=== PATIENT | female | born 1945 | race Caucasian/White ===

== ENCOUNTER 2023-07-28 00:15 | Inpatient (IN) | payer MEDICARE, BC, SELFPAY ==
[2023-07-28] VITALS (7 sets, daily range): BP systolic 127–172; BP diastolic 54–63; PULSE 64–74; RESP 16–18; TEMP 36.2–36.9; O2SAT 97–100; BMI 30.4
--- NOTE | 2023-07-28 00:38 | HP.PCM.HOS_ITS ---
HPI - General General Date of Admission: 07/28/23 Date of Service: 07/28/23 Chief Complaint: Cough, N/V, + COVID diagnosis HPI Narrative The patient is a 77 y/o F w/ PMHx: Chronic hyponatremia (prior rx ordered for sodium tablets but no obvious labs consistent with hyponatremia upon review of outside records thus unclear), Hypothyroidism, HLD, HTN, Anxiety and Depression who presents to the [facility] as a direct admission from [facility] on 07/28/23 w/ history of COVID symptom onset approximately 11 days prior with persistent cough nonproductive for at least a week with fatigue and malaise however the last 48 hours patient has had nausea, emesis, dizziness, lightheadedness especially with activity prompting eventual ED evaluation to be cautious. She notes she also had some mild loose stools, sore throat, muscle aches and chills but no fevers nor any headaches nor any significant alteration to taste or smell but did have a dry congestion. Patient presented to the outside facility [facility] ED on 07/27/2023 and work-up at outside ED included VS upon presentation initially notable for BP 194/68 but most recently included HR 68, RR 18, BP 133/71, 99% on RA, CBC with WBC 3.8, hemoglobin 13.3, MCV 80.7, platelet 282 without marked shift, high-sensitivity troponin 10.8, D-dimer 287, lipase 33, magnesium 1.4, CMP with sodium 119, potassium 3.5, chloride 82, BUN/creatinine 7/1.0, glucose 133, hepatic profile unremarkable, chest x-ray with slight cardiomegaly with no acute cardiopulmonary findings otherwise. From review of [facility] records patient had a COVID-19 positive result 07/24/2023. From review of [facility] records patient also with CMP with sodium on 07/16/2023 NA 134 and prior to this 03/21/2023 NA 136. In the ED patient administered 750 mL NS in the ED with repeat Na 119, additionally administered 40 mEq KCl, Magnesium 2 gm IV x 1, zofran 4 mg IV x 1, morphine 2 mg IV x 1 for BL LE leg cramps, tylenol 650 mg po x 1. Home medications per [facility] most recent records (unverified): Amlodipine 5 mg 1 p.o. daily Atorvastatin 20 mg p.o. daily Azelastine nasal spray 1 spray nightly as needed Biotin 1 tablet p.o. daily Caltrate 600 plus D oral tablet 1 tab p.o. twice daily Cyanocobalamin 1000 mcg per mill injection solution with 1 mL subcutaneous injection monthly Colace stool softener 100 mg oral capsule 1 p.o. twice daily as needed constipation Hydrochlorothiazide 25 mg p.o. daily Levothyroxine 112 mcg daily Meloxicam 15 mg oral tablet p.o. daily Olmesartan 40 mg p.o. daily Sertraline 50 mg tab 1 p.o. daily Sodium chloride 1000 mg oral tablets take 1 tablet p.o. daily except 2 tablets on Sunday, Sunday, Sunday [facility] Medical History Allergic rhinitis Anxiety and depression [place] disease Chronic hyponatremia COVID-19 History of endometrial biopsy HTN (hypertension) Hyperlipidemia Hypothyroidism Home Medications Valsartan/Hydrochlorothiazide [Diovan Hct 320-25 Mg Tablet] 1 tab PO DAILY 07/26/15 [History Last Taken 07/27/23] furosemide 20 mg tablet 20 mg PO DAILY 07/26/15 [History Last Taken 07/27/23] levothyroxine 88 mcg tablet 88 mcg PO DAILY 07/26/15 [History Last Taken 07/27/23] sertraline 25 mg tablet (Zoloft) 25 mg PO DAILY 07/26/15 [History Last Taken 07/27/23] amlodipine 5 mg tablet 5 mg PO DAILY bp 07/28/23 [History Last Taken 07/27/23] atorvastatin 20 mg tablet 20 mg PO DAILY hld 07/28/23 [History Last Taken 07/25/23] meclizine 12.5 mg tablet 12.5 mg PO TID PRN dizzy 07/28/23 [History Last Taken 07/27/23] meloxicam 15 mg tablet 15 mg PO DAILY pain 07/28/23 [History Last Taken 07/27/23] olmesartan 40 mg tablet 40 mg PO DAILY see 07/28/23 [History Last Taken Unknown] sodium chloride 1,000 mg soluble tablet 1,000 mg PO DAILY 07/28/23 [History Last Taken 07/27/23] Allergy/AdvReac Type Severity Reaction Status Date / Time propoxyphene HCl Allergy Nausea Verified 07/28/23 01:03 [From Darvon] codeine AdvReac Intermediate Nausea Verified 07/28/23 01:03 simvastatin AdvReac Intermediate Myalgia Verified 07/28/23 01:03 Family History (Updated 07/27/23 @ 23:[address] Madhavi Pate MD) Mother CVA (cerebral vascular accident) Father [place] disease Son Kimberlee disease Brother Heart disease Hypertension Daughter Lupus Sister Melanoma Surgical History H/O cone biopsy of cervix H/O dilation and curettage History of tonsillectomy Hx of myringotomy Hx of tubal ligation S/P thyroid biopsy Social History (Updated 07/27/23 @ 23:[address] Madhavi Pate MD) household members: spouse Smoking Status: Never smoker alcohol intake: never substance use type: does not use ROS ROS Narrative Admission Review of Systems: CONSTITUTIONAL: No weight loss, fever, + chills, weakness or fatigue. HEENT: + Congestion, sore throat. Eyes: No visual loss, blurred vision, double vision or yellow sclerae. Ears, Nose, Throat: No hearing loss, sneezing. SKIN: No rash or itching, lesions, wounds. CARDIOVASCULAR: No chest pain, chest pressure or chest discomfort, palpitations, edema, orthopnea, syncopal events. RESPIRATORY: + cough, No marked sputum, dyspnea, wheezing, hemoptysis. GASTROINTESTINAL: + anorexia, nausea, vomiting, diarrhea, No abdominal pain, melena, BRBPR. GENITOURINARY: No dysuria, frequency, urgency or retention. NEUROLOGICAL: + No dizziness/lightheadedness. No headache, syncope, paralysis, ataxia, numbness or tingling in the extremities, focal weakness, change in bowel or bladder control, seizure. MUSCULOSKELETAL: + muscle, back pain, joint pain or stiffness. HEMATOLOGIC: No anemia, bleeding or bruising. LYMPHATICS: No enlarged nodes. No history of splenectomy. PSYCHIATRIC: + history of depression or anxiety. ENDOCRINOLOGIC: No reports of sweating, cold or heat intolerance. No polyuria or polydipsia. ALLERGIES: + rhinitis. Physical Exam Narrative Physical Examination: General: Awake, alert, oriented x 3 and cooperative, seated upright in the MS bed, fatigued and ill-appearing, holding emesis bag. Skin: Normal color, normal turgor, no icterus, no cyanosis. HEENT: AT/NC, EOMI, PERRLA, dry MM, no carotid bruits or JVD noted. Lungs: Diffusely diminished, greater bases, increased respiratory rate, no rales, ronchi or wheezing. Heart: Regular rate with regular rhythm; no gallop, rub audible. Abdomen: Soft, obese, no obvious TTP, ND, distant hyperactive bowel sounds, no appreciated HSM. Extremities: No cyanosis, clubbing, or edema. Neurological: Patient awake, alert, oriented as noted, cognitive function intact; pupils equally reactive to light and accommodation, cranial nerves II- XII grossly normal, moving all 4 extremities, no focal deficits, strength moderately to severely global decrease secondary to acute presentation. Psychiatric: Affect appears fatigued, ill-appearing, no acute evidence of depressive or anxiety feelings but does have underlying history. Assessment & Plan Assessment/Plan (1) Hyponatremia: (2) COVID-19: PLAN: Plan The patient is a 77 y/o F w/ PMHx: Chronic hyponatremia (on chronic salt tablets per patient for the last 6 months at least), Hypothyroidism, HLD, HTN, Anxiety and Depression who presents to the [facility] as a direct admission from [facility] on 07/28/23 w/ history of COVID diagnosis approximately 10 days prior with persistent cough nonproductive for at least a week with fatigue and malaise however the last 48 hours patient has had nausea, emesis, dizziness, lighthead edness especially with activity prompting eventual ED evaluation to be cautious. #1. Acute Viral Syndrome, COVID-19 with intractable nausea, emesis, cough: Will admit to the MS telemetry, given timeline >10 days passed does not need to be on precautions however given ongoing symptoms will also obtain full respiratory panel to assure no additional viral illness contributing, currently appropriate on room air, PRN albuterol, HOB, IS parameters, will obtain D-dimer, procalcitonin, CRP, CPK, Ferritin, LDH, trop and BNP to be cautious, continue supportive care, judicious hydration, allow clears only, maintain on IV PPI until assure oral intake tolerated, closely monitor for worsening, given appropriate oxygentation no needed for steroids at this time and also given timeline not appropriate candidate for antivirals. #2. Acute Hyponatremia on Chronic, suspected hypovolemic component in addition to the fact patient with intractable N/V has not been taking her chronic salt tables: Admission Na 119, baseline appearance as noted 134-136 but she had been on chronic salt tablets with these levels, will add back her tablets once nausea/emesis improving, in interim will place on judicious IVFs, continue to closely monitor, although suspect etiology as noted will obtain FeNa, UOsm, if not improving low threshold to involve nephrology. #3. Hypomagnesia: Magnesium from outside facility 1.4, administered IV magnesium, repeat magnesium level in AM. #4. Hypothyroidism: We will continue patient on levothyroxine regimen, TSH and free T4 requested given hyponatremia presentation although suspected primarily hypovolemic etiology. #5. Hypertension: Continue home regimen including amlodipine, olmesartan, given hyponatremia we will hold hydrochlorothiazide with hydration as noted given suspected hypovolemic etiology, may add back once sodium is appropriate, PRN hydralazine. Patient also notes she is on diovan in addition. Given she is already on an ARB, this should be discontinued to avoid duplication. #6. Hyperlipidemia: We will continue patient on statin therapy. #7. Anxiety and depression: Patient is on very low-dose sertraline regimen, given significant hyponatremia although suspected hypovolemia will temporally hold as could be contributing. 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 #9. Allergic rhinitis: If needed may add patient azelastine nasal spray. #10. DVT prophylaxis: Lovenox. #11. CODE status: Patient NEAL is her son Dwain and living will is currently in place. Discussed CODE status at length including difference between FULL code, DNR-CCA and DNR-CC status. Following discussions about the differences in these status, requested DNR-CCA, no intubation status. Advanced Care Planning Face to Face Time: 16 minutes. Charges/Coding Visit Charges Inpatient E&M: 90075 Init Hosp L3 Procedures Hospitalists Procedures: 14457 Advncd Care Plan 30 Min
[2023-07-28] MEDS: proCHLORPERazine 10 MG/2 ML Vial 5 MG IV (00:54)
[2023-07-28] MEDS: 0.9% Normal Saline (1000mL) 1,000 ML 100 ML IV (01:20)
[2023-07-28] MEDS: Pantoprazole Sodium 40 MG in 0.9% Normal Saline (100mL MB+) 100 ML 330 MG IV ×3 (01:45→21:35)
[2023-07-28] MEDS: hydrALAZINE 20 MG/ML Vial 10 MG IV (01:45)
[2023-07-28] MEDS: 0.9% Saline Lock 10 ML Syringe IV (01:46)
[2023-07-28 02:15] LABS: Absolute Lymphocyte Count 0.52 X10^3/uL (0.83-4.51); Absolute Neutrophil Count 4.4 X10^3/uL (2.0-7.7); Basophil# 0.01 X10^3/uL; Basophil% 0.2 % (0-1); Eosinophil# 0.01 X10^3/uL; Eosinophils% 0.2 % (0-5); Hematocrit 38.7 % (37-47); Hemoglobin 13.8 g/dL (12.0-15.0); Lymphocyte # 0.52 X10^3/ul (0.83-4.51); Lymphocyte % 10.1 % (19-41); Mean Corp Hgb Conc 35.7 g/dL (32-36); Mean Corpuscular Hgb 28.5 pg (27.0-32.0); Mean Platelet Vol. 8.8 fl (6.2-12.0); Monocyte# 0.16 X10^3/uL; Monocyte% 3.1 % (0-10); NRBC Flagged by Analyzer 0 % (0-5); Neutrophil # 4.44 X10^3/uL (2.7-7.7); POSITIVE DIFFERENTIAL YES; Platelet Count 277 K/mm3 (150-450); RBC Distribution Width CV 11.5 % (11.6-14.6); RBC Distribution Width SD 33.4 fl (35.1-43.9); Red Blood Count 4.84 M/mm3 (4.2-5.4); White Blood Count 5.2 K/mm3 (4.4-11.0)
[2023-07-28 02:18] LABS: Differential Indicated SCAN CRITERIA MET
[2023-07-28 02:35] LABS: D-Dimer Quantitative (DVT/PE) 0.68 FEU/ug/m (0.27-0.49)
[2023-07-28 02:40] LABS: BNP,B-Type NATRIURETIC PEPTIDE 111.9 pg/mL (0-100); CPK Total, Creatine Kinase 229 U/L (26-192)
[2023-07-28 02:43] LABS: Differential Comment SCANNED
[2023-07-28 02:51] LABS: Anion Gap 10 (5-15); BUN 7 mg/dL (7-18); BUN/Creat Ratio 9.6 RATIO (10-20); CRP < 2.90 mg/L (0.0-3.0); Calcium,Total 8.7 mg/dL (8.5-10.1); Chloride 84 mmol/L (98-107); Creatinine, Serum 0.73 mg/dL (0.55-1.02); EST Glomerular Filtration Rate 82 mL/min (>60); Est Glom Filt Rate - Afr Amer 99 mL/min (>60); Estimated Creatinine Clearance 41.05 ml/min; Ferritin 316 ng/mL (8-252); Glucose 160 mg/dL (74-106); LDH 185 U/L (84-246); Potassium 2.9 mmol/L (3.5-5.1); Sodium Level 119 mmol/L (136-145); Troponin-I HS 28 pg/mL (3.0-54.0)
[2023-07-28 03:04] LABS: Procalcitonin < 0.01 ng/mL (0.00-0.09)
[2023-07-28] MEDS: Potassium Chloride 10mEq/100mL 10 MEQ/100 ML IV.SOLN. 100 MEQ IV BOLUS ×4 (04:08→09:06)
[2023-07-28] MEDS: Ondansetron 4 MG/2 ML Vial IV (04:14)
[2023-07-28] MEDS: Levothyroxine 112 MCG Tablet PO (04:14)
[2023-07-28] MEDS: Acetaminophen 325 MG Tablet 650 MG PO (04:15)
[2023-07-28] MEDS: Sodium Chloride 1 GM Tablet PO ×2 (04:15→09:12)
[2023-07-28 07:03] LABS: Urine Sodium 98 mmol/L (Not Establ.)
[2023-07-28 07:19] LABS: AST(SGOT) 28 U/L (15-37); Alanine Aminotransfer ALT/SGPT 23 U/L (13-56); Albumin, Serum 3.8 g/dL (3.2-5.0); Alkaline Phosphatase 68 U/L (45-117); Anion Gap 11 (5-15); BUN 8 mg/dL (7-18); BUN/Creat Ratio 9.5 RATIO (10-20); Bilirubin, Direct 0.19 mg/dL (0.00-0.30); Calcium,Total 8.3 mg/dL (8.5-10.1); Chloride 85 mmol/L (98-107); Creatinine, Serum 0.84 mg/dL (0.55-1.02); EST Glomerular Filtration Rate 69 mL/min (>60); Est Glom Filt Rate - Afr Amer 84 mL/min (>60); Estimated Creatinine Clearance 48.87 ml/min; Globulin 3.2 g/dL (2.2-4.2); Glucose 154 mg/dL (74-106); Magnesium 2.1 mg/dL (1.6-2.6); Potassium 3.1 mmol/L (3.5-5.1); Sodium Level 121 mmol/L (136-145); T4 Free Direct 1.31 ng/dL (0.76-1.46); Thyroid Stim Hormone (TSH) 0.55 uIU/mL (0.358-3.74)
--- NOTE | 2023-07-28 07:30 | PCM.PN.HOSP ---
Reason for Visit Reason for Visit: Diagnoses Hypo-osmolality and hyponatremia (07/28/23) COVID-19 (07/28/23) Subjective Subjective Follow-up for COVID-19 and hyponatremia Objective Data Objective Data Vital Signs: Vital Signs Temp Pulse Resp BP Pulse Ox O2 Del Method O2 Flow Rate 98 F 74 16 127/56 H 100 Nasal Cannula 2 07/28/23 04:06 07/28/23 04:06 07/28/23 04:06 07/28/23 04:06 07/28/23 04:06 07/28/23 04:06 07/28/23 04:06 Oxygen Flow Rate (L/min) 2 Oxygen Delivery Method Nasal Cannula Weight: 182 lb 15.739 oz Body Mass Index (BMI) 30.4 Intake & Output: Intake and Output for Last 24 Hours 07/26/23 07/27/23 07/28/23 23:59 23:59 23:59 Intake Total 321.67 / 321.67 Output Total 1570 / 1570 Balance -1248.33 / -1248.33 Lab / Micro Data 07/28/23 01:50 07/28/23 10:25 Labs: Laboratory Results - last 24 hr 07/28/23 01:50: WBC 5.2, RBC 4.84, Hgb 13.8, Hct 38.7, MCV 80.0 L, MCH 28.5, MCHC 35.7, RDW Std Deviation 33.4 L, RDW Coeff of Alejo 11.5 L, Plt Count 277, MPV 8.8, Immature Gran % (Auto) 0.400, Neut % (Auto) 86.0 H, Lymph % (Auto) 10.1 L, [place]ard % (Auto) 3.1, Eos % (Auto) 0.2, Baso % (Auto) 0.2, Absolute Neuts (auto) 4.4, Absolute Lymphs (auto) 0.52 L, Nucleated RBC % 0, Differential Comment SCANNED, D-Dimer Quant (PE/DVT) 0.68 H*, Sodium 119 L*, Potassium 2.9 L, Chloride 84 L, Carbon Dioxide 25.0, Anion Gap 10, BUN 7, Creatinine 0.73, Estim Creat Clear Calc 41.05, Est GFR (MDRD) Af Amer 99, Est GFR (MDRD) Non-Af 82, BUN/Creatinine Ratio 9.6 L, Glucose 160 H, Calcium 8.7, Ferritin 316 H, Lactate Dehydrogenase 185, Total Creatine Kinase 229 H, Troponin I High Sens 28, C-React Prot Ext Range < 2.90, B-Natriuretic Peptide 111.9 H, Procalcitonin < 0.01 07/28/23 05:45: Sodium 121 L, Potassium 3.1 L, Chloride 85 L, Carbon Dioxide 25.0, Anion Gap 11, BUN 8, Creatinine 0.84, Estim Creat Clear Calc 48.87, Est GFR (MDRD) Af Amer 84, Est GFR (MDRD) Non-Af 69, BUN/Creatinine Ratio 9.5 L, Glucose 154 H, Calcium 8.3 L, Magnesium 2.1, Total Bilirubin 0.60, Direct Bilirubin 0.19, AST 28, ALT 23, Alkaline Phosphatase 68, Total Protein 7.0, Albumin 3.8, Globulin 3.2, TSH 0.55, Free T4 1.31 07/28/23 06:35: Ur Random Sodium 98, Urine Creatinine 37.70 Micro: Microbiology 07/28/23 02:12 Mucosa - Nasopharyngeal Respiratory Panel (PCR) - Final Physical Exam Narrative Seen and examined. Patient stated she had symptoms of runny nose, sore throat that started last Sunday about a week ago and then nasal swab probably COVID-19 antigen tested positive on 07/24 for COVID. She had regular and booster vaccine for COVID-19. Currently patient denies sore throat or runny nose but has mild cough. Respiratory panel negative. No shortness of breath. Patient also on sodium tablet at home. She had hyponatremia in summer this year and was started on sodium tablets by PCP. 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 Physical exam General: Alert, Oriented x3, Cooperative HEENT: Atraumatic, PERRLA, EOMI, Normocephalic Oral: Oral mucosa dry. No Gingival or Mucosal Lesions/ Ulcerations Neck: Supple, No JVD, Negative Carotid Bruits Lungs: Air entry diminished in bilateral lung bases. No crepitation/rhonchi Cardiovascular: Regular rate, Regular Rhythm, Normal S1, Normal S2, No murmurs Abdomen: Bowel Sounds Present, Soft, Non Tender, Non-Distended : No renal angle tenderness. No suprapubic tenderness. Extremities: No edema, Capillary Refill Less than 3 Seconds Skin: No rashes, No breakdown Musculoskeletal: No Tenderness to Palpation of Joints or Extremities. ROM full. Degenerative arthritis of knees. Neurological: Cranial nerves II-XII grossly intact, DTR 2+/4. No acute focal neurological deficit. Psych/Mental Status: Flat affect. Assessment & Plan Assessment/Plan (1) Hyponatremia: (2) COVID-19: PLAN: Plan The patient is a 77 y female who was directly admitted on MedSurg floor from [facility] on 07/28/23 admitted with persistent cough nonproductive for at least a week with fatigue and malaise however the last 48 hours patient has had nausea, emesis, dizziness, lightheadedness especially with activity prompting eventual ED evaluation to be cautious. #1. Acute Viral Syndrome, COVID-19 with intractable nausea, emesis, cough: At this time, time of onset of COVID symptoms is doubtful but patient states it is started last weekend therefore probably 7 days ago. COVID-19 PCR ordered. Patient currently 100% on room air heart rate and blood pressure within acceptable limit no fever therefore I do not think patient needs dexamethasone or remdesivir. #2. Subacute severe hyponatremia with history of chronic hyponatremia on sodium tablets: Admission Na 119, baseline appearance as noted 134-136 but she had been on chronic salt tablets with these levels . Patient on sodium tablets. Serum sodium is gradually coming up 119-120. Anion gap 10 BUN/creatinine normal. TSH and free T4 normal.We will order cortisol level. Urine sodium 98 creatinine 37.7. Associated hypokalemia. Potassium replacement was given repeat serum potassium normal. Toll Lineman consulted. #3. Hypomagnesia: Magnesium from outside facility 1.4, administered IV magnesium, repeat magnesium level in 2.1. #4. Hypothyroidism: TSH and free T4 are normal in range. Although TSH 0.55 is in low normal range #5. Hypertension: Continue home regimen including amlodipine, olmesartan. HCTZ held because of hyponatremia. #6. Hyperlipidemia: We will continue patient on statin therapy. #7. Anxiety and depression: Patient is on very low-dose sertraline regimen, given significant hyponatremia although suspected hypovolemia will temporally hold as could be contributing. 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 #9. Allergic rhinitis: If needed may add patient azelastine nasal spray. #10. DVT prophylaxis: Lovenox. #11. CODE status: Patient NEAL is her son Dwain and living will is currently in place. Discussed CODE status at length including difference between FULL code, DNR-CCA and DNR-CC status. Following discussions about the differences in these status, requested DNR-CCA, no intubation status. Charges/Coding Visit Charges Inpatient E&M: 03250 Subs Hosp L2
[2023-07-28] MEDS: amLODIPine 5 MG Tablet PO (09:10)
[2023-07-28] MEDS: Losartan Potassium 100 MG Tablet PO (09:11)
[2023-07-28] MEDS: Enoxaparin 30 MG/0.3 ML Syringe SC ×2 (09:11→21:35)
[2023-07-28 09:36] LABS: Osmolality, Urine 366 mOsm/KG
[2023-07-28 10:52] LABS: Anion Gap 12 (5-15); BUN 9 mg/dL (7-18); BUN/Creat Ratio 12.2 RATIO (10-20); Calcium,Total 8.2 mg/dL (8.5-10.1); Chloride 86 mmol/L (98-107); Creatinine, Serum 0.74 mg/dL (0.55-1.02); EST Glomerular Filtration Rate 80 mL/min (>60); Est Glom Filt Rate - Afr Amer 97 mL/min (>60); Estimated Creatinine Clearance 41.05 ml/min; Glucose 137 mg/dL (74-106); Sodium Level 120 mmol/L (136-145)
[2023-07-28] MEDS: guaiFENesin/D-Methorphan TAB.SR.12H 2 TABLET PO ×2 (12:54→21:34)
[2023-07-28] MEDS: 0.9% Normal Saline (1000mL) 1,000 ML 75 ML IV (12:55)
--- NOTE | 2023-07-28 13:05 | CON.PCM.RE_ITS ---
Assessment & Plan Assessment/Plan (1) Hyponatremia: PLAN: Severe hyponatremia with a sodium of about 120. Reviewed notes from Dr. Pate, admitting hospitalist, as per [facility] her sodium values were close to normal. She was started on salt tablets sometime this summer by primary care physician. I am not sure if hyponatremia work-up was done. She is also on thiazide which could potentially cause hyponatremia. Acute worsening of hyponatremia seems to be volume depletion in the setting of COVID-pneumonia. Urine sodium is high, urine osmolality more than 100. Interpreting these labs would be difficult given that she was on thiazide prior to admission. Clinically she looks hypovolemic. Continue low-dose IV fluids. Will increase salt tablets dosing. Orders placed HPI Consult Data Date of Consult: 07/28/23 HPI Narrative Reason for Consultation: Hyponatremia HPI Narrative: JERO LAYNE, is a 77 F who presents to the hospital with generalized weakness. Nephrology on consultation due to hyponatremia. She was recently diagnosed with COVID about 10 days ago. Since then she has been having generalized weakness, poor appetite, nausea. Presented to the hospital with above complaints and was found to be having severe hyponatremia. She tells me that she was told that she had low sodium about 3 to 4 months ago. Was prescribed salt tablets by primary care physician. Did not see nephrology at that time. Reviewed her medication list, she is on hydrochlorothiazide. She thinks that she has been on thiazide for about a year or so. No other psychotropic medications. No significant weight loss or gain recently. No significant edema. [facility] Medical History Allergic rhinitis Anxiety and depression [place] disease Chronic hyponatremia COVID-19 History of endometrial biopsy HTN (hypertension) Hyperlipidemia Hypothyroidism Home Medications Valsartan/Hydrochlorothiazide [Diovan Hct 320-25 Mg Tablet] 1 tab PO DAILY 07/26/15 [History Last Taken 07/27/23] furosemide 20 mg tablet 20 mg PO DAILY 07/26/15 [History Last Taken 07/27/23] sertraline 25 mg tablet (Zoloft) 25 mg PO DAILY 07/26/15 [History Last Taken 07/27/23] amlodipine 5 mg tablet 5 mg PO DAILY bp 07/28/23 [History Last Taken 07/27/23] atorvastatin 20 mg tablet 20 mg PO DAILY hld 07/28/23 [History Last Taken 10/16] levothyroxine 112 mcg tablet 112 mcg PO DAILY thyroid 07/28/23 [History Last Taken 07/27/23] meclizine 12.5 mg tablet 12.5 mg PO TID PRN dizzy 07/28/23 [History Last Taken 07/27/23] meloxicam 15 mg tablet 15 mg PO DAILY pain 07/28/23 [History Last Taken 07/27/23] olmesartan 40 mg tablet 40 mg PO DAILY see md 07/28/23 [History Last Taken Unknown] sodium chloride 1,000 mg soluble tablet 1,000 mg PO DAILY 07/28/23 [History Last Taken 07/27/23] Allergy/AdvReac Type Severity Reaction Status Date / Time propoxyphene HCl Allergy Nausea Verified 07/28/23 01:03 [From Darvon] codeine AdvReac Intermediate Nausea Verified 07/28/23 01:03 simvastatin AdvReac Intermediate Myalgia Verified 07/28/23 01:03 Family History (Updated 07/27/23 @ 23:[address] Madhavi Pate MD) Mother CVA (cerebral vascular accident) Father Kimberlee disease Son Kimberlee disease Brother Heart disease Hypertension Daughter Lupus Sister Melanoma Surgical History H/O cone biopsy of cervix H/O dilation and curettage History of tonsillectomy Hx of myringotomy Hx of tubal ligation S/P thyroid biopsy Social History (Updated 07/27/23 @ 23:[address] Madhavi Pate MD) household members: spouse Smoking Status: Never smoker alcohol intake: never substance use type: does not use ROS ROS Narrative Negative except above Physical Exam Narrative Alert awake oriented x 3 no obvious distress no pallor no icterus no JVD s1s2 no murmurs lungs clear abdomen soft no organomegaly no edema no cyanosis Lab / Micro Data 07/28/23 01:50 07/28/23 10:25 Labs: Laboratory Results - last 24 hr 07/28/23 01:50: WBC 5.2, RBC 4.84, Hgb 13.8, Hct 38.7, MCV 80.0 L, MCH 28.5, MCHC 35.7, RDW Std Deviation 33.4 L, RDW Coeff of Alejo 11.5 L, Plt Count 277, MPV 8.8, Immature Gran % (Auto) 0.400, Neut % (Auto) 86.0 H, Lymph % (Auto) 10.1 L, [place] % (Auto) 3.1, Eos % (Auto) 0.2, Baso % (Auto) 0.2, Absolute Neuts (auto) 4.4, Absolute Lymphs (auto) 0.52 L, Nucleated RBC % 0, Differential Comment SCANNED, D-Dimer Quant (PE/DVT) 0.68 H*, Sodium 119 L*, Potassium 2.9 L, Chloride 84 L, Carbon Dioxide 25.0, Anion Gap 10, BUN 7, Creatinine 0.73, Estim Creat Clear Calc 41.05, Est GFR (MDRD) Af Amer 99, Est GFR (MDRD) Non-Af 82, BUN/Creatinine Ratio 9.6 L, Glucose 160 H, Calcium 8.7, Ferritin 316 H, Lactate Dehydrogenase 185, Total Creatine Kinase 229 H, Troponin I High Sens 28, C-React Prot Ext Range < 2.90, B-Natriuretic Peptide 111.9 H, Procalcitonin < 0.01 07/28/23 05:45: Sodium 121 L, Potassium 3.1 L, Chloride 85 L, Carbon Dioxide 25.0, Anion Gap 11, BUN 8, Creatinine 0.84, Estim Creat Clear Calc 48.87, Est GFR (MDRD) Af Amer 84, Est GFR (MDRD) Non-Af 69, BUN/Creatinine Ratio 9.5 L, Glucose 154 H, Calcium 8.3 L, Magnesium 2.1, Total Bilirubin 0.60, Direct Bilirubin 0.19, AST 28, ALT 23, Alkaline Phosphatase 68, Total Protein 7.0, Albumin 3.8, Globulin 3.2, TSH 0.55, Free T4 1.31 07/28/23 06:35: Urine Osmolality 366, Ur Random Sodium 98, Urine Creatinine 37.70 07/28/23 10:25: Sodium 120 L, Potassium 4.0, Chloride 86 L, Carbon Dioxide 22.0, Anion Gap 12, BUN 9, Creatinine 0.74, Estim Creat Clear Calc 41.05, Est GFR (MDRD) Af Amer 97, Est GFR (MDRD) Non-Af 80, BUN/Creatinine Ratio 12.2, Glucose 137 H, Calcium 8.2 L Micro: Microbiology 07/28/23 02:12 Mucosa - Nasopharyngeal Respiratory Panel (PCR) - Final
[2023-07-28] MEDS: Sodium Chloride 1 GM Tablet 2 GM PO ×2 (14:42→21:34)
[2023-07-28 15:36] LABS: Sodium Level 120 mmol/L (136-145)
[2023-07-28 19:47] LABS: Sodium Level 120 mmol/L (136-145)
[2023-07-28] MEDS: Atorvastatin Calcium 20 MG Tablet PO (21:34)
[2023-07-28 23:04] LABS: Sodium Level 122 mmol/L (136-145)
[2023-07-29] MEDS: 0.9% Normal Saline (1000mL) 1,000 ML 75 ML IV (01:41)
[2023-07-29 02:15] VITALS: BP 138/56; PULSE 68; RESP 18; TEMP 36.6; O2SAT 99
[2023-07-29 06:00] VITALS: BMI 30.8
[2023-07-29] MEDS: Levothyroxine 112 MCG Tablet PO (06:05)
[2023-07-29] MEDS: Sodium Chloride 1 GM Tablet 2 GM PO ×3 (06:06→22:41)
[2023-07-29 08:00] VITALS: BP 131/60; PULSE 71; RESP 18; TEMP 37.2; O2SAT 99
--- NOTE | 2023-07-29 08:25 | PN.HOSP_ITS ---
Subjective Subjective Normal doing well, no issues overnight. Denies any shortness of breath. Objective Data Objective Data Vital Signs: Vital Signs Temp Pulse Resp BP Pulse Ox O2 Del Method O2 Flow Rate 97.9 F 68 18 138/56 H 99 Nasal Cannula 2 07/29/23 02:15 07/29/23 02:15 07/29/23 02:15 07/29/23 02:15 07/29/23 02:15 07/29/23 07:25 07/29/23 07:25 Oxygen Flow Rate (L/min) 2 Oxygen Delivery Method Nasal Cannula Weight: 184 lb 15.485 oz Body Mass Index (BMI) 30.8 Intake & Output: Intake and Output for Last 24 Hours 07/28/23 07/29/23 07/30/23 04:59 03:59 03:59 Intake Total Output Total Balance Lab / Micro Data 07/28/23 01:50 07/28/23 22:45 Labs: Laboratory Results - last 24 hr 07/28/23 06:35: Urine Osmolality 366 07/28/23 10:25: Sodium 120 L, Potassium 4.0, Chloride 86 L, Carbon Dioxide 22.0, Anion Gap 12, BUN 9, Creatinine 0.74, Estim Creat Clear Calc 41.05, Est GFR (MDRD) Af Amer 97, Est GFR (MDRD) Non-Af 80, BUN/Creatinine Ratio 12.2, Glucose 137 H, Calcium 8.2 L 07/28/23 14:56: Sodium 120 L 07/28/23 19:32: Sodium 120 L 07/28/23 22:45: Sodium 122 L Micro: Microbiology 07/28/23 12:56 Mucosa - Nose Coronavirus COVID-19 PCR - Final SARS-CoV-2 (COVID 19 PCR) 07/28/23 02:12 Mucosa - Nasopharyngeal Respiratory Panel (PCR) - Final Physical Exam Narrative General: Alert, Oriented x3, Cooperative, No apparent distress HEENT: Atraumatic, PERRLA, EOMI, Normocephalic Oral: Moist Mucosa Neck: Supple, No JVD Lungs: Diminished, Normal air movement, No rhonchi, No wheeze, No rales Cardiovascular: Regular rate, Regular Rhythm, Normal S1, Normal S2, No murmurs Abdomen: Soft, Non Tender, Non-Distended, No Hepato-splenomegaly Extremities: No edema, Capillary Refill Less than 3 Seconds Skin: No rashes, No breakdown Musculoskeletal: No Tenderness to Palpation of Joints or Extremities Neurological: Cranial nerves II-XII grossly intact, Motor Exam 5/5 strength throughout, Sensory exam intact to light touch and pain Psych/Mental Status: Flat Assessment & Plan Assessment/Plan (1) Hyponatremia: (2) COVID-19: PLAN: Plan #1. Acute Viral Syndrome, COVID-19 with intractable nausea, emesis, cough: At this time, time of onset of COVID symptoms is doubtful but patient states it is started last weekend therefore probably 7 days ago. COVID-19 PCR ordered. Patient currently 100% on room air heart rate and blood pressure within acceptable limit no fever therefore I do not think patient needs dexamethasone or remdesivir. 07/29/2023: No change, she wears her baseline oxygen at night no shortness of breath no cough we will continue to monitor COVID and if she worsens can start her on Decadron if necessary #2. Subacute severe hyponatremia with history of chronic hyponatremia on sodium tablets: Admission Na 119, baseline appearance as noted 134-136 but she had been on chronic salt tablets with these levels . Patient on sodium tablets. Serum sodium is gradually coming up 119-120. Anion gap 10 BUN/creatinine normal. TSH and free T4 normal.We will order cortisol level. Urine sodium 98 creatinine 37.7. Associated hypokalemia. Potassium replacement was given repeat serum potassium normal. Barrel Drum Cutter consulted. 07/29/2023: Awaiting lab work today, she will need to follow-up with nephrology as an outpatient and will need to discontinue her hydrochlorothiazide that is on her home med list. #3. Hypomagnesia: Magnesium from outside facility 1.4, administered IV magnesi um, repeat magnesium level in 2.1. #4. Hypothyroidism: TSH and free T4 are normal in range. Although TSH 0.55 is in low normal range #5. Hypertension: Continue home regimen including amlodipine, olmesartan. HCTZ held because of hyponatremia. #6. Hyperlipidemia: We will continue patient on statin therapy. #7. Anxiety and depression: Patient is on very low-dose sertraline regimen, given significant hyponatremia although suspected hypovolemia will temporally hold as could be contributing. #8. 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 #9. Allergic rhinitis: If needed may add patient azelastine nasal spray. DVT: Lovenox Charges/Coding Visit Charges Inpatient E&M: 82687 Subs Hosp L2
[2023-07-29] MEDS: Pantoprazole Sodium 40 MG in 0.9% Normal Saline (100mL MB+) 100 ML 330 MG IV (09:15)
[2023-07-29] MEDS: Enoxaparin 30 MG/0.3 ML Syringe SC ×2 (09:33→22:41)
[2023-07-29] MEDS: guaiFENesin/D-Methorphan TAB.SR.12H 2 TABLET PO ×2 (09:33→22:42)
[2023-07-29 09:34] LABS: Anion Gap 9 (5-15); BUN 8 mg/dL (7-18); Calcium,Total 8.1 mg/dL (8.5-10.1); Chloride 97 mmol/L (98-107); Creatinine, Serum 0.62 mg/dL (0.55-1.02); EST Glomerular Filtration Rate 99 mL/min (>60); Est Glom Filt Rate - Afr Amer 120 mL/min (>60); Estimated Creatinine Clearance 41.05 ml/min; Glucose 89 mg/dL (74-106); Potassium 3.6 mmol/L (3.5-5.1); Sodium Level 128 mmol/L (136-145)
[2023-07-29] MEDS: amLODIPine 5 MG Tablet PO (09:34)
[2023-07-29] MEDS: Losartan Potassium 100 MG Tablet PO (09:34)
[2023-07-29 14:00] VITALS: RESP 18
[2023-07-29 16:15] VITALS: BP 134/88; PULSE 88; RESP 18; TEMP 36.7; O2SAT 99
[2023-07-29] MEDS: Pantoprazole Sodium 40 MG Tablet PO (22:41)
[2023-07-29] MEDS: Atorvastatin Calcium 20 MG Tablet PO (22:41)
[2023-07-29 22:51] VITALS: BP 145/65; PULSE 65; RESP 18; TEMP 36.6; O2SAT 100
[2023-07-30] VITALS (8 sets, daily range): BP systolic 129–144; BP diastolic 46–58; PULSE 51–68; RESP 16–18; TEMP 36.4–36.7; O2SAT 98–100; BMI 30.8
[2023-07-30] MEDS: Sodium Chloride 1 GM Tablet 2 GM PO ×3 (05:54→21:27)
[2023-07-30] MEDS: Levothyroxine 112 MCG Tablet PO (05:55)
[2023-07-30 07:28] LABS: Anion Gap 8 (5-15); BUN 8 mg/dL (7-18); BUN/Creat Ratio 13.4 RATIO (10-20); Calcium,Total 8.2 mg/dL (8.5-10.1); Chloride 101 mmol/L (98-107); EST Glomerular Filtration Rate 103 mL/min (>60); Est Glom Filt Rate - Afr Amer 125 mL/min (>60); Estimated Creatinine Clearance 41.05 ml/min; Glucose 86 mg/dL (74-106); Potassium 3.2 mmol/L (3.5-5.1); Sodium Level 132 mmol/L (136-145)
[2023-07-30] MEDS: Potassium Chloride Oral Tablet 20 MEQ 40 MEQ PO (09:22)
[2023-07-30] MEDS: Ensure Plus High Protein 120 ML LIQUID PO (09:22)
[2023-07-30] MEDS: guaiFENesin/D-Methorphan TAB.SR.12H 2 TABLET PO ×2 (09:25→21:27)
[2023-07-30] MEDS: Pantoprazole Sodium 40 MG Tablet PO ×2 (09:26→21:27)
[2023-07-30] MEDS: amLODIPine 5 MG Tablet PO (09:26)
[2023-07-30] MEDS: Losartan Potassium 100 MG Tablet PO (09:26)
[2023-07-30] MEDS: Acetaminophen 325 MG Tablet 650 MG PO ×2 (09:26→21:27)
[2023-07-30] MEDS: Enoxaparin 30 MG/0.3 ML Syringe SC ×2 (09:26→21:27)
--- NOTE | 2023-07-30 13:05 | CASEMGMT ---
WALLY VOGEL Assessment: Face to Face with pt for initial transition planning/care coordination assessment. WALLY VOGEL introduced self and role at [facility], pt voices understanding and consents to assessment. Pt. is sitting up in chair. Pt is A&O x4 and answers all questions appropriately at this time. Care providers, pharmacy, and demographics verified/updated. Admitting Dx: Hyponatremia, COVID PCP: [facility] Specialists: Baltazar (Creative Consultant). Pt. states at this time she is unsure of she has any other specialists. [facility]erred [facility]acy[facility] Insurance: [facility] A & B Prescription Benefit: yes LNOK: Dwain Lewis (son) Living Will/HCPOA: Yes and Yes. Pt. states she thinks her son, Dwain, is her HCPOA. Living Arrangements: Pt lives home alone in a 2 story house: bedroom and bath upstairs, kitchen on FF. 4 steps w/railing to enter and several staircases with 12 steps and a railing throughout the home. Prior to this admission pt. states she had to take the stairs slowly and one at a time d/t pain in her knee (also used the railing). Pt. states she is I in all ADLs/IADLs except that she often buys pre-made meals at the grocery store. Transportation: Pt. states she drives herself to get groceries and her son drives her for appts. that are further away. DME: Raised toilet seat, cane (doesn't use), crutches (doesn't use), grab bars, states her daughter is assisting her with getting a medical alert system this spring, wears 2 lpm via [employer] oxygen HS (via [email or web address]). HHC/SNF: Denies previous HHC or SNF. Pt states she is concerned to go home alone at this point d/t the vertigo she experiences. Pt. states she feels she may need a SNF. Pt states no further concerns/needs. CM to follow. Advised pt to ask CM if any further question/concerns/needs arise, voices understanding. Pt Goal: SNF unless she would improve prior to D/C. Pt. states she needed help form therapy to stand up today but then walked on her own to the bathroom. Plan: TBD, Follow PT/OT. Pt. states she is concerned to be home alone d/t her vertigo. States she does have children who she thinks would alternate in coming to help take cre of her.
--- NOTE | 2023-07-30 14:35 | CASEMGMT ---
[facility] who verified that pt's oxygen DME company is [employer] and her most recent order is for 2 LPM HS.
--- NOTE | 2023-07-30 16:44 | CASEMGMT ---
Discharge Planning A list of SNF providers including quality and resource use data and consistent with the patient's preferred geographic region, medical needs, and insurance network was created in CarePort Guide.? This list was provided to the [facility]. Meredith Lanza Discharge Planning Asst
--- NOTE | 2023-07-30 16:58 | PCM.PN.HOSP ---
Reason for Visit Reason for Visit: Diagnoses Hypo-osmolality and hyponatremia (07/28/23) COVID-19 (07/28/23) Subjective Subjective Patient reports feeling weak and still has her unsteadiness and does not feel safe to go home as she lives alone has multilevel house. Would like to pursue placement Objective Data Objective Data Vital Signs: Vital Signs Temp Pulse Resp BP Pulse Ox O2 Del Method O2 Flow Rate 98.1 F 64 16 131/50 H 100 Room Air 2 07/30/23 15:32 07/30/23 15:54 07/30/23 15:32 07/30/23 15:32 07/30/23 15:32 07/30/23 15:32 07/29/23 22:51 Oxygen Flow Rate (L/min) 2 Oxygen Delivery Method Room Air Weight: 84 kg Body Mass Index (BMI) 30.8 Intake & Output: Intake and Output for Last 24 Hours 07/29/23 07/29/23 07/30/23 00:59 23:59 23:59 Intake Total 400 / 400 Output Total Balance 400 / 400 Lab / Micro Data 07/28/23 01:50 07/30/23 05:25 Labs: Laboratory Results - last 24 hr 07/29/23 08:00: Cortisol 25.40 H 07/30/23 05:25: Sodium 132 L, Potassium 3.2 L, Chloride 101, Carbon Dioxide 23.0, Anion Gap 8, BUN 8, Creatinine 0.60, Estim Creat Clear Calc 41.05, Est GFR (MDRD) Af Amer 125, Est GFR (MDRD) Non-Af 103, BUN/Creatinine Ratio 13.4, Glucose 86, Calcium 8.2 L Micro: Microbiology 07/28/23 12:56 Mucosa - Nose Coronavirus COVID-19 PCR - Final SARS-CoV-2 (COVID 19 PCR) 07/28/23 02:12 Mucosa - Nasopharyngeal Respiratory Panel (PCR) - Final Physical Exam Narrative General: Alert, oriented HEENT: Atraumatic, normocephalic Eyes: Anicteric, normal conjunctiva, extraocular movements grossly intact Neck: Supple Respiratory: Clear to auscultation bilaterally, normal respiratory effort Cardiovascular: Regular rate and rhythm GI: Soft, nontender, nondistended Extremities: No edema Musculoskeletal: Moving all extremities Neuro: No overt focal neurological deficits Skin: No rashes appreciated Psych: Cooperative Assessment & Plan Assessment/Plan (1) Hyponatremia: (2) COVID-19: PLAN: Plan #1. Acute Viral Syndrome, COVID-19 with intractable nausea, emesis, cough: At this time, time of onset of COVID symptoms is doubtful but patient states it is started last weekend therefore probably 7 days ago. COVID-19 PCR ordered. Patient currently 100% on room air heart rate and blood pressure within acceptable limit no fever therefore I do not think patient needs dexamethasone or remdesivir. 07/29/2023: No change, she wears her baseline oxygen at night no shortness of breath no cough we will continue to monitor COVID and if she worsens can start her on Decadron if necessary -07/30: Do not feel patient requires Decadron at this time, continue present management #2. Subacute severe hyponatremia with history of chronic hyponatremia on sodium tablets: Admission Na 119, baseline appearance as noted 134-136 but she had been on chronic salt tablets with these levels . Patient on sodium tablets. Serum sodium is gradually coming up 119-120. Anion gap 10 BUN/creatinine normal. TSH and free T4 normal.We will order cortisol level. Urine sodium 98 creatinine 37.7. Associated hypokalemia. Potassium replacement was given repeat serum potassium normal. Wheelchair Rental Clerk consulted. 07/29/2023: Awaiting lab work today, she will need to follow-up with nephrology as an outpatient and will need to discontinue her hydrochlorothiazide that is on her home med list. -07/30: Continues to improve, has been on sodium tabs, her HCTZ the, Zoloft, Lasix have been held. Discussed with nephrology and patient okay for discharge from medical standpoint. On discharge her salt tabs will go down to 1 g twice daily and her Lasix and thiazide will continue to be held. Patient feels somewhat weak overall and does not feel safe to go home, pursuing placement #3. Hypomagnesia: Magnesium from outside facility 1.4, administered IV magnesium, repeat magnesium level in 2.1. #4. Hypothyroidism: TSH and free T4 are normal in range. Although TSH 0.55 is in low normal range #5. Hypertension: Continue home regimen including amlodipine, olmesartan. HCTZ held because of hyponatremia. #6. Hyperlipidemia: We will continue patient on statin therapy. #7. Anxiety and depression: Patient is on very low-dose sertraline regimen, given significant hyponatremia although suspected hypovolemia will temporally hold as could be contributing. #8. 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 #9. Allergic rhinitis: If needed may add patient azelastine nasal spray. DVT: Lovenox Time spent in the patient's overall evaluation,decision-making process, review of diagnostic data, adjustment of management, discussion with other providers, nursing nursing and ancillary staff involved in patient's care documentation, 37 minutes Charges/Coding Visit Charges Inpatient E&M: 39257 Subs Hosp L2
[2023-07-30] MEDS: Atorvastatin Calcium 20 MG Tablet PO (21:27)
[2023-07-31] MEDS: Sodium Chloride 1 GM Tablet 2 GM PO ×2 (05:39→13:53)
[2023-07-31] MEDS: Levothyroxine 112 MCG Tablet PO (05:39)
[2023-07-31 05:40] VITALS: BP 157/64; PULSE 64; RESP 16; TEMP 36.6; O2SAT 100
[2023-07-31 05:44] VITALS: BMI 30.7
[2023-07-31 07:36] LABS: Absolute Lymphocyte Count 1.03 X10^3/uL (0.83-4.51); Absolute Neutrophil Count 3.3 X10^3/uL (2.0-7.7); Basophil# 0.02 X10^3/uL; Basophil% 0.4 % (0-1); Eosinophil# 0.11 X10^3/uL; Eosinophils% 2.2 % (0-5); Hematocrit 36.4 % (37-47); Hemoglobin 12.1 g/dL (12.0-15.0); Lymphocyte # 1.03 X10^3/ul (0.83-4.51); Mean Corp Hgb Conc 33.2 g/dL (32-36); Mean Corpuscular Hgb 28.1 pg (27.0-32.0); Mean Corpuscular Volume 84.7 fL (81-99); Mean Platelet Vol. 9.8 fl (6.2-12.0); Monocyte# 0.42 X10^3/uL; Monocyte% 8.6 % (0-10); NRBC Flagged by Analyzer 0 % (0-5); Neutrophil % 67.4 % (47-70); Platelet Count 274 K/mm3 (150-450); RBC Distribution Width CV 12.3 % (11.6-14.6); RBC Distribution Width SD 37.4 fl (35.1-43.9); White Blood Count 4.9 K/mm3 (4.4-11.0)
[2023-07-31 08:01] LABS: Anion Gap 6 (5-15); BUN 8 mg/dL (7-18); BUN/Creat Ratio 13.2 RATIO (10-20); Calcium,Total 8.3 mg/dL (8.5-10.1); Chloride 102 mmol/L (98-107); EST Glomerular Filtration Rate 101 mL/min (>60); Est Glom Filt Rate - Afr Amer 123 mL/min (>60); Estimated Creatinine Clearance 41.05 ml/min; Glucose 94 mg/dL (74-106); Potassium 3.2 mmol/L (3.5-5.1); Sodium Level 133 mmol/L (136-145)
[2023-07-31 08:06] VITALS: O2SAT 94
[2023-07-31] MEDS: Enoxaparin 30 MG/0.3 ML Syringe SC (10:24)
[2023-07-31] MEDS: Losartan Potassium 100 MG Tablet PO (10:24)
[2023-07-31] MEDS: guaiFENesin/D-Methorphan TAB.SR.12H 2 TABLET PO (10:24)
[2023-07-31] MEDS: Potassium Chloride Oral Tablet 20 MEQ 40 MEQ PO (10:24)
[2023-07-31] MEDS: Pantoprazole Sodium 40 MG Tablet PO (10:24)
[2023-07-31] MEDS: amLODIPine 5 MG Tablet PO (10:25)
[2023-07-31 10:28] VITALS: BP 156/64; PULSE 60; RESP 18; TEMP 36.6; O2SAT 100
[2023-07-31 11:00] VITALS: PULSE 65
--- NOTE | 2023-07-31 11:24 | CASEMGMT ---
Social Work SW met with pt and introduced self and role of SW. Pt states she lives at home alone, and while her son is supportive, he is unable to provide 24 hour care. Pt's bedroom and bath are on the second floor. Pt feels she would benefit from short term rehab prior to returning home alone. A list of SNF providers including quality and resource use data and consistent with the patient?s preferred geographic region, medical needs, and insurance network were provided from the CarePort Guide. Pt's preferred providers are 1. [facility] and [facility]. [facility]. Pt states if these facilities are unable to accept she would want her son to be consulted for next choices. Referral made to TCU. SW will await determination of acceptance. TCU, pending acceptance RUSS Quintana
--- NOTE | 2023-07-31 12:44 | PCM.PN.REN ---
Subjective Subjective No new events Objective Data Objective Data Vital Signs: Vital Signs Temp Pulse Resp BP Pulse Ox O2 Del Method O2 Flow Rate 98 F 65 18 156/64 H 100 Nasal Cannula 2 07/31/23 10:28 07/31/23 11:00 07/31/23 10:28 07/31/23 10:28 07/31/23 10:28 07/31/23 10:32 07/31/23 10:32 Oxygen Flow Rate (L/min) 2 Oxygen Delivery Method Nasal Cannula Weight: 83.6 kg Body Mass Index (BMI) 30.7 Intake & Output: Intake and Output for Last 24 Hours 07/29/23 07/30/23 07/31/23 23:59 23:59 23:59 Intake Total 1200 / 1200 Output Total Balance 1200 / 1200 Lab / Micro Data 07/31/23 06:25 07/31/23 06:25 Labs: Laboratory Results - last 24 hr 07/31/23 06:25: WBC 4.9, RBC 4.30, Hgb 12.1, Hct 36.4 L, MCV 84.7 D, MCH 28.1, MCHC 33.2 D, RDW Std Deviation 37.4, RDW Coeff of [place]jo 12.3, Plt Count 274, MPV 9.8, Immature Gran % (Auto) 0.400, Neut % (Auto) 67.4, Lymph % (Auto) 21.0, [place] % (Auto) 8.6, Eos % (Auto) 2.2, Baso % (Auto) 0.4, Absolute Neuts (auto) 3.3, Absolute Lymphs (auto) 1.03, Nucleated RBC % 0, Sodium 133 L, Potassium 3.2 L, Chloride 102, Carbon Dioxide 25.0, Anion Gap 6, BUN 8, Creatinine 0.60, Estim Creat Clear Calc 41.05, Est GFR (MDRD) Af Amer 123, Est GFR (MDRD) Non-Af 101, BUN/Creatinine Ratio 13.2, Glucose 94, Calcium 8.3 L Micro: Microbiology 07/28/23 12:56 Mucosa - Nose Coronavirus COVID-19 PCR - Final SARS-CoV-2 (COVID 19 PCR) 07/28/23 02:12 Mucosa - Nasopharyngeal Respiratory Panel (PCR) - Final Physical Exam Narrative Alert awake oriented x 3 no obvious distress Assessment & Plan Assessment/Plan (1) Hyponatremia: PLAN: Severe hyponatremia with a sodium of about 120. Sodium has now improved to 133. Pending rehab placement. From a nephrology standpoint can be discharged. DC hydrochlorothiazide at the time of discharge. Add sodium chloride 1 g twice daily. Discharge planning discussed with hospitalist
--- NOTE | 2023-07-31 13:06 | CASEMGMT ---
Social Work SW spoke with pt's son to discuss advance directives.? Pt's son confirms that pt has completed a living will and health care POA naming son Dwain Lewis. SW notified Dwain that documents are not on file at [facility] and SW requested they be brought in for scanning into the EMR.? RUSS Quintana
[2023-07-31 13:56] VITALS: BP 160/65; PULSE 66; RESP 18; TEMP 36.9; O2SAT 100
--- NOTE | 2023-07-31 14:00 | TREXTCAR_ITS ---
Diet Diet Order/Speech Therapy: 07/29/23 07:38 Diet: Regular - General Type of Dietary Supplement:: Ensure Clear Is pt able to select menu?: Yes Diet Comments: 120 ml apple ensure clear tid w/ meals; 2 salt packets per meal Routine Orders/Code Status Suppository Type: Dulcolax 10mg Suppository Frequency: Daily PRN Routine Lab Work: BMP (2-3 days) Code Status: Full Code Therapies Physical Therapy: Eval and Treat Occupational Therapy: Eval and Treat Problem/Diagnosis (1) Hyponatremia: Status: Acute Code(s): E87.1 - Hypo-osmolality and hyponatremia Plan #1. Acute Viral Syndrome, COVID-19 with intractable nausea, emesis, cough #2. Subacute severe hyponatremia with history of chronic hyponatremia on sodium tablets #3. Hypomagnesia #4. Hypothyroidism #5. Hypertension #6. Hyperlipidemia #7. Anxiety and depression #8. [place] disease carrier status #9. Allergic rhinitis 77 y/o F w/ PMHx: Chronic hyponatremia (prior rx ordered for sodium tablets but no obvious labs consistent with hyponatremia upon review of outside records thus unclear), Hypothyroidism, HLD, HTN, Anxiety and Depression who presents to the [facility] as a direct admission from [facility] on 07/28/23 for a sodium of 119. She recently was diagnosed with COVID with symptom onset 11 days prior with nonproductive cough and worsening fatigue and malaise and over the past 48 hours had nausea, vomiting, dizziness and lightheadedness especially with activity prompting the ED presentation. Her hydrochlorothiazide and Zoloft were discontinued as well as her furosemide as there is concern she was also dehydrated and nephrology consulted. Her salt tabs were increased, labs progressively improved and patient did well from a sodium standpoint. Discussed with nephrology and advised that patient hold Lasix and hydrochlorothiazide on discharge and go home with 1 twice daily of salt tabs. On day patient was going to be discharged initially she reported that she feels too weak to go home alone and feels unsafe to do so and requested placement. Placement pursued and patient discharged to facility in stable condition. Discharge instructions as follows: -It will be important that you stop your valsartan/hydrochlorothiazide, continue your olmesartan and the hydrochlorothiazide component will be discontinued altogether as this is likely the cause or large contributor to your low sodium -Your salt tablets were increased to 1 g twice daily by the bell valet and zoloft has been discontinued to help with your sodium -Your lasix have been held. Weigh yourself every day. A sudden weight gain can mean you are retaining fluid. Weigh yourself at the same time of day and in the same kind of clothes. Ideally, weigh yourself first thing in the morning after you empty your bladder, but before you eat breakfast. -Please call your physician if your weight goes up by more than 2 pounds in 1 day or 5 pounds in 1 week. This can be a sign that you are retaining more fluid than you should be. -Would recommend lab work (BMP) to check your sodium in 2 to 3 days through your primary care physician's office. Please call their office upon discharge to obtain order for lab work. -Please follow-up with nephrology upon discharge. Please call their office to schedule hospital follow-up appointment upon discharge. -Please call your primary care provider's office upon discharge to schedule a hospital follow up within 1 week. -For any concerning signs or symptoms please call 911 or proceed to the nearest emergency department Allergies/Procedures Done in Hospital Allergies propoxyphene HCl [From Darvon] Allergy (Verified 07/28/23 01:03) Nausea codeine Adverse Reaction (Intermediate, Verified 07/28/23 01:03) Nausea simvastatin Adverse Reaction (Intermediate, Verified 07/28/23 01:03) Myalgia Type of Care/Length of Stay Estimated LOS: Convalescent Care Less Than 30 days Type of Care Needed: Skilled Rehab Potential: Fair Prognosis: Fair Additional Orders/Day of Discharge Day of Discharge: 07/31/23 Dietary and Speech Recommendations Dietitian Recommendations/Changes: Continue Regular diet - will provide 2 salt packets per tray per pt request Will add 120 ml ensure clear tid w/ meals for increased po intake if consumed d/t decreased appetite. Discharge Plan Admission Admit Date/Time: 07/28/23 14:34 Primary Reason for Your Visit: Low sodium Attending Provider: Natalya Wright Primary Care Provider: Maria Del Carmen Darby Consulting Providers: Madhavi Pate; De Blount; Brooks Carcamo; Natalya Wright; Trever Viveros Instructions Patient Instructions: Hyponatremia Dc Additional Instructions / Restrictions: DISCHARGE INSTRUCTIONS PLEASE READ *Please take this with you to your next doctors appointment* -You will be important that you stop your valsartan/hydrochlorothiazide, continue your olmesartan and the hydrochlorothiazide component will be discontinued altogether as this is likely the cause or large contributor to your low sodium -Your salt tablets were increased to 1 g twice daily by the bell valet and zoloft has been discontinued to help with your sodium -Your lasix have been held. Weigh yourself every day. A sudden weight gain can mean you are retaining fluid. Weigh yourself at the same time of day and in the same kind of clothes. Ideally, weigh yourself first thing in the morning after you empty your bladder, but before you eat breakfast. -Please call your physician if your weight goes up by more than 2 pounds in 1 day or 5 pounds in 1 week. This can be a sign that you are retaining more fluid than you should be. -Would recommend lab work (BMP) to check your sodium in 2 to 3 days through your primary care physician's office. Please call their office upon discharge to obtain order for lab work. -Please follow-up with nephrology upon discharge. Please call their office to schedule hospital follow-up appointment upon discharge. -Please call your primary care provider's office upon discharge to schedule a hospital follow up within 1 week. -For any concerning signs or symptoms please call 911 or proceed to the nearest emergency department Discharge Orders/Prescriptions Prescriptions: Continued amlodipine 5 mg tablet 5 mg PO DAILY Patient Comments: take 1 tablet by mouth once daily atorvastatin 20 mg tablet 20 mg PO DAILY Patient Comments: take 1 tablet by mouth once daily meclizine 12.5 mg tablet 12.5 mg PO TID PRN Patient Comments: take 1 tablet by mouth three times a day if needed for dizziness olmesartan 40 mg tablet 40 mg PO DAILY Patient Comments: take 1 tablet by mouth once daily levothyroxine 112 mcg tablet 112 mcg PO DAILY Patient Comments: take 1 tablet by mouth once daily EXCEPT FOR FRIDAYS Changed sodium chloride 1,000 mg tablet,soluble 1,000 mg PO BID Qty: 60 0RF Patient Comments: take 1 tablet by mouth daily EXCEPT TAKE 2 TABS ON SUNDAY, WEDNESDAYS AND FRIDAYS Held sertraline [Zoloft] 25 MG tablet 25 mg PO DAILY Hold Instructions: Resume on 08/08/23. furosemide 20 MG tablet 20 mg PO DAILY Hold Instructions: Resume on 08/08/23. Weigh self as included in instructions Discontinued Valsartan/Hydrochlorothiazide [Diovan Hct 320-25 Mg Tablet] 1 TABLET tablet 1 tab PO DAILY meloxicam 15 mg tablet 15 mg PO DAILY Patient Comments: take 1 tablet by mouth once daily with food Referrals / Follow Up: De Blount MD [Med Staff - Consulting] - Maria Del Carmen Darby DO [Primary Care Provider] - Within 1 Week Disposition Disposition (needs filled in before D/C Order can be placed): Intermediate Facility
--- NOTE | 2023-07-31 14:04 | DS.PCM_ITS ---
Providers Date of Admission: 07/28/23 Date of Discharge: 07/31/23 Primary Care Physician: Dr. Maria Del Carmen Darby, DO Consultations 07/28/23 07:32 Consult: Nephrology Routine Consulting Provider: De Blount Reason for Consult: Hyponatremia, Na 119 improving slowly 121 on NS EMERGENT Consult: No MD Notified: Yes Date Notified: 07/28/23 Time Notified: 07:33 Method of Notification: Text Reason For Visit: HYPONATREMIA, COVID Diagnosis Discharge Diagnosis (1) Hyponatremia: Status: Acute Code(s): E87.1 - Hypo-osmolality and hyponatremia Plan #1. Acute Viral Syndrome, COVID-19 with intractable nausea, emesis, cough #2. Subacute severe hyponatremia with history of chronic hyponatremia on sodium tablets #3. Hypomagnesia #4. Hypothyroidism #5. Hypertension #6. Hyperlipidemia #7. Anxiety and depression #8. [place] disease carrier status #9. Allergic rhinitis Medications at Discharge Home Medications furosemide 20 mg tablet 20 mg PO DAILY 07/26/15 sertraline 25 mg tablet (Zoloft) 25 mg PO DAILY 07/26/15 amlodipine 5 mg tablet 5 mg PO DAILY bp 07/28/23 atorvastatin 20 mg tablet 20 mg PO DAILY hld 07/28/23 levothyroxine 112 mcg tablet 112 mcg PO DAILY thyroid 07/28/23 meclizine 12.5 mg tablet 12.5 mg PO TID PRN dizzy 07/28/23 olmesartan 40 mg tablet 40 mg PO DAILY see md 07/28/23 sodium chloride 1,000 mg soluble tablet 1,000 mg PO BID #60 tabs 07/31/23 Hospital Course Summary of Care Provided Minutes Spent on Discharge: 35 Hospital Course: 77 y/o F w/ PMHx: Chronic hyponatremia (prior rx ordered for sodium tablets but no obvious labs consistent with hyponatremia upon review of outside records thus unclear), Hypothyroidism, HLD, HTN, Anxiety and Depression who presents to the [facility] as a direct admission from [facility] on 07/28/23 for a sodium of 119. She recently was diagnosed with COVID with symptom onset 11 days prior with nonproductive cough and worsening fatigue and malaise and over the past 48 hours had nausea, vomiting, dizziness and lightheadedness especially with activity prompting the ED presentation. Her hydrochlorothiazide and Zoloft were discontinued as well as her furosemide as there is concern she was also dehyd rated and nephrology consulted. Her salt tabs were increased, labs progressively improved and patient did well from a sodium standpoint. Discussed with nephrology and advised that patient hold Lasix and hydrochlorothiazide on discharge and go home with 1 twice daily of salt tabs. On day patient was going to be discharged initially she reported that she feels too weak to go home alone and feels unsafe to do so and requested placement. Placement pursued and patient discharged to facility in stable condition. Discharge instructions as follows: -It will be important that you stop your valsartan/hydrochlorothiazide, continue your olmesartan and the hydrochlorothiazide component will be discontinued altogether as this is likely the cause or large contributor to your low sodium -Your salt tablets were increased to 1 g twice daily by the motor vehicle licence examiner and zoloft has been discontinued to help with your sodium -Your lasix have been held. Weigh yourself every day. A sudden weight gain can mean you are retaining fluid. Weigh yourself at the same time of day and in the same kind of clothes. Ideally, weigh yourself first thing in the morning after you empty your bladder, but before you eat breakfast. -Please call your physician if your weight goes up by more than 2 pounds in 1 day or 5 pounds in 1 week. This can be a sign that you are retaining more fluid than you should be. -Would recommend lab work (BMP) to check your sodium in 2 to 3 days through your primary care physician's office. Please call their office upon discharge to obtain order for lab work. -Please follow-up with nephrology upon discharge. Please call their office to schedule hospital follow-up appointment upon discharge. -Please call your primary care provider's office upon discharge to schedule a hospital follow up within 1 week. -For any concerning signs or symptoms please call 911 or proceed to the nearest emergency department Physical Exam Narrative General: Alert, oriented, no apparent distress HEENT: Atraumatic, normocephalic Eyes: extraocular movements grossly intact Neck: Supple Respiratory: normal respiratory effort Cardiovascular: no edema appreciated GI: nondistended Extremities: Moving all extremities Neuro: No overt focal neurological deficits Psych: Cooperative Weight / BMI Weight Weight: 83.6 kg Body Mass Index (BMI) 30.7 ABG / Lab / Microbiology Data 07/31/23 06:25 07/31/23 06:25 Laboratory: Laboratory Results - last 24 hr 07/31/23 06:25: WBC 4.9, RBC 4.30, Hgb 12.1, Hct 36.4 L, MCV 84.7 D, MCH 28.1, MCHC 33.2 D, RDW Std Deviation 37.4, RDW Coeff of Alejo 12.3, Plt Count 274, MPV 9.8, Immature Gran % (Auto) 0.400, Neut % (Auto) 67.4, Lymph % (Auto) 21.0, [place] % (Auto) 8.6, Eos % (Auto) 2.2, Baso % (Auto) 0.4, Absolute Neuts (auto) 3.3, Absolute Lymphs (auto) 1.03, Nucleated RBC % 0, Sodium 133 L, Potassium 3.2 L, Chloride 102, Carbon Dioxide 25.0, Anion Gap 6, BUN 8, Creatinine 0.60, Estim Creat Clear Calc 41.05, Est GFR (MDRD) Af Amer 123, Est GFR (MDRD) Non-Af 101, BUN/Creatinine Ratio 13.2, Glucose 94, Calcium 8.3 L Microbiology: Microbiology 07/28/23 12:56 Mucosa - Nose Coronavirus COVID-19 PCR - Final SARS-CoV-2 (COVID 19 PCR) 07/28/23 02:12 Mucosa - Nasopharyngeal Respiratory Panel (PCR) - Final Meaningful Use Info Meaningful Use Diagnoses (Choose all that apply): None applicable Discharge Plan Admission Admit Date/Time: 07/28/23 14:34 Primary Reason for Your Visit: Low sodium Attending Provider: Natalya Wright Primary Care Provider: Maria Del Carmen Darby Consulting Providers: Madhavi Pate; De Blount; Brooks Carcamo; Natalya Wright; Trever Viveros Instructions Patient Instructions: Hyponatremia Dc Additional Instructions / Restrictions: DISCHARGE INSTRUCTIONS PLEASE READ *Please take this with you to your next doctors appointment* -You will be important that you stop your valsartan/hydrochlorothiazide, continue your olmesartan and the hydrochlorothiazide component will be discontinued altogether as this is likely the cause or large contributor to your low sodium -Your salt tablets were increased to 1 g twice daily by the motor vehicle licence examiner and zoloft has been discontinued to help with your sodium -Your lasix have been held. Weigh yourself every day. A sudden weight gain can mean you are retaining fluid. Weigh yourself at the same time of day and in the same kind of clothes. Ideally, weigh yourself first thing in the morning after you empty your bladder, but before you eat breakfast. -Please call your physician if your weight goes up by more than 2 pounds in 1 day or 5 pounds in 1 week. This can be a sign that you are retaining more fluid than you should be. -Would recommend lab work (BMP) to check your sodium in 2 to 3 days through your primary care physician's office. Please call their office upon discharge to [facility] order for lab work. -Please follow-up with nephrology upon discharge. Please call their office to schedule hospital follow-up appointment upon discharge. -Please call your primary care provider's office upon discharge to schedule a hospital follow up within 1 week. -For any concerning signs or symptoms please call 911 or proceed to the nearest emergency department Discharge Orders/Prescriptions Prescriptions: Continued amlodipine 5 mg tablet 5 mg PO DAILY Patient Comments: take 1 tablet by mouth once daily atorvastatin 20 mg tablet 20 mg PO DAILY Patient Comments: take 1 tablet by mouth once daily meclizine 12.5 mg tablet 12.5 mg PO TID PRN Patient Comments: take 1 tablet by mouth three times a day if needed for dizziness olmesartan 40 mg tablet 40 mg PO DAILY Patient Comments: take 1 tablet by mouth once daily levothyroxine 112 mcg tablet 112 mcg PO DAILY Patient Comments: take 1 tablet by mouth once daily EXCEPT FOR FRIDAYS Changed sodium chloride 1,000 mg tablet,soluble 1,000 mg PO BID Qty: 60 0RF Patient Comments: take 1 tablet by mouth daily EXCEPT TAKE 2 TABS ON SUNDAY, WEDNESDAYS AND FRIDAYS Held sertraline [Zoloft] 25 MG tablet 25 mg PO DAILY Hold Instructions: Resume on 08/08/23. furosemide 20 MG tablet 20 mg PO DAILY Hold Instructions: Resume on 08/08/23. Weigh self as included in instructions Discontinued Valsartan/Hydrochlorothiazide [Diovan Hct 320-25 Mg Tablet] 1 TABLET tablet 1 tab PO DAILY meloxicam 15 mg tablet 15 mg PO DAILY Patient Comments: take 1 tablet by mouth once daily with food Referrals / Follow Up: De Blount MD [Med Staff - Consulting] - Maria Del Carmen Darby DO [Primary Care Provider] - Within 1 Week Disposition Disposition (needs filled in before D/C Order can be placed): Intermediate Facility Charges/Coding Visit Charges Inpatient E&M: 90546 Disch Hosp >30min
--- NOTE | 2023-07-31 14:10 | PHA.DC.MR.R ---
Pharmacy OR Med Reconciliation Pharmacy Service has performed discharge medication reconciliation for this patient. The patient's discharge medication list was reviewed for discrepancies and discrepancies were resolved. Medications at Discharge Home Medications furosemide 20 mg tablet 20 mg PO DAILY 07/26/15 sertraline 25 mg tablet (Zoloft) 25 mg PO DAILY 07/26/15 amlodipine 5 mg tablet 5 mg PO DAILY bp 07/28/23 atorvastatin 20 mg tablet 20 mg PO DAILY hld 07/28/23 levothyroxine 112 mcg tablet 112 mcg PO DAILY thyroid 07/28/23 meclizine 12.5 mg tablet 12.5 mg PO TID PRN dizzy 07/28/23 olmesartan 40 mg tablet 40 mg PO DAILY see md 07/28/23 sodium chloride 1,000 mg soluble tablet 1,000 mg PO BID #60 tabs 07/31/23
--- NOTE | 2023-07-31 14:50 | CASEMGMT ---
Social Work TCU is able to accept pt today. Physician updated and pt is ready for discharge. Phone call to pt's son and updated and he is agreeable with plan to discharge to TCU today. SW updated pt who is also agreeable. Discharge orders faxed to TCU. Nursing notified. Disposition: TCU, skilled level of care RUSS Quintana
--- NOTE | 2023-07-31 14:54 | CASEMGMT ---
Social Work SW spoke with Kristina in TCU and pt can be accepted. Physician updated and pt will be ready for discharge tomorrow. SUMMER met with pt and dgt and updated and agreeable with plan to dc to TCU when medically ready. Plan: TCU, plan for admission on Sunday S RUSS Cruz
--- NOTE | 2023-07-31 14:55 | NURSING ---
Report called to ARLENE Parnell and she is going to room 8.
== END 2023-07-31 15:13 | disposition skilled nursing facility (03) | DRG 640 ==
PROVIDERS: Internal Medicine; Admitting Provider Family Medicine; PCP Family Medicine; Visit Provider Internal Medicine
DX: E87.1 Hypo-osmolality and hyponatremia (principal); U07.1 COVID-19; E03.9 Hypothyroidism, unspecified; I10 Essential (primary) hypertension; F32.A Depression, unspecified; E87.6 Hypokalemia; E86.1 Hypovolemia; E78.5 Hyperlipidemia, unspecified; F41.9 Anxiety disorder, unspecified; E86.0 Dehydration; E83.42 Hypomagnesemia; J30.9 Allergic rhinitis, unspecified; Z14.8 Genetic carrier of other disease; Z79.899 Other long term (current) drug therapy
CPT/HCPCS: 36415; 80048; 80076; 82533; 82550; 82570; 82728; 83615; 83735; 83880; 83935; 84145; 84295; 84300; 84439; 84443; 84484; 85025; 85379; 86140; 87633; 87635; 94668; 97110; 97162; 97166; 97530; 97535; J7030; A4216; J2405

== ENCOUNTER 2023-07-31 15:21 | Inpatient (IN) | payer MEDICARE, BC, SELFPAY ==
[2023-07-31 15:21] VITALS: BP 140/65; PULSE 61; RESP 20; TEMP 36.2; O2SAT 98
[2023-07-31 16:11] VITALS: BMI 29.6
--- NOTE | 2023-07-31 16:19 | HP.PCM_ITS ---
HPI - General General Date of Admission: 07/31/23 Date of Service: 07/31/23 Chief Complaint: Here for rehabilitation. HPI Narrative JERO LAYNE, is a 77 Female who presents with followin07/28/2023 Admit to [facility] from [facility]. +covid 07/24/2023, fatigue, malaise, nausea/vomiting, dizziness, loose stools, sore throat, myalgias, chills. Sodium 119, chronic hyponatremia on sodium chloride tablets, Chest X-ray negative. [facility] Emergency department gave normal saline 750ml iv, KCL 40meq, Magnesium 2gm iv, Zofran 4mg iv, Morphine 2mg iv, Tylenol 650mg x 1. IV fluids for hyponatremia, dehydration. Repeat magnesium level. 07/28/2023 Pulsox 100% on room air. Consult Nephrology for hyponatremia. 07/29/2023 Doing well. Stop HCTZ for hyponatremia. Magnesium level 2.1. 07/30/2023 Weak, unsafe to go home to [facility], recommend SNF. Decadron not necessary for covid. Sodium chloride 1gm bid, stop Lasix, stop HCTZ, stop Sertraline for hyponatremia. 07/31/2023 Admit to TCU with debility, here for rehabilitation, strengthening, prior to discharge home with . [facility] Medical History (Updated 07/31/23 @ 16:[address] Juan Diego Marks MD) Allergic rhinitis Anxiety and depression [place] disease Chronic hyponatremia COVID-19 History of endometrial biopsy HTN (hypertension) Hyperlipidemia Hypothyroidism Home Medications furosemide 20 mg tablet 20 mg PO DAILY 07/26/15 [History Last Taken 07/27/23] sertraline 25 mg tablet (Zoloft) 25 mg PO DAILY mood 07/26/15 [History Last Taken 07/27/23] amlodipine 5 mg tablet 5 mg PO DAILY bp 07/28/23 [History Last Taken 07/31/23] atorvastatin 20 mg tablet 20 mg PO DAILY hld 07/28/23 [History Last Taken 07/30/23] levothyroxine 112 mcg tablet 112 mcg PO DAILY thyroid 07/28/23 [History Last Taken 07/27/23] meclizine 12.5 mg tablet 12.5 mg PO TID PRN dizzy 07/28/23 [History Last Taken 07/27/23] olmesartan 40 mg tablet 40 mg PO DAILY see md 07/28/23 [History Last Taken 07/31/23] sodium chloride 1,000 mg soluble tablet 1,000 mg PO BID supplement #60 tabs 07/31/23 [Rx Last Taken 07/31/23] Allergy/AdvReac Type Severity Reaction Status Date / Time propoxyphene HCl Allergy Nausea Verified 07/28/23 01:03 [From Darvon] codeine AdvReac Intermediate Nausea Verified 07/28/23 01:03 simvastatin AdvReac Intermediate Myalgia Verified 07/28/23 01:03 Family History Mother CVA (cerebral vascular accident) Father Kimberlee disease Son Kimberlee disease Brother Heart disease Hypertension Daughter Lupus Sister Melanoma Surgical History H/O cone biopsy of cervix H/O dilation and curettage History of tonsillectomy Hx of myringotomy Hx of tubal ligation S/P thyroid biopsy Social History (Updated 07/31/23 @ 16:[address] Juan Diego Marks MD) household members: none Smoking Status: Never smoker alcohol intake: never substance use type: does not use ROS Constitutional Constitutional: Reports weakness; Denies chills, fever(s) or weight gain ENT HEENT: Denies headache(s), nasal congestion or nasal discharge Cardiovascular Cardiovascular: Denies chest pain or palpitations Respiratory/Chest Respiratory/Chest: Denies cough, excessive phlegm production or shortness of breath with exertion Gastrointestinal Gastrointestinal: Denies abdominal pain, nausea or vomiting Genitourinary Genitourinary: Denies dysuria Musculoskeletal Musculoskeletal: Denies joint pain or joint swelling Integumentary Integumentary: Denies rash or wounds Neurologic Neurologic: Denies focal weakness, numbness or tingling Psychiatric Psychiatric: Denies anxiety, auditory hallucinations, depression, homicidal ideation or suicidal ideation Vital Signs Vital Signs Vital Signs: 07/31/23 15:21 Temperature 97.2 F L Temperature Source Temporal Pulse Rate 61 Respiratory Rate 20 H Blood Pressure 140/65 H Blood Pressure Mean 90 Blood Pressure Source Monitor Blood Pressure Position Semi-Fowlers Blood Pressure Location Right Arm Pulse Ox 98 Oxygen Delivery Method Room Air Weight Weight: 83.189 kg Body Mass Index (BMI) 29.6 Physical Exam Const alert General Appearance: cooperative HEENT normocephalic Eyes PERRL and EOMs intact bilaterally Neck supple, no JVD and no carotid bruits Resp normal respiratory effort, normal air movement and clear to auscultation bilaterally Cardio regular rate and regular rhythm GI normal to inspection, nondistended, normoactive bowel sounds, non-tender and non-distended Extremity normal capillary refill General Extremity: Negative for edema Skin no rashes or lesions noted General Skin Exam: no breakdown Psych affect normal Appearance: appropriate Assessment & Plan Assessment/Plan (1) Debility: (2) COVID-19: (3) Hyponatremia: (4) Hypomagnesemia: (5) HTN (hypertension): (6) Hyperlipidemia: (7) Depression: (8) Anxiety: (9) Osteoarthritis: PLAN: Plan 77 year old female with below past medical history hospitalized for weakness secondary to covid, hyponatremia, hypomagnesemia, admitted to TCU with debility, here for rehabilitation, strengthening, prior to discharge home alone. * Debility - PT/OT. * Pain - Tylenol 1000mg q6 prn pain (1-10). * Bowel - senna/colace 1 tablet bid prn, Magnesium citrate 300ml po daily prn. * Adult immunization - Administer pneumonia vaccine, covid vaccine, flu vaccine as appropriate. * DVT prophylaxis - Lovenox 40mg sc daily. * Hypertension - Losartan 100mg daily, Amlodipine 5mg daily * Hyperlipidemia - Atorvastatin 20mg daily. * Hypothyroidism - Levothyroxine 112mcg daily. * BPPV - Meclizine 12.5mg tid prn. * Hyponatremia - sodium chloride 1gm bid.
--- NOTE | 2023-07-31 16:57 | NURSING ---
Notified Dr. Marks patient's potassium was replaced this AM with k-dur 40mEq PO x1. New Order to cancel order for K-dur 40mEq PO x1. Patient will have repeat labs tomorrow AM and will reassess needs to replace potassium at that time.
[2023-07-31] MEDS: Sodium Chloride 1 GM Tablet PO (21:16)
[2023-07-31] MEDS: Miconazole Nitrate 43 GM Bottle 1 APPLIC TOPICAL (21:16)
[2023-08-01] MEDS: Acetaminophen 500 MG Tablet 1000 MG PO ×3 (04:13→19:44)
[2023-08-01] MEDS: Levothyroxine 112 MCG Tablet PO (05:40)
[2023-08-01] MEDS: Enoxaparin 40 MG/0.4 ML Syringe SC (05:40)
[2023-08-01 05:58] LABS: Absolute Lymphocyte Count 0.94 X10^3/uL (0.83-4.51); Absolute Neutrophil Count 3.1 X10^3/uL (2.0-7.7); Basophil# 0.02 X10^3/uL; Basophil% 0.4 % (0-1); Eosinophil# 0.15 X10^3/uL; Eosinophils% 3.2 % (0-5); Hematocrit 33.4 % (37-47); Hemoglobin 11.5 g/dL (12.0-15.0); Lymphocyte # 0.94 X10^3/ul (0.83-4.51); Lymphocyte % 20.2 % (19-41); Mean Corp Hgb Conc 34.4 g/dL (32-36); Mean Corpuscular Hgb 28.5 pg (27.0-32.0); Mean Corpuscular Volume 82.7 fL (81-99); Monocyte# 0.44 X10^3/uL; Monocyte% 9.4 % (0-10); NRBC Flagged by Analyzer 0 % (0-5); Neutrophil # 3.09 X10^3/uL (2.7-7.7); Neutrophil % 66.4 % (47-70); Platelet Count 272 K/mm3 (150-450); RBC Distribution Width CV 12.5 % (11.6-14.6); RBC Distribution Width SD 37.8 fl (35.1-43.9); Red Blood Count 4.04 M/mm3 (4.2-5.4); White Blood Count 4.7 K/mm3 (4.4-11.0)
[2023-08-01 06:00] VITALS: BMI 29.6
[2023-08-01 07:02] LABS: Anion Gap 5 (5-15); BUN 9 mg/dL (7-18); BUN/Creat Ratio 15.5 RATIO (10-20); Calcium,Total 8.2 mg/dL (8.5-10.1); Chloride 101 mmol/L (98-107); Creatinine, Serum 0.58 mg/dL (0.55-1.02); EST Glomerular Filtration Rate 106 mL/min (>60); Est Glom Filt Rate - Afr Amer 129 mL/min (>60); Glucose 102 mg/dL (74-106); Potassium 3.5 mmol/L (3.5-5.1); Sodium Level 134 mmol/L (136-145)
[2023-08-01] MEDS: Tuberculin,Purif.prot.deriv. 50 TU/ML Vial 0.1 ML ID (10:14)
[2023-08-01] MEDS: Losartan Potassium 100 MG Tablet PO (10:17)
[2023-08-01] MEDS: Sodium Chloride 1 GM Tablet PO ×2 (10:17→21:23)
[2023-08-01] MEDS: Atorvastatin Calcium 20 MG Tablet PO (10:18)
[2023-08-01] MEDS: amLODIPine 5 MG Tablet PO (10:18)
[2023-08-01] MEDS: Miconazole Nitrate 43 GM Bottle 1 APPLIC TOPICAL ×2 (10:29→21:30)
[2023-08-01] MEDS: 0.9% Saline Lock 10 ML Syringe IV (10:30)
--- NOTE | 2023-08-01 11:31 | NURSING ---
Career And Transition Teacher Note; Activity Asset: Santi Almonte is independent in her choice of daily activities. She enjoys jigsaw puzzles and word search but with her vertigo she only wanted jigsaw puzzles at this time. She will read the paper and spending time with her family. Suzy stated she welcomes visit w/the calender roll operator and therapy dog when available. Staff will continue to offer her daily activities and respect her right to say no.
[2023-08-01 15:10] VITALS: BP 123/53; PULSE 65; RESP 18; TEMP 36.1; O2SAT 98
--- NOTE | 2023-08-01 16:51 | CASEMGMT ---
Social Work Spoke with pt to complete initial assessment. Introduced self and role. Verified/updated contacts. Discussed code status and pt would like to review her living will prior to making a decision. Pt is understanding she will remain full code until pt elects otherwise. Son did provide copies of advanced directives this date. Educated to Medicare benefit and copay coverage. Pt's goal is to return home alone. See SW assessment for barriers and psychosocial history. SW will continue to follow for DC planning. BARBARA ForteW
[2023-08-01] MEDS: Senna/Docusate Sodium 1 Tablet PO (21:23)
[2023-08-01 21:25] VITALS: PULSE 62; RESP 16; O2SAT 97
[2023-08-02] MEDS: Acetaminophen 500 MG Tablet 1000 MG PO ×4 (02:24→22:27)
[2023-08-02] MEDS: Levothyroxine 112 MCG Tablet PO (05:50)
[2023-08-02] MEDS: Enoxaparin 40 MG/0.4 ML Syringe SC (05:50)
[2023-08-02 06:05] VITALS: PULSE 80; RESP 16; O2SAT 97
[2023-08-02] MEDS: Senna/Docusate Sodium 1 Tablet PO ×2 (09:03→20:11)
[2023-08-02] MEDS: Losartan Potassium 100 MG Tablet PO (09:03)
[2023-08-02] MEDS: Atorvastatin Calcium 20 MG Tablet PO (09:04)
[2023-08-02] MEDS: Sertraline 50 MG Tablet PO (09:04)
[2023-08-02] MEDS: Sodium Chloride 1 GM Tablet PO ×2 (09:04→20:11)
[2023-08-02] MEDS: Potassium Chloride Oral Tablet 20 MEQ PO (09:04)
[2023-08-02] MEDS: amLODIPine 5 MG Tablet PO (09:04)
[2023-08-02] MEDS: Miconazole Nitrate 43 GM Bottle 1 APPLIC TOPICAL ×2 (09:05→20:11)
[2023-08-02] MEDS: Meclizine 12.5 MG Tablet PO (09:08)
[2023-08-02] MEDS: Magnesium Citrate 300 ML PO (09:21)
[2023-08-02 09:41] VITALS: BP 133/93; PULSE 71; RESP 18; TEMP 36.1; O2SAT 98
--- NOTE | 2023-08-02 10:06 | PHA.CONS_ITS ---
TCU RX Drug Regimen Review Subjective/Objective Subjective/Objective: Subjective: 77 YOF admitted to TCU s/p hospitalization at an outside facility secondary to COVID-19. Patient was also positive for significant weakness, malaise, fatigue making it unsafe for her to go home at time of discharge. Ad mitted to TCU 07/31/23 for strengthening and rehabilitation with plan to go home at discharge where she resides with her . Objective: Allergies propoxyphene HCl [From Darvon] Allergy (Verified 07/28/23 01:03) Nausea codeine Adverse Reaction (Intermediate, Verified 07/28/23 01:03) Nausea simvastatin Adverse Reaction (Intermediate, Verified 07/28/23 01:03) Myalgia Current Medications Generic Name Dose Route Start Last Admin Trade Name Freq PRN Reason Stop Dose Admin Acetaminophen 1,000 mg 07/31/23 16:34 08/02/23 09:21 Acetaminophen 500 Mg Tablet PO 1,000 mg Q6H PRN PRN Administration Pain Score 1-10 Amlodipine Besylate 5 mg 08/01/23 10:00 08/02/23 09:04 Amlodipine 5 Mg Tablet PO 5 mg DAILY JENNIFER Administration Protocol Atorvastatin Calcium 20 mg 08/01/23 10:00 08/02/23 09:04 Atorvastatin Calcium 20 Mg Tablet PO 20 mg DAILY JENNIFER Administration Calamine/Phenol 1 applic 08/02/23 10:00 Menthol/Lanolin/Calamine/Znox 113 Gm Tube TOPICAL BID [facility] Protocol Enoxaparin Sodium 40 mg 08/01/23 06:00 08/02/23 05:50 Enoxaparin 40 Mg/0.4 Ml Syringe SC 40 mg DAILY@0600 JENNIFER Administration Levothyroxine Sodium 112 mcg 08/01/23 06:00 08/02/23 05:50 Levothyroxine 112 Mcg Tablet PO 112 mcg DAILY@0600 JENNIFER Administration Losartan Potassium 100 mg 08/01/23 10:00 08/02/23 09:03 Losartan Potassium 100 Mg Tablet PO 100 mg DAILY JENNIFER Administration Magnesium Citrate 300 ml 07/31/23 16:35 08/02/23 09:21 Magnesium Citrate 300 Ml PO 300 ml DAILY PRN Administration CONSTIPATION Meclizine HCl 12.5 mg 07/31/23 15:45 08/02/23 09:08 Meclizine 12.5 Mg Tablet PO 12.5 mg TID PRN JENNIFER Administration Miconazole Nitrate 1 applic 07/31/23 22:00 08/02/23 09:05 Miconazole Nitrate 43 Gm Bottle TOPICAL 1 applic BID JENNIFER Administration Protocol Potassium Chloride 20 meq 08/02/23 08:00 08/02/23 09:04 Potassium Chloride Oral Tablet 20 Meq PO 20 meq DAILYCM JENNIFER Administration Senna/Docusate Sodium 1 tablet 08/02/23 22:00 Senna/Docusate Sodium 1 Tablet PO BID JENNIFER Sertraline HCl 50 mg 08/02/23 10:00 08/02/23 09:04 Sertraline 50 Mg Tablet PO 50 mg DAILY JENNIFER Administration Sodium Chloride 1 gm 07/31/23 22:00 08/02/23 09:04 Sodium Chloride 1 Gm Tablet PO 1 gm BID JENNIFER Administration Sodium Chloride 10 - 40 ml 07/31/23 15:50 08/01/23 10:30 0.9% Saline Lock 10 Ml Syringe IV 10 ml UD PRN Administration SALINE FLUSH Tuberculin PPD 0.1 ml 08/08/23 10:00 Tuberculin,Purif.Prot.Deriv. 50 Tu/Ml Vial ID 08/08/23 10:01 X1 ONE Problem List (Updated 07/31/23 @ 16:[address] Juan Diego Marks MD) Osteoarthritis (Acute) Anxiety (Acute) Depression (Acute) Hyperlipidemia (Acute) HTN (hypertension) (Chronic) Hypomagnesemia (Acute) Debility (Acute) Hyponatremia (Acute) COVID-19 (Acute) Vital Signs Temp Pulse Resp BP Pulse Ox O2 Del Method O2 Flow Rate 97.0 F L 71 18 133/93 H 98 Room Air 2 08/02/23 09:41 08/02/23 09:41 08/02/23 09:41 08/02/23 09:41 08/02/23 09:41 08/02/23 09:41 08/02/23 07:48 Oxygen Flow Rate (L/min) 2 Oxygen Delivery Method Room Air Weight: 83.189 kg Body Mass Index (BMI) 29.6 Sodium 134 mmol/L (136-145) L 08/01/23 05:36 Potassium 3.5 mmol/L (3.5-5.1) 08/01/23 05:36 Chloride 101 mmol/L (98-107) 08/01/23 05:36 Carbon Dioxide 28.0 mmol/L (21.0-32.0) 08/01/23 05:36 Anion Gap 5 (5-15) 08/01/23 05:36 BUN 9 mg/dL (7-18) 08/01/23 05:36 Creatinine 0.58 mg/dL (0.55-1.02) 08/01/23 05:36 Est GFR (MDRD) Af Amer 129 mL/min (>60) 08/01/23 05:36 Est GFR (MDRD) Non-Af 106 mL/min (>60) 08/01/23 05:36 BUN/Creatinine Ratio 15.5 RATIO (10-20) 08/01/23 05:36 Glucose 102 mg/dL (74-106) 08/01/23 05:36 Assessment/Plan: 1. Pain: Tylenol 1000mg PO Q6h PRN Pain 1-10. Please continue to monitor for increased/decreased S/S pain, PRN medication usage, LFT with frequent Tylenol use. - To date, the patient has used 5 doses of PRN medication. Pre-medication pain rated 4-6, post-medication pain rated 0-2. Appears medication is controlling the patient's pain adequately at this time. 2. HTN/HLD: Norvasc 5mg PO Daily, Lipitor 20mg PO Daily, Losartan 100mg PO daily. Please continue to monitor BP (range 123-160/53-93), swelling/edema, HR (range 60-80), lipid panel annually or sooner if clinically indicated (none on file), renal function (SCr 0.58 on 08/01). 3. Hypothyroidism: Synthroid 112mcg PO Daily. Please continue to monitor for S/S hypothyroidism, thyroid function as clinically indicated (TSH WNL on 07/28/23. 4. Hyponatremia/Hypokalemia: Sodium chloride 1g PO BID, KCl 20mEq PO Daily. Please continue to monitor sodium levels (133 on 07/31), potassium levels (last 3.2 on 07/31), stomach upset, n/v. 5. Vertigo: Meclizine 12.5mg PO TID PRN. Please continue to monitor for This is a Beer's Criteria medication which can increase the risk of anticholinergic side effects in patients >65 years of age. Please continue to monitor for unwanted ADR and evaluate for alternative treatments if ADR becomes intolerable to the patient. 6. DVT Prophylaxis: Lovenox 40mg SC Daily. Please continue to monitor for S/S bleeding/bruising, Skin Integrity: Calmoseptine topically BID, Desonex topically BID. Please continue to monitor for skin irritation, redness/soreness, ulcer formations. Bowel: Senna/docusate 1 tab PO BID, Magnesium citrate 300mL PO Daily PRN. Please continue to monitor for increased/decreased constipation and/or diarrhea. - To date; the patient has not had a documented bowel movement. Please consider giving PRN medication to help facilitate a BM, thank you. * DVT prophylaxis - Lovenox 40mg sc daily. * BPPV - Meclizine 12.5mg tid prn. * Hyponatremia - sodium chloride 1gm bid. Assessment/Plan for indications treated with psychotropic medications: Depression/Anxiety: Zoloft 50mg PO Daily. Please continue to monitor sodium levels, consider a GDR if clinically indicated or discontinuation given hyponatremia, thank you. Medical chart and medication regimen reviewed. The following medication irregularities or issues were identified: 1. Hyperlipidemia: Patient currently on Lipitor, no lipid panel on file. Please obtain a lipid panel to assess levels as clinically indicated, thank you. 2. Depression/Anxiety: Zoloft 50mg PO Daily. Please continue to monitor sodium levels, consider a GDR if clinically indicated or discontinuation given hyponatremia, thank you.
[2023-08-02] MEDS: Menthol/Lanolin/Calamine/Znox 113 GM Tube 1 APPLIC TOPICAL ×2 (11:35→20:10)
[2023-08-02] MEDS: Glycerin/Hypromellose/PEG400 15 ml Bottle 2 DRP EACH EYE (20:10)
[2023-08-03] MEDS: Levothyroxine 112 MCG Tablet PO (05:49)
[2023-08-03] MEDS: Enoxaparin 40 MG/0.4 ML Syringe SC (05:49)
[2023-08-03] MEDS: Acetaminophen 500 MG Tablet 1000 MG PO ×3 (05:53→20:15)
[2023-08-03 07:25] VITALS: O2SAT 94
[2023-08-03] MEDS: Potassium Chloride Oral Tablet 20 MEQ PO (09:48)
[2023-08-03] MEDS: Losartan Potassium 100 MG Tablet PO (09:51)
[2023-08-03] MEDS: Meloxicam 15 MG Tablet PO (09:52)
[2023-08-03] MEDS: Senna/Docusate Sodium 1 Tablet PO (09:52)
[2023-08-03] MEDS: amLODIPine 5 MG Tablet PO (09:52)
[2023-08-03] MEDS: Sodium Chloride 1 GM Tablet PO ×2 (09:52→20:16)
[2023-08-03] MEDS: Atorvastatin Calcium 20 MG Tablet PO (09:52)
[2023-08-03] MEDS: Menthol/Lanolin/Calamine/Znox 113 GM Tube 1 APPLIC TOPICAL ×2 (09:53→20:17)
[2023-08-03] MEDS: Sertraline 50 MG Tablet PO (09:53)
[2023-08-03] MEDS: Miconazole Nitrate 43 GM Bottle 1 APPLIC TOPICAL ×2 (09:53→20:13)
[2023-08-03 11:11] VITALS: BP 140/70; PULSE 68; RESP 17; TEMP 36; O2SAT 97
[2023-08-03 20:07] VITALS: PULSE 68; RESP 16; O2SAT 98
[2023-08-04] MEDS: Levothyroxine 112 MCG Tablet PO (04:07)
[2023-08-04] MEDS: Enoxaparin 40 MG/0.4 ML Syringe SC (04:07)
[2023-08-04] MEDS: Acetaminophen 500 MG Tablet 1000 MG PO ×3 (04:08→21:50)
[2023-08-04 06:00] VITALS: BMI 29.7
[2023-08-04 08:52] LABS: Anion Gap 3 (5-15); BUN 13 mg/dL (7-18); BUN/Creat Ratio 19.1 RATIO (10-20); Calcium,Total 8.7 mg/dL (8.5-10.1); Chloride 102 mmol/L (98-107); Creatinine, Serum 0.68 mg/dL (0.55-1.02); EST Glomerular Filtration Rate 88 mL/min (>60); Est Glom Filt Rate - Afr Amer 107 mL/min (>60); Glucose 92 mg/dL (74-106); Potassium 4.1 mmol/L (3.5-5.1); Sodium Level 133 mmol/L (136-145)
[2023-08-04 10:25] VITALS: BP 129/66; PULSE 65; RESP 14; TEMP 36.9; O2SAT 97
[2023-08-04] MEDS: Potassium Chloride Oral Tablet 20 MEQ PO (10:29)
[2023-08-04] MEDS: Losartan Potassium 100 MG Tablet PO (10:29)
[2023-08-04] MEDS: Atorvastatin Calcium 20 MG Tablet PO (10:30)
[2023-08-04] MEDS: amLODIPine 5 MG Tablet PO (10:30)
[2023-08-04] MEDS: Meloxicam 15 MG Tablet PO (10:30)
[2023-08-04] MEDS: Senna/Docusate Sodium 1 Tablet PO ×2 (10:30→21:51)
[2023-08-04] MEDS: Menthol/Lanolin/Calamine/Znox 113 GM Tube 1 APPLIC TOPICAL ×2 (10:31→21:52)
[2023-08-04] MEDS: Sertraline 50 MG Tablet PO (10:31)
[2023-08-04] MEDS: Miconazole Nitrate 43 GM Bottle 1 APPLIC TOPICAL ×2 (10:31→21:51)
[2023-08-04] MEDS: Sodium Chloride 1 GM Tablet PO ×2 (10:31→21:51)
[2023-08-05] MEDS: Acetaminophen 500 MG Tablet 1000 MG PO ×3 (04:34→22:04)
[2023-08-05 06:00] VITALS: BMI 29.7
[2023-08-05] MEDS: Enoxaparin 40 MG/0.4 ML Syringe SC (06:00)
[2023-08-05] MEDS: Levothyroxine 112 MCG Tablet PO (06:00)
--- NOTE | 2023-08-05 07:52 | NURSING ---
Notified Dr. Marks patient having more pain in the night, states its aches and pain in her legs. Patient has Tylenol PRN, however medication not effective for patient management. New order for Tramadol 50mg PO Q6H PRN.
[2023-08-05 09:49] VITALS: BP 129/77; PULSE 75; RESP 17; TEMP 36.8; O2SAT 96
[2023-08-05] MEDS: Potassium Chloride Oral Tablet 20 MEQ PO (09:52)
[2023-08-05] MEDS: Menthol/Lanolin/Calamine/Znox 113 GM Tube 1 APPLIC TOPICAL ×2 (09:52→22:04)
[2023-08-05] MEDS: Senna/Docusate Sodium 1 Tablet PO ×2 (09:53→22:04)
[2023-08-05] MEDS: Meloxicam 15 MG Tablet PO (09:53)
[2023-08-05] MEDS: amLODIPine 5 MG Tablet PO (09:53)
[2023-08-05] MEDS: Losartan Potassium 100 MG Tablet PO (09:53)
[2023-08-05] MEDS: Atorvastatin Calcium 20 MG Tablet PO (09:53)
[2023-08-05] MEDS: Miconazole Nitrate 43 GM Bottle 1 APPLIC TOPICAL ×2 (09:53→22:04)
[2023-08-05] MEDS: Sodium Chloride 1 GM Tablet PO ×2 (09:54→22:04)
[2023-08-05] MEDS: Sertraline 50 MG Tablet PO (09:54)
[2023-08-05] MEDS: traMADol 50 MG Tablet PO (22:04)
[2023-08-06 05:51] LABS: Anion Gap 4 (5-15); BUN 15 mg/dL (7-18); BUN/Creat Ratio 19.4 RATIO (10-20); Calcium,Total 8.9 mg/dL (8.5-10.1); Chloride 104 mmol/L (98-107); Creatinine, Serum 0.77 mg/dL (0.55-1.02); EST Glomerular Filtration Rate 77 mL/min (>60); Est Glom Filt Rate - Afr Amer 93 mL/min (>60); Glucose 92 mg/dL (74-106); Potassium 4.7 mmol/L (3.5-5.1); Sodium Level 137 mmol/L (136-145)
[2023-08-06 06:00] VITALS: BMI 29.7
[2023-08-06] MEDS: Enoxaparin 40 MG/0.4 ML Syringe SC (06:20)
[2023-08-06] MEDS: Levothyroxine 112 MCG Tablet PO (06:20)
[2023-08-06 07:00] VITALS: O2SAT 96
[2023-08-06] MEDS: Potassium Chloride Oral Tablet 20 MEQ PO (08:19)
[2023-08-06] MEDS: Meclizine 12.5 MG Tablet PO (08:24)
[2023-08-06] MEDS: Losartan Potassium 100 MG Tablet PO (10:20)
[2023-08-06] MEDS: amLODIPine 5 MG Tablet PO (10:20)
[2023-08-06] MEDS: Atorvastatin Calcium 20 MG Tablet PO (10:21)
[2023-08-06] MEDS: Senna/Docusate Sodium 1 Tablet PO (10:21)
[2023-08-06] MEDS: Meloxicam 15 MG Tablet PO (10:21)
[2023-08-06] MEDS: Sertraline 50 MG Tablet PO (10:21)
[2023-08-06] MEDS: Sodium Chloride 1 GM Tablet PO ×2 (10:21→21:06)
[2023-08-06] MEDS: Miconazole Nitrate 43 GM Bottle 1 APPLIC TOPICAL ×2 (10:22→21:08)
[2023-08-06] MEDS: Menthol/Lanolin/Calamine/Znox 113 GM Tube 1 APPLIC TOPICAL ×2 (10:22→21:08)
[2023-08-06] MEDS: Acetaminophen 500 MG Tablet 1000 MG PO ×2 (10:26→21:07)
--- NOTE | 2023-08-06 11:22 | NURSING ---
Did not offer covid vaccine, recent covid infection, too soon to receive vaccination.
[2023-08-06 14:14] VITALS: BP 141/51; PULSE 76; RESP 20; TEMP 36.1; O2SAT 98
[2023-08-06] MEDS: traMADol 50 MG Tablet PO (21:07)
[2023-08-06] MEDS: Glycerin/Hypromellose/PEG400 15 ml Bottle 2 DRP EACH EYE (21:07)
[2023-08-07] MEDS: Enoxaparin 40 MG/0.4 ML Syringe SC (05:55)
[2023-08-07] MEDS: Levothyroxine 112 MCG Tablet PO (05:55)
[2023-08-07 06:00] VITALS: BMI 29.5
[2023-08-07 08:14] VITALS: O2SAT 100
[2023-08-07] MEDS: Potassium Chloride Oral Tablet 20 MEQ PO (09:12)
[2023-08-07] MEDS: Losartan Potassium 100 MG Tablet PO (09:12)
[2023-08-07] MEDS: Atorvastatin Calcium 20 MG Tablet PO (09:13)
[2023-08-07] MEDS: Meloxicam 15 MG Tablet PO (09:13)
[2023-08-07] MEDS: amLODIPine 5 MG Tablet PO (09:13)
[2023-08-07] MEDS: Miconazole Nitrate 43 GM Bottle 1 APPLIC TOPICAL ×2 (09:14→20:40)
[2023-08-07] MEDS: Senna/Docusate Sodium 1 Tablet PO ×2 (09:14→20:34)
[2023-08-07] MEDS: Sodium Chloride 1 GM Tablet PO ×2 (09:14→20:34)
[2023-08-07] MEDS: Menthol/Lanolin/Calamine/Znox 113 GM Tube 1 APPLIC TOPICAL ×2 (09:14→20:38)
[2023-08-07] MEDS: Sertraline 50 MG Tablet PO (09:14)
[2023-08-07] MEDS: Acetaminophen 500 MG Tablet 1000 MG PO ×2 (09:18→20:32)
[2023-08-07 09:21] VITALS: BP 114/63; PULSE 65
[2023-08-07 14:49] VITALS: BP 160/74; PULSE 83; RESP 18; TEMP 36; O2SAT 98
[2023-08-07] MEDS: Glycerin/Hypromellose/PEG400 15 ml Bottle 2 DRP EACH EYE (20:33)
[2023-08-07] MEDS: traMADol 50 MG Tablet PO (20:41)
[2023-08-08] MEDS: Enoxaparin 40 MG/0.4 ML Syringe SC (05:32)
[2023-08-08] MEDS: Levothyroxine 112 MCG Tablet PO (05:32)
[2023-08-08] MEDS: Acetaminophen 500 MG Tablet 1000 MG PO (05:34)
[2023-08-08 05:43] LABS: Absolute Lymphocyte Count 1.62 X10^3/uL (0.83-4.51); Absolute Neutrophil Count 1.8 X10^3/uL (2.0-7.7); Basophil# 0.04 X10^3/uL; Eosinophil# 0.27 X10^3/uL; Eosinophils% 6.6 % (0-5); Hematocrit 34.4 % (37-47); Hemoglobin 10.9 g/dL (12.0-15.0); Lymphocyte # 1.62 X10^3/ul (0.83-4.51); Lymphocyte % 39.3 % (19-41); Mean Corp Hgb Conc 31.7 g/dL (32-36); Mean Corpuscular Hgb 28.4 pg (27.0-32.0); Mean Corpuscular Volume 89.6 fL (81-99); Mean Platelet Vol. 9.2 fl (6.2-12.0); Monocyte% 9.7 % (0-10); NRBC Flagged by Analyzer 0 % (0-5); Neutrophil # 1.78 X10^3/uL (2.7-7.7); Neutrophil % 43.2 % (47-70); Platelet Count 291 K/mm3 (150-450); RBC Distribution Width CV 13.3 % (11.6-14.6); RBC Distribution Width SD 43.2 fl (35.1-43.9); Red Blood Count 3.84 M/mm3 (4.2-5.4); White Blood Count 4.1 K/mm3 (4.4-11.0)
[2023-08-08 06:28] LABS: Anion Gap 1 (5-15); BUN 19 mg/dL (7-18); BUN/Creat Ratio 23.6 RATIO (10-20); Calcium,Total 8.9 mg/dL (8.5-10.1); Chloride 103 mmol/L (98-107); EST Glomerular Filtration Rate 73 mL/min (>60); Est Glom Filt Rate - Afr Amer 88 mL/min (>60); Estimated Creatinine Clearance 53.38 ml/min; Glucose 93 mg/dL (74-106); Potassium 4.3 mmol/L (3.5-5.1); Sodium Level 136 mmol/L (136-145)
[2023-08-08 08:39] VITALS: O2SAT 98
--- NOTE | 2023-08-08 09:29 | NURSING ---
Industrial Maintenance Instructor Note; MDS for 08/07 Complete
[2023-08-08] MEDS: Potassium Chloride Oral Tablet 20 MEQ PO (09:31)
[2023-08-08] MEDS: Atorvastatin Calcium 20 MG Tablet PO (09:32)
[2023-08-08] MEDS: Senna/Docusate Sodium 1 Tablet PO ×2 (09:32→21:15)
[2023-08-08] MEDS: Losartan Potassium 100 MG Tablet PO (09:32)
[2023-08-08] MEDS: amLODIPine 5 MG Tablet PO (09:32)
[2023-08-08] MEDS: Meloxicam 15 MG Tablet PO (09:32)
[2023-08-08] MEDS: Furosemide 20 MG Tablet PO (09:32)
[2023-08-08] MEDS: Sodium Chloride 1 GM Tablet PO ×2 (09:32→21:15)
[2023-08-08] MEDS: Sertraline 50 MG Tablet PO (09:33)
[2023-08-08] MEDS: Miconazole Nitrate 43 GM Bottle 1 APPLIC TOPICAL ×2 (10:37→21:17)
[2023-08-08] MEDS: Menthol/Lanolin/Calamine/Znox 113 GM Tube 1 APPLIC TOPICAL ×2 (10:37→21:15)
[2023-08-08] MEDS: Tuberculin,Purif.prot.deriv. 50 TU/ML Vial 0.1 ML ID (10:38)
--- NOTE | 2023-08-08 11:09 | MDS.RN ---
Information for the mds was obtained from review of the clinical record, interview of resident, staff, and direct observation of resident's care.
--- NOTE | 2023-08-08 13:04 | CASEMGMT ---
Social Work IDT met with patient, son and granddtr, then two dtrs via conference call for care plan meeting. Discussed patient's progress in PT/OT/SN. Educated to Medicare benefit and copay coverage. IDT suggested having a first floor set up, home delivered meals, and a life alert. Pt agreeable to all. Son and children are working on moving pt to first floor over the weekend. SW provided resources for MOW and LifeAlert. Offered to set DC date. All parties agreed to DC 08/14. Recommending OP PT. Pt agreeable but unsure of transportation. SW to inquire to [facility] on transport to [facility] from home. Pt agreeable. Plan: DC home alone 08/14, [facility], [facility] [place]
[2023-08-08 14:25] VITALS: BP 117/57; PULSE 95; RESP 17; TEMP 35.9; O2SAT 95
--- NOTE | 2023-08-08 19:32 | DS.PCM_ITS ---
Providers Date of Admission: 07/31/23 Primary Care Physician: Dr. Maria Del Carmen Darby DO Reason For Visit: HYPONATREMIA/COVID Diagnosis Discharge Diagnosis (1) Debility: Status: Acute Code(s): R53.81 - Other malaise (2) COVID-19: Status: Acute Code(s): U07.1 - COVID-19 (3) Hyponatremia: Status: Acute Code(s): E87.1 - Hypo-osmolality and hyponatremia (4) Hypomagnesemia: Status: Acute Code(s): E83.42 - Hypomagnesemia (5) HTN (hypertension): Status: Chronic Code(s): I10 - Essential (primary) hypertension (6) Hyperlipidemia: Status: Acute Code(s): E78.5 - Hyperlipidemia, unspecified (7) Depression: Status: Acute Code(s): F32.A - Depression, unspecified (8) Anxiety: Status: Acute Code(s): F41.9 - Anxiety disorder, unspecified (9) Osteoarthritis: Status: Acute Code(s): M19.90 - Unspecified osteoarthritis, unspecified site Plan 77 year old female with below past medical history hospitalized for weakness secondary to covid, hyponatremia, hypomagnesemia, admitted to TCU with debility, here for rehabilitation, strengthening, prior to discharge home alone. * Debility - PT/OT. * Pain - Tylenol 1000mg q6 prn pain (1-10). * Bowel - senna/colace 1 tablet bid prn, Magnesium citrate 300ml po daily prn. * Adult immunization - Administer pneumonia vaccine, covid vaccine, flu vaccine as appropriate. * DVT prophylaxis - Lovenox 40mg sc daily. * Hypertension - Losartan 100mg daily, Amlodipine 5mg daily * Hyperlipidemia - Atorvastatin 20mg daily. * Hypothyroidism - Levothyroxine 112mcg daily. * BPPV - Meclizine 12.5mg tid prn. * Hyponatremia - sodium chloride 1gm bid. Medications at Discharge Home Medications amlodipine 5 mg tablet 5 mg PO DAILY bp 07/28/23 atorvastatin 20 mg tablet 20 mg PO DAILY hld 07/28/23 levothyroxine 112 mcg tablet 112 mcg PO DAILY thyroid 07/28/23 meclizine 12.5 mg tablet 12.5 mg PO TID PRN dizzy 07/28/23 olmesartan 40 mg tablet 40 mg PO DAILY see 07/28/23 sodium chloride 1,000 mg soluble tablet 1,000 mg PO BID supplement #60 tabs 07/31/23 acetaminophen 500 mg tablet 1,000 mg (2 x 500 mg) PO Q6H PRN PRN Pain Score 1-10 #0 tabs 08/08/23 furosemide 20 mg tablet 20 mg PO DAILY 30 days #30 tabs 08/08/23 meloxicam 15 mg tablet 15 mg PO DAILY #0 tabs 08/08/23 potassium chloride 20 mEq tablet,extended release(part/cryst) (Klor-Con M) 20 meq PO DAILYCM 30 days #30 tabs 08/08/23 sertraline 50 mg tablet 50 mg PO DAILY #0 tabs 08/08/23 tramadol 50 mg tablet 50 mg PO Q6H PRN PRN Pain Score 6-10 7 days #28 tabs 08/08/23 Hospital Course Operations None Procedures None Summary of Care Provided Minutes Spent on Discharge: 35 Hospital Course: 77 year old female with below past medical history hospitalized for weakness secondary to covid, hyponatremia, hypomagnesemia, admitted to TCU with debility, here for rehabilitation, strengthening, prior to discharge home alone. Discharge home alone 08/14/2023, [facility], [facility]. Physical Exam Const alert General Appearance: cooperative HEENT normocephalic Eyes PERRL and EOMs intact bilaterally Neck supple, no JVD and no carotid bruits Resp normal respiratory effort, normal air movement and clear to auscultation bilaterally Cardio regular rate and regular rhythm GI normal to inspection, nondistended, normoactive bowel sounds, non-tender and non-distended Extremity normal capillary refill General Extremity: Negative for edema Skin no rashes or lesions noted General Skin Exam: no breakdown Psych affect normal Appearance: appropriate Weight / BMI Weight Weight: 82.917 kg Body Mass Index (BMI) 29.5 ABG / Lab / Microbiology Data 08/08/23 05:20 08/08/23 05:20 Laboratory: Laboratory Results - last 24 hr 08/08/23 05:20: WBC 4.1 L, RBC 3.84 L, Hgb 10.9 L, Hct 34.4 L, MCV 89.6, MCH 28.4, MCHC 31.7 L, RDW Std Deviation 43.2, RDW Coeff of Alejo 13.3, Plt Count 291, MPV 9.2, Immature Gran % (Auto) 0.200, Neut % (Auto) 43.2 L, Lymph % (Auto) 39.3 , [place] % (Auto) 9.7, Eos % (Auto) 6.6 H, Baso % (Auto) 1.0, Absolute Neuts (auto) 1.8 L, Absolute Lymphs (auto) 1.62, Nucleated RBC % 0, Sodium 136, Potas sium 4.3, Chloride 103, Carbon Dioxide 32.0, Anion Gap 1 L, BUN 19 H, Creatinine 0.80, Estim Creat Clear Calc 53.38, Est GFR (MDRD) Af Amer 88, Est GFR (MDRD) Non-Af 73, BUN/Creatinine Ratio 23.6 H, Glucose 93, Calcium 8.9 D/C Instructions Discharge Diet: No restrictions Discharge Activity: Return to Normal Activity, May Shower and Use Walker Weight Bearing Status: Weight bearing as tolerated Call your doctor if you observe: Fever of 101 or Higher, Inability to urinate, Inability to have a bowel movement, Shortness of breath, Dizziness, Fainting spells, Swelling in the ankles, Chest pain and Uncontrolled pain Additional Instructions: Discharge home alone 08/14/2023, [facility], [place]. Please Follow Up With: Dr. Blount Meaningful Use Info Meaningful Use Diagnoses (Choose all that apply): None applicable Discharge Plan Admission Admit Date/Time: 07/31/23 15:21 Primary Reason for Your Visit: Debility. Attending Provider: Juan Diego Marks Chi Primary Care Provider: Maria Del Carmen Darby Instructions Additional Instructions / Restrictions: Discharge home alone 08/14/2023, [facility], [place]. Discharge Orders/Prescriptions Prescriptions: New acetaminophen 500 mg Tablet 1,000 mg PO Q6H PRN PRN (Reason: Pain Score 1-10) Qty: 0 0RF meloxicam 15 mg Tablet 15 mg PO DAILY Qty: 0 0RF tramadol 50 mg Tablet 50 mg PO Q6H PRN PRN (Reason: Pain Score 6-10) 7 Days Qty: 28 0RF potassium chloride [Klor-Con M20] 20 mEq Tablet,Er Particles/Crystals 20 meq PO DAILYCM 30 Days Qty: 30 0RF furosemide 20 mg Tablet 20 mg PO DAILY 30 Days Qty: 30 0RF sertraline 50 mg Tablet 50 mg PO DAILY Qty: 0 0RF Continued amlodipine 5 mg tablet 5 mg PO DAILY Patient Comments: take 1 tablet by mouth once daily atorvastatin 20 mg tablet 20 mg PO DAILY Patient Comments: take 1 tablet by mouth once daily meclizine 12.5 mg tablet 12.5 mg PO TID PRN Patient Comments: take 1 tablet by mouth three times a day if needed for dizziness olmesartan 40 mg tablet 40 mg PO DAILY Patient Comments: take 1 tablet by mouth once daily levothyroxine 112 mcg tablet 112 mcg PO DAILY Patient Comments: take 1 tablet by mouth once daily EXCEPT FOR FRIDAYS sodium chloride 1,000 mg tablet,soluble 1,000 mg PO BID Qty: 60 0RF Patient Comments: take 1 tablet by mouth daily EXCEPT TAKE 2 TABS ON SUNDAY, WEDNESDAYS AND FRIDAYS Discontinued sertraline [Zoloft] 25 MG tablet 25 mg PO DAILY Hold Instructions: Resume on 08/08/23. furosemide 20 MG tablet 20 mg PO DAILY Hold Instructions: Resume on 08/08/23. Weigh self as included in instructions Referrals / Follow Up: Maria Del Carmen Darby DO [Primary Care Provider] - Disposition Disposition (needs filled in before D/C Order can be placed): Home, Self Care
[2023-08-08] MEDS: traMADol 50 MG Tablet PO (21:23)
[2023-08-09] MEDS: Levothyroxine 112 MCG Tablet PO (06:00)
[2023-08-09] MEDS: Enoxaparin 40 MG/0.4 ML Syringe SC (06:00)
[2023-08-09] MEDS: Potassium Chloride Oral Tablet 20 MEQ PO (08:40)
[2023-08-09] MEDS: Furosemide 20 MG Tablet PO (08:41)
[2023-08-09] MEDS: Losartan Potassium 100 MG Tablet PO (08:41)
[2023-08-09] MEDS: Meloxicam 15 MG Tablet PO (08:42)
[2023-08-09] MEDS: amLODIPine 5 MG Tablet PO (08:42)
[2023-08-09] MEDS: Senna/Docusate Sodium 1 Tablet PO ×2 (08:42→20:55)
[2023-08-09] MEDS: Atorvastatin Calcium 20 MG Tablet PO (08:42)
[2023-08-09] MEDS: Sertraline 50 MG Tablet PO (08:43)
[2023-08-09] MEDS: Glycerin/Hypromellose/PEG400 15 ml Bottle 2 DRP EACH EYE (08:43)
[2023-08-09] MEDS: Sodium Chloride 1 GM Tablet PO ×2 (08:45→20:55)
[2023-08-09] MEDS: Menthol/Lanolin/Calamine/Znox 113 GM Tube 1 APPLIC TOPICAL ×2 (08:58→20:56)
[2023-08-09] MEDS: Miconazole Nitrate 43 GM Bottle 1 APPLIC TOPICAL ×2 (08:59→20:57)
[2023-08-09 09:16] VITALS: BP 124/63; PULSE 72
[2023-08-09 10:00] VITALS: PULSE 66; O2SAT 98
[2023-08-09 14:22] VITALS: BP 117/46; PULSE 65; RESP 14; TEMP 36.1; O2SAT 98
--- NOTE | 2023-08-09 15:31 | CHAPLAIN ---
Type of Pastoral Visit _x__ Initial Visit ___ Follow-up Visit ___ On-call Visit ___ General Patient Visit ___ Spiritual Assessment ___ Family Conference ___ Bereavement ___ Rapid Response ___ Code Blue ___ Other (describe below) Pastoral Care Referral From _x__ Patient ___ Family ___ Nurse ___ Physician ___ Game Protector ___ Suede Brusher ___ Other (describe below) Sacrament/Intervention _x__ Active listening ___ Anointing ___ Latter-Day ___ Bereavement ___ Communion ___ Soco exploration ___ _x__ Life review ___ Prayer ___ Reconciliation ___ Sacrament of Sick _x__ Supportive presence ___ Wedding ___ Other (describe below) Pastoral Comments patient is welcoming and invites this global human resources director to sit down and talk; pt is very talkative and gives much life review; pt explains that she is in the need of making jail decisions about her home, living circumstances, and life changes; pt has good family support and a taoist connection per her report; pt appears to be thinking realistically and appropriately; PT came to do therapy and pt requests another time to visit so more conversation and support can be given
[2023-08-09] MEDS: Acetaminophen 500 MG Tablet 1000 MG PO (21:37)
[2023-08-10] MEDS: Enoxaparin 40 MG/0.4 ML Syringe SC (05:38)
[2023-08-10] MEDS: Levothyroxine 112 MCG Tablet PO (05:38)
[2023-08-10 06:00] VITALS: BMI 29.2
[2023-08-10 07:50] VITALS: O2SAT 95
[2023-08-10 10:12] VITALS: BP 129/71; PULSE 69; RESP 18; TEMP 36.7; O2SAT 96
[2023-08-10] MEDS: Losartan Potassium 100 MG Tablet PO (10:13)
[2023-08-10] MEDS: Potassium Chloride Oral Tablet 20 MEQ PO (10:13)
[2023-08-10] MEDS: amLODIPine 5 MG Tablet PO (10:14)
[2023-08-10] MEDS: Sertraline 50 MG Tablet PO (10:14)
[2023-08-10] MEDS: Meloxicam 15 MG Tablet PO (10:14)
[2023-08-10] MEDS: Sodium Chloride 1 GM Tablet PO ×2 (10:14→21:47)
[2023-08-10] MEDS: Furosemide 20 MG Tablet PO (10:14)
[2023-08-10] MEDS: Atorvastatin Calcium 20 MG Tablet PO (10:14)
[2023-08-10] MEDS: Senna/Docusate Sodium 1 Tablet PO ×2 (10:16→21:47)
[2023-08-10] MEDS: Miconazole Nitrate 43 GM Bottle 1 APPLIC TOPICAL ×2 (10:17→21:51)
[2023-08-10] MEDS: Menthol/Lanolin/Calamine/Znox 113 GM Tube 1 APPLIC TOPICAL ×2 (10:17→21:51)
[2023-08-10] MEDS: Glycerin/Hypromellose/PEG400 15 ml Bottle 2 DRP EACH EYE ×2 (10:18→20:24)
[2023-08-10 20:15] VITALS: PULSE 68; RESP 16; O2SAT 95
[2023-08-10] MEDS: traMADol 50 MG Tablet PO (21:48)
[2023-08-10] MEDS: Acetaminophen 500 MG Tablet 1000 MG PO (21:48)
[2023-08-11] MEDS: Levothyroxine 112 MCG Tablet PO (06:02)
[2023-08-11] MEDS: Enoxaparin 40 MG/0.4 ML Syringe SC (06:02)
[2023-08-11 06:20] VITALS: PULSE 72; RESP 18; O2SAT 95
[2023-08-11] MEDS: Miconazole Nitrate 43 GM Bottle 1 APPLIC TOPICAL ×2 (08:02→22:29)
[2023-08-11] MEDS: Menthol/Lanolin/Calamine/Znox 113 GM Tube 1 APPLIC TOPICAL ×2 (08:03→22:29)
[2023-08-11] MEDS: Potassium Chloride Oral Tablet 20 MEQ PO (08:04)
[2023-08-11] MEDS: Losartan Potassium 100 MG Tablet PO (08:04)
[2023-08-11] MEDS: Senna/Docusate Sodium 1 Tablet PO ×2 (08:05→22:27)
[2023-08-11] MEDS: Furosemide 20 MG Tablet PO (08:05)
[2023-08-11] MEDS: amLODIPine 5 MG Tablet PO (08:07)
[2023-08-11] MEDS: Meloxicam 15 MG Tablet PO (08:07)
[2023-08-11] MEDS: Sodium Chloride 1 GM Tablet PO ×2 (08:08→22:27)
[2023-08-11] MEDS: Atorvastatin Calcium 20 MG Tablet PO (08:08)
[2023-08-11] MEDS: Sertraline 50 MG Tablet PO (08:09)
[2023-08-11 08:11] VITALS: BP 137/64; PULSE 73
[2023-08-11 16:00] VITALS: BP 113/61; PULSE 71; RESP 16; TEMP 36.1; O2SAT 96
[2023-08-11] MEDS: Calcium Carb/Vitamin D 1 TABLET Tablet PO (17:05)
[2023-08-12] MEDS: Enoxaparin 40 MG/0.4 ML Syringe SC (05:20)
[2023-08-12] MEDS: Levothyroxine 112 MCG Tablet PO (05:20)
[2023-08-12] MEDS: Sodium Chloride 1 GM Tablet PO ×2 (08:44→21:22)
[2023-08-12] MEDS: amLODIPine 5 MG Tablet PO (08:44)
[2023-08-12] MEDS: Losartan Potassium 100 MG Tablet PO (08:44)
[2023-08-12] MEDS: Meloxicam 15 MG Tablet PO (08:44)
[2023-08-12] MEDS: Atorvastatin Calcium 20 MG Tablet PO (08:44)
[2023-08-12] MEDS: Furosemide 20 MG Tablet PO (08:44)
[2023-08-12] MEDS: Senna/Docusate Sodium 1 Tablet PO ×2 (08:44→21:22)
[2023-08-12] MEDS: Sertraline 50 MG Tablet PO (08:44)
[2023-08-12] MEDS: Calcium Carb/Vitamin D 1 TABLET Tablet PO ×2 (08:45→17:19)
[2023-08-12] MEDS: Menthol/Lanolin/Calamine/Znox 113 GM Tube 1 APPLIC TOPICAL ×2 (08:45→21:27)
[2023-08-12] MEDS: Potassium Chloride Oral Tablet 20 MEQ PO (08:45)
[2023-08-12] MEDS: Miconazole Nitrate 43 GM Bottle 1 APPLIC TOPICAL ×2 (08:45→21:27)
[2023-08-12 08:50] VITALS: BP 126/57; PULSE 71
[2023-08-12 14:30] VITALS: BMI 29.1
[2023-08-12 15:00] VITALS: PULSE 64; RESP 18; O2SAT 98
[2023-08-12 16:00] VITALS: BP 157/61; PULSE 66; RESP 16; TEMP 36.4; O2SAT 98
[2023-08-12] MEDS: Glycerin/Hypromellose/PEG400 15 ml Bottle 2 DRP EACH EYE (16:04)
[2023-08-13] MEDS: Levothyroxine 112 MCG Tablet PO (05:20)
[2023-08-13] MEDS: Enoxaparin 40 MG/0.4 ML Syringe SC (05:20)
[2023-08-13 06:00] VITALS: BMI 29.1
[2023-08-13 08:29] VITALS: BP 137/58; PULSE 67; RESP 16; TEMP 36.1; O2SAT 98
[2023-08-13] MEDS: Sertraline 50 MG Tablet PO (08:30)
[2023-08-13] MEDS: Senna/Docusate Sodium 1 Tablet PO ×2 (08:30→19:58)
[2023-08-13] MEDS: Losartan Potassium 100 MG Tablet PO (08:30)
[2023-08-13] MEDS: amLODIPine 5 MG Tablet PO (08:31)
[2023-08-13] MEDS: Potassium Chloride Oral Tablet 20 MEQ PO (08:31)
[2023-08-13] MEDS: Meloxicam 15 MG Tablet PO (08:31)
[2023-08-13] MEDS: Furosemide 20 MG Tablet PO (08:31)
[2023-08-13] MEDS: Calcium Carb/Vitamin D 1 TABLET Tablet PO ×2 (08:31→17:27)
[2023-08-13] MEDS: Sodium Chloride 1 GM Tablet PO ×2 (08:31→19:57)
[2023-08-13] MEDS: Atorvastatin Calcium 20 MG Tablet PO (08:31)
[2023-08-13 10:00] VITALS: RESP 18
[2023-08-13] MEDS: Menthol/Lanolin/Calamine/Znox 113 GM Tube 1 APPLIC TOPICAL ×2 (11:08→19:57)
[2023-08-13] MEDS: Miconazole Nitrate 43 GM Bottle 1 APPLIC TOPICAL ×2 (11:09→19:56)
[2023-08-13 15:01] VITALS: BP 131/62; PULSE 69; RESP 18; TEMP 36.1; O2SAT 97
--- NOTE | 2023-08-13 16:35 | CASEMGMT ---
Social Work BIMS () and PHQ-2 () completed for MDS assessment. Lary Isabel MSW MARINE ENGINEERING CONSULTANT
[2023-08-13] MEDS: Glycerin/Hypromellose/PEG400 15 ml Bottle 2 DRP EACH EYE (20:01)
[2023-08-14] MEDS: Enoxaparin 40 MG/0.4 ML Syringe SC (05:49)
[2023-08-14] MEDS: Levothyroxine 112 MCG Tablet PO (05:49)
[2023-08-14 07:09] VITALS: O2SAT 95
[2023-08-14] MEDS: Senna/Docusate Sodium 1 Tablet PO (08:46)
[2023-08-14] MEDS: Sodium Chloride 1 GM Tablet PO (08:46)
[2023-08-14] MEDS: Atorvastatin Calcium 20 MG Tablet PO (08:46)
[2023-08-14] MEDS: Meloxicam 15 MG Tablet PO (08:46)
[2023-08-14] MEDS: Furosemide 20 MG Tablet PO (08:46)
[2023-08-14] MEDS: Losartan Potassium 100 MG Tablet PO (08:47)
[2023-08-14] MEDS: Sertraline 50 MG Tablet PO (08:47)
[2023-08-14] MEDS: Calcium Carb/Vitamin D 1 TABLET Tablet PO (08:47)
[2023-08-14] MEDS: amLODIPine 5 MG Tablet PO (08:47)
[2023-08-14] MEDS: Potassium Chloride Oral Tablet 20 MEQ PO (08:47)
[2023-08-14] MEDS: Menthol/Lanolin/Calamine/Znox 113 GM Tube 1 APPLIC TOPICAL (08:52)
[2023-08-14] MEDS: Miconazole Nitrate 43 GM Bottle 1 APPLIC TOPICAL (08:52)
[2023-08-14 08:54] VITALS: BP 147/63; PULSE 85; RESP 16; TEMP 36.1; O2SAT 93
[2023-08-14 11:04] VITALS: BP 147/58; PULSE 61; RESP 16; TEMP 36.2; O2SAT 95
== END 2023-08-14 11:20 | disposition home or self-care (01) | DRG 178 ==
PROVIDERS: Admitting Provider Family Medicine Geriatric Medicine; PCP Family Medicine; Referring Provider Family Medicine Geriatric Medicine; Visit Provider Family Medicine Geriatric Medicine
DX: U07.1 COVID-19 (principal); E87.1 Hypo-osmolality and hyponatremia; I10 Essential (primary) hypertension; F32.A Depression, unspecified; E03.9 Hypothyroidism, unspecified; E78.5 Hyperlipidemia, unspecified; E83.42 Hypomagnesemia; M19.90 Unspecified osteoarthritis, unspecified site; F41.9 Anxiety disorder, unspecified; H81.10 Benign paroxysmal vertigo, unspecified ear; Z79.899 Other long term (current) drug therapy; Z79.890 Hormone replacement therapy
CPT/HCPCS: 36415; 80048; 85025; 97110; 97116; 97162; 97166; 97530; 97535; 97802; A4216

== ENCOUNTER → 2023-09-26 | Outpatient (CLI) | payer MEDICARE, BC, SELFPAY ==
--- NOTE | 2023-09-26 08:52 | ECHOCS_ITS ---
Reason For Study: ASHD/CAD Procedure This was a 2D Doppler, Color Flow transthoracic echocardiogram. Contrast injection was performed. Exam performed in department. Left Ventricle Normal size and thickness. The left ventricular ejection fraction is 55 %. Stage 1 diastolic dysfunction. Right Ventricle Normal right ventricle. Atria The left and right atria are normal. Mitral Valve Mild (1+) mitral valve insufficiency. Tricuspid Valve Normal pulmonary artery pressure. Moderate (2+) eccentric tricuspid valve insufficiency. Aortic Valve Trisinus/trileaflet aortic valve. Pulmonic Valve The pulmonic valve is not well visualized. Great Vessels Normal sized aortic root. Pericardium/Pleural No pericardial effusion. Medication 22 gauge I.V. with prn adaptor inserted into right arm. Diluted definity 3ml given slow IV push to enhance endocardial definition. MMode/2D Measurements & Calculations LVIDd: 5.5 cm IVSd: 0.81 cm Ao root diam: 3.3 cm LVIDs: 3.9 cm LVPWd: 0.85 cm LA dimension: 3.8 cm RVDd: 3.3 cm FS: 29.8 % LAV(MOD-bp): 58.6 ml LVAd ap4: 32.2 cm2 SV(MOD-sp4): 56.3 ml LAV(MOD-bp) Indexed: 30.6 ml/m2 LVLd ap4: 7.4 cm LAV(MOD-sp2): 60.6 ml EDV(MOD-sp4): 114.6 ml LAV(MOD-sp4): 51.3 ml EDV(sp4-el): 118.6 ml LVAs ap4: 20.7 cm2 LVLs ap4: 6.2 cm ESV(MOD-sp4): 58.3 ml ESV(sp4-el): 58.9 ml EF(MOD-sp4): 49.1 % EF(sp4-el): 50.4 % SV(sp4-el): 59.8 ml LA A4 area: 18.4 cm2 RA A4 area: 14.7 cm2 TAPSE: 1.8 cm Time Measurements MV dec time: 0.34 sec Doppler Measurements & Calculations MV E max joe: 58.9 cm/sec Lat Peak E' Joe: 7.3 cm/sec Med Peak E' Joe: 5.6 cm/sec MV A max joe: 93.5 cm/sec E/E' lat: 8.0 E/E' med: 10.6 MV E/A: 0.63 MV V2 max: 92.8 cm/sec MV P1/2t max joe: 69.4 cm/sec Ao V2 max: 108.7 cm/sec MV max P.4 mmHg MV P1/2t: 125.1 msec Ao max P.7 mmHg MV V2 mean: 46.8 cm/sec Ao V2 mean: 73.9 cm/sec MV mean P.0 mmHg MV dec slope: 162.4 cm/sec2 Ao mean P.4 mmHg MV V2 VTI: 31.9 cm MVA(P1/2t): 1.8 cm2 Ao V2 VTI: 23.6 cm AV (velocity ratio): 0.92 LV V1 max: 94.7 cm/sec PA V2 max: 96.4 cm/sec TR max joe: 266.6 cm/sec LV V1 max P.6 mmHg PA V2 mean: 64.4 cm/sec TR max P.4 mmHg LV V1 mean P.9 mmHg LV V1 mean: 63.8 cm/sec LV V1 VTI: 21.6 cm ECHO/Echo Complete W/ Contrast Interpretation Summary The left ventricular ejection fraction is 55 %. Stage 1 diastolic dysfunction. Mild (1+) mitral valve insufficiency. Moderate (2+) eccentric tricuspid valve insufficiency. Ordering Physician: Kristy Andrew Referring Physician: Maria Del Carmen Darby Performed By: Raudel Valencia and Student
--- OUTSIDE RECORDS SUMMARY | 2023-09-26 09:44 | XMS RPT_ITS | CCD ---
Author Name Unknown Address [address] [place] [address] Organization [facility] Care Team Providers Care Nurse [employer] Name Role Phone ARGELIA LEVY DO Primary Care Physician [phone] MILDRED DO, ARGELIA Primary Care Unavailable MILDRED DO, ARGELIA Attending Unavailable MILDRED DO, ARGELIA Primary Care Unavailable MILDRED DO, ARGELIA Attending Unavailable MILDRED DO, ARGELIA Attending Unavailable MILDRED DO, ARGELIA Primary Care Unavailable MILDRED DO, ARGELIA Primary Care Unavailable MILDRED DO, ARGELIA Attending Unavailable MILDRED DO, ARGELIA Primary Care Unavailable MILDRED DO, ARGELIA Attending Unavailable MILDRED DO, ARGELIA Primary Care Unavailable MILDRED DO, ARGELIA Attending Unavailable MILDRED DO, ARGELIA Primary Care Unavailable MILDRED DO, ARGELIA Attending Unavailable MILDRED DO, ARGELIA Attending Unavailable MILDRED DO, ARGELIA Primary Care Unavailable DURESKA DO, RASHEL Attending Unavailable MILDRED DO, ARGELIA Primary Care Unavailable MILDRED DO, ARGELIA Primary Care Unavailable CHAGO DO, YAZMIN Attending Unavailable DIMPLE GARCIA Attending Unavailable MILDRED DO, ARGELIA Primary Care Unavailable MILDRED DO, ARGELIA Primary Care Unavailable MILDRED DO, ARGELIA Attending Unavailable MILDRED DO, ARGELIA Primary Care Unavailable MILDRED DO, ARGELIA Attending Unavailable MILDRED DO, ARGELIA Attending Unavailable MILDRED DO, ARGELIA Primary Care Unavailable Allergies Allergy Classification Reported Allergen(s) Allergy Type Date of Onset Reaction(s) Facility (18 sources) Aspirin / Caffeine / Propoxyphene; Translations: [ASA/caffeine/pr opoxyphene] Drug Allergy Unknown [facility] (18 sources) atorvastatin; Translations: [atorvastatin] Drug Allergy Unknown [facility] (18 sources) Codeine; Translations: [codeine] Drug Allergy Nausea (finding) [facility] (18 sources) Propoxyphene; Translations: [propoxyphene] Drug Allergy vomiting [facility] (8 sources) Simvastatin; Translations: [simvastatin] Drug Allergy myalgias [facility] Medications Current Medications Medication Drug Class(es) Dates Sig (Normalized) Sig (Original) amLODIPine 5 mg oral tablet (18 sources) Dihydropyridine Calcium Channel Rahat Start: 12-11-2022 amLODIPine 5 mg oral tablet Dose : 5 mg = 1 tab(s), Oral, qDay, # 90 tab(s), 3 Refill(s), Pharmacy: [facility][id number], 167.6, cm, 12/11/22 13:15:00 EDT, Height, kg, 12/11/22 13:15:00 EDT, Dosing Weight Start Date: 12/11/22 Status: Ordered Completed/Discontinued Medications Medication Drug Class(es) Dates Sig (Normalized) Sig (Original) vitamin b12 1 mg/ml injectable solution (5 sources) Vitamin B12 Start: 04-23-2023 inject 1 mL by subcutaneous injection every month cyanocobalamin 1000 mcg/mL injectable solution Dose : 1,000 mcg = 1 mL, Subcutaneous, qmonth, not sent in - to get at doctor's office, # 1 mL, 11 Refill(s), other reason (Rx), B12 deficiency Start Date: 04/23/23 Status: Ordered Problems Problem Classification Problem Date Documented Date Episodic/Chronic Anxiety disorders (20 sources) Panic disorder; Translations: [Anxiety] 07-25-2019 Chronic Cardiac dysrhythmias (17 sources) 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 Conditions associated with dizziness or vertigo (20 sources) Dizziness; Translations: [Lightheadedness] 06-21-2021 Episodic Coronary atherosclerosis and other heart disease (18 sources) Coronary arteriosclerosis 09-15-2020 Chronic Disorders of lipid metabolism (20 sources) Mixed hyperlipidemia; Translations: [Pure hypercholesterolemia] 09-15-2020 Chronic Essential hypertension (20 sources) Essential hypertension; Translations: [Essential (primary) hypertension] Onset: 12-26-2022 07-25-2019 Chronic Fluid and electrolyte disorders (13 sources) Hyponatremia; Translations: [Hypokalemia] 04-05-2022 Episodic Heart valve disorders (18 sources) Mitral valve prolapse 08-24-2020 Chronic Results Test Name Value Interpretation Reference Range Facil ity Vital Signs Date Time Vital Sign Value Performing Clinician William ortez 09-02-2023 11:12-0500 Blood Pressure Location [place] [facility] 09-02-2023 11:12-0500 Body temperature 97.88 [degF] [place]AZMIN [place] [facility] 09-02-2023 11:12-0500 Diastolic Blood Pressure Non-Invasive 79 mm[Hg] YAZMIN OROURKEKeraFAST DO [facility] 09-02-2023 11:12-0500 Heart rate 60 /min [place]AZMIN [place] [facility] 09-02-2023 11:12-0500 Respiratory rate 16 /min YAZMIN OROURKEKeraFAST DO [facility] 09-02-2023 11:12-0500 Systolic Blood Pressure Non-Invasive 151 mm[Hg] YAMZIN OROURKEKeraFAST DO [facility] 07-27-2023 22:38-0400 Diastolic Blood Pressure Non-Invasive 71 1 RASHEL CASTILLOKA DO [facility] 07-27-2023 22:38-0400 Heart rate 68 /min RASHEL CASTLILOKA DO [facility] 07-27-2023 22:38-0400 Respiratory rate 18 /min RASHEL CASTILLOKA DO [facility] 07-27-2023 22:38-0400 Systolic Blood Pressure Non-Invasive 133 1 RASHEL DURESKA DO [facility] 07-27-2023 22:12-0400 Diastolic Blood Pressure Non-Invasive 92 1 RASHEL DURESKA DO [facility] 07-27-2023 22:12-0400 Heart rate 91 /min RASHEL DURESKA DO [facility] 07-27-2023 22:12-0400 Respiratory rate 18 /min RASHEL DURESKA DO [facility] 07-27-2023 22:12-0400 Systolic Blood Pressure Non-Invasive 155 1 RASHEL DURESKA DO [facility] 07-27-2023 21:33-0400 Diastolic Blood Pressure Non-Invasive 68 1 RASHEL DURESKA DO [facility] 07-27-2023 21:33-0400 Heart rate 71 /min RASHEL DURESKA DO [facility] 07-27-2023 21:33-0400 Respiratory rate 18 /min RASHEL DURESKA DO [facility] 07-27-2023 21:33-0400 Systolic Blood Pressure Non-Invasive 163 1 RASHEL DURESKA DO [facility] 07-27-2023 19:48-0400 Body temperature 97.88 [degF] RASHEL DURESKA DO [facility] 07-27-2023 19:48-0400 Heart rate 66 /min RASHEL DURESKA DO [facility] Encounters Encounter Date Encounter Type Care Provider Facility Start: 09-19-2023 ambulatory ARGELIA MILDRED DO Facil ity:B Start: 09-13-2023 End: 09-14-2023 ambulatory ARGELIA LEVY DO Facility:B Start: 09-11-2023 End: 09-12-2023 ambulatory ARGELIA LEVY DO Facility:B Start: 09-02-2023 End: 09-02-2023 Emergency department patient visit ARGELIA LEVY DO Facility:B Start: 09-02-2023 End: 09-02-2023 Emergency department patient visit YAZMIN ANDERS DO [facility] Start: 08-30-2023 End: 08-31-2023 ambulatory ARGELIA LEVY DO Facility:B Start: 08-30-2023 End: 08-30-2023 Patient encounter procedure ARGELIA Victoriano MILDRED DO [facility] Start: 08-21-2023 End: 08-22-2023 ambulatory ARGELIA LEVY DO Facility:B Start: 07-27-2023 End: 07-28-2023 Emergency department patient visit RASHEL SPANGLER DO Facility:B Start: 07-27-2023 End: 07-27-2023 Emergency department patient visit RASHEL SPANGLER DO [facility] Start: 07-26-2023 End: 07-26-2023 Emergency department patient visit DIMPLE GARCIA Facility:B Start: 07-24-2023 End: 07-29-2023 ambulatory ARGELIA LEVY DO Facility:B Start: 07-24-2023 End: 07-28-2023 Outreach Lab ARGELIA Pastrana MILDRDE DO [facility] Start: 07-16-2023 End: 07-17-2023 ambulatory ARGELIA LEVY DO Facility:B Start: 07-16-2023 End: 07-16-2023 Patient encounter procedure ARGELIA LEVY DO [facility] Start: 07-03-2023 End: 07-04-2023 ambulatory ARGELIAHAILE LEVY DO Facility:B Start: 03-21-2023 End: 03-22-2023 ambulatory ARGELIA EASONElly ESTEVEZ Facility:B Start: 03-21-2023 End: 03-21-2023 Patient encounter procedure ARGELIA LEVY DO [facility] Start: 12-26-2022 End: 12-31-2022 ambulatory ARGELIAHAILE WILSONLAElly ESTEVEZ Facility:B Start: 12-26-2022 End: 12-27-2022 ambulatory ARGELIA LEVY Facility:B Start: 12-26-2022 End: 12-30-2022 Outreach Lab ARGELIA LEVY DO [facility] Start: 12-26-2022 End: 12-26-2022 Patient encounter procedure ARGELIA LEVY DO [facility] Start: 08-23-2022 End: 08-23-2022 Patient encounter procedure ARGELIA LEVY DO [facility] Start: 04-19-2022 End: 04-19-2022 Patient encounter procedure ARGELIA LEVY DO [facility] Start: 04-05-2022 End: 04-05-2022 Patient encounter procedure ARGELIA LEVY DO [facility] Start: 12-09-2021 End: 01-25-2022 Physical therapy management ARGELIA LEVY DO [facility] Start: 12-07-2021 End: 12-07-2021 Patient encounter procedure ARGELIA LEVY DO [facility] Start: 10-20-2021 End: 10-20-2021 Patient encounter procedure ARGELIA Pastrana MILDRED DO [facility] Start: 10-13-2021 End: 10-13-2021 Patient encounter procedure ARGELIA Pastrana MILDRED DO [facility] Start: 10-06-2021 End: 10-06-2021 Patient encounter procedure ARGELIA Pastrana MILDRED DO [facility] Start: 08-01-2021 End: 08-01-2021 Patient encounter procedure SHAYNE GONZALEZ CIAIO LUMITE INJECTOR-TEST DEPARTMENT HELPER [facility] Start: 07-06-2021 End: 07-06-2021 Patient encounter procedure SHAYNE GONZALEZ CIAIO LUMITE INJECTOR-TEST DEPARTMENT HELPER [facility] Procedures Date Procedure Procedure Detail Performing Clinician Start: 09-24-2020 Extraction of cataract ARGELIA LEVY DO Immunizations Immunization Date Immunization Notes Care Provider [facility] 07-11-2022 pneumococcal polysaccharide vaccine, 23 valent; Translations: [Pneumovax 23] ARGELIA LEVY DO [facility] 05-17-2021 SARS-CoV-2 (COVID-19 ) mRNA-1273 vaccine ARGELIA LEVY DO [facility] 04-16-2021 SARS-CoV-2 (COVID-19 ) mRNA-1273 vaccine ARGELIA LEVY DO [facility] 06-05-2019 influenza virus vacc ine, unspecified formulation SHAYNE FISH CIAIO LUMITE INJECTOR-TEST DEPARTMENT HELPER [facility] 05-29-2018 influenza virus vacc ine, unspecified formulation SHAYNE FISH CIAIO LUMITE INJECTOR-TEST DEPARTMENT HELPER [facility] 06-07-2017 influenza virus vacc ine, unspecified formulation SHAYNE FISH CIAIO LUMITE INJECTOR-TEST DEPARTMENT HELPER [facility] 05-01-2017 pneumococcal conjuga te vaccine, 13 valent SHAYNE FISH CIAIO LUMITE INJECTOR-TEST DEPARTMENT HELPER [facility] 06-21-2016 influenza virus vacc ine, unspecified formulation SHAYNE FISH CIAIO LUMITE INJECTOR-TEST DEPARTMENT HELPER [facility] 05-25-2016 influenza virus vacc ine, unspecified formulation SHAYNE FISH CIAIO LUMITE INJECTOR-TEST DEPARTMENT HELPER [facility] 05-17-2015 influenza virus vacc ine, unspecified formulation SHAYNE FISH CIAIO LUMITE INJECTOR-TEST DEPARTMENT HELPER [facility] 07-16-2014 influenza virus vacc ine, unspecified formulation SHAYNE FISH CIAIO LUMITE INJECTOR-TEST DEPARTMENT HELPER [facility] 01-12-2011 tetanus toxoid, redu christopher diphtheria toxoid, and acellular pertussis vaccine, adsorbed SHAYNE FISH CIAIO LUMITE INJECTOR-TEST DEPARTMENT HELPER [facility] 04-13-2009 zoster vaccine, live SHAYNE FISH CIAIO LUMITE INJECTOR-TEST DEPARTMENT HELPER [facility] Payers Date Payer Category Payer Medicare [id number] 2022 Unknown [id number] 1945 Unknown [id number] 2.16.8 [id number] 1945 Unknown [id number] 2.16.8 [id number] 1943 Unknown [id number] 2.16.8 [id number] 1943 Unknown [id number] 2.16.8 [id number] 1943 Unknown [id number] 2.16.8 [id number] 1943 Unknown [id number] 2.16.8 [id number] 194 Unknown [id number] 2.16.8 [id number] 1943 Unknown [id number] 2.16.8 [id number] 194 Unknown [id number] 2.16.8 [id number] 1943 Unknown [id number] 2.16.8 [id number] 194 Unknown [id number] 2.16.8 [id number] 194 Unknown [id number] 2.16.8 [id number] 194 Unknown [id number] 2.16.8 [id number] 1943 Unknown [id number] 2.16.8 [id number] Social History Date Type Detail Facility Start: 06-30-2021 Never smoked t obacco (finding) [facility] Sex Assigned At Female [facility] Functional Status Date Assessment Result [facility] 09-02-2023 Functional Status Independent [facility] 07-27-2023 Functional Status Standard Safet y ID band on, Call device within reach, Bed in low position, Wheels locked, Upper/Half-Length side-rails up, Bedside Cart Locked, Safety level maintained [facility] 12-09-2021 Functional Status [facility] Mental Status Date Assessment Result Facility 09-02-2023 Mental Status Orientation Oriented x 4 [facility] 09-02-2023 Mental Status [facility] 07-27-2023 Mental Status Orientation Oriented x 4 [facility] Clinical Notes 08-23-2022 to 09-02-2023 LaboratoryLaboratoryLaboratoryLaboratoryLaboratoryLaboratoryLaboratoryLaboratory LaboratoryLaboratory Note Date & Type Note Facility 09-02-2023 Hospital Discharge instructions Patient Education 09/02/2023 13:11:04 Near Syncope, Unknown Near-Fainting with Uncertain Cause Fainting (syncope) is a temporary loss of consciousness (passing out). This happens when blood flow to the brain is reduced. Near-fainting (near-syncope) is like fainting, but you do not fully pass out. Instead, you feel like you are going to pass out, but do not actually lose consciousness. Signs and symptoms The following are symptoms of near-fainting: Feeling lightheaded or like you are going to faint Weak pulse Nausea Sweating Blurred vision or feeling like your vision is fading Palpitations Chest pain Hard time breathing Feeling cool and clammy Causes This happens when your blood pressure suddenly drops, and not enough blood flows to your brain. Common minor causes include: Sudden emotional stress such as fear, pain, panic, or the sight of blood Straining or overexertion, such as straining while using the toilet, coughing, or sneezing Standing up too quickly, or standing up for too long a time More serious causes include: Very slow, fast, or irregular heart rate (arrhythmia) Dehydration Significant blood loss Medicines, or a recent change in medicines. Medicines that can cause fainting include blood pressure or heart medicines. Heart attack Heart valve problems Remember, even minor causes can become serious if you fall and injure yourself, or are driving. You may need more tests. It is very important that you follow up with your doctor as advised. Home care The following guidelines will help you care for yourself at home: Rest today. Resume your normal activities as soon as you are feeling back to normal. If you become lightheaded or dizzy, lie down right away or sit with your head between your knees. Drink plenty of fluids and don't skip meals. Because the exact cause of your near fainting spell is not known, another spell could occur without warning. To stay safe, do not drive a car or use dangerous equipment. Do not take a bath alone. Use a shower instead. Do not swim alone. You can resume these activities when your healthcare provider says that you are no longer in danger of having a near-fainting spell. Follow-up care Follow up with your healthcare provider, or as advised. Call 911 Call 911 if any of the following occur: Another near-fainting or full fainting spell occurs, and it is not explained by the common causes listed above Chest, arm, neck, jaw, back or abdominal pain Shortness of breath Weakness, tingling, or numbness in one side of the face, or in one arm or leg Slurred speech, confusion, trouble walking or seeing Seizure When to seek medical advice Call your healthcare provider right away if any of these occur: Changes in your medicines Occasional mild lightheadedness, especially when standing up too quickly or straining [phone] [employer]. [address], [place] [address]. All rights reserved. This information is not intended as a substitute for professional medical care. Always follow your healthcare professional's instructions. 09/02/2023 13:11:02 Dizziness, Uncertain Cause Dizziness (Uncertain Cause) Dizziness is a common symptom. It may be described as lightheadedness, spinning, or feeling like you are going to faint. Dizziness can have many causes. Be sure to tell the healthcare provider about: All medicines you take, including prescription, [id number], herbs, and supplements Any other symptoms you have Any health problems you are being treated for Any past major health problems you've had, such as a heart attack, balance issues, hearing problems, or blood pressure problems Anything that causes the dizziness to get worse or better Today's exam did not show an exact cause for your dizziness. Other tests may be needed. Follow up with your healthcare provider. Home care Dizziness that occurs with sudden standing may be a sign of mild dehydration. Drink extra fluids for the next few days. If you recently started a new medicine, stopped a medicine, or had the dose of a current medicine changed, talk with the prescribing healthcare provider. Your medicine plan may need adjustment. If dizziness lasts more than a few seconds, sit or lie down until it passes. This may help prevent injury in case you pass out. Get up slowly when you feel better. Don't drive or use power tools or dangerous equipment until you have had no dizziness for at least 48 hours. Follow-up care Follow up with your healthcare provider for further evaluation within the next 7 days or as advised. When to seek medical advice Call your healthcare provider for any of the following: Worsening of symptoms or new symptoms Passing out or seizure Repeated vomiting Headache Palpitations (the sense that your heart is fluttering or beating fast or hard) Shortness of breath Blood in vomit or stool (black or red color) Weakness of an arm or leg or 1 side of the face Vision or hearing changes Trouble walking or speaking Chest, arm, neck, back, or jaw pain [phone] [employer]. [address] [place] [address], [place] [address]. All rights reserved. This information is not intended as a substitute for professional medical care. Always follow your healthcare professional's instructions. Follow Up Care 09/02/2023 11:01:47 With:ARGELIA LEVY DO Address: [address] [place] [phone] When:2-4 days [facility] 09-02-2023 Emergency department Discharge summary Discharge Instructions Thank you for allowing [facility] to assist you with your healthcare needs. The following is important discharge information regarding your hospital visit. Diagnosis from Today's Visit Dizziness Head pressure What to Do Next Instructions from Your Care Team No qualifying data available. Post Acute Orders No qualifying data available. You Need to Schedule the Following Appointments Follow Up with ARGELIA LEVY DO When Within 2-4 days Where: [address] [facility] [place] [address]- [phone] Allergies ASA/caffeine/propoxyphene (Unknown) Darvon (vomiting) atorvastatin (Unknown) codeine phosphate (Nausea) simvastatin (myalgias) Medications Please ask your primary doctor or pharmacist before taking any other medication not listed, including over the counter drugs, herbal medications, vitamins and or supplements as they may interact with your home medications. What How Much When Why Instructions Last Dose Unchanged amLODIPine (amLODIPine 5 mg oral tablet) 1 tab(s) by mouth Once a day Unchanged atorvastatin (atorvastatin 20 mg oral tablet) 1 tab(s) by mouth Once a day Hyperlipemia, mixed Patient tolerant to atorvastatin, took in past without difficulty Unchanged azelastine nasal (azelastine 205.5 mcg/ inh (0.15%) nasal spray) 1 spray(s) Intranasal Daily at bedtime as needed for Control symptoms Unchanged biotin 1 tab by mouth Once a day Unchanged calcium-vitamin D (Caltrate 600 + D oral tablet) 1 tab(s) by mouth Two (2) times a day Unchanged cyanocobalamin (cyanocobalamin 1000 mcg/ mL injectable solution) 1 Milliliter Subcutaneous Once a month B12 deficiency not sent in - to get at doctor's office Unchanged docusate (Dulcolax Stool Softener 100 mg oral capsule) 1 cap by mouth Two (2) times a day as needed for as needed for constipation Unchanged furosemide (furosemide 20 mg oral tablet) 1 tab(s) by mouth Once a day Essential hypertension Unchanged levothyroxine (levothyroxine 112 mcg (0.112 mg) oral tablet) 1 tab(s) by mouth Once a day Hypothyroidism Take 1 tablet by mouth daily except for Fridays Unchanged meclizine (meclizine 12.5 mg oral tablet) 1 tab(s) by mouth Three (3) times a day as needed for as needed for dizziness Duration: 90 Days Unchanged meloxicam (meloxicam 15 mg oral tablet) 1 tab(s) by mouth Once a day Arthritis take with food Unchanged olmesartan (olmesartan 40 mg oral tablet) 1 tab(s) by mouth Once a day Unchanged potassium chloride (Potassium Chloride (Eqv-K-Tab) 20 mEq oral tablet, extended release) 1 tab(s) by mouth Once a day Hypokalemia Duration: 30 Days Unchanged sertraline (sertraline 50 mg oral tablet) 1 tab(s) by mouth Once a day Recurrent major depression Discontinue Celexa prescription Unchanged sodium chloride (sodium chloride 1000 mg oral tablet) 1 gram(s) by mouth Once a day Hyponatremia Duration: 90 Days Take 1 tablet by mouth daily except 2 tablets on Mondays, Wednesdays and Fridays Unchanged traMADol (traMADol 50 mg oral tablet) Please take this list to your next doctor s visit. Bring all medications you take, including over the counter medications, herbals and other supplements with you to your doctor s visit. Patients and families are reminded to discard old lists and to update any records with all medication providers or retail pharmacies. Education Materials Near-Fainting with Uncertain Cause Fainting (syncope) is a temporary loss of consciousness (passing out). This happens when blood flow to the brain is reduced. Near-fainting (near-syncope) is like fainting, but you do not fully pass out. Instead, you feel like you are going to pass out, but do not actually lose consciousness. Signs and symptoms The following are symptoms of near-fainting: Feeling lightheaded or like you are going to faint Weak pulse Nausea Sweating Blurred vision or feeling like your vision is fading Palpitations Chest pain Hard time breathing Feeling cool and clammy Causes This happens when your blood pressure suddenly drops, and not enough blood flows to your brain. Common minor causes include: Sudden emotional stress such as fear, pain, panic, or the sight of blood Straining or overexertion, such as straining while using the toilet, coughing, or sneezing Standing up too quickly, or standing up for too long a time More serious causes include: Very slow, fast, or irregular heart rate (arrhythmia) Dehydration Significant blood loss Medicines, or a recent change in medicines. Medicines that can cause fainting include blood pressure or heart medicines. Heart attack Heart valve problems Remember, even minor causes can become serious if you fall and injure yourself, or are driving. You may need more tests. It is very important that you follow up with your doctor as advised. Home care The following guidelines will help you care for yourself at home: Rest today. Resume your normal activities as soon as you are feeling back to normal. If you become lightheaded or dizzy, lie down right away or sit with your head between your knees. Drink plenty of fluids and don't skip meals. Because the exact cause of your near fainting spell is not known, another spell could occur without warning. To stay safe, do not drive a car or use dangerous equipment. Do not take a bath alone. Use a shower instead. Do not swim alone. You can resume these activities when your healthcare provider says that you are no longer in danger of having a near-fainting spell. Follow-up care Follow up with your healthcare provider, or as advised. Call 911 Call 911 if any of the following occur: Another near-fainting or full fainting spell occurs, and it is not explained by the common causes listed above Chest, arm, neck, jaw, back or abdominal pain Shortness of breath Weakness, tingling, or numbness in one side of the face, or in one arm or leg Slurred speech, confusion, trouble walking or seeing Seizure When to seek medical advice Call your healthcare provider right away if any of these occur: Changes in your medicines Occasional mild lightheadedness, especially when standing up too quickly or straining [id number] [employer]. [address] [place] [address]. All rights reserved. This information is not intended as a substitute for professional medical care. Always follow your healthcare professional's instructions. Dizziness (Uncertain Cause) Dizziness is a common symptom. It may be described as lightheadedness, spinning, or feeling like you are going to faint. Dizziness can have many causes. Be sure to tell the healthcare provider about: All medicines you take, including prescription, [id number], herbs, and supplements Any other symptoms you have Any health problems you are being treated for Any past major health problems you've had, such as a heart attack, balance issues, hearing problems, or blood pressure problems Anything that causes the dizziness to get worse or better Today's exam did not show an exact cause for your dizziness. Other tests may be needed. Follow up with your healthcare provider. Home care Dizziness that occurs with sudden standing may be a sign of mild dehydration. Drink extra fluids for the next few days. If you recently started a new medicine, stopped a medicine, or had the dose of a current medicine changed, talk with the prescribing healthcare provider. Your medicine plan may need adjustment. If dizziness lasts more than a few seconds, sit or lie down until it passes. This may help prevent injury in case you pass out. Get up slowly when you feel better. Don't drive or use power tools or dangerous equipment until you have had no dizziness for at least 48 hours. Follow-up care Follow up with your healthcare provider for further evaluation within the next 7 days or as advised. When to seek medical advice Call your healthcare provider for any of the following: Worsening of symptoms or new symptoms Passing out or seizure Repeated vomiting Headache Palpitations (the sense that your heart is fluttering or beating fast or hard) Shortness of breath Blood in vomit or stool (black or red color) Weakness of an arm or leg or 1 side of the face Vision or hearing changes Trouble walking or speaking Chest, arm, neck, back, or jaw pain [id number] [employer]. [address] [place] [address]. All rights reserved. This information is not intended as a substitute for professional medical care. Always follow your healthcare professional's instructions. Additional Information VACCINATE! IT SAVES LIVES! Members of the community who have not yet received the COVID-19 vaccine and would like to receive it can visit one of [facility] vaccine clinics. There are many vaccine clinic locations within the [facility]. For locations and available times, please visit [email or web address] It is important to note that some COVID mobile vaccine clinics are held outdoors and may be canceled in rainy or stormy conditions. To learn more about pediatric vaccinations (ages 5-11), we invite you to visit the [facility] webpage. [email or web address]/pa [email or web address]-Ufgyvtddhzt-Freque himz-Mcezh-[email or web address].html To learn more about the COVID-19 vaccine, we invite you to visit the CDC website for a list of frequently asked questions. https://www.cdc.gov/coronavirus/2 019-ncov/vaccines/faq.html [employer] Patient Portal Access Instructions: Stay connected with your healthcare team and access your personal medical information anytime with the [facility] Patient Portal. If you would like a full copy of your medical records please contact the [facility] Medical Records Department Sunday through Sunday between 8a.m. and 4:30p.m. Please follow the directions below to access the portal: 1.Access the email account you provided upon registration to the [facility].2.Look for an invitation email from [facility].3.Open the email and access the invitation link: Accept Invitation to [facility]4.Fill in the required french to create your account. Sign into [email or web address].Vlingo with your username and password that you created in the above steps to stay up to date. You can then view a summary of results, a summary of your visits, and the ability to download your summaries to your computer or send the information securely to a physician. Remember that your healthcare information is confidential, so carefully consider who you will allow to register on the [facility] Patient Portal for access to your information. You can also access the [employer] Patient Portal on the [facility]. Simply click on Health Records under Health Data and then click on the [employer] logo. HOW TO SAFELY DISPOSE OF PRESCRIPTION MEDICATIONS Please use one of the following methods to safely dispose of your unused medications. 1.Use a drug disposal kit: the drug disposal pouch allows you to safely discard your old and unused drugs. Ask your nurse to give you one when you are discharged.2.Visit a local take-back location: Many local pharmacies and police departments have programs that collect old and unwanted prescription drugs. Call your local pharmacy or go to http://bit.ly/6A9Wh7m to find one close to you.3.Make use of household items: Use cat litter or old coffee grounds to dispose medications if other options are not available. Mix your drugs with these household products, seal them in an airtight container and throw it into the garbage. Call [facility]: [phone] to be sure your drugs can be disposed of in this way. Some medicines may require a different approach.4.Never flush your medications down the toilet. IF YOU HAVE BEEN PRESCRIBED AN OPIOIDS FOR PAIN If you have been prescribed an opioid (such as hydrocodone, oxycodone or morphine), it is critical to understand the possible side effects and risks of opioid pain medications. Even when taken as directed, opioids can have several side effects including: Tolerance, meaning you might need to take more of a medication for the same pain relief. Nausea, vomiting and/or constipation. Sleepiness, dizziness, dry mouth, confusion, depression or itching. Physical dependence, meaning you have withdrawal symptoms when a medication is stopped ? this can develop within a few days. KNOW YOUR RESPONSIBILITIES It is important to know exactly how much and how often to take the opioid pain medications you are prescribed. Never take opioids in higher amounts or more often than prescribed. Do not combine opioids with alcohol or other drugs that cause drowsiness, such as benzodiazepines, also known as benzos, including diazepam and alprazolam, muscle relaxants or sleep aids. Never sell or share prescription opioids. This is illegal. Store opioids in a secure place and out of reach of others (including children, family, friends and visitors). The last page(s) of this document has been signed and retained as a CHART COPY Signatures Patient Education Materials Near Syncope, Unknown Dizziness, Uncertain Cause Medication Leaflets My discharge plan and instructions have been reviewed and explained to me and I,JERO LAYNE understand my current condition and have read and understand these discharge instructions. I have received a written copy of the plan/instructions. If I have questions, I am aware that I should contact my doctor. 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 The lungs are clear of focal consolidation. No effusion, pneumothorax, or acute osseous abnormality. IMPRESSION: No radiographic evidence of acute cardiopulmonary process. Interpreted by: Dioni Francois MD Preliminary Report By: Dioni Francois MD Electronically signed By Dioni Francois MD Dictated Date: 09/02/2023 12:13:02 PM Prelim Date: 09/02/2023 12:13:24 PM Sign Date: 09/02/2023 12:13:24 PM Ordering Provider: YAZMIN [facility] 09-02-2023 Note ORIGINAL EXAMINATION: CT OF THE HEAD WITHOUT CONTRAST 09/02/2023 12:07 pm TECHNIQUE: CT of the head was performed without the administration of intravenous contrast. Automated exposure control, iterative reconstruction, and/or weight based adjustment of the mA/kV was utilized to reduce the radiation dose to as low as reasonably achievable. COMPARISON: 06/18/2021 HISTORY: ORDERING SYSTEM PROVIDED HISTORY: Reason for Exam: dizzy FINDINGS: BRAIN/VENTRICLES: There is no acute intracranial hemorrhage, mass effect or midline shift. No abnormal extra-axial fluid collection. There are stable mild dystrophic calcifications in the left basal ganglia. The dooley-white differentiation is maintained without evidence of an acute infarct. There is no evidence of hydrocephalus. ORBITS: The visualized portion of the orbits demonstrate no acute abnormality. SINUSES: The visualized paranasal sinuses and mastoid air cells demonstrate no acute abnormality. SOFT TISSUES/SKULL: No acute abnormality of the visualized skull or soft tissues. IMPRESSION: No acute intracranial abnormality. Interpreted by: Dioni Francois MD Preliminary Report By: Dioni Francois MD Electronically signed By Dioni Francois MD Dictated Date: 09/02/2023 12:11:06 PM Prelim Date: 09/02/2023 12:12:26 PM Sign Date: 09/02/2023 12:12:26 PM Ordering Provider: YAZMIN [facility] 09-02-2023 Note Sinus rhythm Borderline left axis deviation Anteroseptal infarct, old Compared to ECG at 07/27/2023 20:20:02 BORDERLINE ECG Electronic Signature: YAZMIN ANDERS DO 09/02/2023 11:44:59 [facility] 07-27-2023 Note ORIGINAL EXAMINATION: TWO XRAY VIEWS OF THE CHEST 07/27/2023 8:40 pm COMPARISON: June 18, 2021 HISTORY: ORDERING SYSTEM PROVIDED HISTORY: Reason for Exam: Covid positive. c/o htn, nausea, dizziness, and weakness. cough FINDINGS: Slight cardiomegaly is present without vascular congestion. No infiltrate or pleural fluid seen. Minor degenerative changes are noted in the spine. IMPRESSION: No acute process. Interpreted by: Dioni Lynn MD Preliminary Report By: Dioni Lynn MD Electronically signed By Dioni Lynn MD Dictated Date: 07/27/2023 8:42:11 PM Prelim Date: 07/27/2023 8:42:35 PM Sign Date: 07/27/2023 8:42:35 PM Ordering Provider: RASHEL SPANGLER [facility] 07-27-2023 Note Sinus rhythm Borderline left axis deviation Anteroseptal infarct, old Nonspecific repol abnormality, diffuse leads Compared to ECG at 06/20/2021 17:38:08 Electronic Signature: RASHEL SPANGLER DO 07/27/2023 20:35:36 [facility] 07-24-2023 SARS-CoV-2 (COVID-19) RNA YOLANDA+probe Ql (Nph) Positive *ABN* (07/24/23 2:06 PM) AO Auto Urine SS 08-23-2022 Note ORIGINAL EXAMINATION: BONE DENSITOMETRY 08/23/2022 11:52 am TECHNIQUE: A bone density dual x-ray absorptiometry (DEXA) scan was performed of the lumbar spine and left hip. COMPARISON: August 12, 2019 HISTORY: ORDERING SYSTEM PROVIDED HISTORY: Reason for Exam: Osteoporosis Screening FINDINGS: BMD (g/cm2) Lumbar Spine L1-L4: 1.060. T Score Lumbar Spine L1-L4: 0.1 BMD (g/cm2) Left Femoral Neck: 0.825. T Score Left Femoral Neck: -0.2 BMD (g/cm2) Left Hip: 0.999. T Score Left Hip: 0.5 BMD Change from previous Hip: 4.8 BMD Change from previous Lumbar spine: -3.8% IMPRESSION: Normal bone mineral density by WHO criteria. *By the World Health Organization criteria: (Comparing with young normal sex matched population) - Normal: T-score at or above -1 SD (standard deviation) - Osteopenia: T-score between -1 and -2.5 SD - Osteoporosis: T-score at or below -2.5 SD Interpreted by: Raghu Buchnaan DO Preliminary Report By: Raghu Buchanan DO Electronically signed By Raghu Buchanan DO Dictated Date: 08/23/2022 1:31:00 PM Prelim Date: 08/23/2022 1:33:00 PM Sign Date: 08/23/2022 1:33:00 PM Ordering Provider: ARGELIA [facility] 08-23-2022 Note ORIGINAL EXAMINATION: BONE DENSITOMETRY 08/23/2022 11:52 am TECHNIQUE: A bone density dual x-ray absorptiometry (DEXA) scan was performed of the lumbar spine and left hip. COMPARISON: August 12, 2019 HISTORY: ORDERING SYSTEM PROVIDED HISTORY: Reason for Exam: Osteoporosis Screening FINDINGS: BMD (g/cm2) Lumbar Spine L1-L4: 1.060. T Score Lumbar Spine L1-L4: 0.1 BMD (g/cm2) Left Femoral Neck: 0.825. T Score Left Femoral Neck: -0.2 BMD (g/cm2) Left Hip: 0.999. T Score Left Hip: 0.5 BMD Change from previous Hip: 4.8 BMD Change from previous Lumbar spine: -3.8% IMPRESSION: Normal bone mineral density by WHO criteria. *By the World Health Organization criteria: (Comparing with young normal sex matched population) - Normal: T-score at or above -1 SD (standard deviation) - Osteopenia: T-score between -1 and -2.5 SD - Osteoporosis: T-score at or below -2.5 SD Interpreted by: Raghu Buchanan DO Preliminary Report By: Raghu Buchanan DO Electronically signed By Raghu Buchanan DO Dictated Date: 08/23/2022 1:31:00 PM Prelim Date: 08/23/2022 1:33:00 PM Sign Date: 08/23/2022 1:33:00 PM Ordering Provider: ARGELIA LEVY [facility] Evaluation + Plan note Future Appointments Appointment Date:07/27/2021 02:00:00 PM Scheduled Provider:SHAYNE GONZALEZ Location:[facility] Appointment Type:CV OV Appointment Date:09/13/2021 10:00:00 AM Scheduled Provider:ARGELIA LEVY DO Location:[facility] Appointment Type:PC OV Appointment Date:09/29/2021 11:30:00 AM Scheduled Provider:SHAYNE GONZALEZ Location:[facility] Appointment Type:CV OV [facility] Evaluation + Plan note Future Appointments Appointment Date:08/31/2021 02:00:00 PM Scheduled Provider:SHAYNE GONZALEZ Location:[facility] Appointment Type:CV OV Appointment Date:09/13/2021 10:00:00 AM Scheduled Provider:ARGELIA LEVY DO Location:[facility] Appointment Type:PC OV Appointment Date:09/29/2021 11:30:00 AM Scheduled Provider:SHAYNE GONZALEZ Location:[facility] Appointment Type:CV OV [facility] Evaluation + Plan note Future Appointments Appointment Date:03/01/2022 01:15:00 PM Scheduled Provider:SHAYNE GONZALEZ Location:[facility] Appointment Type:CV OV Appointment Date:04/05/2022 11:00:00 AM Scheduled Provider:ARGELIA LEVY DO Location:[facility] Appointment Type:PC OV Future Scheduled TestsBasic Metabolic Panel 10/06/21Thyroid Stimulating Hormone 12/04/21 [facility] Evaluation + Plan note Future Appointments Appointment Date:03/01/2022 01:15:00 PM Scheduled Provider:SHAYNE GONZALEZ Location:[facility] Appointment Type:CV OV Appointment Date:04/05/2022 11:00:00 AM Scheduled Provider:ARGELIA LEVY DO Location:[facility] Appointment Type:PC OV Future Scheduled TestsBasic Metabolic Panel 10/13/21Thyroid Stimulating Hormone 12/04/21 [facility] Evaluation + Plan note Future Appointments Appointment Date:03/01/2022 01:15:00 PM Scheduled Provider:SHAYNE GONZALEZ Location:[facility] Appointment Type:CV OV Appointment Date:04/05/2022 11:00:00 AM Scheduled Provider:ARGELIA LEVY DO Location:[facility] Appointment Type:PC OV Future Scheduled TestsThyroid Stimulating Hormone 12/04/21 [facility] Evaluation + Plan note Future Appointments Appointment Date:12/09/2021 09:30:00 AM Scheduled Provider: Location:[facility] Appointment Type:PT Outpatient Evaluation Appointment Date:03/01/2022 01:15:00 PM Scheduled Provider:SHAYNE GONZALEZ Location:[facility] Appointment Type:CV OV Appointment Date:04/05/2022 11:00:00 AM Scheduled Provider:ARGELIA LEVY DO Location:[facility] Appointment Type:PC OV [facility] Evaluation + Plan note Future Appointments Appointment Date:03/01/2022 01:15:00 PM Scheduled Provider:SHAYNE GONZALEZ Location:[facility] Appointment Type:CV OV Appointment Date:04/05/2022 11:00:00 AM Scheduled Provider:ARGELIA LEVY DO Location:[facility] Appointment Type:PC OV [facility] Evaluation + Plan note Future Appointments Appointment Date:07/11/2022 11:30:00 AM Scheduled Provider:ARGELIA LEVY DO Location:[facility] Appointment Type:PC Wellness Medicare Appointment Date:09/06/2022 01:00:00 PM Scheduled Provider:SHAYNE GONZALEZ Location:[facility] Appointment Type:CV OV Appointment Date:10/10/2022 11:00:00 AM Scheduled Provider:ARGELIA LEVY DO Location:[facility] Appointment Type:PC OV Follow Up Future Scheduled TestsBasic Metabolic Panel 04/19/22 [facility] Evaluation + Plan note Future Appointments Appointment Date:07/11/2022 11:30:00 AM Scheduled Provider:ARGELIA LEVY DO Location:[facility] Appointment Type:PC Wellness Medicare Appointment Date:09/06/2022 01:00:00 PM Scheduled Provider:SHAYNE GONZALEZ Location:[facility] Appointment Type:CV OV Appointment Date:10/10/2022 11:00:00 AM Scheduled Provider:ARGELIA LEVY DO Location:[facility] Appointment Type:PC OV Follow Up [facility] Evaluation + Plan note Future Appointments Appointment Date:09/06/2022 01:00:00 PM Scheduled Provider:SHAYNE GONZALEZ Location:[facility] Appointment Type:CV OV Appointment Date:12/26/2022 11:00:00 AM Scheduled Provider:ARGELIA LEVY DO Location:[facility] Appointment Type:PC OV Follow Up [facility] Evaluation + Plan note Future Appointments Appointment Date:01/29/2023 01:30:00 PM Scheduled Provider:SHAYNE GONZALEZ Location:[facility] Appointment Type:CV OV [facility] Evaluation + Plan note Future Appointments Appointment Date:01/29/2023 01:30:00 PM Scheduled Provider:SHAYNE GONZALEZ Location:[facility] Appointment Type:CV OV Future Scheduled TestsComplete Metabolic Panel 02/26/23 [facility] Evaluation + Plan note Future Appointments Appointment Date:05/01/2023 01:00:00 PM Scheduled Provider:SHAYNE GONZALEZ Location:[facility] Appointment Type:CV OV Appointment Date:07/13/2023 02:00:00 PM Scheduled Provider:ARGELIA LEVY DO Location:[facility] Appointment Type:PC Wellness Medicare Future Scheduled TestsComplete Metabolic Panel 02/26/23 [facility] Evaluation + Plan note Future Appointments Appointment Date:07/24/2023 10:45:00 AM Scheduled Provider: Location:[facility] Appointment Type:PC Nurse Injection Appointment Date:09/07/2023 11:30:00 AM Scheduled Provider:ARGELIA LEVY DO Location:[facility] Appointment Type:PC OV Appointment Date:11/13/2023 01:00:00 PM Scheduled Provider:SHAYNE GONZALEZ Location:[facility] Appointment Type:CV OV Future Scheduled TestsComplete Metabolic Panel 02/26/23 [facility] Evaluation + Plan note Future Appointments Appointment Date:08/21/2023 10:45:00 AM Scheduled Provider: Location:[facility] Appointment Type:PC Nurse Appointment Date:09/07/2023 11:30:00 AM Scheduled Provider:ARGELIA LEVY DO Location:[facility] Appointment Type:PC OV Appointment Date:11/13/2023 01:00:00 PM Scheduled Provider:SHAYNE GONZALEZ Location:[facility] Appointment Type:CV OV Diagnostic Tests PendingUrinalysis 07/27/23 Future Scheduled TestsComplete Metabolic Panel 02/26/23 [facility] Evaluation + Plan note Future Appointments Appointment Date:08/21/2023 10:45:00 AM Scheduled Provider: Location:[facility] Appointment Type:PC Nurse Appointment Date:09/07/2023 11:30:00 AM Scheduled Provider:ARGELIA LEVY DO Location:[facility] Appointment Type:PC OV Appointment Date:11/13/2023 01:00:00 PM Scheduled Provider:SHAYNE GONZALEZ Location:[facility] Appointment Type:CV OV Future Scheduled TestsComplete Metabolic Panel 02/26/23 [facility] Evaluation + Plan note Future Appointments Appointment Date:09/07/2023 11:30:00 AM Scheduled Provider:ARGELIA LEVY DO Location:[facility] Appointment Type:PC OV Appointment Date:09/25/2023 11:30:00 AM Scheduled Provider: Location:[facility] Appointment Type:PC Nurse Appointment Date:11/13/2023 01:00:00 PM Scheduled Provider:SHAYNE GONZALEZ Location:[facility] Appointment Type:CV OV Future Scheduled TestsComplete Metabolic Panel 08/22/23 [facility] Hospital course Narrative No data available for this section [facility] Hospital Discharge instructions No data available for this section [facility] Progress note No data available for this section [facility] Summary Purpose Family History No Family History Records Found Advance Directives No Advanced Directives Records Found Additional Source Comments Care Team (unrecognized sect ion and content) Personnel Name: ARGELIA LEVY DO Address: [address] [place] [id number] [place] Care Team Personnel Name: SHAYNE GONZALEZ Position: P4 Advanced Fire Production Operator Member Role: Gimp Buttonhole Machine Operator Address: Address: [address] [place] [address] [address] [facility] [place] [address]- Name: ARGELIA LEVY DO Position: P4 Physician - Primary Care Member Role: Primary Care Physician Address: Address: [address] [place] [id number]- Name: KRISTIN REYES MD Position: Physician Member Role: Orthopaedist Address: Address: [address] [place] [address], [address] [facility] [place] [address] [place] Name: JONEL MALIN Member Role: Art Appraiser Care Team Related Persons Name: MAXIM LAYNE Name: REJI LAYNE Care Team Personnel Name: FISH, SHAYNE CIAIO LUMITE INJECTOR-TEST DEPARTMENT HELPER Position: P4 Advanced Fire Production Operator Member Role: Gimp Buttonhole Machine Operator Address: Address: [address] [place] [address] [address] [place] [id number]- Name: ARGELIA LEVY DO Position: P4 Physician - Primary Care Member Role: Primary Care Physician Address: Address: [address] [place] [id number]- Name: KRISTIN REYES MD Position: Physician Member Role: Orthopaedist Address: Address: [address] [place] [address] 2 [facility] [place] [address]- [place] Name: JONEL MALIN Member Role: Art Appraiser Care Team Related Persons Name: MAXIM LAYNE Name: REJI LAYNE Care Team Personnel Name: SHAYNE GONZALEZ APRN-TEST DEPARTMENT HELPER Position: P4 Advanced Fire Production Operator Member Role: Gimp Buttonhole Machine Operator Address: Address: [address] [place] [address] [address] [place], [place] [id number]- Name: ARGELIA LEVY DO Position: P4 Physician - Primary Care Member Role: Primary Care Physician Address: Address: [address] [place] [id number]- Name: KRISTIN REYES MD Position: Physician Member Role: Orthopaedist Address: Address: [address] [place] [address] 2 [facility] [place] [address]- [place] Name: JONEL MALIN Member Role: Art Appraiser Care Team Related Persons Name: MAXIM LAYNE Name: REJI LAYNE Care Team Personnel Name: SHAYNE GONZALEZ APRN-TEST DEPARTMENT HELPER Position: P4 Advanced Fire Production Operator Member Role: Gimp Buttonhole Machine Operator Address: Address: [address] [place] [address] [address] [place] [address]- [place] Name: ARGELIA LEVY DO Position: P4 Physician - Primary Care Member Role: Primary Care Physician Address: Address: [address] [place] [address]- [place] Name: KRISTIN REYES MD Position: Physician Member Role: Orthopaedist Address: Address: [address] [place] [address], [address] [place] [address]- Name: JONEL MALIN Member Role: Art Appraiser Care Team Related Persons Name: MAXIM LAYNE Name: REJI LAYNE Care Team Personnel Name: SHAYNE GONZALEZ CIAIO LUMITE INJECTOR-TEST DEPARTMENT HELPER Position: P4 Advanced Fire Production Operator Member Role: Gimp Buttonhole Machine Operator Address: Address: [address] [place] [address] [address] [place] [id number]- Name: ARGELIA LEVY DO Position: P4 Physician - Primary Care Member Role: Primary Care Physician Address: Address: [address] [place] [address]- Name: KRISTIN REYES MD Position: Physician Member Role: Orthopaedist Address: Address: [address] [place] [address] Name: JONEL MALIN Member Role: Art Appraiser Name: Ariella Reese RN Position: RN Member Role: ED RN Name: WALLY Ramirez Position: ED RN Member Role: ED RN Name: RASHEL SPANGLER DO Position: ED Physician Member Role: ED Physician Address: Address: [address] [place] [address] [facility] [address] Care Team Related Persons Name: MAXIM LAYNE Name: REJI LAYNE Care Team Personnel Name: SHAYNE GONZALEZ CIAIO LUMITE INJECTOR-TEST DEPARTMENT HELPER Position: P4 Advanced Fire Production Operator Member Role: Gimp Buttonhole Machine Operator Address: Address: [address] [place] [address] [address] [place] [address]- Name: ARGELIA LEVY DO Position: P4 Physician - Primary Care Member Role: Primary Care Physician Address: Address: [address] [place] [address]- Name: KRISTIN REYES MD Position: Physician Member Role: Orthopaedist Address: Address: [address] [place] [address], [facility] [address] [place] [address]- [place] Name: JONEL MALIN Member Role: Art Appraiser Care Team Related Persons Name: MAXIM LAYNE Name: MAE LAYNENE Care Team Personnel Name: SHAYNE GONZALEZ CIAIO LUMITE INJECTOR-TEST DEPARTMENT HELPER Position: P4 Advanced Fire Production Operator Member Role: Gimp Buttonhole Machine Operator Address: Address: [address] [facility] [address] [place] [address]- Name: ARGELIA LEVY DO Position: P4 Physician - Primary Care Member Role: Primary Care Physician Address: Address: [address] [place] [id number]- Name: KRISTIN REYES MD Position: Physician Member Role: Orthopaedist Address: Address: [address] [place] [address], [address] [facility] [place] [address]- [place] Name: JONEL MALIN Member Role: Art Appraiser Care Team Related Persons Name: MAXIM LAYNE Name: REJI LAYNE Care Team Personnel Name: SHAYNE GONZALEZ Position: P4 Advanced Fire Production Operator Member Role: Gimp Buttonhole Machine Operator Address: Address: [address] [place] [address] [address] [place] [address]- Name: ARGELIA LEVY DO Position: P4 Physician - Primary Care Member Role: Primary Care Physician Address: Address: [address] [place] [address]- Name: KRISTIN REYES MD Position: Physician Member Role: Orthopaedist Address: Address: [address] [place] [address], [address] [facility] [place] [address]- [place] Name: JONEL MALIN Member Role: Art Appraiser Name: YAZMIN ANDERS DO Position: ED Physician Member Role: ED Physician Address: Address: [address] [place] [address]- Care Team Related Persons Name: MAXIM LAYNE Name: REJI LAYNE Care Team (unrecognized sect ion and content) Care Team Personnel Name: SHAYNE GONZALEZTEST DEPARTMENT HELPER Position: P4 Advanced Practice Nurse Med Service: Active Provider Member Role: Gimp Buttonhole Machine Operator Address: Address: [address] [place] [address] [address] [place] [id number]- Name: ARGELIA LEVY DO Position: P4 Physician - Primary Care Med Service: Active Provider Member Role: Primary Care Physician Address: Address: [address] [place] [address] Name: KRISTIN REYES MD Position: Physician Med Service: Orthopedic Member Role: Orthopaedist Address: Address: [address] [place] [address] Name: JONEL MALIN Role: Art Appraiser Care Team Related Persons Name: MAXIM LAYNE Name: REJI LAYNE Care Team Personnel Name: SHAYNE GONZALEZ APRN-TEST DEPARTMENT HELPER Position: P4 Advanced Practice Nurse Med Service: Active Provider Member Role: Gimp Buttonhole Machine Operator Address: Address: [address] [place] [address] Name: ARGELIA LEVY DO Position: P4 Physician - Primary Care Med Service: Active Provider Member Role: Primary Care Physician Address: Address: [address] [place] [address] Name: KRISTIN REYES MD Position: Physician Med Service: Orthopedic Member Role: Orthopaedist Address: Address: [address] [place] [address] Name: JONEL MALIN Member Role: Art Appraiser Care Team Related Persons Name: MAXIM LAYNE Name: REJI LAYNE Care Team Personnel Name: SHAYNE GONZALEZ APRN-TEST DEPARTMENT HELPER Position: P4 Advanced Practice Nurse Member Role: Gimp Buttonhole Machine Operator Address: Address: [address] [place] [address] Name: ARGELIA LEVY DO Position: P4 Physician - Primary Care Member Role: Primary Care Physician Address: Address: [address] [place] [address] Name: KRISTIN REYES MD Position: Physician Member Role: Orthopaedist Address: Address: [address] [place] [address] Name: JONEL MALIN Role: Art Appraiser Care Team Related Persons Name: MAXIM LAYNE Name: REJI LAYNE INFORMATION SOURCE (unrecogn ized section and content) FOR RECORDS PERTAINING TO PATIENTS WHO ARE OR HAVE BEEN ENROLLED IN A CHEMICAL DEPENDENCY/SUBSTANCEABUSE PROGRAM, SOME INFORMATION MAY BE OMITTED. This clinical summary was aggregated from multiple sources. Caution should be exercised in using it in the provision of clinical care. This summary normalizes information from multiple sources, and as a consequence, information in this document may materially change the coding, format and clinical context of patient data. In addition, data may be omitted in some cases. CLINICAL DECISIONS SHOULD BE BASED ON THE PRIMARY CLINICAL RECORDS. [facility]. provides no warranty or guarantee of the accuracy or completeness of information in this document.
== END | disposition home or self-care (01) ==
LOC: CVS 08:51
PROVIDERS: PCP Family Medicine; Referring Provider Internal Medicine Cardiovascular Disease; Visit Provider Internal Medicine Cardiovascular Disease
DX: I25.10 Atherosclerotic heart disease of native coronary artery without angina pectoris (principal)
CPT/HCPCS: 93306; Q9957; A4216; C8929

== ENCOUNTER → 2024-03-20 | Outpatient (CLI) | payer MEDICARE, BC, SELFPAY ==
[2024-03-20 15:18] LABS: Anion Gap 6 (5-15); BUN 19 mg/dL (7-18); BUN/Creat Ratio 15.6 RATIO (10-20); Calcium,Total 8.8 mg/dL (8.5-10.1); Chloride 102 mmol/L (98-107); Creatinine, Serum 1.22 mg/dL (0.55-1.02); EST Glomerular Filtration Rate 45 mL/min (>60); Est Glom Filt Rate - Afr Amer 55 mL/min (>60); Glucose 111 mg/dL (74-106); Magnesium 2.1 mg/dL (1.6-2.6); Potassium 3.9 mmol/L (3.5-5.1); Sodium Level 137 mmol/L (136-145)
== END | disposition home or self-care (01) ==
PROVIDERS: PCP Family Medicine; Referring Provider Internal Medicine Cardiovascular Disease; Visit Provider Internal Medicine Cardiovascular Disease
DX: R00.2 Palpitations (principal); R60.0 Localized edema; I51.89 Other ill-defined heart diseases; R42 Dizziness and giddiness; I49.3 Ventricular premature depolarization
CPT/HCPCS: 36415; 80048; 83735

== ENCOUNTER → 2024-06-10 | Outpatient (CLI) | payer MEDICARE, BC, SELFPAY ==
[2024-06-10 11:34] LABS: Absolute Neutrophil Count 3.9 X10^3/uL (2.0-7.7); Basophil# 0.05 X10^3/uL; Basophil% 0.9 % (0-1); Eosinophil# 0.18 X10^3/uL; Eosinophils% 3.3 % (0-5); Hematocrit 41.7 % (37-47); Hemoglobin 13.5 g/dL (12.0-15.0); Lymphocyte % 16.3 % (19-41); Mean Corp Hgb Conc 32.4 g/dL (32-36); Mean Corpuscular Hgb 28.5 pg (27.0-32.0); Mean Platelet Vol. 9.3 fl (6.2-12.0); Monocyte# 0.44 X10^3/uL; NRBC Flagged by Analyzer 0 % (0-5); Neutrophil # 3.93 X10^3/uL (2.7-7.7); Neutrophil % 71.3 % (47-70); Platelet Count 276 K/mm3 (150-450); RBC Distribution Width CV 12.1 % (11.6-14.6); RBC Distribution Width SD 39.3 fl (35.1-43.9); Red Blood Count 4.74 M/mm3 (4.2-5.4); White Blood Count 5.5 K/mm3 (4.4-11.0)
[2024-06-10 11:47] LABS: Anion Gap 9 (5-15); BNP,B-Type NATRIURETIC PEPTIDE 96.4 pg/mL (0-100); BUN 21 mg/dL (7-18); BUN/Creat Ratio 18.6 RATIO (10-20); Calcium,Total 9.5 mg/dL (8.5-10.1); Chloride 101 mmol/L (98-107); Creatinine, Serum 1.13 mg/dL (0.55-1.02); EST Glomerular Filtration Rate 49 mL/min (>60); Est Glom Filt Rate - Afr Amer 60 mL/min (>60); Glucose 99 mg/dL (74-106); Potassium 4.4 mmol/L (3.5-5.1); Sodium Level 134 mmol/L (136-145)
== END | disposition home or self-care (01) ==
LOC: PAVLAB 11:11
PROVIDERS: PCP Family Medicine; Referring Provider Nurse Practitioner Gerontology; Visit Provider Nurse Practitioner Gerontology
DX: R06.09 Other forms of dyspnea (principal); R06.02 Shortness of breath
CPT/HCPCS: 36415; 80048; 83880; 85025

== ENCOUNTER → 2024-06-23 | Outpatient (CLI) | payer MEDICARE, BC, SELFPAY ==
--- NOTE | 2024-06-25 17:44 | STRESSREP ---
Stress Test Report Date: 06/23/2024 Procedure: Pharmacologic stress nuclear imaging study Indications: Dyspnea on exertion Consent: Per the patient Procedure: The patient underwent pharmacologic (Regadenoson 0.4mg ) evaluation with a peak heart rate of 96 beats per minute (68%predicted maximal heart rate) and a peak blood pressure of 158/86 mmHg. The baseline ECG demonstrated sinus rhythm with ST depressions in inferior and lateral leads. The peak pharmacologic ECG demonstrated exaggeration of baseline ST changes. Nondiagnostic secondary to baseline changes. Frequent PVCs pretest, during infusion and in recovery. There was no complaint of chest discomfort during pharmacologic infusion or recovery. The patient was injected with 11.8 millicuries of technetium 99m Cardiolite and subsequently rest SPECT Cardiolite nuclear imaging was obtained in the horizontal long, vertical long, and short axis views. The patient underwent pharmacologic (Regadenoson) evaluation. The patient was injected with 34.5 millicuries of technetium 99m Cardiolite and subsequently stress SPECT Cardiolite nuclear imaging was obtained in the horizontal long, vertical long, and short axis views. A gated Cardiolite study at peak stress was obtained. The examination was stopped secondary to completion of protocol. Rest and stress SPECT Cardiolite nuclear imaging status post realignment, normalization, and attenuation correction demonstrate no fixed or reversible perfusion defects. There is end systolic thickening and brightening. The gated Cardiolite study demonstrates myocardial thickening and inward wall motion. The reported LVEF is 63%. Impression: 1. Pharmacologic (Regadenoson) evaluation 2. Peak pharmacologic ECG was nondiagnostic secondary to baseline changes. 3. Frequent PVCs noted pretest, during pharmacologic infusion and in recovery. 5. Rest and stress SPECT Cardiolite nuclear imaging demonstrate relative uniform tracer uptake and myocardial perfusion appearing within normal limits. 6. The gated Cardiolite study reports an LVEF of 63%. This note was generated with [employer] software. It may contain incorrect words, spelling, and punctuation that were not noted in checking the note before signing.
== END | disposition home or self-care (01) ==
LOC: CVS 06:30
PROVIDERS: PCP Family Medicine; Referring Provider Nurse Practitioner Gerontology; Visit Provider Nurse Practitioner Gerontology
DX: R06.02 Shortness of breath (principal); I25.10 Atherosclerotic heart disease of native coronary artery without angina pectoris; R42 Dizziness and giddiness; R00.2 Palpitations
CPT/HCPCS: 78452; 93017; 93225; 93226; A9500; A4216; J2785

== ENCOUNTER 2024-12-06 16:30 | Inpatient (IN) | payer MEDICARE, BC, SELFPAY ==
[2024-12-06] VITALS (7 sets, daily range): BP systolic 136–162; BP diastolic 64–106; PULSE 65–86; RESP 18–22; TEMP 36.6–36.7; O2SAT 93–100; BMI 30.9; BMI 28.4
--- NOTE | 2024-12-06 16:41 | CT_ITS ---
EXAM: BRAIN/HEAD WITHOUT CONTRAST CLINICAL HISTORY: HEAD INJURY COMPARISON: None TECHNIQUE: Noncontrast head CT performed. Coronal and sagittal reconstructions performed FINDINGS: Mild global volume loss and chronic small-vessel ischemic change. No findings of acute hemorrhage. No mass effect. No midline shift. No skull fracture. Mild vascular calcification. Normal ventricular size CT/Brain/Head without Contrast IMPRESSION: No acute intracranial abnormality. Senescent changes. Reading Location: [id number]
--- NOTE | 2024-12-06 16:41 | CT_ITS ---
PROCEDURE: SINUS/FACIAL BONE REASON FOR EXAM: HEAD INJURY TECHNIQUE: Noncontrast facial CT performed with multiplanar reconstructions. COMPARISON: None. FINDINGS: Demineralization limits sensitivity Frontal: Frontal sinuses and frontoethmoidal recesses appear clear. Ethmoid: Ethmoid air cells appear clear. Sphenoid: Sphenoid sinuses and sphenoethmoidal recesses appear clear. Maxillary: Maxillary sinuses appear clear. The ostiomeatal units appear widely patent. Turbinates: Unremarkable. Nasal Septum: Midline. No large nasal septal spur. Mastoids/Middle Ears: Partial opacification of the right Vascular calcification. Mild soft tissue swelling CT/Sinus/Facial Bone IMPRESSION: No evidence of acute facial fracture. Senescent changes. One or more dose reduction techniques were used (e.g., Automated exposure contr ol, adjustment of the mA and/or kV according to patient size, use of iterative reconstruction technique). Reading Location: [id number]
--- NOTE | 2024-12-06 16:41 | CT_ITS ---
PROCEDURE: SPINE CERVICAL WITHOUT CONTRAS REASON FOR EXAM: FALL TECHNIQUE: Cervical spine CT without contrast. COMPARISON: None. FINDINGS: Demineralized bones limits sensitivity. Vascular calcification Mild multilevel degenerative disc disease and straightening of the cervical spine. No findings of acute fracture. No high-grade central canal or foraminal stenosis CT/Spine Cervical without Contras IMPRESSION: No evidence of acute cervical spine fracture. Demineralization does limit sens itivity One or more dose reduction techniques were used (e.g., Automated exposure contr ol, adjustment of the mA and/or kV according to patient size, use of iterative reconstruction technique). Reading Location: [id number]
--- NOTE | 2024-12-06 16:44 | ED.VIS.FALL ---
HPI <MEKHI Raza - Last Filed: 12/06/24 18:48> HPI - Fall History of Present Illness Chief Complaint: Fall Narrative Narrative: 79-year-old female with PMH of HTN, HLD, CAD states she has groceries delivered to her porch and she was on her second trip out and bent over when she must have passed out and fell striking her face on the concrete porch. She denies preceding dizziness or lightheadedness. She states she is supposed to move slowly because this has happened to her before. Her neighbor was outside so she yelled for help and he got her cell phone to call her son. When he arrived they were able to get her into a wheelchair she has in the home and she was brought in by EMS who placed a C-collar. Patient's main complaint is left knee pain. She denies headache, visual changes, or nausea or vomiting. She thinks she may be on a blood thinner but does not know the name or reason. PFSH <MEKHI Raza - Last Filed: 12/06/24 18:48> PFSH Medical History Allergic rhinitis Anxiety and depression CAD (coronary artery disease) Krypton disease Chronic hyponatremia COVID-19 Debility Depression Dizziness Fatigue History of endometrial biopsy HTN (hypertension) Hyperlipidemia Hypothyroidism MVP (mitral valve prolapse) Myalgia Osteoarthritis Pulmonary hypertension PVCs (premature ventricular contractions) RLS (restless legs syndrome) Sleep apnea SOB (shortness of breath) Vertigo Vitamin B12 deficiency Vitamin D deficiency Home Medications ?Medication ?Instructions ?Recorded ?Last Taken ?Type atorvastatin 20 mg tablet 20 mg PO DAILY hld 07/28/23 07/30/23 History sodium chloride 1,000 mg soluble 1,000 mg PO BID supplement #60 tabs 07/31/23 07/31/23 Rx tablet acetaminophen 500 mg tablet 1,000 mg (2 x 500 mg) PO Q6H PRN 08/08/23 Unknown Rx PRN Pain Score 1-10 #0 tabs meloxicam 15 mg tablet 15 mg PO DAILY #0 tabs 08/08/23 Unknown Rx aspirin 81 mg tablet,delayed 81 mg PO DAILY #90 tabs 09/04/23 12/06/24 Rx release (Adult Aspirin Regimen) calcium 600 mg-D3 800 unit-mag 40 1 tab PO BID 09/04/23 12/06/24 History ul-sycw-kbfz-joseph-boron chew tablet (Caltrate 600-D Plus Minerals) cyanocobalamin (vitamin B-12) 1,000 mcg PO QMONTH 09/04/23 Unknown History 1,000 mcg capsule olmesartan 40 mg tablet 40 mg PO DAILY see #90 tabs 10/25/23 12/06/24 Rx ipratropium bromide 21 mcg (0.03 2 spray intranasal BID 03/11/24 Unknown History %) nasal spray levocetirizine 5 mg tablet 5 mg PO QDAY 03/11/24 Unknown History Held on 12/06/24. Instructions: pt stopped sertraline 100 mg tablet 100 mg PO QDAY 03/11/24 12/05/24 History levothyroxine 125 mcg tablet 112 mcg PO QDAY 06/10/24 Unknown History liothyronine 5 mcg tablet 5 mcg PO QDAY 12/04/24 12/06/24 History metoprolol tartrate 50 mg tablet 50 mg PO BID #180 tabs 12/04/24 Unknown Rx spironolactone 25 mg tablet 25 mg PO DAILY #90 tabs 12/04/24 Unknown Rx carvedilol 3.125 mg tablet 3.125 mg PO BID 12/06/24 12/06/24 History Allergy/AdvReac Type Severity Reaction Status Date / Time propoxyphene HCl (From Allergy Nausea Verified 12/06/24 16:36 Darvon) atorvastatin AdvReac Intermediate myalgia Verified 12/06/24 16:36 codeine AdvReac Intermediate Nausea Verified 12/06/24 16:36 simvastatin AdvReac Intermediate Myalgia Verified 12/06/24 16:36 Family History Mother CVA (cerebral vascular accident) Father Kimberlee disease Son Krypton disease Brother Heart disease Hypertension Daughter Lupus Arthritis Sister Melanoma Surgical History H/O cone biopsy of cervix H/O dilation and curettage History of tonsillectomy (~1958) Hx of cardiac catheterization (~09/09/20) Hx of cataract extraction (~2020) Hx of myringotomy Hx of tubal ligation (~1982) S/P thyroid biopsy Social History household members: none Smoking Status: Never smoker alcohol intake: never substance use type: does not use caffeine: Yes Type: coffee Number of servings: 2 ROS <MEKHI Raza - Last Filed: 12/06/24 18:48> ROS ED ROS Narrative Constitutional: Negative for fever, chills, malaise. CVS: Negative for chest pain. Respiratory: Negative for shortness of breath. GI: Negative for nausea, vomiting Neuro: Negative for headache. EXAM <MEKHI Raza - Last Filed: 12/06/24 18:48> Physical Exam Narrative Exam Narrative: CONST: Patient sitting in no acute distress. EYES: Normal inspection. PERRL, EOMI. HEAD: Small abrasion right frontal scalp, bruising and swelling on right upper eyelid. 2 small linear lacerations and dried blood on right upper lip does not cross vermilion border. No raccoon eyes or Johnson sign, no epistaxis or nasal septal hematoma, no CSF otorrhea or rhinorrhea. No facial bone tenderness or deformity. NECK: C-collar on. No midline tenderness or step-offs. RESP: No respiratory distress, CTAB. Chest wall nontender. CVS: Regular rate and rhythm, no murmur, no gallop. ABD: Soft and nontender, no guarding or rebound, nondistended. Back: Normal inspection, no midline tenderness. EXTREMITIES: Bilateral upper extremities appear normal, full range of motion, no tenderness, 2+ radial pulses. 3 cm laceration on right palm over the fifth MCP palmar aspect extending around to the dorsal surface. No tendon injury. Bilateral lower extremities notable for left knee swelling with abrasion and tenderness. Very limited range of motion secondary to pain. 5/5 dorsiflexion and plantarflexion. Normal sensation. 2+ DP pulses. NEURO: Alert and answering questions appropriately. PSYCH: Normal affect. Const Vital Signs: 12/06/24 16:31 12/06/24 16:36 12/06/24 17:30 Temperature 98.1 F Temperature Source Temporal Pulse Rate 82 81 Respiratory Rate 22 H Respiratory Effort Normal Non-Labored Blood Pressure 162/88 H 162/106 H Blood Pressure Mean 112 124 Pulse Ox 100 100 Oxygen Delivery Method Room Air Room Air 03/15/25 18:00 Temperature Temperature Source Pulse Rate 65 Respiratory Rate Respiratory Effort Blood Pressure 136/64 H Blood Pressure Mean 88 Pulse Ox 93 Oxygen Delivery Method <Dr. Orville Cortez MD - Last Filed: 12/06/24 19:23> Physical Exam Const Vital Signs: 12/06/24 16:31 12/06/24 16:36 12/06/24 17:30 Temperature 98.1 F Temperature Source Temporal Pulse Rate 82 81 Respiratory Rate 22 H Respiratory Effort Normal Non-Labored Blood Pressure 162/88 H 162/106 H Blood Pressure Mean 112 124 Pulse Ox 100 100 Oxygen Delivery Method Room Air Room Air 12/06/24 18:00 Temperature Temperature Source Pulse Rate 65 Respiratory Rate Respiratory Effort Blood Pressure 136/64 H Blood Pressure Mean 88 Pulse Ox 93 Oxygen Delivery Method MDM <MEKHI Raza - Last Filed: 12/06/24 18:48> [facility] MDM Narrative Medical decision making narrative: Differential includes but not limited to head injury, intracranial hemorrhage, orthostatic hypotension, cardiac etiology 79-year-old female bent over to get groceries and had a syncopal episode and fell injuring her face, right hand, and left knee. She is awake and alert. GCS 15. Vital signs stable. She has facial contusions and a small lip laceration that does not require repair. C-collar in place. No cervical or thoracic or lumbar tenderness is present. Chest stable, nontender. Heart and lung sounds normal. Abdomen soft and nontender. Pelvis stable. She is moving all extremities but left knee motion is significantly limited due to pain and swelling. Distal pulses intact. CT scans of the brain, cervical spine, facial bones are all negative. Chest x-ray negative. Left knee shows acute. Patellar fracture. This was discussed with Dr. Dozier as it will need surgical treatment. Syncopal workup including labs and EKG ordered. WBC is 11.6. Hemoglobin normal at 13.6. Chemistry panel overall unremarkable. EKG sinus rhythm with occasional PVCs. Nonspecific changes. Troponin is 108 however patient has no chest pain so I do not suspect ACS. Serial troponins are ordered. Patient's wounds were cleansed, right hand laceration repaired with 6 sutures, and pain controlled with IV morphine and Zofran x 1. Tetanus update given. I discussed case with the hospitalist for admission. I have personally performed a face to face assessment of the patient and have reviewed the MEJIA Note. I performed a substantive portion of the visit including all aspects of the following. 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 Prior to the incident said she felt fine. States when she bends over she has to take her time her she gets lightheaded and has passed out before. Denies any recent illness.] Exam is [well-appearing 79-year-old female. Vital signs are stable afebrile. Pulse ox 100% on room air. She does not look septic or toxic. H EENT exam pupils round reactive light. She is abrasion and contusion right side of her face and her right upper and lower lip. She has some injuries to the right upper front tooth and right incisor. Lips are swollen. There is no laceration repair. There is bruising. She can open and close her mouth. Neck nontender. Trachea midline. Lungs clear to auscultation bilaterally. Heart regular rate and rhythm rate about 80. Chest wall and ribs nontender. Abdomen soft nontender. Pelvic girdle intact. No shortening or rotation either hip. Left knee is bruised. She has limited range of motion of her left knee due to pain and swelling. No bony deformity. Left lower leg ankle and foot is nontender. Right lower extremity is nontender. Normal dorsi plantarflexion. Upper extremities she is a laceration to her right hand along the metacarpal phalangeal skin crease. It is about 1 to 2 inches in length only repaired. She has normal flexion extension of both hands. No bony deformity or bony tenderness. Wrists forearms elbows and shoulders are nontender. Neurologically she is awake and alert no focal motor deficits. Answering questions following commands.] Medical Decision Making [79-year-old had a syncopal event most likely from being orthostatic will have that workup plus CTs of her face and head and neck. X-ray of her left knee which showed a displaced patella fracture which will need to be repaired. I have already spoken to orthopedics Dr. Ghulam Dozier about that. She will be admitted to the hospitalist.] Other additions or changes: [None] Lab Data Labs: Laboratory Results - last 24 hr 12/06/24 16:35 WBC 11.6 H RBC 4.62 Hgb 13.6 Hct 40.5 MCV 87.7 MCH 29.4 MCHC 33.6 RDW Std Deviation 41.1 RDW Coeff of Alejo 12.9 Plt Count 279 MPV 9.2 Immature Gran % (Auto) 0.500 Neut % (Auto) 85.3 H Lymph % (Auto) 8.6 L Mower % (Auto) 4.0 Eos % (Auto) 1.3 Baso % (Auto) 0.3 Absolute Neuts (auto) 9.9 H Absolute Lymphs (auto) 0.99 Nucleated RBC % 0 Sodium 134 Potassium 4.3 Chloride 97 L Carbon Dioxide 23.1 Anion Gap 14 BUN 16 Creatinine 0.96 Estim Creat Clear Calc 51.06 Est GFR (MDRD) Non-Af 60 BUN/Creatinine Ratio 17.1 Glucose 127 H Calcium 9.5 Troponin T High Sens 108 H* Radiography Diagnostic Testing: Clinical Impression(s) from Imaging Studies Brain CT 12/06/24 16:41 IMPRESSION: No acute intracranial abnormality. Senescent changes. Reading Location: [facility] Cervical Spine CT 12/06/24 16:41 IMPRESSION: No evidence of acute cervical spine fracture. Demineralization does limit sensitivity One or more dose reduction techniques were used (e.g., Automated exposure control, adjustment of the mA and/or kV according to patient size, use of iterative reconstruction technique). Reading Location: [facility] Facial/Sinus 12/06/24 16:41 IMPRESSION: No evidence of acute facial fracture. Senescent changes. One or more dose reduction techniques were used (e.g., Automated exposure control, adjustment of the mA and/or kV according to patient size, use of iterative reconstruction technique). Reading Location: [facility] Chest X-Ray 12/06/24 17:10 IMPRESSION: No acute findings. Senescent changes. Mild cardiac enlargement. Reading Location: [facility] Knee X-Ray 12/06/24 17:10 IMPRESSION: Acute patellar fracture on background demineralization. Reading Location: [facility] Chest x-ray portable, single view, interpreted by myself chronic changes no acute process. ED attending interpretation of left knee shows displaced patellar fracture. <Dr. Orville Cortez MD - Last Filed: 12/06/24 19:23> [facility] MDM Narrative Medical decision making narrative: I have personally performed a face to face assessment of the patient and have reviewed the MEJIA Note. I performed a substantive portion of the visit including all aspects of the following. 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 Prior to the incident said she felt fine. States when she bends over she has to take her time her she gets lightheaded and has passed out before. Denies any recent illness.] Exam is [well-appearing 79-year-old female. Vital signs are stable afebrile. Pulse ox 100% on room air. She does not look septic or toxic. H EENT exam pupils round reactive light. She is abrasion and contusion right side of her face and her right upper and lower lip. She has some injuries to the right upper front tooth and right incisor. Lips are swollen. There is no laceration repair. There is bruising. She can open and close her mouth. Neck nontender. Trachea midline. Lungs clear to auscultation bilaterally. Heart regular rate and rhythm rate about 80. Chest wall and ribs nontender. Abdomen soft nontender. Pelvic girdle intact. No shortening or rotation either hip. Left knee is bruised. She has limited range of motion of her left knee due to pain and swelling. No bony deformity. Left lower leg ankle and foot is nontender. Right lower extremity is nontender. Normal dorsi plantarflexion. Upper extremities she is a laceration to her right hand along the metacarpal phalangeal skin crease. It is about 1 to 2 inches in length only repaired. She has normal flexion extension of both hands. No bony deformity or bony tenderness. Wrists forearms elbows and shoulders are nontender. Neurologically she is awake and alert no focal motor deficits. Answering questions following commands.] Medical Decision Making [79-year-old had a syncopal event most likely from being orthostatic will have that workup plus CTs of her face and head and neck. X-ray of her left knee which showed a displaced patella fracture which will need to be repaired. I have already spoken to orthopedics Dr. Ghulam Dozier about that. She will be admitted to the hospitalist.] Other additions or changes: [None] History & Record Review Discussion w/independent historian: Patient Additional record(s) reviewed:: Prior inpatient record, Prior outpatient record, Prior ED visit and Prior labs Lab Data Attestation: I reviewed the patient's lab results. Lab results narrative: CBC shows a white count 9.6. H&H 13 and 40. Platelets 279. Initial troponin is 108 Labs: Laboratory Results - last 24 hr 12/06/24 16:35 WBC 11.6 H RBC 4.62 Hgb 13.6 Hct 40.5 MCV 87.7 MCH 29.4 MCHC 33.6 RDW Std Deviation 41.1 RDW Coeff of Alejo 12.9 Plt Count 279 MPV 9.2 Immature Gran % (Auto) 0.500 Neut % (Auto) 85.3 H Lymph % (Auto) 8.6 L Mower % (Auto) 4.0 Eos % (Auto) 1.3 Baso % (Auto) 0.3 Absolute Neuts (auto) 9.9 H Absolute Lymphs (auto) 0.99 Nucleated RBC % 0 Sodium 134 Potassium 4.3 Chloride 97 L Carbon Dioxide 23.1 Anion Gap 14 BUN 16 Creatinine 0.96 Estim Creat Clear Calc 51.06 Est GFR (MDRD) Non-Af 60 BUN/Creatinine Ratio 17.1 Glucose 127 H Calcium 9.5 Troponin T High Sens 108 H* Radiography Chest X-Ray - ED: 1 View, Read by ED Physician, Normal, Heart, Lungs, Mediastinum, Bony Structures, No Acute Disease and Chronic Changes Diagnostic Testing: Clinical Impression(s) from Imaging Studies Brain CT 12/06/24 16:41 IMPRESSION: No acute intracranial abnormality. Senescent changes. Reading Location: [facility] Cervical Spine CT 12/06/24 16:41 IMPRESSION: No evidence of acute cervical spine fracture. Demineralization does limit sensitivity One or more dose reduction techniques were used (e.g., Automated exposure control, adjustment of the mA and/or kV according to patient size, use of iterative reconstruction technique). Reading Location: [facility] Facial/Sinus 12/06/24 16:41 IMPRESSION: No evidence of acute facial fracture. Senescent changes. One or more dose reduction techniques were used (e.g., Automated exposure control, adjustment of the mA and/or kV according to patient size, use of iterative reconstruction technique). Reading Location: [facility] Chest X-Ray 12/06/24 17:10 IMPRESSION: No acute findings. Senescent changes. Mild cardiac enlargement. Reading Location: [facility] Knee X-Ray 12/06/24 17:10 IMPRESSION: Acute patellar fracture on background demineralization. Reading Location: [facility] Chest x-ray portable, single view, interpreted by myself chronic changes no acute process. Rhythm Strip Rhythm Strip: Being read as paced. However the patient does not have a pacemaker. Rate: 72 Ectopy: None EKG Initial EKG: Attestation: I personally reviewed and interpreted this EKG as follows: Comments: EKG being read as paced. Patient has no pacemaker. This is artifact from his 2 brain stimulators. Procedures <MEKHI Raza - Last Filed: 12/06/24 18:48> Lacerations Right hand palmar fifth MCP: Length: 1.18 in Depth: Sub Q Shape: Linear Prep: Sterile Conditions Laceration repair: Irrigated, Lidocaine and Local Irrigated (ml): 250 Number of Sutures/Lizemores: 6 Suture Information: Ethilon, Simple and 5-0 Discharge Plan Triage Chief Complaint: Fall ED Midlevel Provider: Rita Nowak ED Provider: Orville Cortez Dx/Rx/DC Orders Clinical Impression: Syncope, Contusion of face, Laceration of lip, Laceration of right hand, Closed fracture of left patella, Unable to ambulate Primary Care Provider: Maria Del Carmen Darby
[2024-12-06] MEDS: Ondansetron 4 MG/2 ML Vial IV (16:47)
[2024-12-06] MEDS: Morphine 4 MG/ML Syringe IV (16:47)
[2024-12-06] MEDS: Diphth,Pertuss(Acell),Tet Vac 0.5 ML Vial IM (16:48)
[2024-12-06 16:51] LABS: Absolute Lymphocyte Count 0.99 X10^3/uL (0.83-4.51); Absolute Neutrophil Count 9.9 X10^3/uL (2.0-7.7); Basophil# 0.03 X10^3/uL; Basophil% 0.3 % (0-1); Eosinophil# 0.15 X10^3/uL; Eosinophils% 1.3 % (0-5); Hematocrit 40.5 % (37-47); Hemoglobin 13.6 g/dL (12.0-15.0); Lymphocyte # 0.99 X10^3/ul (0.83-4.51); Lymphocyte % 8.6 % (19-41); Mean Corp Hgb Conc 33.6 g/dL (32-36); Mean Corpuscular Hgb 29.4 pg (27.0-32.0); Mean Corpuscular Volume 87.7 fL (81-99); Mean Platelet Vol. 9.2 fl (6.2-12.0); Monocyte# 0.46 X10^3/uL; NRBC Flagged by Analyzer 0 % (0-5); Neutrophil # 9.87 X10^3/uL (2.7-7.7); Neutrophil % 85.3 % (47-70); Platelet Count 279 K/mm3 (150-450); RBC Distribution Width CV 12.9 % (11.6-14.6); RBC Distribution Width SD 41.1 fl (35.1-43.9); Red Blood Count 4.62 M/mm3 (4.2-5.4); White Blood Count 11.6 K/mm3 (4.4-11.0)
--- NOTE | 2024-12-06 17:10 | RAD_ITS ---
PROCEDURE: KNEE 1 OR 2 VIEWS REASON FOR EXAM: PAIN TECHNIQUE: Two-view left knee COMPARISON: None. FINDINGS: There is an acute fracture of the patellar body which is displaced approximately 6 mm with a joint effusion. Demineralized bones. No dislocation RAD/Knee 1 or 2 Views IMPRESSION: Acute patellar fracture on background demineralization. Reading Location: [id number]
--- NOTE | 2024-12-06 17:10 | RAD_ITS ---
PROCEDURE: CHEST 1 VIEW (PORTABLE) 12/06/2024 REASON FOR EXAM: FALL TECHNIQUE: Frontal view of the chest. COMPARISON: None. FINDINGS: Mildly enlarged heart. Bronchial thickening. No localizing infiltrate, effusion or pneumothorax. Degenerative changes seen about the right shoulder. Tortuous thoracic aorta. RAD/Chest 1 View (Portable) IMPRESSION: No acute findings. Senescent changes. Mild cardiac enlargement. Reading Location: [facility]
[2024-12-06 17:36] LABS: Troponin T High Sensitivity 108 ng/L (<=14)
--- NOTE | 2024-12-06 17:36 | EKG12_ITS ---
Test Reason : SYNC Blood Pressure : */* mmHG Vent. Rate : 81 BPM Atrial Rate : 81 BPM P-R Int : 142 ms QRS Dur : 96 ms QT Int : 398 ms P-R-T Axes : 66 -23 114 degrees QTcB Int : 462 ms Sinus rhythm with occasional Premature ventricular complexes Nonspecific ST and T wave abnormality Abnormal ECG Confirmed by GENIE BURRELL, ANDREI ([id number]), assignment desk editor SHALINI LOUIS ([id number]) on 12/08/2024 8:18:25 AM Referred By: WRT Confirmed By: ANDREI PRESCOTT MD
[2024-12-06] MEDS: Lidocaine 1% (20 ml mdv) 20 ML Vial INFILT (17:42)
[2024-12-06 17:47] LABS: Anion Gap 14 (5-15); BUN 16 mg/dL (4-19); BUN/Creat Ratio 17.1 RATIO (10-20); Calcium,Total 9.5 mg/dL (7.6-11.0); Carbon Dioxide 23.1 mmol/L (21.0-32.0); Chloride 97 mmol/L (98-108); Creatinine, Serum 0.96 mg/dL (0.70-1.20); EST Glomerular Filtration Rate 60 (>60); Estimated Creatinine Clearance 51.06 ml/min (50-250); Glucose 127 mg/dL (70-99); Potassium 4.3 mmol/L (3.3-5.1); Sodium Level 134 mmol/L (133-145)
--- NOTE | 2024-12-06 18:52 | PCM.HP.STD ---
[facility] - General General Date of Admission: 12/06/24 Date of Service: 12/06/24 Chief Complaint: Acute fall HPI Narrative JERO LAYNE, is a 79 F with past medical history of coronary artery disease, hypertension, dizziness, mitral valve insufficiency, was brought to the ED following a fall while picking up groceries today. Per the patient she had an episode of blackout and when she woke up had blood all over her face and severe pain over her left leg. As background history she has been having episodes of lightheadedness and syncopal episodes and has been following up closely with cardiology for the last few months. No reason for her episodes are not exactly known, she has undergone extensive evaluation including Holter monitoring, pharmacological stress testing, and next plan of action was considered to be CT coronary angio. On her Holter monitor she was noted to have recurrent episodes of NSVT. She is also being planned to be evaluated by neurology for the reason for her presentation. At the time of presentation in the ED, blood pressure 136/64, oxygen saturation 93%, WBC 11.6, hemoglobin 13.6, platelet count 279, sodium 134, potassium 4.3, chloride 97, high-sensitivity troponin was elevated at 108, X-ray showed acute fracture of the patellar body which displaced approximately 6 mm with joint effusion. No evidence of acute facial fracture, Cervical spine fracture, Or intracranial bleed [facility] Medical History Allergic rhinitis Anxiety and depression CAD (coronary artery disease) [place] disease Chronic hyponatremia COVID-19 Debility Depression Dizziness Fatigue History of endometrial biopsy HTN (hypertension) Hyperlipidemia Hypothyroidism MVP (mitral valve prolapse) Myalgia Osteoarthritis Pulmonary hypertension PVCs (premature ventricular contractions) RLS (restless legs syndrome) Sleep apnea SOB (shortness of breath) Vertigo Vitamin B12 deficiency Vitamin D deficiency Home Medications ?Medication ?Instructions ?Recorded ?Last Taken ?Type atorvastatin 20 mg tablet 20 mg PO DAILY hld 07/28/23 07/30/23 History sodium chloride 1,000 mg soluble 1,000 mg PO BID supplement #60 tabs 07/31/23 07/31/23 Rx tablet acetaminophen 500 mg tablet 1,000 mg (2 x 500 mg) PO Q6H PRN 08/08/23 Unknown Rx PRN Pain Score 1-10 #0 tabs meloxicam 15 mg tablet 15 mg PO DAILY #0 tabs 08/08/23 Unknown Rx aspirin 81 mg tablet,delayed 81 mg PO DAILY #90 tabs 09/04/23 Unknown Rx release (Adult Aspirin Regimen) calcium 600 mg-D3 800 unit-mag 40 1 tab PO BID 09/04/23 Unknown History qi-dthp-rcav-joseph-boron chew tablet (Caltrate 600-D Plus Minerals) cyanocobalamin (vitamin B-12) 1,000 mcg PO QMONTH 09/04/23 Unknown History 1,000 mcg capsule olmesartan 40 mg tablet 40 mg PO DAILY see #90 tabs 10/25/23 Unknown Rx ipratropium bromide 21 mcg (0.03 2 spray intranasal BID 03/11/24 Unknown History %) nasal spray levocetirizine 5 mg tablet 5 mg PO QDAY 03/11/24 Unknown History sertraline 100 mg tablet 100 mg PO QDAY 03/11/24 Unknown History levothyroxine 125 mcg tablet 112 mcg PO QDAY 06/10/24 Unknown History liothyronine 5 mcg tablet 5 mcg PO QDAY 12/04/24 Unknown History metoprolol tartrate 50 mg tablet 50 mg PO BID #180 tabs 12/04/24 Unknown Rx spironolactone 25 mg tablet 25 mg PO DAILY #90 tabs 12/04/24 Unknown Rx carvedilol 3.125 mg tablet 3.125 mg PO BID 12/06/24 12/06/24 History Allergy/AdvReac Type Severity Reaction Status Date / Time propoxyphene HCl (From Allergy Nausea Verified 12/06/24 16:36 Darvon) atorvastatin AdvReac Intermediate myalgia Verified 12/06/24 16:36 codeine AdvReac Intermediate Nausea Verified 12/06/24 16:36 simvastatin AdvReac Intermediate Myalgia Verified 12/06/24 16:36 Family History Mother CVA (cerebral vascular accident) Father Kimberlee disease Son Kimberlee disease Brother Heart disease Hypertension Daughter Lupus Arthritis Sister Melanoma Surgical History H/O cone biopsy of cervix H/O dilation and curettage History of tonsillectomy (~1958) Hx of cardiac catheterization (~09/09/20) Hx of cataract extraction (~2020) Hx of myringotomy Hx of tubal ligation (~1982) S/P thyroid biopsy Social History household members: none Smoking Status: Never smoker alcohol intake: never substance use type: does not use caffeine: Yes Type: coffee Number of servings: 2 ROS Review of Systems ROS Unobtainable: Denies due to encephalopathy, due to endotracheal tube, due to mental condition, due to mental status or other Constitutional Constitutional: Denies anorexia, change in weight, chills, fatigue, fever(s), malaise, night sweats, weakness or other Eyes Eyes: Denies blurry vision, change in eye color, change in vision, discharge from eye(s), double vision, erythema, eye pain, loss of vision or other ENT HEENT: Denies abnormal hearing, dysphagia, ear pain, epistaxis, headache(s), hearing loss, nasal congestion, nasal discharge, post nasal drip, sinus pressure, sore throat or other Cardiovascular Cardiovascular: Reports lightheadedness, rapid heart rate and syncope Respiratory/Chest Respiratory/Chest: Denies cough, dyspnea, excessive phlegm production, hemoptysis, productive cough, shortness of breath at rest, shortness of breath with exertion, wheezing or other Gastrointestinal Gastrointestinal: Denies abdominal pain, coffee ground emesis, constipation, diarrhea, dyspepsia, hematemesis, hematochezia, loose stools, melena, nausea, vomiting or other Genitourinary Genitourinary: Denies burning urination, difficulty urinating, dysuria, hematuria, nocturia, urinary frequency, urinary hesitancy, urinary incontinence, urinary urgency or other Musculoskeletal Musculoskeletal: Denies arthralgias, back pain, joint pain, joint stiffness, joint swelling, myalgias, neck pain or other Neurologic Neurologic: Reports disequilibrium, dizziness and syncope Psychiatric Psychiatric: Denies anxiety, depression, homicidal ideation, suicidal ideation or other Endocrine Endocrinology: Denies change in body appearance, cold intolerance, excessive sweating, heat intolerance, polydipsia, polyuria or other Hematologic/Lymphatic Hematologic/Lymphatic: Denies anemia, easy bleeding, easy bruising, lymphadenopathy or other Allergic/Immunologic Allergic/Immunologic: Denies rhinitis, hives, eczemia, asthma or other Vital Signs Vital Signs Vital Signs: 12/06/24 16:31 12/06/24 16:36 12/06/24 17:30 Temperature 98.1 F Temperature Source Temporal Pulse Rate 82 81 Respiratory Rate 22 H Respiratory Effort Normal Non-Labored Blood Pressure 162/88 H 162/106 H Blood Pressure Mean 112 124 Pulse Ox 100 100 Oxygen Delivery Method Room Air Room Air 12/06/24 18:00 Temperature Temperature Source Pulse Rate 65 Respiratory Rate Respiratory Effort Blood Pressure 136/64 H Blood Pressure Mean 88 Pulse Ox 93 Oxygen Delivery Method Weight Weight: 191 lb 12.835 oz Body Mass Index (BMI) 30.9 Physical Exam Const alert and oriented x3 Constitutional Narrative: Patient in significant pain because of her patellar fracture HEENT normocephalic HEENT Narrative: Small abrasion right frontal scalp, bruising and swelling on right upper eyelid. 2 small linear lacerations and dried blood on right upper lip does not cross vermilion border. Eyes PERRL Resp normal respiratory effort and no retractions Cardio regular rate and regular rhythm Cardio Narrative: Tachycardia present GI normal to inspection, nondistended, normoactive bowel sounds Extremity Extremity Narrative: Pain with movement, swelling present. 3 cm laceration on right palm over the fifth MCP palmar aspect extending around to the dorsal surface Neuro oriented x3 and CN's II-XII intact bilaterally Results Lab / Micro Data 12/06/24 16:35 12/06/24 16:35 Labs: Laboratory Results - last 24 hr 12/06/24 16:35: WBC 11.6 H, RBC 4.62, Hgb 13.6, Hct 40.5, MCV 87.7, MCH 29.4, MCHC 33.6, RDW Std Deviation 41.1, RDW Coeff of [place]jo 12.9, Plt Count 279, MPV 9.2, Immature Gran % (Auto) 0.500, Neut % (Auto) 85.3 H, Lymph % (Auto) 8.6 L, [place] % (Auto) 4.0, Eos % (Auto) 1.3, Baso % (Auto) 0.3, Absolute Neuts (auto) 9.9 H, Absolute Lymphs (auto) 0.99, Nucleated RBC % 0, Sodium 134, Potassium 4.3, Chloride 97 L, Carbon Dioxide 23.1, Anion Gap 14, BUN 16, Creatinine 0.96, Estim Creat Clear Calc 51.06, Est GFR (MDRD) Non-Af 60, BUN/Creatinine Ratio 17.1, Glucose 127 H, Calcium 9.5, Troponin T High Sens 108 H* Imaging Radiology Impression Brain CT 12/06/24 16:41 IMPRESSION: No acute intracranial abnormality. Senescent changes. Reading Location: [facility] Cervical Spine CT 12/06/24 16:41 IMPRESSION: No evidence of acute cervical spine fracture. Demineralization does limit sensitivity One or more dose reduction techniques were used (e.g., Automated exposure control, adjustment of the mA and/or kV according to patient size, use of iterative reconstruction technique). Reading Location: [facility] Facial/Sinus 12/06/24 16:41 IMPRESSION: No evidence of acute facial fracture. Senescent changes. One or more dose reduction techniques were used (e.g., Automated exposure control, adjustment of the mA and/or kV according to patient size, use of iterative reconstruction technique). Reading Location: [facility] Chest X-Ray 12/06/24 17:10 IMPRESSION: No acute findings. Senescent changes. Mild cardiac enlargement. Reading Location: [facility] Knee X-Ray 12/06/24 17:10 IMPRESSION: Acute patellar fracture on background demineralization. Reading Location: [facility] Echocardiogram 09/26/2023: Interpretation Summary The left ventricular ejection fraction is 55 %. Stage 1 diastolic dysfunction. Mild (1+) mitral valve insufficiency. Moderate (2+) eccentric tricuspid valve insufficiency. ECHOCARDIOGRAM 08/01/21: SUMMARY 1. Left ventricle: The cavity size is normal. Wall thickness is normal. Systolic function is mildly reduced. The estimated ejection fraction is 50%. There is mild diffuse hypokinesis. Diastolic dysfunction is present. 2. Mitral valve: There is mild regurgitation. 3. Left atrium: The atrium is mildly dilated. 4. Right ventricle: The RV systolic pressure by Doppler is 41 mmHg. 5. Right atrium: The atrium is mildly dilated. Stress Test 06/25/2024: Impression: 1. Pharmacologic (Regadenoson) evaluation 2. Peak pharmacologic ECG was nondiagnostic secondary to baseline changes. 3. Frequent PVCs noted pretest, during pharmacologic infusion and in recovery. 5. Rest and stress SPECT Cardiolite nuclear imaging demonstrate relative uniform tracer uptake and myocardial perfusion appearing within normal limits. 6. The gated Cardiolite study reports an LVEF of 63%. STRESS TEST 09/02/20: IMPRESSION 1. EKG portion of Lexiscan stress test is uninterpretable due to abnormal baseline. 2. Results of nuclear images will be reported separately. 3. Dr Mas was available through telephone/telehealth during stress test. IMPRESSION 1. Technically difficult study due to subdiaphragmatic tracer activity as well as breast attenuation. 2. Small area of ischemia involving distal anterolateral, anterior segments and apex versus shifting breast attenuation artifact. No evidence of prior infarct. 3. Normal systolic function with ejection fraction of 63%. 4. No prior studies for comparison. 14-Day Cardiac Event Monitor 10/14/2024: Findings: -The predominant rhythm was sinus with frequent ventricular ectopy. -The maximum heart rate recorded was 175 bpm, 09/13 10:56:21, the minimum heart rate recorded was 41 bpm, 09/08 04:06:40, and the average heart rate was 64 bpm. -There were 82, 158 VE beats with a burden of 6%. There was 1 occurrence of ventricular tachycardia with the fastest episode 140 bpm, 09/07 22:59:49, and the longest episode 4 beats, 09/07 22:59:49. -There were 3,430 SVE beats with a burden of <1%. There were 73 occurrences of supraventricular tachycardia with the fastest episode 175 bpm, 09/13 10:56:19, and the longest episode 13 beats, 09/13 23:15:00. -Other rhythms in this study include: Ventricular Run. -There were 19 patient triggers. 24-Hour Event Monitor 06/25/2024: Interpretation: [place] [address] beats recorded over the 24 hour period. Normal Sinus Rhythm with frequent PVCs and rare PACs. Average heart rate was 66 BPM Minimum heart rate was 43 BPM at 0712 AM, sinus bradycardia Maximum heart rate was 118 BPM at 1222 AM, sinus rhythm The longest R-R interval was 1.8 seconds at 0634 AM There were a total of 4012 premature ventricular ectopic isolated beats, comprising of 4.3% of the total QRS complexes. 1 triplet, 23 couplets, 29 interpolated beats, 4 trigeminy beats, and 109 bigeminy beats. No runs noted. There were a total of 72 premature supraventricular ectopic isolated beats, comprising of 0.1% of the total QRS complexes. 3 atrial runs. The longest and fastest run consisted of 6 beats with a maximum heart rate of 141 BPM at 0701 AM. No atrial fibrillation noted. The patient kept a diary with a feeling of being tired after her stress test. 7 DAY EVENT MONITOR 12/20/22-12/26/22: IMPRESSION bus monitor significant for normal sinus rhythm background and rare isolated asymptomatic premature atrial and ventricular beats in singles. No major dysrhythmias recorded. 1 run of 7 beat nonsustained ventricular tachycardia was noted no symptom to arrhythmia correlation could be performed. Min HR 42 BPM Max HR 172 BPM Avg HR 58 BPM CARDIAC CATHETERIZATION 09/09/20: SUMMARY 1. Left ventricle: Systolic function is normal. The estimated ejection fraction is 55-60%. 2. LAD: Mid vessel lesion: There is 40% stenosis. 3. Left circumflex: Mid vessel lesion: There is 40% stenosis. Assessment & Plan Assessment/Plan (1) Closed fracture of left patella: PLAN: Plan 79-year-old female with history of coronary artery disease, dizziness, presents to the ED with concerns regarding fall resulting in left patellar fracture. #Left vertebral fracture #Unable to mobilize -Appreciate orthopedics input, plan for possible surgical intervention tomorrow -Pain control with opioids as needed, she is in significant pain at this time -Rest and elevation of the limb, mobilize in the ED #Recurrent syncopal episodes #Dizziness -Follows with cardiology, etiology is not known -Repeat NT proBNP levels -Will hold off her beta-blockers and diuretics at this time as it could be partly putting to her orthostatic symptoms -Continue olmesartan for now if no improvement we can consider stopping that and observing changes in her blood pressure also #NSVT -Has had extensive Holter monitoring in the past -Follow-up on troponin levels, hold off beta-blockers and diuretics at this time. #Coronary artery disease -Follows up with outpatient cardiology -CT angiography as an outpatient #Acute pain -Controlled with opioids, joint immobilization # Hypertension -Continue home medications #DVT prophylaxis -Enoxaparin subcutaneous #CODE STATUS -She is DNR CCA, agreeable to be full code for the procedure
[2024-12-06] MEDS: Morphine 2 MG/ML Syringe IV (19:05)
--- NOTE | 2024-12-06 19:30 | CASEMGMT ---
Care Management Face to Face with patient for initial transition planning/care coordination assessment in the ED.? This manual writer introduced self and role at [facility]. Patient alert and oriented. Patient willing to participate in assessment and is able to answer all questions appropriately.? Care providers, pharmacy, and demographics verified. Patient?s son Dwain and his were also present which patient consented to. ?Due to the amount of pain patient was in, patient?s son did most of the talking. Admitting Diagnosis: Closed fracture of left patella Other diagnosis history: Including but may not be limited to: HTN, HDL, CAD, Anxiety, Depression, [place] disease, Hypothyroidism, MVP, Myalgia, Osteoarthritis, RLS and Vertigo. PCP: Dr. Maria Del Carmen Darby Specialists: Cardio: Dr. Andrew and patient has an appointment in December with a neurologist through [place]; name unknown. Preferred Pharmacy: [facility] Pharmacy Insurance: Yes; Blue Cross/Blue Shield Prescription Benefit: Yes, with co-pay Living Will/HPOA: ?Yes; son to bring in most updated copy. LNOK: Patient is and has 2 daughters, Alok of [facility] and Ayesha of [place] and a son, Dwain of [place]. Living Arrangements: Patient currently lives alone in a two-story farmhouse which patient?s son transformed everything into first floor living with patient so she doesn?t have to go up/down steps. Patient does not have any steps leading in/out of her front door. Transportation: Patients son. DME: Rollator, lift chair, grab bars by the toilet and shower, (patient gets sponge baths), RTS and a C-PAP machine. HHC: Not previously but needs. SNF/Rehab: TCU Community Resources: ?None at this time. Behavioral Health History: Depression and anxiety Patient goals: Patient?s son requested information on [place] facilities which professor of social work provided. (written) Patient?s son not sure if it will be safe for member to discharge home once she?s medically ready as patient has had 5 falls since 2023. If member does ever discharge back to home, professor of social work recommended an ERD with fall detection and patient?s son also stated patient would need HHC. Disposition Plan: admission to acute; RN CM/SW to follow for discharge planning needs that may arise. Bethanie Connor, FILAMENT MAKER, DAIRY WORKER
[2024-12-06 20:02] LABS: Troponin T High Sens 2 HR 178 ng/L (<=14)
[2024-12-06] MEDS: 0.9% Saline Lock 10 ML Syringe IV ×2 (20:38→22:18)
[2024-12-06] MEDS: Acetaminophen 500 MG Tablet 1000 MG PO (21:01)
[2024-12-06 21:15] LABS: Troponin T High Sens 2 HR 184 ng/L (<=14)
[2024-12-06] MEDS: HYDROmorphone Inj 0.2 MG/ML SYRINGE IV (22:17)
[2024-12-07] MEDS: 0.9% Saline Lock 10 ML Syringe IV ×4 (02:53→21:29)
[2024-12-07] MEDS: HYDROmorphone Inj 0.2 MG/ML SYRINGE IV ×3 (02:53→14:40)
[2024-12-07 05:55] LABS: Absolute Lymphocyte Count 0.97 X10^3/uL (0.83-4.51); Absolute Neutrophil Count 5.7 X10^3/uL (2.0-7.7); Basophil# 0.02 X10^3/uL; Basophil% 0.3 % (0-1); Eosinophil# 0.03 X10^3/uL; Eosinophils% 0.4 % (0-5); Hemoglobin 12.9 g/dL (12.0-15.0); Lymphocyte # 0.97 X10^3/ul (0.83-4.51); Lymphocyte % 13.1 % (19-41); Mean Corp Hgb Conc 33.1 g/dL (32-36); Mean Corpuscular Hgb 29.3 pg (27.0-32.0); Mean Corpuscular Volume 88.6 fL (81-99); Mean Platelet Vol. 9.7 fl (6.2-12.0); Monocyte# 0.61 X10^3/uL; Monocyte% 8.3 % (0-10); NRBC Flagged by Analyzer 0 % (0-5); Neutrophil # 5.73 X10^3/uL (2.7-7.7); Neutrophil % 77.5 % (47-70); Platelet Count 263 K/mm3 (150-450); RBC Distribution Width SD 42.5 fl (35.1-43.9); White Blood Count 7.4 K/mm3 (4.4-11.0)
[2024-12-07] MEDS: Liothyronine 5 MCG Tablet PO (06:38)
[2024-12-07] MEDS: Acetaminophen 500 MG Tablet 1000 MG PO ×3 (06:39→21:25)
[2024-12-07] MEDS: Levothyroxine 112 MCG Tablet PO (06:39)
[2024-12-07 06:58] LABS: Phosphorus 4.2 mg/dL (2.7-4.5)
[2024-12-07 07:04] LABS: ALB/GLOB Ratio 1.6 RATIO (0.9-2.4); AST(SGOT) 33 U/L (<=31); Alanine Aminotransfer ALT/SGPT 17 U/L (<=34); Albumin, Serum 3.9 g/dL (3.4-4.8); Alkaline Phosphatase 66 U/L (35-104); Anion Gap 13 (5-15); BUN 19 mg/dL (4-19); BUN/Creat Ratio 20.6 RATIO (10-20); Bilirubin, Direct 0.29 mg/dL (0.00-0.30); Calcium,Total 9.3 mg/dL (7.6-11.0); Carbon Dioxide 21.9 mmol/L (21.0-32.0); Chloride 97 mmol/L (98-108); Creatinine, Serum 0.93 mg/dL (0.70-1.20); EST Glomerular Filtration Rate 62 (>60); Estimated Creatinine Clearance 50.58 ml/min (50-250); Globulin 2.5 g/dL (2.2-4.2); Glucose 98 mg/dL (70-99); Potassium 4.2 mmol/L (3.3-5.1); Protein, Total 6.3 g/dL (5.9-8.4); Sodium Level 132 mmol/L (133-145); Total Bilirubin 0.68 mg/dL (0.00-1.30)
--- NOTE | 2024-12-07 08:43 | CONS.ORTHO ---
HPI Consult Data Date of Consult: 12/07/24 HPI Narrative HPI Narrative: JERO LAYNE, is a 79 F who presents today with left knee pain. Patient has extensive cardiac history and recently has been having episodes of fainting. 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 She has been having these episodes for about a year now and is working extensively with cardiology. She has had a 24-hour Holter monitor and in speaking with the medicine service there seems to been some plan for cardiac catheterization. Ultimately, when she fell she hit her face and her left knee. She presented to the emergency department left knee pain was found to have a displaced patella fracture. She was placed in a knee immobilizer and admitted overnight as she was unable to ambulate at that point. Additionally, series of troponins performed on admission showed progressive elevation. She was admitted to the PCU. At baseline patient reports that she lives on her own. She does the majority of her cooking and cleaning however her daughter comes from from out of town and helps her with some of the cleaning responsibilities. Her son orders her groceries and has them delivered to the home. She [place] but her living quarters are on 1 floor with the bathroom and bedroom on the main floor. She does use a walker/rollator throughout the home, but does not use in the bathroom. [facility] Medical History Vertigo PVCs (premature ventricular contractions) SOB (shortness of breath) Sleep apnea Vitamin D deficiency RLS (restless legs syndrome) Pulmonary hypertension Myalgia MVP (mitral valve prolapse) Dizziness CAD (coronary artery disease) Vitamin B12 deficiency Fatigue Osteoarthritis Depression Debility Kimberlee disease History of endometrial biopsy COVID-19 Chronic hyponatremia Anxiety and depression Hypothyroidism Allergic rhinitis Hyperlipidemia HTN (hypertension) Home Medications ?Medication ?Instructions ?Recorded ?Last Taken ?Type atorvastatin 20 mg tablet 20 mg PO DAILY hld 07/28/23 07/30/23 History sodium chloride 1,000 mg soluble 1,000 mg PO BID supplement #60 tabs 07/31/23 07/31/23 Rx tablet acetaminophen 500 mg tablet 1,000 mg (2 x 500 mg) PO Q6H PRN 08/08/23 Unknown Rx PRN Pain Score 1-10 #0 tabs meloxicam 15 mg tablet 15 mg PO DAILY #0 tabs 08/08/23 Unknown Rx aspirin 81 mg tablet,delayed 81 mg PO DAILY #90 tabs 09/04/23 12/06/24 Rx release (Adult Aspirin Regimen) calcium 600 mg-D3 800 unit-mag 40 1 tab PO BID 09/04/23 12/06/24 History gy-dncw-ogxt-joseph-boron chew tablet (Caltrate 600-D Plus Minerals) cyanocobalamin (vitamin B-12) 1,000 mcg PO QMONTH 09/04/23 Unknown History 1,000 mcg capsule olmesartan 40 mg tablet 40 mg PO DAILY see #90 tabs 10/25/23 12/06/24 Rx ipratropium bromide 21 mcg (0.03 2 spray intranasal BID 03/11/24 Unknown History %) nasal spray levocetirizine 5 mg tablet 5 mg PO QDAY 03/11/24 Unknown History Held on 12/06/24. Instructions: pt stopped sertraline 100 mg tablet 100 mg PO QDAY 03/11/24 12/05/24 History levothyroxine 125 mcg tablet 112 mcg PO QDAY 06/10/24 Unknown History liothyronine 5 mcg tablet 5 mcg PO QDAY 12/04/24 12/06/24 History metoprolol tartrate 50 mg tablet 50 mg PO BID #180 tabs 12/04/24 Unknown Rx spironolactone 25 mg tablet 25 mg PO DAILY #90 tabs 12/04/24 Unknown Rx carvedilol 3.125 mg tablet 3.125 mg PO BID 12/06/24 12/06/24 History Allergy/AdvReac Type Severity Reaction Status Date / Time propoxyphene HCl (From Allergy Nausea Verified 12/06/24 16:36 Darvon) atorvastatin AdvReac Intermediate myalgia Verified 12/06/24 16:36 codeine AdvReac Intermediate Nausea Verified 12/06/24 16:36 simvastatin AdvReac Intermediate Myalgia Verified 12/06/24 16:36 Family History Mother CVA (cerebral vascular accident) Father [place] disease Son Kimberlee disease Brother Heart disease Hypertension Daughter Lupus Arthritis Sister Melanoma Surgical History Hx of cataract extraction (~2020) Hx of cardiac catheterization (~09/09/20) History of tonsillectomy (~1958) Hx of tubal ligation (~1982) H/O cone biopsy of cervix H/O dilation and curettage Hx of myringotomy S/P thyroid biopsy Social History household members: none Smoking Status: Never smoker alcohol intake: never substance use type: does not use caffeine: Yes Type: coffee Number of servings: 2 ROS Constitutional Constitutional: Reports as per HPI Eyes Eyes: Reports as per HPI ENT HEENT: Reports other Details: Facial contusions Cardiovascular Cardiovascular: Reports as per HPI Respiratory/Chest Respiratory/Chest: Reports as per HPI Gastrointestinal Gastrointestinal: Reports as per HPI Genitourinary Genitourinary: Reports as per HPI Musculoskeletal Musculoskeletal: Reports as per HPI Integumentary Integumentary: Reports as per HPI Neurologic Neurologic: Reports other Details: Reports some occasional confusion Psychiatric Psychiatric: Reports as per HPI Endocrine Endocrinology: Reports as per HPI Hematologic/Lymphatic Hematologic/Lymphatic: Reports other Details: History of [place] disease Allergic/Immunologic Allergic/Immunologic: Reports as per HPI Vital Signs Vital Signs Vital Signs: 12/06/24 16:31 12/06/24 16:36 12/06/24 17:30 Temperature 98.1 F Temperature Source Temporal Pulse Rate 82 81 Respiratory Rate 22 H Respiratory Effort Normal Non-Labored Respiratory Depth Respiratory Pattern Blood Pressure 162/88 H 162/106 H Blood Pressure Mean 112 124 Blood Pressure Source Blood Pressure Position Blood Pressure Location Pulse Ox 100 100 Oxygen Delivery Method Room Air Room Air 12/06/24 18:00 12/06/24 19:00 12/06/24 19:02 Temperature 98.1 F Temperature Source Pulse Rate 65 76 86 Respiratory Rate 18 18 Respiratory Effort Respiratory Depth Respiratory Pattern Blood Pressure 136/64 H 155/84 H 142/91 H Blood Pressure Mean 88 107 108 Blood Pressure Source Blood Pressure Position Blood Pressure Location Pulse Ox 93 96 100 Oxygen Delivery Method 12/06/24 19:45 12/06/24 22:00 12/07/24 04:38 Temperature 98 F Temperature Source Oral Pulse Rate 76 Respiratory Rate 19 H Respiratory Effort Normal Normal Respiratory Depth Normal Normal Respiratory Pattern Normal Normal Blood Pressure 138/84 H Blood Pressure Mean 102 Blood Pressure Source Monitor Blood Pressure Position Semi-Fowlers Blood Pressure Location Left Arm Pulse Ox 98 Oxygen Delivery Method Room Air Room Air Room Air Weight Weight: 176 lb 2.389 oz Body Mass Index (BMI) 28.4 Physical Exam Const alert and oriented x3 HEENT HEENT Narrative: Facial contusions Eyes PERRL Neck no JVD Resp normal respiratory effort Cardio Cardio Narrative: 2+ distal pulses GI non-distended Extremity Extremity Narrative: Left lower extremity: Patient has abrasions on the knee. Effusion around the left knee. Patient does have an intact extensor mechanism. Unable to perform a full straight leg raise however with her thigh elevated patient is able to maintain knee extension against gravity. Positive dorsiflexion EHL plantarflexion. She does have some limited passive dorsiflexion. 2+ DP pulse. Skin Skin Narrative: Facial contusions, abrasion over anterior left knee. Neuro CN's II-XII intact bilaterally Psych affect normal Medical Records Data Attestation: I reviewed the patient's medical records Lab / Micro Data Attestation: I reviewed the patient's lab results. 12/07/24 04:41 12/07/24 04:41 Labs: Laboratory Results - last 24 hr 12/06/24 16:35: WBC 11.6 H, RBC 4.62, Hgb 13.6, Hct 40.5, MCV 87.7, MCH 29.4, MCHC 33.6, RDW Std Deviation 41.1, RDW Coeff of [place] 12.9, Plt Count 279, MPV 9.2, Immature Gran % (Auto) 0.500, Neut % (Auto) 85.3 H, Lymph % (Auto) 8.6 L, [place] % (Auto) 4.0, Eos % (Auto) 1.3, Baso % (Auto) 0.3, Absolute Neuts (auto) 9.9 H, Absolute Lymphs (auto) 0.99, Nucleated RBC % 0, Sodium 134, Potassium 4.3, Chloride 97 L, Carbon Dioxide 23.1, Anion Gap 14, BUN 16, Creatinine 0.96, Estim Creat Clear Calc 51.06, Est GFR (MDRD) Non-Af 60, BUN/Creatinine Ratio 17.1, Glucose 127 H, Calcium 9.5, Troponin T High Sens 108 H* 12/06/24 19:29: Troponin T Hi Sens 2 Hr 178 H* 12/06/24 20:27: Troponin T Hi Sens 2 Hr 184 H* 12/07/24 04:41: WBC 7.4, RBC 4.40, Hgb 12.9, Hct 39.0, MCV 88.6, MCH 29.3, MCHC 33.1, RDW Std Deviation 42.5, RDW Coeff of [place] 13.0, Plt Count 263, MPV 9.7, Immature Gran % (Auto) 0.400, Neut % (Auto) 77.5 H, Lymph % (Auto) 13.1 L, [place] % (Auto) 8.3, Eos % (Auto) 0.4, Baso % (Auto) 0.3, Absolute Neuts (auto) 5.7, Absolute Lymphs (auto) 0.97, Nucleated RBC % 0, PT 13.0, INR 1.0, Sodium 132 L, Potassium 4.2, Chloride 97 L, Carbon Dioxide 21.9, Anion Gap 13, BUN 19, Creatinine 0.93, Estim Creat Clear Calc 50.58, Est GFR (MDRD) Non-Af 62, BUN/Creatinine Ratio 20.6 H, Glucose 98, Calcium 9.3, Phosphorus 4.2, Magnesium 2.0, Total Bilirubin 0.68, Direct Bilirubin 0.29, AST 33 H, ALT 17, Alkaline Phosphatase 66, Total Protein 6.3, Albumin 3.9, Globulin 2.5, Albumin/Globulin Ratio 1.6, TSH 1.180 Micro: Troponins progressively elevated Rhythm Strip Rhythm Strip: Being read as paced. However the patient does not have a pacemaker. Rate: 72 Ectopy: None Imaging Radiology Impression Brain CT 12/06/24 16:41 IMPRESSION: No acute intracranial abnormality. Senescent changes. Reading Location: [facility] Cervical Spine CT 12/06/24 16:41 IMPRESSION: No evidence of acute cervical spine fracture. Demineralization does limit sensitivity One or more dose reduction techniques were used (e.g., Automated exposure control, adjustment of the mA and/or kV according to patient size, use of iterative reconstruction technique). Reading Location: [facility] Facial/Sinus 12/06/24 16:41 IMPRESSION: No evidence of acute facial fracture. Senescent changes. One or more dose reduction techniques were used (e.g., Automated exposure control, adjustment of the mA and/or kV according to patient size, use of iterative reconstruction technique). Reading Location: [facility] Chest X-Ray 12/06/24 17:10 IMPRESSION: No acute findings. Senescent changes. Mild cardiac enlargement. Reading Location: [facility] Knee X-Ray 12/06/24 17:10 IMPRESSION: Acute patellar fracture on background demineralization. Reading Location: [facility] Knee images independently reviewed. Minimally displaced transverse patella fracture. Assessment & Plan Assessment/Plan (1) Closed transverse fracture of left patella: PLAN: Natural history of the disease process and treatment options were discussed the patient. After thorough discussion with the patient on her baseline level of function and her medical history after discussing open reduction internal fixation versus nonoperative treatment I recommended nonoperative treatment. This is also in conjunction with the fact that her extensor mechanism is currently intact against gravity. Ultimately, patient is receiving a cardiology consultation while she is in house. I have described her the nonoperative plan at this time would be 50% weightbearing in the knee immobilizer. Therapy to mobilize the patient. Patient will likely need inpatient rehabilitation or fdc as she acclimates to weightbearing restrictions and the knee immobilizer. She will need to be in the knee immobilizer for a total of 6 weeks which point we will begin range of motion therapies and eventual strengthening. May begin early range of motion if appropriate. Medicine doctor was also at bedside was able to discuss her medical history and all parties agree on the treatment plan in place at this time. Patient understands nonoperative means can fail and surgical intervention may be indicated in the future. Also any surgical decisions will be based on patient's cardiac health and appropriateness of surgical intervention. Please call with any further questions or concerns. Would like to see the patient on a weekly basis as an outpatient when she is discharged. If she remains in a which many hospital facility can follow x-rays on a weekly basis plan on weekly 2 views of the knee AP and lateral and contact physician to review results. Knee must remain in extension and the knee immobilizer until follow-up. [facility] Office: (2) Elevated troponin: (3) Syncope: (4) NSVT (nonsustained ventricular tachycardia):
[2024-12-07 09:01] VITALS: BP 116/54; PULSE 62; RESP 17; TEMP 36.5; O2SAT 99
[2024-12-07] MEDS: Meloxicam 15 MG Tablet PO (09:17)
[2024-12-07] MEDS: Aspirin E.C. 81 MG Tablet PO (09:17)
[2024-12-07] MEDS: Sertraline 100 MG Tablet PO (09:17)
--- NOTE | 2024-12-07 13:10 | PCM.CONS.C ---
Assessment & Plan Assessment/Plan (1) Elevated troponin: PLAN: Troponin is mildly elevated. Patient had coronary angiography in 2020 that showed mild nonobstructive CAD. She had a recent stress test that was negative for ischemia. She has not been having any anginal symptoms. No further workup required for this at this time. (2) Syncope: QUALIFIERS: Syncope type: unspecified Qualified Code(s): R55 - Syncope and collapse PLAN: Appears to be vestibular/neurally mediated. Does not appear to be cardiac in origin. Recommend meclizine on a scheduled basis. Patient had responded well to this in the past. (3) Preoperative cardiovascular examination: PLAN: No further cardiac workup required prior to patellar surgery if surgery is felt to be indicated. Patient is at low risk of perioperative cardiovascular events from the surgery. HPI Consult Data Date of Consult: 12/07/24 HPI Narrative Reason for Consultation: Syncope HPI Narrative: JERO LAYNE, is a 79 F who presents after syncope and fall. Patient was apparently trying to get groceries from her front porch. She bent down to get them and passed out and hit the concrete floor. She has contusion of face, laceration of left and also fracture of left patella. Patient has been having this dizziness for a while. She has seen cardiology as an outpatient for this. She underwent stress testing recently and it was negative for ischemia. She had a 2D echo which showed preserved EF no significant valvular abnormalities. She had Holter monitoring which revealed a 4 beat run of nonsustained V. tach and short run of SVT. She also had a heart cath in 2019 which revealed 40% stenoses in 2 vessels. Her dizziness is precipitated by certain movements of her head. She was on meclizine at 1 point which helped her symptoms. She was advised to take it as needed at that point. Apparently someone also told her that she does not need it and she has not been taking it. She denies any chest pain, shortness of breath etc. Her troponin is mildly elevated. [facility] Medical History Vertigo PVCs (premature ventricular contractions) SOB (shortness of breath) Sleep apnea Vitamin D deficiency RLS (restless legs syndrome) Pulmonary hypertension Myalgia MVP (mitral valve prolapse) Dizziness CAD (coronary artery disease) Vitamin B12 deficiency Fatigue Osteoarthritis Depression Debility Paic[place] disease History of endometrial biopsy COVID-19 Chronic hyponatremia Anxiety and depression Hypothyroidism Allergic rhinitis Hyperlipidemia HTN (hypertension) Home Medications ?Medication ?Instructions ?Recorded ?Last Taken ?Type atorvastatin 20 mg tablet 20 mg PO DAILY hld 07/28/23 07/30/23 History sodium chloride 1,000 mg soluble 1,000 mg PO BID supplement #60 tabs 07/31/23 07/31/23 Rx tablet acetaminophen 500 mg tablet 1,000 mg (2 x 500 mg) PO Q6H PRN 08/08/23 Unknown Rx PRN Pain Score 1-10 #0 tabs meloxicam 15 mg tablet 15 mg PO DAILY #0 tabs 08/08/23 Unknown Rx aspirin 81 mg tablet,delayed 81 mg PO DAILY #90 tabs 09/04/23 12/06/24 Rx release (Adult Aspirin Regimen) calcium 600 mg-D3 800 unit-mag 40 1 tab PO BID 09/04/23 12/06/24 History aq-adyt-zcak-joseph-boron chew tablet (Caltrate 600-D Plus Minerals) cyanocobalamin (vitamin B-12) 1,000 mcg PO QMONTH 09/04/23 Unknown History 1,000 mcg capsule olmesartan 40 mg tablet 40 mg PO DAILY see #90 tabs 10/25/23 12/06/24 Rx ipratropium bromide 21 mcg (0.03 2 spray intranasal BID 03/11/24 Unknown History %) nasal spray levocetirizine 5 mg tablet 5 mg PO QDAY 03/11/24 Unknown History Held on 12/06/24. Instructions: pt stopped sertraline 100 mg tablet 100 mg PO QDAY 03/11/24 12/05/24 History levothyroxine 125 mcg tablet 112 mcg PO QDAY 06/10/24 Unknown History liothyronine 5 mcg tablet 5 mcg PO QDAY 12/04/24 12/06/24 History metoprolol tartrate 50 mg tablet 50 mg PO BID #180 tabs 12/04/24 Unknown Rx spironolactone 25 mg tablet 25 mg PO DAILY #90 tabs 12/04/24 Unknown Rx carvedilol 3.125 mg tablet 3.125 mg PO BID 12/06/24 12/06/24 History Allergy/AdvReac Type Severity Reaction Status Date / Time propoxyphene HCl (From Allergy Nausea Verified 12/06/24 16:36 Darvon) atorvastatin AdvReac Intermediate myalgia Verified 12/06/24 16:36 codeine AdvReac Intermediate Nausea Verified 12/06/24 16:36 simvastatin AdvReac Intermediate Myalgia Verified 12/06/24 16:36 Family History Mother CVA (cerebral vascular accident) Father [place] disease Son Kimberlee disease Brother Heart disease Hypertension Daughter Lupus Arthritis Sister Melanoma Surgical History Hx of cataract extraction (~2020) Hx of cardiac catheterization (~09/09/20) History of tonsillectomy (~1958) Hx of tubal ligation (~1982) H/O cone biopsy of cervix H/O dilation and curettage Hx of myringotomy S/P thyroid biopsy Social History household members: none Smoking Status: Never smoker alcohol intake: never substance use type: does not use caffeine: Yes Type: coffee Number of servings: 2 Physical Exam Const alert and oriented x3 HEENT normocephalic Eyes no scleral icterus Resp normal respiratory effort Cardio regular rate Extremity no pedal edema Risk Stratification Risk Stratification Applicable: No Charges/Coding Visit Charges Inpatient E&M: 64415 Init Hosp L2 Objective Data Vital Signs: Vital Signs Temp Pulse Resp BP Pulse Ox O2 Del Method 97.7 F L 62 17 116/54 L 99 Room Air 12/07/24 09:01 12/07/24 09:01 12/07/24 09:01 12/07/24 09:01 12/07/24 09:01 12/07/24 09:01 Oxygen Delivery Method Room Air Weight: 176 lb 2.389 oz Body Mass Index (BMI) 28.4 Intake & Output: Intake and Output for Last 24 Hours 12/05/24 12/06/24 12/07/24 23:59 23:59 23:59 Intake Total 400 / 400 Output Total 300 / 300 Balance 100 / 100 Lab / Micro Data 12/07/24 04:41 12/07/24 04:41 Labs: Laboratory Results - last 24 hr 12/06/24 16:35: WBC 11.6 H, RBC 4.62, Hgb 13.6, Hct 40.5, MCV 87.7, MCH 29.4, MCHC 33.6, RDW Std Deviation 41.1, RDW Coeff of [place]jo 12.9, Plt Count 279, MPV 9.2, Immature Gran % (Auto) 0.500, Neut % (Auto) 85.3 H, Lymph % (Auto) 8.6 L, [place] % (Auto) 4.0, Eos % (Auto) 1.3, Baso % (Auto) 0.3, Absolute Neuts (auto) 9.9 H, Absolute Lymphs (auto) 0.99, Nucleated RBC % 0, Sodium 134, Potassium 4.3, Chloride 97 L, Carbon Dioxide 23.1, Anion Gap 14, BUN 16, Creatinine 0.96, Estim Creat Clear Calc 51.06, Est GFR (MDRD) Non-Af 60, BUN/Creatinine Ratio 17.1, Glucose 127 H, Calcium 9.5, Troponin T High Sens 108 H* 12/06/24 19:29: Troponin T Hi Sens 2 Hr 178 H* 12/06/24 20:27: Troponin T Hi Sens 2 Hr 184 H* 12/07/24 04:41: WBC 7.4, RBC 4.40, Hgb 12.9, Hct 39.0, MCV 88.6, MCH 29.3, MCHC 33.1, RDW Std Deviation 42.5, RDW Coeff of [place] 13.0, Plt Count 263, MPV 9.7, Immature Gran % (Auto) 0.400, Neut % (Auto) 77.5 H, Lymph % (Auto) 13.1 L, [place] % (Auto) 8.3, Eos % (Auto) 0.4, Baso % (Auto) 0.3, Absolute Neuts (auto) 5.7, Absolute Lymphs (auto) 0.97, Nucleated RBC % 0, PT 13.0, INR 1.0, Sodium 132 L, Potassium 4.2, Chloride 97 L, Carbon Dioxide 21.9, Anion Gap 13, BUN 19, Creatinine 0.93, Estim Creat Clear Calc 50.58, Est GFR (MDRD) Non-Af 62, BUN/Creatinine Ratio 20.6 H, Glucose 98, Calcium 9.3, Phosphorus 4.2, Magnesium 2.0, Total Bilirubin 0.68, Direct Bilirubin 0.29, AST 33 H, ALT 17, Alkaline Phosphatase 66, Total Protein 6.3, Albumin 3.9, Globulin 2.5, Albumin/Globulin Ratio 1.6, TSH 1.180 Rhythm Strip Rhythm Strip: Being read as paced. However the patient does not have a pacemaker. Rate: 72 Ectopy: None Cardiology Labs/Tests 12/06/24 16:35: WBC 11.6 H, RBC 4.62, Hgb 13.6, Hct 40.5, MCV 87.7, MCH 29.4, MCHC 33.6, Plt Count 279, MPV 9.2, Immature Gran % (Auto) 0.500, Neut % (Auto) 85.3 H, Lymph % (Auto) 8.6 L, [place] % (Auto) 4.0, Eos % (Auto) 1.3, Baso % (Auto) 0.3, Absolute Neuts (auto) 9.9 H, Nucleated RBC % 0, Sodium 134, Potassium 4.3, Chloride 97 L, Carbon Dioxide 23.1, Anion Gap 14, BUN 16, Creatinine 0.96, Est GFR (MDRD) Non-Af 60, BUN/Creatinine Ratio 17.1, Glucose 127 H, Calcium 9.5 12/07/24 04:41: WBC 7.4, RBC 4.40, Hgb 12.9, Hct 39.0, MCV 88.6, MCH 29.3, MCHC 33.1, Plt Count 263, MPV 9.7, Immature Gran % (Auto) 0.400, Neut % (Auto) 77.5 H, Lymph % (Auto) 13.1 L, [place] % (Auto) 8.3, Eos % (Auto) 0.4, Baso % (Auto) 0.3, Absolute Neuts (auto) 5.7, Nucleated RBC % 0, PT 13.0, INR 1.0, Sodium 132 L, Potassium 4.2, Chloride 97 L, Carbon Dioxide 21.9, Anion Gap 13, BUN 19, Creatinine 0.93, Est GFR (MDRD) Non-Af 62, BUN/Creatinine Ratio 20.6 H, Glucose 98, Calcium 9.3, Phosphorus 4.2, Magnesium 2.0, Total Bilirubin 0.68, Direct Bilirubin 0.29 Rhythm: EKG: ECHO: Stress Test: Cardiac Cath: PCI: CT Surgery: Holter monitor: EPS: PPM: CXR: Chest CT Scan: Radiography Diagnostic Testing: Radiology Impression Brain CT 12/06/24 16:41 IMPRESSION: No acute intracranial abnormality. Senescent changes. Reading Location: [facility] Cervical Spine CT 12/06/24 16:41 IMPRESSION: No evidence of acute cervical spine fracture. Demineralization does limit sensitivity One or more dose reduction techniques were used (e.g., Automated exposure control, adjustment of the mA and/or kV according to patient size, use of iterative reconstruction technique). Reading Location: [facility] Facial/Sinus 12/06/24 16:41 IMPRESSION: No evidence of acute facial fracture. Senescent changes. One or more dose reduction techniques were used (e.g., Automated exposure control, adjustment of the mA and/or kV according to patient size, use of iterative reconstruction technique). Reading Location: [facility] Chest X-Ray 12/06/24 17:10 IMPRESSION: No acute findings. Senescent changes. Mild cardiac enlargement. Reading Location: [facility] Knee X-Ray 12/06/24 17:10 IMPRESSION: Acute patellar fracture on background demineralization. Reading Location: [facility]
[2024-12-07] MEDS: Meclizine HCl 25 MG Tablet PO ×2 (13:23→21:26)
[2024-12-07] MEDS: Enoxaparin 40 MG/0.4 ML Syringe SC (13:24)
--- NOTE | 2024-12-07 13:37 | PN_ITS ---
Subjective Subjective Patient seen and examined. Her knee pain was well-controlled as she just had some pain meds. She denied any palpitations or dizziness, shortness of breath or any other symptoms. Review of symptoms otherwise negative. Objective Data Objective Data Vital Signs: Vital Signs Temp Pulse Resp BP Pulse Ox O2 Del Method 97.7 F L 62 17 116/54 L 99 Room Air 12/07/24 09:01 12/07/24 09:01 12/07/24 09:01 12/07/24 09:01 12/07/24 09:01 12/07/24 09:01 Oxygen Delivery Method Room Air Weight: 176 lb 2.389 oz Body Mass Index (BMI) 28.4 Intake & Output: Intake and Output for Last 24 Hours 12/05/24 12/06/24 12/07/24 23:59 23:59 23:59 Intake Total 400 / 400 Output Total 300 / 300 Balance 100 / 100 Lab / Micro Data 12/07/24 04:41 12/07/24 04:41 Labs: Laboratory Results - last 24 hr 12/06/24 16:35: WBC 11.6 H, RBC 4.62, Hgb 13.6, Hct 40.5, MCV 87.7, MCH 29.4, MCHC 33.6, RDW Std Deviation 41.1, RDW Coeff of Alejo 12.9, Plt Count 279, MPV 9.2, Immature Gran % (Auto) 0.500, Neut % (Auto) 85.3 H, Lymph % (Auto) 8.6 L, [place] % (Auto) 4.0, Eos % (Auto) 1.3, Baso % (Auto) 0.3, Absolute Neuts (auto) 9.9 H, Absolute Lymphs (auto) 0.99, Nucleated RBC % 0, Sodium 134, Potassium 4.3, Chloride 97 L, Carbon Dioxide 23.1, Anion Gap 14, BUN 16, Creatinine 0.96, Estim Creat Clear Calc 51.06, Est GFR (MDRD) Non-Af 60, BUN/Creatinine Ratio 17.1, Glucose 127 H, Calcium 9.5, Troponin T High Sens 108 H* 12/06/24 19:29: Troponin T Hi Sens 2 Hr 178 H* 12/06/24 20:27: Troponin T Hi Sens 2 Hr 184 H* 12/07/24 04:41: WBC 7.4, RBC 4.40, Hgb 12.9, Hct 39.0, MCV 88.6, MCH 29.3, MCHC 33.1, RDW Std Deviation 42.5, RDW Coeff of Alejo 13.0, Plt Count 263, MPV 9.7, Immature Gran % (Auto) 0.400, Neut % (Auto) 77.5 H, Lymph % (Auto) 13.1 L, [place] % (Auto) 8.3, Eos % (Auto) 0.4, Baso % (Auto) 0.3, Absolute Neuts (auto) 5.7, Absolute Lymphs (auto) 0.97, Nucleated RBC % 0, PT 13.0, INR 1.0, Sodium 132 L, Potassium 4.2, Chloride 97 L, Carbon Dioxide 21.9, Anion Gap 13, BUN 19, Creatinine 0.93, Estim Creat Clear Calc 50.58, Est GFR (MDRD) Non-Af 62, B UN/Creatinine Ratio 20.6 H, Glucose 98, Calcium 9.3, Phosphorus 4.2, Magnesium 2.0, Total Bilirubin 0.68, Direct Bilirubin 0.29, AST 33 H, ALT 17, Alkaline Phosphatase 66, Total Protein 6.3, Albumin 3.9, Globulin 2.5, Albumin/Globulin Ratio 1.6, TSH 1.180 Radiography Diagnostic Testing: Radiology Impression Brain CT 12/06/24 16:41 IMPRESSION: No acute intracranial abnormality. Senescent changes. Reading Location: [facility] Cervical Spine CT 12/06/24 16:41 IMPRESSION: No evidence of acute cervical spine fracture. Demineralization does limit sensitivity One or more dose reduction techniques were used (e.g., Automated exposure control, adjustment of the mA and/or kV according to patient size, use of iterative reconstruction technique). Reading Location: [facility] Facial/Sinus 12/06/24 16:41 IMPRESSION: No evidence of acute facial fracture. Senescent changes. One or more dose reduction techniques were used (e.g., Automated exposure control, adjustment of the mA and/or kV according to patient size, use of iterative reconstruction technique). Reading Location: [facility] Chest X-Ray 12/06/24 17:10 IMPRESSION: No acute findings. Senescent changes. Mild cardiac enlargement. Reading Location: [facility] Knee X-Ray 12/06/24 17:10 IMPRESSION: Acute patellar fracture on background demineralization. Reading Location: [facility] Rhythm Strip Rhythm Strip: Being read as paced. However the patient does not have a pacemaker. Rate: 72 Ectopy: None Physical Exam Const alert, oriented x3 and no apparent distress General Appearance: cooperative HEENT normocephalic and oropharynx normal HEENT Narrative: dry oral mucosal membranes. Has a superficial ulceration over her lip. Eyes PERRL and EOMs intact bilaterally Neck no lymphadenopathy and supple Lymph Lymphatic: no lymphadenopathy noted and no lymphedema noted Resp Resp Narrative: mildly diminished breath sounds bibasally, no wheezes or crackles. Cardio regular rate, regular rhythm, S1 normal heart sound, S2 normal heart sound and no murmurs GI normal to inspection, nondistended, normoactive bowel sounds, soft to palpation, non-tender and non-distended Extremity normal capillary refill, no clubbing, cyanosis or edema and no calf tenderness Extremity Narrative: left knee in knee brace Skin General Skin Exam: no breakdown Neuro CN's II-XII intact bilaterally Neuro Narrative: pain with moving LLE due to fractured left patella. Psych Appearance: appropriate Assessment & Plan Assessment/Plan (1) Closed transverse fracture of left patella: (2) Elevated troponin: (3) Syncope: QUALIFIERS: Syncope type: unspecified Qualified Code(s): R55 - Syncope and collapse PLAN: Plan #Left patella fracture due to mechanical fall * orthopedic surgery on board * Orthopedic surgery recommends conservative management for now with partial weightbearing. * P.o. Tylenol, p.o. oxycodone and IV morphine as needed for pain * Cardiology reviewed patient and recommends no further cardiac workup as she is at low risk of perioperative cardiovascular events from surgery. #Syncope * patient has had recurrent syncope. * has had holter monitoring which showed nonsustained vtach * followed with [facility] on outpatient basis * cardiology consulted; recommendations as above. * She also had a stress test recently which was negative for any evidence of ischemia. #Nonsustained ventricular tachycardia * Thought to be the cause of the recurrent syncope. * has had holter monitoring done which showed evidence of nonsustained vtach. * cardiology consulted; per cardiology she had a coronary angiogram in 2019 which showed mild nonobstructive CAD. Recent stress test done was also negative for ischemia. * Cardiology recommends meclizine as they do not think syncope is cardiac in origin. * #CAD: On aspirin and carvedilol. #Hypothyroidism: On Synthroid and liothyronine #Hypertension: On carvedilol and losartan #Depression: On sertraline DVT prophylaxis: Lovenox Disposition: Will benefit from placement. CODE STATUS: DNR CCA no intubation. # # Hypertension: #DVT prophylaxis: Lovenox CODE STATUS: full code Charges/Coding Visit Charges Inpatient E&M: 70268 Subs Hosp L2
[2024-12-07 14:45] VITALS: BP 153/63; PULSE 61; RESP 18; TEMP 36.6; O2SAT 96
[2024-12-07] MEDS: Atorvastatin Calcium 20 MG Tablet PO (21:26)
[2024-12-07 22:00] VITALS: BP 126/61; PULSE 69; RESP 16; TEMP 36.6; O2SAT 98
[2024-12-08] MEDS: HYDROmorphone Inj 0.2 MG/ML SYRINGE IV ×3 (02:27→17:25)
[2024-12-08] MEDS: 0.9% Saline Lock 10 ML Syringe IV (02:28)
[2024-12-08 04:00] VITALS: BP 162/63; PULSE 62; RESP 16; TEMP 36.6; O2SAT 100
[2024-12-08] MEDS: Levothyroxine 112 MCG Tablet PO (05:54)
[2024-12-08] MEDS: Meclizine HCl 25 MG Tablet PO ×3 (05:54→21:17)
[2024-12-08] MEDS: Liothyronine 5 MCG Tablet PO (05:54)
[2024-12-08] MEDS: Acetaminophen 500 MG Tablet 1000 MG PO ×2 (05:54→18:23)
[2024-12-08 07:45] VITALS: O2SAT 96
[2024-12-08 08:39] LABS: Absolute Lymphocyte Count 0.99 X10^3/uL (0.83-4.51); Basophil# 0.02 X10^3/uL; Basophil% 0.2 % (0-1); Eosinophil# 0.12 X10^3/uL; Eosinophils% 1.4 % (0-5); Hematocrit 37.9 % (37-47); Hemoglobin 12.6 g/dL (12.0-15.0); Lymphocyte # 0.99 X10^3/ul (0.83-4.51); Lymphocyte % 11.2 % (19-41); Mean Corp Hgb Conc 33.2 g/dL (32-36); Mean Corpuscular Hgb 29.2 pg (27.0-32.0); Mean Corpuscular Volume 87.9 fL (81-99); Mean Platelet Vol. 9.3 fl (6.2-12.0); Monocyte# 0.63 X10^3/uL; Monocyte% 7.2 % (0-10); NRBC Flagged by Analyzer 0 % (0-5); Neutrophil # 7.02 X10^3/uL (2.7-7.7); Neutrophil % 79.7 % (47-70); Platelet Count 248 K/mm3 (150-450); RBC Distribution Width SD 42.1 fl (35.1-43.9); Red Blood Count 4.31 M/mm3 (4.2-5.4); White Blood Count 8.8 K/mm3 (4.4-11.0)
--- NOTE | 2024-12-08 09:53 | CASEMGMT ---
Therapy is recommending SNF for patient. SW met with patient. Introduced self and role at [facility]. Patient agrees she needs to go somewhere for rehab. Patient said her first choice would be [facility]. SW offered a list of local nursing homes, but patient declined. SW asked if TCU is unable to take her does she have a second choice. Patient said [facility] would be her next choice. SW will make a referral and update patient. Jazmín Christianson FRONT WORKERLina UGARTE
[2024-12-08 10:00] VITALS: BP 115/63; PULSE 94; RESP 15; TEMP 36.6; O2SAT 99
[2024-12-08] MEDS: Enoxaparin 40 MG/0.4 ML Syringe SC (10:08)
[2024-12-08] MEDS: Aspirin E.C. 81 MG Tablet PO (10:08)
[2024-12-08] MEDS: Losartan Potassium 100 MG Tablet PO (10:08)
[2024-12-08] MEDS: Sertraline 100 MG Tablet PO (10:09)
[2024-12-08] MEDS: Meloxicam 15 MG Tablet PO (10:09)
--- NOTE | 2024-12-08 11:49 | PN_ITS ---
Subjective Subjective Patient seen and examined. Pain in the left leg is well-controlled. She had no active complaints. Review of systems otherwise negative. Remained hemodynamically stable. She is awaiting placement. Objective Data Objective Data Vital Signs: Vital Signs Temp Pulse Resp BP Pulse Ox O2 Del Method O2 Flow Rate 97.9 F 62 16 162/63 H 96 Room Air 2 12/08/24 04:00 12/08/24 04:00 12/08/24 04:00 12/08/24 04:00 12/08/24 07:45 12/08/24 07:45 12/08/24 04:00 Oxygen Flow Rate (L/min) 2 Oxygen Delivery Method Room Air Weight: 176 lb 2.389 oz Body Mass Index (BMI) 28.4 Intake & Output: Intake and Output for Last 24 Hours 12/06/24 12/07/24 12/08/24 23:59 23:59 23:59 Intake Total 400 / 900 900 / 900 Output Total 300 / 400 200 / 200 Balance 100 / 500 700 / 700 Lab / Micro Data 12/08/24 08:25 12/07/24 04:41 Labs: Laboratory Results - last 24 hr 12/08/24 08:25: WBC 8.8, RBC 4.31, Hgb 12.6, Hct 37.9, MCV 87.9, MCH 29.2, MCHC 33.2, RDW Std Deviation 42.1, RDW Coeff of Alejo 13.0, Plt Count 248, MPV 9.3, Immature Gran % (Auto) 0.300, Neut % (Auto) 79.7 H, Lymph % (Auto) 11.2 L, [place] % (Auto) 7.2, Eos % (Auto) 1.4, Baso % (Auto) 0.2, Absolute Neuts (auto) 7.0, Absolute Lymphs (auto) 0.99, Nucleated RBC % 0 Rhythm Strip Rhythm Strip: Being read as paced. However the patient does not have a pacemaker. Rate: 72 Ectopy: None Physical Exam Const alert, oriented x3 and no apparent distress General Appearance: cooperative HEENT normocephalic and oropharynx normal HEENT Narrative: has superficial bruising on her upper lip due to the mechanical fall. Eyes PERRL and EOMs intact bilaterally Neck no lymphadenopathy and supple Lymph Lymphatic: no lymphadenopathy noted and no lymphedema noted Resp normal respiratory effort, normal air movement and no retractions Cardio regular rate, regular rhythm, S1 normal heart sound, S2 normal heart sound and no murmurs GI normal to inspection, nondistended, normoactive bowel sounds, soft to palpation, non-tender and non-distended Extremity normal capillary refill, no clubbing, cyanosis or edema and no calf tenderness Extremity Narrative: left knee in knee brace Skin General Skin Exam: no breakdown Neuro oriented x3 and CN's II-XII intact bilaterally Neuro Narrative: pain with moving LLE due to fractured left patella. Motor Exam: general weakness Psych Appearance: appropriate Assessment & Plan Assessment/Plan (1) Closed transverse fracture of left patella: (2) Elevated troponin: (3) Syncope: QUALIFIERS: Syncope type: unspecified Qualified Code(s): R55 - Syncope and collapse PLAN: Plan #Left patella fracture due to mechanical fall * orthopedic surgery on board * Orthopedic surgery recommends conservative management for now with partial weightbearing. * P.o. Tylenol, p.o. oxycodone and IV morphine as needed for pain * Cardiology reviewed patient and recommends no further cardiac workup as she is at low risk of perioperative cardiovascular events from surgery. #Syncope * patient has had recurrent syncope. * has had holter monitoring which showed nonsustained vtach * followed with [place] [facility] on outpatient basis * cardiology consulted; recommendations as above. * She also had a stress test recently which was negative for any evidence of ischemia. * fall precautions. PT./ OT on board #Elevated troponins: * Likely due to demand ischemia from her syncope. * Initial troponin was 108 and trended up to a peak of 184. * Cardiology reviewed patient and recommended no further workup as she had recently had a stress test which was negative. #Nonsustained ventricular tachycardia * Thought to be the cause of the recurrent syncope. * has had holter monitoring done which showed evidence of nonsustained vtach. * cardiology consulted; per cardiology she had a coronary angiogram in 2019 which showed mild nonobstructive CAD. Recent stress test done was also negative for ischemia. * Cardiology recommends meclizine as they do not think syncope is cardiac in origin. * patient currently on meclizine * #CAD: On aspirin and carvedilol. #Hypothyroidism: On Synthroid and liothyronine #Hypertension: On carvedilol and losartan #Depression: On sertraline DVT prophylaxis: Lovenox Disposition: currently awaiting placement. CODE STATUS: DNR CCA no intubation. Charges/Coding Visit Charges Inpatient E&M: 98753 Subs Hosp L2
[2024-12-08 13:24] LABS: Anion Gap 9 (5-15); BUN 26 mg/dL (4-19); BUN/Creat Ratio 30.4 RATIO (10-20); Carbon Dioxide 22.7 mmol/L (21.0-32.0); Chloride 94 mmol/L (98-108); Creatinine, Serum 0.84 mg/dL (0.70-1.20); EST Glomerular Filtration Rate 70 (>60); Glucose 134 mg/dL (70-99); Potassium 3.8 mmol/L (3.3-5.1); Sodium Level 125 mmol/L (133-145)
--- NOTE | 2024-12-08 13:26 | PN.CARD_ITS ---
Subjective Subjective Patient's dizziness is better after starting meclizine. She is able to move her head a little bit more without getting dizzy. Today she described that in the past her dizzy spells, when she moves her head certain ways, would include a sensation of the room spinning and associated nausea. She would then quickly sit down. She has had dizziness on moving her head too quickly while she has been in the hospital. Telemetry during this time did not reveal any significant arrhythmias Objective Data Vital Signs: Vital Signs Temp Pulse Resp BP Pulse Ox O2 Del Method O2 Flow Rate 97.9 F 62 16 162/63 H 96 Room Air 2 12/08/24 04:00 12/08/24 04:00 12/08/24 04:00 12/08/24 04:00 12/08/24 07:45 12/08/24 11:15 12/08/24 04:00 Oxygen Flow Rate (L/min) 2 Oxygen Delivery Method Room Air Weight: 176 lb 2.389 oz Body Mass Index (BMI) 28.4 Intake & Output: Intake and Output for Last 24 Hours 12/06/24 12/07/24 12/08/24 23:59 23:59 23:59 Intake Total 400 / 900 900 / 900 Output Total 300 / 400 200 / 200 Balance 100 / 500 700 / 700 Lab / Micro Data 12/08/24 08:25 12/08/24 08:25 Labs: Laboratory Results - last 24 hr 12/08/24 08:25: WBC 8.8, RBC 4.31, Hgb 12.6, Hct 37.9, MCV 87.9, MCH 29.2, MCHC 33.2, RDW Std Deviation 42.1, RDW Coeff of Alejo 13.0, Plt Count 248, MPV 9.3, Immature Gran % (Auto) 0.300, Neut % (Auto) 79.7 H, Lymph % (Auto) 11.2 L, [place] % (Auto) 7.2, Eos % (Auto) 1.4, Baso % (Auto) 0.2, Absolute Neuts (auto) 7.0, Absolute Lymphs (auto) 0.99, Nucleated RBC % 0, Sodium 125 L, Potassium 3.8, C hloride 94 L, Carbon Dioxide 22.7, Anion Gap 9, BUN 26 H, Creatinine 0.84, Estim Creat Clear Calc 56.00, Est GFR (MDRD) Non-Af 70, BUN/Creatinine Ratio 30.4 H, G lucose 134 H, Calcium 9.0 Rhythm Strip Rhythm Strip: Being read as paced. However the patient does not have a pacemaker. Rate: 72 Ectopy: None Cardiology Labs/Tests 12/08/24 08:25: WBC 8.8, RBC 4.31, Hgb 12.6, Hct 37.9, MCV 87.9, MCH 29.2, MCHC 33.2, Plt Count 248, MPV 9.3, Immature Gran % (Auto) 0.300, Neut % (Auto) 79.7 H , Lymph % (Auto) 11.2 L, [place] % (Auto) 7.2, Eos % (Auto) 1.4, Baso % (Auto) 0.2, Absolute Neuts (auto) 7.0, Nucleated RBC % 0, Sodium 125 L, Potassium 3.8, C hloride 94 L, Carbon Dioxide 22.7, Anion Gap 9, BUN 26 H, Creatinine 0.84, Est GFR (MDRD) Non-Af 70, BUN/Creatinine Ratio 30.4 H, Glucose 134 H, Calcium 9.0 Rhythm: EKG: ECHO: Stress Test: Cardiac Cath: PCI: CT Surgery: Holter monitor: EPS: PPM: CXR: Chest CT Scan: Physical Exam Const alert and oriented x3 HEENT normocephalic Eyes no scleral icterus Resp normal respiratory effort Cardio regular rate Extremity no pedal edema Assessment & Plan Assessment/Plan (1) Elevated troponin: PLAN: Troponin is mildly elevated. Patient had coronary angiography in 2019 that showed mild nonobstructive CAD. She had a recent stress test that was negative for ischemia. She has not been having any anginal symptoms. No further workup required for this at this time. (2) Syncope: QUALIFIERS: Syncope type: unspecified Qualified Code(s): R55 - Syncope and collapse PLAN: Appears to be vestibular/neurally mediated. Does not appear to be cardiac in origin. Recommend meclizine on a scheduled basis. Patient has noticed improved symptoms compared to yesterday. (3) Preoperative cardiovascular examination: PLAN: No further cardiac workup required prior to patellar surgery if surgery is felt to be indicated. Patient is at low risk of perioperative cardiovascular events from the surgery. PLAN: Plan We will sign off at this time. If we can be of any further assistance please let us know.
[2024-12-08] MEDS: Senna Tablet 1 TABLET PO (13:29)
--- NOTE | 2024-12-08 13:33 | CASEMGMT ---
Addendum entered by Jazmín Christianson 12/08/24 14:15: SW notified patient that [facility] can take her when she is ready. Patient thanked SUMMER for the update. Jazmín UGARTE Original Note: [facility] is able to take patient at discharge. SW will notify patient. Jazmín UGARTE
--- NOTE | 2024-12-08 14:57 | CHAPLAIN ---
Type of Pastoral Visit _x__ Initial Visit ___ Follow-up Visit ___ On-call Visit ___ General Patient Visit ___ Spiritual Assessment ___ Family Conference ___ Bereavement ___ Rapid Response ___ Code Blue ___ Other (describe below) Pastoral Care Referral From _x__ Patient ___ Family ___ Nurse ___ Physician ___ Bilingual Instructor ___ Waste And Batting Waste Chopper ___ Other (describe below) Sacrament/Intervention _x__ Active listening ___ Anointing ___ Latter Day ___ Bereavement ___ Communion ___ Soco exploration ___ _x__ Life review _x__ Prayer ___ Reconciliation ___ Sacrament of Sick _x__ Supportive presence ___ Wedding ___ Other (describe below) Pastoral Comments patient immediately recognizes this cytogenetics technologist from a previous meeting and is very talkative; granddaughter is with her; pt is alert and informative about her health; pt has good family and soco support; pt looking at what is next for her; prayer welcomed
[2024-12-08 16:00] VITALS: BP 137/76; PULSE 67; RESP 16; TEMP 36.6; O2SAT 99
[2024-12-08] MEDS: Atorvastatin Calcium 20 MG Tablet PO (21:17)
[2024-12-08 22:00] VITALS: BP 124/58; PULSE 62; RESP 16; TEMP 36.8; O2SAT 98
[2024-12-09] MEDS: Acetaminophen 500 MG Tablet 1000 MG PO ×2 (01:57→08:39)
[2024-12-09] MEDS: 0.9% Saline Lock 10 ML Syringe IV ×2 (01:58→23:26)
[2024-12-09] MEDS: HYDROmorphone Inj 0.2 MG/ML SYRINGE IV ×5 (01:58→23:26)
[2024-12-09 04:00] VITALS: BP 132/53; PULSE 60; RESP 16; TEMP 36.6; O2SAT 100
[2024-12-09] MEDS: Levothyroxine 112 MCG Tablet PO (05:54)
[2024-12-09] MEDS: Liothyronine 5 MCG Tablet PO (05:54)
[2024-12-09] MEDS: Meclizine HCl 25 MG Tablet PO ×3 (05:54→21:48)
[2024-12-09 08:20] VITALS: BP 149/70; PULSE 62; RESP 18; TEMP 36.3; O2SAT 98
[2024-12-09] MEDS: 0.9% Normal Saline (1000mL) 1,000 ML 100 ML IV ×2 (08:38→17:52)
[2024-12-09] MEDS: Meloxicam 15 MG Tablet PO (08:41)
[2024-12-09] MEDS: Enoxaparin 40 MG/0.4 ML Syringe SC (08:41)
[2024-12-09] MEDS: Sertraline 100 MG Tablet PO (08:41)
[2024-12-09] MEDS: Losartan Potassium 100 MG Tablet PO (08:41)
[2024-12-09] MEDS: Aspirin E.C. 81 MG Tablet PO (08:41)
[2024-12-09] MEDS: Senna Tablet 1 TABLET PO (08:43)
[2024-12-09 09:04] VITALS: O2SAT 94
--- NOTE | 2024-12-09 11:29 | CASEMGMT ---
Patient is ready for discharge to [facility]. Plan: d/c to [facility] under skilled level of care. Jazmín UGARTE
--- NOTE | 2024-12-09 13:15 | TREXTCAR_ITS ---
Diet Diet Order/Speech Therapy: 12/06/24 20:03 Diet: Regular - General Food consistency:: Regular Liquid Consistency:: Regular/Thin Routine Orders/Code Status Enema Type: Fleetz Enema Frequency: Daily PRN Suppository Type: Dulcolax 10mg Suppository Frequency: Daily PRN DC O2, CPAP, BIPAP needs Home O2 Discharge instructions: No Wound(s) right forehead: Wound Type: Abrasion lips: Wound Type: Abrasion left knee: Wound Type: Abrasion Therapies Weight Bearing: Weight bearing as tolerated Physical Therapy: Eval and Treat Occupational Therapy: Eval and Treat Problem/Diagnosis (1) Elevated troponin: Status: Acute Code(s): R79.89 - Other specified abnormal findings of blood chemistry (2) Syncope: Status: Acute Code(s): R55 - Syncope and collapse (3) Preoperative cardiovascular examination: Status: Acute Code(s): Z01.810 - Encounter for preprocedural cardiovascular examination Plan #Left patella fracture due to mechanical fall * orthopedic surgery on board * Orthopedic surgery recommends conservative management for now with partial weightbearing. * P.o. Tylenol, p.o. oxycodone and IV morphine as needed for pain * Cardiology reviewed patient and recommends no further cardiac workup as she is at low risk of perioperative cardiovascular events from surgery. #Syncope * patient has had recurrent syncope. * has had holter monitoring which showed nonsustained vtach * followed with [place] [facility] on outpatient basis * cardiology consulted; recommendations as above. * She also had a stress test recently which was negative for any evidence of ischemia. * fall precautions. PT./ OT on board #Elevated troponins: * Likely due to demand ischemia from her syncope. * Initial troponin was 108 and trended up to a peak of 184. * Cardiology reviewed patient and recommended no further workup as she had recently had a stress test which was negative. #Nonsustained ventricular tachycardia * Thought to be the cause of the recurrent syncope. * has had holter monitoring done which showed evidence of nonsustained vtach. * cardiology consulted; per cardiology she had a coronary angiogram in 2019 which showed mild nonobstructive CAD. Recent stress test done was also negative for ischemia. * Cardiology recommends meclizine as they do not think syncope is cardiac in origin. * patient currently on meclizine * #CAD: On aspirin and carvedilol. #Hypothyroidism: On Synthroid and liothyronine #Hypertension: On carvedilol and losartan #Depression: On sertraline DVT prophylaxis: Lovenox Disposition: currently awaiting placement. CODE STATUS: DNR CCA no intubation. Allergies/Procedures Done in Hospital Allergies propoxyphene HCl (From Darvon) Allergy (Verified 12/06/24 16:36) Nausea atorvastatin Adverse Reaction (Intermediate, Verified 12/06/24 16:36) myalgia codeine Adverse Reaction (Intermediate, Verified 12/06/24 16:36) Nausea simvastatin Adverse Reaction (Intermediate, Verified 12/06/24 16:36) Myalgia Procedures: None Type of Care/Length of Stay Estimated LOS: Convalescent Care Less Than 30 days Type of Care Needed: Skilled Rehab Potential: Fair Prognosis: Fair Additional Orders/Day of Discharge Day of Discharge: 12/09/24 Dietary and Speech Recommendations Dietitian Recommendations/Changes: Continue regular diet. Will monitor weight trends. Discharge Plan Admission Admit Date/Time: 12/06/24 18:45 Primary Reason for Your Visit: left patella fracture, mechanical fall Attending Provider: Montse Cabrera Primary Care Provider: Maria Del Carmen Darby Consulting Providers: -Attn: Danielle Coker,B[facility]; Sandro Jackman; Michelle Dang Instructions Patient Instructions: ED Patella Fracture Discharge Orders/Prescriptions Prescriptions: New meclizine 25 mg Tablet 25 mg PO TID Qty: 90 2RF Eliquis 2.5 mg tablet 2.5 mg PO BID 28 Days Qty: 56 0RF acetaminophen [Tylenol] 325 mg tablet 650 mg PO Q6H PRN (Reason: pain) Qty: 30 1RF Continued Caltrate 600-D Plus Minerals 600 mg calcium- 800 unit-40 mg tablet,chewable 1 tab PO BID cyanocobalamin (vitamin B-12) 1,000 mcg capsule 1,000 mcg PO QMONTH Rx Instructions: pt takes once a month at primary office aspirin [Adult Aspirin Regimen] 81 mg tablet,delayed release (DR/EC) 81 mg PO DAILY Qty: 90 3RF levocetirizine 5 mg tablet 5 mg PO QDAY sertraline 100 mg tablet 100 mg PO QDAY ipratropium bromide 21 mcg (0.03 %) spray,non-aerosol 2 spray intranasal BID Patient Comments: [NO ORIGINAL SIG] levothyroxine 125 mcg tablet 112 mcg PO QDAY liothyronine 5 mcg tablet 5 mcg PO QDAY metoprolol tartrate 50 mg tablet 50 mg PO BID Qty: 180 3RF spironolactone 25 mg tablet 25 mg PO DAILY Qty: 90 3RF acetaminophen 500 mg Tablet 1,000 mg PO Q6H PRN PRN (Reason: Pain Score 1-10) Qty: 0 0RF atorvastatin 20 mg tablet 20 mg PO DAILY Patient Comments: take 1 tablet by mouth once daily sodium chloride 1,000 mg tablet,soluble 1,000 mg PO BID Qty: 60 0RF Patient Comments: take 1 tablet by mouth daily EXCEPT TAKE 2 TABS ON SUNDAY, WEDNESDAYS AND FRIDAYS carvedilol 3.125 mg tablet 3.125 mg PO BID olmesartan 40 mg tablet 40 mg PO DAILY Qty: 90 3RF Discontinued meloxicam 15 mg Tablet 15 mg PO DAILY Qty: 0 0RF Referrals / Follow Up: Maria Del Carmen Darby DO [Primary Care Provider] - Within 1 Week Luis Dozier MD [Med Staff - Active Staff] - Within 1 Week Disposition Disposition (needs filled in before D/C Order can be placed): [facility] Charges/Coding Visit Charges Inpatient E&M: 35054 Disch Hosp >30min (2) Syncope Qualifiers: Syncope type: unspecified Qualified Code(s): R55 - Syncope and collapse
--- NOTE | 2024-12-09 13:17 | DS.PCM_ITS ---
Providers Date of Admission: 12/06/24 Date of Discharge: 12/09/24 Primary Care Physician: Dr. Maria Del Carmen Darby, Consultations 12/06/24 20:03 Consult: Orthopedics Routine Consulting Provider: -Attn: [facility] Reason for Consult: Patellar Fracture EMERGENT Consult: Yes MD Notified: Yes Date Notified: 12/06/24 Time Notified: 18:50 Method of Notification: ED Physician Initiated 12/06/24 22:09 Consult: Cardiology Routine Consulting Provider: Michelle Dang Reason for Consult: elevated troponins EMERGENT Consult: No MD Notified: Yes Date Notified: 12/07/24 Time Notified: 07:29 Method of Notification: Text Reason For Visit: SYNCOPE Diagnosis Discharge Diagnosis (1) Elevated troponin: Status: Acute Code(s): R79.89 - Other specified abnormal findings of blood chemistry (2) Syncope: Status: Acute Code(s): R55 - Syncope and collapse Qualifiers: Syncope type: unspecified Qualified Code(s): R55 - Syncope and collapse (3) Preoperative cardiovascular examination: Status: Acute Code(s): Z01.810 - Encounter for preprocedural cardiovascular examination Plan #Left patella fracture due to mechanical fall * orthopedic surgery on board * Orthopedic surgery recommends conservative management for now with partial weightbearing. * P.o. Tylenol, p.o. oxycodone and IV morphine as needed for pain * Cardiology reviewed patient and recommends no further cardiac workup as she is at low risk of perioperative cardiovascular events from surgery. #Syncope * patient has had recurrent syncope. * has had holter monitoring which showed nonsustained vtach * followed with [facility] on outpatient basis * cardiology consulted; recommendations as above. * She also had a stress test recently which was negative for any evidence of ischemia. * fall precautions. PT./ OT on board #Elevated troponins: * Likely due to demand ischemia from her syncope. * Initial troponin was 108 and trended up to a peak of 184. * Cardiology reviewed patient and recommended no further workup as she had recently had a stress test which was negative. #Nonsustained ventricular tachycardia * Thought to be the cause of the recurrent syncope. * has had holter monitoring done which showed evidence of nonsustained vtach. * cardiology consulted; per cardiology she had a coronary angiogram in 2019 which showed mild nonobstructive CAD. Recent stress test done was also negative for ischemia. * Cardiology recommends meclizine as they do not think syncope is cardiac in origin. * patient currently on meclizine * #CAD: On aspirin and carvedilol. #Hypothyroidism: On Synthroid and liothyronine #Hypertension: On carvedilol and losartan #Depression: On sertraline DVT prophylaxis: Lovenox Disposition: currently awaiting placement. CODE STATUS: DNR CCA no intubation. Medications at Discharge Home Medications atorvastatin 20 mg tablet 20 mg PO DAILY hld 07/28/23 sodium chloride 1,000 mg soluble tablet 1,000 mg PO BID supplement #60 tabs 07/31/23 acetaminophen 500 mg tablet 1,000 mg (2 x 500 mg) PO Q6H PRN PRN Pain Score 1-10 #0 tabs 08/08/23 aspirin 81 mg tablet,delayed release (Adult Aspirin Regimen) 81 mg PO DAILY #90 tabs 09/04/23 Held on 12/09/24. Instructions: Resume on 12/23/24. hold as she is being put on PO aspirin 81mg bid x 2 weeks for DVT prophylaxis. To resume aspirin 81mg daily when she completes the course of PO aspirin 81mg bid x 2 weeks. calcium 600 mg-D3 800 unit-mag 40 ru-[id number]-sxhl-joseph-boron chew tablet (Caltrate 600-D Plus Minerals) 1 tab PO BID 09/04/23 cyanocobalamin (vitamin B-12) 1,000 mcg capsule 1,000 mcg PO QMONTH 09/04/23 olmesartan 40 mg tablet 40 mg PO DAILY see #90 tabs 10/25/23 ipratropium bromide 21 mcg (0.03 %) nasal spray 2 spray intranasal BID 03/11/24 levocetirizine 5 mg tablet 5 mg PO QDAY 03/11/24 sertraline 100 mg tablet 100 mg PO QDAY 03/11/24 levothyroxine 125 mcg tablet 112 mcg PO QDAY 06/10/24 liothyronine 5 mcg tablet 5 mcg PO QDAY 12/04/24 metoprolol tartrate 50 mg tablet 50 mg PO BID #180 tabs 12/04/24 spironolactone 25 mg tablet 25 mg PO DAILY #90 tabs 12/04/24 carvedilol 3.125 mg tablet 3.125 mg PO BID 12/06/24 acetaminophen 325 mg tablet (Tylenol) 650 mg (2 x 325 mg) PO Q6H PRN pain #30 tabs 12/09/24 aspirin 81 mg tablet,delayed release 81 mg PO BID 14 days #28 tabs 12/09/24 meclizine 25 mg tablet 25 mg PO TID #90 tabs 12/09/24 Hospital Course Operations None Procedures None Summary of Care Provided Minutes Spent on Discharge: 47 Hospital Course: Patient is an 79 y/o F with a PMh as outlined who was admitted via the ED on 12/09/2024 with a complaint of mechanical fall whilst picking up groceries. She had a blackout and when she woke up she had blood all over her face. Patient had apparently had recurrent episodes of syncope and lightheadedness and not being worked up by cardiology. She had undergone extensive evaluation with Holter monitoring which showed some evidence of nonsustained VT, pharmacological stress test which showed no evidence of ischemia. She was also scheduled to follow-up with neurology on outpatient basis. On admission vitals were essentially stable. Initial troponin was mildly elevated at 108. X-ray showed acute fracture of the patella body with joint effusion. Cardiology was consulted for pre op cardiac risk stratification. Cardiology evaluated patient and recommended that she did not need any further workup prior to surgery. Orthopedic surgery was consulted and recommended no surgical intervention for now. Patient was to be partial weightbearing on the left lower extremity. She did work with physical therapy and was deemed as needing skilled evaluation. She was [facility] to [facility] on 12/09/2024. She is follow-up with her primary care doctor within 1 to 2 weeks. She is also to follow up with orthopedic surgery within 1-2 weeks for evaluation. Due to her history of frequent falls and syncope, and therefore increased risk of bleed, patient was not discharged on any anticoagulant for DVT prophylaxis. She was discharged on p.o. aspirin 81 mg twice daily for 2 weeks. She is follow-up with her primary care doctor and orthopedic surgery as stated. Patient seen and examined prior to discharge. She had no complaints and felt well. Review of systems otherwise negative. Labs and vitals reviewed. Medication reviewed and reconciled. Physical Exam Const alert, oriented x3 and no apparent distress General Appearance: cooperative HEENT normocephalic and oropharynx normal Eyes PERRL and EOMs intact bilaterally Neck no lymphadenopathy and supple Lymph Lymphatic: no lymphadenopathy noted and no lymphedema noted Resp normal respiratory effort, normal air movement and no retractions Cardio regular rate, regular rhythm, S1 normal heart sound, S2 normal heart sound and no murmurs Cardio Narrative: Tachycardia present GI normal to inspection, nondistended, normoactive bowel sounds, soft to palpation, non-tender and non-distended Extremity normal capillary refill, no clubbing, cyanosis or edema and no calf tenderness Extremity Narrative: left knee in knee brace Skin General Skin Exam: no breakdown Neuro oriented x3 and CN's II-XII intact bilaterally Neuro Narrative: pain with moving LLE due to fractured left patella. Sensorium / Orientation: alert Motor Exam: general weakness Psych Appearance: appropriate Weight / BMI Weight Weight: 176 lb 2.389 oz Body Mass Index (BMI) 28.4 ABG / Lab / Microbiology Data 12/08/24 08:25 12/08/24 08:25 Laboratory: Laboratory Results - last 24 hr 12/08/24 08:25: Sodium 125 L, Potassium 3.8, Chloride 94 L, Carbon Dioxide 22.7, Anion Gap 9, BUN 26 H, Creatinine 0.84, Estim Creat Clear Calc 56.00, Est GFR (MDRD) Non-Af 70, BUN/Creatinine Ratio 30.4 H, Glucose 134 H, Calcium 9.0 D/C Instructions Discharge Diet: Low fat / Low cholesterol Discharge Activity: Use Walker (partial weight bearing) and - Weight Bearing Status: Partial weight bearing Call your doctor if you observe: Fever of 101 or Higher, Shortness of breath, Dizziness, Chest pain and Uncontrolled pain DC O2, CPAP, BIPAP Needs Home O2 Discharge instructions: No DC home with Oxygen: No Meaningful Use Info Meaningful Use Meaningful Use Diagnoses (Choose all that apply): None applicable Ischemic Stroke Statin Dosing Therapy Reference: STATIN DOSE THERAPY REFERENCE: * Patients > 75 years receive moderate or high dose statin therapy. * Patients 75 years or YOUNGER should receive HIGH intensity statin dose unless contraindicated. You will be required to document reason for non-treatment if statin daily dose does not meet guidelines. HIGH DOSE STATIN THERAPY DAILY Atorvastatin > than or = to 40 mg Rosuvastatin > than or = to 20 mg Amlodipine + Atorvastatin > than or = to 2.5/40 mg Ezetimibe + Simvastatin 10/80 mg Simvastatin 80mg Discharge Plan Admission Admit Date/Time: 12/06/24 18:45 Primary Reason for Your Visit: left patella fracture, mechanical fall Attending Provider: Montse Cabrera Primary Care Provider: Maria Del Carmen Darby Consulting Providers: -Attn: Danielle Coker,[facility]; Sandro Jackman; Michelle Dang Instructions Patient Instructions: ED Patella Fracture Discharge Orders/Prescriptions Prescriptions: New meclizine 25 mg Tablet 25 mg PO TID Qty: 90 2RF acetaminophen [Tylenol] 325 mg tablet 650 mg PO Q6H PRN (Reason: pain) Qty: 30 1RF aspirin 81 mg tablet,delayed release (DR/EC) 81 mg PO BID 14 Days Qty: 28 0RF Continued Caltrate 600-D Plus Minerals 600 mg calcium- 800 unit-40 mg tablet,chewable 1 tab PO BID cyanocobalamin (vitamin B-12) 1,000 mcg capsule 1,000 mcg PO QMONTH Rx Instructions: pt takes once a month at primary office levocetirizine 5 mg tablet 5 mg PO QDAY sertraline 100 mg tablet 100 mg PO QDAY ipratropium bromide 21 mcg (0.03 %) spray,non-aerosol 2 spray intranasal BID Patient Comments: [NO ORIGINAL SIG] levothyroxine 125 mcg tablet 112 mcg PO QDAY liothyronine 5 mcg tablet 5 mcg PO QDAY metoprolol tartrate 50 mg tablet 50 mg PO BID Qty: 180 3RF spironolactone 25 mg tablet 25 mg PO DAILY Qty: 90 3RF acetaminophen 500 mg Tablet 1,000 mg PO Q6H PRN PRN (Reason: Pain Score 1-10) Qty: 0 0RF atorvastatin 20 mg tablet 20 mg PO DAILY Patient Comments: take 1 tablet by mouth once daily sodium chloride 1,000 mg tablet,soluble 1,000 mg PO BID Qty: 60 0RF Patient Comments: take 1 tablet by mouth daily EXCEPT TAKE 2 TABS ON SUNDAY, WEDNESDAYS AND FRIDAYS carvedilol 3.125 mg tablet 3.125 mg PO BID olmesartan 40 mg tablet 40 mg PO DAILY Qty: 90 3RF Held aspirin [Adult Aspirin Regimen] 81 mg tablet,delayed release (DR/EC) 81 mg PO DAILY Qty: 90 3RF Hold Instructions: Resume on 12/23/24. hold as she is being put on PO aspirin 81mg bid x 2 weeks for DVT prophylaxis. To resume aspirin 81mg daily when she completes the course of PO aspirin 81mg bid x 2 weeks. Discontinued meloxicam 15 mg Tablet 15 mg PO DAILY Qty: 0 0RF Referrals / Follow Up: Maria Del Carmen Darby DO [Primary Care Provider] - Within 1 Week Luis Dozier MD [Med Staff - Active Staff] - Within 1 Week Disposition Disposition (needs filled in before D/C Order can be placed): [facility] Facility Charges/Coding Visit Charges Inpatient E&M: 30914 Disch Hosp >30min
[2024-12-09] MEDS: Ondansetron 4 MG/2 ML Vial IV (13:38)
--- NOTE | 2024-12-09 13:43 | CASEMGMT ---
Patient is ready for discharge to [facility]. SUMMER met with patient and let her know this information. Patient asked that SUMMER call her son Dwain. SUMMER called Dwain and let him know patient will be headed to [facility] today. Dwain thanked SUMMER for the update. Plan: d/c to [facility] under skilled level of care. Jazmín UGARTE
[2024-12-09 15:00] VITALS: BP 147/59; PULSE 69; RESP 18; TEMP 36.6; O2SAT 95
[2024-12-09 16:06] LABS: Anion Gap 8 (5-15); BUN 22 mg/dL (4-19); Calcium,Total 8.8 mg/dL (7.6-11.0); Chloride 89 mmol/L (98-108); Creatinine, Serum 0.75 mg/dL (0.70-1.20); EST Glomerular Filtration Rate 80 (>60); Glucose 105 mg/dL (70-99); Potassium 4.4 mmol/L (3.3-5.1); Sodium Level 118 mmol/L (133-145)
--- NOTE | 2024-12-09 16:18 | PHA.DC.MR.R ---
Pharmacy CT Med Reconciliation Pharmacy Service has performed discharge medication reconciliation for this patient. The patient's discharge medication list was reviewed for discrepancies and discrepancies were resolved. Medications at Discharge Home Medications atorvastatin 20 mg tablet 20 mg PO DAILY hld 07/28/23 sodium chloride 1,000 mg soluble tablet 1,000 mg PO BID supplement #60 tabs 07/31/23 acetaminophen 500 mg tablet 1,000 mg (2 x 500 mg) PO Q6H PRN PRN Pain Score 1-10 #0 tabs 08/08/23 aspirin 81 mg tablet,delayed release (Adult Aspirin Regimen) 81 mg PO DAILY #90 tabs 09/04/23 Held on 12/09/24. Instructions: Resume on 12/23/24. hold as she is being put on PO aspirin 81mg bid x 2 weeks for DVT prophylaxis. To resume aspirin 81mg daily when she completes the course of PO aspirin 81mg bid x 2 weeks. calcium 600 mg-D3 800 unit-mag 40 rh-twxf-zcen-joseph-boron chew tablet (Caltrate 600-D Plus Minerals) 1 tab PO BID 09/04/23 cyanocobalamin (vitamin B-12) 1,000 mcg capsule 1,000 mcg PO QMONTH 09/04/23 olmesartan 40 mg tablet 40 mg PO DAILY see #90 tabs 10/25/23 ipratropium bromide 21 mcg (0.03 %) nasal spray 2 spray intranasal BID 03/11/24 levocetirizine 5 mg tablet 5 mg PO QDAY 03/11/24 sertraline 100 mg tablet 100 mg PO QDAY 03/11/24 levothyroxine 125 mcg tablet 112 mcg PO QDAY 06/10/24 liothyronine 5 mcg tablet 5 mcg PO QDAY 12/04/24 metoprolol tartrate 50 mg tablet 50 mg PO BID #180 tabs 12/04/24 spironolactone 25 mg tablet 25 mg PO DAILY #90 tabs 12/04/24 carvedilol 3.125 mg tablet 3.125 mg PO BID 12/06/24 acetaminophen 325 mg tablet (Tylenol) 650 mg (2 x 325 mg) PO Q6H PRN pain #30 tabs 12/09/24 aspirin 81 mg tablet,delayed release 81 mg PO BID 14 days #28 tabs 12/09/24 meclizine 25 mg tablet 25 mg PO TID #90 tabs 12/09/24
[2024-12-09] MEDS: Acetaminophen 325 MG Tablet 650 MG PO (18:05)
--- NOTE | 2024-12-09 18:54 | PN_ITS ---
Subjective Subjective Patient seen and examined. She had no active complaints. Plan was to discharge today, but BMP came back with sodium of 118. Discharge therefore canceled. Review of systems is otherwise negative. Objective Data Objective Data Vital Signs: Vital Signs Temp Pulse Resp BP Pulse Ox O2 Del Method O2 Flow Rate 97.8 F 69 18 147/59 H 95 Room Air 2 12/09/24 15:00 12/09/24 15:00 12/09/24 15:00 12/09/24 15:00 12/09/24 15:00 12/09/24 15:00 12/09/24 04:00 Oxygen Flow Rate (L/min) 2 Oxygen Delivery Method Room Air Weight: 176 lb 2.389 oz Body Mass Index (BMI) 28.4 Intake & Output: Intake and Output for Last 24 Hours 12/07/24 12/08/24 12/09/24 23:59 23:59 23:59 Intake Total 400 / 900 1500 / 1900 2323.33 / 2323.33 Output Total 300 / 400 600 / 850 350 / 350 Balance 100 / 500 900 / 1050 1973.33 / 1973.33 Lab / Micro Data 12/08/24 08:25 12/09/24 15:05 Labs: Laboratory Results - last 24 hr 12/09/24 15:05: Sodium 118 L*, Potassium 4.4, Chloride 89 L, Carbon Dioxide 21.0, Anion Gap 8, BUN 22 H, Creatinine 0.75, Estim Creat Clear Calc 58.80, Est GFR (MDRD) Non-Af 80, BUN/Creatinine Ratio 30.0 H, Glucose 105 H, Calcium 8.8 Rhythm Strip Rhythm Strip: Being read as paced. However the patient does not have a pacemaker. Rate: 72 Ectopy: None Physical Exam Const alert, oriented x3 and no apparent distress Constitutional Narrative: pain is well controlled. General Appearance: cooperative HEENT normocephalic and oropharynx normal Eyes PERRL and EOMs intact bilaterally Neck no lymphadenopathy and supple Lymph Lymphatic: no lymphadenopathy noted and no lymphedema noted Resp Resp Narrative: mildly diminished breath sounds bibasally, no wheezes or crackles. Cardio regular rate, regular rhythm, S1 normal heart sound, S2 normal heart sound and no murmurs GI normal to inspection, nondistended, normoactive bowel sounds, soft to palpation, non-tender and non-distended Extremity normal capillary refill, no clubbing, cyanosis or edema and no calf tenderness Extremity Narrative: left knee in knee brace Skin General Skin Exam: no breakdown Neuro oriented x3 and CN's II-XII intact bilaterally Neuro Narrative: pain with moving LLE due to fractured left patella. Sensorium / Orientation: alert Motor Exam: general weakness Psych Appearance: appropriate Assessment & Plan Assessment/Plan (1) Elevated troponin: (2) Syncope: QUALIFIERS: Syncope type: unspecified Qualified Code(s): R55 - Syncope and collapse (3) Preoperative cardiovascular examination: PLAN: Plan #Left patella fracture due to mechanical fall * orthopedic surgery on board * Orthopedic surgery recommends conservative management for now with partial weightbearing. * P.o. Tylenol, p.o. oxycodone and IV morphine as needed for pain * Cardiology reviewed patient and recommends no further cardiac workup as she is at low risk of perioperative cardiovascular events from surgery. #Syncope * patient has had recurrent syncope. * has had holter monitoring which showed nonsustained vtach * followed with [facility] on outpatient basis * cardiology consulted; recommendations as above. * She also had a stress test recently which was negative for any evidence of ischemia. * fall precautions. PT./ OT on board #Elevated troponins: * Likely due to demand ischemia from her syncope. * Initial troponin was 108 and trended up to a peak of 184. * Cardiology reviewed patient and recommended no further workup as she had recently had a stress test which was negative. #Nonsustained ventricular tachycardia * Thought to be the cause of the recurrent syncope. * has had holter monitoring done which showed evidence of nonsustained vtach. * cardiology consulted; per cardiology she had a coronary angiogram in 2019 which showed mild nonobstructive CAD. Recent stress test done was also negative for ischemia. * Cardiology recommends meclizine as they do not think syncope is cardiac in origin. * patient currently on meclizine * #Hyponatremia * sodium was 125 yesterday andis now down to 118. * Being hydrated with IVF NS @ 125cc/hr. Will check urine sodium, serum osmolarity and urine osmolarity * nephrology also consulted * #CAD: On aspirin and carvedilol. #Hypothyroidism: On Synthroid and liothyronine #Hypertension: On carvedilol and losartan #Depression: On sertraline DVT prophylaxis: Lovenox Disposition: currently awaiting placement. For DC to TCU once hyponatremia resolves and patient is medically stable. CODE STATUS: DNR CCA no intubation. Charges/Coding Visit Charges Inpatient E&M: 63661 Subs Hosp L2
[2024-12-09 20:29] LABS: Osmolality, Serum 257 mOsm/KG (280-301)
[2024-12-09 21:45] VITALS: BP 130/68; PULSE 62; RESP 16; TEMP 36.7; O2SAT 98
[2024-12-09] MEDS: Atorvastatin Calcium 20 MG Tablet PO (21:48)
[2024-12-09 23:18] LABS: Urine Sodium 22 mmol/L (Not Establ.)
[2024-12-09 23:21] LABS: Sodium Level 118 mmol/L (133-145)
[2024-12-09 23:33] LABS: Osmolality, Urine 661 mOsm/KG
[2024-12-10] VITALS (7 sets, daily range): BP systolic 133–166; BP diastolic 63–73; PULSE 63–70; RESP 14–16; TEMP 36.3–36.6; O2SAT 95–100
--- NOTE | 2024-12-10 00:41 | PCM.HOSP.N ---
Hospitalist Note Called with repeat labs with sodium unchanged at 118. Patient has previously had hyponatremia with evaluation for nephrology in the past. In the past she had also been on a diuretic which had since been discontinued. Sodium urine random 22, urine osmolality 661, serum osmolality 257. Patient is currently being judiciously hydrated as some concern for hypovolemia as etiology. Nephrology is already been consulted and evaluation is pending. Given unchanged labs and these current workup labs will initiate 1000 mg p.o. twice daily salt tablets but will defer of course to nephrology for change. Continue BMP trending
[2024-12-10] MEDS: 0.9% Normal Saline (1000mL) 1,000 ML 100 ML IV (02:28)
[2024-12-10] MEDS: Acetaminophen 500 MG Tablet 1000 MG PO ×2 (02:28→10:18)
[2024-12-10] MEDS: Sodium Chloride 1 GM Tablet PO ×2 (02:28→09:28)
[2024-12-10] MEDS: HYDROmorphone Inj 0.2 MG/ML SYRINGE IV ×2 (03:21→07:33)
[2024-12-10] MEDS: 0.9% Saline Lock 10 ML Syringe IV (03:21)
[2024-12-10 05:44] LABS: Absolute Lymphocyte Count 0.92 X10^3/uL (0.83-4.51); Absolute Neutrophil Count 5.5 X10^3/uL (2.0-7.7); Basophil# 0.02 X10^3/uL; Basophil% 0.3 % (0-1); Eosinophil# 0.18 X10^3/uL; Eosinophils% 2.5 % (0-5); Hemoglobin 11.7 g/dL (12.0-15.0); Lymphocyte # 0.92 X10^3/ul (0.83-4.51); Lymphocyte % 12.7 % (19-41); Mean Corp Hgb Conc 34.4 g/dL (32-36); Mean Corpuscular Hgb 29.1 pg (27.0-32.0); Mean Corpuscular Volume 84.6 fL (81-99); Mean Platelet Vol. 9.5 fl (6.2-12.0); Monocyte# 0.59 X10^3/uL; Monocyte% 8.1 % (0-10); NRBC Flagged by Analyzer 0 % (0-5); Neutrophil # 5.51 X10^3/uL (2.7-7.7); Platelet Count 255 K/mm3 (150-450); RBC Distribution Width CV 12.8 % (11.6-14.6); RBC Distribution Width SD 39.2 fl (35.1-43.9); Red Blood Count 4.02 M/mm3 (4.2-5.4); White Blood Count 7.3 K/mm3 (4.4-11.0)
[2024-12-10 06:26] LABS: Anion Gap 9 (5-15); BUN 20 mg/dL (4-19); Calcium,Total 8.6 mg/dL (7.6-11.0); Carbon Dioxide 19.4 mmol/L (21.0-32.0); Chloride 91 mmol/L (98-108); EST Glomerular Filtration Rate 87 (>60); Glucose 111 mg/dL (70-99); Potassium 4.5 mmol/L (3.3-5.1); Sodium Level 119 mmol/L (133-145)
[2024-12-10] MEDS: Liothyronine 5 MCG Tablet PO (06:35)
[2024-12-10] MEDS: Levothyroxine 112 MCG Tablet PO (06:35)
[2024-12-10] MEDS: Meclizine HCl 25 MG Tablet PO ×3 (06:35→20:07)
[2024-12-10] MEDS: Senna Tablet 1 TABLET PO (07:33)
[2024-12-10] MEDS: Ondansetron 4 MG/2 ML Vial IV (08:06)
[2024-12-10] MEDS: 0.9% Normal Saline (1000mL) 1,000 ML 125 ML IV (08:07)
[2024-12-10] MEDS: Losartan Potassium 100 MG Tablet PO (09:27)
[2024-12-10] MEDS: Aspirin E.C. 81 MG Tablet PO (09:27)
[2024-12-10] MEDS: Meloxicam 15 MG Tablet PO (09:28)
[2024-12-10] MEDS: Sertraline 100 MG Tablet PO (09:28)
[2024-12-10] MEDS: Enoxaparin 40 MG/0.4 ML Syringe SC (09:28)
--- NOTE | 2024-12-10 09:57 | PCM.CONS.R ---
Assessment & Plan Assessment/Plan (1) Hyponatremia: PLAN: Plan This is a pleasant 79-year-old female with past medical history significant for coronary disease, hypertension, mitral valve insufficiency, history of hyponatremia in past; nephrology consulted for hyponatremia for this admission. Patient is known to our group as she was seen in hospital setting (July 2023, sodium abida 118 at that time. Hydrochlorothiazide stopped and started on sodium chloride tablets) for hyponatremia as well as in the office (last seen in office February 2024, sodium 138 and maintained on sodium chloride 1 g twice daily and FR ~48oz/day). Patient has been on sodium chloride 1 g twice daily prior to hospitalization. On admission sodium was 134 sodium went to 125 on December 08, yesterday her sodium was 118 and today sodium was 119. Urine sodium 22, urine Osmo 661, serum Osmo 257. Patient was started on IV fluids yesterday. Sodium chloride 1 g twice daily was restarted early this am. Patient is asymptomatic from hyponatremia and appears near euvolemic on exam. We will stop IV fluids. We will increase sodium chloride tablets and add dose of tolvaptan. Patient does not need frequent sodium checks. Labs ordered for morning. Will also add fluid restriction, patient follows fluid restriction at home. Patient was also encouraged increase protein/solute intake. Assessment and plan has been reviewed with Dr. Blount. Further orders forthcoming as hospitalization evolves, thank you for letting us to participate in the care of Ms. Lewis. HPI Consult Data Date of Consult: 12/10/24 HPI Narrative HPI Narrative: JERO LEWIS, is a 79 F who was brought to the emergency room for evaluation for syncopal episode and fall on December 06. Patient was found to have left patellar fracture. Patient was admitted for further evaluation and treatment. She has been seen by orthopedics who recommended conservative management with partial weightbearing. Nephrology consulted for hyponatremia. Patient is known to our group for hyponatremia in past. She was seen in July 2023 for hyponatremia, sodium was as low as 118. At that time she was on hydrochlorothiazide. Hydrochlorothiazide was stopped and patient was maintained on sodium chloride tablets 1 g twice daily along with fluid restriction and increase protein intake. Patient was also seen in our office, last seen in February 2024 sodium was 138, she was on Lasix and salt tablets 1 g twice daily. For this admission sodium was 134 on admission, went to 125 on December 08, on December 09 sodium 118 and today her sodium was 119. Salt tablets were ordered early this morning 1 g twice daily and patient was also started on normal saline IV fluids yesterday. Patient denies any nausea, vomiting or diarrhea. No headaches no vision changes no confusion. [facility] Medical History (Updated 12/10/24 @ 10:02 by ASHANTI Mulligan) Hyponatremia Vertigo PVCs (premature ventricular contractions) SOB (shortness of breath) Sleep apnea Vitamin D deficiency RLS (restless legs syndrome) Pulmonary hypertension Myalgia MVP (mitral valve prolapse) Dizziness CAD (coronary artery disease) Vitamin B12 deficiency Fatigue Osteoarthritis Depression Debility [place] disease History of endometrial biopsy COVID-19 Chronic hyponatremia Anxiety and depression Hypothyroidism Allergic rhinitis Hyperlipidemia HTN (hypertension) Home Medications ?Medication ?Instructions ?Recorded ?Last Taken ?Type atorvastatin 20 mg tablet 20 mg PO DAILY hld 07/28/23 07/30/23 History sodium chloride 1,000 mg soluble 1,000 mg PO BID supplement #60 tabs 07/31/23 07/31/23 Rx tablet acetaminophen 500 mg tablet 1,000 mg (2 x 500 mg) PO Q6H PRN 08/08/23 Unknown Rx PRN Pain Score 1-10 #0 tabs aspirin 81 mg tablet,delayed 81 mg PO DAILY #90 tabs 09/04/23 12/06/24 Rx release (Adult Aspirin Regimen) Held on 12/09/24. Instructions: Resume on 12/23/24. hold as she is being put on PO aspirin 81mg bid x 2 weeks for DVT prophylaxis. To resume aspirin 81mg daily when she completes the course of PO aspirin 81mg bid x 2 weeks. calcium 600 mg-D3 800 unit-mag 40 1 tab PO BID 09/04/23 12/06/24 History xc-bbzh-lzzr-joseph-boron chew tablet (Caltrate 600-D Plus Minerals) cyanocobalamin (vitamin B-12) 1,000 mcg PO QMONTH 09/04/23 Unknown History 1,000 mcg capsule olmesartan 40 mg tablet 40 mg PO DAILY see #90 tabs 10/25/23 12/06/24 Rx ipratropium bromide 21 mcg (0.03 2 spray intranasal BID 03/11/24 Unknown History %) nasal spray levocetirizine 5 mg tablet 5 mg PO QDAY 03/11/24 Unknown History sertraline 100 mg tablet 100 mg PO QDAY 03/11/24 12/05/24 History levothyroxine 125 mcg tablet 112 mcg PO QDAY 06/10/24 Unknown History liothyronine 5 mcg tablet 5 mcg PO QDAY 12/04/24 12/06/24 History metoprolol tartrate 50 mg tablet 50 mg PO BID #180 tabs 12/04/24 Unknown Rx spironolactone 25 mg tablet 25 mg PO DAILY #90 tabs 12/04/24 Unknown Rx carvedilol 3.125 mg tablet 3.125 mg PO BID 12/06/24 12/06/24 History acetaminophen 325 mg tablet 650 mg (2 x 325 mg) PO Q6H PRN 12/09/24 Unknown Rx (Tylenol) pain #30 tabs aspirin 81 mg tablet,delayed 81 mg PO BID 14 days #28 tabs 12/09/24 Unknown Rx release meclizine 25 mg tablet 25 mg PO TID #90 tabs 12/09/24 Unknown Rx Allergy/AdvReac Type Severity Reaction Status Date / Time propoxyphene HCl (From Allergy Nausea Verified 12/06/24 16:36 Darvon) atorvastatin AdvReac Intermediate myalgia Verified 12/06/24 16:36 codeine AdvReac Intermediate Nausea Verified 12/06/24 16:36 simvastatin AdvReac Intermediate Myalgia Verified 12/06/24 16:36 Family History Mother CVA (cerebral vascular accident) Father Kimberlee disease Son Kimberlee disease Brother Heart disease Hypertension Daughter Lupus Arthritis Sister Melanoma Surgical History Hx of cataract extraction (~2020) Hx of cardiac catheterization (~09/09/20) History of tonsillectomy (~1958) Hx of tubal ligation (~1982) H/O cone biopsy of cervix H/O dilation and curettage Hx of myringotomy S/P thyroid biopsy Social History household members: none Smoking Status: Never smoker alcohol intake: never substance use type: does not use caffeine: Yes Type: coffee Number of servings: 2 ROS ROS Narrative As in HPI Physical Exam Narrative Alert and oriented x 3, no apparent distress S1, S2, RRR Lung sounds clear Abdomen soft, rounded, nontender No edema Lab / Micro Data 12/10/24 04:59 12/10/24 04:59 Labs: Laboratory Results - last 24 hr 12/09/24 15:05: Sodium 118 L*, Potassium 4.4, Chloride 89 L, Carbon Dioxide 21.0, Anion Gap 8, BUN 22 H, Creatinine 0.75, Estim Creat Clear Calc 58.80, Est GFR (MDRD) Non-Af 80, BUN/Creatinine Ratio 30.0 H, Glucose 105 H, Serum Osmolality 257 L, Calcium 8.8 12/09/24 18:00: Urine Osmolality 661, Ur Random Sodium 22 12/09/24 22:19: Sodium 118 L* 12/10/24 04:59: WBC 7.3, RBC 4.02 L, Hgb 11.7 L, Hct 34.0 L, MCV 84.6, MCH 29.1, MCHC 34.4, RDW Std Deviation 39.2, RDW Coeff of Alejo 12.8, Plt Count 255, MPV 9.5, Immature Gran % (Auto) 0.400, Neut % (Auto) 76.0 H, Lymph % (Auto) 12.7 L, [place] % (Auto) 8.1, Eos % (Auto) 2.5, Baso % (Auto) 0.3, Absolute Neuts (auto) 5.5, Absolute Lymphs (auto) 0.92, Nucleated RBC % 0, Sodium 119 L*, Potassium 4.5, Chloride 91 L, Carbon Dioxide 19.4 L, Anion Gap 9, BUN 20 H, Creatinine 0.70, Estim Creat Clear Calc 58.80, Est GFR (MDRD) Non-Af 87, BUN/Creatinine Ratio 29.0 H, Glucose 111 H, Calcium 8.6 Rhythm Strip Rhythm Strip: Being read as paced. However the patient does not have a pacemaker. Rate: 72 Ectopy: None
[2024-12-10] MEDS: oxyCODONE 5 MG Tablet PO ×2 (10:19→16:52)
[2024-12-10] MEDS: Polyethylene Glycol 3350 17 GM PACKET PO (10:20)
[2024-12-10] MEDS: Mag Hydrox/Al Hydrox/Simeth 30 ML UDC 15 ML PO (10:20)
[2024-12-10] MEDS: TOLVAPTAN 15 MG TABLET PO (12:21)
[2024-12-10] MEDS: Sodium Chloride 1 GM Tablet 2 GM PO ×2 (14:05→20:07)
[2024-12-10 15:35] LABS: Anion Gap 12 (5-15); BUN 19 mg/dL (4-19); Calcium,Total 8.8 mg/dL (7.6-11.0); Carbon Dioxide 18.5 mmol/L (21.0-32.0); Chloride 88 mmol/L (98-108); Creatinine, Serum 0.67 mg/dL (0.70-1.20); EST Glomerular Filtration Rate 88 (>60); Glucose 110 mg/dL (70-99); Potassium 4.4 mmol/L (3.3-5.1); Sodium Level 118 mmol/L (133-145)
--- NOTE | 2024-12-10 16:27 | PN_ITS ---
Subjective Subjective Patient seen and examined. She had no complaints today. Review of systems otherwise negative. Nephrology consulted. Patient received a dose of tolvaptan today but repeat BMP this afternoon showed sodium was 118. She has remained hemodynamically stable. Objective Data Objective Data Vital Signs: Vital Signs Temp Pulse Resp BP Pulse Ox O2 Del Method O2 Flow Rate 97.7 F L 70 16 153/63 H 98 Room Air 2 12/10/24 14:42 12/10/24 14:42 12/10/24 14:42 12/10/24 14:42 12/10/24 14:42 12/10/24 14:42 12/10/24 08:55 Oxygen Flow Rate (L/min) 2 Oxygen Delivery Method Room Air Weight: 176 lb 2.389 oz Body Mass Index (BMI) 28.4 Intake & Output: Intake and Output for Last 24 Hours 12/08/24 12/09/24 12/10/24 23:59 23:59 23:59 Intake Total 1500 / 1900 2323.33 / 2323.33 / Output Total 600 / 850 350 / 650 1225 / 1225 Balance 900 / 1050 1973.33 / 1673.33 756.25 / 756.25 Lab / Micro Data 12/10/24 04:59 12/10/24 13:54 Labs: Laboratory Results - last 24 hr 12/09/24 15:05: Serum Osmolality 257 L 12/09/24 18:00: Urine Osmolality 661, Ur Random Sodium 22 12/09/24 22:19: Sodium 118 L* 12/10/24 04:59: WBC 7.3, RBC 4.02 L, Hgb 11.7 L, Hct 34.0 L, MCV 84.6, MCH 29.1, MCHC 34.4, RDW Std Deviation 39.2, RDW Coeff of [place] 12.8, Plt Count 255, MPV 9.5, Immature Gran % (Auto) 0.400, Neut % (Auto) 76.0 H, Lymph % (Auto) 12.7 L, [place] % (Auto) 8.1, Eos % (Auto) 2.5, Baso % (Auto) 0.3, Absolute Neuts (auto) 5.5, Absolute Lymphs (auto) 0.92, Nucleated RBC % 0, Sodium 119 L*, Potassium 4.5, Chloride 91 L, Carbon Dioxide 19.4 L, Anion Gap 9, BUN 20 H, Creatinine 0.70, Estim Creat Clear Calc 58.80, Est GFR (MDRD) Non-Af 87, BUN/Creatinine Ratio 29.0 H, Glucose 111 H, Calcium 8.6 12/10/24 13:54: Sodium 118 L*, Potassium 4.4, Chloride 88 L, Carbon Dioxide 18.5 L, Anion Gap 12, BUN 19, Creatinine 0.67 L, Estim Creat Clear Calc 58.80, Est GFR (MDRD) Non-Af 88, BUN/Creatinine Ratio 28.0 H, Glucose 110 H, Calcium 8.8 Rhythm Strip Rhythm Strip: Being read as paced. However the patient does not have a pacemaker. Rate: 72 Ectopy: None Physical Exam Const alert, oriented x3 and no apparent distress Constitutional Narrative: pain is well controlled. General Appearance: cooperative HEENT normocephalic and oropharynx normal Eyes PERRL and EOMs intact bilaterally Neck no lymphadenopathy and supple Lymph Lymphatic: no lymphadenopathy noted and no lymphedema noted Resp normal respiratory effort, normal air movement and no retractions Resp Narrative: mildly diminished breath sounds bibasally, no wheezes or crackles. Cardio regular rate, regular rhythm, S1 normal heart sound, S2 normal heart sound and no murmurs GI normal to inspection, nondistended, normoactive bowel sounds, soft to palpation, non-tender and non-distended Extremity normal capillary refill, no clubbing, cyanosis or edema and no calf tenderness Extremity Narrative: left knee in knee brace Skin General Skin Exam: no breakdown Neuro oriented x3 and CN's II-XII intact bilaterally Neuro Narrative: pain in LLE due to fractured left patella is fairly well controlled. . Sensorium / Orientation: alert Motor Exam: general weakness Psych Appearance: appropriate Assessment & Plan Assessment/Plan (1) Elevated troponin: (2) Syncope: QUALIFIERS: Syncope type: unspecified Qualified Code(s): R55 - Syncope and collapse (3) Preoperative cardiovascular examination: PLAN: Plan #Left patella fracture due to mechanical fall * orthopedic surgery on board * Orthopedic surgery recommends conservative management for now with partial weightbearing. * P.o. Tylenol, p.o. oxycodone and IV morphine as needed for pain * Cardiology reviewed patient and recommends no further cardiac workup as she is at low risk of perioperative cardiovascular events from surgery. * #Hyponatremia * sodium was 119 this morning and is 118 after repeating tolvaptan. * Urine sodium was 122. Serum osmolality was low and urine osmolarity was 661. * Nephrology on board. She got a dose of tolvaptan today. * will monitor sodium overnight. Per nephro, to hold off on giving any more IVF. * * #Syncope * patient has had recurrent syncope. * has had holter monitoring which showed nonsustained vtach * followed with [facility] on outpatient basis * cardiology consulted; recommendations as above. * She also had a stress test recently which was negative for any evidence of ischemia. * fall precautions. PT./ OT on board #Elevated troponins: * Likely due to demand ischemia from her syncope. * Initial troponin was 108 and trended up to a peak of 184. * Cardiology reviewed patient and recommended no further workup as she had recently had a stress test which was negative. #Nonsustained ventricular tachycardia * Thought to be the cause of the recurrent syncope. * has had holter monitoring done which showed evidence of nonsustained vtach. * cardiology consulted; per cardiology she had a coronary angiogram in 2019 which showed mild nonobstructive CAD. Recent stress test done was also negative for ischemia. * Cardiology recommends meclizine as they do not think syncope is cardiac in origin. * patient currently on meclizine * #CAD: On aspirin and carvedilol. #Hypothyroidism: On Synthroid and liothyronine #Hypertension: On carvedilol and losartan #Depression: On sertraline DVT prophylaxis: Lovenox Disposition: currently awaiting placement. For DC to TCU once hyponatremia resolves and patient is medically stable. CODE STATUS: DNR CCA no intubation. Charges/Coding Visit Charges Inpatient E&M: 93903 Subs Hosp L2
[2024-12-10] MEDS: Atorvastatin Calcium 20 MG Tablet PO (20:07)
[2024-12-11] MEDS: oxyCODONE 5 MG Tablet PO ×2 (02:04→08:39)
[2024-12-11 03:15] VITALS: BP 159/64; PULSE 71; RESP 16; TEMP 36.6; O2SAT 96
[2024-12-11] MEDS: Levothyroxine 112 MCG Tablet PO (05:29)
[2024-12-11] MEDS: Sodium Chloride 1 GM Tablet 2 GM PO ×2 (05:29→14:56)
[2024-12-11] MEDS: Liothyronine 5 MCG Tablet PO (05:29)
[2024-12-11] MEDS: Meclizine HCl 25 MG Tablet PO ×2 (05:29→14:56)
[2024-12-11] MEDS: Acetaminophen 500 MG Tablet 1000 MG PO (05:32)
[2024-12-11 05:37] LABS: Absolute Lymphocyte Count 0.65 X10^3/uL (0.83-4.51); Absolute Neutrophil Count 5.7 X10^3/uL (2.0-7.7); Basophil# 0.03 X10^3/uL; Basophil% 0.4 % (0-1); Eosinophil# 0.11 X10^3/uL; Eosinophils% 1.5 % (0-5); Lymphocyte # 0.65 X10^3/ul (0.83-4.51); Lymphocyte % 9.1 % (19-41); Mean Corp Hgb Conc 34.3 g/dL (32-36); Mean Corpuscular Hgb 29.3 pg (27.0-32.0); Mean Corpuscular Volume 85.6 fL (81-99); Mean Platelet Vol. 9.8 fl (6.2-12.0); Monocyte# 0.61 X10^3/uL; Monocyte% 8.5 % (0-10); NRBC Flagged by Analyzer 0 % (0-5); Neutrophil % 79.8 % (47-70); Platelet Count 277 K/mm3 (150-450); RBC Distribution Width CV 12.7 % (11.6-14.6); RBC Distribution Width SD 39.5 fl (35.1-43.9); Red Blood Count 4.09 M/mm3 (4.2-5.4); White Blood Count 7.2 K/mm3 (4.4-11.0)
[2024-12-11 06:21] LABS: Anion Gap 12 (5-15); BUN 23 mg/dL (4-19); BUN/Creat Ratio 24.2 RATIO (10-20); Calcium,Total 9.1 mg/dL (7.6-11.0); Carbon Dioxide 18.5 mmol/L (21.0-32.0); Chloride 91 mmol/L (98-108); Creatinine, Serum 0.95 mg/dL (0.70-1.20); EST Glomerular Filtration Rate 60 (>60); Estimated Creatinine Clearance 49.52 ml/min (50-250); Glucose 108 mg/dL (70-99); Potassium 4.7 mmol/L (3.3-5.1); Sodium Level 122 mmol/L (133-145)
[2024-12-11] MEDS: Polyethylene Glycol 3350 17 GM PACKET PO (08:39)
[2024-12-11] MEDS: Enoxaparin 40 MG/0.4 ML Syringe SC (08:40)
[2024-12-11] MEDS: Losartan Potassium 100 MG Tablet PO (08:40)
[2024-12-11] MEDS: Meloxicam 15 MG Tablet PO (08:40)
[2024-12-11] MEDS: Sertraline 100 MG Tablet PO (08:40)
[2024-12-11] MEDS: Aspirin E.C. 81 MG Tablet PO (08:40)
[2024-12-11 09:15] VITALS: BP 116/64; PULSE 62; RESP 18; TEMP 36.5; O2SAT 98
--- NOTE | 2024-12-11 09:47 | TREXTCAR_ITS ---
Diet Diet Order/Speech Therapy: 12/06/24 20:03 Diet: Regular - General Food consistency:: Regular Liquid Consistency:: Regular/Thin Routine Orders/Code Status Enema Type: Fleetz Enema Frequency: Daily PRN Suppository Type: Dulcolax 10mg Suppository Frequency: Daily PRN Routine Lab Work: BMP (Repeat in 3 to 5 days to monitor sodium level.) Code Status: DNRCC-A (DO NOT INTUBATE) DC O2, CPAP, BIPAP needs Home O2 Discharge instructions: No Wound(s) right forehead: Wound Type: Abrasion lips: Wound Type: Abrasion left knee: Wound Type: Abrasion Therapies Weight Bearing: Partial weight bearing (50% weightbearing in knee immobilizer) Physical Therapy: Eval and Treat Occupational Therapy: Eval and Treat Problem/Diagnosis (1) Elevated troponin: Status: Acute Code(s): R79.89 - Other specified abnormal findings of blood chemistry (2) Syncope: Status: Acute Code(s): R55 - Syncope and collapse (3) Preoperative cardiovascular examination: Status: Acute Code(s): Z01.810 - Encounter for preprocedural cardiovascular examination Plan Patient is an 79-year-old female who presented [facility] ED on 12/06/2024 with left knee pain after a fall. Hospital course as noted below. Patient discharged to TCU in stable condition on 12/11. 1. Left patella fracture due to mechanical fall with acute on chronic debility ? Orthopedic surgery followed. PT/OT/case management follow-up. Left knee x- ray on admit showed acute patellar fracture. Orthopedics recommended conservative management with 50% weightbearing in knee immobilizer. Pain control with Tylenol and oxycodone as needed. DVT prophylaxis with aspirin twice daily for 30 days. Stable for discharge to TCU on 12/11. Will follow-up with orthopedics in the office after discharge from TCU. 2. Hyponatremia ? Nephrology followed. Patient has history of chronic hyponatremia and nephrology has followed her in the past. Sodium abida of 118 on 12/10. Given dose of tolvaptan by nephrology on 12/10, repeat sodium 122 on 12/11. Per nephrology, patient okay for discharge on 12/11. Continue sodium chloride 2 g three times daily, fluid restriction of 1500 mL daily and increased protein/solute intake on discharge. Recommend repeat BMP in 3 to 5 days to ensure sodium level remains stable. 3. Syncope with history of nonsustained V. tach ? Cardiology followed. Has history of recurrent syncope and follows with [place] cardiology in the office. Notably had recent workup that showed V. tach but normal stress test as noted below and cardiology suspected a noncardiac origin of syncope. Continue meclizine as needed. 4. Elevated troponins ? Suspected secondary to demand ischemia from syncope. Initial troponin 108 and up trended with peak of 184. Cardiology followed as above and recent stress test was negative so no need for further cardiac workup here. 5. Nonsustained V. tach ? Cardiology followed as above. Had Holter monitoring done recently that showed nonsustained V. tach, but recent stress test was negative for ischemia and coronary angiogram back in 2019 showed mild nonobstructive CAD. Cardiology suspects noncardiac origin of syncope. Okay to continue home Coreg on discharge. Chronic medical conditions: ? History of nonobstructive CAD, hypertension, hyperlipidemia: Continue home statin, Coreg, and olmesartan. Treating with baby aspirin twice daily for 30 days as noted above, then okay to resume baby aspirin daily. ? Depression: Continue home sertraline. ? Hypothyroidism: Continue home Synthroid and liothyronine. Total clinical time spent by myself addressing the patient's medical issues, reviewing all the data, and collaborating with patient's care team: 35 minutes. Allergies/Procedures Done in Hospital Allergies propoxyphene HCl (From Darvon) Allergy (Verified 12/06/24 16:36) Nausea atorvastatin Adverse Reaction (Intermediate, Verified 12/06/24 16:36) myalgia codeine Adverse Reaction (Intermediate, Verified 12/06/24 16:36) Nausea simvastatin Adverse Reaction (Intermediate, Verified 12/06/24 16:36) Myalgia Procedures: EKG and - (CT brain/C-spine/facial and sinus, knee x-ray, chest x- ray) Type of Care/Length of Stay Estimated LOS: Convalescent Care Less Than 30 days Type of Care Needed: Skilled Rehab Potential: Fair Prognosis: Fair Additional Orders/Day of Discharge H&P will serve as current which was dated: 12/06/24 Day of Discharge: 12/11/24 Dietary and Speech Recommendations Dietitian Recommendations/Changes: Continue regular diet. Will monitor weight trends. Discharge Plan Admission Admit Date/Time: 12/06/24 18:45 Primary Reason for Your Visit: left patella fracture, mechanical fall Attending Provider: Donovan Cano Primary Care Provider: Maria Del Carmen Darby Consulting Providers: -Attn: Danielle Coker,[facility]; Sandro Jackman; Michelle Dang; De Blount; Montse Cabrera Instructions Patient Instructions: ED Patella Fracture Discharge Orders/Prescriptions Prescriptions: New meclizine 25 mg Tablet 25 mg PO TID Qty: 90 2RF acetaminophen [Tylenol] 325 mg tablet 650 mg PO Q6H PRN (Reason: pain) Qty: 30 1RF aspirin 81 mg tablet,delayed release (DR/EC) 81 mg PO BID 14 Days Qty: 28 0RF oxycodone 5 mg Tablet 5 mg PO Q6H PRN PRN (Reason: Pain Score 4-10) 3 Days Qty: 12 0RF sodium chloride 1,000 mg Tablet,Soluble 2,000 mg PO TID 30 Days Qty: 180 0RF Continued Caltrate 600-D Plus Minerals 600 mg calcium- 800 unit-40 mg tablet,chewable 1 tab PO BID cyanocobalamin (vitamin B-12) 1,000 mcg capsule 1,000 mcg PO QMONTH Rx Instructions: pt takes once a month at primary office levocetirizine 5 mg tablet 5 mg PO QDAY sertraline 100 mg tablet 100 mg PO QDAY ipratropium bromide 21 mcg (0.03 %) spray,non-aerosol 2 spray intranasal BID Patient Comments: [NO ORIGINAL SIG] levothyroxine 125 mcg tablet 112 mcg PO QDAY liothyronine 5 mcg tablet 5 mcg PO QDAY atorvastatin 20 mg tablet 20 mg PO DAILY Patient Comments: take 1 tablet by mouth once daily carvedilol 3.125 mg tablet 3.125 mg PO BID olmesartan 40 mg tablet 40 mg PO DAILY Qty: 90 3RF Held aspirin [Adult Aspirin Regimen] 81 mg tablet,delayed release (DR/EC) 81 mg PO DAILY Qty: 90 3RF Hold Instructions: Resume on 12/23/24. hold as she is being put on PO aspirin 81mg bid x 2 weeks for DVT prophylaxis. To resume aspirin 81mg daily when she completes the course of PO aspirin 81mg bid x 2 weeks. Discontinued metoprolol tartrate 50 mg tablet 50 mg PO BID Qty: 180 3RF spironolactone 25 mg tablet 25 mg PO DAILY Qty: 90 3RF acetaminophen 500 mg Tablet 1,000 mg PO Q6H PRN PRN (Reason: Pain Score 1-10) Qty: 0 0RF meloxicam 15 mg Tablet 15 mg PO DAILY Qty: 0 0RF sodium chloride 1,000 mg tablet,soluble 1,000 mg PO BID Qty: 60 0RF Patient Comments: take 1 tablet by mouth daily EXCEPT TAKE 2 TABS ON SUNDAY, WEDNESDAYS AND FRIDAYS Referrals / Follow Up: Maria Del Carmen Darby DO [Primary Care Provider] - Within 1 Week Luis Dozier MD [Med Staff - Active Staff] - Within 1 Week Disposition Disposition (needs filled in before D/C Order can be placed): [facility] Facility (2) Syncope Qualifiers: Syncope type: unspecified Qualified Code(s): R55 - Syncope and collapse
--- NOTE | 2024-12-11 09:48 | DS.PCM_ITS ---
Providers Date of Admission: 12/06/24 Date of Discharge: 12/11/24 Primary Care Physician: Dr. Maria Del Carmen Darby, Consultations 12/06/24 20:03 Consult: Orthopedics Routine Consulting Provider: -Attn: [facility] Reason for Consult: Patellar Fracture EMERGENT Consult: Yes MD Notified: Yes Date Notified: 12/06/24 Time Notified: 18:50 Method of Notification: ED Physician Initiated 12/06/24 22:09 Consult: Cardiology Routine Consulting Provider: Michelle Dang Reason for Consult: elevated troponins EMERGENT Consult: No Notified: Yes Date Notified: 12/07/24 Time Notified: 07:29 Method of Notification: Text 12/09/24 17:20 Consult: Nephrology Routine Consulting Provider: De Blount Reason for Consult: low sodium EMERGENT Consult: No Notified: Yes Date Notified: 12/09/24 Time Notified: 17:59 Method of Notification: Answering Service Reason For Visit: SYNCOPE Diagnosis Discharge Diagnosis (1) Elevated troponin: Status: Acute Code(s): R79.89 - Other specified abnormal findings of blood chemistry (2) Syncope: Status: Acute Code(s): R55 - Syncope and collapse Qualifiers: Syncope type: unspecified Qualified Code(s): R55 - Syncope and collapse (3) Preoperative cardiovascular examination: Status: Acute Code(s): Z01.810 - Encounter for preprocedural cardiovascular examination Medications at Discharge Home Medications atorvastatin 20 mg tablet 20 mg PO DAILY hld 07/28/23 aspirin 81 mg tablet,delayed release (Adult Aspirin Regimen) 81 mg PO DAILY #90 tabs 09/04/23 Held on 12/09/24. Instructions: Resume on 12/23/24. hold as she is being put on PO aspirin 81mg bid x 2 weeks for DVT prophylaxis. To resume aspirin 81mg daily when she completes the course of PO aspirin 81mg bid x 2 weeks. calcium 600 mg-D3 800 unit-mag 40 yg-tyji-atze-joseph-boron chew tablet (Caltrate 600-D Plus Minerals) 1 tab PO BID 09/04/23 cyanocobalamin (vitamin B-12) 1,000 mcg capsule 1,000 mcg PO QMONTH 09/04/23 olmesartan 40 mg tablet 40 mg PO DAILY see #90 tabs 10/25/23 ipratropium bromide 21 mcg (0.03 %) nasal spray 2 spray intranasal BID 03/11/24 levocetirizine 5 mg tablet 5 mg PO QDAY 03/11/24 sertraline 100 mg tablet 100 mg PO QDAY 03/11/24 levothyroxine 125 mcg tablet 112 mcg PO QDAY 06/10/24 liothyronine 5 mcg tablet 5 mcg PO QDAY 12/04/24 carvedilol 3.125 mg tablet 3.125 mg PO BID 12/06/24 acetaminophen 325 mg tablet (Tylenol) 650 mg (2 x 325 mg) PO Q6H PRN pain #30 tabs 12/09/24 aspirin 81 mg tablet,delayed release 81 mg PO BID 14 days #28 tabs 12/09/24 meclizine 25 mg tablet 25 mg PO TID #90 tabs 12/09/24 oxycodone 5 mg tablet 5 mg PO Q6H PRN PRN Pain Score 4-10 3 days #12 tabs 12/11/24 sodium chloride 1,000 mg soluble tablet 2,000 mg (2 x 1,000 mg) PO TID 30 days #180 tabs 12/11/24 Hospital Course Operations None Procedures EKG and - (CT brain/C-spine/facial and sinus, knee x-ray, chest x-ray) Summary of Care Provided Minutes Spent on Discharge: 35 Hospital Course: Patient is an 79-year-old female who presented [facility] ED on 12/06/2024 with left knee pain after a fall. Hospital course as noted below. Patient discharged to TCU in stable condition on 12/11. 1. Left patella fracture due to mechanical fall with acute on chronic debility ? Orthopedic surgery followed. PT/OT/case management follow-up. Left knee x- ray on admit showed acute patellar fracture. Orthopedics recommended conservative management with 50% weightbearing in knee immobilizer. Pain control with Tylenol and oxycodone as needed. DVT prophylaxis with aspirin twice daily for 30 days. Stable for discharge to TCU on 12/11. Will follow-up with orthopedics in the office after discharge from TCU. 2. Hyponatremia ? Nephrology followed. Patient has history of chronic hyponatremia and nephrology has followed her in the past. Sodium abida of 118 on 12/10. Given dose of tolvaptan by nephrology on 12/10, repeat sodium 122 on 12/11. Per nephrology, patient okay for discharge on 12/11. Continue sodium chloride 2 g three times daily, fluid restriction of 1500 mL daily and increased protein/solute intake on discharge. Recommend repeat BMP in 3 to 5 days to ensure sodium level remains stable. 3. Syncope with history of nonsustained V. tach ? Cardiology followed. Has history of recurrent syncope and follows with [place] [facility] in the office. Notably had recent workup that showed V. tach but normal stress test as noted below and cardiology suspected a noncardiac origin of syncope. Continue meclizine as needed. 4. Elevated troponins ? Suspected secondary to demand ischemia from syncope. Initial troponin 108 and up trended with peak of 184. Cardiology followed as above and recent stress test was negative so no need for further cardiac workup here. 5. Nonsustained V. tach ? Cardiology followed as above. Had Holter monitoring done recently that showed nonsustained V. tach, but recent stress test was negative for ischemia and coronary angiogram back in 2019 showed mild nonobstructive CAD. Cardiology suspects noncardiac origin of syncope. Okay to continue home Coreg on discharge. Chronic medical conditions: ? History of nonobstructive CAD, hypertension, hyperlipidemia: Continue home statin, Coreg, and olmesartan. Treating with baby aspirin twice daily for 30 days as noted above, then okay to resume baby aspirin daily. ? Depression: Continue home sertraline. ? Hypothyroidism: Continue home Synthroid and liothyronine. Total clinical time spent by myself addressing the patient's medical issues, reviewing all the data, and collaborating with patient's care team: 35 minutes. Physical Exam Const alert, oriented x3 and no apparent distress Constitutional Narrative: pain is well controlled. General Appearance: cooperative HEENT normocephalic and oropharynx normal Eyes PERRL and EOMs intact bilaterally Neck no lymphadenopathy and supple Lymph Lymphatic: no lymphadenopathy noted and no lymphedema noted Resp normal respiratory effort, normal air movement and no retractions Resp Narrative: mildly diminished breath sounds bibasally, no wheezes or crackles. Cardio regular rate, regular rhythm, S1 normal heart sound, S2 normal heart sound and no murmurs GI normal to inspection, nondistended, normoactive bowel sounds, soft to palpation, non-tender and non-distended Extremity normal capillary refill, no clubbing, cyanosis or edema and no calf tenderness Extremity Narrative: left knee in knee brace Skin General Skin Exam: no breakdown Neuro oriented x3 and CN's II-XII intact bilaterally Neuro Narrative: pain in LLE due to fractured left patella is fairly well controlled. . Sensorium / Orientation: alert Motor Exam: general weakness Psych Appearance: appropriate Weight / BMI Weight Weight: 79.9 kg Body Mass Index (BMI) 28.4 ABG / Lab / Microbiology Data 12/11/24 04:42 12/11/24 04:42 Laboratory: Laboratory Results - last 24 hr 12/10/24 13:54: Sodium 118 L*, Potassium 4.4, Chloride 88 L, Carbon Dioxide 18.5 L, Anion Gap 12, BUN 19, Creatinine 0.67 L, Estim Creat Clear Calc 58.80, Est GFR (MDRD) Non-Af 88, BUN/Creatinine Ratio 28.0 H, Glucose 110 H, Calcium 8.8 12/11/24 04:42: WBC 7.2, RBC 4.09 L, Hgb 12.0, Hct 35.0 L, MCV 85.6, MCH 29.3, MCHC 34.3, RDW Std Deviation 39.5, RDW Coeff of Alejo 12.7, Plt Count 277, MPV 9.8, Immature Gran % (Auto) 0.700, Neut % (Auto) 79.8 H, Lymph % (Auto) 9.1 L, [place] % (Auto) 8.5, Eos % (Auto) 1.5, Baso % (Auto) 0.4, Absolute Neuts (auto) 5.7, Absolute Lymphs (auto) 0.65 L, Nucleated RBC % 0, Sodium 122 L, Potassium 4.7, Chloride 91 L, Carbon Dioxide 18.5 L, Anion Gap 12, BUN 23 H, Creatinine 0.95, Estim Creat Clear Calc 49.52 L, Est GFR (MDRD) Non-Af 60, BUN/Creatinine Ratio 24.2 H, Glucose 108 H, Calcium 9.1 D/C Instructions Discharge Diet: Low fat / Low cholesterol Weight Bearing Status: Partial weight bearing Call your doctor if you observe: Fever of 101 or Higher, Shortness of breath, Dizziness, Chest pain and Uncontrolled pain DC O2, CPAP, BIPAP Needs Home O2 Discharge instructions: No Meaningful Use Info Meaningful Use Meaningful Use Diagnoses (Choose all that apply): None applicable Ischemic Stroke Statin Dosing Therapy Reference: STATIN DOSE THERAPY REFERENCE: * Patients > 75 years receive moderate or high dose statin therapy. * Patients 75 years or YOUNGER should receive HIGH intensity statin dose unless contraindicated. You will be required to document reason for non-treatment if statin daily dose does not meet guidelines. HIGH DOSE STATIN THERAPY DAILY Atorvastatin > than or = to 40 mg Rosuvastatin > than or = to 20 mg Amlodipine + Atorvastatin > than or = to 2.5/40 mg Ezetimibe + Simvastatin 10/80 mg Simvastatin 80mg Discharge Plan Admission Admit Date/Time: 12/06/24 18:45 Primary Reason for Your Visit: left patella fracture, mechanical fall Attending Provider: Donovan Cano Primary Care Provider: Maria Del Carmen Darby Consulting Providers: -Attn: Danielle Coker,[facility]; Sandro Jackman; Michelle Dang; De Blount; Montse Cabrera Instructions Patient Instructions: ED Patella Fracture Discharge Orders/Prescriptions Prescriptions: New meclizine 25 mg Tablet 25 mg PO TID Qty: 90 2RF acetaminophen [Tylenol] 325 mg tablet 650 mg PO Q6H PRN (Reason: pain) Qty: 30 1RF aspirin 81 mg tablet,delayed release (DR/EC) 81 mg PO BID 14 Days Qty: 28 0RF oxycodone 5 mg Tablet 5 mg PO Q6H PRN PRN (Reason: Pain Score 4-10) 3 Days Qty: 12 0RF sodium chloride 1,000 mg Tablet,Soluble 2,000 mg PO TID 30 Days Qty: 180 0RF Continued Caltrate 600-D Plus Minerals 600 mg calcium- 800 unit-40 mg tablet,chewable 1 tab PO BID cyanocobalamin (vitamin B-12) 1,000 mcg capsule 1,000 mcg PO QMONTH Rx Instructions: pt takes once a month at primary office levocetirizine 5 mg tablet 5 mg PO QDAY sertraline 100 mg tablet 100 mg PO QDAY ipratropium bromide 21 mcg (0.03 %) spray,non-aerosol 2 spray intranasal BID Patient Comments: [NO ORIGINAL SIG] levothyroxine 125 mcg tablet 112 mcg PO QDAY liothyronine 5 mcg tablet 5 mcg PO QDAY atorvastatin 20 mg tablet 20 mg PO DAILY Patient Comments: take 1 tablet by mouth once daily carvedilol 3.125 mg tablet 3.125 mg PO BID olmesartan 40 mg tablet 40 mg PO DAILY Qty: 90 3RF Held aspirin [Adult Aspirin Regimen] 81 mg tablet,delayed release (DR/EC) 81 mg PO DAILY Qty: 90 3RF Hold Instructions: Resume on 12/23/24. hold as she is being put on PO aspirin 81mg bid x 2 weeks for DVT prophylaxis. To resume aspirin 81mg daily when she completes the course of PO aspirin 81mg bid x 2 weeks. Discontinued metoprolol tartrate 50 mg tablet 50 mg PO BID Qty: 180 3RF spironolactone 25 mg tablet 25 mg PO DAILY Qty: 90 3RF acetaminophen 500 mg Tablet 1,000 mg PO Q6H PRN PRN (Reason: Pain Score 1-10) Qty: 0 0RF meloxicam 15 mg Tablet 15 mg PO DAILY Qty: 0 0RF sodium chloride 1,000 mg tablet,soluble 1,000 mg PO BID Qty: 60 0RF Patient Comments: take 1 tablet by mouth daily EXCEPT TAKE 2 TABS ON SUNDAY, WEDNESDAYS AND FRIDAYS Referrals / Follow Up: Maria Del Carmen Darby DO [Primary Care Provider] - Within 1 Week Luis Dozier MD [Med Staff - Active Staff] - Within 1 Week Disposition Disposition (needs filled in before D/C Order can be placed): Intermediate Facility Charges/Coding Visit Charges Inpatient E&M: 93249 Disch Hosp >30min
--- NOTE | 2024-12-11 10:33 | PN.RENAL_ITS ---
Subjective Subjective Resting in bed, no overnight events. Objective Data Objective Data Vital Signs: Vital Signs Temp Pulse Resp BP Pulse Ox O2 Del Method O2 Flow Rate 97.7 F L 62 18 116/64 98 Room Air 2 12/11/24 09:15 12/11/24 09:15 12/11/24 09:15 12/11/24 09:15 12/11/24 09:15 12/11/24 09:15 12/11/24 08:50 Oxygen Flow Rate (L/min) 2 Oxygen Delivery Method Room Air Weight: 79.9 kg Body Mass Index (BMI) 28.4 Intake & Output: Intake and Output for Last 24 Hours 12/09/24 12/10/24 12/11/24 23:59 23:59 23:59 Intake Total 2323.33 / 2323.33 2221.25 / 2221.25 Output Total 350 / 650 1725 / 2525 1100 / 1100 Balance 1973.33 / 1673.33 496.25 / -303.75 -1100 / -1100 Lab / Micro Data 12/11/24 04:42 12/11/24 04:42 Labs: Laboratory Results - last 24 hr 12/10/24 13:54: Sodium 118 L*, Potassium 4.4, Chloride 88 L, Carbon Dioxide 18.5 L, Anion Gap 12, BUN 19, Creatinine 0.67 L, Estim Creat Clear Calc 58.80, Est GFR (MDRD) Non-Af 88, BUN/Creatinine Ratio 28.0 H, Glucose 110 H, Calcium 8.8 12/11/24 04:42: WBC 7.2, RBC 4.09 L, Hgb 12.0, Hct 35.0 L, MCV 85.6, MCH 29.3, MCHC 34.3, RDW Std Deviation 39.5, RDW Coeff of Alejo 12.7, Plt Count 277, MPV 9.8, Immature Gran % (Auto) 0.700, Neut % (Auto) 79.8 H, Lymph % (Auto) 9.1 L, [place] % (Auto) 8.5, Eos % (Auto) 1.5, Baso % (Auto) 0.4, Absolute Neuts (auto) 5.7, Absolute Lymphs (auto) 0.65 L, Nucleated RBC % 0, Sodium 122 L, Potassium 4.7, Chloride 91 L, Carbon Dioxide 18.5 L, Anion Gap 12, BUN 23 H, Creatinine 0.95, Estim Creat Clear Calc 49.52 L, Est GFR (MDRD) Non-Af 60, BUN/Creatinine Ratio 24.2 H, Glucose 108 H, Calcium 9.1 Rhythm Strip Rhythm Strip: Being read as paced. However the patient does not have a pacemaker. Rate: 72 Ectopy: None Physical Exam Narrative Alert and oriented x 3, no apparent distress S1, S2, RRR Lung sounds clear Abdomen soft, rounded, nontender No edema Assessment & Plan Assessment/Plan (1) Hyponatremia: PLAN: Plan This is a pleasant 79-year-old female with past medical history significant for coronary disease, hypertension, mitral valve insufficiency, history of hyponatremia in past; nephrology consulted for hyponatremia for this admission. Patient is known to our group as she was seen in hospital setting (July 2023, sodium abida 118 at that time. Hydrochlorothiazide stopped and started on sodium chloride tablets) for hyponatremia as well as in the office (last seen in office February 2024, sodium 138 and maintained on sodium chloride 1 g twice daily and FR ~48oz/day). Patient has been on sodium chloride 1 g twice daily prior to hospitalization. - Acute hyponatremia; On admission sodium was 134 sodium went to 125 on December 08, her sodium went to 118 --> 119. Urine sodium 22, urine Osmo 661, serum Osmo 257. Patient is asymptomatic from hyponatremia and appears near euvolemic on exam. Off IV fluids. Received dose tolvaptan 15mg yesterday, restarted back on salt tablets at higher dose than her home dose, sodium 122 today. Does not need tolvaptan. Continue fluid restriction, patient follows fluid restriction at home. Patient was also encouraged increase protein/solute intake. Continue salt tabs with expectation to eventually decrease dose back down to home dose 1 g twice daily. Possible transfer to skilled unit today, ok for transfer per renal. Assessment and plan reviewed with Dr. Blount.
[2024-12-11 11:43] VITALS: BP 116/64; PULSE 62; RESP 18; TEMP 36.5; O2SAT 98
--- NOTE | 2024-12-11 11:44 | PHA.DC.MR.R ---
Pharmacy [place] Med Reconciliation Pharmacy Service has performed discharge medication reconciliation for this patient upon transfer to TCU. The patient's discharge medication list was reviewed for discrepancies and discrepancies were resolved. Medications at Discharge Home Medications atorvastatin 20 mg tablet 20 mg PO DAILY hld 07/28/23 aspirin 81 mg tablet,delayed release (Adult Aspirin Regimen) 81 mg PO DAILY #90 tabs 09/04/23 Held on 12/09/24. Instructions: Resume on 12/23/24. hold as she is being put on PO aspirin 81mg bid x 2 weeks for DVT prophylaxis. To resume aspirin 81mg daily when she completes the course of PO aspirin 81mg bid x 2 weeks. calcium 600 mg-D3 800 unit-mag 40 sl-rywz-mfup-joseph-boron chew tablet (Caltrate 600-D Plus Minerals) 1 tab PO BID 09/04/23 cyanocobalamin (vitamin B-12) 1,000 mcg capsule 1,000 mcg PO QMONTH 09/04/23 olmesartan 40 mg tablet 40 mg PO DAILY see #90 tabs 10/25/23 ipratropium bromide 21 mcg (0.03 %) nasal spray 2 spray intranasal BID 03/11/24 levocetirizine 5 mg tablet 5 mg PO QDAY 03/11/24 sertraline 100 mg tablet 100 mg PO QDAY 03/11/24 levothyroxine 125 mcg tablet 112 mcg PO QDAY 06/10/24 liothyronine 5 mcg tablet 5 mcg PO QDAY 12/04/24 carvedilol 3.125 mg tablet 3.125 mg PO BID 12/06/24 acetaminophen 325 mg tablet (Tylenol) 650 mg (2 x 325 mg) PO Q6H PRN pain #30 tabs 12/09/24 aspirin 81 mg tablet,delayed release 81 mg PO BID 14 days #28 tabs 12/09/24 meclizine 25 mg tablet 25 mg PO TID #90 tabs 12/09/24 oxycodone 5 mg tablet 5 mg PO Q6H PRN PRN Pain Score 4-10 3 days #12 tabs 12/11/24 sodium chloride 1,000 mg soluble tablet 2,000 mg (2 x 1,000 mg) PO TID 30 days #180 tabs 12/11/24
--- NOTE | 2024-12-11 12:18 | NURSING ---
Report called to nurse Crews for pt to be d/c to TCU.
--- NOTE | 2024-12-11 12:30 | CASEMGMT ---
SUMMER called patient's son Dwain and let him know patient is going to TCU today. Dwain thanked SUMMER for notifying him. Plan: d/c to [facility] TCU under skilled level of care. Jazmín UGARTE
[2024-12-11] MEDS: Mag Hydrox/Al Hydrox/Simeth 30 ML UDC 15 ML PO (15:10)
[2024-12-11] MEDS: Ondansetron 4 MG/2 ML Vial IV (15:10)
[2024-12-11] MEDS: 0.9% Saline Lock 10 ML Syringe IV (15:10)
== END 2024-12-11 16:09 | disposition skilled nursing facility (03) | DRG 563 ==
LOC: ED 17:56 → PCU 18:10
PROVIDERS: Physician Assistant; Student in an Organized Health Care Education/Training Program; Admitting Provider Internal Medicine; Emergency Provider Emergency Medicine; PCP Family Medicine; Visit Provider Hospitalist
DX: S82.032A Displaced transverse fracture of left patella, initial encounter for closed fracture (principal); I24.89 Other forms of acute ischemic heart disease; I47.29 Other ventricular tachycardia; E87.1 Hypo-osmolality and hyponatremia; Z66 Do not resuscitate; E03.9 Hypothyroidism, unspecified; I10 Essential (primary) hypertension; F32.A Depression, unspecified; I25.10 Atherosclerotic heart disease of native coronary artery without angina pectoris; W19.XXXA Unspecified fall, initial encounter; F41.9 Anxiety disorder, unspecified; R79.89 Other specified abnormal findings of blood chemistry; R55 Syncope and collapse; Z79.82 Long term (current) use of aspirin; Z86.16 Personal history of COVID-19; Z79.899 Other long term (current) drug therapy
CPT/HCPCS: 36415; 70450; 70486; 71045; 72125; 73560; 80048; 80053; 82248; 83735; 83930; 83935; 84100; 84295; 84300; 84443; 84484; 85025; 85610; 90715; 93005; 97162; 97166; 97530; 97535; 97802; 99285; A4216; J2405

== ENCOUNTER 2024-12-11 16:17 | Inpatient (IN) | payer MEDICARE, BC, SELFPAY ==
[2024-12-11 16:36] VITALS: BMI 31.1
[2024-12-11 16:38] VITALS: BP 119/44; PULSE 73; RESP 16; TEMP 36.3; O2SAT 96
[2024-12-11] MEDS: Carvedilol 3.125 MG TABLET PO (17:41)
[2024-12-11] MEDS: Magnesium Citrate 300 ML PO (18:02)
--- NOTE | 2024-12-11 19:30 | HP.PCM_ITS ---
HPI - General General Date of Admission: 12/11/24 Date of Service: 12/11/24 Chief Complaint: Here for rehabilitation. HPI Narrative JERO LAYNE, is a 79 Female who presents with followin12/06/2024 [facility] ED fall. Bent over, passed out, fell on face. Brought in by EMS in [place]. Left knee pain. X-ray showed left knee displaced patella fracture. Syncope 2/2 orthostatic hypotension. 12/06/2024 Admit [facility]. Plan surgery for left displaced patella fracture. Hold beta erin, Hold ARB for orthostasis/syncope. PT/OT. 12/07/2024 Left knee pain well controlled. Ortho recommended conservative treatment of left displaced patella fracture. Partial weight bearing. Tylenol, Oxycodone, Morphine IV for pain. Syncope, holter showed NSVT, stress test negative. Cardiology recommended meclizine, do not think syncope is cardiogenic. 12/08/2024 Left knee pain well controlled. PT/OT SNF. Dizziness improved with meclizine. Dizziness c/w BPPV. No further workup for elevated troponin. 12/09/2024 Sodium 118. Normal Saline 125cc/hour, urine sodium, urine osmolality, serum osmolality. Consult Nephrology for hyponatremia. 12/10/2024 Add sodium chloride 1gram twice daily . 12/10/2024 Tolvaptan given. Sodium 118. PT/OT. 12/11/2024 Admit to TCU with debility, here for rehabilitation, strengthening, prior to disposition determination. [facility] Medical History (Updated 12/11/24 @ 19:[address] Juan Diego Marks MD) Osteoarthritis Depression Debility Hyponatremia Vertigo PVCs (premature ventricular contractions) SOB (shortness of breath) Sleep apnea Vitamin D deficiency RLS (restless legs syndrome) Pulmonary hypertension Myalgia MVP (mitral valve prolapse) Dizziness CAD (coronary artery disease) Vitamin B12 deficiency Fatigue Mcallen disease History of endometrial biopsy COVID-19 Chronic hyponatremia Anxiety and depression Hypothyroidism Allergic rhinitis Hyperlipidemia HTN (hypertension) Home Medications ?Medication ?Instructions ?Recorded ?Last Taken ?Type atorvastatin 20 mg tablet 20 mg PO DAILY hld 07/28/23 07/30/23 History aspirin 81 mg tablet,delayed 81 mg PO DAILY #90 tabs 09/04/23 12/06/24 Rx release (Adult Aspirin Regimen) Held on 12/09/24. Instructions: Resume on 12/23/24. hold as she is being put on PO aspirin 81mg bid x 2 weeks for DVT prophylaxis. To resume aspirin 81mg daily when she completes the course of PO aspirin 81mg bid x 2 weeks. calcium 600 mg-D3 800 unit-mag 40 1 tab PO BID 3 12/06/24 History qb-liqg-nrmj-joseph-boron chew tablet (Caltrate 600-D Plus Minerals) cyanocobalamin (vitamin B-12) 1,000 mcg PO QMONTH 08/24 11/16 Unknown History 1,000 mcg capsule olmesartan 40 mg tablet 40 mg PO DAILY see #90 ta bs 10/25/23 12/06/24 Rx ipratropium bromide 21 mcg (0.03 2 spray intranasal BI D 03/11/24 Unknown History %) nasal spray levocetirizine 5 mg tablet 5 mg PO QDAY 03/11/24 Unkno wn History sertraline 100 mg tablet 100 mg PO QDAY 03/11/2411/22 History levothyroxine 125 mcg tablet 112 mcg PO QDAY 06/10/24 Unknown History liothyronine 5 mcg tablet 5 mcg PO QDAY 12/04/2412/06 History carvedilol 3.125 mg tablet 3.125 mg PO BID 12/06/24 History acetaminophen 325 mg tablet 650 mg (2 x 325 mg) PO Q6H PRN 12/09/24 Unknown Rx (Tylenol) pain #30 tabs aspirin 81 mg tablet,delayed 81 mg PO BID heart health 14 days 12/09/24 Unknown Rx release #28 tabs meclizine 25 mg tablet 25 mg PO TID vertigo #90 tab s 12/09/24 Unknown Rx oxycodone 5 mg tablet 5 mg PO Q6H PRN PRN Pain Sco re 12/11/24 Unknown Rx 4-10 3 days #12 tabs sodium chloride 1,000 mg soluble 2,000 mg (2 x 1,000 m g) PO TID 12/11/24 Unknown Rx tablet salt 30 days #180 tabs Allergy/AdvReac Type Severity Reaction Status Date / Time propoxyphene HCl (From Allergy Nausea Verified 12/06/24 16:36 Darvon) atorvastatin AdvReac Intermediate myalgia Verified 12/06/24 16:36 codeine AdvReac Intermediate Nausea Verified 12/06/24 16:36 simvastatin AdvReac Intermediate Myalgia Verified 12/06/24 16:36 Family History Mother CVA (cerebral vascular accident) Father Mcallen disease Son Mcallen disease Brother Heart disease Hypertension Daughter Lupus Arthritis Sister Melanoma Surgical History Hx of cataract extraction (~2020) Hx of cardiac catheterization (~09/09/20) History of tonsillectomy (~1958) Hx of tubal ligation (~1982) H/O cone biopsy of cervix H/O dilation and curettage Hx of myringotomy S/P thyroid biopsy Social History household members: none Smoking Status: Never smoker alcohol intake: never substance use type: does not use caffeine: Yes Type: coffee Number of servings: 2 ROS Constitutional Constitutional: Reports weakness; Denies chills, fever(s) or weight gain ENT HEENT: Denies headache(s), nasal congestion or nasal discharge Cardiovascular Cardiovascular: Denies chest pain or palpitations Respiratory/Chest Respiratory/Chest: Denies cough, excessive phlegm production or shortness of breath with exertion Gastrointestinal Gastrointestinal: Denies abdominal pain, nausea or vomiting Genitourinary Genitourinary: Denies dysuria Musculoskeletal Musculoskeletal: Denies joint pain or joint swelling Integumentary Integumentary: Denies rash or wounds Neurologic Neurologic: Reports dizziness; Denies focal weakness, numbness or tingling Psychiatric Psychiatric: Denies anxiety, auditory hallucinations, depression, homicidal ideation or suicidal ideation Vital Signs Vital Signs Vital Signs: 12/11/24 16:38 12/11/24 17:00 Temperature 97.4 F L Temperature Source Temporal Pulse Rate 73 Pulse Rhythm Regular Pulse Strength Normal (2+) Respiratory Rate 16 Respiratory Effort Normal Non-Labored Respiratory Depth Normal Respiratory Pattern Normal Blood Pressure 119/44 L Blood Pressure Mean 69 Blood Pressure Source Monitor Blood Pressure Position Supine Blood Pressure Location Left Arm Pulse Ox 96 Oxygen Delivery Method Room Air Room Air Weight Weight: 87.6 kg Body Mass Index (BMI) 31.1 Physical Exam Const alert General Appearance: cooperative HEENT normocephalic HEENT Narrative: Bruising above right eyebrow, right upper lip eschar, right chin bruise. Eyes PERRL and EOMs intact bilaterally Neck supple, no JVD and no carotid bruits Resp normal respiratory effort, normal air movement and clear to auscultation bilaterally Cardio regular rate and regular rhythm GI normal to inspection, nondistended, normoactive bowel sounds, non-tender and non-distended Extremity normal capillary refill Extremity Narrative: Left knee immobilizer. General Extremity: Negative for edema Skin no rashes or lesions noted General Skin Exam: no breakdown Psych affect normal Appearance: appropriate Assessment & Plan Assessment/Plan (1) Debility: (2) Syncope: QUALIFIERS: Syncope type: unspecified Qualified Code(s): R55 - Syncope and collapse (3) Orthostatic hypotension: (4) BPPV (benign paroxysmal positional vertigo): (5) Closed fracture of left patella: (6) Elevated troponin: (7) Hyponatremia: (8) Essential (primary) hypertension: (9) Hyperlipidemia: (10) CAD (coronary artery disease): (11) Osteoarthritis: (12) Allergic rhinitis: (13) Depression: (14) Hypothyroidism: PLAN: Plan 79 year old female with below past medical history hospitalized for left displaced patella fracture, syncope, orthostatic hypotension, bppv, complicated by elevated troponin, hyponatremia, nsvt, admitted to TCU with debility, here for rehabilitation, strengthening, prior to disposition determination. * Debility - PT/OT. * Pain - Tylenol 1000mg q6 prn pain (1-3), Oxycodone 5mg q6 prn pain (4-10) * Bowel - Miralax 17gm daily, senna/colace 2 tablets bid, Magnesium citrate 300mL po x 1 prn * Adult immunization - Administer pneumonia vaccine, covid vaccine, flu vaccine as appropriate. * DVT prophylaxis - Aspirin 81mg po bid thru 12/22/2024, then Aspirin 81mg daily. * Left displaced patella fracture - Left knee immobilizer, partial weight bearing, follow up with Ortho. * BPPV - Meclizine 25mg tid. * Orthostatic hypotension - consider Midodrine. * Hyperlipidemia - Atorvastatin 20mg qhs. * Coronary artery disease - Coreg 3.125mg bidcm, Asprin 81mg daily. * B12 deficiency - B12 1000mcg im qmonth. * Allergic rhinitis - Atrovent 0.06% 1 spray nasal bid, Loratadine 10mg daily. * Hypothyroidism - Levothyroxine 112mcg daily, Liothyronine 5mcg daily. * Skin irritation - Calmoseptine topical bid. * Tinea Corporis - Nystatin powder topical bid. 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 * Hyponatremia - Fluid restriction, Sodium chloride 2gm tid, monitor sodium, consider not using SSRI.
[2024-12-11 19:35] VITALS: BP 114/62; PULSE 60; RESP 16; TEMP 36.7; O2SAT 96
[2024-12-11] MEDS: oxyCODONE 5 MG Tablet PO (19:38)
[2024-12-11] MEDS: Acetaminophen 325 MG Tablet 650 MG PO (19:39)
[2024-12-11] MEDS: Ipratropium Bromide 0.06% NASAL SPRAY 1 SPRAY NASAL (22:49)
[2024-12-11] MEDS: Aspirin E.C. 81 MG Tablet PO (22:50)
[2024-12-11] MEDS: Sodium Chloride 1 GM Tablet 2 GM PO (22:51)
[2024-12-11] MEDS: Meclizine HCl 25 MG Tablet PO (22:51)
[2024-12-11] MEDS: Senna/Docusate Sodium 1 Tablet 2 TABLET PO (22:51)
[2024-12-11] MEDS: Atorvastatin Calcium 20 MG Tablet PO (22:52)
[2024-12-12] MEDS: oxyCODONE 5 MG Tablet PO ×3 (02:05→16:09)
[2024-12-12 06:05] VITALS: BP 132/61; PULSE 64; RESP 16; TEMP 37; O2SAT 95
[2024-12-12] MEDS: Meclizine HCl 25 MG Tablet PO ×3 (06:06→21:46)
[2024-12-12] MEDS: Sodium Chloride 1 GM Tablet 2 GM PO ×3 (06:06→21:46)
[2024-12-12] MEDS: Levothyroxine 112 MCG Tablet PO (06:07)
[2024-12-12 07:09] LABS: Absolute Lymphocyte Count 0.93 X10^3/uL (0.83-4.51); Absolute Neutrophil Count 4.4 X10^3/uL (2.0-7.7); Basophil# 0.02 X10^3/uL; Basophil% 0.3 % (0-1); Eosinophil# 0.31 X10^3/uL; Hematocrit 32.6 % (37-47); Lymphocyte # 0.93 X10^3/ul (0.83-4.51); Lymphocyte % 14.9 % (19-41); Mean Corp Hgb Conc 33.7 g/dL (32-36); Mean Corpuscular Hgb 29.4 pg (27.0-32.0); Mean Corpuscular Volume 87.2 fL (81-99); Mean Platelet Vol. 9.8 fl (6.2-12.0); Monocyte# 0.58 X10^3/uL; Monocyte% 9.3 % (0-10); NRBC Flagged by Analyzer 0 % (0-5); Neutrophil # 4.38 X10^3/uL (2.7-7.7); Platelet Count 290 K/mm3 (150-450); RBC Distribution Width CV 13.2 % (11.6-14.6); RBC Distribution Width SD 41.7 fl (35.1-43.9); Red Blood Count 3.74 M/mm3 (4.2-5.4); White Blood Count 6.3 K/mm3 (4.4-11.0)
--- NOTE | 2024-12-12 07:18 | PHA.CONS_ITS ---
Documented by User: Shawna Carranza 12/12/24 07:42 TCU RX Drug Regimen Review Subjective/Objective Subjective/Objective Subjective: TCU Admission. 79 YOF presented to the ER with a fall. Hospitalized for left displaced patella fracture, syncope, orthostatic hypotension, bppv, complicated by elevated troponin, hyponatremia, nsvt. Admitted to TCU with debility for strengthening and rehabilitation. Objective: Allergies propoxyphene HCl (From Darvon) Allergy (Verified 12/06/24 16:36) Nausea atorvastatin Adverse Reaction (Intermediate, Verified 12/06/24 16:36) myalgia codeine Adverse Reaction (Intermediate, Verified 12/06/24 16:36) Nausea simvastatin Adverse Reaction (Intermediate, Verified 12/06/24 16:36) Myalgia Current Medications Generic Name Dose Route Start Last Admin Trade Name Freq PRN Reason Stop Dose Admin Acetaminophen 1,000 mg 12/11/24 19:44 12/12/24 00:00 Acetaminophen 500 Mg Tablet PO 1,000 mg Q6H PRN Administration Pain Score 1-3 Aspirin 81 mg 12/23/24 08:00 Aspirin E.C. 81 Mg Tablet PO BREAKFAST [facility] Aspirin 81 mg 12/11/24 22:00 12/11/24 22:50 Aspirin E.C. 81 Mg Tablet PO 12/22/24 22:01 81 mg BID JENNIFER Administration Atorvastatin Calcium 20 mg 12/11/24 22:00 12/11/24 22:52 Atorvastatin Calcium 20 Mg Tablet PO 20 mg QHS [facility] Administration Calamine/Phenol 1 applic 12/12/24 06:00 12/12/24 06:08 Menthol/Lanolin/Calamine/Znox 113 Gm Tube TOPICAL Not Given 0600,1800 [facility] Protocol Carvedilol 3.125 mg 12/11/24 17:00 12/11/24 17:41 Carvedilol 3.125 Mg Tablet PO 3.125 mg BIDCM JENNIFER Administration Protocol Cyanocobalamin 1,000 mcg 12/18/24 10:00 Cyanocobalamin (B12) 1,000 Mcg/Ml Vial IM QMONTH [facility] Ipratropium [place] 1 spray 12/11/24 22:00 12/11/24 22:49 Ipratropium [place] 0.06% Nasal [place] NASAL 1 spray BID [facility] Administration Levothyroxine Sodium 112 mcg 12/12/24 06:00 12/12/24 06:07 Levothyroxine 112 Mcg Tablet PO 112 mcg DAILY@0600 JENNIFER Administration Liothyronine Sodium 5 mcg 12/12/24 10:00 Liothyronine 5 Mcg Tablet PO DAILY JENNIFER Loratadine 10 mg 12/12/24 10:00 Loratadine 10 Mg Tablet PO DAILY JENNIFER Magnesium Citrate 300 ml 12/11/24 16:33 12/11/24 18:02 Magnesium Citrate 300 Ml PO 300 ml X1 PRN Administration Constipation Meclizine HCl 25 mg 12/11/24 22:00 12/12/24 06:06 Meclizine Hcl 25 Mg Tablet PO 25 mg TID [facility] Administration Nystatin 1 applic 12/11/24 22:00 12/11/24 22:54 Nystatin Powder 15gm Bottle TOPICAL Not Given BID [facility] Protocol Oxycodone HCl 5 mg 12/11/24 16:30 12/12/24 02:05 Oxycodone 5 Mg Tablet PO 5 mg Q6H PRN PRN Administration Pain Score 4-10 Polyethylene Glycol 17 gm 12/12/24 10:00 Polyethylene Glycol 3350 17 Gm Packet PO DAILY JENNIFER Senna/Docusate Sodium 2 tablet 12/11/24 22:00 12/11/24 22:51 Senna/Docusate Sodium 1 Tablet PO 2 tablet BID JENNIFER Administration Sertraline HCl 100 mg 12/12/24 10:00 Sertraline 100 Mg Tablet PO DAILY JENNIFER Sodium Chloride 2 gm 12/11/24 22:00 12/12/24 06:06 Sodium Chloride 1 Gm Tablet PO 2 gm TID JENNIFER Administration Sodium Chloride 10 - 40 ml 12/11/24 16:44 0.9% Saline Lock 10 Ml Syringe IV UD PRN SALINE FLUSH Tuberculin PPD 0.1 ml 12/12/24 10:00 Tuberculin,Purif.Prot.Deriv. 50 Tu/Ml Vial ID 12/12/24 10:01 X1 ONE Tuberculin PPD 0.1 ml 12/19/24 10:00 Tuberculin,Purif.Prot.Deriv. 50 Tu/Ml Vial ID 12/19/24 10:01 X1 ONE Problem List Hypothyroidism (Acute) Depression (Acute) Allergic rhinitis (Acute) Osteoarthritis (Acute) Essential (primary) hypertension (Acute) BPPV (benign paroxysmal positional vertigo) (Acute) Orthostatic hypotension (Acute) Debility (Acute) Hyponatremia (Acute) CAD (coronary artery disease) (Chronic) Hyperlipidemia (Chronic) Vital Signs Temp Pulse Resp BP Pulse Ox O2 Del Method 98.6 F 64 16 132/61 H 95 Room Air 12/12/24 06:05 12/12/24 06:05 12/12/24 06:05 12/12/24 06:05 12/12/24 06:05 12/12/24 06:05 Oxygen Delivery Method Room Air Weight: 87.6 kg Body Mass Index (BMI) 31.1 Assessment/Plan: 1. Pain: acetaminophen 1000mg PO Q6H PRN pain 1-3 and oxycodone 5mg PO Q6H PRN pain 4-10. Resident has had 1 dose of acetaminophen and 2 doses of oxycodone for pain scores of 10 in the knee. Please continue to monitor for increased pain, PRN usage, constipation, respiratory depression, falls (BEERs). 2. Bowel: Miralax 17gm PO daily, senna/docusate 2T PO BID and magnesium citrate 300mL PO x1 PRN constipation. Resident had a dose of magnesium citrate. Last documented bowel movement was 12/06, resident is on scheduled meclizine which could be contributing. Please continue to monitor for constipation and PRN usage. 3. DVT prophylaxis: aspirin 81mg PO BID thru 12/22/24, then resume daily. Please continue to monitor for S/S of bleeding/DVT, bruising, hemoglobin (last 11g/dL). 4. CAD: carvedilol 3.125mg PO BIDCM and aspirin 81mg PO daily starting 12/23/24 (following BID DVT prophylaxis). Please continue to monitor BP (last 132/61), HR (last 64) and S/S of bleeding. 5. Hyponatremia: sodium chloride 2gm PO TID. Please see physician note regarding sertraline. Please continue to monitor sodium levels (last 122mmol/L, today's level pending at the time of this note writing). 6. BPPV: meclizine 25mg PO TID. Please continue to monitor for S/S of dizziness/vertigo, anticholinergic side effects (BEERs), dementia/delirium (BEERs). 7. Hyperlipidemia: atorvastatin 20mg PO QHS. Please consider ordering a lipid panel if clinically appropriate as there is no panel in the chart. Thanks. Please continue to monitor LFTs (last 12/07/24) and muscle pain. 8. Hypothyroidism: levothyroxine 112mcg PO daily and liothyronine 5mcg PO daily. Please continue to monitor TSH (last 12/07/24) and S/S of hypo/hyperthyroidism. 9. Allergic rhinitis: loratadine 10mg PO daily and ipratropium nasal spray 0.06% 1 spray nasal BID. Please continue to monitor for S/S of allergies, renal function and nasal irritation. 10. Vitamin B12 deficiency: cyanocobalamin 1000mcg IM monthly. Please consider ordering a B12 level as there is no level in the chart. Thanks. 11. Skin irritation/tinea corporis: Calmoseptine topical bid Nystatin powder topical bid. Please continue to monitor. Assessment/Plan for indications treated with psychotropic medications: 1. Depression: sertraline 100mg PO daily. Please see physician note regarding GDR. Please continue to monitor for suicidal ideation (black box warning), sodium (last 122mmol/L 12/11/24, please see physician note regarding hyponatremia), GI side effects. Medical chart and medication regimen reviewed. The following medication irregularities or issues were identified: 1. Atorvastatin 20mg PO QHS. Please consider ordering a lipid panel if clinically appropriate as there is no panel in the chart. Thanks. 2. Cyanocobalamin 1000mcg IM monthly. Please consider ordering a B12 level as there is no level in the chart. Thanks. Date Date of Note: 12/12/24 Documented by User: Dr. Juan Diego Marks MD 12/12/24 07:59 TCU RX Drug Regimen Review Provider Comments Provider responsibility Provider Comments to Recommendations by Pharmacy Agree
[2024-12-12 07:58] LABS: Anion Gap 11 (5-15); BUN 41 mg/dL (4-19); BUN/Creat Ratio 29.5 RATIO (10-20); Calcium,Total 9.2 mg/dL (7.6-11.0); Carbon Dioxide 20.4 mmol/L (21.0-32.0); Chloride 97 mmol/L (98-108); Creatinine, Serum 1.39 mg/dL (0.70-1.20); EST Glomerular Filtration Rate 38 (>60); Estimated Creatinine Clearance 35.39 ml/min (50-250); Glucose 99 mg/dL (70-99); Potassium 4.9 mmol/L (3.3-5.1); Sodium Level 128 mmol/L (133-145)
--- NOTE | 2024-12-12 09:56 | NURSING ---
Addendum entered by Juana Briscoe 12/12/24 13:36: Call from Cristy at the office, verbal orders to do xrays weekly starting on 12/22/24. After xrays updated office so physician can review. Addendum entered by Juana Briscoe 12/12/24 12:21: Received faxed xray orders from Dr. Dozier. Original Note: Called [facility] and spoke with Cristy, asked about doing follow-up xrays here on TCU, resident is using halie lift for transfers. Dr. Dozier's note mentioned doing weekly xrays. She will check and call back.
[2024-12-12 10:05] VITALS: BP 127/53; PULSE 56; RESP 16; TEMP 36.1; O2SAT 94
[2024-12-12] MEDS: Aspirin E.C. 81 MG Tablet PO ×2 (10:08→21:46)
[2024-12-12] MEDS: Sertraline 100 MG Tablet PO (10:08)
[2024-12-12] MEDS: Liothyronine 5 MCG Tablet PO (10:08)
[2024-12-12] MEDS: Loratadine 10 MG Tablet PO (10:08)
[2024-12-12] MEDS: Polyethylene Glycol 3350 17 GM PACKET PO (10:08)
[2024-12-12] MEDS: Ipratropium Bromide 0.06% NASAL SPRAY 1 SPRAY NASAL ×2 (10:08→21:46)
[2024-12-12] MEDS: Senna/Docusate Sodium 1 Tablet 2 TABLET PO ×2 (10:08→21:46)
[2024-12-12] MEDS: Carvedilol 3.125 MG TABLET PO ×2 (10:08→16:10)
[2024-12-12] MEDS: Nystatin Powder 15gm Bottle 1 APPLIC TOPICAL ×2 (10:09→21:49)
[2024-12-12] MEDS: Tuberculin,Purif.prot.deriv. 50 TU/ML Vial 0.1 ML ID (10:16)
[2024-12-12] MEDS: 0.9% Saline Lock 10 ML Syringe IV (10:19)
--- NOTE | 2024-12-12 11:09 | NURSING ---
Technical Business Systems Analyst Note; Activity Asset: Santi Hayden has been on TCU in the past and is independent in her choice of daily activities. Her visits daily and brings her items from home. She has her smartphone, word puzzles book, watches tv, reads and enjoys the puzzles in the newspaper. She welcomes visits from the hotel or motel manager and therapy dog when available. Staff will encourage social activities, remind her of weekly activities and respect her right to say no.
--- NOTE | 2024-12-12 11:20 | NURSING ---
Professional Fighter Note; Activity Asset: Santi Almonte has been a resident w/TCU in the past. She Continues to be in dependent in her choice of daily activities. She has a difficult time reading right now due to her headaches. At tis time she will listen to the tv and rest. She welcomes visits from the bar welder and therapy dog when available. Staff will remind her of weekly activities and respect her right to say no.
[2024-12-12 12:19] VITALS: RESP 16; O2SAT 96
--- NOTE | 2024-12-12 12:19 | CASEMGMT ---
Social Work SW met with patient to complete initial assessment. Pt known to this worker from previous stay. Verified contacts. Patient confirmed her wish to be DNR-CCA, no intubation. Educated to Medicare benefit and copay coverage. Pt immediately expressed she cannot return home alone, and that son told her this was it. SW explored alternative options. Pt originally looking into [facility]. SW educated pt is currently a halie lift and typically ALs cannot accept halie lifts. Likely pt may be more appropriate for SNF. However, final recommendations will be made closer to DC after therapy, and AL will make the final decision on appropriateness. Pt expressed understanding and prefers [facility] if a SNF is needed. SW educated to [facility] having a SNF and AL, if care varies. SW educated to both being an OOP cost and inquired about finances. Pt confirmed she has no assets but financial resources to pay OOP for quite some time. SW confirmed pt will not need ORAL initially. SW will continue to follow and assist with DC planning. Lary Isabel SALESPERSON HOSIERY PERMANENT WAVER
[2024-12-12] MEDS: Magnesium Citrate 300 ML PO (13:12)
[2024-12-12] MEDS: Acetaminophen 500 MG Tablet 1000 MG PO ×3 (13:30→21:46)
--- NOTE | 2024-12-12 13:49 | CHAPLAIN ---
Type of Pastoral Visit ___ Initial Visit _x__ Follow-up Visit ___ On-call Visit ___ General Patient Visit ___ Spiritual Assessment ___ Family Conference ___ Bereavement ___ Rapid Response ___ Code Blue ___ Other (describe below) Pastoral Care Referral From _x__ Patient ___ Family ___ Nurse ___ Physician ___ Bunghole Borer ___ Global Marketing Coordinator ___ Other (describe below) Sacrament/Intervention _x__ Active listening ___ Anointing ___ Rastafarian ___ Bereavement ___ Communion ___ Soco exploration ___ _x__ Life review _x__ Prayer ___ Reconciliation ___ Sacrament of Sick _x__ Supportive presence ___ Wedding ___ Other (describe below) Pastoral Comments patient is welcoming and talkative; pt explains her situation now that she is in the TCU; pt was seen earlier this week in PCU and thus background story is known; pt acknowledges that she had hallucinations which were disturbing to her but now understood; pt accepts reality that she will need to stay in TCU longer than she would like because of her debility now; pt has soco in God for her support but speaks of having a hard time right now being able to pray for herself; this art teacher offered a prayer for her; pt would like more visits when possible
[2024-12-12] MEDS: Menthol/Lanolin/Calamine/Znox 113 GM Tube 1 APPLIC TOPICAL (16:10)
--- NOTE | 2024-12-12 16:21 | NURSING ---
Addendum entered by Eleonora Osborne 12/12/24 19:23: administered SSE x1 per DR crocker order. pt tolerated well Original Note: pt was admitted yesterday from PCU with constipation. pt states she had not had BM since last Sunday, mag citrate given last evening, no results. mag citrate given today, pt called out for pain med, offered bedpan and to check pt attends noted liquid stool. pt placed on bedpan, awaiting to see if pt able to go. Pt is difficult to understand, pt forgetful, word finding difficulty & jumps from one topic to another making it very difficult to determine what she is referring to.
[2024-12-12] MEDS: MELATONIN 3 MG TABLET PO (21:46)
[2024-12-12] MEDS: Atorvastatin Calcium 20 MG Tablet PO (21:46)
[2024-12-13] MEDS: oxyCODONE 5 MG Tablet PO ×2 (01:19→20:54)
[2024-12-13] MEDS: Meclizine HCl 25 MG Tablet PO ×3 (05:33→20:46)
[2024-12-13] MEDS: Sodium Chloride 1 GM Tablet 2 GM PO ×3 (05:33→20:49)
[2024-12-13] MEDS: Acetaminophen 500 MG Tablet 1000 MG PO ×3 (05:33→20:50)
[2024-12-13] MEDS: Levothyroxine 112 MCG Tablet PO (05:33)
[2024-12-13] MEDS: Menthol/Lanolin/Calamine/Znox 113 GM Tube 1 APPLIC TOPICAL ×2 (05:37→17:22)
[2024-12-13 07:51] LABS: Cholesterol 124 mg/dL (<=200); High Density Lipoprotein 60 mg/dL; Low Density Lipoprotein Calc. 47 mg/dL; Triglycerides 85 mg/dL; Very Low Density Lipoprotein 17 mg/dL (5-40); Vitamin B12 645 pg/mL (180-914); cholesterol:hdl ratio screen 2.08
[2024-12-13 08:30] VITALS: BP 126/65; PULSE 62; RESP 18; TEMP 36.3; O2SAT 96
[2024-12-13] MEDS: Aspirin E.C. 81 MG Tablet PO ×2 (08:30→20:47)
[2024-12-13] MEDS: Carvedilol 3.125 MG TABLET PO ×2 (08:30→17:22)
[2024-12-13] MEDS: Liothyronine 5 MCG Tablet PO (08:30)
[2024-12-13] MEDS: Ipratropium Bromide 0.06% NASAL SPRAY 1 SPRAY NASAL ×2 (08:30→20:44)
[2024-12-13] MEDS: Loratadine 10 MG Tablet PO (08:30)
[2024-12-13] MEDS: Senna/Docusate Sodium 1 Tablet 2 TABLET PO ×2 (08:31→20:48)
[2024-12-13] MEDS: Polyethylene Glycol 3350 17 GM PACKET PO (08:31)
[2024-12-13] MEDS: Sertraline 100 MG Tablet PO (08:31)
[2024-12-13] MEDS: Nystatin Powder 15gm Bottle 1 APPLIC TOPICAL ×2 (08:31→20:51)
[2024-12-13 20:00] VITALS: PULSE 62; O2SAT 95
[2024-12-13] MEDS: Atorvastatin Calcium 20 MG Tablet PO (20:47)
[2024-12-13] MEDS: MELATONIN 3 MG TABLET PO (20:48)
[2024-12-13] MEDS: 0.9% Saline Lock 10 ML Syringe IV (20:52)
[2024-12-14] MEDS: oxyCODONE 5 MG Tablet PO ×3 (03:13→17:20)
[2024-12-14] MEDS: Menthol/Lanolin/Calamine/Znox 113 GM Tube 1 APPLIC TOPICAL ×2 (05:44→16:41)
[2024-12-14] MEDS: Sodium Chloride 1 GM Tablet 2 GM PO ×3 (05:44→21:01)
[2024-12-14] MEDS: Levothyroxine 112 MCG Tablet PO (05:44)
[2024-12-14] MEDS: Meclizine HCl 25 MG Tablet PO ×3 (05:44→20:57)
[2024-12-14] MEDS: Acetaminophen 500 MG Tablet 1000 MG PO ×3 (05:45→21:01)
[2024-12-14 06:39] VITALS: PULSE 60; O2SAT 98
[2024-12-14 08:30] VITALS: BP 143/61; PULSE 60; RESP 16; TEMP 36.2; O2SAT 95
[2024-12-14] MEDS: Mag Hydrox/Al Hydrox/Simeth 30 ML UDC 15 ML PO (08:30)
[2024-12-14] MEDS: Ipratropium Bromide 0.06% NASAL SPRAY 1 SPRAY NASAL ×2 (08:30→20:55)
[2024-12-14] MEDS: Sertraline 100 MG Tablet PO (08:31)
[2024-12-14] MEDS: Liothyronine 5 MCG Tablet PO (08:31)
[2024-12-14] MEDS: Polyethylene Glycol 3350 17 GM PACKET PO (08:31)
[2024-12-14] MEDS: Loratadine 10 MG Tablet PO (08:31)
[2024-12-14] MEDS: Nystatin Powder 15gm Bottle 1 APPLIC TOPICAL ×2 (08:31→21:00)
[2024-12-14] MEDS: Aspirin E.C. 81 MG Tablet PO ×2 (08:31→20:58)
[2024-12-14] MEDS: Senna/Docusate Sodium 1 Tablet 2 TABLET PO ×2 (08:31→21:00)
[2024-12-14] MEDS: Carvedilol 3.125 MG TABLET PO ×2 (08:32→16:41)
--- NOTE | 2024-12-14 10:19 | NURSING ---
Pt. very anxious and worrisome, Dr. Marks notified N.O. for Ativan 0.5mg q4hr PRN.
[2024-12-14] MEDS: LORazepam 0.5 MG Tablet PO ×2 (10:38→17:20)
--- NOTE | 2024-12-14 13:29 | NURSING ---
Pt requested something to help with muscle spasms to right lower extremity and something to help with sleep. Dr. Marks updated N.O. for Baclofen 10mg TID PRN and Increase melatonin to 10mg qhs. Order read back.
[2024-12-14] MEDS: MELATONIN 10 MG TABLET PO (20:59)
[2024-12-14] MEDS: 0.9% Saline Lock 10 ML Syringe IV (21:04)
[2024-12-14] MEDS: Atorvastatin Calcium 20 MG Tablet PO (21:04)
[2024-12-14] MEDS: Baclofen 10 MG Tablet PO (21:05)
[2024-12-15] MEDS: oxyCODONE 5 MG Tablet PO ×3 (02:41→21:54)
[2024-12-15] MEDS: Menthol/Lanolin/Calamine/Znox 113 GM Tube 1 APPLIC TOPICAL ×2 (05:27→17:33)
[2024-12-15] MEDS: Sodium Chloride 1 GM Tablet 2 GM PO ×3 (05:28→20:27)
[2024-12-15] MEDS: Meclizine HCl 25 MG Tablet PO ×3 (05:28→20:27)
[2024-12-15] MEDS: Levothyroxine 112 MCG Tablet PO (05:29)
[2024-12-15] MEDS: Acetaminophen 500 MG Tablet 1000 MG PO ×3 (05:30→20:27)
--- NOTE | 2024-12-15 08:31 | NURSING ---
Offered covid vaccine, VIS provided. Resident declines.
[2024-12-15 09:26] VITALS: BP 141/64; PULSE 60; RESP 16; TEMP 35.4; O2SAT 99
[2024-12-15] MEDS: Mag Hydrox/Al Hydrox/Simeth 30 ML UDC 15 ML PO (09:30)
[2024-12-15] MEDS: Ipratropium Bromide 0.06% NASAL SPRAY 1 SPRAY NASAL ×2 (09:31→20:25)
[2024-12-15] MEDS: Carvedilol 3.125 MG TABLET PO ×2 (09:31→17:33)
[2024-12-15] MEDS: Sertraline 100 MG Tablet PO (09:32)
[2024-12-15] MEDS: Liothyronine 5 MCG Tablet PO (09:32)
[2024-12-15] MEDS: Loratadine 10 MG Tablet PO (09:32)
[2024-12-15] MEDS: Senna/Docusate Sodium 1 Tablet 2 TABLET PO ×2 (09:32→20:27)
[2024-12-15] MEDS: Aspirin E.C. 81 MG Tablet PO ×2 (09:32→20:27)
[2024-12-15] MEDS: Polyethylene Glycol 3350 17 GM PACKET PO (09:33)
[2024-12-15] MEDS: Nystatin Powder 15gm Bottle 1 APPLIC TOPICAL ×2 (09:36→20:25)
[2024-12-15] MEDS: Baclofen 10 MG Tablet PO (12:31)
[2024-12-15] MEDS: 0.9% Saline Lock 10 ML Syringe IV (15:39)
[2024-12-15 17:35] VITALS: BP 143/57; PULSE 59
[2024-12-15 20:15] VITALS: PULSE 65; O2SAT 99
[2024-12-15] MEDS: MELATONIN 10 MG TABLET PO (20:26)
[2024-12-15] MEDS: Atorvastatin Calcium 20 MG Tablet PO (20:27)
[2024-12-16] MEDS: Baclofen 10 MG Tablet PO ×2 (00:43→15:56)
[2024-12-16 00:47] VITALS: PULSE 68
[2024-12-16] MEDS: oxyCODONE 5 MG Tablet PO (03:59)
[2024-12-16] MEDS: Meclizine HCl 25 MG Tablet PO ×3 (06:27→19:46)
[2024-12-16] MEDS: Levothyroxine 112 MCG Tablet PO (06:27)
[2024-12-16] MEDS: Acetaminophen 500 MG Tablet 1000 MG PO ×3 (06:27→19:47)
[2024-12-16] MEDS: Sodium Chloride 1 GM Tablet 2 GM PO ×3 (06:27→19:47)
[2024-12-16] MEDS: Menthol/Lanolin/Calamine/Znox 113 GM Tube 1 APPLIC TOPICAL ×2 (06:28→17:31)
[2024-12-16 07:47] VITALS: O2SAT 97
[2024-12-16] MEDS: Ipratropium Bromide 0.06% NASAL SPRAY 1 SPRAY NASAL ×2 (08:39→19:46)
[2024-12-16] MEDS: Carvedilol 3.125 MG TABLET PO ×2 (08:39→17:32)
[2024-12-16] MEDS: Loratadine 10 MG Tablet PO (08:39)
[2024-12-16] MEDS: Liothyronine 5 MCG Tablet PO (08:40)
[2024-12-16] MEDS: Aspirin E.C. 81 MG Tablet PO ×2 (08:40→19:46)
[2024-12-16] MEDS: Senna/Docusate Sodium 1 Tablet 2 TABLET PO ×2 (08:41→19:46)
[2024-12-16] MEDS: Nystatin Powder 15gm Bottle 1 APPLIC TOPICAL ×2 (08:41→20:04)
[2024-12-16] MEDS: Polyethylene Glycol 3350 17 GM PACKET PO (08:41)
[2024-12-16] MEDS: Sertraline 100 MG Tablet PO (08:41)
[2024-12-16 08:49] VITALS: BP 135/63; PULSE 71; RESP 18; TEMP 36.7; O2SAT 99
[2024-12-16 11:07] VITALS: BMI 30.2
[2024-12-16] MEDS: Magnesium Citrate 300 ML PO (14:49)
--- NOTE | 2024-12-16 14:52 | NURSING ---
PT HASN'T HAD A BM IN 3 DAYS. PRN MAG CITRATE GIVEN. WILL CONTINUE TO MONITOR.
[2024-12-16 17:36] VITALS: BP 127/64; PULSE 68
[2024-12-16] MEDS: Atorvastatin Calcium 20 MG Tablet PO (19:46)
[2024-12-16] MEDS: MELATONIN 10 MG TABLET PO (19:46)
[2024-12-16] MEDS: LORazepam 0.5 MG Tablet PO (19:50)
[2024-12-17] MEDS: LORazepam 0.5 MG Tablet PO ×3 (00:23→21:03)
[2024-12-17] MEDS: Baclofen 10 MG Tablet PO (00:24)
[2024-12-17] MEDS: oxyCODONE 5 MG Tablet PO ×3 (00:24→17:42)
[2024-12-17] MEDS: Menthol/Lanolin/Calamine/Znox 113 GM Tube 1 APPLIC TOPICAL ×2 (05:30→17:44)
[2024-12-17] MEDS: Sodium Chloride 1 GM Tablet 2 GM PO ×3 (05:31→21:04)
[2024-12-17] MEDS: Meclizine HCl 25 MG Tablet PO ×3 (05:31→21:04)
[2024-12-17] MEDS: Acetaminophen 500 MG Tablet 1000 MG PO ×3 (05:32→21:01)
[2024-12-17] MEDS: Levothyroxine 112 MCG Tablet PO (05:32)
[2024-12-17] MEDS: Mag Hydrox/Al Hydrox/Simeth 30 ML UDC 15 ML PO (05:40)
--- NOTE | 2024-12-17 07:45 | RAD_ITS ---
EXAM: Three-view supine abdomen CLINICAL HISTORY: Constipation. COMPARISON: Chest x-ray of 12/06/2024. TECHNIQUE: Three-view supine abdomen RAD/Abdomen Single View IMPRESSION: No excess stool burden is seen. No small bowel dilation is noted. Mass effect from the pelvis is seen, possibly representing a distended urinary bladder or other process. Recommend clinical and historical correlation. Prominent degenerative changes of the spine are noted. Cuka-owjealt-gqtn-right sacroiliac joint degenerative changes are noted, with asymmetric left-sided iliac bone sclerotic response. A calcified right pelvic process is most consistent with a calcified uterine fi broid. Reading Location: [id number]
[2024-12-17 07:47] VITALS: O2SAT 95
[2024-12-17] MEDS: Ipratropium Bromide 0.06% NASAL SPRAY 1 SPRAY NASAL ×2 (08:14→21:04)
[2024-12-17] MEDS: Polyethylene Glycol 3350 17 GM PACKET PO (08:15)
[2024-12-17] MEDS: Carvedilol 3.125 MG TABLET PO ×2 (08:16→17:42)
[2024-12-17] MEDS: Liothyronine 5 MCG Tablet PO (08:16)
[2024-12-17] MEDS: Loratadine 10 MG Tablet PO (08:16)
[2024-12-17] MEDS: Aspirin E.C. 81 MG Tablet PO ×2 (08:17→21:01)
[2024-12-17] MEDS: Senna/Docusate Sodium 1 Tablet 2 TABLET PO ×2 (08:17→21:03)
[2024-12-17] MEDS: Nystatin Powder 15gm Bottle 1 APPLIC TOPICAL ×2 (08:17→21:03)
[2024-12-17] MEDS: Sertraline 100 MG Tablet PO (08:18)
[2024-12-17 08:28] VITALS: BP 177/79; PULSE 75; RESP 16; TEMP 36.3; O2SAT 97
[2024-12-17 09:54] LABS: Anion Gap 11 (5-15); BUN 34 mg/dL (4-19); Calcium,Total 8.8 mg/dL (7.6-11.0); Chloride 103 mmol/L (98-108); Creatinine, Serum 0.67 mg/dL (0.70-1.20); EST Glomerular Filtration Rate 88 (>60); Estimated Creatinine Clearance 60.58 ml/min (50-250); Glucose 210 mg/dL (70-99); Potassium 4.5 mmol/L (3.3-5.1); Sodium Level 132 mmol/L (133-145)
--- NOTE | 2024-12-17 11:43 | NURSING ---
KUB RESULTS BACK PER ORDER FROM DR. DIAZ DUE TO NO BM IN 4 DAYS AND SSE. RESULTS BACK, NO EXCESS STOOL BURDEN SEEN BUT A DISTENDED URINARY BLADDER. BLADDER SCANNED PT FOR 2311, STRAIGHT CATHED FOR 2449. NOTIFIED BY RADHA. NEW ORDER FOR BLADDER SCANS AND SEND UA/CULTURE SAMPLE DUE TO CONFUSION/STRONG SMELLING URINE. RN AWARE
[2024-12-17 11:46] LABS: Mucous, Urine 0 SEEN /hpf (<or=2+); Squamous Epithelial Cells - UA 0 SEEN /hpf (5-10)
--- NOTE | 2024-12-17 11:57 | MDS.RN ---
Written communication to Dr. Marks for the following: Family asking if Pedialyte can be added to water. Family reporting resident vertigo/double vision worse and son states he as MRI brain results if Dr. Marks would like to see them.
[2024-12-17 11:59] LABS: Color, Urine Yellow (Yellow); Glucose, Dipstick 50 mg/dl (Normal); Ketone-Dipstick Negative (Negative); Leukocyte Esterase-Dipstick 25 /ul (Negative); Nitrite-Dipstick Negative (Negative); Occult Blood-Urine Negative /ul (Negative); Protein-Dipstick 30 mg/dl (Negative); Urine Bilirubin Dipstick Negative (Negative); Urine Clarity Clear (Clear); Urine Urobilinogen Normal (Normal)
[2024-12-17 12:28] LABS: Bacteria 1+ /hpf (None Seen)
[2024-12-17 12:29] LABS: Red Blood Cells-Urine 0 SEEN /hpf (0-5); White Blood Cells 0-5 SEEN /hpf (0-5)
[2024-12-17] MEDS: cycloBENZAPRine HCl 5 MG TABLET PO ×2 (14:01→21:03)
--- NOTE | 2024-12-17 14:55 | CASEMGMT ---
Social Work IDT met with dtr, LUCIA, tung outside room, and son and dtr participated by phone, for care plan meeting. Pt unavailable to participate in meeting. Discussed patient's progress in PT/OT/ST/SN. Educated to Medicare benefit. Provided pt/family with written communication of insurance process and copay coverage during stay. Family collectively very involved in pt's care and is close-knit. Family very knowledgeable in the healthcare field. Dtr Ayesha, was the main spokesperson, and provided insight that coincided with IDTs observations and reports of pt's mood and progress during stay thus far. Dtr explained pt is very fearful, anxious, hallucinating, disoriented, needs encouragement and support to help her not feel alone. IDT confirmed and will all assist. Suggested for pt to sit in the central lounge for socialization and dining room for meals. Family agreed, as getting out of her room helps to reorient the pt. Dtr shared that the pt felt like she was abducted because voices were muffled with staff being in the hallway and her being in her room. Social Work to complete PHQ-9 with pt today and explore further. Pt is medically complex currently and the vertigo is a major barrier with therapy progress. SW explained pt identified at admission that she cannot return home and will need AL or SNF. Family relieved as they were going to voice this as well. SW explained currently, pt would likely be too high LOC for AL and need to initially admit to a SNF, but could admit to a SNF that also has an AL. Family liked that idea. SW offered to provide lists of options. Family agreed. No DC date is known, but this worker will make referrals once family has made a decision of preferences. SW provided list of SNFs in preferred geographical area, INN with pt?s insurance, including quality and resource data via CarePort Guide. Educated to Medicare.gov/nursinghomecompare and the use of resources on that site. Provided list of ALs and noted the ones associated with a SNF. Family appreciative. SW will continue to follow for DC planning assistance and support. Lary Isabel FLIGHT OPERATIONS ENGINEER BARKEEPER
--- NOTE | 2024-12-17 14:58 | CASEMGMT ---
Addendum entered by Lary Isabel 12/19/24 12:44: Correction to PHQ-9 score (). the score was calculatedly incorrectly. MDS reflects accurate answers and scoring. Original Note: Social Work- SW met with pt to complete BIMS. Pt scored 13/15 on BIMS. Pt scored 8 on PHQ9, reporting that she does not feel connected and often feels isolated. Pt reports feeling hopeless, stating i need to feel like there's a purpose......that it will be okay eventually, but it doesn't quit. Pt reports that she can't see this is worth it and wondered if she could just cut it off referring to her leg. SW provided active and empathetic listening. SW provided education on coping skills including breathing, reframing thoughts, thought stopping, distractions, utilizing things pt enjoys, etc. SW attempted to engage pt is solution-focused discussion, however, pt was unable to problem-solve solutions instead focusing on her desire for water. Pt reports that if she could have water, that would make things better. Pt lunch came and pt thoughts improved, focusing instead on eating. Pt to have team meeting this afternoon and pt needs will be discussed again at that time. SW remains available to follow. RUSS Foster
--- NOTE | 2024-12-17 16:29 | NURSING ---
SOAP DANA ENEMA GIVEN PER ORDER AT 1600. NO RESULTS AT THIS TIME . PT TOOK ALL THE FLUID AND TOLERATED WELL.
[2024-12-17 17:30] VITALS: BP 165/83; PULSE 77; O2SAT 97
[2024-12-17] MEDS: Atorvastatin Calcium 20 MG Tablet PO (21:01)
[2024-12-17] MEDS: MELATONIN 10 MG TABLET PO (21:04)
[2024-12-18] MEDS: oxyCODONE 5 MG Tablet PO ×4 (00:56→23:49)
[2024-12-18 04:00] VITALS: RESP 18
--- NOTE | 2024-12-18 04:18 | NURSING ---
0350 VASQUEZ CATHETER PLACED AT THIS TIME D/T RETENTION. BLADDER SCAN WAS 360, AND THERE WAS A RETURN OF 350CC OF CLOUDY PALE YELLOW URINE. PT TOLERATED POORLY D/T EXCORIATION TO HER INNER LABIA. THIS WAS THE THIRD BLADDER SCAN
[2024-12-18] MEDS: Meclizine HCl 25 MG Tablet PO ×3 (05:02→22:15)
[2024-12-18] MEDS: Menthol/Lanolin/Calamine/Znox 113 GM Tube 1 APPLIC TOPICAL ×2 (05:03→16:12)
[2024-12-18] MEDS: Acetaminophen 500 MG Tablet 1000 MG PO ×3 (05:03→22:14)
[2024-12-18] MEDS: Sodium Chloride 1 GM Tablet 2 GM PO ×3 (05:03→22:15)
[2024-12-18] MEDS: Levothyroxine 112 MCG Tablet PO (05:03)
[2024-12-18 07:50] VITALS: O2SAT 95
[2024-12-18 09:53] VITALS: BP 116/52; RESP 17; TEMP 36.3; O2SAT 100
[2024-12-18] MEDS: Carvedilol 3.125 MG TABLET PO ×2 (09:58→16:13)
[2024-12-18] MEDS: Loratadine 10 MG Tablet PO (09:58)
[2024-12-18] MEDS: Liothyronine 5 MCG Tablet PO (09:58)
[2024-12-18] MEDS: Senna/Docusate Sodium 1 Tablet 2 TABLET PO ×2 (09:59→22:14)
[2024-12-18] MEDS: Sertraline 100 MG Tablet PO (09:59)
[2024-12-18] MEDS: Polyethylene Glycol 3350 17 GM PACKET PO (09:59)
[2024-12-18] MEDS: Aspirin E.C. 81 MG Tablet PO ×2 (10:00→22:15)
[2024-12-18] MEDS: Nystatin Powder 15gm Bottle 1 APPLIC TOPICAL ×2 (10:02→22:17)
[2024-12-18] MEDS: Cyanocobalamin (B12) 1,000 MCG/ML Vial 1000 MCG IM (14:20)
[2024-12-18] MEDS: Tamsulosin HCl 0.4 MG Capsule PO (16:14)
[2024-12-18] MEDS: MELATONIN 10 MG TABLET PO (22:14)
[2024-12-18] MEDS: Atorvastatin Calcium 20 MG Tablet PO (22:14)
[2024-12-18] MEDS: cycloBENZAPRine HCl 5 MG TABLET PO (22:15)
[2024-12-18] MEDS: LORazepam 0.5 MG Tablet PO (22:15)
[2024-12-18] MEDS: Ipratropium Bromide 0.06% NASAL SPRAY 1 SPRAY NASAL (22:16)
[2024-12-19 05:00] VITALS: BP 158/87; PULSE 71; RESP 17; TEMP 36.1
[2024-12-19 06:11] LABS: Absolute Lymphocyte Count 1.24 X10^3/uL (0.83-4.51); Absolute Neutrophil Count 4.1 X10^3/uL (2.0-7.7); Basophil# 0.03 X10^3/uL; Basophil% 0.5 % (0-1); Eosinophil# 0.29 X10^3/uL; Eosinophils% 4.7 % (0-5); Hematocrit 28.5 % (37-47); Hemoglobin 9.5 g/dL (12.0-15.0); Lymphocyte # 1.24 X10^3/ul (0.83-4.51); Lymphocyte % 20.3 % (19-41); Mean Corp Hgb Conc 33.3 g/dL (32-36); Mean Corpuscular Hgb 29.8 pg (27.0-32.0); Mean Corpuscular Volume 89.3 fL (81-99); Mean Platelet Vol. 9.4 fl (6.2-12.0); Monocyte# 0.43 X10^3/uL; NRBC Flagged by Analyzer 0 % (0-5); Neutrophil # 4.08 X10^3/uL (2.7-7.7); Neutrophil % 66.8 % (47-70); Platelet Count 287 K/mm3 (150-450); RBC Distribution Width CV 13.2 % (11.6-14.6); RBC Distribution Width SD 43.5 fl (35.1-43.9); Red Blood Count 3.19 M/mm3 (4.2-5.4); White Blood Count 6.1 K/mm3 (4.4-11.0)
[2024-12-19] MEDS: oxyCODONE 5 MG Tablet PO ×2 (06:29→22:20)
[2024-12-19] MEDS: Meclizine HCl 25 MG Tablet PO ×3 (06:29→22:15)
[2024-12-19] MEDS: Levothyroxine 112 MCG Tablet PO (06:29)
[2024-12-19] MEDS: Menthol/Lanolin/Calamine/Znox 113 GM Tube 1 APPLIC TOPICAL ×2 (06:30→18:15)
[2024-12-19] MEDS: Acetaminophen 500 MG Tablet 1000 MG PO ×3 (06:30→22:16)
[2024-12-19] MEDS: Sodium Chloride 1 GM Tablet 2 GM PO ×3 (06:30→22:16)
[2024-12-19 07:14] LABS: Anion Gap 7 (5-15); BUN 17 mg/dL (4-19); BUN/Creat Ratio 26.6 RATIO (10-20); Calcium,Total 8.4 mg/dL (7.6-11.0); Carbon Dioxide 26.1 mmol/L (21.0-32.0); Chloride 101 mmol/L (98-108); Creatinine, Serum 0.65 mg/dL (0.70-1.20); EST Glomerular Filtration Rate 88 (>60); Estimated Creatinine Clearance 60.58 ml/min (50-250); Glucose 94 mg/dL (70-99); Potassium 4.2 mmol/L (3.3-5.1); Sodium Level 134 mmol/L (133-145)
--- NOTE | 2024-12-19 08:40 | NURSING ---
Weight Reducing Technician Note; MDS for 12/18/2024 Complete
[2024-12-19] MEDS: Ipratropium Bromide 0.06% NASAL SPRAY 1 SPRAY NASAL ×2 (09:35→22:14)
[2024-12-19] MEDS: Carvedilol 3.125 MG TABLET PO ×2 (09:36→18:16)
[2024-12-19] MEDS: Loratadine 10 MG Tablet PO (09:37)
[2024-12-19] MEDS: Liothyronine 5 MCG Tablet PO (09:37)
[2024-12-19] MEDS: Nystatin Powder 15gm Bottle 1 APPLIC TOPICAL ×2 (09:38→22:13)
[2024-12-19] MEDS: Polyethylene Glycol 3350 17 GM PACKET PO (09:38)
[2024-12-19] MEDS: Aspirin E.C. 81 MG Tablet PO ×2 (09:38→22:16)
[2024-12-19] MEDS: Sertraline 100 MG Tablet PO (09:38)
[2024-12-19] MEDS: Senna/Docusate Sodium 1 Tablet 2 TABLET PO ×2 (09:38→22:16)
[2024-12-19 09:51] VITALS: BP 131/60; PULSE 63; RESP 16; TEMP 36.7; O2SAT 96
[2024-12-19] MEDS: Tuberculin,Purif.prot.deriv. 50 TU/ML Vial 0.1 ML ID (10:36)
[2024-12-19] MEDS: Mag Hydrox/Al Hydrox/Simeth 30 ML UDC 15 ML PO (12:18)
[2024-12-19 12:20] VITALS: BP 154/69; PULSE 72; RESP 24; TEMP 36.4; O2SAT 96
--- NOTE | 2024-12-19 12:22 | EKG12_ITS ---
Test Reason : CHEST PAIN Blood Pressure : */* mmHG Vent. Rate : 67 BPM Atrial Rate : 67 BPM P-R Int : 164 ms QRS Dur : 86 ms QT Int : 438 ms P-R-T Axes : * -48 -61 degrees QTcB Int : 462 ms Sinus rhythm with occasional Premature ventricular complexes Left axis deviation Artifact Abnormal ECG When compared with ECG of 06-Dec-2024 17:49, ST more depressed Inferior leads ST no longer depressed in Lateral leads T wave inversion now evident in Inferior leads Confirmed by SASHA MARCH ([id number]), industrial editor KEV WOLF ([id number]) on 01/24/2025 7:16:23 AM Referred By: Juan Diego Marks Confirmed By: SASHA MARCH
--- NOTE | 2024-12-19 13:02 | NURSING ---
Resident complaining of really bad pain/burning to epigastric area and across chest. She said it started after eating some of her lunch and she does get heart burn but this feels different. Mylanta given, EKG ordered, VSS. She also says she feels like her bowels need to move. About 10 minutes later she reports mylanta helped, burning very minimal. EKG completed and Dr. Marks was on unit at that time and reviewed. No new orders.
[2024-12-19] MEDS: LORazepam 0.5 MG Tablet PO (14:17)
[2024-12-19] MEDS: Tamsulosin HCl 0.4 MG Capsule PO (18:16)
[2024-12-19 21:10] VITALS: RESP 17
[2024-12-19] MEDS: cycloBENZAPRine HCl 5 MG TABLET PO (22:16)
[2024-12-19] MEDS: MELATONIN 10 MG TABLET PO (22:16)
[2024-12-19] MEDS: Atorvastatin Calcium 20 MG Tablet PO (22:16)
[2024-12-20] MEDS: cycloBENZAPRine HCl 5 MG TABLET PO ×2 (01:23→20:10)
[2024-12-20] MEDS: Sodium Chloride 1 GM Tablet 2 GM PO ×3 (06:07→20:15)
[2024-12-20] MEDS: Acetaminophen 500 MG Tablet 1000 MG PO ×3 (06:07→20:15)
[2024-12-20] MEDS: Menthol/Lanolin/Calamine/Znox 113 GM Tube 1 APPLIC TOPICAL ×2 (06:08→16:48)
[2024-12-20] MEDS: Meclizine HCl 25 MG Tablet PO ×3 (06:08→20:12)
[2024-12-20] MEDS: Levothyroxine 112 MCG Tablet PO (06:08)
[2024-12-20 06:20] VITALS: RESP 18
[2024-12-20 07:36] LABS: Hematocrit 29.5 % (37-47); Hemoglobin 9.8 g/dL (12.0-15.0)
[2024-12-20] MEDS: Sertraline 100 MG Tablet PO (08:36)
[2024-12-20] MEDS: Aspirin E.C. 81 MG Tablet PO ×2 (08:36→20:13)
[2024-12-20] MEDS: Loratadine 10 MG Tablet PO (08:37)
[2024-12-20] MEDS: Polyethylene Glycol 3350 17 GM PACKET PO (08:37)
[2024-12-20] MEDS: Ipratropium Bromide 0.06% NASAL SPRAY 1 SPRAY NASAL ×2 (08:37→20:13)
[2024-12-20] MEDS: Carvedilol 3.125 MG TABLET PO ×2 (08:37→16:47)
[2024-12-20] MEDS: Liothyronine 5 MCG Tablet PO (08:37)
[2024-12-20] MEDS: Senna/Docusate Sodium 1 Tablet 2 TABLET PO ×2 (08:37→20:14)
[2024-12-20] MEDS: Nystatin Powder 15gm Bottle 1 APPLIC TOPICAL ×2 (08:38→20:16)
[2024-12-20 10:47] LABS: Iron 36 ug/dL (50-170); Iron Binding Capacity,Unsat 146 ug/dL (228-428)
[2024-12-20 10:49] VITALS: BP 119/49; PULSE 78; RESP 18; TEMP 36.6; O2SAT 99
[2024-12-20] MEDS: Iron Polysaccharide Complex 150 MG CAPSULE PO (13:30)
[2024-12-20 14:08] VITALS: O2SAT 96
[2024-12-20] MEDS: Tamsulosin HCl 0.4 MG Capsule PO (16:47)
[2024-12-20] MEDS: oxyCODONE 5 MG Tablet PO (20:08)
[2024-12-20] MEDS: Atorvastatin Calcium 20 MG Tablet PO (20:14)
[2024-12-20] MEDS: MELATONIN 10 MG TABLET PO (20:14)
[2024-12-21] MEDS: oxyCODONE 5 MG Tablet PO (02:30)
[2024-12-21] MEDS: cycloBENZAPRine HCl 5 MG TABLET PO ×2 (02:30→20:15)
[2024-12-21] MEDS: Sodium Chloride 1 GM Tablet 2 GM PO ×3 (05:45→20:15)
[2024-12-21] MEDS: Acetaminophen 500 MG Tablet 1000 MG PO ×3 (05:45→20:16)
[2024-12-21] MEDS: Levothyroxine 112 MCG Tablet PO (05:45)
[2024-12-21] MEDS: Meclizine HCl 25 MG Tablet PO ×3 (05:45→20:14)
[2024-12-21] MEDS: Menthol/Lanolin/Calamine/Znox 113 GM Tube 1 APPLIC TOPICAL ×2 (05:45→16:17)
[2024-12-21 08:21] VITALS: O2SAT 94
[2024-12-21] MEDS: Liothyronine 5 MCG Tablet PO (08:28)
[2024-12-21] MEDS: Iron Polysaccharide Complex 150 MG CAPSULE PO (08:28)
[2024-12-21] MEDS: Ipratropium Bromide 0.06% NASAL SPRAY 1 SPRAY NASAL ×2 (08:28→20:14)
[2024-12-21] MEDS: Loratadine 10 MG Tablet PO (08:28)
[2024-12-21] MEDS: Polyethylene Glycol 3350 17 GM PACKET PO (08:28)
[2024-12-21] MEDS: Carvedilol 3.125 MG TABLET PO ×2 (08:28→16:17)
[2024-12-21] MEDS: Aspirin E.C. 81 MG Tablet PO ×2 (08:28→20:14)
[2024-12-21] MEDS: Nystatin Powder 15gm Bottle 1 APPLIC TOPICAL ×2 (08:28→20:16)
[2024-12-21] MEDS: Senna/Docusate Sodium 1 Tablet 2 TABLET PO ×2 (08:29→20:15)
[2024-12-21] MEDS: Sertraline 100 MG Tablet PO (08:29)
[2024-12-21 10:33] VITALS: BP 152/64; PULSE 64; RESP 17; TEMP 36.4; O2SAT 99
[2024-12-21] MEDS: Tamsulosin HCl 0.4 MG Capsule PO (16:17)
[2024-12-21] MEDS: Atorvastatin Calcium 20 MG Tablet PO (20:15)
[2024-12-21] MEDS: MELATONIN 10 MG TABLET PO (20:15)
[2024-12-21] MEDS: LORazepam 0.5 MG Tablet PO (20:18)
[2024-12-22] MEDS: Sodium Chloride 1 GM Tablet 2 GM PO ×3 (06:15→20:25)
[2024-12-22] MEDS: Levothyroxine 112 MCG Tablet PO (06:15)
[2024-12-22] MEDS: Meclizine HCl 25 MG Tablet PO ×3 (06:15→20:23)
[2024-12-22] MEDS: Menthol/Lanolin/Calamine/Znox 113 GM Tube 1 APPLIC TOPICAL ×2 (06:15→16:35)
[2024-12-22] MEDS: Acetaminophen 500 MG Tablet 1000 MG PO ×3 (06:15→20:26)
[2024-12-22 07:00] VITALS: O2SAT 96
[2024-12-22] MEDS: Iron Polysaccharide Complex 150 MG CAPSULE PO (08:08)
[2024-12-22] MEDS: Carvedilol 3.125 MG TABLET PO ×2 (08:08→16:33)
--- NOTE | 2024-12-22 08:20 | RAD_ITS ---
PROCEDURE: KNEE 1 OR 2 VIEWS 12/22/2024 REASON FOR EXAM: FRACTURE OF LEFT PATELLA TECHNIQUE: AP and lateral view(s) of the left knee COMPARISON: Knee radiographs 12/06/2024 FINDINGS: Bones: Complete fracture of the patella is present. New callus formation between the gap of the inferior and superior fracture fragments Joints: Femorotibial joint is intact. The patellar fracture affects alignment at the patellofemoral joint. Effusion: No significant joint effusion. Soft tissues: No detected soft tissue abnormality. Other: RAD/Knee 1 or 2 Views IMPRESSION: Healing patella fracture Reading [facility]
--- NOTE | 2024-12-22 09:04 | NURSING ---
Left VM with Jodi Quinones to have Dr. Dozier updated that xray completed, report and images are in.
[2024-12-22] MEDS: Ipratropium Bromide 0.06% NASAL SPRAY 1 SPRAY NASAL ×2 (09:35→20:21)
[2024-12-22] MEDS: Sertraline 100 MG Tablet PO (09:36)
[2024-12-22] MEDS: Loratadine 10 MG Tablet PO (09:36)
[2024-12-22] MEDS: Senna/Docusate Sodium 1 Tablet 2 TABLET PO ×2 (09:36→20:25)
[2024-12-22] MEDS: Liothyronine 5 MCG Tablet PO (09:36)
[2024-12-22] MEDS: Aspirin E.C. 81 MG Tablet PO ×2 (09:37→20:23)
[2024-12-22] MEDS: Polyethylene Glycol 3350 17 GM PACKET PO (09:38)
[2024-12-22] MEDS: LORazepam 0.5 MG Tablet PO (10:43)
[2024-12-22] MEDS: Nystatin Powder 15gm Bottle 1 APPLIC TOPICAL ×2 (10:45→20:24)
[2024-12-22 16:00] VITALS: BP 150/67; PULSE 73; RESP 18; TEMP 36.3; O2SAT 94
[2024-12-22] MEDS: Tamsulosin HCl 0.4 MG Capsule PO (16:34)
[2024-12-22] MEDS: cycloBENZAPRine HCl 5 MG TABLET PO (20:24)
[2024-12-22] MEDS: MELATONIN 10 MG TABLET PO (20:24)
[2024-12-22] MEDS: Atorvastatin Calcium 20 MG Tablet PO (20:24)
[2024-12-23] MEDS: oxyCODONE 5 MG Tablet PO (00:16)
[2024-12-23] MEDS: cycloBENZAPRine HCl 5 MG TABLET PO ×2 (03:06→21:16)
[2024-12-23] MEDS: Menthol/Lanolin/Calamine/Znox 113 GM Tube 1 APPLIC TOPICAL ×2 (05:42→16:28)
[2024-12-23] MEDS: Acetaminophen 500 MG Tablet 1000 MG PO ×3 (05:44→21:17)
[2024-12-23] MEDS: Sodium Chloride 1 GM Tablet 2 GM PO ×3 (05:44→21:17)
[2024-12-23] MEDS: Meclizine HCl 25 MG Tablet PO ×3 (05:44→21:16)
[2024-12-23] MEDS: Levothyroxine 112 MCG Tablet PO (05:44)
[2024-12-23] MEDS: LORazepam 0.5 MG Tablet PO (06:18)
--- NOTE | 2024-12-23 06:36 | NURSING ---
Patient requested and received PRN ativan at 0618, patient was previously repositioned, fluids given, room temp adjusted, 1:1 given, redirection, previous non-pharm interventions ineffective,
[2024-12-23] MEDS: Magnesium Citrate 300 ML PO (06:40)
--- NOTE | 2024-12-23 06:44 | NURSING ---
Patient accepted mag citrate for bowel protocol.
[2024-12-23 07:55] VITALS: BP 151/81; PULSE 73; RESP 16; TEMP 36.4; O2SAT 98
[2024-12-23] MEDS: Carvedilol 3.125 MG TABLET PO ×2 (07:57→16:27)
[2024-12-23] MEDS: Ipratropium Bromide 0.06% NASAL SPRAY 1 SPRAY NASAL ×2 (07:58→21:16)
[2024-12-23] MEDS: Iron Polysaccharide Complex 150 MG CAPSULE PO (07:58)
[2024-12-23] MEDS: Loratadine 10 MG Tablet PO (07:58)
[2024-12-23] MEDS: Aspirin E.C. 81 MG Tablet PO (07:58)
[2024-12-23] MEDS: Polyethylene Glycol 3350 17 GM PACKET PO (07:59)
[2024-12-23] MEDS: Nystatin Powder 15gm Bottle 1 APPLIC TOPICAL ×2 (07:59→21:17)
[2024-12-23] MEDS: Senna/Docusate Sodium 1 Tablet 2 TABLET PO (07:59)
[2024-12-23] MEDS: Liothyronine 5 MCG Tablet PO (07:59)
[2024-12-23] MEDS: Sertraline 100 MG Tablet PO (07:59)
[2024-12-23 11:00] VITALS: BMI 30.1
[2024-12-23] MEDS: Tamsulosin HCl 0.4 MG Capsule PO (16:28)
[2024-12-23 20:09] VITALS: PULSE 80; O2SAT 94
[2024-12-23] MEDS: Atorvastatin Calcium 20 MG Tablet PO (21:16)
[2024-12-23] MEDS: MELATONIN 10 MG TABLET PO (21:17)
[2024-12-24] MEDS: oxyCODONE 5 MG Tablet PO ×3 (00:34→18:55)
[2024-12-24] MEDS: Acetaminophen 500 MG Tablet 1000 MG PO ×3 (05:47→20:18)
[2024-12-24] MEDS: Meclizine HCl 25 MG Tablet PO ×3 (05:47→20:13)
[2024-12-24] MEDS: Menthol/Lanolin/Calamine/Znox 113 GM Tube 1 APPLIC TOPICAL ×2 (05:48→17:33)
[2024-12-24] MEDS: Sodium Chloride 1 GM Tablet 2 GM PO ×3 (05:48→20:17)
[2024-12-24] MEDS: Levothyroxine 112 MCG Tablet PO (05:48)
[2024-12-24 05:50] VITALS: PULSE 71; O2SAT 98
[2024-12-24] MEDS: Iron Polysaccharide Complex 150 MG CAPSULE PO (08:19)
[2024-12-24] MEDS: Aspirin E.C. 81 MG Tablet PO (08:19)
[2024-12-24] MEDS: Carvedilol 3.125 MG TABLET PO ×2 (08:19→17:34)
[2024-12-24] MEDS: Loratadine 10 MG Tablet PO (08:20)
[2024-12-24] MEDS: Liothyronine 5 MCG Tablet PO (08:20)
[2024-12-24] MEDS: Ipratropium Bromide 0.06% NASAL SPRAY 1 SPRAY NASAL ×2 (08:20→20:14)
[2024-12-24] MEDS: Polyethylene Glycol 3350 17 GM PACKET PO (08:20)
[2024-12-24] MEDS: Sertraline 100 MG Tablet PO (08:21)
[2024-12-24] MEDS: Senna/Docusate Sodium 1 Tablet 2 TABLET PO (08:21)
[2024-12-24] MEDS: Nystatin Powder 15gm Bottle 1 APPLIC TOPICAL ×2 (08:21→20:16)
[2024-12-24 08:30] VITALS: BP 155/77; PULSE 64; RESP 18; O2SAT 97
[2024-12-24] MEDS: LORazepam 0.5 MG Tablet PO (12:52)
[2024-12-24 13:02] VITALS: TEMP 36.4
--- NOTE | 2024-12-24 14:16 | MDS.RN ---
Information for the MDS was obtained from review of the clinical record, interview of resident, staff, and direct observation of resident?s care.
[2024-12-24 14:19] VITALS: O2SAT 97
[2024-12-24 17:30] VITALS: BP 142/66; PULSE 69
[2024-12-24] MEDS: Tamsulosin HCl 0.4 MG Capsule PO (17:35)
[2024-12-24] MEDS: Atorvastatin Calcium 20 MG Tablet PO (20:15)
[2024-12-24] MEDS: MELATONIN 10 MG TABLET PO (20:15)
[2024-12-24] MEDS: cycloBENZAPRine HCl 5 MG TABLET PO (20:15)
[2024-12-25] MEDS: oxyCODONE 5 MG Tablet PO ×2 (00:32→22:05)
[2024-12-25] MEDS: Menthol/Lanolin/Calamine/Znox 113 GM Tube 1 APPLIC TOPICAL ×2 (05:43→17:05)
[2024-12-25] MEDS: Meclizine HCl 25 MG Tablet PO ×3 (05:44→20:43)
[2024-12-25] MEDS: Sodium Chloride 1 GM Tablet 2 GM PO ×3 (05:44→20:42)
[2024-12-25] MEDS: Levothyroxine 112 MCG Tablet PO (05:44)
[2024-12-25] MEDS: Acetaminophen 500 MG Tablet 1000 MG PO ×3 (05:44→20:42)
[2024-12-25] MEDS: LORazepam 0.5 MG Tablet PO ×3 (07:40→21:24)
[2024-12-25] MEDS: Ipratropium Bromide 0.06% NASAL SPRAY 1 SPRAY NASAL ×2 (07:41→20:44)
[2024-12-25] MEDS: Iron Polysaccharide Complex 150 MG CAPSULE PO (07:42)
[2024-12-25] MEDS: Aspirin E.C. 81 MG Tablet PO (07:42)
[2024-12-25] MEDS: Carvedilol 3.125 MG TABLET PO ×2 (07:42→17:04)
[2024-12-25] MEDS: Loratadine 10 MG Tablet PO (07:43)
[2024-12-25] MEDS: Liothyronine 5 MCG Tablet PO (07:43)
[2024-12-25] MEDS: Nystatin Powder 15gm Bottle 1 APPLIC TOPICAL ×2 (07:43→20:43)
[2024-12-25] MEDS: Senna/Docusate Sodium 1 Tablet 2 TABLET PO ×2 (07:43→20:42)
[2024-12-25] MEDS: Polyethylene Glycol 3350 17 GM PACKET PO (07:43)
[2024-12-25] MEDS: Sertraline 100 MG Tablet PO (07:44)
[2024-12-25 07:49] VITALS: BP 154/62; PULSE 62; RESP 18; O2SAT 97
[2024-12-25 14:04] VITALS: BP 139/51; PULSE 64; TEMP 36.1
[2024-12-25] MEDS: Tamsulosin HCl 0.4 MG Capsule PO (17:05)
[2024-12-25 17:09] VITALS: BP 143/67; PULSE 64
[2024-12-25] MEDS: Atorvastatin Calcium 20 MG Tablet PO (20:43)
[2024-12-25] MEDS: MELATONIN 10 MG TABLET PO (20:43)
[2024-12-25] MEDS: cycloBENZAPRine HCl 5 MG TABLET PO (20:43)
[2024-12-26] MEDS: Sodium Chloride 1 GM Tablet 2 GM PO ×3 (05:31→21:21)
[2024-12-26] MEDS: Acetaminophen 500 MG Tablet 1000 MG PO ×3 (05:32→21:22)
[2024-12-26] MEDS: oxyCODONE 5 MG Tablet PO (05:32)
[2024-12-26] MEDS: LORazepam 0.5 MG Tablet PO ×2 (05:32→15:51)
[2024-12-26] MEDS: Meclizine HCl 25 MG Tablet PO ×3 (05:33→21:19)
[2024-12-26] MEDS: Levothyroxine 112 MCG Tablet PO (05:34)
[2024-12-26] MEDS: Menthol/Lanolin/Calamine/Znox 113 GM Tube 1 APPLIC TOPICAL ×2 (05:34→17:33)
[2024-12-26 06:05] LABS: Absolute Lymphocyte Count 1.14 X10^3/uL (0.83-4.51); Absolute Neutrophil Count 3.8 X10^3/uL (2.0-7.7); Basophil# 0.03 X10^3/uL; Basophil% 0.5 % (0-1); Eosinophils% 5.2 % (0-5); Hematocrit 32.9 % (37-47); Hemoglobin 10.6 g/dL (12.0-15.0); Lymphocyte # 1.14 X10^3/ul (0.83-4.51); Lymphocyte % 19.9 % (19-41); Mean Corp Hgb Conc 32.2 g/dL (32-36); Mean Corpuscular Hgb 29.8 pg (27.0-32.0); Mean Corpuscular Volume 92.4 fL (81-99); Monocyte# 0.43 X10^3/uL; Monocyte% 7.5 % (0-10); NRBC Flagged by Analyzer 0 % (0-5); Neutrophil # 3.81 X10^3/uL (2.7-7.7); Neutrophil % 66.4 % (47-70); Platelet Count 381 K/mm3 (150-450); RBC Distribution Width CV 14.2 % (11.6-14.6); RBC Distribution Width SD 47.4 fl (35.1-43.9); Red Blood Count 3.56 M/mm3 (4.2-5.4); White Blood Count 5.7 K/mm3 (4.4-11.0)
[2024-12-26 06:43] LABS: BUN 19 mg/dL (4-19); Chloride 103 mmol/L (98-108); EST Glomerular Filtration Rate 90 (>60); Potassium 4.2 mmol/L (3.3-5.1); Sodium Level 138 mmol/L (133-145)
--- NOTE | 2024-12-26 09:17 | NURSING ---
staff assisting pt to recliner chair via halie at this time.
[2024-12-26 09:18] VITALS: BP 162/72; PULSE 73; RESP 17; TEMP 35.7; O2SAT 97
[2024-12-26] MEDS: Aspirin E.C. 81 MG Tablet PO (09:27)
[2024-12-26] MEDS: Senna/Docusate Sodium 1 Tablet 2 TABLET PO ×2 (09:27→21:22)
[2024-12-26] MEDS: Loratadine 10 MG Tablet PO (09:27)
[2024-12-26] MEDS: Iron Polysaccharide Complex 150 MG CAPSULE PO (09:27)
[2024-12-26] MEDS: Carvedilol 3.125 MG TABLET PO ×2 (09:27→15:53)
[2024-12-26] MEDS: Polyethylene Glycol 3350 17 GM PACKET PO (09:27)
[2024-12-26] MEDS: Liothyronine 5 MCG Tablet PO (09:27)
[2024-12-26] MEDS: Sertraline 100 MG Tablet PO (09:28)
[2024-12-26] MEDS: Ipratropium Bromide 0.06% NASAL SPRAY 1 SPRAY NASAL ×2 (09:28→21:20)
[2024-12-26] MEDS: Nystatin Powder 15gm Bottle 1 APPLIC TOPICAL ×2 (09:28→21:23)
[2024-12-26 13:53] LABS: Anion Gap 16 (5-15); BUN/Creat Ratio 16.4 RATIO (10-20); Carbon Dioxide 19.5 mmol/L (21.0-32.0); Creatinine, Serum 1.16 mg/dL (0.70-1.20); Estimated Creatinine Clearance 41.79 ml/min (50-250); Glucose 118 mg/dL (70-99)
[2024-12-26] MEDS: Tamsulosin HCl 0.4 MG Capsule PO (15:53)
[2024-12-26 15:55] VITALS: BP 144/66; PULSE 70
[2024-12-26] MEDS: cycloBENZAPRine HCl 5 MG TABLET PO (21:23)
[2024-12-26] MEDS: MELATONIN 10 MG TABLET PO (21:24)
[2024-12-26] MEDS: Atorvastatin Calcium 20 MG Tablet PO (21:24)
[2024-12-26] MEDS: Mag Hydrox/Al Hydrox/Simeth 30 ML UDC 15 ML PO (23:02)
[2024-12-27] MEDS: LORazepam 0.5 MG Tablet PO ×2 (01:42→20:53)
--- NOTE | 2024-12-27 01:51 | NURSING ---
Patient with c/o restlessness and anxiety, Interventions attempted, redirected, 1:1, activity, toileted, fluids given, positioned changed, room temp adjusted, interventions not effective per patient, patient requested and received PRN Ativan. call light left within reach,
--- NOTE | 2024-12-27 02:42 | NURSING ---
PRN Ativan is effective at time, patient resting quietly in bed with eyes closed, call light left within reach,
[2024-12-27] MEDS: Sodium Chloride 1 GM Tablet 2 GM PO ×3 (05:36→20:45)
[2024-12-27] MEDS: Levothyroxine 112 MCG Tablet PO (05:36)
[2024-12-27] MEDS: Acetaminophen 500 MG Tablet 1000 MG PO ×3 (05:36→20:45)
[2024-12-27] MEDS: Meclizine HCl 25 MG Tablet PO ×3 (05:37→20:46)
[2024-12-27] MEDS: Menthol/Lanolin/Calamine/Znox 113 GM Tube 1 APPLIC TOPICAL ×2 (05:37→16:57)
[2024-12-27] MEDS: Ipratropium Bromide 0.06% NASAL SPRAY 1 SPRAY NASAL ×2 (09:35→20:46)
[2024-12-27] MEDS: Carvedilol 3.125 MG TABLET PO ×2 (09:39→16:56)
[2024-12-27] MEDS: Loratadine 10 MG Tablet PO (09:40)
[2024-12-27] MEDS: Iron Polysaccharide Complex 150 MG CAPSULE PO (09:40)
[2024-12-27] MEDS: Aspirin E.C. 81 MG Tablet PO (09:40)
[2024-12-27] MEDS: Polyethylene Glycol 3350 17 GM PACKET PO (09:42)
[2024-12-27] MEDS: Senna/Docusate Sodium 1 Tablet 2 TABLET PO ×2 (09:43→20:45)
[2024-12-27] MEDS: Liothyronine 5 MCG Tablet PO (09:43)
[2024-12-27] MEDS: Sertraline 100 MG Tablet PO (09:44)
[2024-12-27] MEDS: Nystatin Powder 15gm Bottle 1 APPLIC TOPICAL ×2 (09:44→20:46)
[2024-12-27 09:54] VITALS: BP 136/64; PULSE 82; RESP 18; TEMP 36.4; O2SAT 97
[2024-12-27] MEDS: Mag Hydrox/Al Hydrox/Simeth 30 ML UDC 15 ML PO (10:32)
--- NOTE | 2024-12-27 15:28 | NURSING ---
PT HAS BEEN UP IN RECLINER TWICE AND HAS TOLERATED WELL.
[2024-12-27 16:00] VITALS: BP 153/59; PULSE 67
[2024-12-27] MEDS: Tamsulosin HCl 0.4 MG Capsule PO (16:57)
[2024-12-27] MEDS: MELATONIN 10 MG TABLET PO (20:45)
[2024-12-27] MEDS: Atorvastatin Calcium 20 MG Tablet PO (20:46)
[2024-12-27] MEDS: cycloBENZAPRine HCl 5 MG TABLET PO (20:46)
[2024-12-28] MEDS: oxyCODONE 5 MG Tablet PO (00:40)
[2024-12-28] MEDS: Sodium Chloride 1 GM Tablet 2 GM PO ×3 (05:35→20:32)
[2024-12-28] MEDS: Levothyroxine 112 MCG Tablet PO (05:35)
[2024-12-28] MEDS: Meclizine HCl 25 MG Tablet PO ×3 (05:35→20:32)
[2024-12-28] MEDS: Menthol/Lanolin/Calamine/Znox 113 GM Tube 1 APPLIC TOPICAL ×2 (05:36→17:14)
[2024-12-28] MEDS: Acetaminophen 500 MG Tablet 1000 MG PO ×3 (05:36→20:31)
[2024-12-28] MEDS: LORazepam 0.5 MG Tablet PO ×3 (07:37→20:31)
[2024-12-28] MEDS: Carvedilol 3.125 MG TABLET PO ×2 (07:37→17:15)
[2024-12-28] MEDS: Iron Polysaccharide Complex 150 MG CAPSULE PO (07:38)
[2024-12-28] MEDS: Ipratropium Bromide 0.06% NASAL SPRAY 1 SPRAY NASAL ×2 (07:38→20:32)
[2024-12-28] MEDS: Aspirin E.C. 81 MG Tablet PO (07:38)
[2024-12-28] MEDS: Polyethylene Glycol 3350 17 GM PACKET PO (07:38)
[2024-12-28] MEDS: Loratadine 10 MG Tablet PO (07:39)
[2024-12-28] MEDS: Nystatin Powder 15gm Bottle 1 APPLIC TOPICAL ×2 (07:40→20:37)
[2024-12-28] MEDS: Liothyronine 5 MCG Tablet PO (07:40)
[2024-12-28] MEDS: Senna/Docusate Sodium 1 Tablet 2 TABLET PO ×2 (07:41→20:32)
[2024-12-28] MEDS: Sertraline 100 MG Tablet PO (07:42)
[2024-12-28 07:49] VITALS: BP 162/70; PULSE 66; RESP 18; TEMP 36.4; O2SAT 99
[2024-12-28 14:00] VITALS: PULSE 76; RESP 18; O2SAT 99
[2024-12-28 14:27] VITALS: O2SAT 94
[2024-12-28] MEDS: Tamsulosin HCl 0.4 MG Capsule PO (17:16)
[2024-12-28 17:20] VITALS: BP 152/61; PULSE 73
[2024-12-28] MEDS: cycloBENZAPRine HCl 5 MG TABLET PO (20:31)
[2024-12-28] MEDS: Atorvastatin Calcium 20 MG Tablet PO (20:32)
[2024-12-28] MEDS: MELATONIN 10 MG TABLET PO (20:34)
[2024-12-29] MEDS: LORazepam 0.5 MG Tablet PO ×2 (00:32→06:05)
[2024-12-29] MEDS: Meclizine HCl 25 MG Tablet PO ×3 (06:04→20:18)
[2024-12-29] MEDS: Sodium Chloride 1 GM Tablet 2 GM PO ×3 (06:05→20:20)
[2024-12-29] MEDS: Acetaminophen 500 MG Tablet 1000 MG PO ×3 (06:05→20:21)
[2024-12-29] MEDS: Levothyroxine 112 MCG Tablet PO (06:05)
[2024-12-29] MEDS: Menthol/Lanolin/Calamine/Znox 113 GM Tube 1 APPLIC TOPICAL ×2 (06:07→16:34)
[2024-12-29 07:10] VITALS: O2SAT 93
[2024-12-29 07:55] VITALS: BP 179/83; PULSE 78; RESP 18; TEMP 36.8; O2SAT 98
[2024-12-29] MEDS: oxyCODONE 5 MG Tablet PO (07:56)
[2024-12-29] MEDS: Aspirin E.C. 81 MG Tablet PO (07:57)
[2024-12-29] MEDS: Loratadine 10 MG Tablet PO (07:57)
[2024-12-29] MEDS: Ipratropium Bromide 0.06% NASAL SPRAY 1 SPRAY NASAL ×2 (07:57→20:16)
[2024-12-29] MEDS: Carvedilol 3.125 MG TABLET PO ×2 (07:58→16:34)
[2024-12-29] MEDS: Sertraline 100 MG Tablet PO (07:58)
[2024-12-29] MEDS: Nystatin Powder 15gm Bottle 1 APPLIC TOPICAL ×2 (07:59→20:19)
[2024-12-29] MEDS: Liothyronine 5 MCG Tablet PO (07:59)
[2024-12-29] MEDS: Iron Polysaccharide Complex 150 MG CAPSULE PO (08:00)
--- NOTE | 2024-12-29 08:15 | RAD_ITS ---
EXAM: XR Left Knee, 1 or 2 Views CLINICAL INDICATION: FRACTURE OF LEFT PATELLA TECHNIQUE: Frontal and/or lateral views of the left knee. COMPARISON: No relevant prior studies available. FINDINGS: BONES/JOINTS: Moderate to severe distracted comminuted fracture of the patella. No dislocation. SOFT TISSUES: Soft tissue swelling. RAD/Knee 1 or 2 Views IMPRESSION: Moderate to severe distracted comminuted fracture of the patella. Reading Location: [facility]
[2024-12-29 10:00] VITALS: RESP 18
--- NOTE | 2024-12-29 10:04 | NURSING ---
Off unit to Tasia redmondt. Updated office that xrays done this morning on TCU.
--- NOTE | 2024-12-29 12:30 | NURSING ---
Addendum entered by Juana Briscoe 12/29/24 12:39: Order to complete knee xray prior to next follow-up. Order edited from weekly to have one on 01/15/25 before appt the next day. Original Note: Return from ortho appt. Orders to continue with knee immobilizer, no ROM left knee, 50% WB LLE w/ immobilizer.
[2024-12-29] MEDS: Tamsulosin HCl 0.4 MG Capsule PO (16:34)
[2024-12-29] MEDS: cycloBENZAPRine HCl 5 MG TABLET PO (20:18)
[2024-12-29] MEDS: Atorvastatin Calcium 20 MG Tablet PO (20:18)
[2024-12-29] MEDS: MELATONIN 10 MG TABLET PO (20:19)
[2024-12-30] MEDS: oxyCODONE 5 MG Tablet PO (01:25)
[2024-12-30] MEDS: LORazepam 0.5 MG Tablet PO ×2 (03:15→17:27)
--- NOTE | 2024-12-30 03:30 | NURSING ---
Patient restless and noted anxiety, PRN Ativan given by other nurse at 0315, bladder scanned for 947cc, straight cathed for 900cc, patient tolerated well,
--- NOTE | 2024-12-30 04:26 | NURSING ---
Patient with c/o discomfort with urination, urine is cloudy, Dr. Marks updated via written communication.
[2024-12-30] MEDS: Levothyroxine 112 MCG Tablet PO (05:46)
[2024-12-30] MEDS: Sodium Chloride 1 GM Tablet 2 GM PO ×3 (05:46→21:22)
[2024-12-30] MEDS: Meclizine HCl 25 MG Tablet PO ×3 (05:46→21:21)
[2024-12-30] MEDS: Menthol/Lanolin/Calamine/Znox 113 GM Tube 1 APPLIC TOPICAL ×2 (05:46→17:28)
[2024-12-30] MEDS: Acetaminophen 500 MG Tablet 1000 MG PO ×3 (05:47→21:21)
[2024-12-30] MEDS: Ipratropium Bromide 0.06% NASAL SPRAY 1 SPRAY NASAL ×2 (08:18→21:13)
[2024-12-30] MEDS: Carvedilol 3.125 MG TABLET PO ×2 (08:18→17:28)
[2024-12-30] MEDS: Loratadine 10 MG Tablet PO (08:18)
[2024-12-30] MEDS: Sertraline 100 MG Tablet PO (08:18)
[2024-12-30] MEDS: Nystatin Powder 15gm Bottle 1 APPLIC TOPICAL ×2 (08:19→21:23)
[2024-12-30] MEDS: Liothyronine 5 MCG Tablet PO (08:19)
[2024-12-30] MEDS: Aspirin E.C. 81 MG Tablet PO (08:19)
[2024-12-30] MEDS: Iron Polysaccharide Complex 150 MG CAPSULE PO (08:19)
[2024-12-30 10:00] VITALS: PULSE 70; RESP 16; O2SAT 95
[2024-12-30 11:00] VITALS: BMI 29.2
[2024-12-30 11:33] LABS: Bacteria 0 SEEN /hpf (None Seen); Mucous, Urine 0 SEEN /hpf (<or=2+); Red Blood Cells-Urine 0 SEEN /hpf (0-5); Squamous Epithelial Cells - UA 0 SEEN /hpf (5-10)
[2024-12-30 13:03] LABS: Color, Urine Yellow (Yellow); Glucose, Dipstick Normal (Normal); Ketone-Dipstick Negative (Negative); Leukocyte Esterase-Dipstick 500 /ul (Negative); Nitrite-Dipstick Negative (Negative); Occult Blood-Urine 250 /ul (Negative); Protein-Dipstick 100 mg/dl (Negative); Specific Gravity, Urine 1.015 (1.002-1.030); Urine Bilirubin Dipstick Negative (Negative); Urine Urobilinogen Normal (Normal)
[2024-12-30 13:06] LABS: Urine Clarity Turbid (Clear)
[2024-12-30 13:07] LABS: White Blood Cells >100 SEEN /hpf (0-5)
[2024-12-30 15:22] VITALS: BP 142/78; PULSE 74; RESP 16; TEMP 36.8; O2SAT 97
[2024-12-30] MEDS: Tamsulosin HCl 0.4 MG Capsule PO (17:28)
[2024-12-30] MEDS: Senna/Docusate Sodium 1 Tablet 2 TABLET PO (21:23)
[2024-12-30] MEDS: cycloBENZAPRine HCl 5 MG TABLET PO (21:24)
[2024-12-30] MEDS: Atorvastatin Calcium 20 MG Tablet PO (21:24)
[2024-12-30] MEDS: MELATONIN 10 MG TABLET PO (21:24)
[2024-12-31] MEDS: LORazepam 0.5 MG Tablet PO ×2 (04:57→21:01)
[2024-12-31] MEDS: Menthol/Lanolin/Calamine/Znox 113 GM Tube 1 APPLIC TOPICAL ×2 (04:58→09:09)
[2024-12-31] MEDS: Sodium Chloride 1 GM Tablet 2 GM PO ×3 (04:59→21:02)
[2024-12-31] MEDS: Acetaminophen 500 MG Tablet 1000 MG PO ×3 (04:59→21:01)
[2024-12-31] MEDS: Levothyroxine 112 MCG Tablet PO (04:59)
[2024-12-31] MEDS: Meclizine HCl 25 MG Tablet PO ×3 (04:59→21:02)
--- NOTE | 2024-12-31 05:05 | NURSING ---
Patient with c/o anxiety, Interventions attempted, redirected, 1:1, toileted, fluids given, positioned changed, room temp adjusted, interventions not effective per patient, patient requested and received PRN Ativan. call light left within reach,
--- NOTE | 2024-12-31 05:45 | NURSING ---
PRN Ativan is effective at time, patient resting quietly in bed with eyes closed, call light left within reach,
--- NOTE | 2024-12-31 07:42 | NURSING ---
late note: 12/30/24 @1000. Bladder scan showed over 900cc. First attempt to straight cath was unsuccessful, then this RN updated. In room resident crying, saying I can't take this anymore referring to the discomfort of straight cath. Richter placed, updated Dr. Marks of resident complaint and large amount residuals. Order for richter received.
[2024-12-31] MEDS: Nystatin Powder 15gm Bottle 1 APPLIC TOPICAL ×2 (09:09→21:05)
[2024-12-31] MEDS: Iron Polysaccharide Complex 150 MG CAPSULE PO (09:10)
[2024-12-31] MEDS: Aspirin E.C. 81 MG Tablet PO (09:10)
[2024-12-31] MEDS: Carvedilol 3.125 MG TABLET PO ×2 (09:10→17:09)
[2024-12-31] MEDS: Loratadine 10 MG Tablet PO (09:10)
[2024-12-31] MEDS: Senna/Docusate Sodium 1 Tablet 2 TABLET PO ×2 (09:11→21:01)
[2024-12-31] MEDS: Polyethylene Glycol 3350 17 GM PACKET PO (09:11)
[2024-12-31] MEDS: Liothyronine 5 MCG Tablet PO (09:11)
[2024-12-31] MEDS: Sertraline 100 MG Tablet PO (09:12)
[2024-12-31] MEDS: Ipratropium Bromide 0.06% NASAL SPRAY 1 SPRAY NASAL ×2 (09:12→21:02)
[2024-12-31] MEDS: Ciprofloxacin 250 MG Tablet PO ×2 (09:16→21:02)
[2024-12-31 09:26] VITALS: BP 155/71; PULSE 83; RESP 16; TEMP 36.3; O2SAT 96
[2024-12-31 15:10] VITALS: PULSE 75; RESP 18; O2SAT 97
[2024-12-31 16:00] VITALS: BP 159/67; PULSE 75
[2024-12-31] MEDS: Tamsulosin HCl 0.4 MG Capsule PO (17:10)
[2024-12-31] MEDS: MELATONIN 10 MG TABLET PO (21:01)
[2024-12-31] MEDS: cycloBENZAPRine HCl 5 MG TABLET PO (21:02)
[2024-12-31] MEDS: Atorvastatin Calcium 20 MG Tablet PO (21:02)
[2025-01-01] MEDS: Levothyroxine 112 MCG Tablet PO (05:03)
[2025-01-01] MEDS: Meclizine HCl 25 MG Tablet PO ×3 (05:03→20:25)
[2025-01-01] MEDS: Sodium Chloride 1 GM Tablet 2 GM PO ×3 (05:03→20:25)
[2025-01-01] MEDS: Menthol/Lanolin/Calamine/Znox 113 GM Tube 1 APPLIC TOPICAL ×2 (05:04→18:02)
[2025-01-01] MEDS: Acetaminophen 500 MG Tablet 1000 MG PO ×3 (05:04→20:25)
[2025-01-01] MEDS: cycloBENZAPRine HCl 5 MG TABLET PO ×2 (05:21→20:25)
[2025-01-01] MEDS: Ipratropium Bromide 0.06% NASAL SPRAY 1 SPRAY NASAL ×2 (07:55→20:26)
[2025-01-01] MEDS: Aspirin E.C. 81 MG Tablet PO (08:00)
[2025-01-01] MEDS: Iron Polysaccharide Complex 150 MG CAPSULE PO (08:00)
[2025-01-01] MEDS: Carvedilol 3.125 MG TABLET PO ×2 (08:00→18:01)
[2025-01-01] MEDS: Ciprofloxacin 250 MG Tablet PO ×2 (08:01→20:25)
[2025-01-01] MEDS: Loratadine 10 MG Tablet PO (08:01)
[2025-01-01] MEDS: Nystatin Powder 15gm Bottle 1 APPLIC TOPICAL ×2 (08:01→20:25)
[2025-01-01] MEDS: Polyethylene Glycol 3350 17 GM PACKET PO (08:01)
[2025-01-01] MEDS: Liothyronine 5 MCG Tablet PO (08:01)
[2025-01-01] MEDS: Senna/Docusate Sodium 1 Tablet 2 TABLET PO ×2 (08:02→20:25)
[2025-01-01] MEDS: Sertraline 100 MG Tablet PO (08:02)
[2025-01-01 08:11] VITALS: BP 147/64; PULSE 78; RESP 18; TEMP 36.1; O2SAT 97
[2025-01-01] MEDS: LORazepam 0.5 MG Tablet PO ×3 (09:53→21:44)
[2025-01-01 11:40] VITALS: PULSE 76; RESP 18; O2SAT 96
[2025-01-01] MEDS: Mag Hydrox/Al Hydrox/Simeth 30 ML UDC 15 ML PO (16:19)
--- NOTE | 2025-01-01 16:22 | NURSING ---
PT ANXIETY RUNNING HIGH TODAY. PRN ATIVAN HAS BEEN GIVEN TWICE DUE TO DIFFERENT INTERVENTIONS WOULD NOT WORK. COOL WASH RAG TO FORE HEAD AND PT REPOSITIONED,FAN BLOWING ON PT. WILL CONTINUE TO MONITOR
[2025-01-01] MEDS: Tamsulosin HCl 0.4 MG Capsule PO (18:01)
[2025-01-01 18:04] VITALS: BP 137/65; PULSE 71
[2025-01-01] MEDS: MELATONIN 10 MG TABLET PO (20:25)
[2025-01-01] MEDS: Atorvastatin Calcium 20 MG Tablet PO (20:25)
[2025-01-02] MEDS: oxyCODONE 5 MG Tablet PO ×3 (00:39→20:47)
--- NOTE | 2025-01-02 00:39 | NURSING ---
Presents in bed, c/o 8/10 pain to LLE, non-pharmacologic interventions ineffective, patient requests PRN Oxy. Oxy administered as ordered at this time. Repositioned for comfort, fluids offered and tolerated well. Denies further requests. Call light in reach.
[2025-01-02] MEDS: LORazepam 0.5 MG Tablet PO ×3 (04:34→23:02)
--- NOTE | 2025-01-02 04:34 | NURSING ---
Presents in bed, requests PRN ativan at this time. Fluids offered, soft music playing, 1:1, feelings validated, repositioned for comfort, non-pharmacologic interventions ineffective. Patient states I don't know why I get anxious, I just need my ativan to help it. PRN ativan administered as ordered per pt. request. Denies further requests. Call light in reach.
[2025-01-02 04:39] VITALS: PULSE 73; RESP 16; O2SAT 95
[2025-01-02] MEDS: Acetaminophen 500 MG Tablet 1000 MG PO ×3 (05:01→20:48)
[2025-01-02] MEDS: Levothyroxine 112 MCG Tablet PO (05:01)
[2025-01-02] MEDS: Meclizine HCl 25 MG Tablet PO ×3 (05:01→20:48)
[2025-01-02] MEDS: Sodium Chloride 1 GM Tablet 2 GM PO ×3 (05:01→20:48)
[2025-01-02] MEDS: Menthol/Lanolin/Calamine/Znox 113 GM Tube 1 APPLIC TOPICAL ×2 (05:02→18:10)
[2025-01-02 06:38] LABS: Anion Gap 9 (5-15); BUN 22 mg/dL (4-19); BUN/Creat Ratio 29.7 RATIO (10-20); Calcium,Total 9.1 mg/dL (7.6-11.0); Carbon Dioxide 25.7 mmol/L (21.0-32.0); Chloride 104 mmol/L (98-108); Creatinine, Serum 0.74 mg/dL (0.70-1.20); EST Glomerular Filtration Rate 82 (>60); Glucose 94 mg/dL (70-99); Potassium 4.2 mmol/L (3.3-5.1); Sodium Level 138 mmol/L (133-145)
[2025-01-02 06:44] LABS: Basophil# 0.04 X10^3/uL; Eosinophil# 0.42 X10^3/uL; Eosinophils% 10.2 % (0-5); Hematocrit 32.1 % (37-47); Hemoglobin 10.3 g/dL (12.0-15.0); Lymphocyte % 29.1 % (19-41); Mean Corp Hgb Conc 32.1 g/dL (32-36); Mean Corpuscular Hgb 29.9 pg (27.0-32.0); Mean Corpuscular Volume 93.3 fL (81-99); Mean Platelet Vol. 9.4 fl (6.2-12.0); Monocyte# 0.41 X10^3/uL; NRBC Flagged by Analyzer 0 % (0-5); Neutrophil # 2.04 X10^3/uL (2.7-7.7); Neutrophil % 49.5 % (47-70); Platelet Count 359 K/mm3 (150-450); RBC Distribution Width CV 14.6 % (11.6-14.6); Red Blood Count 3.44 M/mm3 (4.2-5.4); White Blood Count 4.1 K/mm3 (4.4-11.0)
[2025-01-02] MEDS: Liothyronine 5 MCG Tablet PO (08:28)
[2025-01-02] MEDS: Senna/Docusate Sodium 1 Tablet 2 TABLET PO ×2 (08:28→20:48)
[2025-01-02] MEDS: Polyethylene Glycol 3350 17 GM PACKET PO (08:28)
[2025-01-02] MEDS: Loratadine 10 MG Tablet PO (08:28)
[2025-01-02] MEDS: Ciprofloxacin 250 MG Tablet PO ×2 (08:28→20:48)
[2025-01-02] MEDS: Iron Polysaccharide Complex 150 MG CAPSULE PO (08:29)
[2025-01-02] MEDS: Ipratropium Bromide 0.06% NASAL SPRAY 1 SPRAY NASAL ×2 (08:29→20:48)
[2025-01-02] MEDS: Carvedilol 3.125 MG TABLET PO ×2 (08:29→16:14)
[2025-01-02] MEDS: Sertraline 100 MG Tablet PO (08:29)
[2025-01-02] MEDS: Aspirin E.C. 81 MG Tablet PO (08:29)
[2025-01-02] MEDS: Nystatin Powder 15gm Bottle 1 APPLIC TOPICAL ×2 (08:30→20:49)
[2025-01-02 14:48] VITALS: BP 141/62; PULSE 76; RESP 18; TEMP 36.3; O2SAT 96
[2025-01-02] MEDS: Tamsulosin HCl 0.4 MG Capsule PO (16:14)
[2025-01-02] MEDS: Atorvastatin Calcium 20 MG Tablet PO (20:47)
[2025-01-02] MEDS: MELATONIN 10 MG TABLET PO (20:47)
[2025-01-02] MEDS: cycloBENZAPRine HCl 5 MG TABLET PO (20:48)
[2025-01-03 02:38] VITALS: PULSE 74; RESP 18
[2025-01-03] MEDS: Acetaminophen 500 MG Tablet 1000 MG PO ×3 (06:00→21:18)
[2025-01-03] MEDS: Levothyroxine 112 MCG Tablet PO (06:00)
[2025-01-03] MEDS: Sodium Chloride 1 GM Tablet 2 GM PO ×3 (06:00→21:17)
[2025-01-03] MEDS: Menthol/Lanolin/Calamine/Znox 113 GM Tube 1 APPLIC TOPICAL ×2 (06:00→17:09)
[2025-01-03] MEDS: Meclizine HCl 25 MG Tablet PO ×3 (06:00→21:16)
[2025-01-03] MEDS: LORazepam 0.5 MG Tablet PO ×3 (06:30→21:17)
[2025-01-03] MEDS: Ipratropium Bromide 0.06% NASAL SPRAY 1 SPRAY NASAL ×2 (09:33→21:16)
[2025-01-03] MEDS: Polyethylene Glycol 3350 17 GM PACKET PO (09:33)
[2025-01-03] MEDS: Nystatin Powder 15gm Bottle 1 APPLIC TOPICAL ×2 (09:34→21:18)
[2025-01-03] MEDS: Aspirin E.C. 81 MG Tablet PO (09:34)
[2025-01-03] MEDS: Iron Polysaccharide Complex 150 MG CAPSULE PO (09:34)
[2025-01-03] MEDS: Carvedilol 3.125 MG TABLET PO ×2 (09:34→17:09)
[2025-01-03] MEDS: Sertraline 100 MG Tablet PO (09:34)
[2025-01-03] MEDS: Loratadine 10 MG Tablet PO (09:34)
[2025-01-03] MEDS: Senna/Docusate Sodium 1 Tablet 2 TABLET PO ×2 (09:34→21:17)
[2025-01-03] MEDS: Ciprofloxacin 250 MG Tablet PO ×2 (09:34→21:16)
[2025-01-03] MEDS: Liothyronine 5 MCG Tablet PO (09:34)
[2025-01-03 09:48] VITALS: BP 111/59; PULSE 77; RESP 16; TEMP 36.8; O2SAT 98
[2025-01-03] MEDS: Tamsulosin HCl 0.4 MG Capsule PO (17:08)
[2025-01-03] MEDS: cycloBENZAPRine HCl 5 MG TABLET PO (21:16)
[2025-01-03] MEDS: MELATONIN 10 MG TABLET PO (21:17)
[2025-01-03] MEDS: oxyCODONE 5 MG Tablet PO (21:17)
[2025-01-03] MEDS: Atorvastatin Calcium 20 MG Tablet PO (21:17)
[2025-01-03] MEDS: Mag Hydrox/Al Hydrox/Simeth 30 ML UDC 15 ML PO (21:24)
[2025-01-04] MEDS: LORazepam 0.5 MG Tablet PO ×3 (03:06→20:02)
[2025-01-04] MEDS: Levothyroxine 112 MCG Tablet PO (06:02)
[2025-01-04] MEDS: Sodium Chloride 1 GM Tablet 2 GM PO ×3 (06:02→20:01)
[2025-01-04] MEDS: Acetaminophen 500 MG Tablet 1000 MG PO ×3 (06:02→20:01)
[2025-01-04] MEDS: Meclizine HCl 25 MG Tablet PO ×3 (06:03→20:02)
[2025-01-04] MEDS: Menthol/Lanolin/Calamine/Znox 113 GM Tube 1 APPLIC TOPICAL ×2 (06:03→16:34)
--- NOTE | 2025-01-04 07:12 | NURSING ---
late entry; removed brace on lle. skin intact.
[2025-01-04] MEDS: Aspirin E.C. 81 MG Tablet PO (07:57)
[2025-01-04] MEDS: Iron Polysaccharide Complex 150 MG CAPSULE PO (07:57)
[2025-01-04] MEDS: Sertraline 100 MG Tablet PO (07:57)
[2025-01-04] MEDS: Senna/Docusate Sodium 1 Tablet 2 TABLET PO ×2 (07:57→20:01)
[2025-01-04] MEDS: Loratadine 10 MG Tablet PO (07:57)
[2025-01-04] MEDS: Carvedilol 3.125 MG TABLET PO ×2 (07:57→16:33)
[2025-01-04] MEDS: Polyethylene Glycol 3350 17 GM PACKET PO (07:57)
[2025-01-04] MEDS: Nystatin Powder 15gm Bottle 1 APPLIC TOPICAL ×2 (07:58→20:04)
[2025-01-04] MEDS: Ciprofloxacin 250 MG Tablet PO ×2 (07:58→20:02)
[2025-01-04] MEDS: Ipratropium Bromide 0.06% NASAL SPRAY 1 SPRAY NASAL ×2 (07:58→20:00)
[2025-01-04] MEDS: Liothyronine 5 MCG Tablet PO (07:58)
[2025-01-04 10:02] VITALS: BP 153/76; PULSE 76; RESP 17; TEMP 36.4; O2SAT 98
[2025-01-04] MEDS: oxyCODONE 5 MG Tablet PO (15:14)
[2025-01-04] MEDS: Tamsulosin HCl 0.4 MG Capsule PO (16:34)
[2025-01-04] MEDS: MELATONIN 10 MG TABLET PO (20:01)
[2025-01-04] MEDS: cycloBENZAPRine HCl 5 MG TABLET PO (20:02)
[2025-01-04] MEDS: Atorvastatin Calcium 20 MG Tablet PO (20:02)
[2025-01-05] MEDS: LORazepam 0.5 MG Tablet PO (02:15)
--- NOTE | 2025-01-05 04:50 | NURSING ---
Addendum entered by Kylee Boateng 01/05/25 05:09: Patient has called three times in 15 minutes for pillow fluffing and keeps requesting someone sit in her room with her to talk. This nurse spoke to patient and patient continues with disorganized behaviors, mumbled speech, and disorientation. Patient understands that nursing cannot stay at her bedside all night. Patients cognition has worsened since last ativan administration and patient is more anxious after last dose at 0215. Patient asked again for ativan. Patient educated that ativan is not due at this time. Attempted redirecting, 1:1 provided, lights dimmed. Interventions ineffective, written communication left for Dr. Marks regarding patient's ativan use and cognitive state. Call light within reach. Original Note: Patient given ativan at 0215 for anxiety. Patient called out again at 0445 requesting another dose, patient educated that ativan can only be given every 4 hours. Patient has been asking for ativan every 2-3hours throughout the night despite education. Emotional support and education provided. Patient verbalized understanding. Call ravi within reach, patient denies additional needs at this time.
[2025-01-05] MEDS: Meclizine HCl 25 MG Tablet PO ×3 (06:13→19:50)
[2025-01-05] MEDS: Levothyroxine 112 MCG Tablet PO (06:13)
[2025-01-05] MEDS: Acetaminophen 500 MG Tablet 1000 MG PO ×3 (06:13→19:49)
[2025-01-05] MEDS: Sodium Chloride 1 GM Tablet 2 GM PO ×3 (06:13→19:49)
[2025-01-05] MEDS: Menthol/Lanolin/Calamine/Znox 113 GM Tube 1 APPLIC TOPICAL ×2 (06:15→16:17)
--- NOTE | 2025-01-05 08:40 | RAD_ITS ---
PROCEDURE: KNEE 1 OR 2 VIEWS 01/05/2025 REASON FOR EXAM: FRACTURE OF LEFT PATELLA TECHNIQUE: AP and cross-table lateral views of the LEFT knee were obtained. COMPARISON: 12/29/2024 FINDINGS: Fracture/dislocation: Redemonstrated mid patellar fracture in unchanged alignment without short interval development of evidence of healing. Roughly 1.0 cm of distraction and slight posterior displacement of the proximal fragment with respect to the distal fragment are similar. Joint space(s): Mild loss of medial compartment joint space. Patellofemoral compartment suboptimally evaluated due to oblique positioning, suspect at least mild joint space loss. Soft tissues: Suspect a small effusion. Foreign bodies: None visible. Bone mineralization: Demineralization. Other: None. RAD/Knee 1 or 2 Views IMPRESSION: 1. Redemonstrated distracted mid patellar fracture in unchanged alignment luis e red with 12/29/2024. 2. Additional description as above. Reading Location: [id number]
[2025-01-05] MEDS: Ipratropium Bromide 0.06% NASAL SPRAY 1 SPRAY NASAL ×2 (08:52→19:51)
[2025-01-05] MEDS: Aspirin E.C. 81 MG Tablet PO (08:52)
[2025-01-05] MEDS: Senna/Docusate Sodium 1 Tablet 2 TABLET PO ×2 (08:52→19:49)
[2025-01-05] MEDS: Liothyronine 5 MCG Tablet PO (08:53)
[2025-01-05] MEDS: Loratadine 10 MG Tablet PO (08:53)
[2025-01-05] MEDS: Iron Polysaccharide Complex 150 MG CAPSULE PO (08:54)
[2025-01-05] MEDS: Nystatin Powder 15gm Bottle 1 APPLIC TOPICAL ×2 (08:54→19:50)
[2025-01-05] MEDS: Ciprofloxacin 250 MG Tablet PO ×2 (08:54→19:50)
[2025-01-05] MEDS: Polyethylene Glycol 3350 17 GM PACKET PO (08:54)
[2025-01-05] MEDS: Sertraline 100 MG Tablet 150 MG PO (08:57)
[2025-01-05 09:18] VITALS: BP 103/76; PULSE 91; RESP 16; TEMP 37.2; O2SAT 94
[2025-01-05] MEDS: Carvedilol 3.125 MG TABLET PO ×2 (09:18→16:16)
[2025-01-05] MEDS: cycloBENZAPRine HCl 5 MG TABLET PO ×2 (13:16→19:51)
[2025-01-05] MEDS: Tamsulosin HCl 0.4 MG Capsule PO (16:17)
[2025-01-05 16:19] VITALS: BP 144/74; PULSE 72
--- NOTE | 2025-01-05 19:38 | PN.TCU_ITS ---
Subjective Subjective Patient seen, examined for regulatory visit. She has been anxious, but she is progressing with therapy, I gave her reassurance, she is doing well, and should be able to discharge home. Objective Data Objective Data Vital Signs: Vital Signs Temp Pulse Resp BP Pulse Ox O2 Del Method O2 Flow Rate 98.9 F 72 16 144/74 H 94 Room Air 2 01/05/25 09:18 01/05/25 16:19 01/05/25 09:18 01/05/25 16:19 01/05/25 09:18 01/05/25 09:18 12/27/24 21:00 Oxygen Flow Rate (L/min) 2 Oxygen Delivery Method Room Air Weight: 82.463 kg Body Mass Index (BMI) 29.2 Intake & Output: Intake and Output for Last 24 Hours 01/03/25 01/04/25 01/05/25 23:59 23:59 23:59 Intake Total 300 / 300 240 / 240 340 / 340 Output Total 3450 / 3450 2750 / 2750 3500 / 3500 Balance -3150 / -3150 -2510 / -2510 -3160 / -3160 Lab / Micro Data 01/02/25 05:04 01/02/25 05:04 Micro: Microbiology 12/30/24 10:25 Urine Catheter - Catheter Urine Culture - Final Klebsiella pneumoniae sp pneum 12/17/24 11:00 Urine Catheter - Catheter Urine Culture - Final Granulicatella elegans 12/19/24 16:10 Stool Stool Occult Blood (ROBBIE) - Final Physical Exam Const alert General Appearance: cooperative HEENT normocephalic Eyes PERRL and EOMs intact bilaterally Neck supple, no JVD and no carotid bruits Resp normal respiratory effort, normal air movement and clear to auscultation bilaterally Cardio regular rate and regular rhythm GI normal to inspection, nondistended, normoactive bowel sounds, non-tender and non-distended Extremity normal capillary refill Extremity Narrative: Left knee immobilizer. General Extremity: Negative for edema Skin no rashes or lesions noted General Skin Exam: no breakdown Psych affect normal Appearance: appropriate Assessment & Plan Assessment/Plan (1) Debility: (2) Syncope: QUALIFIERS: Syncope type: unspecified Qualified Code(s): R55 - Syncope and collapse (3) Orthostatic hypotension: (4) BPPV (benign paroxysmal positional vertigo): (5) Closed fracture of left patella: (6) Elevated troponin: (7) Hyponatremia: (8) Essential (primary) hypertension: (9) Hyperlipidemia: (10) CAD (coronary artery disease): (11) Osteoarthritis: (12) Allergic rhinitis: (13) Depression: (14) Hypothyroidism: PLAN: Plan 79 year old female with below past medical history hospitalized for left displaced patella fracture, syncope, orthostatic hypotension, bppv, complicated by elevated troponin, hyponatremia, nsvt, admitted to TCU with debility, here for rehabilitation, strengthening, prior to disposition determination. * Debility - PT/OT. * Cognition - ST. * Pain - Tylenol 1000mg q8, Oxycodone 5mg q6 prn pain (4-10) * Bowel - Miralax 17gm daily, senna/colace 2 tablets bid, Magnesium citrate 300mL po x 1 prn * Adult immunization - Administer pneumonia vaccine, covid vaccine, flu vaccine as appropriate. * DVT prophylaxis - Aspirin 81mg daily. * Left displaced patella fracture - Left knee immobilizer, partial weight bearing, follow up with Ortho. * BPPV - Meclizine 25mg tid. * Hyperlipidemia - Atorvastatin 20mg qhs. * Coronary artery disease - Coreg 3.125mg bidcm, Asprin 81mg daily. * B12 deficiency - B12 1000mcg im qmonth. * Allergic rhinitis - Atrovent 0.06% 1 spray nasal bid, Loratadine 10mg daily. * Hypothyroidism - Levothyroxine 112mcg daily, Liothyronine 5mcg daily. * Skin irritation - Calmoseptine topical bid. * Tinea Corporis - Nystatin powder topical bid. * Depression - Increase Sertraline 150mg daily, stable chronic care home use, GDR not recommended. * Hyponatremia - Fluid restriction, Sodium chloride 2gm tid, monitor sodium, consider not using SSRI * K. Pneumoniae UTI - Cipro 250mg bid thru 01/07/2025. * Muscle spasm - Flexeril 5mg tid prn, qhs. * Iron deficiency anemia - Ferrex 150mg daily. * Indigestion - Mylanta 2 15mL po q4 prn. * Anxiety - Lorazepam 0.5mg q4h prn. * Insomnia - Melatonin 10mg qhs. * Calmoseptine topical bid. * Urinary retention - Tamsulosin 0.4mg daily.
[2025-01-05] MEDS: MELATONIN 10 MG TABLET PO (19:50)
[2025-01-05] MEDS: Atorvastatin Calcium 20 MG Tablet PO (19:50)
[2025-01-05] MEDS: oxyCODONE 5 MG Tablet PO (20:00)
[2025-01-06] MEDS: oxyCODONE 5 MG Tablet PO ×2 (03:55→23:51)
[2025-01-06] MEDS: Menthol/Lanolin/Calamine/Znox 113 GM Tube 1 APPLIC TOPICAL ×2 (04:53→17:56)
[2025-01-06] MEDS: Acetaminophen 500 MG Tablet 1000 MG PO ×3 (04:55→21:15)
[2025-01-06] MEDS: Levothyroxine 112 MCG Tablet PO (04:55)
[2025-01-06] MEDS: Meclizine HCl 25 MG Tablet PO ×3 (04:55→21:14)
[2025-01-06] MEDS: Sodium Chloride 1 GM Tablet 2 GM PO ×3 (04:55→21:14)
[2025-01-06] MEDS: LORazepam 0.5 MG Tablet PO ×3 (05:44→21:20)
--- NOTE | 2025-01-06 05:47 | NURSING ---
Presents in bed, requests my anxiety pill, fluid/food offered and accepted, T&R to promote comfort, denies need for toilet, television on to preferred channel, 1:1 provided, encouraged to express feelings, states I don't know why I get so anxious, I tried praying but it didn't help, I need my anxiety pill, feelings validated, non-pharmacologic interventions ineffective. PRN Ativan administered at this time per pt. request. Denies further requests. Call light in reach.
[2025-01-06] MEDS: Carvedilol 3.125 MG TABLET PO ×2 (09:18→17:55)
[2025-01-06] MEDS: Iron Polysaccharide Complex 150 MG CAPSULE PO (09:18)
[2025-01-06] MEDS: Aspirin E.C. 81 MG Tablet PO (09:18)
[2025-01-06] MEDS: Ipratropium Bromide 0.06% NASAL SPRAY 1 SPRAY NASAL ×2 (09:18→21:14)
[2025-01-06] MEDS: Senna/Docusate Sodium 1 Tablet 2 TABLET PO ×2 (09:20→21:14)
[2025-01-06] MEDS: Polyethylene Glycol 3350 17 GM PACKET PO (09:20)
[2025-01-06] MEDS: Loratadine 10 MG Tablet PO (09:20)
[2025-01-06] MEDS: Nystatin Powder 15gm Bottle 1 APPLIC TOPICAL ×2 (09:20→21:14)
[2025-01-06] MEDS: Ciprofloxacin 250 MG Tablet PO ×2 (09:20→21:14)
[2025-01-06] MEDS: Liothyronine 5 MCG Tablet PO (09:20)
[2025-01-06] MEDS: Sertraline 100 MG Tablet 150 MG PO (09:21)
[2025-01-06 09:27] VITALS: BP 124/61; PULSE 90; RESP 18; TEMP 36.6; O2SAT 95
[2025-01-06 10:38] VITALS: BMI 28.0
[2025-01-06] MEDS: Mag Hydrox/Al Hydrox/Simeth 30 ML UDC 15 ML PO (15:23)
--- NOTE | 2025-01-06 16:18 | NURSING ---
PT ANXIETY UP AND PT SHAKING COMPLAINING OF STOMACH BOTHERING HER. PRN MYLANTA GIVEN. PT THEN UPSET DUE TO NO BM IN 3 DAYS. PT AGREED TO TRY PRUNE JUICE AND BUTTER FIRST. WAS GIVEN AND THEN PT ASKED FOR ATIVAN DUE TO HER ANXIETY STILL HIGH. PRN ATIVAN GIVEN,COOL WASH CLOTH TO FORE HEAD AND REPOSITIONED. WILL CONTINUE TO MONITOR.
[2025-01-06] MEDS: Tamsulosin HCl 0.4 MG Capsule PO (17:56)
[2025-01-06 18:03] VITALS: BP 136/78; PULSE 76
[2025-01-06] MEDS: Atorvastatin Calcium 20 MG Tablet PO (21:14)
[2025-01-06] MEDS: MELATONIN 10 MG TABLET PO (21:14)
[2025-01-06] MEDS: cycloBENZAPRine HCl 5 MG TABLET PO (21:14)
[2025-01-07] MEDS: LORazepam 0.5 MG Tablet PO ×2 (01:57→17:17)
--- NOTE | 2025-01-07 02:08 | NURSING ---
Patient with c/o anxiety, Interventions attempted, redirected, 1:1, fluids given, positioned changed, room temp adjusted, interventions not effective per patient, patient requested and received PRN Ativan. call light left within reach,
--- NOTE | 2025-01-07 02:57 | NURSING ---
PRN Ativan is effective at time, patient resting quietly in bed with eyes closed, call light left within reach,
[2025-01-07] MEDS: Menthol/Lanolin/Calamine/Znox 113 GM Tube 1 APPLIC TOPICAL ×2 (05:28→17:14)
[2025-01-07] MEDS: Meclizine HCl 25 MG Tablet PO ×3 (05:28→20:52)
[2025-01-07] MEDS: Sodium Chloride 1 GM Tablet 2 GM PO ×3 (05:29→20:56)
[2025-01-07] MEDS: Levothyroxine 112 MCG Tablet PO (05:29)
[2025-01-07] MEDS: Acetaminophen 500 MG Tablet 1000 MG PO ×3 (05:30→20:56)
[2025-01-07] MEDS: oxyCODONE 5 MG Tablet PO (05:32)
[2025-01-07] MEDS: Magnesium Citrate 300 ML PO (05:33)
--- NOTE | 2025-01-07 05:41 | NURSING ---
Patient accepted Mag citrate for bowel protocol.
[2025-01-07 06:47] VITALS: PULSE 68; O2SAT 98
[2025-01-07] MEDS: Ipratropium Bromide 0.06% NASAL SPRAY 1 SPRAY NASAL ×2 (09:31→20:51)
[2025-01-07] MEDS: Ciprofloxacin 250 MG Tablet PO (09:32)
[2025-01-07] MEDS: Aspirin E.C. 81 MG Tablet PO (09:32)
[2025-01-07] MEDS: Iron Polysaccharide Complex 150 MG CAPSULE PO (09:32)
[2025-01-07] MEDS: Carvedilol 3.125 MG TABLET PO ×2 (09:32→17:15)
[2025-01-07] MEDS: Nystatin Powder 15gm Bottle 1 APPLIC TOPICAL ×2 (09:33→20:55)
[2025-01-07] MEDS: Loratadine 10 MG Tablet PO (09:33)
[2025-01-07] MEDS: Liothyronine 5 MCG Tablet PO (09:33)
[2025-01-07] MEDS: Senna/Docusate Sodium 1 Tablet 2 TABLET PO ×2 (09:33→20:55)
[2025-01-07] MEDS: Polyethylene Glycol 3350 17 GM PACKET PO (09:33)
[2025-01-07] MEDS: Sertraline 100 MG Tablet 150 MG PO (09:34)
[2025-01-07 09:43] VITALS: BP 119/65; PULSE 71; RESP 18; TEMP 36.5; O2SAT 100
--- NOTE | 2025-01-07 11:59 | CASEMGMT ---
Social Work IDT met in [facility] and discussed pt's limited progress. The DC recommendation has not changed from a TCU. Requested to further DC planning. - SW phoned son to inquire about SNF choices. Son provided: [facility]. SW provided update to son on limited progress recently and pt will be admitted for 30 days. SW to send referrals to SNFs and once there is an accepting facility, a DC date can be set over the next week. Son expressed understanding and agreed. - [facility] sent referrals via CarePort. Will continue to follow. Lary Isabel AUTOMATIC BANDSAW TENDER CALL OR CONTACT CENTRE TEAM LEADER
[2025-01-07] MEDS: Mag Hydrox/Al Hydrox/Simeth 30 ML UDC 15 ML PO (14:17)
[2025-01-07] MEDS: Tamsulosin HCl 0.4 MG Capsule PO (17:15)
[2025-01-07 17:20] VITALS: BP 138/73; PULSE 74
[2025-01-07] MEDS: Atorvastatin Calcium 20 MG Tablet PO (20:53)
[2025-01-07] MEDS: cycloBENZAPRine HCl 5 MG TABLET PO (20:53)
[2025-01-07] MEDS: Clotrimazole/Betamethasone 1 Tube 1 APPLIC TOPICAL (20:53)
[2025-01-07] MEDS: MELATONIN 10 MG TABLET PO (20:55)
--- NOTE | 2025-01-07 22:00 | NURSING ---
Patient received soap suds enema at 2114 per order, tolerated well, Large results noted from enema.
[2025-01-08] MEDS: LORazepam 0.5 MG Tablet PO ×2 (00:16→16:17)
--- NOTE | 2025-01-08 00:51 | NURSING ---
PRN Ativan is effective at time, patient resting quietly in bed with eyes closed, call light left within reach,
[2025-01-08] MEDS: Menthol/Lanolin/Calamine/Znox 113 GM Tube 1 APPLIC TOPICAL ×2 (05:23→17:30)
[2025-01-08] MEDS: cycloBENZAPRine HCl 5 MG TABLET PO ×2 (05:26→21:02)
[2025-01-08] MEDS: Acetaminophen 500 MG Tablet 1000 MG PO ×3 (05:27→21:01)
[2025-01-08] MEDS: Sodium Chloride 1 GM Tablet 2 GM PO ×3 (05:27→21:01)
[2025-01-08] MEDS: Meclizine HCl 25 MG Tablet PO ×3 (05:27→21:02)
[2025-01-08] MEDS: Levothyroxine 112 MCG Tablet PO (05:31)
[2025-01-08 07:40] VITALS: BP 165/89; PULSE 78; RESP 16; TEMP 36.2; O2SAT 97
[2025-01-08] MEDS: Aspirin E.C. 81 MG Tablet PO (07:43)
[2025-01-08] MEDS: Polyethylene Glycol 3350 17 GM PACKET PO (07:43)
[2025-01-08] MEDS: Iron Polysaccharide Complex 150 MG CAPSULE PO (07:43)
[2025-01-08] MEDS: Loratadine 10 MG Tablet PO (07:43)
[2025-01-08] MEDS: Nystatin Powder 15gm Bottle 1 APPLIC TOPICAL ×2 (07:43→21:02)
[2025-01-08] MEDS: Carvedilol 3.125 MG TABLET PO ×2 (07:43→17:29)
[2025-01-08] MEDS: Senna/Docusate Sodium 1 Tablet 2 TABLET PO ×2 (07:43→21:02)
[2025-01-08] MEDS: Sertraline 100 MG Tablet 150 MG PO (07:44)
[2025-01-08] MEDS: Liothyronine 5 MCG Tablet PO (07:45)
[2025-01-08] MEDS: Clotrimazole/Betamethasone 1 Tube 1 APPLIC TOPICAL ×2 (07:46→21:02)
[2025-01-08] MEDS: Ipratropium Bromide 0.06% NASAL SPRAY 1 SPRAY NASAL ×2 (07:47→21:02)
--- NOTE | 2025-01-08 10:31 | CASEMGMT ---
Social Work SW received call from son stating he toured [facility] and [facility] and to remove both as options. SW informed [facility] does not have beds and [facility] accepted. [facility] also accepted. Son stated he will tour [facility], [facility] and [facility]. SW to place referrals to [facility] and [facility] and notify of outcome. Son appreciative. - SW canceled [facility]. Referred to [facility] and [facility] Lary Isabel MANAGER LANDSCAPE ARCADE GAME TECHNICIAN
[2025-01-08 17:28] VITALS: BP 158/72; PULSE 71
[2025-01-08] MEDS: Tamsulosin HCl 0.4 MG Capsule PO (17:29)
[2025-01-08] MEDS: MELATONIN 10 MG TABLET PO (21:02)
[2025-01-08] MEDS: Atorvastatin Calcium 20 MG Tablet PO (21:02)
[2025-01-09] MEDS: oxyCODONE 5 MG Tablet PO ×2 (01:08→08:56)
[2025-01-09] MEDS: LORazepam 0.5 MG Tablet PO ×4 (02:55→20:22)
[2025-01-09] MEDS: Sodium Chloride 1 GM Tablet 2 GM PO ×3 (05:41→21:32)
[2025-01-09] MEDS: Levothyroxine 112 MCG Tablet PO (05:41)
[2025-01-09] MEDS: Meclizine HCl 25 MG Tablet PO ×3 (05:41→21:31)
[2025-01-09] MEDS: Acetaminophen 500 MG Tablet 1000 MG PO ×3 (05:41→21:32)
[2025-01-09] MEDS: Menthol/Lanolin/Calamine/Znox 113 GM Tube 1 APPLIC TOPICAL ×2 (05:41→16:18)
[2025-01-09 06:05] LABS: Absolute Lymphocyte Count 1.17 X10^3/uL (0.83-4.51); Absolute Neutrophil Count 2.5 X10^3/uL (2.0-7.7); Basophil# 0.04 X10^3/uL; Basophil% 0.9 % (0-1); Eosinophil# 0.31 X10^3/uL; Hematocrit 33.1 % (37-47); Hemoglobin 10.9 g/dL (12.0-15.0); Lymphocyte # 1.17 X10^3/ul (0.83-4.51); Lymphocyte % 26.2 % (19-41); Mean Corp Hgb Conc 32.9 g/dL (32-36); Mean Corpuscular Hgb 30.1 pg (27.0-32.0); Mean Corpuscular Volume 91.4 fL (81-99); Mean Platelet Vol. 9.4 fl (6.2-12.0); Monocyte# 0.47 X10^3/uL; Monocyte% 10.5 % (0-10); NRBC Flagged by Analyzer 0 % (0-5); Neutrophil # 2.45 X10^3/uL (2.7-7.7); Platelet Count 318 K/mm3 (150-450); RBC Distribution Width CV 14.1 % (11.6-14.6); RBC Distribution Width SD 47.6 fl (35.1-43.9); Red Blood Count 3.62 M/mm3 (4.2-5.4); White Blood Count 4.5 K/mm3 (4.4-11.0)
[2025-01-09 07:48] LABS: Anion Gap 11 (5-15); BUN 15 mg/dL (4-19); BUN/Creat Ratio 20.7 RATIO (10-20); Carbon Dioxide 23.2 mmol/L (21.0-32.0); Chloride 104 mmol/L (98-108); Creatinine, Serum 0.74 mg/dL (0.70-1.20); EST Glomerular Filtration Rate 82 (>60); Estimated Creatinine Clearance 58.45 ml/min (50-250); Glucose 96 mg/dL (70-99); Potassium 3.7 mmol/L (3.3-5.1); Sodium Level 137 mmol/L (133-145)
[2025-01-09] MEDS: Mag Hydrox/Al Hydrox/Simeth 30 ML UDC 15 ML PO (08:51)
[2025-01-09] MEDS: Aspirin E.C. 81 MG Tablet PO (08:57)
[2025-01-09] MEDS: Iron Polysaccharide Complex 150 MG CAPSULE PO (08:57)
[2025-01-09] MEDS: Loratadine 10 MG Tablet PO (08:58)
[2025-01-09] MEDS: Polyethylene Glycol 3350 17 GM PACKET PO (08:58)
[2025-01-09] MEDS: Nystatin Powder 15gm Bottle 1 APPLIC TOPICAL ×2 (08:58→21:30)
[2025-01-09] MEDS: Senna/Docusate Sodium 1 Tablet 2 TABLET PO ×2 (08:59→21:32)
[2025-01-09] MEDS: Sertraline 100 MG Tablet 150 MG PO (08:59)
[2025-01-09] MEDS: Carvedilol 3.125 MG TABLET PO ×2 (09:01→16:15)
[2025-01-09] MEDS: Clotrimazole/Betamethasone 1 Tube 1 APPLIC TOPICAL ×2 (09:28→21:31)
[2025-01-09] MEDS: Ipratropium Bromide 0.06% NASAL SPRAY 1 SPRAY NASAL ×2 (09:29→21:31)
[2025-01-09] MEDS: Liothyronine 5 MCG Tablet PO (10:48)
[2025-01-09 11:35] VITALS: PULSE 77; RESP 14; O2SAT 94
[2025-01-09 16:00] VITALS: BP 154/72; PULSE 77
[2025-01-09] MEDS: Tamsulosin HCl 0.4 MG Capsule PO (16:15)
[2025-01-09] MEDS: Atorvastatin Calcium 20 MG Tablet PO (21:31)
[2025-01-09] MEDS: cycloBENZAPRine HCl 5 MG TABLET PO (21:31)
[2025-01-09] MEDS: Doxepin Hydrochloride 10 MG Capsule PO (21:32)
[2025-01-10] MEDS: oxyCODONE 5 MG Tablet PO ×2 (00:06→04:17)
[2025-01-10] MEDS: LORazepam 0.5 MG Tablet PO ×2 (03:13→13:03)
--- NOTE | 2025-01-10 03:17 | NURSING ---
Pt continues to not sleep at night and is very anxious/restless throughout this shift, calling out to staff every 5-10 minutes. Redirection, 1:1, medication, fluids given, repositioned with effective result for short period of time only.
[2025-01-10] MEDS: Sodium Chloride 1 GM Tablet 2 GM PO ×2 (06:10→13:03)
[2025-01-10] MEDS: Meclizine HCl 25 MG Tablet PO ×2 (06:10→13:03)
[2025-01-10] MEDS: Menthol/Lanolin/Calamine/Znox 113 GM Tube 1 APPLIC TOPICAL ×2 (06:10→16:47)
[2025-01-10] MEDS: Levothyroxine 112 MCG Tablet PO (06:10)
[2025-01-10] MEDS: Acetaminophen 500 MG Tablet 1000 MG PO ×3 (06:10→22:57)
[2025-01-10] MEDS: Mag Hydrox/Al Hydrox/Simeth 30 ML UDC 15 ML PO (06:49)
[2025-01-10] MEDS: Aspirin E.C. 81 MG Tablet PO (07:54)
[2025-01-10] MEDS: Carvedilol 3.125 MG TABLET PO (07:54)
[2025-01-10] MEDS: Iron Polysaccharide Complex 150 MG CAPSULE PO (07:55)
[2025-01-10] MEDS: Sertraline 100 MG Tablet 150 MG PO (07:55)
[2025-01-10] MEDS: Loratadine 10 MG Tablet PO (07:55)
[2025-01-10] MEDS: Liothyronine 5 MCG Tablet PO (07:55)
[2025-01-10] MEDS: Polyethylene Glycol 3350 17 GM PACKET PO (07:55)
[2025-01-10] MEDS: Senna/Docusate Sodium 1 Tablet 2 TABLET PO ×2 (07:55→22:57)
[2025-01-10] MEDS: Ipratropium Bromide 0.06% NASAL SPRAY 1 SPRAY NASAL ×2 (07:55→22:53)
[2025-01-10] MEDS: Clotrimazole/Betamethasone 1 Tube 1 APPLIC TOPICAL (07:56)
[2025-01-10] MEDS: Nystatin Powder 15gm Bottle 1 APPLIC TOPICAL ×2 (07:56→22:54)
[2025-01-10 09:46] VITALS: BP 130/66; PULSE 79; RESP 18; TEMP 36.5; O2SAT 96
[2025-01-10] MEDS: clonazePAM 1 MG Tablet 2 MG PO (16:47)
[2025-01-10] MEDS: Tamsulosin HCl 0.4 MG Capsule PO (16:47)
[2025-01-10] MEDS: Carvedilol 6.25 MG Tablet PO (16:47)
--- NOTE | 2025-01-10 19:38 | NURSING ---
Gill cath removed per order, patient tolerated well.
[2025-01-10 22:00] VITALS: PULSE 68; O2SAT 99
[2025-01-10] MEDS: cycloBENZAPRine HCl 10 MG Tablet PO (22:59)
[2025-01-10] MEDS: clonazePAM 1 MG Tablet PO (23:02)
[2025-01-11] MEDS: Acetaminophen 500 MG Tablet 1000 MG PO ×3 (05:12→21:01)
[2025-01-11] MEDS: Levothyroxine 112 MCG Tablet PO (05:12)
[2025-01-11] MEDS: Menthol/Lanolin/Calamine/Znox 113 GM Tube 1 APPLIC TOPICAL ×2 (05:12→17:11)
[2025-01-11 05:32] LABS: Absolute Lymphocyte Count 1.28 X10^3/uL (0.83-4.51); Basophil# 0.03 X10^3/uL; Basophil% 0.8 % (0-1); Eosinophils% 7.6 % (0-5); Hematocrit 37.6 % (37-47); Lymphocyte # 1.28 X10^3/ul (0.83-4.51); Lymphocyte % 32.5 % (19-41); Mean Corp Hgb Conc 31.9 g/dL (32-36); Mean Corpuscular Hgb 29.9 pg (27.0-32.0); Mean Corpuscular Volume 93.5 fL (81-99); Mean Platelet Vol. 9.4 fl (6.2-12.0); Monocyte# 0.36 X10^3/uL; Monocyte% 9.1 % (0-10); NRBC Flagged by Analyzer 0 % (0-5); Neutrophil # 1.96 X10^3/uL (2.7-7.7); Neutrophil % 49.7 % (47-70); Platelet Count 336 K/mm3 (150-450); RBC Distribution Width SD 48.6 fl (35.1-43.9); Red Blood Count 4.02 M/mm3 (4.2-5.4); White Blood Count 3.9 K/mm3 (4.4-11.0)
[2025-01-11 06:48] VITALS: PULSE 66; O2SAT 97
[2025-01-11 07:14] LABS: Anion Gap 10 (5-15); BUN 15 mg/dL (4-19); BUN/Creat Ratio 24.5 RATIO (10-20); Calcium,Total 9.3 mg/dL (7.6-11.0); Carbon Dioxide 26.4 mmol/L (21.0-32.0); Chloride 104 mmol/L (98-108); Creatinine, Serum 0.62 mg/dL (0.70-1.20); EST Glomerular Filtration Rate 89 (>60); Estimated Creatinine Clearance 58.45 ml/min (50-250); Glucose 93 mg/dL (70-99); Sodium Level 141 mmol/L (133-145)
[2025-01-11] MEDS: Polyethylene Glycol 3350 17 GM PACKET PO (08:27)
[2025-01-11] MEDS: Nystatin Powder 15gm Bottle 1 APPLIC TOPICAL ×2 (08:27→21:00)
[2025-01-11] MEDS: Ipratropium Bromide 0.06% NASAL SPRAY 1 SPRAY NASAL ×2 (08:27→20:56)
[2025-01-11] MEDS: Sertraline 100 MG Tablet PO (08:27)
[2025-01-11] MEDS: Senna/Docusate Sodium 1 Tablet 2 TABLET PO ×2 (08:27→21:00)
[2025-01-11] MEDS: Carvedilol 6.25 MG Tablet PO ×2 (08:27→17:07)
[2025-01-11] MEDS: clonazePAM 1 MG Tablet PO ×2 (08:27→21:05)
[2025-01-11 10:11] VITALS: BP 162/75; PULSE 65; RESP 17; TEMP 36.4; O2SAT 96
[2025-01-11] MEDS: Losartan Potassium 100 MG Tablet PO (11:57)
[2025-01-11] MEDS: Tamsulosin HCl 0.4 MG Capsule PO (17:07)
[2025-01-11] MEDS: cycloBENZAPRine HCl 10 MG Tablet PO (21:01)
[2025-01-11] MEDS: oxyCODONE 5 MG Tablet PO (21:05)
[2025-01-12] MEDS: Menthol/Lanolin/Calamine/Znox 113 GM Tube 1 APPLIC TOPICAL ×2 (05:41→17:28)
[2025-01-12] MEDS: Levothyroxine 112 MCG Tablet PO (05:43)
[2025-01-12] MEDS: Acetaminophen 500 MG Tablet 1000 MG PO ×3 (05:43→22:16)
[2025-01-12 10:27] VITALS: BP 126/63; PULSE 69; RESP 16; TEMP 36.2; O2SAT 98
[2025-01-12] MEDS: Losartan Potassium 100 MG Tablet PO (10:30)
[2025-01-12] MEDS: Sertraline 100 MG Tablet PO (10:30)
[2025-01-12] MEDS: Nystatin Powder 15gm Bottle 1 APPLIC TOPICAL ×2 (10:31→22:18)
[2025-01-12] MEDS: Senna/Docusate Sodium 1 Tablet 2 TABLET PO ×2 (10:31→22:17)
[2025-01-12] MEDS: Polyethylene Glycol 3350 17 GM PACKET PO (10:31)
[2025-01-12] MEDS: Carvedilol 6.25 MG Tablet PO ×2 (10:31→17:29)
[2025-01-12] MEDS: Ipratropium Bromide 0.06% NASAL SPRAY 1 SPRAY NASAL ×2 (10:32→22:18)
[2025-01-12] MEDS: clonazePAM 1 MG Tablet PO ×2 (10:34→22:21)
--- NOTE | 2025-01-12 11:03 | CASEMGMT ---
Addendum entered by Lary Isabel 01/12/25 11:39: Received return call from son stating [facility] if FOC. Son does not have a preference on DC date. - SW updated [facility] and inquired about date for bed availability. [facility] requested 01/13. IDT agreeable. SW to coordinate cot transport and complete PASRR. Original Note: Social Work SW left VM with son to discuss SNF FOC and set DC date. Lary Isabel PLATFORM OPERATIONS DIRECTOR RETAIL MANAGEMENT KEYHOLDER
--- NOTE | 2025-01-12 12:03 | CASEMGMT ---
Social Work SW spoke with pt and son. Notified of DC 01/13. All in agreement. SW scheduled cot transport through [facility] for 1300. PASRR completed. SW updated [facility]. Canceled [facility] and [facility]. IDT updated. Plan: DC 01/13 to [facility] SNF, intermediate, private pay, part B therapies Lary Isabel FOOD WRITER SENIOR RESTAURANT MANAGER
--- NOTE | 2025-01-12 14:42 | CASEMGMT ---
Social Work SW completed BIMS () and PHQ-9 () for MDS assessment. Lary Isabel SENIOR DRAFTER AIR DEFENSE ARTILLERY SENIOR SERGEANT
[2025-01-12] MEDS: oxyCODONE 5 MG Tablet PO (16:09)
[2025-01-12] MEDS: Tamsulosin HCl 0.4 MG Capsule PO (17:29)
--- NOTE | 2025-01-12 19:28 | PCM.DC.SUM ---
Providers Date of Admission: 12/11/24 Primary Care Physician: Dr. Maria Del Carmen Darby DO Reason For Visit: FALLL/PATELLA FRACTURE Diagnosis Discharge Diagnosis (1) Debility: Status: Acute Code(s): R53.81 - Other malaise (2) Syncope: Status: Inactive Code(s): R55 - Syncope and collapse Qualifiers: Syncope type: unspecified Qualified Code(s): R55 - Syncope and collapse (3) Orthostatic hypotension: Status: Acute Code(s): I95.1 - Orthostatic hypotension (4) BPPV (benign paroxysmal positional vertigo): Status: Acute Code(s): H81.10 - Benign paroxysmal vertigo, unspecified ear (5) Closed fracture of left patella: Status: Inactive Code(s): S82.002A - Unspecified fracture of left patella, initial encounter for closed fracture (6) Elevated troponin: Status: Inactive Code(s): R79.89 - Other specified abnormal findings of blood chemistry (7) Hyponatremia: Status: Acute Code(s): E87.1 - Hypo-osmolality and hyponatremia (8) Essential (primary) hypertension: Status: Acute Code(s): I10 - Essential (primary) hypertension (9) Hyperlipidemia: Status: Chronic Code(s): E78.5 - Hyperlipidemia, unspecified (10) CAD (coronary artery disease): Status: Chronic Code(s): I25.10 - Atherosclerotic heart disease of [place] coronary artery without angina pectoris (11) Osteoarthritis: Status: Acute Code(s): M19.90 - Unspecified osteoarthritis, unspecified site (12) Allergic rhinitis: Status: Acute Code(s): J30.9 - Allergic rhinitis, unspecified (13) Depression: Status: Acute Code(s): F32.A - Depression, unspecified (14) Hypothyroidism: Status: Acute Code(s): E03.9 - Hypothyroidism, unspecified Plan 79 year old female with below past medical history hospitalized for left displaced patella fracture, syncope, orthostatic hypotension, bppv, complicated by elevated troponin, hyponatremia, nsvt, admitted to TCU with debility, here for rehabilitation, strengthening, prior to disposition determination. Debility - PT/OT. Cognition - ST. Pain - Tylenol 1000mg q8, Oxycodone 5mg q6 prn pain (4-10) Bowel - Miralax 17gm daily, senna/colace 2 tablets bid, Magnesium citrate 300mL po x 1 prn Adult immunization - Administer pneumonia vaccine, covid vaccine, flu vaccine as appropriate. DVT prophylaxis - Aspirin 81mg daily. Left displaced patella fracture - Left knee immobilizer, partial weight bearing, follow up with Ortho. BPPV - Meclizine 25mg tid. Hyperlipidemia - Atorvastatin 20mg qhs. Coronary artery disease - Coreg 3.125mg bidcm, Asprin 81mg daily. B12 deficiency - B12 1000mcg im qmonth. Allergic rhinitis - Atrovent 0.06% 1 spray nasal bid, Loratadine 10mg daily. Hypothyroidism - Levothyroxine 112mcg daily, Liothyronine 5mcg daily. Skin irritation - Calmoseptine topical bid. Tinea Corporis - Nystatin powder topical bid. 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 Hyponatremia - Fluid restriction, Sodium chloride 2gm tid, monitor sodium, consider not using SSRI K. Pneumoniae UTI - Cipro 250mg bid thru 01/07/2025. Muscle spasm - Flexeril 5mg tid prn, qhs. Iron deficiency anemia - Ferrex 150mg daily. Indigestion - Mylanta 2 15mL po q4 prn. Anxiety - Lorazepam 0.5mg q4h prn. Insomnia - Melatonin 10mg qhs. Calmoseptine topical bid. Urinary retention - Tamsulosin 0.4mg daily. Medications at Discharge Home Medications sertraline 100 mg tablet 100 mg PO QDAY 03/11/24 acetaminophen 500 mg tablet 1,000 mg (2 x 500 mg) PO Q8 #0 tabs 01/12/25 carvedilol 6.25 mg tablet 6.25 mg PO BIDCM #0 tabs 01/12/25 clonazepam 1 mg tablet 1 mg PO QHS 3 days #3 tabs 01/12/25 cyclobenzaprine 10 mg tablet 10 mg PO QHS #0 tabs 01/12/25 cyclobenzaprine 10 mg tablet 10 mg PO TID PRN Muscle Spasm #0 tabs 01/12/25 ipratropium bromide 42 mcg (0.06 %) nasal spray 1 spray NASAL BID #0 mL 01/12/25 levothyroxine 112 mcg tablet 112 mcg PO DAILY@0600 #0 tabs 01/12/25 losartan 100 mg tablet 100 mg PO DAILY #0 tabs 01/12/25 magnesium citrate 300 ml PO X1 PRN Constipation #0 mL 01/12/25 menthol 0.44 %-zinc oxide 20.6 % topical ointment (Calmoseptine) 1 applic topical 0600,1800 #0 grams 01/12/25 nystatin 100,000 unit/gram topical powder (Nyamyc) 1 applic topical BID #0 grams 01/12/25 oxycodone 5 mg tablet 5 mg PO Q4H PRN Pain Score 4-10 3 days #18 tabs 01/12/25 sennosides 8.6 mg-docusate sodium 50 mg tablet (Stimulant Laxative Plus) 2 tab PO BID #0 tabs 01/12/25 tamsulosin 0.4 mg capsule 0.4 mg PO DAILY@1730 #0 caps 01/12/25 Hospital Course Operations None Procedures None Summary of Care Provided Minutes Spent on Discharge: 35 Hospital Course: 79 year old female with below past medical history hospitalized for left displaced patella fracture, syncope, orthostatic hypotension, bppv, complicated by elevated troponin, hyponatremia, nsvt, admitted to TCU with debility, here for rehabilitation, strengthening, prior to disposition determination. Resident failed voiding trials, recommend voiding trials in near future. Discharge 01/13/2025 to [facility], intermediate, private pay, part B therapies. Physical Exam Const alert General Appearance: cooperative HEENT normocephalic Eyes PERRL and EOMs intact bilaterally Neck supple, no JVD and no carotid bruits Resp normal respiratory effort, normal air movement and clear to auscultation bilaterally Cardio regular rate and regular rhythm GI normal to inspection, nondistended, normoactive bowel sounds, non-tender and non-distended Bladder / Kidney Exam: catheter in place urethral Extremity normal capillary refill Extremity Narrative: Left knee immobilizer. General Extremity: Negative for edema Skin no rashes or lesions noted General Skin Exam: no breakdown Psych affect normal Appearance: appropriate Weight / BMI Weight Weight: 78.88 kg Body Mass Index (BMI) 28.0 ABG / Lab / Microbiology Data 01/11/25 04:43 01/11/25 04:43 Microbiology: Microbiology 12/30/24 10:25 Urine Catheter - Catheter Urine Culture - Final Klebsiella pneumoniae sp pneum 12/17/24 11:00 Urine Catheter - Catheter Urine Culture - Final Granulicatella elegans 12/19/24 16:10 Stool Stool Occult Blood (ROBBIE) - Final D/C Instructions Discharge Diet: No restrictions Discharge Activity: Return to Normal Activity, May Shower and Use Walker Weight Bearing Status: Partial weight bearing (Left lower extremity. ) Call your doctor if you observe: Fever of 101 or Higher, Inability to urinate, Inability to have a bowel movement, Shortness of breath, Dizziness, Fainting spells, Swelling in the ankles, Chest pain and Uncontrolled pain DC O2, CPAP, BIPAP Needs Home O2 Discharge instructions: No Please Follow Up With: Ghulam Dozier (will see MEKHI Longo) When: As scheduled. Meaningful Use Info Meaningful Use Meaningful Use Diagnoses (Choose all that apply): None applicable Ischemic Stroke Statin Dosing Therapy Reference: STATIN DOSE THERAPY REFERENCE: * Patients > 75 years receive moderate or high dose statin therapy. * Patients 75 years or YOUNGER should receive HIGH intensity statin dose unless contraindicated. You will be required to document reason for non-treatment if statin daily dose does not meet guidelines. HIGH DOSE STATIN THERAPY DAILY Atorvastatin > than or = to 40 mg Rosuvastatin > than or = to 20 mg Amlodipine + Atorvastatin > than or = to 2.5/40 mg Ezetimibe + Simvastatin 10/80 mg Simvastatin 80mg Discharge Plan Admission Admit Date/Time: 12/11/24 16:17 Primary Reason for Your Visit: Debility. Attending Provider: Juan Diego Marks Chi Primary Care Provider: Maria Del Carmen Darby Instructions Additional Instructions / Restrictions: Discharge 01/13/2025 to [facility], intermediate, private pay, part B therapies. Discharge Orders/Prescriptions Prescriptions: New acetaminophen 500 mg Tablet 1,000 mg PO Q8 Qty: 0 0RF cyclobenzaprine 10 mg Tablet 10 mg PO QHS Qty: 0 0RF cyclobenzaprine 10 mg Tablet 10 mg PO TID PRN (Reason: Muscle Spasm) Qty: 0 0RF carvedilol 6.25 mg Tablet 6.25 mg PO BIDCM Qty: 0 0RF clonazepam 1 mg Tablet 1 mg PO QHS 3 Days Qty: 3 0RF magnesium citrate Solution 300 ml PO X1 PRN (Reason: Constipation) Qty: 0 0RF ipratropium bromide 42 mcg (0.06 %) [place],Non-Aerosol 1 spray NASAL BID Qty: 0 0RF losartan 100 mg Tablet 100 mg PO DAILY Qty: 0 0RF levothyroxine 112 mcg Tablet 112 mcg PO DAILY@0600 Qty: 0 0RF menthol-zinc oxide [Calmoseptine] 0.44-20.6 % Ointment 1 applic topical 0600,1800 Qty: 0 0RF Protocol: *Topical Application Instructions APPLICATION INSTRUCTIONS: bilat buttocks sennosides-docusate sodium [Stimulant Laxative Plus] 8.6-50 mg Tablet 2 tab PO BID Qty: 0 0RF nystatin [Nyamyc] 100,000 unit/gram Powder 1 applic topical BID Qty: 0 0RF Protocol: *Topical Application Instructions APPLICATION INSTRUCTIONS: groin/under breasts oxycodone 5 mg Tablet 5 mg PO Q4H PRN (Reason: Pain Score 4-10) 3 Days Qty: 18 0RF tamsulosin 0.4 mg Capsule 0.4 mg PO DAILY@1730 Qty: 0 0RF Continued sertraline 100 mg tablet 100 mg PO QDAY Discontinued Caltrate 600-D Plus Minerals 600 mg calcium- 800 unit-40 mg tablet,chewable 1 tab PO BID cyanocobalamin (vitamin B-12) 1,000 mcg capsule 1,000 mcg PO QMONTH Rx Instructions: pt takes once a month at primary office aspirin [Adult Aspirin Regimen] 81 mg tablet,delayed release (DR/EC) 81 mg PO DAILY Qty: 90 3RF levocetirizine 5 mg tablet 5 mg PO QDAY ipratropium bromide 21 mcg (0.03 %) spray,non-aerosol 2 spray intranasal BID Patient Comments: [NO ORIGINAL SIG] levothyroxine 125 mcg tablet 112 mcg PO QDAY liothyronine 5 mcg tablet 5 mcg PO QDAY atorvastatin 20 mg tablet 20 mg PO DAILY Patient Comments: take 1 tablet by mouth once daily carvedilol 3.125 mg tablet 3.125 mg PO BID meclizine 25 mg Tablet 25 mg PO TID Qty: 90 2RF acetaminophen [Tylenol] 325 mg tablet 650 mg PO Q6H PRN (Reason: pain) Qty: 30 1RF aspirin 81 mg tablet,delayed release (DR/EC) 81 mg PO BID 14 Days Qty: 28 0RF oxycodone 5 mg Tablet 5 mg PO Q6H PRN PRN (Reason: Pain Score 4-10) 3 Days Qty: 12 0RF sodium chloride 1,000 mg Tablet,Soluble 2,000 mg PO TID 30 Days Qty: 180 0RF olmesartan 40 mg tablet 40 mg PO DAILY Qty: 90 3RF Referrals / Follow Up: Maria Del Carmen Darby DO [Primary Care Provider] - Luis Dozier MD [Med Staff - Active Staff] - 01/16/25 10:00 am (Will see MEKHI White) Disposition Disposition (needs filled in before D/C Order can be placed): NonSkilled NH/Intermed Care
--- NOTE | 2025-01-12 19:37 | TREXTCAR_ITS ---
Diet Diet Order/Speech Therapy: 12/11/24 16:36 Diet: Regular - General Food consistency:: Regular Liquid Consistency:: Regular/Thin Type of Dietary Supplement:: Ensure Clear Diet Comments: Ensure Clear 1x/day w/ bfast, MAGIC CUP w/ lunch and dinner Routine Orders/Code Status Code Status: DNRCC-A (No intubation.) DC O2, CPAP, BIPAP needs Home O2 Discharge instructions: No Wound(s) right buttock- scratch: Wound Type: scratch, healing Dressing Change: dilshad BLISTER-RT FOOT: Wound Type: Intact blister r lateral hand: Wound Type: healing scabbed area Therapies Weight Bearing: Partial weight bearing (Left lower extremity.) Extremity Affected:: Bilateral Lower Physical Therapy: Eval and Treat Occupational Therapy: Eval and Treat Speech Therapy: Eval and Treat Problem/Diagnosis (1) Debility: Status: Acute Code(s): R53.81 - Other malaise (2) Syncope: Status: Inactive Code(s): R55 - Syncope and collapse (3) Orthostatic hypotension: Status: Acute Code(s): I95.1 - Orthostatic hypotension (4) BPPV (benign paroxysmal positional vertigo): Status: Acute Code(s): H81.10 - Benign paroxysmal vertigo, unspecified ear (5) Closed fracture of left patella: Status: Inactive Code(s): S82.002A - Unspecified fracture of left patella, initial encounter for closed fracture (6) Elevated troponin: Status: Inactive Code(s): R79.89 - Other specified abnormal findings of blood chemistry (7) Hyponatremia: Status: Acute Code(s): E87.1 - Hypo-osmolality and hyponatremia (8) Essential (primary) hypertension: Status: Acute Code(s): I10 - Essential (primary) hypertension (9) Hyperlipidemia: Status: Chronic Code(s): E78.5 - Hyperlipidemia, unspecified (10) CAD (coronary artery disease): Status: Chronic Code(s): I25.10 - Atherosclerotic heart disease of [place] coronary artery without angina pectoris (11) Osteoarthritis: Status: Acute Code(s): M19.90 - Unspecified osteoarthritis, unspecified site (12) Allergic rhinitis: Status: Acute Code(s): J30.9 - Allergic rhinitis, unspecified (13) Depression: Status: Acute Code(s): F32.A - Depression, unspecified (14) Hypothyroidism: Status: Acute Code(s): E03.9 - Hypothyroidism, unspecified Plan 79 year old female with below past medical history hospitalized for left displ aced patella fracture, syncope, orthostatic hypotension, bppv, complicated by elevated troponin, hyponatremia, nsvt, admitted to TCU with debility, here for rehabilitation, strengthening, prior to disposition determination. * Debility - PT/OT. * Cognition - ST. * Pain - Tylenol 1000mg q8, Oxycodone 5mg q6 prn pain (4-10) * Bowel - Miralax 17gm daily, senna/colace 2 tablets bid, Magnesium citrate 300 mL po x 1 prn * Adult immunization - Administer pneumonia vaccine, covid vaccine, flu vaccine as appropriate. * DVT prophylaxis - Aspirin 81mg daily. * Left displaced patella fracture - Left knee immobilizer, partial weight bearing, follow up with Ortho. * BPPV - Meclizine 25mg tid. * Hyperlipidemia - Atorvastatin 20mg qhs. * Coronary artery disease - Coreg 3.125mg bidcm, Asprin 81mg daily. * B12 deficiency - B12 1000mcg im qmonth. * Allergic rhinitis - Atrovent 0.06% 1 spray nasal bid, Loratadine 10mg daily. * Hypothyroidism - Levothyroxine 112mcg daily, Liothyronine 5mcg daily. * Skin irritation - Calmoseptine topical bid. * Tinea Corporis - Nystatin powder topical bid. * Depression - Increase Sertraline 150mg daily, stable chronic residential use, GDR not recommended. * Hyponatremia - Fluid restriction, Sodium chloride 2gm tid, monitor sodium, consider not using SSRI * K. Pneumoniae UTI - Cipro 250mg bid thru 01/07/2025. * Muscle spasm - Flexeril 5mg tid prn, qhs. * Iron deficiency anemia - Ferrex 150mg daily. * Indigestion - Mylanta 2 15mL po q4 prn. * Anxiety - Lorazepam 0.5mg q4h prn. * Insomnia - Melatonin 10mg qhs. * Calmoseptine topical bid. * Urinary retention - Tamsulosin 0.4mg daily. Allergies/Procedures Done in Hospital Allergies propoxyphene HCl (From Darvon) Allergy (Verified 12/06/24 16:36) Nausea atorvastatin Adverse Reaction (Intermediate, Verified 12/06/24 16:36) myalgia codeine Adverse Reaction (Intermediate, Verified 12/06/24 16:36) Nausea simvastatin Adverse Reaction (Intermediate, Verified 12/06/24 16:36) Myalgia Procedures: None Type of Care/Length of Stay Estimated LOS: More Than 30 Days Type of Care Needed: Intermediate Rehab Potential: Poor Prognosis: Fair Additional Orders/Day of Discharge Additional Orders: part B therapies Day of Discharge: 01/15/25 Dietary and Speech Recommendations Dietitian Recommendations/Changes: Continue with liberal Regular diet with Ensure Clear once daily with breakfast (240mL) and magic cup w/ lunch and dinner for increased nutrition if consumed. Will continue to follow, monitor oral intakes and modify nutrition interventions as needed. Follow Up Care Please Follow Up With: Ghulam Dozier (will see MEKHI Longo) When: 1 week Discharge Plan Admission Admit Date/Time: 12/11/24 16:17 Primary Reason for Your Visit: Debility. Attending Provider: Juan Diego Marks Chi Primary Care Provider: Maria Del Carmen Darby Instructions Additional Instructions / Restrictions: Discharge 01/13/2025 to [facility], intermediate, private pay, part B therapies. Discharge Orders/Prescriptions Prescriptions: New acetaminophen 500 mg Tablet 1,000 mg PO Q8 Qty: 0 0RF cyclobenzaprine 10 mg Tablet 10 mg PO QHS Qty: 0 0RF cyclobenzaprine 10 mg Tablet 10 mg PO TID PRN (Reason: Muscle Spasm) Qty: 0 0RF carvedilol 6.25 mg Tablet 6.25 mg PO BIDCM Qty: 0 0RF clonazepam 1 mg Tablet 1 mg PO QHS 3 Days Qty: 3 0RF magnesium citrate Solution 300 ml PO X1 PRN (Reason: Constipation) Qty: 0 0RF ipratropium bromide 42 mcg (0.06 %) [place],Non-Aerosol 1 spray NASAL BID Qty: 0 0RF losartan 100 mg Tablet 100 mg PO DAILY Qty: 0 0RF levothyroxine 112 mcg Tablet 112 mcg PO DAILY@0600 Qty: 0 0RF menthol-zinc oxide [Calmoseptine] 0.44-20.6 % Ointment 1 applic topical 0600,1800 Qty: 0 0RF Protocol: *Topical Application Instructions APPLICATION INSTRUCTIONS: bilat buttocks sennosides-docusate sodium [Stimulant Laxative Plus] 8.6-50 mg Tablet 2 tab PO BID Qty: 0 0RF nystatin [Nyamyc] 100,000 unit/gram Powder 1 applic topical BID Qty: 0 0RF Protocol: *Topical Application Instructions APPLICATION INSTRUCTIONS: groin/under breasts oxycodone 5 mg Tablet 5 mg PO Q4H PRN (Reason: Pain Score 4-10) 3 Days Qty: 18 0RF tamsulosin 0.4 mg Capsule 0.4 mg PO DAILY@1730 Qty: 0 0RF Continued sertraline 100 mg tablet 100 mg PO QDAY Discontinued Caltrate 600-D Plus Minerals 600 mg calcium- 800 unit-40 mg tablet,chewable 1 tab PO BID cyanocobalamin (vitamin B-12) 1,000 mcg capsule 1,000 mcg PO QMONTH Rx Instructions: pt takes once a month at primary office aspirin [Adult Aspirin Regimen] 81 mg tablet,delayed release (DR/EC) 81 mg PO DAILY Qty: 90 3RF levocetirizine 5 mg tablet 5 mg PO QDAY ipratropium bromide 21 mcg (0.03 %) spray,non-aerosol 2 spray intranasal BID Patient Comments: [NO ORIGINAL SIG] levothyroxine 125 mcg tablet 112 mcg PO QDAY liothyronine 5 mcg tablet 5 mcg PO QDAY atorvastatin 20 mg tablet 20 mg PO DAILY Patient Comments: take 1 tablet by mouth once daily carvedilol 3.125 mg tablet 3.125 mg PO BID meclizine 25 mg Tablet 25 mg PO TID Qty: 90 2RF acetaminophen [Tylenol] 325 mg tablet 650 mg PO Q6H PRN (Reason: pain) Qty: 30 1RF aspirin 81 mg tablet,delayed release (DR/EC) 81 mg PO BID 14 Days Qty: 28 0RF oxycodone 5 mg Tablet 5 mg PO Q6H PRN PRN (Reason: Pain Score 4-10) 3 Days Qty: 12 0RF sodium chloride 1,000 mg Tablet,Soluble 2,000 mg PO TID 30 Days Qty: 180 0RF olmesartan 40 mg tablet 40 mg PO DAILY Qty: 90 3RF Referrals / Follow Up: Maria Del Carmen Darby DO [Primary Care Provider] - Luis Dozier MD [Med Staff - Active Staff] - 01/16/25 10:00 am (Will see MEKHI White) Disposition Disposition (needs filled in before D/C Order can be placed): NonSkilled NH/Intermed Care (2) Syncope Qualifiers: Syncope type: unspecified Qualified Code(s): R55 - Syncope and collapse
[2025-01-12] MEDS: cycloBENZAPRine HCl 10 MG Tablet PO (22:17)
[2025-01-13 00:32] VITALS: PULSE 63; RESP 96; O2SAT 2
[2025-01-13 06:20] VITALS: PULSE 75; O2SAT 97
[2025-01-13] MEDS: Menthol/Lanolin/Calamine/Znox 113 GM Tube 1 APPLIC TOPICAL (06:29)
[2025-01-13] MEDS: Acetaminophen 500 MG Tablet 1000 MG PO (06:29)
[2025-01-13] MEDS: Levothyroxine 112 MCG Tablet PO (06:29)
[2025-01-13 07:35] VITALS: O2SAT 92
--- NOTE | 2025-01-13 08:31 | CASEMGMT ---
Social Work DC paperwork sent to [employer]. Requested psych be involved, if possible at [facility]. lalitha rojo [employer]
--- NOTE | 2025-01-13 08:46 | NURSING ---
Call [facility], they will be early to pickup resident at 10:00.
[2025-01-13] MEDS: Carvedilol 6.25 MG Tablet PO (09:01)
[2025-01-13] MEDS: Nystatin Powder 15gm Bottle 1 APPLIC TOPICAL (09:02)
[2025-01-13] MEDS: Senna/Docusate Sodium 1 Tablet 2 TABLET PO (09:02)
[2025-01-13] MEDS: Losartan Potassium 100 MG Tablet PO (09:02)
[2025-01-13] MEDS: Polyethylene Glycol 3350 17 GM PACKET PO (09:02)
[2025-01-13] MEDS: Sertraline 100 MG Tablet PO (09:03)
[2025-01-13 09:04] VITALS: BP 121/60; PULSE 72; RESP 22; TEMP 36.6; O2SAT 96
[2025-01-13] MEDS: Ipratropium Bromide 0.06% NASAL SPRAY 1 SPRAY NASAL (09:04)
[2025-01-13 10:00] VITALS: BP 121/60; PULSE 72; RESP 22; TEMP 36.6; O2SAT 96
--- NOTE | 2025-01-19 12:58 | EKG12_ITS ---
Test Reason : CHEST PAIN Blood Pressure : */* mmHG Vent. Rate : 66 BPM Atrial Rate : 66 BPM P-R Int : 138 ms QRS Dur : 94 ms QT Int : 446 ms P-R-T Axes : 52 -44 -19 degrees QTcB Int : 467 ms Sinus rhythm with occasional Premature ventricular complexes Left axis deviation Nonspecific ST and T wave abnormality Abnormal ECG When compared with ECG of 19-Dec-2024 12:56, MANUAL COMPARISON REQUIRED DATA IS UNCONFIRMED Confirmed by SASHA MARCH ([id number]), subeditor KEV WOLF ([id number]) on 01/30/2025 12:36:14 PM Referred By: Juan Diego Marks Confirmed By: SASHA MARCH
== END 2025-01-13 10:20 | disposition intermediate care facility (04) | DRG 560 ==
PROVIDERS: Admitting Provider Family Medicine Geriatric Medicine; PCP Family Medicine; Referring Provider Family Medicine Geriatric Medicine; Visit Provider Family Medicine Geriatric Medicine
DX: S82.002D Unspecified fracture of left patella, subsequent encounter for closed fracture with routine healing (principal); E87.1 Hypo-osmolality and hyponatremia; N39.0 Urinary tract infection, site not specified; B96.1 Klebsiella pneumoniae [K. pneumoniae] as the cause of diseases classified elsewhere; D50.9 Iron deficiency anemia, unspecified; I25.10 Atherosclerotic heart disease of native coronary artery without angina pectoris; B35.4 Tinea corporis; E03.9 Hypothyroidism, unspecified; F32.A Depression, unspecified; I10 Essential (primary) hypertension; E53.8 Deficiency of other specified B group vitamins; E78.5 Hyperlipidemia, unspecified; I95.1 Orthostatic hypotension; J30.9 Allergic rhinitis, unspecified; M19.90 Unspecified osteoarthritis, unspecified site; F41.9 Anxiety disorder, unspecified; W19.XXXD Unspecified fall, subsequent encounter; H81.10 Benign paroxysmal vertigo, unspecified ear; Z79.890 Hormone replacement therapy; Z79.82 Long term (current) use of aspirin; R79.89 Other specified abnormal findings of blood chemistry; G47.00 Insomnia, unspecified; Z79.899 Other long term (current) drug therapy; R33.9 Retention of urine, unspecified
CPT/HCPCS: 36415; 73560; 74018; 80048; 80061; 81001; 82274; 82607; 83540; 83550; 85014; 85018; 85025; 87077; 87086; 87088; 87186; 92508; 92523; 93005; 97110; 97116; 97129; 97130; 97162; 97166; 97530; 97535; 97802; A4216; J3420

== ENCOUNTER → 2025-02-09 05:00 | Outpatient (REF) | payer MEDICARE, BC, SELFPAY ==
[2025-02-09 08:53] LABS: Anion Gap 11 (5-15); BUN 10 mg/dL (4-19); Calcium,Total 9.2 mg/dL (7.6-11.0); Carbon Dioxide 22.4 mmol/L (21.0-32.0); Chloride 100 mmol/L (98-108); Creatinine, Serum 0.59 mg/dL (0.70-1.20); EST Glomerular Filtration Rate 91 (>60); Glucose 91 mg/dL (70-99); Potassium 3.8 mmol/L (3.3-5.1); Sodium Level 133 mmol/L (133-145)
== END ==
LOC: OLS.ACH 05:00
PROVIDERS: PCP Family Medicine; Visit Provider Internal Medicine
DX: E87.1 Hypo-osmolality and hyponatremia (principal)
CPT/HCPCS: 36415; 80048

== ENCOUNTER → 2025-02-18 05:00 | Outpatient (REF) | payer MEDICARE, BC, SELFPAY ==
[2025-02-18 10:05] LABS: Absolute Lymphocyte Count 1.14 X10^3/uL (0.83-4.51); Absolute Neutrophil Count 3.6 X10^3/uL (2.0-7.7); Basophil# 0.02 X10^3/uL; Basophil% 0.4 % (0-1); Eosinophil# 0.22 X10^3/uL; Hematocrit 34.1 % (37-47); Hemoglobin 11.2 g/dL (12.0-15.0); Lymphocyte # 1.14 X10^3/ul (0.83-4.51); Lymphocyte % 20.9 % (19-41); Mean Corp Hgb Conc 32.8 g/dL (32-36); Mean Corpuscular Hgb 29.5 pg (27.0-32.0); Mean Corpuscular Volume 89.7 fL (81-99); Mean Platelet Vol. 9.6 fl (6.2-12.0); Monocyte# 0.45 X10^3/uL; Monocyte% 8.2 % (0-10); NRBC Flagged by Analyzer 0 % (0-5); Platelet Count 353 K/mm3 (150-450); RBC Distribution Width SD 43.1 fl (35.1-43.9); White Blood Count 5.5 K/mm3 (4.4-11.0)
[2025-02-18 10:37] LABS: ALB/GLOB Ratio 1.4 RATIO (0.9-2.4); AST(SGOT) 16 U/L (<=31); Alanine Aminotransfer ALT/SGPT 10 U/L (<=34); Albumin, Serum 3.1 g/dL (3.4-4.8); Alkaline Phosphatase 67 U/L (35-104); Anion Gap 11 (5-15); BUN 22 mg/dL (4-19); BUN/Creat Ratio 37.3 RATIO (10-20); Calcium,Total 8.7 mg/dL (7.6-11.0); Carbon Dioxide 21.9 mmol/L (21.0-32.0); Chloride 101 mmol/L (98-108); Creatinine, Serum 0.58 mg/dL (0.70-1.20); EST Glomerular Filtration Rate 91 (>60); Globulin 2.3 g/dL (2.2-4.2); Glucose 87 mg/dL (70-99); Potassium 3.3 mmol/L (3.3-5.1); Protein, Total 5.4 g/dL (5.9-8.4); Sodium Level 134 mmol/L (133-145); Total Bilirubin 0.24 mg/dL (0.00-1.30)
[2025-02-18 10:45] LABS: Mucous, Urine 0 SEEN /hpf (<or=2+)
[2025-02-18 11:02] LABS: Color, Urine Yellow (Yellow); Glucose, Dipstick Normal (Normal); Ketone-Dipstick 5 mg/dl (Negative); Leukocyte Esterase-Dipstick 25 /ul (Negative); Nitrite-Dipstick Negative (Negative); Occult Blood-Urine 50 /ul (Negative); Protein-Dipstick 100 mg/dl (Negative); Urine Bilirubin Dipstick Negative (Negative); Urine Clarity Cloudy (Clear); Urine Urobilinogen Normal (Normal)
[2025-02-18 12:14] LABS: Triple Phosphate Crystals Ur 1+ /hpf (<or=1+)
[2025-02-18 12:15] LABS: Bacteria 3+ /hpf (None Seen)
[2025-02-18 12:16] LABS: White Blood Cells 5-10 SEEN /hpf (0-5)
[2025-02-18 12:19] LABS: Red Blood Cells-Urine 5-10 SEEN /hpf (0-5)
[2025-02-18 12:21] LABS: Squamous Epithelial Cells - UA 0-5 SEEN /hpf (5-10)
== END ==
LOC: OLS.ACH 05:00
PROVIDERS: PCP Family Medicine; Visit Provider Internal Medicine
DX: E87.1 Hypo-osmolality and hyponatremia (principal); M79.10 Myalgia, unspecified site; E55.9 Vitamin D deficiency, unspecified; R33.9 Retention of urine, unspecified
CPT/HCPCS: 36415; 80053; 81001; 85025; 87077; 87086; 87088; 87186

== ENCOUNTER → 2025-04-09 05:00 | Outpatient (REF) | payer MEDICARE, BC, SELFPAY ==
--- OUTSIDE RECORDS SUMMARY | 2025-04-09 03:24 | XMS RPT_ITS | CCD ---
Author Organization [facility] Care Team Providers Care Cost Accounting Clerk Name Role Phone ARGELIA DARBY DO Primary Care Physician Dr. Madhavi Pate Admit Provider Dr. Madhavi Pate Attending Provider Dr. Madhavi Pate Other Provider Dr. Argelia Darby Primary Care Provider Dr. De Snowden Other Provider 1([facility])[phone] Dr. Trever Viveros Attending Provider Dr. Trever Viveros Other Provider Dr. Brooks Carcamo Other Provider Dr. Natalya Wright Attending Provider Dr. Natalya Wright Other Provider Dr. Argelia Darby Referring Provider 1([facility])[phone] Dr. Kristy Andrew Attending Provider 1([facility])[phone] Vance PRISON GUARD SUPERVISOR, PRISON GUARD SUPERVISORJeremiahC Jesus Attending Provider ARGELIA DARBY DO Primary Care Physician ([facility])[phone] ARGELIA DARBY DO Primary Care Unavailable ARGELIA DARBY DO Attending Unavailable ARGELIA DARBY DO Primary Care Unavailable ARGELIA DARBY DO Attending Unavailable ARGELIA DARBY DO Primary Care Unavailable ARGELIA DARBY DO Attending Unavailable ARGELIA DARBY DO Primary Care Unavailable YAZMIN ANDERS DO Attending Unavailable ARGELIA DARBY DO Primary Care Unavailable ARGELIA DARBY DO Attending Unavailable WILNER DO, ARGELIA Primary Care Unavailable WILNER DO, ARGELIA Attending Unavailable WILNER DO, ARGELIA Primary Care Unavailable SP BURRELL, DR CATIE Warren Attending Unav ailable WILNER DO, ARGELIA Primary Care Unavailable WILNER DO, ARGELIA Attending Unavailable WILNER DO, ARGELIA Primary Care Unavailable WILNER DO, ARGELIA Attending Unavailable WILNER DO, ARGELIA Primary Care Unavailable EMELYN GAMING, CRYSTAL Vasquez Attending Unavail able WILNER DO, ARGELIA Primary Care Unavailable WILNER DO, ARGELIA Attending Unavailable WILNER DO, ARGELIA Primary Care Unavailable WILNER DO, ARGELIA Attending Unavailable WILNER DO, ARGELIA Primary Care Unavailable WILNER DO, ARGELIA Attending Unavailable WILNER DO, ARGELIA Primary Care Unavailable WILNER DO, ARGELIA Attending Unavailable WILNER DO, ARGELIA Primary Care Unavailable VANCE AGUIRRE, JESUS Attending Unavaila ble WILNER DO, ARGELIA Primary Care Unavailable WILNER DO, ARGELIA Attending Unavailable WILNER DO, ARGELIA Primary Care Unavailable RADHAESKA DO, RASHEL Attending Unavailable WILNER DO, ARGELIA Primary Care Unavailable DIMPLE GARCIA MD Attending Unavailable WILNER DO, ARGELIA Primary Care Unavailable WILNER DO, ARGELIA Attending Unavailable WILNER DO, ARGELIA Primary Care Unavailable WILNER DO, ARGELIA Attending Unavailable WILNER DO, ARGELIA Primary Care Unavailable WILNER DO, ARGELIA Attending Unavailable WILNER DO, ARGELIA Primary Care Unavailable WILNER DO, ARGELIA Attending Unavailable WILNER DO, ARGELIA Attending Unavailable WILNER DO, ARGELIA Primary Care Unavailable WILNER DO, ARGELIA Attending Unavailable WILNER DO, ARGELIA Primary Care Unavailable WILNER DO, ARGELIA Attending Unavailable WILNER DO, ARGELIA Primary Care Unavailable WILNER DO, ARGELIA Primary Care Unavailable WILNER DO, ARGELIA Attending Unavailable Wilner , Dr. Joyce Primary Care Provider [phone] Dr. Argelia Darby DO Referring Provider Dr. Kristy Andrew MD Attending Provider Dr. Kristy Andrew MD Referring Provider Dr. Orville Cortez MD Emergency Provider Gasper BURRELL, Dr. Jo Admit Provider Unavailab brandt Jackman MD, Dr. Jo Attending Provider Myles Jackman MD, Dr. Jo Other Provider Unavailab brandt Cortez MD, Dr. Jacinto Emergency Provider Gasper BURRELL, Dr. Jo Admit Provider Unavailab brandt Jackman MD, Dr. Jo Other Provider Unavailab le -Attn, [facility] Other Provider Unavailable Laurence BURRELL, Dr. Martinez Other Provider Sp BURRELL, Dr. Kc Other Provider Dr. Donovan Cano DO Attending Provider Rick BURRELL, Dr. Montse Schmidt Other Provider [phone] Gasper BURRELL, Dr. Jo Attending Provider Myles Dang MD, Dr. Martinez Attending Provider Rick BURRELL, Dr. Montse Schmidt Attending Provider Rio BURRELL, Dr. Madhavi Jiménez Attending Provider Rachael ESTEVEZ, Dr. Man Other Provider Aguila BURRELL, Artur Vasquez Unavailable ROSITA RESENDIZ Attending Unavailable ARTUR GEORGES Attending Unavailable Wilner, Argelia Primary Care Unavailable Vance JEFFERSON, Jesus Attending Unavailable Wilner, Argelia Primary Care Unavailable Vance JEFFERSON, Jesus Referring Unavailable Vance JEFFERSON, Jesus Attending Unavailable Deperro DIONE, Gene Attending Unavailable Wilner, Argelia Primary Care Unavailable Wilner, Argelia Primary Care Unavailable Deperro OLS, Gene Attending Unavailable Wilner, Argelia Primary Care Unavailable Kamran, Kristy Referring Unavailable Kamran, Kristy Attending Unavailable Deperro OLS, Gene Attending Unavailable Wilner, Argelia Primary Care Unavailable Deperro OLS, Gene Attending Unavailable Wilner, Argelia Primary Care Unavailable Deperro OLS, Gene Attending Unavailable Wilner, Argelia Primary Care Unavailable Wilner, Argelia Primary Care Unavailable Kendrick, Juan Diego Chi Referring Unavailable Belal, Russellk Attending Unavailable Wilner, Argelia Primary Care Unavailable Kamran, Kristy Referring Unavailable Kamran, Kristy Attending Unavailable Wilner, Argelia Primary Care Unavailable Koram, Montse Roxana Attending Unavailable Jackman, Achintya Admitting Unavailable -Attn: SPENSER More[facility] Consulting Unav ailable Jackman, Achintya Consulting Unavailable Nagajothi, Nagapradee Consulting Unavailabl e Sp, Jayaprakas Consulting Unavailable Koram, Montse Roxana Consulting Unavailable Wilner, Argelia Primary Care Unavailable Vance PRISON GUARD SUPERVISOR, Jesus Referring Unavailable Vance PRISON GUARD SUPERVISOR, Jesus Consulting Unavailable Kamran, Kristy Attending Unavailable Wilner, Argelia Primary Care Unavailable Jackman, Achintya Admitting Unavailable Jackman, Achintya Attending Unavailable Jackman, Achintya Consulting Unavailable Wilner, Argelia Primary Care Unavailable Kamran, Kristy Referring Unavailable Kamran, Kristy Attending Unavailable Wilner, Argelia Primary Care Unavailable Wilner, Argelia Referring Unavailable Kamran, Kristy Attending Unavailable Wilner, Argelia Primary Care Unavailable Argelia Darby Referring Unavailable Vance JEFFERSON, Jesus Attending Unavailable Wilner, Argelia Primary Care Unavailable WilnerArgelia gonzales Referring Unavailable Kamran, Kristy Attending Unavailable Wilner, Argelia Primary Care Unavailable Vance JEFFERSON, Jesus Referring Unavailable Kamran, Kristy Attending Unavailable Wilner, Argelia Primary Care Unavailable Vance JEFFERSON, Jesus Referring Unavailable Kamran, Kristy Attending Unavailable Donovan Cano Attending Unavailable Donovan Cano Consulting Unavailable Wilner, Argelia Primary Care Unavailable Argelia Darby Referring Unavailable Kamran, Kristy Attending Unavailable Donovan Cano Attending Unavailable Wilner, Argelia Primary Care Unavailable Jackman, Achintya Admitting Unavailable -Attn: SPENSER MorejonF Lab Consulting Unav ailable Jackman, Achintya Consulting Unavailable Sp, Jayaprakas Consulting Unavailable Koram, Montse Roxana Consulting Unavailable Nagajothi, Nagapradee Consulting Unavailabl e Wilner, Ragelia Primary Care Unavailable Kendrick, Juan Diego Chi Admitting Unavailable Kendrick, Juan Diego Chi Referring Unavailable Kendrick, Juan Diego Chi Attending Unavailable Gene Muñiz Attending Unavailable Wilner, Argelia Primary Care Unavailable Nagajothi, Nagapradee Attending Unavailabl meenakshi Darby, Argelia Primary Care Unavailable Vance JEFFERSON, Jesus Attending Unavailable Vance PRISON GUARD SUPERVISOR, Jesus Referring Unavailable Allergies Allergy Classification Reported Allergen(s) Allergy Type Date of Onset Reaction(s) Facility (20 sources) Aspirin / Caffeine / Propoxyphene; Translations: [ASA/caffeine/pr opoxyphene] Drug Allergy Unknown [facility] (20 sources) atorvastatin; Translations: [atorvastatin] Drug Allergy 3 Unknown, myalgia [facility] (20 sources) Codeine; Translations: [codeine] Drug Allergy 3 Nausea (finding), Nausea Only [facility] (20 sources) Propoxyphene; Translations: [propoxyphene] Drug Allergy 3 Nausea Only [facility] (20 sources) Simvastatin; Translations: [simvastatin] Drug Allergy 3 myalgias, Myalgia [facility] (6 sources) Propoxyphene; Translations: [propoxyphene HCl] Drug Allergy 3 Nausea [facility] (5 sources) atorvastatin Drug Allergy 3 Unknown [facility] (5 sources) Simvastatin Allergy to substance 3 Other (1 source) atorvastatin Drug Allergy 5 [facility] (1 source) Codeine Drug Allergy 5 [facility] (1 source) Simvastatin Drug Allergy 5 [facility] Medications Current Medications Medication Drug Class(es) Dates Sig (Normalized) Sig (Original) acetaminophen 325 mg oral tablet (10 sources) Start: 12-09-2024 take 2 tablets by mouth every six hours as needed for pain Acetaminophen (Tylenol) 325 mg tablet Active 650 mg PO EVERY 6 HOURS as needed for pain December 09, 2024 12:00am Start: 08-08-2023 End: 12-11-2024 take 2 tablets by mouth every six hours as needed for pain Acetaminophen 500 mg Tablet Discontinued 1000 mg PO EVERY 6 HOURS NEEDED as needed for Pain Score 1-10 0 August 08, 2023 1:00am December 11, 2024 10:58am Start: 08-08-2023 take 1000 mg by mout h every six hours as needed Acetaminophen Active 1000 MG PO EVERY 6 HOURS NEEDED August 08, 2023 12:00am take 1 tablet by robinson th every eight hours as needed for pain acetaminophen (Tylenol Extra Strength) 500 MG tablet Take 500 mg by mouth every 8 hours as needed for mild pain (1-3). Active aspirin 81 mg delayed release oral tablet (17 sources) Platelet Aggregation Inhibitor, Nonsteroidal Anti-inflammatory Drug Start: 12-09-2024 take 1 tablet by mouth twice daily Aspirin 81 mg tablet,delayed release (DR/EC) Active 81 mg PO TWICE A DAY December 09, 2024 12:00am Start: 09-04-2023 take 1 tablet by robinson th once daily, then take 1 tablet by mouth once daily, then take 1 tablet by mouth twice daily Aspirin (Adult Aspirin Regimen) 81 mg tablet,delayed release (DR/EC) Active 81 mg PO DAILY September 04, 2023 1:00am On Hold: Resume on 12/23/24. hold as she is being put on PO aspirin 81mg bid x 2 weeks for DVT prophylaxis. To resume aspirin 81mg daily when she completes the course of PO aspirin 81mg bid x 2 weeks. atenolol 25 mg oral tablet (8 sources) beta-Adrenergic Rahat Start: 12-11-2022 atenol ol 25 mg oral tablet Dose : 25 mg = 1 tab(s), Oral, qDay, # 90 tab(s), 3 Refill(s), Pharmacy: [facility] #[id number], 167.6, cm, 12/11/22 13:15:00 EDT, Height, kg, 12/11/22 13:15:00 EDT, Dosing Weight Start Date: 12/11/22 Status: Ordered Start: 08-31-2021 atenolol 25 mg oral tablet Dose : 25 mg = 1 tab(s), Oral, qDay, # 90 tab(s), 3 Refill(s), Pharmacy: [facility] 166.4, cm, 08/31/21 13:51:00 EST, Height, kg, 08/31/21 13:51:00 EST, Dosing Weight Start Date: 08/31/21 Status: Ordered Start: 07-27-2021 atenolol 25 mg oral tablet Dose : 25 mg = 1 tab(s), Oral, qDay, # 30 tab(s), 5 Refill(s), [facility] 166.4, cm, 07/27/21 13:50:00 EDT, Height, kg, 07/27/21 13:50:00 EDT, Dosing Weight Start Date: 07/27/21 Status: Ordered atorvastatin 20 mg oral tablet (20 sources) HMG-CoA Reductase Inhibitor Start: 07-13-2023 atorvastatin 20 mg oral tablet Dose : 20 mg = 1 tab(s), Oral, qDay, Patient tolerant to atorvastatin, took in past without difficulty. Discontinue buspirone prescription please, # 90 tab(s), 1 Refill(s), Pharmacy: [facility], Hyperlipemia, mixed, 166, cm, 08/01/24 12:52:00 EST, Height, kg, 08/01/24 12:39:00 EST, Dosing Weight Start Date: 08/01/24 Status: Ordered azelastine hydrochloride 0.206 mg/actuat metered dose nasal spray (20 sources) Histamine-1 Receptor Antagonist Start: 09-08-2020 azelastine 205.5 mcg/inh (0.15%) nasal spray Dose = 1 spray(s), Intranasal, qHS, PRN Control symptoms, 0 Refill(s) Start Date: 09/08/20 Status: Ordered azelastine 205.5 mcg/inh (0.15%) nasal spray (6 sources) Start: 09-08-2020 azelastine 205.5 mcg/inh (0.15%) nasal spray Dose = 1 spray(s), Intranasal, qHS, PRN Control symptoms, 0 Refill(s) Start Date: 09/08/20 Status: Ordered bisacodyl 10 mg rectal suppository (5 sources) Stimulant Laxative take 10 mg rectal route every twenty-four hours as needed for constipation bisacodyl (Dulcolax) 10 MG suppository Insert 10 mg into the rectum Daily as needed for constipation. Active busPIRone hydrochloride 5 mg oral tablet (15 sources) Start: 04-17-2024 take 2 tablets by mouth twice daily busPIRone (Buspar) 5 MG tablet Take 10 mg by mouth 2 times daily. 04/17/2024 Active Start: 03-11-2024 End: 12-04-2024 take 1 tablet by mouth twice daily Buspirone 5 mg tablet Discontinued 5 mg PO TWICE A DAY March 11, 2024 12:00am December 04, 2024 2:53pm Start: 10-23-2023 busPIRone 5 mg oral tablet Dose : 5 mg = 1 tab(s), Oral, BID, # 180 tab(s), 1 Refill(s), Pharmacy: [facility], Anxiety Sleeping difficulty, 166, cm, 10/23/23 13:09:00 EST, Height, kg, 10/23/23 13:09:00 EST, Dosing Weight Start Date: 10/23/23 Status: Ordered Calcium (3 sources) Phosphate Binder, Calcium Start: 09-04-2023 Fj-B2-Szd-Zinc-Chemical Research Technician-M ang-Blakeslee (Caltrate 600-D Plus Minerals) 600 mg calcium- 800 unit-40 mg tablet,chewable Active 1 {tbl} PO TWICE A DAY September 04, 2023 1:00am Start: 09-04-2023 take 1 tablet by robinson th twice daily Rx-[id number]-[id number]-Spqg-Vot-Ozmb-Blakeslee (Caltrate 600-D Plus Minerals) 600 mg calcium- 800 unit-40 mg tablet,chewable Active 1 TABLET PO TWICE A DAY September 04, 2023 12:00am Calcium Carbonate (6 sources) Start: 03-16-2020 take 1 tablet by mouth twice daily Caltrate 600 + D oral tablet Dose = 1 tab(s), Oral, BID, 0 Refill(s) Start Date: 03/16/20 Status: Ordered calcium carbonate 1500 mg / cholecalciferol 800 unt oral tablet (20 sources) Vitamin D Start: 03-16-2020 take 1 tablet by mouth twice daily Caltrate 600 + D oral tablet Dose = 1 tab(s), Oral, BID, 0 Refill(s) Start Date: 03/16/20 Status: Ordered carvedilol 3.125 mg oral tablet (20 sources) alpha-Adrenergi c Rahat, beta-Adrenergic Rahat Start: 12-06-2024 take 1 tablet by mouth twice daily Carvedilol 3.125 mg tablet Active 3.125 mg PO TWICE A DAY December 06, 2024 12:00am Start: 10-29-2024 take 2 tablets by mo ut twice daily at mealtime carvedilol (Coreg) 3.125 MG tablet Take 6.25 mg by mouth 2 times daily (with meals). 10/29/2024 Active Start: 06-26-2024 End: 12-04-2024 take 1 tablet by mouth twice daily at mealtime Carvedilol 3.125 mg tablet Discontinued 3.125 mg PO TWICE A DAY 180 June 26, 2024 2:31pm December 04, 2024 3:46pm must administer with a meal/food Start: 03-11-2024 End: 05-01-2024 take 1 tablet by mouth twice daily at mealtime Carvedilol 3.125 mg tablet Discontinued 3.125 mg PO TWICE A DAY 180 March 11, 2024 12:00am May 01, 2024 4:23pm must administer with a meal/food Start: 07-26-2015 End: 07-28-2023 take 1 tablet by mouth twice daily Carvedilol 12.5 MG tablet Discontinued 12.5 mg PO TWICE A DAY July 26, 2015 1:00am July 28, 2023 1:04am clonazePAM 1 mg oral tablet (5 sources) Benzodiazepine Start: 01-12-2025 take 1 tablet by mouth once daily clonazePAM (KlonoPIN) 1 MG tablet Take 1 mg by mouth Nightly. 01/12/2025 Active docusate sodium 100 mg oral capsule (20 sources) Start: 03-16-2020 Dulcolax Stool Softener 100 mg oral capsule Dose : 100 mg = 1 cap(s), Oral, BID, PRN as needed for constipation, # 20 cap(s), 0 Refill(s) Start Date: 03/16/20 Status: Ordered docusate sodium 50 mg / sennosides, chcf 8.6 mg oral tablet (5 sources) Start: 01-12-2025 senna-docusate (Rupa-Colace) 8.6-50 MG tablet Take 1 tablet by mouth. prn 01/12/2025 Active ezetimibe 10 mg oral tablet (2 sources) Dietary Cholesterol Absorption Inhibitor Start: 12-11-2022 Zetia 10 mg oral tablet Dose : 10 mg = 1 tab(s), Oral, qDay, # 30 tab(s), 5 Refill(s), Pharmacy: [facility] #[id number], 167.6, cm, 12/11/22 13:15:00 EDT, Height Start Date: 12/11/22 Status: Ordered ipratropium bromide 0.021 mg/actuat metered dose nasal spray (16 sources) Anticholinergic Start: 07-02-2024 take 42 ug nasal route twice daily ipratropium 21 mcg/inh (0.03%) nasal spray 42 mcg Dose = 2 spray(s), Nostril, each, BID, # 1 EA, 1 Refill(s), Pharmacy: [facility], Allergic rhinitis, 166, cm, 06/10/24 13:00:00 EDT, Height, kg, 06/10/24 13:00:00 EDT, Dosing Weight Start Date: 07/02/24 Status: Ordered Start: 03-28-2024 take 42 ug nasal rou te twice daily ipratropium 21 mcg/inh (0.03%) nasal spray 42 mcg Dose = 2 spray(s), Nostril, each, BID, filling in lieu of pcp, # 1 EA, 0 Refill(s), Pharmacy: [facility], Allergic rhinitis, 166, cm, 03/13/24 15:36:00 EDT, Height, kg, 03/13/24 15:34:00 EDT, Dosing Weight Start Date: 03/28/24 Status: Ordered Start: 03-11-2024 take 1 spray(s) nasa l route twice daily ipratropium (Atrovent) 0.03 % nasal spray Administer 1 spray into each nostril 2 times daily. 10/03/2024 Active Start: 10-23-2023 take 42 ug nasal rou te twice daily ipratropium 21 mcg/inh (0.03%) nasal spray 42 mcg Dose = 2 spray(s), Nostril, each, BID, # 1 EA, 1 Refill(s), Pharmacy: [facility], Allergic rhinitis, 166, cm, 10/23/23 13:09:00 EST, Height, kg, 10/23/23 13:09:00 EST, Dosing Weight Start Date: 10/23/23 Status: Ordered levocetirizine dihydrochloride 5 mg oral tablet (13 sources) Histamine-1 Receptor Antagonist Start: 03-11-2024 take 1 tablet by mouth once daily Levocetirizine 5 mg tablet Active 5 mg PO daily March 11, 2024 12:00am Start: 10-23-2023 Xyzal 5 mg ora l tablet Dose : 5 mg = 1 tab(s), Oral, qPM, # 90 tab(s), 1 Refill(s), Pharmacy: [facility], Allergic rhinitis, 166, cm, 10/23/23 13:09:00 EST, Height, kg, 10/23/23 13:09:00 EST, Dosing Weight Start Date: 10/23/23 Status: Ordered levothyroxine sodium 0.112 mg oral tablet (20 sources) l-Thyroxine Start: 11-03-2024 levothyroxine (Synthroid, Levoxyl) 112 MCG tablet Take by mouth every morning (before breakfast). 11/03/2024 Active Start: 06-10-2024 Levothyroxine 125 mcg tablet Active 112 ug PO daily June 10, 2024 10:31am Start: 03-13-2024 levothyroxine 112 mcg (0.112 mg) oral tablet Dose : 112 mcg = 1 tab(s), Oral, qDay, Discontinue levothyroxine 125 mcg prescription please. Take with liothyronine, # 90 tab(s), 1 Refill(s), Pharmacy: [facility], Hypothyroidism, 166, cm, 08/01/24 12:52:00 EST, Height, kg, 08/01/24 12:39:00 EST, Dosing Weight Start Date: 08/01/24 Status: Ordered Start: 03-13-2024 levothyroxine 125 mcg (0.125 mg) oral tablet Dose : 125 mcg = 1 tab(s), Oral, qDay, # 30 tab(s), 0 Refill(s) Start Date: 03/13/24 Status: Ordered Start: 03-11-2024 End: 06-10-2024 take 1 tablet by mouth once daily Levothyroxine 125 mcg tablet Discontinued 125 ug PO daily March 11, 2024 12:00am June 10, 2024 10:32am Start: 10-23-2023 levothyroxine 112 mcg (0.112 mg) oral tablet Dose : 112 mcg = 1 tab(s), Oral, qDay, Take 1 tablet by mouth daily - change in dosing, # 90 tab(s), 1 Refill(s), Pharmacy: [facility], Hypothyroidism, 166, cm, 10/23/23 13:09:00 EST, Height, kg, 10/23/23 13:09:00 EST, Dosing Weight Start Date: 10/23/23 Status: Ordered Start: 07-28-2023 End: 03-11-2024 take 1 tablet by mouth once daily Levothyroxine 112 mcg tablet Discontinued 112 ug PO DAILY July 28, 2023 12:00am March 11, 2024 3:00pm Start: 07-13-2023 levothyroxine 112 mcg (0.112 mg) oral tablet Dose : 112 mcg = 1 tab(s), Oral, qDay, Take 1 tablet by mouth daily except for Tuesdays and Fridays, # 90 tab(s), 1 Refill(s), Pharmacy: [facility] #[id number], Hypothyroidism, 165, cm, 07/13/23 14:08:00 EDT, Height, kg, 07/13/23 14:08:00 EDT, Dosing Weight Start Date: 07/13/23 Status: Ordered Start: 10-03-2022 levothyroxine 112 mcg (0.112 mg) oral tablet Dose : 112 mcg = 1 tab(s), Oral, qDay, # 90 tab(s), 1 Refill(s), Pharmacy: [facility] #[id number], Hypothyroidism, 166, cm, 12/26/22 10:59:00 EDT, Height, kg, 12/26/22 10:59:00 EDT, Dosing Weight Start Date: 12/27/22 Status: Ordered Start: 04-05-2022 levothyroxine 112 mcg (0.112 mg) oral tablet Dose : 112 mcg = 1 tab(s), Oral, qDay, # 90 tab(s), 1 Refill(s), Pharmacy: [facility] Hypothyroidism, 167, cm, 04/05/22 11:19:00 EDT, Height, kg, 04/05/22 11:19:00 EDT, Dosing Weight Start Date: 04/05/22 Status: Ordered Start: 10-06-2021 levothyroxine 112 mcg (0.112 mg) oral tablet Dose : 112 mcg = 1 tab(s), Oral, qDay, Increased dose, # 90 tab(s), 1 Refill(s), Pharmacy: [address], Hypothyroidism, 165, cm, 10/05/21 14:59:00 EST, Height, kg, 10/05/21 14:59:00 EST, Dosing Weight Start Date: 10/06/21 Status: Ordered Start: 03-14-2021 levothyroxine 100 mcg (0.1 mg) oral tablet Dose : 100 mcg = 1 tab(s), Oral, qDay, Increased dose, # 90 tab(s), 1 Refill(s), Pharmacy: [address], Hypothyroidism, 166, cm, 03/14/21 8:36:00 EDT, Height, kg, 03/14/21 8:36:00 EDT, Dosing Weight Start Date: 03/14/21 Status: Ordered Start: 07-26-2015 End: 07-28-2023 take 1 tablet by mouth once daily Levothyroxine 88 MCG tablet Discontinued 88 ug PO DAILY July 26, 2015 1:00am July 28, 2023 1:37am liothyronine sodium 0.005 mg oral tablet (8 sources) l-Triiodothyronine Start: 12-04-2024 take 1 tablet by mouth once daily Liothyronine 5 mcg tablet Active 5 ug PO daily December 04, 2024 12:00am Start: 03-13-2024 liothyronine 5 mcg oral tablet Dose : 5 mcg = 1 tab(s), Oral, qDay, Take with levothyroxine, # 90 tab(s), 1 Refill(s), Pharmacy: [facility], Hypothyroidism, 166, cm, 08/01/24 12:52:00 EST, Height, kg, 08/01/24 12:39:00 EST, Dosing Weight Start Date: 08/01/24 Status: Ordered losartan potassium 100 mg oral tablet (5 sources) Angiotensin 2 Receptor Rahat Start: 01-12-2025 take 1 tablet by mouth once daily losartan (Cozaar) 100 MG tablet Take 100 mg by mouth daily. 01/12/2025 Active magnesium citrate 58.2 mg/ml oral solution (5 sources) magnesium citrat e solution Take 300 mL by mouth as needed (constipation). Active magnesium hydroxide 80 mg/ml oral suspension (5 sources) take 30 mL by mouth once daily as needed for constipation magnesium hydroxide (Milk of Magnesia) 400 MG/5ML suspension Take 30 mL by mouth Nightly. Prn constipation Active meclizine hydrochloride 25 mg oral tablet (20 sources) Antiemetic Start: 12-09-2024 take 1 tablet by mouth three times daily Meclizine 25 mg Tablet Active 25 mg PO THREE TIMES A DAY December 09, 2024 12:00am Start: 01-30-2024 meclizine 25 m g oral tablet Dose : 25 mg = 1 tab(s), Oral, TID, PRN as needed for dizziness, # 90 tab(s), 1 Refill(s), Pharmacy: [facility], Vertigo Dizziness, 166, cm, 08/01/24 12:52:00 EST, Height, kg, 08/01/24 12:39:00 EST, Dosing Weight Start Date: 08/01/24 Status: Ordered Start: 09-06-2022 End: 12-06-2024 take 1 tablet by mouth three times daily as needed Meclizine 12.5 mg tablet Discontinued 12.5 mg PO 3 TIMES DAILY NEEDED July 28, 2023 12:00am December 06, 2024 6:58pm Start: 06-21-2021 End: 07-22-2022 meclizine 12.5 mg oral table t Dose : 12.5 mg = 1 tab(s), Oral, TID, PRN as needed for dizziness, X 30 day(s), # 60 tab(s), 11 Refill(s), 07/22/22 14:27:00 EDT, [facility]: [facility] 166.4, cm, 07/27/21 13:50:00 EDT, Height, kg, 07/27/21 13:50:00 EDT, Dosing Weight Start Date: 07/27/21 Stop Date: 07/22/22 Status: Ordered midodrine hydrochloride 5 mg oral tablet (2 sources) alpha-Adrenergic Agonist Start: 12-11-2022 midodrine 5 mg oral tablet Dose : 5 mg = 1 tab(s), Oral, BID, # 60 tab(s), 3 Refill(s), Pharmacy: [facility] #[id number], 167.6, cm, 12/11/22 13:15:00 EDT, Height Start Date: 12/11/22 Status: Ordered Multivitamin preparation (10 sources) Start: 03-16-2020 take 1 tablet by mouth once daily Multivitamin Dose = 1 tab(s), Oral, Daily, 0 Refill(s) Start Date: 03/16/20 Status: Ordered ondansetron 4 mg oral tablet (7 sources) Serotonin-3 Receptor Antagonist Start: 06-30-2021 ondansetron 4 mg oral tablet Dose : 4 mg = 1 tab(s), Oral, q8h, 0 Refill(s) Start Date: 06/30/21 Status: Ordered oxyCODONE hydrochloride 5 mg oral tablet (6 sources) Opioid Agonist Start: 12-11-2024 take 1 tablet by mouth every six hours as needed for pain Oxycodone 5 mg Tablet Active 5 mg PO EVERY 6 HOURS NEEDED as needed for Pain Score 4-10 12 December 11, 2024 take 1 capsule by mo [facility] every four hours as needed for pain oxyCODONE (Oxy-IR) 5 MG immediate releas e capsule Take 5 mg by mouth every 4 hours as needed for severe pain (7-10). Active potassium chloride 20 meq or al tablet (8 sources) Start: 08-21-2023 End: 02-17-2024 Potassium Chloride (Eqv-K-Ta b) 20 mEq oral tablet, extended release Dose : 20 mEq = 1 tab(s), Oral, qDay, # 30 tab(s), 5 Refill(s), Pharmacy: [facility], Hypokalemia, 166, cm, 08/21/23 13:31:00 EST, Height, kg, 08/21/23 13:31:00 EST, Dosing Weight Start Date: 08/21/23 Stop Date: 02/17/24 Status: Ordered Start: 08-08-2023 End: 05-01-2024 Potassium Chloride (Klor-Con M20) 20 mEq Tablet,Er Particles/Crystals Discontinued 20 meq PO DAILY WITH MEALS August 08, 2023 1:00May 01, 2024 4:26pm sertraline 100 mg oral tablet (20 sources) Serotonin Reuptake Inhibitor Start: 11-06-2024 sertraline (Zoloft) 100 MG tablet Take 150 mg by mouth daily. 11/06/2024 Active Start: 03-11-2024 take 1 tablet by robinson th once daily Sertraline 100 mg tablet Active 100 mg PO daily March 11, 2024 12:00am Start: 01-30-2024 sertraline 100 mg oral tablet Dose : 100 mg = 1 tab(s), Oral, qDay, # 30 tab(s), 2 Refill(s), Pharmacy: [facility], Recurrent major depression, 166, cm, 01/30/24 13:48:00 EDT, Height, kg, 01/30/24 13:31:00 EDT, Dosing Weight Start Date: 01/30/24 Status: Ordered Start: 09-07-2023 sertraline 100 mg oral tablet Dose : 100 mg = 1 tab(s), Oral, qDay, Increased dose, # 30 tab(s), 2 Refill(s), Pharmacy: [facility], Recurrent major depression, 166, cm, 09/07/23 12:06:00 EST, Height, kg, 09/07/23 11:56:00 EST, Dosing Weight Start Date: 09/07/23 Status: Ordered Start: 08-30-2023 End: 03-11-2024 take 1 tablet by mouth once daily Sertraline 25 mg tablet Discontinued 25 mg PO DAILY August 30, 2023 1:00am March 11, 2024 3:01pm Start: 07-13-2023 End: 08-30-2023 take 1 tablet by mouth once daily Sertraline 50 mg Tablet Discontinued 50 mg PO DAILY 0 August 08, 2023 1:00am August 30, 2023 1:11pm Start: 12-26-2022 sertraline 100 mg oral tablet Dose : 100 mg = 1 tab(s), Oral, qDay, # 90 tab(s), 3 Refill(s), Pharmacy: [facility] #[id number], Depression, 166, cm, 12/26/22 10:59:00 EDT, Height, kg, 12/26/22 10:59:00 EDT, Dosing Weight Start Date: 12/26/22 Status: Ordered Start: 04-05-2022 sertraline 100 mg oral tablet Dose : 100 mg = 1 tab(s), Oral, qDay, # 90 tab(s), 3 Refill(s), Pharmacy: [facility] [place] [id number], Situational depression Panic disorder, 167, cm, 04/05/22 11:19:00 EDT, Height, kg, 04/05/22 11:19:00 EDT, Dosing Weight Start Date: 04/05/22 Status: Ordered Start: 03-14-2021 sertraline 100 mg oral tablet Dose : 100 mg = 1 tab(s), Oral, qDay, # 90 tab(s), 3 Refill(s), Pharmacy: [facility], Situational depression Panic disorder, 166, cm, 03/14/21 8:36:00 EDT, Height, kg, 03/14/21 8:36:00 EDT, Dosing Weight Start Date: 03/14/21 Status: Ordered Start: 07-26-2015 End: 08-08-2023 take 1 tablet by mouth once daily Sertraline (Zoloft) 25 MG tablet Discontinued 25 mg PO DAILY July 26, 2015 1:00am August 08, 2023 8:35pm On Hold: Resume on 08/08/23. simvastatin 20 mg oral tablet (1 source) HMG-CoA Reductase Inhibitor Start: 07-14-2022 simvastatin 20 mg oral tablet Dose : 20 mg = 1 tab(s), Oral, qHS, # 90 tab(s), 1 Refill(s), Pharmacy: [facility] #[id number], Hyperlipemia, mixed, 166, cm, 07/11/22 11:26:00 EDT, Height Start Date: 07/14/22 Status: Ordered sodium chloride 1000 mg oral tablet (20 sources) Start: 12-11-2024 take 2 tablets by mouth three times daily Sodium Chloride 1,000 mg Tablet,Soluble Active 2000 mg PO THREE TIMES A DAY 180 December 11, 2024 12:00am Start: 07-31-2023 End: 12-11-2024 take 1 tablet by mouth twice daily Sodium Chloride 1,000 mg tablet,soluble Discontinued 1000 mg PO TWICE A DAY July 31, 2023 2:59pm December 11, 2024 10:59am Start: 07-04-2023 End: 07-28-2024 take 1 tablet by mouth once daily Sodium Chloride 1,000 mg tablet,soluble Discontinued 1000 mg PO DAILY July 28, 2023 12:00am July 31, 2023 2:59pm Start: 10-13-2021 End: 06-25-2023 sodium chloride 1000 mg oral tablet Dose : 1 gram(s) =, Oral, qDay, Take 1 tablet by mouth daily except 2 tablets on Wednesdays and Saturdays, # 120 tab(s), 1 Refill(s), Pharmacy: [facility] #[id number], Hyponatremia, 166, cm, 12/26/22 10:59:00 EDT, Height, kg, 12/26/22 10:59:00 EDT, Dosing We... Start Date: 12/27/22 Stop Date: 06/25/23 Status: Ordered tamsulosin hydrochloride 0.4 mg oral capsule (5 sources) alpha-Adrenergic Rahat Start: 01-12-2025 take 1 capsule by mouth once daily tamsulosin (Flomax) 0.4 MG 24 hr capsule Take 0.4 mg by mouth daily. 01/12/2025 Active vitamin b12 1 mg oral capsule (20 sources) Vitamin B12 Start: 09-04-2023 take 1 capsule by mouth every month Cyanocobalamin (Vitamin B-12) 1,000 mcg capsule Active 1000 ug PO EVERY MONTH September 04, 2023 1:00am pt takes once a month at primary office Start: 04-23-2023 inject 1 mL by subcu taneous injection every month cyanocobalamin 1000 mcg/mL injectable solution Dose : 1,000 mcg = 1 mL, Subcutaneous, qmonth, not sent in - to get at doctor's office, # 1 mL, 11 Refill(s), other reason (Rx), B12 deficiency Start Date: 04/23/23 Status: Ordered Start: 04-23-2023 inject 1 mL by subcu taneous injection every month cyanocobalamin 1000 mcg/mL injectable solution Dose : 1,000 mcg = 1 mL, Subcutaneous, qmonth, not sent in - to get at doctor's office, # 1 mL, 11 Refill(s), other reason (Rx), B12 deficiency Start Date: 04/23/23 Status: Ordered Completed/Discontinued Medications Medication Drug Class(es) Dates Sig (Normalized) Sig (Original) amLODIPine 10 mg oral tablet (20 sources) Dihydropyridine Calcium Channel Rahat Start: 09-04-2023 End: 03-11-2024 take 1 tablet by mouth once daily Amlodipine 10 mg tablet Discontinued 10 mg PO DAILY September 04, 2023 1:00am March 11, 2024 3:25pm Start: 12-11-2022 End: 09-04-2023 take 1 tablet by mouth once daily Amlodipine 5 mg tablet Discontinued 5 mg PO DAILY July 28, 2023 12:00am September 04, 2023 12:56pm Start: 12-28-2021 amLODIPine 5 m g oral tablet Dose : 5 mg = 1 tab(s), Oral, qDay, # 90 tab(s), 3 Refill(s), Pharm[facility]: [facility], 165.5, cm, 12/06/21 8:32:00 EDT, Height, kg, 12/06/21 8:32:00 EDT, Dosing Weight Start Date: 12/28/21 Status: Ordered Start: 03-16-2021 amLODIPine 5 m g oral tablet Dose : 5 mg = 1 tab(s), Oral, qDay, # 90 tab(s), 3 Refill(s), [facility] [address], 166, cm, 03/16/21 10:55:00 EDT, Height, kg, 03/16/21 10:55:00 EDT, Dosing Weight Start Date: 03/16/21 Status: Ordered biotin 1 mg oral capsule (20 sources) Start: 09-04-2023 End: 06-10-2024 take 1 capsule by mouth once daily Biotin 1 mg capsule Discontinued 1 mg PO DAILY September 04, 2023 1:00am June 10, 2024 10:32am Start: 03-16-2020 take 1 tablet by robinson th once daily biotin 1 tab, Oral, qDay, 0 Refill(s) Start Date: 03/16/20 Status: Ordered furosemide 40 mg oral tablet (20 sources) Loop Diuretic Start: 03-11-2024 End: 05-01-2024 take 1 tablet by mouth once daily Furosemide 40 mg tablet Discontinued 40 mg PO DAILY March 11, 2024 12:00am May 01, 2024 4:26pm On Hold: Severe dizziness Start: 07-26-2015 End: 03-11-2024 take 1 tablet by mouth once daily Furosemide 20 mg Tablet Discontinued 20 mg PO DAILY August 08, 2023 1:00am March 11, 2024 3:25pm hydroCHLOROthiazide 25 mg oral tablet (19 sources) Thiazide Diuretic Start: 08-30-2023 End: 08-30-2023 take 1 tablet by mouth once daily Hydrochlorothiazide 25 mg tablet Discontinued 25 mg PO DAILY August 30, 2023 1:00am August 30, 2023 1:11pm Start: 12-11-2022 hydroCHLOROthi azide 25 mg oral tablet Dose : 25 mg = 1 tab(s), Oral, qDay, # 90 tab(s), 3 Refill(s), Pharmacy: [facility] #[id number], 167.6, cm, 12/11/22 13:15:00 EDT, Height, kg, 12/11/22 13:15:00 EDT, Dosing Weight Start Date: 12/11/22 Status: Ordered Start: 01-10-2022 hydroCHLOROthi azide 25 mg oral tablet Dose : 25 mg = 1 tab(s), Oral, qDay, # 90 tab(s), 3 Refill(s), Pharmacy: [facility] 165.5, cm, 12/06/21 8:32:00 EDT, Height Start Date: 01/10/22 Status: Ordered Start: 06-21-2021 hydroCHLOROthi azide 50 mg oral tablet Dose : 25 mg = 0.5 tab(s), Oral, qDay, # 30 tab(s), 3 Refill(s), Pharmacy: [facility] 167.7, cm, 06/21/21 14:51:00 EDT, Height, kg, 06/21/21 14:51:00 EDT, Dosing Weight Start Date: 06/21/21 Status: Ordered hydroCHLOROthiazide 25 mg / valsartan 320 mg oral tablet (5 sources) Thiazide Diuretic, Angiotensin 2 Receptor Rahat Start: 07-26-2015 End: 07-30-2023 take 1 tablet by mouth once daily Valsartan/Hydrochlorothiazide (Diovan Hct 320-25 Mg Tablet) 1 TABLET tablet Discontinued 1 {tbl} PO DAILY July 26, 2015 1:00am July 30, 2023 8:13am meloxicam 15 mg oral tablet (20 sources) Nonsteroidal Anti-inflammat ory Drug Start: 08-08-2023 End: 12-09-2024 take 1 tablet by mouth once daily Meloxicam 15 mg Tablet Discontinued 15 mg PO DAILY 0 August 08, 2023 1:00am December 09, 2024 10:57am Start: 03-21-2023 End: 07-30-2023 take 1 tablet by mouth once daily Meloxicam 15 mg tablet Discontinued 15 mg PO DAILY July 28, 2023 12:00am July 30, 2023 8:14am Start: 07-11-2022 meloxicam 15 m g oral tablet Dose : 15 mg = 1 tab(s), Oral, qDay, Take with food/milk, # 90 tab(s), 1 Refill(s), Pharmacy: [facility] #[id number], Bilateral shoulder pain Right knee pain, 166, cm, 07/11/22 11:26:00 EDT, Height, kg, 07/11/22 11:26:00 EDT, Dosing Weight Start Date: 07/11/22 Status: Ordered Start: 04-05-2022 meloxicam 15 m g oral tablet Dose : 15 mg = 1 tab(s), Oral, qDay, Take with food/milk, # 90 tab(s), 1 Refill(s), [facility] [facility] Bilateral shoulder pain Right knee pain, 167, cm, 04/05/22 11:19:00 EDT, Height, kg, 04/05/22 11:19:00 EDT, Dosing Weight Start Date: 04/05/22 Status: Ordered Start: 12-06-2021 meloxicam 15 m g oral tablet Dose : 15 mg = 1 tab(s), Oral, qDay, Take with food/milk, # 30 tab(s), 1 Refill(s), Pharmacy: [facility] [address] Bilateral shoulder pain Right knee pain, 165.5, cm, 12/06/21 8:32:00 EDT, Height, kg, 12/06/21 8:32:00 EDT, Dosing Weight Start Date: 12/06/21 Status: Ordered metoprolol tartrate 50 mg oral tablet (2 sources) beta-Adrenergic Rahat Start: 12-04-2024 End: 12-11-2024 take 1 tablet by mouth twice daily Metoprolol Tartrate 50 mg tablet Discontinued 50 mg PO TWICE A DAY 180 December 04, 2024 12:00am December 11, 2024 10:58am olmesartan medoxomil 40 mg oral tablet (20 sources) Angiotensin 2 Receptor Rahat Start: 03-20-2023 End: 10-25-2023 take 1 tablet by mouth once daily Olmesartan 40 mg tablet Discontinued 40 mg PO DAILY July 28, 2023 12:00am October 25, 2023 1:39pm Start: 12-11-2022 olmesartan 40 mg oral tablet Dose : 40 mg = 1 tab(s), Oral, qDay, # 90 tab(s), 3 Refill(s), Pharmacy: [facility] #[id number], 167.6, cm, 12/11/22 13:15:00 EDT, Height, kg, 12/11/22 13:15:00 EDT, Dosing Weight Start Date: 12/11/22 Status: Ordered Start: 03-01-2022 olmesartan 40 mg oral tablet Dose : 40 mg = 1 tab(s), Oral, qDay, # 90 tab(s), 3 Refill(s), Pharmacy: [facility] 165.5, cm, 03/01/22 13:04:00 EDT, Height, kg, 03/01/22 13:04:00 EDT, Dosing Weight Start Date: 03/01/22 Status: Ordered Start: 12-09-2021 olmesartan 40 mg oral tablet Dose : 40 mg = 1 tab(s), Oral, qDay, # 30 tab(s), 5 Refill(s), Pharmacy: [facility] 165.5, cm, 12/06/21 8:32:00 EDT, Height, kg, 12/06/21 8:32:00 EDT, Dosing Weight Start Date: 12/09/21 Status: Ordered Start: 06-21-2021 olmesartan 40 mg oral tablet Dose : 40 mg = 1 tab(s), Oral, qDay, # 30 tab(s), 5 Refill(s), Pharmacy: [facility] 167.7, cm, 06/21/21 14:51:00 EDT, Height, kg, 06/21/21 14:51:00 EDT, Dosing Weight Start Date: 06/21/21 Status: Ordered spironolactone 25 mg oral tablet (7 sources) Aldosterone Antagonist Start: 05-01-2024 End: 12-11-2024 take 1 tablet by mouth once daily Spironolactone 25 mg tablet Discontinued 25 mg PO DAILY 90 December 04, 2024 3:47pm December 11, 2024 10:59am sulfamethoxazole 800 mg / trimethoprim 160 mg oral tablet (2 sources) Dihydrofolate Reductase Inhibitor Antibacterial, Sulfonamide Antimicrobial Start: 03-02-2025 End: 03-02-2025 sulfamethoxazole-tr imethoprim (Bactrim DS) 800-160 MG per tablet 1 tablet Start: 03-02-2025 End: 03-02-2025 take 1 tablet by mouth once 1 tablet, Oral, Once, On M on 03/02/25 at 1000, For 1 dose, Suspected Indication (Select all that apply): Other, Other Abx Indication: Post Procedure Prophylaxis traMADol hydrochloride 50 mg oral tablet (9 sources) Opioid Agonist Start: 08-08-2023 End: 12-04-2024 take 1 tablet by mouth every six hours as needed for pain Tramadol 50 mg Tablet Discontinued 50 mg PO EVERY 6 HOURS NEEDED as needed for Pain Score 6-10 28 7 August 08, 2023 1:00am December 04, 2024 2:55pm traMADol HCl 25 MG tablet Take by mouth. As directed Active Problems Active Problems Problem Classification Problem Date Documented Da te Episodic/Chronic Anxiety disorders (20 sources) Panic disorder; Translations: [Anxiety] 07-25-2019 Chronic Cardiac dysrhythmias (20 sources) Ventricular premature beats; Translations: [Multiple premature ventricular complexes] Onset: 11-04-2024 07-27-2021 Chronic Coronary atherosclerosis and other heart disease (20 sources) Coronary arteriosclerosis; Translations: [Atherosclerotic heart disease of [place] coronary artery without angina pectoris] Onset: 07-15-2024 09-15-2020 Chronic Disorders of lipid metabolism (20 sources) Mixed hyperlipidemia; Translations: [Pure hypercholesterolemia ] Onset: 03-11-2024 09-15-2020 Chronic Essential hypertension (20 sources) Essential hypertension; Translations: [Essential (primary) hypertension] Onset: 12-04-2023 07-25-2019 Chronic Fluid and electrolyte disorders (20 sources) Hyponatremia; Translations: [Hypo-osmolality and hyponatremia] Onset: 12-04-2023 04-05-2022 Episodic Fracture of lower limb (11 sources) Closed fracture of patella; Translations: [Unspecified fracture of left patella, initial encounter for closed fracture] Onset: 12-19-2024 12-06-2024 Episodic Genitourinary symptoms and ill-defined conditions (6 sources) Retention of urine; Translations: [Retention of urine, unspecified] Onset: 01-22-2025 01-22-2025 Episodic Heart valve disorders (20 sources) Mitral valve prolapse; Translations: [Nonrheumatic mitral (valve) prolapse] Onset: 12-04-2024 08-24-2020 Chronic Comment on above: Stable, last echocar diogram was July 2018 and showed mild MR. Symptoms are well controlled. Mood disorders (20 sources) Depression; Translations: [Reactive depression (situational)] 07-25-2019 Chronic Nutritional deficiencies (19 sources) Vitamin D deficiency 05-08-2023 Chronic Nutritional deficiencies (19 sources) Cobalamin deficiency 05-08-2023 Episodic Open wounds of extremities (4 sources) Laceration of right hand; Translations: [Laceration without foreign body of right hand, initial encounter] 12-06-2024 Episodic Open wounds of head; neck; and trunk (4 sources) Laceration of lip ; Translations: [Laceration without foreign body of lip, initial encounter] 12-06-2024 Episodic Osteoarthritis (5 sources) Osteoarthritis; Translations: [Unspecified osteoarthritis, unspecified site] 07-31-2023 Chronic Other aftercare (16 sources) Post-discharge follow-up 08-21-2023 Episodic Other aftercare (1 source) Drug monitoring done; Translations: [Encounter for therapeutic drug level monitoring] Episodic Other aftercare (1 source) Long-term current use of drug therapy; Translations: [Other ad terminal makeup operator (current) drug therapy] Episodic Other aftercare (2 sources) Long-term current use of diuretic; Translations: [Encounter for therapeutic drug level monitoring] 05-01-2024 Episodic Other and ill-defined heart disease (1 source) Heart disease; Translations: [Other ill-defined heart diseases] Chronic Other and ill-defined heart disease (6 sources) Diastolic dysfunction; Translations: [Other ill-defined heart diseases] 03-11-2024 Chronic Other and ill-defined heart disease (1 source) Other ill-defined heart diseases; Translations: [Other ill-defined heart diseases] Onset: 12-04-2024 Chronic Other connective tissue disease (1 source) Cramp in lower leg associated with rest; Translations: [Sleep related leg cramps] Chronic Other connective tissue disease (20 sources) Bursitis of shoulder 02-02-2021 Episodic Other connective tissue disease (1 source) Spasm; Translations: [Cramp and spasm] Episodic Other connective tissue disease (20 sources) Cramp in lower limb 03-21-2023 Episodic Other connective tissue disease (20 sources) Muscle pain; Translations: [Myalgia, unspecified site] 07-24-2023 Episodic Other connective tissue disease (1 source) Recurrent falls 10-03-2024 Episodic Other ear and sense organ disorders (12 sources) Impacted cerumen 12-04-2023 Episodic Other endocrine disorders (1 source) 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 Other hereditary and degenerative nervous system conditions (20 sources) Restless legs; Translations: [Restless legs syndrome] Chronic Other lower respiratory disease (20 sources) Dyspnea; Translations: [Shortness of breath] 08-24-2020 Episodic Other lower respiratory disease (1 source) Desaturation of blood 10-29-2024 Episodic Other nervous system disorders (4 sources) Unable to walk; Translations: [Difficulty in walking, not elsewhere classified] 12-06-2024 Chronic Other non-traumatic joint disorders (20 sources) Shoulder pain 02-02-2021 Episodic Other non-traumatic joint disorders (20 sources) Knee pain 12-06-2021 Episodic Other non-traumatic joint disorders (1 source) Pain of right shoulder joint; Translations: [Pain in right shoulder] Episodic Other nutritional; endocrine; and metabolic disorders (20 sources) Body mass index 30+ - obesity 12-26-2022 Chronic Other nutritional; endocrine; and metabolic disorders (20 sources) Hypomagnesemia; Translations: [Hypomagnesemia] 07-31-2023 Chronic Other nutritional; endocrine; and metabolic disorders (2 sources) Hypomagnesemia; Translations: [Disorders of magnesium metabolism] 08-14-2023 Chronic Other nutritional; endocrine; and metabolic disorders (4 sources) Overweight in adulthood with body mass index of 25 or more but less than 30 06-10-2024 Episodic Other screening for suspected conditions (not mental disorders or infectious disease) (20 sources) Viral screening status; Translations: [Raised cardiac enzyme or marker] Onset: 12-19-2024 07-11-2022 Episodic Other upper respiratory disease (20 sources) Allergic rhinitis 07-25-2019 Chronic Other upper respiratory infections (20 sources) Upper respiratory infection; Translations: [Acute upper respiratory infection, unspecified] Onset: 07-24-2023 07-24-2023 Episodic Pulmonary heart disease (20 sources) Pulmonary hypertension; Translations: [Pulmonary hypertension, unspecified] 08-24-2020 Chronic Residual codes; unclassified (20 sources) Sleep apnea 07-25-2019 Chronic Residual codes; unclassified (12 sources) Bilateral lower limb edema 12-04-2023 Episodic Residual codes; unclassified (12 sources) Difficulty sleeping 10-23-2023 Episodic Residual codes; unclassified (1 source) Localized edema; Translations: [Localized edema] Episodic Residual codes; unclassified (2 sources) Peripheral edema; Translations: [Localized edema] 03-11-2024 Episodic Respiratory failure; insufficiency; arrest (adult) (1 source) Patient on oxygen 10-29-2024 Chronic Superficial injury; contusion (4 sources) Contusion of face; Translations: [Contusion of other part of head, initial encounter] 12-06-2024 Episodic Syncope (10 sources) Syncope; Translations: [Syncope and collapse] Onset: 11-04-2024 12-06-2024 Episodic Thyroid disorders (20 sources) Hypothyroidism; Translations: [Hypothyroidism, unspecified] 03-16-2020 Chronic Unclassified (20 sources) Patient encounter status 07-29-2019 Unclassified (20 sources) Never used tobacco 12-26-2022 Unclassified (12 sources) Influenza vaccination declined 12-04-2023 Unclassified (2 sources) Other ventricular tachycardia; Translations: [Other ventricular tachycardia] Onset: 12-04-2024 Viral infection (20 sources) Disease caused by 2019-nCoV; Translations: [COVID-19] 07-27-2023 Episodic Past or Other Problems Problem Classification Problem Date Documented Da te Episodic/Chronic Cardiac dysrhythmias (4 sources) Palpitations; Translations: [Palpitations] Onset: 07-15-2024 03-11-2024 Episodic Conditions associated with dizziness or vertigo (20 sources) Dizziness; Translations: [Lightheadedness] Onset: 07-15-2024 06-21-2021 Episodic Malaise and fatigue (20 sources) Fatigue; Translations: [Asthenia] Onset: 07-24-2023 07-24-2023 Episodic Other connective tissue disease (2 sources) Myalgia, unspecified site; Translations: [Myalgia, unspecified site] Onset: 07-24-2023 Episodic Other lower respiratory disease (2 sources) Shortness of breath; Translations: [Shortness of breath] Onset: 07-15-2024 Episodic Other lower respiratory disease (1 source) Other forms of dyspnea; Translations: [Other forms of dyspnea] Onset: 07-03-2024 Episodic Residual codes; unclassified (1 source) Localized edema; Translations: [Localized edema] Onset: 03-11-2024 Episodic Results Test Name Value Interpretation Reference Range Facility Progress Noteon 03-02-2025 Progress Note Victoriano Fountain 03/02/2025 at 12:01 PM Office follow up PATIENT NAME: Jero Lewis DATE OF : 1945 TODAY'S DATE: 03/02/2025 CHIEF COMPLAINT: Chief Complaint Patient presents with Procedure Cysto Subjective: Ms. Lewis is a 79 y.o. female who had cysto today. History of Urinary Retention Passed VT 01/22/25 Cysto normal Review of Systems No Distress Respiratory WNL Past Medical History: Medical History[1] Past Surgical History: Surgical History[2] Allergies: Atorvastatin, Codeine, Simvastatin, and Propoxyphene Social History: Social History Socioeconomic History Marital status: Unknown Spouse name: Not on file Number of children: Not on file Years of education: Not on file Highest education level: Not on file Occupational History Not on file Tobacco Use Smoking status: Not on file Smokeless tobacco: Not on file Substance and Sexual Activity Alcohol use: Not on file Drug use: Not on file Sexual activity: Not on file Other Topics Concern Not on file Social History Narrative Not on file Social Drivers of Health Financial Resource Strain: Not on file Food Insecurity: Not on file Transportation Needs: Not on file Physical Activity: Not on file Stress: Not on file Social Connections: Not on file Intimate Partner Violence: Not on file Housing Stability: Not on file Family History: Family History[3] Medications Prior to Admission medications Medication Sig Start Date End Date Taking? Authorizing Provider acetaminophen (Tylenol Extra Strength) 500 MG tablet Take 500 mg by mouth every 8 hours as needed for mild pain (1-3). Historical Provider, bisacodyl (Dulcolax) 10 MG suppository Insert 10 mg into the rectum Daily as needed for constipation. Historical Provider, busPIRone (Buspar) 5 MG tablet Take 10 mg by mouth 2 times daily. 04/17/24 Historical Provider, carvedilol (Coreg) 3.125 MG tablet Take 6.25 mg by mouth 2 times daily (with meals). 10/29/24 Historical Provider, clonazePAM (KlonoPIN) 1 MG tablet Take 1 mg by mouth Nightly. 01/12/25 Historical Provider, ipratropium (Atrovent) 0.03 % nasal spray Administer 1 spray into each nostril 2 times daily. 10/03/24 Historical Provider, levothyroxine (Synthroid, Levoxyl) 112 MCG tablet Take by mouth every morning (before breakfast). 11/03/24 Historical Provider, losartan (Cozaar) 100 MG tablet Take 100 mg by mouth daily. 01/12/25 Historical Provider, magnesium citrate solution Take 300 mL by mouth as needed (constipation). Historical Provider, magnesium hydroxide (Milk of Magnesia) 400 MG/5ML suspension Take 30 mL by mouth Nightly. Prn constipation Historical Provider, oxyCODONE (Oxy-IR) 5 MG immediate release capsule Take 5 mg by mouth every 4 hours as needed for severe pain (7-10). Historical Provider, senna-docusate (Rupa-Colace) 8.6-50 MG tablet Take 1 tablet by mouth. prn 01/12/25 Historical Provider, sertraline (Zoloft) 100 MG tablet Take 150 mg by mouth daily. 11/06/24 Historical Provider, tamsulosin (Flomax) 0.4 MG 24 hr capsule Take 0.4 mg by mouth daily. 01/12/25 Historical Provider, Vitals: BP 121/54 (BP Location: Right arm, Patient Position: Sitting) Pulse 73 Wt 160 lb (72.6 kg) Physical Exam General: No distress Abdomen: Back: : Labs: WBC No results found for: WBC BMP No results found for: NA, K, CL, CO2, BUN, CREATININE, GLUCOSE, CALCIUM PSA No results found for: PSA UANo results found for: APPEARANCE, COLORU, LABSPEC, LABPH, URINE, GLUCOSEU, UROBILINOGEN, BILIRUBINUR, OCBU Review: had cysto today ( normal) . History of Urinary Retention Passed VT 01/22/25 Impression/Plan Jero was seen today for procedure. Diagnoses and all orders for this visit: Urinary retention (Primary) - sulfamethoxazole-trime thoprim (Bactrim DS) 800-160 MG per tablet 1 tablet Follow up if symptoms worsen or fail to improve. Artur Georges MD 03/02/25 12:01 PM [1] No past medical history on file. [2] No past surgical history on file. [3] No family history on file. Normal [facility] Urine Cultureon 02-20-2025 [facility] Normal [facility] Comment on above: Performed By: #### M 100.2200, L400.0001 ####[facility] [address] [place], [address] CBC W/Diff, Automatedon 05- Absolute Lymph 1.14 X10 3/uL Normal 0.83-4.51 [facility] Comment on above: Order Comment: 301-1 Performed By: #### L 500.4050, L100.0100 ####[facility] [address] [place], [address] Absolute Neut 3.6 X10 3/uL Normal 2.0-7.7 [facility] Comment on above: Order Comment: 301-1 Performed By: #### L 500.4050, L100.0100 ####[facility] [address] [place], [address] Basophils/100 WBC (Bld) 0.4 % Normal 0-1 [facility] Comment on above: Order Comment: 301-1 Performed By: #### L 500.4050, L100.0100 ####[facility] [address] [place], [address] Eosinophils/100 WBC (Bld) 4.0 % Normal 0-5 [facility] Comment on above: Order Comment: 301-1 Performed By: #### L 500.4050, L100.0100 ####[facility] [address] [place], [address] Erythrocyte distribution width (RBC) [Ratio] 13.0 % Normal 11.6-14.6 [facility] Comment on above: Order Comment: 301-1 Performed By: #### L 500.4050, L100.0100 ####[facility] [address] [place], [address] Hematocrit (Bld) [Volume fraction] 34.1 % Low 37-47 [facility] Comment on above: Order Comment: 301-1 Performed By: #### L 500.4050, L100.0100 ####[facility] [address] [place], [address] Hemoglobin (Bld) [Mass/Vol] 11.2 g/dL Low 12.0-15.0 [facility] Comment on above: Order Comment: 301-1 Performed By: #### L 500.4050, L100.0100 ####[facility] [address] [place], [address] IG% 0.500 Normal 0.0-0.9 [facility] Comment on above: Order Comment: 301-1 Result Comment: IG% - Immature Granulocytes (promyelocytes, myelocytes andmetamyelocytes) > 1% indicates that a LEFT SHIFT is Present. Performed By: #### L 500.4050, L100.0100 ####[facility] [address] [place], [address] Lymphocytes/100 WBC (Bld) 20.9 % Normal 19-41 [facility] Comment on above: Order Comment: 301-1 Performed By: #### L 500.4050, L100.0100 ####[facility] [address] [place], [address] MCH (RBC) [Entitic mass] 29.5 pg Normal 27.0-32.0 [facility] Comment on above: Order Comment: 301-1 Performed By: #### L 500.4050, L100.0100 ####[facility] [address] [place], [address] MCHC (RBC) [Mass/Vol] 32.8 g/dL Normal 32-36 [facility] Comment on above: Order Comment: 301-1 Performed By: #### L 500.4050, L100.0100 ####[facility] [address] [place], [address] MCV (RBC) [Entitic vol] 89.7 fL Normal 81-99 [facility] Comment on above: Order Comment: 301-1 Performed By: #### L 500.4050, L100.0100 ####[facility] [address] [place], [address] Monocytes/100 WBC (Bld) 8.2 % Normal 0-10 [facility] Comment on above: Order Comment: 301-1 Performed By: #### L 500.4050, L100.0100 ####[facility] [address] [place], [address] Neutrophils/100 WBC (Bld) 66.0 % Normal 47-70 [facility] Comment on above: Order Comment: 301-1 Performed By: #### L 500.4050, L100.0100 ####[facility] [address] [place], [address] Nucleated RBC (Bld) [#/Vol] 0 10*3/uL Normal 0-5 [facility] Comment on above: Order Comment: 301-1 Performed By: #### L 500.4050, L100.0100 ####[facility] [address] [place], [address] Platelet mean volume (Bld) [Entitic vol] 9.6 fL Normal 6.2-12.0 [facility] Comment on above: Order Comment: 301-1 Performed By: #### L 500.4050, L100.0100 ####[facility] [address] [place], [address] Platelets (Bld) [#/Vol] 353 10*3/uL Normal 150-450 [facility] Comment on above: Order Comment: 301-1 Performed By: #### L 500.4050, L100.0100 ####[facility] [address] [place], [address] RBC (Bld) [#/Vol] 3.80 10*6/uL Low 4.2-5.4 [facility] Comment on above: Order Comment: 301-1 Performed By: #### L 500.4050, L100.0100 ####[facility] [address] [place], [address] RDW SD 43.1 fl Normal 35.1-43.9 [facility] Comment on above: Order Comment: 301-1 Performed By: #### L 500.4050, L100.0100 ####[facility] [address] [place], [address] WBC (Bld) [#/Vol] 5.5 10*3/uL Normal 4.4-11.0 [facility] Comment on above: Order Comment: 301-1 Performed By: #### L 500.4050, L100.0100 ####[facility] [address] [place], [address] Comprehensive Metabolic Prof ilon 02-18-2025 Albumin [Mass/Vol] 3.1 g/dL Low 3.4-4.8 [facility] Comment on above: Order Comment: 301-1 Performed By: #### L 500.4050, L100.0100 ####[facility] [address] [place], [address] Albumin/Globulin [Mass ratio] 1.4 {ratio} Normal 0.9-2.4 [facility] Comment on above: Order Comment: 301-1 Performed By: #### L 500.4050, L100.0100 ####[facility] [address] [place], [address] ALK PHOS 67 U/L Normal 35-104 [facility] Comment on above: Order Comment: 301-1 Performed By: #### L 500.4050, L100.0100 ####[facility] [address] [place], [address] ALT [Catalytic activity/Vol] 10 U/L Normal <=34 [facility] Comment on above: Order Comment: 301-1 Performed By: #### L 500.4050, L100.0100 ####[facility] [address] [place], [address] AST [Catalytic activity/Vol] 16 U/L Normal <=31 [facility] Comment on above: Order Comment: 301-1 Performed By: #### L 500.4050, L100.0100 ####[facility] [address] [place], [address] Bilirubin [Mass/Vol] 0.24 mg/dL Normal 0.00-1.30 [facility] Comment on above: Order Comment: 301-1 Performed By: #### L 500.4050, L100.0100 ####[facility] [address] [place], [address] BUN/CRE 37.3 RATIO High 10-20 [facility] Comment on above: Order Comment: 301-1 Performed By: #### L 500.4050, L100.0100 ####[facility] [address] [place], [address] Calcium [Mass/Vol] 8.7 mg/dL Normal 7.6-11.0 [facility] Comment on above: Order Comment: 301-1 Performed By: #### L 500.4050, L100.0100 ####[facility] [address] [place], [address] Chloride [Moles/Vol] 101 mmol/L Normal 98-108 [facility] Comment on above: Order Comment: 301-1 Performed By: #### L 500.4050, L100.0100 ####[facility] [address] [place], [address] CO2 [Moles/Vol] 21.9 mmol/L Normal 21.0-32.0 [facility] Comment on above: Order Comment: 301-1 Performed By: #### L 500.4050, L100.0100 ####[facility] [address] [place], [address] Creatinine [Mass/Vol] 0.58 mg/dL Low 0.70-1.20 [facility] Comment on above: Order Comment: 301-1 Performed By: #### L 500.4050, L100.0100 ####[facility] [address] [place], [address] GAP 11 Normal 5-15 [facility] Comment on above: Order Comment: 301-1 Performed By: #### L 500.4050, L100.0100 ####[facility] [address] [place], [address] GFR/1.73 sq M.predicted among non-blacks MDRD (S/P/Bld) [Vol rate/Area] 91 mL/min/{1.73_m2} Normal >60 [facility] Comment on above: Order Comment: 301-1 Result Comment: mL/m in/1.73m2 CKD-EPI Creatinine Equation (2020) Performed By: #### L 500.4050, L100.0100 ####[facility] [address] [place], [address] Globulin (S) [Mass/Vol] 2.3 g/dL Normal 2.2-4.2 [facility] Comment on above: Order Comment: 301-1 Performed By: #### L 500.4050, L100.0100 ####[facility] [address] [place], [address] Glucose [Mass/Vol] 87 mg/dL Normal 70-99 [facility] Comment on above: Order Comment: 301-1 Performed By: #### L 500.4050, L100.0100 ####[facility] [address] [place], [address] Potassium [Moles/Vol] 3.3 mmol/L Normal 3.3-5.1 [facility] Comment on above: Order Comment: 301-1 Performed By: #### L 500.4050, L100.0100 ####[facility] [address] [place], [address] Sodium [Moles/Vol] 134 mmol/L Normal 133-145 [facility] Comment on above: Order Comment: 301-1 Performed By: #### L 500.4050, L100.0100 ####[facility] [address] [place], [address] T PROT 5.4 g/dL Low 5.9-8.4 [facility] Comment on above: Order Comment: 301-1 Performed By: #### L 500.4050, L100.0100 ####[facility] [address] [place], [address] Urea nitrogen [Mass/Vol] 22 mg/dL High 4-19 [facility] Comment on above: Order Comment: 301-1 Performed By: #### L 500.4050, L100.0100 ####[facility] [address] [place], [address] Urinalysis, Completeon 02-18 EPI,SQUAMOUS 0-5 SEEN Normal 5-10 [facility] Comment on above: Order Comment: 301-1 CLEAN CATCH Performed By: #### M 100.2200, L400.0001 ####[facility] [address] [place], [address] RBC 5-10 SEEN Normal 0-5 [facility] Comment on above: Order Comment: 301-1 CLEAN CATCH Performed By: #### M 100.2200, L400.0001 ####[facility] [address] [place], [address] WBC 5-10 SEEN Normal 0-5 [facility] Comment on above: Order Comment: 301-1 CLEAN CATCH Performed By: #### M 100.2200, L400.0001 ####[facility] [address] [place], [address] BACTERIA 3+ /hpf Normal None Seen [facility] Comment on above: Order Comment: 301-1 CLEAN CATCH Performed By: #### M 100.2200, L400.0001 ####[facility] [address] [place], [address] TRIPLE PHOS 1+ /hpf Normal [facility] Comment on above: Order Comment: 301-1 CLEAN CATCH Performed By: #### M 100.2200, L400.0001 ####[facility] [address] [place], [address] Mucus Ql (Urine sed) 0 SEEN Normal [facility] Comment on above: Order Comment: 301-1 CLEAN CATCH Performed By: #### M 100.2200, L400.0001 ####[facility] [address] [place], [address] Basic Metabolic Profile (BMP )on 02-09-2025 BUN/CRE 17.0 RATIO Normal 10-20 [facility] Comment on above: Order Comment: 301-1 Performed By: #### L 500.2500 ####[facility] [address] [place], [address] Calcium [Mass/Vol] 9.2 mg/dL Normal 7.6-11.0 [facility] Comment on above: Order Comment: 301-1 Performed By: #### L 500.2500 ####[facility] [address] [place], [address] Chloride [Moles/Vol] 100 mmol/L Normal 98-108 [facility] Comment on above: Order Comment: 301-1 Performed By: #### L 500.2500 ####[facility] [address] [place], [address] CO2 [Moles/Vol] 22.4 mmol/L Normal 21.0-32.0 [facility] Comment on above: Order Comment: 301-1 Performed By: #### L 500.2500 ####[facility] [address] [place], [address] Creatinine [Mass/Vol] 0.59 mg/dL Low 0.70-1.20 [facility] Comment on above: Order Comment: 301-1 Performed By: #### L 500.2500 ####[facility] [address] [place], [address] GAP 11 Normal 5-15 [facility] Comment on above: Order Comment: 301-1 Performed By: #### L 500.2500 ####[facility] [address] [place], [address] GFR/1.73 sq M.predicted among non-blacks MDRD (S/P/Bld) [Vol rate/Area] 91 mL/min/{1.73_m2} Normal >60 [facility] Comment on above: Order Comment: 301-1 Result Comment: mL/m in/1.73m2 CKD-EPI Creatinine Equation (2020) Performed By: #### L 500.2500 ####[facility] [address] [place], [address] Glucose [Mass/Vol] 91 mg/dL Normal 70-99 [facility] Comment on above: Order Comment: 301-1 Performed By: #### L 500.2500 ####[facility] [address] [place], [address] Potassium [Moles/Vol] 3.8 mmol/L Normal 3.3-5.1 [facility] Comment on above: Order Comment: 301-1 Performed By: #### L 500.2500 ####[facility] [address] [place], [address] Sodium [Moles/Vol] 133 mmol/L Normal 133-145 [facility] Comment on above: Order Comment: 301-1 Performed By: #### L 500.2500 ####[facility] [address] [place], [address] Urea nitrogen [Mass/Vol] 10 mg/dL Normal 4-19 [facility] Comment on above: Order Comment: 301-1 Performed By: #### L 500.2500 ####[facility] [address] [place], [address] CBC-Complete Blood Cnt No Di ffon 02-06-2025 Erythrocyte distribution width (RBC) [Ratio] 13.0 % Normal 11.6-14.6 [facility] Comment on above: Order Comment: . Performed By: #### L 500.4050, L100.0500 ####[facility] [address] [place], [address] Hematocrit (Bld) [Volume fraction] 36.4 % Low 37-47 [facility] Comment on above: Order Comment: .1 Performed By: #### L 500.4050, L100.0500 ####[facility] [address] [place], [address] Hemoglobin (Bld) [Mass/Vol] 12.3 g/dL Normal 12.0-15.0 [facility] Comment on above: Order Comment: .1 Performed By: #### L 500.4050, L100.0500 ####[facility] [address] [place], [address] MCH (RBC) [Entitic mass] 30.1 pg Normal 27.0-32.0 [facility] Comment on above: Order Comment: . Performed By: #### L 500.4050, L100.0500 ####[facility] [address] [place], [address] MCHC (RBC) [Mass/Vol] 33.8 g/dL Normal 32-36 [facility] Comment on above: Order Comment: . Performed By: #### L 500.4050, L100.0500 ####[facility] [address] [place], [address] MCV (RBC) [Entitic vol] 89.0 fL Normal 81-99 [facility] Comment on above: Order Comment: .1 Performed By: #### L 500.4050, L100.0500 ####[facility] [address] [place], [address] Platelet mean volume (Bld) [Entitic vol] 9.4 fL Normal 6.2-12.0 [facility] Comment on above: Order Comment: .1 Performed By: #### L 500.4050, L100.0500 ####[facility] [address] [place], [address] Platelets (Bld) [#/Vol] 279 10*3/uL Normal 150-450 [facility] Comment on above: Order Comment: . Performed By: #### L 500.4050, L100.0500 ####[facility] [address] [place], [address] RBC (Bld) [#/Vol] 4.09 10*6/uL Low 4.2-5.4 [facility] Comment on above: Order Comment: . Performed By: #### L 500.4050, L100.0500 ####[facility] [address] [place], [address] RDW SD 42.4 fl Normal 35.1-43.9 [facility] Comment on above: Order Comment: . Performed By: #### L 500.4050, L100.0500 ####[facility] [address] [place], [address] WBC (Bld) [#/Vol] 4.8 10*3/uL Normal 4.4-11.0 [facility] Comment on above: Order Comment: . Performed By: #### L 500.4050, L100.0500 ####[facility] [address] [place], [address] Comprehensive Metabolic Prof [facility] 02-06-2025 Albumin [Mass/Vol] 3.7 g/dL Normal 3.4-4.8 [facility] Comment on above: Order Comment: . Performed By: #### L 500.4050, L100.0500 ####[facility] [address] [place], [address] Albumin/Globulin [Mass ratio] 1.4 {ratio} Normal 0.9-2.4 [facility] Comment on above: Order Comment: . Performed By: #### L 500.4050, L100.0500 ####[facility] [address] [place], [address] ALK PHOS 78 U/L Normal 35-104 [facility] Comment on above: Order Comment: . Performed By: #### L 500.4050, L100.0500 ####[facility] [address] [place], [address] ALT [Catalytic activity/Vol] 14 U/L Normal <=34 [facility] Comment on above: Order Comment: .1 Performed By: #### L 500.4050, L100.0500 ####[facility] [address] [place], [address] AST [Catalytic activity/Vol] 20 U/L Normal <=31 [facility] Comment on above: Order Comment: . Performed By: #### L 500.4050, L100.0500 ####[facility] [address] [place], [address] Bilirubin [Mass/Vol] 0.32 mg/dL Normal 0.00-1.30 [facility] Comment on above: Order Comment: . Performed By: #### L 500.4050, L100.0500 ####[facility] [address] [place], [address] BUN/CRE 17.3 RATIO Normal 10-20 [facility] Comment on above: Order Comment: . Performed By: #### L 500.4050, L100.0500 ####[facility] [address] [place], [address] Calcium [Mass/Vol] 9.2 mg/dL Normal 7.6-11.0 [facility] Comment on above: Order Comment: . Performed By: #### L 500.4050, L100.0500 ####[facility] [address] [place], [address] Chloride [Moles/Vol] 96 mmol/L Low 98-108 [facility] Comment on above: Order Comment: . Performed By: #### L 500.4050, L100.0500 ####[facility] [address] [place], [address] CO2 [Moles/Vol] 21.0 mmol/L Normal 21.0-32.0 [facility] Comment on above: Order Comment: .1 Performed By: #### L 500.4050, L100.0500 ####[facility] [address] [place], [address] Creatinine [Mass/Vol] 0.66 mg/dL Low 0.70-1.20 [facility] Comment on above: Order Comment: . Performed By: #### L 500.4050, L100.0500 ####[facility] [address] [place], [address] GAP 11 Normal 5-15 [facility] Comment on above: Order Comment: . Performed By: #### L 500.4050, L100.0500 ####[facility] [address] [place], [address] GFR/1.73 sq M.predicted among non-blacks MDRD (S/P/Bld) [Vol rate/Area] 88 mL/min/{1.73_m2} Normal >60 [facility] Comment on above: Order Comment: . Result Comment: mL/m in/1.73m2 CKD-EPI Creatinine Equation (2020) Performed By: #### L 500.4050, L100.0500 ####[facility] [address] [place], [address] Globulin (S) [Mass/Vol] 2.6 g/dL Normal 2.2-4.2 [facility] Comment on above: Order Comment: . Performed By: #### L 500.4050, L100.0500 ####[facility] [address] [place], [address] Glucose [Mass/Vol] 93 mg/dL Normal 70-99 [facility] Comment on above: Order Comment: 202.1 Performed By: #### L 500.4050, L100.0500 ####[facility] [address] [place], [address] Potassium [Moles/Vol] 4.0 mmol/L Normal 3.3-5.1 [facility] Comment on above: Order Comment: 202.1 Performed By: #### L 500.4050, L100.0500 ####[facility] [address] [place], [address] Sodium [Moles/Vol] 128 mmol/L Low 133-145 [facility] Comment on above: Order Comment: 202.1 Performed By: #### L 500.4050, L100.0500 ####[facility] [address] [place], [address] T PROT 6.2 g/dL Normal 5.9-8.4 [facility] Comment on above: Order Comment: 202.1 Performed By: #### L 500.4050, L100.0500 ####[facility] [address] [place], [address] Urea nitrogen [Mass/Vol] 11 mg/dL Normal 4-19 [facility] Comment on above: Order Comment: 202.1 Performed By: #### L 500.4050, L100.0500 ####[facility] [address] [place], [address] 3601-27-2025 36 Pt scheduled for cys to with Dr. Georges on 03/02 at 9:20am. This is the earliest facility can bring the patient in for appt as Pt under nursing home . Ayala aware someone has to come in with patient if transfer/ambulation help needed. Normal [facility] 36on 01-26-2025 36 Message released to patient as written. Patient's further questions if applicable: message was released to Ayala and she would like to schedule cystoscopy Were all questions from office addressed or relayed to the patient from encounter: Yes Normal [facility] Basic Metabolic Profile (BMP )on 01-26-2025 BUN/CRE 18.0 RATIO Normal 10-20 [facility] Comment on above: Order Comment: .1 Performed By: #### L 100.0500, L500.2500 ####[facility] [address] [place], [address] Calcium [Mass/Vol] 9.1 mg/dL Normal 7.6-11.0 [facility] Comment on above: Order Comment: . Performed By: #### L 100.0500, L500.2500 ####[facility] [address] [place], [address] Chloride [Moles/Vol] 102 mmol/L Normal 98-108 [facility] Comment on above: Order Comment: . Performed By: #### L 100.0500, L500.2500 ####[facility] [address] [place], [address] CO2 [Moles/Vol] 22.0 mmol/L Normal 21.0-32.0 [facility] Comment on above: Order Comment: . Performed By: #### L 100.0500, L500.2500 ####[facility] [address] [place], [address] Creatinine [Mass/Vol] 0.63 mg/dL Low 0.70-1.20 [facility] Comment on above: Order Comment: .1 Performed By: #### L 100.0500, L500.2500 ####[facility] [address] [place], [address] GAP 11 Normal 5-15 [facility] Comment on above: Order Comment: .1 Performed By: #### L 100.0500, L500.2500 ####[facility] [address] [place], [address] GFR/1.73 sq M.predicted among non-blacks MDRD (S/P/Bld) [Vol rate/Area] 89 mL/min/{1.73_m2} Normal >60 [facility] Comment on above: Order Comment: . Result Comment: mL/m in/1.73m2 CKD-EPI Creatinine Equation (2020) Performed By: #### L 100.0500, L500.2500 ####[facility] [address] [place], [address] Glucose [Mass/Vol] 102 mg/dL High 70-99 [facility] Comment on above: Order Comment: . Performed By: #### L 100.0500, L500.2500 ####[facility] [address] [place], [address] Potassium [Moles/Vol] 4.0 mmol/L Normal 3.3-5.1 [facility] Comment on above: Order Comment: . Performed By: #### L 100.0500, L500.2500 ####[facility] [address] [place], [address] Sodium [Moles/Vol] 134 mmol/L Normal 133-145 [facility] Comment on above: Order Comment: . Performed By: #### L 100.0500, L500.2500 ####[facility] [address] [place], [address] Urea nitrogen [Mass/Vol] 11 mg/dL Normal 4-19 [facility] Comment on above: Order Comment: . Performed By: #### L 100.0500, L500.2500 ####[facility] [address] [place], [address] CBC-Complete Blood Cnt No Di ffon 05-05-2025 Erythrocyte distribution width (RBC) [Ratio] 12.9 % Normal 11.6-14.6 [facility] Comment on above: Order Comment: . Performed By: #### L 100.0500, L500.2500 ####[facility] [address] [place], [address] Hematocrit (Bld) [Volume fraction] 37.3 % Normal 37-47 [facility] Comment on above: Order Comment: . Performed By: #### L 100.0500, L500.2500 ####[facility] [address] [place], [address] Hemoglobin (Bld) [Mass/Vol] 12.3 g/dL Normal 12.0-15.0 [facility] Comment on above: Order Comment: . Performed By: #### L 100.0500, L500.2500 ####[facility] [address] [place], [address] MCH (RBC) [Entitic mass] 29.6 pg Normal 27.0-32.0 [facility] Comment on above: Order Comment: . Performed By: #### L 100.0500, L500.2500 ####[facility] [address] [place], [address] MCHC (RBC) [Mass/Vol] 33.0 g/dL Normal 32-36 [facility] Comment on above: Order Comment: . Performed By: #### L 100.0500, L500.2500 ####[facility] [address] [place], [address] MCV (RBC) [Entitic vol] 89.9 fL Normal 81-99 [facility] Comment on above: Order Comment: . Performed By: #### L 100.0500, L500.2500 ####[facility] [address] [place], [address] Platelet mean volume (Bld) [Entitic vol] 9.8 fL Normal 6.2-12.0 [facility] Comment on above: Order Comment: 202.1 Performed By: #### L 100.0500, L500.2500 ####[facility] [address] [place], [address] Platelets (Bld) [#/Vol] 295 10*3/uL Normal 150-450 [facility] Comment on above: Order Comment: 202.1 Performed By: #### L 100.0500, L500.2500 ####[facility] [address] [place], [address] RBC (Bld) [#/Vol] 4.15 10*6/uL Low 4.2-5.4 [facility] Comment on above: Order Comment: 202.1 Performed By: #### L 100.0500, L500.2500 ####[facility] [address] [place], [address] RDW SD 42.5 fl Normal 35.1-43.9 [facility] Comment on above: Order Comment: 202.1 Performed By: #### L 100.0500, L500.2500 ####[facility] [address] [place], [address] WBC (Bld) [#/Vol] 5.9 10*3/uL Normal 4.4-11.0 [facility] Comment on above: Order Comment: 202.1 Performed By: #### L 100.0500, L500.2500 ####[facility] [address] [place], [address] Urine Cultureon 01-24-2025 URC Normal [facility] Comment on above: Performed By: #### M 100.2200, L400.0001 ####[facility] [address] [place], [address] 36on 01-23-2025 36 Keep richter and needs follow up for cystoscopy in the next couple of weeks. Normal [facility] 36 Ayala with [facility] left a VM in regards to the patient and advised that the patient did not pass the VT conducted at the facility and was bladder scanned for 674 mL so richter was reinserted. The patient states the provider at the facility states they used to do bladder clamping back in the day and is asking if this could be performed for the patient. Please advise if this is something still performed and recommended. Normal [facility] Protein+Creatinine Ratio,Uri neon 01-23-2025 PROT:CRE RATIO 202 mg/g CRE High 0-200 [facility] Comment on above: Performed By: #### L 501.0900, L500.2500 ####[facility] [address] [place], [address] Protein (U) [Mass/Vol] 19.3 mg/dL High 0.0-12.0 [facility] Comment on above: Performed By: #### L 501.0900, L500.2500 ####[facility] [address] [place], [address] UR CREAT 95.40 mg/dL Normal 28.00-217.0 0 [facility] Comment on above: Performed By: #### L 501.0900, L500.2500 ####[facility] [address] [place], [address] Basic Metabolic Profile (BMP )on 01-22-2025 BUN/CRE 26.3 RATIO High 10-20 [facility] Comment on above: Order Comment: Performed By: #### L 501.0900, L500.2500 ####[facility] [address] [place], [address] Calcium [Mass/Vol] 9.0 mg/dL Normal 7.6-11.0 [facility] Comment on above: Order Comment: Performed By: #### L 501.0900, L500.2500 ####[facility] [address] [place], [address] Chloride [Moles/Vol] 100 mmol/L Normal 98-108 [facility] Comment on above: Order Comment: Performed By: #### L 501.0900, L500.2500 ####[facility] [address] [place], [address] CO2 [Moles/Vol] 22.2 mmol/L Normal 21.0-32.0 [facility] Comment on above: Order Comment: Performed By: #### L 501.0900, L500.2500 ####[facility] [address] [place], [address] Creatinine [Mass/Vol] 0.67 mg/dL Low 0.70-1.20 [facility] Comment on above: Order Comment: Performed By: #### L 501.0900, L500.2500 ####[facility] [address] [place], [address] GAP 10 Normal 5-15 [facility] Comment on above: Order Comment: Performed By: #### L 501.0900, L500.2500 ####[facility] [address] [place], [address] GFR/1.73 sq M.predicted among non-blacks MDRD (S/P/Bld) [Vol rate/Area] 88 mL/min/{1.73_m2} Normal >60 [facility] Comment on above: Order Comment: Result Comment: mL/m in/1.73m2 CKD-EPI Creatinine Equation (2020) Performed By: #### L 501.0900, L500.2500 ####[facility] [address] [place], [address] Glucose [Mass/Vol] 102 mg/dL High 70-99 [facility] Comment on above: Order Comment: Performed By: #### L 501.0900, L500.2500 ####[facility] [address] [place], [address] Potassium [Moles/Vol] 4.3 mmol/L Normal 3.3-5.1 [facility] Comment on above: Order Comment: Performed By: #### L 501.0900, L500.2500 ####[facility] [address] [place], [address] Sodium [Moles/Vol] 132 mmol/L Low 133-145 [facility] Comment on above: Order Comment: Performed By: #### L 501.0900, L500.2500 ####[facility] [address] [place], [address] Urea nitrogen [Mass/Vol] 18 mg/dL Normal 4-19 [facility] Comment on above: Order Comment: Performed By: #### L 501.0900, L500.2500 ####[facility] [address] [place], [address] Office Visiton 01-22-2025 Follow-up visit [id number] Americo Lewis 1945 F Date Provider Department Center 01/22/2025 ROSITA FLOYD [facility] URO None No family history on file Level of Service:84201 ID OFFICE/OUTPATIENT NEW MODERATE MDM 45 MINUTES Reason for Visit and Comments: Urinary Retention [246075] - VT Hospitalized for fall and broken patella Normal [facility] Progress Noteon 01-22-2025 Progress Note Pt presents for Voiding Trial Instilled 250CC Sterile Water into Urinary Bladder Removed 16Fr catheter after deflating 10cc balloon Pt was able to void 100 cc immediately Normal [facility] Progress Note . Urology Office Visit [facility] [address], [address] [place] [address] Visit type: New Patient Reason for Visit: Urinary Retention (VT/Hospitalized for fall and broken patella) Assessment and Plan Diagnoses and all orders for this visit: Urinary retention VT today was successful. Ok to leave catheter out. Instructions provided for SNF regarding monitoring UO and replacing richter if pt is unable to urinate. No follow-ups on file. Subjective HPI Jero is an 79 year old female here for follow up after hospital admission at [facility] after falling and injuring her left knee. While in the hospital she has some urinary retention and a richter catheter was placed. Prior to discharge, a VT was performed and she was unable to void so the richter was replaced. VT today was successful. Ok to leave catheter out. Instructions provided for SNF regarding monitoring UO and replacing richter if pt is unable to urinate. Review of Systems Allergies Allergen Reactions Atorvastatin Unknown Other Reaction(s): myalgia Codeine Nausea Only Simvastatin Other Propoxyphene Nausea Only Other Reaction(s): vomiting Current Outpatient Medications: acetaminophen (Tylenol Extra Strength) 500 MG tablet, Take 500 mg by mouth every 8 hours as needed for mild pain (1-3)., Disp: , Rfl: bisacodyl (Dulcolax) 10 MG suppository, Insert 10 mg into the rectum Daily as needed for constipation., Disp: , Rfl: busPIRone (Buspar) 5 MG tablet, Take 10 mg by mouth 2 times daily., Disp: , Rfl: carvedilol (Coreg) 3.125 MG tablet, Take 6.25 mg by mouth 2 times daily (with meals)., Disp: , Rfl: clonazePAM (KlonoPIN) 1 MG tablet, Take 1 mg by mouth Nightly., Disp: , Rfl: ipratropium (Atrovent) 0.03 % nasal spray, Administer 1 spray into each nostril 2 times daily., Disp: , Rfl: levothyroxine (Synthroid, Levoxyl) 112 MCG tablet, Take by mouth every morning (before breakfast)., Disp: , Rfl: losartan (Cozaar) 100 MG tablet, Take 100 mg by mouth daily., Disp: , Rfl: magnesium citrate solution, Take 300 mL by mouth as needed (constipation)., Disp: , Rfl: magnesium hydroxide (Milk of Magnesia) 400 MG/5ML suspension, Take 30 mL by mouth Nightly. Prn constipation, Disp: , Rfl: oxyCODONE (Oxy-IR) 5 MG immediate release capsule, Take 5 mg by mouth every 4 hours as needed for severe pain (7-10)., Disp: , Rfl: senna-docusate (Rupa-Colace) 8.6-50 MG tablet, Take 1 tablet by mouth. prn, Disp: , Rfl: sertraline (Zoloft) 100 MG tablet, Take 150 mg by mouth daily., Disp: , Rfl: tamsulosin (Flomax) 0.4 MG 24 hr capsule, Take 0.4 mg by mouth daily., Disp: , Rfl: No past medical history on file. Social History Socioeconomic History Marital status: Unknown No past surgical history on file. No past surgical history on file. No family history on file. Objective BP 110/54 Pulse 66 Physical Exam Constitutional: Appearance: Normal appearance. Neurological: General: No focal deficit present. Mental Status: She is alert. Psychiatric: Mood and Affect: Mood normal. Behavior: Behavior normal. Data Reviewed POCT: Labs: Imaging/Testing: Chart Clean Up: There are no discontinued medications. 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 Urinalysis, Completeon 01-22 AMORPHOUS 1+ Normal [facility] Comment on above: Order Comment: TREVOR TER SPECIMEN Performed By: #### M 100.2200, L400.0001 ####[facility] [address] [facility], [address] WBC 0-5 SEEN Normal 0-5 [facility] Comment on above: Order Comment: TREVOR TER SPECIMEN Performed By: #### M 100.2200, L400.0001 ####[facility] [address] [place], [address] BACTERIA 0 SEEN Normal None Seen [facility] Comment on above: Order Comment: TREVOR TER SPECIMEN Performed By: #### M 100.2200, L400.0001 ####[facility] [address] [place], [address] EPI,SQUAMOUS 0 SEEN Normal 5-10 [facility] Comment on above: Order Comment: TREVOR TER SPECIMEN Performed By: #### M 100.2200, L400.0001 ####[facility] [address] [place], [address] Mucus Ql (Urine sed) 0 SEEN Normal [facility] Comment on above: Order Comment: TREVOR TER SPECIMEN Performed By: #### M 100.2200, L400.0001 ####[facility] [address] [place], [address] RBC 0 SEEN Normal 0-5 [facility] Comment on above: Order Comment: TREVOR TER SPECIMEN Performed By: #### M 100.2200, L400.0001 ####[facility] [address] [place], [address] 12 Lead EKGon 01-19-2025 12 Lead EKG Normal [facility] 36on 01-19-2025 36 Returned the call to residential. Spoke with nurse Vita. Will send fax documents of pt history and discharge information from [facility]. Scheduled new patient appt 01/22/25 10:00 AM w/Rosita for *hosp follow up [facility]/urinary retention/richter removal/voiding trial* Per Vita the patient failed one VT while in hospital unclear of date possibly 01/13/25. [facility] 36 Name of Caller: Obi Contact Reason for Appointment: Obi called in to get patient established for urinary retention and not being able to remove richter. Please be advised Office Name: [facility] Basic Metabolic Profile (BMP )on 01-19-2025 BUN/CRE 29.9 RATIO High 10-20 [facility] Comment on above: Order Comment: .1 Performed By: #### L 500.2500, L100.0500 ####[facility] [address] [place], [address] Calcium [Mass/Vol] 9.1 mg/dL Normal 7.6-11.0 [facility] Comment on above: Order Comment: 202.1 Performed By: #### L 500.2500, L100.0500 ####[facility] [address] [place], [address] Chloride [Moles/Vol] 103 mmol/L Normal 98-108 [facility] Comment on above: Order Comment: .1 Performed By: #### L 500.2500, L100.0500 ####[facility] [address] [place], [address] CO2 [Moles/Vol] 22.7 mmol/L Normal 21.0-32.0 [facility] Comment on above: Order Comment: .1 Performed By: #### L 500.2500, L100.0500 ####[facility] [address] [place], [address] Creatinine [Mass/Vol] 0.65 mg/dL Low 0.70-1.20 [facility] Comment on above: Order Comment: . Performed By: #### L 500.2500, L100.0500 ####[facility] [address] [place], [address] GAP 11 Normal 5-15 [facility] Comment on above: Order Comment: . Performed By: #### L 500.2500, L100.0500 ####[facility] [address] [place], [address] GFR/1.73 sq M.predicted among non-blacks MDRD (S/P/Bld) [Vol rate/Area] 88 mL/min/{1.73_m2} Normal >60 [facility] Comment on above: Order Comment: . Result Comment: mL/m in/1.73m2 CKD-EPI Creatinine Equation (2020) Performed By: #### L 500.2500, L100.0500 ####[facility] [address] [place], [address] Glucose [Mass/Vol] 97 mg/dL Normal 70-99 [facility] Comment on above: Order Comment: .1 Performed By: #### L 500.2500, L100.0500 ####[facility] [address] [place], [address] Potassium [Moles/Vol] 3.9 mmol/L Normal 3.3-5.1 [facility] Comment on above: Order Comment: . Performed By: #### L 500.2500, L100.0500 ####[facility] [address] [place], [address] Sodium [Moles/Vol] 136 mmol/L Normal 133-145 [facility] Comment on above: Order Comment: . Performed By: #### L 500.2500, L100.0500 ####[facility] [address] [place], [address] Urea nitrogen [Mass/Vol] 20 mg/dL High 4-19 [facility] Comment on above: Order Comment: . Performed By: #### L 500.2500, L100.0500 ####[facility] [address] [place], [address] CBC-Complete Blood Cnt No Di ffon 01-19-2025 Erythrocyte distribution width (RBC) [Ratio] 13.3 % Normal 11.6-14.6 [facility] Comment on above: Order Comment: . Performed By: #### L 500.2500, L100.0500 ####[facility] [address] [place], [address] Hematocrit (Bld) [Volume fraction] 35.6 % Low 37-47 [facility] Comment on above: Order Comment: . Performed By: #### L 500.2500, L100.0500 ####[facility] [address] [place], [address] Hemoglobin (Bld) [Mass/Vol] 11.7 g/dL Low 12.0-15.0 [facility] Comment on above: Order Comment: .1 Performed By: #### L 500.2500, L100.0500 ####[facility] [address] [place], [address] MCH (RBC) [Entitic mass] 29.8 pg Normal 27.0-32.0 [facility] Comment on above: Order Comment: .1 Performed By: #### L 500.2500, L100.0500 ####[facility] [address] [place], [address] MCHC (RBC) [Mass/Vol] 32.9 g/dL Normal 32-36 [facility] Comment on above: Order Comment: .1 Performed By: #### L 500.2500, L100.0500 ####[facility] [address] [place], [address] MCV (RBC) [Entitic vol] 90.8 fL Normal 81-99 [facility] Comment on above: Order Comment: .1 Performed By: #### L 500.2500, L100.0500 ####[facility] [address] [place], [address] Platelet mean volume (Bld) [Entitic vol] 9.7 fL Normal 6.2-12.0 [facility] Comment on above: Order Comment: .1 Performed By: #### L 500.2500, L100.0500 ####[facility] [address] [place], [address] Platelets (Bld) [#/Vol] 318 10*3/uL Normal 150-450 [facility] Comment on above: Order Comment: .1 Performed By: #### L 500.2500, L100.0500 ####[facility] [address] [place], [address] RBC (Bld) [#/Vol] 3.92 10*6/uL Low 4.2-5.4 [facility] Comment on above: Order Comment: 202.1 Performed By: #### L 500.2500, L100.0500 ####[facility] [address] [place], [address] RDW SD 44.8 fl High 35.1-43.9 [facility] Comment on above: Order Comment: . Performed By: #### L 500.2500, L100.0500 ####[facility] [address] [place], [address] WBC (Bld) [#/Vol] 6.5 10*3/uL Normal 4.4-11.0 [facility] Comment on above: Order Comment: . Performed By: #### L 500.2500, L100.0500 ####[facility] [address] [place], [address] Basic Metabolic Profile (BMP )on 01-16-2025 BUN Normal 4-19 [facility] Comment on above: Result Comment: Canc elled via OM: Order cancelled - Patient discharged Performed By: #### L 500.2500, L100.0100 ####[facility] [address] [place], [address] BUN/CRE Normal 10-20 [facility] Comment on above: Result Comment: Canc elled via OM: Order cancelled - Patient discharged Performed By: #### L 500.2500, L100.0100 ####[facility] [address] [place], [address] Calcium Normal 7.6-11.0 [facility] Comment on above: Result Comment: Canc elled via OM: Order cancelled - Patient discharged Performed By: #### L 500.2500, L100.0100 ####[facility] [address] [place], [address] CL Normal 98-108 [facility] Comment on above: Result Comment: Canc elled via OM: Order cancelled - Patient discharged Performed By: #### L 500.2500, L100.0100 ####[facility] [address] [place], [address] CO2 Normal 21.0-32.0 [facility] Comment on above: Result Comment: Canc elled via OM: Order cancelled - Patient discharged Performed By: #### L 500.2500, L100.0100 ####[facility] [address] [place], [address] CREAT,SERUM Normal 0.70-1.20 [facility] Comment on above: Result Comment: Canc elled via OM: Order cancelled - Patient discharged Performed By: #### L 500.2500, L100.0100 ####[facility] [address] [place], [address] eGFR Normal >60 [facility] Comment on above: Result Comment: Canc elled via OM: Order cancelled - Patient discharged Performed By: #### L 500.2500, L100.0100 ####[facility] [address] [place], [address] GAP Normal 5-15 [facility] Comment on above: Result Comment: Canc elled via OM: Order cancelled - Patient discharged Performed By: #### L 500.2500, L100.0100 ####[facility] [address] [place], [address] GLU Normal 70-99 [facility] Comment on above: Result Comment: Canc elled via OM: Order cancelled - Patient discharged Performed By: #### L 500.2500, L100.0100 ####[facility] [address] [place], [address] Potassium Normal 3.3-5.1 [facility] Comment on above: Result Comment: Canc elled via OM: Order cancelled - Patient discharged Performed By: #### L 500.2500, L100.0100 ####[facility] [address] [place], [address] Basic Metabolic Profile (BMP) Normal 133-145 [facility] Comment on above: Result Comment: Canc elled via OM: Order cancelled - Patient discharged Performed By: #### L 500.2500, L100.0100 ####[facility] [address] [place], [address] CBC W/Diff, Automatedon 04-2 Absolute Neut Normal 2.0-7.7 [facility] Comment on above: Result Comment: Canc elled via OM: Order cancelled - Patient discharged Performed By: #### L 500.2500, L100.0100 ####[facility] [address] [place], [address] HCT Normal 37-47 [facility] Comment on above: Result Comment: Canc elled via OM: Order cancelled - Patient discharged Performed By: #### L 500.2500, L100.0100 ####[facility] [address] [place], [address] HGB Normal 12.0-15.0 [facility] Comment on above: Result Comment: Canc elled via OM: Order cancelled - Patient discharged Performed By: #### L 500.2500, L100.0100 ####[facility] [address] [place], [address] MCH Normal 27.0-32.0 [facility] Comment on above: Result Comment: Canc elled via OM: Order cancelled - Patient discharged Performed By: #### L 500.2500, L100.0100 ####[facility] [address] [place], [address] MCHC Normal 32-36 [facility] Comment on above: Result Comment: Canc elled via OM: Order cancelled - Patient discharged Performed By: #### L 500.2500, L100.0100 ####[facility] [address] [place], [address] MCV Normal 81-99 [facility] Comment on above: Result Comment: Canc elled via OM: Order cancelled - Patient discharged Performed By: #### L 500.2500, L100.0100 ####[facility] [address] [place], [address] NEUT% Normal 47-70 [facility] Comment on above: Result Comment: Canc elled via OM: Order cancelled - Patient discharged Performed By: #### L 500.2500, L100.0100 ####[facility] [address] [place], [address] PLT Normal 150-450 [facility] Comment on above: Result Comment: Canc elled via OM: Order cancelled - Patient discharged Performed By: #### L 500.2500, L100.0100 ####[facility] [address] [place], [address] RBC Normal 4.2-5.4 [facility] Comment on above: Result Comment: Canc elled via OM: Order cancelled - Patient discharged Performed By: #### L 500.2500, L100.0100 ####[facility] [address] [place], [address] RDW CV Normal 11.6-14.6 [facility] Comment on above: Result Comment: Canc elled via OM: Order cancelled - Patient discharged Performed By: #### L 500.2500, L100.0100 ####[facility] [address] [place], [address] RDW SD Normal 35.1-43.9 [facility] Comment on above: Result Comment: Canc elled via OM: Order cancelled - Patient discharged Performed By: #### L 500.2500, L100.0100 ####[facility] [address] [place], [address] WBC Normal 4.4-11.0 [facility] Comment on above: Result Comment: Canc elled via OM: Order cancelled - Patient discharged Performed By: #### L 500.2500, L100.0100 ####[facility] [address] [place], [address] Basic Metabolic Profile (BMP )on 01-11-2025 BUN/CRE 24.5 RATIO High 07-13 [facility] Comment on above: Performed By: #### L 500.2500, L100.0100 ####[facility] [address] [place], [address] Calcium [Mass/Vol] 9.3 mg/dL Normal 7.6-11.0 [facility] Comment on above: Performed By: #### L 500.2500, L100.0100 ####[facility] [address] [place], [address] Chloride [Moles/Vol] 104 mmol/L Normal 98-108 [facility] Comment on above: Performed By: #### L 500.2500, L100.0100 ####[facility] [address] [place], [address] CO2 [Moles/Vol] 26.4 mmol/L Normal 21.0-32.0 [facility] Comment on above: Performed By: #### L 500.2500, L100.0100 ####[facility] [address] [place], [address] Creatinine [Mass/Vol] 0.62 mg/dL Low 0.70-1.20 [facility] Comment on above: Performed By: #### L 500.2500, L100.0100 ####[facility] [address] [place], [address] ECRCL 58.45 ml/min Normal 50-250 [facility] Comment on above: Performed By: #### L 500.2500, L100.0100 ####[facility] [address] [place], [address] GAP 10 Normal 5-15 [facility] Comment on above: Performed By: #### L 500.2500, L100.0100 ####[facility] [address] [place], [address] GFR/1.73 sq M.predicted among non-blacks MDRD (S/P/Bld) [Vol rate/Area] 89 mL/min/{1.73_m2} Normal >60 [facility] Comment on above: Result Comment: mL/m in/1.73m2 CKD-EPI Creatinine Equation (2020) Performed By: #### L 500.2500, L100.0100 ####[facility] [address] [place], [address] Glucose [Mass/Vol] 93 mg/dL Normal 70-99 [facility] Comment on above: Performed By: #### L 500.2500, L100.0100 ####[facility] [address] [place], [address] Potassium [Moles/Vol] 4.0 mmol/L Normal 3.3-5.1 [facility] Comment on above: Performed By: #### L 500.2500, L100.0100 ####[facility] [address] [place], [address] Sodium [Moles/Vol] 141 mmol/L Normal 133-145 [facility] Comment on above: Performed By: #### L 500.2500, L100.0100 ####[facility] [address] [place], [address] Urea nitrogen [Mass/Vol] 15 mg/dL Normal 4-19 [facility] Comment on above: Performed By: #### L 500.2500, L100.0100 ####[facility] [address] [place], [address] CBC W/Diff, Automatedon 04-2 0-2024 Absolute Lymph 1.28 X10 3/uL Normal 0.83-4.51 [facility] Comment on above: Performed By: #### L 500.2500, L100.0100 ####[facility] [address] [place], [address] Absolute Neut 2.0 X10 3/uL Normal 2.0-7.7 [facility] Comment on above: Performed By: #### L 500.2500, L100.0100 ####[facility] [address] [place], [address] Basophils/100 WBC (Bld) 0.8 % Normal 0-1 [facility] Comment on above: Performed By: #### L 500.2500, L100.0100 ####[facility] [address] [place], [address] Eosinophils/100 WBC (Bld) 7.6 % High 0-5 [facility] Comment on above: Performed By: #### L 500.2500, L100.0100 ####[facility] [address] [place], [address] Erythrocyte distribution width (RBC) [Ratio] 14.0 % Normal 11.6-14.6 [facility] Comment on above: Performed By: #### L 500.2500, L100.0100 ####[facility] [address] [place], [address] Hematocrit (Bld) [Volume fraction] 37.6 % Normal 37-47 [facility] Comment on above: Performed By: #### L 500.2500, L100.0100 ####[facility] [address] [place], [address] Hemoglobin (Bld) [Mass/Vol] 12.0 g/dL Normal 12.0-15.0 [facility] Comment on above: Performed By: #### L 500.2500, L100.0100 ####[facility] [address] [place], [address] IG% 0.300 Normal 0.0-0.9 [facility] Comment on above: Result Comment: IG% - Immature Granulocytes (promyelocytes, myelocytes andmetamyelocytes) > 1% indicates that a LEFT SHIFT is Present. Performed By: #### L 500.2500, L100.0100 ####[facility] [address] [place], [address] Lymphocytes/100 WBC (Bld) 32.5 % Normal 19-41 [facility] Comment on above: Performed By: #### L 500.2500, L100.0100 ####[facility] [address] [place], [address] MCH (RBC) [Entitic mass] 29.9 pg Normal 27.0-32.0 [facility] Comment on above: Performed By: #### L 500.2500, L100.0100 ####[facility] [address] [place], [address] MCHC (RBC) [Mass/Vol] 31.9 g/dL Low 32-36 [facility] Comment on above: Performed By: #### L 500.2500, L100.0100 ####[facility] [address] [place], [address] MCV (RBC) [Entitic vol] 93.5 fL Normal 81-99 [facility] Comment on above: Performed By: #### L 500.2500, L100.0100 ####[facility] [address] [place], [address] Monocytes/100 WBC (Bld) 9.1 % Normal 0-10 [facility] Comment on above: Performed By: #### L 500.2500, L100.0100 ####[facility] [address] [place], [address] Neutrophils/100 WBC (Bld) 49.7 % Normal 47-70 [facility] Comment on above: Performed By: #### L 500.2500, L100.0100 ####[facility] [address] [place], [address] Nucleated RBC (Bld) [#/Vol] 0 10*3/uL Normal 0-5 [facility] Comment on above: Performed By: #### L 500.2500, L100.0100 ####[facility] [address] [place], [address] Platelet mean volume (Bld) [Entitic vol] 9.4 fL Normal 6.2-12.0 [facility] Comment on above: Performed By: #### L 500.2500, L100.0100 ####[facility] [address] [place], [address] Platelets (Bld) [#/Vol] 336 10*3/uL Normal 150-450 [facility] Comment on above: Performed By: #### L 500.2500, L100.0100 ####[facility] [address] [place], [address] RBC (Bld) [#/Vol] 4.02 10*6/uL Low 4.2-5.4 [facility] Comment on above: Performed By: #### L 500.2500, L100.0100 ####[facility] [address] [place], [address] RDW SD 48.6 fl High 35.1-43.9 [facility] Comment on above: Performed By: #### L 500.2500, L100.0100 ####[facility] [address] [place], [address] WBC (Bld) [#/Vol] 3.9 10*3/uL Low 4.4-11.0 [facility] Comment on above: Performed By: #### L 500.2500, L100.0100 ####[facility] [address] [place], [address] Basic Metabolic Profile (BMP )on 01-09-2025 BUN/CRE 20.7 RATIO High 10-20 [facility] Comment on above: Performed By: #### L 100.0100, L500.2500 ####[facility] [address] [place], [address] Calcium [Mass/Vol] 9.0 mg/dL Normal 7.6-11.0 [facility] Comment on above: Performed By: #### L 100.0100, L500.2500 ####[facility] [address] [place], [address] Chloride [Moles/Vol] 104 mmol/L Normal 98-108 [facility] Comment on above: Performed By: #### L 100.0100, L500.2500 ####[facility] [address] [place], [address] CO2 [Moles/Vol] 23.2 mmol/L Normal 21.0-32.0 [facility] Comment on above: Performed By: #### L 100.0100, L500.2500 ####[facility] [address] [place], [address] Creatinine [Mass/Vol] 0.74 mg/dL Normal 0.70-1.20 [facility] Comment on above: Performed By: #### L 100.0100, L500.2500 ####[facility] [address] [place], [address] ECRCL 58.45 ml/min Normal 50-250 [facility] Comment on above: Performed By: #### L 100.0100, L500.2500 ####[facility] [address] [place], [address] GAP 11 Normal 5-15 [facility] Comment on above: Performed By: #### L 100.0100, L500.2500 ####[facility] [address] [place], [address] GFR/1.73 sq M.predicted among non-blacks MDRD (S/P/Bld) [Vol rate/Area] 82 mL/min/{1.73_m2} Normal >60 [facility] Comment on above: Result Comment: mL/m in/1.73m2 CKD-EPI Creatinine Equation (2020) Performed By: #### L 100.0100, L500.2500 ####[facility] [address] [place], [address] Glucose [Mass/Vol] 96 mg/dL Normal 70-99 [facility] Comment on above: Performed By: #### L 100.0100, L500.2500 ####[facility] [address] [place], [address] Potassium [Moles/Vol] 3.7 mmol/L Normal 3.3-5.1 [facility] Comment on above: Performed By: #### L 100.0100, L500.2500 ####[facility] [address] [place], [address] Sodium [Moles/Vol] 137 mmol/L Normal 133-145 [facility] Comment on above: Performed By: #### L 100.0100, L500.2500 ####[facility] [address] [place], [address] Urea nitrogen [Mass/Vol] 15 mg/dL Normal 4-19 [facility] Comment on above: Performed By: #### L 100.0100, L500.2500 ####[facility] [address] [place], [address] CBC W/Diff, Automatedon 12-23 Absolute Lymph 1.17 X10 3/uL Normal 0.83-4.51 [facility] Comment on above: Performed By: #### L 100.0100, L500.2500 ####[facility] [address] [place], [address] Absolute Neut 2.5 X10 3/uL Normal 2.0-7.7 [facility] Comment on above: Performed By: #### L 100.0100, L500.2500 ####[facility] [address] [place], [address] Basophils/100 WBC (Bld) 0.9 % Normal 0-1 [facility] Comment on above: Performed By: #### L 100.0100, L500.2500 ####[facility] [address] [place], [address] Eosinophils/100 WBC (Bld) 7.0 % High 0-5 [facility] Comment on above: Performed By: #### L 100.0100, L500.2500 ####[facility] [address] [place], [address] Erythrocyte distribution width (RBC) [Ratio] 14.1 % Normal 11.6-14.6 [facility] Comment on above: Performed By: #### L 100.0100, L500.2500 ####[facility] [address] [place], [address] Hematocrit (Bld) [Volume fraction] 33.1 % Low 37-47 [facility] Comment on above: Performed By: #### L 100.0100, L500.2500 ####[facility] [address] [place], [address] Hemoglobin (Bld) [Mass/Vol] 10.9 g/dL Low 12.0-15.0 [facility] Comment on above: Performed By: #### L 100.0100, L500.2500 ####[facility] [address] [place], [address] IG% 0.400 Normal 0.0-0.9 [facility] Comment on above: Result Comment: IG% - Immature Granulocytes (promyelocytes, myelocytes andmetamyelocytes) > 1% indicates that a LEFT SHIFT is Present. Performed By: #### L 100.0100, L500.2500 ####[facility] [address] [place], [address] Lymphocytes/100 WBC (Bld) 26.2 % Normal 19-41 [facility] Comment on above: Performed By: #### L 100.0100, L500.2500 ####[facility] [address] [place], [address] MCH (RBC) [Entitic mass] 30.1 pg Normal 27.0-32.0 [facility] Comment on above: Performed By: #### L 100.0100, L500.2500 ####[facility] [address] [place], [address] MCHC (RBC) [Mass/Vol] 32.9 g/dL Normal 32-36 [facility] Comment on above: Performed By: #### L 100.0100, L500.2500 ####[facility] [address] [place], [address] MCV (RBC) [Entitic vol] 91.4 fL Normal 81-99 [facility] Comment on above: Performed By: #### L 100.0100, L500.2500 ####[facility] [address] [place], [address] Monocytes/100 WBC (Bld) 10.5 % High 0-10 [facility] Comment on above: Performed By: #### L 100.0100, L500.2500 ####[facility] [address] [place], [address] Neutrophils/100 WBC (Bld) 55.0 % Normal 47-70 [facility] Comment on above: Performed By: #### L 100.0100, L500.2500 ####[facility] [address] [place], [address] Nucleated RBC (Bld) [#/Vol] 0 10*3/uL Normal 0-5 [facility] Comment on above: Performed By: #### L 100.0100, L500.2500 ####[facility] [address] [place], [address] Platelet mean volume (Bld) [Entitic vol] 9.4 fL Normal 6.2-12.0 [facility] Comment on above: Performed By: #### L 100.0100, L500.2500 ####[facility] [address] [place], [address] Platelets (Bld) [#/Vol] 318 10*3/uL Normal 150-450 [facility] Comment on above: Performed By: #### L 100.0100, L500.2500 ####[facility] [address] [place], [address] RBC (Bld) [#/Vol] 3.62 10*6/uL Low 4.2-5.4 [facility] Comment on above: Performed By: #### L 100.0100, L500.2500 ####[facility] [address] [place], [address] RDW SD 47.6 fl High 35.1-43.9 [facility] Comment on above: Performed By: #### L 100.0100, L500.2500 ####[facility] [address] [place], [address] WBC (Bld) [#/Vol] 4.5 10*3/uL Normal 4.4-11.0 [facility] Comment on above: Performed By: #### L 100.0100, L500.2500 ####[facility] [address] [place], [address] Knee 1 or 2 Viewson 01-06-20 25 Knee 1 or 2 Views Normal [facility] Basic Metabolic Profile (BMP )on 01-02-2025 BUN/CRE 29.7 RATIO High 10-20 [facility] Comment on above: Performed By: #### L 500.2500, L100.0100 ####[facility] [address] [place], [address] Calcium [Mass/Vol] 9.1 mg/dL Normal 7.6-11.0 [facility] Comment on above: Performed By: #### L 500.2500, L100.0100 ####[facility] [address] [place], [address] Chloride [Moles/Vol] 104 mmol/L Normal 98-108 [facility] Comment on above: Performed By: #### L 500.2500, L100.0100 ####[facility] [address] [place], [address] CO2 [Moles/Vol] 25.7 mmol/L Normal 21.0-32.0 [facility] Comment on above: Performed By: #### L 500.2500, L100.0100 ####[facility] [address] [place], [address] Creatinine [Mass/Vol] 0.74 mg/dL Normal 0.70-1.20 [facility] Comment on above: Performed By: #### L 500.2500, L100.0100 ####[facility] [address] [place], [address] ECRCL 59.70 ml/min Normal 50-250 [facility] Comment on above: Performed By: #### L 500.2500, L100.0100 ####[facility] [address] [place], [address] GAP 9 Normal 5-15 [facility] Comment on above: Performed By: #### L 500.2500, L100.0100 ####[facility] [address] [place], [address] GFR/1.73 sq M.predicted among non-blacks MDRD (S/P/Bld) [Vol rate/Area] 82 mL/min/{1.73_m2} Normal >60 [facility] Comment on above: Result Comment: mL/m in/1.73m2 CKD-EPI Creatinine Equation (2020) Performed By: #### L 500.2500, L100.0100 ####[facility] [address] [place], [address] Glucose [Mass/Vol] 94 mg/dL Normal 70-99 [facility] Comment on above: Performed By: #### L 500.2500, L100.0100 ####[facility] [address] [place], [address] Potassium [Moles/Vol] 4.2 mmol/L Normal 3.3-5.1 [facility] Comment on above: Performed By: #### L 500.2500, L100.0100 ####[facility] [address] [place], [address] Sodium [Moles/Vol] 138 mmol/L Normal 133-145 [facility] Comment on above: Performed By: #### L 500.2500, L100.0100 ####[facility] [address] [place], [address] Urea nitrogen [Mass/Vol] 22 mg/dL High 4-19 [facility] Comment on above: Performed By: #### L 500.2500, L100.0100 ####[facility] [address] [place], [address] CBC W/Diff, Automatedon 12-23 Absolute Lymph 1.20 X10 3/uL Normal 0.83-4.51 [facility] Comment on above: Performed By: #### L 500.2500, L100.0100 ####[facility] [address] [place], [address] Absolute Neut 2.0 X10 3/uL Normal 2.0-7.7 [facility] Comment on above: Performed By: #### L 500.2500, L100.0100 ####[facility] [address] [place], [address] Basophils/100 WBC (Bld) 1.0 % Normal 0-1 [facility] Comment on above: Performed By: #### L 500.2500, L100.0100 ####[facility] [address] [place], [address] Eosinophils/100 WBC (Bld) 10.2 % High 0-5 [facility] Comment on above: Performed By: #### L 500.2500, L100.0100 ####[facility] [address] [place], [address] Erythrocyte distribution width (RBC) [Ratio] 14.6 % Normal 11.6-14.6 [facility] Comment on above: Performed By: #### L 500.2500, L100.0100 ####[facility] [address] [place], [address] Hematocrit (Bld) [Volume fraction] 32.1 % Low 37-47 [facility] Comment on above: Performed By: #### L 500.2500, L100.0100 ####[facility] [address] [place], [address] Hemoglobin (Bld) [Mass/Vol] 10.3 g/dL Low 12.0-15.0 [facility] Comment on above: Performed By: #### L 500.2500, L100.0100 ####[facility] [address] [place], [address] IG% 0.200 Normal 0.0-0.9 [facility] Comment on above: Result Comment: IG% - Immature Granulocytes (promyelocytes, myelocytes andmetamyelocytes) > 1% indicates that a LEFT SHIFT is Present. Performed By: #### L 500.2500, L100.0100 ####[facility] [address] [place], [address] Lymphocytes/100 WBC (Bld) 29.1 % Normal 19-41 [facility] Comment on above: Performed By: #### L 500.2500, L100.0100 ####[facility] [address] [place], [address] MCH (RBC) [Entitic mass] 29.9 pg Normal 27.0-32.0 [facility] Comment on above: Performed By: #### L 500.2500, L100.0100 ####[facility] [address] [place], [address] MCHC (RBC) [Mass/Vol] 32.1 g/dL Normal 32-36 [facility] Comment on above: Performed By: #### L 500.2500, L100.0100 ####[facility] [address] [place], [address] MCV (RBC) [Entitic vol] 93.3 fL Normal 81-99 [facility] Comment on above: Performed By: #### L 500.2500, L100.0100 ####[facility] [address] [place], [address] Monocytes/100 WBC (Bld) 10.0 % Normal 0-10 [facility] Comment on above: Performed By: #### L 500.2500, L100.0100 ####[facility] [address] [place], [address] Neutrophils/100 WBC (Bld) 49.5 % Normal 47-70 [facility] Comment on above: Performed By: #### L 500.2500, L100.0100 ####[facility] [address] [place], [address] Nucleated RBC (Bld) [#/Vol] 0 10*3/uL Normal 0-5 [facility] Comment on above: Performed By: #### L 500.2500, L100.0100 ####[facility] [address] [place], [address] Platelet mean volume (Bld) [Entitic vol] 9.4 fL Normal 6.2-12.0 [facility] Comment on above: Performed By: #### L 500.2500, L100.0100 ####[facility] [address] [place], [address] Platelets (Bld) [#/Vol] 359 10*3/uL Normal 150-450 [facility] Comment on above: Performed By: #### L 500.2500, L100.0100 ####[facility] [address] [place], [address] RBC (Bld) [#/Vol] 3.44 10*6/uL Low 4.2-5.4 [facility] Comment on above: Performed By: #### L 500.2500, L100.0100 ####[facility] [address] [place], [address] RDW SD 50.0 fl High 35.1-43.9 [facility] Comment on above: Performed By: #### L 500.2500, L100.0100 ####[facility] [address] [place], [address] WBC (Bld) [#/Vol] 4.1 10*3/uL Low 4.4-11.0 [facility] Comment on above: Performed By: #### L 500.2500, L100.0100 ####[facility] [address] [place], [address] Urine Cultureon 01-01-2025 URC Normal [facility] Comment on above: Performed By: #### M 100.2200, L400.0001 ####[facility] [address] [place], [address] Urinalysis, Completeon 12-30 WBC >100 SEEN Normal 0-5 [facility] Comment on above: Order Comment: TREVOR TER SPECIMEN Result Comment: Micr oscopic field is filled. Other elements may beobscured. Performed By: #### M 100.2200, L400.0001 ####[facility] [address] [place], [address] BACTERIA 0 SEEN Normal None Seen [facility] Comment on above: Order Comment: TREVOR TER SPECIMEN Performed By: #### M 100.2200, L400.0001 ####[facility] [address] [place], [address] EPI,SQUAMOUS 0 SEEN Normal -10 [facility] Comment on above: Order Comment: TREVOR TER SPECIMEN Performed By: #### M 100.2200, L400.0001 ####[facility] [address] [place], [address] Mucus Ql (Urine sed) 0 SEEN Normal [facility] Comment on above: Order Comment: TREVOR TER SPECIMEN Performed By: #### M 100.2200, L400.0001 ####[facility] [address] [place], [address] RBC 0 SEEN Normal 0-5 [facility] Comment on above: Order Comment: TREVOR TER SPECIMEN Performed By: #### M 100.2200, L400.0001 ####[facility] [address] [place], [address] Knee 1 or 2 Viewson 12-30-19 25 Knee 1 or 2 Views Normal [facility] Basic Metabolic Profile (BMP )on 12-26-2024 BUN/CRE 16.4 RATIO Normal 10-20 [facility] Comment on above: Result Comment: AMENDED REPORT 12/26/241352 BUN/CRE previously reported as: 16.2 RATIO Performed By: #### L 100.0100, L500.2500 ####[facility] [address] [place], [address] CO2 [Moles/Vol] 19.5 mmol/L Low 21.0-32.0 [facility] Comment on above: Result Comment: AMENDED REPORT 12/26/241352 CO2 previously reported as: 21.2 mmol/L Performed By: #### L 100.0100, L500.2500 ####[facility] [address] [place], [address] Creatinine [Mass/Vol] 1.16 mg/dL Normal 0.70-1.20 [facility] Comment on above: Result Comment: AMENDED REPORT 12/26/241352 CREAT,SERUM previously reported as: 1.17 mg/dL Performed By: #### L 100.0100, L500.2500 ####[facility] [address] [place], [address] ECRCL 41.79 ml/min Low 50-250 [facility] Comment on above: Result Comment: AMENDED REPORT 12/26/241352 Estimated CRCL previously reported as: 41.43 L ml/min Performed By: #### L 100.0100, L500.2500 ####[facility] [address] [place], [address] GAP 16 High 5-15 [facility] Comment on above: Result Comment: AMENDED REPORT 12/26/241352 GAP previously reported as: 14 Performed By: #### L 100.0100, L500.2500 ####[facility] [address] [place], [address] Glucose [Mass/Vol] 118 mg/dL High 70-99 [facility] Comment on above: Result Comment: AMENDED REPORT 12/26/24 1353 GLU previously reported as: 119 H mg/dL Performed By: #### L 100.0100, L500.2500 ####[facility] [address] [place], [address] CBC W/Diff, Automatedon 04-0 -2024 Absolute Lymph 1.14 X10 3/uL Normal 0.83-4.51 [facility] Comment on above: Performed By: #### L 100.0100, L500.2500 ####[facility] [address] [place], [address] Absolute Neut 3.8 X10 3/uL Normal 2.0-7.7 [facility] Comment on above: Performed By: #### L 100.0100, L500.2500 ####[facility] [address] [place], [address] Basophils/100 WBC (Bld) 0.5 % Normal 0-1 [facility] Comment on above: Performed By: #### L 100.0100, L500.2500 ####[facility] [address] [place], [address] Eosinophils/100 WBC (Bld) 5.2 % High 0-5 [facility] Comment on above: Performed By: #### L 100.0100, L500.2500 ####[facility] [address] [place], [address] Erythrocyte distribution width (RBC) [Ratio] 14.2 % Normal 11.6-14.6 [facility] Comment on above: Performed By: #### L 100.0100, L500.2500 ####[facility] [address] [place], [address] Hematocrit (Bld) [Volume fraction] 32.9 % Low 37-47 [facility] Comment on above: Performed By: #### L 100.0100, L500.2500 ####[facility] [address] [place], [address] Hemoglobin (Bld) [Mass/Vol] 10.6 g/dL Low 12.0-15.0 [facility] Comment on above: Performed By: #### L 100.0100, L500.2500 ####[facility] [address] [place], [address] IG% 0.500 Normal 0.0-0.9 [facility] Comment on above: Result Comment: IG% - Immature Granulocytes (promyelocytes, myelocytes andmetamyelocytes) > 1% indicates that a LEFT SHIFT is Present. Performed By: #### L 100.0100, L500.2500 ####[facility] [address] [place], [address] Lymphocytes/100 WBC (Bld) 19.9 % Normal 19-41 [facility] Comment on above: Performed By: #### L 100.0100, L500.2500 ####[facility] [address] [place], [address] MCH (RBC) [Entitic mass] 29.8 pg Normal 27.0-32.0 [facility] Comment on above: Performed By: #### L 100.0100, L500.2500 ####[facility] [address] [place], [address] MCHC (RBC) [Mass/Vol] 32.2 g/dL Normal 32-36 [facility] Comment on above: Performed By: #### L 100.0100, L500.2500 ####[facility] [address] [place], [address] MCV (RBC) [Entitic vol] 92.4 fL Normal 81-99 [facility] Comment on above: Performed By: #### L 100.0100, L500.2500 ####[facility] [address] [place], [address] Monocytes/100 WBC (Bld) 7.5 % Normal 0-10 [facility] Comment on above: Performed By: #### L 100.0100, L500.2500 ####[facility] [address] [place], [address] Neutrophils/100 WBC (Bld) 66.4 % Normal 47-70 [facility] Comment on above: Performed By: #### L 100.0100, L500.2500 ####[facility] [address] [place], [address] Nucleated RBC (Bld) [#/Vol] 0 10*3/uL Normal 0-5 [facility] Comment on above: Performed By: #### L 100.0100, L500.2500 ####[facility] [address] [place], [address] Platelet mean volume (Bld) [Entitic vol] 9.0 fL Normal 6.2-12.0 [facility] Comment on above: Performed By: #### L 100.0100, L500.2500 ####[facility] [address] [place], [address] Platelets (Bld) [#/Vol] 381 10*3/uL Normal 150-450 [facility] Comment on above: Performed By: #### L 100.0100, L500.2500 ####[facility] [address] [place], [address] RBC (Bld) [#/Vol] 3.56 10*6/uL Low 4.2-5.4 [facility] Comment on above: Performed By: #### L 100.0100, L500.2500 ####[facility] [address] [place], [address] RDW SD 47.4 fl High 35.1-43.9 [facility] Comment on above: Performed By: #### L 100.0100, L500.2500 ####[facility] [address] [place], [address] WBC (Bld) [#/Vol] 5.7 10*3/uL Normal 4.4-11.0 [facility] Comment on above: Performed By: #### L 100.0100, L500.2500 ####[facility] [address] [place], [address] Urine Cultureon 12-24-2024 URC Normal [facility] Comment on above: Performed By: #### M 100.2200 ####[facility] [address] [place], [address] Knee 1 or 2 Viewson 12-23-19 25 Knee 1 or 2 Views Normal [facility] HH, Hemoglobin AND Hematocri ton 12-20-2024 Hematocrit (Bld) [Volume fraction] 29.5 % Low 37-47 [facility] Comment on above: Performed By: #### L 100.0600, L503.6030 ####[facility] [address] [place], [address] Hemoglobin (Bld) [Mass/Vol] 9.8 g/dL Low 12.0-15.0 [facility] Comment on above: Performed By: #### L 100.0600, L503.6030 ####[facility] [address] [place], [address] Iron+Iron Binding Capacityon 12-20-2024 Iron [Mass/Vol] 36 ug/dL Low 50-170 [facility] Comment on above: Performed By: #### L 100.0600, L503.6030 ####[facility] [address] [place], [address] IRON SATURATION 20.0 Normal 13-59 [facility] Comment on above: Performed By: #### L 100.0600, L503.6030 ####[facility] [address] [place], [address] UIBC 146 ug/dL Low 228-428 [facility] Comment on above: Performed By: #### L 100.0600, L503.6030 ####[facility] [address] [place], [address] 12 Lead EKGon 12-19-2024 12 Lead EKG Normal [facility] Basic Metabolic Profile (BMP )on 12-19-2024 BUN/CRE 26.6 RATIO High 10-20 [facility] Comment on above: Performed By: #### L 500.2500, L100.0100 ####[facility] [address] [place], [address] Calcium [Mass/Vol] 8.4 mg/dL Normal 7.6-11.0 [facility] Comment on above: Performed By: #### L 500.2500, L100.0100 ####[facility] [address] [place], [address] Chloride [Moles/Vol] 101 mmol/L Normal 98-108 [facility] Comment on above: Performed By: #### L 500.2500, L100.0100 ####[facility] [address] [place], [address] CO2 [Moles/Vol] 26.1 mmol/L Normal 21.0-32.0 [facility] Comment on above: Performed By: #### L 500.2500, L100.0100 ####[facility] [address] [place], [address] Creatinine [Mass/Vol] 0.65 mg/dL Low 0.70-1.20 [facility] Comment on above: Performed By: #### L 500.2500, L100.0100 ####[facility] [address] [place], [address] ECRCL 60.58 ml/min Normal 50-250 [facility] Comment on above: Performed By: #### L 500.2500, L100.0100 ####[facility] [address] [place], [address] GAP 7 Normal 5-15 [facility] Comment on above: Performed By: #### L 500.2500, L100.0100 ####[facility] [address] [place], [address] GFR/1.73 sq M.predicted among non-blacks MDRD (S/P/Bld) [Vol rate/Area] 88 mL/min/{1.73_m2} Normal >60 [facility] Comment on above: Result Comment: mL/m in/1.73m2 CKD-EPI Creatinine Equation (2020) Performed By: #### L 500.2500, L100.0100 ####[facility] [address] [place], [address] Glucose [Mass/Vol] 94 mg/dL Normal 70-99 [facility] Comment on above: Performed By: #### L 500.2500, L100.0100 ####[facility] [address] [place], [address] Potassium [Moles/Vol] 4.2 mmol/L Normal 3.3-5.1 [facility] Comment on above: Performed By: #### L 500.2500, L100.0100 ####[facility] [address] [place], [address] Sodium [Moles/Vol] 134 mmol/L Normal 133-145 [facility] Comment on above: Performed By: #### L 500.2500, L100.0100 ####[facility] [address] [place], [address] Urea nitrogen [Mass/Vol] 17 mg/dL Normal 4-19 [facility] Comment on above: Performed By: #### L 500.2500, L100.0100 ####[facility] [address] [place], [address] CBC W/Diff, Automatedon 11-23 Absolute Lymph 1.24 X10 3/uL Normal 0.83-4.51 [facility] Comment on above: Performed By: #### L 500.2500, L100.0100 ####[facility] [address] [place], [address] Absolute Neut 4.1 X10 3/uL Normal 2.0-7.7 [facility] Comment on above: Performed By: #### L 500.2500, L100.0100 ####[facility] [address] [place], [address] Basophils/100 WBC (Bld) 0.5 % Normal 0-1 [facility] Comment on above: Performed By: #### L 500.2500, L100.0100 ####[facility] [address] [place], [address] Eosinophils/100 WBC (Bld) 4.7 % Normal 0-5 [facility] Comment on above: Performed By: #### L 500.2500, L100.0100 ####[facility] [address] [place], [address] Erythrocyte distribution width (RBC) [Ratio] 13.2 % Normal 11.6-14.6 [facility] Comment on above: Performed By: #### L 500.2500, L100.0100 ####[facility] [address] [place], [address] Hematocrit (Bld) [Volume fraction] 28.5 % Low 37-47 [facility] Comment on above: Performed By: #### L 500.2500, L100.0100 ####[facility] [address] [place], [address] Hemoglobin (Bld) [Mass/Vol] 9.5 g/dL Low 12.0-15.0 [facility] Comment on above: Performed By: #### L 500.2500, L100.0100 ####[facility] [address] [place], [address] IG% 0.700 Normal 0.0-0.9 [facility] Comment on above: Result Comment: IG% - Immature Granulocytes (promyelocytes, myelocytes andmetamyelocytes) > 1% indicates that a LEFT SHIFT is Present. Performed By: #### L 500.2500, L100.0100 ####[facility] [address] [place], [address] Lymphocytes/100 WBC (Bld) 20.3 % Normal 19-41 [facility] Comment on above: Performed By: #### L 500.2500, L100.0100 ####[facility] [address] [place], [address] MCH (RBC) [Entitic mass] 29.8 pg Normal 27.0-32.0 [facility] Comment on above: Performed By: #### L 500.2500, L100.0100 ####[facility] [address] [place], [address] MCHC (RBC) [Mass/Vol] 33.3 g/dL Normal 32-36 [facility] Comment on above: Performed By: #### L 500.2500, L100.0100 ####[facility] [address] [place], [address] MCV (RBC) [Entitic vol] 89.3 fL Normal 81-99 [facility] Comment on above: Performed By: #### L 500.2500, L100.0100 ####[facility] [address] [place], [address] Monocytes/100 WBC (Bld) 7.0 % Normal 0-10 [facility] Comment on above: Performed By: #### L 500.2500, L100.0100 ####[facility] [address] [place], [address] Neutrophils/100 WBC (Bld) 66.8 % Normal 47-70 [facility] Comment on above: Performed By: #### L 500.2500, L100.0100 ####[facility] [address] [place], [address] Nucleated RBC (Bld) [#/Vol] 0 10*3/uL Normal 0-5 [facility] Comment on above: Performed By: #### L 500.2500, L100.0100 ####[facility] [address] [place], [address] Platelet mean volume (Bld) [Entitic vol] 9.4 fL Normal 6.2-12.0 [facility] Comment on above: Performed By: #### L 500.2500, L100.0100 ####[facility] [address] [place], [address] Platelets (Bld) [#/Vol] 287 10*3/uL Normal 150-450 [facility] Comment on above: Performed By: #### L 500.2500, L100.0100 ####[facility] [address] [place], [address] RBC (Bld) [#/Vol] 3.19 10*6/uL Low 4.2-5.4 [facility] Comment on above: Performed By: #### L 500.2500, L100.0100 ####[facility] [address] [place], [address] RDW SD 43.5 fl Normal 35.1-43.9 [facility] Comment on above: Performed By: #### L 500.2500, L100.0100 ####[facility] [address] [place], [address] WBC (Bld) [#/Vol] 6.1 10*3/uL Normal 4.4-11.0 [facility] Comment on above: Performed By: #### L 500.2500, L100.0100 ####[facility] [address] [place], [address] Stool Occult Blood iFOBon STOB Negative Normal [facility] Comment on above: Performed By: #### M 100.7900 ####[facility] [address] [place], [address] Abdomen Single Viewon 2024 Abdomen Single View Normal [facility] Basic Metabolic Profile (BMP )on 12-17-2024 BUN/CRE 51.0 RATIO High 10-20 [facility] Comment on above: Performed By: #### L 500.2500 ####[facility] [address] [place], [address] Calcium [Mass/Vol] 8.8 mg/dL Normal 7.6-11.0 [facility] Comment on above: Performed By: #### L 500.2500 ####[facility] [address] [place], [address] Chloride [Moles/Vol] 103 mmol/L Normal 98-108 [facility] Comment on above: Performed By: #### L 500.2500 ####[facility] [address] [place], [address] CO2 [Moles/Vol] 18.0 mmol/L Low 21.0-32.0 [facility] Comment on above: Performed By: #### L 500.2500 ####[facility] [address] [place], [address] Creatinine [Mass/Vol] 0.67 mg/dL Low 0.70-1.20 [facility] Comment on above: Performed By: #### L 500.2500 ####[facility] [address] [place], [address] ECRCL 60.58 ml/min Normal 50-250 [facility] Comment on above: Performed By: #### L 500.2500 ####[facility] [address] [place], [address] GAP 11 Normal 5-15 [facility] Comment on above: Performed By: #### L 500.2500 ####[facility] [address] [place], [address] GFR/1.73 sq M.predicted among non-blacks MDRD (S/P/Bld) [Vol rate/Area] 88 mL/min/{1.73_m2} Normal >60 [facility] Comment on above: Result Comment: mL/m in/1.73m2 CKD-EPI Creatinine Equation (2020) Performed By: #### L 500.2500 ####[facility] [address] [place], [address] Glucose [Mass/Vol] 210 mg/dL High 70-99 [facility] Comment on above: Performed By: #### L 500.2500 ####[facility] [address] [place], [address] Potassium [Moles/Vol] 4.5 mmol/L Normal 3.3-5.1 [facility] Comment on above: Result Comment: Hemo lysis present, Results??could be affected.?? Performed By: #### L 500.2500 ####[facility] [address] [place], [address] Sodium [Moles/Vol] 132 mmol/L Low 133-145 [facility] Comment on above: Performed By: #### L 500.2500 ####[facility] [address] [place], [address] Urea nitrogen [Mass/Vol] 34 mg/dL High 4-19 [facility] Comment on above: Performed By: #### L 500.2500 ####[facility] [address] [place], [address] BUN Normal 4-19 [facility] Comment on above: Result Comment: Canc elled via OM: Order cancelled - Patient discharged Performed By: #### L 500.2500, L100.0100 ####[facility] [address] [place], [address] BUN/CRE Normal 10-20 [facility] Comment on above: Result Comment: Canc elled via OM: Order cancelled - Patient discharged Performed By: #### L 500.2500, L100.0100 ####[facility] [address] [place], [address] Calcium Normal 7.6-11.0 [facility] Comment on above: Result Comment: Canc elled via OM: Order cancelled - Patient discharged Performed By: #### L 500.2500, L100.0100 ####[facility] [address] [place], [address] CL Normal 98-108 [facility] Comment on above: Result Comment: Canc elled via OM: Order cancelled - Patient discharged Performed By: #### L 500.2500, L100.0100 ####[facility] [address] [place], [address] CO2 Normal 21.0-32.0 [facility] Comment on above: Result Comment: Canc elled via OM: Order cancelled - Patient discharged Performed By: #### L 500.2500, L100.0100 ####[facility] [address] [place], [address] CREAT,SERUM Normal 0.70-1.20 [facility] Comment on above: Result Comment: Canc elled via OM: Order cancelled - Patient discharged Performed By: #### L 500.2500, L100.0100 ####[facility] [address] [place], [address] eGFR Normal >60 [facility] Comment on above: Result Comment: Canc elled via OM: Order cancelled - Patient discharged Performed By: #### L 500.2500, L100.0100 ####[facility] [address] [place], [address] GAP Normal 5-15 [facility] Comment on above: Result Comment: Canc elled via OM: Order cancelled - Patient discharged Performed By: #### L 500.2500, L100.0100 ####[facility] [address] [place], [address] GLU Normal 70-99 [facility] Comment on above: Result Comment: Canc elled via OM: Order cancelled - Patient discharged Performed By: #### L 500.2500, L100.0100 ####[facility] [address] [place], [address] Potassium Normal 3.3-5.1 [facility] Comment on above: Result Comment: Canc elled via OM: Order cancelled - Patient discharged Performed By: #### L 500.2500, L100.0100 ####[facility] [facility] [address] [place], [address] Basic Metabolic Profile (BMP) Normal 133-145 [facility] Comment on above: Result Comment: Canc elled via OM: Order cancelled - Patient discharged Performed By: #### L 500.2500, L100.0100 ####[facility] [address] [place], [address] CBC W/Diff, Automatedon 03-2 Absolute Neut Normal 2.0-7.7 [facility] Comment on above: Result Comment: Canc elled via OM: Order cancelled - Patient discharged Performed By: #### L 500.2500, L100.0100 ####[facility] [address] [place], [address] HCT Normal 37-47 [facility] Comment on above: Result Comment: Canc elled via OM: Order cancelled - Patient discharged Performed By: #### L 500.2500, L100.0100 ####[facility] [address] [place], [address] HGB Normal 12.0-15.0 [facility] Comment on above: Result Comment: Canc elled via OM: Order cancelled - Patient discharged Performed By: #### L 500.2500, L100.0100 ####[facility] [address] [place], [address] MCH Normal 27.0-32.0 [facility] Comment on above: Result Comment: Canc elled via OM: Order cancelled - Patient discharged Performed By: #### L 500.2500, L100.0100 ####[facility] [address] [place], [address] MCHC Normal 32-36 [facility] Comment on above: Result Comment: Canc elled via OM: Order cancelled - Patient discharged Performed By: #### L 500.2500, L100.0100 ####[facility] [address] [place], [address] MCV Normal 81-99 [facility] Comment on above: Result Comment: Canc elled via OM: Order cancelled - Patient discharged Performed By: #### L 500.2500, L100.0100 ####[facility] [address] [place], [address] NEUT% Normal 47-70 [facility] Comment on above: Result Comment: Canc elled via OM: Order cancelled - Patient discharged Performed By: #### L 500.2500, L100.0100 ####[facility] [address] [place], [address] PLT Normal 150-450 [facility] Comment on above: Result Comment: Canc elled via OM: Order cancelled - Patient discharged Performed By: #### L 500.2500, L100.0100 ####[facility] [address] [place], [address] RBC Normal 4.2-5.4 [facility] Comment on above: Result Comment: Canc elled via OM: Order cancelled - Patient discharged Performed By: #### L 500.2500, L100.0100 ####[facility] [address] [place], [address] RDW CV Normal 11.6-14.6 [facility] Comment on above: Result Comment: Canc elled via OM: Order cancelled - Patient discharged Performed By: #### L 500.2500, L100.0100 ####[facility] [address] [place], [address] RDW SD Normal 35.1-43.9 [facility] Comment on above: Result Comment: Canc elled via OM: Order cancelled - Patient discharged Performed By: #### L 500.2500, L100.0100 ####[facility] [address] [place], [address] WBC Normal 4.4-11.0 [facility] Comment on above: Result Comment: Canc elled via OM: Order cancelled - Patient discharged Performed By: #### L 500.2500, L100.0100 ####[facility] [address] [place], [address] Urinalysis, Completeon 12-17 RBC 0 SEEN Normal 0-5 [facility] Comment on above: Order Comment: TREVOR TER SPECIMEN Performed By: #### L 400.0001 ####[facility] [address] [place], [address] WBC 0-5 SEEN Normal 0-5 [facility] Comment on above: Order Comment: TREVOR TER SPECIMEN Performed By: #### L 400.0001 ####[facility] [address] [place], [address] BACTERIA 1+ /hpf Normal None Seen [facility] Comment on above: Order Comment: TREVOR TER SPECIMEN Performed By: #### L 400.0001 ####[facility] [address] [place], [address] EPI,SQUAMOUS 0 SEEN Normal 5-10 [facility] Comment on above: Order Comment: TREVOR TER SPECIMEN Performed By: #### L 400.0001 ####[facility] [address] [place], [address] Mucus Ql (Urine sed) 0 SEEN Normal [facility] Comment on above: Order Comment: TREVOR TER SPECIMEN Performed By: #### L 400.0001 ####[facility] [address] [place], [address] Basic Metabolic Profile (BMP )on 12-16-2024 BUN Normal -19 [facility] Comment on above: Result Comment: Canc elled via OM: Order cancelled - Patient discharged Performed By: #### L 500.2500, L100.0100 ####[facility] [address] [place], [address] BUN/CRE Normal 10-20 [facility] Comment on above: Result Comment: Canc elled via OM: Order cancelled - Patient discharged Performed By: #### L 500.2500, L100.0100 ####[facility] [address] [place], [address] Calcium Normal 7.6-11.0 [facility] Comment on above: Result Comment: Canc elled via OM: Order cancelled - Patient discharged Performed By: #### L 500.2500, L100.0100 ####[facility] [address] [place], [address] CL Normal 98-108 [facility] Comment on above: Result Comment: Canc elled via OM: Order cancelled - Patient discharged Performed By: #### L 500.2500, L100.0100 ####[facility] [address] [place], [address] CO2 Normal 21.0-32.0 [facility] Comment on above: Result Comment: Canc elled via OM: Order cancelled - Patient discharged Performed By: #### L 500.2500, L100.0100 ####[facility] [address] [place], [address] CREAT,SERUM Normal 0.70-1.20 [facility] Comment on above: Result Comment: Canc elled via OM: Order cancelled - Patient discharged Performed By: #### L 500.2500, L100.0100 ####[facility] [address] [place], [address] eGFR Normal >60 [facility] Comment on above: Result Comment: Canc elled via OM: Order cancelled - Patient discharged Performed By: #### L 500.2500, L100.0100 ####[facility] [address] [place], [address] GAP Normal 5-15 [facility] Comment on above: Result Comment: Canc elled via OM: Order cancelled - Patient discharged Performed By: #### L 500.2500, L100.0100 ####[facility] [address] [place], [address] GLU Normal 70-99 [facility] Comment on above: Result Comment: Canc elled via OM: Order cancelled - Patient discharged Performed By: #### L 500.2500, L100.0100 ####[facility] [address] [place], [address] Potassium Normal 3.3-5.1 [facility] Comment on above: Result Comment: Canc elled via OM: Order cancelled - Patient discharged Performed By: #### L 500.2500, L100.0100 ####[facility] [address] [place], [address] Basic Metabolic Profile (BMP) Normal 133-145 [facility] Comment on above: Result Comment: Canc elled via OM: Order cancelled - Patient discharged Performed By: #### L 500.2500, L100.0100 ####[facility] [address] [place], [address] CBC W/Diff, Automatedon 11-23 Absolute Neut Normal 2.0-7.7 [facility] Comment on above: Result Comment: Canc elled via OM: Order cancelled - Patient discharged Performed By: #### L 500.2500, L100.0100 ####[facility] [address] [place], [address] HCT Normal 37-47 [facility] Comment on above: Result Comment: Canc elled via OM: Order cancelled - Patient discharged Performed By: #### L 500.2500, L100.0100 ####[facility] [address] [place], [address] HGB Normal 12.0-15.0 [facility] Comment on above: Result Comment: Canc elled via OM: Order cancelled - Patient discharged Performed By: #### L 500.2500, L100.0100 ####[facility] [address] [place], [address] MCH Normal 27.0-32.0 [facility] Comment on above: Result Comment: Canc elled via OM: Order cancelled - Patient discharged Performed By: #### L 500.2500, L100.0100 ####[facility] [address] [place], [address] MCHC Normal 32-36 [facility] Comment on above: Result Comment: Canc elled via OM: Order cancelled - Patient discharged Performed By: #### L 500.2500, L100.0100 ####[facility] [address] [place], [address] MCV Normal 81-99 [facility] Comment on above: Result Comment: Canc elled via OM: Order cancelled - Patient discharged Performed By: #### L 500.2500, L100.0100 ####[facility] [address] [place], [address] NEUT% Normal 47-70 [facility] Comment on above: Result Comment: Canc elled via OM: Order cancelled - Patient discharged Performed By: #### L 500.2500, L100.0100 ####[facility] [address] [place], [address] PLT Normal 150-450 [facility] Comment on above: Result Comment: Canc elled via OM: Order cancelled - Patient discharged Performed By: #### L 500.2500, L100.0100 ####[facility] [address] [place], [address] RBC Normal 4.2-5.4 [facility] Comment on above: Result Comment: Canc elled via OM: Order cancelled - Patient discharged Performed By: #### L 500.2500, L100.0100 ####[facility] [address] [place], [address] RDW CV Normal 11.6-14.6 [facility] Comment on above: Result Comment: Canc elled via OM: Order cancelled - Patient discharged Performed By: #### L 500.2500, L100.0100 ####[facility] [address] [place], [address] RDW SD Normal 35.1-43.9 [facility] Comment on above: Result Comment: Canc elled via OM: Order cancelled - Patient discharged Performed By: #### L 500.2500, L100.0100 ####[facility] [address] [place], [address] WBC Normal 4.4-11.0 [facility] Comment on above: Result Comment: Canc elled via OM: Order cancelled - Patient discharged Performed By: #### L 500.2500, L100.0100 ####[facility] [address] [place], [address] Basic Metabolic Profile (BMP )on 12-15-2024 BUN Normal 4-19 [facility] Comment on above: Result Comment: Canc elled via OM: Order cancelled - Patient discharged Performed By: #### L 100.0100, L500.2500 ####[facility] [address] [place], [address] BUN/CRE Normal 10-20 [facility] Comment on above: Result Comment: Canc elled via OM: Order cancelled - Patient discharged Performed By: #### L 100.0100, L500.2500 ####[facility] [address] [place], [address] Calcium Normal 7.6-11.0 [facility] Comment on above: Result Comment: Canc elled via OM: Order cancelled - Patient discharged Performed By: #### L 100.0100, L500.2500 ####[facility] [address] [place], [address] CL Normal 98-108 [facility] Comment on above: Result Comment: Canc elled via OM: Order cancelled - Patient discharged Performed By: #### L 100.0100, L500.2500 ####[facility] [address] [place], [address] CO2 Normal 21.0-32.0 [facility] Comment on above: Result Comment: Canc elled via OM: Order cancelled - Patient discharged Performed By: #### L 100.0100, L500.2500 ####[facility] [address] [place], [address] CREAT,SERUM Normal 0.70-1.20 [facility] Comment on above: Result Comment: Canc elled via OM: Order cancelled - Patient discharged Performed By: #### L 100.0100, L500.2500 ####[facility] [address] [place], [address] eGFR Normal >60 [facility] Comment on above: Result Comment: Canc elled via OM: Order cancelled - Patient discharged Performed By: #### L 100.0100, L500.2500 ####[facility] [address] [place], [address] GAP Normal 5-15 [facility] Comment on above: Result Comment: Canc elled via OM: Order cancelled - Patient discharged Performed By: #### L 100.0100, L500.2500 ####[facility] [address] [place], [address] GLU Normal 70-99 [facility] Comment on above: Result Comment: Canc elled via OM: Order cancelled - Patient discharged Performed By: #### L 100.0100, L500.2500 ####[facility] [address] [place], [address] Potassium Normal 3.3-5.1 [facility] Comment on above: Result Comment: Canc elled via OM: Order cancelled - Patient discharged Performed By: #### L 100.0100, L500.2500 ####[facility] [address] [place], [address] Basic Metabolic Profile (BMP) Normal 133-145 [facility] Comment on above: Result Comment: Canc elled via OM: Order cancelled - Patient discharged Performed By: #### L 100.0100, L500.2500 ####[facility] [address] [place], [address] CBC W/Diff, Automatedon 03-2 Absolute Neut Normal 2.0-7.7 [facility] Comment on above: Result Comment: Canc elled via OM: Order cancelled - Patient discharged Performed By: #### L 100.0100, L500.2500 ####[facility] [address] [place], [address] HCT Normal 37-47 [facility] Comment on above: Result Comment: Canc elled via OM: Order cancelled - Patient discharged Performed By: #### L 100.0100, L500.2500 ####[facility] [address] [place], [address] HGB Normal 12.0-15.0 [facility] Comment on above: Result Comment: Canc elled via OM: Order cancelled - Patient discharged Performed By: #### L 100.0100, L500.2500 ####[facility] [address] [place], [address] MCH Normal 27.0-32.0 [facility] Comment on above: Result Comment: Canc elled via OM: Order cancelled - Patient discharged Performed By: #### L 100.0100, L500.2500 ####[facility] [address] [place], [address] MCHC Normal 32-36 [facility] Comment on above: Result Comment: Canc elled via OM: Order cancelled - Patient discharged Performed By: #### L 100.0100, L500.2500 ####[facility] [address] [place], [address] MCV Normal 81-99 [facility] Comment on above: Result Comment: Canc elled via OM: Order cancelled - Patient discharged Performed By: #### L 100.0100, L500.2500 ####[facility] [address] [place], [address] NEUT% Normal 47-70 [facility] Comment on above: Result Comment: Canc elled via OM: Order cancelled - Patient discharged Performed By: #### L 100.0100, L500.2500 ####[facility] [address] [place], [address] PLT Normal 150-450 [facility] Comment on above: Result Comment: Canc elled via OM: Order cancelled - Patient discharged Performed By: #### L 100.0100, L500.2500 ####[facility] [address] [place], [address] RBC Normal 4.2-5.4 [facility] Comment on above: Result Comment: Canc elled via OM: Order cancelled - Patient discharged Performed By: #### L 100.0100, L500.2500 ####[facility] [address] [place], [address] RDW CV Normal 11.6-14.6 [facility] Comment on above: Result Comment: Canc elled via OM: Order cancelled - Patient discharged Performed By: #### L 100.0100, L500.2500 ####[facility] [address] [place], [address] RDW SD Normal 35.1-43.9 [facility] Comment on above: Result Comment: Canc elled via OM: Order cancelled - Patient discharged Performed By: #### L 100.0100, L500.2500 ####[facility] [address] [place], [address] WBC Normal 4.4-11.0 [facility] Comment on above: Result Comment: Canc elled via OM: Order cancelled - Patient discharged Performed By: #### L 100.0100, L500.2500 ####[facility] [address] [place], [address] Basic Metabolic Profile (BMP )on 12-14-2024 BUN Normal 4-19 [facility] Comment on above: Result Comment: Canc elled via OM: Order cancelled - Patient discharged Performed By: #### L 500.2500, L100.0100 ####[facility] [address] [place], [address] BUN/CRE Normal 10-20 [facility] Comment on above: Result Comment: Canc elled via OM: Order cancelled - Patient discharged Performed By: #### L 500.2500, L100.0100 ####[facility] [address] [place], [address] Calcium Normal 7.6-11.0 [facility] Comment on above: Result Comment: Canc elled via OM: Order cancelled - Patient discharged Performed By: #### L 500.2500, L100.0100 ####[facility] [address] [place], [address] CL Normal 98-108 [facility] Comment on above: Result Comment: Canc elled via OM: Order cancelled - Patient discharged Performed By: #### L 500.2500, L100.0100 ####[facility] [address] [place], [address] CO2 Normal 21.0-32.0 [facility] Comment on above: Result Comment: Canc elled via OM: Order cancelled - Patient discharged Performed By: #### L 500.2500, L100.0100 ####[facility] [address] [place], [address] CREAT,SERUM Normal 0.70-1.20 [facility] Comment on above: Result Comment: Canc elled via OM: Order cancelled - Patient discharged Performed By: #### L 500.2500, L100.0100 ####[facility] [address] [place], [address] eGFR Normal >60 [facility] Comment on above: Result Comment: Canc elled via OM: Order cancelled - Patient discharged Performed By: #### L 500.2500, L100.0100 ####[facility] [address] [place], [address] GAP Normal 5-15 [facility] Comment on above: Result Comment: Canc elled via OM: Order cancelled - Patient discharged Performed By: #### L 500.2500, L100.0100 ####[facility] [address] [place], [address] GLU Normal 70-99 [facility] Comment on above: Result Comment: Canc elled via OM: Order cancelled - Patient discharged Performed By: #### L 500.2500, L100.0100 ####[facility] [address] [place], [address] Potassium Normal 3.3-5.1 [facility] Comment on above: Result Comment: Canc elled via OM: Order cancelled - Patient discharged Performed By: #### L 500.2500, L100.0100 ####[facility] [address] [place], [address] Basic Metabolic Profile (BMP) Normal 133-145 [facility] Comment on above: Result Comment: Canc elled via OM: Order cancelled - Patient discharged Performed By: #### L 500.2500, L100.0100 ####[facility] [address] [place], [address] CBC W/Diff, Automatedon 03-2 Absolute Neut Normal 2.0-7.7 [facility] Comment on above: Result Comment: Canc elled via OM: Order cancelled - Patient discharged Performed By: #### L 500.2500, L100.0100 ####[facility] [address] [place], [address] HCT Normal 37-47 [facility] Comment on above: Result Comment: Canc elled via OM: Order cancelled - Patient discharged Performed By: #### L 500.2500, L100.0100 ####[facility] [address] [place], [address] HGB Normal 12.0-15.0 [facility] Comment on above: Result Comment: Canc elled via OM: Order cancelled - Patient discharged Performed By: #### L 500.2500, L100.0100 ####[facility] [address], [address] MCH Normal 27.0-32.0 [facility] Comment on above: Result Comment: Canc elled via OM: Order cancelled - Patient discharged Performed By: #### L 500.2500, L100.0100 ####[facility] [address] [place], [address] MCHC Normal 32-36 [facility] Comment on above: Result Comment: Canc elled via OM: Order cancelled - Patient discharged Performed By: #### L 500.2500, L100.0100 ####[facility] [address] [place], [address] MCV Normal 81-99 [facility] Comment on above: Result Comment: Canc elled via OM: Order cancelled - Patient discharged Performed By: #### L 500.2500, L100.0100 ####[facility] [address] [place], [address] NEUT% Normal 47-70 [facility] Comment on above: Result Comment: Canc elled via OM: Order cancelled - Patient discharged Performed By: #### L 500.2500, L100.0100 ####[facility] [address] [place], [address] PLT Normal 150-450 [facility] Comment on above: Result Comment: Canc elled via OM: Order cancelled - Patient discharged Performed By: #### L 500.2500, L100.0100 ####[facility] [address] [place], [address] RBC Normal 4.2-5.4 [facility] Comment on above: Result Comment: Canc elled via OM: Order cancelled - Patient discharged Performed By: #### L 500.2500, L100.0100 ####[facility] [address] [place], [address] RDW CV Normal 11.6-14.6 [facility] Comment on above: Result Comment: Canc elled via OM: Order cancelled - Patient discharged Performed By: #### L 500.2500, L100.0100 ####[facility] [address] [place], [address] RDW SD Normal 35.1-43.9 [facility] Comment on above: Result Comment: Canc elled via OM: Order cancelled - Patient discharged Performed By: #### L 500.2500, L100.0100 ####[facility] [address] [place], [address] WBC Normal 4.4-11.0 [facility] Comment on above: Result Comment: Canc elled via OM: Order cancelled - Patient discharged Performed By: #### L 500.2500, L100.0100 ####[facility] [address] [place], [address] Basic Metabolic Profile (BMP )on 12-13-2024 BUN Normal 4-19 [facility] Comment on above: Result Comment: Canc elled via OM: Order cancelled - Patient discharged Performed By: #### L 500.2500, L100.0100 ####[facility] [address] [place], [address] BUN/CRE Normal 10-20 [facility] Comment on above: Result Comment: Canc elled via OM: Order cancelled - Patient discharged Performed By: #### L 500.2500, L100.0100 ####[facility] [address] [place], [address] Calcium Normal 7.6-11.0 [facility] Comment on above: Result Comment: Canc elled via OM: Order cancelled - Patient discharged Performed By: #### L 500.2500, L100.0100 ####[facility] [address] [place], [address] CL Normal 98-108 [facility] Comment on above: Result Comment: Canc elled via OM: Order cancelled - Patient discharged Performed By: #### L 500.2500, L100.0100 ####[facility] [address] [place], [address] CO2 Normal 21.0-32.0 [facility] Comment on above: Result Comment: Canc elled via OM: Order cancelled - Patient discharged Performed By: #### L 500.2500, L100.0100 ####[facility] [address] [place], [address] CREAT,SERUM Normal 0.70-1.20 [facility] Comment on above: Result Comment: Canc elled via OM: Order cancelled - Patient discharged Performed By: #### L 500.2500, L100.0100 ####[facility] [address] [place], [address] eGFR Normal >60 [facility] Comment on above: Result Comment: Canc elled via OM: Order cancelled - Patient discharged Performed By: #### L 500.2500, L100.0100 ####[facility] [address] [place], [address] GAP Normal 5-15 [facility] Comment on above: Result Comment: Canc elled via OM: Order cancelled - Patient discharged Performed By: #### L 500.2500, L100.0100 ####[facility] [address] [place], [address] GLU Normal 70-99 [facility] Comment on above: Result Comment: Canc elled via OM: Order cancelled - Patient discharged Performed By: #### L 500.2500, L100.0100 ####[facility] [address] [place], [address] Potassium Normal 3.3-5.1 [facility] Comment on above: Result Comment: Canc elled via OM: Order cancelled - Patient discharged Performed By: #### L 500.2500, L100.0100 ####[facility] [address] [place], [address] Basic Metabolic Profile (BMP) Normal 133-145 [facility] Comment on above: Result Comment: Canc elled via OM: Order cancelled - Patient discharged Performed By: #### L 500.2500, L100.0100 ####[facility] [address] [place], [address] CBC W/Diff, Automatedon - Absolute Neut Normal 2.0-7.7 [facility] Comment on above: Result Comment: Canc elled via OM: Order cancelled - Patient discharged Performed By: #### L 500.2500, L100.0100 ####[facility] [address] [place], [address] HCT Normal 37-47 [facility] Comment on above: Result Comment: Canc elled via OM: Order cancelled - Patient discharged Performed By: #### L 500.2500, L100.0100 ####[facility] [address] [place], [address] HGB Normal 12.0-15.0 [facility] Comment on above: Result Comment: Canc elled via OM: Order cancelled - Patient discharged Performed By: #### L 500.2500, L100.0100 ####[facility] [address] [place], [address] MCH Normal 27.0-32.0 [facility] Comment on above: Result Comment: Canc elled via OM: Order cancelled - Patient discharged Performed By: #### L 500.2500, L100.0100 ####[facility] [address] [place], [address] MCHC Normal 32-36 [facility] Comment on above: Result Comment: Canc elled via OM: Order cancelled - Patient discharged Performed By: #### L 500.2500, L100.0100 ####[facility] [address] [place], [address] MCV Normal 81-99 [facility] Comment on above: Result Comment: Canc elled via OM: Order cancelled - Patient discharged Performed By: #### L 500.2500, L100.0100 ####[facility] [address] [place], [address] NEUT% Normal 47-70 [facility] Comment on above: Result Comment: Canc elled via OM: Order cancelled - Patient discharged Performed By: #### L 500.2500, L100.0100 ####[facility] [address] [place], [address] PLT Normal 150-450 [facility] Comment on above: Result Comment: Canc elled via OM: Order cancelled - Patient discharged Performed By: #### L 500.2500, L100.0100 ####[facility] [address] [place], [address] RBC Normal 4.2-5.4 [facility] Comment on above: Result Comment: Canc elled via OM: Order cancelled - Patient discharged Performed By: #### L 500.2500, L100.0100 ####[facility] [address] [place], [address] RDW CV Normal 11.6-14.6 [facility] Comment on above: Result Comment: Canc elled via OM: Order cancelled - Patient discharged Performed By: #### L 500.2500, L100.0100 ####[facility] [address] [place], [address] RDW SD Normal 35.1-43.9 [facility] Comment on above: Result Comment: Canc elled via OM: Order cancelled - Patient discharged Performed By: #### L 500.2500, L100.0100 ####[facility] [address] [place], [address] WBC Normal 4.4-11.0 [facility] Comment on above: Result Comment: Canc elled via OM: Order cancelled - Patient discharged Performed By: #### L 500.2500, L100.0100 ####[facility] [address] [place], [address] L503.0106on 12-13-2024 Cobalamin (Vitamin B12) [Mass/Vol] 645 pg/mL Normal 180-914 [facility] Comment on above: Performed By: #### L 503.0106, L500.4100 ####[facility] [address] [place], [address] Lipid Profileon 12-13-2024 CHOL:HDL 2.08 Normal [facility] Comment on above: Performed By: #### L 503.0106, L500.4100 ####[facility] [address] [place], [address] Cholesterol [Mass/Vol] 124 mg/dL Normal <=200 [facility] Comment on above: Result Comment: Chol esterol level, Desirable <200 mg/dLBorderline high cholesterol 200-239 mg/dLHigh cholesterol >=240 mg/dLRecommendations of the NCEP Adult Treatment Panel for thefollowing risk-cutoff thresholds for the [place] Americanpulation. Performed By: #### L 503.0106, L500.4100 ####[facility] [address] [place], [address] Cholesterol in HDL [Mass/Vol] 60 mg/dL Normal [facility] Comment on above: Result Comment: Rosalind onal Cholesterol Education Program (NCEP) guidelines:<40 mg/dL: Low HDL-cholesterol (major risk factor for CHD)>= 60 mg/dL: High HDL-cholesterol (negative risk factor forCHD)HDL-cholesterol is affected by a number of factors, e.g.smoking, exercise, hormones, sex and age. Performed By: #### L 503.0106, L500.4100 ####[facility] [address] [place], [address] Cholesterol in LDL [Mass/Vol] 47 mg/dL Normal [facility] Comment on above: Result Comment: Bord avclqb=911-668 mg/dL Higher Peoo=356 mg/dL or greater Performed By: #### L 503.0106, L500.4100 ####[facility] [address] [place], [address] Cholesterol in VLDL [Mass/Vol] 17 mg/dL Normal 5-40 [facility] Comment on above: Performed By: #### L 503.0106, L500.4100 ####[facility] [address] [place], [address] Triglyceride [Mass/Vol] 85 mg/dL Normal [facility] Comment on above: Result Comment: The drugs N-Acetylcysteine and Metamizole may falselydepress this assay.Normal range: <150 mg/dLBorderline High: 150-199 mg/dLHigh: 200-499 mg/dLVery High: >500 mg/dL Performed By: #### L 503.0106, L500.4100 ####[facility] [address] [place], [address] Basic Metabolic Profile (BMP )on 12-12-2024 BUN/CRE 29.5 RATIO High 10-20 [facility] Comment on above: Performed By: #### L 500.2500, L100.0100 ####[facility] [address] [place], [address] Calcium [Mass/Vol] 9.2 mg/dL Normal 7.6-11.0 [facility] Comment on above: Performed By: #### L 500.2500, L100.0100 ####[facility] [address] [place], [address] Chloride [Moles/Vol] 97 mmol/L Low 98-108 [facility] Comment on above: Performed By: #### L 500.2500, L100.0100 ####[facility] [address] [place], [address] CO2 [Moles/Vol] 20.4 mmol/L Low 21.0-32.0 [facility] Comment on above: Performed By: #### L 500.2500, L100.0100 ####[facility] [address] [place], [address] Creatinine [Mass/Vol] 1.39 mg/dL High 0.70-1.20 [facility] Comment on above: Performed By: #### L 500.2500, L100.0100 ####[facility] [address] [place], [address] ECRCL 35.39 ml/min Low 50-250 [facility] Comment on above: Performed By: #### L 500.2500, L100.0100 ####[facility] [address] [place], [address] GAP 11 Normal 5-15 [facility] Comment on above: Performed By: #### L 500.2500, L100.0100 ####[facility] [address] [place], [address] GFR/1.73 sq M.predicted among non-blacks MDRD (S/P/Bld) [Vol rate/Area] 38 mL/min/{1.73_m2} Low >60 [facility] Comment on above: Result Comment: mL/m in/1.73m2 CKD-EPI Creatinine Equation (2020) Performed By: #### L 500.2500, L100.0100 ####[facility] [address] [place], [address] Glucose [Mass/Vol] 99 mg/dL Normal 70-99 [facility] Comment on above: Performed By: #### L 500.2500, L100.0100 ####[facility] [address] [place], [address] Potassium [Moles/Vol] 4.9 mmol/L Normal 3.3-5.1 [facility] Comment on above: Performed By: #### L 500.2500, L100.0100 ####[facility] [address] [place], [address] Sodium [Moles/Vol] 128 mmol/L Low 133-145 [facility] Comment on above: Performed By: #### L 500.2500, L100.0100 ####[facility] [address] [place], [address] Urea nitrogen [Mass/Vol] 41 mg/dL High 4-19 [facility] Comment on above: Performed By: #### L 500.2500, L100.0100 ####[facility] [address] [place], [address] BUN Normal 4-19 [facility] Comment on above: Result Comment: Canc elled via OM: Order cancelled - Patient discharged Performed By: #### L 100.0100, L500.2500 ####[facility] [address] [place], [address] BUN/CRE Normal 10-20 [facility] Comment on above: Result Comment: Canc elled via OM: Order cancelled - Patient discharged Performed By: #### L 100.0100, L500.2500 ####[facility] [address] [place], [address] Calcium Normal 7.6-11.0 [facility] Comment on above: Result Comment: Canc elled via OM: Order cancelled - Patient discharged Performed By: #### L 100.0100, L500.2500 ####[facility] [address] [place], [address] CL Normal 98-108 [facility] Comment on above: Result Comment: Canc elled via OM: Order cancelled - Patient discharged Performed By: #### L 100.0100, L500.2500 ####[facility] [address] [place], [address] CO2 Normal 21.0-32.0 [facility] Comment on above: Result Comment: Canc elled via OM: Order cancelled - Patient discharged Performed By: #### L 100.0100, L500.2500 ####[facility] [address] [place], [address] CREAT,SERUM Normal 0.70-1.20 [facility] Comment on above: Result Comment: Canc elled via OM: Order cancelled - Patient discharged Performed By: #### L 100.0100, L500.2500 ####[facility] [address] [place], [address] eGFR Normal >60 [facility] Comment on above: Result Comment: Canc elled via OM: Order cancelled - Patient discharged Performed By: #### L 100.0100, L500.2500 ####[facility] [address] [place], [address] GAP Normal 5-15 [facility] Comment on above: Result Comment: Canc elled via OM: Order cancelled - Patient discharged Performed By: #### L 100.0100, L500.2500 ####[facility] [address] [place], [address] GLU Normal 70-99 [facility] Comment on above: Result Comment: Canc elled via OM: Order cancelled - Patient discharged Performed By: #### L 100.0100, L500.2500 ####[facility] [address] [place], [address] Potassium Normal 3.3-5.1 [facility] Comment on above: Result Comment: Canc elled via OM: Order cancelled - Patient discharged Performed By: #### L 100.0100, L500.2500 ####[facility] [address] [place], [address] Basic Metabolic Profile (BMP) Normal 133-145 [facility] Comment on above: Result Comment: Canc elled via OM: Order cancelled - Patient discharged Performed By: #### L 100.0100, L500.2500 ####[facility] [address] [place], [address] CBC W/Diff, Automatedon 03-2 -2024 Absolute Lymph 0.93 X10 3/uL Normal 0.83-4.51 [facility] Comment on above: Performed By: #### L 500.2500, L100.0100 ####[facility] [address] [place], [address] Absolute Neut 4.4 X10 3/uL Normal 2.0-7.7 [facility] Comment on above: Performed By: #### L 500.2500, L100.0100 ####[facility] [address] [place], [address] Basophils/100 WBC (Bld) 0.3 % Normal 0-1 [facility] Comment on above: Performed By: #### L 500.2500, L100.0100 ####[facility] [address] [place], [address] Eosinophils/100 WBC (Bld) 5.0 % Normal 0-5 [facility] Comment on above: Performed By: #### L 500.2500, L100.0100 ####[facility] [address] [place], [address] Erythrocyte distribution width (RBC) [Ratio] 13.2 % Normal 11.6-14.6 [facility] Comment on above: Performed By: #### L 500.2500, L100.0100 ####[facility] [address] [place], [address] Hematocrit (Bld) [Volume fraction] 32.6 % Low 37-47 [facility] Comment on above: Performed By: #### L 500.2500, L100.0100 ####[facility] [address] [place], [address] Hemoglobin (Bld) [Mass/Vol] 11.0 g/dL Low 12.0-15.0 [facility] Comment on above: Performed By: #### L 500.2500, L100.0100 ####[facility] [address] [place], [address] IG% 0.500 Normal 0.0-0.9 [facility] Comment on above: Result Comment: IG% - Immature Granulocytes (promyelocytes, myelocytes andmetamyelocytes) > 1% indicates that a LEFT SHIFT is Present. Performed By: #### L 500.2500, L100.0100 ####[facility] [address] [place], [address] Lymphocytes/100 WBC (Bld) 14.9 % Low 19-41 [facility] Comment on above: Performed By: #### L 500.2500, L100.0100 ####[facility] [address] [place], [address] MCH (RBC) [Entitic mass] 29.4 pg Normal 27.0-32.0 [facility] Comment on above: Performed By: #### L 500.2500, L100.0100 ####[facility] [address] [place], [address] MCHC (RBC) [Mass/Vol] 33.7 g/dL Normal 32-36 [facility] Comment on above: Performed By: #### L 500.2500, L100.0100 ####[facility] [address] [place], [address] MCV (RBC) [Entitic vol] 87.2 fL Normal 81-99 [facility] Comment on above: Performed By: #### L 500.2500, L100.0100 ####[facility] [address] [place], [address] Monocytes/100 WBC (Bld) 9.3 % Normal 0-10 [facility] Comment on above: Performed By: #### L 500.2500, L100.0100 ####[facility] [address] [place], [address] Neutrophils/100 WBC (Bld) 70.0 % Normal 47-70 [facility] Comment on above: Performed By: #### L 500.2500, L100.0100 ####[facility] [address] [place], [address] Nucleated RBC (Bld) [#/Vol] 0 10*3/uL Normal 0-5 [facility] Comment on above: Performed By: #### L 500.2500, L100.0100 ####[facility] [address] [place], [address] Platelet mean volume (Bld) [Entitic vol] 9.8 fL Normal 6.2-12.0 [facility] Comment on above: Performed By: #### L 500.2500, L100.0100 ####[facility] [address] [place], [address] Platelets (Bld) [#/Vol] 290 10*3/uL Normal 150-450 [facility] Comment on above: Performed By: #### L 500.2500, L100.0100 ####[facility] [address] [place], [address] RBC (Bld) [#/Vol] 3.74 10*6/uL Low 4.2-5.4 [facility] Comment on above: Performed By: #### L 500.2500, L100.0100 ####[facility] [address] [place], [address] RDW SD 41.7 fl Normal 35.1-43.9 [facility] Comment on above: Performed By: #### L 500.2500, L100.0100 ####[facility] [address] [place], [address] WBC (Bld) [#/Vol] 6.3 10*3/uL Normal 4.4-11.0 [facility] Comment on above: Performed By: #### L 500.2500, L100.0100 ####[facility] [address] [place], [address] Absolute Neut Normal 2.0-7.7 [facility] Comment on above: Result Comment: Canc elled via OM: Order cancelled - Patient discharged Performed By: #### L 100.0100, L500.2500 ####[facility] [address] [place], [address] HCT Normal 37-47 [facility] Comment on above: Result Comment: Canc elled via OM: Order cancelled - Patient discharged Performed By: #### L 100.0100, L500.2500 ####[facility] [address] [place], [address] HGB Normal 12.0-15.0 [facility] Comment on above: Result Comment: Canc elled via OM: Order cancelled - Patient discharged Performed By: #### L 100.0100, L500.2500 ####[facility] [address] [place], [address] MCH Normal 27.0-32.0 [facility] Comment on above: Result Comment: Canc elled via OM: Order cancelled - Patient discharged Performed By: #### L 100.0100, L500.2500 ####[facility] [address] [place], [address] MCHC Normal 32-36 [facility] Comment on above: Result Comment: Canc elled via OM: Order cancelled - Patient discharged Performed By: #### L 100.0100, L500.2500 ####[facility] [address] [place], [address] MCV Normal 81-99 [facility] Comment on above: Result Comment: Canc elled via OM: Order cancelled - Patient discharged Performed By: #### L 100.0100, L500.2500 ####[facility] [address] [place], [address] NEUT% Normal 47-70 [facility] Comment on above: Result Comment: Canc elled via OM: Order cancelled - Patient discharged Performed By: #### L 100.0100, L500.2500 ####[facility] [address] [place], [address] PLT Normal 150-450 [facility] Comment on above: Result Comment: Canc elled via OM: Order cancelled - Patient discharged Performed By: #### L 100.0100, L500.2500 ####[facility] [address] [place], [address] RBC Normal 4.2-5.4 [facility] Comment on above: Result Comment: Canc elled via OM: Order cancelled - Patient discharged Performed By: #### L 100.0100, L500.2500 ####[facility] [address] [place], [address] RDW CV Normal 11.6-14.6 [facility] Comment on above: Result Comment: Canc elled via OM: Order cancelled - Patient discharged Performed By: #### L 100.0100, L500.2500 ####[facility] [address] [place], [address] RDW SD Normal 35.1-43.9 [facility] Comment on above: Result Comment: Canc elled via OM: Order cancelled - Patient discharged Performed By: #### L 100.0100, L500.2500 ####[facility] [address] [place], [address] WBC Normal 4.4-11.0 [facility] Comment on above: Result Comment: Canc elled via OM: Order cancelled - Patient discharged Performed By: #### L 100.0100, L500.2500 ####[facility] [address] [place], [address] Absolute neutrophil countOrd ered By: Montse Cabrera on 12-11-2024 Neutrophils (Bld) [#/Vol] 5.7 10*3/uL 2.0-7.7 [facility] Anion gap in Serum or Plasma Ordered By: Montse Cabrera on 12-11-2024 Anion gap [Moles/Vol] 12 mmol/L 5-15 [facility] BUN/creatinine ratioOrdered By: Montse Cabrera on 12-11-2024 Urea nitrogen/Creatinine [Mass ratio] 24.2 mg/mg High 07-13 [facility] Basic Metabolic Profile (BMP )on 12-11-2024 BUN/CRE 24.2 RATIO High 07-13 [facility] Comment on above: Performed By: #### L 500.2500, L100.0100 ####[facility] [address] [place], [address] Calcium [Mass/Vol] 9.1 mg/dL Normal 7.6-11.0 [facility] Comment on above: Performed By: #### L 500.2500, L100.0100 ####[facility] [address] [place], [address] Chloride [Moles/Vol] 91 mmol/L Low 98-108 [facility] Comment on above: Performed By: #### L 500.2500, L100.0100 ####[facility] [address] [place], [address] CO2 [Moles/Vol] 18.5 mmol/L Low 21.0-32.0 [facility] Comment on above: Performed By: #### L 500.2500, L100.0100 ####[facility] [address] [place], [address] Creatinine [Mass/Vol] 0.95 mg/dL Normal 0.70-1.20 [facility] Comment on above: Performed By: #### L 500.2500, L100.0100 ####[facility] [address] [place], [address] ECRCL 49.52 ml/min Low 50-250 [facility] Comment on above: Performed By: #### L 500.2500, L100.0100 ####[facility] [address] [place], [address] GAP 12 Normal 5-15 [facility] Comment on above: Performed By: #### L 500.2500, L100.0100 ####[facility] [address] [place], [address] GFR/1.73 sq M.predicted among non-blacks MDRD (S/P/Bld) [Vol rate/Area] 60 mL/min/{1.73_m2} Normal >60 [facility] Comment on above: Result Comment: mL/m in/1.73m2 CKD-EPI Creatinine Equation (2020) Performed By: #### L 500.2500, L100.0100 ####[facility] [address] [place], [address] Glucose [Mass/Vol] 108 mg/dL High 70-99 [facility] Comment on above: Performed By: #### L 500.2500, L100.0100 ####[facility] [address] [place], [address] Potassium [Moles/Vol] 4.7 mmol/L Normal 3.3-5.1 [facility] Comment on above: Performed By: #### L 500.2500, L100.0100 ####[facility] [address] [place], [address] Sodium [Moles/Vol] 122 mmol/L Low 133-145 [facility] Comment on above: Performed By: #### L 500.2500, L100.0100 ####[facility] [address] [place], [address] Urea nitrogen [Mass/Vol] 23 mg/dL High 4-19 [facility] Comment on above: Performed By: #### L 500.2500, L100.0100 ####[facility] [address] [place], [address] Basophil percentageOrdered B y: Montse Cabrera on 12-11-2024 Basophils/100 WBC (Bld) 0.4 % 0-1 [facility] CBC W/Diff, Automatedon 03-2 0-2024 Absolute Lymph 0.65 X10 3/uL Low 0.83-4.51 [facility] Comment on above: Performed By: #### L 500.2500, L100.0100 ####[facility] [address] [place], [address] Absolute Neut 5.7 X10 3/uL Normal 2.0-7.7 [facility] Comment on above: Performed By: #### L 500.2500, L100.0100 ####[facility] [address] [place], [address] Basophils/100 WBC (Bld) 0.4 % Normal 0-1 [facility] Comment on above: Performed By: #### L 500.2500, L100.0100 ####[facility] [address] [place], [address] Eosinophils/100 WBC (Bld) 1.5 % Normal 0-5 [facility] Comment on above: Performed By: #### L 500.2500, L100.0100 ####[facility] [address] [place], [address] Erythrocyte distribution width (RBC) [Ratio] 12.7 % Normal 11.6-14.6 [facility] Comment on above: Performed By: #### L 500.2500, L100.0100 ####[facility] [address] [place], [address] Hematocrit (Bld) [Volume fraction] 35.0 % Low 37-47 [facility] Comment on above: Performed By: #### L 500.2500, L100.0100 ####[facility] [address] [place], [address] Hemoglobin (Bld) [Mass/Vol] 12.0 g/dL Normal 12.0-15.0 [facility] Comment on above: Performed By: #### L 500.2500, L100.0100 ####[facility] [address] [place], [address] IG% 0.700 Normal 0.0-0.9 [facility] Comment on above: Result Comment: IG% - Immature Granulocytes (promyelocytes, myelocytes andmetamyelocytes) > 1% indicates that a LEFT SHIFT is Present. Performed By: #### L 500.2500, L100.0100 ####[facility] [address] [place], [address] Lymphocytes/100 WBC (Bld) 9.1 % Low 19-41 [facility] Comment on above: Performed By: #### L 500.2500, L100.0100 ####[facility] [address] [place], [address] MCH (RBC) [Entitic mass] 29.3 pg Normal 27.0-32.0 [facility] Comment on above: Performed By: #### L 500.2500, L100.0100 ####[facility] [address] [place], [address] MCHC (RBC) [Mass/Vol] 34.3 g/dL Normal 32-36 [facility] Comment on above: Performed By: #### L 500.2500, L100.0100 ####[facility] [address] [place], [address] MCV (RBC) [Entitic vol] 85.6 fL Normal 81-99 [facility] Comment on above: Performed By: #### L 500.2500, L100.0100 ####[facility] [address] [place], [address] Monocytes/100 WBC (Bld) 8.5 % Normal 0-10 [facility] Comment on above: Performed By: #### L 500.2500, L100.0100 ####[facility] [address] [place], [address] Neutrophils/100 WBC (Bld) 79.8 % High 47-70 [facility] Comment on above: Performed By: #### L 500.2500, L100.0100 ####[facility] [address] [place], [address] Nucleated RBC (Bld) [#/Vol] 0 10*3/uL Normal 0-5 [facility] Comment on above: Performed By: #### L 500.2500, L100.0100 ####[facility] [address] [place], [address] Platelet mean volume (Bld) [Entitic vol] 9.8 fL Normal 6.2-12.0 [facility] Comment on above: Performed By: #### L 500.2500, L100.0100 ####[facility] [address] [place], [address] Platelets (Bld) [#/Vol] 277 10*3/uL Normal 150-450 [facility] Comment on above: Performed By: #### L 500.2500, L100.0100 ####[facility] [address] [place], [address] RBC (Bld) [#/Vol] 4.09 10*6/uL Low 4.2-5.4 [facility] Comment on above: Performed By: #### L 500.2500, L100.0100 ####[facility] [address] [place], [address] RDW SD 39.5 fl Normal 35.1-43.9 [facility] Comment on above: Performed By: #### L 500.2500, L100.0100 ####[facility] [address] [place], [address] WBC (Bld) [#/Vol] 7.2 10*3/uL Normal 4.4-11.0 [facility] Comment on above: Performed By: #### L 500.2500, L100.0100 ####[facility] [address] [place], [address] Carbon dioxide, total [Moles /volume] in Central venous bloodOrdered By: Montse Cabrera on 12-11-2024 CO2 [Moles/Vol] 18.5 mmol/L Low 21.0-32.0 [facility] Chloride assayOrdered By: Neela Cabrera on 12-11-2024 Chloride [Moles/Vol] 91 mmol/L Low 98-108 [facility] Eosinophil percentageOrdered By: Montse Cabrera on 12-11-2024 Eosinophils/100 WBC (Bld) 1.5 % 0-5 [facility] Erythrocyte distribution wid th ratioOrdered By: Montse Cabrera on 12-11-2024 Erythrocyte distribution width (RBC) [Ratio] 12.7 % 11.6-14.6 [facility] Erythrocyte distribution wid th standard deviationOrdered By: Montse Cabrera on 12-11-2024 Erythrocyte distribution width (RBC) [Entitic vol] 39.5 fL 35.1-43.9 [facility] Estimation of creatinine clemencia aranceOrdered By: Montse Cabrera on 12-11-2024 Estimated Creatinine Clearance Calc 49.52 ml/min Low 50-250 [facility] GFR/1.73 sq M.predicted stephen g non-blacks MDRD (S/P/Bld) [Vol rate/Area]Ordered By: Montse Cabrera on 12-11-2024 Estimated GFR (MDRD) Non-Af Amer 60 >60 [facility] Comment on above: mL/min/1.73m2 CKD-EP I Creatinine Equation (2020) Hematocrit Auto (Bld) [Volum e fraction]Ordered By: Montse Cabrera 12-11-2024 Hematocrit (Bld) [Volume fraction] 35.0 % Low 37-47 [facility] Hemoglobin measurementOrdere d By: Montse Cabrera on 12-11-2024 Hemoglobin (Bld) [Mass/Vol] 12.0 g/dL 12.0-15.0 [facility] Immature granulocytes/100 WB C Auto (Bld)Ordered By: Montse Cabrera on 12-11-2024 Immature granulocytes/100 WBC (Bld) 0.700 % 0.0-0.9 [facility] Comment on above: IG% - Immature Granu locytes (promyelocytes, myelocytes and metamyelocytes) > 1% indicates that a LEFT SHIFT is Present. Lymphocytes Auto (Unsp spec) [#/Vol]Ordered By: Montse Cabrera on 12-11-2024 Lymphocytes (Bld) [#/Vol] 0.65 10*3/uL Low 0.83-4.51 [facility] Lymphocytes/100 WBC Auto (Un sp spec)Ordered By: Montse Cabrera on 12-11-2024 Lymphocytes/100 WBC (Bld) 9.1 % Low 19-41 [facility] MCV (mean corpuscular volume ) determinationOrdered By: Montse Cabrera on 12-11-2024 MCV (RBC) [Entitic vol] 85.6 fL 81-99 [facility] Mean corpuscular hemoglobin (MCH) determinationOrdered By: Montse Cabrera on 12-11-2024 MCH (RBC) [Entitic mass] 29.3 pg 27.0-32.0 [facility] Mean corpuscular hemoglobin concentration (MCHC) determinationOrdered By: Montse Cabrera on 12-11-2024 MCHC (RBC) [Mass/Vol] 34.3 g/dL 32-36 [facility] Mean platelet volume determi nationOrdered By: Montse Cabrera on 12-11-2024 Platelet mean volume (Bld) [Entitic vol] 9.8 fL 6.2-12.0 [facility] Monocyte percentageOrdered B y: Montse Cabrera on 12-11-2024 Monocytes/100 WBC (Bld) 8.5 % 0-10 [facility] Neutrophil percentageOrdered By: Montse Cabrera on 12-11-2024 Neutrophils/100 WBC (Bld) 79.8 % High 47-70 [facility] Nucleated red blood cell per centageOrdered By: Montse Cabrera on 12-11-2024 Nucleated RBC/100 WBC (Bld) [Ratio] 0 % 0-5 [facility] Platelet countOrdered By: Neela Cabrera on 12-11-2024 Platelets (Bld) [#/Vol] 277 10*3/uL 150-450 [facility] Potassium (Unsp spec) [Mass/ Vol]Ordered By: Montse Cabrera on 12-11-2024 Potassium [Moles/Vol] 4.7 mmol/L 3.3-5.1 [facility] RBC Auto (Bld) [#/Vol]Ordere d By: Montse Cabrera on 12-11-2024 RBC (Bld) [#/Vol] 4.09 10*6/uL Low 4.2-5.4 [facility] Serum creatinine measurement (mass/volume)Ordered By: Montse Cabrera on 12-11-2024 Creatinine [Mass/Vol] 0.95 mg/dL 0.70-1.20 [facility] Serum glucose measurement (m ass/volume)Ordered By: Montse Cabrera on 12-11-2024 Glucose [Mass/Vol] 108 mg/dL High 70-99 [facility] Serum or plasma calcium cindy urement (mass/volume)Ordered By: Montse Cabrera on 12-11-2024 Calcium [Mass/Vol] 9.1 mg/dL 7.6-11.0 [facility] Serum or plasma urea nitroge n measurement (mass/volume)Ordered By: Montse Cabrera on 12-11-2024 Urea nitrogen [Mass/Vol] 23 mg/dL High 4-19 [facility] Sodium levelOrdered By: Montse Cabrera on 12-11-2024 Sodium [Moles/Vol] 122 mmol/L Low 133-145 [facility] White blood cell (WBC) count Ordered By: Montse Cabrera on 12-11-2024 WBC (Bld) [#/Vol] 7.2 10*3/uL 4.4-11.0 [facility] Basic Metabolic Profile (BMP )on 12-10-2024 BUN/CRE 28.0 RATIO High 10-20 [facility] Comment on above: Performed By: #### L 500.2500 ####[facility] [address] [place], [address] Calcium [Mass/Vol] 8.8 mg/dL Normal 7.6-11.0 [facility] Comment on above: Performed By: #### L 500.2500 ####[facility] [address] [place], [address] Chloride [Moles/Vol] 88 mmol/L Low 98-108 [facility] Comment on above: Performed By: #### L 500.2500 ####[facility] [address] [place], [address] CO2 [Moles/Vol] 18.5 mmol/L Low 21.0-32.0 [facility] Comment on above: Performed By: #### L 500.2500 ####[facility] [address] [place], [address] Creatinine [Mass/Vol] 0.67 mg/dL Low 0.70-1.20 [facility] Comment on above: Performed By: #### L 500.2500 ####[facility] [address] [place], [address] ECRCL 58.80 ml/min Normal 50-250 [facility] Comment on above: Performed By: #### L 500.2500 ####[facility] [address] [place], [address] GAP 12 Normal 5-15 [facility] Comment on above: Performed By: #### L 500.2500 ####[facility] [address] [place], [address] GFR/1.73 sq M.predicted among non-blacks MDRD (S/P/Bld) [Vol rate/Area] 88 mL/min/{1.73_m2} Normal >60 [facility] Comment on above: Result Comment: mL/m in/1.73m2 CKD-EPI Creatinine Equation (2020) Performed By: #### L 500.2500 ####[facility] [address] [place], [address] Glucose [Mass/Vol] 110 mg/dL High 70-99 [facility] Comment on above: Performed By: #### L 500.2500 ####[facility] [address] [place], [address] Potassium [Moles/Vol] 4.4 mmol/L Normal 3.3-5.1 [facility] Comment on above: Performed By: #### L 500.2500 ####[facility] [address] [place], [address] Sodium [Moles/Vol] 118 mmol/L Invalid Interpretation Code 133-145 [facility] Comment on above: Result Comment: Crit ical Result(s) Called at 1534: TO KSHANK by:KCLAPPER??Results read back by same. Performed By: #### L 500.2500 ####[facility] [address] [place], [address] Urea nitrogen [Mass/Vol] 19 mg/dL Normal 4-19 [facility] Comment on above: Performed By: #### L 500.2500 ####[facility] [address] [place], [address] BUN/CRE 29.0 RATIO High 10-20 [facility] Comment on above: Performed By: #### L 100.0100, L500.2500 ####[facility] [address] [place], [address] Calcium [Mass/Vol] 8.6 mg/dL Normal 7.6-11.0 [facility] Comment on above: Performed By: #### L 100.0100, L500.2500 ####[facility] [address] [place], [address] Chloride [Moles/Vol] 91 mmol/L Low 98-108 [facility] Comment on above: Performed By: #### L 100.0100, L500.2500 ####[facility] [address] [place], [address] CO2 [Moles/Vol] 19.4 mmol/L Low 21.0-32.0 [facility] Comment on above: Performed By: #### L 100.0100, L500.2500 ####[facility] [address] [place], [address] Creatinine [Mass/Vol] 0.70 mg/dL Normal 0.70-1.20 [facility] Comment on above: Performed By: #### L 100.0100, L500.2500 ####[facility] [address] [place], [address] ECRCL 58.80 ml/min Normal 50-250 [facility] Comment on above: Performed By: #### L 100.0100, L500.2500 ####[facility] [address] [place], [address] GAP 9 Normal 5-15 [facility] Comment on above: Performed By: #### L 100.0100, L500.2500 ####[facility] [address] [place], [address] GFR/1.73 sq M.predicted among non-blacks MDRD (S/P/Bld) [Vol rate/Area] 87 mL/min/{1.73_m2} Normal >60 [facility] Comment on above: Result Comment: mL/m in/1.73m2 CKD-EPI Creatinine Equation (2020) Performed By: #### L 100.0100, L500.2500 ####[facility] [address] [place], [address] Glucose [Mass/Vol] 111 mg/dL High 70-99 [facility] Comment on above: Performed By: #### L 100.0100, L500.2500 ####[facility] [address] [place], [address] Potassium [Moles/Vol] 4.5 mmol/L Normal 3.3-5.1 [facility] Comment on above: Performed By: #### L 100.0100, L500.2500 ####[facility] [address] [place], [address] Sodium [Moles/Vol] 119 mmol/L Invalid Interpretation Code 133-145 [facility] Comment on above: Result Comment: Crit ical Result(s) Called at:0625by: MIREYA HAVEN TO MANUEL??Results read back by same. Performed By: #### L 100.0100, L500.2500 ####[facility] [address] [place], [address] Urea nitrogen [Mass/Vol] 20 mg/dL High 4-19 [facility] Comment on above: Performed By: #### L 100.0100, L500.2500 ####[facility] [address] [place], [address] CBC W/Diff, Automatedon 11-22 Absolute Lymph 0.92 X10 3/uL Normal 0.83-4.51 [facility] Comment on above: Performed By: #### L 100.0100, L500.2500 ####[facility] [address] [place], [address] Absolute Neut 5.5 X10 3/uL Normal 2.0-7.7 [facility] Comment on above: Performed By: #### L 100.0100, L500.2500 ####[facility] [address] [place], [address] Basophils/100 WBC (Bld) 0.3 % Normal 0-1 [facility] Comment on above: Performed By: #### L 100.0100, L500.2500 ####[facility] [address] [place], [address] Eosinophils/100 WBC (Bld) 2.5 % Normal 0-5 [facility] Comment on above: Performed By: #### L 100.0100, L500.2500 ####[facility] [address] [place], [address] Erythrocyte distribution width (RBC) [Ratio] 12.8 % Normal 11.6-14.6 [facility] Comment on above: Performed By: #### L 100.0100, L500.2500 ####[facility] [address] [place], [address] Hematocrit (Bld) [Volume fraction] 34.0 % Low 37-47 [facility] Comment on above: Performed By: #### L 100.0100, L500.2500 ####[facility] [address] [place], [address] Hemoglobin (Bld) [Mass/Vol] 11.7 g/dL Low 12.0-15.0 [facility] Comment on above: Performed By: #### L 100.0100, L500.2500 ####[facility] [address] [place], [address] IG% 0.400 Normal 0.0-0.9 [facility] Comment on above: Result Comment: IG% - Immature Granulocytes (promyelocytes, myelocytes andmetamyelocytes) > 1% indicates that a LEFT SHIFT is Present. Performed By: #### L 100.0100, L500.2500 ####[facility] [address] [place], [address] Lymphocytes/100 WBC (Bld) 12.7 % Low 19-41 [facility] Comment on above: Performed By: #### L 100.0100, L500.2500 ####[facility] [address] [place], [address] MCH (RBC) [Entitic mass] 29.1 pg Normal 27.0-32.0 [facility] Comment on above: Performed By: #### L 100.0100, L500.2500 ####[facility] [address] [place], [address] MCHC (RBC) [Mass/Vol] 34.4 g/dL Normal 32-36 [facility] Comment on above: Performed By: #### L 100.0100, L500.2500 ####[facility] [address] [place], [address] MCV (RBC) [Entitic vol] 84.6 fL Normal 81-99 [facility] Comment on above: Performed By: #### L 100.0100, L500.2500 ####[facility] [address] [place], [address] Monocytes/100 WBC (Bld) 8.1 % Normal 0-10 [facility] Comment on above: Performed By: #### L 100.0100, L500.2500 ####[facility] [address] [place], [address] Neutrophils/100 WBC (Bld) 76.0 % High 47-70 [facility] Comment on above: Performed By: #### L 100.0100, L500.2500 ####[facility] [address] [place], [address] Nucleated RBC (Bld) [#/Vol] 0 10*3/uL Normal 0-5 [facility] Comment on above: Performed By: #### L 100.0100, L500.2500 ####[facility] [address] [place], [address] Platelet mean volume (Bld) [Entitic vol] 9.5 fL Normal 6.2-12.0 [facility] Comment on above: Performed By: #### L 100.0100, L500.2500 ####[facility] [address] [place], [address] Platelets (Bld) [#/Vol] 255 10*3/uL Normal 150-450 [facility] Comment on above: Performed By: #### L 100.0100, L500.2500 ####[facility] [address] [place], [address] RBC (Bld) [#/Vol] 4.02 10*6/uL Low 4.2-5.4 [facility] Comment on above: Performed By: #### L 100.0100, L500.2500 ####[facility] [address] [place], [address] RDW SD 39.2 fl Normal 35.1-43.9 [facility] Comment on above: Performed By: #### L 100.0100, L500.2500 ####[facility] [address] [place], [address] WBC (Bld) [#/Vol] 7.3 10*3/uL Normal 4.4-11.0 [facility] Comment on above: Performed By: #### L 100.0100, L500.2500 ####[facility] [address] [place], [address] Consultation - Nephrologyon 12-10-2024 Consultation - Nephrology Normal [facility] Basic Metabolic Profile (BMP )on 12-09-2024 BUN/CRE 30.0 RATIO High 10-20 [facility] Comment on above: Performed By: #### L 500.2500 ####[facility] [address] [place], [address] Calcium [Mass/Vol] 8.8 mg/dL Normal 7.6-11.0 [facility] Comment on above: Performed By: #### L 500.2500 ####[facility] [address] [place], [address] Chloride [Moles/Vol] 89 mmol/L Low 98-108 [facility] Comment on above: Performed By: #### L 500.2500 ####[facility] [address] [place], [address] CO2 [Moles/Vol] 21.0 mmol/L Normal 21.0-32.0 [facility] Comment on above: Performed By: #### L 500.2500 ####[facility] [address] [place], [address] Creatinine [Mass/Vol] 0.75 mg/dL Normal 0.70-1.20 [facility] Comment on above: Performed By: #### L 500.2500 ####[facility] [address] [place], [address] ECRCL 58.80 ml/min Normal 50-250 [facility] Comment on above: Performed By: #### L 500.2500 ####[facility] [address] [place], [address] GAP 8 Normal 5-15 [facility] Comment on above: Performed By: #### L 500.2500 ####[facility] [address] [place], [address] GFR/1.73 sq M.predicted among non-blacks MDRD (S/P/Bld) [Vol rate/Area] 80 mL/min/{1.73_m2} Normal >60 [facility] Comment on above: Result Comment: mL/m in/1.73m2 CKD-EPI Creatinine Equation (2020) Performed By: #### L 500.2500 ####[facility] [address] [place], [address] Glucose [Mass/Vol] 105 mg/dL High 70-99 [facility] Comment on above: Performed By: #### L 500.2500 ####[facility] [address] [place], [address] Potassium [Moles/Vol] 4.4 mmol/L Normal 3.3-5.1 [facility] Comment on above: Performed By: #### L 500.2500 ####[facility] [address] [place], [address] Sodium [Moles/Vol] 118 mmol/L Invalid Interpretation Code 133-145 [facility] Comment on above: Result Comment: Crit ical Result(s) Called ACOLE at: 1605 by:PHILLIP??Results read back by same. Performed By: #### L 500.2500 ####[facility] [address] [place], [address] Urea nitrogen [Mass/Vol] 22 mg/dL High 4-19 [facility] Comment on above: Performed By: #### L 500.2500 ####[facility] [address] [place], [place], [phone] Osmolality (U) [Osmolality]O rdered By: Montse Cabrera on 12-09-2024 Urine Osmolality 661 mOsm/KG >50 [facility] Comment on above: Normal Urine Referen ce Ranges Random: 50 - 1200 mOsm/kg H20 depending on fluid intake Random: >850 mOsm/kg after 12 hour fluid restriction 24 hour: ~300 - 900 mOsm/kg H2O Osmolality, Serumon 12-10-19 25 OSMOLALITY,SER 257 mOsm/KG Low 280-301 [facility] Comment on above: Performed By: #### L 501.7300 ####[facility] [address] [facility] [place], [place], [phone](421) Osmolality, Urineon 12-10-19 25 OSMOLALITY,UR 661 mOsm/KG Normal [facility] Comment on above: Result Comment: Norm al Urine Reference Ranges Random: 50 - 1200 mOsm/kg H20 depending on fluid intake Random: >850 mOsm/kg after 12 hour fluid restriction 24 hour: 300 - 900 mOsm/kg H2O Performed By: #### L 501.7400, L501.5500 ####[facility] [address] [facility], [address] Osmolality, serumOrdered By: Montse Cabrera on 12-09-2024 Serum Osmolality 257 mOsm/KG Low 280-301 [facility] Sodium Levelon 12-09-2024 Sodium [Moles/Vol] 118 mmol/L Invalid Interpretation Code 133-145 [facility] Comment on above: Result Comment: Crit ical Result(s) Called at:2320 by: MIREYA MORALES??Results read back by same. Performed By: #### L 501.5300 ####[facility] [address] [facility] [place], [place], [phone] Urine sodium measurement (mo les/volume)Ordered By: Montse Cabrera on 12-09-2024 Sodium (U) [Moles/Vol] 22 mmol/L Normal Not Establ. [facility] Comment on above: Performed By: #### L 501.7400, L501.5500 ####[facility] [address] [place], [address] Basic Metabolic Profile (BMP )on 12-08-2024 BUN/CRE 30.4 RATIO High 10-20 [facility] Comment on above: Performed By: #### L 500.2500, L100.0100 ####[facility] [address] [place], [address] Calcium [Mass/Vol] 9.0 mg/dL Normal 7.6-11.0 [facility] Comment on above: Performed By: #### L 500.2500, L100.0100 ####[facility] [address] [place], [address] Chloride [Moles/Vol] 94 mmol/L Low 98-108 [facility] Comment on above: Performed By: #### L 500.2500, L100.0100 ####[facility] [address] [place], [address] CO2 [Moles/Vol] 22.7 mmol/L Normal 21.0-32.0 [facility] Comment on above: Performed By: #### L 500.2500, L100.0100 ####[facility] [address] [place], [address] Creatinine [Mass/Vol] 0.84 mg/dL Normal 0.70-1.20 [facility] Comment on above: Performed By: #### L 500.2500, L100.0100 ####[facility] [address] [place], [address] ECRCL 56.00 ml/min Normal 50-250 [facility] Comment on above: Performed By: #### L 500.2500, L100.0100 ####[facility] [address] [place], [address] GAP 9 Normal 5-15 [facility] Comment on above: Performed By: #### L 500.2500, L100.0100 ####[facility] [address] [place], [address] GFR/1.73 sq M.predicted among non-blacks MDRD (S/P/Bld) [Vol rate/Area] 70 mL/min/{1.73_m2} Normal >60 [facility] Comment on above: Result Comment: mL/m in/1.73m2 CKD-EPI Creatinine Equation (2020) Performed By: #### L 500.2500, L100.0100 ####[facility] [address] [place], [address] Glucose [Mass/Vol] 134 mg/dL High 70-99 [facility] Comment on above: Performed By: #### L 500.2500, L100.0100 ####[facility] [address] [place], [address] Potassium [Moles/Vol] 3.8 mmol/L Normal 3.3-5.1 [facility] Comment on above: Performed By: #### L 500.2500, L100.0100 ####[facility] [address] [place], [address] Sodium [Moles/Vol] 125 mmol/L Low 133-145 [facility] Comment on above: Performed By: #### L 500.2500, L100.0100 ####[facility] [address] [place], [address] Urea nitrogen [Mass/Vol] 26 mg/dL High 4-19 [facility] Comment on above: Performed By: #### L 500.2500, L100.0100 ####[facility] [address] [place], [address] CBC W/Diff, Automatedon - Absolute Lymph 0.99 X10 3/uL Normal 0.83-4.51 [facility] Comment on above: Performed By: #### L 500.2500, L100.0100 ####[facility] [address] [place], [address] Absolute Neut 7.0 X10 3/uL Normal 2.0-7.7 [facility] Comment on above: Performed By: #### L 500.2500, L100.0100 ####[facility] [address] [place], [address] Basophils/100 WBC (Bld) 0.2 % Normal 0-1 [facility] Comment on above: Performed By: #### L 500.2500, L100.0100 ####[facility] [address] [place], [address] Eosinophils/100 WBC (Bld) 1.4 % Normal 0-5 [facility] Comment on above: Performed By: #### L 500.2500, L100.0100 ####[facility] [address] [place], [address] Erythrocyte distribution width (RBC) [Ratio] 13.0 % Normal 11.6-14.6 [facility] Comment on above: Performed By: #### L 500.2500, L100.0100 ####[facility] [address] [place], [address] Hematocrit (Bld) [Volume fraction] 37.9 % Normal 37-47 [facility] Comment on above: Performed By: #### L 500.2500, L100.0100 ####[facility] [address] [place], [address] Hemoglobin (Bld) [Mass/Vol] 12.6 g/dL Normal 12.0-15.0 [facility] Comment on above: Performed By: #### L 500.2500, L100.0100 ####[facility] [address] [place], [address] IG% 0.300 Normal 0.0-0.9 [facility] Comment on above: Result Comment: IG% - Immature Granulocytes (promyelocytes, myelocytes andmetamyelocytes) > 1% indicates that a LEFT SHIFT is Present. Performed By: #### L 500.2500, L100.0100 ####[facility] [address] [place], [address] Lymphocytes/100 WBC (Bld) 11.2 % Low 19-41 [facility] Comment on above: Performed By: #### L 500.2500, L100.0100 ####[facility] [address] [place], [address] MCH (RBC) [Entitic mass] 29.2 pg Normal 27.0-32.0 [facility] Comment on above: Performed By: #### L 500.2500, L100.0100 ####[facility] [address] [place], [address] MCHC (RBC) [Mass/Vol] 33.2 g/dL Normal 32-36 [facility] Comment on above: Performed By: #### L 500.2500, L100.0100 ####[facility] [address] [place], [address] MCV (RBC) [Entitic vol] 87.9 fL Normal 81-99 [facility] Comment on above: Performed By: #### L 500.2500, L100.0100 ####[facility] [address] [place], [address] Monocytes/100 WBC (Bld) 7.2 % Normal 0-10 [facility] Comment on above: Performed By: #### L 500.2500, L100.0100 ####[facility] [address] [place], [address] Neutrophils/100 WBC (Bld) 79.7 % High 47-70 [facility] Comment on above: Performed By: #### L 500.2500, L100.0100 ####[facility] [address] [place], [address] Nucleated RBC (Bld) [#/Vol] 0 10*3/uL Normal 0-5 [facility] Comment on above: Performed By: #### L 500.2500, L100.0100 ####[facility] [address] [place], [address] Platelet mean volume (Bld) [Entitic vol] 9.3 fL Normal 6.2-12.0 [facility] Comment on above: Performed By: #### L 500.2500, L100.0100 ####[facility] [address] [place], [address] Platelets (Bld) [#/Vol] 248 10*3/uL Normal 150-450 [facility] Comment on above: Performed By: #### L 500.2500, L100.0100 ####[facility] [address] [place], [address] RBC (Bld) [#/Vol] 4.31 10*6/uL Normal 4.2-5.4 [facility] Comment on above: Performed By: #### L 500.2500, L100.0100 ####[facility] [address] [place], [address] RDW SD 42.1 fl Normal 35.1-43.9 [facility] Comment on above: Performed By: #### L 500.2500, L100.0100 ####[facility] [address] [place], [address] WBC (Bld) [#/Vol] 8.8 10*3/uL Normal 4.4-11.0 [facility] Comment on above: Performed By: #### L 500.2500, L100.0100 ####[facility] [address] [place], [address] Electrocardiogram reportOrde red By: Wally So on 12-08-2024 EKG study [facility] [address] [place] [address] 12 Lead EKG 12/06/24 1749 MR#: [id number] Acct: [id number] Name: JERO LEWIS Rep #:[id number] : 1945 79 From: Wally So MD Attending Dr: Dr. Montse Cabrera MD Status: ADM IN Ordering Dr: Rita Nowak Date: 12/06/24 Location: U Sex: F C Admitted: 12/06/24 Test Reason : SYNC Blood Pressure : */* mmHG Vent. Rate : 81 BPM Atrial Rate : 81 BPM P-R Int : 142 ms QRS Dur : 96 ms QT Int : 398 ms P-R-T Axes : 66 -23 114 degrees QTcB Int : 462 ms Sinus rhythm with occasional Premature ventricular complexes Nonspecific ST and T wave abnormality Abnormal ECG Confirmed by WALLY SO MD ([id number]), deputy editor in chief SHALINI LOUIS ([id number]) on 12/08/2024 8:18:25 AM Referred By: WRT Confirmed By: WALLY SO MD 12/08/24 0818 Date _ Wally So MD CC: Dr. Argelia Darby DO; Dr. Montse Cabrera MD; MEKHI Raza ~ Signed [facility] Other Phone: Bilirubin directOrdered By: Sandro Jackman on 12-07-2024 Bilirubin.direct [Mass/Vol] 0.29 mg/dL 0.00-0.30 [facility] Bilirubin, Directon 12-08-19 25 Bilirubin.direct [Mass/Vol] 0.29 mg/dL Normal 0.00-0.30 [facility] Comment on above: Performed By: #### L 501.5200, L501.2300, L100.0100, L501.4700, L500.4050, L300.3900, L501.9520 ####[facility] [address] [place], [address] Bilirubin, totalOrdered By: Sandro Jackman on 12-07-2024 Bilirubin [Mass/Vol] 0.68 mg/dL 0.00-1.30 [facility] CBC W/Diff, Automatedon 11-22 Absolute Lymph 0.97 X10 3/uL Normal 0.83-4.51 [facility] Comment on above: Performed By: #### L 501.5200, L501.2300, L100.0100, L501.4700, L500.4050, L300.3900, L501.9520 ####[facility] [address] [place], [address] Absolute Neut 5.7 X10 3/uL Normal 2.0-7.7 [facility] Comment on above: Performed By: #### L 501.5200, L501.2300, L100.0100, L501.4700, L500.4050, L300.3900, L501.9520 ####[facility] [address] [place], [address] Basophils/100 WBC (Bld) 0.3 % Normal 0-1 [facility] Comment on above: Performed By: #### L 501.5200, L501.2300, L100.0100, L501.4700, L500.4050, L300.3900, L501.9520 ####[facility] [address] [place], [address] Eosinophils/100 WBC (Bld) 0.4 % Normal 0-5 [facility] Comment on above: Performed By: #### L 501.5200, L501.2300, L100.0100, L501.4700, L500.4050, L300.3900, L501.9520 ####[facility] [address] [place], [address] Erythrocyte distribution width (RBC) [Ratio] 13.0 % Normal 11.6-14.6 [facility] Comment on above: Performed By: #### L 501.5200, L501.2300, L100.0100, L501.4700, L500.4050, L300.3900, L501.9520 ####[facility] [address] [place], [address] Hematocrit (Bld) [Volume fraction] 39.0 % Normal 37-47 [facility] Comment on above: Performed By: #### L 501.5200, L501.2300, L100.0100, L501.4700, L500.4050, L300.3900, L501.9520 ####[facility] [address] [place], [address] Hemoglobin (Bld) [Mass/Vol] 12.9 g/dL Normal 12.0-15.0 [facility] Comment on above: Performed By: #### L 501.5200, L501.2300, L100.0100, L501.4700, L500.4050, L300.3900, L501.9520 ####[facility] [address] [place], [address] IG% 0.400 Normal 0.0-0.9 [facility] Comment on above: Result Comment: IG% - Immature Granulocytes (promyelocytes, myelocytes andmetamyelocytes) > 1% indicates that a LEFT SHIFT is Present. Performed By: #### L 501.5200, L501.2300, L100.0100, L501.4700, L500.4050, L300.3900, L501.9520 ####[facility] [address] [place], [address] Lymphocytes/100 WBC (Bld) 13.1 % Low 19-41 [facility] Comment on above: Performed By: #### L 501.5200, L501.2300, L100.0100, L501.4700, L500.4050, L300.3900, L501.9520 ####[facility] [address] [place], [address] MCH (RBC) [Entitic mass] 29.3 pg Normal 27.0-32.0 [facility] Comment on above: Performed By: #### L 501.5200, L501.2300, L100.0100, L501.4700, L500.4050, L300.3900, L501.9520 ####[facility] [address] [place], [address] MCHC (RBC) [Mass/Vol] 33.1 g/dL Normal 32-36 [facility] Comment on above: Performed By: #### L 501.5200, L501.2300, L100.0100, L501.4700, L500.4050, L300.3900, L501.9520 ####[facility] [address] [place], [address] MCV (RBC) [Entitic vol] 88.6 fL Normal 81-99 [facility] Comment on above: Performed By: #### L 501.5200, L501.2300, L100.0100, L501.4700, L500.4050, L300.3900, L501.9520 ####[facility] [address] [place], [address] Monocytes/100 WBC (Bld) 8.3 % Normal 0-10 [facility] Comment on above: Performed By: #### L 501.5200, L501.2300, L100.0100, L501.4700, L500.4050, L300.3900, L501.9520 ####[facility] [address] [place], [address] Neutrophils/100 WBC (Bld) 77.5 % High 47-70 [facility] Comment on above: Performed By: #### L 501.5200, L501.2300, L100.0100, L501.4700, L500.4050, L300.3900, L501.9520 ####[facility] [address] [place], [address] Nucleated RBC (Bld) [#/Vol] 0 10*3/uL Normal 0-5 [facility] Comment on above: Performed By: #### L 501.5200, L501.2300, L100.0100, L501.4700, L500.4050, L300.3900, L501.9520 ####[facility] [address] [place], [address] Platelet mean volume (Bld) [Entitic vol] 9.7 fL Normal 6.2-12.0 [facility] Comment on above: Performed By: #### L 501.5200, L501.2300, L100.0100, L501.4700, L500.4050, L300.3900, L501.9520 ####[facility] [address] [place], [address] Platelets (Bld) [#/Vol] 263 10*3/uL Normal 150-450 [facility] Comment on above: Performed By: #### L 501.5200, L501.2300, L100.0100, L501.4700, L500.4050, L300.3900, L501.9520 ####[facility] [address] [place], [address] RBC (Bld) [#/Vol] 4.40 10*6/uL Normal 4.2-5.4 [facility] Comment on above: Performed By: #### L 501.5200, L501.2300, L100.0100, L501.4700, L500.4050, L300.3900, L501.9520 ####[facility] [address] [place], [address] RDW SD 42.5 fl Normal 35.1-43.9 [facility] Comment on above: Performed By: #### L 501.5200, L501.2300, L100.0100, L501.4700, L500.4050, L300.3900, L501.9520 ####[facility] [address] [place], [place], [id number] WBC (Bld) [#/Vol] 7.4 10*3/uL Normal 4.4-11.0 [facility] Comment on above: Performed By: #### L 501.5200, L501.2300, L100.0100, L501.4700, L500.4050, L300.3900, L501.9520 ####[facility] [address] [place], [place], [id number] Comprehensive Metabolic Prof dcon 12-07-2024 Albumin [Mass/Vol] 3.9 g/dL Normal 3.4-4.8 [facility] Comment on above: Performed By: #### L 501.5200, L501.2300, L100.0100, L501.4700, L500.4050, L300.3900, L501.9520 ####[facility] [address] [place], [place], [phone] Albumin/Globulin [Mass ratio] 1.6 {ratio} Normal 0.9-2.4 [facility] Comment on above: Performed By: #### L 501.5200, L501.2300, L100.0100, L501.4700, L500.4050, L300.3900, L501.9520 ####[facility] [address] [place], [address] ALK PHOS 66 U/L Normal 35-104 [facility] Comment on above: Performed By: #### L 501.5200, L501.2300, L100.0100, L501.4700, L500.4050, L300.3900, L501.9520 ####[facility] [address] [place], [address] ALT [Catalytic activity/Vol] 17 U/L Normal <=34 [facility] Comment on above: Performed By: #### L 501.5200, L501.2300, L100.0100, L501.4700, L500.4050, L300.3900, L501.9520 ####[facility] [address] [place], [address] AST [Catalytic activity/Vol] 33 U/L High <=31 [facility] Comment on above: Performed By: #### L 501.5200, L501.2300, L100.0100, L501.4700, L500.4050, L300.3900, L501.9520 ####[facility] [address] [place], [address] Bilirubin [Mass/Vol] 0.68 mg/dL Normal 0.00-1.30 [facility] Comment on above: Performed By: #### L 501.5200, L501.2300, L100.0100, L501.4700, L500.4050, L300.3900, L501.9520 ####[facility] [address] [place], [address] BUN/CRE 20.6 RATIO High 10-20 [facility] Comment on above: Performed By: #### L 501.5200, L501.2300, L100.0100, L501.4700, L500.4050, L300.3900, L501.9520 ####[facility] [address] [place], [address] Calcium [Mass/Vol] 9.3 mg/dL Normal 7.6-11.0 [facility] Comment on above: Performed By: #### L 501.5200, L501.2300, L100.0100, L501.4700, L500.4050, L300.3900, L501.9520 ####[facility] [address] [place], [address] Chloride [Moles/Vol] 97 mmol/L Low 98-108 [facility] Comment on above: Performed By: #### L 501.5200, L501.2300, L100.0100, L501.4700, L500.4050, L300.3900, L501.9520 ####[facility] [address] [place], [address] CO2 [Moles/Vol] 21.9 mmol/L Normal 21.0-32.0 [facility] Comment on above: Performed By: #### L 501.5200, L501.2300, L100.0100, L501.4700, L500.4050, L300.3900, L501.9520 ####[facility] [address] [place], [address] Creatinine [Mass/Vol] 0.93 mg/dL Normal 0.70-1.20 [facility] Comment on above: Performed By: #### L 501.5200, L501.2300, L100.0100, L501.4700, L500.4050, L300.3900, L501.9520 ####[facility] [address] [place], [address] ECRCL 50.58 ml/min Normal 50-250 [facility] Comment on above: Performed By: #### L 501.5200, L501.2300, L100.0100, L501.4700, L500.4050, L300.3900, L501.9520 ####[facility] [address] [place], [address] GAP 13 Normal 5-15 [facility] Comment on above: Performed By: #### L 501.5200, L501.2300, L100.0100, L501.4700, L500.4050, L300.3900, L501.9520 ####[facility] [address] [place], [address] GFR/1.73 sq M.predicted among non-blacks MDRD (S/P/Bld) [Vol rate/Area] 62 mL/min/{1.73_m2} Normal >60 [facility] Comment on above: Result Comment: mL/m in/1.73m2 CKD-EPI Creatinine Equation (2020) Performed By: #### L 501.5200, L501.2300, L100.0100, L501.4700, L500.4050, L300.3900, L501.9520 ####[facility] [address] [place], [address] Globulin (S) [Mass/Vol] 2.5 g/dL Normal 2.2-4.2 [facility] Comment on above: Performed By: #### L 501.5200, L501.2300, L100.0100, L501.4700, L500.4050, L300.3900, L501.9520 ####[facility] [address] [place], [address] Glucose [Mass/Vol] 98 mg/dL Normal 70-99 [facility] Comment on above: Performed By: #### L 501.5200, L501.2300, L100.0100, L501.4700, L500.4050, L300.3900, L501.9520 ####[facility] [address] [place], [address] Potassium [Moles/Vol] 4.2 mmol/L Normal 3.3-5.1 [facility] Comment on above: Result Comment: Hemo lysis present, Results??could be affected.?? Performed By: #### L 501.5200, L501.2300, L100.0100, L501.4700, L500.4050, L300.3900, L501.9520 ####[facility] [address] [place], [address] Sodium [Moles/Vol] 132 mmol/L Low 133-145 [facility] Comment on above: Performed By: #### L 501.5200, L501.2300, L100.0100, L501.4700, L500.4050, L300.3900, L501.9520 ####[facility] [address] [place], [address] T PROT 6.3 g/dL Normal 5.9-8.4 [facility] Comment on above: Performed By: #### L 501.5200, L501.2300, L100.0100, L501.4700, L500.4050, L300.3900, L501.9520 ####[facility] [address] [place], [address] Urea nitrogen [Mass/Vol] 19 mg/dL Normal 4-19 [facility] Comment on above: Performed By: #### L 501.5200, L501.2300, L100.0100, L501.4700, L500.4050, L300.3900, L501.9520 ####[facility] [address] [place], [address] Consultation - Cardiologyon 12-07-2024 Consultation - Cardiology Normal [facility] Consultation - Orthopedicson 12-07-2024 Consultation - Orthopedics Normal [facility] International normalized rat io (INR) calculationOrdered By: Sandro Jackman on 12-07-2024 INR Coag (Bld) [Relative time] 1.0 {INR} [facility] Laboratory - Chemistry and C hemistry - challengeOrdered By: Sandro Jackman on 12-07-2024 AST [Catalytic activity/Vol] 33 U/L High <32 [facility] Magnesiumon 12-07-2024 Magnesium [Mass/Vol] 2.0 mg/dL Normal 1.5-2.2 [facility] Comment on above: Performed By: #### L 501.5200, L501.2300, L100.0100, L501.4700, L500.4050, L300.3900, L501.9520 ####[facility] [address] [place], [place], [id number] Magnesium (Unsp spec) [Mass/ Vol]Ordered By: Sandro Jackman on 12-07-2024 Magnesium [Mass/Vol] 2.0 mg/dL 1.5-2.2 [facility] Phosphoruson 12-07-2024 Phosphate [Mass/Vol] 4.2 mg/dL Normal 2.7-4.5 [facility] Comment on above: Performed By: #### L 501.5200, L501.2300, L100.0100, L501.4700, L500.4050, L300.3900, L501.9520 ####[facility] [address] [place], [place], [address] Prothrombin Time w/INRon INR Coag (PPP) [Relative time] 1.0 {INR} Normal [facility] Comment on above: Performed By: #### L 501.5200, L501.2300, L100.0100, L501.4700, L500.4050, L300.3900, L501.9520 ####[facility] [address] [place], [place], [id number] PT Coag (PPP) [Time] 13.0 s Normal 11.7-14.9 [facility] Comment on above: Performed By: #### L 501.5200, L501.2300, L100.0100, L501.4700, L500.4050, L300.3900, L501.9520 ####[facility] [address] [place], [address] Prothrombin timeOrdered By: Sandro Jackman on 12-07-2024 PT Coag (PPP) [Time] 13.0 s 11.7-14.9 [facility] Serum globulin measurementOr dered By: Sandro Jackman on 12-07-2024 Globulin (S) [Mass/Vol] 2.5 g/dL 2.2-4.2 [facility] Serum or plasma alanine simeon otransferase (ALT) measurementOrdered By: Sandro Jackman on 12-07-2024 ALT [Catalytic activity/Vol] 17 U/L <35 [facility] Serum or plasma albumin cindy urement (mass/volume)Ordered By: Sandro Jackman on 12-07-2024 Albumin [Mass/Vol] 3.9 g/dL 3.4-4.8 [facility] Serum or plasma albumin/glob ulin mass ratioOrdered By: Sandro Jackman on 12-07-2024 Albumin/Globulin [Mass ratio] 1.6 {ratio} 0.9-2.4 [facility] [facility] Serum or plasma alkaline avani sphatase measurementOrdered By: Sandro Jackman on 12-07-2024 ALP [Catalytic activity/Vol] 66 U/L 35-104 [facility] Serum phosphorus measurement Ordered By: Sandro Jackman on 12-07-2024 Phosphorus Level 4.2 mg/dL 2.7-4.5 [facility] TSH DL <= 0.005 mIU/L QnOrde red By: Sandro Jackman on 12-07-2024 Thyroid Stimulating Hormone (TSH) 1.180 uIU/mL 0.300-4.200 [facility] Thyroid Stim Hormone (TSH)on 12-07-2024 TSH 1.180 uIU/mL Normal 0.300-4.200 [facility] Comment on above: Performed By: #### L 501.5200, L501.2300, L100.0100, L501.4700, L500.4050, L300.3900, L501.9520 ####[facility] [address] [place], [address] Total proteinOrdered By: Shivani Jackman on 12-07-2024 Protein [Mass/Vol] 6.3 g/dL 5.9-8.4 [facility] 12 Lead EKGon 12-06-2024 12 Lead EKG Normal [facility] Absolute neutrophil countOrd ered By: Rita Nowak on 12-06-2024 Neutrophils (Bld) [#/Vol] 9.9 10*3/uL High 2.0-7.7 [facility] Anion gap in Serum or Plasma Ordered By: Rita Nowak on 12-06-2024 Anion gap [Moles/Vol] 14 mmol/L 02-05 [facility] BUN/creatinine ratioOrdered By: Rita Nowak on 12-06-2024 Urea nitrogen/Creatinine [Mass ratio] 17.1 mg/mg - [facility] Basic Metabolic Profile (BMP )on 12-06-2024 BUN/CRE 17.1 RATIO Normal 07-13 [facility] Comment on above: Performed By: #### L 500.2500, L100.0100 ####[facility] [address] [place], [address] Calcium [Mass/Vol] 9.5 mg/dL Normal 7.6-11.0 [facility] Comment on above: Performed By: #### L 500.2500, L100.0100 ####[facility] [address] [place], [address] Chloride [Moles/Vol] 97 mmol/L Low 98-108 [facility] Comment on above: Performed By: #### L 500.2500, L100.0100 ####[facility] [address] [place], [address] CO2 [Moles/Vol] 23.1 mmol/L Normal 21.0-32.0 [facility] Comment on above: Performed By: #### L 500.2500, L100.0100 ####[facility] [address] [place], [address] Creatinine [Mass/Vol] 0.96 mg/dL Normal 0.70-1.20 [facility] Comment on above: Performed By: #### L 500.2500, L100.0100 ####[facility] [address] [place], [address] ECRCL 51.06 ml/min Normal 50-250 [facility] Comment on above: Performed By: #### L 500.2500, L100.0100 ####[facility] [address] [place], [address] GAP 14 Normal 5-15 [facility] Comment on above: Performed By: #### L 500.2500, L100.0100 ####[facility] [address] [place], [address] GFR/1.73 sq M.predicted among non-blacks MDRD (S/P/Bld) [Vol rate/Area] 60 mL/min/{1.73_m2} Normal >60 [facility] Comment on above: Result Comment: mL/m in/1.73m2 CKD-EPI Creatinine Equation (2020) Performed By: #### L 500.2500, L100.0100 ####[facility] [address] [place], [address] Glucose [Mass/Vol] 127 mg/dL High 70-99 [facility] Comment on above: Performed By: #### L 500.2500, L100.0100 ####[facility] [address] [place], [address] Potassium [Moles/Vol] 4.3 mmol/L Normal 3.3-5.1 [facility] Comment on above: Performed By: #### L 500.2500, L100.0100 ####[facility] [address] [place], [address] Sodium [Moles/Vol] 134 mmol/L Normal 133-145 [facility] Comment on above: Performed By: #### L 500.2500, L100.0100 ####[facility] [address] [place], [address] Urea nitrogen [Mass/Vol] 16 mg/dL Normal 4-19 [facility] Comment on above: Performed By: #### L 500.2500, L100.0100 ####[facility] [address] [place], [address] Basophil percentageOrdered B y: Rita Magdalenowadekatie on 12-06-2024 Basophils/100 WBC (Bld) 0.3 % 0-1 [facility] Brain/Head without Contrasto n 12-06-2024 Brain/Head without Contrast Normal [facility] CBC W/Diff, Automatedon 11-22 Absolute Lymph 0.99 X10 3/uL Normal 0.83-4.51 [facility] Comment on above: Performed By: #### L 500.2500, L100.0100 ####[facility] [address] [place], [address] Absolute Neut 9.9 X10 3/uL High 2.0-7.7 [facility] Comment on above: Performed By: #### L 500.2500, L100.0100 ####[facility] [address] [place], [address] Basophils/100 WBC (Bld) 0.3 % Normal 0-1 [facility] Comment on above: Performed By: #### L 500.2500, L100.0100 ####[facility] [address] [place], [address] Eosinophils/100 WBC (Bld) 1.3 % Normal 0-5 [facility] Comment on above: Performed By: #### L 500.2500, L100.0100 ####[facility] [address] [place], [address] Erythrocyte distribution width (RBC) [Ratio] 12.9 % Normal 11.6-14.6 [facility] Comment on above: Performed By: #### L 500.2500, L100.0100 ####[facility] [address] [place], [address] Hematocrit (Bld) [Volume fraction] 40.5 % Normal 37-47 [facility] Comment on above: Performed By: #### L 500.2500, L100.0100 ####[facility] [address] [place], [address] Hemoglobin (Bld) [Mass/Vol] 13.6 g/dL Normal 12.0-15.0 [facility] Comment on above: Performed By: #### L 500.2500, L100.0100 ####[facility] [address] [place], [address] IG% 0.500 Normal 0.0-0.9 [facility] Comment on above: Result Comment: IG% - Immature Granulocytes (promyelocytes, myelocytes andmetamyelocytes) > 1% indicates that a LEFT SHIFT is Present. Performed By: #### L 500.2500, L100.0100 ####[facility] [address] [place], [address] Lymphocytes/100 WBC (Bld) 8.6 % Low 19-41 [facility] Comment on above: Performed By: #### L 500.2500, L100.0100 ####[facility] [address] [place], [address] MCH (RBC) [Entitic mass] 29.4 pg Normal 27.0-32.0 [facility] Comment on above: Performed By: #### L 500.2500, L100.0100 ####[facility] [address] [place], [address] MCHC (RBC) [Mass/Vol] 33.6 g/dL Normal 32-36 [facility] Comment on above: Performed By: #### L 500.2500, L100.0100 ####[facility] [address] [place], [address] MCV (RBC) [Entitic vol] 87.7 fL Normal 81-99 [facility] Comment on above: Performed By: #### L 500.2500, L100.0100 ####[facility] [address] [place], [address] Monocytes/100 WBC (Bld) 4.0 % Normal 0-10 [facility] Comment on above: Performed By: #### L 500.2500, L100.0100 ####[facility] [address] [place], [address] Neutrophils/100 WBC (Bld) 85.3 % High 47-70 [facility] Comment on above: Performed By: #### L 500.2500, L100.0100 ####[facility] [address] [place], [address] Nucleated RBC (Bld) [#/Vol] 0 10*3/uL Normal 0-5 [facility] Comment on above: Performed By: #### L 500.2500, L100.0100 ####[facility] [address] [place], [address] Platelet mean volume (Bld) [Entitic vol] 9.2 fL Normal 6.2-12.0 [facility] Comment on above: Performed By: #### L 500.2500, L100.0100 ####[facility] [address] [place], [address] Platelets (Bld) [#/Vol] 279 10*3/uL Normal 150-450 [facility] Comment on above: Performed By: #### L 500.2500, L100.0100 ####[facility] [address] [place], [address] RBC (Bld) [#/Vol] 4.62 10*6/uL Normal 4.2-5.4 [facility] Comment on above: Performed By: #### L 500.2500, L100.0100 ####[facility] [address] [place], [address] RDW SD 41.1 fl Normal 35.1-43.9 [facility] Comment on above: Performed By: #### L 500.2500, L100.0100 ####[facility] [address] [place], [address] WBC (Bld) [#/Vol] 11.6 10*3/uL High 4.4-11.0 [facility] Comment on above: Performed By: #### L 500.2500, L100.0100 ####[facility] [address] [place], [address] Carbon dioxide, total [Moles /volume] in Central venous bloodOrdered By: Rita Nowak on 12-06-2024 CO2 [Moles/Vol] 23.1 mmol/L 21.0-32.0 [facility] Chest 1 View (Portable)on Chest 1 View (Portable) Normal [facility] Chloride assayOrdered By: Roselyn Nowak on 12-06-2024 Chloride [Moles/Vol] 97 mmol/L Low 98-108 [facility] Emergency Department Summary on 12-06-2024 Emergency Department Summary Normal [facility] Eosinophil percentageOrdered By: Rita Nowak on 12-06-2024 Eosinophils/100 WBC (Bld) 1.3 % 0-5 [facility] Erythrocyte distribution wid th ratioOrdered By: Rita Nowak on 12-06-2024 Erythrocyte distribution width (RBC) [Ratio] 12.9 % 11.6-14.6 [facility] Erythrocyte distribution wid th standard deviationOrdered By: Rita Nowak on 12-06-2024 Erythrocyte distribution width (RBC) [Entitic vol] 41.1 fL 35.1-43.9 [facility] Estimation of creatinine clemencia aranceOrdered By: Rita Nowak on 12-06-2024 Estimated Creatinine Clearance Calc 51.06 ml/min 50-250 [facility] GFR/1.73 sq M.predicted stephen g non-blacks MDRD (S/P/Bld) [Vol rate/Area]Ordered By: Rita Nowak on 12-06-2024 Estimated GFR (MDRD) Non-Af Amer 60 >60 [facility] Comment on above: mL/min/1.73m2 CKD-EP I Creatinine Equation (2020) H AND P Exam - Hospitaliston 12-06-2024 H&P Exam - Hospitalist Normal [facility] Hematocrit Auto (Bld) [Volum e fraction]Ordered By: Rita Nowak on 12-06-2024 Hematocrit (Bld) [Volume fraction] 40.5 % 37-47 [facility] Hemoglobin measurementOrdere d By: Rita Nowak on 12-06-2024 Hemoglobin (Bld) [Mass/Vol] 13.6 g/dL 12.0-15.0 [facility] Immature granulocytes/100 WB C Auto (Bld)Ordered By: Rita Nowak on 12-06-2024 Immature granulocytes/100 WBC (Bld) 0.500 % 0.0-0.9 [facility] Comment on above: IG% - Immature Granu locytes (promyelocytes, myelocytes and metamyelocytes) > 1% indicates that a LEFT SHIFT is Present. Knee 1 or 2 Viewson 12-07-19 25 Knee 1 or 2 Views Normal [facility] L499.0042on 12-06-2024 Trop T High Sen 184 ng/L Invalid Interpretation Code <=14 [facility] Comment on above: Result Comment: Crit ical Result(s) Called at 12/06/2024-21:15 by Ga Chamberlain??Results read back by same. Performed By: #### L 499.0042 ####[facility] [address] [place], [address] Trop T High Sen 178 ng/L Invalid Interpretation Code <=14 [facility] Comment on above: Result Comment: Crit ical Result(s) Called at 12/06/2024-20:01 by Ga Ortiz??Results read back by same. Performed By: #### L 499.0042 ####[facility] [address] [place], [address] L499.0043on 12-06-2024 Trop T High Sen Normal <=14 [facility] Comment on above: Result Comment: Canc elled via OM: Ordered Performed By: #### L 499.0043 ####[facility] [address] [place], [address] Trop T High Sen Normal <=14 [facility] Comment on above: Result Comment: OKAY TO CANCEL PER WALLY VEGA PCU CHARGE Performed By: #### L 499.0043 ####[facility] [address] [place], [address] L501.4021on 12-06-2024 Trop T High Sen 108 ng/L Invalid Interpretation Code <=14 [facility] Comment on above: Result Comment: Crit ical Result(s) Called at 12/06/2024-17:35 by Ga Pena??Results read back by same. Performed By: #### L 501.4021 ####[facility] [address] [place], [address] Lymphocytes Auto (Unsp spec) [#/Vol]Ordered By: Rtia Nowak on 12-06-2024 Lymphocytes (Bld) [#/Vol] 0.99 10*3/uL 0.83-4.51 [facility] Lymphocytes/100 WBC Auto (Un sp spec)Ordered By: Rita Nowak on 12-06-2024 Lymphocytes/100 WBC (Bld) 8.6 % Low 19-41 [facility] MCV (mean corpuscular volume ) determinationOrdered By: Rita Nowak on 12-06-2024 MCV (RBC) [Entitic vol] 87.7 fL 81-99 [facility] Mean corpuscular hemoglobin (MCH) determinationOrdered By: Rita Nowak on 12-06-2024 MCH (RBC) [Entitic mass] 29.4 pg 27.0-32.0 [facility] Mean corpuscular hemoglobin concentration (MCHC) determinationOrdered By: Rita Nowak on 12-06-2024 MCHC (RBC) [Mass/Vol] 33.6 g/dL 32-36 [facility] Mean platelet volume determi nationOrdered By: Rita Nowak on 12-06-2024 Platelet mean volume (Bld) [Entitic vol] 9.2 fL 6.2-12.0 [facility] Monocyte percentageOrdered B y: Rita Nowak on 12-06-2024 Monocytes/100 WBC (Bld) 4.0 % 0-10 [facility] Neutrophil percentageOrdered By: Rita Nowak on 12-06-2024 Neutrophils/100 WBC (Bld) 85.3 % High 47-70 [facility] No Panel InformationOrdered By: Rita Nowak on 12-06-2024 Troponin T High Sensitivity 108 ng/L High <14 [facility] Comment on above: Critical Result(s) C alled at 12/06/2024-17:35 by Ga Pate to Nabila Pena Results read back by same. Nucleated red blood cell per centageOrdered By: Rita Nowak on 12-06-2024 Nucleated RBC/100 WBC (Bld) [Ratio] 0 % 0-5 [facility] Platelet countOrdered By: Roselyn Nowak on 12-06-2024 Platelets (Bld) [#/Vol] 279 10*3/uL 150-450 [facility] Potassium (Unsp spec) [Mass/ Vol]Ordered By: Rita Nowak on 12-06-2024 Potassium [Moles/Vol] 4.3 mmol/L 3.3-5.1 [facility] RBC Auto (Bld) [#/Vol]Ordere d By: Rita Nowak on 12-06-2024 RBC (Bld) [#/Vol] 4.62 10*6/uL 4.2-5.4 [facility] Serum creatinine measurement (mass/volume)Ordered By: Rita Nowak on 12-06-2024 Creatinine [Mass/Vol] 0.96 mg/dL 0.70-1.20 [facility] Serum glucose measurement (m ass/volume)Ordered By: Rita Nowak on 12-06-2024 Glucose [Mass/Vol] 127 mg/dL High 70-99 [facility] Serum or plasma calcium cindy urement (mass/volume)Ordered By: Rita Nowak on 12-06-2024 Calcium [Mass/Vol] 9.5 mg/dL 7.6-11.0 [facility] Serum or plasma urea nitroge n measurement (mass/volume)Ordered By: Rita Nowak on 12-06-2024 Urea nitrogen [Mass/Vol] 16 mg/dL 4-19 [facility] Sinus/Facial Boneon 12-07-19 25 Sinus/Facial Bone Normal [facility] Sodium levelOrdered By: Rita Nowak on 12-06-2024 Sodium [Moles/Vol] 134 mmol/L 133-145 [facility] Spine Cervical without Contr ason 12-06-2024 Spine Cervical without Contras Normal [facility] Troponin T.cardiac High sens itivity method [Mass/Vol]Ordered By: Rita Nowak on 12-06-2024 Troponin T High Sensitivity 2 Hour 184 ng/L High <14 [facility] Comment on above: Critical Result(s) C alled at 12/06/2024-21:15 by Ga Pate to Sunni Chamberlain Results read back by same. White blood cell (WBC) count Ordered By: Rita Nowak on 12-06-2024 WBC (Bld) [#/Vol] 11.6 10*3/uL High 4.4-11.0 [facility] Cardiology Visit Reporton Cardiology Visit Report Normal [facility] .Auto Diffon 10-29-2024 Basophil, Absolute 0.0 10 3/mcL Normal 0.0-0.2 [facility] Comment on above: Performed By: #### T SHR, CBC, CMP, ADIFF, GFR, ANEU, FT4 #### [address] [address] Basophils/100 WBC (Bld) 0.6 % Normal 0.0-2.5 [facility] Comment on above: Performed By: #### T SHR, CBC, CMP, ADIFF, GFR, ANEU, FT4 #### [address] [address] Eosinophil, Absolute 0.2 10 3/mcL Normal 0.0-0.7 [facility] Comment on above: Performed By: #### T SHR, CBC, CMP, ADIFF, GFR, ANEU, FT4 #### [address] [address] Eosinophils/100 WBC (Bld) 2.6 % Normal 0.0-7.0 [facility] Comment on above: Performed By: #### T SHR, CBC, CMP, ADIFF, GFR, ANEU, FT4 #### [address] [address] Lymphocyte, Absolute 1.3 10 3/mcL Normal 0.9-4.3 [facility] Comment on above: Performed By: #### T SHR, CBC, CMP, ADIFF, GFR, ANEU, FT4 #### [address] [address] Lymphocytes/100 WBC (Bld) 21.2 % Normal 20.0-40.0 [facility] Comment on above: Performed By: #### T SHR, CBC, CMP, ADIFF, GFR, ANEU, FT4 #### [address] [address] Monocyte, Absolute 0.5 10 3/mcL Normal 0.1-1.4 [facility] Comment on above: Performed By: #### T SHR, CBC, CMP, ADIFF, GFR, ANEU, FT4 #### [address] [address] Monocytes/100 WBC (Bld) 7.5 % Normal 2.0-13.0 [facility] Comment on above: Performed By: #### T SHR, CBC, CMP, ADIFF, GFR, ANEU, FT4 #### [address] [address] Neutrophils/100 WBC (Bld) 68.1 % Normal 50.0-75.0 [facility] Comment on above: Performed By: #### T SHR, CBC, CMP, ADIFF, GFR, ANEU, FT4 #### [address] [address] .GFRon 10-29-2024 Estimated Glomerular Filtration Rate 53 ml/min/1.73sqm Normal [facility] Comment on above: Result Comment: Stages of Chronic Kidney Disease (CKD) Stage Description eGFR(ml/min/1.73 sq.m.) CKD 1 Normal kidney function or >=90 normal kindney function with possible kidney damage (ex. Proteinuria) CKD 2 Kidney damage with mild loss 60-89 of kidney function CKD 3a Mild to moderate loss of kidney 45-59 function CKD 3b Moderate to severe loss of 30-44 of kindey function CKD 4 Severe loss of kidney function 15-29 CKD 5 Kidney failure <15 Note: (go live 2024) the eGFR calculation was updated to the 2020 CKD-EPI creatinine equation without a race factor to calculate the eGFR results. Performed By: #### V IDH, LIPID, CMP, GFR, TSH #### [address] [address] #### B12 #### [address] [address] .NEUABSon 10-29-2024 Neutrophil, Absolute 4.3 10 3/mcL Normal 2.3-8.1 [facility] Comment on above: Performed By: #### T SHR, CBC, CMP, ADIFF, GFR, ANEU, FT4 #### [place] [address] [place], [place] [address] CBCon 10-29-2024 Erythrocyte distribution width (RBC) [Ratio] 13.8 % Normal 11.5-15.5 [facility] Comment on above: Performed By: #### T SHR, CBC, CMP, ADIFF, GFR, ANEU, FT4 #### [address] [address] Hematocrit (Bld) [Volume fraction] 41.6 % Normal 34.0-46.0 [facility] Comment on above: Performed By: #### T SHR, CBC, CMP, ADIFF, GFR, ANEU, FT4 #### [address] [address] Hgb 13.8 G/dL Normal 12.0-16.0 [facility] Comment on above: Performed By: #### T SHR, CBC, CMP, ADIFF, GFR, ANEU, FT4 #### [address] [address] MCH (RBC) [Entitic mass] 29.1 pg Normal 27.0-33.0 [facility] Comment on above: Performed By: #### T SHR, CBC, CMP, ADIFF, GFR, ANEU, FT4 #### [address] [address] MCHC 33.3 G/dL Normal 32.0-36.0 [facility] Comment on above: Performed By: #### T SHR, CBC, CMP, ADIFF, GFR, ANEU, FT4 #### [address] [address] MCV (RBC) [Entitic vol] 87.3 fL Normal 80.0-99.0 [facility] Comment on above: Performed By: #### T SHR, CBC, CMP, ADIFF, GFR, ANEU, FT4 #### [address] [address] Platelet 283 10 3/mcL Normal 150-450 [facility] Comment on above: Performed By: #### T SHR, CBC, CMP, ADIFF, GFR, ANEU, FT4 #### [place] [id number] Platelet mean volume (Bld) [Entitic vol] 7.6 fL Normal 6.6-10.5 [facility] Comment on above: Performed By: #### T SHR, CBC, CMP, ADIFF, GFR, ANEU, FT4 #### [address] [address] RBC 4.76 10 6/mcL Normal 4.10-5.30 [facility] Comment on above: Performed By: #### T SHR, CBC, CMP, ADIFF, GFR, ANEU, FT4 #### [address] [address] WBC 6.3 10 3/mcL Normal 4.5-10.8 [facility] Comment on above: Performed By: #### T SHR, CBC, CMP, ADIFF, GFR, ANEU, FT4 #### [address] [address] CMPon 10-29-2024 Albumin Level 4.5 G/dL Normal 3.4-4.8 [facility] Comment on above: Performed By: #### V IDH, LIPID, CMP, GFR, TSH #### [place] [address] #### B12 #### [address] [address] Albumin/Globulin [Mass ratio] 1.5 {ratio} Normal 1.1-2.5 [facility] Comment on above: Performed By: #### V IDH, LIPID, CMP, GFR, TSH #### [address] [address] #### B12 #### [address] [address] ALP [Catalytic activity/Vol] 81 U/L Normal 40-135 [facility] Comment on above: Performed By: #### V IDH, LIPID, CMP, GFR, TSH #### [place] [address] #### B12 #### [address] [address] ALT [Catalytic activity/Vol] 22 U/L Normal 14-59 [facility] Comment on above: Performed By: #### V IDH, LIPID, CMP, GFR, TSH #### [place] [address] #### B12 #### [address] [address] AST [Catalytic activity/Vol] 21 U/L Normal 10-40 [facility] Comment on above: Performed By: #### V IDH, LIPID, CMP, GFR, TSH #### [place] [address] #### B12 #### [address] [address] Bili Total 0.5 mg/dL Normal 0.2-1.0 [facility] Comment on above: Result Comment: Use of this assay is not recommended for patients undergoing treatment with eltrombopag due to the potential for falsely elevated results. Performed By: #### V IDH, LIPID, CMP, GFR, TSH #### [place] [address] #### B12 #### [address] [address] BUN/Creatinine Ratio 15 ratio Normal 7-27 [facility] Comment on above: Performed By: #### V IDH, LIPID, CMP, GFR, TSH #### [place] [address] #### B12 #### [address] [address] Calcium [Mass/Vol] 10.2 mg/dL Normal 8.4-10.2 [facility] Comment on above: Performed By: #### V IDH, LIPID, CMP, GFR, TSH #### [place] [address] #### B12 #### [address] [address] Chloride [Moles/Vol] 100 mmol/L Normal 98-107 [facility] Comment on above: Performed By: #### V IDH, LIPID, CMP, GFR, TSH #### [address] [address] #### B12 #### [address] [address] CO2 [Moles/Vol] 31 mmol/L Normal 23-31 [facility] Comment on above: Performed By: #### V IDH, LIPID, CMP, GFR, TSH #### [address] [address] #### B12 #### [address] [address] Creatinine [Mass/Vol] 1.06 mg/dL High 0.55-1.02 [facility] Comment on above: Result Comment: Test ing performed on Siemens Dimension EXL analyzer using a modified kinetic Jana technique. Performed By: #### V IDH, LIPID, CMP, GFR, TSH #### [place] [address] #### B12 #### [address] [address] Electrolyte Balance 6.0 mEq/L Normal 4.0-15.0 [facility] Comment on above: Performed By: #### V IDH, LIPID, CMP, GFR, TSH #### [place] [address] #### B12 #### [address] [address] Globulin 3.0 G/dL Normal 1.5-3.8 [facility] Comment on above: Performed By: #### V IDH, LIPID, CMP, GFR, TSH #### [place] [address] #### B12 #### [address] [address] Glucose [Mass/Vol] 93 mg/dL Normal 83-110 [facility] Comment on above: Performed By: #### V IDH, LIPID, CMP, GFR, TSH #### [address] [address] #### B12 #### [address] [address] Potassium [Moles/Vol] 4.9 mmol/L Normal 3.5-5.1 [facility] Comment on above: Performed By: #### V IDH, LIPID, CMP, GFR, TSH #### [place] [address] #### B12 #### [place] [address] Sodium [Moles/Vol] 137 mmol/L Normal 136-145 [facility] Comment on above: Performed By: #### V IDH, LIPID, CMP, GFR, TSH #### [place] [address] #### B12 #### [place] [address] Total Protein 7.5 G/dL Normal 6.4-8.2 [facility] Comment on above: Performed By: #### V IDH, LIPID, CMP, GFR, TSH #### [place] [address] #### B12 #### [place] [address] Urea nitrogen [Mass/Vol] 16 mg/dL Normal 7-18 [facility] Comment on above: Performed By: #### V IDH, LIPID, CMP, GFR, TSH #### [place] [address] #### B12 #### [place] [address] FT4on 10-29-2024 Free T4 [Mass/Vol] 1.25 ng/dL Normal 0.76-1.46 [facility] Comment on above: Order Comment: Order ed by Discern Performed By: #### V IDH, LIPID, CMP, GFR, TSH #### [place] [address] #### B12 #### [place] [address] LABORATORYOrdered By: SYSTEM SYSTEM on 10-29-2024 Albumin BCP dye [Mass/Vol] 4.5 G/dL Normal 3.4 - 4.8 G/dL AO ADM SS Albumin/Globulin [Mass ratio] 1.5 {ratio} Normal 1.1 - 2.5 ratio AO ADM SS ALP [Catalytic activity/Vol] 81 U/L Normal 40 - 135 U/L AO ADM SS ALT With P-5'-P [Catalytic activity/Vol] 22 U/L Normal 14 - 59 U/L AO ADM SS AST With P-5'-P [Catalytic activity/Vol] 21 U/L Normal 10 - 40 U/L AO ADM SS Basophils (Bld) [#/Vol] 0.0 103/mcL Normal 0.0 - 0.2 10^3/mcL AO Workflow SS Basophils/100 WBC (Bld) 0.6 % Normal 0.0 - 2.5 % AO Workflow SS Bilirubin [Mass/Vol] 0.5 mg/dL Normal 0.2 - 1 .0 mg/dL AO ADM SS Comment on above: Interpretive Data: U se of this assay is not recommended for patients undergoing treatment with eltrombopag due to the potential for falsely elevated results. Calcium [Mass/Vol] 10.2 mg/dL Normal 8.4 - 10. 2 mg/dL AO ADM SS Chloride [Moles/Vol] 100 mmol/L Normal 98 - 10 7 mmol/L AO ADM SS CO2 [Moles/Vol] 31 mmol/L Normal 23 - 31 mmol/L AO ADM SS Creatinine [Mass/Vol] 1.06 mg/dL High 0.55 - 1.02 mg/dL AO ADM SS Comment on above: Interpretive Data: T esting performed on Siemens Dimension EXL analyzer using a modified kinetic Jana technique. Electrolyte Balance 6.0 mEq/L Normal 4.0 - 15 .0 mEq/L AO ADM SS Eosinophil, Absolute 0.2 103/mcL Normal 0.0 - 0 .7 10^3/mcL AO Workflow SS Eosinophils/100 WBC (Bld) 2.6 % Normal 0.0 - 7.0 % AO Workflow SS Erythrocyte distribution width (RBC) [Ratio] 13.8 % Normal 11.5 - 15.5 % AO Workflow SS Estimated Glomerular Filtration Rate 53 ml/min/1.73sqm Invalid Interpretation Code AO Chemistry S Comment on above: Interpretive Data: Stages of Chronic Kidney Disease (CKD) Stage Description eGFR(ml/min/1.73 sq.m.) CKD 1 Normal kidney function or >=90 normal kindney function with possible kidney damage (ex. Proteinuria) CKD 2 Kidney damage with mild loss 60-89 of kidney function CKD 3a Mild to moderate loss of kidney 45-59 function CKD 3b Moderate to severe loss of 30-44 of kindey function CKD 4 Severe loss of kidney function 15-29 CKD 5 Kidney failure <15 Note: (go live 2024) the eGFR calculation was updated to the 2020 CKD-EPI creatinine equation without a race factor to calculate the eGFR results. Free T4 [Mass/Vol] 1.25 ng/dL Normal 0.76 - 1. 46 ng/dL AO ADM SS Globulin 3.0 G/dL Normal 1.5 - 3.8 G/dL AO ADM SS Glucose [Mass/Vol] 93 mg/dL Normal 83 - 110 mg/dL AO ADM SS Hematocrit (Bld) [Volume fraction] 41.6 % Normal 34.0 - 46.0 % AO Workflow SS Hemoglobin (Bld) [Mass/Vol] 13.8 G/dL Normal 12.0 - 16.0 G/dL AO Workflow SS Lymphocytes (Bld) [#/Vol] 1.3 103/mcL Normal 0.9 - 4.3 10^3/mcL AO Workflow SS Lymphocytes/100 WBC (Bld) 21.2 % Normal 20.0 - 40.0 % AO Workflow SS MCH (RBC) [Entitic mass] 29.1 pg Normal 27. 0 - 33.0 pg AO Workflow SS MCHC 33.3 G/dL Normal 32.0 - 36.0 G/dL AO Workflow SS MCV (RBC) [Entitic vol] 87.3 fL Normal 80.0 - 99.0 fL AO Workflow SS Monocytes (Bld) [#/Vol] 0.5 103/mcL Normal 0.1 - 1.4 10^3/mcL AO Workflow SS Monocytes/100 WBC (Bld) 7.5 % Normal 2.0 - 13.0 % AO Workflow SS Neutrophils (Bld) [#/Vol] 4.3 103/mcL Normal 2.3 - 8.1 10^3/mcL AO Workflow SS Neutrophils/100 WBC (Bld) 68.1 % Normal 50.0 - 75.0 % AO Workflow SS Platelet mean volume (Bld) [Entitic vol] 7.6 fL Normal 6.6 - 10.5 fL AO Workflow SS Platelets (Bld) [#/Vol] 283 103/mcL Normal 150 - 450 10^3/mcL AO Workflow SS Potassium [Moles/Vol] 4.9 mmol/L Normal 3.5 - 5.1 mmol/L AO ADM SS Protein [Mass/Vol] 7.5 G/dL Normal 6.4 - 8.2 G/dL AO ADM SS RBC (Bld) [#/Vol] 4.76 106/mcL Normal 4.10 - 5.3 0 10^6/mcL AO Workflow SS Sodium [Moles/Vol] 137 mmol/L Normal 136 - 145 mmol/L AO ADM SS TSH Qn 0.18 m[IU]/L Low 0.36 - 3.74 mcIU/mL AO ADM SS Urea nitrogen [Mass/Vol] 16 mg/dL Normal 7 - 18 mg/dL AO ADM SS Urea nitrogen/Creatinine [Mass ratio] 15 ratio Normal 7 - 27 ratio AO ADM SS WBC (Bld) [#/Vol] 6.3 103/mcL Normal 4.5 - 10.8 10^3/mcL AO Workflow SS TSHRon 10-29-2024 TSH Qn 0.18 m[IU]/L Low 0.36-3.74 [facility] Comment on above: Performed By: #### V IDH, LIPID, CMP, GFR, TSH #### [facility] [address] [place], [place] [address] #### B12 #### [facility] [address] [place] [id number] Cardiology Visit Reporton Cardiology Visit Report Normal W [facility] BD BONE DENSITY DEXA AXIAL S [facility] 08-25-2024 BD BONE DENSITY DEXA AXIAL [facility] ORIGINAL EXAMINATION: BONE DENSITOMETRY 08/25/2024 3:33 pm TECHNIQUE: A bone density dual x-ray absorptiometry (DEXA) scan was performed of the axial (e.g. hips, spine) and/or appendicular (e.g. radius) skeleton as appropriate. COMPARISON: 08/23/2022. HISTORY: ORDERING SYSTEM PROVIDED HISTORY: Reason for Exam: Osteoporosis Screening FINDINGS: T Score Left Femoral Neck: -0.5 Left Femoral Neck: 0.797 (g/cm2) T Score Left Hip: -0.3 Left Hip: 0.910 (g/cm2) T Score Lumbar Spine: -0.7 Lumbar Spine: 0.973 (g/cmd2) BMD Change from previous Hip: -8.9 % BMD Change from previous Lumbar Spine: -8.2% IMPRESSION: Normal bone mineral density by WHO criteria. World Health Organization criteria: (Comparing with young normal sex matched population) - Normal: T-score at or above -1 SD (standard deviation) - Osteopenia: T-score between -1 and -2.5 SD - Osteoporosis: T-score at or below -2.5 SD The NOF recommends that FDA-approved medical therapies be considered in post-menopausal women and men age >/= 50 years with a: * Hip or vertebral fracture, or * T-score of /= 20% for major osteoporotic fractures or * >/= 3% for hip fractures All treatment decisions require clinical judgement and consideration of individual patient factors, including patient preferences, comorbidities, previous drug use, risk factors not captured in the FRAX registered model (e.g., frailty, falls, vitamin D deficiency, increased bone turnover, interval significant decline in bone density) and possible under- or over-estimation of fracture risk by FRAX. Interpreted by: Raghu Buchanan DO Preliminary Report By: Raghu Buchanan DO Electronically signed By Raghu Buchanan DO Dictated Date: 08/25/2024 3:39:09 PM Prelim Date: 08/25/2024 3:40:14 PM Sign Date: 08/25/2024 3:40:14 PM Ordering Provider: ARGELIA DARBY [facility] .GFRon 07-31-2024 GFR 65 ml/min/1.73sqm [facility] Comment on above: Result Comment: GFR Population mean for , Non- Americans Ages 20-29 = 116 mL/min/1.73 sq.m. Ages 30-39 = 107 mL/min/1.73 sq.m. Ages 40-49 = 99 mL/min/1.73 sq.m. Ages 50-59 = 93 mL/min/1.73 sq.m. Ages 60-69 = 85 mL/min/1.73 sq.m. Ages 70+ = 75 mL/min/1.73 sq.m. Chronic Kidney Disease: Less than 60 mL/min/1.73 square meters End Stage Renal Disease: Less than 15 mL/min/1.73 square meters Performed By: #### V IDH, LIPID, CMP, GFR, TSH #### [address] [address] #### B12 #### [address] [address] GFR Non- 53 ml/min/1.73sqm Normal [facility] Comment on above: Result Comment: GFR Population mean for , Non- Americans Ages 20-29 = 116 mL/min/1.73 sq.m. Ages 30-39 = 107 mL/min/1.73 sq.m. Ages 40-49 = 99 mL/min/1.73 sq.m. Ages 50-59 = 93 mL/min/1.73 sq.m. Ages 60-69 = 85 mL/min/1.73 sq.m. Ages 70+ = 75 mL/min/1.73 sq.m. Chronic Kidney Disease: Less than 60 mL/min/1.73 square meters End Stage Renal Disease: Less than 15 mL/min/1.73 square meters Performed By: #### V IDH, LIPID, CMP, GFR, TSH #### [place] [address] #### B12 #### [address] [address] B12on 07-31-2024 Cobalamin (Vitamin B12) [Mass/Vol] 431 pg/mL Normal 211-911 [facility] Comment on above: Performed By: #### V IDH, LIPID, CMP, GFR, TSH #### [address] [address] #### B12 #### [address] [address] CMPon 07-31-2024 Albumin Level 4.1 G/dL Normal 3.4-4.8 [facility] Comment on above: Performed By: #### V IDH, LIPID, CMP, GFR, TSH #### [address] [address] #### B12 #### [address] [address] Albumin/Globulin [Mass ratio] 1.5 {ratio} Normal 1.1-2.5 [facility] Comment on above: Performed By: #### V IDH, LIPID, CMP, GFR, TSH #### [address] [address] #### B12 #### [place] [address] ALP [Catalytic activity/Vol] 98 U/L Normal 40-135 [facility] Comment on above: Performed By: #### V IDH, LIPID, CMP, GFR, TSH #### [place] [address] #### B12 #### [place] [address] ALT [Catalytic activity/Vol] 26 U/L Normal 14-59 [facility] Comment on above: Performed By: #### V IDH, LIPID, CMP, GFR, TSH #### [place] [address] #### B12 #### [place] [address] AST [Catalytic activity/Vol] 18 U/L Normal 10-40 [facility] Comment on above: Performed By: #### V IDH, LIPID, CMP, GFR, TSH #### [place] [address] #### B12 #### [place] [address] Bili Total 0.4 mg/dL Normal 0.2-1.0 [facility] Comment on above: Result Comment: Use of this assay is not recommended for patients undergoing treatment with eltrombopag due to the potential for falsely elevated results. Performed By: #### V IDH, LIPID, CMP, GFR, TSH #### [place] [address] #### B12 #### [place] [address] BUN/Creatinine Ratio 21 ratio Normal 7-27 [facility] Comment on above: Performed By: #### V IDH, LIPID, CMP, GFR, TSH #### [address] [address] #### B12 #### [address] [address] Calcium [Mass/Vol] 9.6 mg/dL Normal 8.4-10.2 [facility] Comment on above: Performed By: #### V IDH, LIPID, CMP, GFR, TSH #### [place] [address] #### B12 #### [address] [address] Chloride [Moles/Vol] 101 mmol/L Normal 98-107 [facility] Comment on above: Performed By: #### V IDH, LIPID, CMP, GFR, TSH #### [place] [address] #### B12 #### [address] [address] CO2 [Moles/Vol] 29 mmol/L Normal 23-31 [facility] Comment on above: Performed By: #### V IDH, LIPID, CMP, GFR, TSH #### [place] [address] #### B12 #### [address] [address] Creatinine [Mass/Vol] 1.00 mg/dL Normal 0.55-1.02 [facility] Comment on above: Result Comment: Test ing performed on Siemens Dimension EXL analyzer using a modified kinetic Jana technique. Performed By: #### V IDH, LIPID, CMP, GFR, TSH #### [place] [address] #### B12 #### [address] [address] Electrolyte Balance 6.0 mEq/L Normal 4.0-15.0 [facility] Comment on above: Performed By: #### V IDH, LIPID, CMP, GFR, TSH #### [address] [address] #### B12 #### [address] [address] Globulin 2.8 G/dL Normal [facility] Comment on above: Performed By: #### V IDH, LIPID, CMP, GFR, TSH #### [address] [address] #### B12 #### [address] [address] Glucose [Mass/Vol] 107 mg/dL Normal 83-110 [facility] Comment on above: Performed By: #### V IDH, LIPID, CMP, GFR, TSH #### [address] [address] #### B12 #### [address] [address] Potassium [Moles/Vol] 4.9 mmol/L Normal 3.5-5.1 [facility] Comment on above: Performed By: #### V IDH, LIPID, CMP, GFR, TSH #### [address] [address] #### B12 #### [address] [address] Sodium [Moles/Vol] 136 mmol/L Normal 136-145 [facility] Comment on above: Performed By: #### V IDH, LIPID, CMP, GFR, TSH #### [address] [address] #### B12 #### [address] [address] Total Protein 6.9 G/dL Normal 6.4-8.2 [facility] Comment on above: Performed By: #### V IDH, LIPID, CMP, GFR, TSH #### [address] [address] #### B12 #### [address] [address] Urea nitrogen [Mass/Vol] 21 mg/dL High 7-18 [facility] Comment on above: Performed By: #### V IDH, LIPID, CMP, GFR, TSH #### [place] [address] [place], [place] [address] #### B12 #### [address] [address] LABORATORYOrdered By: SYSTEM SYSTEM on 07-31-2024 25-hydroxyvitamin D3 [Mass/Vol] 47.8 ng/mL Invalid Interpretation Code AO ADM SS Comment on above: Interpretive Data: I nterpretive Values Based on Total 25(OH) Vitamin D: Deficient <20 ng/mL Insufficient 20 - <30 ng/mL Sufficient 30-100 ng/mL Albumin BCP dye [Mass/Vol] 4.1 G/dL Normal 3.4 - 4.8 G/dL AO ADM SS Albumin/Globulin [Mass ratio] 1.5 {ratio} Normal 1.1 - 2.5 ratio AO ADM SS ALP [Catalytic activity/Vol] 98 U/L Normal 40 - 135 U/L AO ADM SS ALT With P-5'-P [Catalytic activity/Vol] 26 U/L Normal 14 - 59 U/L AO ADM SS AST With P-5'-P [Catalytic activity/Vol] 18 U/L Normal 10 - 40 U/L AO ADM SS Bilirubin [Mass/Vol] 0.4 mg/dL Normal 0.2 - 1 .0 mg/dL AO ADM SS Comment on above: Interpretive Data: U se of this assay is not recommended for patients undergoing treatment with eltrombopag due to the potential for falsely elevated results. Calcium [Mass/Vol] 9.6 mg/dL Normal 8.4 - 10. 2 mg/dL AO ADM SS Chloride [Moles/Vol] 101 mmol/L Normal 98 - 10 7 mmol/L AO ADM SS CO2 [Moles/Vol] 29 mmol/L Normal 23 - 31 mmol/L AO ADM SS Cobalamin (Vitamin B12) [Mass/Vol] 431 pg/mL Normal 211 - 911 pg/mL AH ADM SS Creatinine [Mass/Vol] 1.00 mg/dL Normal 0.55 - 1.02 mg/dL AO ADM SS Comment on above: Interpretive Data: T esting performed on Siemens Dimension EXL analyzer using a modified kinetic Jana technique. Electrolyte Balance 6.0 mEq/L Normal 4.0 - 15 .0 mEq/L AO ADM SS GFR/1.73 sq M.predicted among blacks MDRD (S/P/Bld) [Vol rate/Area] 65 ml/min/1.73sqm Invalid Interpretation Code AO Chemistry S Comment on above: Interpretive Data: GFR Population mean for , Non- Americans Ages 20-29 = 116 mL/min/1.73 sq.m. Ages 30-39 = 107 mL/min/1.73 sq.m. Ages 40-49 = 99 mL/min/1.73 sq.m. Ages 50-59 = 93 mL/min/1.73 sq.m. Ages 60-69 = 85 mL/min/1.73 sq.m. Ages 70+ = 75 mL/min/1.73 sq.m. Chronic Kidney Disease: Less than 60 mL/min/1.73 square meters End Stage Renal Disease: Less than 15 mL/min/1.73 square meters GFR/1.73 sq M.predicted among non-blacks MDRD (S/P/Bld) [Vol rate/Area] 53 ml/min/1.73sqm Invalid Interpretation Code AO Chemistry S Comment on above: Interpretive Data: GFR Population mean for , Non- Americans Ages 20-29 = 116 mL/min/1.73 sq.m. Ages 30-39 = 107 mL/min/1.73 sq.m. Ages 40-49 = 99 mL/min/1.73 sq.m. Ages 50-59 = 93 mL/min/1.73 sq.m. Ages 60-69 = 85 mL/min/1.73 sq.m. Ages 70+ = 75 mL/min/1.73 sq.m. Chronic Kidney Disease: Less than 60 mL/min/1.73 square meters End Stage Renal Disease: Less than 15 mL/min/1.73 square meters Globulin 2.8 G/dL Invalid Interpretation Code AO ADM SS Glucose [Mass/Vol] 107 mg/dL Normal 83 - 110 mg/dL AO ADM SS Potassium [Moles/Vol] 4.9 mmol/L Normal 3.5 - 5.1 mmol/L AO ADM SS Protein [Mass/Vol] 6.9 G/dL Normal 6.4 - 8.2 G/dL AO ADM SS Sodium [Moles/Vol] 136 mmol/L Normal 136 - 145 mmol/L AO ADM SS TSH Qn 0.49 m[IU]/L Normal 0.36 - 3.74 mcIU/mL AO ADM SS Urea nitrogen [Mass/Vol] 21 mg/dL High 7 - 18 mg/dL AO ADM SS Urea nitrogen/Creatinine [Mass ratio] 21 ratio Normal 7 - 27 ratio AO ADM SS LABORATORYOrdered By: Marbella Lema on 07-31-2024 Cholesterol [Mass/Vol] 156 mg/dL Normal 0 - 2 00 mg/dL AO ADM SS Comment on above: Interpretive Data: C holesterol Reference Interval: Less than 200 Desirable 200-239 Borderline high risk 240 and above High risk Cholesterol in HDL [Mass/Vol] 84 mg/dL High 40 - 60 mg/dL AO ADM SS Cholesterol in LDL [Mass/Vol] 64 mg/dL Normal 0 - 130 mg/dL AO ADM SS Triglyceride [Mass/Vol] 41 mg/dL Normal 0 - 150 mg/dL AO ADM SS Comment on above: Interpretive Data: T riglyceride Reference Interval: Less than 150 Normal 150-199 Borderline high risk 200-499 High risk 500 or higher Very high risk LIPIDon 07-31-2024 Cholesterol [Mass/Vol] 156 mg/dL Normal 0-200 [facility] Comment on above: Result Comment: Chol esterol Reference Interval: Less than 200 Desirable 200-239 Borderline high risk 240 and above High risk Performed By: #### V IDH, LIPID, CMP, GFR, TSH #### [address] [address] #### B12 #### [address] [address] Cholesterol in HDL [Mass/Vol] 84 mg/dL High 40-60 [facility] Comment on above: Performed By: #### V IDH, LIPID, CMP, GFR, TSH #### [address] [address] #### B12 #### [address] [address] Cholesterol in LDL [Mass/Vol] 64 mg/dL Normal 0-130 [facility] Comment on above: Performed By: #### V IDH, LIPID, CMP, GFR, TSH #### [address] [address] #### B12 #### [place] [id number] Triglyceride [Mass/Vol] 41 mg/dL Normal 0-150 [facility] Comment on above: Result Comment: Trig lyceride Reference Interval: Less than 150 Normal 150-199 Borderline high risk 200-499 High risk 500 or higher Very high risk Performed By: #### V IDH, LIPID, CMP, GFR, TSH #### [address] [address] #### B12 #### [place] [address] TSHon 07-31-2024 TSH Qn 0.49 m[IU]/L Normal 0.36-3.74 [facility] Comment on above: Performed By: #### V IDH, LIPID, CMP, GFR, TSH #### [address] [address] #### B12 #### [place] [address] VIDHon 07-31-2024 Vit. D 25-Hydroxy 47.8 ng/mL Normal [facility] Comment on above: Result Comment: Inte rpretive Values Based on Total 25(OH) Vitamin D: Deficient <20 ng/mL Insufficient 20 - <30 ng/mL Sufficient 30-100 ng/mL Performed By: #### V IDH, LIPID, CMP, GFR, TSH #### [address] [address] #### B12 #### [place] [address] Stress Reporton 06-25-2024 Stress Report Normal [facility] BNP,B-Type NATRIURETIC PEPTI Glenn 06-10-2024 Natriuretic peptide B (Bld) [Mass/Vol] 96.4 pg/mL Normal 0-100 [facility] Comment on above: Performed By: #### L 100.0100, L500.2500, [id number] ####[facility] [address] [place], [address] Basic Metabolic Profile (BMP )on 06-10-2024 BUN/CRE 18.6 RATIO Normal 10-20 [facility] Comment on above: Performed By: #### L 100.0100, L500.2500, [id number] ####[facility] [address] [place], [address] CA,Total 9.5 mg/dL Normal 8.5-10.1 [facility] Comment on above: Performed By: #### L 100.0100, L500.2500, [id number] ####[facility] [address] [place], [address] Chloride [Moles/Vol] 101 mmol/L Normal 98-107 [facility] Comment on above: Performed By: #### L 100.0100, L500.2500, [id number] ####[facility] [address] [place], [address] CO2 [Moles/Vol] 24.0 mmol/L Normal 21.0-32.0 [facility] Comment on above: Performed By: #### L 100.0100, L500.2500, [id number] ####[facility] [address] [place], [address] Creatinine [Mass/Vol] 1.13 mg/dL High 0.55-1.02 [facility] Comment on above: Result Comment: The validity of the calculated GFR GFRAA in patients over70 years has not been determined. Clinical correlation isessential. Performed By: #### L 100.0100, L500.2500, [id number] ####[facility] [address] [place], [address] EST GFR - AA 60 mL/min Normal >60 [facility] Comment on above: Result Comment: Afri can Cambodian GFR Calc Performed By: #### L 100.0100, L500.2500, [id number] ####[facility] [address] [place], [address] GAP 9 Normal 5-15 [facility] Comment on above: Performed By: #### L 100.0100, L500.2500, [id number] ####[facility] [address] [place], [address] GFR/1.73 sq M.predicted among non-blacks MDRD (S/P/Bld) [Vol rate/Area] 49 mL/min/{1.73_m2} Low >60 [facility] Comment on above: Result Comment: Non- GFR Calc Performed By: #### L 100.0100, L500.2500, [id number] ####[facility] [address] [place], [address] Glucose [Mass/Vol] 99 mg/dL Normal 74-106 [facility] Comment on above: Performed By: #### L 100.0100, L500.2500, [id number] ####[facility] [address] [place], [address] Potassium [Moles/Vol] 4.4 mmol/L Normal 3.5-5.1 [facility] Comment on above: Performed By: #### L 100.0100, L500.2500, [id number] ####[facility] [address] [place], [address] Sodium [Moles/Vol] 134 mmol/L Low 136-145 [facility] Comment on above: Performed By: #### L 100.0100, L500.2500, [id number] ####[facility] [address] [place], [address] Urea nitrogen [Mass/Vol] 21 mg/dL High 7-18 [facility] Comment on above: Performed By: #### L 100.0100, L500.2500, [id number] ####[facility] [address] [place], [address] CBC W/Diff, Automatedon 09-09 30-2023 Absolute Lymph 0.90 X10 3/uL Normal 0.83-4.51 [facility] Comment on above: Performed By: #### L 100.0100, L500.2500, [id number] ####[facility] [address] [place], [address] Absolute Neut 3.9 X10 3/uL Normal 2.0-7.7 [facility] Comment on above: Performed By: #### L 100.0100, L500.2500, [id number] ####[facility] [address] [place], [address] Basophils/100 WBC (Bld) 0.9 % Normal 0-1 [facility] Comment on above: Performed By: #### L 100.0100, L500.2500, [id number] ####[facility] [address] [place], [address] Eosinophils/100 WBC (Bld) 3.3 % Normal 0-5 [facility] Comment on above: Performed By: #### L 100.0100, L500.2500, [id number] ####[facility] [address] [place], [address] Erythrocyte distribution width (RBC) [Ratio] 12.1 % Normal 11.6-14.6 [facility] Comment on above: Performed By: #### L 100.0100, L500.2500, [id number] ####[facility] [address] [place], [address] Hematocrit (Bld) [Volume fraction] 41.7 % Normal 37-47 [facility] Comment on above: Performed By: #### L 100.0100, L500.2500, [id number] ####[facility] [address] [place], [address] Hemoglobin (Bld) [Mass/Vol] 13.5 g/dL Normal 12.0-15.0 [facility] Comment on above: Performed By: #### L 100.0100, L500.2500, [id number] ####[facility] [address] [place], [address] IG% 0.200 Normal 0.0-0.9 [facility] Comment on above: Result Comment: IG% - Immature Granulocytes (promyelocytes, myelocytes andmetamyelocytes) > 1% indicates that a LEFT SHIFT is Present. Performed By: #### L 100.0100, L500.2500, [id number] ####[facility] [address] [place], [address] Lymphocytes/100 WBC (Bld) 16.3 % Low 19-41 [facility] Comment on above: Performed By: #### L 100.0100, L500.2500, [id number] ####[facility] [address] [place], [address] MCH (RBC) [Entitic mass] 28.5 pg Normal 27.0-32.0 [facility] Comment on above: Performed By: #### L 100.0100, L500.2500, L503.6620 ####[facility] [address] [place], [address] MCHC (RBC) [Mass/Vol] 32.4 g/dL Normal 32-36 [facility] Comment on above: Performed By: #### L 100.0100, L500.2500, L503.6620 ####[facility] [address] [place], [address] MCV (RBC) [Entitic vol] 88.0 fL Normal 81-99 [facility] [facility] Comment on above: Performed By: #### L 100.0100, L500.2500, L503.6620 ####[facility] [address] [place], [address] Monocytes/100 WBC (Bld) 8.0 % Normal 0-10 [facility] Comment on above: Performed By: #### L 100.0100, L500.2500, [id number] ####[facility] [address] [place], [address] Neutrophils/100 WBC (Bld) 71.3 % High 47-70 [facility] Comment on above: Performed By: #### L 100.0100, L500.2500, [id number] ####[facility] [address] [place], [address] Nucleated RBC (Bld) [#/Vol] 0 10*3/uL Normal 0-5 [facility] Comment on above: Performed By: #### L 100.0100, L500.2500, [id number] ####[facility] [address] [place], [address] Platelet mean volume (Bld) [Entitic vol] 9.3 fL Normal 6.2-12.0 [facility] Comment on above: Performed By: #### L 100.0100, L500.2500, [id number] ####[facility] [address] [place], [address] Platelets (Bld) [#/Vol] 276 10*3/uL Normal 150-450 [facility] Comment on above: Performed By: #### L 100.0100, L500.2500, [id number] ####[facility] [address] [place], [address] RBC (Bld) [#/Vol] 4.74 10*6/uL Normal 4.2-5.4 [facility] Comment on above: Performed By: #### L 100.0100, L500.2500, [id number] ####[facility] [address] [place], [address] RDW SD 39.3 fl Normal 35.1-43.9 [facility] Comment on above: Performed By: #### L 100.0100, L500.2500, [id number] ####[facility] [address] [place], [address] WBC (Bld) [#/Vol] 5.5 10*3/uL Normal 4.4-11.0 [facility] Comment on above: Performed By: #### L 100.0100, L500.2500, [id number] ####[facility] [address] [place], [address] Cardiology Visit Reporton Cardiology Visit Report Normal [facility] LABORATORYOrdered By: SYSTEM SYSTEM on 05-23-2024 Natriuretic peptide.B prohormone N-Terminal [Mass/Vol] 425 pg/mL Normal 0 - 450 pg/mL AO ADM SS Comment on above: Interpretive Data: N T-proBNP results of less than 300 pg/mL effectively rules out acute congestive heart failure with 99% negative predictive value. PBNPon 05-23-2024 Natriuretic peptide B (Bld) [Mass/Vol] 425 pg/mL Normal 0-450 [facility] ([place]) Comment on above: Result Comment: NT-p roBNP results of less than 300 pg/mL effectively rules out acute congestive heart failure with 99% negative predictive value. Performed By: #### C BC, MG, GFR, ANEU, MDW, ADIFF, DIMER, TROPHS, LIP, CMP #### [address] [address] .Auto Diffon 05-15-2024 Basophil, Absolute 0.0 10 3/mcL Normal 0.0-0.2 [facility] ([place]) Comment on above: Performed By: #### C BC, MG, GFR, ANEU, MDW, ADIFF, DIMER, TROPHS, LIP, CMP #### [place] [address] [place], [place] [address] Basophils/100 WBC (Bld) 0.6 % Normal 0.0-2.5 A Counts include 234 beds at the [facility] ([place]) Comment on above: Performed By: #### C BC, MG, GFR, ANEU, MDW, ADIFF, DIMER, TROPHS, LIP, CMP #### [address] [address] Eosinophil, Absolute 0.4 10 3/mcL Normal 0.0-0.4 [facility] ([place]) Comment on above: Performed By: #### C BC, MG, GFR, ANEU, MDW, ADIFF, DIMER, TROPHS, LIP, CMP #### [address] [address] Eosinophils/100 WBC (Bld) 8.1 % High 0.0-7.0 [facility] ([place]) Comment on above: Performed By: #### C BC, MG, GFR, ANEU, MDW, ADIFF, DIMER, TROPHS, LIP, CMP #### [address] [address] Lymphocyte, Absolute 1.1 10 3/mcL Normal 0.8-3.9 [facility] ([place]) Comment on above: Performed By: #### C BC, MG, GFR, ANEU, MDW, ADIFF, DIMER, TROPHS, LIP, CMP #### [address] [address] Lymphocytes/100 WBC (Bld) 21.0 % Normal 10.0-50.0 [facility] ([place]) Comment on above: Performed By: #### C BC, MG, GFR, ANEU, MDW, ADIFF, DIMER, TROPHS, LIP, CMP #### [address] [address] Monocyte, Absolute 0.5 10 3/mcL Normal 0.2-1.0 [facility] ([place]) Comment on above: Performed By: #### C BC, MG, GFR, ANEU, MDW, ADIFF, DIMER, TROPHS, LIP, CMP #### [address] [address] Monocytes/100 WBC (Bld) 9.5 % Normal 1.7-13.0 A Counts include 234 beds at the [facility] ([place]) Comment on above: Performed By: #### C BC, MG, GFR, ANEU, MDW, ADIFF, DIMER, TROPHS, LIP, CMP #### [address] [address] Neutrophils/100 WBC (Bld) 60.8 % Normal 37.0-80.0 [facility] ([place]) Comment on above: Performed By: #### C BC, MG, GFR, ANEU, MDW, ADIFF, DIMER, TROPHS, LIP, CMP #### [address] [address] .GFRon 05-15-2024 GFR 62 ml/min/1.73sqm Normal [facility] ([place]) Comment on above: Result Comment: GFR Population mean for , Non- Americans Ages 20-29 = 116 mL/min/1.73 sq.m. Ages 30-39 = 107 mL/min/1.73 sq.m. Ages 40-49 = 99 mL/min/1.73 sq.m. Ages 50-59 = 93 mL/min/1.73 sq.m. Ages 60-69 = 85 mL/min/1.73 sq.m. Ages 70+ = 75 mL/min/1.73 sq.m. Chronic Kidney Disease: Less than 60 mL/min/1.73 square meters End Stage Renal Disease: Less than 15 mL/min/1.73 square meters Performed By: #### C BC, MG, GFR, ANEU, MDW, ADIFF, DIMER, TROPHS, LIP, CMP #### [address] [address] GFR Non- 51 ml/min/1.73sqm Normal [facility] ([place]) Comment on above: Result Comment: GFR Population mean for , Non- Americans Ages 20-29 = 116 mL/min/1.73 sq.m. Ages 30-39 = 107 mL/min/1.73 sq.m. Ages 40-49 = 99 mL/min/1.73 sq.m. Ages 50-59 = 93 mL/min/1.73 sq.m. Ages 60-69 = 85 mL/min/1.73 sq.m. Ages 70+ = 75 mL/min/1.73 sq.m. Chronic Kidney Disease: Less than 60 mL/min/1.73 square meters End Stage Renal Disease: Less than 15 mL/min/1.73 square meters Performed By: #### C BC, MG, GFR, ANEU, MDW, ADIFF, DIMER, TROPHS, LIP, CMP #### [place] [id number] .NEUABSon 05-15-2024 Neutrophil, Absolute 3.3 10 3/mcL Normal 2.9-6.2 [facility] ([place]) Comment on above: Performed By: #### C BC, MG, GFR, ANEU, MDW, ADIFF, DIMER, TROPHS, LIP, CMP #### [place] [address] CBCon 05-15-2024 Erythrocyte distribution width (RBC) [Ratio] 12.8 % Normal 11.5-14.5 [facility] ([place]) Comment on above: Performed By: #### C BC, MG, GFR, ANEU, MDW, ADIFF, DIMER, TROPHS, LIP, CMP #### [place] [address] Hematocrit (Bld) [Volume fraction] 40.5 % Normal 37.0-47.0 [facility] ([place]) Comment on above: Performed By: #### C BC, MG, GFR, ANEU, MDW, ADIFF, DIMER, TROPHS, LIP, CMP #### [place] [address] Hgb 13.6 G/dL Normal 12.0-16.0 [facility] ([place]) Comment on above: Performed By: #### C BC, MG, GFR, ANEU, MDW, ADIFF, DIMER, TROPHS, LIP, CMP #### [place] [id number] MCH (RBC) [Entitic mass] 29.9 pg Normal 27.0-31.2 [facility] ([place]) Comment on above: Performed By: #### C BC, MG, GFR, ANEU, MDW, ADIFF, DIMER, TROPHS, LIP, CMP #### [address] [address] MCHC 33.7 G/dL Normal 33.0-37.0 [facility] ([place]) Comment on above: Performed By: #### C BC, MG, GFR, ANEU, MDW, ADIFF, DIMER, TROPHS, LIP, CMP #### [address] [address] MCV (RBC) [Entitic vol] 88.8 fL Normal 80.0-94.0 A Counts include 234 beds at the [facility] ([place]) Comment on above: Performed By: #### C BC, MG, GFR, ANEU, MDW, ADIFF, DIMER, TROPHS, LIP, CMP #### [address] [address] Platelet 267 10 3/mcL Normal 130-400 [facility] ([place]) Comment on above: Performed By: #### C BC, MG, GFR, ANEU, MDW, ADIFF, DIMER, TROPHS, LIP, CMP #### [address] [address] Platelet mean volume (Bld) [Entitic vol] 7.7 fL Normal 7.4-10.4 [facility] ([place]) Comment on above: Performed By: #### C BC, MG, GFR, ANEU, MDW, ADIFF, DIMER, TROPHS, LIP, CMP #### [address] [address] RBC 4.56 10 6/mcL Normal 4.20-5.40 [facility] ([place]) Comment on above: Performed By: #### C BC, MG, GFR, ANEU, MDW, ADIFF, DIMER, TROPHS, LIP, CMP #### [address] [address] WBC 5.4 10 3/mcL Normal 4.6-10.8 [facility] ([place]) Comment on above: Performed By: #### C BC, MG, GFR, ANEU, MDW, ADIFF, DIMER, TROPHS, LIP, CMP #### [address] [address] CMPon 05-15-2024 Albumin Level 4.1 G/dL Normal 3.4-4.8 [facility] ([place]) Comment on above: Performed By: #### C BC, MG, GFR, ANEU, MDW, ADIFF, DIMER, TROPHS, LIP, CMP #### [place] [phone] Albumin/Globulin [Mass ratio] 1.5 {ratio} Normal 1.1-2.5 [facility] ([place]) Comment on above: Performed By: #### C BC, MG, GFR, ANEU, MDW, ADIFF, DIMER, TROPHS, LIP, CMP #### [address] [address] ALP [Catalytic activity/Vol] 78 U/L Normal 40-135 [facility] ([place]) Comment on above: Performed By: #### C BC, MG, GFR, ANEU, MDW, ADIFF, DIMER, TROPHS, LIP, CMP #### [address] [address] ALT [Catalytic activity/Vol] 26 U/L Normal 14-59 [facility] ([place]) Comment on above: Performed By: #### C BC, MG, GFR, ANEU, MDW, ADIFF, DIMER, TROPHS, LIP, CMP #### [address] [address] AST [Catalytic activity/Vol] 19 U/L Normal 10-40 [facility] ([place]) Comment on above: Performed By: #### C BC, MG, GFR, ANEU, MDW, ADIFF, DIMER, TROPHS, LIP, CMP #### [address] [address] Bili Total 0.6 mg/dL Normal 0.2-1.0 [facility] ([place]) Comment on above: Result Comment: Use of this assay is not recommended for patients undergoing treatment with eltrombopag due to the potential for falsely elevated results. Performed By: #### C BC, MG, GFR, ANEU, MDW, ADIFF, DIMER, TROPHS, LIP, CMP #### [address] [address] BUN/Creatinine Ratio 13 ratio Normal 7-27 [facility] ([place]) Comment on above: Performed By: #### C BC, MG, GFR, ANEU, MDW, ADIFF, DIMER, TROPHS, LIP, CMP #### [place] [address] Calcium [Mass/Vol] 9.7 mg/dL Normal 8.4-10.2 [facility] ([place]) Comment on above: Performed By: #### C BC, MG, GFR, ANEU, MDW, ADIFF, DIMER, TROPHS, LIP, CMP #### [address] [address] Chloride [Moles/Vol] 99 mmol/L Normal 98-107 [facility] ([place]) Comment on above: Performed By: #### C BC, MG, GFR, ANEU, MDW, ADIFF, DIMER, TROPHS, LIP, CMP #### [address] [address] CO2 [Moles/Vol] 32 mmol/L High 23-31 [facility] ([place]) Comment on above: Performed By: #### C BC, MG, GFR, ANEU, MDW, ADIFF, DIMER, TROPHS, LIP, CMP #### [address] [address] Creatinine [Mass/Vol] 1.04 mg/dL High 0.55-1.02 Pending sale to [facility] ([place]) Comment on above: Performed By: #### C BC, MG, GFR, ANEU, MDW, ADIFF, DIMER, TROPHS, LIP, CMP #### [address] [address] Electrolyte Balance 5.0 mEq/L Normal 4.0-15.0 [facility] ([place]) Comment on above: Performed By: #### C BC, MG, GFR, ANEU, MDW, ADIFF, DIMER, TROPHS, LIP, CMP #### [address] [address] Globulin 2.8 G/dL Normal [facility] ([place]) Comment on above: Performed By: #### C BC, MG, GFR, ANEU, MDW, ADIFF, DIMER, TROPHS, LIP, CMP #### [address] [address] Glucose [Mass/Vol] 87 mg/dL Normal 83-110 [facility] ([place]) Comment on above: Performed By: #### C BC, MG, GFR, ANEU, MDW, ADIFF, DIMER, TROPHS, LIP, CMP #### [address] [address] Potassium [Moles/Vol] 4.6 mmol/L Normal 3.5-5.1 Pending sale to [facility] ([place]) Comment on above: Performed By: #### C BC, MG, GFR, ANEU, MDW, ADIFF, DIMER, TROPHS, LIP, CMP #### [address] [address] Sodium [Moles/Vol] 136 mmol/L Normal 136-145 [facility] ([place]) Comment on above: Performed By: #### C BC, MG, GFR, ANEU, MDW, ADIFF, DIMER, TROPHS, LIP, CMP #### [address] [address] Total Protein 6.9 G/dL Normal 6.4-8.2 [facility] ([place]) Comment on above: Performed By: #### C BC, MG, GFR, ANEU, MDW, ADIFF, DIMER, TROPHS, LIP, CMP #### [address] [address] Urea nitrogen [Mass/Vol] 14 mg/dL Normal 7-18 [facility] ([place]) Comment on above: Performed By: #### C BC, MG, GFR, ANEU, MDW, ADIFF, DIMER, TROPHS, LIP, CMP #### [address] [address] [address] ANGIOGRAPHY HEAD W/ CONTR Cassie 05-15-2024 CT ANGIOGRAPHY HEAD W/ CONTRAST ORIGINAL EXAMINATION: CT Angiogram of the head with intravenous contrast TECHNIQUE: CT angiogram of the head was obtained. Sagittal and coronal reformations and maximum intensity projection reconstructions were provided. Images were obtained before and after the uneventful administration of 100 mL Isovue 370 3D reformatted MIP images were provided One or more of the following dose reduction techniques were used: automated exposure control, adjustment of the mA and/or kV according to patient size, or use of iterative reconstruction technique. DICOM images are available. COMPARISON: Same day CTA neck and noncontrast CT head 09/02/2023 HISTORY: ORDERING SYSTEM PROVIDED HISTORY: Reason for Exam: PERSISTENT DIZZINESS FINDINGS: Brain Parenchyma: No acute intracranial hemorrhage, midline shift, mass effect or an acute transcortical infarct. The dooley-white matter junctions are preserved. Moderate generalized parenchymal volume loss is present. Scattered areas of decreased attenuation in the subcortical, periventricular, deep white matter statistically reflect mild chronic microvascular white matter ischemic disease. Ventricles: Proportionally prominent ventricular to sulcal size on the basis of parenchymal volume loss. Paranasal sinuses: Clear. Rightward nasal septal deviation. Bilateral, left larger than right demond bullosa of the middle nasal turbinates. Bilaterally patent ostiomeatal units. Mastoid air cells: Small right mastoid effusion. Trace fluid on the left side. Bones: No acute osseous pathology or focal lesion. Moderate narrowing of the bilateral temporomandibular joints. Cerebral angiogram Aneurysm: No aneurysm identified. Anterior circulation: Internal carotid arteries:Atherosclerot ic calcifications of the bilateral internal carotid siphons resulting in mild stenoses. Ophthalmic arteries:The bilateral proximal ophthalmic arteries are patent. Anterior cerebral arteries:No flow-limiting stenosis Middle cerebral arteries:No flow-limiting stenosis. Posterior cerebral arteries:No significant flow-limiting stenosis. Anterior communicating artery:Present. Posterior communicating arteries:Bilaterally aplastic or hypoplastic. Posterior circulation: Basilar artery:No flow-limiting stenosis V3/V4 vertebral arteries:No significant flow-limiting stenosis. Dural venous sinuses:Patent. IMPRESSION: 1. No significant flow-limiting stenosis or aneurysm. 2. Moderate generalized parenchymal volume loss and mild chronic microvascular white matter ischemic disease. 3. Small right and trace left mastoid effusions. 4. Moderate narrowing of the bilateral temporomandibular joints. Interpreted by: Azam Art MD Preliminary Report By: Azam Art MD Electronically signed By Azam Art MD Dictated Date: 05/15/2024 9:38:15 AM Prelim Date: 05/15/2024 9:48:09 AM Sign Date: 05/15/2024 9:48:09 AM Ordering Provider: ARGELIA Horan [facility] ([place]) CT ANGIOGRAPHY NECK W/CONTRA STon 05-15-2024 CT ANGIOGRAPHY NECK W/CONTRAST ORIGINAL EXAMINATION: CTA neck: TECHNIQUE: Contiguous spiral images were obtained in the axial plane, following the administration of intravenous contrast using CT angiographic protocol. Sagittal and coronal images were reconstructed from the axial plane acquisition. Additional 3D reformatted MIP reconstructions were presented to aid in the interpretation of this study. Images were obtained from the skull base through the upper lobes. Contrast: 100 mL Isovue 370 One or more the following dose reduction techniques were used:automated exposure control, adjustment of the mA and/or kV according to patient size, or use of iterative reconstruction technique. Additional comment: None. COMPARISON: Same day CTA head HISTORY: ORDERING SYSTEM PROVIDED HISTORY: Reason for Exam: PERSISTENT DIZZINESS FINDINGS: Neck Angiogram Aorta: No significant atherosclerotic plaque. Patent innominate, left common carotid and bilateral subclavian arteries without a hemodynamically significant stenosis. Calcified plaque of the left vertebral artery disc proximal to the origin of the left vertebral artery noted. Right common carotid artery: No hemodynamically significant flow-limiting stenosis. Right internal carotid artery: Mild calcified plaque of the carotid bulb without a measurable stenosis. Right external carotid artery: Punctate calcification of the proximal external carotid artery. No hemodynamically significant flow-limiting stenosis. Left common carotid artery: No hemodynamically significant flow-limiting stenosis. Left internal carotid artery: Calcified plaque of the carotid bulb causing a 25% stenosis.. Left external carotid artery: Punctate calcified plaque of the proximal external carotid artery. No hemodynamically significant flow-limiting stenosis. V1/V2 vertebral arteries: No hemodynamically significant flow-limiting stenosis. Vertebral artery dominance: Left Neck Soft tissues: Normal. Bones: No acute osseous pathology. Straightening of the normal cervical lordosis. Severe spondylotic changes involve C5-C6, C6-C7 and to lesser extent C4-C5. Severe degenerative change of the bilateral sternoclavicular joints noted. And 1 Lung apices: Clear. IMPRESSION: 1. No hemodynamically significant flow-limiting stenosis. 2. Calcified plaque of the bilateral carotid bulbs causing a 25% stenosis on the left and no measurable stenosis on the right. 3. 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 4. 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 The estimate of the degree of stenosis included in this report is based on the NASCET method for calculating stenosis, using the internal carotid artery distal to the stenosis as the reference point. Interpreted by: Azam Art MD Preliminary Report By: Azam Art MD Electronically signed By Azam Art MD Dictated Date: 05/15/2024 9:48:18 AM Prelim Date: 05/15/2024 9:55:06 AM Sign Date: 05/15/2024 9:55:06 AM Ordering Provider: ARGELIA Horan [facility]) FT3on 05-15-2024 Free T3 [Mass/Vol] 2.69 pg/mL Normal 2.30-4.00 [facility]) Comment on above: Performed By: #### C BC, MG, GFR, DAVID, MDW, ADIFF, DIMER, TROPHS, LIP, CMP #### [place] [address] FT4on 05-15-2024 Free T4 [Mass/Vol] 1.01 ng/dL Normal 0.76-1.46 [facility]) Comment on above: Performed By: #### C BC, MG, GFR, ANEU, MDW, ADIFF, DIMER, TROPHS, LIP, CMP #### [place] [address] LABORATORYOrdered By: SYSTEM SYSTEM on 05-15-2024 Albumin BCP dye [Mass/Vol] 4.1 G/dL Normal 3.4 - 4.8 G/dL AO ADM SS Albumin/Globulin [Mass ratio] 1.5 {ratio} Normal 1.1 - 2.5 ratio AO ADM SS ALP [Catalytic activity/Vol] 78 U/L Normal 40 - 135 U/L AO ADM SS ALT With P-5'-P [Catalytic activity/Vol] 26 U/L Normal 14 - 59 U/L AO ADM SS AST With P-5'-P [Catalytic activity/Vol] 19 U/L Normal 10 - 40 U/L AO ADM SS Basophil, Absolute 0.0 103/mcL Normal 0.0 - 0.2 10^3/mcL AO Workflow SS Basophils/100 WBC (Bld) 0.6 % Normal 0.0 - 2.5 % AO Workflow SS Bilirubin [Mass/Vol] 0.6 mg/dL Normal 0.2 - 1 .0 mg/dL AO ADM SS Comment on above: Interpretive Data: U se of this assay is not recommended for patients undergoing treatment with eltrombopag due to the potential for falsely elevated results. Calcium [Mass/Vol] 9.7 mg/dL Normal 8.4 - 10. 2 mg/dL AO ADM SS Chloride [Moles/Vol] 99 mmol/L Normal 98 - 10 7 mmol/L AO ADM SS CO2 [Moles/Vol] 32 mmol/L High 23 - 31 mmol/L AO ADM SS Creatinine [Mass/Vol] 1.04 mg/dL High 0.55 - 1.02 mg/dL AO ADM SS Electrolyte Balance 5.0 mEq/L Normal 4.0 - 15 .0 mEq/L AO ADM SS Eosinophil, Absolute 0.4 103/mcL Normal 0.0 - 0 .4 10^3/mcL AO Workflow SS Eosinophils/100 WBC (Bld) 8.1 % High 0.0 - 7.0 % AO Workflow SS Erythrocyte distribution width (RBC) [Ratio] 12.8 % Normal 11.5 - 14.5 % AO Workflow SS Free T3 [Mass/Vol] 2.69 pg/mL Normal 2.30 - 4. 00 pg/mL AO ADM SS Free T4 [Mass/Vol] 1.01 ng/dL Normal 0.76 - 1. 46 ng/dL AO ADM SS GFR/1.73 sq M.predicted among blacks MDRD (S/P/Bld) [Vol rate/Area] 62 ml/min/1.73sqm Invalid Interpretation Code AO Chemistry S Comment on above: Interpretive Data: GFR Population mean for , Non- Americans Ages 20-29 = 116 mL/min/1.73 sq.m. Ages 30-39 = 107 mL/min/1.73 sq.m. Ages 40-49 = 99 mL/min/1.73 sq.m. Ages 50-59 = 93 mL/min/1.73 sq.m. Ages 60-69 = 85 mL/min/1.73 sq.m. Ages 70+ = 75 mL/min/1.73 sq.m. Chronic Kidney Disease: Less than 60 mL/min/1.73 square meters End Stage Renal Disease: Less than 15 mL/min/1.73 square meters GFR/1.73 sq M.predicted among non-blacks MDRD (S/P/Bld) [Vol rate/Area] 51 ml/min/1.73sqm Invalid Interpretation Code AO Chemistry S Comment on above: Interpretive Data: GFR Population mean for , Non- Americans Ages 20-29 = 116 mL/min/1.73 sq.m. Ages 30-39 = 107 mL/min/1.73 sq.m. Ages 40-49 = 99 mL/min/1.73 sq.m. Ages 50-59 = 93 mL/min/1.73 sq.m. Ages 60-69 = 85 mL/min/1.73 sq.m. Ages 70+ = 75 mL/min/1.73 sq.m. Chronic Kidney Disease: Less than 60 mL/min/1.73 square meters End Stage Renal Disease: Less than 15 mL/min/1.73 square meters Globulin 2.8 G/dL Invalid Interpretation Code AO ADM SS Glucose [Mass/Vol] 87 mg/dL Normal 83 - 110 mg/dL AO ADM SS Hematocrit (Bld) [Volume fraction] 40.5 % Normal 37.0 - 47.0 % AO Workflow SS Hemoglobin (Bld) [Mass/Vol] 13.6 G/dL Normal 12.0 - 16.0 G/dL AO Workflow SS Lymphocyte, Absolute 1.1 103/mcL Normal 0.8 - 3 .9 10^3/mcL AO Workflow SS Lymphocytes/100 WBC (Bld) 21.0 % Normal 10.0 - 50.0 % AO Workflow SS MCH (RBC) [Entitic mass] 29.9 pg Normal 27. 0 - 31.2 pg AO Workflow SS MCHC 33.7 G/dL Normal 33.0 - 37.0 G/dL AO Workflow SS MCV (RBC) [Entitic vol] 88.8 fL Normal 80.0 - 94.0 fL AO Workflow SS Monocyte, Absolute 0.5 103/mcL Normal 0.2 - 1.0 10^3/mcL AO Workflow SS Monocytes/100 WBC (Bld) 9.5 % Normal 1.7 - 13.0 % AO Workflow SS Neutrophil, Absolute 3.3 103/mcL Normal 2.9 - 6 .2 10^3/mcL AO Workflow SS Neutrophils/100 WBC (Bld) 60.8 % Normal 37.0 - 80.0 % AO Workflow SS Platelet mean volume (Bld) [Entitic vol] 7.7 fL Normal 7.4 - 10.4 fL AO Workflow SS Platelets (Bld) [#/Vol] 267 103/mcL Normal 130 - 400 10^3/mcL AO Workflow SS Potassium [Moles/Vol] 4.6 mmol/L Normal 3.5 - 5.1 mmol/L AO ADM SS Protein [Mass/Vol] 6.9 G/dL Normal 6.4 - 8.2 G/dL AO ADM SS RBC (Bld) [#/Vol] 4.56 106/mcL Normal 4.20 - 5.4 0 10^6/mcL AO Workflow SS Sodium [Moles/Vol] 136 mmol/L Normal 136 - 145 mmol/L AO ADM SS TSH Qn 0.64 m[IU]/L Normal 0.36 - 3.74 mcIU/mL AO ADM SS Urea nitrogen [Mass/Vol] 14 mg/dL Normal 7 - 18 mg/dL AO ADM SS Urea nitrogen/Creatinine [Mass ratio] 13 ratio Normal 7 - 27 ratio AO ADM SS WBC (Bld) [#/Vol] 5.4 103/mcL Normal 4.6 - 10.8 10^3/mcL AO Workflow SS TSHon 05-15-2024 TSH Qn 0.64 m[IU]/L Normal 0.36-3.74 [facility] ([place]) Comment on above: Performed By: #### C BC, MG, GFR, ANEU, MDW, ADIFF, DIMER, TROPHS, LIP, CMP #### [address] [address] .GFRon 04-15-2024 GFR 56 ml/min/1.73sqm Normal [facility] ([place]) Comment on above: Result Comment: GFR Population mean for , Non- Americans Ages 20-29 = 116 mL/min/1.73 sq.m. Ages 30-39 = 107 mL/min/1.73 sq.m. Ages 40-49 = 99 mL/min/1.73 sq.m. Ages 50-59 = 93 mL/min/1.73 sq.m. Ages 60-69 = 85 mL/min/1.73 sq.m. Ages 70+ = 75 mL/min/1.73 sq.m. Chronic Kidney Disease: Less than 60 mL/min/1.73 square meters End Stage Renal Disease: Less than 15 mL/min/1.73 square meters Performed By: #### C BC, MG, GFR, ANEU, MDW, ADIFF, DIMER, TROPHS, LIP, CMP #### [address] [address] GFR Non- 46 ml/min/1.73sqm Normal [facility] ([place]) Comment on above: Result Comment: GFR Population mean for , Non- Americans Ages 20-29 = 116 mL/min/1.73 sq.m. Ages 30-39 = 107 mL/min/1.73 sq.m. Ages 40-49 = 99 mL/min/1.73 sq.m. Ages 50-59 = 93 mL/min/1.73 sq.m. Ages 60-69 = 85 mL/min/1.73 sq.m. Ages 70+ = 75 mL/min/1.73 sq.m. Chronic Kidney Disease: Less than 60 mL/min/1.73 square meters End Stage Renal Disease: Less than 15 mL/min/1.73 square meters Performed By: #### C BC, MG, GFR, ANEU, MDW, ADIFF, DIMER, TROPHS, LIP, CMP #### [address] [address] BMPon 04-15-2024 BUN/Creatinine Ratio 18 ratio Normal 7-27 [facility] ([place]) Comment on above: Performed By: #### C BC, MG, GFR, ANEU, MDW, ADIFF, DIMER, TROPHS, LIP, CMP #### [address] [address] Calcium [Mass/Vol] 9.8 mg/dL Normal 8.4-10.2 [facility] ([place]) Comment on above: Performed By: #### C BC, MG, GFR, ANEU, MDW, ADIFF, DIMER, TROPHS, LIP, CMP #### [address] [address] Chloride [Moles/Vol] 100 mmol/L Normal 98-107 [facility] ([place]) Comment on above: Performed By: #### C BC, MG, GFR, ANEU, MDW, ADIFF, DIMER, TROPHS, LIP, CMP #### [address] [address] CO2 [Moles/Vol] 33 mmol/L High 23-31 [facility] ([place]) Comment on above: Performed By: #### C BC, MG, GFR, ANEU, MDW, ADIFF, DIMER, TROPHS, LIP, CMP #### [address] [address] Creatinine [Mass/Vol] 1.14 mg/dL High 0.55-1.02 Pending sale to [facility] ([place]) Comment on above: Performed By: #### C BC, MG, GFR, ANEU, MDW, ADIFF, DIMER, TROPHS, LIP, CMP #### [address] [address] Electrolyte Balance 3.0 mEq/L Low 4.0-15.0 [facility] ([place]) Comment on above: Performed By: #### C BC, MG, GFR, ANEU, MDW, ADIFF, DIMER, TROPHS, LIP, CMP #### [address] [address] Glucose [Mass/Vol] 82 mg/dL Low 83-110 [facility] ([place]) Comment on above: Performed By: #### C BC, MG, GFR, ANEU, MDW, ADIFF, DIMER, TROPHS, LIP, CMP #### [address] [address] Potassium [Moles/Vol] 5.0 mmol/L Normal 3.5-5.1 Pending sale to [facility] ([place]) Comment on above: Performed By: #### C BC, MG, GFR, ANEU, MDW, ADIFF, DIMER, TROPHS, LIP, CMP #### [address] [address] Sodium [Moles/Vol] 136 mmol/L Normal 136-145 [facility] ([place]) Comment on above: Performed By: #### C BC, MG, GFR, ANEU, MDW, ADIFF, DIMER, TROPHS, LIP, CMP #### [place] [address] Urea nitrogen [Mass/Vol] 20 mg/dL High 7-18 [facility] ([place]) Comment on above: Performed By: #### C BC, MG, GFR, ANEU, MDW, ADIFF, DIMER, TROPHS, LIP, CMP #### [place] [address] FT3on 04-15-2024 Free T3 [Mass/Vol] 2.83 pg/mL Normal 2.30-4.00 [facility] ([place]) Comment on above: Performed By: #### C BC, MG, GFR, ANEU, MDW, ADIFF, DIMER, TROPHS, LIP, CMP #### [address] [address] FT4on 04-15-2024 Free T4 [Mass/Vol] 0.86 ng/dL Normal 0.76-1.46 [facility] ([place]) Comment on above: Performed By: #### C BC, MG, GFR, ANEU, MDW, ADIFF, DIMER, TROPHS, LIP, CMP #### [place] [address] LABORATORYOrdered By: SYSTEM SYSTEM on 04-15-2024 Calcium [Mass/Vol] 9.8 mg/dL Normal 8.4 - 10. 2 mg/dL AO ADM SS Chloride [Moles/Vol] 100 mmol/L Normal 98 - 10 7 mmol/L AO ADM SS CO2 [Moles/Vol] 33 mmol/L High 23 - 31 mmol/L AO ADM SS Creatinine [Mass/Vol] 1.14 mg/dL High 0.55 - 1.02 mg/dL AO ADM SS Electrolyte Balance 3.0 mEq/L Low 4.0 - 15 .0 mEq/L AO ADM SS Free T3 [Mass/Vol] 2.83 pg/mL Normal 2.30 - 4. 00 pg/mL AO ADM SS Free T4 [Mass/Vol] 0.86 ng/dL Normal 0.76 - 1. 46 ng/dL AO ADM SS GFR/1.73 sq M.predicted among blacks MDRD (S/P/Bld) [Vol rate/Area] 56 ml/min/1.73sqm Invalid Interpretation Code AO Chemistry S Comment on above: Interpretive Data: GFR Population mean for , Non- Americans Ages 20-29 = 116 mL/min/1.73 sq.m. Ages 30-39 = 107 mL/min/1.73 sq.m. Ages 40-49 = 99 mL/min/1.73 sq.m. Ages 50-59 = 93 mL/min/1.73 sq.m. Ages 60-69 = 85 mL/min/1.73 sq.m. Ages 70+ = 75 mL/min/1.73 sq.m. Chronic Kidney Disease: Less than 60 mL/min/1.73 square meters End Stage Renal Disease: Less than 15 mL/min/1.73 square meters GFR/1.73 sq M.predicted among non-blacks MDRD (S/P/Bld) [Vol rate/Area] 46 ml/min/1.73sqm Invalid Interpretation Code AO Chemistry S Comment on above: Interpretive Data: GFR Population mean for , Non- Americans Ages 20-29 = 116 mL/min/1.73 sq.m. Ages 30-39 = 107 mL/min/1.73 sq.m. Ages 40-49 = 99 mL/min/1.73 sq.m. Ages 50-59 = 93 mL/min/1.73 sq.m. Ages 60-69 = 85 mL/min/1.73 sq.m. Ages 70+ = 75 mL/min/1.73 sq.m. Chronic Kidney Disease: Less than 60 mL/min/1.73 square meters End Stage Renal Disease: Less than 15 mL/min/1.73 square meters Glucose [Mass/Vol] 82 mg/dL Low 83 - 110 mg/dL AO ADM SS Potassium [Moles/Vol] 5.0 mmol/L Normal 3.5 - 5.1 mmol/L AO ADM SS Sodium [Moles/Vol] 136 mmol/L Normal 136 - 145 mmol/L AO ADM SS TSH Qn 0.97 m[IU]/L Normal 0.36 - 3.74 mcIU/mL AO ADM SS Urea nitrogen [Mass/Vol] 20 mg/dL High 7 - 18 mg/dL AO ADM SS Urea nitrogen/Creatinine [Mass ratio] 18 ratio Normal 7 - 27 ratio AO ADM SS TSHon 04-15-2024 TSH Qn 0.97 m[IU]/L Normal 0.36-3.74 [facility] ([place]) Comment on above: Performed By: #### C BC, MG, GFR, ANEU, MDW, ADIFF, DIMER, TROPHS, LIP, CMP #### [facility] [address] [place], [place] [address] Basic Metabolic Profile (BMP )on 03-20-2024 BUN/CRE 15.6 RATIO Normal 10-20 [facility] Comment on above: Performed By: #### L 500.2500, L501.5200 ####[facility] [address] [place], [address] CA,Total 8.8 mg/dL Normal 8.5-10.1 [facility] Comment on above: Performed By: #### L 500.2500, L501.5200 ####[facility] [address] [place], [address] Chloride [Moles/Vol] 102 mmol/L Normal 98-107 [facility] Comment on above: Performed By: #### L 500.2500, L501.5200 ####[facility] [address] [place], [address] CO2 [Moles/Vol] 29.0 mmol/L Normal 21.0-32.0 [facility] Comment on above: Performed By: #### L 500.2500, L501.5200 ####[facility] [address] [place], [address] Creatinine [Mass/Vol] 1.22 mg/dL High 0.55-1.02 [facility] Comment on above: Result Comment: The validity of the calculated GFR GFRAA in patients over70 years has not been determined. Clinical correlation isessential. Performed By: #### L 500.2500, L501.5200 ####[facility] [address] [place], [address] EST GFR - AA 55 mL/min Low >60 [facility] Comment on above: Result Comment: Afri can Cambodian GFR Calc Performed By: #### L 500.2500, L501.5200 ####[facility] [address] [place], [address] GAP 6 Normal 5-15 [facility] Comment on above: Performed By: #### L 500.2500, L501.5200 ####[facility] [address] [place], [address] GFR/1.73 sq M.predicted among non-blacks MDRD (S/P/Bld) [Vol rate/Area] 45 mL/min/{1.73_m2} Low >60 [facility] Comment on above: Result Comment: Non- GFR Calc Performed By: #### L 500.2500, L501.5200 ####[facility] [address] [place], [address] Glucose [Mass/Vol] 111 mg/dL High 74-106 [facility] Comment on above: Result Comment: Fast ing Glucose result from 100 to 125 mg/dLsuggests IMPAIRED HOMEOSTASIS per A.D.A. criteria. Performed By: #### L 500.2500, L501.5200 ####[facility] [address] [place], [address] Potassium [Moles/Vol] 3.9 mmol/L Normal 3.5-5.1 [facility] Comment on above: Performed By: #### L 500.2500, L501.5200 ####[facility] [address] [place], [address] Sodium [Moles/Vol] 137 mmol/L Normal 136-145 [facility] Comment on above: Performed By: #### L 500.2500, L501.5200 ####[facility] [address] [place], [address] Urea nitrogen [Mass/Vol] 19 mg/dL High 7-18 [facility] Comment on above: Performed By: #### L 500.2500, L501.5200 ####[facility] [address] [place], [address] Magnesiumon 03-20-2024 Magnesium [Mass/Vol] 2.1 mg/dL Normal 1.6-2.6 [facility] Comment on above: Performed By: #### L 500.2500, L501.5200 ####[facility] [address] [place], [address] 12 Lead EKG performed by BMS on 03-11-2024 12 Lead EKG performed by BMS Normal [facility] Cardiology Visit Reporton Cardiology Visit Report Normal W [facility] OSMOUon 03-04-2024 U Osmolality 246 mOsm/kg Low 390-1090 [facility] ([place]) Comment on above: Performed By: #### C BC, MG, GFR, ANEU, MDW, ADIFF, DIMER, TROPHS, LIP, CMP #### [address] [address] .GFRon 03-03-2024 GFR Non- 46 ml/min/1.73sqm Normal [facility] ([place]) Comment on above: Result Comment: GFR Population mean for , Non- Americans Ages 20-29 = 116 mL/min/1.73 sq.m. Ages 30-39 = 107 mL/min/1.73 sq.m. Ages 40-49 = 99 mL/min/1.73 sq.m. Ages 50-59 = 93 mL/min/1.73 sq.m. Ages 60-69 = 85 mL/min/1.73 sq.m. Ages 70+ = 75 mL/min/1.73 sq.m. Chronic Kidney Disease: Less than 60 mL/min/1.73 square meters End Stage Renal Disease: Less than 15 mL/min/1.73 square meters Performed By: #### C BC, MG, GFR, ANEU, MDW, ADIFF, DIMER, TROPHS, LIP, CMP #### [address] [address] GFR 56 ml/min/1.73sqm Normal [facility] ([place]) Comment on above: Result Comment: GFR Population mean for , Non- Americans Ages 20-29 = 116 mL/min/1.73 sq.m. Ages 30-39 = 107 mL/min/1.73 sq.m. Ages 40-49 = 99 mL/min/1.73 sq.m. Ages 50-59 = 93 mL/min/1.73 sq.m. Ages 60-69 = 85 mL/min/1.73 sq.m. Ages 70+ = 75 mL/min/1.73 sq.m. Chronic Kidney Disease: Less than 60 mL/min/1.73 square meters End Stage Renal Disease: Less than 15 mL/min/1.73 square meters Performed By: #### C BC, MG, GFR, ANEU, MDW, ADIFF, DIMER, TROPHS, LIP, CMP #### [address] [address] BMPon 03-03-2024 BUN/Creatinine Ratio 18 ratio Normal 7-27 [facility] ([place]) Comment on above: Performed By: #### C BC, MG, GFR, ANEU, MDW, ADIFF, DIMER, TROPHS, LIP, CMP #### [address] [address] Calcium [Mass/Vol] 9.2 mg/dL Normal 8.4-10.2 [facility] ([place]) Comment on above: Performed By: #### C BC, MG, GFR, ANEU, MDW, ADIFF, DIMER, TROPHS, LIP, CMP #### [address] [address] Chloride [Moles/Vol] 100 mmol/L Normal 98-107 [facility] ([place]) Comment on above: Performed By: #### C BC, MG, GFR, ANEU, MDW, ADIFF, DIMER, TROPHS, LIP, CMP #### [address] [address] CO2 [Moles/Vol] 31 mmol/L Normal 23-31 [facility] ([place]) Comment on above: Performed By: #### C BC, MG, GFR, ANEU, MDW, ADIFF, DIMER, TROPHS, LIP, CMP #### [address] [address] Creatinine [Mass/Vol] 1.13 mg/dL High 0.55-1.02 Pending sale to [facility] ([place]) Comment on above: Performed By: #### C BC, MG, GFR, ANEU, MDW, ADIFF, DIMER, TROPHS, LIP, CMP #### [address] [address] Electrolyte Balance 7.0 mEq/L Normal 4.0-15.0 [facility] ([place]) Comment on above: Performed By: #### C BC, MG, GFR, ANEU, MDW, ADIFF, DIMER, TROPHS, LIP, CMP #### [address] [address] Glucose [Mass/Vol] 107 mg/dL Normal 83-110 [facility] ([place]) Comment on above: Performed By: #### C BC, MG, GFR, ANEU, MDW, ADIFF, DIMER, TROPHS, LIP, CMP #### [address] [address] Potassium [Moles/Vol] 5.0 mmol/L Normal 3.5-5.1 Pending sale to [facility] ([place]) Comment on above: Performed By: #### C BC, MG, GFR, ANEU, MDW, ADIFF, DIMER, TROPHS, LIP, CMP #### [address] [address] Sodium [Moles/Vol] 138 mmol/L Normal 136-145 [facility] ([place]) Comment on above: Performed By: #### C BC, MG, GFR, ANEU, MDW, ADIFF, DIMER, TROPHS, LIP, CMP #### [place] [address] Urea nitrogen [Mass/Vol] 20 mg/dL High 7-18 [facility] ([place]) Comment on above: Performed By: #### C BC, MG, GFR, ANEU, MDW, ADIFF, DIMER, TROPHS, LIP, CMP #### [place] [id number] FT3on 03-03-2024 Free T3 [Mass/Vol] 2.14 pg/mL Low 2.30-4.00 [facility] ([place]) Comment on above: Performed By: #### C BC, MG, GFR, ANEU, MDW, ADIFF, DIMER, TROPHS, LIP, CMP #### [place] [address] FT4on 03-03-2024 Free T4 [Mass/Vol] 0.84 ng/dL Normal 0.76-1.46 [facility] ([place]) Comment on above: Performed By: #### C BC, MG, GFR, ANEU, MDW, ADIFF, DIMER, TROPHS, LIP, CMP #### [address] [address] LABORATORYOrdered By: SYSTEM SYSTEM on 03-03-2024 Sodium (U) [Moles/Vol] 55 mmol/L Normal 20 - 110 mmol/L AO ADM SS Free T3 [Mass/Vol] 2.14 pg/mL Low 2.30 - 4. 00 pg/mL AO ADM SS Free T4 [Mass/Vol] 0.84 ng/dL Normal 0.76 - 1. 46 ng/dL AO ADM SS Magnesium [Mass/Vol] 2.1 mg/dL Normal 1.8 - 2 .4 mg/dL AO ADM SS Thyroglobulin Ab IA Qn 21 unit/mL Normal 15 - 60 unit/mL AH ADM SS Comment on above: Interpretive Data: * *Note - New Reference Range in effect 20 TPO Ab IA Qn 68 unit/mL High 0 - 60 unit/mL AH ADM SS Comment on above: Interpretive Data: * *Note - New Reference Range in effect 20 TSH Qn 17.88 m[IU]/L High 0.36 - 3.74 mcIU/mL AO ADM SS Calcium [Mass/Vol] 9.2 mg/dL Normal 8.4 - 10. 2 mg/dL AO ADM SS Chloride [Moles/Vol] 100 mmol/L Normal 98 - 10 7 mmol/L AO ADM SS CO2 [Moles/Vol] 31 mmol/L Normal 23 - 31 mmol/L AO ADM SS Creatinine [Mass/Vol] 1.13 mg/dL High 0.55 - 1.02 mg/dL AO ADM SS Electrolyte Balance 7.0 mEq/L Normal 4.0 - 15 .0 mEq/L AO ADM SS GFR/1.73 sq M.predicted among blacks MDRD (S/P/Bld) [Vol rate/Area] 56 ml/min/1.73sqm Invalid Interpretation Code AO Chemistry S Comment on above: Interpretive Data: GFR Population mean for , Non- Americans Ages 20-29 = 116 mL/min/1.73 sq.m. Ages 30-39 = 107 mL/min/1.73 sq.m. Ages 40-49 = 99 mL/min/1.73 sq.m. Ages 50-59 = 93 mL/min/1.73 sq.m. Ages 60-69 = 85 mL/min/1.73 sq.m. Ages 70+ = 75 mL/min/1.73 sq.m. Chronic Kidney Disease: Less than 60 mL/min/1.73 square meters End Stage Renal Disease: Less than 15 mL/min/1.73 square meters GFR/1.73 sq M.predicted among non-blacks MDRD (S/P/Bld) [Vol rate/Area] 46 ml/min/1.73sqm Invalid Interpretation Code AO Chemistry S Comment on above: Interpretive Data: GFR Population mean for , Non- Americans Ages 20-29 = 116 mL/min/1.73 sq.m. Ages 30-39 = 107 mL/min/1.73 sq.m. Ages 40-49 = 99 mL/min/1.73 sq.m. Ages 50-59 = 93 mL/min/1.73 sq.m. Ages 60-69 = 85 mL/min/1.73 sq.m. Ages 70+ = 75 mL/min/1.73 sq.m. Chronic Kidney Disease: Less than 60 mL/min/1.73 square meters End Stage Renal Disease: Less than 15 mL/min/1.73 square meters Glucose [Mass/Vol] 107 mg/dL Normal 83 - 110 mg/dL AO ADM SS Potassium [Moles/Vol] 5.0 mmol/L Normal 3.5 - 5.1 mmol/L AO ADM SS Sodium [Moles/Vol] 138 mmol/L Normal 136 - 145 mmol/L AO ADM SS Urea nitrogen [Mass/Vol] 20 mg/dL High 7 - 18 mg/dL AO ADM SS Urea nitrogen/Creatinine [Mass ratio] 18 ratio Normal 7 - 27 ratio AO ADM SS LABORATORYOrdered By: Mario Lay on 03-03-2024 Osmolality [Osmolality] 289 mosm/kg Normal 275 - 300 mOsm/kg Manual Chem SS MGon 03-03-2024 Magnesium [Mass/Vol] 2.1 mg/dL Normal 1.8-2.4 [facility] ([place]) Comment on above: Performed By: #### C BC, MG, GFR, DAVID, MDW, ADIFF, DIMER, TROPHS, LIP, CMP #### [address] [address] NAURon 03-03-2024 Sodium [Moles/Vol] 55 mmol/L Normal 20-110 [facility] ([place]) Comment on above: Performed By: #### C BC, MG, GFR, DAVID, MDW, ADIFF, DIMER, TROPHS, LIP, CMP #### [address] [address] OSMOSon 03-03-2024 Osmolality [Osmolality] 289 mosm/kg Normal 275-300 [facility] ([place]) Comment on above: Performed By: #### C BC, MG, GFR, ANEU, MDW, ADIFF, DIMER, TROPHS, LIP, CMP #### [address] [address] THYABon 03-03-2024 anti-Thyroid Peroxidase 68 units/ml High 0-60 [facility] ([place]) Comment on above: Result Comment: No te - New Reference Range in effect 20 Performed By: #### C BC, MG, GFR, ANEU, MDW, ADIFF, DIMER, TROPHS, LIP, CMP #### [address] [address] Thyroglobulin Ab 21 units/ml Normal 15-60 [facility] ([place]) Comment on above: Result Comment: No te - New Reference Range in effect 20 Performed By: #### C BC, MG, GFR, ANEU, MDW, ADIFF, DIMER, TROPHS, LIP, CMP #### [address] [address] TSHon 03-03-2024 TSH Qn 17.88 m[IU]/L High 0.36-3.74 [facility] ([place]) Comment on above: Performed By: #### C BC, MG, GFR, ANEU, MDW, ADIFF, DIMER, TROPHS, LIP, CMP #### [address] [address] .GFRon 01-30-2024 GFR 54 ml/min/1.73sqm Normal [facility] ([place]) Comment on above: Result Comment: GFR Population mean for , Non- Americans Ages 20-29 = 116 mL/min/1.73 sq.m. Ages 30-39 = 107 mL/min/1.73 sq.m. Ages 40-49 = 99 mL/min/1.73 sq.m. Ages 50-59 = 93 mL/min/1.73 sq.m. Ages 60-69 = 85 mL/min/1.73 sq.m. Ages 70+ = 75 mL/min/1.73 sq.m. Chronic Kidney Disease: Less than 60 mL/min/1.73 square meters End Stage Renal Disease: Less than 15 mL/min/1.73 square meters Performed By: #### C BC, MG, GFR, ANEU, MDW, ADIFF, DIMER, TROPHS, LIP, CMP #### [place] [id number] GFR Non- 45 ml/min/1.73sqm Normal [facility] ([place]) Comment on above: Result Comment: GFR Population mean for , Non- Americans Ages 20-29 = 116 mL/min/1.73 sq.m. Ages 30-39 = 107 mL/min/1.73 sq.m. Ages 40-49 = 99 mL/min/1.73 sq.m. Ages 50-59 = 93 mL/min/1.73 sq.m. Ages 60-69 = 85 mL/min/1.73 sq.m. Ages 70+ = 75 mL/min/1.73 sq.m. Chronic Kidney Disease: Less than 60 mL/min/1.73 square meters End Stage Renal Disease: Less than 15 mL/min/1.73 square meters Performed By: #### C BC, MG, GFR, ANEU, MDW, ADIFF, DIMER, TROPHS, LIP, CMP #### [address] [address] CMPon 01-30-2024 Albumin Level 4.4 G/dL Normal 3.4-4.8 [facility] ([place]) Comment on above: Performed By: #### C BC, MG, GFR, ANEU, MDW, ADIFF, DIMER, TROPHS, LIP, CMP #### [address] [address] Albumin/Globulin [Mass ratio] 1.4 {ratio} Normal 1.1-2.5 [facility] ([place]) Comment on above: Performed By: #### C BC, MG, GFR, ANEU, MDW, ADIFF, DIMER, TROPHS, LIP, CMP #### [address] [address] ALP [Catalytic activity/Vol] 78 U/L Normal 40-135 [facility] ([place]) Comment on above: Performed By: #### C BC, MG, GFR, ANEU, MDW, ADIFF, DIMER, TROPHS, LIP, CMP #### [address] [address] ALT [Catalytic activity/Vol] 21 U/L Normal 14-59 [facility] ([place]) Comment on above: Performed By: #### C BC, MG, GFR, ANEU, MDW, ADIFF, DIMER, TROPHS, LIP, CMP #### [address] [address] AST [Catalytic activity/Vol] 18 U/L Normal 10-40 [facility] ([place]) Comment on above: Performed By: #### C BC, MG, GFR, ANEU, MDW, ADIFF, DIMER, TROPHS, LIP, CMP #### [address] [address] Bili Total 0.4 mg/dL Normal 0.2-1.0 [facility] ([place]) Comment on above: Result Comment: Use of this assay is not recommended for patients undergoing treatment with eltrombopag due to the potential for falsely elevated results. Performed By: #### C BC, MG, GFR, ANEU, MDW, ADIFF, DIMER, TROPHS, LIP, CMP #### [address] [address] BUN/Creatinine Ratio 19 ratio Normal 7-27 [facility] ([place]) Comment on above: Performed By: #### C BC, MG, GFR, ANEU, MDW, ADIFF, DIMER, TROPHS, LIP, CMP #### [address] [address] Calcium [Mass/Vol] 9.3 mg/dL Normal 8.4-10.2 [facility] ([place]) Comment on above: Performed By: #### C BC, MG, GFR, ANEU, MDW, ADIFF, DIMER, TROPHS, LIP, CMP #### [address] [address] Chloride [Moles/Vol] 98 mmol/L Normal 98-107 [facility] ([place]) Comment on above: Performed By: #### C BC, MG, GFR, ANEU, MDW, ADIFF, DIMER, TROPHS, LIP, CMP #### [address] [address] CO2 [Moles/Vol] 27 mmol/L Normal 23-31 [facility] ([place]) Comment on above: Performed By: #### C BC, MG, GFR, ANEU, MDW, ADIFF, DIMER, TROPHS, LIP, CMP #### [address] [address] Creatinine [Mass/Vol] 1.17 mg/dL High 0.55-1.02 Pending sale to [facility] ([place]) Comment on above: Performed By: #### C BC, MG, GFR, ANEU, MDW, ADIFF, DIMER, TROPHS, LIP, CMP #### [address] [address] Electrolyte Balance 11.0 mEq/L Normal 4.0-15.0 [facility] ([place]) Comment on above: Performed By: #### C BC, MG, GFR, ANEU, MDW, ADIFF, DIMER, TROPHS, LIP, CMP #### [address] [address] Globulin 3.1 G/dL Normal [facility] ([place]) Comment on above: Performed By: #### C BC, MG, GFR, ANEU, MDW, ADIFF, DIMER, TROPHS, LIP, CMP #### [address] [address] Glucose [Mass/Vol] 86 mg/dL Normal 83-110 [facility] ([place]) Comment on above: Performed By: #### C BC, MG, GFR, ANEU, MDW, ADIFF, DIMER, TROPHS, LIP, CMP #### [address] [address] Potassium [Moles/Vol] 4.6 mmol/L Normal 3.5-5.1 Pending sale to [facility] ([place]) Comment on above: Performed By: #### C BC, MG, GFR, ANEU, MDW, ADIFF, DIMER, TROPHS, LIP, CMP #### [address] [address] Sodium [Moles/Vol] 136 mmol/L Normal 136-145 [facility] ([place]) Comment on above: Performed By: #### C BC, MG, GFR, ANEU, MDW, ADIFF, DIMER, TROPHS, LIP, CMP #### [address] [address] Total Protein 7.5 G/dL Normal 6.4-8.2 [facility] ([place]) Comment on above: Performed By: #### C BC, MG, GFR, ANEU, MDW, ADIFF, DIMER, TROPHS, LIP, CMP #### [address] [address] Urea nitrogen [Mass/Vol] 22 mg/dL High 7-18 [facility] ([place]) Comment on above: Performed By: #### C BC, MG, GFR, ANEU, MDW, ADIFF, DIMER, TROPHS, LIP, CMP #### [address] [address] MGon 01-30-2024 Magnesium [Mass/Vol] 2.0 mg/dL Normal 1.8-2.4 [facility] ([place]) Comment on above: Performed By: #### C BC, MG, GFR, ANEU, MDW, ADIFF, DIMER, TROPHS, LIP, CMP #### [address] [address] TSHon 01-30-2024 TSH Qn 29.66 m[IU]/L High 0.36-3.74 [facility] ([place]) Comment on above: Performed By: #### C BC, MG, GFR, ANEU, MDW, ADIFF, DIMER, TROPHS, LIP, CMP #### [address] [address] .GFRon 12-11-2023 GFR 55 ml/min/1.73sqm Normal [facility] ([place]) Comment on above: Result Comment: GFR Population mean for , Non- Americans Ages 20-29 = 116 mL/min/1.73 sq.m. Ages 30-39 = 107 mL/min/1.73 sq.m. Ages 40-49 = 99 mL/min/1.73 sq.m. Ages 50-59 = 93 mL/min/1.73 sq.m. Ages 60-69 = 85 mL/min/1.73 sq.m. Ages 70+ = 75 mL/min/1.73 sq.m. Chronic Kidney Disease: Less than 60 mL/min/1.73 square meters End Stage Renal Disease: Less than 15 mL/min/1.73 square meters Performed By: #### C BC, MG, GFR, ANEU, MDW, ADIFF, DIMER, TROPHS, LIP, CMP #### [address] [address] GFR Non- 45 ml/min/1.73sqm Normal [facility] ([place]) Comment on above: Result Comment: GFR Population mean for , Non- Americans Ages 20-29 = 116 mL/min/1.73 sq.m. Ages 30-39 = 107 mL/min/1.73 sq.m. Ages 40-49 = 99 mL/min/1.73 sq.m. Ages 50-59 = 93 mL/min/1.73 sq.m. Ages 60-69 = 85 mL/min/1.73 sq.m. Ages 70+ = 75 mL/min/1.73 sq.m. Chronic Kidney Disease: Less than 60 mL/min/1.73 square meters End Stage Renal Disease: Less than 15 mL/min/1.73 square meters Performed By: #### C BC, MG, GFR, ANEU, MDW, ADIFF, DIMER, TROPHS, LIP, CMP #### [address] [address] BMPon 12-11-2023 BUN/Creatinine Ratio 15 ratio Normal 7-27 [facility] ([place]) Comment on above: Performed By: #### C BC, MG, GFR, ANEU, MDW, ADIFF, DIMER, TROPHS, LIP, CMP #### [address] [address] Calcium [Mass/Vol] 9.4 mg/dL Normal 8.4-10.2 [facility] ([place]) Comment on above: Performed By: #### C BC, MG, GFR, ANEU, MDW, ADIFF, DIMER, TROPHS, LIP, CMP #### [address] [address] Chloride [Moles/Vol] 101 mmol/L Normal 98-107 [facility] ([place]) Comment on above: Performed By: #### C BC, MG, GFR, ANEU, MDW, ADIFF, DIMER, TROPHS, LIP, CMP #### [address] [address] CO2 [Moles/Vol] 31 mmol/L Normal 23-31 [facility] ([place]) Comment on above: Performed By: #### C BC, MG, GFR, ANEU, MDW, ADIFF, DIMER, TROPHS, LIP, CMP #### [address] [address] Creatinine [Mass/Vol] 1.15 mg/dL High 0.55-1.02 Pending sale to [facility] ([place]) Comment on above: Performed By: #### C BC, MG, GFR, ANEU, MDW, ADIFF, DIMER, TROPHS, LIP, CMP #### [address] [address] Electrolyte Balance 5.0 mEq/L Normal 4.0-15.0 [facility] ([place]) Comment on above: Performed By: #### C BC, MG, GFR, ANEU, MDW, ADIFF, DIMER, TROPHS, LIP, CMP #### [address] [address] Glucose [Mass/Vol] 93 mg/dL Normal 83-110 [facility] ([place]) Comment on above: Performed By: #### C BC, MG, GFR, ANEU, MDW, ADIFF, DIMER, TROPHS, LIP, CMP #### [address] [address] Potassium [Moles/Vol] 5.0 mmol/L Normal 3.5-5.1 Pending sale to [facility] ([place]) Comment on above: Performed By: #### C BC, MG, GFR, ANEU, MDW, ADIFF, DIMER, TROPHS, LIP, CMP #### [address] [address] Sodium [Moles/Vol] 137 mmol/L Normal 136-145 [facility] ([place]) Comment on above: Performed By: #### C BC, MG, GFR, ANEU, MDW, ADIFF, DIMER, TROPHS, LIP, CMP #### [address] [address] Urea nitrogen [Mass/Vol] 17 mg/dL Normal 7-18 [facility] ([place]) Comment on above: Performed By: #### C BC, MG, GFR, ANEU, MDW, ADIFF, DIMER, TROPHS, LIP, CMP #### [address] [place], [place] [address] LABORATORYOrdered By: SYSTEM SYSTEM on 12-11-2023 Calcium [Mass/Vol] 9.4 mg/dL Normal 8.4 - 10. 2 mg/dL AO ADM SS Chloride [Moles/Vol] 101 mmol/L Normal 98 - 10 7 mmol/L AO ADM SS CO2 [Moles/Vol] 31 mmol/L Normal 23 - 31 mmol/L AO ADM SS Creatinine [Mass/Vol] 1.15 mg/dL High 0.55 - 1.02 mg/dL AO ADM SS Electrolyte Balance 5.0 mEq/L Normal 4.0 - 15 .0 mEq/L AO ADM SS GFR/1.73 sq M.predicted among blacks MDRD (S/P/Bld) [Vol rate/Area] 55 ml/min/1.73sqm Invalid Interpretation Code AO Chemistry S Comment on above: Interpretive Data: GFR Population mean for , Non- Americans Ages 20-29 = 116 mL/min/1.73 sq.m. Ages 30-39 = 107 mL/min/1.73 sq.m. Ages 40-49 = 99 mL/min/1.73 sq.m. Ages 50-59 = 93 mL/min/1.73 sq.m. Ages 60-69 = 85 mL/min/1.73 sq.m. Ages 70+ = 75 mL/min/1.73 sq.m. Chronic Kidney Disease: Less than 60 mL/min/1.73 square meters End Stage Renal Disease: Less than 15 mL/min/1.73 square meters GFR/1.73 sq M.predicted among non-blacks MDRD (S/P/Bld) [Vol rate/Area] 45 ml/min/1.73sqm Invalid Interpretation Code AO Chemistry S Comment on above: Interpretive Data: GFR Population mean for , Non- Americans Ages 20-29 = 116 mL/min/1.73 sq.m. Ages 30-39 = 107 mL/min/1.73 sq.m. Ages 40-49 = 99 mL/min/1.73 sq.m. Ages 50-59 = 93 mL/min/1.73 sq.m. Ages 60-69 = 85 mL/min/1.73 sq.m. Ages 70+ = 75 mL/min/1.73 sq.m. Chronic Kidney Disease: Less than 60 mL/min/1.73 square meters End Stage Renal Disease: Less than 15 mL/min/1.73 square meters Glucose [Mass/Vol] 93 mg/dL Normal 83 - 110 mg/dL AO ADM SS Potassium [Moles/Vol] 5.0 mmol/L Normal 3.5 - 5.1 mmol/L AO ADM SS Sodium [Moles/Vol] 137 mmol/L Normal 136 - 145 mmol/L AO ADM SS Urea nitrogen [Mass/Vol] 17 mg/dL Normal 7 - 18 mg/dL AO ADM SS Urea nitrogen/Creatinine [Mass ratio] 15 ratio Normal 7 - 27 ratio AO ADM SS .GFRon 12-04-2023 GFR 54 ml/min/1.73sqm Normal [facility] ([place]) Comment on above: Result Comment: GFR Population mean for , Non- Americans Ages 20-29 = 116 mL/min/1.73 sq.m. Ages 30-39 = 107 mL/min/1.73 sq.m. Ages 40-49 = 99 mL/min/1.73 sq.m. Ages 50-59 = 93 mL/min/1.73 sq.m. Ages 60-69 = 85 mL/min/1.73 sq.m. Ages 70+ = 75 mL/min/1.73 sq.m. Chronic Kidney Disease: Less than 60 mL/min/1.73 square meters End Stage Renal Disease: Less than 15 mL/min/1.73 square meters Performed By: #### C BC, MG, GFR, ANEU, MDW, ADIFF, DIMER, TROPHS, LIP, CMP #### [address] [address] GFR Non- 45 ml/min/1.73sqm Normal [facility] ([place]) Comment on above: Result Comment: GFR Population mean for , Non- Americans Ages 20-29 = 116 mL/min/1.73 sq.m. Ages 30-39 = 107 mL/min/1.73 sq.m. Ages 40-49 = 99 mL/min/1.73 sq.m. Ages 50-59 = 93 mL/min/1.73 sq.m. Ages 60-69 = 85 mL/min/1.73 sq.m. Ages 70+ = 75 mL/min/1.73 sq.m. Chronic Kidney Disease: Less than 60 mL/min/1.73 square meters End Stage Renal Disease: Less than 15 mL/min/1.73 square meters Performed By: #### C BC, MG, GFR, ANEU, MDW, ADIFF, DIMER, TROPHS, LIP, CMP #### [address] [address] BMPon 12-04-2023 BUN/Creatinine Ratio 18 ratio Normal 7-27 [facility] ([place]) Comment on above: Performed By: #### C BC, MG, GFR, ANEU, MDW, ADIFF, DIMER, TROPHS, LIP, CMP #### [address] [address] Calcium [Mass/Vol] 9.8 mg/dL Normal 8.4-10.2 [facility] ([place]) Comment on above: Performed By: #### C BC, MG, GFR, ANEU, MDW, ADIFF, DIMER, TROPHS, LIP, CMP #### [address] [address] Chloride [Moles/Vol] 100 mmol/L Normal 98-107 [facility] ([place]) Comment on above: Performed By: #### C BC, MG, GFR, ANEU, MDW, ADIFF, DIMER, TROPHS, LIP, CMP #### [address] [address] CO2 [Moles/Vol] 29 mmol/L Normal 23-31 [facility] ([place]) Comment on above: Performed By: #### C BC, MG, GFR, ANEU, MDW, ADIFF, DIMER, TROPHS, LIP, CMP #### [address] [address] Creatinine [Mass/Vol] 1.16 mg/dL High 0.55-1.02 Pending sale to [facility] ([place]) Comment on above: Performed By: #### C BC, MG, GFR, ANEU, MDW, ADIFF, DIMER, TROPHS, LIP, CMP #### [address] [address] Electrolyte Balance 8.0 mEq/L Normal 4.0-15.0 [facility] ([place]) Comment on above: Performed By: #### C BC, MG, GFR, ANEU, MDW, ADIFF, DIMER, TROPHS, LIP, CMP #### [address] [address] Glucose [Mass/Vol] 111 mg/dL High 83-110 [facility] ([place]) Comment on above: Performed By: #### C BC, MG, GFR, ANEU, MDW, ADIFF, DIMER, TROPHS, LIP, CMP #### [address] [address] Potassium [Moles/Vol] 4.2 mmol/L Normal 3.5-5.1 Pending sale to [facility] ([place]) Comment on above: Performed By: #### C BC, MG, GFR, ANEU, MDW, ADIFF, DIMER, TROPHS, LIP, CMP #### [address] [address] Sodium [Moles/Vol] 137 mmol/L Normal 136-145 [facility] ([place]) Comment on above: Performed By: #### C BC, MG, GFR, ANEU, MDW, ADIFF, DIMER, TROPHS, LIP, CMP #### [address] [address] Urea nitrogen [Mass/Vol] 21 mg/dL High 7-18 [facility] ([place]) Comment on above: Performed By: #### C BC, MG, GFR, ANEU, MDW, ADIFF, DIMER, TROPHS, LIP, CMP #### [place] [address] LABORATORYOrdered By: Juliet Celeste on 12-04-2023 Albumin DL <= 20 mg/L (U) [Mass/Vol] 870 mcg/dL Invalid Interpretation Code AO ADM SS Albumin/Creatinine DL <= 20 mg/L (U) [Mass ratio] 46 mcg/mg High 0 - 30 mcg/mg AO ADM SS Creatinine (U) [Mass/Vol] 18.9 mg/dL Low 28.0 - 117.0 mg/dL AO ADM SS LABORATORYOrdered By: SYSTEM SYSTEM on 12-04-2023 Calcium [Mass/Vol] 9.8 mg/dL Normal 8.4 - 10. 2 mg/dL AO ADM SS Chloride [Moles/Vol] 100 mmol/L Normal 98 - 10 7 mmol/L AO ADM SS CO2 [Moles/Vol] 29 mmol/L Normal 23 - 31 mmol/L AO ADM SS Creatinine [Mass/Vol] 1.16 mg/dL High 0.55 - 1.02 mg/dL AO ADM SS Electrolyte Balance 8.0 mEq/L Normal 4.0 - 15 .0 mEq/L AO ADM SS GFR/1.73 sq M.predicted among blacks MDRD (S/P/Bld) [Vol rate/Area] 54 ml/min/1.73sqm Invalid Interpretation Code AO Chemistry S Comment on above: Interpretive Data: GFR Population mean for , Non- Americans Ages 20-29 = 116 mL/min/1.73 sq.m. Ages 30-39 = 107 mL/min/1.73 sq.m. Ages 40-49 = 99 mL/min/1.73 sq.m. Ages 50-59 = 93 mL/min/1.73 sq.m. Ages 60-69 = 85 mL/min/1.73 sq.m. Ages 70+ = 75 mL/min/1.73 sq.m. Chronic Kidney Disease: Less than 60 mL/min/1.73 square meters End Stage Renal Disease: Less than 15 mL/min/1.73 square meters GFR/1.73 sq M.predicted among non-blacks MDRD (S/P/Bld) [Vol rate/Area] 45 ml/min/1.73sqm Invalid Interpretation Code AO Chemistry S Comment on above: Interpretive Data: GFR Population mean for , Non- Americans Ages 20-29 = 116 mL/min/1.73 sq.m. Ages 30-39 = 107 mL/min/1.73 sq.m. Ages 40-49 = 99 mL/min/1.73 sq.m. Ages 50-59 = 93 mL/min/1.73 sq.m. Ages 60-69 = 85 mL/min/1.73 sq.m. Ages 70+ = 75 mL/min/1.73 sq.m. Chronic Kidney Disease: Less than 60 mL/min/1.73 square meters End Stage Renal Disease: Less than 15 mL/min/1.73 square meters Glucose [Mass/Vol] 111 mg/dL High 83 - 110 mg/dL AO ADM SS Potassium [Moles/Vol] 4.2 mmol/L Normal 3.5 - 5.1 mmol/L AO ADM SS Sodium [Moles/Vol] 137 mmol/L Normal 136 - 145 mmol/L AO ADM SS Urea nitrogen [Mass/Vol] 21 mg/dL High 7 - 18 mg/dL AO ADM SS Urea nitrogen/Creatinine [Mass ratio] 18 ratio Normal 7 - 27 ratio AO ADM SS MALBRon 12-04-2023 U Creatinine 18.9 mg/dL Low 28.0-117.0 [facility] ([place]) Comment on above: Performed By: #### C BC, MG, GFR, ANEU, MDW, ADIFF, DIMER, TROPHS, LIP, CMP #### [address] [address] U Microalb 870 mcg/dL Normal [facility] ([place]) Comment on above: Performed By: #### C BC, MG, GFR, ANEU, MDW, ADIFF, DIMER, TROPHS, LIP, CMP #### [address] [address] U Ratio Alb/Cre 46 mcg/mg High 0-30 [facility] ([place]) Comment on above: Performed By: #### C BC, MG, GFR, ANEU, MDW, ADIFF, DIMER, TROPHS, LIP, CMP #### [address] [address] .GFRon 10-10-2023 GFR 57 ml/min/1.73sqm Normal [facility] ([place]) Comment on above: Result Comment: GFR Population mean for , Non- Americans Ages 20-29 = 116 mL/min/1.73 sq.m. Ages 30-39 = 107 mL/min/1.73 sq.m. Ages 40-49 = 99 mL/min/1.73 sq.m. Ages 50-59 = 93 mL/min/1.73 sq.m. Ages 60-69 = 85 mL/min/1.73 sq.m. Ages 70+ = 75 mL/min/1.73 sq.m. Chronic Kidney Disease: Less than 60 mL/min/1.73 square meters End Stage Renal Disease: Less than 15 mL/min/1.73 square meters Performed By: #### C BC, MG, GFR, ANEU, MDW, ADIFF, DIMER, TROPHS, LIP, CMP #### [address] [address] GFR Non- 47 ml/min/1.73sqm Normal [facility] ([place]) Comment on above: Result Comment: GFR Population mean for , Non- Americans Ages 20-29 = 116 mL/min/1.73 sq.m. Ages 30-39 = 107 mL/min/1.73 sq.m. Ages 40-49 = 99 mL/min/1.73 sq.m. Ages 50-59 = 93 mL/min/1.73 sq.m. Ages 60-69 = 85 mL/min/1.73 sq.m. Ages 70+ = 75 mL/min/1.73 sq.m. Chronic Kidney Disease: Less than 60 mL/min/1.73 square meters End Stage Renal Disease: Less than 15 mL/min/1.73 square meters Performed By: #### C BC, MG, GFR, ANEU, MDW, ADIFF, DIMER, TROPHS, LIP, CMP #### [address] [address] BMPon 10-10-2023 BUN/Creatinine Ratio 15 ratio Normal 7- [facility] ([place]) Comment on above: Performed By: #### C BC, MG, GFR, ANEU, MDW, ADIFF, DIMER, TROPHS, LIP, CMP #### [address] [address] Calcium [Mass/Vol] 9.1 mg/dL Normal 8.4-10.2 [facility] ([place]) Comment on above: Performed By: #### C BC, MG, GFR, ANEU, MDW, ADIFF, DIMER, TROPHS, LIP, CMP #### [address] [address] Chloride [Moles/Vol] 100 mmol/L Normal 98-107 [facility] ([place]) Comment on above: Performed By: #### C BC, MG, GFR, ANEU, MDW, ADIFF, DIMER, TROPHS, LIP, CMP #### [address] [address] CO2 [Moles/Vol] 28 mmol/L Normal 23-31 [facility] ([place]) Comment on above: Performed By: #### C BC, MG, GFR, ANEU, MDW, ADIFF, DIMER, TROPHS, LIP, CMP #### [address] [address] Creatinine [Mass/Vol] 1.11 mg/dL High 0.55-1.02 Pending sale to [facility] ([place]) Comment on above: Performed By: #### C BC, MG, GFR, ANEU, MDW, ADIFF, DIMER, TROPHS, LIP, CMP #### [address] [address] Electrolyte Balance 9.0 mEq/L Normal 4.0-15.0 [facility] ([place]) Comment on above: Performed By: #### C BC, MG, GFR, ANEU, MDW, ADIFF, DIMER, TROPHS, LIP, CMP #### [address] [address] Glucose [Mass/Vol] 138 mg/dL High 83-110 [facility] ([place]) Comment on above: Performed By: #### C BC, MG, GFR, ANEU, MDW, ADIFF, DIMER, TROPHS, LIP, CMP #### [address] [address] Potassium [Moles/Vol] 4.4 mmol/L Normal 3.5-5.1 Pending sale to [facility] ([place]) Comment on above: Performed By: #### C BC, MG, GFR, ANEU, MDW, ADIFF, DIMER, TROPHS, LIP, CMP #### [address] [address] Sodium [Moles/Vol] 137 mmol/L Normal 136-145 [facility] ([place]) Comment on above: Performed By: #### C BC, MG, GFR, ANEU, MDW, ADIFF, DIMER, TROPHS, LIP, CMP #### [address] [address] Urea nitrogen [Mass/Vol] 17 mg/dL Normal 7-18 [facility] ([place]) Comment on above: Performed By: #### C BC, MG, GFR, ANEU, MDW, ADIFF, DIMER, TROPHS, LIP, CMP #### [address] [address] LABORATORYOrdered By: SYSTEM SYSTEM on 10-10-2023 Calcium [Mass/Vol] 9.1 mg/dL Normal 8.4 - 10. 2 mg/dL AO ADM SS Chloride [Moles/Vol] 100 mmol/L Normal 98 - 10 7 mmol/L AO ADM SS CO2 [Moles/Vol] 28 mmol/L Normal 23 - 31 mmol/L AO ADM SS Creatinine [Mass/Vol] 1.11 mg/dL High 0.55 - 1.02 mg/dL AO ADM SS Electrolyte Balance 9.0 mEq/L Normal 4.0 - 15 .0 mEq/L AO ADM SS GFR/1.73 sq M.predicted among blacks MDRD (S/P/Bld) [Vol rate/Area] 57 ml/min/1.73sqm Invalid Interpretation Code AO Chemistry S Comment on above: Interpretive Data: GFR Population mean for , Non- Americans Ages 20-29 = 116 mL/min/1.73 sq.m. Ages 30-39 = 107 mL/min/1.73 sq.m. Ages 40-49 = 99 mL/min/1.73 sq.m. Ages 50-59 = 93 mL/min/1.73 sq.m. Ages 60-69 = 85 mL/min/1.73 sq.m. Ages 70+ = 75 mL/min/1.73 sq.m. Chronic Kidney Disease: Less than 60 mL/min/1.73 square meters End Stage Renal Disease: Less than 15 mL/min/1.73 square meters GFR/1.73 sq M.predicted among non-blacks MDRD (S/P/Bld) [Vol rate/Area] 47 ml/min/1.73sqm Invalid Interpretation Code AO Chemistry S Comment on above: Interpretive Data: GFR Population mean for , Non- Americans Ages 20-29 = 116 mL/min/1.73 sq.m. Ages 30-39 = 107 mL/min/1.73 sq.m. Ages 40-49 = 99 mL/min/1.73 sq.m. Ages 50-59 = 93 mL/min/1.73 sq.m. Ages 60-69 = 85 mL/min/1.73 sq.m. Ages 70+ = 75 mL/min/1.73 sq.m. Chronic Kidney Disease: Less than 60 mL/min/1.73 square meters End Stage Renal Disease: Less than 15 mL/min/1.73 square meters Glucose [Mass/Vol] 138 mg/dL High 83 - 110 mg/dL AO ADM SS Potassium [Moles/Vol] 4.4 mmol/L Normal 3.5 - 5.1 mmol/L AO ADM SS Sodium [Moles/Vol] 137 mmol/L Normal 136 - 145 mmol/L AO ADM SS Urea nitrogen [Mass/Vol] 17 mg/dL Normal 7 - 18 mg/dL AO ADM SS Urea nitrogen/Creatinine [Mass ratio] 15 ratio Normal 7 - 27 ratio AO ADM SS .GFRon 09-13-2023 GFR 62 ml/min/1.73sqm Normal [facility] ([place]) Comment on above: Result Comment: GFR Population mean for , Non- Americans Ages 20-29 = 116 mL/min/1.73 sq.m. Ages 30-39 = 107 mL/min/1.73 sq.m. Ages 40-49 = 99 mL/min/1.73 sq.m. Ages 50-59 = 93 mL/min/1.73 sq.m. Ages 60-69 = 85 mL/min/1.73 sq.m. Ages 70+ = 75 mL/min/1.73 sq.m. Chronic Kidney Disease: Less than 60 mL/min/1.73 square meters End Stage Renal Disease: Less than 15 mL/min/1.73 square meters Performed By: #### C BC, MG, GFR, ANEU, MDW, ADIFF, DIMER, TROPHS, LIP, CMP #### [address] [address] GFR Non- 51 ml/min/1.73sqm Normal [facility] ([place]) Comment on above: Result Comment: GFR Population mean for , Non- Americans Ages 20-29 = 116 mL/min/1.73 sq.m. Ages 30-39 = 107 mL/min/1.73 sq.m. Ages 40-49 = 99 mL/min/1.73 sq.m. Ages 50-59 = 93 mL/min/1.73 sq.m. Ages 60-69 = 85 mL/min/1.73 sq.m. Ages 70+ = 75 mL/min/1.73 sq.m. Chronic Kidney Disease: Less than 60 mL/min/1.73 square meters End Stage Renal Disease: Less than 15 mL/min/1.73 square meters Performed By: #### C BC, MG, GFR, ANEU, MDW, ADIFF, DIMER, TROPHS, LIP, CMP #### [address] [address] [facility] BUN/Creatinine Ratio 14 ratio Normal 7-27 [facility] ([place]) Comment on above: Performed By: #### C BC, MG, GFR, ANEU, MDW, ADIFF, DIMER, TROPHS, LIP, CMP #### [address] [address] Calcium [Mass/Vol] 9.3 mg/dL Normal 8.4-10.2 [facility] ([place]) Comment on above: Performed By: #### C BC, MG, GFR, ANEU, MDW, ADIFF, DIMER, TROPHS, LIP, CMP #### [address] [address] Chloride [Moles/Vol] 98 mmol/L Normal 98-107 [facility] ([place]) Comment on above: Performed By: #### C BC, MG, GFR, ANEU, MDW, ADIFF, DIMER, TROPHS, LIP, CMP #### [address] [address] CO2 [Moles/Vol] 28 mmol/L Normal 23-31 [facility] ([place]) Comment on above: Performed By: #### C BC, MG, GFR, ANEU, MDW, ADIFF, DIMER, TROPHS, LIP, CMP #### [address] [address] Creatinine [Mass/Vol] 1.04 mg/dL High 0.55-1.02 Pending sale to [facility] ([place]) Comment on above: Performed By: #### C BC, MG, GFR, ANEU, MDW, ADIFF, DIMER, TROPHS, LIP, CMP #### [address] [address] Electrolyte Balance 12.0 mEq/L Normal 4.0-15.0 [facility] ([place]) Comment on above: Performed By: #### C BC, MG, GFR, ANEU, MDW, ADIFF, DIMER, TROPHS, LIP, CMP #### [address] [address] Glucose [Mass/Vol] 107 mg/dL Normal 83-110 [facility] ([place]) Comment on above: Performed By: #### C BC, MG, GFR, ANEU, MDW, ADIFF, DIMER, TROPHS, LIP, CMP #### [address] [address] Potassium [Moles/Vol] 4.5 mmol/L Normal 3.5-5.1 Pending sale to [facility] ([place]) Comment on above: Performed By: #### C BC, MG, GFR, ANEU, MDW, ADIFF, DIMER, TROPHS, LIP, CMP #### [address] [address] Sodium [Moles/Vol] 138 mmol/L Normal 136-145 [facility] ([place]) Comment on above: Performed By: #### C BC, MG, GFR, ANEU, MDW, ADIFF, DIMER, TROPHS, LIP, CMP #### [address] [place], [place] [address] Urea nitrogen [Mass/Vol] 15 mg/dL Normal 7-18 [facility] ([place]) Comment on above: Performed By: #### C BC, MG, GFR, ANEU, MDW, ADIFF, DIMER, TROPHS, LIP, CMP #### [address] [address] .GFRon 09-11-2023 GFR Non- 53 ml/min/1.73sqm Normal [facility] ([place]) Comment on above: Result Comment: GFR Population mean for , Non- Americans Ages 20-29 = 116 mL/min/1.73 sq.m. Ages 30-39 = 107 mL/min/1.73 sq.m. Ages 40-49 = 99 mL/min/1.73 sq.m. Ages 50-59 = 93 mL/min/1.73 sq.m. Ages 60-69 = 85 mL/min/1.73 sq.m. Ages 70+ = 75 mL/min/1.73 sq.m. Chronic Kidney Disease: Less than 60 mL/min/1.73 square meters End Stage Renal Disease: Less than 15 mL/min/1.73 square meters Performed By: #### C BC, MG, GFR, ANEU, MDW, ADIFF, DIMER, TROPHS, LIP, CMP #### [address] [address] GFR 64 ml/min/1.73sqm Normal [facility] ([place]) Comment on above: Result Comment: GFR Population mean for , Non- Americans Ages 20-29 = 116 mL/min/1.73 sq.m. Ages 30-39 = 107 mL/min/1.73 sq.m. Ages 40-49 = 99 mL/min/1.73 sq.m. Ages 50-59 = 93 mL/min/1.73 sq.m. Ages 60-69 = 85 mL/min/1.73 sq.m. Ages 70+ = 75 mL/min/1.73 sq.m. Chronic Kidney Disease: Less than 60 mL/min/1.73 square meters End Stage Renal Disease: Less than 15 mL/min/1.73 square meters Performed By: #### C BC, MG, GFR, ANEU, MDW, ADIFF, DIMER, TROPHS, LIP, CMP #### [address] [address] CMPon 09-11-2023 Albumin Level 4.2 G/dL Normal 3.4-4.8 [facility] ([place]) Comment on above: Performed By: #### C BC, MG, GFR, ANEU, MDW, ADIFF, DIMER, TROPHS, LIP, CMP #### [address] [address] Albumin/Globulin [Mass ratio] 1.3 {ratio} Normal 1.1-2.5 [facility] ([place]) Comment on above: Performed By: #### C BC, MG, GFR, ANEU, MDW, ADIFF, DIMER, TROPHS, LIP, CMP #### [address] [address] ALP [Catalytic activity/Vol] 82 U/L Normal 40-135 [facility] ([place]) Comment on above: Performed By: #### C BC, MG, GFR, ANEU, MDW, ADIFF, DIMER, TROPHS, LIP, CMP #### [address] [address] ALT [Catalytic activity/Vol] 21 U/L Normal 14-59 [facility] ([place]) Comment on above: Performed By: #### C BC, MG, GFR, ANEU, MDW, ADIFF, DIMER, TROPHS, LIP, CMP #### [address] [address] AST [Catalytic activity/Vol] 15 U/L Normal 10-40 [facility] ([place]) Comment on above: Performed By: #### C BC, MG, GFR, ANEU, MDW, ADIFF, DIMER, TROPHS, LIP, CMP #### [address] [address] Bili Total 0.3 mg/dL Normal 0.2-1.0 [facility] ([place]) Comment on above: Result Comment: Use of this assay is not recommended for patients undergoing treatment with eltrombopag due to the potential for falsely elevated results. Performed By: #### C BC, MG, GFR, ANEU, MDW, ADIFF, DIMER, TROPHS, LIP, CMP #### [address] [address] BUN/Creatinine Ratio 15 ratio Normal 7-27 [facility] ([place]) Comment on above: Performed By: #### C BC, MG, GFR, ANEU, MDW, ADIFF, DIMER, TROPHS, LIP, CMP #### [address] [address] Calcium [Mass/Vol] 9.5 mg/dL Normal 8.4-10.2 [facility] ([place]) Comment on above: Performed By: #### C BC, MG, GFR, ANEU, MDW, ADIFF, DIMER, TROPHS, LIP, CMP #### [address] [address] Chloride [Moles/Vol] 96 mmol/L Low 98-107 [facility] ([place]) Comment on above: Performed By: #### C BC, MG, GFR, ANEU, MDW, ADIFF, DIMER, TROPHS, LIP, CMP #### [address] [address] CO2 [Moles/Vol] 31 mmol/L Normal 23-31 [facility] ([place]) Comment on above: Performed By: #### C BC, MG, GFR, ANEU, MDW, ADIFF, DIMER, TROPHS, LIP, CMP #### [address] [address] Creatinine [Mass/Vol] 1.01 mg/dL Normal 0.55-1.02 Pending sale to [facility] ([place]) Comment on above: Performed By: #### C BC, MG, GFR, ANEU, MDW, ADIFF, DIMER, TROPHS, LIP, CMP #### [address] [address] Electrolyte Balance 7.0 mEq/L Normal 4.0-15.0 [facility] ([place]) Comment on above: Performed By: #### C BC, MG, GFR, ANEU, MDW, ADIFF, DIMER, TROPHS, LIP, CMP #### [address] [address] Globulin 3.2 G/dL Normal [facility] ([place]) Comment on above: Performed By: #### C BC, MG, GFR, ANEU, MDW, ADIFF, DIMER, TROPHS, LIP, CMP #### [address] [address] Glucose [Mass/Vol] 107 mg/dL Normal 83-110 [facility] ([place]) Comment on above: Performed By: #### C BC, MG, GFR, ANEU, MDW, ADIFF, DIMER, TROPHS, LIP, CMP #### [address] [address] Potassium [Moles/Vol] 5.5 mmol/L High 3.5-5.1 Pending sale to [facility] ([place]) Comment on above: Performed By: #### C BC, MG, GFR, ANEU, MDW, ADIFF, DIMER, TROPHS, LIP, CMP #### [address] [address] Sodium [Moles/Vol] 134 mmol/L Low 136-145 [facility] ([place]) Comment on above: Performed By: #### C BC, MG, GFR, ANEU, MDW, ADIFF, DIMER, TROPHS, LIP, CMP #### [address] [address] Total Protein 7.4 G/dL Normal 6.4-8.2 [facility] ([place]) Comment on above: Performed By: #### C BC, MG, GFR, ANEU, MDW, ADIFF, DIMER, TROPHS, LIP, CMP #### [address] [address] Urea nitrogen [Mass/Vol] 15 mg/dL Normal 7-18 [facility] ([place]) Comment on above: Performed By: #### C BC, MG, GFR, ANEU, MDW, ADIFF, DIMER, TROPHS, LIP, CMP #### [address] [address] .Auto Diffon 09-02-2023 Basophil, Absolute 0.0 10 3/mcL Normal 0.0-0.2 [facility] ([place]) Comment on above: Performed By: #### C BC, MG, GFR, ANEU, MDW, ADIFF, DIMER, TROPHS, LIP, CMP #### [address] [address] Basophils/100 WBC (Bld) 0.4 % Normal 0.0-2.5 A Counts include 234 beds at the [facility] ([place]) Comment on above: Performed By: #### C BC, MG, GFR, ANEU, MDW, ADIFF, DIMER, TROPHS, LIP, CMP #### [address] [address] Eosinophil, Absolute 0.1 10 3/mcL Normal 0.0-0.4 [facility] ([place]) Comment on above: Performed By: #### C BC, MG, GFR, ANEU, MDW, ADIFF, DIMER, TROPHS, LIP, CMP #### [address] [address] Eosinophils/100 WBC (Bld) 1.4 % Normal 0.0-7.0 [facility] ([place]) Comment on above: Performed By: #### C BC, MG, GFR, ANEU, MDW, ADIFF, DIMER, TROPHS, LIP, CMP #### [address] [address] Lymphocyte, Absolute 0.9 10 3/mcL Normal 0.8-3.9 [facility] ([place]) Comment on above: Performed By: #### C BC, MG, GFR, ANEU, MDW, ADIFF, DIMER, TROPHS, LIP, CMP #### [address] [address] Lymphocytes/100 WBC (Bld) 15.7 % Normal 10.0-50.0 [facility] ([place]) Comment on above: Performed By: #### C BC, MG, GFR, ANEU, MDW, ADIFF, DIMER, TROPHS, LIP, CMP #### [address] [address] Monocyte, Absolute 0.4 10 3/mcL Normal 0.2-1.0 [facility] ([place]) Comment on above: Performed By: #### C BC, MG, GFR, ANEU, MDW, ADIFF, DIMER, TROPHS, LIP, CMP #### [address] [address] Monocytes/100 WBC (Bld) 7.9 % Normal 1.7-13.0 [facility] ([place]) Comment on above: Performed By: #### C BC, MG, GFR, ANEU, MDW, ADIFF, DIMER, TROPHS, LIP, CMP #### [address] [address] Neutrophils/100 WBC (Bld) 74.6 % Normal 37.0-80.0 [facility] ([place]) Comment on above: Performed By: #### C BC, MG, GFR, ANEU, MDW, ADIFF, DIMER, TROPHS, LIP, CMP #### [address] [address] .GFRon 09-02-2023 GFR 70 ml/min/1.73sqm Normal [facility] ([place]) Comment on above: Result Comment: GFR Population mean for , Non- Americans Ages 20-29 = 116 mL/min/1.73 sq.m. Ages 30-39 = 107 mL/min/1.73 sq.m. Ages 40-49 = 99 mL/min/1.73 sq.m. Ages 50-59 = 93 mL/min/1.73 sq.m. Ages 60-69 = 85 mL/min/1.73 sq.m. Ages 70+ = 75 mL/min/1.73 sq.m. Chronic Kidney Disease: Less than 60 mL/min/1.73 square meters End Stage Renal Disease: Less than 15 mL/min/1.73 square meters Performed By: #### C BC, MG, GFR, ANEU, MDW, ADIFF, DIMER, TROPHS, LIP, CMP #### [address] [address] GFR Non- 58 ml/min/1.73sqm Normal [facility] ([place]) Comment on above: Result Comment: GFR Population mean for , Non- Americans Ages 20-29 = 116 mL/min/1.73 sq.m. Ages 30-39 = 107 mL/min/1.73 sq.m. Ages 40-49 = 99 mL/min/1.73 sq.m. Ages 50-59 = 93 mL/min/1.73 sq.m. Ages 60-69 = 85 mL/min/1.73 sq.m. Ages 70+ = 75 mL/min/1.73 sq.m. Chronic Kidney Disease: Less than 60 mL/min/1.73 square meters End Stage Renal Disease: Less than 15 mL/min/1.73 square meters Performed By: #### C BC, MG, GFR, ANEU, MDW, ADIFF, DIMER, TROPHS, LIP, CMP #### [place] [id number] .MDWon 09-02-2023 Monocyte Distribution Width 16.32 Normal 0.00-20.00 [facility] ([place]) Comment on above: Result Comment: For ED adult patients suspected of sepsis, MDW<=20.0 does not rule out sepsis or risk of sepsis Performed By: #### C BC, MG, GFR, ANEU, MDW, ADIFF, DIMER, TROPHS, LIP, CMP #### [address] [address] .NEUABSon 09-02-2023 Neutrophil, Absolute 4.2 10 3/mcL Normal 2.9-6.2 [facility] ([place]) Comment on above: Performed By: #### C BC, MG, GFR, ANEU, MDW, ADIFF, DIMER, TROPHS, LIP, CMP #### [address] [address] .Urinalysis Microscopic (AO) on 09-02-2023 UA RBC None Seen Normal None Seen [facility] ([place]) Comment on above: Performed By: #### U A, UAMICAO ####[facility] [place], [place] [address] UA Squam Epithelial 0-5 Abnormal None Seen [facility] ([place]) Comment on above: Performed By: #### U A, UAMICAO ####[place] [address] [place], [place] [address] UA WBC 0-5 Abnormal None Seen [facility] ([place]) Comment on above: Performed By: #### U A, UAMICAO ####[place] [address] [place], [place] [address] BMPon 09-02-2023 BUN/Creatinine Ratio 14 ratio Normal 7-27 [facility] ([place]) Comment on above: Performed By: #### C BC, MG, GFR, ANEU, MDW, ADIFF, DIMER, TROPHS, LIP, CMP #### [address] [address] Calcium [Mass/Vol] 9.3 mg/dL Normal 8.4-10.2 [facility] ([place]) Comment on above: Performed By: #### C BC, MG, GFR, ANEU, MDW, ADIFF, DIMER, TROPHS, LIP, CMP #### [address] [address] Chloride [Moles/Vol] 101 mmol/L Normal 98-107 [facility] ([place]) Comment on above: Performed By: #### C BC, MG, GFR, ANEU, MDW, ADIFF, DIMER, TROPHS, LIP, CMP #### [address] [address] CO2 [Moles/Vol] 27 mmol/L Normal 23-31 [facility] ([place]) Comment on above: Performed By: #### C BC, MG, GFR, ANEU, MDW, ADIFF, DIMER, TROPHS, LIP, CMP #### [address] [address] Creatinine [Mass/Vol] 0.93 mg/dL Normal 0.55-1.02 Pending sale to [facility] ([place]) Comment on above: Performed By: #### C BC, MG, GFR, ANEU, MDW, ADIFF, DIMER, TROPHS, LIP, CMP #### [address] [address] Electrolyte Balance 11.0 mEq/L Normal 4.0-15.0 [facility] ([place]) Comment on above: Performed By: #### C BC, MG, GFR, ANEU, MDW, ADIFF, DIMER, TROPHS, LIP, CMP #### [place] [address] Glucose [Mass/Vol] 101 mg/dL Normal 83-110 [facility] ([place]) Comment on above: Performed By: #### C BC, MG, GFR, ANEU, MDW, ADIFF, DIMER, TROPHS, LIP, CMP #### [address] [address] Potassium [Moles/Vol] 4.4 mmol/L Normal 3.5-5.1 Pending sale to [facility] ([place]) Comment on above: Performed By: #### C BC, MG, GFR, ANEU, MDW, ADIFF, DIMER, TROPHS, LIP, CMP #### [address] [address] Sodium [Moles/Vol] 139 mmol/L Normal 136-145 [facility] ([place]) Comment on above: Performed By: #### C BC, MG, GFR, ANEU, MDW, ADIFF, DIMER, TROPHS, LIP, CMP #### [place] [address] Urea nitrogen [Mass/Vol] 13 mg/dL Normal 7-18 [facility] ([place]) Comment on above: Performed By: #### C BC, MG, GFR, ANEU, MDW, ADIFF, DIMER, TROPHS, LIP, CMP #### [address] [place] [address] CBCon 09-02-2023 Erythrocyte distribution width (RBC) [Ratio] 14.5 % Normal 11.5-14.5 [facility] ([place]) Comment on above: Performed By: #### C BC, MG, GFR, ANEU, MDW, ADIFF, DIMER, TROPHS, LIP, CMP #### [place] [address] Hematocrit (Bld) [Volume fraction] 37.5 % Normal 37.0-47.0 [facility] ([place]) Comment on above: Performed By: #### C BC, MG, GFR, ANEU, MDW, ADIFF, DIMER, TROPHS, LIP, CMP #### [place] [address] Hgb 12.8 G/dL Normal 12.0-16.0 [facility] ([place]) Comment on above: Performed By: #### C BC, MG, GFR, ANEU, MDW, ADIFF, DIMER, TROPHS, LIP, CMP #### [place] [address] MCH (RBC) [Entitic mass] 29.5 pg Normal 27.0-31.2 [facility] ([place]) Comment on above: Performed By: #### C BC, MG, GFR, ANEU, MDW, ADIFF, DIMER, TROPHS, LIP, CMP #### [place] [address] MCHC 34.1 G/dL Normal 33.0-37.0 [facility] ([place]) Comment on above: Performed By: #### C BC, MG, GFR, ANEU, MDW, ADIFF, DIMER, TROPHS, LIP, CMP #### [place] [address] MCV (RBC) [Entitic vol] 86.5 fL Normal 80.0-94.0 [facility] ([place]) Comment on above: Performed By: #### C BC, MG, GFR, ANEU, MDW, ADIFF, DIMER, TROPHS, LIP, CMP #### [address] [address] Platelet 269 10 3/mcL Normal 130-400 [facility] ([place]) Comment on above: Performed By: #### C BC, MG, GFR, ANEU, MDW, ADIFF, DIMER, TROPHS, LIP, CMP #### [address] [address] Platelet mean volume (Bld) [Entitic vol] 7.5 fL Normal 7.4-10.4 [facility] ([place]) Comment on above: Performed By: #### C BC, MG, GFR, ANEU, MDW, ADIFF, DIMER, TROPHS, LIP, CMP #### [address] [address] RBC 4.34 10 6/mcL Normal 4.20-5.40 [facility] ([place]) Comment on above: Performed By: #### C BC, MG, GFR, ANEU, MDW, ADIFF, DIMER, TROPHS, LIP, CMP #### [address] [address] WBC 5.6 10 3/mcL Normal 4.6-10.8 [facility] ([place]) Comment on above: Performed By: #### C BC, MG, GFR, ANEU, MDW, ADIFF, DIMER, TROPHS, LIP, CMP #### [address] [address] [address] HEAD OR BRAIN W/O CONTRAS Ton 09-02-2023 CT HEAD OR BRAIN W/O CONTRAST ORIGINAL EXAMINATION: CT OF THE HEAD WITHOUT [...] Date: 09/02/2023 12:12:26 PM Ordering Provider: YAZMIN ANDERS [facility] ([place]) LABORATORYOrdered By: [place] on 09-02-2023 Appearance (U) Clear (09/02/23 11:41 AM) Normal Clear AO Auto Urine SS Bilirubin Ql (U) Negative (09/02/23 11:41 AM) Normal Negative AO Auto Urine SS Color (U) Yellow (09/02/23 11:41 AM) Normal AO Auto Urine SS Glucose Test strip (U) [Mass/Vol] Negative Normal Negative AO Auto Urine SS Hemoglobin Auto test strip (U) [Mass/Vol] Negative (09/02/23 11:41 AM) Normal Negative AO Auto Urine SS Ketones Ql (U) Negative Normal Negative AO Auto Urine SS UA Leuk Est Small *ABN* (09/02/23 11:41 AM) Invalid Interpretation Code Negative AO Auto Urine SS UA Nitrite Negative (09/02/23 11:41 AM) Normal Negative AO Auto Urine SS UA pH 7.0 (09/02/23 11:41 AM) Normal 5.0 - 8.0 AO Auto Urine SS UA Protein Negative Normal Negative AO Auto Urine SS UA RBC None Seen /HPF Normal None Seen AO Auto Urine SS UA Spec Grav 1.010 *ABN* (09/02/23 11:41 AM) Invalid Interpretation Code 1.015-1.025 AO Auto Urine SS UA Specimen Type Clean Catch (09/02/23 11:41 AM) Normal AO Auto Urine SS UA Squam Epithelial 0-5 /HPF Invalid Interpretation Code None Seen AO Auto Urine SS UA Urobilinogen 0.2 E.U./dL Normal 0.2-1.0 AO Auto Urine SS WBC LM.HPF (Urine sed) [#/Area] 0-5 /HPF Invalid Interpretation Code None Seen AO Auto Urine SS LABORATORYOrdered By: SYSTEM SYSTEM on 09-02-2023 Basophil, Absolute 0.0 103/mcL Normal 0.0 - 0.2 10^3/mcL AO Workflow SS Basophils/100 WBC (Bld) 0.4 % Normal 0.0 - 2.5 % AO Workflow SS Calcium [Mass/Vol] 9.3 mg/dL Normal 8.4 - 10. 2 mg/dL AO ADM SS Chloride [Moles/Vol] 101 mmol/L Normal 98 - 10 7 mmol/L AO ADM SS CO2 [Moles/Vol] 27 mmol/L Normal 23 - 31 mmol/L AO ADM SS Creatinine [Mass/Vol] 0.93 mg/dL Normal 0.55 - 1.02 mg/dL AO ADM SS Electrolyte Balance 11.0 mEq/L Normal 4.0 - 15 .0 mEq/L AO ADM SS Eosinophil, Absolute 0.1 103/mcL Normal 0.0 - 0 .4 10^3/mcL AO Workflow SS Eosinophils/100 WBC (Bld) 1.4 % Normal 0.0 - 7.0 % AO Workflow SS Erythrocyte distribution width (RBC) [Ratio] 14.5 % Normal 11.5 - 14.5 % AO Workflow SS GFR/1.73 sq M.predicted among blacks MDRD (S/P/Bld) [Vol rate/Area] 70 ml/min/1.73sqm Invalid Interpretation Code AO Chemistry S Comment on above: Interpretive Data: GFR Population mean for , Non- Americans Ages 20-29 = 116 mL/min/1.73 sq.m. Ages 30-39 = 107 mL/min/1.73 sq.m. Ages 40-49 = 99 mL/min/1.73 sq.m. Ages 50-59 = 93 mL/min/1.73 sq.m. Ages 60-69 = 85 mL/min/1.73 sq.m. Ages 70+ = 75 mL/min/1.73 sq.m. Chronic Kidney Disease: Less than 60 mL/min/1.73 square meters End Stage Renal Disease: Less than 15 mL/min/1.73 square meters GFR/1.73 sq M.predicted among non-blacks MDRD (S/P/Bld) [Vol rate/Area] 58 ml/min/1.73sqm Invalid Interpretation Code AO Chemistry S Comment on above: Interpretive Data: GFR Population mean for , Non- Americans Ages 20-29 = 116 mL/min/1.73 sq.m. Ages 30-39 = 107 mL/min/1.73 sq.m. Ages 40-49 = 99 mL/min/1.73 sq.m. Ages 50-59 = 93 mL/min/1.73 sq.m. Ages 60-69 = 85 mL/min/1.73 sq.m. Ages 70+ = 75 mL/min/1.73 sq.m. Chronic Kidney Disease: Less than 60 mL/min/1.73 square meters End Stage Renal Disease: Less than 15 mL/min/1.73 square meters Glucose [Mass/Vol] 101 mg/dL Normal 83 - 110 mg/dL AO ADM SS Hematocrit (Bld) [Volume fraction] 37.5 % Normal 37.0 - 47.0 % AO Workflow SS Hemoglobin (Bld) [Mass/Vol] 12.8 G/dL Normal 12.0 - 16.0 G/dL AO Workflow SS Lymphocyte, Absolute 0.9 103/mcL Normal 0.8 - 3 .9 10^3/mcL AO Workflow SS Lymphocytes/100 WBC (Bld) 15.7 % Normal 10.0 - 50.0 % AO Workflow SS Magnesium [Mass/Vol] 1.9 mg/dL Normal 1.8 - 2 .4 mg/dL AO ADM SS MCH (RBC) [Entitic mass] 29.5 pg Normal 27. 0 - 31.2 pg AO Workflow SS MCHC 34.1 G/dL Normal 33.0 - 37.0 G/dL AO Workflow SS MCV (RBC) [Entitic vol] 86.5 fL Normal 80.0 - 94.0 fL AO Workflow SS Monocyte distribution width Auto (Bld) [Entitic vol] 16.32 1 Normal 0.00 - 20.00 AO Workflow SS Comment on above: Result Comment: For ED adult patients suspected of sepsis, MDW<=20.0 does not rule out sepsis or risk of sepsis Monocyte, Absolute 0.4 103/mcL Normal 0.2 - 1.0 10^3/mcL AO Workflow SS Monocytes/100 WBC (Bld) 7.9 % Normal 1.7 - 13.0 % AO Workflow SS Neutrophil, Absolute 4.2 103/mcL Normal 2.9 - 6 .2 10^3/mcL AO Workflow SS Neutrophils/100 WBC (Bld) 74.6 % Normal 37.0 - 80.0 % AO Workflow SS Platelet mean volume (Bld) [Entitic vol] 7.5 fL Normal 7.4 - 10.4 fL AO Workflow SS Platelets (Bld) [#/Vol] 269 103/mcL Normal 130 - 400 10^3/mcL AO Workflow SS Potassium [Moles/Vol] 4.4 mmol/L Normal 3.5 - 5.1 mmol/L AO ADM SS RBC (Bld) [#/Vol] 4.34 106/mcL Normal 4.20 - 5.4 0 10^6/mcL AO Workflow SS Sodium [Moles/Vol] 139 mmol/L Normal 136 - 145 mmol/L AO ADM SS Troponin I.cardiac DL <= 0.01 ng/mL [Mass/Vol] 10.0 ng/L Normal 0.0 - 51.4 ng/L AO ADM SS TSH Qn 0.37 m[IU]/L Normal 0.36 - 3.74 mcIU/mL AO ADM SS Urea nitrogen [Mass/Vol] 13 mg/dL Normal 7 - 18 mg/dL AO ADM SS Urea nitrogen/Creatinine [Mass ratio] 14 ratio Normal 7 - 27 ratio AO ADM SS WBC (Bld) [#/Vol] 5.6 103/mcL Normal 4.6 - 10.8 10^3/mcL AO Workflow SS MGon 09-02-2023 Magnesium [Mass/Vol] 1.9 mg/dL Normal 1.8-2.4 [facility] ([place]) Comment on above: Performed By: #### C BC, MG, GFR, ANEU, MDW, ADIFF, DIMER, TROPHS, LIP, CMP #### [address] [address] TROPHSon 09-02-2023 Troponin I High Sensitivity 10.0 ng/L Normal 0.0-51.4 [facility] ([place]) Comment on above: Performed By: #### C BC, MG, GFR, ANEU, MDW, ADIFF, DIMER, TROPHS, LIP, CMP #### [address] [address] TSHon 09-02-2023 TSH Qn 0.37 m[IU]/L Normal 0.36-3.74 [facility] ([place]) Comment on above: Performed By: #### C BC, MG, GFR, ANEU, MDW, ADIFF, DIMER, TROPHS, LIP, CMP #### [address] [place], [place] [address] UAon 09-02-2023 Color (U) Yellow Normal [facility] ([place]) Comment on above: Performed By: #### U A, UAMICAO ####[address] [place] [place] [address] Glucose (U) [Mass/Vol] Negative Normal Negative [facility] ([place]) Comment on above: Performed By: #### U A, UAMICAO ####[address] [place], [place] [address] Ketones Ql (U) Negative Normal Negative [facility] ([place]) Comment on above: Performed By: #### U A, UAMICAO ####[place] [id number] UA Appear Clear Normal Clear [facility] ([place]) Comment on above: Performed By: #### U A, UAMICAO ####[address] [place], [place] [address] UA Blood Negative Normal Negative [facility] ([place]) Comment on above: Performed By: #### U A, UAMICAO ####[address] [place], [place] [address] UA Leuk Est Small Abnormal Negative [facility] ([place]) Comment on above: Performed By: #### U A, UAMICAO ####[address] [place], [place] [address] UA Nitrite Negative Normal Negative [facility] ([place]) Comment on above: Performed By: #### U A, UAMICAO ####[address] [place], [place] [address] UA pH 7.0 Normal 5.0 - 8.0 [facility] ([place]) Comment on above: Performed By: #### U A, UAMICAO ####[address] [place], [place] [address] UA Protein Negative Normal Negative [facility] ([place]) Comment on above: Performed By: #### U A UAMICAO ####[address] [place], [place] [address] UA Spec Grav 1.010 Abnormal 1.015-1.025 [facility] ([place]) Comment on above: Performed By: #### U A UAMICAO ####[address] [place], [place] [address] UA Specimen Type Clean Catch Normal [facility] ([place]) Comment on above: Performed By: #### U A UAMICAO ####[address] [place], [place] [address] UA Urobilinogen 0.2 E.U./dL Normal 0.2-1.0 [facility] ([place]) Comment on above: Performed By: #### U Christina UAMICAO ####[address] [place], [place] [address] Urobilinogen (U) [Mass/Vol] Negative Normal Negative [facility] ([place]) Comment on above: Performed By: #### U Christina UAMICAO ####[address] [place], [place] [address] XR CHEST 1 VIEWon 09-02-2023 XR CHEST 1 VIEW ORIGINAL EXAMINATION: ONE XRAY VIEW OF THE [...] Date: 09/02/2023 12:13:24 PM Ordering Provider: YAZMIN ANDERS Normal [facility] ([place]) .GFRon 08-30-2023 GFR 66 ml/min/1.73sqm Normal [facility] ([place]) Comment on above: Result Comment: GFR Population mean for , Non- Americans Ages 20-29 = 116 mL/min/1.73 sq.m. Ages 30-39 = 107 mL/min/1.73 sq.m. Ages 40-49 = 99 mL/min/1.73 sq.m. Ages 50-59 = 93 mL/min/1.73 sq.m. Ages 60-69 = 85 mL/min/1.73 sq.m. Ages 70+ = 75 mL/min/1.73 sq.m. Chronic Kidney Disease: Less than 60 mL/min/1.73 square meters End Stage Renal Disease: Less than 15 mL/min/1.73 square meters Performed By: #### C BC, MG, GFR, ANEU, MDW, ADIFF, DIMER, TROPHS, LIP, CMP #### [address] [address] GFR Non- 54 ml/min/1.73sqm Normal [facility] ([place]) Comment on above: Result Comment: GFR Population mean for , Non- Americans Ages 20-29 = 116 mL/min/1.73 sq.m. Ages 30-39 = 107 mL/min/1.73 sq.m. Ages 40-49 = 99 mL/min/1.73 sq.m. Ages 50-59 = 93 mL/min/1.73 sq.m. Ages 60-69 = 85 mL/min/1.73 sq.m. Ages 70+ = 75 mL/min/1.73 sq.m. Chronic Kidney Disease: Less than 60 mL/min/1.73 square meters End Stage Renal Disease: Less than 15 mL/min/1.73 square meters Performed By: #### C BC, MG, GFR, ANEU, MDW, ADIFF, DIMER, TROPHS, LIP, CMP #### [address] [address] CMPon 08-30-2023 Albumin Level 4.1 G/dL Normal 3.4-4.8 [facility] ([place]) Comment on above: Performed By: #### C BC, MG, GFR, ANEU, MDW, ADIFF, DIMER, TROPHS, LIP, CMP #### [address] [address] Albumin/Globulin [Mass ratio] 1.4 {ratio} Normal 1.1-2.5 [facility] ([place]) Comment on above: Performed By: #### C BC, MG, GFR, ANEU, MDW, ADIFF, DIMER, TROPHS, LIP, CMP #### [address] [address] ALP [Catalytic activity/Vol] 75 U/L Normal 40-135 [facility] ([place]) Comment on above: Performed By: #### C BC, MG, GFR, ANEU, MDW, ADIFF, DIMER, TROPHS, LIP, CMP #### [address] [address] ALT [Catalytic activity/Vol] 26 U/L Normal 14-59 [facility] ([place]) Comment on above: Performed By: #### C BC, MG, GFR, ANEU, MDW, ADIFF, DIMER, TROPHS, LIP, CMP #### [address] [address] AST [Catalytic activity/Vol] 15 U/L Normal 10-40 [facility] ([place]) Comment on above: Performed By: #### C BC, MG, GFR, ANEU, MDW, ADIFF, DIMER, TROPHS, LIP, CMP #### [address] [address] Bili Total 0.5 mg/dL Normal 0.2-1.0 [facility] ([place]) Comment on above: Result Comment: Use of this assay is not recommended for patients undergoing treatment with eltrombopag due to the potential for falsely elevated results. Performed By: #### C BC, MG, GFR, ANEU, MDW, ADIFF, DIMER, TROPHS, LIP, CMP #### [address] [address] BUN/Creatinine Ratio 14 ratio Normal 7-27 [facility] ([place]) Comment on above: Performed By: #### C BC, MG, GFR, ANEU, MDW, ADIFF, DIMER, TROPHS, LIP, CMP #### [address] [address] Calcium [Mass/Vol] 9.6 mg/dL Normal 8.4-10.2 [facility] ([place]) Comment on above: Performed By: #### C BC, MG, GFR, ANEU, MDW, ADIFF, DIMER, TROPHS, LIP, CMP #### [address] [address] Chloride [Moles/Vol] 100 mmol/L Normal 98-107 [facility] ([place]) Comment on above: Performed By: #### C BC, MG, GFR, ANEU, MDW, ADIFF, DIMER, TROPHS, LIP, CMP #### [address] [address] CO2 [Moles/Vol] 27 mmol/L Normal 23-31 [facility] ([place]) Comment on above: Performed By: #### C BC, MG, GFR, ANEU, MDW, ADIFF, DIMER, TROPHS, LIP, CMP #### [address] [address] Creatinine [Mass/Vol] 0.99 mg/dL Normal 0.55-1.02 Pending sale to [facility] ([place]) Comment on above: Performed By: #### C BC, MG, GFR, ANEU, MDW, ADIFF, DIMER, TROPHS, LIP, CMP #### [address] [address] Electrolyte Balance 9.0 mEq/L Normal 4.0-15.0 [facility] ([place]) Comment on above: Performed By: #### C BC, MG, GFR, ANEU, MDW, ADIFF, DIMER, TROPHS, LIP, CMP #### [address] [address] Globulin 2.9 G/dL Normal [facility] ([place]) Comment on above: Performed By: #### C BC, MG, GFR, ANEU, MDW, ADIFF, DIMER, TROPHS, LIP, CMP #### [address] [address] Glucose [Mass/Vol] 93 mg/dL Normal 83-110 [facility] ([place]) Comment on above: Performed By: #### C BC, MG, GFR, ANEU, MDW, ADIFF, DIMER, TROPHS, LIP, CMP #### [address] [address] Potassium [Moles/Vol] 4.1 mmol/L Normal 3.5-5.1 Pending sale to [facility] ([place]) Comment on above: Performed By: #### C BC, MG, GFR, ANEU, MDW, ADIFF, DIMER, TROPHS, LIP, CMP #### [address] [address] Sodium [Moles/Vol] 136 mmol/L Normal 136-145 [facility] ([place]) Comment on above: Performed By: #### C BC, MG, GFR, ANEU, MDW, ADIFF, DIMER, TROPHS, LIP, CMP #### [address] [address] Total Protein 7.0 G/dL Normal 6.4-8.2 [facility]) Comment on above: Performed By: #### C BC, MG, GFR, ANEU, MDW, ADIFF, DIMER, TROPHS, LIP, CMP #### [address] [address] Urea nitrogen [Mass/Vol] 14 mg/dL Normal 7-18 [facility] ([place]) Comment on above: Performed By: #### C BC, MG, GFR, ANEU, MDW, ADIFF, DIMER, TROPHS, LIP, CMP #### [address] [address] LABORATORYOrdered By: SYSTEM SYSTEM on 08-30-2023 Albumin BCP dye [Mass/Vol] 4.1 G/dL Normal 3.4 - 4.8 G/dL AO ADM SS Albumin/Globulin [Mass ratio] 1.4 {ratio} Normal 1.1 - 2.5 ratio AO ADM SS ALP [Catalytic activity/Vol] 75 U/L Normal 40 - 135 U/L AO ADM SS ALT With P-5'-P [Catalytic activity/Vol] 26 U/L Normal 14 - 59 U/L AO ADM SS AST With P-5'-P [Catalytic activity/Vol] 15 U/L Normal 10 - 40 U/L AO ADM SS Bilirubin [Mass/Vol] 0.5 mg/dL Normal 0.2 - 1 .0 mg/dL AO ADM SS Comment on above: Interpretive Data: U se of this assay is not recommended for patients undergoing treatment with eltrombopag due to the potential for falsely elevated results. Calcium [Mass/Vol] 9.6 mg/dL Normal 8.4 - 10. 2 mg/dL AO ADM SS Chloride [Moles/Vol] 100 mmol/L Normal 98 - 10 7 mmol/L AO ADM SS CO2 [Moles/Vol] 27 mmol/L Normal 23 - 31 mmol/L AO ADM SS Creatinine [Mass/Vol] 0.99 mg/dL Normal 0.55 - 1.02 mg/dL AO ADM SS Electrolyte Balance 9.0 mEq/L Normal 4.0 - 15 .0 mEq/L AO ADM SS GFR/1.73 sq M.predicted among blacks MDRD (S/P/Bld) [Vol rate/Area] 66 ml/min/1.73sqm Invalid Interpretation Code AO Chemistry S Comment on above: Interpretive Data: GFR Population mean for , Non- Americans Ages 20-29 = 116 mL/min/1.73 sq.m. Ages 30-39 = 107 mL/min/1.73 sq.m. Ages 40-49 = 99 mL/min/1.73 sq.m. Ages 50-59 = 93 mL/min/1.73 sq.m. Ages 60-69 = 85 mL/min/1.73 sq.m. Ages 70+ = 75 mL/min/1.73 sq.m. Chronic Kidney Disease: Less than 60 mL/min/1.73 square meters End Stage Renal Disease: Less than 15 mL/min/1.73 square meters GFR/1.73 sq M.predicted among non-blacks MDRD (S/P/Bld) [Vol rate/Area] 54 ml/min/1.73sqm Invalid Interpretation Code AO Chemistry S Comment on above: Interpretive Data: GFR Population mean for , Non- Americans Ages 20-29 = 116 mL/min/1.73 sq.m. Ages 30-39 = 107 mL/min/1.73 sq.m. Ages 40-49 = 99 mL/min/1.73 sq.m. Ages 50-59 = 93 mL/min/1.73 sq.m. Ages 60-69 = 85 mL/min/1.73 sq.m. Ages 70+ = 75 mL/min/1.73 sq.m. Chronic Kidney Disease: Less than 60 mL/min/1.73 square meters End Stage Renal Disease: Less than 15 mL/min/1.73 square meters Globulin 2.9 G/dL Invalid Interpretation Code AO ADM SS Glucose [Mass/Vol] 93 mg/dL Normal 83 - 110 mg/dL AO ADM SS Magnesium [Mass/Vol] 1.9 mg/dL Normal 1.8 - 2 .4 mg/dL AO ADM SS Potassium [Moles/Vol] 4.1 mmol/L Normal 3.5 - 5.1 mmol/L AO ADM SS Protein [Mass/Vol] 7.0 G/dL Normal 6.4 - 8.2 G/dL AO ADM SS Sodium [Moles/Vol] 136 mmol/L Normal 136 - 145 mmol/L AO ADM SS Urea nitrogen [Mass/Vol] 14 mg/dL Normal 7 - 18 mg/dL AO ADM SS Urea nitrogen/Creatinine [Mass ratio] 14 ratio Normal 7 - 27 ratio AO ADM SS MGon 08-30-2023 Magnesium [Mass/Vol] 1.9 mg/dL Normal 1.8-2.4 [facility] ([place]) Comment on above: Performed By: #### C BC, MG, GFR, ANEU, MDW, ADIFF, DIMER, TROPHS, LIP, CMP #### [place] [address] .GFRon 08-21-2023 GFR 56 ml/min/1.73sqm Normal [facility] ([place]) Comment on above: Result Comment: GFR Population mean for , Non- Americans Ages 20-29 = 116 mL/min/1.73 sq.m. Ages 30-39 = 107 mL/min/1.73 sq.m. Ages 40-49 = 99 mL/min/1.73 sq.m. Ages 50-59 = 93 mL/min/1.73 sq.m. Ages 60-69 = 85 mL/min/1.73 sq.m. Ages 70+ = 75 mL/min/1.73 sq.m. Chronic Kidney Disease: Less than 60 mL/min/1.73 square meters End Stage Renal Disease: Less than 15 mL/min/1.73 square meters Performed By: #### C BC, MG, GFR, ANEU, MDW, ADIFF, DIMER, TROPHS, LIP, CMP #### [address] [address] GFR Non- 46 ml/min/1.73sqm Normal [facility] ([place]) Comment on above: Result Comment: GFR Population mean for , Non- Americans Ages 20-29 = 116 mL/min/1.73 sq.m. Ages 30-39 = 107 mL/min/1.73 sq.m. Ages 40-49 = 99 mL/min/1.73 sq.m. Ages 50-59 = 93 mL/min/1.73 sq.m. Ages 60-69 = 85 mL/min/1.73 sq.m. Ages 70+ = 75 mL/min/1.73 sq.m. Chronic Kidney Disease: Less than 60 mL/min/1.73 square meters End Stage Renal Disease: Less than 15 mL/min/1.73 square meters Performed By: #### C BC, MG, GFR, ANEU, MDW, ADIFF, DIMER, TROPHS, LIP, CMP #### [address] [address] CMPon 08-21-2023 Albumin Level 4.1 G/dL Normal 3.4-4.8 [facility] ([place]) Comment on above: Performed By: #### C BC, MG, GFR, ANEU, MDW, ADIFF, DIMER, TROPHS, LIP, CMP #### [address] [address] Albumin/Globulin [Mass ratio] 1.3 {ratio} Normal 1.1-2.5 [facility] ([place]) Comment on above: Performed By: #### C BC, MG, GFR, ANEU, MDW, ADIFF, DIMER, TROPHS, LIP, CMP #### [address] [id number] ALP [Catalytic activity/Vol] 75 U/L Normal 40-135 [facility] ([place]) Comment on above: Performed By: #### C BC, MG, GFR, ANEU, MDW, ADIFF, DIMER, TROPHS, LIP, CMP #### [address] [id number] ALT [Catalytic activity/Vol] 23 U/L Normal 14-59 [facility] ([place]) Comment on above: Performed By: #### C BC, MG, GFR, ANEU, MDW, ADIFF, DIMER, TROPHS, LIP, CMP #### [address] [id number] AST [Catalytic activity/Vol] 16 U/L Normal 10-40 [facility] ([place]) Comment on above: Performed By: #### C BC, MG, GFR, ANEU, MDW, ADIFF, DIMER, TROPHS, LIP, CMP #### [address] [address] Bili Total 0.4 mg/dL Normal 0.2-1.0 [facility] ([place]) Comment on above: Result Comment: Use of this assay is not recommended for patients undergoing treatment with eltrombopag due to the potential for falsely elevated results. Performed By: #### C BC, MG, GFR, ANEU, MDW, ADIFF, DIMER, TROPHS, LIP, CMP #### [address] [address] BUN/Creatinine Ratio 17 ratio Normal 7-27 [facility] ([place]) Comment on above: Performed By: #### C BC, MG, GFR, ANEU, MDW, ADIFF, DIMER, TROPHS, LIP, CMP #### [address] [address] Calcium [Mass/Vol] 8.4 mg/dL Normal 8.4-10.2 [facility] ([place]) Comment on above: Performed By: #### C BC, MG, GFR, ANEU, MDW, ADIFF, DIMER, TROPHS, LIP, CMP #### [address] [address] Chloride [Moles/Vol] 100 mmol/L Normal 98-107 [facility] ([place]) Comment on above: Performed By: #### C BC, MG, GFR, ANEU, MDW, ADIFF, DIMER, TROPHS, LIP, CMP #### [address] [address] CO2 [Moles/Vol] 26 mmol/L Normal 23-31 [facility] ([place]) Comment on above: Performed By: #### C BC, MG, GFR, ANEU, MDW, ADIFF, DIMER, TROPHS, LIP, CMP #### [address] [address] Creatinine [Mass/Vol] 1.14 mg/dL High 0.55-1.02 Pending sale to [facility] ([place]) Comment on above: Performed By: #### C BC, MG, GFR, ANEU, MDW, ADIFF, DIMER, TROPHS, LIP, CMP #### [place] [address] Electrolyte Balance 10.0 mEq/L Normal 4.0-15.0 [facility] ([place]) Comment on above: Performed By: #### C BC, MG, GFR, ANEU, MDW, ADIFF, DIMER, TROPHS, LIP, CMP #### [address] [address] Globulin 3.1 G/dL Normal [facility] ([place]) Comment on above: Performed By: #### C BC, MG, GFR, ANEU, MDW, ADIFF, DIMER, TROPHS, LIP, CMP #### [place] [address] Glucose [Mass/Vol] 117 mg/dL High 83-110 [facility] ([place]) Comment on above: Performed By: #### C BC, MG, GFR, ANEU, MDW, ADIFF, DIMER, TROPHS, LIP, CMP #### [address] [address] Potassium [Moles/Vol] 4.7 mmol/L Normal 3.5-5.1 Pending sale to [facility] ([place]) Comment on above: Performed By: #### C BC, MG, GFR, ANEU, MDW, ADIFF, DIMER, TROPHS, LIP, CMP #### [address] [address] Sodium [Moles/Vol] 136 mmol/L Normal 136-145 [facility] ([place]) Comment on above: Performed By: #### C BC, MG, GFR, ANEU, MDW, ADIFF, DIMER, TROPHS, LIP, CMP #### [address] [address] Total Protein 7.2 G/dL Normal 6.4-8.2 [facility] ([place]) Comment on above: Performed By: #### C BC, MG, GFR, ANEU, MDW, ADIFF, DIMER, TROPHS, LIP, CMP #### [address] [address] Urea nitrogen [Mass/Vol] 19 mg/dL High 7-18 [facility] ([place]) Comment on above: Performed By: #### C BC, MG, GFR, ANEU, MDW, ADIFF, DIMER, TROPHS, LIP, CMP #### [address] [address] MGon 08-21-2023 Magnesium [Mass/Vol] 2.1 mg/dL Normal 1.8-2.4 [facility] ([place]) Comment on above: Performed By: #### C BC, MG, GFR, ANEU, MDW, ADIFF, DIMER, TROPHS, LIP, CMP #### [address] [address] Absolute lymphocyte countOrd ered By: Juan Diego Marks on 08-08-2023 Lymphocytes Auto (Unsp spec) [#/Vol] 1.62 10*3/uL 0.83-4.51 [facility] Basophil percentageOrdered B y: Juan Diego Marks on 08-08-2023 Basophils/100 WBC (Bld) 1.0 % 0-1 [facility] Chloride [Moles/Vol] 103 mmol/L 98-107 [facility] Eosinophils/100 WBC (Bld) 6.6 % 0-5 [facility] Glucose [Mass/Vol] 93 mg/dL 74-106 [facility] Neutrophils (Bld) [#/Vol] 1.8 10*3/uL 2.0-7.7 [facility] Neutrophils/100 WBC (Bld) 43.2 % 47-70 [facility] Potassium [Moles/Vol] 4.3 mmol/L 3.5-5.1 [facility] Sodium [Moles/Vol] 136 mmol/L 136-145 [facility] WBC (Bld) [#/Vol] 4.1 10*3/uL 4.4-11.0 [facility] Blood erythrocytes count (nu mber/volume)Ordered By: Juan Diego Marks on 08-08-2023 RBC (Bld) [#/Vol] 3.84 10*6/uL 4.2-5.4 [facility] Blood hemoglobin measurement (mass/volume)Ordered By: Juan Diego Marks on 08-08-2023 Hemoglobin (Bld) [Mass/Vol] 10.9 g/dL 12.0-15.0 [facility] Blood lymphocytes/100 leukoc ytesOrdered By: Juan Diego Marks on 08-08-2023 Lymphocytes/100 WBC (Bld) 39.3 % 19-41 [facility] Blood monocytes/100 leukocyt esOrdered By: Juan Diego Marks on 08-08-2023 Monocytes/100 WBC (Bld) 9.7 % 0-10 [facility] Blood platelet mean volumeOr dered By: Juan Diego Marks on 08-08-2023 Platelet mean volume (Bld) [Entitic vol] 9.2 fL 6.2-12.0 [facility] Determination of erythrocyte mean corpuscular volume (MCV)Ordered By: Juan Diego Marks on 08-08-2023 MCV (RBC) [Entitic vol] 89.6 fL 81-99 [facility] Hematocrit Auto (Bld) [Volum e fraction]Ordered By: Juan Diego Marks on 08-08-2023 Hematocrit (Bld) [Volume fraction] 34.4 % 37-47 [facility] Laboratory - Chemistry and C hemistry - challengeOrdered By: Juan Diego Marks on 08-08-2023 CO2 [Moles/Vol] 32.0 mmol/L 21.0-32.0 [facility] Urea nitrogen/Creatinine [Mass ratio] 23.6 mg/mg 10-20 [facility] Laboratory - Hematology and Cell countsOrdered By: Juan Diego Marks on 08-08-2023 Erythrocyte distribution width (RBC) [Entitic vol] 43.2 fL 35.1-43.9 [facility] Erythrocyte distribution width (RBC) [Ratio] 13.3 % 11.6-14.6 [facility] Immature granulocytes/100 WBC (Bld) 0.200 % 0.0-0.9 [facility] Comment on above: IG% - Immature Granu locytes (promyelocytes, myelocytes and metamyelocytes) > 1% indicates that a LEFT SHIFT is Present. MCH (RBC) [Entitic mass] 28.4 pg 27.0-32.0 [facility] Nucleated RBC/100 WBC (Bld) [Ratio] 0 % 0-5 [facility] MCHC Auto (RBC) [Mass/Vol]Or dered By: Juan Diego Marks on 08-08-2023 MCHC (RBC) [Mass/Vol] 31.7 g/dL 32-36 [facility] No Panel InformationOrdered By: Juan Diego Marks on 08-08-2023 Estimated Creatinine Clearance Calc 53.38 ml/min [facility] Estimated GFR (MDRD) Amer 88 mL/min >60 [facility] Comment on above: GFR Calc Estimated GFR (MDRD) Non-Af Amer 73 mL/min >60 [facility] Comment on above: Non- GFR Calc Platelets bldOrdered By: Juan Diego Marks on 08-08-2023 Platelets (Bld) [#/Vol] 291 10*3/uL 150-450 [facility] Serum or plasma calcium cindy urement (mass/volume)Ordered By: Juan Diego Marks on 08-08-2023 Calcium [Mass/Vol] 8.9 mg/dL 8.5-10.1 [facility] Serum or plasma creatinine m easurement (mass/volume)Ordered By: Juan Diego Marks on 08-08-2023 Creatinine [Mass/Vol] 0.80 mg/dL 0.55-1.02 [facility] Comment on above: The validity of the calculated GFR & GFRAA in patients over 70 years has not been determined. Clinical correlation is essential. Serum or plasma urea nitroge n measurement (mass/volume)Ordered By: Juan Diego Marks on 08-08-2023 Urea nitrogen [Mass/Vol] 19 mg/dL 7-18 [facility] Thin prep Papanicolaou smear with manual screeningOrdered By: Juan Diego Marks on 08-08-2023 Thin prep Papanicolaou smear with manual screening 1 5-15 [facility] Absolute lymphocyte countOrd ered By: Natalya Wright on 07-31-2023 Lymphocytes Auto (Unsp spec) [#/Vol] 1.03 10*3/uL 0.83-4.51 [facility] Basophil percentageOrdered B y: Natalya Wright on 07-31-2023 Basophils/100 WBC (Bld) 0.4 % 0-1 [facility] Chloride [Moles/Vol] 102 mmol/L 98-107 [facility] Eosinophils/100 WBC (Bld) 2.2 % 0-5 [facility] Glucose [Mass/Vol] 94 mg/dL 74-106 [facility] Neutrophils (Bld) [#/Vol] 3.3 10*3/uL 2.0-7.7 [facility] Neutrophils/100 WBC (Bld) 67.4 % 47-70 [facility] Potassium [Moles/Vol] 3.2 mmol/L 3.5-5.1 [facility] Sodium [Moles/Vol] 133 mmol/L 136-145 [facility] WBC (Bld) [#/Vol] 4.9 10*3/uL 4.4-11.0 [facility] Blood erythrocytes count (nu mber/volume)Ordered By: Natalya Wright on 07-31-2023 RBC (Bld) [#/Vol] 4.30 10*6/uL 4.2-5.4 [facility] Blood hemoglobin measurement (mass/volume)Ordered By: Natalya Wright on 07-31-2023 Hemoglobin (Bld) [Mass/Vol] 12.1 g/dL 12.0-15.0 [facility] Blood lymphocytes/100 leukoc ytesOrdered By: Natalya Wright on 07-31-2023 Lymphocytes/100 WBC (Bld) 21.0 % 19-41 [facility] Blood monocytes/100 leukocyt esOrdered By: Natalya Wright on 07-31-2023 Monocytes/100 WBC (Bld) 8.6 % 0-10 [facility] Blood platelet mean volumeOr dered By: Natalya Wright on 07-31-2023 Platelet mean volume (Bld) [Entitic vol] 9.8 fL 6.2-12.0 [facility] Determination of erythrocyte mean corpuscular volume (MCV)Ordered By: Natalya Wright on 07-31-2023 MCV (RBC) [Entitic vol] 84.7 fL 81-99 [facility] Comment on above: Delta: 80.0 on 07/28-0150 Hematocrit Auto (Bld) [Volum e fraction]Ordered By: Natalya Wright on 07-31-2023 Hematocrit (Bld) [Volume fraction] 36.4 % 37-47 [facility] Laboratory - Chemistry and C hemistry - challengeOrdered By: Natalya Wright on 07-31-2023 CO2 [Moles/Vol] 25.0 mmol/L 21.0-32.0 [facility] Urea nitrogen/Creatinine [Mass ratio] 13.2 mg/mg 10-20 [facility] Laboratory - Hematology and Cell countsOrdered By: Natalya Wright on 07-31-2023 Erythrocyte distribution width (RBC) [Entitic vol] 37.4 fL 35.1-43.9 [facility] Erythrocyte distribution width (RBC) [Ratio] 12.3 % 11.6-14.6 [facility] Immature granulocytes/100 WBC (Bld) 0.400 % 0.0-0.9 [facility] Comment on above: IG% - Immature Granu locytes (promyelocytes, myelocytes and metamyelocytes) > 1% indicates that a LEFT SHIFT is Present. MCH (RBC) [Entitic mass] 28.1 pg 27.0-32.0 [facility] Nucleated RBC/100 WBC (Bld) [Ratio] 0 % 0-5 [facility] MCHC Auto (RBC) [Mass/Vol]Or dered By: Natalya Wright on 07-31-2023 MCHC (RBC) [Mass/Vol] 33.2 g/dL 32-36 [facility] Comment on above: Delta: 35.7 on [id number]/280150 No Panel InformationOrdered By: Natalya Wright on 07-31-2023 Estimated Creatinine Clearance Calc 41.05 ml/min [facility] Estimated GFR (MDRD) Amer 123 mL/min >60 [facility] Comment on above: GFR Calc Estimated GFR (MDRD) Non-Af Amer 101 mL/min >60 [facility] Comment on above: Non- GFR Calc Platelets bldOrdered By: Mao Wright on 07-31-2023 Platelets (Bld) [#/Vol] 274 10*3/uL 150-450 [facility] Serum or plasma calcium cindy urement (mass/volume)Ordered By: Natalya Wright on 07-31-2023 Calcium [Mass/Vol] 8.3 mg/dL 8.5-10.1 [facility] Serum or plasma creatinine m easurement (mass/volume)Ordered By: Natalya Wright on 07-31-2023 Creatinine [Mass/Vol] 0.60 mg/dL 0.55-1.02 [facility] Comment on above: The validity of the calculated GFR & GFRAA in patients over 70 years has not been determined. Clinical correlation is essential. Serum or plasma urea nitroge n measurement (mass/volume)Ordered By: Natalya Wright on 07-31-2023 Urea nitrogen [Mass/Vol] 8 mg/dL 7-18 [facility] Thin prep Papanicolaou smear with manual screeningOrdered By: Natalya Wright on 07-31-2023 Thin prep Papanicolaou smear with manual screening 6 5-15 [facility] Serum or plasma cortisol jyoti surement (mass/volume)Ordered By: Brooks Carcamo on 07-29-2023 Cortisol [Mass/Vol] 25.40 ug/dL 3.44-22.45 [facility] Comment on above: Adult (AM) 5.27 - 22 .45 ug/dL Adult (PM) 3.44 - 16.76 ug/dLPlease note revised CORTISOL reference range effective 2019. Basophil percentageOrdered B y: Madhavi Rio on 07-28-2023 Bilirubin [Mass/Vol] 0.60 mg/dL 0.20-1.00 [facility] Comment on above: For patients on eltr ombopag therapy, use of Dimension [place] TBIL is not recommended. Protein [Mass/Vol] 7.0 g/dL 6.4-8.2 [facility] LDH [Catalytic activity/Vol] 185 U/L 84-246 [facility] Blood manual differential co mment interpretation (narrative result)Ordered By: Madhavi Pate on 07-28-2023 Manual differential comment Michael (Bld) [Interp] SCANNED [facility] Comment on above: LYMPHOPENIA PRESENT Direct bilirubinOrdered By: Madhavi Pate on 07-28-2023 Bilirubin.direct [Mass/Vol] 0.19 mg/dL 0.00-0.30 [facility] Laboratory - Chemistry and C hemistry - challengeOrdered By: Madhavi Pate on 07-28-2023 Sodium (U) [Moles/Vol] 98 mmol/L Not Establ. [facility] ALP [Catalytic activity/Vol] 68 U/L 45-117 [facility] ALT [Catalytic activity/Vol] 23 U/L 13-56 [facility] Free T4 [Mass/Vol] 1.31 ng/dL 0.76-1.46 [facility] Globulin (S) [Mass/Vol] 3.2 g/dL 2.2-4.2 [facility] Magnesium [Mass/Vol] 2.1 mg/dL 1.6-2.6 [facility] CK [Catalytic activity/Vol] 229 U/L 26-192 [facility] Natriuretic peptide B (Bld) [Mass/Vol] 111.9 pg/mL 0-100 [facility] Laboratory - Microbiology an d Antimicrobial susceptibilityOrdered By: Brooks Carcamo on 07-28-2023 SARS-CoV-2 (COVID-19) RNA YOLANDA+probe Ql (Unsp spec) SARS-CoV-2 (COVID 19 PCR) [facility] No Panel InformationOrdered By: Madhavi Pate on 07-28-2023 Thyroid Stimulating Hormone (TSH) 0.55 uIU/mL 0.358-3.74 [facility] D-Dimer Quantitative (PE/DVT) 0.68 FEU/ug/m 0.27-0.49 [facility] Comment on above: D-Dimer ELEVATED (>0 .49): Additional studies and clinicalassessments are indicated to conclude diagnosis of:Deep Vein Thrombosis (DVT) or Pulmonary Embolism (PE)CRITICAL VALUE VERIFIED. CALLED TO [id number] [place] Lidia.RESULTS READ BACK BY SAME. Troponin I High Sensitivity 28 pg/mL 3.0-54.0 [facility] Comment on above: Please Note: New Krysta t Units and Gender Specific Reference Ranges. For more information see Policy Stat Procedure [place] High Sensitivity Troponin (TNIH) and attachments. Serum or plasma C reactive p rotein measurement (mass/volume)Ordered By: [facility] on 07-28-2023 CRP [Mass/Vol] mg/L 0.0-3.0 [facility] Comment on above: C-Reactive Protein ( CRP) provides useful information for thediagnosis, therapy and monitoring of inflammatory processesand associated diseases. For the evaluation of Relative Riskfor Cardiovascular Disease, a High Sensitivity CRP (HSCRP)should be ordered. Serum or plasma albumin cindy urement (mass/volume)Ordered By: [facility] on 07-28-2023 Albumin [Mass/Vol] 3.8 g/dL 3.2-5.0 [facility] Serum or plasma ferritin jyoti surement (mass/volume)Ordered By: [facility] 07-28-2023 Ferritin [Mass/Vol] 316 ng/mL 8-252 [facility] Serum procalcitonin measurem entOrdered By: [facility] 07-28-2023 Procalcitonin [Mass/Vol] ng/mL 0.00-0.09 [facility] Comment on above: A procalcitonin (PCT ) level above 2.0 ng/mL on the first day of ICU admission is associated with a high risk for progression to severe sepsis and/or septic shock. A PCT level below 0.5 ng/mL on the first day of ICU admission is associated with a low risk for progression to severe and/or septic shock. Note: Concentrations <0.5 ng/mL do not exclude an infection on account of localized infections (without systemic signs) which can be associated with such low concentrations, or a systemic infection in its initial stages (<6 hours). Furthermore, increased procalcitonin can occur without infection. PCT concentrations between 0.5 and 2.0 ng/mL should be interpreted taking into account the patient's history. It is recommended to retest PCT within 6-24 hours if any concentrations <2 ng/mL are obtained. Thin prep Papanicolaou smear with manual screeningOrdered By: Madhavi Pate on 07-28-2023 Thin prep Papanicolaou smear with manual screening 28 U/L 15-37 [facility] Urine creatinine measurement (mass/volume)Ordered By: Madhavi Pate on 07-28-2023 Creatinine (U) [Mass/Vol] 37.70 mg/dL NO RANGE EST. [facility] Urine osmolality measurement Ordered By: Madhavi Pate on 07-28-2023 Osmolality (U) [Osmolality] 366 mOsm/KG >50 [facility] Comment on above: Normal Urine Referen ce Ranges Random: 50 - 1200 mOsm/kg H20 depending on fluid intake Random: >850 mOsm/kg after 12 hour fluid restriction 24 hour: ~300 - 900 mOsm/kg H2O .Auto Diffon 07-27-2023 Basophil, Absolute 0.0 10 3/mcL Normal 0.0-0.2 [facility] ([place]) Comment on above: Performed By: #### C BC, MG, GFR, ANEU, MDW, ADIFF, DIMER, TROPHS, LIP, CMP #### [address] [address] Basophils/100 WBC (Bld) 0.4 % Normal 0.0-2.5 A Counts include 234 beds at the [facility] ([place]) Comment on above: Performed By: #### C BC, MG, GFR, ANEU, MDW, ADIFF, DIMER, TROPHS, LIP, CMP #### [address] [address] Eosinophil, Absolute 0.0 10 3/mcL Normal 0.0-0.4 [facility] ([place]) Comment on above: Performed By: #### C BC, MG, GFR, ANEU, MDW, ADIFF, DIMER, TROPHS, LIP, CMP #### [address] [address] Eosinophils/100 WBC (Bld) 1.0 % Normal 0.0-7.0 [facility] ([place]) Comment on above: Performed By: #### C BC, MG, GFR, ANEU, MDW, ADIFF, DIMER, TROPHS, LIP, CMP #### [address] [address] Lymphocyte, Absolute 0.8 10 3/mcL Normal 0.8-3.9 [facility] ([place]) Comment on above: Performed By: #### C BC, MG, GFR, ANEU, MDW, ADIFF, DIMER, TROPHS, LIP, CMP #### [address] [address] Lymphocytes/100 WBC (Bld) 21.7 % Normal 10.0-50.0 [facility] ([place]) Comment on above: Performed By: #### C BC, MG, GFR, ANEU, MDW, ADIFF, DIMER, TROPHS, LIP, CMP #### [address] [address] Monocyte, Absolute 0.3 10 3/mcL Normal 0.2-1.0 [facility] ([place]) Comment on above: Performed By: #### C BC, MG, GFR, ANEU, MDW, ADIFF, DIMER, TROPHS, LIP, CMP #### [address] [address] Monocytes/100 WBC (Bld) 8.9 % Normal 1.7-13.0 A Counts include 234 beds at the [facility] ([place]) Comment on above: Performed By: #### C BC, MG, GFR, ANEU, MDW, ADIFF, DIMER, TROPHS, LIP, CMP #### [address] [address] Neutrophils/100 WBC (Bld) 68.0 % Normal 37.0-80.0 [facility] ([place]) Comment on above: Performed By: #### C BC, MG, GFR, ANEU, MDW, ADIFF, DIMER, TROPHS, LIP, CMP #### [address] [address] .GFRon 07-27-2023 GFR Non- 65 ml/min/1.73sqm Normal [facility] ([place]) Comment on above: Result Comment: GFR Population mean for , Non- Americans Ages 20-29 = 116 mL/min/1.73 sq.m. Ages 30-39 = 107 mL/min/1.73 sq.m. Ages 40-49 = 99 mL/min/1.73 sq.m. Ages 50-59 = 93 mL/min/1.73 sq.m. Ages 60-69 = 85 mL/min/1.73 sq.m. Ages 70+ = 75 mL/min/1.73 sq.m. Chronic Kidney Disease: Less than 60 mL/min/1.73 square meters End Stage Renal Disease: Less than 15 mL/min/1.73 square meters Performed By: #### C BC, MG, GFR, ANEU, MDW, ADIFF, DIMER, TROPHS, LIP, CMP #### [address] [address] GFR 79 ml/min/1.73sqm Normal [facility] ([place]) Comment on above: Result Comment: GFR Population mean for , Non- Americans Ages 20-29 = 116 mL/min/1.73 sq.m. Ages 30-39 = 107 mL/min/1.73 sq.m. Ages 40-49 = 99 mL/min/1.73 sq.m. Ages 50-59 = 93 mL/min/1.73 sq.m. Ages 60-69 = 85 mL/min/1.73 sq.m. Ages 70+ = 75 mL/min/1.73 sq.m. Chronic Kidney Disease: Less than 60 mL/min/1.73 square meters End Stage Renal Disease: Less than 15 mL/min/1.73 square meters Performed By: #### C BC, MG, GFR, ANEU, MDW, ADIFF, DIMER, TROPHS, LIP, CMP #### [address] [address] GFR Non- 53 ml/min/1.73sqm Normal [facility] ([place]) Comment on above: Result Comment: GFR Population mean for , Non- Americans Ages 20-29 = 116 mL/min/1.73 sq.m. Ages 30-39 = 107 mL/min/1.73 sq.m. Ages 40-49 = 99 mL/min/1.73 sq.m. Ages 50-59 = 93 mL/min/1.73 sq.m. Ages 60-69 = 85 mL/min/1.73 sq.m. Ages 70+ = 75 mL/min/1.73 sq.m. Chronic Kidney Disease: Less than 60 mL/min/1.73 square meters End Stage Renal Disease: Less than 15 mL/min/1.73 square meters Performed By: #### C BC, MG, GFR, ANEU, MDW, ADIFF, DIMER, TROPHS, LIP, CMP ####[place] [address] [place], [place] [address] GFR 65 ml/min/1.73sqm Normal [facility] ([place]) Comment on above: Result Comment: GFR Population mean for , Non- Americans Ages 20-29 = 116 mL/min/1.73 sq.m. Ages 30-39 = 107 mL/min/1.73 sq.m. Ages 40-49 = 99 mL/min/1.73 sq.m. Ages 50-59 = 93 mL/min/1.73 sq.m. Ages 60-69 = 85 mL/min/1.73 sq.m. Ages 70+ = 75 mL/min/1.73 sq.m. Chronic Kidney Disease: Less than 60 mL/min/1.73 square meters End Stage Renal Disease: Less than 15 mL/min/1.73 square meters Performed By: #### C BC, MG, GFR, ANEU, MDW, ADIFF, DIMER, TROPHS, LIP, CMP ####[address] [place], [place] [address] .MDWon 07-27-2023 Monocyte Distribution Width 18.25 Normal 0.00-20.00 [facility] ([place]) Comment on above: Result Comment: For ED adult patients suspected of sepsis, MDW<=20.0 does not rule out sepsis or risk of sepsis Performed By: #### C BC, MG, GFR, ANEU, MDW, ADIFF, DIMER, TROPHS, LIP, CMP #### [address] [id number] [place], [place] [address] .NEUABSon 07-27-2023 Neutrophil, Absolute 2.6 10 3/mcL Low 2.9-6.2 [facility] ([place]) Comment on above: Performed By: #### C BC, MG, GFR, ANEU, MDW, ADIFF, DIMER, TROPHS, LIP, CMP #### [address] [address] BMPon 07-27-2023 BUN/Creatinine Ratio 8 ratio Normal 7-27 [facility] ([place]) Comment on above: Performed By: #### C BC, MG, GFR, ANEU, MDW, ADIFF, DIMER, TROPHS, LIP, CMP #### [address] [address] Calcium [Mass/Vol] 8.4 mg/dL Normal 8.4-10.2 [facility] ([place]) Comment on above: Performed By: #### C BC, MG, GFR, ANEU, MDW, ADIFF, DIMER, TROPHS, LIP, CMP #### [address] [address] Chloride [Moles/Vol] 83 mmol/L Low 98-107 [facility] ([place]) Comment on above: Performed By: #### C BC, MG, GFR, ANEU, MDW, ADIFF, DIMER, TROPHS, LIP, CMP #### [address] [address] CO2 [Moles/Vol] 25 mmol/L Normal 23-31 [facility] ([place]) Comment on above: Performed By: #### C BC, MG, GFR, ANEU, MDW, ADIFF, DIMER, TROPHS, LIP, CMP #### [address] [address] Creatinine [Mass/Vol] 0.84 mg/dL Normal 0.55-1.02 Pending sale to [facility] ([place]) Comment on above: Performed By: #### C BC, MG, GFR, ANEU, MDW, ADIFF, DIMER, TROPHS, LIP, CMP #### [address] [address] Electrolyte Balance 11.0 mEq/L Normal 4.0-15.0 [facility] ([place]) Comment on above: Performed By: #### C BC, MG, GFR, ANEU, MDW, ADIFF, DIMER, TROPHS, LIP, CMP #### [address] [address] Glucose [Mass/Vol] 133 mg/dL High 83-110 [facility] ([place]) Comment on above: Performed By: #### C BC, MG, GFR, ANEU, MDW, ADIFF, DIMER, TROPHS, LIP, CMP #### [address] [address] Potassium [Moles/Vol] 3.4 mmol/L Low 3.5-5.1 Pending sale to [facility] ([place]) Comment on above: Performed By: #### C BC, MG, GFR, ANEU, MDW, ADIFF, DIMER, TROPHS, LIP, CMP #### [address] [address] Sodium [Moles/Vol] 119 mmol/L Critically abnormal 136-145 [facility] ([place]) Comment on above: Performed By: #### C BC, MG, GFR, ANEU, MDW, ADIFF, DIMER, TROPHS, LIP, CMP #### [address] [address] Urea nitrogen [Mass/Vol] 7 mg/dL Normal 7-18 [facility] ([place]) Comment on above: Performed By: #### C BC, MG, GFR, ANEU, MDW, ADIFF, DIMER, TROPHS, LIP, CMP #### [address] [address] CBCon 07-27-2023 Erythrocyte distribution width (RBC) [Ratio] 12.8 % Normal 11.5-14.5 [facility]) Comment on above: Performed By: #### C BC, MG, GFR, ANEU, MDW, ADIFF, DIMER, TROPHS, LIP, CMP #### [address] [address] Hematocrit (Bld) [Volume fraction] 37.5 % Normal 37.0-47.0 [facility] ([place]) Comment on above: Performed By: #### C BC, MG, GFR, ANEU, MDW, ADIFF, DIMER, TROPHS, LIP, CMP #### [address] [address] Hgb 13.3 G/dL Normal 12.0-16.0 [facility] ([place]) Comment on above: Performed By: #### C BC, MG, GFR, ANEU, MDW, ADIFF, DIMER, TROPHS, LIP, CMP #### [address] [address] MCH (RBC) [Entitic mass] 28.6 pg Normal 27.0-31.2 [facility] ([place]) Comment on above: Performed By: #### C BC, MG, GFR, ANEU, MDW, ADIFF, DIMER, TROPHS, LIP, CMP #### [place] [address] MCHC 35.4 G/dL Normal 33.0-37.0 [facility] ([place]) Comment on above: Performed By: #### C BC, MG, GFR, ANEU, MDW, ADIFF, DIMER, TROPHS, LIP, CMP #### [address] [address] MCV (RBC) [Entitic vol] 80.7 fL Normal 80.0-94.0 A Counts include 234 beds at the [facility] ([place]) Comment on above: Performed By: #### C BC, MG, GFR, ANEU, MDW, ADIFF, DIMER, TROPHS, LIP, CMP #### [address] [address] Platelet 282 10 3/mcL Normal 130-400 [facility] ([place]) Comment on above: Performed By: #### C BC, MG, GFR, ANEU, MDW, ADIFF, DIMER, TROPHS, LIP, CMP #### [address] [address] Platelet mean volume (Bld) [Entitic vol] 6.7 fL Low 7.4-10.4 [facility] ([place]) Comment on above: Performed By: #### C BC, MG, GFR, ANEU, MDW, ADIFF, DIMER, TROPHS, LIP, CMP #### [place] [address] [place], [place] [address] RBC 4.64 10 6/mcL Normal 4.20-5.40 [facility] ([place]) Comment on above: Performed By: #### C BC, MG, GFR, ANEU, MDW, ADIFF, DIMER, TROPHS, LIP, CMP #### [place] [address] [address] WBC 3.8 10 3/mcL Low 4.6-10.8 [facility] ([place]) Comment on above: Performed By: #### C BC, MG, GFR, ANEU, MDW, ADIFF, DIMER, TROPHS, LIP, CMP #### [place] [address] [address] CMPon 07-27-2023 Albumin Level 4.2 G/dL Normal 3.4-4.8 [facility] ([place]) Comment on above: Performed By: #### C BC, MG, GFR, ANEU, MDW, ADIFF, DIMER, TROPHS, LIP, CMP ####[place] [address] [place], [place] [address] Albumin/Globulin [Mass ratio] 1.4 {ratio} Normal 1.1-2.5 [facility] ([place]) Comment on above: Performed By: #### C BC, MG, GFR, ANEU, MDW, ADIFF, DIMER, TROPHS, LIP, CMP ####[place] [address] [place], [place] [address] ALP [Catalytic activity/Vol] 78 U/L Normal 40-135 [facility] ([place]) Comment on above: Performed By: #### C BC, MG, GFR, ANEU, MDW, ADIFF, DIMER, TROPHS, LIP, CMP ####[place] [address] [place], [place] [address] ALT [Catalytic activity/Vol] 19 U/L Normal 14-59 [facility] ([place]) Comment on above: Performed By: #### C BC, MG, GFR, ANEU, MDW, ADIFF, DIMER, TROPHS, LIP, CMP ####[place] [address] [place], [place] [address] AST [Catalytic activity/Vol] 21 U/L Normal 10-40 [facility] ([place]) Comment on above: Performed By: #### C BC, MG, GFR, ANEU, MDW, ADIFF, DIMER, TROPHS, LIP, CMP ####[place] [address] [place], [place] [address] Bili Total 0.6 mg/dL Normal 0.2-1.0 [facility] ([place]) Comment on above: Result Comment: Use of this assay is not recommended for patients undergoing treatment with eltrombopag due to the potential for falsely elevated results. Performed By: #### C BC, MG, GFR, ANEU, MDW, ADIFF, DIMER, TROPHS, LIP, CMP ####[place] [address] [place], [place] [address] BUN/Creatinine Ratio 7 ratio Normal 7-27 [facility] ([place]) Comment on above: Performed By: #### C BC, MG, GFR, ANEU, MDW, ADIFF, DIMER, TROPHS, LIP, CMP ####[place] [place], [place] [address] Calcium [Mass/Vol] 9.1 mg/dL Normal 8.4-10.2 [facility] ([place]) Comment on above: Performed By: #### C BC, MG, GFR, ANEU, MDW, ADIFF, DIMER, TROPHS, LIP, CMP ####[address] [place], [place] [address] Chloride [Moles/Vol] 82 mmol/L Low 98-107 [facility] ([place]) Comment on above: Performed By: #### C BC, MG, GFR, ANEU, MDW, ADIFF, DIMER, TROPHS, LIP, CMP ####[place] [address] [place], [place] [address] CO2 [Moles/Vol] 24 mmol/L Normal 23-31 [facility] ([place]) Comment on above: Performed By: #### C BC, MG, GFR, ANEU, MDW, ADIFF, DIMER, TROPHS, LIP, CMP ####[place] [address] [place], [place] [address] Creatinine [Mass/Vol] 1.00 mg/dL Normal 0.55-1.02 Pending sale to [facility] ([place]) Comment on above: Performed By: #### C BC, MG, GFR, ANEU, MDW, ADIFF, DIMER, TROPHS, LIP, CMP ####[place] [place], [place] [address] Electrolyte Balance 13.0 mEq/L Normal 4.0-15.0 [facility] ([place]) Comment on above: Performed By: #### C BC, MG, GFR, ANEU, MDW, ADIFF, DIMER, TROPHS, LIP, CMP ####[address] [place], [place] [address] Globulin 2.9 G/dL Normal [facility] ([place]) Comment on above: Performed By: #### C BC, MG, GFR, ANEU, MDW, ADIFF, DIMER, TROPHS, LIP, CMP ####[place] [address] [place], [place] [address] Glucose [Mass/Vol] 133 mg/dL High 83-110 [facility] ([place]) Comment on above: Performed By: #### C BC, MG, GFR, ANEU, MDW, ADIFF, DIMER, TROPHS, LIP, CMP ####[place] [address] [place], [place] [address] Potassium [Moles/Vol] 3.5 mmol/L Normal 3.5-5.1 Pending sale to [facility] ([place]) Comment on above: Performed By: #### C BC, MG, GFR, ANEU, MDW, ADIFF, DIMER, TROPHS, LIP, CMP ####[place] [place], [place] [address] Sodium [Moles/Vol] 119 mmol/L Critically abnormal 136-145 [facility] ([place]) Comment on above: Performed By: #### C BC, MG, GFR, ANEU, MDW, ADIFF, DIMER, TROPHS, LIP, CMP ####[place] [place], [place] [address] Total Protein 7.1 G/dL Normal 6.4-8.2 [facility] ([place]) Comment on above: Performed By: #### C BC, MG, GFR, ANEU, MDW, ADIFF, DIMER, TROPHS, LIP, CMP ####[address] [place], [place] [address] Urea nitrogen [Mass/Vol] 7 mg/dL Normal 7-18 [facility] ([place]) Comment on above: Performed By: #### C BC, MG, GFR, ANEU, MDW, ADIFF, DIMER, TROPHS, LIP, CMP ####[place] [place], [place] [address] DIMERon 07-27-2023 D-Dimer 287 ng/mL D-DU High 0-230 [facility] ([place]) Comment on above: Result Comment: Resu lts reported in D-DU ng/mL. Positive for D-dimer. A positive D-Dimer may occur in the following: DVT, PE, DIC, Trauma, Cancer, Sepsis, , Rheumatoid arthritis, Myocardial infarction and Cirrhosis. The presence of Rheumatoid Factor and HAMA (human mouse antibody) produces an overestimation of test results. The result of the D-Dimer test should be evaluated in the context of all the clinical and laboratory data available. In those instances where the laboratory result does not agree with the clinical evaluation, additional tests should be performed accordingly. If the D-Dimer result is used to exclude DVT or PE, the recommended cutoff value is less than 230 ng/mL. The D-Dimer result should not be used alone to rule in DVT/PE, but should be used in conjunction with a clinical pretest probability (PTP)assessment model to exclude venous thromboembolism (VTE) in outpatients suspected of deep venous thrombosis (DVT) and pulmonary embolism (PE). Performed By: #### C BC, MG, GFR, ANEU, MDW, ADIFF, DIMER, TROPHS, LIP, CMP #### [place] [address] [place], [place] [address] LABORATORYOrdered By: SYSTEM SYSTEM on 07-27-2023 Calcium [Mass/Vol] 8.4 mg/dL Invalid Interpretation Code 8.4 - 10.2 mg/dL AO ADM SS Chloride [Moles/Vol] 83 mmol/L Invalid Interpretation Code 98 - 107 mmol/L AO ADM SS CO2 [Moles/Vol] 25 mmol/L Invalid Interpretation Code 23 - 31 mmol/L AO ADM SS Creatinine [Mass/Vol] 0.84 mg/dL Invalid Interpretation Code 0.55 - 1.02 mg/dL AO ADM SS Electrolyte Balance 11.0 mEq/L Invalid Interpretation Code 4.0 - 15.0 mEq/L AO ADM SS GFR/1.73 sq M.predicted among blacks MDRD (S/P/Bld) [Vol rate/Area] 79 ml/min/1.73sqm Invalid Interpretation Code AO Chemistry S Comment on above: Interpretive Data: GFR Population mean for , Non- Americans Ages 20-29 = 116 mL/min/1.73 sq.m. Ages 30-39 = 107 mL/min/1.73 sq.m. Ages 40-49 = 99 mL/min/1.73 sq.m. Ages 50-59 = 93 mL/min/1.73 sq.m. Ages 60-69 = 85 mL/min/1.73 sq.m. Ages 70+ = 75 mL/min/1.73 sq.m. Chronic Kidney Disease: Less than 60 mL/min/1.73 square meters End Stage Renal Disease: Less than 15 mL/min/1.73 square meters GFR/1.73 sq M.predicted among non-blacks MDRD (S/P/Bld) [Vol rate/Area] 65 ml/min/1.73sqm Invalid Interpretation Code AO Chemistry S Comment on above: Interpretive Data: GFR Population mean for , Non- Americans Ages 20-29 = 116 mL/min/1.73 sq.m. Ages 30-39 = 107 mL/min/1.73 sq.m. Ages 40-49 = 99 mL/min/1.73 sq.m. Ages 50-59 = 93 mL/min/1.73 sq.m. Ages 60-69 = 85 mL/min/1.73 sq.m. Ages 70+ = 75 mL/min/1.73 sq.m. Chronic Kidney Disease: Less than 60 mL/min/1.73 square meters End Stage Renal Disease: Less than 15 mL/min/1.73 square meters Glucose [Mass/Vol] 133 mg/dL Invalid Interpretation Code 83 - 110 mg/dL AO ADM SS Potassium [Moles/Vol] 3.4 mmol/L Invalid Interpretation Code 3.5 - 5.1 mmol/L AO ADM SS Sodium [Moles/Vol] 119 mmol/L Invalid Interpretation Code 136 - 145 mmol/L AO ADM SS Comment on above: Result Comment: Crit ical NA cvrb Vin Rn 2223 Troponin I.cardiac DL <= 0.01 ng/mL [Mass/Vol] 15.6 ng/L Invalid Interpretation Code 0.0 - 51.4 ng/L AO ADM SS Urea nitrogen [Mass/Vol] 7 mg/dL Invalid Interpretation Code 7 - 18 mg/dL AO ADM SS Urea nitrogen/Creatinine [Mass ratio] 8 ratio Invalid Interpretation Code 7 - 27 ratio AO ADM SS Albumin BCP dye [Mass/Vol] 4.2 G/dL Invalid Interpretation Code 3.4 - 4.8 G/dL AO ADM SS Albumin/Globulin [Mass ratio] 1.4 {ratio} Invalid Interpretation Code 1.1 - 2.5 ratio AO ADM SS ALP [Catalytic activity/Vol] 78 U/L Invalid Interpretation Code 40 - 135 U/L AO ADM SS ALT With P-5'-P [Catalytic activity/Vol] 19 U/L Invalid Interpretation Code 14 - 59 U/L AO ADM SS AST With P-5'-P [Catalytic activity/Vol] 21 U/L Invalid Interpretation Code 10 - 40 U/L AO ADM SS Basophil, Absolute 0.0 103/mcL Invalid Interpretation Code 0.0 - 0.2 10^3/mcL AO Workflow SS Basophils/100 WBC (Bld) 0.4 % Invalid Interpretation Code 0.0 - 2.5 % AO Workflow SS Bilirubin [Mass/Vol] 0.6 mg/dL Invalid Interpretation Code 0.2 - 1.0 mg/dL AO ADM SS Comment on above: Interpretive Data: U se of this assay is not recommended for patients undergoing treatment with eltrombopag due to the potential for falsely elevated results. Calcium [Mass/Vol] 9.1 mg/dL Invalid Interpretation Code 8.4 - 10.2 mg/dL AO ADM SS Chloride [Moles/Vol] 82 mmol/L Invalid Interpretation Code 98 - 107 mmol/L AO ADM SS CO2 [Moles/Vol] 24 mmol/L Invalid Interpretation Code 23 - 31 mmol/L AO ADM SS Creatinine [Mass/Vol] 1.00 mg/dL Invalid Interpretation Code 0.55 - 1.02 mg/dL AO ADM SS Electrolyte Balance 13.0 mEq/L Invalid Interpretation Code 4.0 - 15.0 mEq/L AO ADM SS Eosinophil, Absolute 0.0 103/mcL Invalid Interpretation Code 0.0 - 0.4 10^3/mcL AO Workflow SS Eosinophils/100 WBC (Bld) 1.0 % Invalid Interpretation Code 0.0 - 7.0 % AO Workflow SS Erythrocyte distribution width (RBC) [Ratio] 12.8 % Invalid Interpretation Code 11.5 - 14.5 % AO Workflow SS GFR/1.73 sq M.predicted among blacks MDRD (S/P/Bld) [Vol rate/Area] 65 ml/min/1.73sqm Invalid Interpretation Code AO Chemistry S Comment on above: Interpretive Data: GFR Population mean for , Non- Americans Ages 20-29 = 116 mL/min/1.73 sq.m. Ages 30-39 = 107 mL/min/1.73 sq.m. Ages 40-49 = 99 mL/min/1.73 sq.m. Ages 50-59 = 93 mL/min/1.73 sq.m. Ages 60-69 = 85 mL/min/1.73 sq.m. Ages 70+ = 75 mL/min/1.73 sq.m. Chronic Kidney Disease: Less than 60 mL/min/1.73 square meters End Stage Renal Disease: Less than 15 mL/min/1.73 square meters GFR/1.73 sq M.predicted among non-blacks MDRD (S/P/Bld) [Vol rate/Area] 53 ml/min/1.73sqm Invalid Interpretation Code AO Chemistry S Comment on above: Interpretive Data: GFR Population mean for , Non- Americans Ages 20-29 = 116 mL/min/1.73 sq.m. Ages 30-39 = 107 mL/min/1.73 sq.m. Ages 40-49 = 99 mL/min/1.73 sq.m. Ages 50-59 = 93 mL/min/1.73 sq.m. Ages 60-69 = 85 mL/min/1.73 sq.m. Ages 70+ = 75 mL/min/1.73 sq.m. Chronic Kidney Disease: Less than 60 mL/min/1.73 square meters End Stage Renal Disease: Less than 15 mL/min/1.73 square meters Globulin 2.9 G/dL Invalid Interpretation Code AO ADM SS Glucose [Mass/Vol] 133 mg/dL Invalid Interpretation Code 83 - 110 mg/dL AO ADM SS Hematocrit (Bld) [Volume fraction] 37.5 % Invalid Interpretation Code 37.0 - 47.0 % AO Workflow SS Hemoglobin (Bld) [Mass/Vol] 13.3 G/dL Invalid Interpretation Code 12.0 - 16.0 G/dL AO Workflow SS Lipase [Catalytic activity/Vol] 33 U/L Invalid Interpretation Code 16 - 77 U/L AO ADM SS Lymphocyte, Absolute 0.8 103/mcL Invalid Interpretation Code 0.8 - 3.9 10^3/mcL AO Workflow SS Lymphocytes/100 WBC (Bld) 21.7 % Invalid Interpretation Code 10.0 - 50.0 % AO Workflow SS Magnesium [Mass/Vol] 1.4 mg/dL Invalid Interpretation Code 1.8 - 2.4 mg/dL AO ADM SS MCH (RBC) [Entitic mass] 28.6 pg Invalid Interpretation Code 27.0 - 31.2 pg AO Workflow SS MCHC 35.4 G/dL Invalid Interpretation Code 33.0 - 37.0 G/dL AO Workflow SS MCV (RBC) [Entitic vol] 80.7 fL Invalid Interpretation Code 80.0 - 94.0 fL AO Workflow SS Monocyte distribution width Auto (Bld) [Entitic vol] 18.25 1 Invalid Interpretation Code 0.00 - 20.00 AO Workflow SS Comment on above: Result Comment: For ED adult patients suspected of sepsis, MDW<=20.0 does not rule out sepsis or risk of sepsis Monocyte, Absolute 0.3 103/mcL Invalid Interpretation Code 0.2 - 1.0 10^3/mcL AO Workflow SS Monocytes/100 WBC (Bld) 8.9 % Invalid Interpretation Code 1.7 - 13.0 % AO Workflow SS Neutrophil, Absolute 2.6 103/mcL Invalid Interpretation Code 2.9 - 6.2 10^3/mcL AO Workflow SS Neutrophils/100 WBC (Bld) 68.0 % Invalid Interpretation Code 37.0 - 80.0 % AO Workflow SS Platelet mean volume (Bld) [Entitic vol] 6.7 fL Invalid Interpretation Code 7.4 - 10.4 fL AO Workflow SS Platelets (Bld) [#/Vol] 282 103/mcL Invalid Interpretation Code 130 - 400 10^3/mcL AO Workflow SS Potassium [Moles/Vol] 3.5 mmol/L Invalid Interpretation Code 3.5 - 5.1 mmol/L AO ADM SS Protein [Mass/Vol] 7.1 G/dL Invalid Interpretation Code 6.4 - 8.2 G/dL AO ADM SS RBC (Bld) [#/Vol] 4.64 106/mcL Invalid Interpretation Code 4.20 - 5.40 10^6/mcL AO Workflow SS Sodium [Moles/Vol] 119 mmol/L Invalid Interpretation Code 136 - 145 mmol/L AO ADM SS Troponin I.cardiac DL <= 0.01 ng/mL [Mass/Vol] 10.8 ng/L Invalid Interpretation Code 0.0 - 51.4 ng/L AO ADM SS Urea nitrogen [Mass/Vol] 7 mg/dL Invalid Interpretation Code 7 - 18 mg/dL AO ADM SS Urea nitrogen/Creatinine [Mass ratio] 7 ratio Invalid Interpretation Code 7 - 27 ratio AO ADM SS WBC (Bld) [#/Vol] 3.8 103/mcL Invalid Interpretation Code 4.6 - 10.8 10^3/mcL AO Workflow SS LABORATORYOrdered By: Angelo Hope on 07-27-2023 Fibrin D-dimer DDU (PPP) [Mass/Vol] 287 ng/mL D-DU Invalid Interpretation Code 0 - 230 ng/mL D-DU AO [facility] SS Comment on above: Result Comment: Resu lts reported in D-DU ng/mL. Positive for D-dimer. A positive D-Dimer may occur in the following: DVT, PE, DIC, Trauma, Cancer, Sepsis, , Rheumatoid arthritis, Myocardial infarction and Cirrhosis. The presence of Rheumatoid Factor and HAMA (human mouse antibody) produces an overestimation of test results. Interpretive Data: T he result of the D-Dimer test should be evaluated in the context of all the clinical and laboratory data available. In those instances where the laboratory result does not agree with the clinical evaluation, additional tests should be performed accordingly. If the D-Dimer result is used to exclude DVT or PE, the recommended cutoff value is less than 230 ng/mL. The D-Dimer result should not be used alone to rule in DVT/PE, but should be used in conjunction with a clinical pretest probability (PTP)assessment model to exclude venous thromboembolism (VTE) in outpatients suspected of deep venous thrombosis (DVT) and pulmonary embolism (PE). LIPon 07-27-2023 Lipase Level 33 U/L Normal 16-77 [facility] ([place]) Comment on above: Performed By: #### C BC, MG, GFR, ANEU, MDW, ADIFF, DIMER, TROPHS, LIP, CMP #### [address] [address] MGon 07-27-2023 Magnesium [Mass/Vol] 1.4 mg/dL Low 1.8-2.4 [facility] ([place]) Comment on above: Performed By: #### C BC, MG, GFR, ANEU, MDW, ADIFF, DIMER, TROPHS, LIP, CMP #### [address] [address] TROPHSon 07-27-2023 Troponin I High Sensitivity 15.6 ng/L Normal 0.0-51.4 [facility] ([place]) Comment on above: Performed By: #### C BC, MG, GFR, ANEU, MDW, ADIFF, DIMER, TROPHS, LIP, CMP #### [place] [address] Troponin I High Sensitivity 10.8 ng/L Normal 0.0-51.4 [facility] ([place]) Comment on above: Performed By: #### C BC, MG, GFR, ANEU, MDW, ADIFF, DIMER, TROPHS, LIP, CMP #### [address] [address] XR CHEST 2 VIEWSon 3 XR CHEST 2 VIEWS ORIGINAL EXAMINATION: TWO XRAY VIEWS OF THE [...] Date: 07/27/2023 8:42:35 PM Ordering Provider: RASHEL Horan [facility] ([place]) .Auto Diffon 07-26-2023 Basophil, Absolute 0.0 10 3/mcL Normal 0.0-0.2 [facility] ([place]) Comment on above: Performed By: #### C BC, MG, GFR, ANEU, MDW, ADIFF, DIMER, TROPHS, LIP, CMP #### [address] [address] Basophils/100 WBC (Bld) 0.2 % Normal 0.0-2.5 [facility] ([place]) Comment on above: Performed By: #### C BC, MG, GFR, ANEU, MDW, ADIFF, DIMER, TROPHS, LIP, CMP #### [address] [address] Eosinophil, Absolute 0.1 10 3/mcL Normal 0.0-0.4 [facility] ([place]) Comment on above: Performed By: #### C BC, MG, GFR, ANEU, MDW, ADIFF, DIMER, TROPHS, LIP, CMP #### [address] [address] Eosinophils/100 WBC (Bld) 3.1 % Normal 0.0-7.0 [facility] ([place]) Comment on above: Performed By: #### C BC, MG, GFR, ANEU, MDW, ADIFF, DIMER, TROPHS, LIP, CMP #### [address] [address] Lymphocyte, Absolute 1.2 10 3/mcL Normal 0.8-3.9 [facility] ([place]) Comment on above: Performed By: #### C BC, MG, GFR, ANEU, MDW, ADIFF, DIMER, TROPHS, LIP, CMP #### [address] [address] Lymphocytes/100 WBC (Bld) 36.0 % Normal 10.0-50.0 [facility] ([place]) Comment on above: Performed By: #### C BC, MG, GFR, ANEU, MDW, ADIFF, DIMER, TROPHS, LIP, CMP #### [address] [address] Monocyte, Absolute 0.3 10 3/mcL Normal 0.2-1.0 [facility] ([place]) Comment on above: Performed By: #### C BC, MG, GFR, ANEU, MDW, ADIFF, DIMER, TROPHS, LIP, CMP #### [address] [address] Monocytes/100 WBC (Bld) 10.6 % Normal 1.7-13.0 [facility] ([place]) Comment on above: Performed By: #### C BC, MG, GFR, ANEU, MDW, ADIFF, DIMER, TROPHS, LIP, CMP #### [address] [address] Neutrophils/100 WBC (Bld) 50.1 % Normal 37.0-80.0 [facility] ([place]) Comment on above: Performed By: #### C BC, MG, GFR, ANEU, MDW, ADIFF, DIMER, TROPHS, LIP, CMP #### [address] [address] .GFRon 07-26-2023 GFR 75 ml/min/1.73sqm Normal [facility] ([place]) Comment on above: Result Comment: GFR Population mean for , Non- Americans Ages 20-29 = 116 mL/min/1.73 sq.m. Ages 30-39 = 107 mL/min/1.73 sq.m. Ages 40-49 = 99 mL/min/1.73 sq.m. Ages 50-59 = 93 mL/min/1.73 sq.m. Ages 60-69 = 85 mL/min/1.73 sq.m. Ages 70+ = 75 mL/min/1.73 sq.m. Chronic Kidney Disease: Less than 60 mL/min/1.73 square meters End Stage Renal Disease: Less than 15 mL/min/1.73 square meters Performed By: #### C BC, MG, GFR, ANEU, MDW, ADIFF, DIMER, TROPHS, LIP, CMP #### [address] [address] GFR Non- 62 ml/min/1.73sqm Normal [facility] ([place]) Comment on above: Result Comment: GFR Population mean for , Non- Americans Ages 20-29 = 116 mL/min/1.73 sq.m. Ages 30-39 = 107 mL/min/1.73 sq.m. Ages 40-49 = 99 mL/min/1.73 sq.m. Ages 50-59 = 93 mL/min/1.73 sq.m. Ages 60-69 = 85 mL/min/1.73 sq.m. Ages 70+ = 75 mL/min/1.73 sq.m. Chronic Kidney Disease: Less than 60 mL/min/1.73 square meters End Stage Renal Disease: Less than 15 mL/min/1.73 square meters Performed By: #### C BC, MG, GFR, ANEU, MDW, ADIFF, DIMER, TROPHS, LIP, CMP #### [address] [address] .MDWon 07-26-2023 Monocyte Distribution Width 19.85 Normal 0.00-20.00 [facility] ([place]) Comment on above: Result Comment: For ED adult patients suspected of sepsis, MDW<=20.0 does not rule out sepsis or risk of sepsis Performed By: #### C BC, MG, GFR, ANEU, MDW, ADIFF, DIMER, TROPHS, LIP, CMP #### [address] [address] .NEUABSon 07-26-2023 Neutrophil, Absolute 1.6 10 3/mcL Low 2.9-6.2 [facility] ([place]) Comment on above: Performed By: #### C BC, MG, GFR, ANEU, MDW, ADIFF, DIMER, TROPHS, LIP, CMP #### [address] [address] BMPon 07-26-2023 BUN/Creatinine Ratio 10 ratio Normal 7-27 [facility] ([place]) Comment on above: Performed By: #### C BC, MG, GFR, ANEU, MDW, ADIFF, DIMER, TROPHS, LIP, CMP #### [address] [address] Calcium [Mass/Vol] 8.8 mg/dL Normal 8.4-10.2 [facility] ([place]) Comment on above: Performed By: #### C BC, MG, GFR, ANEU, MDW, ADIFF, DIMER, TROPHS, LIP, CMP #### [address] [address] Chloride [Moles/Vol] 90 mmol/L Low 98-107 [facility] ([place]) Comment on above: Performed By: #### C BC, MG, GFR, ANEU, MDW, ADIFF, DIMER, TROPHS, LIP, CMP #### [address] [address] CO2 [Moles/Vol] 27 mmol/L Normal 23-31 [facility] ([place]) Comment on above: Performed By: #### C BC, MG, GFR, ANEU, MDW, ADIFF, DIMER, TROPHS, LIP, CMP #### [address] [address] Creatinine [Mass/Vol] 0.88 mg/dL Normal 0.55-1.02 Pending sale to [facility] ([place]) Comment on above: Performed By: #### C BC, MG, GFR, ANEU, MDW, ADIFF, DIMER, TROPHS, LIP, CMP #### [address] [address] Electrolyte Balance 10.0 mEq/L Normal 4.0-15.0 [facility] ([place]) Comment on above: Performed By: #### C BC, MG, GFR, ANEU, MDW, ADIFF, DIMER, TROPHS, LIP, CMP #### [address] [address] Glucose [Mass/Vol] 115 mg/dL High 83-110 [facility] ([place]) Comment on above: Performed By: #### C BC, MG, GFR, ANEU, MDW, ADIFF, DIMER, TROPHS, LIP, CMP #### [address] [address] Potassium [Moles/Vol] 3.7 mmol/L Normal 3.5-5.1 Pending sale to [facility] ([place]) Comment on above: Performed By: #### C BC, MG, GFR, ANEU, MDW, ADIFF, DIMER, TROPHS, LIP, CMP #### [address] [address] Sodium [Moles/Vol] 127 mmol/L Low 136-145 [facility] ([place]) Comment on above: Performed By: #### C BC, MG, GFR, ANEU, MDW, ADIFF, DIMER, TROPHS, LIP, CMP #### [address] [address] Urea nitrogen [Mass/Vol] 9 mg/dL Normal 7-18 [facility] ([place]) Comment on above: Performed By: #### C BC, MG, GFR, ANEU, MDW, ADIFF, DIMER, TROPHS, LIP, CMP #### [address] [address] CBCon 07-26-2023 Erythrocyte distribution width (RBC) [Ratio] 12.9 % Normal 11.5-14.5 [facility]) Comment on above: Performed By: #### C BC, MG, GFR, ANEU, MDW, ADIFF, DIMER, TROPHS, LIP, CMP #### [address] [address] Hematocrit (Bld) [Volume fraction] 37.4 % Normal 37.0-47.0 [facility] ([place]) Comment on above: Performed By: #### C BC, MG, GFR, ANEU, MDW, ADIFF, DIMER, TROPHS, LIP, CMP #### [address] [address] Hgb 13.0 G/dL Normal 12.0-16.0 [facility] ([place]) Comment on above: Performed By: #### C BC, MG, GFR, ANEU, MDW, ADIFF, DIMER, TROPHS, LIP, CMP #### [address] [address] MCH (RBC) [Entitic mass] 28.5 pg Normal 27.0-31.2 [facility] ([place]) Comment on above: Performed By: #### C BC, MG, GFR, ANEU, MDW, ADIFF, DIMER, TROPHS, LIP, CMP #### [address] [address] MCHC 34.7 G/dL Normal 33.0-37.0 [facility] ([place]) Comment on above: Performed By: #### C BC, MG, GFR, ANEU, MDW, ADIFF, DIMER, TROPHS, LIP, CMP #### [address] [address] MCV (RBC) [Entitic vol] 81.9 fL Normal 80.0-94.0 A Counts include 234 beds at the [facility] ([place]) Comment on above: Performed By: #### C BC, MG, GFR, ANEU, MDW, ADIFF, DIMER, TROPHS, LIP, CMP #### [address] [address] Platelet 241 10 3/mcL Normal 130-400 [facility] ([place]) Comment on above: Performed By: #### C BC, MG, GFR, ANEU, MDW, ADIFF, DIMER, TROPHS, LIP, CMP #### [address] [address] Platelet mean volume (Bld) [Entitic vol] 6.6 fL Low 7.4-10.4 [facility] ([place]) Comment on above: Performed By: #### C BC, MG, GFR, ANEU, MDW, ADIFF, DIMER, TROPHS, LIP, CMP #### [address] [address] RBC 4.56 10 6/mcL Normal 4.20-5.40 [facility] [facility] ([place]) Comment on above: Performed By: #### C BC, MG, GFR, ANEU, MDW, ADIFF, DIMER, TROPHS, LIP, CMP #### [address] [place], [place] [address] WBC 3.3 10 3/mcL Low 4.6-10.8 [facility] ([place]) Comment on above: Performed By: #### C BC, MG, GFR, ANEU, MDW, ADIFF, DIMER, TROPHS, LIP, CMP #### [address] [address] [id number] 07-24-2023 SARS-CoV-2 (COVID-19) RNA YOLANDA+probe Ql (Unsp spec) Positive Abnormal Negative [facility] ([place]) Comment on above: Performed By: #### C BC, MG, GFR, ANEU, MDW, ADIFF, DIMER, TROPHS, LIP, CMP #### [address] [place], [place] [address] SARS-CoV-2 (COVID-19) RNA YOLANDA+probe Ql (Unsp spec) Normal [facility] ([place]) Comment on above: Result Comment: Posi tive results are indicative of the presence of SARS-CoV-2 RNA; clinical correlation with patient history and other diagnostic information is necessary to determine patient infection status. Positive results do not rule out bacterial infection or co-infection with other viruses. The agent detected may not be the definite cause of disease. Laboratories within the [facility] and its territories are required to report all positive results to the appropriate public health authorities. Detection of analyte target(s) does not imply that the corresponding virus(es) are infectious or are the causative agents for clinical symptoms. There is a risk of false positive values resulting from cross-contamination by target organisms, their nucleic acids or amplified product, or from non-specific signals in the assay. [facility] SARS-CoV-2 Assay is a Real-Time reverse-transcriptase polymerase chain reaction (RT-PCR) based qualitative in vitro diagnostic test intended for the qualitative detection of nucleic acid from the SARS-CoV-2 in nasopharyngeal swab specimens collected from individuals suspected of COVID-19 by their healthcare provider. Testing is limited to laboratories certified under the Clinical Laboratory Improvement Amendments of 1988 (CLIA), 42 U.S.C. ?263a, to perform moderate and high complexity tests. COVID-19 Int Performed By: #### C BC, MG, GFR, DAVID, JONATHAN, ADNELDA, DIMER, TROPHS, LIP, CMP #### [address] [address] FLURSVon 07-24-2023 Flu A PCR (AO) Negative Normal Negative [facility] ([place]) Comment on above: Result Comment: Posi tive Results: Positive Flu A/B or RSV for by PCR. Positive test results do not rule out bacterial infection or co-infection with other pathogens. Test results should be interpreted in conjunction with other laboratory and clinical data. Negative Results: Negative for by PCR. Negative test results do not preclude influenza virus or RSV infection and should not be used as the sole basis for diagnosis, treatment, or other management decisions. There is a risk of false negative RSV results when at low concentration and in the presence of co-infection with high concentration of influenza A. Invalid Results: An Invalid result (INV) was obtained. The test was repeated with similar results. REPEAT COLLECTION AND TESTING IS RECOMMENDED. The [employer] Flu A/B & RSV Assay is a real-time polymerase chain reaction (PCR) based qualitative in vitro diagnostic test for the direct detection and differentiation of influenza A virus, influenza B virus, and respiratory syncytial virus (RSV) nucleic acid in nasopharyngeal swab (REFERRAL SPECIALIST) specimens from patients with signs and symptoms of respiratory infection in conjunction with clinical and laboratory findings. The test is intended for use as an aid in the differential diagnosis of influenza A virus, influenza B virus, and RSV in humans and is not intended to detect influenza C. Performed By: #### C BC, MG, GFR, DAVID, W, ADNELDA, DIMER, TROPHS, LIP, CMP #### [address] [address] Flu B PCR (AO) Negative Normal Negative [facility] ([place]) Comment on above: Result Comment: Posi tive Results: Positive Flu A/B or RSV for by PCR. Positive test results do not rule out bacterial infection or co-infection with other pathogens. Test results should be interpreted in conjunction with other laboratory and clinical data. Negative Results: Negative for by PCR. Negative test results do not preclude influenza virus or RSV infection and should not be used as the sole basis for diagnosis, treatment, or other management decisions. There is a risk of false negative RSV results when at low concentration and in the presence of co-infection with high concentration of influenza A. Invalid Results: An Invalid result (INV) was obtained. The test was repeated with similar results. REPEAT COLLECTION AND TESTING IS RECOMMENDED. The [facility] Flu A/B & RSV Assay is a real-time polymerase chain reaction (PCR) based qualitative in vitro diagnostic test for the direct detection and differentiation of influenza A virus, influenza B virus, and respiratory syncytial virus (RSV) nucleic acid in nasopharyngeal swab (REFERRAL SPECIALIST) specimens from patients with signs and symptoms of respiratory infection in conjunction with clinical and laboratory findings. The test is intended for use as an aid in the differential diagnosis of influenza A virus, influenza B virus, and RSV in humans and is not intended to detect influenza C. Performed By: #### C BC, MG, GFR, ANEU, MDW, ADIFF, DIMER, TROPHS, LIP, CMP #### [address] [place], [place] [address] RSV PCR (AO) Negative Normal Negative [facility] ([place]) Comment on above: Result Comment: Posi tive Results: Positive Flu A/B or RSV for by PCR. Positive test results do not rule out bacterial infection or co-infection with other pathogens. Test results should be interpreted in conjunction with other laboratory and clinical data. Negative Results: Negative for by PCR. Negative test results do not preclude influenza virus or RSV infection and should not be used as the sole basis for diagnosis, treatment, or other management decisions. There is a risk of false negative RSV results when at low concentration and in the presence of co-infection with high concentration of influenza A. Invalid Results: An Invalid result (INV) was obtained. The test was repeated with similar results. REPEAT COLLECTION AND TESTING IS RECOMMENDED. The [facility] Flu A/B & RSV Assay is a real-time polymerase chain reaction (PCR) based qualitative in vitro diagnostic test for the direct detection and differentiation of influenza A virus, influenza B virus, and respiratory syncytial virus (RSV) nucleic acid in nasopharyngeal swab (REFERRAL SPECIALIST) specimens from patients with signs and symptoms of respiratory infection in conjunction with clinical and laboratory findings. The test is intended for use as an aid in the differential diagnosis of influenza A virus, influenza B virus, and RSV in humans and is not intended to detect influenza C. Performed By: #### C BC, MG, GFR, ANEU, MDW, ADIFF, DIMER, TROPHS, LIP, CMP #### [address] [place], [place] [address] LABORATORYOrdered By: Marbella Lema on 07-24-2023 FLUAV RNA YOLANDA+probe Ql (Upper resp) Negative 1 (07/24/23 2:06 PM) Invalid Interpretation Code AO Auto Urine SS Comment on above: Interpretive Data: P ositive Results: Positive Flu A/B or RSV for by PCR. Positive test results do not rule out bacterial infection or co-infection with other pathogens. Test results should be interpreted in conjunction with other laboratory and clinical data. Negative Results: Negative for by PCR. Negative test results do not preclude influenza virus or RSV infection and should not be used as the sole basis for diagnosis, treatment, or other management decisions. There is a risk of false negative RSV results when at low concentration and in the presence of co-infection with high concentration of influenza A. Invalid Results: An Invalid result (INV) was obtained. The test was repeated with similar results. REPEAT COLLECTION AND TESTING IS RECOMMENDED. The [employer] Flu A/B & RSV Assay is a real-time polymerase chain reaction (PCR) based qualitative in vitro diagnostic test for the direct detection and differentiation of influenza A virus, influenza B virus, and respiratory syncytial virus (RSV) nucleic acid in nasopharyngeal swab (REFERRAL SPECIALIST) specimens from patients with signs and symptoms of respiratory infection in conjunction with clinical and laboratory findings. The test is intended for use as an aid in the differential diagnosis of influenza A virus, influenza B virus, and RSV in humans and is not intended to detect influenza C. FLUBV RNA YOLANDA+probe Ql (Upper resp) Negative 2 (07/24/23 2:06 PM) Invalid Interpretation Code AO Auto Urine SS Comment on above: Interpretive Data: P ositive Results: Positive Flu A/B or RSV for by PCR. Positive test results do not rule out bacterial infection or co-infection with other pathogens. Test results should be interpreted in conjunction with other laboratory and clinical data. Negative Results: Negative for by PCR. Negative test results do not preclude influenza virus or RSV infection and should not be used as the sole basis for diagnosis, treatment, or other management decisions. There is a risk of false negative RSV results when at low concentration and in the presence of co-infection with high concentration of influenza A. Invalid Results: An Invalid result (INV) was obtained. The test was repeated with similar results. REPEAT COLLECTION AND TESTING IS RECOMMENDED. The [facility] Flu A/B & RSV Assay is a real-time polymerase chain reaction (PCR) based qualitative in vitro diagnostic test for the direct detection and differentiation of influenza A virus, influenza B virus, and respiratory syncytial virus (RSV) nucleic acid in nasopharyngeal swab (REFERRAL SPECIALIST) specimens from patients with signs and symptoms of respiratory infection in conjunction with clinical and laboratory findings. The test is intended for use as an aid in the differential diagnosis of influenza A virus, influenza B virus, and RSV in humans and is not intended to detect influenza C. RSV RNA YOLANDA+probe Ql (Upper resp) Negative 3 (07/24/23 2:06 PM) Invalid Interpretation Code AO Auto Urine SS Comment on above: Interpretive Data: P ositive Results: Positive Flu A/B or RSV for by PCR. Positive test results do not rule out bacterial infection or co-infection with other pathogens. Test results should be interpreted in conjunction with other laboratory and clinical data. Negative Results: Negative for by PCR. Negative test results do not preclude influenza virus or RSV infection and should not be used as the sole basis for diagnosis, treatment, or other management decisions. There is a risk of false negative RSV results when at low concentration and in the presence of co-infection with high concentration of influenza A. Invalid Results: An Invalid result (INV) was obtained. The test was repeated with similar results. REPEAT COLLECTION AND TESTING IS RECOMMENDED. The [facility] Flu A/B & RSV Assay is a real-time polymerase chain reaction (PCR) based qualitative in vitro diagnostic test for the direct detection and differentiation of influenza A virus, influenza B virus, and respiratory syncytial virus (RSV) nucleic acid in nasopharyngeal swab (REFERRAL SPECIALIST) specimens from patients with signs and symptoms of respiratory infection in conjunction with clinical and laboratory findings. The test is intended for use as an aid in the differential diagnosis of influenza A virus, influenza B virus, and RSV in humans and is not intended to detect influenza C. SARS-CoV-2 (COVID-19) RNA YOLANDA+probe Ql (Resp) Positive results are indicative of the presence of SARS-CoV-2 RNA; clinical correlation with patient history and other diagnostic information is necessary to determine patient infection status. Positive results do not rule out bacterial infection or co-infection with other viruses. The agent detected may not be the definite cause of disease. Laboratories within the [place] and its territories are required to report all positive results to the appropriate public health authorities.Detection of analyte target(s) does not imply that the corresponding virus(es) are infectious or are the causative agents for clinical symptoms.There is a risk of false positive values resulting from cross-contamination by target organisms, their nucleic acids or amplified product, or from non-specific signals in the assay.[employer] SARS-CoV-2 Assay is a Real-Time reverse-transcriptase polymerase chain reaction (RT-PCR) based qualitative in vitro diagnostic test intended for the qualitative detection of nucleic acid from the SARS-CoV-2 in nasopharyngeal swab specimens collected from individuals suspected of COVID-19 by their healthcare provider. Testing is limited to laboratories certified under the Clinical Laboratory Improvement Amendments of 1988 (CLIA), 42 U.S.C. 263a, to perform moderate and high complexity tests. Invalid Interpretation Code AO Auto Urine SS .GFRon 07-16-2023 GFR Non- 60 ml/min/1.73sqm Normal [facility] ([place]) Comment on above: Result Comment: GFR Population mean for , Non- Americans Ages 20-29 = 116 mL/min/1.73 sq.m. Ages 30-39 = 107 mL/min/1.73 sq.m. Ages 40-49 = 99 mL/min/1.73 sq.m. Ages 50-59 = 93 mL/min/1.73 sq.m. Ages 60-69 = 85 mL/min/1.73 sq.m. Ages 70+ = 75 mL/min/1.73 sq.m. Chronic Kidney Disease: Less than 60 mL/min/1.73 square meters End Stage Renal Disease: Less than 15 mL/min/1.73 square meters Performed By: #### C BC, MG, GFR, ANEU, MDW, ADIFF, DIMER, TROPHS, LIP, CMP #### [address] [address] [address] GFR 73 ml/min/1.73sqm Normal [facility] ([place]) Comment on above: Result Comment: GFR Population mean for , Non- Americans Ages 20-29 = 116 mL/min/1.73 sq.m. Ages 30-39 = 107 mL/min/1.73 sq.m. Ages 40-49 = 99 mL/min/1.73 sq.m. Ages 50-59 = 93 mL/min/1.73 sq.m. Ages 60-69 = 85 mL/min/1.73 sq.m. Ages 70+ = 75 mL/min/1.73 sq.m. Chronic Kidney Disease: Less than 60 mL/min/1.73 square meters End Stage Renal Disease: Less than 15 mL/min/1.73 square meters Performed By: #### C BC, MG, GFR, ANEU, MDW, ADIFF, DIMER, TROPHS, LIP, CMP #### [address] [address] CMPon 07-16-2023 Albumin Level 2.6 G/dL Low 3.4-4.8 [facility] ([place]) Comment on above: Performed By: #### C BC, MG, GFR, ANEU, MDW, ADIFF, DIMER, TROPHS, LIP, CMP #### [address] [address] Albumin/Globulin [Mass ratio] 0.6 {ratio} Low 1.1-2.5 [facility] ([place]) Comment on above: Performed By: #### C BC, MG, GFR, ANEU, MDW, ADIFF, DIMER, TROPHS, LIP, CMP #### [address] [address] ALP [Catalytic activity/Vol] 82 U/L Normal 40-135 [facility] ([place]) Comment on above: Performed By: #### C BC, MG, GFR, ANEU, MDW, ADIFF, DIMER, TROPHS, LIP, CMP #### [address] [address] ALT [Catalytic activity/Vol] 21 U/L Normal 14-59 [facility] ([place]) Comment on above: Performed By: #### C BC, MG, GFR, ANEU, MDW, ADIFF, DIMER, TROPHS, LIP, CMP #### [address] [address] AST [Catalytic activity/Vol] 17 U/L Normal 10-40 [facility] ([place]) Comment on above: Performed By: #### C BC, MG, GFR, ANEU, MDW, ADIFF, DIMER, TROPHS, LIP, CMP #### [address] [address] Bili Total 0.3 mg/dL Normal 0.2-1.0 [facility] ([place]) Comment on above: Result Comment: Use of this assay is not recommended for patients undergoing treatment with eltrombopag due to the potential for falsely elevated results. Performed By: #### C BC, MG, GFR, ANEU, MDW, ADIFF, DIMER, TROPHS, LIP, CMP #### [address] [address] BUN/Creatinine Ratio 9 ratio Normal 7-27 [facility] ([place]) Comment on above: Performed By: #### C BC, MG, GFR, ANEU, MDW, ADIFF, DIMER, TROPHS, LIP, CMP #### [address] [address] Calcium [Mass/Vol] 9.0 mg/dL Normal 8.4-10.2 [facility] ([place]) Comment on above: Performed By: #### C BC, MG, GFR, ANEU, MDW, ADIFF, DIMER, TROPHS, LIP, CMP #### [address] [address] Chloride [Moles/Vol] 95 mmol/L Low 98-107 [facility] ([place]) Comment on above: Performed By: #### C BC, MG, GFR, ANEU, MDW, ADIFF, DIMER, TROPHS, LIP, CMP #### [address] [address] CO2 [Moles/Vol] 30 mmol/L Normal 23-31 [facility] ([place]) Comment on above: Performed By: #### C BC, MG, GFR, ANEU, MDW, ADIFF, DIMER, TROPHS, LIP, CMP #### [address] [address] Creatinine [Mass/Vol] 0.90 mg/dL Normal 0.55-1.02 Pending [facility] to [facility] ([place]) Comment on above: Performed By: #### C BC, MG, GFR, ANEU, MDW, ADIFF, DIMER, TROPHS, LIP, CMP #### [address] [address] Electrolyte Balance 9.0 mEq/L Normal 4.0-15.0 [facility] ([place]) Comment on above: Performed By: #### C BC, MG, GFR, ANEU, MDW, ADIFF, DIMER, TROPHS, LIP, CMP #### [address] [address] Globulin 4.5 G/dL Normal [facility] ([place]) Comment on above: Performed By: #### C BC, MG, GFR, ANEU, MDW, ADIFF, DIMER, TROPHS, LIP, CMP #### [address] [address] Glucose [Mass/Vol] 108 mg/dL Normal 83-110 [facility] ([place]) Comment on above: Performed By: #### C BC, MG, GFR, ANEU, MDW, ADIFF, DIMER, TROPHS, LIP, CMP #### [address] [address] Potassium [Moles/Vol] 4.7 mmol/L Normal 3.5-5.1 Pending [facility] to [facility] ([place]) Comment on above: Performed By: #### C BC, MG, GFR, ANEU, MDW, ADIFF, DIMER, TROPHS, LIP, CMP #### [address] [address] Sodium [Moles/Vol] 134 mmol/L Low 136-145 [facility] ([place]) Comment on above: Performed By: #### C BC, MG, GFR, ANEU, MDW, ADIFF, DIMER, TROPHS, LIP, CMP #### [address] [address] Total Protein 7.1 G/dL Normal 6.4-8.2 [facility] ([place]) Comment on above: Performed By: #### C BC, MG, GFR, ANEU, MDW, ADIFF, DIMER, TROPHS, LIP, CMP #### [address] [address] Urea nitrogen [Mass/Vol] 8 mg/dL Normal 7-18 [facility] ([place]) Comment on above: Performed By: #### C BC, MG, GFR, ANEU, MDW, ADIFF, DIMER, TROPHS, LIP, CMP #### [address] [place], [place] [address] LABORATORYOrdered By: SYSTEM SYSTEM on 07-16-2023 Albumin BCP dye [Mass/Vol] 2.6 G/dL Invalid Interpretation Code 3.4 - 4.8 G/dL AO ADM SS Albumin/Globulin [Mass ratio] 0.6 {ratio} Invalid Interpretation Code 1.1 - 2.5 ratio AO ADM SS ALP [Catalytic activity/Vol] 82 U/L Invalid Interpretation Code 40 - 135 U/L AO ADM SS ALT With P-5'-P [Catalytic activity/Vol] 21 U/L Invalid Interpretation Code 14 - 59 U/L AO ADM SS AST With P-5'-P [Catalytic activity/Vol] 17 U/L Invalid Interpretation Code 10 - 40 U/L AO ADM SS Bilirubin [Mass/Vol] 0.3 mg/dL Invalid Interpretation Code 0.2 - 1.0 mg/dL AO ADM SS Comment on above: Interpretive Data: U se of this assay is not recommended for patients undergoing treatment with eltrombopag due to the potential for falsely elevated results. Calcium [Mass/Vol] 9.0 mg/dL Invalid Interpretation Code 8.4 - 10.2 mg/dL AO ADM SS Chloride [Moles/Vol] 95 mmol/L Invalid Interpretation Code 98 - 107 mmol/L AO ADM SS CO2 [Moles/Vol] 30 mmol/L Invalid Interpretation Code 23 - 31 mmol/L AO ADM SS Creatinine [Mass/Vol] 0.90 mg/dL Invalid Interpretation Code 0.55 - 1.02 mg/dL AO ADM SS Electrolyte Balance 9.0 mEq/L Invalid Interpretation Code 4.0 - 15.0 mEq/L AO ADM SS GFR/1.73 sq M.predicted among blacks MDRD (S/P/Bld) [Vol rate/Area] 73 ml/min/1.73sqm Invalid Interpretation Code AO Chemistry S Comment on above: Interpretive Data: GFR Population mean for , Non- Americans Ages 20-29 = 116 mL/min/1.73 sq.m. Ages 30-39 = 107 mL/min/1.73 sq.m. Ages 40-49 = 99 mL/min/1.73 sq.m. Ages 50-59 = 93 mL/min/1.73 sq.m. Ages 60-69 = 85 mL/min/1.73 sq.m. Ages 70+ = 75 mL/min/1.73 sq.m. Chronic Kidney Disease: Less than 60 mL/min/1.73 square meters End Stage Renal Disease: Less than 15 mL/min/1.73 square meters GFR/1.73 sq M.predicted among non-blacks MDRD (S/P/Bld) [Vol rate/Area] 60 ml/min/1.73sqm Invalid Interpretation Code AO Chemistry S Comment on above: Interpretive Data: GFR Population mean for , Non- Americans Ages 20-29 = 116 mL/min/1.73 sq.m. Ages 30-39 = 107 mL/min/1.73 sq.m. Ages 40-49 = 99 mL/min/1.73 sq.m. Ages 50-59 = 93 mL/min/1.73 sq.m. Ages 60-69 = 85 mL/min/1.73 sq.m. Ages 70+ = 75 mL/min/1.73 sq.m. Chronic Kidney Disease: Less than 60 mL/min/1.73 square meters End Stage Renal Disease: Less than 15 mL/min/1.73 square meters Globulin 4.5 G/dL Invalid Interpretation Code AO ADM SS Glucose [Mass/Vol] 108 mg/dL Invalid Interpretation Code 83 - 110 mg/dL AO ADM SS Potassium [Moles/Vol] 4.7 mmol/L Invalid Interpretation Code 3.5 - 5.1 mmol/L AO ADM SS Protein [Mass/Vol] 7.1 G/dL Invalid Interpretation Code 6.4 - 8.2 G/dL AO ADM SS Sodium [Moles/Vol] 134 mmol/L Invalid Interpretation Code 136 - 145 mmol/L AO ADM SS Urea nitrogen [Mass/Vol] 8 mg/dL Invalid Interpretation Code 7 - 18 mg/dL AO ADM SS Urea nitrogen/Creatinine [Mass ratio] 9 ratio Invalid Interpretation Code 7 - 27 ratio AO ADM SS .GFRon 07-03-2023 GFR 65 ml/min/1.73sqm Normal [facility] ([place]) Comment on above: Result Comment: GFR Population mean for , Non- Americans Ages 20-29 = 116 mL/min/1.73 sq.m. Ages 30-39 = 107 mL/min/1.73 sq.m. Ages 40-49 = 99 mL/min/1.73 sq.m. Ages 50-59 = 93 mL/min/1.73 sq.m. Ages 60-69 = 85 mL/min/1.73 sq.m. Ages 70+ = 75 mL/min/1.73 sq.m. Chronic Kidney Disease: Less than 60 mL/min/1.73 square meters End Stage Renal Disease: Less than 15 mL/min/1.73 square meters Performed By: #### M G, FT3, LIPID, VIDH, CMP, GFR, FT4, TSH ####[id number] [place] [address]#### B12 ####[place] [address] GFR Non- 53 ml/min/1.73sqm Normal [facility] ([place]) Comment on above: Result Comment: GFR Population mean for , Non- Americans Ages 20-29 = 116 mL/min/1.73 sq.m. Ages 30-39 = 107 mL/min/1.73 sq.m. Ages 40-49 = 99 mL/min/1.73 sq.m. Ages 50-59 = 93 mL/min/1.73 sq.m. Ages 60-69 = 85 mL/min/1.73 sq.m. Ages 70+ = 75 mL/min/1.73 sq.m. Chronic Kidney Disease: Less than 60 mL/min/1.73 square meters End Stage Renal Disease: Less than 15 mL/min/1.73 square meters Performed By: #### M G, FT3, LIPID, VIDH, CMP, GFR, FT4, TSH ####[id number] [place], [place] [address]#### B12 ####[place] [id number] [place] [address] B12on 07-03-2023 Cobalamin (Vitamin B12) [Mass/Vol] 711 pg/mL Normal 211-911 [facility] ([place]) Comment on above: Performed By: #### C BC, MG, GFR, ANEU, MDW, ADIFF, DIMER, TROPHS, LIP, CMP #### [address] [address] CMPon 07-03-2023 Albumin Level 4.1 G/dL Normal 3.4-4.8 [facility] ([place]) Comment on above: Performed By: #### C BC, MG, GFR, ANEU, MDW, ADIFF, DIMER, TROPHS, LIP, CMP #### [address] [address] Albumin/Globulin [Mass ratio] 1.3 {ratio} Normal 1.1-2.5 [facility] ([place]) Comment on above: Performed By: #### C BC, MG, GFR, ANEU, MDW, ADIFF, DIMER, TROPHS, LIP, CMP #### [address] [address] ALP [Catalytic activity/Vol] 78 U/L Normal 40-135 [facility] ([place]) Comment on above: Performed By: #### C BC, MG, GFR, ANEU, MDW, ADIFF, DIMER, TROPHS, LIP, CMP #### [address] [address] ALT [Catalytic activity/Vol] 23 U/L Normal 14-59 [facility] ([place]) Comment on above: Performed By: #### C BC, MG, GFR, ANEU, MDW, ADIFF, DIMER, TROPHS, LIP, CMP #### [address] [address] AST [Catalytic activity/Vol] 20 U/L Normal 10-40 [facility] ([place]) Comment on above: Performed By: #### C BC, MG, GFR, ANEU, MDW, ADIFF, DIMER, TROPHS, LIP, CMP #### [address] [address] Bili Total 0.5 mg/dL Normal 0.2-1.0 [facility] ([place]) Comment on above: Result Comment: Use of this assay is not recommended for patients undergoing treatment with eltrombopag due to the potential for falsely elevated results. Performed By: #### C BC, MG, GFR, ANEU, MDW, ADIFF, DIMER, TROPHS, LIP, CMP #### [address] [address] BUN/Creatinine Ratio 13 ratio Normal 7-27 [facility] ([place]) Comment on above: Performed By: #### C BC, MG, GFR, ANEU, MDW, ADIFF, DIMER, TROPHS, LIP, CMP #### [address] [address] Calcium [Mass/Vol] 9.3 mg/dL Normal 8.4-10.2 [facility] [facility] ([place]) Comment on above: Performed By: #### C BC, MG, GFR, ANEU, MDW, ADIFF, DIMER, TROPHS, LIP, CMP #### [address] [address] Chloride [Moles/Vol] 94 mmol/L Low 98-107 [facility] ([place]) Comment on above: Performed By: #### C BC, MG, GFR, ANEU, MDW, ADIFF, DIMER, TROPHS, LIP, CMP #### [address] [address] CO2 [Moles/Vol] 32 mmol/L High 23-31 [facility] ([place]) Comment on above: Performed By: #### C BC, MG, GFR, ANEU, MDW, ADIFF, DIMER, TROPHS, LIP, CMP #### [address] [address] Creatinine [Mass/Vol] 1.00 mg/dL Normal 0.55-1.02 Pending sale to [facility] ([place]) Comment on above: Performed By: #### C BC, MG, GFR, ANEU, MDW, ADIFF, DIMER, TROPHS, LIP, CMP #### [address] [address] Electrolyte Balance 6.0 mEq/L Normal 4.0-15.0 [facility] ([place]) Comment on above: Performed By: #### C BC, MG, GFR, ANEU, MDW, ADIFF, DIMER, TROPHS, LIP, CMP #### [address] [address] Globulin 3.1 G/dL Normal [facility] ([place]) Comment on above: Performed By: #### C BC, MG, GFR, ANEU, MDW, ADIFF, DIMER, TROPHS, LIP, CMP #### [place] [address] Glucose [Mass/Vol] 96 mg/dL Normal 83-110 [facility] ([place]) Comment on above: Performed By: #### C BC, MG, GFR, ANEU, MDW, ADIFF, DIMER, TROPHS, LIP, CMP #### [address] [address] Potassium [Moles/Vol] 4.4 mmol/L Normal 3.5-5.1 Pending sale to [facility] ([place]) Comment on above: Performed By: #### C BC, MG, GFR, ANEU, MDW, ADIFF, DIMER, TROPHS, LIP, CMP #### [address] [address] Sodium [Moles/Vol] 132 mmol/L Low 136-145 [facility] ([place]) Comment on above: Performed By: #### C BC, MG, GFR, ANEU, MDW, ADIFF, DIMER, TROPHS, LIP, CMP #### [address] [address] Total Protein 7.2 G/dL Normal 6.4-8.2 [facility] ([place]) Comment on above: Performed By: #### C BC, MG, GFR, ANEU, MDW, ADIFF, DIMER, TROPHS, LIP, CMP #### [address] [address] Urea nitrogen [Mass/Vol] 13 mg/dL Normal 7-18 [facility] ([place]) Comment on above: Performed By: #### C BC, MG, GFR, ANEU, MDW, ADIFF, DIMER, TROPHS, LIP, CMP #### [place] [id number] [place], [place] [address] FT3on 07-03-2023 Free T3 [Mass/Vol] 2.76 pg/mL Normal 2.30-4.00 [facility] ([place]) Comment on above: Performed By: #### M G, FT3, LIPID, VIDH, CMP, GFR, FT4, TSH ####[place] [address]#### B12 ####[address] [address] FT4on 07-03-2023 Free T4 [Mass/Vol] 1.21 ng/dL Normal 0.76-1.46 [facility] ([place]) Comment on above: Performed By: #### M G, FT3, LIPID, VIDH, CMP, GFR, FT4, TSH ####[place] [address]#### B12 ####[address] [address] LIPIDon 07-03-2023 Cholesterol [Mass/Vol] 265 mg/dL High 0-200 [facility] ([place]) Comment on above: Result Comment: Chol esterol Reference Interval: Less than 200 Desirable 200-239 Borderline high risk 240 and above High risk Performed By: #### C BC, MG, GFR, ANEU, MDW, ADIFF, DIMER, TROPHS, LIP, CMP #### [address] [address] Cholesterol in HDL [Mass/Vol] 89 mg/dL High 40-60 [facility] ([place]) Comment on above: Performed By: #### C BC, MG, GFR, ANEU, MDW, ADIFF, DIMER, TROPHS, LIP, CMP #### [address] [address] Cholesterol in LDL [Mass/Vol] 167 mg/dL High 0-130 [facility] ([place]) Comment on above: Performed By: #### C BC, MG, GFR, ANEU, MDW, ADIFF, DIMER, TROPHS, LIP, CMP #### [facility] [address] [address] Triglyceride [Mass/Vol] 47 mg/dL Normal 0-150 A Counts include 234 beds at the [facility] ([place]) Comment on above: Result Comment: Trig lyceride Reference Interval: Less than 150 Normal 150-199 Borderline high risk 200-499 High risk 500 or higher Very high risk Performed By: #### C BC, MG, GFR, ANEU, MDW, ADIFF, DIMER, TROPHS, LIP, CMP #### [facility] [address] [address] MGon 07-03-2023 Magnesium [Mass/Vol] 1.8 mg/dL Normal 1.8-2.4 [facility] ([place]) Comment on above: Performed By: #### M G, FT3, LIPID, VIDH, CMP, GFR, FT4, TSH ####[place] [address]#### B12 ####[place] [address] TSHon 07-03-2023 TSH Qn 0.71 m[IU]/L Normal 0.36-3.74 [facility] ([place]) Comment on above: Performed By: #### M G, FT3, LIPID, VIDH, CMP, GFR, FT4, TSH ####[place] [address]#### B12 ####[place] [address] VIDHon 07-03-2023 Vit. D 25-Hydroxy 55.3 ng/mL Normal [facility] ([place]) Comment on above: Result Comment: Inte rpretive Values Based on Total 25(OH) Vitamin D: Deficient <20 ng/mL Insufficient 20 - <30 ng/mL Sufficient 30-100 ng/mL Performed By: #### M G, FT3, LIPID, VIDH, CMP, GFR, FT4, TSH ####[facility] [address] [place], [place] [address]#### B12 ####[facility] [place] [address] LABORATORYOrdered By: SYSTEM SYSTEM on 03-21-2023 25-hydroxyvitamin D3 [Mass/Vol] 59.2 ng/mL Invalid Interpretation Code AO ADM SS Albumin BCP dye [Mass/Vol] 4.3 G/dL Invalid Interpretation Code 3.4 - 4.8 G/dL AO ADM SS Albumin/Globulin [Mass ratio] 1.6 {ratio} Invalid Interpretation Code 1.1 - 2.5 ratio AO ADM SS ALP [Catalytic activity/Vol] 84 U/L Invalid Interpretation Code 40 - 135 U/L AO ADM SS ALT With P-5'-P [Catalytic activity/Vol] 22 U/L Invalid Interpretation Code 14 - 59 U/L AO ADM SS AST With P-5'-P [Catalytic activity/Vol] 22 U/L Invalid Interpretation Code 10 - 40 U/L AO ADM SS Bilirubin [Mass/Vol] 0.4 mg/dL Invalid Interpretation Code 0.2 - 1.0 mg/dL AO ADM SS Calcium [Mass/Vol] 9.8 mg/dL Invalid Interpretation Code 8.4 - 10.2 mg/dL AO ADM SS Chloride [Moles/Vol] 97 mmol/L Invalid Interpretation Code 98 - 107 mmol/L AO ADM SS CO2 [Moles/Vol] 32 mmol/L Invalid Interpretation Code 23 - 31 mmol/L AO ADM SS Cobalamin (Vitamin B12) [Mass/Vol] 242 pg/mL Invalid Interpretation Code 211 - 911 pg/mL AH ADM SS Creatinine [Mass/Vol] 0.91 mg/dL Invalid Interpretation Code 0.55 - 1.02 mg/dL AO ADM SS Electrolyte Balance 7.0 mEq/L Invalid Interpretation Code 4.0 - 15.0 mEq/L AO ADM SS GFR/1.73 sq M.predicted among blacks MDRD (S/P/Bld) [Vol rate/Area] 72 ml/min/1.73sqm Invalid Interpretation Code AO Chemistry S GFR/1.73 sq M.predicted among non-blacks MDRD (S/P/Bld) [Vol rate/Area] 60 ml/min/1.73sqm Invalid Interpretation Code AO Chemistry S Globulin 2.7 G/dL Invalid Interpretation Code AO ADM SS Glucose [Mass/Vol] 99 mg/dL Invalid Interpretation Code 83 - 110 mg/dL AO ADM SS Magnesium [Mass/Vol] 1.8 mg/dL Invalid Interpretation Code 1.8 - 2.4 mg/dL AO ADM SS Potassium [Moles/Vol] 4.6 mmol/L Invalid Interpretation Code 3.5 - 5.1 mmol/L AO ADM SS Protein [Mass/Vol] 7.0 G/dL Invalid Interpretation Code 6.4 - 8.2 G/dL AO ADM SS Sodium [Moles/Vol] 136 mmol/L Invalid Interpretation Code 136 - 145 mmol/L AO ADM SS TSH Qn 0.19 m[IU]/L Invalid Interpretation Code 0.36 - 3.74 mcIU/mL AO ADM SS Urea nitrogen [Mass/Vol] 14 mg/dL Invalid Interpretation Code 7 - 18 mg/dL AO ADM SS Urea nitrogen/Creatinine [Mass ratio] 15 ratio Invalid Interpretation Code 7 - 27 ratio AO ADM SS LABORATORYOrdered By: SYSTEM SYSTEM on 12-26-2022 Albumin BCP dye [Mass/Vol] 4.3 G/dL Invalid Interpretation Code 3.4 - 4.8 G/dL AO ADM SS Albumin/Globulin [Mass ratio] 1.7 {ratio} Invalid Interpretation Code 1.1 - 2.5 ratio AO ADM SS ALP [Catalytic activity/Vol] 81 U/L Invalid Interpretation Code 40 - 135 U/L AO ADM SS ALT With P-5'-P [Catalytic activity/Vol] 19 U/L Invalid Interpretation Code 14 - 59 U/L AO ADM SS AST With P-5'-P [Catalytic activity/Vol] 16 U/L Invalid Interpretation Code 10 - 40 U/L AO ADM SS Bilirubin [Mass/Vol] 0.4 mg/dL Invalid Interpretation Code 0.2 - 1.0 mg/dL AO ADM SS Calcium [Mass/Vol] 9.2 mg/dL Invalid Interpretation Code 8.4 - 10.2 mg/dL AO ADM SS Chloride [Moles/Vol] 93 mmol/L Invalid Interpretation Code 98 - 107 mmol/L AO ADM SS CO2 [Moles/Vol] 28 mmol/L Invalid Interpretation Code 23 - 31 mmol/L AO ADM SS Creatinine [Mass/Vol] 0.79 mg/dL Invalid Interpretation Code 0.55 - 1.02 mg/dL AO ADM SS Electrolyte Balance 9.0 mEq/L Invalid Interpretation Code 4.0 - 15.0 mEq/L AO ADM SS GFR 85 ml/min/1.73sqm Invalid Interpretation Code AO Chemistry S GFR Non- 70 ml/min/1.73sqm Inval id Interpretation Code AO Chemistry S Globulin 2.5 G/dL Invalid Interpretation Code AO ADM SS Glucose [Mass/Vol] 83 mg/dL Invalid Interpretation Code 83 - 110 mg/dL AO ADM SS Potassium [Moles/Vol] 5.0 mmol/L Invalid Interpretation Code 3.5 - 5.1 mmol/L AO ADM SS Protein [Mass/Vol] 6.8 G/dL Invalid Interpretation Code 6.4 - 8.2 G/dL AO ADM SS Sodium [Moles/Vol] 130 mmol/L Invalid Interpretation Code 136 - 145 mmol/L AO ADM SS TSH Qn 0.80 m[IU]/L Invalid Interpretation Code 0.36 - 3.74 mcIU/mL AO ADM SS Urea nitrogen [Mass/Vol] 13 mg/dL Invalid Interpretation Code 7 - 18 mg/dL AO ADM SS Urea nitrogen/Creatinine [Mass ratio] 16 ratio Invalid Interpretation Code 7 - 27 ratio AO ADM SS LABORATORYOrdered By: Carolynn Weathers on 12-26-2022 Albumin DL <= 20 mg/L (U) [Mass/Vol] 1688 mcg/dL Invalid Interpretation Code AO ADM SS Albumin/Creatinine DL <= 20 mg/L (U) [Mass ratio] 38 mcg/mg Invalid Interpretation Code 0 - 30 mcg/mg AO ADM SS Creatinine (U) [Mass/Vol] 44.4 mg/dL Invalid Interpretation Code 28.0 - 117.0 mg/dL AO ADM SS LABORATORYOrdered By: Marbella Lema on 04-19-2022 Calcium [Mass/Vol] 9.1 mg/dL Invalid Interpretation Code 8.4 - 10.2 mg/dL AO ADM SS Chloride [Moles/Vol] 95 mmol/L Invalid Interpretation Code 98 - 107 mmol/L AO ADM SS CO2 [Moles/Vol] 33 mmol/L Invalid Interpretation Code 23 - 31 mmol/L AO ADM SS Creatinine [Mass/Vol] 0.95 mg/dL Invalid Interpretation Code 0.55 - 1.02 mg/dL AO ADM SS Electrolyte Balance 4.0 mEq/L Invalid Interpretation Code 4.0 - 15.0 mEq/L AO ADM SS Glucose [Mass/Vol] 91 mg/dL Invalid Interpretation Code 83 - 110 mg/dL AO ADM SS Potassium [Moles/Vol] 4.8 mmol/L Invalid Interpretation Code 3.5 - 5.1 mmol/L AO ADM SS Sodium [Moles/Vol] 132 mmol/L Invalid Interpretation Code 136 - 145 mmol/L AO ADM SS Urea nitrogen [Mass/Vol] 15 mg/dL Invalid Interpretation Code 7 - 18 mg/dL AO ADM SS Urea nitrogen/Creatinine [Mass ratio] 16 ratio Invalid Interpretation Code 7 ratio AO ADM SS LABORATORYOrdered By: SYSTEM SYSTEM on 04-19-2022 GFR 69 ml/min/1.73sqm Invalid Interpretation Code AO Chemistry S GFR Non- 57 ml/min/1.73sqm Inval id Interpretation Code AO Chemistry S LABORATORYOrdered By: Carolynn Weathers on 04-05-2022 Albumin BCP dye [Mass/Vol] 4.6 G/dL Invalid Interpretation Code 3.4 - 4.8 G/dL AO ADM SS Albumin/Globulin [Mass ratio] 1.6 {ratio} Invalid Interpretation Code 1.1 - 2.5 ratio AO ADM SS ALP [Catalytic activity/Vol] 77 U/L Invalid Interpretation Code 40 - 135 U/L AO ADM SS ALT With P-5'-P [Catalytic activity/Vol] 27 U/L Invalid Interpretation Code 14 - 59 U/L AO ADM SS AST With P-5'-P [Catalytic activity/Vol] 21 U/L Invalid Interpretation Code 10 - 40 U/L AO ADM SS Bilirubin [Mass/Vol] 0.4 mg/dL Invalid Interpretation Code 0.2 - 1.0 mg/dL AO ADM SS Calcium [Mass/Vol] 9.5 mg/dL Invalid Interpretation Code 8.4 - 10.2 mg/dL AO ADM SS Chloride [Moles/Vol] 90 mmol/L Invalid Interpretation Code 98 - 107 mmol/L AO ADM SS CO2 [Moles/Vol] 31 mmol/L Invalid Interpretation Code 23 - 31 mmol/L AO ADM SS Creatinine [Mass/Vol] 0.92 mg/dL Invalid Interpretation Code 0.55 - 1.02 mg/dL AO ADM SS Electrolyte Balance 6.0 mEq/L Invalid Interpretation Code 4.0 - 15.0 mEq/L AO ADM SS Globulin 2.9 G/dL Invalid Interpretation Code AO ADM SS Glucose [Mass/Vol] 85 mg/dL Invalid Interpretation Code 83 - 110 mg/dL AO ADM SS Potassium [Moles/Vol] 4.8 mmol/L Invalid Interpretation Code 3.5 - 5.1 mmol/L AO ADM SS Protein [Mass/Vol] 7.5 G/dL Invalid Interpretation Code 6.4 - 8.2 G/dL AO ADM SS Sodium [Moles/Vol] 127 mmol/L Invalid Interpretation Code 136 - 145 mmol/L AO ADM SS TSH Qn 0.39 m[IU]/L Invalid Interpretation Code 0.36 - 3.74 mcIU/mL AO ADM SS Urea nitrogen [Mass/Vol] 17 mg/dL Invalid Interpretation Code 7 - 18 mg/dL AO ADM SS Urea nitrogen/Creatinine [Mass ratio] 18 ratio Invalid Interpretation Code 7 - 27 ratio AO ADM SS LABORATORYOrdered By: SYSTEM SYSTEM on 04-05-2022 GFR 72 ml/min/1.73sqm Invalid Interpretation Code AO Chemistry S GFR Non- 59 ml/min/1.73sqm Inval id Interpretation Code AO Chemistry S LABORATORYOrdered By: Florencia Brandon on 12-07-2021 TSH Qn 0.59 m[IU]/L Invalid Interpretation Code 0.36 - 3.74 mcIU/mL AO ADM SS LABORATORYOrdered By: Vivek Wan on 10-20-2021 Calcium [Mass/Vol] 9.1 mg/dL Invalid Interpretation Code 8.4 - 10.2 mg/dL AO ADM SS Chloride [Moles/Vol] 95 mmol/L Invalid Interpretation Code 98 - 107 mmol/L AO ADM SS CO2 [Moles/Vol] 28 mmol/L Invalid Interpretation Code 23 - 31 mmol/L AO ADM SS Creatinine [Mass/Vol] 0.95 mg/dL Invalid Interpretation Code 0.55 - 1.02 mg/dL AO ADM SS Electrolyte Balance 10.0 mEq/L Invalid Interpretation Code 4.0 - 15.0 mEq/L AO ADM SS Glucose [Mass/Vol] 86 mg/dL Invalid Interpretation Code 83 - 110 mg/dL AO ADM SS Potassium [Moles/Vol] 5.0 mmol/L Invalid Interpretation Code 3.5 - 5.1 mmol/L AO ADM SS Sodium [Moles/Vol] 133 mmol/L Invalid Interpretation Code 136 - 145 mmol/L AO ADM SS Urea nitrogen [Mass/Vol] 14 mg/dL Invalid Interpretation Code 7 - 18 mg/dL AO ADM SS Urea nitrogen/Creatinine [Mass ratio] 15 ratio Invalid Interpretation Code 7 - 27 ratio AO ADM SS LABORATORYOrdered By: SYSTEM SYSTEM on 10-20-2021 GFR 69 ml/min/1.73sqm Invalid Interpretation Code AO Chemistry S GFR Non- 57 ml/min/1.73sqm Inval id Interpretation Code AO Chemistry S LABORATORYOrdered By: Vivek Wan on 10-13-2021 Calcium [Mass/Vol] 9.2 mg/dL Invalid Interpretation Code 8.4 - 10.2 mg/dL AO ADM SS Chloride [Moles/Vol] 90 mmol/L Invalid Interpretation Code 98 - 107 mmol/L AO ADM SS CO2 [Moles/Vol] 25 mmol/L Invalid Interpretation Code 23 - 31 mmol/L AO ADM SS Creatinine [Mass/Vol] 0.98 mg/dL Invalid Interpretation Code 0.55 - 1.02 mg/dL AO ADM SS Electrolyte Balance 11.0 mEq/L Invalid Interpretation Code 4.0 - 15.0 mEq/L AO ADM SS Glucose [Mass/Vol] 78 mg/dL Invalid Interpretation Code 83 - 110 mg/dL AO ADM SS Potassium [Moles/Vol] 4.8 mmol/L Invalid Interpretation Code 3.5 - 5.1 mmol/L AO ADM SS Sodium [Moles/Vol] 126 mmol/L Invalid Interpretation Code 136 - 145 mmol/L AO ADM SS Urea nitrogen [Mass/Vol] 19 mg/dL Invalid Interpretation Code 7 - 18 mg/dL AO ADM SS Urea nitrogen/Creatinine [Mass ratio] 19 ratio Invalid Interpretation Code 7 - 27 ratio AO ADM SS LABORATORYOrdered By: SYSTEM SYSTEM on 10-13-2021 GFR 67 ml/min/1.73sqm Invalid Interpretation Code AO Chemistry S GFR Non- 55 ml/min/1.73sqm Inval id Interpretation Code AO Chemistry S LABORATORYOrdered By: Carolynn Weathers on 10-06-2021 Albumin BCP dye [Mass/Vol] 4.1 G/dL Invalid Interpretation Code 3.4 - 4.8 G/dL AO ADM SS Albumin/Globulin [Mass ratio] 1.5 {ratio} Invalid Interpretation Code 1.1 - 2.5 ratio AO ADM SS ALP [Catalytic activity/Vol] 64 U/L Invalid Interpretation Code 40 - 135 U/L AO ADM SS ALT With P-5'-P [Catalytic activity/Vol] 30 U/L Invalid Interpretation Code 14 - 59 U/L AO ADM SS AST With P-5'-P [Catalytic activity/Vol] 27 U/L Invalid Interpretation Code 10 - 40 U/L AO ADM SS Bilirubin [Mass/Vol] 0.4 mg/dL Invalid Interpretation Code 0.2 - 1.0 mg/dL AO ADM SS Calcium [Mass/Vol] 9.2 mg/dL Invalid Interpretation Code 8.4 - 10.2 mg/dL AO ADM SS Chloride [Moles/Vol] 91 mmol/L Invalid Interpretation Code 98 - 107 mmol/L AO ADM SS Cholesterol [Mass/Vol] 201 mg/dL Invalid Interpretation Code 0 - 200 mg/dL AO ADM SS Cholesterol in HDL [Mass/Vol] 66 mg/dL Invalid Interpretation Code 40 - 60 mg/dL AO ADM SS Cholesterol in LDL [Mass/Vol] 124 mg/dL Invalid Interpretation Code 0 - 130 mg/dL AO ADM SS CO2 [Moles/Vol] 26 mmol/L Invalid Interpretation Code 23 - 31 mmol/L AO ADM SS Creatinine [Mass/Vol] 1.00 mg/dL Invalid Interpretation Code 0.55 - 1.02 mg/dL AO ADM SS Electrolyte Balance 12.0 mEq/L Invalid Interpretation Code AO ADM SS Globulin 2.8 G/dL Invalid Interpretation Code AO ADM SS Glucose [Mass/Vol] 87 mg/dL Invalid Interpretation Code 83 - 110 mg/dL AO ADM SS Potassium [Moles/Vol] 4.3 mmol/L Invalid Interpretation Code 3.5 - 5.1 mmol/L AO ADM SS Protein [Mass/Vol] 6.9 G/dL Invalid Interpretation Code 6.4 - 8.2 G/dL AO ADM SS Sodium [Moles/Vol] 129 mmol/L Invalid Interpretation Code 136 - 145 mmol/L AO ADM SS Triglyceride [Mass/Vol] 54 mg/dL Invalid Interpretation Code 0 - 150 mg/dL AO ADM SS TSH Qn 5.35 m[IU]/L Invalid Interpretation Code 0.36 - 3.74 mcIU/mL AO ADM SS Urea nitrogen [Mass/Vol] 14 mg/dL Invalid Interpretation Code 7 - 18 mg/dL AO ADM SS Urea nitrogen/Creatinine [Mass ratio] 14 ratio Invalid Interpretation Code 7 - 27 ratio AO ADM SS LABORATORYOrdered By: SYSTEM SYSTEM on 10-06-2021 GFR 65 ml/min/1.73sqm Invalid Interpretation Code AO Chemistry S GFR Non- 54 ml/min/1.73sqm Inval id Interpretation Code AO Chemistry S LABORATORYOrdered By: Vivek Wan on 07-06-2021 Calcium [Mass/Vol] 9.2 mg/dL Invalid Interpretation Code 8.4 - 10.2 mg/dL AO ADM SS Chloride [Moles/Vol] 94 mmol/L Invalid Interpretation Code 98 - 107 mmol/L AO ADM SS CO2 [Moles/Vol] 32 mmol/L Invalid Interpretation Code 23 - 31 mmol/L AO ADM SS Creatinine [Mass/Vol] 0.99 mg/dL Invalid Interpretation Code 0.55 - 1.02 mg/dL AO ADM SS Electrolyte Balance 5.0 mEq/L Invalid Interpretation Code AO ADM SS Glucose [Mass/Vol] 87 mg/dL Invalid Interpretation Code 83 - 110 mg/dL AO ADM SS Potassium [Moles/Vol] 4.3 mmol/L Invalid Interpretation Code 3.5 - 5.1 mmol/L AO ADM SS Sodium [Moles/Vol] 131 mmol/L Invalid Interpretation Code 136 - 145 mmol/L AO ADM SS Urea nitrogen [Mass/Vol] 13 mg/dL Invalid Interpretation Code 7 - 18 mg/dL AO ADM SS Urea nitrogen/Creatinine [Mass ratio] 13 ratio Invalid Interpretation Code 7 - 27 ratio AO ADM SS LABORATORYOrdered By: SYSTEM SYSTEM on 07-06-2021 GFR 66 ml/min/1.73sqm Invalid Interpretation Code AO Chemistry S GFR Non- 54 ml/min/1.73sqm Inval id Interpretation Code AO Chemistry S Vital Signs Date Time Vital Sign Value Performing Clinician Facility 03-02-2025 09:01-0400 Body weight 72.58 kg Artur Georges MD Work Phone: [facility] 03-02-2025 09:01-0400 Diastolic blood pressure 54 mm[Hg] Artur Georges MD Work Phone: [facility] 03-02-2025 09:01-0400 Heart rate 73 /min Artur Georges MD Work Phone: [facility] 03-02-2025 09:01-0400 Systolic blood pressure 121 mm[Hg] Artur Georges MD Work Phone: 01-22-2025 10:13-0400 Diastolic blood pressure 54 mm[Hg] Rosita Resendiz [employer]Y NUTRITIONIST - [employer]MENT [employer]INEER Work Phone: 01-22-2025 10:13-0400 Heart rate 66 /min Rosita [facility] DAIRY NUTRITIONIST - BUILD AND [employer]OYMENT ENGINEER Work Phone: 01-22-2025 10:13-0400 Systolic blood pressure 110 mm[Hg] [facility] N[facility]ITION[facility] - BUILD AND [employer]OYMENT ENGINEER Work Phone: 12-11-2024 11:43-0400 Body temperature 97.7 [degF] Dr. Argelia Darby DO Work Phone: [facility] 12-11-2024 11:43-0400 Diastolic blood pressure 64 mm[Hg] Dr. Argelia Darby DO Work Phone: [facility] 12-11-2024 11:43-0400 Heart rate 62 /min Dr. Argelia Darby DO Work Phone: [facility] 12-11-2024 11:43-0400 Respiratory rate 18 /min Dr. Argelia Darby DO Work Phone: [facility] 12-11-2024 11:43-0400 SaO2% (BldA) [Mass fraction] 98 % Dr. Argelia Darby DO Work Phone: [facility] 12-11-2024 11:43-0400 Systolic blood pressure 116 mm[Hg] Dr. Argelia Darby DO Work Phone: [facility] 12-11-2024 08:50-0400 Inhaled oxygen flow rate 2 L/min Dr. Argelia Darby DO Work Phone: [facility] 12-07-2024 11:38-0400 Body height 167.[address] Argelia Darby DO Work Phone: [facility] 12-07-2024 11:38-0400 Body weight 79.[address] Argelia Darby DO Work Phone: [facility] 12-06-2024 20:05-0400 Body mass index (BMI) [Ratio] 28.4 kg/m2 Dr. Argelia Darby DO Work Phone: [facility] 12-06-2024 19:02-0400 Body temperature 98.1 [degF] Dr. Argelia Darby DO Work Phone: [facility] 12-06-2024 19:02-0400 Diastolic blood pressure 91 mm[Hg] Dr. Argelia Darby DO Work Phone: [facility] 12-06-2024 19:02-0400 Heart rate 86 /min Dr. Argelia Darby DO Work Phone: [facility] 12-06-2024 19:02-0400 Respiratory rate 18 /min Dr. Argelia Darby DO Work Phone: [facility] 12-06-2024 19:02-0400 SaO2% (BldA) [Mass fraction] 100 % Dr. Argelia Darby DO Work Phone: [facility] 12-06-2024 19:02-0400 Systolic blood pressure 142 mm[Hg] Dr. Argelia Darby DO Work Phone: [facility] 12-06-2024 16:31-0400 Body height 167.[address] Argelia Darby DO Work Phone: [facility] 12-06-2024 16:31-0400 Body mass index (BMI) [Ratio] 30.9 kg/m2 Dr. Argelia Darby DO Work Phone: [facility] 12-06-2024 16:31-0400 Body weight [address] Argelia Darby DO Work Phone: [facility] 12-04-2024 14:48-0400 Body mass index (BMI) [Ratio] 18.7 kg/m2 Dr. Argelia Darby DO Work Phone: [facility] 12-04-2024 14:48-0400 Body weight 52.[address] Argelia Darby DO Work Phone: [facility] 12-04-2024 14:48-0400 Diastolic blood pressure 69 mm[Hg] Dr. Argelia Darby DO Work Phone: [facility] 12-04-2024 14:48-0400 Heart rate 61 /min Dr. Argelia Darby DO Work Phone: [facility] 12-04-2024 14:48-0400 Respiratory rate 18 /min Dr. Argelia Darby DO Work Phone: [facility] 12-04-2024 14:48-0400 Systolic blood pressure 155 mm[Hg] Dr. Argelia Darby DO Work Phone: [facility] 08-28-2024 08:54-0500 Body mass index (BMI) [Ratio] 29.5 kg/m2 Dr. Argelia Darby DO Work Phone: [facility] 08-28-2024 08:54-0500 Body weight [address] Argelia Darby DO Work Phone: [facility] 08-28-2024 08:54-0500 Diastolic blood pressure 73 mm[Hg] Dr. Argelia Darby DO Work Phone: [facility] 08-28-2024 08:54-0500 Heart rate 58 /min Dr. Argelia Darby DO Work Phone: [facility] 08-28-2024 08:54-0500 Respiratory rate 18 /min Dr. Argelia Darby DO Work Phone: [facility] 08-28-2024 08:54-0500 Systolic blood pressure 142 mm[Hg] Dr. Argelia Darby DO Work Phone: [facility] 09-04-2023 11:22-0500 Body height 167.[address] Madhavi Pate Work Phone: [facility] 09-04-2023 11:22-0500 Body mass index (BMI) [Ratio] 28.7 kg/m2 Dr. Madhavi Pate Work Phone: [facility] 09-04-2023 11:22-0500 Body weight 80.[address] Madhavi Pate Work Phone: [facility] 09-04-2023 11:22-0500 Diastolic blood pressure 70 mm[Hg] Dr. Madhavi Pate Work Phone: [facility] 09-04-2023 11:22-0500 Heart rate 61 /min Dr. Madhavi Pate Work Phone: [facility] 09-04-2023 11:22-0500 Respiratory rate 16 /min Dr. Madhavi Pate Work Phone: [facility] 09-04-2023 11:22-0500 Systolic blood pressure 150 mm[Hg] Dr. Madhavi Pate Work Phone: [facility] 09-02-2023 11:12-0500 Blood Pressure Location YAZMIN PACET [facility] 09-02-2023 11:12-0500 Body temperature 97.88 [degF] YAZMIN PACET DO [facility] 09-02-2023 11:12-0500 Diastolic Blood Pressure Non-Invasive 79 mm[Hg] YAZMIN PACET DO [facility] 09-02-2023 11:12-0500 Heart rate 60 /min YAZMIN PACET DO [facility] 09-02-2023 11:12-0500 Respiratory rate 16 /min YAZMIN PACET DO [facility] 09-02-2023 11:12-0500 Systolic Blood Pressure Non-Invasive 151 mm[Hg] YAZMIN PACET DO [facility] 08-14-2023 11:04-0500 Body temperature 97.2 [degF] Dr. Madhavi Pate Work Phone: [facility] 08-14-2023 11:04-0500 Diastolic blood pressure 58 mm[Hg] Dr. Madhavi Pate Work Phone: [facility] 08-14-2023 11:04-0500 Heart rate 61 /min Dr. Madhavi Pate Work Phone: [facility] 08-14-2023 11:04-0500 Respiratory rate 16 /min Dr. Madhavi Pate Work Phone: [facility] 08-14-2023 11:04-0500 SaO2% (BldA) [Mass fraction] 95 % Dr. Madhavi Pate Work Phone: [facility] 08-14-2023 11:04-0500 Systolic blood pressure 147 mm[Hg] Dr. Madhavi Pate Work Phone: [facility] 08-13-2023 06:00-0500 Body mass index (BMI) [Ratio] 29.1 kg/m2 Dr. Madhavi Pate Work Phone: [facility] 08-13-2023 06:00-0500 Body weight 81.[address] Madhavi Pate Work Phone: [facility] 08-08-2023 15:24-0500 Body height 167.[address] Madhavi Pate Work Phone: [facility] 08-07-2023 08:14-0500 Inhaled oxygen flow rate 1.5 L/min Dr. Madahvi Pate Work Phone: [facility] 07-31-2023 13:56-0500 Body temperature 98.5 [degF] Dr. Madhavi Pate Work Phone: [facility] 07-31-2023 13:56-0500 Diastolic blood pressure 65 mm[Hg] Dr. Madhavi Pate Work Phone: [facility] 11-07-2023 13:56-0500 Heart rate 66 /min Dr. Madhavi Pate Work Phone: [facility] 07-31-2023 13:56-0500 Respiratory rate 18 /min Dr. Madhavi Pate Work Phone: [facility] 07-31-2023 13:56-0500 SaO2% (BldA) [Mass fraction] 100 % Dr. Madhavi Pate Work Phone: [facility] 07-31-2023 13:56-0500 Systolic blood pressure 160 mm[Hg] Dr. Madhavi Pate Work Phone: [facility] 07-31-2023 10:32-0500 Inhaled oxygen flow rate 2 L/min Dr. Madhavi Pate Work Phone: [facility] 07-31-2023 05:44-0500 Body mass index (BMI) [Ratio] 30.7 kg/m2 Dr. Madhavi Pate Work Phone: [facility] 07-31-2023 05:44-0500 Body weight 83.[address] Madhavi Pate Work Phone: [facility] 07-29-2023 09:43-0500 Body height 165.[address] Madhavi Pate Work Phone: [facility] 07-27-2023 22:38-0400 Diastolic Blood Pressure Non-Invasive 71 1 RASHEL CASTILLORENETTA DO [facility] 07-27-2023 22:38-0400 Heart rate 68 /min RASHEL SPANGLER DO [facility] 07-27-2023 22:38-0400 Respiratory rate 18 /min RASHEL SPANGLER DO [facility] 07-27-2023 22:38-0400 Systolic Blood Pressure Non-Invasive 133 1 RASHEL SPANGLER DO [facility] 07-27-2023 22:12-0400 Diastolic Blood Pressure Non-Invasive 92 1 RASHEL SPANGLER DO [facility] 07-27-2023 22:12-0400 Heart rate 91 /min RASHEL DURESKA DO [facility] 07-27-2023 22:12-0400 Respiratory rate 18 /min RASHEL DURESKA DO [facility] 07-27-2023 22:12-0400 Systolic Blood Pressure Non-Invasive 155 1 RASHEL DURESKA DO [facility] 07-27-2023 21:33-0400 Diastolic Blood Pressure Non-Invasive 68 1 RASHEL DURESKA DO [facility] 07-27-2023 21:33-0400 Heart rate 71 /min RASHEL DURESKA DO [facility] 07-27-2023 21:33-0400 Respiratory rate 18 /min RASHEL DURESKA DO [facility] 07-27-2023 21:33-0400 Systolic Blood Pressure Non-Invasive 163 1 RASHEL DURESKA DO [facility] 07-27-2023 19:48-0400 Body temperature 97.88 [degF] RASHEL DURESKA DO [facility] 07-27-2023 19:48-0400 Heart rate 66 /min RASHEL DURESKA DO [facility] Encounters Encounter Date Encounter Type Care Provider Facility Start: 03-02-2025 End: 03-02-2025 Office outpatient visit 25 minutes Artur Georges MD Work Phone: [facility] [place] Comment on above: Urinary retention (P rimary Dx) Start: 03-02-2025 End: 03-02-2025 ambulatory ARTUR GEORGES [facility] Start: 02-18-2025 ambulatory Gene Barretoi ty:[facility] Start: 02-09-2025 ambulatory Gene Yulissa Barretoi ty:[facility] Start: 02-06-2025 ambulatory Argelia Darby Facility :[facility] Start: 01-26-2025 ambulatory Gene Barretoi ty:[facility] Start: 01-23-2025 End: 01-26-2025 Telephone encounter Rosita Resendiz DAIRY NUTRITIONIST - BUILD AND DEPLOYMENT ENGINEER Work Phone: [facility] Comment on above: Appointment Request Start: 01-22-2025 End: 01-22-2025 Office outpatient new 45 minutes Rosita Resendiz DAIRY NUTRITIONIST - BUILD AND DEPLOYMENT ENGINEER Work Phone: [facility] Comment on above: Urinary retention (P rimary Dx) Start: 01-22-2025 End: 01-22-2025 ambulatory [facility] Start: 01-19-2025 End: 01-19-2025 Telephone encounter Artur Georges MD Work Phone: [facility] Clinical Communication Comment on above: Appointment Request Start: 01-19-2025 ambulatory Gene Yulissa Barretoi ty:[facility] Start: 12-19-2024 End: 12-19-2024 ambulatory Argelia Darby Facility:[facility] Start: 12-19-2024 Encounter for preprocedural cardiovascular examination Michelle Dang [facility] Start: 12-11-2024 End: 01-13-2025 Evaluation and management of inpatient Argelia Darby Facility:[facility] Start: 12-11-2024 Non-patient / Non-visit Dr. Radha ESTEVEZ -[facility] Work Phone: Start: 12-10-2024 Non-patient / Non-visit Dr. Madhavi Pate MD -[facility] Work Phone: Start: 12-09-2024 Non-patient / Non-visit Dr. Montse Cabrera MD -[facility] Work Phone: Start: 12-08-2024 Non-patient / Non-visit Dr. Neela Dang MD -[facility] Start: 12-08-2024 Non-patient / Non-visit Dr. Montse Cabrera MD -[facility] Work Phone: Start: 12-07-[address] Wing Darby DO Work Phone: [facility] Start: 12-07-2024 Non-patient / Non-visit Dr. Montse Cabrera MD -[facility] Work Phone: Start: 12-06-2024 Non-patient / Non-visit Dr. Sandro Jackman MD -[facility] Work Phone: Start: 12-06-2024 End: 12-11-[address] Donovan Cano DO [facility] Start: 12-06-2024 End: 12-11-2024 Evaluation and management of inpatient Dr. Sandro Jackman MD -[facility] Work Phone: Start: 12-06-2024 ambulatory Argelia Darby Facility :[facility] Start: 12-04-2024 End: 12-04-[address] Kristy Andrew MD -[facility] Work Phone: Start: 12-04-2024 End: 12-04-2024 ambulatory Argelia Darby Facility:[facility] Start: 11-07-2024 ambulatory ARGELIA DARBY DO Facil ity:[facility] Start: 10-29-2024 End: 10-29-2024 ambulatory ARGELIA DARBY DO Facility:[facility] Start: 10-29-2024 End: 10-29-2024 Patient encounter procedure ARGELIA DARBY DO [facility] Start: 09-06-2024 ambulatory Argelia Darby Facility :[facility] Start: 09-06-2024 Non-patient / Non-visit Dr. Kristy jett MD -[facility] Work Phone: Start: 09-06-2024 ambulatory Argelia Wilner Facility :[facility] Start: 09-06-[address] Kristy Andrew MD -Cardiovascular Services Work Phone: Start: 08-28-2024 End: 08-28-[address] Kristy Andrew MD -[facility] Work Phone: Start: 08-28-2024 End: 08-28-2024 ambulatory Argelia Wilner Facility:[facility] Start: 08-25-2024 End: 08-25-2024 ambulatory ARGELIA WILNER DO Facility:[facility] Start: 08-25-2024 End: 08-25-2024 Patient encounter procedure ARGELIA WILNER DO [facility] Start: 07-31-2024 End: 07-31-2024 ambulatory ARGELIA WILNER DO Facility[facility] Start: 07-31-2024 End: 07-31-2024 Patient encounter procedure ARGELIA WILNER DO [facility] Start: 06-26-2024 ambulatory Argelia Wilner Facility :[facility] Start: 06-25-2024 ambulatory Argelia Wilner Facility :[facility] Start: 06-23-2024 ambulatory Argelia Wilner Facility :[facility] Start: 06-23-2024 ambulatory Argelia Wilner Facility :[facility] Start: 06-23-2024 End: 06-23-2024 ambulatory Argelia Wilner Facility:[facility] Start: 06-10-2024 End: 06-10-2024 ambulatory Argelia Wilner Facility:[facility] Start: 06-10-2024 End: 06-10-2024 ambulatory Argelia Wilner Facility:[facility] Start: 05-23-2024 End: 05-23-2024 ambulatory ARGELIA WILNER DO Facility:[facility] Start: 05-23-2024 End: 05-23-2024 Patient encounter procedure JESUS WOODARD DAIRY NUTRITIONIST-BUILD AND DEPLOYMENT ENGINEER [facility] Start: 05-15-2024 End: 05-15-2024 ambulatory ARGELIA EASONY DO Facility:B Start: 05-15-2024 End: 05-15-2024 Patient encounter procedure ARGELIA WILSONLAY DO [facility] Start: 04-15-2024 End: 04-15-2024 ambulatory ARGELIA EASONY DO Facility:B Start: 04-15-2024 End: 04-15-2024 Patient encounter procedure ARGELIA EASONY DO [facility] Start: 03-20-2024 End: 03-20-2024 ambulatory Argelia Darby Facility:[facility] Start: 03-11-2024 End: 03-11-2024 ambulatory Argelia Darby Facility:[facility] Start: 03-03-2024 End: 03-03-2024 ambulatory ARGELIA EASONY DO Facility:B Start: 03-03-2024 End: 03-03-2024 Patient encounter procedure ARGELIA WILSONLAY DO [facility] Start: 01-30-2024 End: 01-30-2024 ambulatory ARGELIA EASONY DO Facility:B Start: 12-11-2023 End: 12-11-2023 ambulatory ARGELIA EASONY DO Facility:B Start: 12-11-2023 End: 12-11-2023 Patient encounter procedure ARGELIA EASONY DO [facility] Start: 12-04-2023 End: 12-08-2023 ambulatory ARGELIAHAILE EASONY DO Facility:B Start: 12-04-2023 End: 12-08-2023 Outreach Lab ARGELIA WILSONLAY DO [facility] Start: 12-04-2023 End: 12-08-2023 ambulatory ARGELIAHAILE WILSONLAY DO Facility:B Start: 12-04-2023 End: 12-08-2023 Outreach Lab ARGELIA DARBY DO [facility] Start: 10-10-2023 End: 10-10-2023 ambulatory ARGELIA DARBY DO Facility:B Start: 10-10-2023 End: 10-10-[address] CATIE SNOWDEN MD [facility] Start: 09-26-2023 Non-patient / Non-visit Dr. Deidra Pate Work Phone: [facility] Work Phone: Start: 09-26-2023 Non-patient / Non-visit Dr. Deidra Pate Work Phone: [facility] Start: 09-26-2023 End: 09-26-[address] Madhavi Pate Work Phone: [facility] Work Phone: Start: 09-26-2023 End: 09-26-[address] Madhav[facility] Pate [facility] Work Phone: Start: 09-19-2023 End: 10-09-2023 ambulatory ARGELIA DARBY DO Facility:B Start: 09-19-2023 End: 10-09-2023 Physical therapy management ARGELIA DARBY DO [facility] Start: 09-13-2023 End: 09-13-2023 ambulatory AGRELIA WILSONLAY Facility:B Start: 09-11-2023 End: 09-11-2023 ambulatory ARGELIA WILSONLAElly ESTEVEZ Facility:B Start: 09-04-2023 End: 09-04-[address] Madhavi Pate Work Phone: [facility] Work Phone: Start: 09-02-2023 End: 09-02-2023 Emergency department patient visit YAZMIN ANDERS DO [facility] Start: 08-30-2023 End: 08-30-2023 ambulatory ARGELIA DARBY DO Facility:B Start: 08-30-2023 End: 08-30-2023 Patient encounter procedure ARGELIA DARBY DO [facility] Start: 08-21-2023 End: 08-21-2023 ambulatory ARGELIA DARBY DO Facility:B Start: 07-31-2023 End: 08-14-2023 Evaluation and management of inpatient Dr. Madhavi Pate Work Phone: [facility]-Transitional Care Unit Start: 07-31-2023 Non-patient / Non-visit Dr. Deidra Pate Work Phone: [facility] Work Phone: Start: 07-30-2023 Non-patient / Non-visit Dr. Deidra Pate Work Phone: [facility] Work Phone: Start: 07-29-2023 Non-patient / Non-visit Dr. Deidra Pate Work Phone: [facility] Work Phone: Start: 07-28-2023 End: 07-31-2023 Evaluation and management of inpatient Dr. Madhavi Pate Work Phone: [facility]-Medical Surgical 3 Work Phone: Start: 07-28-2023 Non-patient / Non-visit Dr. Deidra Pate Work Phone: [facility] Work Phone: Start: 07-27-2023 End: 07-27-2023 Emergency department patient visit RASHEL SPANGLER DO [facility] Start: 07-26-2023 End: 07-26-2023 Emergency department patient visit ARGELIA DARBY DO Facility:B Start: 07-24-2023 End: 07-28-2023 ambulatory ARGELIA DARBY DO Facility:B Start: 07-24-2023 End: 07-28-2023 Outreach Lab ARGELIA DARBY DO [facility] Start: 07-16-2023 End: 07-16-2023 ambulatory ARGELIA DARBY DO Facility:[facility] Start: 07-16-2023 End: 07-16-2023 Patient encounter procedure ARGELIA Pastrana WILNER DO [facility] Start: 07-03-2023 End: 07-03-2023 ambulatory ARGELIA WILSONLAElly ESTEVEZ Facility:B Start: 03-21-2023 End: 03-21-2023 Patient encounter procedure ARGELIA DARBY DO [facility] Start: 12-26-2022 End: 12-30-2022 Outreach Lab ARGELIA DARBY DO [facility] Start: 12-26-2022 End: 12-26-2022 Patient encounter procedure ARGELIA Pastrana WILNER DO [facility] Start: 08-23-2022 End: 08-23-2022 Patient encounter procedure ARGELIA DARBY DO [facility] Start: 04-19-2022 End: 04-19-2022 Patient encounter procedure ARGELIA Pastrana WILNER DO [facility] Start: 04-05-2022 End: 04-05-2022 Patient encounter procedure ARGELIA Pastrana WILNER [facility] Start: 12-09-2021 End: 01-25-2022 Physical therapy management ARGELIA Pastrana WILNER [facility] Start: 12-07-2021 End: 12-07-2021 Patient encounter procedure ARGELIA Pastrana WILNER DO [facility] Start: 10-20-2021 End: 10-20-2021 Patient encounter procedure ARGELIA Pastrana WILNER [facility] Start: 10-13-2021 End: 10-13-2021 Patient encounter procedure ARGELIA Pastrana WILNER [facility] Start: 10-06-2021 End: 10-06-2021 Patient encounter procedure ARGELIA DARBY DO [facility] Start: 08-01-2021 End: 08-01-2021 Patient encounter procedure SHAYNE GONZALEZ DAIRY NUTRITIONIST-BUILD AND DEPLOYMENT ENGINEER [facility] Start: 07-06-2021 End: 07-06-2021 Patient encounter procedure SHAYNE GONZALEZ DAIRY NUTRITIONIST-BUILD AND DEPLOYMENT ENGINEER [facility] Procedures Date Procedure Procedure Detail Performing Clinician Start: 12-06-2024 Plain chest X-ray Dr. Wing Darby DO Work Phone: Start: 12-06-2024 X-ray of knee, one o r two views Dr. Argelia Darby DO Work Phone: Start: 12-06-2024 CT cervical spine wi thout contrast Dr. Argelia Darby DO Work Phone: Start: 12-06-[address] Debbie Darby DO Work Phone: Start: 12-06-2024 CT of head without contrast Dr. Argelia Darby DO Work Phone: Start: 07-28-2023 Coronavirus COVID-[address] Madhavi Pate Work Phone: Start: 09-24-2020 Extraction of cataract ARGELIA DARBY DO Comment on above: both eye Start: 09-09-2020 Cardiac catheterization SHAYNERAMU GONZALEZ DAIRY NUTRITIONIST-BUILD AND DEPLOYMENT ENGINEER Start: 08-22-2010 Thyroidectomy SHAYNE Villagomez FIDELIA DAIRY NUTRITIONIST-BUILD AND DEPLOYMENT ENGINEER Comment on above: Bilateral follicular thyroid nodule, cystic colloid nodule Start: 09-24-1994 Dilation and curetta ge of uterus SHAYNERAMU GONZALEZ DAIRY NUTRITIONIST-BUILD AND DEPLOYMENT ENGINEER Comment on above: cone biopsy Start: 09-24-1982 Ligation of fallopian tube SHAYNE GONZALEZ DAIRY NUTRITIONIST-BUILD AND DEPLOYMENT ENGINEER Start: 09-24-1958 Tonsillectomy SHAYNE Villagomez FIDELIA DAIRY NUTRITIONIST-BUILD AND DEPLOYMENT ENGINEER Colonoscopy SHAYNE GONZALEZ AP RN-BUILD AND DEPLOYMENT ENGINEER Endometrial biopsy SHAYNE Villagomez FIDELIA DAIRY NUTRITIONIST-BUILD AND DEPLOYMENT ENGINEER Comment on above: 1992 & 1988 Tympanotomy SHAYNE SHEPARD RN-BUILD AND DEPLOYMENT ENGINEER Comment on above: right ear Plan of Treatment Date Care Activity Detail Author Start: 12-06-2034 DTaP/Tdap/Td Vaccines (3 - Td or Tdap) DTaP/Tdap/Td Vaccines (3 - Td or Tdap) Start: 05-25-2025 Influenza vaccination Influenza Vaccine (Season Ended) Start: 03-02-2025 End: 03-02-2025 Patient encounter procedure 03/02/2025 9:20 AM EDT Procedure Visit Urology - [address] [place] [id number] Artur Georges MD [address] [place] [id number] [facility] Start: 01-22-2025 End: 01-22-2025 Patient encounter procedure 01/22/2025 10:00 AM EDT Office Visit [facility] [address] [place] [id number] Rosita Resendiz, DORIS - BUILD AND DEPLOYMENT ENGINEER [address] [place] [address] [facility] Start: 12-11-2024 Patient discharge [facility] Start: 12-10-2024 Fluid restriction [facility] Start: 12-09-2024 Referral to cloth winding supervisor [facility] Start: 12-07-2024 [facility] Start: 12-06-2024 Referral to cath lab tech [facility] Start: 12-06-2024 [facility] Start: 12-06-2024 Care planning and problem solving actions [facility] Start: 12-06-2024 Following clinical pathway protocol [facility] Start: 12-06-2024 Assessment of risk of venous thromboembolism [facility] Start: 12-06-2024 Consultation [facility] Start: 12-06-2024 Insertion of catheter into peripheral vein [facility] Start: 12-06-2024 Patient referral to dietitian [facility] Start: 12-06-2024 Providing care according to standard [facility] Start: 12-06-2024 Provision of activity privileges [facility] Start: 12-06-2024 Referral to occupational therapist [facility] Start: 12-06-2024 Referral to service [facility] Start: 12-06-2024 [facility] Start: 12-06-2024 Verification routine [facility] Start: 12-06-2024 Admission procedure [facility] Start: 12-06-2024 End: 12-06-2024 [facility] Start: 12-06-2024 Hospital admission, emergency, from emergency room, medical nature [facility] Start: 12-06-2024 End: 12-07-2024 [facility] Start: 05-25-2024 COVID-19 Vaccine ( season) COVID-19 Vaccine () Start: 05-25-2024 COVID-19 Vaccine () COVID-19 Vaccine () Start: 09-12-2023 Blood chemistry [facility] Start: 09-05-2023 Blood chemistry [facility] Start: 08-29-2023 Blood chemistry [facility] Start: 08-22-2023 Blood chemistry [facility] Start: 08-15-2023 Blood chemistry [facility] Start: 08-14-2023 Patient discharge [facility] Start: 08-13-2023 Development of care plan [facility] Start: 08-08-2023 Oxygen therapy [facility] Start: 08-06-2023 Blood chemistry [facility] Start: 08-05-2023 Blood chemistry [facility] Start: 08-04-2023 Blood chemistry [facility] Start: 08-03-2023 Blood chemistry [facility] Start: 08-02-2023 Blood chemistry [facility] Start: 08-01-2023 Development of care plan [facility] Start: 08-01-2023 Developing a treatment plan [facility] Start: 08-01-2023 Blood chemistry [facility] Start: 07-31-2023 Following clinical pathway protocol [facility] Start: 07-31-2023 Admission procedure [facility] Start: 07-31-2023 Measuring intake and output [facility] Start: 07-31-2023 Patient referral to dietitian [facility] Start: 07-31-2023 Referral to occupational therapist [facility] Start: 07-31-2023 Referral to service [facility] Start: 07-31-2023 Vital signs measurements [facility] Start: 07-31-2023 [facility] Start: 07-31-2023 Patient discharge [facility] Start: 07-29-2023 Inhalation therapy procedure [facility] Start: 07-28-2023 [facility] Start: 07-28-2023 Admission procedure [facility] Start: 07-28-2023 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 to cloth winding supervisor [facility] Start: 07-28-2023 Following clinical pathway protocol [facility] Start: 07-28-2023 Admission procedure [facility] Start: 07-28-2023 Assessment of risk of venous thromboembolism [facility] Start: 07-28-2023 Insertion of catheter into peripheral vein [facility] Start: 07-28-2023 Providing care according to standard [facility] Start: 07-28-2023 Provision of activity privileges [facility] Start: 07-28-2023 Fall prevention [facility] Start: 07-28-2023 End: 07-28-2023 [facility] Start: 07-28-2023 Introduction of urinary catheter [facility] Start: 07-28-2023 Oxygen therapy [facility] Start: 07-28-2023 Referral to occupational therapist [facility] Start: 07-28-2023 Referral to service [facility] Start: 07-28-2023 Measuring intake and output [facility] Start: 2018 RSV Immunization for Adults (1 - 1-dose 75+ series) RSV Immunization for Adults (1 - 1-dose 75+ series) Start: 06-08-2009 Zoster Vaccines (2 of 3) Zoster Vaccines (2 of 3) Start: 1993 Pneumococcal Vaccine: 50+ Years (1 of 1 - PCV) Pneumococcal Vaccine: 50+ Years (1 of 1 - PCV) Start: 1993 Zoster Vaccines (1 of 2) Zoster Vaccines (1 of 2) Start: 1962 DTaP/Tdap/Td Vaccines (1 - Tdap) DTaP/Tdap/Td Vaccines (1 - Tdap) Start: 1955 Depression Monitoring Depression Monitoring Start: 1955 Depression Screening Depression Screening Start: 1943 Lipid panel Lipid Panel Start: 1943 Medicare Annual Wellness (AWV) Medicare Annual Wellness (AWV) Start: 1943 Screening for osteoporosis Bone Density Scan Start: 1943 Thyroid stimulating hormone measurement TSH Level CT angiography of co ronary arteries [facility] CTA Heart and [place] ry arteries W contrast IV [facility] Patient Education [facility] Work Phone: Patient referral [facility] Work Phone: Troponin T.cardiac [Mass/volume] in Serum or Plasma by High sensitivity method [facility] Troponin T.cardiac [Mass/volume] in Serum or Plasma by High sensitivity method [facility] Troponin T.cardiac [Mass/volume] in Serum or Plasma by High sensitivity method [facility] Immunizations Immunization Date Immunization Notes Care Provider Fa cili 12-06-2024 tetanus toxoid, redu christopher diphtheria toxoid, and acellular pertussis vaccine, adsorbed Dr. Argelia Darby DO Work Phone: [facility] 07-11-2022 pneumococcal polysaccharide vaccine, 23 valent; Translations: [Pneumovax 23] ARGELIA DARBY DO [facility] 05-17-2021 SARS-CoV-2 (COVID-19 ) mRNA-1273 vaccine ARGELIA DARBY DO [facility] 04-16-2021 SARS-CoV-2 (COVID-19 ) mRNA-1273 vaccine ARGELIA DARBY DO [facility] 06-05-2019 influenza virus vacc ine, unspecified formulation SHAYNE FISH DAIRY NUTRITIONIST-BUILD AND DEPLOYMENT ENGINEER [facility] 06-05-2019 Seasonal trivalent influenza vaccine, adjuvanted, preservative free Dr. Madhavi Pate Work Phone: [facility] [facility] 05-29-2018 influenza virus vacc ine, unspecified formulation SHAYNE FISH DAIRY NUTRITIONIST-BUILD AND DEPLOYMENT ENGINEER [facility] 05-29-2018 Seasonal trivalent influenza vaccine, adjuvanted, preservative free Dr. Madhavi Pate Work Phone: [facility] 06-07-2017 influenza virus vacc ine, unspecified formulation SHAYNE FISH DAIRY NUTRITIONIST-BUILD AND DEPLOYMENT ENGINEER [facility] 06-07-2017 Seasonal trivalent influenza vaccine, adjuvanted, preservative free Dr. Madhavi Pate Work Phone: [facility] 05-01-2017 pneumococcal conjuga te vaccine, 13 valent SHAYNE FISH DAIRY NUTRITIONIST-BUILD AND DEPLOYMENT ENGINEER [facility] 06-21-2016 influenza virus vacc ine, unspecified formulation SHAYNE FISH DAIRY NUTRITIONIST-BUILD AND DEPLOYMENT ENGINEER [facility] 06-21-2016 Influenza, high dose seasonal Dr. Argelia Darby DO Work Phone: [facility] 06-21-2016 influenza, high dose seasonal, preservative-free Dr. Madhavi Ptae Work Phone: [facility] 05-25-2016 influenza virus vacc ine, unspecified formulation SHAYNE FISH DAIRY NUTRITIONIST-BUILD AND DEPLOYMENT ENGINEER [facility] 05-25-2016 influenza, injectabl e, quadrivalent, preservative free Dr. Madhavi Pate Work Phone: [facility] 05-17-2015 influenza virus vacc ine, unspecified formulation SHAYNE FISH DAIRY NUTRITIONIST-BUILD AND DEPLOYMENT ENGINEER [facility] 05-17-2015 Influenza, high dose seasonal Dr. Argelia Darby DO Work Phone: [facility] 05-17-2015 influenza, high dose seasonal, preservative-free Dr. aMdhavi Pate Work Phone: [facility] 07-16-2014 influenza virus vacc ine, unspecified formulation SHAYNE FISH DAIRY NUTRITIONIST-BUILD AND DEPLOYMENT ENGINEER [facility] 07-16-2014 Seasonal, quadrivale nt, recombinant, injectable influenza vaccine, preservative free Dr. Madhavi Pate Work Phone: [facility] 01-12-2011 tetanus toxoid, redu christopher diphtheria toxoid, and acellular pertussis vaccine, adsorbed SHAYNE FISH DAIRY NUTRITIONIST-BUILD AND DEPLOYMENT ENGINEER [facility] 04-13-2009 zoster vaccine, live SHAYNE GONZALEZ DAIRY NUTRITIONIST-BUILD AND DEPLOYMENT ENGINEER [facility] Payers Date Payer Category Payer Self-pay [id number] 2021 Unknown [id number] 2016 [facility] Care - [facility] [id number] 2009 Unknown [id number] 2008 Medicare [id number] 2008 Medicare [id number] 1945 Unknown [id number] 2.16.840.1.034350.3.579. 2.627 1943 Unknown [id number] 2.16.840.1.263129.3.579. 2.62 1943 Unknown [id number] 2.16.840.1.598507.3.579. 2.627 1943 Unknown [id number] 2.16.840.1.344915.3.579. 2. 1943 Unknown [id number] 2.16.840.1.096806.3.579. 2. 1943 Unknown [id number] 2.16.840.1.175597.3.579. 2. 1943 Unknown [id number] 2.16.840.1.848529.3.579. 2.62 1943 Unknown [id number] 2.16.840.1.870465.3.579. 2. 1943 Unknown [id number] 2.16.840.1.857749.3.579. 2.62 1943 Unknown [id number] 2.16.840.1.840165.3.579. 2. 1943 Unknown [id number] 2.16.840.1.722085.3.579. 2.627 1943 Unknown [id number] 2.16.840.1.077368.3.579. 2.62 1943 Unknown [id number] 2.16.840.1.972429.3.579. 2.627 1943 Unknown [id number] 2.16.840.1.102936.3.579. 2.627 1943 Unknown [id number] 2.16.840.1.789127.3.579. 2.627 1943 Unknown [id number] 2.16.840.1.786684.3.579. 2. 1943 Unknown [id number] 2.16.840.1.822025.3.579. 2.62 1943 Unknown [id number] 2.16.840.1.690701.3.579. 2. 1943 Unknown [id number] 2.16.840.1.288394.3.579. 2. 1943 Unknown [id number] 2.16.840.1.859825.3.579. 2. 1943 Unknown [id number] 2.16840.1.739277.3.579. 2. 1943 Unknown [id number] 2.16840.1.169180.3.579. 2. 1943 Unknown [id number] 2.16840.1.021676.3.579. 2. 1943 Unknown [id number] 2.16840.1.283280.3.579. 2. 1943 Unknown [id number] 2.16840.1.528474.3.579. 2. 1943 Unknown [id number] 2.16.840.1.289330.3.579. 2.627 Unknown [id number] 2.16.840.1.283817.3.579. 2.462 Unknown [id number] 2.16.840.1.486392.3.579. 2.462 Unknown [id number] 2.16.840.1.175263.3.579. 2.462 Unknown [id number] 2.16.840.1.367567.3.579. 2.462 Unknown [id number] 2.16.840.1.789198.3.579. 2.462 Unknown [id number] 2.16.840.1.047270.3.579. 2.462 Unknown [id number] 2.16.840.1.996189.3.579. 2.462 Unknown [id number] 2.16.840.1.091131.3.579. 2.462 Unknown [id number] 2.16.840.1.699257.3.579. 2.462 Unknown [id number] 2.16.840.1.382138.3.579. 2.462 Unknown [id number] 2.16.840.1.903156.3.579. 2.462 Unknown [id number] 2.16.840.1.275020.3.579. 2.462 Unknown [id number] 2.840.1.355922.3.579. 2.462 Unknown [id number] 2.16.840.1.999311.3.579. 2.462 Unknown [id number] 2.16840.1.729509.3.579. 2.462 Unknown [id number] 2.16.840.1.713825.3.579. 2.462 Unknown [id number] 2.16.840.1.837883.3.579. 2.462 Unknown [id number] 2.16.840.1.093275.3.579. 2.462 Unknown [id number] 2.16.840.1.448803.3.579. 2.462 Unknown [id number] 2.16.840.1.689137.3.579. 2.462 Unknown [id number] 2.16.840.1.945862.3.579. 2.462 Unknown [id number] 2.16.840.1.291384.3.579. 2.462 Unknown [id number] 2.16.840.1.508348.3.579. 2.462 Unknown [id number] 2.16.840.1.479854.3.579. 2.462 Unknown [id number] 2.16.840.1.346677.3.579. 2.462 Unknown [id number] 2.16.840.1.141853.3.579. 2.462 Unknown [id number] 2.16.840.1.053221.3.579. 2.462 Unknown [id number] 2.16.840.1.963967.3.579. 2.462 Unknown [id number] 2.16.840.1.174341.3.579. 2.462 Unknown [id number] 2.16.840.1.384614.3.579. 2.462 Social History Date Type Detail Facility Start: 06-30-2021 End: 12-06-2024 Never smoked tobacco (finding) [facility] Start: 1945 Sex Assigned At Female A [facility] Start: 07-28-2023 End: 09-04-2023 Tobacco smoking status NHIS Unknown if ever smoked [facility] Sexual Orientation [facility] Start: 03-19-2019 End: 01-19-2025 Sex Female (finding) [facility] Start: 1945 Sex assigned at Not on file S [facility] Gender identity Not on file [facility] Goals Date Patient Goal Desired Activity /State Functional Status Date Assessment Result Facility 12-11-2024 Functional status Ambulates [facility] Work Phone: 09-02-2023 Functional Status Independent [facility] 08-14-2023 Functional status Up ad laura [facility] Work Phone: 07-31-2023 Functional status Ambulates [facility] Work Phone: 07-27-2023 Functional Status Standard Safet y ID band on, Call device within reach, Bed in low position, Wheels locked, Upper/Half-Length side-rails up, Bedside Cart Locked, Safety level maintained [facility] 12-09-2021 Functional Status Farnaz [facility] Mental Status Date Assessment Result Facility 12-11-2024 Cognitive function Voice/Name [facility] Work Phone: 09-02-2023 Mental Status Orientation Oriented x 4 [facility] 09-02-2023 Mental Status [facility] 08-14-2023 Cognitive function Voice/Name [facility] Work Phone: 08-08-2023 [facility] 07-31-2023 Cognitive function Voice/Name [facility] Work Phone: 07-27-2023 Mental Status Orientation Oriented x 4 [facility] Clinical Notes 08-23-2022 to 03-02-2025 Artur Georges MD - 03/02/2025 9:20 AM EDTArtur Georges MD - 03/02/2025 9:20 AM EDTTelephone Encounter - Roxana Humphreys RN - 01/27/2025 3:18 PM Sean Stinson RN - 01/22/2025 10:00 AM EDT Note Date & Type Note Facility 03-02-2025 History of Presen t illness Narrative Cystoscopy Procedure Note Pre-operative Diagnosis: History of urinary retention. Passed VT 01/22/25 Post-operative Diagnosis: Same Procedure Details The risks, benefits, complications, treatment options, and expected outcomes were discussed with the patient. The patient concurred with the proposed plan, giving informed consent. Cystoscopy was performed without incident. The patient was placed in the lithotomy position, prepped with Betadine, and draped in the usual sterile fashion. Lidocaine jelly was instilled into the urethra to effect local anesthesia. The sheathed digital flexible cystoscope was passed into the bladder without incident Findings: Urethra: normal without stenosis or evidence for urethral diverticulum Bladder: No tumors, diverticulae, stones, or mucosal abnormalities were seen Ureteral orifices: Normal position and effluxing clear urine. Specimens: None Complications: None. Patient tolerated the procedure well Plan: See E&M Artur Georges M.D. Images from the original note were not included. Artur Georges MD 03/02/2025 at 12:01 PM Office follow up PATIENT NAME: Jero Lewis DATE OF : 1945 TODAY'S DATE: 03/02/2025 CHIEF COMPLAINT: Chief Complaint Patient presents with Procedure Cysto Subjective: Ms. Lewis is a 79 y.o. female who had cysto today. History of Urinary Retention Passed VT 01/22/25 Cysto normal Review of Systems No Distress Respiratory WNL Past Medical History: Medical History[1] Past Surgical History: Surgical History[2] Allergies: Atorvastatin, Codeine, Simvastatin, and Propoxyphene Social History: Social History Socioeconomic History Marital status: Unknown Spouse name: Not on file Number of children: Not on file Years of education: Not on file Highest education level: Not on file Occupational History Not on file Tobacco Use Smoking status: Not on file Smokeless tobacco: Not on file Substance and Sexual Activity Alcohol use: Not on file Drug use: Not on file Sexual activity: Not on file Other Topics Concern Not on file Social History Narrative Not on file Social Drivers of Health Financial Resource Strain: Not on file Food Insecurity: Not on file Transportation Needs: Not on file Physical Activity: Not on file Stress: Not on file Social Connections: Not on file Intimate Partner Violence: Not on file Housing Stability: Not on file Family History: Family History[3] Medications Prior to Admission medications Medication Sig Start Date End Date Taking? Authorizing Provider acetaminophen (Tylenol Extra Strength) 500 MG tablet Take 500 mg by mouth every 8 hours as needed for mild pain (1-3). Historical Provider, bisacodyl (Dulcolax) 10 MG suppository Insert 10 mg into the rectum Daily as needed for constipation. Historical Provider, busPIRone (Buspar) 5 MG tablet Take 10 mg by mouth 2 times daily. 04/17/24 Historical Provider, carvedilol (Coreg) 3.125 MG tablet Take 6.25 mg by mouth 2 times daily (with meals). 10/29/24 Historical Provider, clonazePAM (KlonoPIN) 1 MG tablet Take 1 mg by mouth Nightly. 01/12/25 Historical Provider, ipratropium (Atrovent) 0.03 % nasal spray Administer 1 spray into each nostril 2 times daily. 10/03/24 Historical Provider, levothyroxine (Synthroid, Levoxyl) 112 MCG tablet Take by mouth every morning (before breakfast). 11/03/24 Historical Provider, losartan (Cozaar) 100 MG tablet Take 100 mg by mouth daily. 01/12/25 Historical Provider, magnesium citrate solution Take 300 mL by mouth as needed (constipation). Historical Provider, magnesium hydroxide (Milk of Magnesia) 400 MG/5ML suspension Take 30 mL by mouth Nightly. Prn constipation Historical Provider, oxyCODONE (Oxy-IR) 5 MG immediate release capsule Take 5 mg by mouth every 4 hours as needed for severe pain (7-10). Historical Provider, senna-docusate (Rupa-Colace) 8.6-50 MG tablet Take 1 tablet by mouth. prn 01/12/25 Historical Provider, sertraline (Zoloft) 100 MG tablet Take 150 mg by mouth daily. 11/06/24 Historical Provider, tamsulosin (Flomax) 0.4 MG 24 hr capsule Take 0.4 mg by mouth daily. 01/12/25 Historical Provider, Vitals: BP 121/54 (BP Location: Right arm, Patient Position: Sitting) Pulse 73 Wt 160 lb (72.6 kg) Physical Exam General: No distress Abdomen: Back: : Labs: WBC No results found for: WBC BMP No results found for: NA, K, CL, CO2, BUN, CREATININE, GLUCOSE, CALCIUM PSA No results found for: PSA UANo results found for: APPEARANCE, COLORU, LABSPEC, LABPH, URINE, GLUCOSEU, UROBILINOGEN, BILIRUBINUR, OCBU Review: had cysto today ( normal) . History of Urinary Retention Passed VT 01/22/25 Impression/Plan Jero was seen today for procedure. Diagnoses and all orders for this visit: Urinary retention (Primary) - sulfamethoxazole-trimethoprim (Bactrim DS) 800-160 MG per tablet 1 tablet Follow up if symptoms worsen or fail to improve. Artur Georges MD 03/02/25 12:01 PM [1] No past medical history on file. [2] No past surgical history on file. [3] No family history on file. documented in this encounter 03-02-2025 Note Cystoscopy Procedure Note Pre-operative Diagnosis: History of urinary retention. Passed VT 01/22/25 Post-operative Diagnosis: Same Procedure Details The risks, benefits, complications, treatment options, and expected outcomes were discussed with the patient. The patient concurred with the proposed plan, giving informed consent. Cystoscopy was performed without incident. The patient was placed in the lithotomy position, prepped with Betadine, and draped in the usual sterile fashion. Lidocaine jelly was instilled into the urethra to effect local anesthesia. The sheathed digital flexible cystoscope was passed into the bladder without incident Findings: Urethra: normal without stenosis or evidence for urethral diverticulum Bladder: No tumors, diverticulae, stones, or mucosal abnormalities were seen Ureteral orifices: Normal position and effluxing clear urine. Specimens: None Complications: None. Patient tolerated the procedure well Plan: See E&M Artur Georges M.D. [facility] 01-27-2025 Telephone encount er Note Pt scheduled for cysto with Dr. Georges on 03/02 at 9:20am. This is the earliest facility can bring the patient in for appt as Pt under nursing home . Ayala aware someone has to come in with patient if transfer/ambulation help needed. 01-27-2025 Miscellaneous Notes Formattin g of this note might be different from the original. Pt scheduled for cysto with Dr. Georges on 03/02 at 9:20am. This is the earliest facility can bring the patient in for appt as Pt under nursing home . Ayala aware someone has to come in with patient if transfer/ambulation help needed. Message released to patient as written. Patient's further questions if applicable: message was released to Ayala and she would like to schedule cystoscopy Were all questions from office addressed or relayed to the patient from encounter: Yes Keep richter and needs follow up for cystoscopy in the next couple of weeks. Ayala with [facility] left a VM in regards to the patient and advised that the patient did not pass the VT conducted at the facility and was bladder scanned for 674 mL so richter was reinserted. The patient states the provider at the facility states they used to do bladder clamping back in the day and is asking if this could be performed for the patient. Please advise if this is something still performed and recommended. documented in this encounter 01-26-2025 Telephone encount er Note Message released to patient as written. Patient's further questions if applicable: message was released to Ayala and she would like to schedule cystoscopy Were all questions from office addressed or relayed to the patient from encounter: Yes 01-26-2025 Miscellaneous Notes Formattin g of this note might be different from the original. Message released to patient as written. Patient's further questions if applicable: message was released to Ayala and she would like to schedule cystoscopy Were all questions from office addressed or relayed to the patient from encounter: Yes Keep richter and needs follow up for cystoscopy in the next couple of weeks. Ayala with [facility] left a VM in regards to the patient and advised that the patient did not pass the VT conducted at the facility and was bladder scanned for 674 mL so richter was reinserted. The patient states the provider at the facility states they used to do bladder clamping back in the day and is asking if this could be performed for the patient. Please advise if this is something still performed and recommended. documented in this encounter 01-23-2025 Telephone encount er Note Keep richter and needs follow up for cystoscopy in the next couple of weeks. [facility] [employer] Work Phone: 01-23-2025 Telephone encount er Note [facility] left a VM in regards to the patient and advised that the patient did not pass the VT conducted at the facility and was bladder scanned for 674 mL so richter was reinserted. The patient states the provider at the facility states they used to do bladder clamping back in the day and is asking if this could be performed for the patient. Please advise if this is something still performed and recommended. 01-22-2025 History of Presen t illness Narrative . Urology Office Visit [facility] [address], [address] [place] [id number] Visit type: New Patient Reason for Visit: Urinary Retention (VT/Hospitalized for fall and broken patella) Assessment and Plan Diagnoses and all orders for this visit: Urinary retention VT today was successful. Ok to leave catheter out. Instructions provided for SNF regarding monitoring UO and replacing richter if pt is unable to urinate. No follow-ups on file. Subjective HPI Jero is an 79 year old female here for follow up after hospital admission at [facility] after falling and injuring her left knee. While in the hospital she has some urinary retention and a richter catheter was placed. Prior to discharge, a VT was performed and she was unable to void so the richter was replaced. VT today was successful. Ok to leave catheter out. Instructions provided for SNF regarding monitoring UO and replacing richter if pt is unable to urinate. Review of Systems Allergies Allergen Reactions Atorvastatin Unknown Other Reaction(s): myalgia Codeine Nausea Only Simvastatin Other Propoxyphene Nausea Only Other Reaction(s): vomiting Current Outpatient Medications: acetaminophen (Tylenol Extra Strength) 500 MG tablet, Take 500 mg by mouth every 8 hours as needed for mild pain (1-3)., Disp: , Rfl: bisacodyl (Dulcolax) 10 MG suppository, Insert 10 mg into the rectum Daily as needed for constipation., Disp: , Rfl: busPIRone (Buspar) 5 MG tablet, Take 10 mg by mouth 2 times daily., Disp: , Rfl: carvedilol (Coreg) 3.125 MG tablet, Take 6.25 mg by mouth 2 times daily (with meals)., Disp: , Rfl: clonazePAM (KlonoPIN) 1 MG tablet, Take 1 mg by mouth Nightly., Disp: , Rfl: ipratropium (Atrovent) 0.03 % nasal spray, Administer 1 spray into each nostril 2 times daily., Disp: , Rfl: levothyroxine (Synthroid, Levoxyl) 112 MCG tablet, Take by mouth every morning (before breakfast)., Disp: , Rfl: losartan (Cozaar) 100 MG tablet, Take 100 mg by mouth daily., Disp: , Rfl: magnesium citrate solution, Take 300 mL by mouth as needed (constipation)., Disp: , Rfl: magnesium hydroxide (Milk of Magnesia) 400 MG/5ML suspension, Take 30 mL by mouth Nightly. Prn constipation, Disp: , Rfl: oxyCODONE (Oxy-IR) 5 MG immediate release capsule, Take 5 mg by mouth every 4 hours as needed for severe pain (7-10)., Disp: , Rfl: senna-docusate (Rupa-Colace) 8.6-50 MG tablet, Take 1 tablet by mouth. prn, Disp: , Rfl: sertraline (Zoloft) 100 MG tablet, Take 150 mg by mouth daily., Disp: , Rfl: tamsulosin (Flomax) 0.4 MG 24 hr capsule, Take 0.4 mg by mouth daily., Disp: , Rfl: No past medical history on file. Social History Socioeconomic History Marital status: Unknown No past surgical history on file. No past surgical history on file. No family history on file. Objective BP 110/54 Pulse 66 Physical Exam Constitutional: Appearance: Normal appearance. Neurological: General: No focal deficit present. Mental Status: She is alert. Psychiatric: Mood and Affect: Mood normal. Behavior: Behavior normal. Data Reviewed POCT: Labs: Imaging/Testing: Chart Clean Up: There are no discontinued medications. DORIS Uriostegui CNP 01/22/2025 12:36 PM Pt presents for Voiding Trial Instilled 250CC Sterile Water into Urinary Bladder Removed 16Fr catheter after deflating 10cc balloon Pt was able to void 100 cc immediately documented in this encounter 01-19-2025 Telephone encount er Note Returned the call to residential. Spoke with nurse Gorman. Will send fax documents of pt history and discharge information from [facility]. Scheduled new patient appt 01/22/25 10:00 AM w/Rosita for *hosp follow up [facility]/urinary retention/richter removal/voiding trial* Per [facility] the patient failed one VT while in hospital unclear of date possibly 01/13/25. 01-19-2025 Miscellaneous Notes Formattin g of this note might be different from the original. Returned the call to residential. Spoke with nurse Gorman. Will send fax documents of pt history and discharge information from [facility]. Scheduled new patient appt 01/22/25 10:00 AM w/Rosita for *hosp follow up [facility]/urinary retention/richter removal/voiding trial* Per [facility] the patient failed one VT while in hospital unclear of date possibly 01/13/25. Name of Caller: Obi Contact Reason for Appointment: Obi called in to get patient established for urinary retention and not being able to remove richter. Please be advised Office Name: [facility] documented in this encounter 01-19-2025 Telephone encount er Note Name of Caller: Obi Contact Reason for Appointment: Obi called in to get patient established for urinary retention and not being able to remove richter. Please be advised Office Name: [facility] 01-12-2025 Note [facility] 12-11-2024 Note [facility] 12-11-2024 Discharge summary Note Date/Time December 11, 2024 11:52am [facility] Medical Records Department [address] [place] [address] Discharge Summary 12/11/24 0948 MR#: [id number] Acct: [id number] Name: JERO LEWIS Rep #:[id number] : 1945 79 From: Donovan buchanan DO PCP: Dr. Argelia Darby DO Status:ADM IN Location: [facility] [id number] Providers Date of Admission: 12/06/24 Date of Discharge: 12/11/24 Primary Care Physician: Dr. Argelia Darby, DO Consultations 12/06/24 20:03 Consult: Orthopedics Routine Consulting Provider: -Attn: [facility] Reason for Consult: Patellar Fracture EMERGENT Consult: Yes MD Notified: Yes Date Notified: 12/06/24 Time Notified: 18:50 Method of Notification: ED Physician Initiated 12/06/24 22:09 Consult: Cardiology Routine Consulting Provider: Michelle Dang Reason for Consult: elevated troponins EMERGENT Consult: No MD Notified: Yes Date Notified: 12/07/24 Time Notified: 07:29 Method of Notification: Text 12/09/24 17:20 Consult: Nephrology Routine Consulting Provider: De Snowden Reason for Consult: low sodium EMERGENT Consult: No Notified: Yes Date Notified: 12/09/24 Time Notified: 17:59 Method of Notification: Answering Service Reason For Visit: SYNCOPE Diagnosis Discharge Diagnosis (1) Elevated troponin: Status: Acute Code(s): R79.89 - Other specified abnormal findings of blood chemistry (2) Syncope: Status: Acute Code(s): R55 - Syncope and collapse Qualifiers: Syncope type: unspecified Qualified Code(s): R55 - Syncope and collapse (3) Preoperative cardiovascular examination: Status: Acute Code(s): Z01.810 - Encounter for preprocedural cardiovascular examination Medications at Discharge Home Medications atorvastatin 20 mg tablet 20 mg PO DAILY hld 07/28/23 aspirin 81 mg tablet,delayed release (Adult Aspirin Regimen) 81 mg PO DAILY #90 tabs 09/04/23 Held on 12/09/24. Instructions: Resume on 12/23/24. hold as she is being put on PO aspirin 81mg bid x 2 weeks for DVT prophylaxis. To resume aspirin 81mg daily when she completes the course of PO aspirin 81mg bid x 2 weeks. calcium 600 mg-D3 800 unit-mag 40 yy-rchi-lrwn-joseph-boron chew tablet (Caltrate 600-D Plus Minerals) 1 tab PO BID 09/04/23 cyanocobalamin (vitamin B-12) 1,000 mcg capsule 1,000 mcg PO QMONTH 09/04/23 olmesartan 40 mg tablet 40 mg PO DAILY see #90 tabs 10/25/23 ipratropium bromide 21 mcg (0.03 %) nasal spray 2 spray intranasal BID 03/11/24 levocetirizine 5 mg tablet 5 mg PO QDAY 03/11/24 sertraline 100 mg tablet 100 mg PO QDAY 03/11/24 levothyroxine 125 mcg tablet 112 mcg PO QDAY 06/10/24 liothyronine 5 mcg tablet 5 mcg PO QDAY 12/04/24 carvedilol 3.125 mg tablet 3.125 mg PO BID 12/06/24 acetaminophen 325 mg tablet (Tylenol) 650 mg (2 x 325 mg) PO Q6H PRN pain #30 tabs 12/09/24 aspirin 81 mg tablet,delayed release 81 mg PO BID 14 days #28 tabs 12/09/24 meclizine 25 mg tablet 25 mg PO TID #90 tabs 12/09/24 oxycodone 5 mg tablet 5 mg PO Q6H PRN PRN Pain Score 4-10 3 days #12 tabs 12/11/24 sodium chloride 1,000 mg soluble tablet 2,000 mg (2 x 1,000 mg) PO TID 30 days #180 tabs 12/11/24 Hospital Course Operations None Procedures EKG and - (CT brain/C-spine/facial and sinus, knee x-ray, chest x-ray) Summary of Care Provided Minutes Spent on Discharge: 35 Hospital Course: Patient is an 79-year-old female who presented [facility] ED on 12/06/2024 with left knee pain after a fall. Hospital course as noted below. Patient discharged to TCU in stable condition on 12/11. 1. Left patella fracture due to mechanical fall with acute on chronic debility ? Orthopedic surgery followed. PT/OT/case management follow-up. Left knee x-ray on admit showed acute patellar fracture. Orthopedics recommended conservative management with 50% weightbearing in knee immobilizer. Pain control with Tylenol and oxycodone as needed. DVT prophylaxis with aspirin twice daily for 30 days. Stable for discharge to TCU on 12/11. Will follow-up with orthopedics in the office after discharge from TCU. 2. Hyponatremia ? Nephrology followed. Patient has history of chronic hyponatremia and nephrology has followed her in the past. Sodium abida of 118 on 12/10. Given dose of tolvaptan by nephrology on 12/10, repeat sodium 122 on 12/11. Per nephrology, patient okay for discharge on 12/11. Continue sodium chloride 2 g three times daily, fluid restriction of 1500 mL daily and increased protein/solute intake on discharge. Recommend repeat BMP in 3 to 5 days to ensure sodium level remains stable. 3. Syncope with history of nonsustained V. tach ? Cardiology followed. Has history of recurrent syncope and follows with [facility] in the office. Notably had recent workup that showed V. tach but normal stress test as noted below and cardiology suspected a noncardiacorigin of syncope. Continue meclizine as needed. 4. Elevated troponins ? Suspected secondary to demand ischemia from syncope. Initial troponin 108 andup trended with peak of 184. Cardiology followed as above and recent stress test was negative so no need for further cardiac workup here. 5. Nonsustained V. tach ? Cardiology followed as above. Had Holter monitoring done recently that showednonsustained V. tach, but recent stress test was negative for ischemia and coronary angiogram back in 2019 showed mild nonobstructive CAD. Cardiology suspects noncardiac origin of syncope. Okay to continue home Coreg on discharge. Chronic medical conditions: ? History of nonobstructive CAD, hypertension, hyperlipidemia: Continue home statin, Coreg, and olmesartan. Treating with baby aspirin twice daily for 30 days as noted above, then okay to resume baby aspirin daily. ? Depression: Continue home sertraline. ? Hypothyroidism: Continue home Synthroid and liothyronine. Total clinical time spent by myself addressing the patient's medical issues, reviewing all the data, and collaborating with patient's care team: 35 minutes. Physical Exam Const alert, oriented x3 and no apparent distress Constitutional Narrative: pain is well controlled. General Appearance: cooperative HEENT normocephalic and oropharynx normal Eyes PERRL and EOMs intact bilaterally Neck no lymphadenopathy and supple Lymph Lymphatic: no lymphadenopathy noted and no lymphedema noted Resp normal respiratory effort, normal air movement and no retractions Resp Narrative: mildly diminished breath sounds bibasally, no wheezes or crackles. Cardio regular rate, regular rhythm, S1 normal heart sound, S2 normal heart sound and no murmurs GI normal to inspection, nondistended, normoactive bowel sounds, soft to palpation,non-tender and non-distended Extremity normal capillary refill, no clubbing, cyanosis or edema and no calf tenderness Extremity Narrative: left knee in knee brace Skin General Skin Exam: no breakdown Neuro oriented x3 and CN's II-XII intact bilaterally Neuro Narrative: pain in LLE due to fractured left patella is fairly well controlled. . Sensorium / Orientation: alert Motor Exam: general weakness Psych Appearance: appropriate Weight / BMI Weight Weight: 79.9 kg Body Mass Index (BMI) 28.4 ABG / Lab / Microbiology Data 12/11/24 04:42 12/11/24 04:42 Laboratory: Laboratory Results - last 24 hr 12/10/24 13:54: Sodium 118 L*, Potassium 4.4, Chloride 88 L, Carbon Dioxide 18.5L, Anion Gap 12, BUN 19, Creatinine 0.67 L, Estim Creat Clear Calc 58.80, Est GFR (MDRD) Non-Af 88, BUN/Creatinine Ratio 28.0 H, Glucose 110 H, Calcium 8.8 12/11/24 04:42: WBC 7.2, RBC 4.09 L, Hgb 12.0, Hct 35.0 L, MCV 85.6, MCH 29.3, MCHC 34.3, RDW Std Deviation 39.5, RDW Coeff of Alejo 12.7, Plt Count 277, MPV 9.8, Immature Gran % (Auto) 0.700, Neut % (Auto) 79.8 H, Lymph % (Auto) 9.1 L, Meigs % (Auto) 8.5, Eos % (Auto) 1.5, Baso % (Auto) 0.4, Absolute Neuts (auto) 5.7, Absolute Lymphs (auto) 0.65 L, Nucleated RBC % 0, Sodium 122 L, Potassium 4.7, Chloride 91 L, Carbon Dioxide 18.5 L, Anion Gap 12, BUN 23 H, Creatinine 0.95, Estim Creat Clear Calc 49.52 L, Est GFR (MDRD) Non-Af 60, BUN/Creatinine Ratio 24.2 H, Glucose 108 H, Calcium 9.1 D/C Instructions Discharge Diet: Low fat / Low cholesterol Weight Bearing Status: Partial weight bearing Call your doctor if you observe: Fever of 101 or Higher, Shortness of breath, Dizziness, Chest pain and Uncontrolled pain DC O2, CPAP, BIPAP Needs Home O2 Discharge instructions: No Meaningful Use Info Meaningful Use Meaningful Use Diagnoses (Choose all that apply): None applicable Ischemic Stroke Statin Dosing Therapy Reference: STATIN DOSE THERAPY REFERENCE: * Patients > 75 years receive moderate or high dose statin therapy. * Patients 75 years or YOUNGER should receive HIGH intensity statin dose unless contraindicated. You will be required to document reason for non-treatment if statin daily dose does not meet guidelines. HIGH DOSE STATIN THERAPY DAILY Atorvastatin > than or = to 40 mg Rosuvastatin > than or = to 20 mg Amlodipine + Atorvastatin > than or = to 2.5/40 mg Ezetimibe + Simvastatin 10/80 mg Simvastatin 80mg Discharge Plan Admission Admit Date/Time: 12/06/24 18:45 Primary Reason for Your Visit: left patella fracture, mechanical fall Attending Provider: Donovan Cano Primary Care Provider: Argelia Darby Consulting Providers: -Attn: Danielle Coker,[facility]; Sandro Jackman; Michelle Dang; De Snowden; Montse Cabrera Instructions Patient Instructions: ED Patella Fracture Discharge Orders/Prescriptions Prescriptions: New meclizine 25 mg Tablet 25 mg PO TID Qty: 90 2RF acetaminophen [Tylenol] 325 mg tablet 650 mg PO Q6H PRN (Reason: pain) Qty: 30 1RF aspirin 81 mg tablet,delayed release (DR/EC) 81 mg PO BID 14 Days Qty: 28 0RF oxycodone 5 mg Tablet 5 mg PO Q6H PRN PRN (Reason: Pain Score 4-10) 3 Days Qty: 12 0RF sodium chloride 1,000 mg Tablet,Soluble 2,000 mg PO TID 30 Days Qty: 180 0RF Continued Caltrate 600-D Plus Minerals 600 mg calcium- 800 unit-40 mg tablet,chewable 1 tab PO BID cyanocobalamin (vitamin B-12) 1,000 mcg capsule 1,000 mcg PO QMONTH Rx Instructions: pt takes once a month at primary office levocetirizine 5 mg tablet 5 mg PO QDAY sertraline 100 mg tablet 100 mg PO QDAY ipratropium bromide 21 mcg (0.03 %) spray,non-aerosol 2 spray intranasal BID Patient Comments: [NO ORIGINAL SIG] levothyroxine 125 mcg tablet 112 mcg PO QDAY liothyronine 5 mcg tablet 5 mcg PO QDAY atorvastatin 20 mg tablet 20 mg PO DAILY Patient Comments: take 1 tablet by mouth once daily carvedilol 3.125 mg tablet 3.125 mg PO BID olmesartan 40 mg tablet 40 mg PO DAILY Qty: 90 3RF Held aspirin [Adult Aspirin Regimen] 81 mg tablet,delayed release (DR/EC) 81 mg PO DAILY Qty: 90 3RF Hold Instructions: Resume on 12/23/24. hold as she is being put on PO [id number] bid x 2 weeks for DVT prophylaxis. To resume aspirin 81mg daily when she completes the course of PO aspirin 81mg bid x 2 weeks. Discontinued metoprolol tartrate 50 mg tablet 50 mg PO BID Qty: 180 3RF spironolactone 25 mg tablet 25 mg PO DAILY Qty: 90 3RF acetaminophen 500 mg Tablet 1,000 mg PO Q6H PRN PRN (Reason: Pain Score 1-10) Qty: 0 0RF meloxicam 15 mg Tablet 15 mg PO DAILY Qty: 0 0RF sodium chloride 1,000 mg tablet,soluble 1,000 mg PO BID Qty: 60 0RF Patient Comments: take 1 tablet by mouth daily EXCEPT TAKE 2 TABS ON SUNDAY, WEDNESDAYS AND FRIDAYS Referrals / Follow Up: Argelia Darby DO [Primary Care Provider] - Within 1 Week Luis Dozier MD [Med Staff - Active Staff] - Within 1 Week Disposition Disposition (needs filled in before D/C Order can be placed): [facility] Facility Charges/Coding Visit Charges Inpatient E&M: 39852 Disch Hosp >30min 12/11/24 1104 <Electronically signed by Donovan Cano DO> Cosigner Signature (if applicable): CC: Dr. Donovan Cano DO; Dr. Argelia Darby DO~ Signed ADDENDUM by Dr. Donovan Cano DO on 12/11/24 at 1152 Addendum Correction: Will be treating with baby aspirin twice daily for 14 days total andthen resuming home baby aspirin daily on 12/23. 12/11/24 1152<Electronically signed by Donovan Cano DO> Cosigner Signature (if applicable): cc: Dr. Donovan Cano DO; Dr. Argelia Darby DO ~* Signed [facility] Work Phone: 1(708) 829-830003-20-2025 Consult note Author Marisa Najera [facility] Note Date/Time December 11, 2024 11: 44am [facility] Medical Records Department [address] [place] [address] Counseling Note - Pharmacy 12/11/24 1144 MR#: [id number] Acct: [id number] Name: JERO LEWIS Rep #:[id number] : 1945 79 From: Marisa Najera PCP: Dr. Argelia Darby, DO Status:ADM IN Y Location: [place] [address] Pharmacy [place] Med Reconciliation Pharmacy Service has performed discharge medication reconciliation for this patient upon transfer to TCU. The patient's discharge medication list was reviewed for discrepancies and discrepancies were resolved. Medications at Discharge Home Medications atorvastatin 20 mg tablet 20 mg PO DAILY hld 07/28/23 aspirin 81 mg tablet,delayed release (Adult Aspirin Regimen) 81 mg PO DAILY #90 tabs 09/04/23 Held on 12/09/24. Instructions: Resume on 12/23/24. hold as she is being put on PO aspirin 81mg bid x 2 weeks for DVT prophylaxis. To resume aspirin 81mg daily when she completes the course of PO aspirin 81mg bid x 2 weeks. calcium 600 mg-D3 800 unit-mag 40 [id number]-pmqz-joseph-boron chew tablet (Caltrate 600-D Plus Minerals) 1 tab PO BID 09/04/23 cyanocobalamin (vitamin B-12) 1,000 mcg capsule 1,000 mcg PO QMONTH 09/04/23 olmesartan 40 mg tablet 40 mg PO DAILY see #90 tabs 10/25/23 ipratropium bromide 21 mcg (0.03 %) nasal spray 2 spray intranasal BID 03/11/24 levocetirizine 5 mg tablet 5 mg PO QDAY 03/11/24 sertraline 100 mg tablet 100 mg PO QDAY 03/11/24 levothyroxine 125 mcg tablet 112 mcg PO QDAY 06/10/24 liothyronine 5 mcg tablet 5 mcg PO QDAY 12/04/24 carvedilol 3.125 mg tablet 3.125 mg PO BID 12/06/24 acetaminophen 325 mg tablet (Tylenol) 650 mg (2 x 325 mg) PO Q6H PRN pain #30 tabs 12/09/24 aspirin 81 mg tablet,delayed release 81 mg PO BID 14 days #28 tabs 12/09/24 meclizine 25 mg tablet 25 mg PO TID #90 tabs 12/09/24 oxycodone 5 mg tablet 5 mg PO Q6H PRN PRN Pain Score 4-10 3 days #12 tabs 12/11/24 sodium chloride 1,000 mg soluble tablet 2,000 mg (2 x 1,000 mg) PO TID 30 days #180 tabs 12/11/24 12/11/24 1144 <Electronically signed by Marisa Najera > Date _ Marisa Najera Cosigner Signature (if applicable): Date CC: ~ Signed [facility] Work Phone: [phone]) 735-997603-20-2025 Discharge summary [facility] Note Date/Time December 11, 2024 11: 02am [facility] Medical Records Department [address] [place] [address] Transfer to [facility] MR#: [id number] Acct: [id number] Name: JERO LEWIS Rep #:[id number] : 1945 79 From: Donovan buchanan DO PCP: Dr. Argelia Darby, Status:ADM IN Certification of patient admission REQUIRED AT TIME OF ADMISSION. I CERTIFY THAT POST-[facility]OSP[facility] SERVICES ARE REQUIRED TO BE GIVEN ON AN IN-PATIENT BASIS BECAUSE OF THE ABOVE NAMED PATIENT'S NEED FOR SKILLED NURSING CARE ON A CONTINUING BASIS FOR THE CONDITION(S) FOR WHICH HE/SHE WAS RECEIVING IN-PATIENT HOSPITAL SERVICES PRIOR TO HIS/HER TRANSFER TO THE [facility]. 12/11/24 1102<Electronically signed by Donovan Cano DO> Diet Diet Order/Speech Therapy: 12/06/24 20:03 Diet: Regular - General Food consistency:: Regular Liquid Consistency:: Regular/Thin Routine Orders/Code Status Enema Type: Fleetz Enema Frequency: Daily PRN Suppository Type: Dulcolax 10mg Suppository Frequency: Daily PRN Routine Lab Work: BMP (Repeat in 3 to 5 days to monitor sodium level.) Code Status: DNRCC-A (DO NOT INTUBATE) DC O2, CPAP, BIPAP needs Home O2 Discharge instructions: No Wound(s) right forehead: Wound Type: Abrasion lips: Wound Type: Abrasion left knee: Wound Type: Abrasion Therapies Weight Bearing: Partial weight bearing (50% weightbearing in knee immobilizer) Physical Therapy: Eval and Treat Occupational Therapy: Eval and Treat Problem/Diagnosis (1) Elevated troponin: Status: Acute Code(s): R79.89 - Other specified abnormal findings of blood chemistry (2) Syncope: Status: Acute Code(s): R55 - Syncope and collapse (3) Preoperative cardiovascular examination: Status: Acute Code(s): Z01.810 - Encounter for preprocedural cardiovascular examination Plan Patient is an 79-year-old female who presented [facility] ED on 12/06/2024 with left knee pain after a fall. Hospital course as noted below. Patient discharged to TCU in stable condition on 12/11. 1. Left patella fracture due to mechanical fall with acute on chronic debility ? Orthopedic surgery followed. PT/OT/case management follow-up. Left knee x-ray on admit showed acute patellar fracture. Orthopedics recommended conservative management with 50% weightbearing in knee immobilizer. Pain control with Tylenol and oxycodone as needed. DVT prophylaxis with aspirin twice daily for 30 days. Stable for discharge to TCU on 12/11. Will follow-up with orthopedics in the office after discharge from TCU. 2. Hyponatremia ? Nephrology followed. Patient has history of chronic hyponatremia and nephrology has followed her in the past. Sodium abida of 118 on 12/10. Given dose of tolvaptan by nephrology on 12/10, repeat sodium 122 on 12/11. Per nephrology, patient okay for discharge on 12/11. Continue sodium chloride 2 g three times daily, fluid restriction of 1500 mL daily and increased protein/solute intake on discharge. Recommend repeat BMP in 3 to 5 days to ensure sodium level remains stable. 3. Syncope with history of nonsustained V. tach ? Cardiology followed. Has history of recurrent syncope and follows with [facility] in the office. Notably had recent workup that showed V. tach but normal stress test as noted below and cardiology suspected a noncardiacorigin of syncope. Continue meclizine as needed. 4. Elevated troponins ? Suspected secondary to demand ischemia from syncope. Initial troponin 108 andup trended with peak of 184. Cardiology followed as above and recent stress test was negative so no need for further cardiac workup here. 5. Nonsustained V. tach ? Cardiology followed as above. Had Holter monitoring done recently that showednonsustained V. tach, but recent stress test was negative for ischemia and coronary angiogram back in 2019 showed mild nonobstructive CAD. Cardiology suspects noncardiac origin of syncope. Okay to continue home Coreg on discharge. Chronic medical conditions: ? History of nonobstructive CAD, hypertension, hyperlipidemia: Continue home statin, Coreg, and olmesartan. Treating with baby aspirin twice daily for 30 days as noted above, then okay to resume baby aspirin daily. ? Depression: Continue home sertraline. ? Hypothyroidism: Continue home Synthroid and liothyronine. Total clinical time spent by myself addressing the patient's medical issues, reviewing all the data, and collaborating with patient's care team: 35 minutes. Allergies/Procedures Done in Hospital Allergies propoxyphene HCl (From Darvon) Allergy (Verified 12/06/24 16:36) Nausea atorvastatin Adverse Reaction (Intermediate, Verified 12/06/24 16:36) myalgia codeine Adverse Reaction (Intermediate, Verified 12/06/24 16:36) Nausea simvastatin Adverse Reaction (Intermediate, Verified 12/06/24 16:36) Myalgia Procedures: EKG and - (CT brain/C-spine/facial and sinus, knee x-ray, chest x- ray) Type of Care/Length of Stay Estimated LOS: Convalescent Care Less Than 30 days Type of Care Needed: Skilled Rehab Potential: Fair Prognosis: Fair Additional Orders/Day of Discharge H&P will serve as current which was dated: 12/06/24 Day of Discharge: 12/11/24 Dietary and Speech Recommendations Dietitian Recommendations/Changes: Continue regular diet. Will monitor weight trends. Discharge Plan Admission Admit Date/Time: 12/06/24 18:45 Primary Reason for Your Visit: left patella fracture, mechanical fall Attending Provider: Donovan Cano Primary Care Provider: Argelia Darby Consulting Providers: -Attn: Danielle CokerSPENSERF [facility]; Sandro Jackman; Michelle Dang; De Snowden; Montse Cabrera Instructions Patient Instructions: ED Patella Fracture Discharge Orders/Prescriptions Prescriptions: New meclizine 25 mg Tablet 25 mg PO TID Qty: 90 2RF acetaminophen [Tylenol] 325 mg tablet 650 mg PO Q6H PRN (Reason: pain) Qty: 30 1RF aspirin 81 mg tablet,delayed release (DR/EC) 81 mg PO BID 14 Days Qty: 28 0RF oxycodone 5 mg Tablet 5 mg PO Q6H PRN PRN (Reason: Pain Score 4-10) 3 Days Qty: 12 0RF sodium chloride 1,000 mg Tablet,Soluble 2,000 mg PO TID 30 Days Qty: 180 0RF Continued Caltrate 600-D Plus Minerals 600 mg calcium- 800 unit-40 mg tablet,chewable 1 tab PO BID cyanocobalamin (vitamin B-12) 1,000 mcg capsule 1,000 mcg PO QMONTH Rx Instructions: pt takes once a month at primary office levocetirizine 5 mg tablet 5 mg PO QDAY sertraline 100 mg tablet 100 mg PO QDAY ipratropium bromide 21 mcg (0.03 %) spray,non-aerosol 2 spray intranasal BID Patient Comments: [NO ORIGINAL SIG] levothyroxine 125 mcg tablet 112 mcg PO QDAY liothyronine 5 mcg tablet 5 mcg PO QDAY atorvastatin 20 mg tablet 20 mg PO DAILY Patient Comments: take 1 tablet by mouth once daily carvedilol 3.125 mg tablet 3.125 mg PO BID olmesartan 40 mg tablet 40 mg PO DAILY Qty: 90 3RF Held aspirin [Adult Aspirin Regimen] 81 mg tablet,delayed release (DR/EC) 81 mg PO DAILY Qty: 90 3RF Hold Instructions: Resume on 12/23/24. hold as she is being put on PO [id number] bid x 2 weeks for DVT prophylaxis. To resume aspirin 81mg daily when she completes the course of PO aspirin 81mg bid x 2 weeks. Discontinued metoprolol tartrate 50 mg tablet 50 mg PO BID Qty: 180 3RF spironolactone 25 mg tablet 25 mg PO DAILY Qty: 90 3RF acetaminophen 500 mg Tablet 1,000 mg PO Q6H PRN PRN (Reason: Pain Score 1-10) Qty: 0 0RF meloxicam 15 mg Tablet 15 mg PO DAILY Qty: 0 0RF sodium chloride 1,000 mg tablet,soluble 1,000 mg PO BID Qty: 60 0RF Patient Comments: take 1 tablet by mouth daily EXCEPT TAKE 2 TABS ON SUNDAY, WEDNESDAYS AND FRIDAYS Referrals / Follow Up: Argelia Darby DO [Primary Care Provider] - Within 1 Week Luis Dozier MD [Med Staff - Active Staff] - Within 1 Week Disposition Disposition (needs filled in before D/C Order can be placed): [facility] Facility (2) Syncope Qualifiers: Syncope type: unspecified Qualified Code(s): R55 - Syncope and collapse 12/11/24 1102 <Electronically signed by Donovan Cano DO> Cosigner Signature (if applicable): CC: [facility] - ATTN: DANIELLE COKER; Dr. Sandro Jackman MD; Dr. De Snowden MD; Dr. Argelia Darby DO; Dr. Michelle Dang MD; Dr. Montse Cabrera MD~ [facility] Work Phone: [phone] Discharge summary [facility] Medical Records Department [address] [place] [address] Discharge Summary 12/11/24 0948 MR#: [id number] Acct: [id number] Name: JERO LEWIS Rep #:[id number] : 1945 79 From: Donovan buchanan DO PCP: Dr. Argelia Darby DO Status:ADM [facility] Prov[facility] Date of Admission: 12/06/24 Date of Discharge: 12/11/24 Primary Care Physician: Dr. Argelia Darby DO Consultations 12/06/24 20:03 Consult: Orthopedics Routine Consulting Provider: -Attn: BUDDY Morejon Reason for Consult: Patellar Fracture EMERGENT Consult: Yes MD Notified: Yes Date Notified: 12/06/24 Time Notified: 18:50 Method of Notification: ED Physician Initiated 12/06/24 22:09 Consult: Cardiology Routine Consulting Provider: Michelle Dang Reason for Consult: elevated troponins EMERGENT Consult: No Notified: Yes Date Notified: 12/07/24 Time Notified: 07:29 Method of Notification: Text 12/09/24 17:20 Consult: Nephrology Routine Consulting Provider: De Snowden Reason for Consult: low sodium EMERGENT Consult: No Notified: Yes Date Notified: 12/09/24 Time Notified: 17:59 Method of Notification: Answering Service Reason For Visit: SYNCOPE Diagnosis Discharge Diagnosis (1) Elevated troponin: Status: Acute Code(s): R79.89 - Other specified abnormal findings of blood chemistry (2) Syncope: Status: Acute Code(s): R55 - Syncope and collapse Qualifiers: Syncope type: unspecified Qualified Code(s): R55 - Syncope and collapse (3) Preoperative cardiovascular examination: Status: Acute Code(s): Z01.810 - Encounter for preprocedural cardiovascular examination Medications at Discharge Home Medications atorvastatin 20 mg tablet 20 mg PO DAILY hld 07/28/23 aspirin 81 mg tablet,delayed release (Adult Aspirin Regimen) 81 mg PO DAILY #90 tabs 09/04/23 Held on 12/09/24. Instructions: Resume on 12/23/24. hold as she is being put on PO aspirin 81mg bidx 2 weeks for DVT prophylaxis. To resume aspirin 81mg daily when she completes the course of PO aspirin 81mg bid x 2 weeks. calcium 600 mg-D3 800 unit-mag 40 [id number]-rknd-joseph-boron chew tablet (Caltrate 600-D Plus Minerals) 1 tab PO BID 09/04/23 cyanocobalamin (vitamin B-12) 1,000 mcg capsule 1,000 mcg PO QMONTH 09/04/23 olmesartan 40 mg tablet 40 mg PO DAILY see #90 tabs 10/25/23 ipratropium bromide 21 mcg (0.03 %) nasal spray 2 spray intranasal BID 03/11/24 levocetirizine 5 mg tablet 5 mg PO QDAY 03/11/24 sertraline 100 mg tablet 100 mg PO QDAY 03/11/24 levothyroxine 125 mcg tablet 112 mcg PO QDAY 06/10/24 liothyronine 5 mcg tablet 5 mcg PO QDAY 12/04/24 carvedilol 3.125 mg tablet 3.125 mg PO BID 12/06/24 acetaminophen 325 mg tablet (Tylenol) 650 mg (2 x 325 mg) PO Q6H PRN pain #30 tabs 12/09/24 aspirin 81 mg tablet,delayed release 81 mg PO BID 14 days #28 tabs 12/09/24 meclizine 25 mg tablet 25 mg PO TID #90 tabs 12/09/24 oxycodone 5 mg tablet 5 mg PO Q6H PRN PRN Pain Score 4-10 3 days #12 tabs 12/11/24 sodium chloride 1,000 mg soluble tablet 2,000 mg (2 x 1,000 mg) PO TID 30 days #180 tabs 12/11/24 Hospital Course Operations None Procedures EKG and - (CT brain/C-spine/facial and sinus, knee x-ray, chest x-ray) Summary of Care Provided Minutes Spent on Discharge: 35 Hospital Course: Patient is an 79-year-old female who presented [facility] ED on 12/06/2024 with leftknee pain after a fall. Hospital course as noted below. Patient discharged to TCU in stable condition on 12/11. 1. Left patella fracture due to mechanical fall with acute on chronic debility ? Orthopedic surgery followed. PT/OT/case management follow-up. Left knee x-ray on admit showed acute patellar fracture. Orthopedics recommended conservative management with 50% weightbearing in kneeimmobilizer. Pain control with Tylenol and oxycodone as needed. DVT prophylaxis with aspirin twice daily for 30 days. Stable for discharge to TCU on 12/11. Will follow-up with orthopedics in the office after discharge from TCU. 2. Hyponatremia ? Nephrology followed. Patient has history of chronic hyponatremia and nephrology has followed her in the past. Sodium abida of 118 on 12/10. Given dose of tolvaptan by nephrology on 12/10, repeat sodium 122 on 12/11. Per nephrology, patient okay for discharge on 12/11. Continue sodium chloride 2 g three times daily, fluid restriction of 1500 mL daily and increased protein/solute intake on discharge.Recommend repeat BMP in 3 to 5 days to ensure sodium level remains stable. 3. Syncope with history of nonsustained V. tach ? Cardiology followed. Has history of recurrent syncope and follows with [facility] in the office. Notably had recent workup that showed V. tach but normal stress test as noted below and cardiology suspected a noncardiacorigin of syncope. Continue meclizine as needed. 4. Elevated troponins ? Suspected secondary to demand ischemia from syncope. Initial troponin 108 andup trended with peakof 184. Cardiology followed as above and recent stress test was negative so no need for further cardiac workup here. 5. Nonsustained V. tach ? Cardiology followed as above. Had Holter monitoring done recently that showednonsustained V. tach, but recent stress test was negative for ischemia and coronary angiogram back in 2019 showed mild nonobstructive CAD. Cardiology suspects noncardiac origin of syncope. Okay to continue home Coreg on discharge. Chronic medical conditions: ? History of nonobstructive CAD, hypertension, hyperlipidemia: Continue home statin, Coreg, and olmesartan. Treating with baby aspirin twice daily for 30 days as noted above, then okay to resume babyaspirin daily. ? Depression: Continue home sertraline. ? Hypothyroidism: Continue home Synthroid and liothyronine. Total clinical time spent by myself addressing the patient's medical issues, reviewing all the data, and collaborating with patient's care team: 35 minutes. Physical Exam Const alert, oriented x3 and no apparent distress Constitutional Narrative: pain is well controlled. General Appearance: cooperative HEENT normocephalic and oropharynx normal Eyes PERRL and EOMs intact bilaterally Neck no lymphadenopathy and supple Lymph Lymphatic: no lymphadenopathy noted and no lymphedema noted Resp normal respiratory effort, normal air movement and no retractions Resp Narrative: mildly diminished breath sounds bibasally, no wheezes or crackles. Cardio regular rate, regular rhythm, S1 normal heart sound, S2 normal heart sound and no murmurs GI normal to inspection, nondistended, normoactive bowel sounds, soft to palpation,non-tender and non-distended Extremity normal capillary refill, no clubbing, cyanosis or edema and no calf tenderness Extremity Narrative: left knee in knee brace Skin General Skin Exam: no breakdown Neuro oriented x3 and CN's II-XII intact bilaterally Neuro Narrative: pain in LLE due to fractured left patella is fairly well controlled. . Sensorium / Orientation: alert Motor Exam: general weakness Psych Appearance: appropriate Weight / BMI Weight Weight: 79.9 kg Body Mass Index (BMI) 28.4 ABG / Lab / Microbiology Data 12/11/24 04:42 12/11/24 04:42 Laboratory: Laboratory Results - last 24 hr 12/10/24 13:54: Sodium 118 L*, Potassium 4.4, Chloride 88 L, Carbon Dioxide 18.5L, Anion Gap 12, BUN 19, Creatinine 0.67 L, Estim Creat Clear Calc 58.80, Est GFR (MDRD) Non-Af 88, BUN/Creatinine Ratio 28.0 H, Glucose 110 H, Calcium 8.8 12/11/24 04:42: WBC 7.2, RBC 4.09 L, Hgb 12.0, Hct 35.0 L, MCV 85.6, MCH 29.3, MCHC 34.3, RDW Std Deviation 39.5, RDW Coeff of Alejo 12.7, Plt Count 277, MPV 9.8, Immature Gran % (Auto) 0.700, Neut % (Auto) 79.8 H, Lymph % (Auto) 9.1 L, Meigs % (Auto) 8.5, Eos % (Auto) 1.5, Baso % (Auto) 0.4, AbsoluteNeuts (auto) 5.7, Absolute Lymphs (auto) 0.65 L, Nucleated RBC % 0, Sodium 122 L, Potassium 4.7, Chloride 91 L, Carbon Dioxide 18.5 L, Anion Gap 12, BUN 23 H, Creatinine 0.95, Estim Creat Clear Calc 49.52 L, Est GFR (MDRD) Non-Af 60, BUN/Creatinine Ratio 24.2 H, Glucose 108 H, Calcium 9.1 D/C Instructions Discharge Diet: Low fat / Low cholesterol Weight Bearing Status: Partial weight bearing Call your doctor if you observe: Fever of 101 or Higher, Shortness of breath, Dizziness, Chest painand Uncontrolled pain DC O2, CPAP, BIPAP Needs Home O2 Discharge instructions: No Meaningful Use Info Meaningful Use Meaningful Use Diagnoses (Choose all that apply): None applicable Ischemic Stroke Statin Dosing Therapy Reference: STATIN DOSE THERAPY REFERENCE: * Patients > 75 years receive moderate or high dose statin therapy. * Patients 75 years or YOUNGER should receive HIGH intensity statin dose unless contraindicated. You will be required to document reason for non-treatment if statin daily dose does not meet guidelines. HIGH DOSE STATIN THERAPY DAILY Atorvastatin > than or = to 40 mg Rosuvastatin > than or = to 20 mg Amlodipine + Atorvastatin > than or = to 2.5/40 mg Ezetimibe + Simvastatin 10/80 mg Simvastatin 80mg Discharge Plan Admission Admit Date/Time: 12/06/24 18:45 Primary Reason for Your Visit: left patella fracture, mechanical fall Attending Provider: Donovan Cano Primary Care Provider: Argelia Darby Consulting Providers: -Attn: Danielle Coker,BUDDY [facility]; Sandro Jackman; Michelle Dang; De Snowden; Montse Cabrera Instructions Patient Instructions: ED Patella Fracture Discharge Orders/Prescriptions Prescriptions: New meclizine 25 mg Tablet 25 mg PO TID Qty: 90 2RF acetaminophen [Tylenol] 325 mg tablet 650 mg PO Q6H PRN (Reason: pain) Qty: 30 1RF aspirin 81 mg tablet,delayed release (DR/EC) 81 mg PO BID 14 Days Qty: 28 0RF oxycodone 5 mg Tablet 5 mg PO Q6H PRN PRN (Reason: Pain Score 4-10) 3 Days Qty: 12 0RF sodium chloride 1,000 mg Tablet,Soluble 2,000 mg PO TID 30 Days Qty: 180 0RF Continued Caltrate 600-D Plus Minerals 600 mg calcium- 800 unit-40 mg tablet,chewable 1 tab PO BID cyanocobalamin (vitamin B-12) 1,000 mcg capsule 1,000 mcg PO QMONTH Rx Instructions: pt takes once a month at primary office levocetirizine 5 mg tablet 5 mg PO QDAY sertraline 100 mg tablet 100 mg PO QDAY ipratropium bromide 21 mcg (0.03 %) spray,non-aerosol 2 spray intranasal BID Patient Comments: [NO ORIGINAL SIG] levothyroxine 125 mcg tablet 112 mcg PO QDAY liothyronine 5 mcg tablet 5 mcg PO QDAY atorvastatin 20 mg tablet 20 mg PO DAILY Patient Comments: take 1 tablet by mouth once daily carvedilol 3.125 mg tablet 3.125 mg PO BID olmesartan 40 mg tablet 40 mg PO DAILY Qty: 90 3RF Held aspirin [Adult Aspirin Regimen] 81 mg tablet,delayed release (DR/EC) 81 mg PO DAILY Qty: 90 3RF Hold Instructions: Resume on 12/23/24. hold as she is being put on PO [id number] bid x 2 weeks forDVT prophylaxis. To resume aspirin 81mg daily when she completes the course of PO aspirin 81mg bid x 2 weeks. Discontinued metoprolol tartrate 50 mg tablet 50 mg PO BID Qty: 180 3RF spironolactone 25 mg tablet 25 mg PO DAILY Qty: 90 3RF acetaminophen 500 mg Tablet 1,000 mg PO Q6H PRN PRN (Reason: Pain Score 1-10) Qty: 0 0RF meloxicam 15 mg Tablet 15 mg PO DAILY Qty: 0 0RF sodium chloride 1,000 mg tablet,soluble 1,000 mg PO BID Qty: 60 0RF Patient Comments: take 1 tablet by mouth daily EXCEPT TAKE 2 TABS ON SUNDAY, WEDNESDAYS AND FRIDAYS Referrals / Follow Up: Argelia Darby DO [Primary Care Provider] - Within 1 Week Luis Dozier MD [Med Staff - Active Staff] - Within 1 Week Disposition Disposition (needs filled in before D/C Order can be placed): [facility] Facility Charges/Coding Visit Charges Inpatient E&M: 81097 Disch Hosp >30min 12/11/24 1104 Cosigner Signature (if applicable): CC: Dr. Donovan Cano DO; Dr. Argelia Darby DO~ Signed ADDENDUM by Dr. Donovan Cano DO on 12/11/24 at 1152 Addendum Correction: Will be treating with baby aspirin twice daily for 14 days total andthen resuming home baby aspirin daily on 12/23. 12/11/24 1152 Cosigner Signature (if applicable): cc: Dr. Donovan Cano DO; Dr. Argelia Darby DO ~* Signed [facility]03-20-2025 Consult note [facility] Medical Records Department [address] [place] [address] Counseling Note - Pharmacy 12/11/24 1144 MR#: [id number] Acct: [id number] Name: JERO LEWIS Rep #:[id number] : 1945 79 From: Marisa Najera PCP: Dr. Argelia Darby DO Status:ADM IN Y Location: [place] [address] Pharmacy [place] Med Reconciliation Pharmacy Service has performed discharge medication reconciliation for this patient upon transfer to TCU. The patient's discharge medication list was reviewed for discrepancies and discrepancies were resolved. Medications at Discharge Home Medications atorvastatin 20 mg tablet 20 mg PO DAILY hld 07/28/23 aspirin 81 mg tablet,delayed release (Adult Aspirin Regimen) 81 mg PO DAILY #90 tabs 09/04/23 Held on 12/09/24. Instructions: Resume on 12/23/24. hold as she is being put on PO aspirin 81mg bidx 2 weeks for DVT prophylaxis. To resume aspirin 81mg daily when she completes the course of PO aspirin 81mg bid x 2 weeks. calcium 600 mg-D3 800 unit-mag 40 [id number]-joseph-boron chew tablet (Caltrate 600-D Plus Minerals) 1 tab PO BID 09/04/23 cyanocobalamin (vitamin B-12) 1,000 mcg capsule 1,000 mcg PO QMONTH 09/04/23 olmesartan 40 mg tablet 40 mg PO DAILY see #90 tabs 10/25/23 ipratropium bromide 21 mcg (0.03 %) nasal spray 2 spray intranasal BID 03/11/24 levocetirizine 5 mg tablet 5 mg PO QDAY 03/11/24 sertraline 100 mg tablet 100 mg PO QDAY 03/11/24 levothyroxine 125 mcg tablet 112 mcg PO QDAY 06/10/24 liothyronine 5 mcg tablet 5 mcg PO QDAY 12/04/24 carvedilol 3.125 mg tablet 3.125 mg PO BID 12/06/24 acetaminophen 325 mg tablet (Tylenol) 650 mg (2 x 325 mg) PO Q6H PRN pain #30 tabs 12/09/24 aspirin 81 mg tablet,delayed release 81 mg PO BID 14 days #28 tabs 12/09/24 meclizine 25 mg tablet 25 mg PO TID #90 tabs 12/09/24 oxycodone 5 mg tablet 5 mg PO Q6H PRN PRN Pain Score 4-10 3 days #12 tabs 12/11/24 sodium chloride 1,000 mg soluble tablet 2,000 mg (2 x 1,000 mg) PO TID 30 days #180 tabs 12/11/24 12/11/24 1144 > Date _ Marisa Keen Signature (if applicable): Date CC: ~ Signed [facility]03-20-2025 Discharge summary [facility] Medical Records Department [address] [place] [address] Transfer to [facility] MR#: [id number] Acct: [id number] Name: JERO LEWIS Rep #:[id number] : 1945 79 From: Donovan buchanan DO PCP: Dr. Argelia Darby DO Status:ADM IN Certification of patient admission REQUIRED AT TIME OF ADMISSION. I CERTIFY THAT POST-HOSPITAL ECF SERVICES ARE REQUIRED TO BE GIVEN ON AN IN-PATIENT BASIS BECAUSE OF THE ABOVE NAMED PATIENT'S NEED FOR SKILLED NURSING CARE ON A CONTINUING BASIS FOR THE CONDITION(S) FOR WHICH HE/SHE WAS RECEIVING IN-PATIENT HOSPITAL SERVICES PRIOR TO HIS/HER TRANSFER TO THE [facility]. 12/11/24 1102 Diet Diet Order/Speech Therapy: 12/06/24 20:03 Diet: Regular - General Food consistency:: Regular Liquid Consistency:: Regular/Thin Routine Orders/Code Status Enema Type: Fleetz Enema Frequency: Daily PRN Suppository Type: Dulcolax 10mg Suppository Frequency: Daily PRN Routine Lab Work: BMP (Repeat in 3 to 5 days to monitor sodium level.) Code Status: DNRCC-A (DO NOT INTUBATE) DC O2, CPAP, BIPAP needs Home O2 Discharge instructions: No Wound(s) right forehead: Wound Type: Abrasion lips: Wound Type: Abrasion left knee: Wound Type: Abrasion Therapies Weight Bearing: Partial weight bearing (50% weightbearing in knee immobilizer) Physical Therapy: Eval and Treat Occupational Therapy: Eval and Treat Problem/Diagnosis (1) Elevated troponin: Status: Acute Code(s): R79.89 - Other specified abnormal findings of blood chemistry (2) Syncope: Status: Acute Code(s): R55 - Syncope and collapse (3) Preoperative cardiovascular examination: Status: Acute Code(s): Z01.810 - Encounter for preprocedural cardiovascular examination Plan Patient is an 79-year-old female who presented [facility] ED on 12/06/2024 with leftknee pain after a fall. Hospital course as noted below. Patient discharged to TCU in stable condition on 12/11. 1. Left patella fracture due to mechanical fall with acute on chronic debility ? Orthopedic surgery followed. PT/OT/case management follow-up. Left knee x-ray on admit showed acute patellar fracture. Orthopedics recommended conservative management with 50% weightbearing in kneeimmobilizer. Pain control with Tylenol and oxycodone as needed. DVT prophylaxis with aspirin twice daily for 30 days. Stable for discharge to TCU on 12/11. Will follow-up with orthopedics in the office after discharge from TCU. 2. Hyponatremia ? Nephrology followed. Patient has history of chronic hyponatremia and nephrology has followed her in the past. Sodium abida of 118 on 12/10. Given dose of tolvaptan by nephrology on 12/10, repeat sodium 122 on 12/11. Per nephrology, patient okay for discharge on 12/11. Continue sodium chloride 2 g three times daily, fluid restriction of 1500 mL daily and increased protein/solute intake on discharge.Recommend repeat BMP in 3 to 5 days to ensure sodium level remains stable. 3. Syncope with history of nonsustained V. tach ? Cardiology followed. Has history of recurrent syncope and follows with [facility] in the office. Notably had recent workup that showed V. tach but normal stress test as noted below and cardiology suspected a noncardiacorigin of syncope. Continue meclizine as needed. 4. Elevated troponins ? Suspected secondary to demand ischemia from syncope. Initial troponin 108 andup trended with peakof 184. Cardiology followed as above and recent stress test was negative so no need for further cardiac workup here. 5. Nonsustained V. tach ? Cardiology followed as above. Had Holter monitoring done recently that showednonsustained V. tach, but recent stress test was negative for ischemia and coronary angiogram back in 2019 showed mild nonobstructive CAD. Cardiology suspects noncardiac origin of syncope. Okay to continue home Coreg on discharge. Chronic medical conditions: ? History of nonobstructive CAD, hypertension, hyperlipidemia: Continue home statin, Coreg, and olmesartan. Treating with baby aspirin twice daily for 30 days as noted above, then okay to resume babyaspirin daily. ? Depression: Continue home sertraline. ? Hypothyroidism: Continue home Synthroid and liothyronine. Total clinical time spent by myself addressing the patient's medical issues, reviewing all the data, and collaborating with patient's care team: 35 minutes. Allergies/Procedures Done in Hospital Allergies propoxyphene HCl (From Darvon) Allergy (Verified 12/06/24 16:36) Nausea atorvastatin Adverse Reaction (Intermediate, Verified 12/06/24 16:36) myalgia codeine Adverse Reaction (Intermediate, Verified 12/06/24 16:36) Nausea simvastatin Adverse Reaction (Intermediate, Verified 12/06/24 16:36) Myalgia Procedures: EKG and - (CT brain/C-spine/facial and sinus, knee x-ray, chest x-ray) Type of Care/Length of Stay Estimated LOS: Convalescent Care Less Than 30 days Type of Care Needed: Skilled Rehab Potential: Fair Prognosis: Fair Additional Orders/Day of Discharge H&P will serve as current which was dated: 12/06/24 Day of Discharge: 12/11/24 Dietary and Speech Recommendations Dietitian Recommendations/Changes: Continue regular diet. Will monitor weight trends. Discharge Plan Admission Admit Date/Time: 12/06/24 18:45 Primary Reason for Your Visit: left patella fracture, mechanical fall Attending Provider: Donovan Cano Primary Care Provider: Argelia Darby Consulting Providers: -Attn: BUDDY [facility]; Sandro Jackman; Michelle Dang; De Snowden; Montse Cabrera Instructions Patient Instructions: ED Patella Fracture Discharge Orders/Prescriptions Prescriptions: New meclizine 25 mg Tablet 25 mg PO TID Qty: 90 2RF acetaminophen [Tylenol] 325 mg tablet 650 mg PO Q6H PRN (Reason: pain) Qty: 30 1RF aspirin 81 mg tablet,delayed release (DR/EC) 81 mg PO BID 14 Days Qty: 28 0RF oxycodone 5 mg Tablet 5 mg PO Q6H PRN PRN (Reason: Pain Score 4-10) 3 Days Qty: 12 0RF sodium chloride 1,000 mg Tablet,Soluble 2,000 mg PO TID 30 Days Qty: 180 0RF Continued Caltrate 600-D Plus Minerals 600 mg calcium- 800 unit-40 mg tablet,chewable 1 tab PO BID cyanocobalamin (vitamin B-12) 1,000 mcg capsule 1,000 mcg PO QMONTH Rx Instructions: pt takes once a month at primary office levocetirizine 5 mg tablet 5 mg PO QDAY sertraline 100 mg tablet 100 mg PO QDAY ipratropium bromide 21 mcg (0.03 %) spray,non-aerosol 2 spray intranasal BID Patient Comments: [NO ORIGINAL SIG] levothyroxine 125 mcg tablet 112 mcg PO QDAY liothyronine 5 mcg tablet 5 mcg PO QDAY atorvastatin 20 mg tablet 20 mg PO DAILY Patient Comments: take 1 tablet by mouth once daily carvedilol 3.125 mg tablet 3.125 mg PO BID olmesartan 40 mg tablet 40 mg PO DAILY Qty: 90 3RF Held aspirin [Adult Aspirin Regimen] 81 mg tablet,delayed release (DR/EC) 81 mg PO DAILY Qty: 90 3RF Hold Instructions: Resume on 12/23/24. hold as she is being put on PO [id number] bid x 2 weeks forDVT prophylaxis. To resume aspirin 81mg daily when she completes the course of PO aspirin 81mg bid x 2 weeks. Discontinued metoprolol tartrate 50 mg tablet 50 mg PO BID Qty: 180 3RF spironolactone 25 mg tablet 25 mg PO DAILY Qty: 90 3RF acetaminophen 500 mg Tablet 1,000 mg PO Q6H PRN PRN (Reason: Pain Score 1-10) Qty: 0 0RF meloxicam 15 mg Tablet 15 mg PO DAILY Qty: 0 0RF sodium chloride 1,000 mg tablet,soluble 1,000 mg PO BID Qty: 60 0RF Patient Comments: take 1 tablet by mouth daily EXCEPT TAKE 2 TABS ON SUNDAY, WEDNESDAYS AND FRIDAYS Referrals / Follow Up: Argelia Darby DO [Primary Care Provider] - Within 1 Week Luis Dozier MD [Med Staff - Active Staff] - Within 1 Week Disposition Disposition (needs filled in before D/C Order can be placed): [facility] Facility (2) Syncope Qualifiers: Syncope type: unspecified Qualified Code(s): R55 - Syncope and collapse 12/11/24 1102 Cosigner Signature (if applicable): CC: [facility] - ATTN: DANIELLE COKER; Dr. Sandro Jackman MD; Dr. De Snowden MD; Dr. Argelia Darby DO; Dr. Michelle Dang MD; Dr. Montse Cabrera MD~ [facility]20[facility] Progress note Author [facility] Note Date/Time December 10, 2024 4:3 7pm [facility] Medical Records Department [address] [place] [address] Progress Note 12/10/24 1627 MR#: [id number] Acct: [id number] Name: JERO LEWIS Rep #:[id number] : 1945 79 From: Montse Cabrera MD PCP: Dr. Argelia Darby DO Status:ADM IN Location: [place] [address] Subjective Subjective Patient seen and examined. She had no complaints today. Review of systems otherwise negative. Nephrology consulted. Patient received a dose of tolvaptantoday but repeat BMP this afternoon showed sodium was 118. She has remained hemodynamically stable. Objective Data Objective Data Vital Signs: Vital Signs Temp Pulse Resp BP Pulse Ox O2 Del Method O2 Flow Rate 97.7 F L 70 16 153/63 H 98 Room Air 2 12/10/24 14:42 12/10/24 14:42 12/10/24 14:42 12/10/24 14:42 12/10/24 14:42 12/10/24 14:42 12/10/24 08:55 Oxygen Flow Rate (L/min) 2 Oxygen Delivery Method Room Air Weight: 176 lb 2.389 oz Body Mass Index (BMI) 28.4 Intake & Output: Intake and Output for Last 24 Hours 12/08/24 12/09/24 12/10/24 23:59 23:59 23:59 Intake Total 1500 / 1900 2323.33 / 2323.33 / Output Total 600 / 850 350 / 650 1225 / 1225 Balance 900 / 1050 1973.33 / 1673.33 756.25 / 756.25 Lab / Micro Data 12/10/24 04:59 12/10/24 13:54 Labs: Laboratory Results - last 24 hr 12/09/24 15:05: Serum Osmolality 257 L 12/09/24 18:00: Urine Osmolality 661, Ur Random Sodium 22 12/09/24 22:19: Sodium 118 L* 12/10/24 04:59: WBC 7.3, RBC 4.02 L, Hgb 11.7 L, Hct 34.0 L, MCV 84.6, MCH 29.1,MCHC 34.4, RDW Std Deviation 39.2, RDW Coeff of Alejo 12.8, Plt Count 255, MPV 9.5, Immature Gran % (Auto) 0.400, Neut % (Auto) 76.0 H, Lymph % (Auto) 12.7 L, Meigs % (Auto) 8.1, Eos % (Auto) 2.5, Baso % (Auto) 0.3, Absolute Neuts (auto) 5.5, Absolute Lymphs (auto) 0.92, Nucleated RBC % 0, Sodium 119 L*, Potassium 4.5, Chloride 91 L, Carbon Dioxide 19.4 L, Anion Gap 9, BUN 20 H, Creatinine 0.70, Estim Creat Clear Calc 58.80, Est GFR (MDRD) Non-Af 87, BUN/Creatinine Ratio 29.0 H, Glucose 111 H, Calcium 8.6 12/10/24 13:54: Sodium 118 L*, Potassium 4.4, Chloride 88 L, Carbon Dioxide 18.5L, Anion Gap 12, BUN 19, Creatinine 0.67 L, Estim Creat Clear Calc 58.80, Est GFR (MDRD) Non-Af 88, BUN/Creatinine Ratio 28.0 H, Glucose 110 H, Calcium 8.8 Rhythm Strip Rhythm Strip: Being read as paced. However the patient does not have a pacemaker. Rate: 72 Ectopy: None Physical Exam Const alert, oriented x3 and no apparent distress Constitutional Narrative: pain is well controlled. General Appearance: cooperative HEENT normocephalic and oropharynx normal Eyes PERRL and EOMs intact bilaterally Neck no lymphadenopathy and supple Lymph Lymphatic: no lymphadenopathy noted and no lymphedema noted Resp normal respiratory effort, normal air movement and no retractions Resp Narrative: mildly diminished breath sounds bibasally, no wheezes or crackles. Cardio regular rate, regular rhythm, S1 normal heart sound, S2 normal heart sound and no murmurs GI normal to inspection, nondistended, normoactive bowel sounds, soft to palpation,non-tender and non-distended Extremity normal capillary refill, no clubbing, cyanosis or edema and no calf tenderness Extremity Narrative: left knee in knee brace Skin General Skin Exam: no breakdown Neuro oriented x3 and CN's II-XII intact bilaterally Neuro Narrative: pain in LLE due to fractured left patella is fairly well controlled. . Sensorium / Orientation: alert Motor Exam: general weakness Psych Appearance: appropriate Assessment & Plan Assessment/Plan (1) Elevated troponin: (2) Syncope: QUALIFIERS: Syncope type: unspecified Qualified Code(s): R55 - Syncope and collapse (3) Preoperative cardiovascular examination: PLAN: Plan #Left patella fracture due to mechanical fall * orthopedic surgery on board * Orthopedic surgery recommends conservative management for now with partial weightbearing. * P.o. Tylenol, p.o. oxycodone and IV morphine as needed for pain * Cardiology reviewed patient and recommends no further cardiac workup as she is at low risk of perioperative cardiovascular events from surgery. * #Hyponatremia * sodium was 119 this morning and is 118 after repeating tolvaptan. * Urine sodium was 122. Serum osmolality was low and urine osmolarity was 661. * Nephrology on board. She got a dose of tolvaptan today. * will monitor sodium overnight. Per nephro, to hold off on giving any more IVF. * * #Syncope * patient has had recurrent syncope. * has had holter monitoring which showed nonsustained vtach * followed with [facility] on outpatient basis * cardiology consulted; recommendations as above. * She also had a stress test recently which was negative for any evidence of ischemia. * fall precautions. PT./ OT on board #Elevated troponins: * Likely due to demand ischemia from her syncope. * Initial troponin was 108 and trended up to a peak of 184. * Cardiology reviewed patient and recommended no further workup as she had recently had a stress test which was negative. #Nonsustained ventricular tachycardia * Thought to be the cause of the recurrent syncope. * has had holter monitoring done which showed evidence of nonsustained vtach. * cardiology consulted; per cardiology she had a coronary angiogram in 2019 which showed mild nonobstructive CAD. Recent stress test done was also negative for ischemia. * Cardiology recommends meclizine as they do not think syncope is cardiac in origin. * patient currently on meclizine * #CAD: On aspirin and carvedilol. #Hypothyroidism: On Synthroid and liothyronine #Hypertension: On carvedilol and losartan #Depression: On sertraline DVT prophylaxis: Lovenox Disposition: currently awaiting placement. For DC to TCU once hyponatremia resolves and patient is medically stable. CODE STATUS: DNR CCA no intubation. Charges/Coding Visit Charges Inpatient E&M: 05503 Subs Hosp L2 12/10/24 1637 <Electronically signed by Montse Cabrera MD> Montse Cabrera MD Cosigner Signature (if applicable): CC: ~ Signed [facility] Work Phone: 1(887) 397-332803-19-2025 Progress note [facility] Medical Records Department [address] [place] [address] Progress Note 12/10/24 1627 MR#: [id number] Acct: [id number] Name: JERO LEWIS Rep #:[id number] : 1945 79 From: Montse Cabrera MD PCP: Dr. Argelia Darby, DO Status:ADM IN Location: [place] [address] Subjective Subjective Patient seen and examined. She had no complaints today. Review of systems otherwise negative. Nephrology consulted. Patient received a dose of tolvaptantoday but repeat BMP this afternoon showed sodium was 118. She has remained hemodynamically stable. Objective Data Objective Data Vital Signs: Vital Signs Temp Pulse Resp BP Pulse Ox O2 Del Method O2 Flow Rate 97.7 F L 70 16 153/63 H 98 Room Air 2 12/10/24 14:42 12/10/24 14:42 12/10/24 14:42 12/10/24 14:42 12/10/24 14:42 12/10/24 14:42 12/10/24 08:55 Oxygen Flow Rate (L/min) 2 Oxygen Delivery Method Room Air Weight: 176 lb 2.389 oz Body Mass Index (BMI) 28.4 Intake & Output: Intake and Output for Last 24 Hours 12/08/24 12/09/24 12/10/24 23:59 23:59 23:59 Intake Total 1500 / 1900 2323.33 / 2323.33 / Output Total 600 / 850 350 / 650 1225 / 1225 Balance 900 / 1050 1973.33 / 1673.33 756.25 / 756.25 Lab / Micro Data 12/10/24 04:59 12/10/24 13:54 Labs: Laboratory Results - last 24 hr 12/09/24 15:05: Serum Osmolality 257 L 12/09/24 18:00: Urine Osmolality 661, Ur Random Sodium 22 12/09/24 22:19: Sodium 118 L* 12/10/24 04:59: WBC 7.3, RBC 4.02 L, Hgb 11.7 L, Hct 34.0 L, MCV 84.6, MCH 29.1,MCHC 34.4, RDW Std Deviation 39.2, RDW Coeff of Alejo 12.8, Plt Count 255, MPV 9.5, Immature Gran % (Auto) 0.400, Neut % (Auto) 76.0 H, Lymph % (Auto) 12.7 L, Meigs % (Auto) 8.1, Eos % (Auto) 2.5, Baso % (Auto) 0.3, Absolute Neuts (auto) 5.5, Absolute Lymphs (auto) 0.92, Nucleated RBC % 0, Sodium 119 L*, Potassium 4.5, Chloride 91 L, Carbon Dioxide 19.4 L, Anion Gap 9, BUN 20 H, Creatinine 0.70, Estim Creat Clear Calc 58.80, Est GFR (MDRD) Non-Af 87, BUN/Creatinine Ratio 29.0 H, Glucose 111 H, Calcium 8.6 12/10/24 13:54: Sodium 118 L*, Potassium 4.4, Chloride 88 L, Carbon Dioxide 18.5L, Anion Gap 12, BUN 19, Creatinine 0.67 L, Estim Creat Clear Calc 58.80, Est GFR (MDRD) Non-Af 88, BUN/Creatinine Ratio 28.0 H, Glucose 110 H, Calcium 8.8 Rhythm Strip Rhythm Strip: Being read as paced. However the patient does not have a pacemaker. Rate: 72 Ectopy: None Physical Exam Const alert, oriented x3 and no apparent distress Constitutional Narrative: pain is well controlled. General Appearance: cooperative HEENT normocephalic and oropharynx normal Eyes PERRL and EOMs intact bilaterally Neck no lymphadenopathy and supple Lymph Lymphatic: no lymphadenopathy noted and no lymphedema noted Resp normal respiratory effort, normal air movement and no retractions Resp Narrative: mildly diminished breath sounds bibasally, no wheezes or crackles. Cardio regular rate, regular rhythm, S1 normal heart sound, S2 normal heart sound and no murmurs GI normal to inspection, nondistended, normoactive bowel sounds, soft to palpation,non-tender and non-distended Extremity normal capillary refill, no clubbing, cyanosis or edema and no calf tenderness Extremity Narrative: left knee in knee brace Skin General Skin Exam: no breakdown Neuro oriented x3 and CN's II-XII intact bilaterally Neuro Narrative: pain in LLE due to fractured left patella is fairly well controlled. . Sensorium / Orientation: alert Motor Exam: general weakness Psych Appearance: appropriate Assessment & Plan Assessment/Plan (1) Elevated troponin: (2) Syncope: QUALIFIERS: Syncope type: unspecified Qualified Code(s): R55 - Syncope and collapse (3) Preoperative cardiovascular examination: PLAN: Plan #Left patella fracture due to mechanical fall * orthopedic surgery on board * Orthopedic surgery recommends conservative management for now with partial weightbearing. * P.o. Tylenol, p.o. oxycodone and IV morphine as needed for pain * Cardiology reviewed patient and recommends no further cardiac workup as she is at low risk of perioperative cardiovascular events from surgery. * #Hyponatremia * sodium was 119 this morning and is 118 after repeating tolvaptan. * Urine sodium was 122. Serum osmolality was low and urine osmolarity was 661. * Nephrology on board. She got a dose of tolvaptan today. * will monitor sodium overnight. Per nephro, to hold off on giving any more IVF. * * #Syncope * patient has had recurrent syncope. * has had holter monitoring which showed nonsustained vtach * followed with [facility] on outpatient basis * cardiology consulted; recommendations as above. * She also had a stress test recently which was negative for any evidence of ischemia. * fall precautions. PT./ OT on board #Elevated troponins: * Likely due to demand ischemia from her syncope. * Initial troponin was 108 and trended up to a peak of 184. * Cardiology reviewed patient and recommended no further workup as she had recently had a stress test which was negative. #Nonsustained ventricular tachycardia * Thought to be the cause of the recurrent syncope. * has had holter monitoring done which showed evidence of nonsustained vtach. * cardiology consulted; per cardiology she had a coronary angiogram in 2019 which showed mild nonobstructive CAD. Recent stress test done was also negative for ischemia. * Cardiology recommends meclizine as they do not think syncope is cardiac in origin. * patient currently on meclizine * #CAD: On aspirin and carvedilol. #Hypothyroidism: On Synthroid and liothyronine #Hypertension: On carvedilol and losartan #Depression: On sertraline DVT prophylaxis: Lovenox Disposition: currently awaiting placement. For DC to TCU once hyponatremia resolves and patient is medically stable. CODE STATUS: DNR CCA no intubation. Charges/Coding Visit Charges Inpatient E&M: 20728 Subs Hosp L2 12/10/24 7247 Montse Cabrera MD Cosigner Signature (if applicable): CC: ~ Signed [facility]03-19-2025 Progress note Author Madhavi Pate [facility] Note Date/Time December 10, 2024 12: 42am [facility] Medical Records Department [address] [place] [address] Progress Note - Hospitalist 12/10/2440 MR#: [id number] Acct: [id number] Name: JERO LEWIS Rep #:[id number] : 1945 79 From: Madhavi Pate MD PCP: Dr. Argelia Darby, DO Status:ADM IN Location: [place] [address] Hospitalist Note Called with repeat labs with sodium unchanged at 118. Patient has previously had hyponatremia with evaluation for nephrology in the past. In the past she had also been on a diuretic which had since been discontinued. Sodium urine random 22, urine osmolality 661, serum osmolality 257. Patient is currently being judiciously hydrated as some concern for hypovolemia as etiology. Nephrology is already been consulted and evaluation is pending. Given unchangedlabs and these current workup labs will initiate 1000 mg p.o. twice daily salt tablets but will defer of course to nephrology for change. Continue BMP trending 03/19/25 0042 <Electronically signed by Madhavi Pate MD> Cosigner Signature (if applicable): CC: ~ Signed [facility] Work Phone: 1(436) 486-217403-19-2025 Progress note [facility] Medical Records Department [address] [place] [address] Progress Note - Hospitalist 12/10/24 004 MR#: [id number] Acct: [id number] Name: JERO LEWIS Rep #:[id number] : 1945 79 From: Madhavi Pate MD PCP: Dr. Argelia Darby, DO Status:ADM IN Location: [place] [address] Hospitalist Note Called with repeat labs with sodium unchanged at 118. Patient has previously had hyponatremia with evaluation for nephrology in the past. In the past she had also been on a diuretic which had since been discontinued. Sodium urine random 22, urine osmolality 661, serum osmolality 257. Patient is currently being judiciously hydrated as some concern for hypovolemia as etiology. Nephrology is alreadybeen consulted and evaluation is pending. Given unchangedlabs and these current workup labs will initiate 1000 mg p.o. twice daily salt tablets but will defer of course to nephrology for change. Continue BMP trending 12/10/2441 Cosigner Signature (if applicable): CC: ~ Signed [facility]03-18-2025 Progress note Author Montse Cabrera [facility] Note Date/Time December 09, 2024 6:5 7pm [facility] Medical Records Department [address] [place] [address] Progress Note 12/09/24 1854 MR#: [id number] Acct: [id number] Name: JERO LEWIS Rep #:[id number] : 1945 79 From: Montse Cabrera MD PCP: Dr. Argelia Darby, DO Status:ADM IN Location: [place] [address] Subjective Subjective Patient seen and examined. She had no active complaints. Plan was to discharge today, but BMP came back with sodium of 118. Discharge therefore canceled. Review of systems is otherwise negative. Objective Data Objective Data Vital Signs: Vital Signs Temp Pulse Resp BP Pulse Ox O2 Del Method O2 Flow Rate 97.8 F 69 18 147/59 H 95 Room Air 2 12/09/24 15:00 12/09/24 15:00 12/09/24 15:00 12/09/24 15:00 12/09/24 15:00 12/09/24 15:00 12/09/24 04:00 Oxygen Flow Rate (L/min) 2 Oxygen Delivery Method Room Air Weight: 176 lb 2.389 oz Body Mass Index (BMI) 28.4 Intake & Output: Intake and Output for Last 24 Hours 12/07/24 12/08/24 12/09/24 23:59 23:59 23:59 Intake Total 400 / 900 1500 / 1900 2323.33 / 2323.33 Output Total 300 / 400 600 / 850 350 / 350 Balance 100 / 500 900 / 1050 1973.33 / 1972.33 Lab / Micro Data 12/08/24 08:25 12/09/24 15:05 Labs: Laboratory Results - last 24 hr 12/09/24 15:05: Sodium 118 L*, Potassium 4.4, Chloride 89 L, Carbon Dioxide 21.0, Anion Gap 8, BUN 22 H, Creatinine 0.75, Estim Creat Clear Calc 58.80, Est GFR (MDRD) Non-Af 80, BUN/Creatinine Ratio 30.0 H, Glucose 105 H, Calcium 8.8 Rhythm Strip Rhythm Strip: Being read as paced. However the patient does not have a pacemaker. Rate: 72 Ectopy: None Physical Exam Const alert, oriented x3 and no apparent distress Constitutional Narrative: pain is well controlled. General Appearance: cooperative HEENT normocephalic and oropharynx normal Eyes PERRL and EOMs intact bilaterally Neck no lymphadenopathy and supple Lymph Lymphatic: no lymphadenopathy noted and no lymphedema noted Resp Resp Narrative: mildly diminished breath sounds bibasally, no wheezes or crackles. Cardio regular rate, regular rhythm, S1 normal heart sound, S2 normal heart sound and no murmurs GI normal to inspection, nondistended, normoactive bowel sounds, soft to palpation,non-tender and non-distended Extremity normal capillary refill, no clubbing, cyanosis or edema and no calf tenderness Extremity Narrative: left knee in knee brace Skin General Skin Exam: no breakdown Neuro oriented x3 and CN's II-XII intact bilaterally Neuro Narrative: pain with moving LLE due to fractured left patella. Sensorium / Orientation: alert Motor Exam: general weakness Psych Appearance: appropriate Assessment & Plan Assessment/Plan (1) Elevated troponin: (2) Syncope: QUALIFIERS: Syncope type: unspecified Qualified Code(s): R55 - Syncope and collapse (3) Preoperative cardiovascular examination: PLAN: Plan #Left patella fracture due to mechanical fall * orthopedic surgery on board * Orthopedic surgery recommends conservative management for now with partial weightbearing. * P.o. Tylenol, p.o. oxycodone and IV morphine as needed for pain * Cardiology reviewed patient and recommends no further cardiac workup as she is at low risk of perioperative cardiovascular events from surgery. #Syncope * patient has had recurrent syncope. * has had holter monitoring which showed nonsustained vtach * followed with [facility] on outpatient basis * cardiology consulted; recommendations as above. * She also had a stress test recently which was negative for any evidence of ischemia. * fall precautions. PT./ OT on board #Elevated troponins: * Likely due to demand ischemia from her syncope. * Initial troponin was 108 and trended up to a peak of 184. * Cardiology reviewed patient and recommended no further workup as she had recently had a stress test which was negative. #Nonsustained ventricular tachycardia * Thought to be the cause of the recurrent syncope. * has had holter monitoring done which showed evidence of nonsustained vtach. * cardiology consulted; per cardiology she had a coronary angiogram in 2019 which showed mild nonobstructive CAD. Recent stress test done was also negative for ischemia. * Cardiology recommends meclizine as they do not think syncope is cardiac in origin. * patient currently on meclizine * #Hyponatremia * sodium was 125 yesterday andis now down to 118. * Being hydrated with IVF NS @ 125cc/hr. Will check urine sodium, serum osmolarity and urine osmolarity * nephrology also consulted * #CAD: On aspirin and carvedilol. #Hypothyroidism: On Synthroid and liothyronine #Hypertension: On carvedilol and losartan #Depression: On sertraline DVT prophylaxis: Lovenox Disposition: currently awaiting placement. For DC to TCU once hyponatremia resolves and patient is medically stable. CODE STATUS: DNR CCA no intubation. Charges/Coding Visit Charges Inpatient E&M: 10713 Subs Hosp L2 12/09/24 1857 <Electronically signed by Montse Cabrera MD> Montse Cabrera MD Cosigner Signature (if applicable): CC: ~ Signed [facility] Work Phone: 1(126) 350-995103-18-2025 Progress note [facility] Medical Records Department [address] [place] [address] Progress Note 12/09/24 1854 MR#: [id number] Acct: [id number] Name: JERO LEWIS Rep #:[id number] : 1945 79 From: Montse Cabrera MD PCP: Dr. Argelia Darby, DO Status:ADM IN Location: [place] [address] Subjective Subjective Patient seen and examined. She had no active complaints. Plan was to discharge today, but BMP came back with sodium of 118. Discharge therefore canceled. Review of systems is otherwise negative. Objective Data Objective Data Vital Signs: Vital Signs Temp Pulse Resp BP Pulse Ox O2 Del Method O2 Flow Rate 97.8 F 69 18 147/59 H 95 Room Air 2 12/09/24 15:00 12/09/24 15:00 12/09/24 15:00 12/09/24 15:00 12/09/24 15:00 12/09/24 15:00 12/09/24 04:00 Oxygen Flow Rate (L/min) 2 Oxygen Delivery Method Room Air Weight: 176 lb 2.389 oz Body Mass Index (BMI) 28.4 Intake & Output: Intake and Output for Last 24 Hours 12/07/24 12/08/24 12/09/24 23:59 23:59 23:59 Intake Total 400 / 900 1500 / 1900 2323.33 / 2323.33 Output Total 300 / 400 600 / 850 350 / 350 Balance 100 / 500 900 / 1050 1973.33 / 1973.33 Lab / Micro Data 12/08/24 08:25 12/09/24 15:05 Labs: Laboratory Results - last 24 hr 12/09/24 15:05: Sodium 118 L*, Potassium 4.4, Chloride 89 L, Carbon Dioxide 21.0, Anion Gap 8, BUN 22 H, Creatinine 0.75, Estim Creat Clear Calc 58.80, Est GFR (MDRD) Non-Af 80, BUN/Creatinine Ratio 30.0 H, Glucose 105 H, Calcium 8.8 Rhythm Strip Rhythm Strip: Being read as paced. However the patient does not have a pacemaker. Rate: 72 Ectopy: None Physical Exam Const alert, oriented x3 and no apparent distress Constitutional Narrative: pain is well controlled. General Appearance: cooperative HEENT normocephalic and oropharynx normal Eyes PERRL and EOMs intact bilaterally Neck no lymphadenopathy and supple Lymph Lymphatic: no lymphadenopathy noted and no lymphedema noted Resp Resp Narrative: mildly diminished breath sounds bibasally, no wheezes or crackles. Cardio regular rate, regular rhythm, S1 normal heart sound, S2 normal heart sound and no murmurs GI normal to inspection, nondistended, normoactive bowel sounds, soft to palpation,non-tender and non-distended Extremity normal capillary refill, no clubbing, cyanosis or edema and no calf tenderness Extremity Narrative: left knee in knee brace Skin General Skin Exam: no breakdown Neuro oriented x3 and CN's II-XII intact bilaterally Neuro Narrative: pain with moving LLE due to fractured left patella. Sensorium / Orientation: alert Motor Exam: general weakness Psych Appearance: appropriate Assessment & Plan Assessment/Plan (1) Elevated troponin: (2) Syncope: QUALIFIERS: Syncope type: unspecified Qualified Code(s): R55 - Syncope and collapse (3) Preoperative cardiovascular examination: PLAN: Plan #Left patella fracture due to mechanical fall * orthopedic surgery on board * Orthopedic surgery recommends conservative management for now with partial weightbearing. * P.o. Tylenol, p.o. oxycodone and IV morphine as needed for pain * Cardiology reviewed patient and recommends no further cardiac workup as she is at low risk of perioperative cardiovascular events from surgery. #Syncope * patient has had recurrent syncope. * has had holter monitoring which showed nonsustained vtach * followed with [facility] on outpatient basis * cardiology consulted; recommendations as above. * She also had a stress test recently which was negative for any evidence of ischemia. * fall precautions. PT./ OT on board #Elevated troponins: * Likely due to demand ischemia from her syncope. * Initial troponin was 108 and trended up to a peak of 184. * Cardiology reviewed patient and recommended no further workup as she had recently had a stress test which was negative. #Nonsustained ventricular tachycardia * Thought to be the cause of the recurrent syncope. * has had holter monitoring done which showed evidence of nonsustained vtach. * cardiology consulted; per cardiology she had a coronary angiogram in 2019 which showed mild nonobstructive CAD. Recent stress test done was also negative for ischemia. * Cardiology recommends meclizine as they do not think syncope is cardiac in origin. * patient currently on meclizine * #Hyponatremia * sodium was 125 yesterday andis now down to 118. * Being hydrated with IVF NS @ 125cc/hr. Will check urine sodium, serum osmolarity and urine osmolarity * nephrology also consulted * #CAD: On aspirin and carvedilol. #Hypothyroidism: On Synthroid and liothyronine #Hypertension: On carvedilol and losartan #Depression: On sertraline DVT prophylaxis: Lovenox Disposition: currently awaiting placement. For DC to TCU once hyponatremia resolves and patient is medically stable. CODE STATUS: DNR CCA no intubation. Charges/Coding Visit Charges Inpatient E&M: 18037 Subs Hosp L2 12/09/24 4060 Montse Cabrera MD Cosigner Signature (if applicable): CC: ~ Signed [facility]03-18-2025 Consult note Author Shawna Carranza [facility] Note Date/Time December 09, 2024 4:1 8pm [facility] Medical Records Department [address] [place] [address] Counseling Note - Pharmacy 12/09/24 1618 MR#: [id number] Acct: [id number] Name: JERO LEWIS Rep #:[id number] : 1945 79 From: Shawna Carranza PCP: Dr. Argelia Darby, DO Status:ADM IN Y Location: [place] [id number] [place] Med Reconciliation Pharmacy Service has performed discharge medication reconciliation for this patient. The patient's discharge medication list was reviewed for discrepancies and discrepancies were resolved. Medications at Discharge Home Medications atorvastatin 20 mg tablet 20 mg PO DAILY hld 07/28/23 sodium chloride 1,000 mg soluble tablet 1,000 mg PO BID supplement #60 tabs 07/31/23 acetaminophen 500 mg tablet 1,000 mg (2 x 500 mg) PO Q6H PRN PRN Pain Score 1- 10#0 tabs 08/08/23 aspirin 81 mg tablet,delayed release (Adult Aspirin Regimen) 81 mg PO DAILY #90 tabs 09/04/23 Held on 12/09/24. Instructions: Resume on 12/23/24. hold as she is being put on PO aspirin 81mg bid x 2 weeks for DVT prophylaxis. To resume aspirin 81mg daily when she completes the course of PO aspirin 81mg bid x 2 weeks. calcium 600 mg-D3 800 unit-mag 40 tv-kloy-djcz-joseph-boron chew tablet (Caltrate 600-D Plus Minerals) 1 tab PO BID 09/04/23 cyanocobalamin (vitamin B-12) 1,000 mcg capsule 1,000 mcg PO QMONTH 09/04/23 olmesartan 40 mg tablet 40 mg PO DAILY see #90 tabs 10/25/23 ipratropium bromide 21 mcg (0.03 %) nasal spray 2 spray intranasal BID 03/11/24 levocetirizine 5 mg tablet 5 mg PO QDAY 03/11/24 sertraline 100 mg tablet 100 mg PO QDAY 03/11/24 levothyroxine 125 mcg tablet 112 mcg PO QDAY 06/10/24 liothyronine 5 mcg tablet 5 mcg PO QDAY 12/04/24 metoprolol tartrate 50 mg tablet 50 mg PO BID #180 tabs 12/04/24 spironolactone 25 mg tablet 25 mg PO DAILY #90 tabs 12/04/24 carvedilol 3.125 mg tablet 3.125 mg PO BID 12/06/24 acetaminophen 325 mg tablet (Tylenol) 650 mg (2 x 325 mg) PO Q6H PRN pain #30 tabs 12/09/24 aspirin 81 mg tablet,delayed release 81 mg PO BID 14 days #28 tabs 12/09/24 meclizine 25 mg tablet 25 mg PO TID #90 tabs 12/09/24 12/09/24 1618 <Electronically signed by Shawna Carranza> Date _ Shawna Carranza Cosigner Signature (if applicable): Date CC: ~ Signed [facility] Work Phone: 1(431) 402-831203-18-2025 Consult note [facility] Medical Records Department [address] [place] [address] Counseling Note - Pharmacy 12/09/24 1618 MR#: [id number] Acct: [id number] Name: JERO LEWIS Rep #:[id number] : 1945 79 From: Shawna Carranza PCP: Dr. Argelia Darby, DO Status:ADM IN Y Location: [place] [address] Pharmacy [place] Med Reconciliation Pharmacy Service has performed discharge medication reconciliation for this patient. The patient's discharge medication list was reviewed for discrepancies and discrepancies were resolved. Medications at Discharge Home Medications atorvastatin 20 mg tablet 20 mg PO DAILY hld 07/28/23 sodium chloride 1,000 mg soluble tablet 1,000 mg PO BID supplement #60 tabs 07/31/23 acetaminophen 500 mg tablet 1,000 mg (2 x 500 mg) PO Q6H PRN PRN Pain Score 1- 10#0 tabs 08/08/23 aspirin 81 mg tablet,delayed release (Adult Aspirin Regimen) 81 mg PO DAILY #90 tabs 09/04/23 Held on 12/09/24. Instructions: Resume on 12/23/24. hold as she is being put on PO aspirin 81mg bidx 2 weeks for DVT prophylaxis. To resume aspirin 81mg daily when she completes the course of PO aspirin 81mg bid x 2 weeks. calcium 600 mg-D3 800 unit-mag 40 pg-whuy-sywb-joseph-boron chew tablet (Caltrate 600-D Plus Minerals) 1 tab PO BID 09/04/23 cyanocobalamin (vitamin B-12) 1,000 mcg capsule 1,000 mcg PO QMONTH 09/04/23 olmesartan 40 mg tablet 40 mg PO DAILY see #90 tabs 10/25/23 ipratropium bromide 21 mcg (0.03 %) nasal spray 2 spray intranasal BID 03/11/24 levocetirizine 5 mg tablet 5 mg PO QDAY 03/11/24 sertraline 100 mg tablet 100 mg PO QDAY 06/18/24 levothyroxine 125 mcg tablet 112 mcg PO QDAY 06/10/24 liothyronine 5 mcg tablet 5 mcg PO QDAY 12/04/24 metoprolol tartrate 50 mg tablet 50 mg PO BID #180 tabs 12/04/24 spironolactone 25 mg tablet 25 mg PO DAILY #90 tabs 12/04/24 carvedilol 3.125 mg tablet 3.125 mg PO BID 12/06/24 acetaminophen 325 mg tablet (Tylenol) 650 mg (2 x 325 mg) PO Q6H PRN pain #30 tabs 12/09/24 aspirin 81 mg tablet,delayed release 81 mg PO BID 14 days #28 tabs 12/09/24 meclizine 25 mg tablet 25 mg PO TID #90 tabs 12/09/24 12/09/24 1618 Date _ Shawna Keen Signature (if applicable): Date CC: ~ Signed [facility]03-18-2025 Discharge summary Author Montse [facility] Note Date/Time December 09, 2024 2:1 8pm [facility] Medical Records Department [address] [place] [address] Discharge Summary 12/09/24 1317 MR#: [id number] Acct: [id number] Name: JERO LEWIS Rep #:[id number] : 1945 79 From: Montse Cabrera MD PCP: Dr. Argelia Darby DO Status:ADM IN [facility] Date of Admission: 12/06/24 Date of Discharge: 12/09/24 Primary Care Physician: Dr. Argelia Darby, DO Consultations 12/06/24 20:03 Consult: Orthopedics Routine Consulting Provider: -Attn: [facility] Reason for Consult: Patellar Fracture EMERGENT Consult: Yes MD Notified: Yes Date Notified: 12/06/24 Time Notified: 18:50 Method of Notification: ED Physician Initiated 12/06/24 22:09 Consult: Cardiology Routine Consulting Provider: Michelle Dang Reason for Consult: elevated troponins EMERGENT Consult: No Notified: Yes Date Notified: 12/07/24 Time Notified: 07:29 Method of Notification: Text Reason For Visit: SYNCOPE Diagnosis Discharge Diagnosis (1) Elevated troponin: Status: Acute Code(s): R79.89 - Other specified abnormal findings of blood chemistry (2) Syncope: Status: Acute Code(s): R55 - Syncope and collapse Qualifiers: Syncope type: unspecified Qualified Code(s): R55 - Syncope and collapse (3) Preoperative cardiovascular examination: Status: Acute Code(s): Z01.810 - Encounter for preprocedural cardiovascular examination Plan #Left patella fracture due to mechanical fall * orthopedic surgery on board * Orthopedic surgery recommends conservative management for now with partial weightbearing. * P.o. Tylenol, p.o. oxycodone and IV morphine as needed for pain * Cardiology reviewed patient and recommends no further cardiac workup as she is at low risk of perioperative cardiovascular events from surgery. #Syncope * patient has had recurrent syncope. * has had holter monitoring which showed nonsustained vtach * followed with [facility] on outpatient basis * cardiology consulted; recommendations as above. * She also had a stress test recently which was negative for any evidence of ischemia. * fall precautions. PT./ OT on board #Elevated troponins: * Likely due to demand ischemia from her syncope. * Initial troponin was 108 and trended up to a peak of 184. * Cardiology reviewed patient and recommended no further workup as she had recently had a stress test which was negative. #Nonsustained ventricular tachycardia * Thought to be the cause of the recurrent syncope. * has had holter monitoring done which showed evidence of nonsustained vtach. * cardiology consulted; per cardiology she had a coronary angiogram in 2019 which showed mild nonobstructive CAD. Recent stress test done was also negative for ischemia. * Cardiology recommends meclizine as they do not think syncope is cardiac in origin. * patient currently on meclizine * #CAD: On aspirin and carvedilol. #Hypothyroidism: On Synthroid and liothyronine #Hypertension: On carvedilol and losartan #Depression: On sertraline DVT prophylaxis: Lovenox Disposition: currently awaiting placement. CODE STATUS: DNR CCA no intubation. Medications at Discharge Home Medications atorvastatin 20 mg tablet 20 mg PO DAILY hld 07/28/23 sodium chloride 1,000 mg soluble tablet 1,000 mg PO BID supplement #60 tabs 07/31/23 acetaminophen 500 mg tablet 1,000 mg (2 x 500 mg) PO Q6H PRN PRN Pain Score 1- 10#0 tabs 08/08/23 aspirin 81 mg tablet,delayed release (Adult Aspirin Regimen) 81 mg PO DAILY #90 tabs 09/04/23 Held on 12/09/24. Instructions: Resume on 12/23/24. hold as she is being put on PO aspirin 81mg bid x 2 weeks for DVT prophylaxis. To resume aspirin 81mg daily when she completes the course of PO aspirin 81mg bid x 2 weeks. calcium 600 mg-D3 800 unit-mag 40 ma-layw-octu-joseph-boron chew tablet (Caltrate 600-D Plus Minerals) 1 tab PO BID 09/04/23 cyanocobalamin (vitamin B-12) 1,000 mcg capsule 1,000 mcg PO QMONTH 09/04/23 olmesartan 40 mg tablet 40 mg PO DAILY see #90 tabs 10/25/23 ipratropium bromide 21 mcg (0.03 %) nasal spray 2 spray intranasal BID 03/11/24 levocetirizine 5 mg tablet 5 mg PO QDAY 03/11/24 sertraline 100 mg tablet 100 mg PO QDAY 03/11/24 levothyroxine 125 mcg tablet 112 mcg PO QDAY 06/10/24 liothyronine 5 mcg tablet 5 mcg PO QDAY 12/04/24 metoprolol tartrate 50 mg tablet 50 mg PO BID #180 tabs 12/04/24 spironolactone 25 mg tablet 25 mg PO DAILY #90 tabs 12/04/24 carvedilol 3.125 mg tablet 3.125 mg PO BID 12/06/24 acetaminophen 325 mg tablet (Tylenol) 650 mg (2 x 325 mg) PO Q6H PRN pain #30 tabs 12/09/24 aspirin 81 mg tablet,delayed release 81 mg PO BID 14 days #28 tabs 03/18/25 meclizine 25 mg tablet 25 mg PO TID #90 tabs 12/09/24 Hospital Course Operations None Procedures None Summary of Care Provided Minutes Spent on Discharge: 47 Hospital Course: Patient is an 79 y/o F with a PMh as outlined who was admitted via the ED on 12/09/2024 with a complaint of mechanical fall whilst picking up groceries. She had a blackout and when she woke up she had blood all over her face. Patient had apparently had recurrent episodes of syncope and lightheadedness and not being worked up by cardiology. She had undergone extensive evaluation with Holter monitoring which showed some evidence of nonsustained VT, pharmacologicalstress test which showed no evidence of ischemia. She was also scheduled to follow-up with neurology on outpatient basis. On admission vitals were essentially stable. Initial troponin was mildly elevated at 108. X-ray showed acute fracture of the patella body with joint effusion. Cardiology was consultedfor pre op cardiac risk stratification. Cardiology evaluated patient and recommended that she did not need any further workup prior to surgery. Orthopedic surgery was consulted and recommended no surgical intervention for now. Patient was to be partial weightbearing on the left lower extremity. She did work with physical therapy and was deemed as needing skilled evaluation. She was discharged to nursing home facility on 12/09/2024. She is follow-up with her primary care doctor within 1 to 2 weeks. She is also to follow up with orthopedic surgery within 1-2 weeks for evaluation. Due to her history of frequent falls and syncope, and therefore increased risk of bleed, patient was not discharged on any anticoagulant for DVT prophylaxis. She was discharged on p.o. aspirin 81 mg twice daily for 2 weeks. She is follow-up with her primary care doctor and orthopedic surgery as stated. Patient seen and examined prior to discharge. She had no complaints and felt well. Review of systems otherwise negative. Labs and vitals reviewed. Medication reviewed and reconciled. Physical Exam Const alert, oriented x3 and no apparent distress General Appearance: cooperative HEENT normocephalic and oropharynx normal Eyes PERRL and EOMs intact bilaterally Neck no lymphadenopathy and supple Lymph Lymphatic: no lymphadenopathy noted and no lymphedema noted Resp normal respiratory effort, normal air movement and no retractions Cardio regular rate, regular rhythm, S1 normal heart sound, S2 normal heart sound and no murmurs Cardio Narrative: Tachycardia present GI normal to inspection, nondistended, normoactive bowel sounds, soft to palpation,non-tender and non-distended Extremity normal capillary refill, no clubbing, cyanosis or edema and no calf tenderness Extremity Narrative: left knee in knee brace Skin General Skin Exam: no breakdown Neuro oriented x3 and CN's II-XII intact bilaterally Neuro Narrative: pain with moving LLE due to fractured left patella. Sensorium / Orientation: alert Motor Exam: general weakness Psych Appearance: appropriate Weight / BMI Weight Weight: 176 lb 2.389 oz Body Mass Index (BMI) 28.4 ABG / Lab / Microbiology Data 12/08/24 08:25 12/08/24 08:25 Laboratory: Laboratory Results - last 24 hr 12/08/24 08:25: Sodium 125 L, Potassium 3.8, Chloride 94 L, Carbon Dioxide 22.7,Anion Gap 9, BUN 26 H, Creatinine 0.84, Estim Creat Clear Calc 56.00, Est GFR (MDRD) Non-Af 70, BUN/Creatinine Ratio 30.4 H, Glucose 134 H, Calcium 9.0 D/C Instructions Discharge Diet: Low fat / Low cholesterol Discharge Activity: Use Walker (partial weight bearing) and - Weight Bearing Status: Partial weight bearing Call your doctor if you observe: Fever of 101 or Higher, Shortness of breath, Dizziness, Chest pain and Uncontrolled pain DC O2, CPAP, BIPAP Needs Home O2 Discharge instructions: No DC home with Oxygen: No Meaningful Use Info Meaningful Use Meaningful Use Diagnoses (Choose all that apply): None applicable Ischemic Stroke Statin Dosing Therapy Reference: STATIN DOSE THERAPY REFERENCE: * Patients > 75 years receive moderate or high dose statin therapy. * Patients 75 years or YOUNGER should receive HIGH intensity statin dose unless contraindicated. You will be required to document reason for non-treatment if statin daily dose does not meet guidelines. HIGH DOSE STATIN THERAPY DAILY Atorvastatin > than or = to 40 mg Rosuvastatin > than or = to 20 mg Amlodipine + Atorvastatin > than or = to 2.5/40 mg Ezetimibe + Simvastatin 10/80 mg Simvastatin 80mg Discharge Plan Admission Admit Date/Time: 12/06/24 18:45 Primary Reason for Your Visit: left patella fracture, mechanical fall Attending Provider: Montse Cabrera Primary Care Provider: Argelia Darby Consulting Providers: -Attn: [facility]; Sandro Jackman; Michelle Dang Instructions Patient Instructions: ED Patella Fracture Discharge Orders/Prescriptions Prescriptions: New meclizine 25 mg Tablet 25 mg PO TID Qty: 90 2RF acetaminophen [Tylenol] 325 mg tablet 650 mg PO Q6H PRN (Reason: pain) Qty: 30 1RF aspirin 81 mg tablet,delayed release (DR/EC) 81 mg PO BID 14 Days Qty: 28 0RF Continued Caltrate 600-D Plus Minerals 600 mg calcium- 800 unit-40 mg tablet,chewable 1 tab PO BID cyanocobalamin (vitamin B-12) 1,000 mcg capsule 1,000 mcg PO QMONTH Rx Instructions: pt takes once a month at primary office levocetirizine 5 mg tablet 5 mg PO QDAY sertraline 100 mg tablet 100 mg PO QDAY ipratropium bromide 21 mcg (0.03 %) spray,non-aerosol 2 spray intranasal BID Patient Comments: [NO ORIGINAL SIG] levothyroxine 125 mcg tablet 112 mcg PO QDAY liothyronine 5 mcg tablet 5 mcg PO QDAY metoprolol tartrate 50 mg tablet 50 mg PO BID Qty: 180 3RF spironolactone 25 mg tablet 25 mg PO DAILY Qty: 90 3RF acetaminophen 500 mg Tablet 1,000 mg PO Q6H PRN PRN (Reason: Pain Score 1-10) Qty: 0 0RF atorvastatin 20 mg tablet 20 mg PO DAILY Patient Comments: take 1 tablet by mouth once daily sodium chloride 1,000 mg tablet,soluble 1,000 mg PO BID Qty: 60 0RF Patient Comments: take 1 tablet by mouth daily EXCEPT TAKE 2 TABS ON SUNDAY, WEDNESDAYS AND FRIDAYS carvedilol 3.125 mg tablet 3.125 mg PO BID olmesartan 40 mg tablet 40 mg PO DAILY Qty: 90 3RF Held aspirin [Adult Aspirin Regimen] 81 mg tablet,delayed release (DR/EC) 81 mg PO DAILY Qty: 90 3RF Hold Instructions: Resume on 12/23/24. hold as she is being put on PO [id number] bid x 2 weeks for DVT prophylaxis. To resume aspirin 81mg daily when she completes the course of PO aspirin 81mg bid x 2 weeks. Discontinued meloxicam 15 mg Tablet 15 mg PO DAILY Qty: 0 0RF Referrals / Follow Up: Argelia Darby DO [Primary Care Provider] - Within 1 Week Luis Dozier MD [Med Staff - Active Staff] - Within 1 Week Disposition Disposition (needs filled in before D/C Order can be placed): [facility] Facility Charges/Coding Visit Charges Inpatient E&M: 93152 Disch Hosp >30min 12/09/24 1418 <Electronically signed by Montse Cabrera MD> Cosigner Signature (if applicable): CC: Dr. Argelia Darby DO; Dr. Montse Cabrera MD~ Signed [facility] Work Phone: [phone]) 385-306703-18-2025 Discharge summary Author [facility]se [facility] Note Date/Time December 09, 2024 1:1 7pm [facility] Medical Records Department [address] [place] [address] Transfer to [facility] MR#: [id number] Acct: [id number] Name: JERO LEWIS Rep #:[id number] : 1945 79 From: Montse Cabrera MD PCP: Dr. Argelia Darby DO Status:ADM IN Certification of patient admission REQUIRED AT TIME OF ADMISSION. I CERTIFY THAT POST-HOSPITAL ECF SERVICES ARE REQUIRED TO BE GIVEN ON AN IN-PATIENT BASIS BECAUSE OF THE ABOVE NAMED PATIENT'S NEED FOR SKILLED NURSING CARE ON A CONTINUING BASIS FOR THE CONDITION(S) FOR WHICH HE/SHE WAS RECEIVING IN-PATIENT HOSPITAL SERVICES PRIOR TO HIS/HER TRANSFER TO THE F. 12/09/24 1317<Electronically signed by Montse Cabrera MD> Diet Diet Order/Speech Therapy: 12/06/24 20:03 Diet: Regular - General Food consistency:: Regular Liquid Consistency:: Regular/Thin Routine Orders/Code Status Enema Type: Fleetz Enema Frequency: Daily PRN Suppository Type: Dulcolax 10mg Suppository Frequency: Daily PRN DC O2, CPAP, BIPAP needs Home O2 Discharge instructions: No Wound(s) right forehead: Wound Type: Abrasion lips: Wound Type: Abrasion left knee: Wound Type: Abrasion Therapies Weight Bearing: Weight bearing as tolerated Physical Therapy: Eval and Treat Occupational Therapy: Eval and Treat Problem/Diagnosis (1) Elevated troponin: Status: Acute Code(s): R79.89 - Other specified abnormal findings of blood chemistry (2) Syncope: Status: Acute Code(s): R55 - Syncope and collapse (3) Preoperative cardiovascular examination: Status: Acute Code(s): Z01.810 - Encounter for preprocedural cardiovascular examination Plan #Left patella fracture due to mechanical fall * orthopedic surgery on board * Orthopedic surgery recommends conservative management for now with partial weightbearing. * P.o. Tylenol, p.o. oxycodone and IV morphine as needed for pain * Cardiology reviewed patient and recommends no further cardiac workup as she is at low risk of perioperative cardiovascular events from surgery. #Syncope * patient has had recurrent syncope. * has had holter monitoring which showed nonsustained vtach * followed with [facility] on outpatient basis * cardiology consulted; recommendations as above. * She also had a stress test recently which was negative for any evidence of ischemia. * fall precautions. PT./ OT on board #Elevated troponins: * Likely due to demand ischemia from her syncope. * Initial troponin was 108 and trended up to a peak of 184. * Cardiology reviewed patient and recommended no further workup as she had recently had a stress test which was negative. #Nonsustained ventricular tachycardia * Thought to be the cause of the recurrent syncope. * has had holter monitoring done which showed evidence of nonsustained vtach. * cardiology consulted; per cardiology she had a coronary angiogram in 2019 which showed mild nonobstructive CAD. Recent stress test done was also negative for ischemia. * Cardiology recommends meclizine as they do not think syncope is cardiac in origin. * patient currently on meclizine * #CAD: On aspirin and carvedilol. #Hypothyroidism: On Synthroid and liothyronine #Hypertension: On carvedilol and losartan #Depression: On sertraline DVT prophylaxis: Lovenox Disposition: currently awaiting placement. CODE STATUS: DNR CCA no intubation. Allergies/Procedures Done in Hospital Allergies propoxyphene HCl (From Darvon) Allergy (Verified 12/06/24 16:36) Nausea atorvastatin Adverse Reaction (Intermediate, Verified 12/06/24 16:36) myalgia codeine Adverse Reaction (Intermediate, Verified 12/06/24 16:36) Nausea simvastatin Adverse Reaction (Intermediate, Verified 12/06/24 16:36) Myalgia Procedures: None Type of Care/Length of Stay Estimated LOS: Convalescent Care Less Than 30 days Type of Care Needed: Skilled Rehab Potential: Fair Prognosis: Fair Additional Orders/Day of Discharge Day of Discharge: 12/09/24 Dietary and Speech Recommendations Dietitian Recommendations/Changes: Continue regular diet. Will monitor weight trends. Discharge Plan Admission Admit Date/Time: 12/06/24 18:45 Primary Reason for Your Visit: left patella fracture, mechanical fall Attending Provider: Montse Cabrera Primary Care Provider: Argelia Darby Consulting Providers: -Attn: [facility]; Sandro Jackman; Michelle Dang Instructions Patient Instructions: ED Patella Fracture Discharge Orders/Prescriptions Prescriptions: New meclizine 25 mg Tablet 25 mg PO TID Qty: 90 2RF Eliquis 2.5 mg tablet 2.5 mg PO BID 28 Days Qty: 56 0RF acetaminophen [Tylenol] 325 mg tablet 650 mg PO Q6H PRN (Reason: pain) Qty: 30 1RF Continued Caltrate 600-D Plus Minerals 600 mg calcium- 800 unit-40 mg tablet,chewable 1 tab PO BID cyanocobalamin (vitamin B-12) 1,000 mcg capsule 1,000 mcg PO QMONTH Rx Instructions: pt takes once a month at primary office aspirin [Adult Aspirin Regimen] 81 mg tablet,delayed release (DR/EC) 81 mg PO DAILY Qty: 90 3RF levocetirizine 5 mg tablet 5 mg PO QDAY sertraline 100 mg tablet 100 mg PO QDAY ipratropium bromide 21 mcg (0.03 %) spray,non-aerosol 2 spray intranasal BID Patient Comments: [NO ORIGINAL SIG] levothyroxine 125 mcg tablet 112 mcg PO QDAY liothyronine 5 mcg tablet 5 mcg PO QDAY metoprolol tartrate 50 mg tablet 50 mg PO BID Qty: 180 3RF spironolactone 25 mg tablet 25 mg PO DAILY Qty: 90 3RF acetaminophen 500 mg Tablet 1,000 mg PO Q6H PRN PRN (Reason: Pain Score 1-10) Qty: 0 0RF atorvastatin 20 mg tablet 20 mg PO DAILY Patient Comments: take 1 tablet by mouth once daily sodium chloride 1,000 mg tablet,soluble 1,000 mg PO BID Qty: 60 0RF Patient Comments: take 1 tablet by mouth daily EXCEPT TAKE 2 TABS ON SUNDAY, WEDNESDAYS AND FRIDAYS carvedilol 3.125 mg tablet 3.125 mg PO BID olmesartan 40 mg tablet 40 mg PO DAILY Qty: 90 3RF Discontinued meloxicam 15 mg Tablet 15 mg PO DAILY Qty: 0 0RF Referrals / Follow Up: Argelia Darby DO [Primary Care Provider] - Within 1 Week Luis Dozier MD [Med Staff - Active Staff] - Within 1 Week Disposition Disposition (needs filled in before D/C Order can be placed): [facility] Facility Charges/Coding Visit Charges Inpatient E&M: 28197 Disch Hosp >30min (2) Syncope Qualifiers: Syncope type: unspecified Qualified Code(s): R55 - Syncope and collapse 12/09/24 1317 <Electronically signed by Montse Cabrera MD> Cosigner Signature (if applicable): CC: [facility] - ATTN: DANIELLE COKER; Dr. Sandro Jackman MD; Dr. Argelia Darby DO; Dr. Michelle Dang MD ~ [facility] Work Phone: [phone] Discharge summary [facility] Medical Records Department [address] [place] [id number] Discharge Summary 12/09/24 1317 MR#: [id number] Acct: [id number] Name: JERO LEWIS Rep #:[id number] : 1945 79 From: Montse Cabrera MD PCP: Dr. Argelia Darby DO Status:ADM IN Location: [facility] [id number] Providers Date of Admission: 12/06/24 Date of Discharge: 12/09/24 Primary Care Physician: Dr. Argelia Darby DO Consultations 12/06/24 20:03 Consult: Orthopedics Routine Consulting Provider: -Attn: BUDDY [facility] Reason for Consult: Patellar Fracture EMERGENT Consult: Yes Notified: Yes Date Notified: 12/06/24 Time Notified: 18:50 Method of Notification: ED Physician Initiated 12/06/24 22:09 Consult: Cardiology Routine Consulting Provider: Nagajothi,Nagapradee Reason for Consult: elevated troponins EMERGENT Consult: No MD Notified: Yes Date Notified: 12/07/24 Time Notified: 07:29 Method of Notification: Text Reason For Visit: SYNCOPE Diagnosis Discharge Diagnosis (1) Elevated troponin: Status: Acute Code(s): R79.89 - Other specified abnormal findings of blood chemistry (2) Syncope: Status: Acute Code(s): R55 - Syncope and collapse Qualifiers: Syncope type: unspecified Qualified Code(s): R55 - Syncope and collapse (3) Preoperative cardiovascular examination: Status: Acute Code(s): Z01.810 - Encounter for preprocedural cardiovascular examination Plan #Left patella fracture due to mechanical fall * orthopedic surgery on board * Orthopedic surgery recommends conservative management for now with partial weightbearing. * P.o. Tylenol, p.o. oxycodone and IV morphine as needed for pain * Cardiology reviewed patient and recommends no further cardiac workup as she is at low risk of perioperative cardiovascular events from surgery. #Syncope * patient has had recurrent syncope. * has had holter monitoring which showed nonsustained vtach * followed with [facility] on outpatient basis * cardiology consulted; recommendations as above. * She also had a stress test recently which was negative for any evidence of ischemia. * fall precautions. PT./ OT on board #Elevated troponins: * Likely due to demand ischemia from her syncope. * Initial troponin was 108 and trended up to a peak of 184. * Cardiology reviewed patient and recommended no further workup as she had recently had a stress test which was negative. #Nonsustained ventricular tachycardia * Thought to be the cause of the recurrent syncope. * has had holter monitoring done which showed evidence of nonsustained vtach. * cardiology consulted; per cardiology she had a coronary angiogram in 2019 which showed mild nonobstructive CAD. Recent stress test done was also negative for ischemia. * Cardiology recommends meclizine as they do not think syncope is cardiac in origin. * patient currently on meclizine * #CAD: On aspirin and carvedilol. #Hypothyroidism: On Synthroid and liothyronine #Hypertension: On carvedilol and losartan #Depression: On sertraline DVT prophylaxis: Lovenox Disposition: currently awaiting placement. CODE STATUS: DNR CCA no intubation. Medications at Discharge Home Medications atorvastatin 20 mg tablet 20 mg PO DAILY hld 07/28/23 sodium chloride 1,000 mg soluble tablet 1,000 mg PO BID supplement #60 tabs 07/31/23 acetaminophen 500 mg tablet 1,000 mg (2 x 500 mg) PO Q6H PRN PRN Pain Score 1- 10#0 tabs 08/08/23 aspirin 81 mg tablet,delayed release (Adult Aspirin Regimen) 81 mg PO DAILY #90 tabs 09/04/23 Held on 12/09/24. Instructions: Resume on 12/23/24. hold as she is being put on PO aspirin 81mg bidx 2 weeks for DVT prophylaxis. To resume aspirin 81mg daily when she completes the course of PO aspirin 81mg bid x 2 weeks. calcium 600 mg-D3 800 unit-mag 40 kn-hlia-trnb-joseph-boron chew tablet (Caltrate 600-D Plus Minerals) 1 tab PO BID 09/04/23 cyanocobalamin (vitamin B-12) 1,000 mcg capsule 1,000 mcg PO QMONTH 09/04/23 olmesartan 40 mg tablet 40 mg PO DAILY see #90 tabs 10/25/23 ipratropium bromide 21 mcg (0.03 %) nasal spray 2 spray intranasal BID 03/11/24 levocetirizine 5 mg tablet 5 mg PO QDAY 03/11/24 sertraline 100 mg tablet 100 mg PO QDAY 03/11/24 levothyroxine 125 mcg tablet 112 mcg PO QDAY 06/10/24 liothyronine 5 mcg tablet 5 mcg PO QDAY 12/04/24 metoprolol tartrate 50 mg tablet 50 mg PO BID #180 tabs 12/04/24 spironolactone 25 mg tablet 25 mg PO DAILY #90 tabs 12/04/24 carvedilol 3.125 mg tablet 3.125 mg PO BID 12/06/24 acetaminophen 325 mg tablet (Tylenol) 650 mg (2 x 325 mg) PO Q6H PRN pain #30 tabs 12/09/24 aspirin 81 mg tablet,delayed release 81 mg PO BID 14 days #28 tabs 12/09/24 meclizine 25 mg tablet 25 mg PO TID #90 tabs 12/09/24 Hospital Course Operations None Procedures None Summary of Care Provided Minutes Spent on Discharge: 47 Hospital Course: Patient is an 79 y/o F with a PMh as outlined who was admitted via the ED on 12/09/2024 with a complaint of mechanical fall whilst picking up groceries. She had a blackout and when she woke up she hadblood all over her face. Patient had apparently had recurrent episodes of syncope and lightheadedness and not being worked up by cardiology. She had undergone extensive evaluation with Holter monitoring which showed some evidence of nonsustained VT, pharmacologicalstress test which showed no evidence of ischemia. She was also scheduled to follow-up with neurology on outpatient basis. On admissionvitals were essentially stable. Initial troponin was mildly elevated at 108. X-ray showed acute fracture of the patella body with joint effusion. Cardiology was consultedfor pre op cardiac risk stratification. Cardiology evaluated patient and recommended that she did not need any further workup prior to surgery. Orthopedic surgery was consulted and recommended no surgical intervention for now. Patient was to be partial weightbearing on the left lower extremity. She did work with physical therapy and was deemed as needing skilled evaluation. She was discharged to nursing home facility on 12/09/2024. She is follow-up with her primary care doctor within 1 to 2 weeks. She is also to follow upwith orthopedic surgery within 1-2 weeks for evaluation. Due to her history of frequent falls and syncope, and therefore increased risk of bleed, patient was not discharged on any anticoagulant for DVT prophylaxis. She was discharged on p.o. aspirin 81 mg twice daily for 2 weeks. She is follow-up with her primary care doctor and orthopedic surgery as stated. Patient seen and examined prior to discharge. She had no complaints and felt well. Review of systems otherwise negative. Labs and vitals reviewed. Medication reviewed and reconciled. Physical Exam Const alert, oriented x3 and no apparent distress General Appearance: cooperative HEENT normocephalic and oropharynx normal Eyes PERRL and EOMs intact bilaterally Neck no lymphadenopathy and supple Lymph Lymphatic: no lymphadenopathy noted and no lymphedema noted Resp normal respiratory effort, normal air movement and no retractions Cardio regular rate, regular rhythm, S1 normal heart sound, S2 normal heart sound and no murmurs Cardio Narrative: Tachycardia present GI normal to inspection, nondistended, normoactive bowel sounds, soft to palpation,non-tender and non-distended Extremity normal capillary refill, no clubbing, cyanosis or edema and no calf tenderness Extremity Narrative: left knee in knee brace Skin General Skin Exam: no breakdown Neuro oriented x3 and CN's II-XII intact bilaterally Neuro Narrative: pain with moving LLE due to fractured left patella. Sensorium / Orientation: alert Motor Exam: general weakness Psych Appearance: appropriate Weight / BMI Weight Weight: 176 lb 2.389 oz Body Mass Index (BMI) 28.4 ABG / Lab / Microbiology Data 12/08/24 08:25 12/08/24 08:25 Laboratory: Laboratory Results - last 24 hr 12/08/24 08:25: Sodium 125 L, Potassium 3.8, Chloride 94 L, Carbon Dioxide 22.7,Anion Gap 9, BUN 26H, Creatinine 0.84, Estim Creat Clear Calc 56.00, Est GFR (MDRD) Non-Af 70, BUN/Creatinine Ratio 30.4 H, Glucose 134 H, Calcium 9.0 D/C Instructions Discharge Diet: Low fat / Low cholesterol Discharge Activity: Use Walker (partial weight bearing) and - Weight Bearing Status: Partial weight bearing Call your doctor if you observe: Fever of 101 or Higher, Shortness of breath, Dizziness, Chest painand Uncontrolled pain DC O2, CPAP, BIPAP Needs Home O2 Discharge instructions: No DC home with Oxygen: No Meaningful Use Info Meaningful Use Meaningful Use Diagnoses (Choose all that apply): None applicable Ischemic Stroke Statin Dosing Therapy Reference: STATIN DOSE THERAPY REFERENCE: * Patients > 75 years receive moderate or high dose statin therapy. * Patients 75 years or YOUNGER should receive HIGH intensity statin dose unless contraindicated. You will be required to document reason for non-treatment if statin daily dose does not meet guidelines. HIGH DOSE STATIN THERAPY DAILY Atorvastatin > than or = to 40 mg Rosuvastatin > than or = to 20 mg Amlodipine + Atorvastatin > than or = to 2.5/40 mg Ezetimibe + Simvastatin 10/80 mg Simvastatin 80mg Discharge Plan Admission Admit Date/Time: 12/06/24 18:45 Primary Reason for Your Visit: left patella fracture, mechanical fall Attending Provider: Montse Cabrera Primary Care Provider: Argelia Darby Consulting Providers: -Attn: [facility]; Sandro Jackman; Michelle Dang Instructions Patient Instructions: ED Patella Fracture Discharge Orders/Prescriptions Prescriptions: New meclizine 25 mg Tablet 25 mg PO TID Qty: 90 2RF acetaminophen [Tylenol] 325 mg tablet 650 mg PO Q6H PRN (Reason: pain) Qty: 30 1RF aspirin 81 mg tablet,delayed release (DR/EC) 81 mg PO BID 14 Days Qty: 28 0RF Continued Caltrate 600-D Plus Minerals 600 mg calcium- 800 unit-40 mg tablet,chewable 1 tab PO BID cyanocobalamin (vitamin B-12) 1,000 mcg capsule 1,000 mcg PO QMONTH Rx Instructions: pt takes once a month at primary office levocetirizine 5 mg tablet 5 mg PO QDAY sertraline 100 mg tablet 100 mg PO QDAY ipratropium bromide 21 mcg (0.03 %) spray,non-aerosol 2 spray intranasal BID Patient Comments: [NO ORIGINAL SIG] levothyroxine 125 mcg tablet 112 mcg PO QDAY liothyronine 5 mcg tablet 5 mcg PO QDAY metoprolol tartrate 50 mg tablet 50 mg PO BID Qty: 180 3RF spironolactone 25 mg tablet 25 mg PO DAILY Qty: 90 3RF acetaminophen 500 mg Tablet 1,000 mg PO Q6H PRN PRN (Reason: Pain Score 1-10) Qty: 0 0RF atorvastatin 20 mg tablet 20 mg PO DAILY Patient Comments: take 1 tablet by mouth once daily sodium chloride 1,000 mg tablet,soluble 1,000 mg PO BID Qty: 60 0RF Patient Comments: take 1 tablet by mouth daily EXCEPT TAKE 2 TABS ON SUNDAY, WEDNESDAYS AND FRIDAYS carvedilol 3.125 mg tablet 3.125 mg PO BID olmesartan 40 mg tablet 40 mg PO DAILY Qty: 90 3RF Held aspirin [Adult Aspirin Regimen] 81 mg tablet,delayed release (DR/EC) 81 mg PO DAILY Qty: 90 3RF Hold Instructions: Resume on 12/23/24. hold as she is being put on PO [id number] bid x 2 weeks forDVT prophylaxis. To resume aspirin 81mg daily when she completes the course of PO aspirin 81mg bid x 2 weeks. Discontinued meloxicam 15 mg Tablet 15 mg PO DAILY Qty: 0 0RF Referrals / Follow Up: Argelia Darby DO [Primary Care Provider] - Within 1 Week Luis Dozier MD [Med Staff - Active Staff] - Within 1 Week Disposition Disposition (needs filled in before D/C Order can be placed): [facility] Facility Charges/Coding Visit Charges Inpatient E&M: 12452 Disch Hosp >30min 12/09/24 1418 Cosigner Signature (if applicable): CC: Dr. Argelia Darby DO; Dr. Montse Cabrera MD~ Signed [facility]03-18-2025 Discharge summary [facility] Medical Records Department [address] [place] [address] Transfer to [facility] MR#: [id number] Acct: [id number] Name: JERO LEWIS Rep #:[id number] : 1945 79 From: Montse Cabrera MD PCP: Dr. Argelia Darby DO Status:ADM IN Certification of patient admission REQUIRED AT TIME OF ADMISSION. I CERTIFY THAT POST-HOSPITAL ECF SERVICES ARE REQUIRED TO BE GIVEN ON AN IN-PATIENT BASIS BECAUSE OF THE ABOVE NAMED PATIENT'S NEED FOR SKILLED NURSING CARE ON A CONTINUING BASIS FOR THE CONDITION(S) FOR WHICH HE/SHE WAS RECEIVING IN-PATIENT HOSPITAL SERVICES PRIOR TO HIS/HER TRANSFER TO THE [facility]. 12/09/24 1317 Diet Diet Order/Speech Therapy: 12/06/24 20:03 Diet: Regular - General Food consistency:: Regular Liquid Consistency:: Regular/Thin Routine Orders/Code Status Enema Type: Fleetz Enema Frequency: Daily PRN Suppository Type: Dulcolax 10mg Suppository Frequency: Daily PRN DC O2, CPAP, BIPAP needs Home O2 Discharge instructions: No Wound(s) right forehead: Wound Type: Abrasion lips: Wound Type: Abrasion left knee: Wound Type: Abrasion Therapies Weight Bearing: Weight bearing as tolerated Physical Therapy: Eval and Treat Occupational Therapy: Eval and Treat Problem/Diagnosis (1) Elevated troponin: Status: Acute Code(s): R79.89 - Other specified abnormal findings of blood chemistry (2) Syncope: Status: Acute Code(s): R55 - Syncope and collapse (3) Preoperative cardiovascular examination: Status: Acute Code(s): Z01.810 - Encounter for preprocedural cardiovascular examination Plan #Left patella fracture due to mechanical fall * orthopedic surgery on board * Orthopedic surgery recommends conservative management for now with partial weightbearing. * P.o. Tylenol, p.o. oxycodone and IV morphine as needed for pain * Cardiology reviewed patient and recommends no further cardiac workup as she is at low risk of perioperative cardiovascular events from surgery. #Syncope * patient has had recurrent syncope. * has had holter monitoring which showed nonsustained vtach * followed with [facility] on outpatient basis * cardiology consulted; recommendations as above. * She also had a stress test recently which was negative for any evidence of ischemia. * fall precautions. PT./ OT on board #Elevated troponins: * Likely due to demand ischemia from her syncope. * Initial troponin was 108 and trended up to a peak of 184. * Cardiology reviewed patient and recommended no further workup as she had recently had a stress test which was negative. #Nonsustained ventricular tachycardia * Thought to be the cause of the recurrent syncope. * has had holter monitoring done which showed evidence of nonsustained vtach. * cardiology consulted; per cardiology she had a coronary angiogram in 2019 which showed mild nonobstructive CAD. Recent stress test done was also negative for ischemia. * Cardiology recommends meclizine as they do not think syncope is cardiac in origin. * patient currently on meclizine * #CAD: On aspirin and carvedilol. #Hypothyroidism: On Synthroid and liothyronine #Hypertension: On carvedilol and losartan #Depression: On sertraline DVT prophylaxis: Lovenox Disposition: currently awaiting placement. CODE STATUS: DNR CCA no intubation. Allergies/Procedures Done in Hospital Allergies propoxyphene HCl (From Darvon) Allergy (Verified 12/06/24 16:36) Nausea atorvastatin Adverse Reaction (Intermediate, Verified 12/06/24 16:36) myalgia codeine Adverse Reaction (Intermediate, Verified 12/06/24 16:36) Nausea simvastatin Adverse Reaction (Intermediate, Verified 12/06/24 16:36) Myalgia Procedures: None Type of Care/Length of Stay Estimated LOS: Convalescent Care Less Than 30 days Type of Care Needed: Skilled Rehab Potential: Fair Prognosis: Fair Additional Orders/Day of Discharge Day of Discharge: 12/09/24 Dietary and Speech Recommendations Dietitian Recommendations/Changes: Continue regular diet. Will monitor weight trends. Discharge Plan Admission Admit Date/Time: 12/06/24 18:45 Primary Reason for Your Visit: left patella fracture, mechanical fall Attending Provider: Montse Cabrera Primary Care Provider: Argelia Darby Consulting Providers: -Attn: [facility]; Sandro Jackman; Michelle Dang Instructions Patient Instructions: ED Patella Fracture Discharge Orders/Prescriptions Prescriptions: New meclizine 25 mg Tablet 25 mg PO TID Qty: 90 2RF Eliquis 2.5 mg tablet 2.5 mg PO BID 28 Days Qty: 56 0RF acetaminophen [Tylenol] 325 mg tablet 650 mg PO Q6H PRN (Reason: pain) Qty: 30 1RF Continued Caltrate 600-D Plus Minerals 600 mg calcium- 800 unit-40 mg tablet,chewable 1 tab PO BID cyanocobalamin (vitamin B-12) 1,000 mcg capsule 1,000 mcg PO QMONTH Rx Instructions: pt takes once a month at primary office aspirin [Adult Aspirin Regimen] 81 mg tablet,delayed release (DR/EC) 81 mg PO DAILY Qty: 90 3RF levocetirizine 5 mg tablet 5 mg PO QDAY sertraline 100 mg tablet 100 mg PO QDAY ipratropium bromide 21 mcg (0.03 %) spray,non-aerosol 2 spray intranasal BID Patient Comments: [NO ORIGINAL SIG] levothyroxine 125 mcg tablet 112 mcg PO QDAY liothyronine 5 mcg tablet 5 mcg PO QDAY metoprolol tartrate 50 mg tablet 50 mg PO BID Qty: 180 3RF spironolactone 25 mg tablet 25 mg PO DAILY Qty: 90 3RF acetaminophen 500 mg Tablet 1,000 mg PO Q6H PRN PRN (Reason: Pain Score 1-10) Qty: 0 0RF atorvastatin 20 mg tablet 20 mg PO DAILY Patient Comments: take 1 tablet by mouth once daily sodium chloride 1,000 mg tablet,soluble 1,000 mg PO BID Qty: 60 0RF Patient Comments: take 1 tablet by mouth daily EXCEPT TAKE 2 TABS ON SUNDAY, WEDNESDAYS AND FRIDAYS carvedilol 3.125 mg tablet 3.125 mg PO BID olmesartan 40 mg tablet 40 mg PO DAILY Qty: 90 3RF Discontinued meloxicam 15 mg Tablet 15 mg PO DAILY Qty: 0 0RF Referrals / Follow Up: Argelia Darby DO [Primary Care Provider] - Within 1 Week Luis Dozier MD [Med Staff - Active Staff] - Within 1 Week Disposition Disposition (needs filled in before D/C Order can be placed): [facility] Facility Charges/Coding Visit Charges Inpatient E&M: 81034 Disch Hosp >30min (2) Syncope Qualifiers: Syncope type: unspecified Qualified Code(s): R55 - Syncope and collapse 12/09/24 1317 Cosigner Signature (if applicable): CC: [facility] - ATTN: DANIELLE COKER; Dr. Sandro Jackman MD; Dr. Argelia Darby DO; Dr. Michelle Dang MD ~ [facility]03-18-2025 [facility]03-17-2025 Progress note Author [facility] Note Date/Time December 08, 2024 4:[facility] [address] [place] [address] Progress Note 12/08/24 1149 MR#: [id number] Acct: [id number] Name: JERO LEWIS Rep #:[id number] : 1945 79 From: Montse Cabrera MD PCP: Dr. Argelia Darby, Status:ADM IN Location: [place] [address] Subjective Subjective Patient seen and examined. Pain in the left leg is well-controlled. She had noactive complaints. Review of systems otherwise negative. Remained hemodynamically stable. She is awaiting placement. Objective Data Objective Data Vital Signs: Vital Signs Temp Pulse Resp BP Pulse Ox O2 Del Method O2 Flow Rate 97.9 F 62 16 162/63 H 96 Room Air 2 12/08/24 04:00 12/08/24 04:00 12/08/24 04:00 12/08/24 04:00 12/08/24 07:45 12/08/24 07:45 12/08/24 04:00 Oxygen Flow Rate (L/min) 2 Oxygen Delivery Method Room Air Weight: 176 lb 2.389 oz Body Mass Index (BMI) 28.4 Intake & Output: Intake and Output for Last 24 Hours 12/06/24 12/07/24 12/08/24 23:59 23:59 23:59 Intake Total 400 / 900 900 / 900 Output Total 300 / 400 200 / 200 Balance 100 / 500 700 / 700 Lab / Micro Data 12/08/24 08:25 12/07/24 04:41 Labs: Laboratory Results - last 24 hr 12/08/24 08:25: WBC 8.8, RBC 4.31, Hgb 12.6, Hct 37.9, MCV 87.9, MCH 29.2, MCHC 33.2, RDW Std Deviation 42.1, RDW Coeff of Alejo 13.0, Plt Count 248, MPV 9.3, Immature Gran % (Auto) 0.300, Neut % (Auto) 79.7 H, Lymph % (Auto) 11.2 L, Meigs % (Auto) 7.2, Eos % (Auto) 1.4, Baso % (Auto) 0.2, Absolute Neuts (auto) 7.0, Absolute Lymphs (auto) 0.99, Nucleated RBC % 0 Rhythm Strip Rhythm Strip: Being read as paced. However the patient does not have a pacemaker. Rate: 72 Ectopy: None Physical Exam Const alert, oriented x3 and no apparent distress General Appearance: cooperative HEENT normocephalic and oropharynx normal HEENT Narrative: has superficial bruising on her upper lip due to the mechanical fall. Eyes PERRL and EOMs intact bilaterally Neck no lymphadenopathy and supple Lymph Lymphatic: no lymphadenopathy noted and no lymphedema noted Resp normal respiratory effort, normal air movement and no retractions Cardio regular rate, regular rhythm, S1 normal heart sound, S2 normal heart sound and no murmurs GI normal to inspection, nondistended, normoactive bowel sounds, soft to palpation,non-tender and non-distended Extremity normal capillary refill, no clubbing, cyanosis or edema and no calf tenderness Extremity Narrative: left knee in knee brace Skin General Skin Exam: no breakdown Neuro oriented x3 and CN's II-XII intact bilaterally Neuro Narrative: pain with moving LLE due to fractured left patella. Motor Exam: general weakness Psych Appearance: appropriate Assessment & Plan Assessment/Plan (1) Closed transverse fracture of left patella: (2) Elevated troponin: (3) Syncope: QUALIFIERS: Syncope type: unspecified Qualified Code(s): R55 - Syncope and collapse PLAN: Plan #Left patella fracture due to mechanical fall * orthopedic surgery on board * Orthopedic surgery recommends conservative management for now with partial weightbearing. * P.o. Tylenol, p.o. oxycodone and IV morphine as needed for pain * Cardiology reviewed patient and recommends no further cardiac workup as she is at low risk of perioperative cardiovascular events from surgery. #Syncope * patient has had recurrent syncope. * has had holter monitoring which showed nonsustained vtach * followed with [facility] on outpatient basis * cardiology consulted; recommendations as above. * She also had a stress test recently which was negative for any evidence of ischemia. * fall precautions. PT./ OT on board #Elevated troponins: * Likely due to demand ischemia from her syncope. * Initial troponin was 108 and trended up to a peak of 184. * Cardiology reviewed patient and recommended no further workup as she had recently had a stress test which was negative. #Nonsustained ventricular tachycardia * Thought to be the cause of the recurrent syncope. * has had holter monitoring done which showed evidence of nonsustained vtach. * cardiology consulted; per cardiology she had a coronary angiogram in 2019 which showed mild nonobstructive CAD. Recent stress test done was also negative for ischemia. * Cardiology recommends meclizine as they do not think syncope is cardiac in origin. * patient currently on meclizine * #CAD: On aspirin and carvedilol. #Hypothyroidism: On Synthroid and liothyronine #Hypertension: On carvedilol and losartan #Depression: On sertraline DVT prophylaxis: Lovenox Disposition: currently awaiting placement. CODE STATUS: DNR CCA no intubation. Charges/Coding Visit Charges Inpatient E&M: 04037 Subs Hosp L2 12/08/24 1611 <Electronically signed by Montse Cabrera MD> Montse Cabrera MD Cosigner Signature (if applicable): CC: ~ Signed [facility] Work Phone: [phone] 301-961503-17-2025 Progress note [facility] Medical Records Department [address] [place] [address] Progress Note 12/08/24 1149 MR#: [id number] Acct: [id number] Name: JERO LEWIS Rep #:[id number] : 1945 79 From: Montse Cabrera MD PCP: Dr. Argelia Darby, DO Status:ADM IN Location: [place] [address]- Subjective Subjective Patient seen and examined. Pain in the left leg is well-controlled. She had noactive complaints. Review of systems otherwise negative. Remained hemodynamically stable. She is awaiting placement. Objective Data Objective Data Vital Signs: Vital Signs Temp Pulse Resp BP Pulse Ox O2 Del Method O2 Flow Rate 97.9 F 62 16 162/63 H 96 Room Air 2 12/08/24 04:00 12/08/24 04:00 12/08/24 04:00 12/08/24 04:00 12/08/24 07:45 12/08/24 07:45 12/08/24 04:00 Oxygen Flow Rate (L/min) 2 Oxygen Delivery Method Room Air Weight: 176 lb 2.389 oz Body Mass Index (BMI) 28.4 Intake & Output: Intake and Output for Last 24 Hours 12/06/24 12/07/24 12/08/24 23:59 23:59 23:59 Intake Total 400 / 900 900 / 900 Output Total 300 / 400 200 / 200 Balance 100 / 500 700 / 700 Lab / Micro Data 12/08/24 08:25 12/07/24 04:41 Labs: Laboratory Results - last 24 hr 12/08/24 08:25: WBC 8.8, RBC 4.31, Hgb 12.6, Hct 37.9, MCV 87.9, MCH 29.2, MCHC 33.2, RDW Std Deviation 42.1, RDW Coeff of Alejo 13.0, Plt Count 248, MPV 9.3, Immature Gran % (Auto) 0.300, Neut % (Auto) 79.7 H, Lymph % (Auto) 11.2 L, Meigs % (Auto) 7.2, Eos % (Auto) 1.4, Baso % (Auto) 0.2, Absolute Neuts (auto) 7.0, Absolute Lymphs (auto) 0.99, Nucleated RBC % 0 Rhythm Strip Rhythm Strip: Being read as paced. However the patient does not have a pacemaker. Rate: 72 Ectopy: None Physical Exam Const alert, oriented x3 and no apparent distress General Appearance: cooperative HEENT normocephalic and oropharynx normal HEENT Narrative: has superficial bruising on her upper lip due to the mechanical fall. Eyes PERRL and EOMs intact bilaterally Neck no lymphadenopathy and supple Lymph Lymphatic: no lymphadenopathy noted and no lymphedema noted Resp normal respiratory effort, normal air movement and no retractions Cardio regular rate, regular rhythm, S1 normal heart sound, S2 normal heart sound and no murmurs GI normal to inspection, nondistended, normoactive bowel sounds, soft to palpation,non-tender and non-distended Extremity normal capillary refill, no clubbing, cyanosis or edema and no calf tenderness Extremity Narrative: left knee in knee brace Skin General Skin Exam: no breakdown Neuro oriented x3 and CN's II-XII intact bilaterally Neuro Narrative: pain with moving LLE due to fractured left patella. Motor Exam: general weakness Psych Appearance: appropriate Assessment & Plan Assessment/Plan (1) Closed transverse fracture of left patella: (2) Elevated troponin: (3) Syncope: QUALIFIERS: Syncope type: unspecified Qualified Code(s): R55 - Syncope and collapse PLAN: Plan #Left patella fracture due to mechanical fall * orthopedic surgery on board * Orthopedic surgery recommends conservative management for now with partial weightbearing. * P.o. Tylenol, p.o. oxycodone and IV morphine as needed for pain * Cardiology reviewed patient and recommends no further cardiac workup as she is at low risk of perioperative cardiovascular events from surgery. #Syncope * patient has had recurrent syncope. * has had holter monitoring which showed nonsustained vtach * followed with [facility] on outpatient basis * cardiology consulted; recommendations as above. * She also had a stress test recently which was negative for any evidence of ischemia. * fall precautions. PT./ OT on board #Elevated troponins: * Likely due to demand ischemia from her syncope. * Initial troponin was 108 and trended up to a peak of 184. * Cardiology reviewed patient and recommended no further workup as she had recently had a stress test which was negative. #Nonsustained ventricular tachycardia * Thought to be the cause of the recurrent syncope. * has had holter monitoring done which showed evidence of nonsustained vtach. * cardiology consulted; per cardiology she had a coronary angiogram in 2020 which showed mild nonobstructive CAD. Recent stress test done was also negative for ischemia. * Cardiology recommends meclizine as they do not think syncope is cardiac in origin. * patient currently on meclizine * #CAD: On aspirin and carvedilol. #Hypothyroidism: On Synthroid and liothyronine #Hypertension: On carvedilol and losartan #Depression: On sertraline DVT prophylaxis: Lovenox Disposition: currently awaiting placement. CODE STATUS: DNR CCA no intubation. Charges/Coding Visit Charges Inpatient E&M: 29904 Subs Hosp L2 12/08/24 1611 Montse Cabrera MD Cosigner Signature (if applicable): CC: ~ Signed [facility]03-17-2025 Progress note Author Michelle Dang [facility] Note Date/Time December 08, 2024 1:3 0pm [facility] Medical Records Department [address] [place] [address] Progress Note - Cardiology 12/08/24 1326 MR#: [id number] Acct: [id number] Name: JERO LEWIS Rep #:[id number] : 1945 79 From: Michelle harrell MD PCP: Dr. Argelia Darby, DO Status:ADM IN Location: [place] [address] Subjective Subjective Patient's dizziness is better after starting meclizine. She is able to move herhead a little bit more without getting dizzy. Today she described that in the past her dizzy spells, when she moves her head certain ways, would include a sensation of the room spinning and associated nausea. She would then quickly sit down. She has had dizziness on moving her head too quickly while she has been in the hospital. Telemetry during this time did not reveal any significantarrhythmias Objective Data Vital Signs: Vital Signs Temp Pulse Resp BP Pulse Ox O2 Del Method O2 Flow Rate 97.9 F 62 16 162/63 H 96 Room Air 2 12/08/24 04:00 12/08/24 04:00 12/08/24 04:00 12/08/24 04:00 12/08/24 07:45 12/08/24 11:15 12/08/24 04:00 Oxygen Flow Rate (L/min) 2 Oxygen Delivery Method Room Air Weight: 176 lb 2.389 oz Body Mass Index (BMI) 28.4 Intake & Output: Intake and Output for Last 24 Hours 12/06/24 12/07/24 12/08/24 23:59 23:59 23:59 Intake Total 400 / 900 900 / 900 Output Total 300 / 400 200 / 200 Balance 100 / 500 700 / 700 Lab / Micro Data 12/08/24 08:25 12/08/24 08:25 Labs: Laboratory Results - last 24 hr 12/08/24 08:25: WBC 8.8, RBC 4.31, Hgb 12.6, Hct 37.9, MCV 87.9, MCH 29.2, MCHC 33.2, RDW Std Deviation 42.1, RDW Coeff of Alejo 13.0, Plt Count 248, MPV 9.3, Immature Gran % (Auto) 0.300, Neut % (Auto) 79.7 H, Lymph % (Auto) 11.2 L, Meigs % (Auto) 7.2, Eos % (Auto) 1.4, Baso % (Auto) 0.2, Absolute Neuts (auto) 7.0, Absolute Lymphs (auto) 0.99, Nucleated RBC % 0, Sodium 125 L, Potassium 3.8, Chloride 94 L, Carbon Dioxide 22.7, Anion Gap 9, BUN 26 H, Creatinine 0.84, EstimCreat Clear Calc 56.00, Est GFR (MDRD) Non-Af 70, BUN/Creatinine Ratio 30.4 H, Glucose 134 H, Calcium 9.0 Rhythm Strip Rhythm Strip: Being read as paced. However the patient does not have a pacemaker. Rate: 72 Ectopy: None Cardiology Labs/Tests 12/08/24 08:25: WBC 8.8, RBC 4.31, Hgb 12.6, Hct 37.9, MCV 87.9, MCH 29.2, MCHC 33.2, Plt Count 248, MPV 9.3, Immature Gran % (Auto) 0.300, Neut % (Auto) 79.7 H, Lymph % (Auto) 11.2 L, Meigs % (Auto) 7.2, Eos % (Auto) 1.4, Baso % (Auto) 0.2,Absolute Neuts (auto) 7.0, Nucleated RBC % 0, Sodium 125 L, Potassium 3.8, Chloride 94 L, Carbon Dioxide 22.7, Anion Gap 9, BUN 26 H, Creatinine 0.84, Est GFR (MDRD) Non-Af 70, BUN/Creatinine Ratio 30.4 H, Glucose 134 H, Calcium 9.0 Rhythm: EKG: ECHO: Stress Test: Cardiac Cath: PCI: CT Surgery: Holter monitor: EPS: PPM: CXR: Chest CT Scan: Physical Exam Const alert and oriented x3 HEENT normocephalic Eyes no scleral icterus Resp normal respiratory effort Cardio regular rate Extremity no pedal edema Assessment & Plan Assessment/Plan (1) Elevated troponin: PLAN: Troponin is mildly elevated. Patient had coronary angiography in 2019 that showed mild nonobstructive CAD. She had a recent stress test that was negative for ischemia. She has not been having any anginal symptoms. No further workup required for this at this time. (2) Syncope: QUALIFIERS: Syncope type: unspecified Qualified Code(s): R55 - Syncope and collapse PLAN: Appears to be vestibular/neurally mediated. Does not appear to be cardiacin origin. Recommend meclizine on a scheduled basis. Patient has noticed improved symptoms compared to yesterday. (3) Preoperative cardiovascular examination: PLAN: No further cardiac workup required prior to patellar surgery if surgery isfelt to be indicated. Patient is at low risk of perioperative cardiovascular events from the surgery. PLAN: Plan We will sign off at this time. If we can be of any further assistance please let us know. 12/08/24 1330 <Electronically signed by Michelle Dang MD> Cosigner Signature (if applicable): CC: ~ Signed [facility] Work Phone: [phone] Progress note [facility] Medical Records Department [address] [place] [address] Progress Note - Cardiology 12/08/24 1326 MR#: [id number] Acct: [id number] Name: JERO LEWIS Rep #:[id number] : 1945 79 From: Michelle harrell MD PCP: Dr. Argelia Darby, DO Status:ADM IN Location: [place] [address] Subjective Subjective Patient's dizziness is better after starting meclizine. She is able to move herhead a little bit more without getting dizzy. Today she described that in the past her dizzy spells, when she moves her head certain ways, would include a sensation of the room spinning and associated nausea. She wouldthen quickly sit down. She has had dizziness on moving her head too quickly while she has been in the hospital. Telemetry during this time did not reveal any significantarrhythmias Objective Data Vital Signs: Vital Signs Temp Pulse Resp BP Pulse Ox O2 Del Method O2 Flow Rate 97.9 F 62 16 162/63 H 96 Room Air 2 12/08/24 04:00 12/08/24 04:00 12/08/24 04:00 12/08/24 04:00 12/08/24 07:45 12/08/24 11:15 12/08/24 04:00 Oxygen Flow Rate (L/min) 2 Oxygen Delivery Method Room Air Weight: 176 lb 2.389 oz Body Mass Index (BMI) 28.4 Intake & Output: Intake and Output for Last 24 Hours 12/06/24 12/07/24 12/08/24 23:59 23:59 23:59 Intake Total 400 / 900 900 / 900 Output Total 300 / 400 200 / 200 Balance 100 / 500 700 / 700 Lab / Micro Data 12/08/24 08:25 12/08/24 08:25 Labs: Laboratory Results - last 24 hr 12/08/24 08:25: WBC 8.8, RBC 4.31, Hgb 12.6, Hct 37.9, MCV 87.9, MCH 29.2, MCHC 33.2, RDW Std Deviation 42.1, RDW Coeff of Alejo 13.0, Plt Count 248, MPV 9.3, Immature Gran % (Auto) 0.300, Neut % (Auto) 79.7 H, Lymph % (Auto) 11.2 L, Meigs % (Auto) 7.2, Eos % (Auto) 1.4, Baso % (Auto) 0.2, Absolute Neuts (auto) 7.0, Absolute Lymphs (auto) 0.99, Nucleated RBC % 0, Sodium 125 L, Potassium 3.8, Chloride 94 L, Carbon Dioxide 22.7, Anion Gap 9, BUN 26 H, Creatinine 0.84, EstimCreat Clear Calc 56.00, Est GFR (MDRD) Non-Af 70, BUN/Creatinine Ratio 30.4 H, Glucose 134 H, Calcium 9.0 Rhythm Strip Rhythm Strip: Being read as paced. However the patient does not have a pacemaker. Rate: 72 Ectopy: None Cardiology Labs/Tests 12/08/24 08:25: WBC 8.8, RBC 4.31, Hgb 12.6, Hct 37.9, MCV 87.9, MCH 29.2, MCHC 33.2, Plt Count 248, MPV 9.3, Immature Gran % (Auto) 0.300, Neut % (Auto) 79.7 H, Lymph % (Auto) 11.2 L, Meigs % (Auto) 7.2, Eos % (Auto) 1.4, Baso % (Auto) 0.2,Absolute Neuts (auto) 7.0, Nucleated RBC % 0, Sodium 125 L,Potassium 3.8, Chloride 94 L, Carbon Dioxide 22.7, Anion Gap 9, BUN 26 H, Creatinine 0.84, Est GFR (MDRD) Non-Af 70, BUN/Creatinine Ratio 30.4 H, Glucose 134 H, Calcium 9.0 Rhythm: EKG: ECHO: Stress Test: Cardiac Cath: PCI: CT Surgery: Holter monitor: EPS: PPM: CXR: Chest CT Scan: Physical Exam Const alert and oriented x3 HEENT normocephalic Eyes no scleral icterus Resp normal respiratory effort Cardio regular rate Extremity no pedal edema Assessment & Plan Assessment/Plan (1) Elevated troponin: PLAN: Troponin is mildly elevated. Patient had coronary angiography in 2019 that showed mild nonobstructive CAD. She had a recent stress test that was negative for ischemia. She has not been having any anginal symptoms. No further workup required for this at this time. (2) Syncope: QUALIFIERS: Syncope type: unspecified Qualified Code(s): R55 - Syncope and collapse PLAN: Appears to be vestibular/neurally mediated. Does not appear to be cardiacin origin. Recommendmeclizine on a scheduled basis. Patient has noticed improved symptoms compared to yesterday. (3) Preoperative cardiovascular examination: PLAN: No further cardiac workup required prior to patellar surgery if surgery isfelt to be indicated. Patient is at low risk of perioperative cardiovascular events from the surgery. PLAN: Plan We will sign off at this time. If we can be of any further assistance please let us know. 12/08/24 133 Cosigner Signature (if applicable): CC: ~ Signed [facility]03-16-2025 Progress note Author Montse Cabrera [facility] Note Date/Time December 07, 2024 2:0 0pm [facility] Medical Records Department [address] [place] [address] Progress Note 12/07/241336 MR#: [id number] Acct: [id number] Name: JERO LEWIS Rep #:[id number] : 1945 79 From: Montse Cabrera MD PCP: Dr. Argelia Darby, DO Status:ADM IN Location: [place] [address] Subjective Subjective Patient seen and examined. Her knee pain was well-controlled as she just had some pain meds. She denied any palpitations or dizziness, shortness of breath or any other symptoms. Review of symptoms otherwise negative. Objective Data Objective Data Vital Signs: Vital Signs Temp Pulse Resp BP Pulse Ox O2 Del Method 97.7 F L 62 17 116/54 L 99 Room Air 12/07/24 09:01 12/07/24 09:01 12/07/24 09:01 12/07/24 09:01 12/07/24 09:01 12/07/24 09:01 Oxygen Delivery Method Room Air Weight: 176 lb 2.389 oz Body Mass Index (BMI) 28.4 Intake & Output: Intake and Output for Last 24 Hours 12/05/24 12/06/24 12/07/24 23:59 23:59 23:59 Intake Total 400 / 400 Output Total 300 / 300 Balance 100 / 100 Lab / Micro Data 12/07/24 04:41 12/07/24 04:41 Labs: Laboratory Results - last 24 hr 12/06/24 16:35: WBC 11.6 H, RBC 4.62, Hgb 13.6, Hct 40.5, MCV 87.7, MCH 29.4, MCHC 33.6, RDW Std Deviation 41.1, RDW Coeff of Alejo 12.9, Plt Count 279, MPV 9.2, Immature Gran % (Auto) 0.500, Neut % (Auto) 85.3 H, Lymph % (Auto) 8.6 L, Meigs % (Auto) 4.0, Eos % (Auto) 1.3, Baso % (Auto) 0.3, Absolute Neuts (auto) 9.9 H, Absolute Lymphs (auto) 0.99, Nucleated RBC % 0, Sodium 134, Potassium 4.3, Chloride 97 L, Carbon Dioxide 23.1, Anion Gap 14, BUN 16, Creatinine 0.96, Estim Creat Clear Calc 51.06, Est GFR (MDRD) Non-Af 60, BUN/Creatinine Ratio 17.1, Glucose 127 H, Calcium 9.5, Troponin T High Sens 108 H* 12/06/24 19:29: Troponin T Hi Sens 2 Hr 178 H* 12/06/24 20:27: Troponin T Hi Sens 2 Hr 184 H* 12/07/24 04:41: WBC 7.4, RBC 4.40, Hgb 12.9, Hct 39.0, MCV 88.6, MCH 29.3, MCHC 33.1, RDW Std Deviation 42.5, RDW Coeff of Alejo 13.0, Plt Count 263, MPV 9.7, Immature Gran % (Auto) 0.400, Neut % (Auto) 77.5 H, Lymph % (Auto) 13.1 L, Meigs % (Auto) 8.3, Eos % (Auto) 0.4, Baso % (Auto) 0.3, Absolute Neuts (auto) 5.7, Absolute Lymphs (auto) 0.97, Nucleated RBC % 0, PT 13.0, INR 1.0, Sodium 132 L, Potassium 4.2, Chloride 97 L, Carbon Dioxide 21.9, Anion Gap 13, BUN 19, Creatinine 0.93, Estim Creat Clear Calc 50.58, Est GFR (MDRD) Non-Af 62, BUN/Creatinine Ratio 20.6 H, Glucose 98, Calcium 9.3, Phosphorus 4.2, Magnesium 2.0, Total Bilirubin 0.68, Direct Bilirubin 0.29, AST 33 H, ALT 17, Alkaline Phosphatase 66, Total Protein 6.3, Albumin 3.9, Globulin 2.5, Albumin/Globulin Ratio 1.6, TSH 1.180 Radiography Diagnostic Testing: Radiology Impression Brain CT 12/06/24 16:41 IMPRESSION: No acute intracranial abnormality. Senescent changes. Reading Location: [facility] Cervical Spine CT 12/06/24 16:41 IMPRESSION: No evidence of acute cervical spine fracture. Demineralization does limit sensitivity One or more dose reduction techniques were used (e.g., Automated exposure control, adjustment of the mA and/or kV according to patient size, use of iterative reconstruction technique). Reading Location: [facility] Facial/Sinus 12/06/24 16:41 IMPRESSION: No evidence of acute facial fracture. Senescent changes. One or more dose reduction techniques were used (e.g., Automated exposure control, adjustment of the mA and/or kV according to patient size, use of iterative reconstruction technique). Reading Location: [facility] Chest X-Ray 12/06/24 17:10 IMPRESSION: No acute findings. Senescent changes. Mild cardiac enlargement. Reading Location: [facility] Knee X-Ray 12/06/24 17:10 IMPRESSION: Acute patellar fracture on background demineralization. Reading Location: [facility] Rhythm Strip Rhythm Strip: Being read as paced. However the patient does not have a pacemaker. Rate: 72 Ectopy: None Physical Exam Const alert, oriented x3 and no apparent distress General Appearance: cooperative HEENT normocephalic and oropharynx normal HEENT Narrative: dry oral mucosal membranes. Has a superficial ulceration over her lip. Eyes PERRL and EOMs intact bilaterally Neck no lymphadenopathy and supple Lymph Lymphatic: no lymphadenopathy noted and no lymphedema noted Resp Resp Narrative: mildly diminished breath sounds bibasally, no wheezes or crackles. Cardio regular rate, regular rhythm, S1 normal heart sound, S2 normal heart sound and no murmurs GI normal to inspection, nondistended, normoactive bowel sounds, soft to palpation,non-tender and non-distended Extremity normal capillary refill, no clubbing, cyanosis or edema and no calf tenderness Extremity Narrative: left knee in knee brace Skin General Skin Exam: no breakdown Neuro CN's II-XII intact bilaterally Neuro Narrative: pain with moving LLE due to fractured left patella. Psych Appearance: appropriate Assessment & Plan Assessment/Plan (1) Closed transverse fracture of left patella: (2) Elevated troponin: (3) Syncope: QUALIFIERS: Syncope type: unspecified Qualified Code(s): R55 - Syncope and collapse PLAN: Plan #Left patella fracture due to mechanical fall * orthopedic surgery on board * Orthopedic surgery recommends conservative management for now with partial weightbearing. * P.o. Tylenol, p.o. oxycodone and IV morphine as needed for pain * Cardiology reviewed patient and recommends no further cardiac workup as she is at low risk of perioperative cardiovascular events from surgery. #Syncope * patient has had recurrent syncope. * has had holter monitoring which showed nonsustained vtach * followed with [facility] on outpatient basis * cardiology consulted; recommendations as above. * She also had a stress test recently which was negative for any evidence of ischemia. #Nonsustained ventricular tachycardia * Thought to be the cause of the recurrent syncope. * has had holter monitoring done which showed evidence of nonsustained vtach. * cardiology consulted; per cardiology she had a coronary angiogram in 2019 which showed mild nonobstructive CAD. Recent stress test done was also negative for ischemia. * Cardiology recommends meclizine as they do not think syncope is cardiac in origin. * #CAD: On aspirin and carvedilol. #Hypothyroidism: On Synthroid and liothyronine #Hypertension: On carvedilol and losartan #Depression: On sertraline DVT prophylaxis: Lovenox Disposition: Will benefit from placement. CODE STATUS: DNR CCA no intubation. # # Hypertension: #DVT prophylaxis: Lovenox CODE STATUS: full code Charges/Coding Visit Charges Inpatient E&M: 87945 Subs Hosp L2 12/07/24 1400 <Electronically signed by Montse Cabrera MD> Montse Cabrera MD Cosigner Signature (if applicable): CC: ~ Signed [facility] Work Phone: [phone] Consult note Author Michelle Dang [facility] Note Date/Time December 07, 2024 1:1 7pm [facility] Medical Records Department [address] [place] [address] Consultation - Cardiology 12/07/24 1310 MR#: [id number] Acct: [id number] Name: JERO LEWIS Rep #:[id number] : 1945 79 From: Michelle harrell MD PCP: Dr. Argelia Darby, DO Status:ADM IN Location: [place] [address] Assessment & Plan Assessment/Plan (1) Elevated troponin: PLAN: Troponin is mildly elevated. Patient had coronary angiography in 2019 that showed mild nonobstructive CAD. She had a recent stress test that was negative for ischemia. She has not been having any anginal symptoms. No further workup required for this at this time. (2) Syncope: QUALIFIERS: Syncope type: unspecified Qualified Code(s): R55 - Syncope and collapse PLAN: Appears to be vestibular/neurally mediated. Does not appear to be cardiacin origin. Recommend meclizine on a scheduled basis. Patient had responded well to this in the past. (3) Preoperative cardiovascular examination: PLAN: No further cardiac workup required prior to patellar surgery if surgery isfelt to be indicated. Patient is at low risk of perioperative cardiovascular events from the surgery. HPI Consult Data Date of Consult: 12/07/24 HPI Narrative Reason for Consultation: Syncope HPI Narrative: JERO LEWIS, is a 79 F who presents after syncope and fall. Patient was apparently trying to get groceries from her front porch. She bent down to get them and passed out and hit the concrete floor. She has contusion of face, laceration of left and also fracture of left patella. Patient has been having this dizziness for a while. She has seen cardiology as an outpatient for this. She underwent stress testing recently and it was negative for ischemia. She hada 2D echo which showed preserved EF no significant valvular abnormalities. She had Holter monitoring which revealed a 4 beat run of nonsustained V. tach and short run of SVT. She also had a heart cath in 2019 which revealed 40% stenosesin 2 vessels. Her dizziness is precipitated by certain movements of her head. She was on meclizine at 1 point which helped her symptoms. She was advised to take it as needed at that point. Apparently someone also told her that she doesnot need it and she has not been taking it. She denies any chest pain, shortness of breath etc. Her troponin is mildly elevated. [facility] Medical History Vertigo PVCs (premature ventricular contractions) SOB (shortness of breath) Sleep apnea Vitamin D deficiency RLS (restless legs syndrome) Pulmonary hypertension Myalgia MVP (mitral valve prolapse) Dizziness CAD (coronary artery disease) Vitamin B12 deficiency Fatigue Osteoarthritis Depression Debility Kimberlee disease History of endometrial biopsy COVID-19 Chronic hyponatremia Anxiety and depression Hypothyroidism Allergic rhinitis Hyperlipidemia HTN (hypertension) Home Medications ?Medication ?Instructions ?Recorded ?Last Taken ?Type atorvastatin 20 mg tablet 20 mg PO DAILY hld 07/28/23 07/30/23 History sodium chloride 1,000 mg soluble 1,000 mg PO BID suppl ement #60 tabs 07/31/23 07/31/23 Rx tablet acetaminophen 500 mg tablet 1,000 mg (2 x 500 mg) PO Q 6H PRN 08/08/23 Unknown Rx PRN Pain Score 1-10 #0 tabs meloxicam 15 mg tablet 15 mg PO DAILY #0 tabs Unknown Rx aspirin 81 mg tablet,delayed 81 mg PO DAILY #90 tabs 09/04/23 12/06/24 Rx release (Adult Aspirin Regimen) calcium 600 mg-D3 800 unit-mag 40 1 tab PO BID 3 12/06/24 History nc-pxdx-ikjj-joseph-boron chew tablet (Caltrate 600-D Plus Minerals) cyanocobalamin (vitamin B-12) 1,000 mcg PO QMONTH 08/24 11/16 Unknown History 1,000 mcg capsule olmesartan 40 mg tablet 40 mg PO DAILY see #90 ta bs 10/25/23 12/06/24 Rx ipratropium bromide 21 mcg (0.03 2 spray intranasal BI D 03/11/24 Unknown History %) nasal spray levocetirizine 5 mg tablet 5 mg PO QDAY 03/11/24 Unkno wn History Held on 12/06/24. Instructions: pt stopped sertraline 100 mg tablet 100 mg PO QDAY 03/11/2411/22 History levothyroxine 125 mcg tablet 112 mcg PO QDAY 06/10/24 Unknown History liothyronine 5 mcg tablet 5 mcg PO QDAY 12/04/2412/06 History metoprolol tartrate 50 mg tablet 50 mg PO BID #180 t abs 12/04/24 Unknown Rx spironolactone 25 mg tablet 25 mg PO DAILY #90 tabs 12/04/24 Unknown Rx carvedilol 3.125 mg tablet 3.125 mg PO BID 12/06/24 History Allergy/AdvReac Type Severity Reaction Status Date / Time propoxyphene HCl (From Allergy Nausea Verified 12/06/24 16:36 Darvon) atorvastatin AdvReac Intermediate myalgia Verified 12/06/24 16:36 codeine AdvReac Intermediate Nausea Verified 12/06/24 16:36 simvastatin AdvReac Intermediate Myalgia Verified 12/06/24 16:36 Family History Mother CVA (cerebral vascular accident) Father Kimberlee disease Son Kimberlee disease Brother Heart disease Hypertension Daughter Lupus Arthritis Sister Melanoma Surgical History Hx of cataract extraction (~2020) Hx of cardiac catheterization (~09/09/20) History of tonsillectomy (~1958) Hx of tubal ligation (~1982) H/O cone biopsy of cervix H/O dilation and curettage Hx of myringotomy S/P thyroid biopsy Social History household members: none Smoking Status: Never smoker alcohol intake: never substance use type: does not use caffeine: Yes Type: coffee Number of servings: 2 Physical Exam Const alert and oriented x3 HEENT normocephalic Eyes no scleral icterus Resp normal respiratory effort Cardio regular rate Extremity no pedal edema Risk Stratification Risk Stratification Applicable: No Charges/Coding Visit Charges Inpatient E&M: 34514 Init Hosp L2 Objective Data Vital Signs: Vital Signs Temp Pulse Resp BP Pulse Ox O2 Del Method 97.7 F L 62 17 116/54 L 99 Room Air 12/07/24 09:01 12/07/24 09:01 12/07/24 09:01 12/07/24 09:01 12/07/24 09:01 12/07/24 09:01 Oxygen Delivery Method Room Air Weight: 176 lb 2.389 oz Body Mass Index (BMI) 28.4 Intake & Output: Intake and Output for Last 24 Hours 12/05/24 12/06/24 12/07/24 23:59 23:59 23:59 Intake Total 400 / 400 Output Total 300 / 300 Balance 100 / 100 Lab / Micro Data 12/07/24 04:41 12/07/24 04:41 Labs: Laboratory Results - last 24 hr 12/06/24 16:35: WBC 11.6 H, RBC 4.62, Hgb 13.6, Hct 40.5, MCV 87.7, MCH 29.4, MCHC 33.6, RDW Std Deviation 41.1, RDW Coeff of Alejo 12.9, Plt Count 279, MPV 9.2, Immature Gran % (Auto) 0.500, Neut % (Auto) 85.3 H, Lymph % (Auto) 8.6 L, Meigs % (Auto) 4.0, Eos % (Auto) 1.3, Baso % (Auto) 0.3, Absolute Neuts (auto) 9.9 H, Absolute Lymphs (auto) 0.99, Nucleated RBC % 0, Sodium 134, Potassium 4.3, Chloride 97 L, Carbon Dioxide 23.1, Anion Gap 14, BUN 16, Creatinine 0.96, Estim Creat Clear Calc 51.06, Est GFR (MDRD) Non-Af 60, BUN/Creatinine Ratio 17.1, Glucose 127 H, Calcium 9.5, Troponin T High Sens 108 H* 12/06/24 19:29: Troponin T Hi Sens 2 Hr 178 H* 12/06/24 20:27: Troponin T Hi Sens 2 Hr 184 H* 12/07/24 04:41: WBC 7.4, RBC 4.40, Hgb 12.9, Hct 39.0, MCV 88.6, MCH 29.3, MCHC 33.1, RDW Std Deviation 42.5, RDW Coeff of Alejo 13.0, Plt Count 263, MPV 9.7, Immature Gran % (Auto) 0.400, Neut % (Auto) 77.5 H, Lymph % (Auto) 13.1 L, Meigs % (Auto) 8.3, Eos % (Auto) 0.4, Baso % (Auto) 0.3, Absolute Neuts (auto) 5.7, Absolute Lymphs (auto) 0.97, Nucleated RBC % 0, PT 13.0, INR 1.0, Sodium 132 L, Potassium 4.2, Chloride 97 L, Carbon Dioxide 21.9, Anion Gap 13, BUN 19, Creatinine 0.93, Estim Creat Clear Calc 50.58, Est GFR (MDRD) Non-Af 62, BUN/Creatinine Ratio 20.6 H, Glucose 98, Calcium 9.3, Phosphorus 4.2, Magnesium 2.0, Total Bilirubin 0.68, Direct Bilirubin 0.29, AST 33 H, ALT 17, Alkaline Phosphatase 66, Total Protein 6.3, Albumin 3.9, Globulin 2.5, Albumin/Globulin Ratio 1.6, TSH 1.180 Rhythm Strip Rhythm Strip: Being read as paced. However the patient does not have a pacemaker. Rate: 72 Ectopy: None Cardiology Labs/Tests 12/06/24 16:35: WBC 11.6 H, RBC 4.62, Hgb 13.6, Hct 40.5, MCV 87.7, MCH 29.4, MCHC 33.6, Plt Count 279, MPV 9.2, Immature Gran % (Auto) 0.500, Neut % (Auto) 85.3 H, Lymph % (Auto) 8.6 L, Meigs % (Auto) 4.0, Eos % (Auto) 1.3, Baso % (Auto)0.3, Absolute Neuts (auto) 9.9 H, Nucleated RBC % 0, Sodium 134, Potassium 4.3, Chloride 97 L, Carbon Dioxide 23.1, Anion Gap 14, BUN 16, Creatinine 0.96, Est GFR (MDRD) Non- Af 60, BUN/Creatinine Ratio 17.1, Glucose 127 H, Calcium 9.5 12/07/24 04:41: WBC 7.4, RBC 4.40, Hgb 12.9, Hct 39.0, MCV 88.6, MCH 29.3, MCHC 33.1, Plt Count 263, MPV 9.7, Immature Gran % (Auto) 0.400, Neut % (Auto) 77.5 H, Lymph % (Auto) 13.1 L, Meigs % (Auto) 8.3, Eos % (Auto) 0.4, Baso % (Auto) 0.3,Absolute Neuts (auto) 5.7, Nucleated RBC % 0, PT 13.0, INR 1.0, Sodium 132 L, Potassium 4.2, Chloride 97 L, Carbon Dioxide 21.9, Anion Gap 13, BUN 19, Creatinine 0.93, Est GFR (MDRD) Non-Af 62, BUN/Creatinine Ratio 20.6 H, Glucose 98, Calcium 9.3, Phosphorus 4.2, Magnesium 2.0, Total Bilirubin 0.68, Direct Bilirubin 0.29 Rhythm: EKG: ECHO: Stress Test: Cardiac Cath: PCI: CT Surgery: Holter monitor: EPS: PPM: CXR: Chest CT Scan: Radiography Diagnostic Testing: Radiology Impression Brain CT 12/06/24 16:41 IMPRESSION: No acute intracranial abnormality. Senescent changes. Reading Location: [facility] Cervical Spine CT 12/06/24 16:41 IMPRESSION: No evidence of acute cervical spine fracture. Demineralization does limit sensitivity One or more dose reduction techniques were used (e.g., Automated exposure control, adjustment of the mA and/or kV according to patient size, use of iterative reconstruction technique). Reading Location: [facility] Facial/Sinus 12/06/24 16:41 IMPRESSION: No evidence of acute facial fracture. Senescent changes. One or more dose reduction techniques were used (e.g., Automated exposure control, adjustment of the mA and/or kV according to patient size, use of iterative reconstruction technique). Reading Location: [facility] Chest X-Ray 12/06/24 17:10 IMPRESSION: No acute findings. Senescent changes. Mild cardiac enlargement. Reading Location: [facility] Knee X-Ray 12/06/24 17:10 IMPRESSION: Acute patellar fracture on background demineralization. Reading Location: [facility] 12/07/24 1317 <Electronically signed by Michelle Dang MD> Cosigner Signature (if applicable): CC: Dr. Argelia Darby, DO~ Signed [facility] Work Phone: [phone] Progress note [facility] Medical Records Department [address] [place] [address] Progress Note 12/07/24 1337 MR#: [id number] Acct: [id number] Name: JERO LEWIS Rep #:[id number] : 1945 79 From: Montse Cabrera MD PCP: Dr. Argelia Darby DO Status:ADM IN Location: [place] [address] Subjective Subjective Patient seen and examined. Her knee pain was well-controlled as she just had some pain meds. She denied any palpitations or dizziness, shortness of breath or any other symptoms. Review of symptoms otherwise negative. Objective Data Objective Data Vital Signs: Vital Signs Temp Pulse Resp BP Pulse Ox O2 Del Method 97.7 F L 62 17 116/54 L 99 Room Air 12/07/24 09:01 12/07/24 09:01 12/07/24 09:01 12/07/24 09:01 12/07/24 09:01 12/07/24 09:01 Oxygen Delivery Method Room Air Weight: 176 lb 2.389 oz Body Mass Index (BMI) 28.4 Intake & Output: Intake and Output for Last 24 Hours 12/05/24 12/06/24 12/07/24 23:59 23:59 23:59 Intake Total 400 / 400 Output Total 300 / 300 Balance 100 / 100 Lab / Micro Data 12/07/24 04:41 12/07/24 04:41 Labs: Laboratory Results - last 24 hr 12/06/24 16:35: WBC 11.6 H, RBC 4.62, Hgb 13.6, Hct 40.5, MCV 87.7, MCH 29.4, MCHC 33.6, RDW Std Deviation 41.1, RDW Coeff of Alejo 12.9, Plt Count 279, MPV 9.2, Immature Gran % (Auto) 0.500, Neut % (Auto) 85.3 H, Lymph % (Auto) 8.6 L, Meigs % (Auto) 4.0, Eos % (Auto) 1.3, Baso % (Auto) 0.3, Absolute Neuts (auto) 9.9 H, Absolute Lymphs (auto) 0.99, Nucleated RBC % 0, Sodium 134, Potassium 4.3, Chloride 97 L, Carbon Dioxide 23.1, Anion Gap 14, BUN 16, Creatinine 0.96, Estim Creat Clear Calc 51.06, Est GFR (MDRD) Non-Af 60, BUN/Creatinine Ratio 17.1, Glucose 127 H, Calcium 9.5, Troponin T High Sens 108 H* 12/06/24 19:29: Troponin T Hi Sens 2 Hr 178 H* 12/06/24 20:27: Troponin T Hi Sens 2 Hr 184 H* 12/07/24 04:41: WBC 7.4, RBC 4.40, Hgb 12.9, Hct 39.0, MCV 88.6, MCH 29.3, MCHC 33.1, RDW Std Deviation 42.5, RDW Coeff of Alejo 13.0, Plt Count 263, MPV 9.7, Immature Gran % (Auto) 0.400, Neut % (Auto) 77.5 H, Lymph % (Auto) 13.1 L, Meigs % (Auto) 8.3, Eos % (Auto) 0.4, Baso % (Auto) 0.3, Absolute Neuts (auto) 5.7, Absolute Lymphs (auto) 0.97, Nucleated RBC % 0, PT 13.0, INR 1.0, Sodium 132 L, Potassium 4.2, Chloride 97 L, Carbon Dioxide 21.9, Anion Gap 13, BUN 19, Creatinine 0.93, Estim Creat Clear Calc 50.58, Est GFR (MDRD) Non-Af 62, BUN/Creatinine Ratio 20.6 H, Glucose 98, Calcium 9.3, Phosphorus 4.2, Magnesium 2.0, Total Bilirubin 0.68, Direct Bilirubin 0.29, AST 33 H, ALT 17, Alkaline Ph osphatase 66, Total Protein 6.3, Albumin 3.9, Globulin 2.5, Albumin/Globulin Ratio 1.6, TSH 1.180 Radiography Diagnostic Testing: Radiology Impression Brain CT 12/06/24 16:41 IMPRESSION: No acute intracranial abnormality. Senescent changes. Reading Location: [facility] Cervical Spine CT 12/06/24 16:41 IMPRESSION: No evidence of acute cervical spine fracture. Demineralization does limit sensitivity One or more dose reduction techniques were used (e.g., Automated exposure control, adjustment of the mA and/or kV according to patient size, use of iterative reconstruction technique). Reading Location: [facility] Facial/Sinus 12/06/24 16:41 IMPRESSION: No evidence of acute facial fracture. Senescent changes. One or more dose reduction techniques were used (e.g., Automated exposure control, adjustment of the mA and/or kV according to patient size, use of iterative reconstruction technique). Reading Location: [facility] Chest X-Ray 12/06/24 17:10 IMPRESSION: No acute findings. Senescent changes. Mild cardiac enlargement. Reading Location: [facility] Knee X-Ray 12/06/24 17:10 IMPRESSION: Acute patellar fracture on background demineralization. Reading Location: [facility] Rhythm Strip Rhythm Strip: Being read as paced. However the patient does not have a pacemaker. Rate: 72 Ectopy: None Physical Exam Const alert, oriented x3 and no apparent distress General Appearance: cooperative HEENT normocephalic and oropharynx normal HEENT Narrative: dry oral mucosal membranes. Has a superficial ulceration over her lip. Eyes PERRL and EOMs intact bilaterally Neck no lymphadenopathy and supple Lymph Lymphatic: no lymphadenopathy noted and no lymphedema noted Resp Resp Narrative: mildly diminished breath sounds bibasally, no wheezes or crackles. Cardio regular rate, regular rhythm, S1 normal heart sound, S2 normal heart sound and no murmurs GI normal to inspection, nondistended, normoactive bowel sounds, soft to palpation,non-tender and non-distended Extremity normal capillary refill, no clubbing, cyanosis or edema and no calf tenderness Extremity Narrative: left knee in knee brace Skin General Skin Exam: no breakdown Neuro CN's II-XII intact bilaterally Neuro Narrative: pain with moving LLE due to fractured left patella. Psych Appearance: appropriate Assessment & Plan Assessment/Plan (1) Closed transverse fracture of left patella: (2) Elevated troponin: (3) Syncope: QUALIFIERS: Syncope type: unspecified Qualified Code(s): R55 - Syncope and collapse PLAN: Plan #Left patella fracture due to mechanical fall * orthopedic surgery on board * Orthopedic surgery recommends conservative management for now with partial weightbearing. * P.o. Tylenol, p.o. oxycodone and IV morphine as needed for pain * Cardiology reviewed patient and recommends no further cardiac workup as she is at low risk of perioperative cardiovascular events from surgery. #Syncope * patient has had recurrent syncope. * has had holter monitoring which showed nonsustained vtach * followed with [facility] on outpatient basis * cardiology consulted; recommendations as above. * She also had a stress test recently which was negative for any evidence of ischemia. #Nonsustained ventricular tachycardia * Thought to be the cause of the recurrent syncope. * has had holter monitoring done which showed evidence of nonsustained vtach. * cardiology consulted; per cardiology she had a coronary angiogram in 2019 which showed mild nonobstructive CAD. Recent stress test done was also negative for ischemia. * Cardiology recommends meclizine as they do not think syncope is cardiac in origin. * #CAD: On aspirin and carvedilol. #Hypothyroidism: On Synthroid and liothyronine #Hypertension: On carvedilol and losartan #Depression: On sertraline DVT prophylaxis: Lovenox Disposition: Will benefit from placement. CODE STATUS: DNR CCA no intubation. # # Hypertension: #DVT prophylaxis: Lovenox CODE STATUS: full code Charges/Coding Visit Charges Inpatient E&M: 99247 Subs Hosp L2 12/07/24 1400 Montse Cabrera MD Cosigner Signature (if applicable): CC: ~ Signed [facility]03-16-2025 Consult note [facility] Medical Records Department [address] [place] [address] Consultation - Cardiology 12/07/24 1310 MR#: [id number] Acct: [id number] Name: JERO LEWIS Rep #:[id number] : 1945 79 From: Michelle harrell MD PCP: Dr. Argelia Darby, DO Status:ADM IN Location: [place] [address] Assessment & Plan Assessment/Plan (1) Elevated troponin: PLAN: Troponin is mildly elevated. Patient had coronary angiography in 2019 that showed mild nonobstructive CAD. She had a recent stress test that was negative for ischemia. She has not been having any anginal symptoms. No further workup required for this at this time. (2) Syncope: QUALIFIERS: Syncope type: unspecified Qualified Code(s): R55 - Syncope and collapse PLAN: Appears to be vestibular/neurally mediated. Does not appear to be cardiacin origin. Recommendmeclizine on a scheduled basis. Patient had responded well to this in the past. (3) Preoperative cardiovascular examination: PLAN: No further cardiac workup required prior to patellar surgery if surgery isfelt to be indicated. Patient is at low risk of perioperative cardiovascular events from the surgery. HPI Consult Data Date of Consult: 12/07/24 HPI Narrative Reason for Consultation: Syncope HPI Narrative: JERO LEWIS, is a 79 F who presents after syncope and fall. Patient was apparently trying to get groceries from her front porch. She bent down to get them and passed out and hit the concrete floor.She has contusion of face, laceration of left and also fracture of left patella. Patient has been having this dizziness for a while. She has seen cardiology as an outpatient for this. She underwent stress testing recently and it was negative for ischemia. She hada 2D echo which showed preserved EF no significant valvular abnormalities. She had Holter monitoring which revealed a 4 beat run of nonsustained V. tach and short run of SVT. She also had a heart cath in 2019 which revealed 40% stenosesin 2 vessels. Her dizziness is precipitated by certain movements of her head. She was on meclizine at 1 point which helped her symptoms. She was advised to take it as needed at that point. Apparently someone also told her that she doesnot need it and she has not been taking it. She denies any chest pain, shortness of breath etc. Her troponin is mildly elevated. [facility] Medical History Vertigo PVCs (premature ventricular contractions) SOB (shortness of breath) Sleep apnea Vitamin D deficiency RLS (restless legs syndrome) Pulmonary hypertension Myalgia MVP (mitral valve prolapse) Dizziness CAD (coronary artery disease) Vitamin B12 deficiency Fatigue Osteoarthritis Depression Debility Kimberlee disease History of endometrial biopsy COVID-19 Chronic hyponatremia Anxiety and depression Hypothyroidism Allergic rhinitis Hyperlipidemia HTN (hypertension) Home Medications ?Medication ?Instructions ?Recorded ?Last Taken ?Type atorvastatin 20 mg tablet 20 mg PO DAILY hld 07/28/23 07/30/23 History sodium chloride 1,000 mg soluble 1,000 mg PO BID suppl ement #60 tabs 07/31/23 07/31/23 Rx tablet acetaminophen 500 mg tablet 1,000 mg (2 x 500 mg) PO Q 6H PRN 08/08/23 Unknown Rx PRN Pain Score 1-10 #0 tabs meloxicam 15 mg tablet 15 mg PO DAILY #0 tabs Unknown Rx aspirin 81 mg tablet,delayed 81 mg PO DAILY #90 tabs 09/04/23 12/06/24 Rx release (Adult Aspirin Regimen) calcium 600 mg-D3 800 unit-mag 40 1 tab PO BID 3 12/06/24 History nx-emoy-dffn-joseph-boron chew tablet (Caltrate 600-D Plus Minerals) cyanocobalamin (vitamin B-12) 1,000 mcg PO QMONTH 08/24 11/16 Unknown History 1,000 mcg capsule olmesartan 40 mg tablet 40 mg PO DAILY see #90 ta bs 10/25/23 12/06/24 Rx ipratropium bromide 21 mcg (0.03 2 spray intranasal BI D 03/11/24 Unknown History %) nasal spray levocetirizine 5 mg tablet 5 mg PO QDAY 03/11/24 Unkno wn History Held on 12/06/24. Instructions: pt stopped sertraline 100 mg tablet 100 mg PO QDAY 03/11/2411/22 History levothyroxine 125 mcg tablet 112 mcg PO QDAY 06/10/24 Unknown History liothyronine 5 mcg tablet 5 mcg PO QDAY 12/04/2412/06 History metoprolol tartrate 50 mg tablet 50 mg PO BID #180 t abs 12/04/24 Unknown Rx spironolactone 25 mg tablet 25 mg PO DAILY #90 tabs 12/04/24 Unknown Rx carvedilol 3.125 mg tablet 3.125 mg PO BID 12/06/24 History Allergy/AdvReac Type Severity Reaction Status Date / Time propoxyphene HCl (From Allergy Nausea Verified 12/06/24 16:36 Darvon) atorvastatin AdvReac Intermediate myalgia Verified 12/06/24 16:36 codeine AdvReac Intermediate Nausea Verified 12/06/24 16:36 simvastatin AdvReac Intermediate Myalgia Verified 12/06/24 16:36 Family History Mother CVA (cerebral vascular accident) Father Kimberlee disease Son Cromwell disease Brother Heart disease Hypertension Daughter Lupus Arthritis Sister Melanoma Surgical History Hx of cataract extraction (~2020) Hx of cardiac catheterization (~09/09/20) History of tonsillectomy (~1958) Hx of tubal ligation (~1982) H/O cone biopsy of cervix H/O dilation and curettage Hx of myringotomy S/P thyroid biopsy Social History household members: none Smoking Status: Never smoker alcohol intake: never substance use type: does not use caffeine: Yes Type: coffee Number of servings: 2 Physical Exam Const alert and oriented x3 HEENT normocephalic Eyes no scleral icterus Resp normal respiratory effort Cardio regular rate Extremity no pedal edema Risk Stratification Risk Stratification Applicable: No Charges/Coding Visit Charges Inpatient E&M: 96218 Init Hosp L2 Objective Data Vital Signs: Vital Signs Temp Pulse Resp BP Pulse Ox O2 Del Method 97.7 F L 62 17 116/54 L 99 Room Air 12/07/24 09:01 12/07/24 09:01 12/07/24 09:01 12/07/24 09:01 12/07/24 09:01 12/07/24 09:01 Oxygen Delivery Method Room Air Weight: 176 lb 2.389 oz Body Mass Index (BMI) 28.4 Intake & Output: Intake and Output for Last 24 Hours 12/05/24 12/06/24 12/07/24 23:59 23:59 23:59 Intake Total 400 / 400 Output Total 300 / 300 Balance 100 / 100 Lab / Micro Data 12/07/24 04:41 12/07/24 04:41 Labs: Laboratory Results - last 24 hr 12/06/24 16:35: WBC 11.6 H, RBC 4.62, Hgb 13.6, Hct 40.5, MCV 87.7, MCH 29.4, MCHC 33.6, RDW Std Deviation 41.1, RDW Coeff of Alejo 12.9, Plt Count 279, MPV 9.2, Immature Gran % (Auto) 0.500, Neut % (Auto) 85.3 H, Lymph % (Auto) 8.6 L, Meigs % (Auto) 4.0, Eos % (Auto) 1.3, Baso % (Auto) 0.3, Absolute Neuts (auto) 9.9 H, Absolute Lymphs (auto) 0.99, Nucleated RBC % 0, Sodium 134, Potassium 4.3, Chloride 97 L, Carbon Dioxide 23.1, Anion Gap 14, BUN 16, Creatinine 0.96, Estim Creat Clear Calc 51.06, Est GFR (MDRD) Non-Af 60, BUN/Creatinine Ratio 17.1, Glucose 127 H, Calcium 9.5, Troponin T High Sens 108 H* 12/06/24 19:29: Troponin T Hi Sens 2 Hr 178 H* 12/06/24 20:27: Troponin T Hi Sens 2 Hr 184 H* 12/07/24 04:41: WBC 7.4, RBC 4.40, Hgb 12.9, Hct 39.0, MCV 88.6, MCH 29.3, MCHC 33.1, RDW Std Deviation 42.5, RDW Coeff of Alejo 13.0, Plt Count 263, MPV 9.7, Immature Gran % (Auto) 0.400, Neut % (Auto) 77.5 H, Lymph % (Auto) 13.1 L, Meigs % (Auto) 8.3, Eos % (Auto) 0.4, Baso % (Auto) 0.3, Absolute Neuts (auto) 5.7, Absolute Lymphs (auto) 0.97, Nucleated RBC % 0, PT 13.0, INR 1.0, Sodium 132 L, Potassium 4.2, Chloride 97 L, Carbon Dioxide 21.9, Anion Gap 13, BUN 19, Creatinine 0.93, Estim Creat Clear Calc 50.58, Est GFR (MDRD) Non-Af 62, BUN/Creatinine Ratio 20.6 H, Glucose 98, Calcium 9.3, Phosphorus 4.2, Magnesium 2.0, Total Bilirubin 0.68, Direct Bilirubin 0.29, AST 33 H, ALT 17, Alkaline Ph osphatase 66, Total Protein 6.3, Albumin 3.9, Globulin 2.5, Albumin/Globulin Ratio 1.6, TSH 1.180 Rhythm Strip Rhythm Strip: Being read as paced. However the patient does not have a pacemaker. Rate: 72 Ectopy: None Cardiology Labs/Tests 12/06/24 16:35: WBC 11.6 H, RBC 4.62, Hgb 13.6, Hct 40.5, MCV 87.7, MCH 29.4, MCHC 33.6, Plt Count 279, MPV 9.2, Immature Gran % (Auto) 0.500, Neut % (Auto) 85.3 H, Lymph % (Auto) 8.6 L, Meigs % (Auto) 4.0, Eos % (Auto) 1.3, Baso % (Auto)0.3, Absolute Neuts (auto) 9.9 H, Nucleated RBC % 0, Sodium 134, Potassium 4.3, Chloride 97 L, Carbon Dioxide 23.1, Anion Gap 14, BUN 16, Creatinine 0.96, Est GFR(MDRD) Non-Af 60, BUN/Creatinine Ratio 17.1, Glucose 127 H, Calcium 9.5 12/07/24 04:41: WBC 7.4, RBC 4.40, Hgb 12.9, Hct 39.0, MCV 88.6, MCH 29.3, MCHC 33.1, Plt Count 263, MPV 9.7, Immature Gran % (Auto) 0.400, Neut % (Auto) 77.5 H, Lymph % (Auto) 13.1 L, Meigs % (Auto) 8.3, Eos % (Auto) 0.4, Baso % (Auto) 0.3,Absolute Neuts (auto) 5.7, Nucleated RBC % 0, PT 13.0, INR 1.0, Sodium 132 L, Potassium 4.2, Chloride 97 L, Carbon Dioxide 21.9, Anion Gap 13, BUN 19, Creatinine 0.93, Est GFR (MDRD) Non-Af 62, BUN/Creatinine Ratio 20.6 H, Glucose 98, Calcium 9.3, Phosphorus 4.2, Magnesium 2.0, Total Bilirubin 0.68, Direct Bilirubin 0.29 Rhythm: EKG: ECHO: Stress Test: Cardiac Cath: PCI: CT Surgery: Holter monitor: EPS: PPM: CXR: Chest CT Scan: Radiography Diagnostic Testing: Radiology Impression Brain CT 12/06/24 16:41 IMPRESSION: No acute intracranial abnormality. Senescent changes. Reading Location: [facility] Cervical Spine CT 12/06/24 16:41 IMPRESSION: No evidence of acute cervical spine fracture. Demineralization does limit sensitivity One or more dose reduction techniques were used (e.g., Automated exposure control, adjustment of the mA and/or kV according to patient size, use of iterative reconstruction technique). Reading Location: [facility] Facial/Sinus 12/06/24 16:41 IMPRESSION: No evidence of acute facial fracture. Senescent changes. One or more dose reduction techniques were used (e.g., Automated exposure control, adjustment of the mA and/or kV according to patient size, use of iterative reconstruction technique). Reading Location: [facility] Chest X-Ray 12/06/24 17:10 IMPRESSION: No acute findings. Senescent changes. Mild cardiac enlargement. Reading Location: [facility] Knee X-Ray 12/06/24 17:10 IMPRESSION: Acute patellar fracture on background demineralization. Reading Location: [facility] 12/07/24 1317 Cosigner Signature (if applicable): CC: Dr. Argelia Darby, DO~ Signed [facility]03-16-2025 Consult note Author Luis Dozier [facility] Note Date/Time December 07, 2024 8:5 5am [facility] Medical Records Department [address] [place] [address] Consultation - Orthopedics 12/07/24 0843 MR#: [id number] Acct: [id number] Name: JERO LEWIS Rep #:[id number] : 1945 79 From: Luis Cowart PCP: Dr. Argelia Darby, Status:ADM IN Location: [facility] [id number] HPI Consult Data Date of Consult: 12/07/24 HPI Narrative HPI Narrative: JERO LEWIS, is a 79 F who presents today with left knee pain. Patient has extensive cardiac history and recently has been having episodes of fainting. Patient notes that yesterday she was transporting her grocery delivery from the front stoop to her kitchen and when she was leaning over and standing back up topick up groceries she had an episode of fainting similar to her previous episodes. She has been having these episodes for about a year now and is working extensively with cardiology. She has had a 24-hour Holter monitor and in speaking with the medicine service there seems to been some plan for cardiac catheterization. Ultimately, when she fell she hit her face and her left knee. She presented to the emergency department left knee pain was found to have a displaced patella fracture. She was placed in a knee immobilizer and admitted overnight as she was unable to ambulate at that point. Additionally, series of troponins performed on admission showed progressive elevation. She was admittedto the PCU. At baseline patient reports that she lives on her own. She does the majority ofher cooking and cleaning however her daughter comes from from out of town and helps her with some of the cleaning responsibilities. Her son orders her groceries and has them delivered to the home. [place] but her living quarters are on 1 floor with the bathroom and bedroom on the mainfloor. She does use a walker/rollator throughout the home, but does not use in the bathroom. [facility] Medical History Vertigo PVCs (premature ventricular contractions) SOB (shortness of breath) Sleep apnea Vitamin D deficiency RLS (restless legs syndrome) Pulmonary hypertension Myalgia MVP (mitral valve prolapse) Dizziness CAD (coronary artery disease) Vitamin B12 deficiency Fatigue Osteoarthritis Depression Debility Kimberlee disease History of endometrial biopsy COVID-19 Chronic hyponatremia Anxiety and depression Hypothyroidism Allergic rhinitis Hyperlipidemia HTN (hypertension) Home Medications ?Medication ?Instructions ?Recorded ?Last Taken ?Type atorvastatin 20 mg tablet 20 mg PO DAILY hld 07/28/23 07/30/23 History sodium chloride 1,000 mg soluble 1,000 mg PO BID suppl ement #60 tabs 07/31/23 07/31/23 Rx tablet acetaminophen 500 mg tablet 1,000 mg (2 x 500 mg) PO Q 6H PRN 08/08/23 Unknown Rx PRN Pain Score 1-10 #0 tabs meloxicam 15 mg tablet 15 mg PO DAILY #0 tabs Unknown Rx aspirin 81 mg tablet,delayed 81 mg PO DAILY #90 tabs 09/04/23 12/06/24 Rx release (Adult Aspirin Regimen) calcium 600 mg-D3 800 unit-mag 40 1 tab PO BID 3 12/06/24 History ha-slpk-pdug-joseph-boron chew tablet (Caltrate 600-D Plus Minerals) cyanocobalamin (vitamin B-12) 1,000 mcg PO QMONTH 08/24 11/16 Unknown History 1,000 mcg capsule olmesartan 40 mg tablet 40 mg PO DAILY see #90 ta bs 10/25/23 12/06/24 Rx ipratropium bromide 21 mcg (0.03 2 spray intranasal BI D 03/11/24 Unknown History %) nasal spray levocetirizine 5 mg tablet 5 mg PO QDAY 03/11/24 Unkno wn History Held on 12/06/24. Instructions: pt stopped sertraline 100 mg tablet 100 mg PO QDAY 03/11/2411/22 History levothyroxine 125 mcg tablet 112 mcg PO QDAY 06/10/24 Unknown History liothyronine 5 mcg tablet 5 mcg PO QDAY 12/04/2412/06 History metoprolol tartrate 50 mg tablet 50 mg PO BID #180 t abs 12/04/24 Unknown Rx spironolactone 25 mg tablet 25 mg PO DAILY #90 tabs 12/04/24 Unknown Rx carvedilol 3.125 mg tablet 3.125 mg PO BID 12/06/24 History Allergy/AdvReac Type Severity Reaction Status Date / Time propoxyphene HCl (From Allergy Nausea Verified 12/06/24 16:36 Darvon) atorvastatin AdvReac Intermediate myalgia Verified 12/06/24 16:36 codeine AdvReac Intermediate Nausea Verified 12/06/24 16:36 simvastatin AdvReac Intermediate Myalgia Verified 12/06/24 16:36 Family History Mother CVA (cerebral vascular accident) Father Kimebrlee disease Son Kimberlee disease Brother Heart disease Hypertension Daughter Lupus Arthritis Sister Melanoma Surgical History Hx of cataract extraction (~2020) Hx of cardiac catheterization (~09/09/20) History of tonsillectomy (~1958) Hx of tubal ligation (~1982) H/O cone biopsy of cervix H/O dilation and curettage Hx of myringotomy S/P thyroid biopsy Social History household members: none Smoking Status: Never smoker alcohol intake: never substance use type: does not use caffeine: Yes Type: coffee Number of servings: 2 ROS Constitutional Constitutional: Reports as per HPI Eyes Eyes: Reports as per HPI ENT HEENT: Reports other Details: Facial contusions Cardiovascular Cardiovascular: Reports as per HPI Respiratory/Chest Respiratory/Chest: Reports as per HPI Gastrointestinal Gastrointestinal: Reports as per HPI Genitourinary Genitourinary: Reports as per HPI Musculoskeletal Musculoskeletal: Reports as per HPI Integumentary Integumentary: Reports as per HPI Neurologic Neurologic: Reports other Details: Reports some occasional confusion Psychiatric Psychiatric: Reports as per HPI Endocrine Endocrinology: Reports as per HPI Hematologic/Lymphatic Hematologic/Lymphatic: Reports other Details: History of Kimberlee disease Allergic/Immunologic Allergic/Immunologic: Reports as per HPI Vital Signs Vital Signs Vital Signs: 12/06/24 16:31 12/06/24 16:36 12/06/24 17:30 Temperature 98.1 F Temperature Source Temporal Pulse Rate 82 81 Respiratory Rate 22 H Respiratory Effort Normal Non-Labored Respiratory Depth Respiratory Pattern Blood Pressure 162/88 H 162/106 H Blood Pressure Mean 112 124 Blood Pressure Source Blood Pressure Position Blood Pressure Location Pulse Ox 100 100 Oxygen Delivery Method Room Air Room Air 12/06/24 18:00 12/06/24 19:00 12/06/24 19:02 Temperature 98.1 F Temperature Source Pulse Rate 65 76 86 Respiratory Rate 18 18 Respiratory Effort Respiratory Depth Respiratory Pattern Blood Pressure 136/64 H 155/84 H 142/91 H Blood Pressure Mean 88 107 108 Blood Pressure Source Blood Pressure Position Blood Pressure Location Pulse Ox 93 96 100 Oxygen Delivery Method 12/06/24 19:45 12/06/24 22:00 12/07/24 04:38 Temperature 98 F Temperature Source Oral Pulse Rate 76 Respiratory Rate 19 H Respiratory Effort Normal Normal Respiratory Depth Normal Normal Respiratory Pattern Normal Normal Blood Pressure 138/84 H Blood Pressure Mean 102 Blood Pressure Source Monitor Blood Pressure Position Semi-Fowlers Blood Pressure Location Left Arm Pulse Ox 98 Oxygen Delivery Method Room Air Room Air Room Air Weight Weight: 176 lb 2.389 oz Body Mass Index (BMI) 28.4 Physical Exam Const alert and oriented x3 HEENT HEENT Narrative: Facial contusions Eyes PERRL Neck no JVD Resp normal respiratory effort Cardio Cardio Narrative: 2+ distal pulses GI non-distended Extremity Extremity Narrative: Left lower extremity: Patient has abrasions on the knee. Effusion around the left knee. Patient does have an intact extensor mechanism. Unable to perform afull straight leg raise however with her thigh elevated patient is able to maintain knee extension against gravity. Positive dorsiflexion EHL plantarflexion. She does have some limited passive dorsiflexion. 2+ DP pulse. Skin Skin Narrative: Facial contusions, abrasion over anterior left knee. Neuro CN's II-XII intact bilaterally Psych affect normal Medical Records Data Attestation: I reviewed the patient's medical records Lab / Micro Data Attestation: I reviewed the patient's lab results. 12/07/24 04:41 12/07/24 04:41 Labs: Laboratory Results - last 24 hr 12/06/24 16:35: WBC 11.6 H, RBC 4.62, Hgb 13.6, Hct 40.5, MCV 87.7, MCH 29.4, MCHC 33.6, RDW Std Deviation 41.1, RDW Coeff of Alejo 12.9, Plt Count 279, MPV 9.2, Immature Gran % (Auto) 0.500, Neut % (Auto) 85.3 H, Lymph % (Auto) 8.6 L, Meigs % (Auto) 4.0, Eos % (Auto) 1.3, Baso % (Auto) 0.3, Absolute Neuts (auto) 9.9 H, Absolute Lymphs (auto) 0.99, Nucleated RBC % 0, Sodium 134, Potassium 4.3, Chloride 97 L, Carbon Dioxide 23.1, Anion Gap 14, BUN 16, Creatinine 0.96, Estim Creat Clear Calc 51.06, Est GFR (MDRD) Non-Af 60, BUN/Creatinine Ratio 17.1, Glucose 127 H, Calcium 9.5, Troponin T High Sens 108 H* 12/06/24 19:29: Troponin T Hi Sens 2 Hr 178 H* 12/06/24 20:27: Troponin T Hi Sens 2 Hr 184 H* 12/07/24 04:41: WBC 7.4, RBC 4.40, Hgb 12.9, Hct 39.0, MCV 88.6, MCH 29.3, MCHC 33.1, RDW Std Deviation 42.5, RDW Coeff of Alejo 13.0, Plt Count 263, MPV 9.7, Immature Gran % (Auto) 0.400, Neut % (Auto) 77.5 H, Lymph % (Auto) 13.1 L, Meigs % (Auto) 8.3, Eos % (Auto) 0.4, Baso % (Auto) 0.3, Absolute Neuts (auto) 5.7, Absolute Lymphs (auto) 0.97, Nucleated RBC % 0, PT 13.0, INR 1.0, Sodium 132 L, Potassium 4.2, Chloride 97 L, Carbon Dioxide 21.9, Anion Gap 13, BUN 19, Creatinine 0.93, Estim Creat Clear Calc 50.58, Est GFR (MDRD) Non-Af 62, BUN/Creatinine Ratio 20.6 H, Glucose 98, Calcium 9.3, Phosphorus 4.2, Magnesium 2.0, Total Bilirubin 0.68, Direct Bilirubin 0.29, AST 33 H, ALT 17, Alkaline Phosphatase 66, Total Protein 6.3, Albumin 3.9, Globulin 2.5, Albumin/Globulin Ratio 1.6, TSH 1.180 Micro: Troponins progressively elevated Rhythm Strip Rhythm Strip: Being read as paced. However the patient does not have a pacemaker. Rate: 72 Ectopy: None Imaging Radiology Impression Brain CT 12/06/24 16:41 IMPRESSION: No acute intracranial abnormality. Senescent changes. Reading Location: [facility] Cervical Spine CT 12/06/24 16:41 IMPRESSION: No evidence of acute cervical spine fracture. Demineralization does limit sensitivity One or more dose reduction techniques were used (e.g., Automated exposure control, adjustment of the mA and/or kV according to patient size, use of iterative reconstruction technique). Reading Location: [facility] Facial/Sinus 12/06/24 16:41 IMPRESSION: No evidence of acute facial fracture. Senescent changes. One or more dose reduction techniques were used (e.g., Automated exposure control, adjustment of the mA and/or kV according to patient size, use of iterative reconstruction technique). Reading Location: [facility] Chest X-Ray 12/06/24 17:10 IMPRESSION: No acute findings. Senescent changes. Mild cardiac enlargement. Reading Location: [facility] Knee X-Ray 12/06/24 17:10 IMPRESSION: Acute patellar fracture on background demineralization. Reading Location: [facility] Knee images independently reviewed. Minimally displaced transverse patella fracture. Assessment & Plan Assessment/Plan (1) Closed transverse fracture of left patella: PLAN: Natural history of the disease process and treatment options were discussed the patient. After thorough discussion with the patient on her baseline level of function and her medical history after discussing open reduction internal fixation versus nonoperative treatment I recommended nonoperative treatment. This is also in conjunction with the fact that her extensor mechanism is currently intact against gravity. Ultimately, patient is receiving a cardiology consultation while she is in house. I have described herthe nonoperative plan at this time would be 50% weightbearing in the knee immobilizer. Therapy to mobilize the patient. Patient will likely need inpatient rehabilitation or nursing home as she acclimates to weightbearing restrictions and the knee immobilizer. She will need to be in the knee immobilizer for a total of 6 weeks which point we will begin range of motion therapies and eventual strengthening. May begin early range of motion if appropriate. Medicine doctor was also at bedside was able to discuss her medical history and all parties agree on the treatment plan in place at this time. Patient understands nonoperative means can fail and surgical interventionmay be indicated in the future. Also any surgical decisions will be based on patient's cardiac health and appropriateness of surgical intervention. Please call with any further questions or concerns. Would like to see the patient on aweekly basis as an outpatient when she is discharged. If she [place] in [place] [facility] can follow x-rays on a weekly basis plan on weekly 2 views of the knee AP and lateral and contact physician to review results. Knee must remain in extension and the knee immobilizer until follow-up. [facility] Office: (2) Elevated troponin: (3) Syncope: (4) NSVT (nonsustained ventricular tachycardia): 12/07/24 7247 <Electronically signed by Luis Dozier MD> Cosigner Signature (if applicable): CC: Dr. Argelia Darby, DO~ Signed [facility] Work Phone: [phone] Consult note [facility] Medical Records Department [address] [place] [address] Consultation - Orthopedics 12/07/24 0843 MR#: [id number] Acct: [id number] Name: JERO LEWIS Rep #:[id number] : 1945 79 From: Luis Cowart PCP: Dr. Argelia Darby, Status:ADM IN Location: [place] [address] HPI Consult Data Date of Consult: 12/07/24 HPI Narrative HPI Narrative: JERO LEWIS, is a 79 F who presents today with left knee pain. Patient has extensive cardiac history and recently has been having episodes of fainting. Patient notes that yesterday she was transporting her grocery delivery from the front stoop to her kitchen and when she was leaning over and standing back up topick up groceries she had an episode of fainting similar to her previous episodes. She has been having these episodes for about a year now and is working extensively with cardiology. She has had a 24-hour Holter monitor and in speaking with the medicine service there seems to been some plan for cardiac catheterization. Ultimately, when she fell she hit her face and her left knee. She presented to the emergency department left knee pain was found to have a displaced patella fracture. She was placed in a knee immobilizer and admitted overnight as she was unable to ambulate at thatpoint. Additionally, series of troponins performed on admission showed progressive elevation. She was admittedto the PCU. At baseline patient reports that she lives on her own. She does the majority ofher cooking and cleaning however her daughter comes from from out of town and helps her with some of the cleaning responsibilities. Her son orders her groceries and has them delivered to the home. She [place] but her living quarters are on 1 floor with the bathroom and bedroom on the mainfloor. She does use a walker/rollator throughout the home, but does not use in the bathroom. [facility] Medical History Vertigo PVCs (premature ventricular contractions) SOB (shortness of breath) Sleep apnea Vitamin D deficiency RLS (restless legs syndrome) Pulmonary hypertension Myalgia MVP (mitral valve prolapse) Dizziness CAD (coronary artery disease) Vitamin B12 deficiency Fatigue Osteoarthritis Depression Debility Kimberlee disease History of endometrial biopsy COVID-19 Chronic hyponatremia Anxiety and depression Hypothyroidism Allergic rhinitis Hyperlipidemia HTN (hypertension) Home Medications ?Medication ?Instructions ?Recorded ?Last Taken ?Type atorvastatin 20 mg tablet 20 mg PO DAILY hld 07/28/23 07/30/23 History sodium chloride 1,000 mg soluble 1,000 mg PO BID suppl ement #60 tabs 07/31/23 07/31/23 Rx tablet acetaminophen 500 mg tablet 1,000 mg (2 x 500 mg) PO Q 6H PRN 08/08/23 Unknown Rx PRN Pain Score 1-10 #0 tabs meloxicam 15 mg tablet 15 mg PO DAILY #0 tabs Unknown Rx aspirin 81 mg tablet,delayed 81 mg PO DAILY #90 tabs 09/04/23 12/06/24 Rx release (Adult Aspirin Regimen) calcium 600 mg-D3 800 unit-mag 40 1 tab PO BID 3 12/06/24 History [id number]-bcvl-mhbp-joseph-boron chew tablet (Caltrate 600-D Plus Minerals) cyanocobalamin (vitamin B-12) 1,000 mcg PO QMONTH 08/24 11/16 Unknown History 1,000 mcg capsule olmesartan 40 mg tablet 40 mg PO DAILY see #90 ta bs 10/25/23 12/06/24 Rx ipratropium bromide 21 mcg (0.03 2 spray intranasal BI D 03/11/24 Unknown History %) nasal spray levocetirizine 5 mg tablet 5 mg PO QDAY 03/11/24 Unkno wn History Held on 12/06/24. Instructions: pt stopped sertraline 100 mg tablet 100 mg PO QDAY 03/11/2411/22 History levothyroxine 125 mcg tablet 112 mcg PO QDAY 06/10/24 Unknown History liothyronine 5 mcg tablet 5 mcg PO QDAY 12/04/2412/06 History metoprolol tartrate 50 mg tablet 50 mg PO BID #180 t abs 12/04/24 Unknown Rx spironolactone 25 mg tablet 25 mg PO DAILY #90 tabs 12/04/24 Unknown Rx carvedilol 3.125 mg tablet 3.125 mg PO BID 12/06/24 History Allergy/AdvReac Type Severity Reaction Status Date / Time propoxyphene HCl (From Allergy Nausea Verified 12/06/24 16:36 Darvon) atorvastatin AdvReac Intermediate myalgia Verified 12/06/24 16:36 codeine AdvReac Intermediate Nausea Verified 12/06/24 16:36 simvastatin AdvReac Intermediate Myalgia Verified 12/06/24 16:36 Family History Mother CVA (cerebral vascular accident) Father Kimberlee disease Son Cromwell disease Brother Heart disease Hypertension Daughter Lupus Arthritis Sister Melanoma Surgical History Hx of cataract extraction (~2020) Hx of cardiac catheterization (~09/09/20) History of tonsillectomy (~1958) Hx of tubal ligation (~1982) H/O cone biopsy of cervix H/O dilation and curettage Hx of myringotomy S/P thyroid biopsy Social History household members: none Smoking Status: Never smoker alcohol intake: never substance use type: does not use caffeine: Yes Type: coffee Number of servings: 2 ROS Constitutional Constitutional: Reports as per HPI Eyes Eyes: Reports as per HPI ENT HEENT: Reports other Details: Facial contusions Cardiovascular Cardiovascular: Reports as per HPI Respiratory/Chest Respiratory/Chest: Reports as per HPI Gastrointestinal Gastrointestinal: Reports as per HPI Genitourinary Genitourinary: Reports as per HPI Musculoskeletal Musculoskeletal: Reports as per HPI Integumentary Integumentary: Reports as per HPI Neurologic Neurologic: Reports other Details: Reports some occasional confusion Psychiatric Psychiatric: Reports as per HPI Endocrine Endocrinology: Reports as per HPI Hematologic/Lymphatic Hematologic/Lymphatic: Reports other Details: History of Kimberlee disease Allergic/Immunologic Allergic/Immunologic: Reports as per HPI Vital Signs Vital Signs Vital Signs: 12/06/24 16:31 12/06/24 16:36 12/06/24 17:30 Temperature 98.1 F Temperature Source Temporal Pulse Rate 82 81 Respiratory Rate 22 H Respiratory Effort Normal Non-Labored Respiratory Depth Respiratory Pattern Blood Pressure 162/88 H 162/106 H Blood Pressure Mean 112 124 Blood Pressure Source Blood Pressure Position Blood Pressure Location Pulse Ox 100 100 Oxygen Delivery Method Room Air Room Air 12/06/24 18:00 12/06/24 19:00 12/06/24 19:02 Temperature 98.1 F Temperature Source Pulse Rate 65 76 86 Respiratory Rate 18 18 Respiratory Effort Respiratory Depth Respiratory Pattern Blood Pressure 136/64 H 155/84 H 142/91 H Blood Pressure Mean 88 107 108 Blood Pressure Source Blood Pressure Position Blood Pressure Location Pulse Ox 93 96 100 Oxygen Delivery Method 12/06/24 19:45 12/06/24 22:00 12/07/24 04:38 Temperature 98 F Temperature Source Oral Pulse Rate 76 Respiratory Rate 19 H Respiratory Effort Normal Normal Respiratory Depth Normal Normal Respiratory Pattern Normal Normal Blood Pressure 138/84 H Blood Pressure Mean 102 Blood Pressure Source Monitor Blood Pressure Position Semi-Fowlers Blood Pressure Location Left Arm Pulse Ox 98 Oxygen Delivery Method Room Air Room Air Room Air Weight Weight: 176 lb 2.389 oz Body Mass Index (BMI) 28.4 Physical Exam Const alert and oriented x3 HEENT HEENT Narrative: Facial contusions Eyes PERRL Neck no JVD Resp normal respiratory effort Cardio Cardio Narrative: 2+ distal pulses GI non-distended Extremity Extremity Narrative: Left lower extremity: Patient has abrasions on the knee. Effusion around the left knee. Patient does have an intact extensor mechanism. Unable to perform afull straight leg raise however with her thigh elevated patient is able to maintain knee extension against gravity. Positive dorsiflexion EHL gilbert ntarflexion. She does have some limited passive dorsiflexion. 2+ DP pulse. Skin Skin Narrative: Facial contusions, abrasion over anterior left knee. Neuro CN's II-XII intact bilaterally Psych affect normal Medical Records Data Attestation: I reviewed the patient's medical records Lab / Micro Data Attestation: I reviewed the patient's lab results. 12/07/24 04:41 12/07/24 04:41 Labs: Laboratory Results - last 24 hr 12/06/24 16:35: WBC 11.6 H, RBC 4.62, Hgb 13.6, Hct 40.5, MCV 87.7, MCH 29.4, MCHC 33.6, RDW Std Deviation 41.1, RDW Coeff of Alejo 12.9, Plt Count 279, MPV 9.2, Immature Gran % (Auto) 0.500, Neut % (Auto) 85.3 H, Lymph % (Auto) 8.6 L, Meigs % (Auto) 4.0, Eos % (Auto) 1.3, Baso % (Auto) 0.3, Absolute Neuts (auto) 9.9 H, Absolute Lymphs (auto) 0.99, Nucleated RBC % 0, Sodium 134, Potassium 4.3, Chloride 97 L, Carbon Dioxide 23.1, Anion Gap 14, BUN 16, Creatinine 0.96, Estim Creat Clear Calc 51.06, Est GFR (MDRD) Non-Af 60, BUN/Creatinine Ratio 17.1, Glucose 127 H, Calcium 9.5, Troponin T High Sens 108 H* 12/06/24 19:29: Troponin T Hi Sens 2 Hr 178 H* 12/06/24 20:27: Troponin T Hi Sens 2 Hr 184 H* 12/07/24 04:41: WBC 7.4, RBC 4.40, Hgb 12.9, Hct 39.0, MCV 88.6, MCH 29.3, MCHC 33.1, RDW Std Deviation 42.5, RDW Coeff of Alejo 13.0, Plt Count 263, MPV 9.7, Immature Gran % (Auto) 0.400, Neut % (Auto) 77.5 H, Lymph % (Auto) 13.1 L, Meigs % (Auto) 8.3, Eos % (Auto) 0.4, Baso % (Auto) 0.3, Absolute Neuts (auto) 5.7, Absolute Lymphs (auto) 0.97, Nucleated RBC % 0, PT 13.0, INR 1.0, Sodium 132 L, Potassium 4.2, Chloride 97 L, Carbon Dioxide 21.9, Anion Gap 13, BUN 19, Creatinine 0.93, Estim Creat Clear Calc 50.58, Est GFR (MDRD) Non-Af 62, BUN/Creatinine Ratio 20.6 H, Glucose 98, Calcium 9.3, Phosphorus 4.2, Magnesium 2.0, Total Bilirubin 0.68, Direct Bilirubin 0.29, AST 33 H, ALT 17, Alkaline Ph osphatase 66, Total Protein 6.3, Albumin 3.9, Globulin 2.5, Albumin/Globulin Ratio 1.6, TSH 1.180 Micro: Troponins progressively elevated Rhythm Strip Rhythm Strip: Being read as paced. However the patient does not have a pacemaker. Rate: 72 Ectopy: None Imaging Radiology Impression Brain CT 12/06/24 16:41 IMPRESSION: No acute intracranial abnormality. Senescent changes. Reading Location: [facility] Cervical Spine CT 12/06/24 16:41 IMPRESSION: No evidence of acute cervical spine fracture. Demineralization does limit sensitivity One or more dose reduction techniques were used (e.g., Automated exposure control, adjustment of the mA and/or kV according to patient size, use of iterative reconstruction technique). Reading Location: [facility] Facial/Sinus 12/06/24 16:41 IMPRESSION: No evidence of acute facial fracture. Senescent changes. One or more dose reduction techniques were used (e.g., Automated exposure control, adjustment of the mA and/or kV according to patient size, use of iterative reconstruction technique). Reading Location: [facility] Chest X-Ray 12/06/24 17:10 IMPRESSION: No acute findings. Senescent changes. Mild cardiac enlargement. Reading Location: [facility] Knee X-Ray 12/06/24 17:10 IMPRESSION: Acute patellar fracture on background demineralization. Reading Location: [facility] Knee images independently reviewed. Minimally displaced transverse patella fracture. Assessment & Plan Assessment/Plan (1) Closed transverse fracture of left patella: PLAN: Natural history of the disease process and treatment options were discussed the patient. After thorough discussion with the patient on her baseline level of function and her medical history after discussing open reduction internal fixation versus nonoperative treatment I recommended nonoperative treatment. This is also in conjunction with the fact that her extensor mechanism is currently intact against gravity. Ultimately, patient is receiving a cardiology consultation while she is in house. I have described herthe nonoperative plan at this time would be 50% weightbearing in the knee imm obilizer. Therapy to mobilize the patient. Patient will likely need inpatient rehabilitation or nursing home as she acclimates to weightbearing restrictions and the knee immobilizer. She will needto be in the knee immobilizer for a total of 6 weeks which point we will begin range of motion therapies and eventual strengthening. May begin early range of motion if appropriate. Medicine doctor was also at bedside was able to discuss her medical history and all parties agree on the treatment plan in place at this time. Patient understands nonoperative means can fail and surgical interventionmay be indicated in the future. Also any surgical decisions will be based on patient's cardiac health and appropriateness of surgical intervention. Please call with any further questions or concerns. Would like to see the patient on aweekly basis as an outpatient when she is discharged. [facility] [place] can follow x-rays on a weekly basis plan on weekly 2 views of the knee AP and lateral and contact physician to review results. Knee must remain in extension and the knee immobilizer until follow-up. [facility] Office: (2) Elevated troponin: (3) Syncope: (4) NSVT (nonsustained ventricular tachycardia): 12/07/24 0855 Cosigner Signature (if applicable): CC: Dr. Argelia Darby, ~ Signed [facility]03-16-2025 Discharge summary Author Ritachristina Nowak [facility] Note Date/Time December 06, 2024 10: 12pm [facility] Medical Records Department [address] [place] [address] Emergency Department Summary 12/06/24 MR#: [id number] Acct: [id number] Name: JERO LEWIS Rep #:[id number] : 1945 79 From: Rita GAMING PCP: Dr. Argelia Darby, Status:ADM IN Location: [facility] [id number] HPI <MEKHI Raza - Last Filed: 12/06/24 18:48> HPI - Fall History of Present Illness Chief Complaint: Fall Narrative Narrative: 79-year-old female with PMH of HTN, HLD, CAD states she has groceries delivered to her porch and she was on her second trip out and bent over when she must havepassed out and fell striking her face on the concrete porch. She denies preceding dizziness or lightheadedness. She states she is supposed to move slowly because this has happened to her before. Her neighbor was outside so she yelled for help and he got her cell phone to call her son. When he arrived theywere able to get her into a wheelchair she has in the home and she was brought in by EMS who placed a C- collar. Patient's main complaint is left knee pain. She denies headache, visual changes, or nausea or vomiting. She thinks she may be on a blood thinner but does not know the name or reason. [facility] <MEKHI Raza - Last Filed: 12/06/24 18:48> [facility] Medical History Allergic rhinitis Anxiety and depression CAD (coronary artery disease) Cromwell disease Chronic hyponatremia COVID-19 Debility Depression Dizziness Fatigue History of endometrial biopsy HTN (hypertension) Hyperlipidemia Hypothyroidism MVP (mitral valve prolapse) Myalgia Osteoarthritis Pulmonary hypertension PVCs (premature ventricular contractions) RLS (restless legs syndrome) Sleep apnea SOB (shortness of breath) Vertigo Vitamin B12 deficiency Vitamin D deficiency Home Medications ?Medication ?Instructions ?Recorded ?Last Taken ?Type atorvastatin 20 mg tablet 20 mg PO DAILY hld 07/28/23 07/30/23 History sodium chloride 1,000 mg soluble 1,000 mg PO BID suppl ement #60 tabs 07/31/23 07/31/23 Rx tablet acetaminophen 500 mg tablet 1,000 mg (2 x 500 mg) PO Q 6H PRN 08/08/23 Unknown Rx PRN Pain Score 1-10 #0 tabs meloxicam 15 mg tablet 15 mg PO DAILY #0 tabs Unknown Rx aspirin 81 mg tablet,delayed 81 mg PO DAILY #90 tabs 09/04/23 12/06/24 Rx release (Adult Aspirin Regimen) calcium 600 mg-D3 800 unit-mag 40 1 tab PO BID 3 12/06/24 History ui-zlag-llcr-joseph-boron chew tablet (Caltrate 600-D Plus Minerals) cyanocobalamin (vitamin B-12) 1,000 mcg PO QMONTH 08/24 11/16 Unknown History 1,000 mcg capsule olmesartan 40 mg tablet 40 mg PO DAILY see #90 ta bs 10/25/23 12/06/24 Rx ipratropium bromide 21 mcg (0.03 2 spray intranasal BI D 03/11/24 Unknown History %) nasal spray levocetirizine 5 mg tablet 5 mg PO QDAY 03/11/24 Unkno wn History Held on 12/06/24. Instructions: pt stopped sertraline 100 mg tablet 100 mg PO QDAY 03/11/2411/22 History levothyroxine 125 mcg tablet 112 mcg PO QDAY 06/10/24 Unknown History liothyronine 5 mcg tablet 5 mcg PO QDAY 12/04/2412/06 History metoprolol tartrate 50 mg tablet 50 mg PO BID #180 t abs 12/04/24 Unknown Rx spironolactone 25 mg tablet 25 mg PO DAILY #90 tabs 12/04/24 Unknown Rx carvedilol 3.125 mg tablet 3.125 mg PO BID 12/06/24 History Allergy/AdvReac Type Severity Reaction Status Date / Time propoxyphene HCl (From Allergy Nausea Verified 12/06/24 16:36 Darvon) atorvastatin AdvReac Intermediate myalgia Verified 12/06/24 16:36 codeine AdvReac Intermediate Nausea Verified 12/06/24 16:36 simvastatin AdvReac Intermediate Myalgia Verified 12/06/24 16:36 Family History Mother CVA (cerebral vascular accident) Father Cromwell disease Son Kimberlee disease Brother Heart disease Hypertension Daughter Lupus Arthritis Sister Melanoma Surgical History H/O cone biopsy of cervix H/O dilation and curettage History of tonsillectomy (~1958) Hx of cardiac catheterization (~09/09/20) Hx of cataract extraction (~2020) Hx of myringotomy Hx of tubal ligation (~1982) S/P thyroid biopsy Social History household members: none Smoking Status: Never smoker alcohol intake: never substance use type: does not use caffeine: Yes Type: coffee Number of servings: 2 ROS <MEKHI Raza - Last Filed: 12/06/24 18:48> ROS ED ROS Narrative Constitutional: Negative for fever, chills, malaise. CVS: Negative for chest pain. Respiratory: Negative for shortness of breath. GI: Negative for nausea, vomiting Neuro: Negative for headache. EXAM <MEKHI Raza - Last Filed: 12/06/24 18:48> Physical Exam Narrative Exam Narrative: CONST: Patient sitting in no acute distress. EYES: Normal inspection. PERRL, EOMI. HEAD: Small abrasion right frontal scalp, bruising and swelling on right upper eyelid. 2 small linear lacerations and dried blood on right upper lip does not cross vermilion border. No raccoon eyes or Johnson sign, no epistaxis or nasal septal hematoma, no CSF otorrhea or rhinorrhea. No facial bone tenderness or deformity. NECK: C-collar on. No midline tenderness or step-offs. RESP: No respiratory distress, CTAB. Chest wall nontender. CVS: Regular rate and rhythm, no murmur, no gallop. ABD: Soft and nontender, no guarding or rebound, nondistended. Back: Normal inspection, no midline tenderness. EXTREMITIES: Bilateral upper extremities appear normal, full range of motion, notenderness, 2+ radial pulses. 3 cm laceration on right palm over the fifth MCP palmar aspect extending around to the dorsal surface. No tendon injury. Bilateral lower extremities notable for left knee swelling with abrasion and tenderness. Very limited range of motion secondary to pain. 5/5 dorsiflexion and plantarflexion. Normal sensation. 2+ DP pulses. NEURO: Alert and answering questions appropriately. PSYCH: Normal affect. Const Vital Signs: 12/06/24 16:31 12/06/24 16:36 12/06/24 17:30 Temperature 98.1 F Temperature Source Temporal Pulse Rate 82 81 Respiratory Rate 22 H Respiratory Effort Normal Non-Labored Blood Pressure 162/88 H 162/106 H Blood Pressure Mean 112 124 Pulse Ox 100 100 Oxygen Delivery Method Room Air Room Air 12/06/24 18:00 Temperature Temperature Source Pulse Rate 65 Respiratory Rate Respiratory Effort Blood Pressure 136/64 H Blood Pressure Mean 88 Pulse Ox 93 Oxygen Delivery Method <Dr. Orville Cortez MD - Last Filed: 12/06/24 19:23> Physical Exam Const Vital Signs: 12/06/24 16:31 12/06/24 16:36 12/06/24 17:30 Temperature 98.1 F Temperature Source Temporal Pulse Rate 82 81 Respiratory Rate 22 H Respiratory Effort Normal Non-Labored Blood Pressure 162/88 H 162/106 H Blood Pressure Mean 112 124 Pulse Ox 100 100 Oxygen Delivery Method Room Air Room Air 12/06/24 18:00 Temperature Temperature Source Pulse Rate 65 Respiratory Rate Respiratory Effort Blood Pressure 136/64 H Blood Pressure Mean 88 Pulse Ox 93 Oxygen Delivery Method MDM <MEKHI Raza - Last Filed: 12/06/24 18:48> [facility] Narrative Medical decision making narrative: Differential includes but not limited to head injury, intracranial hemorrhage, orthostatic hypotension, cardiac etiology 79-year-old female bent over to get groceries and had a syncopal episode and fell injuring her face, right hand, and left knee. She is awake and alert. GCS15. Vital signs stable. She has facial contusions and a small lip laceration that does not require repair. C-collar in place. No cervical or thoracic or lumbar tenderness is present. Chest stable, nontender. Heart and lung sounds normal. Abdomen soft and nontender. Pelvis stable. She is moving all extremities but left knee motion is significantly limited due to pain and swelling. Distal pulses intact. CT scans of the brain, cervical spine, facial bones are all negative. Chest x-ray negative. Left knee shows acute. Patellarfracture. This was discussed with Dr. Dozier as it will need surgical treatment. Syncopal workup including labs and EKG ordered. WBC is 11.6. Hemoglobin normal at 13.6. Chemistry panel overall unremarkable. EKG sinus rhythm with occasional PVCs. Nonspecific changes. Troponin is 108 however patient has no chest pain so I do not suspect ACS. Serial troponins are ordered. Patient's wounds were cleansed, right hand laceration repaired with 6 sutures, and pain controlled with IV morphine and Zofran x 1. Tetanus update given. I discussed case with the hospitalist for admission. I have personally performed a face to face assessment of the patient and have reviewed the MEJIA Note. I performed a substantive portion of the visit including all aspects of the following. My gutierrez findings include: History is [79-year-old female went outside to hand picker packages when she bent over she got lightheaded passed out and fell hitting her right side of her face and lip, lacerating her hand and injuring her left knee. Prior to the incident said she felt fine. States when she bends over she has to take her time her she gets lightheaded and has passed out before. Denies any recent illness.] Exam is [well-appearing 79-year-old female. Vital signs are stable afebrile. Pulse ox 100% on room air. She does not look septic or toxic. H EENT exam pupils round reactive light. She is abrasion and contusion right side of her face and her right upper and lower lip. She has some injuries to the right upper front tooth and right incisor. Lips are swollen. There is no laceration repair. There is bruising. She can open and close her mouth. Neck nontender. Trachea midline. Lungs clear to auscultation bilaterally. Heart regular rate and rhythm rate about 80. Chest wall and ribs nontender. Abdomen soft nontender. Pelvic girdle intact. No shortening or rotation either hip. Left knee is bruised. She has limited range of motion of her left knee due to pain and swelling. No bony deformity. Left lower leg ankle and foot is nontender. Right lower extremity is nontender. Normal dorsi plantarflexion. Upper extremities she is a laceration to her right hand along the metacarpal phalangeal skin crease. It is about 1 to 2 inches in length only repaired. She has normal flexion extension of both hands. No bony deformity or bony tenderness. Wrists forearms elbows and shoulders are nontender. Neurologically she is awake and alert no focal motor deficits. Answering questions following commands.] Medical Decision Making [79-year-old had a syncopal event most likely from being orthostatic will have that workup plus CTs of her face and head and neck. X-ray of her left knee which showed a displaced patella fracture which will need to be repaired. I have already spoken to orthopedics Dr. Ghulam Dozier about that. She will be admitted to the hospitalist.] Other additions or changes: [None] Lab Data Labs: Laboratory Results - last 24 hr 12/06/24 16:35 WBC 11.6 H RBC 4.62 Hgb 13.6 Hct 40.5 MCV 87.7 MCH 29.4 MCHC 33.6 RDW Std Deviation 41.1 RDW Coeff of Alejo 12.9 Plt Count 279 MPV 9.2 Immature Gran % (Auto) 0.500 Neut % (Auto) 85.3 H Lymph % (Auto) 8.6 L Meigs % (Auto) 4.0 Eos % (Auto) 1.3 Baso % (Auto) 0.3 Absolute Neuts (auto) 9.9 H Absolute Lymphs (auto) 0.99 Nucleated RBC % 0 Sodium 134 Potassium 4.3 Chloride 97 L Carbon Dioxide 23.1 Anion Gap 14 BUN 16 Creatinine 0.96 Estim Creat Clear Calc 51.06 Est GFR (MDRD) Non-Af 60 BUN/Creatinine Ratio 17.1 Glucose 127 H Calcium 9.5 Troponin T High Sens 108 H* Radiography Diagnostic Testing: Clinical Impression(s) from Imaging Studies Brain CT 12/06/24 16:41 IMPRESSION: No acute intracranial abnormality. Senescent changes. Reading Location: [facility] Cervical Spine CT 12/06/24 16:41 IMPRESSION: No evidence of acute cervical spine fracture. Demineralization does limit sensitivity One or more dose reduction techniques were used (e.g., Automated exposure control, adjustment of the mA and/or kV according to patient size, use of iterative reconstruction technique). Reading Location: [facility] Facial/Sinus 12/06/24 16:41 IMPRESSION: No evidence of acute facial fracture. Senescent changes. One or more dose reduction techniques were used (e.g., Automated exposure control, adjustment of the mA and/or kV according to patient size, use of iterative reconstruction technique). Reading Location: [facility] Chest X-Ray 12/06/24 17:10 IMPRESSION: No acute findings. Senescent changes. Mild cardiac enlargement. Reading Location: [facility] Knee X-Ray 12/06/24 17:10 IMPRESSION: Acute patellar fracture on background demineralization. Reading Location: [facility] Chest x-ray portable, single view, interpreted by myself chronic changes no acute process. ED attending interpretation of left knee shows displaced patellar fracture. <Dr. Orville Cortez MD - Last Filed: 12/06/24 19:23> [facility] Narrative Medical decision making narrative: I have personally performed a face to face assessment of the patient and have reviewed the MEJIA Note. I performed a substantive portion of the visit including all aspects of the following. My gutierrez findings include: History is [79-year-old female went outside to hand picker packages when she bent over she got lightheaded passed out and fell hitting her right side of her face and lip, lacerating her hand and injuring her left knee. Prior to the incident said she felt fine. States when she bends over she has to take her time her she gets lightheaded and has passed out before. Denies any recent illness.] Exam is [well-appearing 79-year-old female. Vital signs are stable afebrile. Pulse ox 100% on room air. She does not look septic or toxic. H EENT exam pupils round reactive light. She is abrasion and contusion right side of her face and her right upper and lower lip. She has some injuries to the right upper front tooth and right incisor. Lips are swollen. There is no laceration repair. There is bruising. She can open and close her mouth. Neck nontender. Trachea midline. Lungs clear to auscultation bilaterally. Heart regular rate and rhythm rate about 80. Chest wall and ribs nontender. Abdomen soft nontender. Pelvic girdle intact. No shortening or rotation either hip. Left knee is bruised. She has limited range of motion of her left knee due to pain and swelling. No bony deformity. Left lower leg ankle and foot is nontender. Right lower extremity is nontender. Normal dorsi plantarflexion. Upper extremities she is a laceration to her right hand along the metacarpal phalangeal skin crease. It is about 1 to 2 inches in length only repaired. She has normal flexion extension of both hands. No bony deformity or bony tenderness. Wrists forearms elbows and shoulders are nontender. Neurologically she is awake and alert no focal motor deficits. Answering questions following commands.] Medical Decision Making [79-year-old had a syncopal event most likely from being orthostatic will have that workup plus CTs of her face and head and neck. X-ray of her left knee which showed a displaced patella fracture which will need to be repaired. I have already spoken to orthopedics Dr. Ghulam Dozier about that. She will be admitted to the hospitalist.] Other additions or changes: [None] History & Record Review Discussion w/independent historian: Patient Additional record(s) reviewed:: Prior inpatient record, Prior outpatient record, Prior ED visit and Prior labs Lab Data Attestation: I reviewed the patient's lab results. Lab results narrative: CBC shows a white count 9.6. H&H 13 and 40. Platelets 279. Initial troponin is 108 Labs: Laboratory Results - last 24 hr 12/06/24 16:35 WBC 11.6 H RBC 4.62 Hgb 13.6 Hct 40.5 MCV 87.7 MCH 29.4 MCHC 33.6 RDW Std Deviation 41.1 RDW Coeff of Alejo 12.9 Plt Count 279 MPV 9.2 Immature Gran % (Auto) 0.500 Neut % (Auto) 85.3 H Lymph % (Auto) 8.6 L Meigs % (Auto) 4.0 Eos % (Auto) 1.3 Baso % (Auto) 0.3 Absolute Neuts (auto) 9.9 H Absolute Lymphs (auto) 0.99 Nucleated RBC % 0 Sodium 134 Potassium 4.3 Chloride 97 L Carbon Dioxide 23.1 Anion Gap 14 BUN 16 Creatinine 0.96 Estim Creat Clear Calc 51.06 Est GFR (MDRD) Non-Af 60 BUN/Creatinine Ratio 17.1 Glucose 127 H Calcium 9.5 Troponin T High Sens 108 H* Radiography Chest X-Ray - ED: 1 View, Read by ED Physician, Normal, Heart, Lungs, Mediastinum, Bony Structures, No Acute Disease and Chronic Changes Diagnostic Testing: Clinical Impression(s) from Imaging Studies Brain CT 12/06/24 16:41 IMPRESSION: No acute intracranial abnormality. Senescent changes. Reading Location: [facility] Cervical Spine CT 12/06/24 16:41 IMPRESSION: No evidence of acute cervical spine fracture. Demineralization does limit sensitivity One or more dose reduction techniques were used (e.g., Automated exposure control, adjustment of the mA and/or kV according to patient size, use of iterative reconstruction technique). Reading Location: [facility] Facial/Sinus 12/06/24 16:41 IMPRESSION: No evidence of acute facial fracture. Senescent changes. One or more dose reduction techniques were used (e.g., Automated exposure control, adjustment of the mA and/or kV according to patient size, use of iterative reconstruction technique). Reading Location: [facility] Chest X-Ray 12/06/24 17:10 IMPRESSION: No acute findings. Senescent changes. Mild cardiac enlargement. Reading Location: [facility] Knee X-Ray 12/06/24 17:10 IMPRESSION: Acute patellar fracture on background demineralization. Reading Location: [facility] Chest x-ray portable, single view, interpreted by myself chronic changes no acute process. Rhythm Strip Rhythm Strip: Being read as paced. However the patient does not have a pacemaker. Rate: 72 Ectopy: None EKG Initial EKG: Attestation: I personally reviewed and interpreted this EKG as follows: Comments: EKG being read as paced. Patient has no pacemaker. This is artifact from his 2 brain stimulators. Procedures <MEKHI Raza - Last Filed: 12/06/24 18:48> Lacerations Right hand palmar fifth MCP: Length: 1.18 in Depth: Sub Q Shape: Linear Prep: Sterile Conditions Laceration repair: Irrigated, Lidocaine and Local Irrigated (ml): 250 Number of Sutures/Devika: 6 Suture Information: Ethilon, Simple and 5-0 Discharge Plan Triage Chief Complaint: Fall ED Midlevel Provider: Rita Nowak ED Provider: Orville Cortez Dx/Rx/DC Orders Clinical Impression: Syncope, Contusion of face, Laceration of lip, Laceration of right hand, Closed fracture of left patella, Unable to ambulate Primary Care Provider: Argelia Darby What to do if you have Problems For any increased pain, shortness of breath, bleeding, nausea or vomiting, chest pain, or any unexpected problems, contact your Primary Care Provider. Call [facility] ([phone]) or report to the closest Emergency Room. Call 911 if necessary. 12/06/24 1848 <Electronically signed by Rita GAMING> Cosigner Signature (if applicable): 12/06/242211 <Electronically signed by Orville Cortez MD> CC: Dr. Argelia Darby, DO ~ Signed [facility] Work Phone: [phone] Discharge summary [facility] Medical Records Department [address] [place] [address] Emergency Department Summary 12/06/24 MR#: [id number] Acct: [id number] Name: JERO LEWIS Rep #:[id number] : 1945 79 From: Rita GAMING PCP: Dr. Argelia Darby, DO Status:ADM IN Location: [place] [address] HPI HPI - Fall History of Present Illness Chief Complaint: Fall Narrative Narrative: 79-year-old female with PMH of HTN, HLD, CAD states she has groceries delivered to her porch and she was on her second trip out and bent over when she must havepassed out and fell striking her face on the concrete porch. She denies preceding dizziness or lightheadedness. She states she is supposed to move slowly because this has happened to her before. Her neighbor was outside so she yelled for help and he got her cell phone to call her son. When he arrived theywere able to get her into a wheelchair she has in the home and she was brought in by EMS who placed a C-collar. Patient's main complaint is left knee pain. She denies headache, visual changes, or nausea or vomiting. She thinks she may be on a blood thinner but does not know the name or reason. [facility] Medical History Allergic rhinitis Anxiety and depression CAD (coronary artery disease) Kimberlee disease Chronic hyponatremia COVID-19 Debility Depression Dizziness Fatigue History of endometrial biopsy HTN (hypertension) Hyperlipidemia Hypothyroidism MVP (mitral valve prolapse) Myalgia Osteoarthritis Pulmonary hypertension PVCs (premature ventricular contractions) RLS (restless legs syndrome) Sleep apnea SOB (shortness of breath) Vertigo Vitamin B12 deficiency Vitamin D deficiency Home Medications ?Medication ?Instructions ?Recorded ?Last Taken ?Type atorvastatin 20 mg tablet 20 mg PO DAILY hld 07/28/23 07/30/23 History sodium chloride 1,000 mg soluble 1,000 mg PO BID suppl ement #60 tabs 07/31/23 07/31/23 Rx tablet acetaminophen 500 mg tablet 1,000 mg (2 x 500 mg) PO Q 6H PRN 08/08/23 Unknown Rx PRN Pain Score 1-10 #0 tabs meloxicam 15 mg tablet 15 mg PO DAILY #0 tabs Unknown Rx aspirin 81 mg tablet,delayed 81 mg PO DAILY #90 tabs 09/04/23 12/06/24 Rx release (Adult Aspirin Regimen) calcium 600 mg-D3 800 unit-mag 40 1 tab PO BID 3 12/06/24 History [id number]-boron chew tablet (Caltrate 600-D Plus Minerals) cyanocobalamin (vitamin B-12) 1,000 mcg PO QMONTH 08/24 11/16 Unknown History 1,000 mcg capsule olmesartan 40 mg tablet 40 mg PO DAILY see #90 ta bs 10/25/23 12/06/24 Rx ipratropium bromide 21 mcg (0.03 2 spray intranasal BI D 03/11/24 Unknown History %) nasal spray levocetirizine 5 mg tablet 5 mg PO QDAY 03/11/24 Unkno wn History Held on 12/06/24. Instructions: pt stopped sertraline 100 mg tablet 100 mg PO QDAY 03/11/2411/22 History levothyroxine 125 mcg tablet 112 mcg PO QDAY 06/10/24 Unknown History liothyronine 5 mcg tablet 5 mcg PO QDAY 12/04/2412/06 History metoprolol tartrate 50 mg tablet 50 mg PO BID #180 t abs 12/04/24 Unknown Rx spironolactone 25 mg tablet 25 mg PO DAILY #90 tabs 12/04/24 Unknown Rx carvedilol 3.125 mg tablet 3.125 mg PO BID 12/06/24 History Allergy/AdvReac Type Severity Reaction Status Date / Time propoxyphene HCl (From Allergy Nausea Verified 12/06/24 16:36 Darvon) atorvastatin AdvReac Intermediate myalgia Verified 12/06/24 16:36 codeine AdvReac Intermediate Nausea Verified 12/06/24 16:36 simvastatin AdvReac Intermediate Myalgia Verified 12/06/24 16:36 Family History Mother CVA (cerebral vascular accident) Father Kimberlee disease Son Kimberlee disease Brother Heart disease Hypertension Daughter Lupus Arthritis Sister Melanoma Surgical History H/O cone biopsy of cervix H/O dilation and curettage History of tonsillectomy (~1958) Hx of cardiac catheterization (~09/09/20) Hx of cataract extraction (~2020) Hx of myringotomy Hx of tubal ligation (~1982) S/P thyroid biopsy Social History household members: none Smoking Status: Never smoker alcohol intake: never substance use type: does not use caffeine: Yes Type: coffee Number of servings: 2 ROS ROS ED ROS Narrative Constitutional: Negative for fever, chills, malaise. CVS: Negative for chest pain. Respiratory: Negative for shortness of breath. GI: Negative for nausea, vomiting Neuro: Negative for headache. EXAM Physical Exam Narrative Exam Narrative: CONST: Patient sitting in no acute distress. EYES: Normal inspection. PERRL, EOMI. HEAD: Small abrasion right frontal scalp, bruising and swelling on right upper eyelid. 2 small linear lacerations and dried blood on right upper lip does not cross vermilion border. No raccoon eyes or Johnson sign, no epistaxis or nasal septal hematoma, no CSF otorrhea or rhinorrhea. No facial bone tenderness or deformity. NECK: C-collar on. No midline tenderness or step-offs. RESP: No respiratory distress, CTAB. Chest wall nontender. CVS: Regular rate and rhythm, no murmur, no gallop. ABD: Soft and nontender, no guarding or rebound, nondistended. Back: Normal inspection, no midline tenderness. EXTREMITIES: Bilateral upper extremities appear normal, full range of motion, notenderness, 2+ radial pulses. 3 cm laceration on right palm over the fifth MCP palmar aspect extending around to the dorsal surface. No tendon injury. Bilateral lower extremities notable for left knee swelling with abrasion and tenderness. Very limited range of motion secondary to pain. 5/5 dorsiflexion and plantarflexion. Normal sensation. 2+ DP pulses. NEURO: Alert and answering questions appropriately. PSYCH: Normal affect. Const Vital Signs: 12/06/24 16:31 12/06/24 16:36 12/06/24 17:30 Temperature 98.1 F Temperature Source Temporal Pulse Rate 82 81 Respiratory Rate 22 H Respiratory Effort Normal Non-Labored Blood Pressure 162/88 H 162/106 H Blood Pressure Mean 112 124 Pulse Ox 100 100 Oxygen Delivery Method Room Air Room Air 12/06/24 18:00 Temperature Temperature Source Pulse Rate 65 Respiratory Rate Respiratory Effort Blood Pressure 136/64 H Blood Pressure Mean 88 Pulse Ox 93 Oxygen Delivery Method Physical Exam Const Vital Signs: 12/06/24 16:31 12/06/24 16:36 12/06/24 17:30 Temperature 98.1 F Temperature Source Temporal Pulse Rate 82 81 Respiratory Rate 22 H Respiratory Effort Normal Non-Labored Blood Pressure 162/88 H 162/106 H Blood Pressure Mean 112 124 Pulse Ox 100 100 Oxygen Delivery Method Room Air Room Air 12/06/24 18:00 Temperature Temperature Source Pulse Rate 65 Respiratory Rate Respiratory Effort Blood Pressure 136/64 H Blood Pressure Mean 88 Pulse Ox 93 Oxygen Delivery Method MDM MDM MDM Narrative Medical decision making narrative: Differential includes but not limited to head injury, intracranial hemorrhage, orthostatic hypotension, cardiac etiology 79-year-old female bent over to get groceries and had a syncopal episode and fell injuring her face, right hand, and left knee. She is awake and alert. GCS15. Vital signs stable. She has facial contusions and a small lip laceration that does not require repair. C-collar in place. No cervical or thoracic or lumbar tenderness is present. Chest stable, nontender. Heart and lung sounds normal. Abdomen soft and nontender. Pelvis stable. She is moving all extremities but left knee motion is significantly limited due to pain and swelling. Distal pulses intact. CT scans of the brain, cervical spine, facial bones are all negative. Chest x-ray negative. Left knee shows acute. Patellarfracture. This wa s discussed with Dr. Dozier as it will need surgical treatment. Syncopal workup including labs and EKG ordered. WBC is 11.6. Hemoglobin normal at 13.6. Chemistry panel overall unremarkable. EKG sinusrhythm with occasional PVCs. Nonspecific changes. Troponin is 108 however patient has no chest painso I do not suspect ACS. Serial troponins are ordered. Patient's wounds were cleansed, right hand laceration repaired with 6 sutures, and pain controlled with IV morphine and Zofran x 1. Tetanus update given. I discussed case with the hospitalist for admission. I have personally performed a face to face assessment of the patient and have reviewed the MEJIA Note. I performed a substantive portion of the visit including all aspects of the following. My gutierrez findings include: History is [79-year-old female went outside to hand picker packages when she bent over she got lightheaded passed out and fell hitting her right side of her face and lip, lacerating her hand and injuringher left knee. Prior to the incident said she felt fine. States when she bends over she has to takeher time her she gets lightheaded and has passed out before. Denies any recent illness.] Exam is [well-appearing 79-year-old female. Vital signs are stable afebrile. Pulse ox 100% on room air. She does not look septic or toxic. H EENT exam pupils round reactive light. She is abrasion andcontusion right side of her face and her right upper and lower lip. She has some injuries to the right upper front tooth and right incisor. Lips are swollen. There is no laceration repair. There is bruising. She can open and close her mouth. Neck nontender. Trachea midline. Lungs clear to auscultation bilaterally. Heart regular rate and rhythm rate about 80. Chest wall and ribs nontender. Abdomensoft nontender. Pelvic girdle intact. No shortening or rotation either hip. Left knee is bruised. She has limited range of motion of her left knee due to pain and swelling. No bony deformity. Left lower leg ankle and foot is nontender. Right lower extremity is nontender. Normal dorsi plantarflexion. Upper extremities she is a laceration to her right hand along the metacarpal phalangeal skin crease. It is about 1 to 2 inches in length only repaired. She has normal flexion extension of both hands. No bony deformity or bony tenderness. Wrists forearms elbows and shoulders are nontender. Neurologically she is awake and alert no focal motor deficits. Answering questions following commands.] Medical Decision Making [79-year-old had a syncopal event most likely from being orthostatic will have that workup plus CTs of her face and head and neck. X-ray of her left knee which showed a displaced patella fracture which will need to be repaired. I have already spoken to orthopedics Dr. Ghulam Dozier about that. She will be admitted to the hospitalist.] Other additions or changes: [None] Lab Data Labs: Laboratory Results - last 24 hr 12/06/24 16:35 WBC 11.6 H RBC 4.62 Hgb 13.6 Hct 40.5 MCV 87.7 MCH 29.4 MCHC 33.6 RDW Std Deviation 41.1 RDW Coeff of Alejo 12.9 Plt Count 279 MPV 9.2 Immature Gran % (Auto) 0.500 Neut % (Auto) 85.3 H Lymph % (Auto) 8.6 L Meigs % (Auto) 4.0 Eos % (Auto) 1.3 Baso % (Auto) 0.3 Absolute Neuts (auto) 9.9 H Absolute Lymphs (auto) 0.99 Nucleated RBC % 0 Sodium 134 Potassium 4.3 Chloride 97 L Carbon Dioxide 23.1 Anion Gap 14 BUN 16 Creatinine 0.96 Estim Creat Clear Calc 51.06 Est GFR (MDRD) Non-Af 60 BUN/Creatinine Ratio 17.1 Glucose 127 H Calcium 9.5 Troponin T High Sens 108 H* Radiography Diagnostic Testing: Clinical Impression(s) from Imaging Studies Brain CT 12/06/24 16:41 IMPRESSION: No acute intracranial abnormality. Senescent changes. Reading Location: [facility] Cervical Spine CT 12/06/24 16:41 IMPRESSION: No evidence of acute cervical spine fracture. Demineralization does limit sensitivity One or more dose reduction techniques were used (e.g., Automated exposure control, adjustment of the mA and/or kV according to patient size, use of iterative reconstruction technique). Reading Location: [facility] Facial/Sinus 12/06/24 16:41 IMPRESSION: No evidence of acute facial fracture. Senescent changes. One or more dose reduction techniques were used (e.g., Automated exposure control, adjustment of the mA and/or kV according to patient size, use of iterative reconstruction technique). Reading Location: [facility] Chest X-Ray 12/06/24 17:10 IMPRESSION: No acute findings. Senescent changes. Mild cardiac enlargement. Reading Location: [facility] Knee X-Ray 12/06/24 17:10 IMPRESSION: Acute patellar fracture on background demineralization. Reading Location: [facility] Chest x-ray portable, single view, interpreted by myself chronic changes no acute process. ED attending interpretation of left knee shows displaced patellar fracture. MDM MDM Narrative Medical decision making narrative: I have personally performed a face to face assessment of the patient and have reviewed the MEJIA Note. I performed a substantive portion of the visit including all aspects of the following. My gutierrez findings include: History is [79-year-old female went outside to hand picker packages when she bent over she got lightheaded passed out and fell hitting her right side of her face and lip, lacerating her hand and injuringher left knee. Prior to the incident said she felt fine. States when she bends over she has to takeher time her she gets lightheaded and has passed out before. Denies any recent illness.] Exam is [well-appearing 79-year-old female. Vital signs are stable afebrile. Pulse ox 100% on room air. She does not look septic or toxic. H EENT exam pupils round reactive light. She is abrasion andcontusion right side of her face and her right upper and lower lip. She has some injuries to the right upper front tooth and right incisor. Lips are swollen. There is no laceration repair. There is bruising. She can open and close her mouth. Neck nontender. Trachea midline. Lungs clear to auscultation bilaterally. Heart regular rate and rhythm rate about 80. Chest wall and ribs nontender. Abdomensoft nontender. Pelvic girdle intact. No shortening or rotation either hip. Left knee is bruised. She has limited range of motion of her left knee due to pain and swelling. No bony deformity. Left lower leg ankle and foot is nontender. Right lower extremity is nontender. Normal dorsi plantarflexion. Upper extremities she is a laceration to her right hand along the metacarpal phalangeal skin crease. It is about 1 to 2 inches in length only repaired. She has normal flexion extension of both hands. No bony deformity or bony tenderness. Wrists forearms elbows and shoulders are nontender. Neurologically she is awake and alert no focal motor deficits. Answering questions following commands.] Medical Decision Making [79-year-old had a syncopal event most likely from being orthostatic will have that workup plus CTs of her face and head and neck. X-ray of her left knee which showed a displaced patella fracture which will need to be repaired. I have already spoken to orthopedics Dr. Ghulam Dozier about that. She will be admitted to the hospitalist.] Other additions or changes: [None] History & Record Review Discussion w/independent historian: Patient Additional record(s) reviewed:: Prior inpatient record, Prior outpatient record, Prior ED visit andPrior labs Lab Data Attestation: I reviewed the patient's lab results. Lab results narrative: CBC shows a white count 9.6. H&H 13 and 40. Platelets 279. Initial troponin is 108 Labs: Laboratory Results - last 24 hr 12/06/24 16:35 WBC 11.6 H RBC 4.62 Hgb 13.6 Hct 40.5 MCV 87.7 MCH 29.4 MCHC 33.6 RDW Std Deviation 41.1 RDW Coeff of Alejo 12.9 Plt Count 279 MPV 9.2 Immature Gran % (Auto) 0.500 Neut % (Auto) 85.3 H Lymph % (Auto) 8.6 L Meigs % (Auto) 4.0 Eos % (Auto) 1.3 Baso % (Auto) 0.3 Absolute Neuts (auto) 9.9 H Absolute Lymphs (auto) 0.99 Nucleated RBC % 0 Sodium 134 Potassium 4.3 Chloride 97 L Carbon Dioxide 23.1 Anion Gap 14 BUN 16 Creatinine 0.96 Estim Creat Clear Calc 51.06 Est GFR (MDRD) Non-Af 60 BUN/Creatinine Ratio 17.1 Glucose 127 H Calcium 9.5 Troponin T High Sens 108 H* Radiography Chest X-Ray - ED: 1 View, Read by ED Physician, Normal, Heart, Lungs, Mediastinum, Bony Structures,No Acute Disease and Chronic Changes Diagnostic Testing: Clinical Impression(s) from Imaging Studies Brain CT 12/06/24 16:41 IMPRESSION: No acute intracranial abnormality. Senescent changes. Reading Location: [facility] Cervical Spine CT 12/06/24 16:41 IMPRESSION: No evidence of acute cervical spine fracture. Demineralization does limit sensitivity One or more dose reduction techniques were used (e.g., Automated exposure control, adjustment of the mA and/or kV according to patient size, use of iterative reconstruction technique). Reading Location: [facility] Facial/Sinus 12/06/24 16:41 IMPRESSION: No evidence of acute facial fracture. Senescent changes. One or more dose reduction techniques were used (e.g., Automated exposure control, adjustment of the mA and/or kV according to patient size, use of iterative reconstruction technique). Reading Location: [facility] Chest X-Ray 12/06/24 17:10 IMPRESSION: No acute findings. Senescent changes. Mild cardiac enlargement. Reading Location: [facility] Knee X-Ray 12/06/24 17:10 IMPRESSION: Acute patellar fracture on background demineralization. Reading Location: [facility] Chest x-ray portable, single view, interpreted by myself chronic changes no acute process. Rhythm Strip Rhythm Strip: Being read as paced. However the patient does not have a pacemaker. Rate: 72 Ectopy: None EKG Initial EKG: Attestation: I personally reviewed and interpreted this EKG as follows: Comments: EKG being read as paced. Patient has no pacemaker. This is artifact from his 2 brain stimulators. Procedures Lacerations Right hand palmar fifth MCP: Length: 1.18 in Depth: Sub Q Shape: Linear Prep: Sterile Conditions Laceration repair: Irrigated, Lidocaine and Local Irrigated (ml): 250 Number of Sutures/[place]: 6 Suture Information: Ethilon, Simple and 5-0 Discharge Plan Triage Chief Complaint: Fall ED Midlevel Provider: Rita Nowak ED Provider: Orville Cortez Dx/Rx/DC Orders Clinical Impression: Syncope, Contusion of face, Laceration of lip, Laceration of right hand, Closed fracture of left patella, Unable to ambulate Primary Care Provider: Argelia Darby What to do if you have Problems For any increased pain, shortness of breath, bleeding, nausea or vomiting, chest pain, or any unexpected problems, contact your Primary Care Provider. Call [facility] ([phone]) or report to the closest Emergency Room. Call 911 if necessary. 12/06/24 1848 Cosigner Signature (if applicable): 12/06/24 2212 CC: Dr. Argelia Darby, DO ~ Signed [facility]03-15-2025 History and physical note Author Sandro Jackman [facility] Note Date/Time December 06, 2024 7:0 9pm [facility] Medical Records Department [address] [place] [address] H&P Exam - Hospitalist 12/06/241851 MR#: [id number] Acct: [id number] Name: JERO LEWIS Rep #:[id number] : 1945 79 From: Sandro Jackman MD PCP: Dr. Argelia Darby, Status:ADM IN Location: [facility] [id number] HPI - General General Date of Admission: 12/06/24 Date of Service: 12/06/24 Chief Complaint: Acute fall HPI Narrative JERO LEWIS, is a 79 F with past medical history of coronary artery disease, hypertension, dizziness, mitral valve insufficiency, was brought to the ED following a fall while picking up groceries today. Per the patient she had an episode of blackout and when she woke up had blood all over her face and severe pain over her left leg. As background history she has been having episodes of lightheadedness and syncopal episodes and has been following up closely with cardiology for the lastfew months. No reason for her episodes are not exactly known, she has undergoneextensive evaluation including Holter monitoring, pharmacological stress testing, and next plan of action was considered to be CT coronary angio. On herHolter monitor she was noted to have recurrent episodes of NSVT. She is also being planned to be evaluated by neurology for the reason for her presentation. At the time of presentation in the ED, blood pressure 136/64, oxygen saturation 93%, WBC 11.6, hemoglobin 13.6, platelet count 279, sodium 134, potassium 4.3, chloride 97, high-sensitivity troponin was elevated at 108, X-ray showed acute fracture of the patellar body which displaced approximately 6 mm with joint effusion. No evidence of acute facial fracture, Cervical spine fracture, Or intracranial bleed [facility] Medical History Allergic rhinitis Anxiety and depression CAD (coronary artery disease) Cromwell disease Chronic hyponatremia COVID-19 Debility Depression Dizziness Fatigue History of endometrial biopsy HTN (hypertension) Hyperlipidemia Hypothyroidism MVP (mitral valve prolapse) Myalgia Osteoarthritis Pulmonary hypertension PVCs (premature ventricular contractions) RLS (restless legs syndrome) Sleep apnea SOB (shortness of breath) Vertigo Vitamin B12 deficiency Vitamin D deficiency Home Medications ?Medication ?Instructions ?Recorded ?Last Taken ?Type atorvastatin 20 mg tablet 20 mg PO DAILY hld 07/28/23 07/30/23 History sodium chloride 1,000 mg soluble 1,000 mg PO BID suppl ement #60 tabs 07/31/23 07/31/23 Rx tablet acetaminophen 500 mg tablet 1,000 mg (2 x 500 mg) PO Q 6H PRN 08/08/23 Unknown Rx PRN Pain Score 1-10 #0 tabs meloxicam 15 mg tablet 15 mg PO DAILY #0 tabs 08/08 Unknown Rx aspirin 81 mg tablet,delayed 81 mg PO DAILY #90 tabs 1 11/05/22 Unknown Rx release (Adult Aspirin Regimen) calcium 600 mg-D3 800 unit-mag 40 1 tab PO BID 3 Unknown History [id number] chew tablet (Caltrate 600-D Plus Minerals) cyanocobalamin (vitamin B-12) 1,000 mcg PO QMONTH 08/24 11/16 Unknown History 1,000 mcg capsule olmesartan 40 mg tablet 40 mg PO DAILY see #90 ta bs 10/25/23 Unknown Rx ipratropium bromide 21 mcg (0.03 2 spray intranasal BI D 03/11/24 Unknown History %) nasal spray levocetirizine 5 mg tablet 5 mg PO QDAY 03/11/24 Unkno wn History sertraline 100 mg tablet 100 mg PO QDAY 03/11/24 Unkn own History levothyroxine 125 mcg tablet 112 mcg PO QDAY 06/10/24 Unknown History liothyronine 5 mcg tablet 5 mcg PO QDAY 12/04/24 Unkno wn History metoprolol tartrate 50 mg tablet 50 mg PO BID #180 tab s 12/04/24 Unknown Rx spironolactone 25 mg tablet 25 mg PO DAILY #90 tabs Unknown Rx carvedilol 3.125 mg tablet 3.125 mg PO BID 12/06/24 History Allergy/AdvReac Type Severity Reaction Status Date / Time propoxyphene HCl (From Allergy Nausea Verified 12/06/24 16:36 Darvon) atorvastatin AdvReac Intermediate myalgia Verified 12/06/24 16:36 codeine AdvReac Intermediate Nausea Verified 12/06/24 16:36 simvastatin AdvReac Intermediate Myalgia Verified 12/06/24 16:36 Family History Mother CVA (cerebral vascular accident) Father Kimberlee disease Son Cromwell disease Brother Heart disease Hypertension Daughter Lupus Arthritis Sister Melanoma Surgical History H/O cone biopsy of cervix H/O dilation and curettage History of tonsillectomy (~1958) Hx of cardiac catheterization (~09/09/20) Hx of cataract extraction (~2020) Hx of myringotomy Hx of tubal ligation (~1982) S/P thyroid biopsy Social History household members: none Smoking Status: Never smoker alcohol intake: never substance use type: does not use caffeine: Yes Type: coffee Number of servings: 2 ROS Review of Systems ROS Unobtainable: Denies due to encephalopathy, due to endotracheal tube, due tomental condition, due to mental status or other Constitutional Constitutional: Denies anorexia, change in weight, chills, fatigue, fever(s), malaise, night sweats, weakness or other Eyes Eyes: Denies blurry vision, change in eye color, change in vision, discharge from eye(s), double vision, erythema, eye pain, loss of vision or other ENT HEENT: Denies abnormal hearing, dysphagia, ear pain, epistaxis, headache(s), hearing loss, nasal congestion, nasal discharge, post nasal drip, sinus pressure, sore throat or other Cardiovascular Cardiovascular: Reports lightheadedness, rapid heart rate and syncope Respiratory/Chest Respiratory/Chest: Denies cough, dyspnea, excessive phlegm production, hemoptysis, productive cough, shortness of breath at rest, shortness of breath with exertion, wheezing or other Gastrointestinal Gastrointestinal: Denies abdominal pain, coffee ground emesis, constipation, diarrhea, dyspepsia, hematemesis, hematochezia, loose stools, melena, nausea, vomiting or other Genitourinary Genitourinary: Denies burning urination, difficulty urinating, dysuria, hematuria, nocturia, urinary frequency, urinary hesitancy, urinary incontinence,urinary urgency or other Musculoskeletal Musculoskeletal: Denies arthralgias, back pain, joint pain, joint stiffness, joint swelling, myalgias, neck pain or other Neurologic Neurologic: Reports disequilibrium, dizziness and syncope Psychiatric Psychiatric: Denies anxiety, depression, homicidal ideation, suicidal ideation or other Endocrine Endocrinology: Denies change in body appearance, cold intolerance, excessive sweating, heat intolerance, polydipsia, polyuria or other Hematologic/Lymphatic Hematologic/Lymphatic: Denies anemia, easy bleeding, easy bruising, lymphadenopathy or other Allergic/Immunologic Allergic/Immunologic: Denies rhinitis, hives, eczemia, asthma or other Vital Signs Vital Signs Vital Signs: 12/06/24 16:31 12/06/24 16:36 12/06/24 17:30 Temperature 98.1 F Temperature Source Temporal Pulse Rate 82 81 Respiratory Rate 22 H Respiratory Effort Normal Non-Labored Blood Pressure 162/88 H 162/106 H Blood Pressure Mean 112 124 Pulse Ox 100 100 Oxygen Delivery Method Room Air Room Air 12/06/24 18:00 Temperature Temperature Source Pulse Rate 65 Respiratory Rate Respiratory Effort Blood Pressure 136/64 H Blood Pressure Mean 88 Pulse Ox 93 Oxygen Delivery Method Weight Weight: 191 lb 12.835 oz Body Mass Index (BMI) 30.9 Physical Exam Const alert and oriented x3 Constitutional Narrative: Patient in significant pain because of her patellar fracture HEENT normocephalic HEENT Narrative: Small abrasion right frontal scalp, bruising and swelling on right upper eyelid. 2 small linear lacerations and dried blood on right upper lip does not cross vermilion border. Eyes PERRL Resp normal respiratory effort and no retractions Cardio regular rate and regular rhythm Cardio Narrative: Tachycardia present GI normal to inspection, nondistended, normoactive bowel sounds Extremity Extremity Narrative: Pain with movement, swelling present. 3 cm laceration on right palm over the fifth MCP palmar aspect extending around to the dorsal surface Neuro oriented x3 and CN's II-XII intact bilaterally Results Lab / Micro Data 12/06/24 16:35 12/06/24 16:35 Labs: Laboratory Results - last 24 hr 12/06/24 16:35: WBC 11.6 H, RBC 4.62, Hgb 13.6, Hct 40.5, MCV 87.7, MCH 29.4, MCHC 33.6, RDW Std Deviation 41.1, RDW Coeff of Alejo 12.9, Plt Count 279, MPV 9.2, Immature Gran % (Auto) 0.500, Neut % (Auto) 85.3 H, Lymph % (Auto) 8.6 L, Meigs % (Auto) 4.0, Eos % (Auto) 1.3, Baso % (Auto) 0.3, Absolute Neuts (auto) 9.9 H, Absolute Lymphs (auto) 0.99, Nucleated RBC % 0, Sodium 134, Potassium 4.3, Chloride 97 L, Carbon Dioxide 23.1, Anion Gap 14, BUN 16, Creatinine 0.96, Estim Creat Clear Calc 51.06, Est GFR (MDRD) Non-Af 60, BUN/Creatinine Ratio 17.1, Glucose 127 H, Calcium 9.5, Troponin T High Sens 108 H* Imaging Radiology Impression Brain CT 12/06/24 16:41 IMPRESSION: No acute intracranial abnormality. Senescent changes. Reading Location: [facility] Cervical Spine CT 12/06/24 16:41 IMPRESSION: No evidence of acute cervical spine fracture. Demineralization does limit sensitivity One or more dose reduction techniques were used (e.g., Automated exposure control, adjustment of the mA and/or kV according to patient size, use of iterative reconstruction technique). Reading Location: [facility] Facial/Sinus 12/06/24 16:41 IMPRESSION: No evidence of acute facial fracture. Senescent changes. One or more dose reduction techniques were used (e.g., Automated exposure control, adjustment of the mA and/or kV according to patient size, use of iterative reconstruction technique). Reading Location: [facility] Chest X-Ray 12/06/24 17:10 IMPRESSION: No acute findings. Senescent changes. Mild cardiac enlargement. Reading Location: [facility] Knee X-Ray 12/06/24 17:10 IMPRESSION: Acute patellar fracture on background demineralization. Reading Location: [facility] Echocardiogram 09/26/2023: Interpretation Summary The left ventricular ejection fraction is 55 %. Stage 1 diastolic dysfunction. Mild (1+) mitral valve insufficiency. Moderate (2+) eccentric tricuspid valve insufficiency. ECHOCARDIOGRAM 08/01/21: SUMMARY 1. Left ventricle: The cavity size is normal. Wall thickness is normal. Systolicfunction is mildly reduced. The estimated ejection fraction is 50%. There is mild diffuse hypokinesis. Diastolic dysfunction is present. 2. Mitral valve: There is mild regurgitation. 3. Left atrium: The atrium is mildly dilated. 4. Right ventricle: The RV systolic pressure by Doppler is 41 mmHg. 5. Right atrium: The atrium is mildly dilated. Stress Test 06/25/2024: Impression: 1. Pharmacologic (Regadenoson) evaluation 2. Peak pharmacologic ECG was nondiagnostic secondary to baseline changes. 3. Frequent PVCs noted pretest, during pharmacologic infusion and in recovery. 5. Rest and stress SPECT Cardiolite nuclear imaging demonstrate relative uniform tracer uptake and myocardial perfusion appearing within normal limits. 6. The gated Cardiolite study reports an LVEF of 63%. STRESS TEST 09/02/20: IMPRESSION 1. EKG portion of Lexiscan stress test is uninterpretable due to abnormal baseline. 2. Results of nuclear images will be reported separately. 3. Dr Mas was available through telephone/telehealth during stress test. IMPRESSION 1. Technically difficult study due to subdiaphragmatic tracer activity as well as breast attenuation. 2. Small area of ischemia involving distal anterolateral, anterior segments and apex versus shifting breast attenuation artifact. No evidence of prior infarct. 3. Normal systolic function with ejection fraction of 63%. 4. No prior studies for comparison. 14-Day Cardiac Event Monitor 10/14/2024: Findings: -The predominant rhythm was sinus with frequent ventricular ectopy. -The maximum heart rate recorded was 175 bpm, 09/13 10:56:21, the minimum heart rate recorded was 41 bpm, 09/08 04:06:40, and the average heart rate was 64 bpm. -There were 82, 158 VE beats with a burden of 6%. There was 1 occurrence of ventricular tachycardia with the fastest episode 140 bpm, 09/07 22:59:49, and the longest episode 4 beats, 09/07 22:59:49. -There were 3,430 SVE beats with a burden of <1%. There were 73 occurrences of supraventricular tachycardia with the fastest episode 175 bpm, 09/13 10:56:19, and the longest episode 13 beats, 09/13 23:15:00. -Other rhythms in this study include: Ventricular Run. -There were 19 patient triggers. 24-Hour Event Monitor 06/25/2024: Interpretation: [place] [address] beats recorded over the 24 hour period. Normal SinusRhythm with frequent PVCs and rare PACs. Average heart rate was 66 BPM Minimum heart rate was 43 BPM at 0712 AM, sinus bradycardia Maximum heart rate was 118 BPM at 1222 AM, sinus rhythm The longest R-R interval was 1.8 seconds at 0634 AM There were a total of 4012 premature ventricular ectopic isolated beats, comprising of 4.3% of the total QRS complexes. 1 triplet, 23 couplets, 29 interpolated beats, 4 trigeminy beats, and 109 bigeminy beats. No runs noted. There were a total of 72 premature supraventricular ectopic isolated beats, comprising of 0.1% of the total QRS complexes. 3 atrial runs. The longest and fastest run consisted of 6 beats with a maximum heart rate of 141 BPM at 0701 AM. No atrial fibrillation noted. The patient kept a diary with a feeling of being tired after her stress test. 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 No major dysrhythmias recorded. 1 run of 7 beat nonsustained ventricular tachycardia was noted no symptom to arrhythmia correlation could be performed. Min HR 42 BPM Max HR 172 BPM Avg HR 58 BPM CARDIAC CATHETERIZATION 09/09/20: SUMMARY 1. Left ventricle: Systolic function is normal. The estimated ejection fraction is 55-60%. 2. LAD: Mid vessel lesion: There is 40% stenosis. 3. Left circumflex: Mid vessel lesion: There is 40% stenosis. Assessment & Plan Assessment/Plan (1) Closed fracture of left patella: PLAN: Plan 79-year-old female with history of coronary artery disease, dizziness, presents to the ED with concerns regarding fall resulting in left patellar fracture. #Left vertebral fracture #Unable to mobilize -Appreciate orthopedics input, plan for possible surgical intervention tomorrow -Pain control with opioids as needed, she is in significant pain at this time -Rest and elevation of the limb, mobilize in the ED #Recurrent syncopal episodes #Dizziness -Follows with cardiology, etiology is not known -Repeat NT proBNP levels -Will hold off her beta-blockers and diuretics at this time as it could be partly putting to her orthostatic symptoms -Continue olmesartan for now if no improvement we can consider stopping that andobserving changes in her blood pressure also #NSVT -Has had extensive Holter monitoring in the past -Follow-up on troponin levels, hold off beta-blockers and diuretics at this time. #Coronary artery disease -Follows up with outpatient cardiology -CT angiography as an outpatient #Acute pain -Controlled with opioids, joint immobilization # Hypertension -Continue home medications #DVT prophylaxis -Enoxaparin subcutaneous #CODE STATUS -She is DNR CCA, agreeable to be full code for the procedure 12/06/24 9733 <Electronically signed by Sandro Jackman MD> Cosigner Signature (if applicable): CC: Dr. Sandro Jackman MD; Dr. Argelia Darby, DO~ Signed [facility] Work Phone: [phone]) 511-473103-15-2025 History and physical note [facility] Medical Records Department [address] [place] [address] H&P Exam - Hospitalist 12/06/24 1852 MR#: [id number] Acct: [id number] Name: JERO LEWIS Rep #:[id number] : 1945 79 From: Sandro Jackman MD PCP: Dr. Argelia Darby, DO Status:ADM IN Location: [facility] [id number] HPI - General General Date of Admission: 12/06/24 Date of Service: 12/06/24 Chief Complaint: Acute fall HPI Narrative JERO LEWIS, is a 79 F with past medical history of coronary artery disease, hypertension, dizziness, mitral valve insufficiency, was brought to the ED following a fall while picking up groceries today. Per the patient she had an episode of blackout and when she woke up had blood all over her face and severe pain over her left leg. As background history she has been having episodes of lightheadedness and syncopal episodes and hasbeen following up closely with cardiology for the lastfew months. No reason for her episodes are not exactly known, she has undergoneextensive evaluation including Holter monitoring, pharmacological s tress testing, and next plan of action was considered to be CT coronary angio. On herHolter monitorshe was noted to have recurrent episodes of NSVT. She is also being planned to be evaluated by neurology for the reason for her presentation. At the time of presentation in the ED, blood pressure 136/64, oxygen saturation 93%, WBC 11.6, hemoglobin 13.6, platelet count 279, sodium 134, potassium 4.3, chloride 97, high-sensitivity troponin was elevated at 108, X-ray showed acute fracture of the patellar body which displaced approximately 6mm with joint effusion. No evidence of acute facial fracture, Cervical spine fracture, Or intracranial bleed [facility] Medical History Allergic rhinitis Anxiety and depression CAD (coronary artery disease) Kimberlee disease Chronic hyponatremia COVID-19 Debility Depression Dizziness Fatigue History of endometrial biopsy HTN (hypertension) Hyperlipidemia Hypothyroidism MVP (mitral valve prolapse) Myalgia Osteoarthritis Pulmonary hypertension PVCs (premature ventricular contractions) RLS (restless legs syndrome) Sleep apnea SOB (shortness of breath) Vertigo Vitamin B12 deficiency Vitamin D deficiency Home Medications ?Medication ?Instructions ?Recorded ?Last Taken ?Type atorvastatin 20 mg tablet 20 mg PO DAILY hld 07/28/23 07/30/23 History sodium chloride 1,000 mg soluble 1,000 mg PO BID suppl ement #60 tabs 07/31/23 07/31/23 Rx tablet acetaminophen 500 mg tablet 1,000 mg (2 x 500 mg) PO Q 6H PRN 08/08/23 Unknown Rx PRN Pain Score 1-10 #0 tabs meloxicam 15 mg tablet 15 mg PO DAILY #0 tabs 08/08 Unknown Rx aspirin 81 mg tablet,delayed 81 mg PO DAILY #90 tabs 1 11/05/22 Unknown Rx release (Adult Aspirin Regimen) calcium 600 mg-D3 800 unit-mag 40 1 tab PO BID 3 Unknown History ta-ggdr-gtax-joseph-boron chew tablet (Caltrate 600-D Plus Minerals) cyanocobalamin (vitamin B-12) 1,000 mcg PO QMONTH 08/24 11/16 Unknown History 1,000 mcg capsule olmesartan 40 mg tablet 40 mg PO DAILY see #90 ta bs 10/25/23 Unknown Rx ipratropium bromide 21 mcg (0.03 2 spray intranasal BI D 03/11/24 Unknown History %) nasal spray levocetirizine 5 mg tablet 5 mg PO QDAY 03/11/24 Unkno wn History sertraline 100 mg tablet 100 mg PO QDAY 03/11/24 Unkn own History levothyroxine 125 mcg tablet 112 mcg PO QDAY 06/10/24 Unknown History liothyronine 5 mcg tablet 5 mcg PO QDAY 12/04/24 Unkno wn History metoprolol tartrate 50 mg tablet 50 mg PO BID #180 tab s 12/04/24 Unknown Rx spironolactone 25 mg tablet 25 mg PO DAILY #90 tabs Unknown Rx carvedilol 3.125 mg tablet 3.125 mg PO BID 12/06/24 History Allergy/AdvReac Type Severity Reaction Status Date / Time propoxyphene HCl (From Allergy Nausea Verified 12/06/24 16:36 Darvon) atorvastatin AdvReac Intermediate myalgia Verified 12/06/24 16:36 codeine AdvReac Intermediate Nausea Verified 12/06/24 16:36 simvastatin AdvReac Intermediate Myalgia Verified 12/06/24 16:36 Family History Mother CVA (cerebral vascular accident) Father Cromwell disease Son Cromwell disease Brother Heart disease Hypertension Daughter Lupus Arthritis Sister Melanoma Surgical History H/O cone biopsy of cervix H/O dilation and curettage History of tonsillectomy (~1958) Hx of cardiac catheterization (~09/09/20) Hx of cataract extraction (~2020) Hx of myringotomy Hx of tubal ligation (~1982) S/P thyroid biopsy Social History household members: none Smoking Status: Never smoker alcohol intake: never substance use type: does not use caffeine: Yes Type: coffee Number of servings: 2 ROS Review of Systems ROS Unobtainable: Denies due to encephalopathy, due to endotracheal tube, due tomental condition, due to mental status or other Constitutional Constitutional: Denies anorexia, change in weight, chills, fatigue, fever(s), malaise, night sweats, weakness or other Eyes Eyes: Denies blurry vision, change in eye color, change in vision, discharge from eye(s), double vision, erythema, eye pain, loss of vision or other ENT HEENT: Denies abnormal hearing, dysphagia, ear pain, epistaxis, headache(s), hearing loss, nasal congestion, nasal discharge, post nasal drip, sinus pressure, sore throat or other Cardiovascular Cardiovascular: Reports lightheadedness, rapid heart rate and syncope Respiratory/Chest Respiratory/Chest: Denies cough, dyspnea, excessive phlegm production, hemoptysis, productive cough, shortness of breath at rest, shortness of breath with exertion, wheezing or other Gastrointestinal Gastrointestinal: Denies abdominal pain, coffee ground emesis, constipation, diarrhea, dyspepsia, hematemesis, hematochezia, loose stools, melena, nausea, vomiting or other Genitourinary Genitourinary: Denies burning urination, difficulty urinating, dysuria, hematuria, nocturia, urinary frequency, urinary hesitancy, urinary incontinence,urinary urgency or other Musculoskeletal Musculoskeletal: Denies arthralgias, back pain, joint pain, joint stiffness, joint swelling, myalgias, neck pain or other Neurologic Neurologic: Reports disequilibrium, dizziness and syncope Psychiatric Psychiatric: Denies anxiety, depression, homicidal ideation, suicidal ideation or other Endocrine Endocrinology: Denies change in body appearance, cold intolerance, excessive sweating, heat intolerance, polydipsia, polyuria or other Hematologic/Lymphatic Hematologic/Lymphatic: Denies anemia, easy bleeding, easy bruising, lymphadenopathy or other Allergic/Immunologic Allergic/Immunologic: Denies rhinitis, hives, eczemia, asthma or other Vital Signs Vital Signs Vital Signs: 12/06/24 16:31 12/06/24 16:36 12/06/24 17:30 Temperature 98.1 F Temperature Source Temporal Pulse Rate 82 81 Respiratory Rate 22 H Respiratory Effort Normal Non-Labored Blood Pressure 162/88 H 162/106 H Blood Pressure Mean 112 124 Pulse Ox 100 100 Oxygen Delivery Method Room Air Room Air 12/06/24 18:00 Temperature Temperature Source Pulse Rate 65 Respiratory Rate Respiratory Effort Blood Pressure 136/64 H Blood Pressure Mean 88 Pulse Ox 93 Oxygen Delivery Method Weight Weight: 191 lb 12.835 oz Body Mass Index (BMI) 30.9 Physical Exam Const alert and oriented x3 Constitutional Narrative: Patient in significant pain because of her patellar fracture HEENT normocephalic HEENT Narrative: Small abrasion right frontal scalp, bruising and swelling on right upper eyelid. 2 small linear lacerations and dried blood on right upper lip does not cross vermilion border. Eyes PERRL Resp normal respiratory effort and no retractions Cardio regular rate and regular rhythm Cardio Narrative: Tachycardia present GI normal to inspection, nondistended, normoactive bowel sounds Extremity Extremity Narrative: Pain with movement, swelling present. 3 cm laceration on right palm over the fifth MCP palmar aspect extending around to the dorsal surface Neuro oriented x3 and CN's II-XII intact bilaterally Results Lab / Micro Data 12/06/24 16:35 12/06/24 16:35 Labs: Laboratory Results - last 24 hr 12/06/24 16:35: WBC 11.6 H, RBC 4.62, Hgb 13.6, Hct 40.5, MCV 87.7, MCH 29.4, MCHC 33.6, RDW Std Deviation 41.1, RDW Coeff of Alejo 12.9, Plt Count 279, MPV 9.2, Immature Gran % (Auto) 0.500, Neut % (Auto) 85.3 H, Lymph % (Auto) 8.6 L, Meigs % (Auto) 4.0, Eos % (Auto) 1.3, Baso % (Auto) 0.3, Absolute Neuts (auto) 9.9 H, Absolute Lymphs (auto) 0.99, Nucleated RBC % 0, Sodium 134, Potassium 4.3, Chloride 97 L, Carbon Dioxide 23.1, Anion Gap 14, BUN 16, Creatinine 0.96, Estim Creat Clear Calc 51.06, Est GFR (MDRD) Non-Af 60, BUN/Creatinine Ratio 17.1, Glucose 127 H, Calcium 9.5, Troponin T High Sens 108 H* Imaging Radiology Impression Brain CT 12/06/24 16:41 IMPRESSION: No acute intracranial abnormality. Senescent changes. Reading Location: [facility] Cervical Spine CT 12/06/24 16:41 IMPRESSION: No evidence of acute cervical spine fracture. Demineralization does limit sensitivity One or more dose reduction techniques were used (e.g., Automated exposure control, adjustment of the mA and/or kV according to patient size, use of iterative reconstruction technique). Reading Location: [facility] Facial/Sinus 12/06/24 16:41 IMPRESSION: No evidence of acute facial fracture. Senescent changes. One or more dose reduction techniques were used (e.g., Automated exposure control, adjustment of the mA and/or kV according to patient size, use of iterative reconstruction technique). Reading Location: [facility] Chest X-Ray 12/06/24 17:10 IMPRESSION: No acute findings. Senescent changes. Mild cardiac enlargement. Reading Location: [facility] Knee X-Ray 12/06/24 17:10 IMPRESSION: Acute patellar fracture on background demineralization. Reading Location: [facility] Echocardiogram 09/26/2023: Interpretation Summary The left ventricular ejection fraction is 55 %. Stage 1 diastolic dysfunction. Mild (1+) mitral valve insufficiency. Moderate (2+) eccentric tricuspid valve insufficiency. ECHOCARDIOGRAM 08/01/21: SUMMARY 1. Left ventricle: The cavity size is normal. Wall thickness is normal. Systolicfunction is mildly reduced. The estimated ejection fraction is 50%. There is mild diffuse hypokinesis. Diastolic dysfunction is present. 2. Mitral valve: There is mild regurgitation. 3. Left atrium: The atrium is mildly dilated. 4. Right ventricle: The RV systolic pressure by Doppler is 41 mmHg. 5. Right atrium: The atrium is mildly dilated. Stress Test 06/25/2024: Impression: 1. Pharmacologic (Regadenoson) evaluation 2. Peak pharmacologic ECG was nondiagnostic secondary to baseline changes. 3. Frequent PVCs noted pretest, during pharmacologic infusion and in recovery. 5. Rest and stress SPECT Cardiolite nuclear imaging demonstrate relative uniform tracer uptake and myocardial perfusion appearing within normal limits. 6. The gated Cardiolite study reports an LVEF of 63%. STRESS TEST 09/02/20: IMPRESSION 1. EKG portion of Lexiscan stress test is uninterpretable due to abnormal baseline. 2. Results of nuclear images will be reported separately. 3. Dr Mas was available through telephone/telehealth during stress test. IMPRESSION 1. Technically difficult study due to subdiaphragmatic tracer activity as well as breast attenuation. 2. Small area of ischemia involving distal anterolateral, anterior segments and apex versus shifting breast attenuation artifact. No evidence of prior infarct. 3. Normal systolic function with ejection fraction of 63%. 4. No prior studies for comparison. 14-Day Cardiac Event Monitor 10/14/2024: Findings: -The predominant rhythm was sinus with frequent ventricular ectopy. -The maximum heart rate recorded was 175 bpm, 09/13 10:56:21, the minimum heart rate recorded was 41 bpm, 09/08 04:06:40, and the average heart rate was 64 bpm. -There were 82, 158 VE beats with a burden of 6%. There was 1 occurrence of ventricular tachycardiawith the fastest episode 140 bpm, 09/07 22:59:49, and the longest episode 4 beats, 09/07 22:59:49. -There were 3,430 SVE beats with a burden of <1%. There were 73 occurrences of supraventricular tachycardia with the fastest episode 175 bpm, 09/13 10:56:19, and the longest episode 13 beats, 09/13 23:15:00. -Other rhythms in this study include: Ventricular Run. -There were 19 patient triggers. 24-Hour Event Monitor 06/25/2024: Interpretation: There were [place] [address]86 beats recorded over the 24 hour period. Normal SinusRhythm with frequent PVCs and rare PACs. Average heart rate was 66 BPM Minimum heart rate was 43 BPM at 0712 AM, sinus bradycardia Maximum heart rate was 118 BPM at 1222 AM, sinus rhythm The longest R-R interval was 1.8 seconds at 0634 AM There were a total of 4012 premature ventricular ectopic isolated beats, comprising of 4.3% of the total QRS complexes. 1 triplet, 23 couplets, 29 interpolated beats, 4 trigeminy beats, and 109 bigeminy beats. No runs noted. There were a total of 72 premature supraventricular ectopic isolated beats, comprising of 0.1% of the total QRS complexes. 3 atrial runs. The longest and fastest run consisted of 6 beats with a maximum heart rate of 141 BPM at 0701 AM. No atrial fibrillation noted. The patient kept a diary with a feeling of being tired after her stress test. 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 No major dysrhythmias recorded. 1 run of 7 beat nonsustained ventricular tachycardia was noted no symptom to arrhythmia correlation could be performed. Min HR 42 BPM Max HR 172 BPM Avg HR 58 BPM CARDIAC CATHETERIZATION 09/09/20: SUMMARY 1. Left ventricle: Systolic function is normal. The estimated ejection fraction is 55-60%. 2. LAD: Mid vessel lesion: There is 40% stenosis. 3. Left circumflex: Mid vessel lesion: There is 40% stenosis. Assessment & Plan Assessment/Plan (1) Closed fracture of left patella: PLAN: Plan 79-year-old female with history of coronary artery disease, dizziness, presents to the ED with concerns regarding fall resulting in left patellar fracture. #Left vertebral fracture #Unable to mobilize -Appreciate orthopedics input, plan for possible surgical intervention tomorrow -Pain control with opioids as needed, she is in significant pain at this time -Rest and elevation of the limb, mobilize in the ED #Recurrent syncopal episodes #Dizziness -Follows with cardiology, etiology is not known -Repeat NT proBNP levels -Will hold off her beta-blockers and diuretics at this time as it could be partly putting to her orthostatic symptoms -Continue olmesartan for now if no improvement we can consider stopping that andobserving changes in her blood pressure also #NSVT -Has had extensive Holter monitoring in the past -Follow-up on troponin levels, hold off beta-blockers and diuretics at this time. #Coronary artery disease -Follows up with outpatient cardiology -CT angiography as an outpatient #Acute pain -Controlled with opioids, joint immobilization # Hypertension -Continue home medications #DVT prophylaxis -Enoxaparin subcutaneous #CODE STATUS -She is DNR CCA, agreeable to be full code for the procedure 12/06/24 1909 Cosigner Signature (if applicable): CC: Dr. Sandro Jackman MD; Dr. Argelia Darby DO~ Signed [facility]03-15-2025 Radiology Diagnostic study note [facility] Services [address] [place] [address] Chest 1 View (Portable) MR#: [id number] Acct: [id number] Name: JERO LEWIS Rep #: [id number] : 1945 F 79 From: Jean Claude Azevedo MD PCP: Dr. Argelia Darby DO Status: ADM IN Study:Chest 1 View (Portable) Date of Exam: 12/06/24 Exam# [id number] Ordering Dr: Rita Brice PROCEDURE: CHEST 1 VIEW (PORTABLE) 12/06/2024 REASON FOR EXAM: FALL TECHNIQUE: Frontal view of the chest. COMPARISON: None. FINDINGS: Mildly enlarged heart. Bronchial thickening. No localizing infiltrate, effusion or pneumothorax. Degenerative changes seen about the right shoulder. Tortuous thoracic aorta. RAD/Chest 1 View (Portable) IMPRESSION: No acute findings. Senescent changes. Mild cardiac enlargement. Reading Location: [id number] CC: Dr. Argelia Darby DO; MEKHI Raza ~ Diamond Blender: Signed [facility]03-15-2025 Radiology Diagnostic study note [facility] [address] [place] [address] Sinus/Facial Bone MR#: [id number] Acct: [id number] Name: JERO LEWIS Rep #: [id number] : 1945 F 79 From: Jean Claude Azevedo MD PCP: Dr. Argelia Darby DO Status: REG ER Study:Sinus/Facial Bone Date of Exam: Exam# [id number] Ordering Dr: Rita Brice PROCEDURE: SINUS/FACIAL BONE REASON FOR EXAM: HEAD INJURY TECHNIQUE: Noncontrast facial CT performed with multiplanar reconstructions. COMPARISON: None. FINDINGS: Demineralization limits sensitivity Frontal: Frontal sinuses and frontoethmoidal recesses appear clear. Ethmoid: Ethmoid air cells appear clear. Sphenoid: Sphenoid sinuses and sphenoethmoidal recesses appear clear. Maxillary: Maxillary sinuses appear clear. The ostiomeatal units appear widely patent. Turbinates: Unremarkable. Nasal Septum: Midline. No large nasal septal spur. Mastoids/Middle Ears: Partial opacification of the right Vascular calcification. Mild soft tissue swelling CT/Sinus/Facial Bone IMPRESSION: No evidence of acute facial fracture. Senescent changes. One or more dose reduction techniques were used (e.g., Automated exposure control, adjustment of the mA and/or kV according to patient size, use of iterative reconstruction technique). Reading Location: [facility] CC: Dr. Argelia Darby DO; MEKHI Raza ~ Diamond Blender: Signed [facility]03-15-2025 Radiology Diagnostic study note [facility] Imaging Services [address] [place] [id number] Knee 1 or 2 Views MR#: [id number] Acct: [id number] Name: JERO LEWIS Rep #: [id number] : 1945 F 79 From: Jean Claude Azevedo MD PCP: Dr. Argelia Darby DO Status: REG ER Study:Knee 1 or 2 Views Date of Exam: Exam# [id number] Ordering Dr: Rita Brice PROCEDURE: KNEE 1 OR 2 VIEWS REASON FOR EXAM: PAIN TECHNIQUE: Two-view left knee COMPARISON: None. FINDINGS: There is an acute fracture of the patellar body which is displaced approximately6 mm with a joint effusion. Demineralized bones. No dislocation RAD/Knee 1 or 2 Views IMPRESSION: Acute patellar fracture on background demineralization. Reading Location: [facility] CC: Dr. Argelia Darby DO; MEKHI Raza ~ Diamond Blender: Signed [facility]03-15-2025 Radiology Diagnostic study note [facility] Imaging Services [address], [place] [id number] Spine Cervical without Contras MR#: [id number] Acct: [id number] Name: JERO LEWIS Rep #: [id number] : 1945 79 From: Jean Claude Azevedo MD PCP: Dr. Argelia Darby DO Status: REG ER Study:Spine Cervical without Contras Date of Exam: 12/06/24 Exam# [id number] Ordering Dr: Rita Brice PROCEDURE: SPINE CERVICAL WITHOUT CONTRAS REASON FOR EXAM: FALL TECHNIQUE: Cervical spine CT without contrast. COMPARISON: None. FINDINGS: Demineralized bones limits sensitivity. Vascular calcification Mild multilevel degenerative disc disease and straightening of the cervical spine. No findings of acute fracture. No high-grade central canal or foraminal stenosis CT/Spine Cervical without Contras IMPRESSION: No evidence of acute cervical spine fracture. Demineralization does limit sensitivity One or more dose reduction techniques were used (e.g., Automated exposure control, adjustment of the mA and/or kV according to patient size, use of iterative reconstruction technique). Reading Location: [facility] CC: Dr. Argelia Darby DO; MEKHI Raza ~ Diamond Blender: Signed [facility]03-15-2025 Radiology Diagnostic study note [facility] Imaging Services [address] [place] [address] Brain/Head without Contrast MR#: [id number] Acct: [id number] Name: JERO LEWIS Rep #: [id number] : 1945 F 79 From: Jean Claude Azevedo MD PCP: Dr. Argelia Darby DO Status: REG ER Study:Brain/Head without Contrast Date of Exa m: 12/06/24 Exam# [id number] Ordering Dr: Rita Brice EXAM: BRAIN/HEAD WITHOUT CONTRAST CLINICAL HISTORY: HEAD INJURY COMPARISON: None TECHNIQUE: Noncontrast head CT performed. Coronal and sagittal reconstructions performed FINDINGS: Mild global volume loss and chronic small-vessel ischemic change. No findings of acute hemorrhage. No mass effect. No midline shift. No skull fracture. Mild vascular calcification. Normal ventricular size CT/Brain/Head without Contrast IMPRESSION: No acute intracranial abnormality. Senescent changes. Reading Location: [id number] CC: Dr. Argelia Darby DO; MEKHI Raza ~ Diamond Blender: Signed [facility]12-05-2024 Evaluation note* Diagnosis Onset Date Resolution Status Admit Date CAD (coronary artery disease) chroni c August 28, 2024 2:24pm Dizziness chronic August 28, 2024 2:24pm Grade I diastolic dysfunction chroni c August 28, 2024 2:24pm HTN (hypertension) chronic Decemb er 2023 2:24pm Mitral valve insufficiency chronic August 28, 2024 2:24pm Syncope chronic August 28, 2024 2:24pm CAD (coronary artery disease) chroni c December 04, 2024 2:25pm Dizziness chronic December 04 2:25pm Grade I diastolic dysfunction chroni c December 04, 2024 2:25pm HTN (hypertension) chronic December 04, 2024 2:25pm Mitral valve insufficiency chronic December 04, 2024 2:25pm NSVT (nonsustained ventricul ar tachycardia) chronic December 04, 2024 2:25pm Closed fracture of left patella acute December 06, 2024 6:05pm Contusion of face acute November 222024 6:05pm Laceration of lip acute November 222024 6:05pm Laceration of right hand acute December 06, 2024 6:05pm Syncope acute December 06 6:05pm Unable to ambulate acute December 06, 2024 6:05pm [facility] Work Phone: 1(380) 820-487612-05-2024 Evaluation note* Diagnosis Onset Date Resolution Status Admit Date CAD (coronary artery disease) chroni c August 28, 2024 2:24pm Dizziness chronic August 28, 2024 2:24pm Grade I diastolic dysfunction chroni c August 28, 2024 2:24pm HTN (hypertension) chronic Decemb 2023 2:24pm Mitral valve insufficiency chronic August 28, 2024 2:24pm Syncope chronic August 28, 2024 2:24pm CAD (coronary artery disease) chroni c December 04, 2024 2:25pm Dizziness chronic December 04 2:25pm Grade I diastolic dysfunction chroni c December 04, 2024 2:25pm HTN (hypertension) chronic December 04, 2024 2:25pm Mitral valve insufficiency chronic December 04, 2024 2:25pm NSVT (nonsustained ventricul ar tachycardia) chronic December 04, 2024 2:25pm Closed fracture of left patella acut e December 06, 2024 6:45pm Closed transverse fracture o f left patella acute December 06, 2024 6:45pm Contusion of face acute November 222024 6:45pm Elevated troponin acute November 222024 6:45pm Hyponatremia acute December 06, 2024 6:45pm Laceration of lip acute November 222024 6:45pm Laceration of right hand acute December 06, 2024 6:45pm Preoperative cardiovascular examination acute December 06, 2024 6:45pm Syncope acute December 06 6:45pm Unable to ambulate acute December 06, 2024 6:45pm NSVT (nonsustained ventricul ar tachycardia) chronic December 06, 2024 6:45pm [facility] Work Phone: 1(895) 394-256812-02-2024 Note* Exam Date Time Procedure Performing Provider Status 08/25/24 4:17 PM Echocardiogram, Adult - CV Auth (Verified) [facility] 12-02-2024 Note ORIGINAL EXAMINATION: BONE DENSITOMETRY 08/25/2024 3:33 pm TECHNIQUE: A bone density dual x-ray absorptiometry (DEXA) scan was performed of the axial (e.g. hips, spine) and/or appendicular (e.g. radius) skeleton as appropriate. COMPARISON: 08/23/2022. HISTORY: ORDERING SYSTEM PROVIDED HISTORY: Reason for Exam: Osteoporosis Screening FINDINGS: T Score Left Femoral Neck: -0.5 Left Femoral Neck: 0.797 (g/cm2) T Score Left Hip: -0.3 Left Hip: 0.910 (g/cm2) T Score Lumbar Spine: -0.7 Lumbar Spine: 0.973 (g/cmd2) BMD Change from previous Hip: -8.9 % BMD Change from previous Lumbar Spine: -8.2% IMPRESSION: Normal bone mineral density by WHO criteria. World Health Organization criteria: (Comparing with young normal sex matched population) - Normal: T-score at or above -1 SD (standard deviation) - Osteopenia: T-score between -1 and -2.5 SD - Osteoporosis: T-score at or below -2.5 SD The NOF recommends that FDA-approved medical therapies be considered in post-menopausal women and men age >/= 50 years with a: * Hip or vertebral fracture, or * T-score of /= 20% for major osteoporotic fractures or * >/= 3% for hip fractures All treatment decisions require clinical judgement and consideration of individual patient factors, including patient preferences, comorbidities, previous drug use, risk factors not captured in the FRAX registered model (e.g., frailty, falls, vitamin D deficiency, increased bone turnover, interval significant decline in bone density) and possible under- or over-estimation of fracture risk by FRAX. Interpreted by: Raghu Buchanan DO Preliminary Report By: Raghu Buchanan DO Electronically signed By Raghu Buchanan DO Dictated Date: 08/25/2024 3:39:09 PM Prelim Date: 08/25/2024 3:40:14 PM Sign Date: 08/25/2024 3:40:14 PM Ordering Provider: [facility]08-22-2024 Note ORIGINAL EXAMINATION: CT Angiogram of the head with intravenous contrast TECHNIQUE: CT angiogram of the head was obtained. Sagittal and coronal reformations and maximum intensity projection reconstructions were provided. Images were obtained before and after the uneventful administration of 100 mL Isovue 370 3D reformatted MIP images were provided One or more of the following dose reduction techniques were used: automated exposure control, adjustment of the mA and/or kV according to patient size, or use of iterative reconstruction technique. DICOM images are available. COMPARISON: Same day CTA neck and noncontrast CT head 09/02/2023 HISTORY: ORDERING SYSTEM PROVIDED HISTORY: Reason for Exam: PERSISTENT DIZZINESS FINDINGS: Brain Parenchyma: No acute intracranial hemorrhage, midline shift, mass effect or an acute transcortical infarct. The dooley-white matter junctions are preserved. Moderate generalized parenchymal volume loss is present. Scattered areas of decreased attenuation in the subcortical, periventricular, deep white matter statistically reflect mild chronic microvascular white matter ischemic disease. Ventricles: Proportionally prominent ventricular to sulcal size on the basis of parenchymal volume loss. Paranasal sinuses: Clear. Rightward nasal septal deviation. Bilateral, left larger than right demond bullosa of the middle nasal turbinates. Bilaterally patent ostiomeatal units. Mastoid air cells: Small right mastoid effusion. Trace fluid on the left side. Bones: No acute osseous pathology or focal lesion. Moderate narrowing of the bilateral temporomandibular joints. Cerebral angiogram Aneurysm: No aneurysm identified. Anterior circulation: Internal carotid arteries:Atherosclerotic calcifications of the bilateral internal carotid siphons resulting in mild stenoses. Ophthalmic arteries:The bilateral proximal ophthalmic arteries are patent. Anterior cerebral arteries:No flow-limiting stenosis Middle cerebral arteries:No flow-limiting stenosis. Posterior cerebral arteries:No significant flow-limiting stenosis. Anterior communicating artery:Present. Posterior communicating arteries:Bilaterally aplastic or hypoplastic. Posterior circulation: Basilar artery:No flow-limiting stenosis V3/V4 vertebral arteries:No significant flow-limiting stenosis. Dural venous sinuses:Patent. IMPRESSION: 1. No significant flow-limiting stenosis or aneurysm. 2. Moderate generalized parenchymal volume loss and mild chronic microvascular white matter ischemic disease. 3. Small right and trace left mastoid effusions. 4. Moderate narrowing of the bilateral temporomandibular joints. Interpreted by: Azam Art MD Preliminary Report By: Azam Art MD Electronically signed By Azam Art MD Dictated Date: 05/15/2024 9:38:15 AM Prelim Date: 05/15/2024 9:48:09 AM Sign Date: 05/15/2024 9:48:09 AM Ordering Provider: [facility]08[facility]22-2024 Note ORIGINAL EXAMINATION: CTA neck: TECHNIQUE: Contiguous spiral images were obtained in the axial plane, following the administration of intravenous contrast using CT angiographic protocol. Sagittal and coronal images were reconstructed from the axial plane acquisition. Additional 3D reformatted MIP reconstructions were presented to aid in the interpretation of this study. Images were obtained from the skull base through the upper lobes. Contrast: 100 mL Isovue 370 One or more the following dose reduction techniques were used:automated exposure control, adjustment of the mA and/or kV according to patient size, or use of iterative reconstruction technique. Additional comment: None. COMPARISON: Same day CTA head HISTORY: ORDERING SYSTEM PROVIDED HISTORY: Reason for Exam: PERSISTENT DIZZINESS FINDINGS: Neck Angiogram Aorta: No significant atherosclerotic plaque. Patent innominate, left common carotid and bilateral subclavian arteries without a hemodynamically significant stenosis. Calcified plaque of the left vertebral artery disc proximal to the origin of the left vertebral artery noted. Right common carotid artery: No hemodynamically significant flow-limiting stenosis. Right internal carotid artery: Mild calcified plaque of the carotid bulb without a measurable stenosis. Right external carotid artery: Punctate calcification of the proximal external carotid artery. No hemodynamically significant flow-limiting stenosis. Left common carotid artery: No hemodynamically significant flow-limiting stenosis. Left internal carotid artery: Calcified plaque of the carotid bulb causing a 25% stenosis.. Left external carotid artery: Punctate calcified plaque of the proximal external carotid artery. No hemodynamically significant flow-limiting stenosis. V1/V2 vertebral arteries: No hemodynamically significant flow-limiting stenosis. Vertebral artery dominance: Left Neck Soft tissues: Normal. Bones: No acute osseous pathology. Straightening of the normal cervical lordosis. Severe spondylotic changes involve C5-C6, C6-C7 and to lesser extent C4-C5. Severe degenerative change of the bilateral sternoclavicular joints noted. And 1 Lung apices: Clear. IMPRESSION: 1. No hemodynamically significant flow-limiting stenosis. 2. Calcified plaque of the bilateral carotid bulbs causing a 25% stenosis on the left and no measurable stenosis on the right. 3. 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 4. 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 The estimate of the degree of stenosis included in this report is based on the NASCET method for calculating stenosis, using the internal carotid artery distal to the stenosis as the reference point. Interpreted by: Azam Art MD Preliminary Report By: Azam Art MD Electronically signed By Azam Art MD Dictated Date: 05/15/2024 9:48:18 AM Prelim Date: 05/15/2024 9:55:06 AM Sign Date: 05/15/2024 9:55:06 AM [facility] Exam Date Time Procedure Performing Provider Status 05/15/24 8:16 AM VL Carotid US/Dopple r Complete - CV Auth (Verified) [facility] 12-10-2023 Hospital Discharge instructions Patient Education 09/02/2023 13:11:04 Near Syncope, Unknown Near-Fainting with Uncertain Cause Fainting (syncope) is a temporary loss of consciousness (passing out). This happens when blood flowto the brain is reduced. Near-fainting (near-syncope) is [...] fall and injure yourself, or are driving. Youmay need more tests. It is very important [...] is not known, another spell could occur withoutwarning. To stay safe, do not drive a car or use dangerous equipment. Do not take a bath alone. Usea shower instead. Do not swim alone. You [...] when standing up too quickly or straining [phone] [employer]. [address] [place] [address]. All rights reserved. This information is not intended as a substitute for professional medical care. Always follow yourhealthcare professional's instructions. 09/02/2023 13:11:02 Dizziness, Uncertain Cause Dizziness (Uncertain Cause) Dizziness is a common symptom. It may be described as lightheadedness, spinning, or feeling like you are going to faint. Dizziness can have many causes. Be sure to tell the healthcare provider about: All medicines you take, including prescription, [id number], herbs, and supplements Any other symptoms you [...] Chest, arm, neck, back, or jaw pain [id number] [employer] [place] [address]. All rights reserved. This information is not intended as a substitute for professional medical care. Always follow yourhealthcare professional's instructions. Follow Up Care 09/02/2023 11:01:47 With:ARGELIA DARBY DO Address: [address] [place] [phone] When:2-[address] [facility] 12-10-2023 Emergency department Discharge summary Discharge Instructions Thank you for allowing [facility] to assist you with your healthcare needs. The following is importantdischarge information regarding your hospital visit. Diagnosis from Today's Visit Dizziness Head pressure What to Do Next Instructions from Your Care Team No qualifying data available. Post Acute Orders No qualifying data available. You Need to Schedule the Following Appointments Follow Up with ARGELIA DARBY DO When Within 2-4 days Where: [address] [place] [phone] Allergies ASA/caffeine/propoxyphene (Unknown) Darvon (vomiting) atorvastatin (Unknown) codeine phosphate (Nausea) simvastatin (myalgias) Medications Please ask your primary doctor or pharmacist before taking any other medication not listed, including over the counter drugs, herbal medications, vitamins and or supplements as they may interact withyour home medications. What How Much When Why [...] consciousness (passing out). This happens when blood flowto the brain is reduced. Near-fainting (near-syncope) is [...] fall and injure yourself, or are driving. Youmay need more tests. It is very important [...] is not known, another spell could occur withoutwarning. To stay safe, do not drive a car or use dangerous equipment. Do not take a bath alone. Usea shower instead. Do not swim alone. You [...] when standing up too quickly or straining [phone] [employer]. [address] [place] [address]. All rights reserved. This information is not intended as a substitute for professional medical care. Always follow yourhealthcare professional's instructions. Dizziness (Uncertain Cause) Dizziness is a common symptom. It may be described as lightheadedness, spinning, or feeling like you are going to faint. Dizziness can have many causes. Be sure to tell the healthcare provider about: All medicines you take, including prescription, [id number], herbs, and supplements Any other symptoms you [...] Chest, arm, neck, back, or jaw pain [phone] [employer]. [address] [place] [address]. All rights reserved. This information is not intended as a substitute for professional medical care. Always follow yourhealthcare professional's instructions. Additional Information VACCINATE! IT SAVES LIVES! Members of the community who have not yet received the COVID-19 vaccine and would like to receive it can visit one of [facility] vaccine clinics. There are many vaccine clinic locations within the [facility]. For locations and available times, please visit www.gettheshot.coronavirus.[place].gov/. It is important to note that some COVID mobile vaccine clinics are held outdoors and may be canceled in rainy or stormy conditions. To learn more about pediatric vaccinations (ages 5-11), we invite you to visit the [facility] webpage. https://www.[facility].org/pages/1579-Ueljf-Kvsbvtbgsfl-Orvrferxuv-Qqutg-Jgw stions.htmlTo learn more about the COVID-19 vaccine, we invite you to visit the CDC website for a list of frequently asked questions. https://www.cdc.gov/coronavirus/2019-ncov/vaccines/faq.html [facility] Patient Portal Access Instructions: Stay connected with your healthcare team and access your personal medical information anytime with the [facility] [employer] [facility] Patient Portal. If you would like a full copy of your medical records please contact the [facility] Medical Records Department Sunday through Sunday between 8a.m. and 4:30p.m. Please follow the directions below to access the portal: 1.Access the email account you provided upon registration to the [facility].2.Look for an invitation email from [facility].3.Open the email and access the invitation link: Accept Invitation to [employer]4.Fill in the required french to create your account. Sign into [email or web address] with your username and password that you [...] you will allow to register on the [employer] Patient Portal for access to your information. You can also access the [employer] Patient Portal on the [employer]. Simply click on Health Records under [employer] and then click on the [employer] logo. HOW TO SAFELY DISPOSE OF PRESCRIPTION MEDICATIONS Please use one of the following methods to safely dispose of your unused medications. 1.Use a drug disposal kit: the drug disposal pouch allows you to safely discard your old and unuseddrugs. Ask your nurse to give you one when you are discharged.2.Visit a local take-back location: Many local pharmacies and police departments have programs that collect old and unwanted prescriptiondrugs. Call your local pharmacy or go to http://Vook.Parenthoods/0I7Fr4h to find one close to you.3.Make use of household items: Use cat litter or old coffee grounds to dispose medications if other options arenot available. Mix your drugs with these household products, seal them in an airtight container andthrow it into the garbage. Call [facility]: [phone] to be sure your drugs can be [...] drowsiness, such as benzodiazepines, also known as benzos,including diazepam and alprazolam, muscle relaxants or sleep aids. Never sell or share prescriptionopioids. This is illegal. Store opioids in a secure place and out of reach of others (including children, family, friends and visitors). The last page(s) of this document has been signed and retained as a CHART COPY Signatures Patient Education Materials Near Syncope, Unknown Dizziness, Uncertain Cause Medication Leaflets My discharge plan and instructions have been reviewed and explained to me and I,JERO LEWIS understand my current condition and have read and understand these discharge instructions. I have received a written copy of the plan/instructions. If I have questions, I am aware that I should contact my doctor. Patient/Group Sales Coordinator Signature: Date/Time: Relationship to Patient: Witness Name/Signature: Date/Time: [facility]12-10-2023 Note ORIGINAL EXAMINATION: ONE XRAY VIEW OF [...] Date: 09/02/2023 12:13:24 PM Ordering Provider: YAZMIN [facility]12-10-2023 Note ORIGINAL EXAMINATION: CT OF THE HEAD [...] Date: 09/02/2023 12:12:26 PM Ordering Provider: YAZMIN [facility]12-10-2023 NoteSinus rhythm Borderline left axis deviation Anteroseptal infarct, old Compared to ECG at 07/27/2023 20:20:02 BORDERLINE ECG Electronic Signature: YAZMIN ANDERS DO 09/02/2023 11:44:59[facility] 11-15-2023 Discharge summary Author Juan Diego Marks [facility] August 08, 2023 7:38pm Note Date/Time August 08, 2023 7:34pm [facility] Medical Records Department [address] [place] [address] Discharge Summary 08/08/231931 MR#: [id number] Acct: [id number] Name: JERO LEWIS Rep #:[id number] : 1945 77 From: Juan Diego Marks MD PCP: Dr. Argelia Darby DO Status:ADM IN Location: [place] [address] Providers Date of Admission: 07/31/23 Primary Care Physician: Dr. Argelia Darby, Reason For Visit: HYPONATREMIA/COVID Diagnosis Discharge Diagnosis (1) Debility: Status: Acute Code(s): R53.81 - Other malaise (2) COVID-19: Status: Acute Code(s): U07.1 - COVID-19 (3) Hyponatremia: Status: Acute Code(s): E87.1 - Hypo-osmolality and hyponatremia (4) Hypomagnesemia: Status: Acute Code(s): E83.42 - Hypomagnesemia (5) HTN (hypertension): Status: Chronic Code(s): I10 - Essential (primary) hypertension (6) Hyperlipidemia: Status: Acute Code(s): E78.5 - Hyperlipidemia, unspecified (7) Depression: Status: Acute Code(s): F32.A - Depression, unspecified (8) Anxiety: Status: Acute Code(s): F41.9 - Anxiety disorder, unspecified (9) Osteoarthritis: Status: Acute Code(s): M19.90 - Unspecified osteoarthritis, unspecified site Plan 77 year old female with below past medical history hospitalized for weakness secondary to covid, hyponatremia, hypomagnesemia, admitted to TCU with debility,here for rehabilitation, strengthening, prior to discharge home alone. * Debility - PT/OT. * Pain - Tylenol 1000mg q6 prn pain (1-10). * Bowel - senna/colace 1 tablet bid prn, Magnesium citrate 300ml po daily prn. * Adult immunization - Administer pneumonia vaccine, covid vaccine, flu vaccine as appropriate. * DVT prophylaxis - Lovenox 40mg sc daily. * Hypertension - Losartan 100mg daily, Amlodipine 5mg daily * Hyperlipidemia - Atorvastatin 20mg daily. * Hypothyroidism - Levothyroxine 112mcg daily. * BPPV - Meclizine 12.5mg tid prn. * Hyponatremia - sodium chloride 1gm bid. Medications at Discharge Home Medications amlodipine 5 mg tablet 5 mg PO DAILY bp 07/28/23 atorvastatin 20 mg tablet 20 mg PO DAILY hld 07/28/23 levothyroxine 112 mcg tablet 112 mcg PO DAILY thyroid 07/28/23 meclizine 12.5 mg tablet 12.5 mg PO TID PRN dizzy 07/28/23 olmesartan 40 mg tablet 40 mg PO DAILY see 07/28/23 sodium chloride 1,000 mg soluble tablet 1,000 mg PO BID supplement #60 tabs 07/31/23 acetaminophen 500 mg tablet 1,000 mg (2 x 500 mg) PO Q6H PRN PRN Pain Score 1- 10#0 tabs 08/08/23 furosemide 20 mg tablet 20 mg PO DAILY 30 days #30 tabs 08/08/23 meloxicam 15 mg tablet 15 mg PO DAILY #0 tabs 08/08/23 potassium chloride 20 mEq tablet,extended release(part/cryst) (Klor-Con M) 20 meq PO DAILYCM 30 days #30 tabs 08/08/23 sertraline 50 mg tablet 50 mg PO DAILY #0 tabs 08/08/23 tramadol 50 mg tablet 50 mg PO Q6H PRN PRN Pain Score 6-10 7 days #28 tabs 08/08/23 Hospital Course Operations None Procedures None Summary of Care Provided Minutes Spent on Discharge: 35 Hospital Course: 77 year old female with below past medical history hospitalized for weakness secondary to covid, hyponatremia, hypomagnesemia, admitted to TCU with debility,here for rehabilitation, strengthening, prior to discharge home alone. Discharge home alone 08/14/2023, [facility] [facility], [facility] [place]. Physical Exam Const alert General Appearance: cooperative HEENT normocephalic Eyes PERRL and EOMs intact bilaterally Neck supple, no JVD and no carotid bruits Resp normal respiratory effort, normal air movement and clear to auscultation bilaterally Cardio regular rate and regular rhythm GI normal to inspection, nondistended, normoactive bowel sounds, non-tender and non-distended Extremity normal capillary refill General Extremity: Negative for edema Skin no rashes or lesions noted General Skin Exam: no breakdown Psych affect normal Appearance: appropriate Weight / BMI Weight Weight: 82.917 kg Body Mass Index (BMI) 29.5 ABG / Lab / Microbiology Data 08/08/23 05:20 08/08/23 05:20 Laboratory: Laboratory Results - last 24 hr 08/08/23 05:20: WBC 4.1 L, RBC 3.84 L, Hgb 10.9 L, Hct 34.4 L, MCV 89.6, MCH 28.4, MCHC 31.7 L, RDW Std Deviation 43.2, RDW Coeff of Alejo 13.3, Plt Count 291,MPV 9.2, Immature Gran % (Auto) 0.200, Neut % (Auto) 43.2 L, Lymph % (Auto) 39.3, Meigs % (Auto) 9.7, Eos % (Auto) 6.6 H, Baso % (Auto) 1.0, Absolute Neuts (auto) 1.8 L, Absolute Lymphs (auto) 1.62, Nucleated RBC % 0, Sodium 136, Potassium 4.3, Chloride 103, Carbon Dioxide 32.0, Anion Gap 1 L, BUN 19 H, Creatinine 0.80, Estim Creat Clear Calc 53.38, Est GFR (MDRD) Af Amer 88, Est GFR (MDRD) Non-Af 73, BUN/Creatinine Ratio 23.6 H, Glucose 93, Calcium 8.9 D/C Instructions Discharge Diet: No restrictions Discharge Activity: Return to Normal Activity, May Shower and Use Walker Weight Bearing Status: Weight bearing as tolerated Call your doctor if you observe: Fever of 101 or Higher, Inability to urinate, Inability to have a bowel movement, Shortness of breath, Dizziness, Fainting spells, Swelling in the ankles, Chest pain and Uncontrolled pain Additional Instructions: Discharge home alone 08/14/2023, [facility], [facility] [employer]. Please Follow Up With: Dr. Snowden Meaningful Use Info Meaningful Use Diagnoses (Choose all that apply): None applicable Discharge Plan Admission Admit Date/Time: 07/31/23 15:21 Primary Reason for Your Visit: Debility. Attending Provider: Juan Diego Marks Chi Primary Care Provider: Argelia Darby Instructions Additional Instructions / Restrictions: Discharge home alone 08/14/2023, [facility], [facility] Van. Discharge Orders/Prescriptions Prescriptions: New acetaminophen 500 mg Tablet 1,000 mg PO Q6H PRN PRN (Reason: Pain Score 1-10) Qty: 0 0RF meloxicam 15 mg Tablet 15 mg PO DAILY Qty: 0 0RF tramadol 50 mg Tablet 50 mg PO Q6H PRN PRN (Reason: Pain Score 6-10) 7 Days Qty: 28 0RF potassium chloride [Klor-Con M20] 20 mEq Tablet,Er Particles/Crystals 20 meq PO DAILYCM 30 Days Qty: 30 0RF furosemide 20 mg Tablet 20 mg PO DAILY 30 Days Qty: 30 0RF sertraline 50 mg Tablet 50 mg PO DAILY Qty: 0 0RF Continued amlodipine 5 mg tablet 5 mg PO DAILY Patient Comments: take 1 tablet by mouth once daily atorvastatin 20 mg tablet 20 mg PO DAILY Patient Comments: take 1 tablet by mouth once daily meclizine 12.5 mg tablet 12.5 mg PO TID PRN Patient Comments: take 1 tablet by mouth three times a day if needed for dizziness olmesartan 40 mg tablet 40 mg PO DAILY Patient Comments: take 1 tablet by mouth once daily levothyroxine 112 mcg tablet 112 mcg PO DAILY Patient Comments: take 1 tablet by mouth once daily EXCEPT FOR FRIDAYS sodium chloride 1,000 mg tablet,soluble 1,000 mg PO BID Qty: 60 0RF Patient Comments: take 1 tablet by mouth daily EXCEPT TAKE 2 TABS ON SUNDAY, WEDNESDAYS AND FRIDAYS Discontinued sertraline [Zoloft] 25 MG tablet 25 mg PO DAILY Hold Instructions: Resume on 08/08/23. furosemide 20 MG tablet 20 mg PO DAILY Hold Instructions: Resume on 08/08/23. Weigh self as included in instructions Referrals / Follow Up: Argelia Darby DO [Primary Care Provider] - Disposition Disposition (needs filled in before D/C Order can be placed): Home, Self Care 08/08/231937 <Electronically signed by Juan Diego Marks MD> Cosigner Signature (if applicable): CC: Dr. Argelia Darby DO; Dr. Juan Diego Marks MD~ Signed [facility] Work Phone: [phone]) 515-415911-09-2023 Progress note Author Marisa Najera [facility] August 02, 2023 10:43am Note Date/Time August 02, 2023 1 0:11am [facility] Medical Records Department [address] [place] [address] Progress Note - Pharmacy 08/02/23 1006 MR#: [id number] Acct: [id number] Name: JERO LEWIS Rep #:[id number] : 1945 77 From: Marisa Najera PCP: Dr. Argelia Darby, DO Status:ADM IN Location: [place] [address] TCU RX Drug Regimen Review Subjective/Objective Subjective/Objective: Subjective: 77 YOF admitted to TCU s/p hospitalization at an outside facility secondary to COVID-19. Patient was also positive for significant weakness, malaise, fatigue making it unsafe for her to go home at time of discharge. Admitted to TCU 07/31/23 for strengthening and rehabilitation with plan to go home at discharge where she resides with her . Objective: Allergies propoxyphene HCl [From Darvon] Allergy (Verified 07/28/23 01:03) Nausea codeine Adverse Reaction (Intermediate, Verified 07/28/23 01:03) Nausea simvastatin Adverse Reaction (Intermediate, Verified 07/28/23 01:03) Myalgia Current Medications Generic Name Dose Route Start Last Admin Trade Name Freq PRN Reason Stop Dose Admin Acetaminophen 1,000 mg 07/31/23 16:34 08/02/23 09:21 Acetaminophen 500 Mg Tablet PO 1,000 mg Q6H PRN PRN Administration Pain Score 1-10 Amlodipine Besylate 5 mg 08/01/23 10:00 08/02/23 09:04 Amlodipine 5 Mg Tablet PO 5 mg DAILY JENNIFER Administration Protocol Atorvastatin Calcium 20 mg 08/01/23 10:00 08/02/23 09:04 Atorvastatin Calcium 20 Mg Tablet PO 20 mg DAILY JENNIFER Administration Calamine/Phenol 1 applic 08/02/23 10:00 Menthol/Lanolin/Calamine/Znox 113 Gm Tube TOPICAL BID JENNIFER Protocol Enoxaparin Sodium 40 mg 08/01/23 06:00 08/02/23 05:50 Enoxaparin 40 Mg/0.4 Ml Syringe SC 40 mg DAILY@0600 JENNIFER Administration Levothyroxine Sodium 112 mcg 08/01/23 06:00 08/02/23 05:50 Levothyroxine 112 Mcg Tablet PO 112 mcg DAILY@0600 JENNIFER Administration Losartan Potassium 100 mg 08/01/23 10:00 08/02/23 09:03 Losartan Potassium 100 Mg Tablet PO 100 mg DAILY JENNIFER Administration Magnesium Citrate 300 ml 07/31/23 16:35 08/02/23 09:21 Magnesium Citrate 300 Ml PO 300 ml DAILY PRN Administration CONSTIPATION Meclizine HCl 12.5 mg 07/31/23 15:45 08/02/23 09:08 Meclizine 12.5 Mg Tablet PO 12.5 mg TID PRN JENNIFER Administration Miconazole Nitrate 1 applic 07/31/23 22:00 08/02/23 09:05 Miconazole Nitrate 43 Gm Bottle TOPICAL 1 applic BID JENNIFER Administration Protocol Potassium Chloride 20 meq 08/02/23 08:00 08/02/23 09:04 Potassium Chloride Oral Tablet 20 Meq PO 20 meq DAILYCM JENNIFER Administration Senna/Docusate Sodium 1 tablet 08/02/23 22:00 Senna/Docusate Sodium 1 Tablet PO BID JENNIFER Sertraline HCl 50 mg 08/02/23 10:00 08/02/23 09:04 Sertraline 50 Mg Tablet PO 50 mg DAILY JENNIFER Administration Sodium Chloride 1 gm 07/31/23 22:00 08/02/23 09:04 Sodium Chloride 1 Gm Tablet PO 1 gm BID JENNIFER Administration Sodium Chloride 10 - 40 ml 07/31/23 15:50 08/01/23 10:30 0.9% Saline Lock 10 Ml Syringe IV 10 ml UD PRN Administration SALINE FLUSH Tuberculin PPD 0.1 ml 08/08/23 10:00 Tuberculin,Purif.Prot.Deriv. 50 Tu/Ml Vial ID 08/08/23 10:01 X1 ONE Problem List (Updated 07/31/23 @ 16:[address] Juan Diego Marks MD) Osteoarthritis (Acute) Anxiety (Acute) Depression (Acute) Hyperlipidemia (Acute) HTN (hypertension) (Chronic) Hypomagnesemia (Acute) Debility (Acute) Hyponatremia (Acute) COVID-19 (Acute) Vital Signs Temp Pulse Resp BP Pulse Ox O2 Del Method O2 Flow Rate 97.0 F L 71 18 133/93 H 98 Room Air 2 08/02/23 09:41 08/02/23 09:41 08/02/23 09:41 08/02/23 09:41 08/02/23 09:41 08/02/23 09:41 08/02/23 07:48 Oxygen Flow Rate (L/min) 2 Oxygen Delivery Method Room Air Weight: 83.189 kg Body Mass Index (BMI) 29.6 Sodium 134 mmol/L (136-145) L 08/01/23 05:36 Potassium 3.5 mmol/L (3.5-5.1) 08/01/23 05:36 Chloride 101 mmol/L (98-107) 08/01/23 05:36 Carbon Dioxide 28.0 mmol/L (21.0-32.0) 08/01/23 05:36 Anion Gap 5 (5-15) 08/01/23 05:36 BUN 9 mg/dL (7-18) 08/01/23 05:36 Creatinine 0.58 mg/dL (0.55-1.02) 08/01/23 05:36 Est GFR (MDRD) Af Amer 129 mL/min (>60) 08/01/23 05:36 Est GFR (MDRD) Non-Af 106 mL/min (>60) 08/01/23 05:36 BUN/Creatinine Ratio 15.5 RATIO (10-20) 08/01/23 05:36 Glucose 102 mg/dL (74-106) 08/01/23 05:36 Assessment/Plan: 1. Pain: Tylenol 1000mg PO Q6h PRN Pain 1-10. Please continue to monitor for increased/decreased S/S pain, PRN medication usage, LFT with frequent Tylenol use. - To date, the patient has used 5 doses of PRN medication. Pre-medication pain rated 4-6, post-medication pain rated 0-2. Appears medication is controlling the patient's pain adequately at this time. 2. HTN/HLD: Norvasc 5mg PO Daily, Lipitor 20mg PO Daily, Losartan 100mg PO daily. Please continue to monitor BP (range 123-160/53-93), swelling/edema, HR (range 60-80), lipid panel annually or sooner if clinically indicated (none on file), renal function (SCr 0.58 on 08/01). 3. Hypothyroidism: Synthroid 112mcg PO Daily. Please continue to monitor for S/Shypothyroidism, thyroid function as clinically indicated (TSH WNL on 07/28/23. 4. Hyponatremia/Hypokalemia: Sodium chloride 1g PO BID, KCl 20mEq PO Daily. Please continue to monitor sodium levels (133 on 07/31), potassium levels (last 3.2 on 07/31), stomach upset, n/v. 5. Vertigo: Meclizine 12.5mg PO TID PRN. Please continue to monitor for This is a Beer's Criteria medication which can increase the risk of anticholinergic sideeffects in patients >65 years of age. Please continue to monitor for unwanted ADR and evaluate for alternative treatments if ADR becomes intolerable to the patient. 6. DVT Prophylaxis: Lovenox 40mg SC Daily. Please continue to monitor for S/S bleeding/bruising, H/H (Hgb 11.5/Hct 33.4 on 08/01). 7. Skin Integrity: Calmoseptine topically BID, Desonex topically BID. Please continue to monitor for skin irritation, redness/soreness, ulcer formations. 8. Bowel: Senna/docusate 1 tab PO BID, Magnesium citrate 300mL PO Daily PRN. Please continue to monitor for increased/decreased constipation and/or diarrhea. - To date; the patient has not had a documented bowel movement. Please consider giving PRN medication to help facilitate a BM, thank you. Assessment/Plan for indications treated with psychotropic medications: 1. Depression/Anxiety: Zoloft 50mg PO Daily. Please continue to monitor sodium levels, consider a GDR if clinically indicated or discontinuation given hyponatremia, thank you. Medical chart and medication regimen reviewed. The following medication irregularities or issues were identified: 1. Hyperlipidemia: Patient currently on Lipitor, no lipid panel on file. Please obtain a lipid panel to assess levels as clinically indicated, thank you. 2. Depression/Anxiety: Zoloft 50mg PO Daily. Please continue to monitor sodium levels, consider a GDR if clinically indicated or discontinuation given hyponatremia, thank you. Date Date of Note:: 08/02/23 08/02/23 1043 <Electronically signed by Marisa Najera> Marisa Najera Cosigner Signature (if applicable): CC: ~ Signed [facility] Work Phone: 1([phone]) 322-440211-08-2023 History and physical note Author Juan Diego Marks [facility] August 01, 2023 5:35pm Note Date/Time July 31, 2023 4 :23pm [facility] Medical Records Department [address] [place] [address] History & Physical Exam 07/31/23 1619 MR#: [id number] Acct: [id number] Name: JERO LEWIS Rep #:[id number] : 1945 77 From: Juan Diego Marks MD PCP: Dr. Argelia Darby, DO Status:ADM IN Location: [address] HPI - General General Date of Admission: 07/31/23 Date of Service: 07/31/23 Chief Complaint: Here for rehabilitation. HPI Narrative JERO LEWIS, is a 77 Female who presents with followin07/28/2023 Admit to [facility] from [facility]. +covid 07/24/2023, fatigue, malaise, nausea/vomiting, dizziness, loose stools, sore throat, myalgias, chills. Sodium 119, chronic hyponatremia on sodium chloride tablets, Chest X-ray negative. [facility] Emergency department gave normal saline 750ml iv, KCL 40meq,Magnesium 2gm iv, Zofran 4mg iv, Morphine 2mg iv, Tylenol 650mg x 1. IV fluids for hyponatremia, dehydration. Repeat magnesium level. 07/28/2023 Pulsox 100% on room air. Consult Nephrology for hyponatremia. 07/29/2023 Doing well. Stop HCTZ for hyponatremia. Magnesium level 2.1. 07/30/2023 Weak, unsafe to go home to [facility], recommend SNF. Decadron not necessary for covid. Sodium chloride 1gm bid, stop Lasix, stop HCTZ, stop Sertraline for hyponatremia. 07/31/2023 Admit to TCU with debility, here for rehabilitation, strengthening, prior to discharge home with . [facility] Medical History (Updated 07/31/23 @ 16:[address] Juan Diego Marks MD) Allergic rhinitis Anxiety and depression Kimberlee disease Chronic hyponatremia COVID-19 History of endometrial biopsy HTN (hypertension) Hyperlipidemia Hypothyroidism Home Medications furosemide 20 mg tablet 20 mg PO DAILY 07/26/15 [History Last Taken 07/27/23] sertraline 25 mg tablet (Zoloft) 25 mg PO DAILY mood 07/26/15 [History Last Taken 07/27/23] amlodipine 5 mg tablet 5 mg PO DAILY bp 07/28/23 [History Last Taken 07/31/23] atorvastatin 20 mg tablet 20 mg PO DAILY hld 07/28/23 [History Last Taken 07/30/23] levothyroxine 112 mcg tablet 112 mcg PO DAILY thyroid 07/28/23 [History Last Taken 07/27/23] meclizine 12.5 mg tablet 12.5 mg PO TID PRN dizzy 07/28/23 [History Last Taken 07/27/23] olmesartan 40 mg tablet 40 mg PO DAILY see md 07/28/23 [History Last Taken 07/31/23] sodium chloride 1,000 mg soluble tablet 1,000 mg PO BID supplement #60 tabs 07/31/23 [Rx Last Taken 07/31/23] Allergy/AdvReac Type Severity Reaction Status Date / Time propoxyphene HCl Allergy Nausea Verified 07/28/23 01:03 [From Darvon] codeine AdvReac Intermediate Nausea Verified 07/28/23 01:03 simvastatin AdvReac Intermediate Myalgia Verified 07/28/23 01:03 Family History Mother CVA (cerebral vascular accident) Father Cromwell disease Son Cromwell disease Brother Heart disease Hypertension Daughter Lupus Sister Melanoma Surgical History H/O cone biopsy of cervix H/O dilation and curettage History of tonsillectomy Hx of myringotomy Hx of tubal ligation S/P thyroid biopsy Social History (Updated 07/31/23 @ 16:[address] Juan Diego Marks MD) household members: none Smoking Status: Never smoker alcohol intake: never substance use type: does not use ROS Constitutional Constitutional: Reports weakness; Denies chills, fever(s) or weight gain ENT HEENT: Denies headache(s), nasal congestion or nasal discharge Cardiovascular Cardiovascular: Denies chest pain or palpitations Respiratory/Chest Respiratory/Chest: Denies cough, excessive phlegm production or shortness of breath with exertion Gastrointestinal Gastrointestinal: Denies abdominal pain, nausea or vomiting Genitourinary Genitourinary: Denies dysuria Musculoskeletal Musculoskeletal: Denies joint pain or joint swelling Integumentary Integumentary: Denies rash or wounds Neurologic Neurologic: Denies focal weakness, numbness or tingling Psychiatric Psychiatric: Denies anxiety, auditory hallucinations, depression, homicidal ideation or suicidal ideation Vital Signs Vital Signs Vital Signs: 07/31/23 15:21 Temperature 97.2 F L Temperature Source Temporal Pulse Rate 61 Respiratory Rate 20 H Blood Pressure 140/65 H Blood Pressure Mean 90 Blood Pressure Source Monitor Blood Pressure Position Semi-Fowlers Blood Pressure Location Right Arm Pulse Ox 98 Oxygen Delivery Method Room Air Weight Weight: 83.189 kg Body Mass Index (BMI) 29.6 Physical Exam Const alert General Appearance: cooperative HEENT normocephalic Eyes PERRL and EOMs intact bilaterally Neck supple, no JVD and no carotid bruits Resp normal respiratory effort, normal air movement and clear to auscultation bilaterally Cardio regular rate and regular rhythm GI normal to inspection, nondistended, normoactive bowel sounds, non-tender and non-distended Extremity normal capillary refill General Extremity: Negative for edema Skin no rashes or lesions noted General Skin Exam: no breakdown Psych affect normal Appearance: appropriate Assessment & Plan Assessment/Plan (1) Debility: (2) COVID-19: (3) Hyponatremia: (4) Hypomagnesemia: (5) HTN (hypertension): (6) Hyperlipidemia: (7) Depression: (8) Anxiety: (9) Osteoarthritis: PLAN: Plan 77 year old female with below past medical history hospitalized for weakness secondary to covid, hyponatremia, hypomagnesemia, admitted to TCU with debility,here for rehabilitation, strengthening, prior to discharge home alone. * Debility - PT/OT. * Pain - Tylenol 1000mg q6 prn pain (1-10). * Bowel - senna/colace 1 tablet bid prn, Magnesium citrate 300ml po daily prn. * Adult immunization - Administer pneumonia vaccine, covid vaccine, flu vaccine as appropriate. * DVT prophylaxis - Lovenox 40mg sc daily. * Hypertension - Losartan 100mg daily, Amlodipine 5mg daily * Hyperlipidemia - Atorvastatin 20mg daily. * Hypothyroidism - Levothyroxine 112mcg daily. * BPPV - Meclizine 12.5mg tid prn. * Hyponatremia - sodium chloride 1gm bid. 07/31/23 1634 <Electronically signed by Juan Diego Marks MD> Cosigner Signature (if applicable): CC: Dr. Argelia Darby DO; Dr. Juan Diego Marks MD~ Signed ADDENDUM by Dr. Juan Diego Marks MD on 08/01/23 at 1735 Addendum Depression - Sertraline 50mg daily, stable chronic mcc use, GDR not recommended, monitor sodium. 08/01/23 1735<Electronically signed by Juan Diego Marks MD> Cosigner Signature (if applicable): cc: Dr. Argelia Darby DO; Dr. Juan Diego Marks MD ~* Signed [facility] Work Phone: 1(894) 639-192311-07-2023 Progress note Author De Snowden [facility] July 31, 2023 12:46pm Note Date/Time July 31, 2023 1 2:46pm [facility] Medical Records Department [address] [place] [address] Progress Note - Nephrology 07/31/23 1244 MR#: [id number] Acct: [id number] Name: JERO LEWIS Rep #:[id number] : 1945 77 From: De arenas MD PCP: Dr. Argelia Darby DO Status:ADM IN [facility] Subjective Subjective No new events Objective Data Objective Data Vital Signs: Vital Signs Temp Pulse Resp BP Pulse Ox O2 Del Method O2 Flow Rate 98 F 65 18 156/64 H 100 Nasal Cannula 2 07/31/23 10:28 07/31/23 11:00 07/31/23 10:28 07/31/23 10:28 07/31/23 10:28 07/31/23 10:32 07/31/23 10:32 Oxygen Flow Rate (L/min) 2 Oxygen Delivery Method Nasal Cannula Weight: 83.6 kg Body Mass Index (BMI) 30.7 Intake & Output: Intake and Output for Last 24 Hours 07/29/23 07/30/23 07/31/23 23:59 23:59 23:59 Intake Total 1200 / 1200 Output Total Balance 1200 / 1200 Lab / Micro Data 07/31/23 06:25 07/31/23 06:25 Labs: Laboratory Results - last 24 hr 07/31/23 06:25: WBC 4.9, RBC 4.30, Hgb 12.1, Hct 36.4 L, MCV 84.7 D, MCH 28.1, MCHC 33.2 D, RDW Std Deviation 37.4, RDW Coeff of Alejo 12.3, Plt Count 274, MPV 9.8, Immature Gran % (Auto) 0.400, Neut % (Auto) 67.4, Lymph % (Auto) 21.0, Meigs% (Auto) 8.6, Eos % (Auto) 2.2, Baso % (Auto) 0.4, Absolute Neuts (auto) 3.3, Absolute Lymphs (auto) 1.03, Nucleated RBC % 0, Sodium 133 L, Potassium 3.2 L, Chloride 102, Carbon Dioxide 25.0, Anion Gap 6, BUN 8, Creatinine 0.60, Estim Creat Clear Calc 41.05, Est GFR (MDRD) Af Amer 123, Est GFR (MDRD) Non-Af 101, BUN/Creatinine Ratio 13.2, Glucose 94, Calcium 8.3 L Micro: Microbiology 07/28/23 12:56 Mucosa - Nose Coronavirus COVID-19 PCR - Final SARS-CoV-2 (COVID 19 PCR) 07/28/23 02:12 Mucosa - Nasopharyngeal Respiratory Panel (PCR) - Final Physical Exam Narrative Alert awake oriented x 3 no obvious distress Assessment & Plan Assessment/Plan (1) Hyponatremia: PLAN: Severe hyponatremia with a sodium of about 120. Sodium has now improved to 133. Pending rehab placement. From a nephrology standpoint can be discharged. DC hydrochlorothiazide at the time of discharge. Add sodium chloride 1 g twice daily. Discharge planning discussed with hospitalist 07/31/23 0511 <Electronically signed by De Snowden MD> Cosigner Signature (if applicable): CC: ~ Signed [facility] Work Phone: 1(527) 793-477511-06-2023 Progress note Author Natalya Wright [facility] July 30, 2023 5:01pm Note Date/Time July 30, 2023 5 :01pm [facility] Medical Records Department [address] [place] [address] Progress Note - Hospitalist 07/30/23 8876 MR#: [id number] Acct: [id number] Name: JERO LEWIS Rep #:[id number] : 1945 77 From: Natalya Wright MD PCP: Dr. Argelia Darby, DO Status:ADM IN Location: [facility] US403-9 Reason for Visit Reason for Visit: Diagnoses Hypo-osmolality and hyponatremia (07/28/23) COVID-19 (07/28/23) Subjective Subjective Patient reports feeling weak and still has her unsteadiness and does not feel safe to go home as she lives alone has multilevel house. Would like to pursue placement Objective Data Objective Data Vital Signs: Vital Signs Temp Pulse Resp BP Pulse Ox O2 Del Method O2 Flow Rate 98.1 F 64 16 131/50 H 100 Room Air 2 07/30/23 15:32 07/30/23 15:54 07/30/23 15:32 07/30/23 15:32 07/30/23 15:32 07/30/23 15:32 07/29/23 22:51 Oxygen Flow Rate (L/min) 2 Oxygen Delivery Method Room Air Weight: 84 kg Body Mass Index (BMI) 30.8 Intake & Output: Intake and Output for Last 24 Hours 07/29/23 07/29/23 07/30/23 00:59 23:59 23:59 Intake Total 400 / 400 Output Total Balance 400 / 400 Lab / Micro Data 07/28/23 01:50 07/30/23 05:25 Labs: Laboratory Results - last 24 hr 07/29/23 08:00: Cortisol 25.40 H 07/30/23 05:25: Sodium 132 L, Potassium 3.2 L, Chloride 101, Carbon Dioxide 23.0, Anion Gap 8, BUN 8, Creatinine 0.60, Estim Creat Clear Calc 41.05, Est GFR(MDRD) Af Amer 125, Est GFR (MDRD) Non-Af 103, BUN/Creatinine Ratio 13.4, Glucose 86, Calcium 8.2 L Micro: Microbiology 07/28/23 12:56 Mucosa - Nose Coronavirus COVID-19 PCR - Final SARS-CoV-2 (COVID 19 PCR) 07/28/23 02:12 Mucosa - Nasopharyngeal Respiratory Panel (PCR) - Final Physical Exam Narrative General: Alert, oriented HEENT: Atraumatic, normocephalic Eyes: Anicteric, normal conjunctiva, extraocular movements grossly intact Neck: Supple Respiratory: Clear to auscultation bilaterally, normal respiratory effort Cardiovascular: Regular rate and rhythm GI: Soft, nontender, nondistended Extremities: No edema Musculoskeletal: Moving all extremities Neuro: No overt focal neurological deficits Skin: No rashes appreciated Psych: Cooperative Assessment & Plan Assessment/Plan (1) Hyponatremia: (2) COVID-19: PLAN: Plan #1. Acute Viral Syndrome, COVID-19 with intractable nausea, emesis, cough: At this time, time of onset of COVID symptoms is doubtful but patient states it is started last weekend therefore probably 7 days ago. COVID-19 PCR ordered. Patient currently 100% on room air heart rate and blood pressure within acceptable limit no fever therefore I do not think patient needs dexamethasone or remdesivir. 07/29/2023: No change, she wears her baseline oxygen at night no shortness of breath no cough we will continue to monitor COVID and if she worsens can start her on Decadron if necessary -07/30: Do not feel patient requires Decadron at this time, continue present management #2. Subacute severe hyponatremia with history of chronic hyponatremia on sodiumtablets: Admission Na 119, baseline appearance as noted 134-136 but she had beenon chronic salt tablets with these levels . Patient on sodium tablets. Serum sodium is gradually coming up 119-120. Anion gap 10 BUN/creatinine normal. TSH and free T4 normal.We will order cortisol level. Urine sodium 98 creatinine 37.7. Associated hypokalemia. Potassium replacement was given repeat serum potassium normal. Editor Newspaper consulted. 07/29/2023: Awaiting lab work today, she will need to follow-up with nephrology as an outpatient and will need to discontinue her hydrochlorothiazide that is onher home med list. -07/30: Continues to improve, has been on sodium tabs, her HCTZ the, Zoloft, Lasix have been held. Discussed with nephrology and patient okay for discharge from medical standpoint. On discharge her salt tabs will go down to 1 g twice daily and her Lasix and thiazide will continue to be held. Patient feels somewhat weak overall and does not feel safe to go home, pursuing placement #3. Hypomagnesia: Magnesium from outside facility 1.4, administered IV magnesium, repeat magnesium level in 2.1. #4. Hypothyroidism: TSH and free T4 are normal in range. Although TSH 0.55 is in low normal range #5. Hypertension: Continue home regimen including amlodipine, olmesartan. HCTZheld because of hyponatremia. #6. Hyperlipidemia: We will continue patient on statin therapy. #7. Anxiety and depression: Patient is on very low-dose sertraline regimen, given significant hyponatremia although suspected hypovolemia will temporally hold as could be contributing. 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 #9. Allergic rhinitis: If needed may add patient azelastine nasal spray. DVT: Lovenox Time spent in the patient's overall evaluation,decision-making process, review of diagnostic data, adjustment of management, discussion with other providers, nursing nursing and ancillary staff involved in patient's care documentation, 37minutes Charges/Coding Visit Charges Inpatient E&M: 99587 Subs Hosp L2 07/30/23 1701 <Electronically signed by Natalya Wright MD> Cosigner Signature (if applicable): CC: ~ Signed [facility] Work Phone: 1(990) 128-567211-05-2023 Progress note Author Trever Viveros [facility] July 29, 2023 8:34am Note Date/Time July 29, 2023 8 :29am [facility] Medical Records Department [address] [place] [address] Progress Note - Hospitalist 07/29/23824 MR#: [id number] Acct: [id number] Name: JERO LEWIS Rep #:[id number] : 1945 77 From: Trever pickering MD PCP: Dr. Argelia Darby, DO Status:ADM IN Location: [facility]-0 Subjective Subjective Normal doing well, no issues overnight. Denies any shortness of breath. Objective Data Objective Data Vital Signs: Vital Signs Temp Pulse Resp BP Pulse Ox O2 Del Method O2 Flow Rate 97.9 F 68 18 138/56 H 99 Nasal Cannula 2 07/29/23 02:15 07/29/23 02:15 07/29/23 02:15 07/29/23 02:15 07/29/23 02:15 07/29/23 07:25 07/29/23 07:25 Oxygen Flow Rate (L/min) 2 Oxygen Delivery Method Nasal Cannula Weight: 184 lb 15.485 oz Body Mass Index (BMI) 30.8 Intake & Output: Intake and Output for Last 24 Hours 07/28/23 07/29/23 07/30/23 04:59 03:59 03:59 Intake Total Output Total Balance Lab / Micro Data 07/28/23 01:50 07/28/23 22:45 Labs: Laboratory Results - last 24 hr 07/28/23 06:35: Urine Osmolality 366 07/28/23 10:25: Sodium 120 L, Potassium 4.0, Chloride 86 L, Carbon Dioxide 22.0,Anion Gap 12, BUN 9, Creatinine 0.74, Estim Creat Clear Calc 41.05, Est GFR (MDRD) Af Amer 97, Est GFR (MDRD) Non-Af 80, BUN/Creatinine Ratio 12.2, Glucose 137 H, Calcium 8.2 L 07/28/23 14:56: Sodium 120 L 07/28/23 19:32: Sodium 120 L 07/28/23 22:45: Sodium 122 L Micro: Microbiology 07/28/23 12:56 Mucosa - Nose Coronavirus COVID-19 PCR - Final SARS-CoV-2 (COVID 19 PCR) 07/28/23 02:12 Mucosa - Nasopharyngeal Respiratory Panel (PCR) - Final Physical Exam Narrative General: Alert, Oriented x3, Cooperative, No apparent distress HEENT: Atraumatic, PERRLA, EOMI, Normocephalic Oral: Moist Mucosa Neck: Supple, No JVD Lungs: Diminished, Normal air movement, No rhonchi, No wheeze, No rales Cardiovascular: Regular rate, Regular Rhythm, Normal S1, Normal S2, No murmurs Abdomen: Soft, Non Tender, Non-Distended, No Hepato-splenomegaly Extremities: No edema, Capillary Refill Less than 3 Seconds Skin: No rashes, No breakdown Musculoskeletal: No Tenderness to Palpation of Joints or Extremities Neurological: Cranial nerves II-XII grossly intact, Motor Exam 5/5 strength throughout, Sensory exam intact to light touch and pain Psych/Mental Status: Flat Assessment & Plan Assessment/Plan (1) Hyponatremia: (2) COVID-19: PLAN: Plan #1. Acute Viral Syndrome, COVID-19 with intractable nausea, emesis, cough: At this time, time of onset of COVID symptoms is doubtful but patient states it is started last weekend therefore probably 7 days ago. COVID-19 PCR ordered. Patient currently 100% on room air heart rate and blood pressure within acceptable limit no fever therefore I do not think patient needs dexamethasone or remdesivir. 07/29/2023: No change, she wears her baseline oxygen at night no shortness of breath no cough we will continue to monitor COVID and if she worsens can start her on Decadron if necessary #2. Subacute severe hyponatremia with history of chronic hyponatremia on sodiumtablets: Admission Na 119, baseline appearance as noted 134-136 but she had beenon chronic salt tablets with these levels . Patient on sodium tablets. Serum sodium is gradually coming up 119-120. Anion gap 10 BUN/creatinine normal. TSH and free T4 normal.We will order cortisol level. Urine sodium 98 creatinine 37.7. Associated hypokalemia. Potassium replacement was given repeat serum potassium normal. Editor Newspaper consulted. 07/29/2023: Awaiting lab work today, she will need to follow-up with nephrology as an outpatient and will need to discontinue her hydrochlorothiazide that is onher home med list. #3. Hypomagnesia: Magnesium from outside facility 1.4, administered IV magnesium, repeat magnesium level in 2.1. #4. Hypothyroidism: TSH and free T4 are normal in range. Although TSH 0.55 is in low normal range #5. Hypertension: Continue home regimen including amlodipine, olmesartan. HCTZheld because of hyponatremia. #6. Hyperlipidemia: We will continue patient on statin therapy. #7. Anxiety and depression: Patient is on very low-dose sertraline regimen, given significant hyponatremia although suspected hypovolemia will temporally hold as could be contributing. 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 #9. Allergic rhinitis: If needed may add patient azelastine nasal spray. DVT: Lovenox Charges/Coding Visit Charges Inpatient E&M: 44007 Subs Hosp L2 07/29/23 0834 <Electronically signed by Trever Viveros MD> Cosigner Signature (if applicable): CC: ~ Signed [facility] Work Phone: 1(658) 270-834411-04-2023 Consult note Author De Snowden [facility] July 28, 2023 1:08pm Note Date/Time July 28, 2023 1 :08pm [facility] Medical Records Department [address] [place] [address] Consultation - Nephrology 07/28/23 1305 MR#: [id number] Acct: [id number] Name: JERO LEWIS Rep #:[id number] : 1945 77 From: De arenas MD PCP: Dr. Argelia Darby, DO Status:ADM JON Location: [facility] BN062-0 Assessment & Plan Assessment/Plan (1) Hyponatremia: PLAN: Severe hyponatremia with a sodium of about 120. Reviewed notes from Dr. Pate, admitting hospitalist, as per clinisync her sodium values were close to normal. She was started on salt tablets sometime this summer by primary care physician. I am not sure if hyponatremia work-up was done. She is also on thiazide which could potentially cause hyponatremia. Acute worsening of hyponatremia seems to be volume depletion in the setting of COVID-pneumonia. Urine sodium is high, urine osmolality more than 100. Interpreting these labs would be difficult given that she was on thiazide prior to admission. Clinically she looks hypovolemic. Continue low-dose IV fluids. Will increase salt tablets dosing. Orders placed HPI Consult Data Date of Consult: 07/28/23 HPI Narrative Reason for Consultation: Hyponatremia HPI Narrative: JERO LEWIS, is a 77 F who presents to the hospital with generalized weakness. Nephrology on consultation due to hyponatremia. She was recently diagnosed with COVID about 10 days ago. Since then she has been having generalized weakness, poor appetite, nausea. Presented to the hospital with above complaints and was found to be having severe hyponatremia. She tells me that she was told that she had low sodium about 3 to 4 months ago. Was prescribed salt tablets by primary care physician. Did not see nephrology at that time. Reviewed her medication list, she is on hydrochlorothiazide. Shethinks that she has been on thiazide for about a year or so. No other psychotropic medications. No significant weight loss or gain recently. No significant edema. [facility] Medical History Allergic rhinitis Anxiety and depression Cromwell disease Chronic hyponatremia COVID-19 History of endometrial biopsy HTN (hypertension) Hyperlipidemia Hypothyroidism Home Medications Valsartan/Hydrochlorothiazide [Diovan Hct 320-25 Mg Tablet] 1 tab PO DAILY 07/26/15 [History Last Taken 07/27/23] furosemide 20 mg tablet 20 mg PO DAILY 07/26/15 [History Last Taken 07/27/23] sertraline 25 mg tablet (Zoloft) 25 mg PO DAILY 07/26/15 [History Last Taken 07/27/23] amlodipine 5 mg tablet 5 mg PO DAILY bp 07/28/23 [History Last Taken 07/27/23] atorvastatin 20 mg tablet 20 mg PO DAILY hld 07/28/23 [History Last Taken 07/25/23] levothyroxine 112 mcg tablet 112 mcg PO DAILY thyroid 07/28/23 [History Last Taken 07/27/23] meclizine 12.5 mg tablet 12.5 mg PO TID PRN dizzy 07/28/23 [History Last Taken 07/27/23] meloxicam 15 mg tablet 15 mg PO DAILY pain 07/28/23 [History Last Taken 07/27/23] olmesartan 40 mg tablet 40 mg PO DAILY see md 07/28/23 [History Last Taken Unknown] sodium chloride 1,000 mg soluble tablet 1,000 mg PO DAILY 07/28/23 [History Last Taken 07/27/23] Allergy/AdvReac Type Severity Reaction Status Date / Time propoxyphene HCl Allergy Nausea Verified 07/28/23 01:03 [From Darvon] codeine AdvReac Intermediate Nausea Verified 07/28/23 01:03 simvastatin AdvReac Intermediate Myalgia Verified 07/28/23 01:03 Family History (Updated 07/27/23 @ 23:[address] Madhavi Pate MD) Mother CVA (cerebral vascular accident) Father Kimberlee disease Son Kimberlee disease Brother Heart disease Hypertension Daughter Lupus Sister Melanoma Surgical History H/O cone biopsy of cervix H/O dilation and curettage History of tonsillectomy Hx of myringotomy Hx of tubal ligation S/P thyroid biopsy Social History (Updated 07/27/23 @ 23:[address] Madhavi Pate MD) household members: spouse Smoking Status: Never smoker alcohol intake: never substance use type: does not use ROS ROS Narrative Negative except above Physical Exam Narrative Alert awake oriented x 3 no obvious distress no pallor no icterus no JVD s1s2 no murmurs lungs clear abdomen soft no organomegaly no edema no cyanosis Lab / Micro Data 07/28/23 01:50 07/28/23 10:25 Labs: Laboratory Results - last 24 hr 07/28/23 01:50: WBC 5.2, RBC 4.84, Hgb 13.8, Hct 38.7, MCV 80.0 L, MCH 28.5, MCHC 35.7, RDW Std Deviation 33.4 L, RDW Coeff of Alejo 11.5 L, Plt Count 277, MPV8.8, Immature Gran % (Auto) 0.400, Neut % (Auto) 86.0 H, Lymph % (Auto) 10.1 L, Meigs % (Auto) 3.1, Eos % (Auto) 0.2, Baso % (Auto) 0.2, Absolute Neuts (auto) 4.4, Absolute Lymphs (auto) 0.52 L, Nucleated RBC % 0, Differential Comment SCANNED, D-Dimer Quant (PE/DVT) 0.68 H*, Sodium 119 L*, Potassium 2.9 L, Chloride 84 L, Carbon Dioxide 25.0, Anion Gap 10, BUN 7, Creatinine 0.73, Estim Creat Clear Calc 41.05, Est GFR (MDRD) Af Amer 99, Est GFR (MDRD) Non-Af 82, BUN/Creatinine Ratio 9.6 L, Glucose 160 H, Calcium 8.7, Ferritin 316 H, Lactate Dehydrogenase 185, Total Creatine Kinase 229 H, Troponin I High Sens 28, C-ReactProt Ext Range < 2.90, B-Natriuretic Peptide 111.9 H, Procalcitonin < 0.01 07/28/23 05:45: Sodium 121 L, Potassium 3.1 L, Chloride 85 L, Carbon Dioxide 25.0, Anion Gap 11, BUN 8, Creatinine 0.84, Estim Creat Clear Calc 48.87, Est GFR (MDRD) Af Amer 84, Est GFR (MDRD) Non-Af 69, BUN/Creatinine Ratio 9.5 L, Glucose 154 H, Calcium 8.3 L, Magnesium 2.1, Total Bilirubin 0.60, Direct Bilirubin 0.19, AST 28, ALT 23, Alkaline Phosphatase 68, Total Protein 7.0, Albumin 3.8, Globulin 3.2, TSH 0.55, Free T4 1.31 07/28/23 06:35: Urine Osmolality 366, Ur Random Sodium 98, Urine Creatinine 37.70 07/28/23 10:25: Sodium 120 L, Potassium 4.0, Chloride 86 L, Carbon Dioxide 22.0,Anion Gap 12, BUN 9, Creatinine 0.74, Estim Creat Clear Calc 41.05, Est GFR (MDRD) Af Amer 97, Est GFR (MDRD) Non-Af 80, BUN/Creatinine Ratio 12.2, Glucose 137 H, Calcium 8.2 L Micro: Microbiology 07/28/23 02:12 Mucosa - Nasopharyngeal Respiratory Panel (PCR) - Final 07/28/23 1308 <Electronically signed by De Snowden MD> Cosigner Signature (if applicable): CC: Dr. Madhavi Pate MD; Dr. De Snowden MD; Dr. Argelia Darby, DO~ Signed [facility] Work Phone: 1(172) 347-800211-04-2023 Progress note Author Brooks Carcamo [facility] July 28, 2023 11:52am Note Date/Time July 28, 2023 7 :32am [facility] Medical Records Department [address] [place] [id number] Progress Note - Hospitalist 07/28/23729 MR#: [id number] Acct: [id number] Name: JERO LEWIS Rep #:[id number] : 1945 77 From: Brooks Cowart PCP: Dr. Argelia Darby, DO Status:ADM JON Location: [place] [id number] Reason for Visit Reason for Visit: Diagnoses Hypo-osmolality and hyponatremia (07/28/23) COVID-19 (07/28/23) Subjective Subjective Follow-up for COVID-19 and hyponatremia Objective Data Objective Data Vital Signs: Vital Signs Temp Pulse Resp BP Pulse Ox O2 Del Method O2 Flow Rate 98 F 74 16 127/56 H 100 Nasal Cannula 2 07/28/23 04:06 07/28/23 04:06 07/28/23 04:06 07/28/23 04:06 07/28/23 04:06 07/28/23 04:06 07/28/23 04:06 Oxygen Flow Rate (L/min) 2 Oxygen Delivery Method Nasal Cannula Weight: 182 lb 15.739 oz Body Mass Index (BMI) 30.4 Intake & Output: Intake and Output for Last 24 Hours 07/26/23 07/27/23 07/28/23 23:59 23:59 23:59 Intake Total 321.67 / 321.67 Output Total 1570 / 1570 Balance -1248.33 / -1248.33 Lab / Micro Data 07/28/23 01:50 07/28/23 10:25 Labs: Laboratory Results - last 24 hr 07/28/23 01:50: WBC 5.2, RBC 4.84, Hgb 13.8, Hct 38.7, MCV 80.0 L, MCH 28.5, MCHC 35.7, RDW Std Deviation 33.4 L, RDW Coeff of Alejo 11.5 L, Plt Count 277, MPV8.8, Immature Gran % (Auto) 0.400, Neut % (Auto) 86.0 H, Lymph % (Auto) 10.1 L, Meigs % (Auto) 3.1, Eos % (Auto) 0.2, Baso % (Auto) 0.2, Absolute Neuts (auto) 4.4, Absolute Lymphs (auto) 0.52 L, Nucleated RBC % 0, Differential Comment SCANNED, D-Dimer Quant (PE/DVT) 0.68 H*, Sodium 119 L*, Potassium 2.9 L, Chloride 84 L, Carbon Dioxide 25.0, Anion Gap 10, BUN 7, Creatinine 0.73, Estim Creat Clear Calc 41.05, Est GFR (MDRD) Af Amer99, Est GFR (MDRD) Non-Af 82, BUN/Creatinine Ratio 9.6 L, Glucose 160 H, Calcium8.7, Ferritin 316 H, Lactate Dehydrogenase 185, Total Creatine Kinase 229 H, Troponin I High Sens 28, C-React Prot Ext Range < 2.90, B-Natriuretic Peptide 111.9 H, Procalcitonin < 0.01 07/28/23 05:45: Sodium 121 L, Potassium 3.1 L, Chloride 85 L, Carbon Dioxide 25.0, Anion Gap 11, BUN 8, Creatinine 0.84, Estim Creat Clear Calc 48.87, Est GFR (MDRD) Af Amer 84, Est GFR (MDRD) Non-Af 69, BUN/Creatinine Ratio 9.5 L, Glucose 154 H, Calcium 8.3 L, Magnesium 2.1, Total Bilirubin 0.60, Direct Bilirubin 0.19, AST 28, ALT 23, Alkaline Phosphatase 68, Total Protein 7.0, Albumin 3.8, Globulin 3.2, TSH 0.55, Free T4 1.31 07/28/23 06:35: Ur Random Sodium 98, Urine Creatinine 37.70 Micro: Microbiology 07/28/23 02:12 Mucosa - Nasopharyngeal Respiratory Panel (PCR) - Final Physical Exam Narrative Seen and examined. Patient stated she had symptoms of runny nose, sore throat that started last Sunday about a week ago and then nasal swab probably COVID-19 antigen tested positive on 07/24 for COVID. She had regular and booster vaccine for COVID-19. Currently patient denies sore throat or runny nose but has mild cough. Respiratory panel negative. No shortness of breath. Patient also on sodium tablet at home. She had hyponatremia in summer this year and was started on sodium tablets by PCP. 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 Physical exam General: Alert, Oriented x3, Cooperative HEENT: Atraumatic, PERRLA, EOMI, Normocephalic Oral: Oral mucosa dry. No Gingival or Mucosal Lesions/ Ulcerations Neck: Supple, No JVD, Negative Carotid Bruits Lungs: Air entry diminished in bilateral lung bases. No crepitation/rhonchi Cardiovascular: Regular rate, Regular Rhythm, Normal S1, Normal S2, No murmurs Abdomen: Bowel Sounds Present, Soft, Non Tender, Non-Distended : No renal angle tenderness. No suprapubic tenderness. Extremities: No edema, Capillary Refill Less than 3 Seconds Skin: No rashes, No breakdown Musculoskeletal: No Tenderness to Palpation of Joints or Extremities. ROM full. Degenerative arthritis of knees. Neurological: Cranial nerves II-XII grossly intact, DTR 2+/4. No acute focal neurological deficit. Psych/Mental Status: Flat affect. Assessment & Plan Assessment/Plan (1) Hyponatremia: (2) COVID-19: PLAN: Plan The patient is a 77 y female who was directly admitted on [facility] floor from [facility] on 07/28/23 admitted with persistent cough nonproductive for atleast a week with fatigue and malaise however the last 48 hours patient has had nausea, emesis, dizziness, lightheadedness especially with activity prompting eventual ED evaluation to be cautious. #1. Acute Viral Syndrome, COVID-19 with intractable nausea, emesis, cough: At this time, time of onset of COVID symptoms is doubtful but patient states it is started last weekend therefore probably 7 days ago. COVID-19 PCR ordered. Patient currently 100% on room air heart rate and blood pressure within acceptable limit no fever therefore I do not think patient needs dexamethasone or remdesivir. #2. Subacute severe hyponatremia with history of chronic hyponatremia on sodiumtablets: Admission Na 119, baseline appearance as noted 134-136 but she had beenon chronic salt tablets with these levels . Patient on sodium tablets. Serum sodium is gradually coming up 119-120. Anion gap 10 BUN/creatinine normal. TSH and free T4 normal.We will order cortisol level. Urine sodium 98 creatinine 37.7. Associated hypokalemia. Potassium replacement was given repeat serum potassium normal. Editor Newspaper consulted. #3. Hypomagnesia: Magnesium from outside facility 1.4, administered IV magnesium, repeat magnesium level in 2.1. #4. Hypothyroidism: TSH and free T4 are normal in range. Although TSH 0.55 is in low normal range #5. Hypertension: Continue home regimen including amlodipine, olmesartan. HCTZheld because of hyponatremia. #6. Hyperlipidemia: We will continue patient on statin therapy. #7. Anxiety and depression: Patient is on very low-dose sertraline regimen, given significant hyponatremia although suspected hypovolemia will temporally hold as could be contributing. 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 #9. Allergic rhinitis: If needed may add patient azelastine nasal spray. #10. DVT prophylaxis: Lovenox. #11. CODE status: Patient NEAL is her son Maxim and living will is currently in place. Discussed CODE status at length including difference between FULL code, DNR-CCA and DNR-CC status. Following discussions about the differences in these status, requested DNR-CCA, no intubation status. Charges/Coding Visit Charges Inpatient E&M: 32806 Subs Hosp L2 07/28/23 1152 <Electronically signed by Brooks Carcamo MD> Cosigner Signature (if applicable): CC: ~ Signed [facility] Work Phone: 1(313) 398-728611-04-2023 History and physical note Author Madhavi Pate [facility] July 28, 2023 1:30am Note Date/Time July 28, 2023 1 2:22am [facility] Medical Records Department [address] [place] [address] H&P Exam - Hospitalist 07/28/23 0038 MR#: [id number] Acct: [id number] Name: JERO LEWIS Rep #:[id number] : 1945 77 From: Madhavi Pate MD PCP: Dr. Argelia Darby, DO Status:ADM JON Location: [place] [address] HPI - General General Date of Admission: 07/28/23 Date of Service: 07/28/23 Chief Complaint: Cough, N/V, + COVID diagnosis HPI Narrative The patient is a 77 y/o F w/ PMHx: Chronic hyponatremia (prior rx ordered for sodium tablets but no obvious labs consistent with hyponatremia upon review of outside records thus unclear), Hypothyroidism, HLD, HTN, Anxiety and Depression who presents to the [facility] as a direct admission from [facility] on 07/28/23 w/ history of COVID symptom onset approximately 11 days prior with persistent cough nonproductive for at least a week with fatigue and malaise however the last 48 hours patient has had nausea, emesis, dizziness, lightheadedness especially with activity prompting eventual ED evaluation to be cautious. She notes she also had some mild loose stools, sore throat, muscle aches and chills but no fevers nor any headaches nor any significant alteration to taste or smellbut did have a dry congestion. Patient presented to the outside facility [facility] ED on 07/27/2023 and work-up at outside ED included VS upon presentation initially notable for BP 194/68 but most recently included HR 68, RR 18, BP 133/71, 99% on RA, CBC with WBC 3.8, hemoglobin 13.3, MCV 80.7, platelet 282 without marked shift, high-sensitivity troponin 10.8, D-dimer 287, lipase 33, magnesium 1.4, CMP with sodium 119, potassium 3.5, chloride 82, BUN/creatinine 7/1.0, glucose 133, hepatic profile unremarkable, chest x-ray with slight cardiomegaly with no acute cardiopulmonary findings otherwise. Fromreview of clinisysc records patient had a COVID-19 positive result 07/24/2023. From review of clinisync records patient also with CMP with sodium on 07/16/2023NA 134 and prior to this 03/21/2023 NA 136. In the ED patient administered 750 mLNS in the ED with repeat Na 119, additionally administered 40 mEq KCl, Magnesium2 gm IV x 1, zofran 4 mg IV x 1, morphine 2 mg IV x 1 for BL LE leg cramps, tylenol 650 mg po x 1. Home medications per [facility] most recent records (unverified): Amlodipine 5 mg 1 p.o. daily Atorvastatin 20 mg p.o. daily Azelastine nasal spray 1 spray nightly as needed Biotin 1 tablet p.o. daily Caltrate 600 plus D oral tablet 1 tab p.o. twice daily Cyanocobalamin 1000 mcg per mill injection solution with 1 mL subcutaneous injection monthly Colace stool softener 100 mg oral capsule 1 p.o. twice daily as needed constipation Hydrochlorothiazide 25 mg p.o. daily Levothyroxine 112 mcg daily Meloxicam 15 mg oral tablet p.o. daily Olmesartan 40 mg p.o. daily Sertraline 50 mg tab 1 p.o. daily Sodium chloride 1000 mg oral tablets take 1 tablet p.o. daily except 2 tablets on Sunday, Sunday, Sunday [facility] Medical History Allergic rhinitis Anxiety and depression Cromwell disease Chronic hyponatremia COVID-19 History of endometrial biopsy HTN (hypertension) Hyperlipidemia Hypothyroidism Home Medications Valsartan/Hydrochlorothiazide [Diovan Hct 320-25 Mg Tablet] 1 tab PO DAILY 07/26/15 [History Last Taken 07/27/23] furosemide 20 mg tablet 20 mg PO DAILY 07/26/15 [History Last Taken 07/27/23] levothyroxine 88 mcg tablet 88 mcg PO DAILY 07/26/15 [History Last Taken 07/27/23] sertraline 25 mg tablet (Zoloft) 25 mg PO DAILY 07/26/15 [History Last Taken 07/27/23] amlodipine 5 mg tablet 5 mg PO DAILY bp 07/28/23 [History Last Taken 07/27/23] atorvastatin 20 mg tablet 20 mg PO DAILY hld 07/28/23 [History Last Taken 07/25/23] meclizine 12.5 mg tablet 12.5 mg PO TID PRN dizzy 07/28/23 [History Last Taken 07/27/23] meloxicam 15 mg tablet 15 mg PO DAILY pain 07/28/23 [History Last Taken 07/27/23] olmesartan 40 mg tablet 40 mg PO DAILY see md 07/28/23 [History Last Taken Unknown] sodium chloride 1,000 mg soluble tablet 1,000 mg PO DAILY 07/28/23 [History Last Taken 07/27/23] Allergy/AdvReac Type Severity Reaction Status Date / Time propoxyphene HCl Allergy Nausea Verified 07/28/23 01:03 [From Darvon] codeine AdvReac Intermediate Nausea Verified 07/28/23 01:03 simvastatin AdvReac Intermediate Myalgia Verified 07/28/23 01:03 Family History (Updated 07/27/23 @ 23:[address] Madhavi Pate MD) Mother CVA (cerebral vascular accident) Father Cromwell disease Son Kimberlee disease Brother Heart disease Hypertension Daughter Lupus Sister Melanoma Surgical History H/O cone biopsy of cervix H/O dilation and curettage History of tonsillectomy Hx of myringotomy Hx of tubal ligation S/P thyroid biopsy Social History (Updated 07/27/23 @ 23:[address] Madhavi Pate MD) household members: spouse Smoking Status: Never smoker alcohol intake: never substance use type: does not use ROS ROS Narrative Admission Review of Systems: CONSTITUTIONAL: No weight loss, fever, + chills, weakness or fatigue. HEENT: + Congestion, sore throat. Eyes: No visual loss, blurred vision, double vision or yellow sclerae. Ears, Nose, Throat: No hearing loss, sneezing. SKIN: No rash or itching, lesions, wounds. CARDIOVASCULAR: No chest pain, chest pressure or chest discomfort, palpitations,edema, orthopnea, syncopal events. RESPIRATORY: + cough, No marked sputum, dyspnea, wheezing, hemoptysis. GASTROINTESTINAL: + anorexia, nausea, vomiting, diarrhea, No abdominal pain, melena, BRBPR. GENITOURINARY: No dysuria, frequency, urgency or retention. NEUROLOGICAL: + No dizziness/lightheadedness. No headache, syncope, paralysis, ataxia, numbness or tingling in the extremities, focal weakness, change in bowelor bladder control, seizure. MUSCULOSKELETAL: + muscle, back pain, joint pain or stiffness. HEMATOLOGIC: No anemia, bleeding or bruising. LYMPHATICS: No enlarged nodes. No history of splenectomy. PSYCHIATRIC: + history of depression or anxiety. ENDOCRINOLOGIC: No reports of sweating, cold or heat intolerance. No polyuria orpolydipsia. ALLERGIES: + rhinitis. Physical Exam Narrative Physical Examination: General: Awake, alert, oriented x 3 and cooperative, seated upright in the MS bed, fatigued and ill-appearing, holding emesis bag. Skin: Normal color, normal turgor, no icterus, no cyanosis. HEENT: AT/NC, EOMI, PERRLA, dry MM, no carotid bruits or JVD noted. Lungs: Diffusely diminished, greater bases, increased respiratory rate, no rales, ronchi or wheezing. Heart: Regular rate with regular rhythm; no gallop, rub audible. Abdomen: Soft, obese, no obvious TTP, ND, distant hyperactive bowel sounds, no appreciated HSM. Extremities: No cyanosis, clubbing, or edema. Neurological: Patient awake, alert, oriented as noted, cognitive function intact; pupils equally reactive to light and accommodation, cranial nerves II-XII grossly normal, moving all 4 extremities, no focal deficits, strength moderately to severely global decrease secondary to acute presentation. Psychiatric: Affect appears fatigued, ill-appearing, no acute evidence of depressive or anxiety feelings but does have underlying history. Assessment & Plan Assessment/Plan (1) Hyponatremia: (2) COVID-19: PLAN: Plan The patient is a 77 y/o F w/ PMHx: Chronic hyponatremia (on chronic salt tabletsper patient for the last 6 months at least), Hypothyroidism, HLD, HTN, Anxiety and Depression who presents to the [facility] as a direct admission from [facility] on 07/28/23 w/ history of COVID diagnosis approximately 10 days prior with persistent cough nonproductive for at least a week with fatigue and malaisehowever the last 48 hours patient has had nausea, emesis, dizziness, lightheadedness especially with activity prompting eventual ED evaluation to be cautious. #1. Acute Viral Syndrome, COVID-19 with intractable nausea, emesis, cough: Willadmit to the MS telemetry, given timeline >10 days passed does not need to be onprecautions however given ongoing symptoms will also obtain full respiratory panel to assure no additional viral illness contributing, currently appropriate on room air, PRN albuterol, HOB, IS parameters, will obtain D-dimer, procalcitonin, CRP, CPK, Ferritin, LDH, trop and BNP to be cautious, continue supportive care, judicious hydration, allow clears only, maintain on IV PPI until assure oral intake tolerated, closely monitor for worsening, given appropriate oxygentation no needed for steroids at this time and also given timeline not appropriate candidate for antivirals. #2. Acute Hyponatremia on Chronic, suspected hypovolemic component in addition to the fact patient with intractable N/V has not been taking her chronic salt tables: Admission Na 119, baseline appearance as noted 134-136 but she had been on chronic salt tablets with these levels, will add back her tablets once nausea/emesis improving, in interim will place on judicious IVFs, continue to closely monitor, although suspect etiology as noted will obtain FeNa, UOsm, if not improving low threshold to involve nephrology. #3. Hypomagnesia: Magnesium from outside facility 1.4, administered IV magnesium, repeat magnesium level in AM. #4. Hypothyroidism: We will continue patient on levothyroxine regimen, TSH and free T4 requested given hyponatremia presentation although suspected primarily hypovolemic etiology. #5. Hypertension: Continue home regimen including amlodipine, olmesartan, givenhyponatremia we will hold hydrochlorothiazide with hydration as noted given suspected hypovolemic etiology, may add back once sodium is appropriate, PRN hydralazine. Patient also notes she is on diovan in addition. Given she is already on an ARB, this should be discontinued to avoid duplication. #6. Hyperlipidemia: We will continue patient on statin therapy. #7. Anxiety and depression: Patient is on very low-dose sertraline regimen, given significant hyponatremia although suspected hypovolemia will temporally hold as could be contributing. 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 #9. Allergic rhinitis: If needed may add patient azelastine nasal spray. #10. DVT prophylaxis: Lovenox. #11. CODE status: Patient NEAL is her son Maxim and living will is currently in place. Discussed CODE status at length including difference between FULL code, DNR-CCA and DNR-CC status. Following discussions about the differences in these status, requested DNR-CCA, no intubation status. Advanced Care Planning Face to Face Time: 16 minutes. Charges/Coding Visit Charges Inpatient E&M: 02025 Init Hosp L3 Procedures Hospitalists Procedures: 07147 Advncd Care Plan 30 Min 07/28/23 0130 <Electronically signed by Madhavi Pate MD> Cosigner Signature (if applicable): CC: Dr. Madhavi Pate MD; Dr. Argelia Darby DO~ Signed [facility] Work Phone: 1(536) 731-817711-03-2023 Note ORIGINAL EXAMINATION: TWO XRAY VIEWS OF [...] Date: 07/27/2023 8:42:35 PM Ordering [facility] Note Sinus rhythm Borderline left axis deviation Anteroseptal infarct, old Nonspecific repol abnormality, diffuse leads Compared to ECG at 06/20/2021 17:38:08 Electronic Signature: RASHEL SPANGLER DO 07/27/2023 20:35:36[facility] 10-31-2023 SARS-CoV-2 (COVID-19) RNA YOLANDA+probe Ql (Nph) Positive *ABN* (07/24/23 2:06 PM)AO Auto Urine [id number] Note ORIGINAL EXAMINATION: BONE DENSITOMETRY 08/23/2022 11:52 [...] Date: 08/23/2022 1:33:00 PM Ordering Provider: ARGELIA DARBY [facility]11-30-2022 Note ORIGINAL EXAMINATION: BONE DENSITOMETRY 08/23/2022 11:52 [...] Date: 08/23/2022 1:33:00 PM Ordering Provider: ARGELIA Randle [facility] note Author Joni Funk [facility] July 31, 2023 2:11pm Note Date/Time July 31, 2023 2 :11pm [facility] Medical Records Department [address] [place] [address] Counseling Note - Pharmacy 07/31/23 1410 MR#: [id number] Acct: [id number] Name: JERO LEWIS Rep #:[id number] : 1945 77 From: Joni Funk PCP: Dr. Argelia Darby DO Status:ADM IN Location: [place] [address] Pharmacy [place] Med Reconciliation Pharmacy Service has performed discharge medication reconciliation for this patient. The patient's discharge medication list was reviewed for discrepancies and discrepancies were resolved. Medications at Discharge Home Medications furosemide 20 mg tablet 20 mg PO DAILY 07/26/15 sertraline 25 mg tablet (Zoloft) 25 mg PO DAILY 07/26/15 amlodipine 5 mg tablet 5 mg PO DAILY bp 07/28/23 atorvastatin 20 mg tablet 20 mg PO DAILY hld 07/28/23 levothyroxine 112 mcg tablet 112 mcg PO DAILY thyroid 07/28/23 meclizine 12.5 mg tablet 12.5 mg PO TID PRN dizzy 07/28/23 olmesartan 40 mg tablet 40 mg PO DAILY see 07/28/23 sodium chloride 1,000 mg soluble tablet 1,000 mg PO BID #60 tabs 07/31/23 07/31/23 1411 <Electronically signed by Joni warren> Date _ Joni Funk Cosigner Signature (if applicable): Date CC: ~ Signed [facility] Work Phone: Discharge summary Author Natalya Wright [facility] July 31, 2023 2:04pm Note Date/Time July 31, 2023 2 :01pm [facility] Medical Records Department [address] [place], [place] [address] [address] Transfer to [facility] MR#: [id number] Acct: [id number] Name: JERO LEWIS Rep #:[id number] : 1945 77 From: Natalya Wright MD PCP: Dr. Argelia Darby, DO Status:ADM IN Certification of patient admission REQUIRED AT TIME OF ADMISSION. I CERTIFY THAT POST-HOSPITAL [facility] SERVICES ARE REQUIRED TO BE GIVEN ON AN IN-PATIENT BASIS BECAUSE OF THE ABOVE NAMED PATIENT'S NEED FOR SKILLED NURSING CARE ON A CONTINUING BASIS FOR THE CONDITION(S) FOR WHICH HE/SHE WAS RECEIVING IN-PATIENT HOSPITAL SERVICES PRIOR TO HIS/HER TRANSFER TO THE [facility]. 07/31/23 1404<Electronically signed by Natalya Wright MD> Diet Diet Order/Speech Therapy: 07/29/23 07:38 Diet: Regular - General Type of Dietary Supplement:: Ensure Clear Is pt able to select menu?: Yes Diet Comments: 120 ml apple ensure clear tid w/ meals; 2 salt packets per meal Routine Orders/Code Status Suppository Type: Dulcolax 10mg Suppository Frequency: Daily PRN Routine Lab Work: BMP (2-3 days) Code Status: Full Code Therapies Physical Therapy: Eval and Treat Occupational Therapy: Eval and Treat Problem/Diagnosis (1) Hyponatremia: Status: Acute Code(s): E87.1 - Hypo-osmolality and hyponatremia Plan #1. Acute Viral Syndrome, COVID-19 with intractable nausea, emesis, cough #2. Subacute severe hyponatremia with history of chronic hyponatremia on sodiumtablets #3. Hypomagnesia #4. Hypothyroidism #5. Hypertension #6. Hyperlipidemia #7. 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 Allergic rhinitis 77 y/o F w/ PMHx: Chronic hyponatremia (prior rx ordered for sodium tablets but no obvious labs consistent with hyponatremia upon review of outside records thusunclear), Hypothyroidism, HLD, HTN, Anxiety and Depression who presents to the [facility] as a direct admission from [facility] on 07/28/23 for a sodium of 119. She recently was diagnosed with COVID with symptom onset 11 days prior with nonproductive cough and worsening fatigue and malaise and over the past 48 hourshad nausea, vomiting, dizziness and lightheadedness especially with activity prompting the ED presentation. Her hydrochlorothiazide and Zoloft were discontinued as well as her furosemide as there is concern she was also dehydrated and nephrology consulted. Her salt tabs were increased, labs progressively improved and patient did well from a sodium standpoint. Discussedwith nephrology and advised that patient hold Lasix and hydrochlorothiazide on discharge and go home with 1 twice daily of salt tabs. On day patient was goingto be discharged initially she reported that she feels too weak to go home aloneand feels unsafe to do so and requested placement. Placement pursued and patient discharged to facility in stable condition. Discharge instructions as follows: -It will be important that you stop your valsartan/hydrochlorothiazide, continueyour olmesartan and the hydrochlorothiazide component will be discontinued altogether as this is likely the cause or large contributor to your low sodium -Your salt tablets were increased to 1 g twice daily by the cloth winding supervisor and zoloft has been discontinued to help with your sodium -Your lasix have been held. Weigh yourself every day. A sudden weight gain can mean you are retaining fluid. Weigh yourself at the same time of day and in the same kind of clothes. Ideally, weigh yourself first thing in the morning after you empty your bladder, but before you eat breakfast. -Please call your physician if your weight goes up by more than 2 pounds in 1 day or 5 pounds in 1 week. This can be a sign that you are retaining more fluid than you should be. -Would recommend lab work (BMP) to check your sodium in 2 to [facility] Please call their office upon discharge to obtain order for lab work. -Please follow-up with nephrology upon discharge. Please call their office to schedule hospital follow-up appointment upon discharge. -Please call your primary care provider's office upon discharge to schedule a hospital follow up within 1 week. -For any concerning signs or symptoms please call 911 or proceed to the nearest emergency department Allergies/Procedures Done in Hospital Allergies propoxyphene HCl [From Darvon] Allergy (Verified 07/28/23 01:03) Nausea codeine Adverse Reaction (Intermediate, Verified 07/28/23 01:03) Nausea simvastatin Adverse Reaction (Intermediate, Verified 07/28/23 01:03) Myalgia Type of Care/Length of Stay Estimated LOS: Convalescent Care Less Than 30 days Type of Care Needed: Skilled Rehab Potential: Fair Prognosis: Fair Additional Orders/Day of Discharge Day of Discharge: 07/31/23 Dietary and Speech Recommendations Dietitian Recommendations/Changes: Continue Regular diet - will provide 2 salt packets per tray per pt request Will add 120 ml ensure clear tid w/ meals for increased po intake if consumed d/t decreased appetite. Discharge Plan Admission Admit Date/Time: 07/28/23 14:34 Primary Reason for Your Visit: Low sodium Attending Provider: Natalya Wright Primary Care Provider: Argelia Darby Consulting Providers: Madhavi Pate; De Snowden; Brooks Carcamo; Natalya Wright; Trever Viveros Instructions Patient Instructions: Hyponatremia Dc Additional Instructions / Restrictions: DISCHARGE INSTRUCTIONS PLEASE READ *Please take this with you to your next doctors appointment* -You will be important that you stop your valsartan/hydrochlorothiazide, continue your olmesartan and the hydrochlorothiazide component will be discontinued altogether as this is likely the cause or large contributor to yourlow sodium -Your salt tablets were increased to 1 g twice daily by the cloth winding supervisor and zoloft has been discontinued to help with your sodium -Your lasix have been held. Weigh yourself every day. A sudden weight gain can mean you are retaining fluid. Weigh yourself at the same time of day and in the same kind of clothes. Ideally, weigh yourself first thing in the morning after you empty your bladder, but before you eat breakfast. -Please call your physician if your weight goes up by more than 2 pounds in 1 day or 5 pounds in 1 week. This can be a sign that you are retaining more fluid than you should be. -Would recommend lab work (BMP) to check your sodium in 2 to 3 days [facility]. Please call their office upon discharge to obtain order for lab work. -Please follow-up with nephrology upon discharge. Please call their office to schedule hospital follow-up appointment upon discharge. -Please call your primary care provider's office upon discharge to schedule a hospital follow up within 1 week. -For any concerning signs or symptoms please call 911 or proceed to the nearest emergency department Discharge Orders/Prescriptions Prescriptions: Continued amlodipine 5 mg tablet 5 mg PO DAILY Patient Comments: take 1 tablet by mouth once daily atorvastatin 20 mg tablet 20 mg PO DAILY Patient Comments: take 1 tablet by mouth once daily meclizine 12.5 mg tablet 12.5 mg PO TID PRN Patient Comments: take 1 tablet by mouth three times a day if needed for dizziness olmesartan 40 mg tablet 40 mg PO DAILY Patient Comments: take 1 tablet by mouth once daily levothyroxine 112 mcg tablet 112 mcg PO DAILY Patient Comments: take 1 tablet by mouth once daily EXCEPT FOR FRIDAYS Changed sodium chloride 1,000 mg tablet,soluble 1,000 mg PO BID Qty: 60 0RF Patient Comments: take 1 tablet by mouth daily EXCEPT TAKE 2 TABS ON SUNDAY, WEDNESDAYS AND FRIDAYS Held sertraline [Zoloft] 25 MG tablet 25 mg PO DAILY Hold Instructions: Resume on 08/08/23. furosemide 20 MG tablet 20 mg PO DAILY Hold Instructions: Resume on 08/08/23. Weigh self as included in instructions Discontinued Valsartan/Hydrochlorothiazide [Diovan Hct 320-25 Mg Tablet] 1 TABLET tablet 1 tab PO DAILY meloxicam 15 mg tablet 15 mg PO DAILY Patient Comments: take 1 tablet by mouth once daily with food Referrals / Follow Up: De Snowden MD [Med Staff - Consulting] - Argelia Darby DO [Primary Care Provider] - Within 1 Week Disposition Disposition (needs filled in before D/C Order can be placed): [facility] 07/31/23 1404 <Electronically signed by Natalya Wright MD> Cosigner Signature (if applicable): CC: Dr. Madhavi Pate MD; Dr. De Snowden MD; Dr. Argelia Darby DO; Dr. Trever Viveros MD; Dr. Natalya Wright MD; Dr. Brooks Carcamo MD ~ [facility] Work Phone: Discharge summary Author Natalya Wright [facility] July 31, 2023 2:05pm Note Date/Time July 31, 2023 2 :05pm [facility] Medical Records Department [facility] [place] [address] Discharge Summary 07/31/231403 MR#: [id number] Acct: [id number] Name: JERO LEWIS Rep #:[id number] : 1945 77 From: Natalya Wright MD PCP: Dr. Argelia Darby DO Status:ADM IN Location: [address] Providers Date of Admission: 07/28/23 Date of Discharge: 07/31/23 Primary Care Physician: Dr. Argelia Darby DO Consultations 07/28/23 07:32 Consult: Nephrology Routine Consulting Provider: De Snowden Reason for Consult: Hyponatremia, Na 119 improving slowly 121 on NS EMERGENT Consult: No MD Notified: Yes Date Notified: 07/28/23 Time Notified: 07:33 Method of Notification: Text Reason For Visit: HYPONATREMIA, COVID Diagnosis Discharge Diagnosis (1) Hyponatremia: Status: Acute Code(s): E87.1 - Hypo-osmolality and hyponatremia Plan #1. Acute Viral Syndrome, COVID-19 with intractable nausea, emesis, cough #2. Subacute severe hyponatremia with history of chronic hyponatremia on sodiumtablets #3. Hypomagnesia #4. Hypothyroidism #5. Hypertension #6. Hyperlipidemia #7. 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 Allergic rhinitis Medications at Discharge Home Medications furosemide 20 mg tablet 20 mg PO DAILY 07/26/15 sertraline 25 mg tablet (Zoloft) 25 mg PO DAILY 07/26/15 amlodipine 5 mg tablet 5 mg PO DAILY bp 07/28/23 atorvastatin 20 mg tablet 20 mg PO DAILY hld 07/28/23 levothyroxine 112 mcg tablet 112 mcg PO DAILY thyroid 07/28/23 meclizine 12.5 mg tablet 12.5 mg PO TID PRN dizzy 07/28/23 olmesartan 40 mg tablet 40 mg PO DAILY see 07/28/23 sodium chloride 1,000 mg soluble tablet 1,000 mg PO BID #60 tabs 07/31/23 Hospital Course Summary of Care Provided Minutes Spent on Discharge: 35 Hospital Course: 77 y/o F w/ PMHx: Chronic hyponatremia (prior rx ordered for sodium tablets but no obvious labs consistent with hyponatremia upon review of outside records thusunclear), Hypothyroidism, HLD, HTN, Anxiety and Depression who presents to the [facility] as a direct admission from [facility] on 07/28/23 for a sodium of 119. She recently was diagnosed with COVID with symptom onset 11 days prior with nonproductive cough and worsening fatigue and malaise and over the past 48 hourshad nausea, vomiting, dizziness and lightheadedness especially with activity prompting the ED presentation. Her hydrochlorothiazide and Zoloft were discontinued as well as her furosemide as there is concern she was also dehydrated and nephrology consulted. Her salt tabs were increased, labs progressively improved and patient did well from a sodium standpoint. Discussedwith nephrology and advised that patient hold Lasix and hydrochlorothiazide on discharge and go home with 1 twice daily of salt tabs. On day patient was goingto be discharged initially she reported that she feels too weak to go home aloneand feels unsafe to do so and requested placement. Placement pursued and patient discharged to facility in stable condition. Discharge instructions as follows: -It will be important that you stop your valsartan/hydrochlorothiazide, continueyour olmesartan and the hydrochlorothiazide component will be discontinued altogether as this is likely the cause or large contributor to your low sodium -Your salt tablets were increased to 1 g twice daily by the cloth winding supervisor and zoloft has been discontinued to help with your sodium -Your lasix have been held. Weigh yourself every day. A sudden weight gain can mean you are retaining fluid. Weigh yourself at the same time of day and in the same kind of clothes. Ideally, weigh yourself first thing in the morning after you empty your bladder, but before you eat breakfast. -Please call your physician if your weight goes up by more than 2 pounds in 1 day or 5 pounds in 1 week. This can be a sign that you are retaining more fluid than you should be. -Would recommend lab work (BMP) to check your sodium in 2 to 3 days [facility]. Please call their office upon discharge to obtain order for lab work. -Please follow-up with nephrology upon discharge. Please call their office to schedule hospital follow-up appointment upon discharge. -Please call your primary care provider's office upon discharge to schedule a hospital follow up within 1 week. -For any concerning signs or symptoms please call 911 or proceed to the nearest emergency department Physical Exam Narrative General: Alert, oriented, no apparent distress HEENT: Atraumatic, normocephalic Eyes: extraocular movements grossly intact Neck: Supple Respiratory: normal respiratory effort Cardiovascular: no edema appreciated GI: nondistended Extremities: Moving all extremities Neuro: No overt focal neurological deficits Psych: Cooperative Weight / BMI Weight Weight: 83.6 kg Body Mass Index (BMI) 30.7 ABG / Lab / Microbiology Data 07/31/23 06:25 07/31/23 06:25 Laboratory: Laboratory Results - last 24 hr 07/31/23 06:25: WBC 4.9, RBC 4.30, Hgb 12.1, Hct 36.4 L, MCV 84.7 D, MCH 28.1, MCHC 33.2 D, RDW Std Deviation 37.4, RDW Coeff of Alejo 12.3, Plt Count 274, MPV 9.8, Immature Gran % (Auto) 0.400, Neut % (Auto) 67.4, Lymph % (Auto) 21.0, Meigs% (Auto) 8.6, Eos % (Auto) 2.2, Baso % (Auto) 0.4, Absolute Neuts (auto) 3.3, Absolute Lymphs (auto) 1.03, Nucleated RBC % 0, Sodium 133 L, Potassium 3.2 L, Chloride 102, Carbon Dioxide 25.0, Anion Gap 6, BUN 8, Creatinine 0.60, Estim Creat Clear Calc 41.05, Est GFR (MDRD) Af Amer 123, Est GFR (MDRD) Non-Af 101, BUN/Creatinine Ratio 13.2, Glucose 94, Calcium 8.3 L Microbiology: Microbiology 07/28/23 12:56 Mucosa - Nose Coronavirus COVID-19 PCR - Final SARS-CoV-2 (COVID 19 PCR) 07/28/23 02:12 Mucosa - Nasopharyngeal Respiratory Panel (PCR) - Final Meaningful Use Info Meaningful Use Diagnoses (Choose all that apply): None applicable Discharge Plan Admission Admit Date/Time: 07/28/23 14:34 Primary Reason for Your Visit: Low sodium Attending Provider: Natalya Wright Primary Care Provider: Argelia Darby Consulting Providers: Madhavi Pate; De Snowden; Brooks Carcamo; Natalya Wright; Trever Viveros Instructions Patient Instructions: Hyponatremia Dc Additional Instructions / Restrictions: DISCHARGE INSTRUCTIONS PLEASE READ *Please take this with you to your next doctors appointment* -You will be important that you stop your valsartan/hydrochlorothiazide, continue your olmesartan and the hydrochlorothiazide component will be discontinued altogether as this is likely the cause or large contributor to yourlow sodium -Your salt tablets were increased to 1 g twice daily by the cloth winding supervisor and zoloft has been discontinued to help with your sodium -Your lasix have been held. Weigh yourself every day. A sudden weight gain can mean you are retaining fluid. Weigh yourself at the same time of day and in the same kind of clothes. Ideally, weigh yourself first thing in the morning after you empty your bladder, but before you eat breakfast. -Please call your physician if your weight goes up by more than 2 pounds in 1 day or 5 pounds in 1 week. This can be a sign that you are retaining more fluid than you should be. -Would recommend lab work (BMP) to check your sodium [facility] 2 [facility] Please call their office upon discharge to obtain order for lab work. -Please follow-up with nephrology upon discharge. Please call their office to schedule hospital follow-up appointment upon discharge. -Please call your primary care provider's office upon discharge to schedule a hospital follow up within 1 week. -For any concerning signs or symptoms please call 911 or proceed to the nearest emergency department Discharge Orders/Prescriptions Prescriptions: Continued amlodipine 5 mg tablet 5 mg PO DAILY Patient Comments: take 1 tablet by mouth once daily atorvastatin 20 mg tablet 20 mg PO DAILY Patient Comments: take 1 tablet by mouth once daily meclizine 12.5 mg tablet 12.5 mg PO TID PRN Patient Comments: take 1 tablet by mouth three times a day if needed for dizziness olmesartan 40 mg tablet 40 mg PO DAILY Patient Comments: take 1 tablet by mouth once daily levothyroxine 112 mcg tablet 112 mcg PO DAILY Patient Comments: take 1 tablet by mouth once daily EXCEPT FOR FRIDAYS Changed sodium chloride 1,000 mg tablet,soluble 1,000 mg PO BID Qty: 60 0RF Patient Comments: take 1 tablet by mouth daily EXCEPT TAKE 2 TABS ON SUNDAY, WEDNESDAYS AND FRIDAYS Held sertraline [Zoloft] 25 MG tablet 25 mg PO DAILY Hold Instructions: Resume on 08/08/23. furosemide 20 MG tablet 20 mg PO DAILY Hold Instructions: Resume on 08/08/23. Weigh self as included in instructions Discontinued Valsartan/Hydrochlorothiazide [Diovan Hct 320-25 Mg Tablet] 1 TABLET tablet 1 tab PO DAILY meloxicam 15 mg tablet 15 mg PO DAILY Patient Comments: take 1 tablet by mouth once daily with food Referrals / Follow Up: De Snowden MD [Med Staff - Consulting] - Argelia Darby DO [Primary Care Provider] - Within 1 Week Disposition Disposition (needs filled in before D/C Order can be placed): [facility] Charges/Coding Visit Charges Inpatient E&M: 67272 Disch Hosp >30min 07/31/23 1405 <Electronically signed by Natalya Wright MD> Cosigner Signature (if applicable): CC: Dr. Argelia Darby DO; Dr. Natalya Wright MD~ Signed [facility] Work Phone: Evaluation + Plan note Future Appointments Appointment Date:07/27/2021 02:00:00 PM Scheduled Provider:SHAYNE GONZALEZ Location:[facility] Appointment Type:CV OV Appointment Date:09/13/2021 10:00:00 AM Scheduled Provider:ARGELIA DARBY DO Location:[facility] Appointment Type:PC OV Appointment Date:09/29/2021 11:30:00 AM Scheduled Provider:SHAYNE GONZALEZ Location:[facility] Appointment Type:CV OV [facility] Evaluation + Plan note Future Appointments Appointment Date:08/31/2021 02:00:00 PM Scheduled Provider:SHAYNE GONZALEZ Location:[facility] Appointment Type:CV OV Appointment Date:09/13/2021 10:00:00 AM Scheduled Provider:ARGELIA DARBY DO Location:[facility] Appointment Type:PC OV Appointment Date:09/29/2021 11:30:00 AM Scheduled Provider:SHAYNE GONZALEZ Location:[facility] Appointment Type:CV OV [facility] Evaluation + Plan note Future Appointments Appointment Date:03/01/2022 01:15:00 PM Scheduled Provider:SHAYNE GONZALEZ Location:[facility] Appointment Type:CV OV Appointment Date:04/05/2022 11:00:00 AM Scheduled Provider:ARGELIA DARBY DO Location:[facility] Appointment Type:PC OV Future Scheduled Tests Laboratory* Basic Metabolic Panel 10/06/21 * Thyroid Stimulating Hormone 12/04/[address] [facility] Evaluation + Plan note Future Appointments Appointment Date:03/01/2022 01:15:00 PM Scheduled Provider:SHAYNE GONZALEZ Location:[facility] Appointment Type:CV OV Appointment Date:04/05/2022 11:00:00 AM Scheduled Provider:ARGELIA DARBY DO Location:[facility] Appointment Type:PC OV Future Scheduled Tests Laboratory* Basic Metabolic Panel 10/13/21 * Thyroid Stimulating Hormone 12/04/[address] [facility] Evaluation + Plan note Future Appointments Appointment Date:03/01/2022 01:15:00 PM Scheduled Provider:SHAYNE GONZALEZ Location:[facility] Appointment Type:CV OV Appointment Date:04/05/2022 11:00:00 AM Scheduled Provider:ARGELIA DARBY DO Location:[facility] Appointment Type:PC OV Future Scheduled Tests Laboratory* Thyroid Stimulating Hormone 12/04/[address] [facility] Evaluation + Plan note Future Appointments Appointment Date:12/09/2021 09:30:00 AM Scheduled Provider: Location:[facility] Appointment Type:PT Outpatient Evaluation Appointment Date:03/01/2022 01:15:00 PM Scheduled Provider:SHAYNE GONZALEZ Location:[facility] Appointment Type:CV OV Appointment Date:04/05/2022 11:00:00 AM Scheduled Provider:ARGELIA DARBY DO Location:[facility] Appointment Type:PC OV [facility] Evaluation + Plan note Future Appointments Appointment Date:03/01/2022 01:15:00 PM Scheduled Provider:SHAYNE GONZALEZ Location:[facility] Appointment Type:CV OV Appointment Date:04/05/2022 11:00:00 AM Scheduled Provider:ARGELIA DARBY DO Location:[facility] Appointment Type:PC OV [facility] Evaluation + Plan note Future Appointments Appointment Date:07/11/2022 11:30:00 AM Scheduled Provider:ARGELIA DARBY DO Location:[facility] Appointment Type:PC Wellness Medicare Appointment Date:09/06/2022 01:00:00 PM Scheduled Provider:SHAYNE GONZALEZ Location:[facility] Appointment Type:CV OV Appointment Date:10/10/2022 11:00:00 AM Scheduled Provider:ARGELIA DARBY DO Location:[facility] Appointment Type:PC OV Follow Up Future Scheduled Tests Laboratory* Basic Metabolic Panel 04/19/[address] [facility] evaluation + Plan note Future Appointments Appointment Date:07/11/2022 11:30:00 AM Scheduled Provider:ARGELIA DARBY DO Location:[facility] Appointment Type: Wellness Medicare Appointment Date:09/06/2022 01:00:00 PM Scheduled Provider:SHAYNE GONZALEZ Location:[facility] Appointment Type:CV OV Appointment Date:10/10/2022 11:00:00 AM Scheduled Provider:ARGELIA DARBY DO Location:[facility] Appointment Type:PC OV Follow Up [facility] Evaluation + Plan note Future Appointments Appointment Date:09/06/2022 01:00:00 PM Scheduled Provider:SHAYNE GONZALEZ Location:[facility] Appointment Type:CV OV Appointment Date:12/26/2022 11:00:00 AM Scheduled Provider:ARGELIA DARBY DO Location:[facility] Appointment Type:PC OV Follow Up [facility] Evaluation + Plan note Future Appointments Appointment Date:01/29/2023 01:30:00 PM Scheduled Provider:SHAYNE GONZALEZ Location:[facility] Appointment Type:CV OV [facility] Evaluation + Plan note Future Appointments Appointment Date:01/29/2023 01:30:00 PM Scheduled Provider:SHAYNE GONZALEZ Location:[facility] Appointment Type:CV OV Future Scheduled Tests Laboratory* Complete Metabolic Panel 02/26/[address] [facility] Evaluation + Plan note Future Appointments Appointment Date:05/01/2023 01:00:00 PM Scheduled Provider:SHAYNE GONZALEZ Location:[facility] Appointment Type:CV OV Appointment Date:07/13/2023 02:00:00 PM Scheduled Provider:ARGELIA DARBY DO Location:[facility] Appointment Type: Wellness Medicare Future Scheduled Tests Laboratory* Complete Metabolic Panel 02/26/[address] [facility] Evaluation + Plan note Future Appointments Appointment Date:07/24/2023 10:45:00 AM Scheduled Provider: Location:[facility] Appointment Type:PC Nurse Injection Appointment Date:09/07/2023 11:30:00 AM Scheduled Provider:ARGELIA DARBY DO Location:[facility] Appointment Type:PC OV Appointment Date:11/13/2023 01:00:00 PM Scheduled Provider:SHAYNE GONZALEZ Location:[facility] Appointment Type:CV OV Future Scheduled Tests Laboratory* Complete Metabolic Panel 02/26/[address] [facility] Evaluation + Plan note Future Appointments Appointment Date:08/21/2023 10:45:00 AM Scheduled Provider: Location:[facility] Appointment Type:PC Nurse Appointment Date:09/07/2023 11:30:00 AM Scheduled Provider:ARGELIA DARBY DO Location:[facility] Appointment Type:PC OV Appointment Date:11/13/2023 01:00:00 PM Scheduled Provider:SHAYNE GONZALEZ Location:[facility] Appointment Type:CV OV Diagnostic Tests Pending * Urinalysis 07/27/23 Future Scheduled Tests Laboratory* Complete Metabolic Panel 02/26/[address] [facility] Evaluation + Plan note Future Appointments Appointment Date:08/21/2023 10:45:00 AM Scheduled Provider: Location:[facility] Appointment Type:PC Nurse Appointment Date:09/07/2023 11:30:00 AM Scheduled Provider:ARGELIA DARBY DO Location:[facility] Appointment Type:PC OV Appointment Date:11/13/2023 01:00:00 PM Scheduled Provider:SHAYNE GONZALEZ Location:[facility] Appointment Type:CV OV Future Scheduled Tests Laboratory* Complete Metabolic Panel 02/26/[address] [facility] Evaluation + Plan note Future Appointments Appointment Date:09/07/2023 11:30:00 AM Scheduled Provider:ARGELIA DARBY DO Location:[facility] Appointment Type:PC OV Appointment Date:09/25/2023 11:30:00 AM Scheduled Provider: Location:[facility] Appointment Type:PC Nurse Appointment Date:11/13/2023 01:00:00 PM Scheduled Provider:SHAYNE GONZALEZ Location:[facility] Appointment Type:CV OV Future Scheduled Tests Laboratory* Complete Metabolic Panel 08/22/[address] [facility] Evaluation + Plan note Future Appointments Appointment Date:11/13/2023 01:00:00 PM Scheduled Provider:SHAYNE GONZALEZ Location:[facility] Appointment Type:CV OV [facility] Evaluation + Plan note Future Appointments Appointment Date:12/19/2023 02:15:00 PM Scheduled Provider: Location:[facility] Appointment Type:PC Nurse Injection Appointment Date:01/24/2024 02:30:00 PM Scheduled Provider:ARGELIA DARBY DO Location:[facility] Appointment Type:PC OV Future Scheduled Tests Laboratory* Basic Metabolic Panel 12/05/[address] [facility] Evaluation + Plan note Future Appointments Appointment Date:12/19/2023 02:15:00 PM Scheduled Provider: Location:[facility] Appointment Type:PC Nurse Injection Appointment Date:01/24/2024 02:30:00 PM Scheduled Provider:ARGELIA DARBY DO Location:[facility] Appointment Type:PC OV [facility] Evaluation + Plan note Future Appointments Appointment Date:03/13/2024 03:00:00 PM Scheduled Provider:ARGELIA DARBY DO Location:[facility] Appointment Type:PC OV Future Scheduled Tests Laboratory* Basic Metabolic Panel 03/13/[address] [facility] Evaluation + Plan note Future Appointments Appointment Date:03/13/2024 03:00:00 PM Scheduled Provider:ARGELIA DARBY DO Location:[facility] Appointment Type:PC OV Diagnostic Tests Pending * Osmolality Urine 03/03/24 Future Scheduled Tests Laboratory* Basic Metabolic Panel 03/13/[address] [facility] Evaluation + Plan note Future Appointments Appointment Date:04/24/2024 02:30:00 PM Scheduled Provider:ARGELIA DARBY DO Location:[facility] Appointment Type:PC OV Future Scheduled Tests Laboratory* Basic Metabolic Panel 03/13/[address] [facility] evaluation + Plan note Future Appointments Appointment Date:06/10/2024 01:00:00 PM Scheduled Provider:ARGELIA DARBY DO Location:[facility] Appointment Type:PC OV Future Scheduled Tests Laboratory* Basic Metabolic Panel 03/13/[address] [facility] evaluation + Plan note Future Appointments Appointment Date:08/01/2024 12:30:00 PM Scheduled Provider:ARGELIA DARBY DO Location:[facility] Appointment Type:PC Wellness Medicare Future Scheduled Tests Laboratory* Basic Metabolic Panel 03/13/[address] [facility] evaluation + Plan note Future Appointments Appointment Date:10/03/2024 01:30:00 PM Scheduled Provider:ARGELIA DARBY DO Location:[facility] Appointment Type:PC OV Future Scheduled Tests Laboratory* Basic Metabolic Panel 03/13/[address] [facility] evaluation + Plan note Future Appointments Appointment Date:12/18/2024 02:30:00 PM Scheduled Provider:ARGELIA DARBY DO Location:[facility] Appointment Type:PC OV Future Scheduled Tests Laboratory* Basic Metabolic Panel 03/13/[address] [facility] evaluation note* Diagnosis Onset Date Resolution Status COVID-19 acute Hyponatremia acute [facility] Work Phone: evaluation note* Diagnosis Onset Date Resolution Status COVID-19 acute Hyponatremia acute Anxiety acute COVID-19 acute Debility acute Depression acute Hyperlipidemia acute Hypomagnesemia acute Hyponatremia acute Osteoarthritis acute HTN (hypertension) chronic [facility] Work Phone: evaluation note* Diagnosis Onset Date Resolution Status COVID-19 resolved Hyponatremia resolved HTN (hypertension) chronic Hyperlipidemia chronic Anxiety resolved COVID-19 resolved Hypomagnesemia resolved Hyponatremia resolved Vertigo acute CAD (coronary artery disease) chronic HTN (hypertension) chronic Hyperlipidemia chronic [facility] Work Phone: Evaluation note* Diagnosis Urinary retention- Primary Unspecified retention of [facility] Urinary retention- Primary Unspecified retention of urine [facility] this [facility] Author Sandro Jackman [facility] Note Date/Time December 06, 2024 7:0 9pm [facility] Medical Records Department [address] [place] [address] H&P Exam - Hospitalist 12/06/24 1852 MR#: [id number] Acct: [id number] Name: JERO LEWIS Rep #:[id number] : 1945 79 From: Sandro Jackman MD PCP: Dr. Argelia Darby, DO Status:ADM IN Location: [facility] [id number] HPI - General General Date of Admission: 12/06/24 Date of Service: 12/06/24 Chief Complaint: Acute fall HPI Narrative JERO LEWIS, is a 79 F with past medical history of coronary artery disease, hypertension, dizziness, mitral valve insufficiency, was brought to the ED following a fall while picking up groceries today. Per the patient she had an episode of blackout and when she woke up had blood all over her face and severe pain over her left leg. As background history she has been having episodes of lightheadedness and syncopal episodes and has been following up closely with cardiology for the lastfew months. No reason for her episodes are not exactly known, she has undergoneextensive evaluation including Holter monitoring, pharmacological stress testing, and next plan of action was considered to be CT coronary angio. On herHolter monitor she was noted to have recurrent episodes of NSVT. She is also being planned to be evaluated by neurology for the reason for her presentation. At the time of presentation in the ED, blood pressure 136/64, oxygen saturation 93%, WBC 11.6, hemoglobin 13.6, platelet count 279, sodium 134, potassium 4.3, chloride 97, high-sensitivity troponin was elevated at 108, X-ray showed acute fracture of the patellar body which displaced approximately 6 mm with joint effusion. No evidence of acute facial fracture, Cervical spine fracture, Or intracranial bleed [facility] Medical History Allergic rhinitis Anxiety and depression CAD (coronary artery disease) Kimberlee disease Chronic hyponatremia COVID-19 Debility Depression Dizziness Fatigue History of endometrial biopsy HTN (hypertension) Hyperlipidemia Hypothyroidism MVP (mitral valve prolapse) Myalgia Osteoarthritis Pulmonary hypertension PVCs (premature ventricular contractions) RLS (restless legs syndrome) Sleep apnea SOB (shortness of breath) Vertigo Vitamin B12 deficiency Vitamin D deficiency Home Medications ?Medication ?Instructions ?Recorded ?Last Taken ?Type atorvastatin 20 mg tablet 20 mg PO DAILY hld 07/28/23 07/30/23 History sodium chloride 1,000 mg soluble 1,000 mg PO BID suppl ement #60 tabs 07/31/23 07/31/23 Rx tablet acetaminophen 500 mg tablet 1,000 mg (2 x 500 mg) PO Q 6H PRN 08/08/23 Unknown Rx PRN Pain Score 1-10 #0 tabs meloxicam 15 mg tablet 15 mg PO DAILY #0 tabs 08/08 Unknown Rx aspirin 81 mg tablet,delayed 81 mg PO DAILY #90 tabs 1 11/05/22 Unknown Rx release (Adult Aspirin Regimen) calcium 600 mg-D3 800 unit-mag 40 1 tab PO BID 3 Unknown History [id number]-boron chew tablet (Caltrate 600-D Plus Minerals) cyanocobalamin (vitamin B-12) 1,000 mcg PO QMONTH 08/24 11/16 Unknown History 1,000 mcg capsule olmesartan 40 mg tablet 40 mg PO DAILY see #90 ta bs 10/25/23 Unknown Rx ipratropium bromide 21 mcg (0.03 2 spray intranasal BI D 03/11/24 Unknown History %) nasal spray levocetirizine 5 mg tablet 5 mg PO QDAY 03/11/24 Unkno wn History sertraline 100 mg tablet 100 mg PO QDAY 03/11/24 Unkn own History levothyroxine 125 mcg tablet 112 mcg PO QDAY 06/10/24 Unknown History liothyronine 5 mcg tablet 5 mcg PO QDAY 12/04/24 Unkno wn History metoprolol tartrate 50 mg tablet 50 mg PO BID #180 tab s 12/04/24 Unknown Rx spironolactone 25 mg tablet 25 mg PO DAILY #90 tabs Unknown Rx carvedilol 3.125 mg tablet 3.125 mg PO BID 12/06/24 History Allergy/AdvReac Type Severity Reaction Status Date / Time propoxyphene HCl (From Allergy Nausea Verified 12/06/24 16:36 Darvon) atorvastatin AdvReac Intermediate myalgia Verified 12/06/24 16:36 codeine AdvReac Intermediate Nausea Verified 12/06/24 16:36 simvastatin AdvReac Intermediate Myalgia Verified 12/06/24 16:36 Family History Mother CVA (cerebral vascular accident) Father Kimberlee disease Son Kimberlee disease Brother Heart disease Hypertension Daughter Lupus Arthritis Sister Melanoma Surgical History H/O cone biopsy of cervix H/O dilation and curettage History of tonsillectomy (~1958) Hx of cardiac catheterization (~09/09/20) Hx of cataract extraction (~2020) Hx of myringotomy Hx of tubal ligation (~1982) S/P thyroid biopsy Social History household members: none Smoking Status: Never smoker alcohol intake: never substance use type: does not use caffeine: Yes Type: coffee Number of servings: 2 ROS Review of Systems ROS Unobtainable: Denies due to encephalopathy, due to endotracheal tube, due tomental condition, due to mental status or other Constitutional Constitutional: Denies anorexia, change in weight, chills, fatigue, fever(s), malaise, night sweats, weakness or other Eyes Eyes: Denies blurry vision, change in eye color, change in vision, discharge from eye(s), double vision, erythema, eye pain, loss of vision or other ENT HEENT: Denies abnormal hearing, dysphagia, ear pain, epistaxis, headache(s), hearing loss, nasal congestion, nasal discharge, post nasal drip, sinus pressure, sore throat or other Cardiovascular Cardiovascular: Reports lightheadedness, rapid heart rate and syncope Respiratory/Chest Respiratory/Chest: Denies cough, dyspnea, excessive phlegm production, hemoptysis, productive cough, shortness of breath at rest, shortness of breath with exertion, wheezing or other Gastrointestinal Gastrointestinal: Denies abdominal pain, coffee ground emesis, constipation, diarrhea, dyspepsia, hematemesis, hematochezia, loose stools, melena, nausea, vomiting or other Genitourinary Genitourinary: Denies burning urination, difficulty urinating, dysuria, hematuria, nocturia, urinary frequency, urinary hesitancy, urinary incontinence,urinary urgency or other Musculoskeletal Musculoskeletal: Denies arthralgias, back pain, joint pain, joint stiffness, joint swelling, myalgias, neck pain or other Neurologic Neurologic: Reports disequilibrium, dizziness and syncope Psychiatric Psychiatric: Denies anxiety, depression, homicidal ideation, suicidal ideation or other Endocrine Endocrinology: Denies change in body appearance, cold intolerance, excessive sweating, heat intolerance, polydipsia, polyuria or other Hematologic/Lymphatic Hematologic/Lymphatic: Denies anemia, easy bleeding, easy bruising, lymphadenopathy or other Allergic/Immunologic Allergic/Immunologic: Denies rhinitis, hives, eczemia, asthma or other Vital Signs Vital Signs Vital Signs: 12/06/24 16:31 12/06/24 16:36 12/06/24 17:30 Temperature 98.1 F Temperature Source Temporal Pulse Rate 82 81 Respiratory Rate 22 H Respiratory Effort Normal Non-Labored Blood Pressure 162/88 H 162/106 H Blood Pressure Mean 112 124 Pulse Ox 100 100 Oxygen Delivery Method Room Air Room Air 12/06/24 18:00 Temperature Temperature Source Pulse Rate 65 Respiratory Rate Respiratory Effort Blood Pressure 136/64 H Blood Pressure Mean 88 Pulse Ox 93 Oxygen Delivery Method Weight Weight: 191 lb 12.835 oz Body Mass Index (BMI) 30.9 Physical Exam Const alert and oriented x3 Constitutional Narrative: Patient in significant pain because of her patellar fracture HEENT normocephalic HEENT Narrative: Small abrasion right frontal scalp, bruising and swelling on right upper eyelid. 2 small linear lacerations and dried blood on right upper lip does not cross vermilion border. Eyes PERRL Resp normal respiratory effort and no retractions Cardio regular rate and regular rhythm Cardio Narrative: Tachycardia present GI normal to inspection, nondistended, normoactive bowel sounds Extremity Extremity Narrative: Pain with movement, swelling present. 3 cm laceration on right palm over the fifth MCP palmar aspect extending around to the dorsal surface Neuro oriented x3 and CN's II-XII intact bilaterally Results Lab / Micro Data 12/06/24 16:35 12/06/24 16:35 Labs: Laboratory Results - last 24 hr 12/06/24 16:35: WBC 11.6 H, RBC 4.62, Hgb 13.6, Hct 40.5, MCV 87.7, MCH 29.4, MCHC 33.6, RDW Std Deviation 41.1, RDW Coeff of Alejo 12.9, Plt Count 279, MPV 9.2, Immature Gran % (Auto) 0.500, Neut % (Auto) 85.3 H, Lymph % (Auto) 8.6 L, Meigs % (Auto) 4.0, Eos % (Auto) 1.3, Baso % (Auto) 0.3, Absolute Neuts (auto) 9.9 H, Absolute Lymphs (auto) 0.99, Nucleated RBC % 0, Sodium 134, Potassium 4.3, Chloride 97 L, Carbon Dioxide 23.1, Anion Gap 14, BUN 16, Creatinine 0.96, Estim Creat Clear Calc 51.06, Est GFR (MDRD) Non-Af 60, BUN/Creatinine Ratio 17.1, Glucose 127 H, Calcium 9.5, Troponin T High Sens 108 H* Imaging Radiology Impression Brain CT 12/06/24 16:41 IMPRESSION: No acute intracranial abnormality. Senescent changes. Reading Location: [facility] Cervical Spine CT 12/06/24 16:41 IMPRESSION: No evidence of acute cervical spine fracture. Demineralization does limit sensitivity One or more dose reduction techniques were used (e.g., Automated exposure control, adjustment of the mA and/or kV according to patient size, use of iterative reconstruction technique). Reading Location: [facility] Facial/Sinus 12/06/24 16:41 IMPRESSION: No evidence of acute facial fracture. Senescent changes. One or more dose reduction techniques were used (e.g., Automated exposure control, adjustment of the mA and/or kV according to patient size, use of iterative reconstruction technique). Reading Location: [facility] Chest X-Ray 12/06/24 17:10 IMPRESSION: No acute findings. Senescent changes. Mild cardiac enlargement. Reading Location: [facility] Knee X-Ray 12/06/24 17:10 IMPRESSION: Acute patellar fracture on background demineralization. Reading Location: [facility] Echocardiogram 09/26/2023: Interpretation Summary The left ventricular ejection fraction is 55 %. Stage 1 diastolic dysfunction. Mild (1+) mitral valve insufficiency. Moderate (2+) eccentric tricuspid valve insufficiency. ECHOCARDIOGRAM 08/01/21: SUMMARY 1. Left ventricle: The cavity size is normal. Wall thickness is normal. Systolicfunction is mildly reduced. The estimated ejection fraction is 50%. There is mild diffuse hypokinesis. Diastolic dysfunction is present. 2. Mitral valve: There is mild regurgitation. 3. Left atrium: The atrium is mildly dilated. 4. Right ventricle: The RV systolic pressure by Doppler is 41 mmHg. 5. Right atrium: The atrium is mildly dilated. Stress Test 06/25/2024: Impression: 1. Pharmacologic (Regadenoson) evaluation 2. Peak pharmacologic ECG was nondiagnostic secondary to baseline changes. 3. Frequent PVCs noted pretest, during pharmacologic infusion and in recovery. 5. Rest and stress SPECT Cardiolite nuclear imaging demonstrate relative uniform tracer uptake and myocardial perfusion appearing within normal limits. 6. The gated Cardiolite study reports an LVEF of 63%. STRESS TEST 09/02/20: IMPRESSION 1. EKG portion of Lexiscan stress test is uninterpretable due to abnormal baseline. 2. Results of nuclear images will be reported separately. 3. Dr Mas was available through telephone/telehealth during stress test. IMPRESSION 1. Technically difficult study due to subdiaphragmatic tracer activity as well as breast attenuation. 2. Small area of ischemia involving distal anterolateral, anterior segments and apex versus shifting breast attenuation artifact. No evidence of prior infarct. 3. Normal systolic function with ejection fraction of 63%. 4. No prior studies for comparison. 14-Day Cardiac Event Monitor 10/14/2024: Findings: -The predominant rhythm was sinus with frequent ventricular ectopy. -The maximum heart rate recorded was 175 bpm, 09/13 10:56:21, the minimum heart rate recorded was 41 bpm, 09/08 04:06:40, and the average heart rate was 64 bpm. -There were 82, 158 VE beats with a burden of 6%. There was 1 occurrence of ventricular tachycardia with the fastest episode 140 bpm, 09/07 22:59:49, and the longest episode 4 beats, 09/07 22:59:49. -There were 3,430 SVE beats with a burden of <1%. There were 73 occurrences of supraventricular tachycardia with the fastest episode 175 bpm, 09/13 10:56:19, and the longest episode 13 beats, 09/13 23:15:00. -Other rhythms in this study include: Ventricular Run. -There were 19 patient triggers. 24-Hour Event Monitor 06/25/2024: Interpretation: [place] [address] beats recorded over the 24 hour period. Normal SinusRhythm with frequent PVCs and rare PACs. Average heart rate was 66 BPM Minimum heart rate was 43 BPM at 0712 AM, sinus bradycardia Maximum heart rate was 118 BPM at 1222 AM, sinus rhythm The longest R-R interval was 1.8 seconds at 0634 AM There were a total of 4012 premature ventricular ectopic isolated beats, comprising of 4.3% of the total QRS complexes. 1 triplet, 23 couplets, 29 interpolated beats, 4 trigeminy beats, and 109 bigeminy beats. No runs noted. There were a total of 72 premature supraventricular ectopic isolated beats, comprising of 0.1% of the total QRS complexes. 3 atrial runs. The longest and fastest run consisted of 6 beats with a maximum heart rate of 141 BPM at 0701 AM. No atrial fibrillation noted. The patient kept a diary with a feeling of being tired after her stress test. 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 No major dysrhythmias recorded. 1 run of 7 beat nonsustained ventricular tachycardia was noted no symptom to arrhythmia correlation could be performed. Min HR 42 BPM Max HR 172 BPM Avg HR 58 BPM CARDIAC CATHETERIZATION 09/09/20: SUMMARY 1. Left ventricle: Systolic function is normal. The estimated ejection fraction is 55-60%. 2. LAD: Mid vessel lesion: There is 40% stenosis. 3. Left circumflex: Mid vessel lesion: There is 40% stenosis. Assessment & Plan Assessment/Plan (1) Closed fracture of left patella: PLAN: Plan 79-year-old female with history of coronary artery disease, dizziness, presents to the ED with concerns regarding fall resulting in left patellar fracture. #Left vertebral fracture #Unable to mobilize -Appreciate orthopedics input, plan for possible surgical intervention tomorrow -Pain control with opioids as needed, she is in significant pain at this time -Rest and elevation of the limb, mobilize in the ED #Recurrent syncopal episodes #Dizziness -Follows with cardiology, etiology is not known -Repeat NT proBNP levels -Will hold off her beta-blockers and diuretics at this time as it could be partly putting to her orthostatic symptoms -Continue olmesartan for now if no improvement we can consider stopping that andobserving changes in her blood pressure also #NSVT -Has had extensive Holter monitoring in the past -Follow-up on troponin levels, hold off beta-blockers and diuretics at this time. #Coronary artery disease -Follows up with outpatient cardiology -CT angiography as an outpatient #Acute pain -Controlled with opioids, joint immobilization # Hypertension -Continue home medications #DVT prophylaxis -Enoxaparin subcutaneous #CODE STATUS -She is DNR CCA, agreeable to be full code for the procedure 12/06/241908 <Electronically signed by Sandro Jackman MD> Cosigner Signature (if applicable): CC: Dr. Sandro Jackman MD; Dr. Argelia Darby, DO~ Signed [facility] Work Phone: Hospital course Narrative No data available for this section [facility] Hospital Discharge instructions No data available for this section [facility] Hospital Discharge instructions Additional Instructions Discharge home alone 08/14/2023, [facility], [facility] Work Phone: Progress note No data available for this section [facility] Reason for referral (narrative)No reason for referral information availableW[facility] Work Phone: Chief Complaint and Reason for Visit Chief Complaint HYPONATREMIA, COVID HYPONATREMIA, COVID HYPONATREMIA, COVID HYPONATREMIA, COVID HYPONATREMIA, COVID Reason for Visit COVID-19 Hyponatremia Chief Complaint HYPONATREMIA, COVID HYPONATREMIA, COVID HYPONATREMIA, COVID HYPONATREMIA, COVID HYPONATREMIA, COVID HYPONATREMIA/COVID Reason for Visit COVID-19 Hyponatremia Anxiety COVID-19 Debility Depression Hyperlipidemia Hypomagnesemia Hyponatremia Osteoarthritis HTN (hypertension) Chief Complaint HYPONATREMIA, COVID HYPONATREMIA, COVID HYPONATREMIA, COVID HYPONATREMIA, COVID HYPONATREMIA, COVID HYPONATREMIA/COVID HTN ([facility] / SELF) Atherosclerotic heart disease of blackfeet coronary a Amb Documentation Reason for Visit COVID-19 Hyponatremia HTN (hypertension) Hyperlipidemia Anxiety COVID-19 Hypomagnesemia Hyponatremia Vertigo CAD (coronary artery disease) HTN (hypertension) Hyperlipidemia Chief Complaint Admit Date 6 M FU August 28, 2024 2 :24pm DIZZINESS September 06, 2024 10:52am 30 DAY MONITOR September 06, 2024 12:37pm 3 M FU December 04, 2024 2:2 5pm SYNCOPE December 06, 2024 6:0 5pm Syncope December 06, 2024 6:5 2pm Reason for Visit Admit Date CAD (coronary artery disease) August 282023 2:24pm Dizziness August 28, 2024 2 :24pm Grade I diastolic dysfunction August 282023 2:24pm HTN (hypertension) August 28, 2024 2 :24pm Mitral valve insufficiency August 28, 2024 2:24pm Syncope August 28, 2024 2 :24pm CAD (coronary artery disease) November 2:25pm Dizziness December 04, 2024 2:2 5pm Grade I diastolic dysfunction November 2:25pm HTN (hypertension) December 04, 2024 2:2 5pm Mitral valve insufficiency December 04, 025 2:25pm NSVT (nonsustained ventricular tachycard ia) December 04, 2024 2:25pm Closed fracture of left patella December 062024 6:05pm Contusion of face December 06, 2024 6:0 5pm Laceration of lip December 06, 2024 6:0 5pm Laceration of right hand December 06 6:05pm Syncope December 06, 2024 6:0 5pm Unable to ambulate December 06, 2024 6:0 5pm Chief Complaint Admit Date 6 M FU August 28, 2024 2 :24pm DIZZINESS September 06, 2024 10:52am 30 DAY MONITOR September 06, 2024 12:37pm 3 M FU December 04, 2024 2:2 5pm SYNCOPE December 06, 2024 6:4 5pm Syncope December 06, 2024 6:5 2pm Syncope December 07, 2024 1:1 0pm Syncope December 07, 2024 1:3 7pm Syncope December 08, 2024 11: 49am Syncope December 08, 2024 1:2 6pm Syncope December 09, 2024 1:1 5pm Syncope December 10, 2024 12: 41am Syncope December 11, 2024 9:4 7am Reason for Visit Admit Date CAD (coronary artery disease) August 282023 2:24pm Dizziness August 28, 2024 2 :24pm Grade I diastolic dysfunction August 282023 2:24pm HTN (hypertension) August 28, 2024 2 :24pm Mitral valve insufficiency August 28, 2024 2:24pm Syncope August 28, 2024 2 :24pm CAD (coronary artery disease) November 2:25pm Dizziness December 04, 2024 2:2 5pm Grade I diastolic dysfunction November 2:25pm HTN (hypertension) December 04, 2024 2:2 5pm Mitral valve insufficiency December 04, 2 025 2:25pm NSVT (nonsustained ventricular tachycard ia) December 04, 2024 2:25pm Closed fracture of left patella December 062024 6:45pm Closed transverse fracture of left wan la December 06, 2024 6:45pm Contusion of face December 06, 2024 6:4 5pm Elevated troponin December 06, 2024 6:4 5pm Hyponatremia December 06, 2024 6:4 5pm Laceration of lip December 06, 2024 6:4 5pm Laceration of right hand December 06 6:45pm Preoperative cardiovascular examination December 06, 2024 6:45pm Syncope December 06, 2024 6:4 5pm Unable to ambulate December 06, 2024 6:4 5pm NSVT (nonsustained ventricular tachycard ia) December 06, 2024 6:45pm Family History No Family History Records Found Relationship Condition Age at Onset Recorded Date/T tamara mother Cerebrovascular accident (CVA) Unknown father Hemophilia B Unknown son Hemophilia B Unknown brother Cardiac disease Unknown Hypertension Unknown daughter Lupus Unknown sister Malignant melanoma Unknown Advance Directives No Advanced Directives Records Found Advance Directive Response Recorded Date/ Time Name of Medical Power of Lead Javascript Developer maxim lewis July 27, 2023 11:57pm Advance Directives Yes July 26, 2015 7:47am Living Will Yes July 27 11:57pm Power of Lead Javascript Developer Yes July 27, 2023 11:57pm Advance Directive Response Recorded Date/ Time Name of Medical Power of Lead Javascript Developer Maxim Lewis, son August 01, 2023 4:35pm Advance Directives Yes July 26, 2015 7:47am Living Will Yes August 01 4:35pm Power of Lead Javascript Developer Yes August 01, 2023 4:35pm Name of Medical Power of Lead Javascript Developer maxim lewis July 27, 2023 11:57pm Advance Directive Response Recorded Date/ Time Advance Directives Yes July 26, 2015 8:47am Advance Directive Response Recorded Date/ Time Living Will Yes December 06, 2024 8:05pm Do you have a Healthcare Power of Lead Javascript Developer? Yes December 06, 2024 8:05pm Name of Medical Power of Lead Javascript Developer Maxim Jeffries December 06, 2024 8:05pm Advance Directives Yes July 26, 2015 8:47am Summary Purpose Additional Source Comments Care Team (unrecognized sect ion and content) Team Status: Active Member Role Status Dates Dr. Anel Read MD Family Provider Active Dr. Argelia Darby , Primary Care Provider Active Team Status: Active Member Role Status Dates Dr. Madhavi Pate MD Admit Provider, Attending Provider, Other Provider Active Dr. Argelia Darby , Primary Care Provider Active Team Status: Active Member Role Status Dates Dr. Madhavi Pate MD Admit Provider, Other Provider Active Dr. Argelia Darby DO Primary Care Provider Active Dr. De Snowden MD Other Provider Active Dr. Trever Viveros MD Attending Provider, Other Provider Active Dr. Brooks Carcamo MD Other Provider Active Team Status: Active Member Role Status Dates Dr. Madhavi Pate MD Admit Provider, Other Provider Active Dr. Argelia Darby DO Primary Care Provider Active Dr. De Snowden MD Other Provider Active Dr. Brooks Carcamo MD Other Provider Active Dr. Natalya Wright MD Attending Provider, Other Provid er Active Dr. Trever Viveros MD Other Provider Active Team Status: Inactive Member Role Status Dates Dr. Madhavi Pate MD Admit Provider, Other Provider Active Dr. Argelia Darby DO Primary Care Provider Active Dr. De Snowden MD Other Provider Active Dr. Brooks Carcamo MD Other Provider Active Dr. Natalya Wright MD Attending Provider, Other Provid er Active Dr. Trever Viveros MD Other Provider Active Team Status: Inactive Member Role Status Dates Dr. Argelia Darby DO Primary Care Provider Active Dr. Juan Diego Marks MD Admit Provider, At tending Provider, Referring Provider Active Team Status: Inactive Member Role Status Dates Dr. Argelia Darby DO Primary Care Provider, Referri ng Provider Active Dr. Kristy Andrew MD Attending Provider Active Team Status: Active Member Role Status Dates Dr. Argelia Darby DO Primary Care Provider Active Dr. Kristy Andrew MD Attending Provider Active Team Status: Active Member Role Status Dates Dr. Argelia Darby DO Primary Care Provider Active Jesus Woodard PRISON GUARD SUPERVISOR, PRISON GUARD SUPERVISOR-C Attending Provider Active Team Status: Inactive Member Role Status Dates Dr. Argelia Darby DO Primary Care Provider Active Dr. Kristy Andrew MD Attending Provider, Referring Pr ovider Active Team Status: Active Member Role Status Dates Dr. rAgelia Darby DO Primary Care Provider Active Team Status: Inactive Member Role Status Dates Dr. Argelia Darby DO Primary Care Provider Active Start: August 28, 2024 End: August 28, 2024 Dr. Argelia Darby DO Referring Provider Active Start: August 28, 2024 End: August 28, 2024 Dr. Kristy Andrew MD Attending Provider Active Start: August 28, 2024 End: August 28, 2024 Team Status: Active Member Role Status Dates Dr. Argelia Darby DO Primary Care Provider Active Start: September 06, 2024 Dr. Kristy Andrew MD Attending Provider Active Start: September 06, 2024 Dr. Kristy Andrew MD Referring Provider Active Start: September 06, 2024 Team Status: Inactive Member Role Status Dates Dr. Argelia Darby DO Primary Care Provider Active Start: December 04, 2024 End: December 04, 2024 Dr. Argelia Darby DO Referring Provider Active Start: December 04, 2024 End: December 04, 2024 Dr. Kristy Andrew MD Attending Provider Active Start: December 04, 2024 End: December 04, 2024 Team Status: Active Member Role Status Dates Dr. Argelia Darby DO Primary Care Provider Active Start: December 06, 2024 Dr. Orville Cortez MD Emergency Provider Active S tart: December 06, 2024 Dr. Sandro Jackman MD Admit Provider Active St art: December 06, 2024 Dr. Sandro Jackman MD Attending Provider Active Start: December 06, 2024 Team Status: Active Member Role Status Dates Dr. Argelia Darby DO Primary Care Provider Active Start: December 06, 2024 Dr. Orville Cortez MD Emergency Provider Active S tart: December 06, 2024 Dr. Sandro Jackman MD Admit Provider Active St art: December 06, 2024 Dr. Sandro Jackman MD Attending Provider Active Start: December 06, 2024 Dr. Sandro Jackman MD Other Provider Active St art: December 06, 2024 Team Status: Inactive Member Role Status Dates Dr. Argelia Darby DO Primary Care Provider Active Start: December 06, 2024 End: December 11, 2024 Dr. Orville Cortez MD Emergency Provider Active S tart: December 06, 2024 End: December 11, 2024 Dr. Sandro Jackman MD Admit Provider Active St art: December 06, 2024 End: December 11, 2024 Dr. Sandro Jackman MD Other Provider Active St art: December 06, 2024 End: December 11, 2024 [facility] Other Provider Active Start: December 06, 2024 End: December 11, 2024 Dr. Michelle Dang MD Other Provider Active Start: December 06, 2024 End: December 11, 2024 Dr. De Snowden MD Other Provider Active Start: December 06, 2024 End: December 11, 2024 Dr. Donovan Cano DO Attending Provider Active Start: December 06, 2024 End: December 11, 2024 Dr. Montse Cabrera MD Other Provider Active St art: December 06, 2024 End: December 11, 2024 Team Status: Active Member Role Status Dates Dr. Argelia Darby DO Primary Care Provider Active Start: December 07, 2024 Dr. Orville Cortez MD Emergency Provider Active S tart: December 07, 2024 Dr. Sandro Jackman MD Admit Provider Active St art: December 07, 2024 Dr. Sandro Jackman MD Other Provider Active St art: December 07, 2024 [facility] Other Provider Active Start: December 07, 2024 Dr. Michelle Dang MD Attending Provider Activ e Start: December 07, 2024 Dr. Michelle Dagn MD Other Provider Active Start: December 07, 2024 Dr. Montse Cabrera MD Other Provider Active St art: December 07, 2024 Team Status: Active Member Role Status Dates Dr. Argelia Darby DO Primary Care Provider Active Start: December 07, 2024 Dr. Orville Cortez MD Emergency Provider Active S tart: December 07, 2024 Dr. Sandro Jackman MD Admit Provider Active St art: December 07, 2024 Dr. Sandro Jackman MD Other Provider Active St art: December 07, 2024 [facility] Other Provider Active Start: December 07, 2024 Dr. Michelle Dang MD Other Provider Active Start: December 07, 2024 Dr. Montse Cabrera MD Attending Provider Active Start: December 07, 2024 Dr. Montse Cabrera MD Other Provider Active St art: December 07, 2024 Team Status: Active Member Role Status Dates Dr. Argelia Darby DO Primary Care Provider Active Start: December 08, 2024 Dr. Orville Cortez MD Emergency Provider Active S tart: December 08, 2024 Dr. Sandro Jackman MD Admit Provider Active St art: December 08, 2024 Dr. Sandro Jackman MD Other Provider Active St art: December 08, 2024 [facility] Other Provider Active Start: December 08, 2024 Dr. Michelle Dang MD Other Provider Active Start: December 08, 2024 Dr. Montse Cabrera MD Attending Provider Active Start: December 08, 2024 Dr. Montse Cabrera MD Other Provider Active St art: December 08, 2024 Team Status: Active Member Role Status Dates Dr. Argelia Darby DO Primary Care Provider Active Start: December 08, 2024 Dr. Orville Cortez MD Emergency Provider Active S tart: December 08, 2024 Dr. Sandro Jackman MD Admit Provider Active St art: December 08, 2024 Dr. Sandro Jackman MD Other Provider Active St art: December 08, 2024 [facility] Other Provider Active Start: December 08, 2024 Dr. Michelle Dang MD Attending Provider Activ e Start: December 08, 2024 Dr. Michelle Dang MD Other Provider Active Start: December 08, 2024 Dr. Montse Cabrera MD Other Provider Active St art: December 08, 2024 Team Status: Active Member Role Status Dates Dr. Argelia Darby DO Primary Care Provider Active Start: December 09, 2024 Dr. Orville Cortez MD Emergency Provider Active S tart: December 09, 2024 Dr. Sandro Jackman MD Admit Provider Active St art: December 09, 2024 Dr. Sandro Jackman MD Other Provider Active St art: December 09, 2024 [facility] Other Provider Active Start: December 09, 2024 Dr. Michelle Dang MD Other Provider Active Start: December 09, 2024 Dr. Montse Caberra MD Attending Provider Active Start: December 09, 2024 Dr. Montse Cabrera MD Other Provider Active St art: December 09, 2024 Team Status: Active Member Role Status Dates Dr. Argelia Darby DO Primary Care Provider Active Start: December 10, 2024 Dr. Orville Cortez MD Emergency Provider Active S tart: December 10, 2024 Dr. Sandro Jackman MD Admit Provider Active St art: December 10, 2024 Dr. Sandro Jackman MD Other Provider Active St art: December 10, 2024 [facility] Other Provider Active Start: December 10, 2024 Dr. Michelle Dang MD Other Provider Active Start: December 10, 2024 Dr. Montse Cabrera MD Other Provider Active St art: December 10, 2024 Dr. De Snowden MD Other Provider Active Start: December 10, 2024 Dr. Madhavi Pate MD Attending Provider Active Start: December 10, 2024 Team Status: Active Member Role Status Dates Dr. Argelia Darby DO Primary Care Provider Active Start: December 11, 2024 Dr. Orville Cortez MD Emergency Provider Active S tart: December 11, 2024 Dr. Sandro Jackman MD Admit Provider Active St art: December 11, 2024 Dr. Sandro Jackman MD Other Provider Active St art: December 11, 2024 [facility] Other Provider Active Start: December 11, 2024 Dr. Michelle Dang MD Other Provider Active Start: December 11, 2024 Dr. De Snowden MD Other Provider Active Start: December 11, 2024 Dr. Donovan Cano DO Attending Provider Active Start: December 11, 2024 Dr. Donovan Cano DO Other Provider Active Start: December 11, 2024 Dr. Montse Cabrera MD Other Provider Active St art: December 11, 2024 Cost Accounting Clerk Relationship Specialty Start Date End Date Artur Georges MD [address] [place] [address] Surgeon Urology 01/19/25 Cost Accounting Clerk Relationship Specialty Start Date End Date Artur Georges MD [address] [place] [id number] Surgeon Urology 01/19/25 Cost Accounting Clerk Relationship Specialty Start Date End Date Artur Georges MD [address] [facility] [address] [place] [id number] Surgeon Urology 01/19/25 Cost Accounting Clerk Relationship Specialty Start Date End Date Artur Georges MD [address] [place] [id number] Surgeon Urology 01/19/25 Care Team (unrecognized sect ion and content) Care Team Personnel Name: SHAYNE GONZALEZ APRN-BUILD AND DEPLOYMENT ENGINEER Position: P4 Advanced Practice Nurse Med Service: Active Provider Member Role: Shift Production Associate Address: Address: [address] [place] [address] Name: ARGELIA DARBY DO Position: P4 Physician - Primary Care Med Service: Active Provider Member Role: Primary Care Physician Address: Address: [address] [place] [address] Name: KRISTIN REYES MD Position: Physician Med Service: Orthopedic Member Role: Orthopaedist Address: Address: [address] [place] [address] Name: JONEL MALIN Member Role: Roll Panner Care Team Related Persons Name: MAXIM LEWIS Name: REJI LEWIS Care Team Personnel Name: SHAYNE GONZALEZ APRN-BUILD AND DEPLOYMENT ENGINEER Position: P4 Advanced Practice Nurse Med Service: Active Provider Member Role: Shift Production Associate Address: Address: [address] [place] [address]- Name: ARGELIA DARBY DO Position: P4 Physician - Primary Care Med Service: Active Provider Member Role: Primary Care Physician Address: Address: [address] [place] [address] Name: KRISTIN REYES MD Position: Physician Med Service: Orthopedic Member Role: Orthopaedist Address: Address: [address] [place] [address] Name: JONEL MALIN Member Role: Roll Panner Care Team Related Persons Name: MAXIM LEWIS Name: REJI LEWIS Care Team Personnel Name: SHAYNE GONZALEZ DAIRY NUTRITIONIST-BUILD AND DEPLOYMENT ENGINEER Position: P4 Advanced Practice Nurse Member Role: Shift Production Associate Address: Address: [address] [facility] [address] [facility] [place] [address] [place] Name: ARGELIA DARBY DO Position: P4 Physician - Primary Care Member Role: Primary Care Physician Address: Address: [address] [facility] [place] [address]- [place] Name: KRISTIN REYES MD Position: Physician Member Role: Orthopaedist Address: Address: [address] [facility] [place] [address]- Name: JONEL MALIN Member Role: Roll Panner Care Team Related Persons Name: MAXIM LEWIS Name: REJI LEWIS INFORMATION SOURCE (unrecogn ized section and content) DATE CREATED AUTHOR 05/24/2024 [facility] ([place]) DATE CREATED AUTHOR AUTHOR'S ORGANIZ ATION 11/09/2024 [facility] DATE CREATED AUTHOR AUTHOR'S ORGANIZ ATION 03/02/2025 [facility] DATE CREATED AUTHOR AUTHOR'S ORGANIZ ATION 03/06/2025 [facility] Goals (unrecognized section and content) Goals may be documented in a n alternate section Reason for Visit (unrecogniz ed section and content) Reason Onset Date Comments Appointment Request 01/19/2025 Reason Comments Urinary Retention [facility] for f all and broken patella Reason Onset Date Comments Appointment Request 01/23/2025 Reason Comments Procedure Cysto FOR RECORDS PERTAINING TO PATIENTS WHO ARE [...] BE BASED ON THE PRIMARY CLINICAL RECORDS. [facility]. provides no warranty or guarantee of the accuracy or completeness of information in this document.
--- OUTSIDE RECORDS SUMMARY | 2025-04-09 03:24 | XMS RPT_ITS | CCD ---
Author Organization [facility] Care Team Providers Care Valve Tester Name Role Phone ARGELIA DARBY DO Primary Care Physician Dr. Madhavi Pate Admit Provider Dr. Madhavi Pate Attending Provider Dr. Madhavi Pate Other Provider Dr. Argelia Daryb Primary Care Provider Dr. De Snowden Other Provider 1([facility])[phone] Dr. Trever Viveros Attending Provider Dr. Trever Viveros Other Provider Dr. Brooks Carcamo Other Provider Dr. Natalya Wright Attending Provider Dr. Natalya Wright Other Provider Dr. Argelia Darby Referring Provider 1([facility])[phone] Dr. Kristy Andrew Attending Provider 1([facility])[phone] Vance CARE MGR, CARE MGRJeremiahC Jesus Attending Provider ARGELIA DARBY DO Primary Care Physician ([facility])[phone] ARGELIA DARBY DO Primary Care [...] Provider Dr. Kristy Andrew MD Attending Provider [phone] Dr. Kristy Andrew MD Referring Provider Dr. Orville Cortez MD Emergency Provider [phone] Gasper BURRELL, Dr. Jo Admit Provider Unavailab [...] Rick BURRELL, Dr. Montse Schmidt Other Provider Gasper BURRELL, Dr. Jo Attending Provider Myles [...] Unavailable Deperro OLS, Gene Attending Unavailable Wilner, Areglia Primary Care Unavailable Deperro OLS, Gene Attending Unavailable Wilner, Argelia Primary Care Unavailable Wilenr, Argelia Primary Care Unavailable Kendrick, Juan Diego [...] Unavailable Wilner, Argelia Primary Care Unavailable Vance CARE MGR, Jesus Referring Unavailable Vance CARE MGR, Jesus Consulting Unavailable Kamran, Kristy Attending Unavailable [...] Unavailable Nagajothi, Nagapradee Consulting Unavailabl e Wilner, Argelia Primary Care Unavailable Kendrick, Juan Diego Chi Admitting Unavailable Kendrick, Juan Diego Chi Referring Unavailable Kendrick, Juan Diego Chi Attending Unavailable Gene Muñiz Attending Unavailable Wilner, Argelia Primary Care Unavailable Nagajothi, Nagapradee Attending Unavailabl meenakshi Darby, Argelia Primary Care Unavailable Vance JEFFERSON, Jesus Attending Unavailable Vance CARE MGR, Jesus Referring Unavailable Allergies Allergy Classification Reported Allergen(s) Allergy Type Date of Onset Reaction(s) Facility (20 sources) Aspirin / Caffeine / Propoxyphene; Translations: [ASA/caffeine/pr opoxyphene] Drug Allergy Unknown [facility] (20 sources) atorvastatin; Translations: [atorvastatin] Drug Allergy 3 Unknown, myalgia [facility] (20 sources) Codeine; Translations: [codeine] Drug Allergy 3 Nausea (finding), Nausea Only [facility] (20 sources) Propoxyphene; Translations: [propoxyphene] Drug Allergy 3 Nausea Only [facility] (20 sources) Simvastatin; Translations: [simvastatin] Drug Allergy 3 myalgias, Myalgia [facility] (6 sources) Propoxyphene; Translations: [propoxyphene HCl] Drug Allergy 3 Nausea [facility] (5 sources) atorvastatin Drug Allergy 3 Unknown [facility] [employer] (5 sources) Simvastatin Allergy to substance 3 Other [facility] (1 source) atorvastatin Drug Allergy 5 [facility] (1 source) Codeine Drug Allergy 5 [facility] (1 source) Simvastatin Drug Allergy 5 [facility] Medications Current Medications Medication Drug [...] 90 tab(s), 3 Refill(s), Pharmacy: [facility] #[id number], 167.6, cm, 12/11/22 13:15:00 EDT, Height, kg, [...] please, # 90 tab(s), 1 Refill(s), Pharmacy: [facility], Hyperlipemia, mixed, 166, cm, 08/01/24 12:52:00 [...] BID, # 180 tab(s), 1 Refill(s), Pharmacy: [facility], Anxiety Sleeping difficulty, 166, cm, 10/23/23 13:09:00 EST, Height, kg, 10/23/23 13:09:00 EST, Dosing Weight Start Date: 10/23/23 Status: Ordered Calcium (3 sources) Phosphate Binder, Calcium Start: 09-04-2023 Mu-R8-Srm-Zinc-Test Deskman-M ang-[place] (Caltrate 600-D Plus Minerals) 600 mg calcium- 800 unit-40 mg tablet,chewable Active 1 {tbl} PO TWICE A DAY September 04, 2023 1:00am Start: 09-04-2023 take 1 tablet by robinson th twice daily Qw-Y2-Ekj-Mfim-Arr-Hnze-[place] (Caltrate 600-D Plus Minerals) 600 mg calcium- [...] 30 tab(s), 5 Refill(s), Pharmacy: [facility] #[id number], 167.6, cm, 12/11/22 13:15:00 EDT, Height Start Date: 12/11/22 Status: Ordered ipratropium bromide 0.021 mg/actuat metered dose nasal spray (16 sources) Anticholinergic Start: 07-02-2024 take 42 ug nasal route twice daily ipratropium 21 mcg/inh (0.03%) nasal spray 42 mcg Dose = 2 spray(s), Nostril, each, BID, # 1 EA, 1 Refill(s), Pharmacy: [facility], Allergic rhinitis, 166, cm, 06/10/24 13:00:00 EDT, Height, kg, 06/10/24 13:00:00 EDT, Dosing Weight Start Date: 07/02/24 Status: Ordered Start: 03-28-2024 take 42 ug nasal rou te twice daily ipratropium 21 mcg/inh (0.03%) nasal spray 42 mcg Dose = 2 spray(s), Nostril, each, BID, filling in lieu of pcp, # 1 EA, 0 Refill(s), Pharmacy: [facility], Allergic rhinitis, 166, cm, 03/13/24 15:36:00 [...] BID, # 1 EA, 1 Refill(s), Pharmacy: [facility], Allergic rhinitis, 166, cm, 10/23/23 [...] qPM, # 90 tab(s), 1 Refill(s), Pharmacy: [facility], Allergic rhinitis, 166, cm, 10/23/23 [...] liothyronine, # 90 tab(s), 1 Refill(s), Pharmacy: [facility], Hypothyroidism, 166, cm, 08/01/24 12:52:00 EST, [...] dosing, # 90 tab(s), 1 Refill(s), Pharmacy: [facility], Hypothyroidism, 166, cm, 10/23/23 13:09:00 [...] 90 tab(s), 1 Refill(s), Pharmacy: [facility] #[id number], Hypothyroidism, 165, cm, 07/13/23 14:08:00 EDT, Height, kg, 07/13/23 14:08:00 EDT, Dosing Weight Start Date: 07/13/23 Status: Ordered Start: 10-03-2022 levothyroxine 112 mcg (0.112 mg) oral tablet Dose : 112 mcg = 1 tab(s), Oral, qDay, # 90 tab(s), 1 Refill(s), Pharmacy: [facility] #[id number], Hypothyroidism, 166, cm, 12/26/22 10:59:00 EDT, Height, [...] dose, # 90 tab(s), 1 Refill(s), Pharmacy: [address], Hypothyroidism, 165, cm, 10/05/21 14:59:00 EST, Height, kg, 10/05/21 14:59:00 EST, Dosing Weight Start Date: 10/06/21 Status: Ordered Start: 03-14-2021 levothyroxine 100 mcg (0.1 mg) oral tablet Dose : 100 mcg = 1 tab(s), Oral, qDay, Increased dose, # 90 tab(s), 1 Refill(s), Pharmacy: [address], Hypothyroidism, 166, cm, 03/14/21 8:36:00 EDT, [...] levothyroxine, # 90 tab(s), 1 Refill(s), Pharmacy: [facility], Hypothyroidism, 166, cm, 08/01/24 12:52:00 EST, [...] dizziness, # 90 tab(s), 1 Refill(s), Pharmacy: [facility], Vertigo Dizziness, 166, cm, 08/01/24 12:52:00 [...] 60 tab(s), 3 Refill(s), Pharmacy: [facility] #[id number], 167.6, cm, 12/11/22 13:15:00 EDT, Height Start [...] 11, 2024 take 1 capsule by mo [facility] every four hours as needed for [...] qDay, # 30 tab(s), 5 Refill(s), Pharmacy: [facility], Hypokalemia, 166, cm, 08/21/23 13:31:00 [...] qDay, # 30 tab(s), 2 Refill(s), Pharmacy: [facility], Recurrent major depression, 166, cm, 01/30/24 13:48:00 EDT, Height, kg, 01/30/24 13:31:00 EDT, Dosing Weight Start Date: 01/30/24 Status: Ordered Start: 09-07-2023 sertraline 100 mg oral tablet Dose : 100 mg = 1 tab(s), Oral, qDay, Increased dose, # 30 tab(s), 2 Refill(s), Pharmacy: [facility], Recurrent major depression, 166, cm, [...] 90 tab(s), 3 Refill(s), Pharmacy: [facility] #[id number], Depression, 166, cm, 12/26/22 10:59:00 EDT, Height, kg, 12/26/22 10:59:00 EDT, Dosing Weight Start Date: 12/26/22 Status: Ordered Start: 04-05-2022 sertraline 100 mg oral tablet Dose : 100 mg = 1 tab(s), Oral, qDay, # 90 tab(s), 3 Refill(s), Pharmacy: [facility] [place] [address], Situational depression Panic disorder, 167, cm, 04/05/22 11:19:00 EDT, Height, kg, 04/05/22 11:19:00 EDT, Dosing Weight Start Date: 04/05/22 Status: Ordered Start: 03-14-2021 sertraline 100 mg oral tablet Dose : 100 mg = 1 tab(s), Oral, qDay, # 90 tab(s), 3 Refill(s), Pharmacy: [facility], Situational depression Panic disorder, 166, cm, [...] qHS, # 90 tab(s), 1 Refill(s), [facility][id number], Hyperlipemia, mixed, 166, cm, 07/11/22 11:26:00 EDT, [...] Saturdays, # 120 tab(s), 1 Refill(s), Pharmacy: [facility] #[id number], Hyponatremia, 166, cm, 12/26/22 10:59:00 EDT, Height, [...] qDay, # 90 tab(s), 3 Refill(s), [facility], 165.5, cm, 12/06/21 8:32:00 EDT, Height, kg, 12/06/21 8:32:00 EDT, Dosing Weight Start Date: 12/28/21 Status: Ordered Start: 03-16-2021 amLODIPine 5 m g oral tablet Dose : 5 mg = 1 tab(s), Oral, qDay, # 90 tab(s), 3 Refill(s), [facility] [facility], 166, cm, 03/16/21 10:55:00 EDT, [...] qDay, # 90 tab(s), 3 Refill(s), Pharmacy: [facility] #[id number], 167.6, cm, 12/11/22 13:15:00 EDT, Height, kg, 12/11/22 13:15:00 EDT, Dosing Weight Start Date: 12/11/22 Status: Ordered Start: 01-10-2022 hydroCHLOROthi azide 25 mg oral tablet Dose : 25 mg = 1 tab(s), Oral, qDay, # 90 tab(s), 3 Refill(s), [facility] 165.5, cm, 12/06/21 8:32:00 EDT, Height Start Date: 01/10/22 Status: Ordered Start: 06-21-2021 hydroCHLOROthi azide 50 mg oral tablet Dose : 25 mg = 0.5 tab(s), Oral, qDay, # 30 tab(s), 3 Refill(s), Pharmacy: [facility] 167.7, cm, 06/21/21 14:51:00 [...] food/milk, # 90 tab(s), 1 Refill(s), Pharmacy: [facility] #[id number], Bilateral shoulder pain Right knee pain, 166, cm, 07/11/22 11:26:00 EDT, Height, kg, 07/11/22 11:26:00 EDT, Dosing Weight Start Date: 07/11/22 Status: Ordered Start: 04-05-2022 meloxicam 15 m g oral tablet Dose : 15 mg = 1 tab(s), Oral, qDay, Take with food/milk, # 90 tab(s), 1 Refill(s), [facility] [address] [facility] Bilateral shoulder pain Right knee pain, 167, cm, 04/05/22 11:19:00 EDT, Height, kg, 04/05/22 11:19:00 EDT, Dosing Weight Start Date: 04/05/22 Status: Ordered Start: 12-06-2021 meloxicam 15 m g oral tablet Dose : 15 mg = 1 tab(s), Oral, qDay, Take with food/milk, # 30 tab(s), 1 Refill(s), Pharmacy: [facility] [address] Bilateral shoulder pain Right [...] qDay, # 90 tab(s), 3 Refill(s), Pharmacy: [facility] #[id number], 167.6, cm, 12/11/22 13:15:00 EDT, Height, kg, 12/11/22 13:15:00 EDT, Dosing Weight Start Date: 12/11/22 Status: Ordered Start: 03-01-2022 olmesartan 40 mg oral tablet Dose : 40 mg = 1 tab(s), Oral, qDay, # 90 tab(s), 3 Refill(s), Pharmacy: [facility] 165.5, cm, 03/01/22 13:04:00 EDT, Height, kg, 03/01/22 13:04:00 EDT, Dosing Weight Start Date: 03/01/22 Status: Ordered Start: 12-09-2021 olmesartan 40 mg oral tablet Dose : 40 mg = 1 tab(s), Oral, qDay, # 30 tab(s), 5 Refill(s), Pharmacy: [facility] 165.5, cm, 12/06/21 8:32:00 [...] Coronary arteriosclerosis; Translations: [Atherosclerotic heart disease of [place] coronary artery without angina pectoris] Onset: 07-15-2024 [...] current use of drug therapy; 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 Normal [facility] Urine Cultureon 02-20-2025 URC Normal [facility] Comment on above: Performed By: #### M 100.2200, L400.0001 ####[facility] [address] [place], [address] CBC W/Diff, Automatedon 05- Absolute Lymph 1.14 X10 3/uL Normal 0.83-4.51 [facility] Comment on above: Order Comment: 301-1 Performed By: #### L 500.4050, L100.0100 ####[facility] [address] [place], [address] Absolute Neut 3.6 X10 3/uL Normal 2.0-7.7 [facility] Comment on above: Order Comment: 301-1 Performed By: #### L 500.4050, L100.0100 ####[facility] [address] [place], [address] Basophils/100 WBC (Bld) 0.4 % Normal 0-1 [facility] Comment on above: Order Comment: 301-1 Performed By: #### L 500.4050, L100.0100 ####[facility] [address] [place], [address] Eosinophils/100 WBC (Bld) 4.0 % Normal 0-5 [facility] Comment on above: Order Comment: 301-1 Performed By: #### L 500.4050, L100.0100 ####[facility] [address] [place], [address] Erythrocyte distribution width (RBC) [Ratio] 13.0 % Normal 11.6-14.6 [facility] Comment on above: Order Comment: 301-1 Performed By: #### L 500.4050, L100.0100 ####[facility] [address] [place], [address] Hematocrit (Bld) [Volume fraction] 34.1 % Low 37-47 [facility] Comment on above: Order Comment: 301-1 Performed By: #### L 500.4050, L100.0100 ####[facility] [address] [place], [address] Hemoglobin (Bld) [Mass/Vol] 11.2 g/dL Low 12.0-15.0 [facility] Comment on above: Order Comment: 301-1 Performed By: #### L 500.4050, L100.0100 ####[facility] [address] [place], [address] IG% 0.500 Normal 0.0-0.9 [facility] Comment on above: Order Comment: 301-1 Result Comment: IG% - Immature Granulocytes (promyelocytes, myelocytes andmetamyelocytes) > 1% indicates that a LEFT SHIFT is Present. Performed By: #### L 500.4050, L100.0100 ####[facility] [address] [place], [address] Lymphocytes/100 WBC (Bld) 20.9 % Normal 19-41 [facility] Comment on above: Order Comment: 301-1 Performed By: #### L 500.4050, L100.0100 ####[facility] [address] [place], [address] MCH (RBC) [Entitic mass] 29.5 pg Normal 27.0-32.0 [facility] Comment on above: Order Comment: 301-1 Performed By: #### L 500.4050, L100.0100 ####[facility] [address] [place], [address] MCHC (RBC) [Mass/Vol] 32.8 g/dL Normal 32-36 [facility] Comment on above: Order Comment: 301-1 Performed By: #### L 500.4050, L100.0100 ####[facility] [address] [place], [address] MCV (RBC) [Entitic vol] 89.7 fL Normal 81-99 [facility] Comment on above: Order Comment: 301-1 Performed By: #### L 500.4050, L100.0100 ####[facility] [address] [place], [address] Monocytes/100 WBC (Bld) 8.2 % Normal 0-10 [facility] Comment on above: Order Comment: 301-1 Performed By: #### L 500.4050, L100.0100 ####[facility] [address] [place], [address] Neutrophils/100 WBC (Bld) 66.0 % Normal 47-70 [facility] Comment on above: Order Comment: 301-1 Performed By: #### L 500.4050, L100.0100 ####[facility] [address] [place], [address] Nucleated RBC (Bld) [#/Vol] 0 10*3/uL Normal 0-5 [facility] Comment on above: Order Comment: 301-1 Performed By: #### L 500.4050, L100.0100 ####[facility] [address] [place], [address] Platelet mean volume (Bld) [Entitic vol] 9.6 fL Normal 6.2-12.0 [facility] Comment on above: Order Comment: 301-1 Performed By: #### L 500.4050, L100.0100 ####[facility] [address] [place], [address] Platelets (Bld) [#/Vol] 353 10*3/uL Normal 150-450 [facility] Comment on above: Order Comment: 301-1 Performed By: #### L 500.4050, L100.0100 ####[facility] [address] [place], [address] RBC (Bld) [#/Vol] 3.80 10*6/uL Low 4.2-5.4 [facility] Comment on above: Order Comment: 301-1 Performed By: #### L 500.4050, L100.0100 ####[facility] [address] [place], [address] RDW SD 43.1 fl Normal 35.1-43.9 [facility] Comment on above: Order Comment: 301-1 Performed By: #### L 500.4050, L100.0100 ####[facility] [address] [place], [address] WBC (Bld) [#/Vol] 5.5 10*3/uL Normal 4.4-11.0 [facility] Comment on above: Order Comment: 301-1 Performed By: #### L 500.4050, L100.0100 ####[facility] [address] [place], [address] Comprehensive Metabolic Prof ilon 02-18-2025 Albumin [Mass/Vol] 3.1 g/dL Low 3.4-4.8 [facility] Comment on above: Order Comment: 301-1 Performed By: #### L 500.4050, L100.0100 ####[facility] [address] [place], [address] Albumin/Globulin [Mass ratio] 1.4 {ratio} Normal 0.9-2.4 [facility] Comment on above: Order Comment: 301-1 Performed By: #### L 500.4050, L100.0100 ####[facility] [address] [place], [address] ALK PHOS 67 U/L Normal 35-104 [facility] Comment on above: Order Comment: 301-1 Performed By: #### L 500.4050, L100.0100 ####[facility] [address] [place], [address] ALT [Catalytic activity/Vol] 10 U/L Normal <=34 [facility] Comment on above: Order Comment: 301-1 Performed By: #### L 500.4050, L100.0100 ####[facility] [address] [place], [address] AST [Catalytic activity/Vol] 16 U/L Normal <=31 [facility] Comment on above: Order Comment: 301-1 Performed By: #### L 500.4050, L100.0100 ####[facility] [address] [place], [address] Bilirubin [Mass/Vol] 0.24 mg/dL Normal 0.00-1.30 [facility] Comment on above: Order Comment: 301-1 Performed By: #### L 500.4050, L100.0100 ####[facility] [address] [place], [address] BUN/CRE 37.3 RATIO High 10-20 [facility] Comment on above: Order Comment: 301-1 Performed By: #### L 500.4050, L100.0100 ####[facility] [address] [place], [address] Calcium [Mass/Vol] 8.7 mg/dL Normal 7.6-11.0 [facility] Comment on above: Order Comment: 301-1 Performed By: #### L 500.4050, L100.0100 ####[facility] [address] [place], [address] Chloride [Moles/Vol] 101 mmol/L Normal 98-108 [facility] Comment on above: Order Comment: 301-1 Performed By: #### L 500.4050, L100.0100 ####[facility] [address] [place], [address] CO2 [Moles/Vol] 21.9 mmol/L Normal 21.0-32.0 [facility] Comment on above: Order Comment: 301-1 Performed By: #### L 500.4050, L100.0100 ####[facility] [address] [place], [address] Creatinine [Mass/Vol] 0.58 mg/dL Low 0.70-1.20 [facility] Comment on above: Order Comment: 301-1 Performed By: #### L 500.4050, L100.0100 ####[facility] [address] [place], [address] GAP 11 Normal 5-15 [facility] Comment on above: Order Comment: 301-1 Performed By: #### L 500.4050, L100.0100 ####[facility] [address] [place], [address] GFR/1.73 sq M.predicted among non-blacks MDRD (S/P/Bld) [Vol rate/Area] 91 mL/min/{1.73_m2} Normal >60 [facility] Comment on above: Order Comment: 301-1 Result Comment: mL/m in/1.73m2 CKD-EPI Creatinine Equation (2020) Performed By: #### L 500.4050, L100.0100 ####[facility] [address] [place], [address] Globulin (S) [Mass/Vol] 2.3 g/dL Normal 2.2-4.2 [facility] Comment on above: Order Comment: 301-1 Performed By: #### L 500.4050, L100.0100 ####[facility] [address] [place], [address] Glucose [Mass/Vol] 87 mg/dL Normal 70-99 [facility] Comment on above: Order Comment: 301-1 Performed By: #### L 500.4050, L100.0100 ####[facility] [address] [place], [address] Potassium [Moles/Vol] 3.3 mmol/L Normal 3.3-5.1 [facility] Comment on above: Order Comment: 301-1 Performed By: #### L 500.4050, L100.0100 ####[facility] [address] [place], [address] Sodium [Moles/Vol] 134 mmol/L Normal 133-145 [facility] Comment on above: Order Comment: 301-1 Performed By: #### L 500.4050, L100.0100 ####[facility] [address] [place], [address] T PROT 5.4 g/dL Low 5.9-8.4 [facility] Comment on above: Order Comment: 301-1 Performed By: #### L 500.4050, L100.0100 ####[facility] [address] [place], [address] Urea nitrogen [Mass/Vol] 22 mg/dL High 4-19 [facility] Comment on above: Order Comment: 301-1 Performed By: #### L 500.4050, L100.0100 ####[facility] [address] [place], [address] Urinalysis, Completeon 02-18 EPI,SQUAMOUS 0-5 SEEN Normal 5-10 [facility] Comment on above: Order Comment: 301-1 CLEAN CATCH Performed By: #### M 100.2200, L400.0001 ####[facility] [address] [place], [address] RBC 5-10 SEEN Normal 0-5 [facility] Comment on above: Order Comment: 301-1 CLEAN CATCH Performed By: #### M 100.2200, L400.0001 ####[facility] [address] [place], [address] WBC 5-10 SEEN Normal 0-5 [facility] Comment on above: Order Comment: 301-1 CLEAN CATCH Performed By: #### M 100.2200, L400.0001 ####[facility] [address] [place], [address] BACTERIA 3+ /hpf Normal None Seen [facility] Comment on above: Order Comment: 301-1 CLEAN CATCH Performed By: #### M 100.2200, L400.0001 ####[facility] [address] [place], [address] TRIPLE PHOS 1+ /hpf Normal [facility] Comment on above: Order Comment: 301-1 CLEAN CATCH Performed By: #### M 100.2200, L400.0001 ####[facility] [address] [place], [address] Mucus Ql (Urine sed) 0 SEEN Normal [facility] Comment on above: Order Comment: 301-1 CLEAN CATCH Performed By: #### M 100.2200, L400.0001 ####[facility] [address] [place], [address] Basic Metabolic Profile (BMP )on 02-09-2025 BUN/CRE 17.0 RATIO Normal 10-20 [facility] Comment on above: Order Comment: 301-1 Performed By: #### L 500.2500 ####[facility] [address] [place], [address] Calcium [Mass/Vol] 9.2 mg/dL Normal 7.6-11.0 [facility] Comment on above: Order Comment: 301-1 Performed By: #### L 500.2500 ####[facility] [address] [place], [address] Chloride [Moles/Vol] 100 mmol/L Normal 98-108 [facility] Comment on above: Order Comment: 301-1 Performed By: #### L 500.2500 ####[facility] [address] [place], [address] CO2 [Moles/Vol] 22.4 mmol/L Normal 21.0-32.0 [facility] Comment on above: Order Comment: 301-1 Performed By: #### L 500.2500 ####[facility] [address] [place], [address] Creatinine [Mass/Vol] 0.59 mg/dL Low 0.70-1.20 [facility] Comment on above: Order Comment: 301-1 Performed By: #### L 500.2500 ####[facility] [address] [place] [place], [address] GAP 11 Normal 5-15 [facility] Comment on above: Order Comment: 301-1 Performed By: #### L 500.2500 ####[facility] [address] [place], [address] GFR/1.73 sq M.predicted among non-blacks MDRD (S/P/Bld) [Vol rate/Area] 91 mL/min/{1.73_m2} Normal >60 [facility] Comment on above: Order Comment: 301-1 Result Comment: mL/m in/1.73m2 CKD-EPI Creatinine Equation (2020) Performed By: #### L 500.2500 ####[facility] [address] [place], [address] Glucose [Mass/Vol] 91 mg/dL Normal 70-99 [facility] Comment on above: Order Comment: 301-1 Performed By: #### L 500.2500 ####[facility] [address] [place], [address] Potassium [Moles/Vol] 3.8 mmol/L Normal 3.3-5.1 [facility] Comment on above: Order Comment: 301-1 Performed By: #### L 500.2500 ####[facility] [address] [place], [address] Sodium [Moles/Vol] 133 mmol/L Normal 133-145 [facility] Comment on above: Order Comment: 301-1 Performed By: #### L 500.2500 ####[facility] [address] [place], [address] Urea nitrogen [Mass/Vol] 10 mg/dL Normal 4-19 [facility] Comment on above: Order Comment: 301-1 Performed By: #### L 500.2500 ####[facility] [address] [place], [address] CBC-Complete Blood Cnt No Di ffon 02-06-2025 Erythrocyte distribution width (RBC) [Ratio] 13.0 % Normal 11.6-14.6 [facility] Comment on above: Order Comment: . Performed By: #### L 500.4050, L100.0500 ####[facility] [address] [place], [address] Hematocrit (Bld) [Volume fraction] 36.4 % Low 37-47 [facility] Comment on above: Order Comment: .1 Performed By: #### L 500.4050, L100.0500 ####[facility] [address] [place], [address] Hemoglobin (Bld) [Mass/Vol] 12.3 g/dL Normal 12.0-15.0 [facility] Comment on above: Order Comment: .1 Performed By: #### L 500.4050, L100.0500 ####[facility] [address] [place], [address] MCH (RBC) [Entitic mass] 30.1 pg Normal 27.0-32.0 [facility] Comment on above: Order Comment: . Performed By: #### L 500.4050, L100.0500 ####[facility] [address] [place], [address] MCHC (RBC) [Mass/Vol] 33.8 g/dL Normal 32-36 [facility] Comment on above: Order Comment: . Performed By: #### L 500.4050, L100.0500 ####[facility] [address] [place], [address] MCV (RBC) [Entitic vol] 89.0 fL Normal 81-99 [facility] Comment on above: Order Comment: .1 Performed By: #### L 500.4050, L100.0500 ####[facility] [address] [place], [address] Platelet mean volume (Bld) [Entitic vol] 9.4 fL Normal 6.2-12.0 [facility] Comment on above: Order Comment: .1 Performed By: #### L 500.4050, L100.0500 ####[facility] [address] [place], [address] Platelets (Bld) [#/Vol] 279 10*3/uL Normal 150-450 [facility] Comment on above: Order Comment: . Performed By: #### L 500.4050, L100.0500 ####[facility] [address] [place], [address] RBC (Bld) [#/Vol] 4.09 10*6/uL Low 4.2-5.4 [facility] Comment on above: Order Comment: . Performed By: #### L 500.4050, L100.0500 ####[facility] [address] [place], [address] RDW SD 42.4 fl Normal 35.1-43.9 [facility] Comment on above: Order Comment: . Performed By: #### L 500.4050, L100.0500 ####[facility] [address] [place], [address] WBC (Bld) [#/Vol] 4.8 10*3/uL Normal 4.4-11.0 [facility] Comment on above: Order Comment: . Performed By: #### L 500.4050, L100.0500 ####[facility] [address] [place], [address] [facility] 02-06-2025 Albumin [Mass/Vol] 3.7 g/dL Normal 3.4-4.8 [facility] Comment on above: Order Comment: . Performed By: #### L 500.4050, L100.0500 ####[facility] [address] [place], [address] Albumin/Globulin [Mass ratio] 1.4 {ratio} Normal 0.9-2.4 [facility] Comment on above: Order Comment: . Performed By: #### L 500.4050, L100.0500 ####[facility] [address] [place], [address] ALK PHOS 78 U/L Normal 35-104 [facility] Comment on above: Order Comment: . Performed By: #### L 500.4050, L100.0500 ####[facility] [address] [place], [address] ALT [Catalytic activity/Vol] 14 U/L Normal <=34 [facility] Comment on above: Order Comment: .1 Performed By: #### L 500.4050, L100.0500 ####[facility] [address] [place], [address] AST [Catalytic activity/Vol] 20 U/L Normal <=31 [facility] Comment on above: Order Comment: . Performed By: #### L 500.4050, L100.0500 ####[facility] [address] [place], [address] Bilirubin [Mass/Vol] 0.32 mg/dL Normal 0.00-1.30 [facility] Comment on above: Order Comment: . Performed By: #### L 500.4050, L100.0500 ####[facility] [address] [place], [address] BUN/CRE 17.3 RATIO Normal 10-20 [facility] Comment on above: Order Comment: . Performed By: #### L 500.4050, L100.0500 ####[facility] [address] [place], [address] Calcium [Mass/Vol] 9.2 mg/dL Normal 7.6-11.0 [facility] Comment on above: Order Comment: . Performed By: #### L 500.4050, L100.0500 ####[facility] [address] [place], [address] Chloride [Moles/Vol] 96 mmol/L Low 98-108 [facility] Comment on above: Order Comment: . Performed By: #### L 500.4050, L100.0500 ####[facility] [address] [place], [address] CO2 [Moles/Vol] 21.0 mmol/L Normal 21.0-32.0 [facility] Comment on above: Order Comment: .1 Performed By: #### L 500.4050, L100.0500 ####[facility] [address] [place], [address] Creatinine [Mass/Vol] 0.66 mg/dL Low 0.70-1.20 [facility] Comment on above: Order Comment: . Performed By: #### L 500.4050, L100.0500 ####[facility] [address] [place], [address] GAP 11 Normal 5-15 [facility] Comment on above: Order Comment: . Performed By: #### L 500.4050, L100.0500 ####[facility] [address] [place], [address] GFR/1.73 sq M.predicted among non-blacks MDRD (S/P/Bld) [Vol rate/Area] 88 mL/min/{1.73_m2} Normal >60 [facility] Comment on above: Order Comment: . Result Comment: mL/m in/1.73m2 CKD-EPI Creatinine Equation (2020) Performed By: #### L 500.4050, L100.0500 ####[facility] [address] [place], [address] Globulin (S) [Mass/Vol] 2.6 g/dL Normal 2.2-4.2 [facility] Comment on above: Order Comment: . Performed By: #### L 500.4050, L100.0500 ####[facility] [address] [place], [address] Glucose [Mass/Vol] 93 mg/dL Normal 70-99 [facility] Comment on above: Order Comment: 202.1 Performed By: #### L 500.4050, L100.0500 ####[facility] [address] [place], [address] Potassium [Moles/Vol] 4.0 mmol/L Normal 3.3-5.1 [facility] Comment on above: Order Comment: 202.1 Performed By: #### L 500.4050, L100.0500 ####[facility] [address] [place], [address] Sodium [Moles/Vol] 128 mmol/L Low 133-145 [facility] Comment on above: Order Comment: 202.1 Performed By: #### L 500.4050, L100.0500 ####[facility] [address] [place], [address] T PROT 6.2 g/dL Normal 5.9-8.4 [facility] Comment on above: Order Comment: 202.1 Performed By: #### L 500.4050, L100.0500 ####[facility] [address] [place], [address] Urea nitrogen [Mass/Vol] 11 mg/dL Normal 4-19 [facility] Comment on above: Order Comment: 202.1 Performed By: #### L 500.4050, L100.0500 ####[facility] [address] [place], [address] 3601-27-2025 36 Pt scheduled for cys to with Dr. Georges on 03/02 at 9:20am. This is the earliest facility can bring the patient in for appt as Pt under mcc . Ayala aware someone has to come in with patient if transfer/ambulation help needed. Normal [facility] 36on 01-26-2025 36 Message released to patient as written. Patient's further questions if applicable: message was released to Ayala and she would like to schedule cystoscopy Were all questions from office addressed or relayed to the patient from encounter: Yes Normal [facility] Basic Metabolic Profile (BMP )on 01-26-2025 BUN/CRE 18.0 RATIO Normal 10-20 [facility] Comment on above: Order Comment: .1 Performed By: #### L 100.0500, L500.2500 ####[facility] [address] [place], [address] Calcium [Mass/Vol] 9.1 mg/dL Normal 7.6-11.0 [facility] Comment on above: Order Comment: . Performed By: #### L 100.0500, L500.2500 ####[facility] [address] [place], [address] Chloride [Moles/Vol] 102 mmol/L Normal 98-108 [facility] Comment on above: Order Comment: . Performed By: #### L 100.0500, L500.2500 ####[facility] [address] [place], [address] CO2 [Moles/Vol] 22.0 mmol/L Normal 21.0-32.0 [facility] Comment on above: Order Comment: . Performed By: #### L 100.0500, L500.2500 ####[facility] [address] [place], [address] Creatinine [Mass/Vol] 0.63 mg/dL Low 0.70-1.20 [facility] Comment on above: Order Comment: .1 Performed By: #### L 100.0500, L500.2500 ####[facility] [address] [place], [address] GAP 11 Normal 5-15 [facility] Comment on above: Order Comment: .1 Performed By: #### L 100.0500, L500.2500 ####[facility] [address] [place], [address] GFR/1.73 sq M.predicted among non-blacks MDRD (S/P/Bld) [Vol rate/Area] 89 mL/min/{1.73_m2} Normal >60 [facility] Comment on above: Order Comment: . Result Comment: mL/m in/1.73m2 CKD-EPI Creatinine Equation (2020) Performed By: #### L 100.0500, L500.2500 ####[facility] [address] [place], [address] Glucose [Mass/Vol] 102 mg/dL High 70-99 [facility] Comment on above: Order Comment: . Performed By: #### L 100.0500, L500.2500 ####[facility] [address] [place], [address] Potassium [Moles/Vol] 4.0 mmol/L Normal 3.3-5.1 [facility] Comment on above: Order Comment: . Performed By: #### L 100.0500, L500.2500 ####[facility] [address] [place], [address] Sodium [Moles/Vol] 134 mmol/L Normal 133-145 [facility] Comment on above: Order Comment: . Performed By: #### L 100.0500, L500.2500 ####[facility] [address] [place], [address] Urea nitrogen [Mass/Vol] 11 mg/dL Normal 4-19 [facility] Comment on above: Order Comment: . Performed By: #### L 100.0500, L500.2500 ####[facility] [address] [place], [address] CBC-Complete Blood Cnt No Di ffon 05-05-2025 Erythrocyte distribution width (RBC) [Ratio] 12.9 % Normal 11.6-14.6 [facility] Comment on above: Order Comment: . Performed By: #### L 100.0500, L500.2500 ####[facility] [address] [place], [address] Hematocrit (Bld) [Volume fraction] 37.3 % Normal 37-47 [facility] Comment on above: Order Comment: . Performed By: #### L 100.0500, L500.2500 ####[facility] [address] [place], [address] Hemoglobin (Bld) [Mass/Vol] 12.3 g/dL Normal 12.0-15.0 [facility] Comment on above: Order Comment: . Performed By: #### L 100.0500, L500.2500 ####[facility] [address] [place], [address] MCH (RBC) [Entitic mass] 29.6 pg Normal 27.0-32.0 [facility] Comment on above: Order Comment: . Performed By: #### L 100.0500, L500.2500 ####[facility] [address] [place] [place], [address] MCHC (RBC) [Mass/Vol] 33.0 g/dL Normal 32-36 [facility] Comment on above: Order Comment: . Performed By: #### L 100.0500, L500.2500 ####[facility] [address] [place], [address] MCV (RBC) [Entitic vol] 89.9 fL Normal 81-99 [facility] Comment on above: Order Comment: . Performed By: #### L 100.0500, L500.2500 ####[facility] [address] [place], [address] Platelet mean volume (Bld) [Entitic vol] 9.8 fL Normal 6.2-12.0 [facility] Comment on above: Order Comment: 202.1 Performed By: #### L 100.0500, L500.2500 ####[facility] [address] [place], [address] Platelets (Bld) [#/Vol] 295 10*3/uL Normal 150-450 [facility] Comment on above: Order Comment: 202.1 Performed By: #### L 100.0500, L500.2500 ####[facility] [address] [place], [address] RBC (Bld) [#/Vol] 4.15 10*6/uL Low 4.2-5.4 [facility] Comment on above: Order Comment: 202.1 Performed By: #### L 100.0500, L500.2500 ####[facility] [address] [place], [address] RDW SD 42.5 fl Normal 35.1-43.9 [facility] Comment on above: Order Comment: 202.1 Performed By: #### L 100.0500, L500.2500 ####[facility] [address] [place], [address] WBC (Bld) [#/Vol] 5.9 10*3/uL Normal 4.4-11.0 [facility] Comment on above: Order Comment: 202.1 Performed By: #### L 100.0500, L500.2500 ####[facility] [address] [place], [address] Urine Cultureon 01-24-2025 URC Normal [facility] Comment on above: Performed By: #### M 100.2200, L400.0001 ####[facility] [address] [place], [address] 36on 01-23-2025 36 Keep richter and needs follow up for cystoscopy in the next couple of weeks. Normal [facility] 36 Ayala with [facility] left a VM in regards to [...] is something still performed and recommended. Normal [facility] Protein+Creatinine Ratio,Uri neon 01-23-2025 PROT:CRE RATIO 202 mg/g CRE High 0-200 [facility] Comment on above: Performed By: #### L 501.0900, L500.2500 ####[facility] [address] [place], [address] Protein (U) [Mass/Vol] 19.3 mg/dL High 0.0-12.0 [facility] Comment on above: Performed By: #### L 501.0900, L500.2500 ####[facility] [address] [place], [address] UR CREAT 95.40 mg/dL Normal 28.00-217.0 0 [facility] Comment on above: Performed By: #### L 501.0900, L500.2500 ####[facility] [address] [place], [address] Basic Metabolic Profile (BMP )on 01-22-2025 BUN/CRE 26.3 RATIO High 10-20 [facility] Comment on above: Order Comment: Performed By: #### L 501.0900, L500.2500 ####[facility] [address] [place], [address] Calcium [Mass/Vol] 9.0 mg/dL Normal 7.6-11.0 [facility] Comment on above: Order Comment: Performed By: #### L 501.0900, L500.2500 ####[facility] [address] [place], [address] Chloride [Moles/Vol] 100 mmol/L Normal 98-108 [facility] Comment on above: Order Comment: Performed By: #### L 501.0900, L500.2500 ####[facility] [address] [place], [address] CO2 [Moles/Vol] 22.2 mmol/L Normal 21.0-32.0 [facility] Comment on above: Order Comment: Performed By: #### L 501.0900, L500.2500 ####[facility] [address] [place], [address] Creatinine [Mass/Vol] 0.67 mg/dL Low 0.70-1.20 [facility] Comment on above: Order Comment: Performed By: #### L 501.0900, L500.2500 ####[facility] [address] [place], [address] GAP 10 Normal 5-15 [facility] Comment on above: Order Comment: Performed By: #### L 501.0900, L500.2500 ####[facility] [address] [place], [address] GFR/1.73 sq M.predicted among non-blacks MDRD (S/P/Bld) [Vol rate/Area] 88 mL/min/{1.73_m2} Normal >60 [facility] Comment on above: Order Comment: Result Comment: mL/m in/1.73m2 CKD-EPI Creatinine Equation (2020) Performed By: #### L 501.0900, L500.2500 ####[facility] [address] [place], [address] Glucose [Mass/Vol] 102 mg/dL High 70-99 [facility] Comment on above: Order Comment: Performed By: #### L 501.0900, L500.2500 ####[facility] [address] [place], [address] Potassium [Moles/Vol] 4.3 mmol/L Normal 3.3-5.1 [facility] Comment on above: Order Comment: Performed By: #### L 501.0900, L500.2500 ####[facility] [address] [place], [address] Sodium [Moles/Vol] 132 mmol/L Low 133-145 [facility] Comment on above: Order Comment: Performed By: #### L 501.0900, L500.2500 ####[facility] [address] [place], [address] Urea nitrogen [Mass/Vol] 18 mg/dL Normal 4-19 [facility] Comment on above: Order Comment: Performed By: #### L 501.0900, L500.2500 ####[facility] [address] [place], [address] Office Visiton 01-22-2025 Follow-up visit [id number] Americo Lewis 1945 F Date Provider Department Center 01/22/2025 ROSITA FLOYD [facility] URO None No family history on file Level of Service:13842 DE OFFICE/OUTPATIENT NEW MODERATE MDM 45 MINUTES Reason for Visit and Comments: Urinary Retention [669110] - [place] Hospitalized for fall and broken patella Normal [facility] Progress Noteon 01-22-2025 Progress Note Pt presents for Voiding Trial Instilled 250CC Sterile Water into Urinary Bladder Removed 16Fr catheter after deflating 10cc balloon Pt was able to void 100 cc immediately Normal [facility] Progress Note . Urology Office Visit [facility] [address], [address] [place] [address] Visit type: New Patient Reason for Visit: [...] for follow up after hospital admission at [facility] after falling and injuring her left knee. [...] There are no discontinued medications. Rosita Resendiz, [employer] 01/22/2025 12:36 PM Normal [facility] Urinalysis, Completeon 01-22 AMORPHOUS 1+ Normal [facility] Comment on above: Order Comment: TREVOR TER SPECIMEN Performed By: #### M 100.2200, L400.0001 ####[facility] [address] [facility] [place], [address] WBC 0-5 SEEN Normal 0-5 [facility] Comment on above: Order Comment: TREVOR TER SPECIMEN Performed By: #### M 100.2200, L400.0001 ####[facility] [address] [place], [address] BACTERIA 0 SEEN Normal None Seen [facility] Comment on above: Order Comment: TREVOR TER SPECIMEN Performed By: #### M 100.2200, L400.0001 ####[facility] [address] [place], [address] EPI,SQUAMOUS 0 SEEN Normal 5-10 [facility] Comment on above: Order Comment: TREVOR TER SPECIMEN Performed By: #### M 100.2200, L400.0001 ####[facility] [address] [place], [address] Mucus Ql (Urine sed) 0 SEEN Normal [facility] Comment on above: Order Comment: TREVOR TER SPECIMEN Performed By: #### M 100.2200, L400.0001 ####[facility] [address] [place], [address] RBC 0 SEEN Normal 0-5 [facility] Comment on above: Order Comment: TREVOR TER SPECIMEN Performed By: #### M 100.2200, L400.0001 ####[facility] [address] [place], [address] 12 Lead EKGon 01-19-2025 12 Lead EKG Normal [facility] 36on 01-19-2025 36 Returned the call to [facility]. Spoke with nurse Vita. Will send fax documents of pt history and discharge information from [facility]. Scheduled new patient appt 01/22/25 10:00 AM w/Rosita for *hosp follow up [facility]/urinary retention/richter removal/voiding trial* Per Vita the patient failed one [place] while in hospital unclear of date possibly 01/13/25. [facility] 36 Name of Caller: Obi Contact Reason for Appointment: Obi called in to get patient established for urinary retention and not being able to remove richter. Please be advised Office Name: [facility] Basic Metabolic Profile (BMP )on 01-19-2025 BUN/CRE 29.9 RATIO High 10-20 [facility] Comment on above: Order Comment: .1 Performed By: #### L 500.2500, L100.0500 ####[facility] [address] [place], [address] Calcium [Mass/Vol] 9.1 mg/dL Normal 7.6-11.0 [facility] Comment on above: Order Comment: 202.1 Performed By: #### L 500.2500, L100.0500 ####[facility] [address] [place], [address] Chloride [Moles/Vol] 103 mmol/L Normal 98-108 [facility] Comment on above: Order Comment: .1 Performed By: #### L 500.2500, L100.0500 ####[facility] [address] [place], [address] CO2 [Moles/Vol] 22.7 mmol/L Normal 21.0-32.0 [facility] Comment on above: Order Comment: .1 Performed By: #### L 500.2500, L100.0500 ####[facility] [address] [place], [address] Creatinine [Mass/Vol] 0.65 mg/dL Low 0.70-1.20 [facility] Comment on above: Order Comment: . Performed By: #### L 500.2500, L100.0500 ####[facility] [address] [place], [address] GAP 11 Normal 5-15 [facility] Comment on above: Order Comment: . Performed By: #### L 500.2500, L100.0500 ####[facility] [address] [place], [address] GFR/1.73 sq M.predicted among non-blacks MDRD (S/P/Bld) [Vol rate/Area] 88 mL/min/{1.73_m2} Normal >60 [facility] Comment on above: Order Comment: . Result Comment: mL/m in/1.73m2 CKD-EPI Creatinine Equation (2020) Performed By: #### L 500.2500, L100.0500 ####[facility] [address] [place], [address] Glucose [Mass/Vol] 97 mg/dL Normal 70-99 [facility] Comment on above: Order Comment: .1 Performed By: #### L 500.2500, L100.0500 ####[facility] [address] [place], [address] Potassium [Moles/Vol] 3.9 mmol/L Normal 3.3-5.1 [facility] Comment on above: Order Comment: . Performed By: #### L 500.2500, L100.0500 ####[facility] [address] [place], [address] Sodium [Moles/Vol] 136 mmol/L Normal 133-145 [facility] Comment on above: Order Comment: . Performed By: #### L 500.2500, L100.0500 ####[facility] [address] [place], [address] Urea nitrogen [Mass/Vol] 20 mg/dL High 4-19 [facility] Comment on above: Order Comment: . Performed By: #### L 500.2500, L100.0500 ####[facility] [address] [place], [address] CBC-Complete Blood Cnt No Di ffon 01-19-2025 Erythrocyte distribution width (RBC) [Ratio] 13.3 % Normal 11.6-14.6 [facility] [facility] Comment on above: Order Comment: . Performed By: #### L 500.2500, L100.0500 ####[facility] [address] [place], [address] Hematocrit (Bld) [Volume fraction] 35.6 % Low 37-47 [facility] Comment on above: Order Comment: . Performed By: #### L 500.2500, L100.0500 ####[facility] [address] [place], [address] Hemoglobin (Bld) [Mass/Vol] 11.7 g/dL Low 12.0-15.0 [facility] Comment on above: Order Comment: .1 Performed By: #### L 500.2500, L100.0500 ####[facility] [address] [place], [address] MCH (RBC) [Entitic mass] 29.8 pg Normal 27.0-32.0 [facility] Comment on above: Order Comment: .1 Performed By: #### L 500.2500, L100.0500 ####[facility] [address] [place], [address] MCHC (RBC) [Mass/Vol] 32.9 g/dL Normal 32-36 [facility] Comment on above: Order Comment: .1 Performed By: #### L 500.2500, L100.0500 ####[facility] [address] [place], [address] MCV (RBC) [Entitic vol] 90.8 fL Normal 81-99 [facility] Comment on above: Order Comment: .1 Performed By: #### L 500.2500, L100.0500 ####[facility] [address] [place], [address] Platelet mean volume (Bld) [Entitic vol] 9.7 fL Normal 6.2-12.0 [facility] Comment on above: Order Comment: .1 Performed By: #### L 500.2500, L100.0500 ####[facility] [address] [place], [address] Platelets (Bld) [#/Vol] 318 10*3/uL Normal 150-450 [facility] Comment on above: Order Comment: .1 Performed By: #### L 500.2500, L100.0500 ####[facility] [address] [place], [address] RBC (Bld) [#/Vol] 3.92 10*6/uL Low 4.2-5.4 [facility] Comment on above: Order Comment: 202.1 Performed By: #### L 500.2500, L100.0500 ####[facility] [address] [place], [address] RDW SD 44.8 fl High 35.1-43.9 [facility] Comment on above: Order Comment: . Performed By: #### L 500.2500, L100.0500 ####[facility] [address] [place], [address] WBC (Bld) [#/Vol] 6.5 10*3/uL Normal 4.4-11.0 [facility] Comment on above: Order Comment: . Performed By: #### L 500.2500, L100.0500 ####[facility] [address] [place], [address] Basic Metabolic Profile (BMP )on 01-16-2025 BUN Normal 4-19 [facility] Comment on above: Result Comment: Canc elled via OM: Order cancelled - Patient discharged Performed By: #### L 500.2500, L100.0100 ####[facility] [address] [place], [address] BUN/CRE Normal 10-20 [facility] Comment on above: Result Comment: Canc elled via OM: Order cancelled - Patient discharged Performed By: #### L 500.2500, L100.0100 ####[facility] [address] [place], [address] Calcium Normal 7.6-11.0 [facility] Comment on above: Result Comment: Canc elled via OM: Order cancelled - Patient discharged Performed By: #### L 500.2500, L100.0100 ####[facility] [address] [place], [address] CL Normal 98-108 [facility] Comment on above: Result Comment: Canc elled via OM: Order cancelled - Patient discharged Performed By: #### L 500.2500, L100.0100 ####[facility] [address] [place], [address] CO2 Normal 21.0-32.0 [facility] Comment on above: Result Comment: Canc elled via OM: Order cancelled - Patient discharged Performed By: #### L 500.2500, L100.0100 ####[facility] [address] [place], [address] CREAT,SERUM Normal 0.70-1.20 [facility] Comment on above: Result Comment: Canc elled via OM: Order cancelled - Patient discharged Performed By: #### L 500.2500, L100.0100 ####[facility] [address] [place], [address] eGFR Normal >60 [facility] Comment on above: Result Comment: Canc elled via OM: Order cancelled - Patient discharged Performed By: #### L 500.2500, L100.0100 ####[facility] [address] [place], [address] GAP Normal 5-15 [facility] Comment on above: Result Comment: Canc elled via OM: Order cancelled - Patient discharged Performed By: #### L 500.2500, L100.0100 ####[facility] [address] [place], [address] GLU Normal 70-99 [facility] Comment on above: Result Comment: Canc elled via OM: Order cancelled - Patient discharged Performed By: #### L 500.2500, L100.0100 ####[facility] [address] [place], [address] Potassium Normal 3.3-5.1 [facility] Comment on above: Result Comment: Canc elled via OM: Order cancelled - Patient discharged Performed By: #### L 500.2500, L100.0100 ####[facility] [address] [place], [address] Basic Metabolic Profile (BMP) Normal 133-145 [facility] Comment on above: Result Comment: Canc elled via OM: Order cancelled - Patient discharged Performed By: #### L 500.2500, L100.0100 ####[facility] [address] [place], [address] CBC W/Diff, Automatedon 04-2 Absolute Neut Normal 2.0-7.7 [facility] Comment on above: Result Comment: Canc elled via OM: Order cancelled - Patient discharged Performed By: #### L 500.2500, L100.0100 ####[facility] [address] [place], [address] HCT Normal 37-47 [facility] Comment on above: Result Comment: Canc elled via OM: Order cancelled - Patient discharged Performed By: #### L 500.2500, L100.0100 ####[facility] [address] [place], [address] HGB Normal 12.0-15.0 [facility] Comment on above: Result Comment: Canc elled via OM: Order cancelled - Patient discharged Performed By: #### L 500.2500, L100.0100 ####[facility] [address] [place], [address] MCH Normal 27.0-32.0 [facility] Comment on above: Result Comment: Canc elled via OM: Order cancelled - Patient discharged Performed By: #### L 500.2500, L100.0100 ####[facility] [address] [place], [address] MCHC Normal 32-36 [facility] Comment on above: Result Comment: Canc elled via OM: Order cancelled - Patient discharged Performed By: #### L 500.2500, L100.0100 ####[facility] [address] [place], [address] MCV Normal 81-99 [facility] Comment on above: Result Comment: Canc elled via OM: Order cancelled - Patient discharged Performed By: #### L 500.2500, L100.0100 ####[facility] [address] [place], [address] NEUT% Normal 47-70 [facility] Comment on above: Result Comment: Canc elled via OM: Order cancelled - Patient discharged Performed By: #### L 500.2500, L100.0100 ####[facility] [address] [place], [address] PLT Normal 150-450 [facility] Comment on above: Result Comment: Canc elled via OM: Order cancelled - Patient discharged Performed By: #### L 500.2500, L100.0100 ####[facility] [address] [place], [address] RBC Normal 4.2-5.4 [facility] Comment on above: Result Comment: Canc elled via OM: Order cancelled - Patient discharged Performed By: #### L 500.2500, L100.0100 ####[facility] [address] [place], [address] RDW CV Normal 11.6-14.6 [facility] Comment on above: Result Comment: Canc elled via OM: Order cancelled - Patient discharged Performed By: #### L 500.2500, L100.0100 ####[facility] [address] [place], [address] RDW SD Normal 35.1-43.9 [facility] Comment on above: Result Comment: Canc elled via OM: Order cancelled - Patient discharged Performed By: #### L 500.2500, L100.0100 ####[facility] [address] [place], [address] WBC Normal 4.4-11.0 [facility] Comment on above: Result Comment: Canc elled via OM: Order cancelled - Patient discharged Performed By: #### L 500.2500, L100.0100 ####[facility] [address] [place], [address] Basic Metabolic Profile (BMP )on 01-11-2025 BUN/CRE 24.5 RATIO High 07-13 [facility] Comment on above: Performed By: #### L 500.2500, L100.0100 ####[facility] [address] [place], [address] Calcium [Mass/Vol] 9.3 mg/dL Normal 7.6-11.0 [facility] Comment on above: Performed By: #### L 500.2500, L100.0100 ####[facility] [address] [place], [address] Chloride [Moles/Vol] 104 mmol/L Normal 98-108 [facility] Comment on above: Performed By: #### L 500.2500, L100.0100 ####[facility] [address] [place], [address] CO2 [Moles/Vol] 26.4 mmol/L Normal 21.0-32.0 [facility] Comment on above: Performed By: #### L 500.2500, L100.0100 ####[facility] [address] [place], [address] Creatinine [Mass/Vol] 0.62 mg/dL Low 0.70-1.20 [facility] Comment on above: Performed By: #### L 500.2500, L100.0100 ####[facility] [address] [place], [address] ECRCL 58.45 ml/min Normal 50-250 [facility] Comment on above: Performed By: #### L 500.2500, L100.0100 ####[facility] [address] [place], [address] GAP 10 Normal 5-15 [facility] Comment on above: Performed By: #### L 500.2500, L100.0100 ####[facility] [address] [place], [address] GFR/1.73 sq M.predicted among non-blacks MDRD (S/P/Bld) [Vol rate/Area] 89 mL/min/{1.73_m2} Normal >60 [facility] Comment on above: Result Comment: mL/m in/1.73m2 CKD-EPI Creatinine Equation (2020) Performed By: #### L 500.2500, L100.0100 ####[facility] [address] [place], [address] Glucose [Mass/Vol] 93 mg/dL Normal 70-99 [facility] Comment on above: Performed By: #### L 500.2500, L100.0100 ####[facility] [address] [place], [address] Potassium [Moles/Vol] 4.0 mmol/L Normal 3.3-5.1 [facility] Comment on above: Performed By: #### L 500.2500, L100.0100 ####[facility] [address] [place], [address] Sodium [Moles/Vol] 141 mmol/L Normal 133-145 [facility] Comment on above: Performed By: #### L 500.2500, L100.0100 ####[facility] [address] [place], [address] Urea nitrogen [Mass/Vol] 15 mg/dL Normal 4-19 [facility] Comment on above: Performed By: #### L 500.2500, L100.0100 ####[facility] [address] [place], [address] CBC W/Diff, Automatedon 04-2 0-2024 Absolute Lymph 1.28 X10 3/uL Normal 0.83-4.51 [facility] Comment on above: Performed By: #### L 500.2500, L100.0100 ####[facility] [address] [place], [address] Absolute Neut 2.0 X10 3/uL Normal 2.0-7.7 [facility] Comment on above: Performed By: #### L 500.2500, L100.0100 ####[facility] [address] [place], [address] Basophils/100 WBC (Bld) 0.8 % Normal 0-1 [facility] Comment on above: Performed By: #### L 500.2500, L100.0100 ####[facility] [address] [place], [address] Eosinophils/100 WBC (Bld) 7.6 % High 0-5 [facility] Comment on above: Performed By: #### L 500.2500, L100.0100 ####[facility] [address] [place], [address] Erythrocyte distribution width (RBC) [Ratio] 14.0 % Normal 11.6-14.6 [facility] Comment on above: Performed By: #### L 500.2500, L100.0100 ####[facility] [address] [place], [address] Hematocrit (Bld) [Volume fraction] 37.6 % Normal 37-47 [facility] Comment on above: Performed By: #### L 500.2500, L100.0100 ####[facility] [address] [place], [address] Hemoglobin (Bld) [Mass/Vol] 12.0 g/dL Normal 12.0-15.0 [facility] Comment on above: Performed By: #### L 500.2500, L100.0100 ####[facility] [address] [place], [address] IG% 0.300 Normal 0.0-0.9 [facility] Comment on above: Result Comment: IG% - Immature Granulocytes (promyelocytes, myelocytes andmetamyelocytes) > 1% indicates that a LEFT SHIFT is Present. Performed By: #### L 500.2500, L100.0100 ####[facility] [address] [place], [address] Lymphocytes/100 WBC (Bld) 32.5 % Normal 19-41 [facility] Comment on above: Performed By: #### L 500.2500, L100.0100 ####[facility] [address] [place], [address] MCH (RBC) [Entitic mass] 29.9 pg Normal 27.0-32.0 [facility] Comment on above: Performed By: #### L 500.2500, L100.0100 ####[facility] [address] [place], [address] MCHC (RBC) [Mass/Vol] 31.9 g/dL Low 32-36 [facility] Comment on above: Performed By: #### L 500.2500, L100.0100 ####[facility] [address] [place], [address] MCV (RBC) [Entitic vol] 93.5 fL Normal 81-99 [facility] Comment on above: Performed By: #### L 500.2500, L100.0100 ####[facility] [address] [place], [address] Monocytes/100 WBC (Bld) 9.1 % Normal 0-10 [facility] Comment on above: Performed By: #### L 500.2500, L100.0100 ####[facility] [address] [place], [address] Neutrophils/100 WBC (Bld) 49.7 % Normal 47-70 [facility] Comment on above: Performed By: #### L 500.2500, L100.0100 ####[facility] [address] [place], [address] Nucleated RBC (Bld) [#/Vol] 0 10*3/uL Normal 0-5 [facility] Comment on above: Performed By: #### L 500.2500, L100.0100 ####[facility] [address] [place], [address] Platelet mean volume (Bld) [Entitic vol] 9.4 fL Normal 6.2-12.0 [facility] Comment on above: Performed By: #### L 500.2500, L100.0100 ####[facility] [address] [place], [address] Platelets (Bld) [#/Vol] 336 10*3/uL Normal 150-450 [facility] Comment on above: Performed By: #### L 500.2500, L100.0100 ####[facility] [address] [place], [address] RBC (Bld) [#/Vol] 4.02 10*6/uL Low 4.2-5.4 [facility] Comment on above: Performed By: #### L 500.2500, L100.0100 ####[facility] [address] [place], [address] RDW SD 48.6 fl High 35.1-43.9 [facility] Comment on above: Performed By: #### L 500.2500, L100.0100 ####[facility] [address] [place], [address] WBC (Bld) [#/Vol] 3.9 10*3/uL Low 4.4-11.0 [facility] Comment on above: Performed By: #### L 500.2500, L100.0100 ####[facility] [address] [place], [address] Basic Metabolic Profile (BMP )on 01-09-2025 BUN/CRE 20.7 RATIO High 10-20 [facility] Comment on above: Performed By: #### L 100.0100, L500.2500 ####[facility] [address] [place], [address] Calcium [Mass/Vol] 9.0 mg/dL Normal 7.6-11.0 [facility] Comment on above: Performed By: #### L 100.0100, L500.2500 ####[facility] [address] [place], [address] Chloride [Moles/Vol] 104 mmol/L Normal 98-108 [facility] Comment on above: Performed By: #### L 100.0100, L500.2500 ####[facility] [address] [place], [address] CO2 [Moles/Vol] 23.2 mmol/L Normal 21.0-32.0 [facility] Comment on above: Performed By: #### L 100.0100, L500.2500 ####[facility] [address] [place], [address] Creatinine [Mass/Vol] 0.74 mg/dL Normal 0.70-1.20 [facility] Comment on above: Performed By: #### L 100.0100, L500.2500 ####[facility] [address] [place], [address] ECRCL 58.45 ml/min Normal 50-250 [facility] Comment on above: Performed By: #### L 100.0100, L500.2500 ####[facility] [address] [place], [address] GAP 11 Normal 5-15 [facility] Comment on above: Performed By: #### L 100.0100, L500.2500 ####[facility] [address] [place], [address] GFR/1.73 sq M.predicted among non-blacks MDRD (S/P/Bld) [Vol rate/Area] 82 mL/min/{1.73_m2} Normal >60 [facility] Comment on above: Result Comment: mL/m in/1.73m2 CKD-EPI Creatinine Equation (2020) Performed By: #### L 100.0100, L500.2500 ####[facility] [address] [place], [address] Glucose [Mass/Vol] 96 mg/dL Normal 70-99 [facility] Comment on above: Performed By: #### L 100.0100, L500.2500 ####[facility] [address] [place], [address] Potassium [Moles/Vol] 3.7 mmol/L Normal 3.3-5.1 [facility] Comment on above: Performed By: #### L 100.0100, L500.2500 ####[facility] [address] [place], [address] Sodium [Moles/Vol] 137 mmol/L Normal 133-145 [facility] Comment on above: Performed By: #### L 100.0100, L500.2500 ####[facility] [address] [place], [address] Urea nitrogen [Mass/Vol] 15 mg/dL Normal 4-19 [facility] Comment on above: Performed By: #### L 100.0100, L500.2500 ####[facility] [address] [place], [address] CBC W/Diff, Automatedon 12-23 Absolute Lymph 1.17 X10 3/uL Normal 0.83-4.51 [facility] Comment on above: Performed By: #### L 100.0100, L500.2500 ####[facility] [address] [place], [address] Absolute Neut 2.5 X10 3/uL Normal 2.0-7.7 [facility] Comment on above: Performed By: #### L 100.0100, L500.2500 ####[facility] [address] [place], [address] Basophils/100 WBC (Bld) 0.9 % Normal 0-1 [facility] Comment on above: Performed By: #### L 100.0100, L500.2500 ####[facility] [address] [place], [address] Eosinophils/100 WBC (Bld) 7.0 % High 0-5 [facility] Comment on above: Performed By: #### L 100.0100, L500.2500 ####[facility] [address] [place], [address] Erythrocyte distribution width (RBC) [Ratio] 14.1 % Normal 11.6-14.6 [facility] Comment on above: Performed By: #### L 100.0100, L500.2500 ####[facility] [address] [place], [address] Hematocrit (Bld) [Volume fraction] 33.1 % Low 37-47 [facility] Comment on above: Performed By: #### L 100.0100, L500.2500 ####[facility] [address] [place], [address] Hemoglobin (Bld) [Mass/Vol] 10.9 g/dL Low 12.0-15.0 [facility] Comment on above: Performed By: #### L 100.0100, L500.2500 ####[facility] [address] [place], [address] IG% 0.400 Normal 0.0-0.9 [facility] Comment on above: Result Comment: IG% - Immature Granulocytes (promyelocytes, myelocytes andmetamyelocytes) > 1% indicates that a LEFT SHIFT is Present. Performed By: #### L 100.0100, L500.2500 ####[facility] [address] [place], [address] Lymphocytes/100 WBC (Bld) 26.2 % Normal 19-41 [facility] Comment on above: Performed By: #### L 100.0100, L500.2500 ####[facility] [address] [place], [address] MCH (RBC) [Entitic mass] 30.1 pg Normal 27.0-32.0 [facility] Comment on above: Performed By: #### L 100.0100, L500.2500 ####[facility] [address] [place], [address] MCHC (RBC) [Mass/Vol] 32.9 g/dL Normal 32-36 [facility] Comment on above: Performed By: #### L 100.0100, L500.2500 ####[facility] [address] [place], [address] MCV (RBC) [Entitic vol] 91.4 fL Normal 81-99 [facility] Comment on above: Performed By: #### L 100.0100, L500.2500 ####[facility] [address] [place], [address] Monocytes/100 WBC (Bld) 10.5 % High 0-10 [facility] Comment on above: Performed By: #### L 100.0100, L500.2500 ####[facility] [address] [place], [address] Neutrophils/100 WBC (Bld) 55.0 % Normal 47-70 [facility] Comment on above: Performed By: #### L 100.0100, L500.2500 ####[facility] [address] [place], [address] Nucleated RBC (Bld) [#/Vol] 0 10*3/uL Normal 0-5 [facility] Comment on above: Performed By: #### L 100.0100, L500.2500 ####[facility] [address] [place], [address] Platelet mean volume (Bld) [Entitic vol] 9.4 fL Normal 6.2-12.0 [facility] Comment on above: Performed By: #### L 100.0100, L500.2500 ####[facility] [address] [place], [address] Platelets (Bld) [#/Vol] 318 10*3/uL Normal 150-450 [facility] Comment on above: Performed By: #### L 100.0100, L500.2500 ####[facility] [address] [place], [address] RBC (Bld) [#/Vol] 3.62 10*6/uL Low 4.2-5.4 [facility] Comment on above: Performed By: #### L 100.0100, L500.2500 ####[facility] [address] [place], [address] RDW SD 47.6 fl High 35.1-43.9 [facility] Comment on above: Performed By: #### L 100.0100, L500.2500 ####[facility] [address] [place], [address] WBC (Bld) [#/Vol] 4.5 10*3/uL Normal 4.4-11.0 [facility] Comment on above: Performed By: #### L 100.0100, L500.2500 ####[facility] [address] [place], [address] Knee 1 or 2 Viewson 01-06-20 25 Knee 1 or 2 Views Normal [facility] Basic Metabolic Profile (BMP )on 01-02-2025 BUN/CRE 29.7 RATIO High 10-20 [facility] Comment on above: Performed By: #### L 500.2500, L100.0100 ####[facility] [address] [place], [address] Calcium [Mass/Vol] 9.1 mg/dL Normal 7.6-11.0 [facility] Comment on above: Performed By: #### L 500.2500, L100.0100 ####[facility] [address] [place], [address] Chloride [Moles/Vol] 104 mmol/L Normal 98-108 [facility] Comment on above: Performed By: #### L 500.2500, L100.0100 ####[facility] [address] [place], [address] CO2 [Moles/Vol] 25.7 mmol/L Normal 21.0-32.0 [facility] Comment on above: Performed By: #### L 500.2500, L100.0100 ####[facility] [address] [place], [address] Creatinine [Mass/Vol] 0.74 mg/dL Normal 0.70-1.20 [facility] Comment on above: Performed By: #### L 500.2500, L100.0100 ####[facility] [address] [place], [address] ECRCL 59.70 ml/min Normal 50-250 [facility] Comment on above: Performed By: #### L 500.2500, L100.0100 ####[facility] [address] [place], [address] GAP 9 Normal 5-15 [facility] Comment on above: Performed By: #### L 500.2500, L100.0100 ####[facility] [address] [place], [address] GFR/1.73 sq M.predicted among non-blacks MDRD (S/P/Bld) [Vol rate/Area] 82 mL/min/{1.73_m2} Normal >60 [facility] Comment on above: Result Comment: mL/m in/1.73m2 CKD-EPI Creatinine Equation (2020) Performed By: #### L 500.2500, L100.0100 ####[facility] [address] [place], [address] Glucose [Mass/Vol] 94 mg/dL Normal 70-99 [facility] Comment on above: Performed By: #### L 500.2500, L100.0100 ####[facility] [address] [place], [address] Potassium [Moles/Vol] 4.2 mmol/L Normal 3.3-5.1 [facility] Comment on above: Performed By: #### L 500.2500, L100.0100 ####[facility] [address] [place], [address] Sodium [Moles/Vol] 138 mmol/L Normal 133-145 [facility] Comment on above: Performed By: #### L 500.2500, L100.0100 ####[facility] [address] [place], [address] Urea nitrogen [Mass/Vol] 22 mg/dL High 4-19 [facility] Comment on above: Performed By: #### L 500.2500, L100.0100 ####[facility] [address] [place], [address] CBC W/Diff, Automatedon 12-23 Absolute Lymph 1.20 X10 3/uL Normal 0.83-4.51 [facility] Comment on above: Performed By: #### L 500.2500, L100.0100 ####[facility] [address] [place], [address] Absolute Neut 2.0 X10 3/uL Normal 2.0-7.7 [facility] Comment on above: Performed By: #### L 500.2500, L100.0100 ####[facility] [address] [place], [address] Basophils/100 WBC (Bld) 1.0 % Normal 0-1 [facility] Comment on above: Performed By: #### L 500.2500, L100.0100 ####[facility] [address] [place], [address] Eosinophils/100 WBC (Bld) 10.2 % High 0-5 [facility] Comment on above: Performed By: #### L 500.2500, L100.0100 ####[facility] [address] [place], [address] Erythrocyte distribution width (RBC) [Ratio] 14.6 % Normal 11.6-14.6 [facility] Comment on above: Performed By: #### L 500.2500, L100.0100 ####[facility] [address] [place], [address] Hematocrit (Bld) [Volume fraction] 32.1 % Low 37-47 [facility] Comment on above: Performed By: #### L 500.2500, L100.0100 ####[facility] [address] [place], [address] Hemoglobin (Bld) [Mass/Vol] 10.3 g/dL Low 12.0-15.0 [facility] Comment on above: Performed By: #### L 500.2500, L100.0100 ####[facility] [address] [place], [address] IG% 0.200 Normal 0.0-0.9 [facility] Comment on above: Result Comment: IG% - Immature Granulocytes (promyelocytes, myelocytes andmetamyelocytes) > 1% indicates that a LEFT SHIFT is Present. Performed By: #### L 500.2500, L100.0100 ####[facility] [address] [place], [address] Lymphocytes/100 WBC (Bld) 29.1 % Normal 19-41 [facility] Comment on above: Performed By: #### L 500.2500, L100.0100 ####[facility] [address] [place], [address] MCH (RBC) [Entitic mass] 29.9 pg Normal 27.0-32.0 [facility] Comment on above: Performed By: #### L 500.2500, L100.0100 ####[facility] [address] [place], [address] MCHC (RBC) [Mass/Vol] 32.1 g/dL Normal 32-36 [facility] Comment on above: Performed By: #### L 500.2500, L100.0100 ####[facility] [address] [place], [address] MCV (RBC) [Entitic vol] 93.3 fL Normal 81-99 [facility] Comment on above: Performed By: #### L 500.2500, L100.0100 ####[facility] [address] [place], [address] Monocytes/100 WBC (Bld) 10.0 % Normal 0-10 [facility] Comment on above: Performed By: #### L 500.2500, L100.0100 ####[facility] [address] [place], [address] Neutrophils/100 WBC (Bld) 49.5 % Normal 47-70 [facility] Comment on above: Performed By: #### L 500.2500, L100.0100 ####[facility] [address] [place], [address] Nucleated RBC (Bld) [#/Vol] 0 10*3/uL Normal 0-5 [facility] Comment on above: Performed By: #### L 500.2500, L100.0100 ####[facility] [address] [place], [address] Platelet mean volume (Bld) [Entitic vol] 9.4 fL Normal 6.2-12.0 [facility] Comment on above: Performed By: #### L 500.2500, L100.0100 ####[facility] [address] [place], [address] Platelets (Bld) [#/Vol] 359 10*3/uL Normal 150-450 [facility] Comment on above: Performed By: #### L 500.2500, L100.0100 ####[facility] [address] [place], [address] RBC (Bld) [#/Vol] 3.44 10*6/uL Low 4.2-5.4 [facility] Comment on above: Performed By: #### L 500.2500, L100.0100 ####[facility] [address] [place], [address] RDW SD 50.0 fl High 35.1-43.9 [facility] Comment on above: Performed By: #### L 500.2500, L100.0100 ####[facility] [address] [place], [address] WBC (Bld) [#/Vol] 4.1 10*3/uL Low 4.4-11.0 [facility] Comment on above: Performed By: #### L 500.2500, L100.0100 ####[facility] [address] [place], [address] Urine Cultureon 01-01-2025 URC Normal [facility] Comment on above: Performed By: #### M 100.2200, L400.0001 ####[facility] [address] [place], [address] Urinalysis, Completeon 12-30 WBC >100 SEEN Normal 0-5 [facility] Comment on above: Order Comment: TREVOR TER SPECIMEN Result Comment: Micr oscopic field is filled. Other elements may beobscured. Performed By: #### M 100.2200, L400.0001 ####[facility] [address] [place], [address] BACTERIA 0 SEEN Normal None Seen [facility] Comment on above: Order Comment: TREVOR TER SPECIMEN Performed By: #### M 100.2200, L400.0001 ####[facility] [address] [place], [address] EPI,SQUAMOUS 0 SEEN Normal -10 [facility] Comment on above: Order Comment: TREVOR TER SPECIMEN Performed By: #### M 100.2200, L400.0001 ####[facility] [address] [place], [address] Mucus Ql (Urine sed) 0 SEEN Normal [facility] Comment on above: Order Comment: TREVOR TER SPECIMEN Performed By: #### M 100.2200, L400.0001 ####[facility] [address] [place], [address] RBC 0 SEEN Normal 0-5 [facility] Comment on above: Order Comment: TREVOR TER SPECIMEN Performed By: #### M 100.2200, L400.0001 ####[facility] [address] [place], [address] Knee 1 or 2 Viewson 12-30-19 25 Knee 1 or 2 Views Normal [facility] Basic Metabolic Profile (BMP )on 12-26-2024 BUN/CRE 16.4 RATIO Normal 10-20 [facility] Comment on above: Result Comment: AMENDED REPORT 12/26/241352 BUN/CRE previously reported as: 16.2 RATIO Performed By: #### L 100.0100, L500.2500 ####[facility] [address] [place], [address] CO2 [Moles/Vol] 19.5 mmol/L Low 21.0-32.0 [facility] Comment on above: Result Comment: AMENDED REPORT 12/26/241352 CO2 previously reported as: 21.2 mmol/L Performed By: #### L 100.0100, L500.2500 ####[facility] [address] [place], [address] Creatinine [Mass/Vol] 1.16 mg/dL Normal 0.70-1.20 [facility] Comment on above: Result Comment: AMENDED REPORT 12/26/241352 CREAT,SERUM previously reported as: 1.17 mg/dL Performed By: #### L 100.0100, L500.2500 ####[facility] [address] [place], [address] ECRCL 41.79 ml/min Low 50-250 [facility] Comment on above: Result Comment: AMENDED REPORT 12/26/241352 Estimated CRCL previously reported as: 41.43 L ml/min Performed By: #### L 100.0100, L500.2500 ####[facility] [address] [place], [address] GAP 16 High 5-15 [facility] Comment on above: Result Comment: AMENDED REPORT 12/26/241352 GAP previously reported as: 14 Performed By: #### L 100.0100, L500.2500 ####[facility] [address] [place], [address] Glucose [Mass/Vol] 118 mg/dL High 70-99 [facility] Comment on above: Result Comment: AMENDED REPORT 12/26/24 1353 GLU previously reported as: 119 H mg/dL Performed By: #### L 100.0100, L500.2500 ####[facility] [address] [place], [address] CBC W/Diff, Automatedon 04-0 -2024 Absolute Lymph 1.14 X10 3/uL Normal 0.83-4.51 [facility] Comment on above: Performed By: #### L 100.0100, L500.2500 ####[facility] [address] [place], [address] Absolute Neut 3.8 X10 3/uL Normal 2.0-7.7 [facility] Comment on above: Performed By: #### L 100.0100, L500.2500 ####[facility] [address] [place], [address] Basophils/100 WBC (Bld) 0.5 % Normal 0-1 [facility] Comment on above: Performed By: #### L 100.0100, L500.2500 ####[facility] [address] [place], [address] Eosinophils/100 WBC (Bld) 5.2 % High 0-5 [facility] Comment on above: Performed By: #### L 100.0100, L500.2500 ####[facility] [address] [place], [address] Erythrocyte distribution width (RBC) [Ratio] 14.2 % Normal 11.6-14.6 [facility] Comment on above: Performed By: #### L 100.0100, L500.2500 ####[facility] [address] [place], [address] Hematocrit (Bld) [Volume fraction] 32.9 % Low 37-47 [facility] Comment on above: Performed By: #### L 100.0100, L500.2500 ####[facility] [address] [place], [address] Hemoglobin (Bld) [Mass/Vol] 10.6 g/dL Low 12.0-15.0 [facility] Comment on above: Performed By: #### L 100.0100, L500.2500 ####[facility] [address] [place], [address] IG% 0.500 Normal 0.0-0.9 [facility] Comment on above: Result Comment: IG% - Immature Granulocytes (promyelocytes, myelocytes andmetamyelocytes) > 1% indicates that a LEFT SHIFT is Present. Performed By: #### L 100.0100, L500.2500 ####[facility] [address] [place], [address] Lymphocytes/100 WBC (Bld) 19.9 % Normal 19-41 [facility] Comment on above: Performed By: #### L 100.0100, L500.2500 ####[facility] [address] [place], [address] MCH (RBC) [Entitic mass] 29.8 pg Normal 27.0-32.0 [facility] Comment on above: Performed By: #### L 100.0100, L500.2500 ####[facility] [address] [place], [address] MCHC (RBC) [Mass/Vol] 32.2 g/dL Normal 32-36 [facility] Comment on above: Performed By: #### L 100.0100, L500.2500 ####[facility] [address] [place], [address] MCV (RBC) [Entitic vol] 92.4 fL Normal 81-99 [facility] Comment on above: Performed By: #### L 100.0100, L500.2500 ####[facility] [address] [place], [address] Monocytes/100 WBC (Bld) 7.5 % Normal 0-10 [facility] Comment on above: Performed By: #### L 100.0100, L500.2500 ####[facility] [address] [place], [address] Neutrophils/100 WBC (Bld) 66.4 % Normal 47-70 [facility] Comment on above: Performed By: #### L 100.0100, L500.2500 ####[facility] [address] [place], [address] Nucleated RBC (Bld) [#/Vol] 0 10*3/uL Normal 0-5 [facility] Comment on above: Performed By: #### L 100.0100, L500.2500 ####[facility] [address] [place], [address] Platelet mean volume (Bld) [Entitic vol] 9.0 fL Normal 6.2-12.0 [facility] Comment on above: Performed By: #### L 100.0100, L500.2500 ####[facility] [address] [place], [address] Platelets (Bld) [#/Vol] 381 10*3/uL Normal 150-450 [facility] Comment on above: Performed By: #### L 100.0100, L500.2500 ####[facility] [address] [place], [address] RBC (Bld) [#/Vol] 3.56 10*6/uL Low 4.2-5.4 [facility] Comment on above: Performed By: #### L 100.0100, L500.2500 ####[facility] [address] [place], [address] RDW SD 47.4 fl High 35.1-43.9 [facility] Comment on above: Performed By: #### L 100.0100, L500.2500 ####[facility] [address] [place], [address] WBC (Bld) [#/Vol] 5.7 10*3/uL Normal 4.4-11.0 [facility] Comment on above: Performed By: #### L 100.0100, L500.2500 ####[facility] [address] [place], [address] Urine Cultureon 12-24-2024 URC Normal [facility] Comment on above: Performed By: #### M 100.2200 ####[facility] [address] [place], [address] Knee 1 or 2 Viewson 12-23-19 25 Knee 1 or 2 Views Normal [facility] HH, Hemoglobin AND Hematocri ton 12-20-2024 Hematocrit (Bld) [Volume fraction] 29.5 % Low 37-47 [facility] Comment on above: Performed By: #### L 100.0600, L503.6030 ####[facility] [address] [place], [address] Hemoglobin (Bld) [Mass/Vol] 9.8 g/dL Low 12.0-15.0 [facility] Comment on above: Performed By: #### L 100.0600, L503.6030 ####[facility] [address] [place], [address] Iron+Iron Binding Capacityon 12-20-2024 Iron [Mass/Vol] 36 ug/dL Low 50-170 [facility] Comment on above: Performed By: #### L 100.0600, L503.6030 ####[facility] [address] [place], [address] IRON SATURATION 20.0 Normal 13-59 [facility] Comment on above: Performed By: #### L 100.0600, L503.6030 ####[facility] [address] [place], [address] UIBC 146 ug/dL Low 228-428 [facility] Comment on above: Performed By: #### L 100.0600, L503.6030 ####[facility] [address] [place], [address] 12 Lead EKGon 12-19-2024 12 Lead EKG Normal [facility] Basic Metabolic Profile (BMP )on 12-19-2024 BUN/CRE 26.6 RATIO High 10-20 [facility] Comment on above: Performed By: #### L 500.2500, L100.0100 ####[facility] [address] [place], [address] Calcium [Mass/Vol] 8.4 mg/dL Normal 7.6-11.0 [facility] Comment on above: Performed By: #### L 500.2500, L100.0100 ####[facility] [address] [place], [address] Chloride [Moles/Vol] 101 mmol/L Normal 98-108 [facility] Comment on above: Performed By: #### L 500.2500, L100.0100 ####[facility] [address] [place], [address] CO2 [Moles/Vol] 26.1 mmol/L Normal 21.0-32.0 [facility] Comment on above: Performed By: #### L 500.2500, L100.0100 ####[facility] [address] [place], [address] Creatinine [Mass/Vol] 0.65 mg/dL Low 0.70-1.20 [facility] Comment on above: Performed By: #### L 500.2500, L100.0100 ####[facility] [address] [place], [address] ECRCL 60.58 ml/min Normal 50-250 [facility] Comment on above: Performed By: #### L 500.2500, L100.0100 ####[facility] [address] [place], [address] GAP 7 Normal 5-15 [facility] Comment on above: Performed By: #### L 500.2500, L100.0100 ####[facility] [address] [place], [address] GFR/1.73 sq M.predicted among non-blacks MDRD (S/P/Bld) [Vol rate/Area] 88 mL/min/{1.73_m2} Normal >60 [facility] Comment on above: Result Comment: mL/m in/1.73m2 CKD-EPI Creatinine Equation (2020) Performed By: #### L 500.2500, L100.0100 ####[facility] [address] [place], [address] Glucose [Mass/Vol] 94 mg/dL Normal 70-99 [facility] Comment on above: Performed By: #### L 500.2500, L100.0100 ####[facility] [address] [place], [address] Potassium [Moles/Vol] 4.2 mmol/L Normal 3.3-5.1 [facility] Comment on above: Performed By: #### L 500.2500, L100.0100 ####[facility] [address] [place], [address] Sodium [Moles/Vol] 134 mmol/L Normal 133-145 [facility] Comment on above: Performed By: #### L 500.2500, L100.0100 ####[facility] [address] [place], [address] Urea nitrogen [Mass/Vol] 17 mg/dL Normal 4-19 [facility] Comment on above: Performed By: #### L 500.2500, L100.0100 ####[facility] [address] [place], [address] CBC W/Diff, Automatedon 11-23 Absolute Lymph 1.24 X10 3/uL Normal 0.83-4.51 [facility] Comment on above: Performed By: #### L 500.2500, L100.0100 ####[facility] [address] [place], [address] Absolute Neut 4.1 X10 3/uL Normal 2.0-7.7 [facility] Comment on above: Performed By: #### L 500.2500, L100.0100 ####[facility] [address] [place], [address] Basophils/100 WBC (Bld) 0.5 % Normal 0-1 [facility] Comment on above: Performed By: #### L 500.2500, L100.0100 ####[facility] [address] [place], [address] Eosinophils/100 WBC (Bld) 4.7 % Normal 0-5 [facility] Comment on above: Performed By: #### L 500.2500, L100.0100 ####[facility] [address] [place], [address] Erythrocyte distribution width (RBC) [Ratio] 13.2 % Normal 11.6-14.6 [facility] Comment on above: Performed By: #### L 500.2500, L100.0100 ####[facility] [address] [place], [address] Hematocrit (Bld) [Volume fraction] 28.5 % Low 37-47 [facility] Comment on above: Performed By: #### L 500.2500, L100.0100 ####[facility] [address] [place], [address] Hemoglobin (Bld) [Mass/Vol] 9.5 g/dL Low 12.0-15.0 [facility] Comment on above: Performed By: #### L 500.2500, L100.0100 ####[facility] [address] [place], [address] IG% 0.700 Normal 0.0-0.9 [facility] Comment on above: Result Comment: IG% - Immature Granulocytes (promyelocytes, myelocytes andmetamyelocytes) > 1% indicates that a LEFT SHIFT is Present. Performed By: #### L 500.2500, L100.0100 ####[facility] [address] [place], [address] Lymphocytes/100 WBC (Bld) 20.3 % Normal 19-41 [facility] Comment on above: Performed By: #### L 500.2500, L100.0100 ####[facility] [address] [place], [address] MCH (RBC) [Entitic mass] 29.8 pg Normal 27.0-32.0 [facility] Comment on above: Performed By: #### L 500.2500, L100.0100 ####[facility] [address] [place], [address] MCHC (RBC) [Mass/Vol] 33.3 g/dL Normal 32-36 [facility] Comment on above: Performed By: #### L 500.2500, L100.0100 ####[facility] [address] [place], [address] MCV (RBC) [Entitic vol] 89.3 fL Normal 81-99 [facility] Comment on above: Performed By: #### L 500.2500, L100.0100 ####[facility] [address] [place], [address] Monocytes/100 WBC (Bld) 7.0 % Normal 0-10 [facility] Comment on above: Performed By: #### L 500.2500, L100.0100 ####[facility] [address] [place], [address] Neutrophils/100 WBC (Bld) 66.8 % Normal 47-70 [facility] Comment on above: Performed By: #### L 500.2500, L100.0100 ####[facility] [address] [place], [address] Nucleated RBC (Bld) [#/Vol] 0 10*3/uL Normal 0-5 [facility] Comment on above: Performed By: #### L 500.2500, L100.0100 ####[facility] [address] [place], [address] Platelet mean volume (Bld) [Entitic vol] 9.4 fL Normal 6.2-12.0 [facility] Comment on above: Performed By: #### L 500.2500, L100.0100 ####[facility] [address] [place], [address] Platelets (Bld) [#/Vol] 287 10*3/uL Normal 150-450 [facility] Comment on above: Performed By: #### L 500.2500, L100.0100 ####[facility] [address] [place], [address] RBC (Bld) [#/Vol] 3.19 10*6/uL Low 4.2-5.4 [facility] Comment on above: Performed By: #### L 500.2500, L100.0100 ####[facility] [address] [place], [address] RDW SD 43.5 fl Normal 35.1-43.9 [facility] Comment on above: Performed By: #### L 500.2500, L100.0100 ####[facility] [address] [place], [address] WBC (Bld) [#/Vol] 6.1 10*3/uL Normal 4.4-11.0 [facility] Comment on above: Performed By: #### L 500.2500, L100.0100 ####[facility] [address] [place], [address] Stool Occult Blood iFOBon STOB Negative Normal [facility] Comment on above: Performed By: #### M 100.7900 ####[facility] [address] [place], [address] Abdomen Single Viewon 2024 Abdomen Single View Normal [facility] Basic Metabolic Profile (BMP )on 12-17-2024 BUN/CRE 51.0 RATIO High 10-20 [facility] Comment on above: Performed By: #### L 500.2500 ####[facility] [address] [place], [address] Calcium [Mass/Vol] 8.8 mg/dL Normal 7.6-11.0 [facility] Comment on above: Performed By: #### L 500.2500 ####[facility] [address] [place], [address] Chloride [Moles/Vol] 103 mmol/L Normal 98-108 [facility] Comment on above: Performed By: #### L 500.2500 ####[facility] [address] [place], [address] CO2 [Moles/Vol] 18.0 mmol/L Low 21.0-32.0 [facility] Comment on above: Performed By: #### L 500.2500 ####[facility] [address] [place], [address] Creatinine [Mass/Vol] 0.67 mg/dL Low 0.70-1.20 [facility] Comment on above: Performed By: #### L 500.2500 ####[facility] [address] [place], [address] ECRCL 60.58 ml/min Normal 50-250 [facility] Comment on above: Performed By: #### L 500.2500 ####[facility] [address] [place], [address] GAP 11 Normal 5-15 [facility] Comment on above: Performed By: #### L 500.2500 ####[facility] [address] [place], [address] GFR/1.73 sq M.predicted among non-blacks MDRD (S/P/Bld) [Vol rate/Area] 88 mL/min/{1.73_m2} Normal >60 [facility] Comment on above: Result Comment: mL/m in/1.73m2 CKD-EPI Creatinine Equation (2020) Performed By: #### L 500.2500 ####[facility] [address] [place], [address] Glucose [Mass/Vol] 210 mg/dL High 70-99 [facility] Comment on above: Performed By: #### L 500.2500 ####[facility] [address] [place], [address] Potassium [Moles/Vol] 4.5 mmol/L Normal 3.3-5.1 [facility] Comment on above: Result Comment: Hemo lysis present, Results??could be affected.?? Performed By: #### L 500.2500 ####[facility] [address] [place], [address] Sodium [Moles/Vol] 132 mmol/L Low 133-145 [facility] Comment on above: Performed By: #### L 500.2500 ####[facility] [address] [place], [address] Urea nitrogen [Mass/Vol] 34 mg/dL High 4-19 [facility] Comment on above: Performed By: #### L 500.2500 ####[facility] [address] [place], [address] BUN Normal 4-19 [facility] Comment on above: Result Comment: Canc elled via OM: Order cancelled - Patient discharged Performed By: #### L 500.2500, L100.0100 ####[facility] [address] [place], [address] BUN/CRE Normal 10-20 [facility] Comment on above: Result Comment: Canc elled via OM: Order cancelled - Patient discharged Performed By: #### L 500.2500, L100.0100 ####[facility] [address] [place], [address] Calcium Normal 7.6-11.0 [facility] Comment on above: Result Comment: Canc elled via OM: Order cancelled - Patient discharged Performed By: #### L 500.2500, L100.0100 ####[facility] [address] [place], [address] CL Normal 98-108 [facility] Comment on above: Result Comment: Canc elled via OM: Order cancelled - Patient discharged Performed By: #### L 500.2500, L100.0100 ####[facility] [address] [place], [address] CO2 Normal 21.0-32.0 [facility] Comment on above: Result Comment: Canc elled via OM: Order cancelled - Patient discharged Performed By: #### L 500.2500, L100.0100 ####[facility] [address] [place], [address] CREAT,SERUM Normal 0.70-1.20 [facility] Comment on above: Result Comment: Canc elled via OM: Order cancelled - Patient discharged Performed By: #### L 500.2500, L100.0100 ####[facility] [address] [place], [address] eGFR Normal >60 [facility] Comment on above: Result Comment: Canc elled via OM: Order cancelled - Patient discharged Performed By: #### L 500.2500, L100.0100 ####[facility] [address] [place], [address] GAP Normal 5-15 [facility] Comment on above: Result Comment: Canc elled via OM: Order cancelled - Patient discharged Performed By: #### L 500.2500, L100.0100 ####[facility] [address] [place], [address] GLU Normal 70-99 [facility] Comment on above: Result Comment: Canc elled via OM: Order cancelled - Patient discharged Performed By: #### L 500.2500, L100.0100 ####[facility] [address] [place], [address] Potassium Normal 3.3-5.1 [facility] Comment on above: Result Comment: Canc elled via OM: Order cancelled - Patient discharged Performed By: #### L 500.2500, L100.0100 ####[facility] [address] [place], [address] Basic Metabolic Profile (BMP) Normal 133-145 [facility] Comment on above: Result Comment: Canc elled via OM: Order cancelled - Patient discharged Performed By: #### L 500.2500, L100.0100 ####[facility] [address] [place], [address] CBC W/Diff, Automatedon 03-2 Absolute Neut Normal 2.0-7.7 [facility] Comment on above: Result Comment: Canc elled via OM: Order cancelled - Patient discharged Performed By: #### L 500.2500, L100.0100 ####[facility] [address] [place], [address] HCT Normal 37-47 [facility] Comment on above: Result Comment: Canc elled via OM: Order cancelled - Patient discharged Performed By: #### L 500.2500, L100.0100 ####[facility] [address] [place], [address] HGB Normal 12.0-15.0 [facility] Comment on above: Result Comment: Canc elled via OM: Order cancelled - Patient discharged Performed By: #### L 500.2500, L100.0100 ####[facility] [address] [place], [address] MCH Normal 27.0-32.0 [facility] Comment on above: Result Comment: Canc elled via OM: Order cancelled - Patient discharged Performed By: #### L 500.2500, L100.0100 ####[facility] [address] [place], [address] MCHC Normal 32-36 [facility] Comment on above: Result Comment: Canc elled via OM: Order cancelled - Patient discharged Performed By: #### L 500.2500, L100.0100 ####[facility] [address] [place], [address] MCV Normal 81-99 [facility] Comment on above: Result Comment: Canc elled via OM: Order cancelled - Patient discharged Performed By: #### L 500.2500, L100.0100 ####[facility] [address] [place], [address] NEUT% Normal 47-70 [facility] Comment on above: Result Comment: Canc elled via OM: Order cancelled - Patient discharged Performed By: #### L 500.2500, L100.0100 ####[facility] [address] [place], [address] PLT Normal 150-450 [facility] Comment on above: Result Comment: Canc elled via OM: Order cancelled - Patient discharged Performed By: #### L 500.2500, L100.0100 ####[facility] [address] [place], [address] RBC Normal 4.2-5.4 [facility] Comment on above: Result Comment: Canc elled via OM: Order cancelled - Patient discharged Performed By: #### L 500.2500, L100.0100 ####[facility] [address] [place], [address] RDW CV Normal 11.6-14.6 [facility] Comment on above: Result Comment: Canc elled via OM: Order cancelled - Patient discharged Performed By: #### L 500.2500, L100.0100 ####[facility] [address] [place], [address] RDW SD Normal 35.1-43.9 [facility] Comment on above: Result Comment: Canc elled via OM: Order cancelled - Patient discharged Performed By: #### L 500.2500, L100.0100 ####[facility] [address] [place], [address] WBC Normal 4.4-11.0 [facility] Comment on above: Result Comment: Canc elled via OM: Order cancelled - Patient discharged Performed By: #### L 500.2500, L100.0100 ####[facility] [address] [place], [address] Urinalysis, Completeon 12-17 RBC 0 SEEN Normal 0-5 [facility] Comment on above: Order Comment: TREVOR TER SPECIMEN Performed By: #### L 400.0001 ####[facility] [address] [place], [address] WBC 0-5 SEEN Normal 0-5 [facility] Comment on above: Order Comment: TREVOR TER SPECIMEN Performed By: #### L 400.0001 ####[facility] [address] [place], [address] BACTERIA 1+ /hpf Normal None Seen [facility] Comment on above: Order Comment: TREVOR TER SPECIMEN Performed By: #### L 400.0001 ####[facility] [address] [place], [address] EPI,SQUAMOUS 0 SEEN Normal 5-10 [facility] Comment on above: Order Comment: TREVOR TER SPECIMEN Performed By: #### L 400.0001 ####[facility] [address] [place], [address] Mucus Ql (Urine sed) 0 SEEN Normal [facility] Comment on above: Order Comment: TREVOR TER SPECIMEN Performed By: #### L 400.0001 ####[facility] [address] [place], [address] Basic Metabolic Profile (BMP )on 12-16-2024 BUN Normal -19 [facility] Comment on above: Result Comment: Canc elled via OM: Order cancelled - Patient discharged Performed By: #### L 500.2500, L100.0100 ####[facility] [address] [place], [address] BUN/CRE Normal 10-20 [facility] Comment on above: Result Comment: Canc elled via OM: Order cancelled - Patient discharged Performed By: #### L 500.2500, L100.0100 ####[facility] [address] [place], [address] Calcium Normal 7.6-11.0 [facility] Comment on above: Result Comment: Canc elled via OM: Order cancelled - Patient discharged Performed By: #### L 500.2500, L100.0100 ####[facility] [address] [place], [address] CL Normal 98-108 [facility] Comment on above: Result Comment: Canc elled via OM: Order cancelled - Patient discharged Performed By: #### L 500.2500, L100.0100 ####[facility] [address] [place], [address] CO2 Normal 21.0-32.0 [facility] Comment on above: Result Comment: Canc elled via OM: Order cancelled - Patient discharged Performed By: #### L 500.2500, L100.0100 ####[facility] [address] [place], [address] CREAT,SERUM Normal 0.70-1.20 [facility] Comment on above: Result Comment: Canc elled via OM: Order cancelled - Patient discharged Performed By: #### L 500.2500, L100.0100 ####[facility] [address] [place], [address] eGFR Normal >60 [facility] Comment on above: Result Comment: Canc elled via OM: Order cancelled - Patient discharged Performed By: #### L 500.2500, L100.0100 ####[facility] [address] [place], [address] GAP Normal 5-15 [facility] Comment on above: Result Comment: Canc elled via OM: Order cancelled - Patient discharged Performed By: #### L 500.2500, L100.0100 ####[facility] [address] [place], [address] GLU Normal 70-99 [facility] Comment on above: Result Comment: Canc elled via OM: Order cancelled - Patient discharged Performed By: #### L 500.2500, L100.0100 ####[facility] [address] [place], [address] Potassium Normal 3.3-5.1 [facility] Comment on above: Result Comment: Canc elled via OM: Order cancelled - Patient discharged Performed By: #### L 500.2500, L100.0100 ####[facility] [address] [place], [address] Basic Metabolic Profile (BMP) Normal 133-145 [facility] Comment on above: Result Comment: Canc elled via OM: Order cancelled - Patient discharged Performed By: #### L 500.2500, L100.0100 ####[facility] [address] [place], [address] CBC W/Diff, Automatedon 11-23 Absolute Neut Normal 2.0-7.7 [facility] Comment on above: Result Comment: Canc elled via OM: Order cancelled - Patient discharged Performed By: #### L 500.2500, L100.0100 ####[facility] [address] [place], [address] HCT Normal 37-47 [facility] Comment on above: Result Comment: Canc elled via OM: Order cancelled - Patient discharged Performed By: #### L 500.2500, L100.0100 ####[facility] [address] [place], [address] HGB Normal 12.0-15.0 [facility] Comment on above: Result Comment: Canc elled via OM: Order cancelled - Patient discharged Performed By: #### L 500.2500, L100.0100 ####[facility] [address] [place], [address] MCH Normal 27.0-32.0 [facility] Comment on above: Result Comment: Canc elled via OM: Order cancelled - Patient discharged Performed By: #### L 500.2500, L100.0100 ####[facility] [address] [place], [address] MCHC Normal 32-36 [facility] Comment on above: Result Comment: Canc elled via OM: Order cancelled - Patient discharged Performed By: #### L 500.2500, L100.0100 ####[facility] [address] [place], [address] MCV Normal 81-99 [facility] Comment on above: Result Comment: Canc elled via OM: Order cancelled - Patient discharged Performed By: #### L 500.2500, L100.0100 ####[facility] [address] [place], [address] NEUT% Normal 47-70 [facility] Comment on above: Result Comment: Canc elled via OM: Order cancelled - Patient discharged Performed By: #### L 500.2500, L100.0100 ####[facility] [address] [place], [address] PLT Normal 150-450 [facility] Comment on above: Result Comment: Canc elled via OM: Order cancelled - Patient discharged Performed By: #### L 500.2500, L100.0100 ####[facility] [address] [place], [address] RBC Normal 4.2-5.4 [facility] Comment on above: Result Comment: Canc elled via OM: Order cancelled - Patient discharged Performed By: #### L 500.2500, L100.0100 ####[facility] [address] [place], [address] RDW CV Normal 11.6-14.6 [facility] Comment on above: Result Comment: Canc elled via OM: Order cancelled - Patient discharged Performed By: #### L 500.2500, L100.0100 ####[facility] [address] [place], [address] RDW SD Normal 35.1-43.9 [facility] Comment on above: Result Comment: Canc elled via OM: Order cancelled - Patient discharged Performed By: #### L 500.2500, L100.0100 ####[facility] [address] [place], [address] WBC Normal 4.4-11.0 [facility] Comment on above: Result Comment: Canc elled via OM: Order cancelled - Patient discharged Performed By: #### L 500.2500, L100.0100 ####[facility] [address] [place], [address] Basic Metabolic Profile (BMP )on 12-15-2024 BUN Normal 4-19 [facility] Comment on above: Result Comment: Canc elled via OM: Order cancelled - Patient discharged Performed By: #### L 100.0100, L500.2500 ####[facility] [address] [place], [address] BUN/CRE Normal 10-20 [facility] Comment on above: Result Comment: Canc elled via OM: Order cancelled - Patient discharged Performed By: #### L 100.0100, L500.2500 ####[facility] [address] [place], [address] Calcium Normal 7.6-11.0 [facility] Comment on above: Result Comment: Canc elled via OM: Order cancelled - Patient discharged Performed By: #### L 100.0100, L500.2500 ####[facility] [address] [place], [address] CL Normal 98-108 [facility] Comment on above: Result Comment: Canc elled via OM: Order cancelled - Patient discharged Performed By: #### L 100.0100, L500.2500 ####[facility] [address] [place], [address] CO2 Normal 21.0-32.0 [facility] Comment on above: Result Comment: Canc elled via OM: Order cancelled - Patient discharged Performed By: #### L 100.0100, L500.2500 ####[facility] [address] [place], [address] CREAT,SERUM Normal 0.70-1.20 [facility] Comment on above: Result Comment: Canc elled via OM: Order cancelled - Patient discharged Performed By: #### L 100.0100, L500.2500 ####[facility] [address] [place], [address] eGFR Normal >60 [facility] Comment on above: Result Comment: Canc elled via OM: Order cancelled - Patient discharged Performed By: #### L 100.0100, L500.2500 ####[facility] [address] [place], [address] GAP Normal 5-15 [facility] Comment on above: Result Comment: Canc elled via OM: Order cancelled - Patient discharged Performed By: #### L 100.0100, L500.2500 ####[facility] [address] [place], [address] GLU Normal 70-99 [facility] Comment on above: Result Comment: Canc elled via OM: Order cancelled - Patient discharged Performed By: #### L 100.0100, L500.2500 ####[facility] [address] [place], [address] Potassium Normal 3.3-5.1 [facility] Comment on above: Result Comment: Canc elled via OM: Order cancelled - Patient discharged Performed By: #### L 100.0100, L500.2500 ####[facility] [address] [place], [address] Basic Metabolic Profile (BMP) Normal 133-145 [facility] Comment on above: Result Comment: Canc elled via OM: Order cancelled - Patient discharged Performed By: #### L 100.0100, L500.2500 ####[facility] [address] [place], [address] CBC W/Diff, Automatedon 03-2 Absolute Neut Normal 2.0-7.7 [facility] Comment on above: Result Comment: Canc elled via OM: Order cancelled - Patient discharged Performed By: #### L 100.0100, L500.2500 ####[facility] [address] [place], [address] HCT Normal 37-47 [facility] Comment on above: Result Comment: Canc elled via OM: Order cancelled - Patient discharged Performed By: #### L 100.0100, L500.2500 ####[facility] [address] [place], [address] HGB Normal 12.0-15.0 [facility] Comment on above: Result Comment: Canc elled via OM: Order cancelled - Patient discharged Performed By: #### L 100.0100, L500.2500 ####[facility] [address] [place], [address] MCH Normal 27.0-32.0 [facility] Comment on above: Result Comment: Canc elled via OM: Order cancelled - Patient discharged Performed By: #### L 100.0100, L500.2500 ####[facility] [address] [place], [address] MCHC Normal 32-36 [facility] Comment on above: Result Comment: Canc elled via OM: Order cancelled - Patient discharged Performed By: #### L 100.0100, L500.2500 ####[facility] [address] [place], [address] MCV Normal 81-99 [facility] Comment on above: Result Comment: Canc elled via OM: Order cancelled - Patient discharged Performed By: #### L 100.0100, L500.2500 ####[facility] [address] [place], [address] NEUT% Normal 47-70 [facility] Comment on above: Result Comment: Canc elled via OM: Order cancelled - Patient discharged Performed By: #### L 100.0100, L500.2500 ####[facility] [address] [place], [address] PLT Normal 150-450 [facility] Comment on above: Result Comment: Canc elled via OM: Order cancelled - Patient discharged Performed By: #### L 100.0100, L500.2500 ####[facility] [address] [place], [address] RBC Normal 4.2-5.4 [facility] Comment on above: Result Comment: Canc elled via OM: Order cancelled - Patient discharged Performed By: #### L 100.0100, L500.2500 ####[facility] [address] [place], [address] RDW CV Normal 11.6-14.6 [facility] Comment on above: Result Comment: Canc elled via OM: Order cancelled - Patient discharged Performed By: #### L 100.0100, L500.2500 ####[facility] [address] [place], [address] RDW SD Normal 35.1-43.9 [facility] Comment on above: Result Comment: Canc elled via OM: Order cancelled - Patient discharged Performed By: #### L 100.0100, L500.2500 ####[facility] [address] [place], [address] WBC Normal 4.4-11.0 [facility] Comment on above: Result Comment: Canc elled via OM: Order cancelled - Patient discharged Performed By: #### L 100.0100, L500.2500 ####[facility] [address] [place], [address] Basic Metabolic Profile (BMP )on 12-14-2024 BUN Normal 4-19 [facility] Comment on above: Result Comment: Canc elled via OM: Order cancelled - Patient discharged Performed By: #### L 500.2500, L100.0100 ####[facility] [address] [place], [address] BUN/CRE Normal 10-20 [facility] Comment on above: Result Comment: Canc elled via OM: Order cancelled - Patient discharged Performed By: #### L 500.2500, L100.0100 ####[facility] [address] [place], [address] Calcium Normal 7.6-11.0 [facility] Comment on above: Result Comment: Canc elled via OM: Order cancelled - Patient discharged Performed By: #### L 500.2500, L100.0100 ####[facility] [address] [place], [address] CL Normal 98-108 [facility] Comment on above: Result Comment: Canc elled via OM: Order cancelled - Patient discharged Performed By: #### L 500.2500, L100.0100 ####[facility] [address] [place], [address] CO2 Normal 21.0-32.0 [facility] Comment on above: Result Comment: Canc elled via OM: Order cancelled - Patient discharged Performed By: #### L 500.2500, L100.0100 ####[facility] [address] [place], [address] CREAT,SERUM Normal 0.70-1.20 [facility] Comment on above: Result Comment: Canc elled via OM: Order cancelled - Patient discharged Performed By: #### L 500.2500, L100.0100 ####[facility] [address] [place], [address] eGFR Normal >60 [facility] Comment on above: Result Comment: Canc elled via OM: Order cancelled - Patient discharged Performed By: #### L 500.2500, L100.0100 ####[facility] [address] [place], [address] GAP Normal 5-15 [facility] Comment on above: Result Comment: Canc elled via OM: Order cancelled - Patient discharged Performed By: #### L 500.2500, L100.0100 ####[facility] [address] [place], [address] GLU Normal 70-99 [facility] Comment on above: Result Comment: Canc elled via OM: Order cancelled - Patient discharged Performed By: #### L 500.2500, L100.0100 ####[facility] [address] [place], [address] Potassium Normal 3.3-5.1 [facility] Comment on above: Result Comment: Canc elled via OM: Order cancelled - Patient discharged Performed By: #### L 500.2500, L100.0100 ####[facility] [address] [place], [address] Basic Metabolic Profile (BMP) Normal 133-145 [facility] Comment on above: Result Comment: Canc elled via OM: Order cancelled - Patient discharged Performed By: #### L 500.2500, L100.0100 ####[facility] [address] [place], [address] CBC W/Diff, Automatedon 03-2 Absolute Neut Normal 2.0-7.7 [facility] Comment on above: Result Comment: Canc elled via OM: Order cancelled - Patient discharged Performed By: #### L 500.2500, L100.0100 ####[facility] [address] [place], [address] HCT Normal 37-47 [facility] Comment on above: Result Comment: Canc elled via OM: Order cancelled - Patient discharged Performed By: #### L 500.2500, L100.0100 ####[facility] [address] [place], [address] HGB Normal 12.0-15.0 [facility] Comment on above: Result Comment: Canc elled via OM: Order cancelled - Patient discharged Performed By: #### L 500.2500, L100.0100 ####[facility] [address] [place], [address] MCH Normal 27.0-32.0 [facility] Comment on above: Result Comment: Canc elled via OM: Order cancelled - Patient discharged Performed By: #### L 500.2500, L100.0100 ####[facility] [address] [place], [address] MCHC Normal 32-36 [facility] Comment on above: Result Comment: Canc elled via OM: Order cancelled - Patient discharged Performed By: #### L 500.2500, L100.0100 ####[facility] [address] [place], [address] MCV Normal 81-99 [facility] Comment on above: Result Comment: Canc elled via OM: Order cancelled - Patient discharged Performed By: #### L 500.2500, L100.0100 ####[facility] [address] [place], [address] NEUT% Normal 47-70 [facility] Comment on above: Result Comment: Canc elled via OM: Order cancelled - Patient discharged Performed By: #### L 500.2500, L100.0100 ####[facility] [address] [place], [address] PLT Normal 150-450 [facility] Comment on above: Result Comment: Canc elled via OM: Order cancelled - Patient discharged Performed By: #### L 500.2500, L100.0100 ####[facility] [address] [place], [address] RBC Normal 4.2-5.4 [facility] Comment on above: Result Comment: Canc elled via OM: Order cancelled - Patient discharged Performed By: #### L 500.2500, L100.0100 ####[facility] [address] [place], [address] RDW CV Normal 11.6-14.6 [facility] Comment on above: Result Comment: Canc elled via OM: Order cancelled - Patient discharged Performed By: #### L 500.2500, L100.0100 ####[facility] [address] [place], [address] RDW SD Normal 35.1-43.9 [facility] Comment on above: Result Comment: Canc elled via OM: Order cancelled - Patient discharged Performed By: #### L 500.2500, L100.0100 ####[facility] [address] [place], [address] WBC Normal 4.4-11.0 [facility] Comment on above: Result Comment: Canc elled via OM: Order cancelled - Patient discharged Performed By: #### L 500.2500, L100.0100 ####[facility] [address] [place], [address] Basic Metabolic Profile (BMP )on 12-13-2024 BUN Normal 4-19 [facility] Comment on above: Result Comment: Canc elled via OM: Order cancelled - Patient discharged Performed By: #### L 500.2500, L100.0100 ####[facility] [address] [place], [address] BUN/CRE Normal 10-20 [facility] Comment on above: Result Comment: Canc elled via OM: Order cancelled - Patient discharged Performed By: #### L 500.2500, L100.0100 ####[facility] [address] [place], [address] Calcium Normal 7.6-11.0 [facility] Comment on above: Result Comment: Canc elled via OM: Order cancelled - Patient discharged Performed By: #### L 500.2500, L100.0100 ####[facility] [address] [place], [address] CL Normal 98-108 [facility] Comment on above: Result Comment: Canc elled via OM: Order cancelled - Patient discharged Performed By: #### L 500.2500, L100.0100 ####[facility] [address] [place], [address] CO2 Normal 21.0-32.0 [facility] Comment on above: Result Comment: Canc elled via OM: Order cancelled - Patient discharged Performed By: #### L 500.2500, L100.0100 ####[facility] [address] [place], [address] CREAT,SERUM Normal 0.70-1.20 [facility] Comment on above: Result Comment: Canc elled via OM: Order cancelled - Patient discharged Performed By: #### L 500.2500, L100.0100 ####[facility] [address] [place], [address] eGFR Normal >60 [facility] Comment on above: Result Comment: Canc elled via OM: Order cancelled - Patient discharged Performed By: #### L 500.2500, L100.0100 ####[facility] [address] [place], [address] GAP Normal 5-15 [facility] Comment on above: Result Comment: Canc elled via OM: Order cancelled - Patient discharged Performed By: #### L 500.2500, L100.0100 ####[facility] [address] [place], [address] GLU Normal 70-99 [facility] Comment on above: Result Comment: Canc elled via OM: Order cancelled - Patient discharged Performed By: #### L 500.2500, L100.0100 ####[facility] [address] [place], [address] Potassium Normal 3.3-5.1 [facility] Comment on above: Result Comment: Canc elled via OM: Order cancelled - Patient discharged Performed By: #### L 500.2500, L100.0100 ####[facility] [address] [place], [address] Basic Metabolic Profile (BMP) Normal 133-145 [facility] Comment on above: Result Comment: Canc elled via OM: Order cancelled - Patient discharged Performed By: #### L 500.2500, L100.0100 ####[facility] [address] [place], [address] CBC W/Diff, Automatedon - Absolute Neut Normal 2.0-7.7 [facility] Comment on above: Result Comment: Canc elled via OM: Order cancelled - Patient discharged Performed By: #### L 500.2500, L100.0100 ####[facility] [address] [place], [address] HCT Normal 37-47 [facility] Comment on above: Result Comment: Canc elled via OM: Order cancelled - Patient discharged Performed By: #### L 500.2500, L100.0100 ####[facility] [address] [place], [address] HGB Normal 12.0-15.0 [facility] Comment on above: Result Comment: Canc elled via OM: Order cancelled - Patient discharged Performed By: #### L 500.2500, L100.0100 ####[facility] [address] [place], [address] MCH Normal 27.0-32.0 [facility] Comment on above: Result Comment: Canc elled via OM: Order cancelled - Patient discharged Performed By: #### L 500.2500, L100.0100 ####[facility] [address] [place], [address] MCHC Normal 32-36 [facility] Comment on above: Result Comment: Canc elled via OM: Order cancelled - Patient discharged Performed By: #### L 500.2500, L100.0100 ####[facility] [address] [place], [address] MCV Normal 81-99 [facility] Comment on above: Result Comment: Canc elled via OM: Order cancelled - Patient discharged Performed By: #### L 500.2500, L100.0100 ####[facility] [address] [place], [address] NEUT% Normal 47-70 [facility] Comment on above: Result Comment: Canc elled via OM: Order cancelled - Patient discharged Performed By: #### L 500.2500, L100.0100 ####[facility] [address] [place], [address] PLT Normal 150-450 [facility] Comment on above: Result Comment: Canc elled via OM: Order cancelled - Patient discharged Performed By: #### L 500.2500, L100.0100 ####[facility] [address] [place], [address] RBC Normal 4.2-5.4 [facility] Comment on above: Result Comment: Canc elled via OM: Order cancelled - Patient discharged Performed By: #### L 500.2500, L100.0100 ####[facility] [address] [place], [address] RDW CV Normal 11.6-14.6 [facility] Comment on above: Result Comment: Canc elled via OM: Order cancelled - Patient discharged Performed By: #### L 500.2500, L100.0100 ####[facility] [address] [place], [address] RDW SD Normal 35.1-43.9 [facility] Comment on above: Result Comment: Canc elled via OM: Order cancelled - Patient discharged Performed By: #### L 500.2500, L100.0100 ####[facility] [address] [place], [address] WBC Normal 4.4-11.0 [facility] Comment on above: Result Comment: Canc elled via OM: Order cancelled - Patient discharged Performed By: #### L 500.2500, L100.0100 ####[facility] [address] [place], [address] L503.0106on 12-13-2024 Cobalamin (Vitamin B12) [Mass/Vol] 645 pg/mL Normal 180-914 [facility] Comment on above: Performed By: #### L 503.0106, L500.4100 ####[facility] [address] [place], [address] Lipid Profileon 12-13-2024 CHOL:HDL 2.08 Normal [facility] Comment on above: Performed By: #### L 503.0106, L500.4100 ####[facility] [address] [place], [address] Cholesterol [Mass/Vol] 124 mg/dL Normal <=200 [facility] Comment on above: Result Comment: Chol esterol level, Desirable <200 mg/dLBorderline high cholesterol 200-239 mg/dLHigh cholesterol >=240 mg/dLRecommendations of the NCEP Adult Treatment Panel for thefollowing risk-cutoff thresholds for the [place] Americanpulation. Performed By: #### L 503.0106, L500.4100 ####[facility] [address] [place], [address] Cholesterol in HDL [Mass/Vol] 60 mg/dL Normal [facility] Comment on above: Result Comment: Rosalind onal Cholesterol Education Program (NCEP) guidelines:<40 mg/dL: Low HDL-cholesterol (major risk factor for CHD)>= 60 mg/dL: High HDL-cholesterol (negative risk factor forCHD)HDL-cholesterol is affected by a number of factors, e.g.smoking, exercise, hormones, sex and age. Performed By: #### L 503.0106, L500.4100 ####[facility] [address] [place], [address] Cholesterol in LDL [Mass/Vol] 47 mg/dL Normal [facility] Comment on above: Result Comment: Bord gtxvec=004-444 mg/dL Higher Bnsm=808 mg/dL or greater Performed By: #### L 503.0106, L500.4100 ####[facility] [address] [place], [address] Cholesterol in VLDL [Mass/Vol] 17 mg/dL Normal 5-40 [facility] Comment on above: Performed By: #### L 503.0106, L500.4100 ####[facility] [address] [place], [address] Triglyceride [Mass/Vol] 85 mg/dL Normal [facility] Comment on above: Result Comment: The drugs N-Acetylcysteine and Metamizole may falselydepress this assay.Normal range: <150 mg/dLBorderline High: 150-199 mg/dLHigh: 200-499 mg/dLVery High: >500 mg/dL Performed By: #### L 503.0106, L500.4100 ####[facility] [address] [place], [address] Basic Metabolic Profile (BMP )on 12-12-2024 BUN/CRE 29.5 RATIO High 10-20 [facility] Comment on above: Performed By: #### L 500.2500, L100.0100 ####[facility] [address] [place], [address] Calcium [Mass/Vol] 9.2 mg/dL Normal 7.6-11.0 [facility] Comment on above: Performed By: #### L 500.2500, L100.0100 ####[facility] [address] [place], [address] Chloride [Moles/Vol] 97 mmol/L Low 98-108 [facility] Comment on above: Performed By: #### L 500.2500, L100.0100 ####[facility] [address] [place], [address] CO2 [Moles/Vol] 20.4 mmol/L Low 21.0-32.0 [facility] Comment on above: Performed By: #### L 500.2500, L100.0100 ####[facility] [address] [place], [address] Creatinine [Mass/Vol] 1.39 mg/dL High 0.70-1.20 [facility] Comment on above: Performed By: #### L 500.2500, L100.0100 ####[facility] [address] [place], [address] ECRCL 35.39 ml/min Low 50-250 [facility] Comment on above: Performed By: #### L 500.2500, L100.0100 ####[facility] [address] [place], [address] GAP 11 Normal 5-15 [facility] Comment on above: Performed By: #### L 500.2500, L100.0100 ####[facility] [address] [place], [address] GFR/1.73 sq M.predicted among non-blacks MDRD (S/P/Bld) [Vol rate/Area] 38 mL/min/{1.73_m2} Low >60 [facility] Comment on above: Result Comment: mL/m in/1.73m2 CKD-EPI Creatinine Equation (2020) Performed By: #### L 500.2500, L100.0100 ####[facility] [address] [place], [address] Glucose [Mass/Vol] 99 mg/dL Normal 70-99 [facility] Comment on above: Performed By: #### L 500.2500, L100.0100 ####[facility] [address] [place], [address] Potassium [Moles/Vol] 4.9 mmol/L Normal 3.3-5.1 [facility] Comment on above: Performed By: #### L 500.2500, L100.0100 ####[facility] [address] [place], [address] Sodium [Moles/Vol] 128 mmol/L Low 133-145 [facility] Comment on above: Performed By: #### L 500.2500, L100.0100 ####[facility] [address] [place], [address] Urea nitrogen [Mass/Vol] 41 mg/dL High 4-19 [facility] Comment on above: Performed By: #### L 500.2500, L100.0100 ####[facility] [address] [place], [address] BUN Normal 4-19 [facility] Comment on above: Result Comment: Canc elled via OM: Order cancelled - Patient discharged Performed By: #### L 100.0100, L500.2500 ####[facility] [address] [place], [address] BUN/CRE Normal 10-20 [facility] Comment on above: Result Comment: Canc elled via OM: Order cancelled - Patient discharged Performed By: #### L 100.0100, L500.2500 ####[facility] [address] [place], [address] Calcium Normal 7.6-11.0 [facility] Comment on above: Result Comment: Canc elled via OM: Order cancelled - Patient discharged Performed By: #### L 100.0100, L500.2500 ####[facility] [address] [place], [address] CL Normal 98-108 [facility] Comment on above: Result Comment: Canc elled via OM: Order cancelled - Patient discharged Performed By: #### L 100.0100, L500.2500 ####[facility] [address] [place], [address] CO2 Normal 21.0-32.0 [facility] Comment on above: Result Comment: Canc elled via OM: Order cancelled - Patient discharged Performed By: #### L 100.0100, L500.2500 ####[facility] [address] [place], [address] CREAT,SERUM Normal 0.70-1.20 [facility] Comment on above: Result Comment: Canc elled via OM: Order cancelled - Patient discharged Performed By: #### L 100.0100, L500.2500 ####[facility] [address] [place], [address] eGFR Normal >60 [facility] Comment on above: Result Comment: Canc elled via OM: Order cancelled - Patient discharged Performed By: #### L 100.0100, L500.2500 ####[facility] [address] [place], [address] GAP Normal 5-15 [facility] Comment on above: Result Comment: Canc elled via OM: Order cancelled - Patient discharged Performed By: #### L 100.0100, L500.2500 ####[facility] [address] [place], [address] GLU Normal 70-99 [facility] Comment on above: Result Comment: Canc elled via OM: Order cancelled - Patient discharged Performed By: #### L 100.0100, L500.2500 ####[facility] [address] [place], [address] Potassium Normal 3.3-5.1 [facility] Comment on above: Result Comment: Canc elled via OM: Order cancelled - Patient discharged Performed By: #### L 100.0100, L500.2500 ####[facility] [address] [place], [address] Basic Metabolic Profile (BMP) Normal 133-145 [facility] Comment on above: Result Comment: Canc elled via OM: Order cancelled - Patient discharged Performed By: #### L 100.0100, L500.2500 ####[facility] [address] [place], [address] CBC W/Diff, Automatedon 03-2 -2024 Absolute Lymph 0.93 X10 3/uL Normal 0.83-4.51 [facility] Comment on above: Performed By: #### L 500.2500, L100.0100 ####[facility] [address] [place], [address] Absolute Neut 4.4 X10 3/uL Normal 2.0-7.7 [facility] Comment on above: Performed By: #### L 500.2500, L100.0100 ####[facility] [address] [place], [address] Basophils/100 WBC (Bld) 0.3 % Normal 0-1 [facility] Comment on above: Performed By: #### L 500.2500, L100.0100 ####[facility] [address] [place], [address] Eosinophils/100 WBC (Bld) 5.0 % Normal 0-5 [facility] Comment on above: Performed By: #### L 500.2500, L100.0100 ####[facility] [address] [place], [address] Erythrocyte distribution width (RBC) [Ratio] 13.2 % Normal 11.6-14.6 [facility] Comment on above: Performed By: #### L 500.2500, L100.0100 ####[facility] [address] [place], [address] Hematocrit (Bld) [Volume fraction] 32.6 % Low 37-47 [facility] Comment on above: Performed By: #### L 500.2500, L100.0100 ####[facility] [address] [place], [address] Hemoglobin (Bld) [Mass/Vol] 11.0 g/dL Low 12.0-15.0 [facility] Comment on above: Performed By: #### L 500.2500, L100.0100 ####[facility] [address] [place], [address] IG% 0.500 Normal 0.0-0.9 [facility] Comment on above: Result Comment: IG% - Immature Granulocytes (promyelocytes, myelocytes andmetamyelocytes) > 1% indicates that a LEFT SHIFT is Present. Performed By: #### L 500.2500, L100.0100 ####[facility] [address] [place], [address] Lymphocytes/100 WBC (Bld) 14.9 % Low 19-41 [facility] Comment on above: Performed By: #### L 500.2500, L100.0100 ####[facility] [address] [place], [address] MCH (RBC) [Entitic mass] 29.4 pg Normal 27.0-32.0 [facility] Comment on above: Performed By: #### L 500.2500, L100.0100 ####[facility] [address] [place], [address] MCHC (RBC) [Mass/Vol] 33.7 g/dL Normal 32-36 [facility] Comment on above: Performed By: #### L 500.2500, L100.0100 ####[facility] [address] [place], [address] MCV (RBC) [Entitic vol] 87.2 fL Normal 81-99 [facility] Comment on above: Performed By: #### L 500.2500, L100.0100 ####[facility] [address] [place], [address] Monocytes/100 WBC (Bld) 9.3 % Normal 0-10 [facility] Comment on above: Performed By: #### L 500.2500, L100.0100 ####[facility] [address] [place], [address] Neutrophils/100 WBC (Bld) 70.0 % Normal 47-70 [facility] Comment on above: Performed By: #### L 500.2500, L100.0100 ####[facility] [address] [place], [address] Nucleated RBC (Bld) [#/Vol] 0 10*3/uL Normal 0-5 [facility] Comment on above: Performed By: #### L 500.2500, L100.0100 ####[facility] [address] [place], [address] Platelet mean volume (Bld) [Entitic vol] 9.8 fL Normal 6.2-12.0 [facility] Comment on above: Performed By: #### L 500.2500, L100.0100 ####[facility] [address] [place], [address] Platelets (Bld) [#/Vol] 290 10*3/uL Normal 150-450 [facility] Comment on above: Performed By: #### L 500.2500, L100.0100 ####[facility] [address] [place], [address] RBC (Bld) [#/Vol] 3.74 10*6/uL Low 4.2-5.4 [facility] Comment on above: Performed By: #### L 500.2500, L100.0100 ####[facility] [address] [place], [address] RDW SD 41.7 fl Normal 35.1-43.9 [facility] Comment on above: Performed By: #### L 500.2500, L100.0100 ####[facility] [address] [place], [address] WBC (Bld) [#/Vol] 6.3 10*3/uL Normal 4.4-11.0 [facility] Comment on above: Performed By: #### L 500.2500, L100.0100 ####[facility] [address] [place], [address] Absolute Neut Normal 2.0-7.7 [facility] Comment on above: Result Comment: Canc elled via OM: Order cancelled - Patient discharged Performed By: #### L 100.0100, L500.2500 ####[facility] [address] [place], [address] HCT Normal 37-47 [facility] Comment on above: Result Comment: Canc elled via OM: Order cancelled - Patient discharged Performed By: #### L 100.0100, L500.2500 ####[facility] [address] [place], [address] HGB Normal 12.0-15.0 [facility] Comment on above: Result Comment: Canc elled via OM: Order cancelled - Patient discharged Performed By: #### L 100.0100, L500.2500 ####[facility] [address] [place], [address] MCH Normal 27.0-32.0 [facility] Comment on above: Result Comment: Canc elled via OM: Order cancelled - Patient discharged Performed By: #### L 100.0100, L500.2500 ####[facility] [address] [place], [address] MCHC Normal 32-36 [facility] Comment on above: Result Comment: Canc elled via OM: Order cancelled - Patient discharged Performed By: #### L 100.0100, L500.2500 ####[facility] [address] [place], [address] MCV Normal 81-99 [facility] Comment on above: Result Comment: Canc elled via OM: Order cancelled - Patient discharged Performed By: #### L 100.0100, L500.2500 ####[facility] [address] [place], [address] NEUT% Normal 47-70 [facility] Comment on above: Result Comment: Canc elled via OM: Order cancelled - Patient discharged Performed By: #### L 100.0100, L500.2500 ####[facility] [address] [place], [address] PLT Normal 150-450 [facility] Comment on above: Result Comment: Canc elled via OM: Order cancelled - Patient discharged Performed By: #### L 100.0100, L500.2500 ####[facility] [address] [place], [address] RBC Normal 4.2-5.4 [facility] Comment on above: Result Comment: Canc elled via OM: Order cancelled - Patient discharged Performed By: #### L 100.0100, L500.2500 ####[facility] [address] [place], [address] RDW CV Normal 11.6-14.6 [facility] Comment on above: Result Comment: Canc elled via OM: Order cancelled - Patient discharged Performed By: #### L 100.0100, L500.2500 ####[facility] [address] [place], [address] RDW SD Normal 35.1-43.9 [facility] Comment on above: Result Comment: Canc elled via OM: Order cancelled - Patient discharged Performed By: #### L 100.0100, L500.2500 ####[facility] [address] [place], [address] WBC Normal 4.4-11.0 [facility] Comment on above: Result Comment: Canc elled via OM: Order cancelled - Patient discharged Performed By: #### L 100.0100, L500.2500 ####[facility] [address] [place], [address] Absolute neutrophil countOrd ered By: Montse Cabrera on 12-11-2024 Neutrophils (Bld) [#/Vol] 5.7 10*3/uL 2.0-7.7 [facility] Anion gap in Serum or Plasma Ordered By: Montse Cabrera on 12-11-2024 Anion gap [Moles/Vol] 12 mmol/L 5-15 [facility] BUN/creatinine ratioOrdered By: Montse Cabrera on 12-11-2024 Urea nitrogen/Creatinine [Mass ratio] 24.2 mg/mg High 07-13 [facility] Basic Metabolic Profile (BMP )on 12-11-2024 BUN/CRE 24.2 RATIO High 07-13 [facility] Comment on above: Performed By: #### L 500.2500, L100.0100 ####[facility] [address] [place], [address] Calcium [Mass/Vol] 9.1 mg/dL Normal 7.6-11.0 [facility] Comment on above: Performed By: #### L 500.2500, L100.0100 ####[facility] [address] [place], [address] Chloride [Moles/Vol] 91 mmol/L Low 98-108 [facility] Comment on above: Performed By: #### L 500.2500, L100.0100 ####[facility] [address] [place], [address] CO2 [Moles/Vol] 18.5 mmol/L Low 21.0-32.0 [facility] Comment on above: Performed By: #### L 500.2500, L100.0100 ####[facility] [address] [place], [address] Creatinine [Mass/Vol] 0.95 mg/dL Normal 0.70-1.20 [facility] Comment on above: Performed By: #### L 500.2500, L100.0100 ####[facility] [address] [place], [address] ECRCL 49.52 ml/min Low 50-250 [facility] Comment on above: Performed By: #### L 500.2500, L100.0100 ####[facility] [address] [place], [address] GAP 12 Normal 5-15 [facility] Comment on above: Performed By: #### L 500.2500, L100.0100 ####[facility] [address] [place], [address] GFR/1.73 sq M.predicted among non-blacks MDRD (S/P/Bld) [Vol rate/Area] 60 mL/min/{1.73_m2} Normal >60 [facility] Comment on above: Result Comment: mL/m in/1.73m2 CKD-EPI Creatinine Equation (2020) Performed By: #### L 500.2500, L100.0100 ####[facility] [address] [place], [address] Glucose [Mass/Vol] 108 mg/dL High 70-99 [facility] Comment on above: Performed By: #### L 500.2500, L100.0100 ####[facility] [address] [place], [address] Potassium [Moles/Vol] 4.7 mmol/L Normal 3.3-5.1 [facility] Comment on above: Performed By: #### L 500.2500, L100.0100 ####[facility] [address] [place], [address] Sodium [Moles/Vol] 122 mmol/L Low 133-145 [facility] Comment on above: Performed By: #### L 500.2500, L100.0100 ####[facility] [address] [place], [address] Urea nitrogen [Mass/Vol] 23 mg/dL High 4-19 [facility] Comment on above: Performed By: #### L 500.2500, L100.0100 ####[facility] [address] [place], [address] Basophil percentageOrdered B y: Montse Cabrera on 12-11-2024 Basophils/100 WBC (Bld) 0.4 % 0-1 [facility] CBC W/Diff, Automatedon 03-2 0-2024 Absolute Lymph 0.65 X10 3/uL Low 0.83-4.51 [facility] Comment on above: Performed By: #### L 500.2500, L100.0100 ####[facility] [address] [place], [address] Absolute Neut 5.7 X10 3/uL Normal 2.0-7.7 [facility] Comment on above: Performed By: #### L 500.2500, L100.0100 ####[facility] [address] [place], [address] Basophils/100 WBC (Bld) 0.4 % Normal 0-1 [facility] Comment on above: Performed By: #### L 500.2500, L100.0100 ####[facility] [address] [place], [address] Eosinophils/100 WBC (Bld) 1.5 % Normal 0-5 [facility] Comment on above: Performed By: #### L 500.2500, L100.0100 ####[facility] [address] [place], [address] Erythrocyte distribution width (RBC) [Ratio] 12.7 % Normal 11.6-14.6 [facility] Comment on above: Performed By: #### L 500.2500, L100.0100 ####[facility] [address] [place], [address] Hematocrit (Bld) [Volume fraction] 35.0 % Low 37-47 [facility] Comment on above: Performed By: #### L 500.2500, L100.0100 ####[facility] [address] [place], [address] Hemoglobin (Bld) [Mass/Vol] 12.0 g/dL Normal 12.0-15.0 [facility] Comment on above: Performed By: #### L 500.2500, L100.0100 ####[facility] [address] [place], [address] IG% 0.700 Normal 0.0-0.9 [facility] Comment on above: Result Comment: IG% - Immature Granulocytes (promyelocytes, myelocytes andmetamyelocytes) > 1% indicates that a LEFT SHIFT is Present. Performed By: #### L 500.2500, L100.0100 ####[facility] [address] [place], [address] Lymphocytes/100 WBC (Bld) 9.1 % Low 19-41 [facility] Comment on above: Performed By: #### L 500.2500, L100.0100 ####[facility] [address] [place], [address] MCH (RBC) [Entitic mass] 29.3 pg Normal 27.0-32.0 [facility] Comment on above: Performed By: #### L 500.2500, L100.0100 ####[facility] [address] [place], [address] MCHC (RBC) [Mass/Vol] 34.3 g/dL Normal 32-36 [facility] Comment on above: Performed By: #### L 500.2500, L100.0100 ####[facility] [address] [place], [address] MCV (RBC) [Entitic vol] 85.6 fL Normal 81-99 [facility] Comment on above: Performed By: #### L 500.2500, L100.0100 ####[facility] [address] [place], [address] Monocytes/100 WBC (Bld) 8.5 % Normal 0-10 [facility] Comment on above: Performed By: #### L 500.2500, L100.0100 ####[facility] [address] [place], [address] Neutrophils/100 WBC (Bld) 79.8 % High 47-70 [facility] Comment on above: Performed By: #### L 500.2500, L100.0100 ####[facility] [address] [place], [address] Nucleated RBC (Bld) [#/Vol] 0 10*3/uL Normal 0-5 [facility] Comment on above: Performed By: #### L 500.2500, L100.0100 ####[facility] [address] [place], [address] Platelet mean volume (Bld) [Entitic vol] 9.8 fL Normal 6.2-12.0 [facility] Comment on above: Performed By: #### L 500.2500, L100.0100 ####[facility] [address] [place], [address] Platelets (Bld) [#/Vol] 277 10*3/uL Normal 150-450 [facility] Comment on above: Performed By: #### L 500.2500, L100.0100 ####[facility] [address] [place], [address] RBC (Bld) [#/Vol] 4.09 10*6/uL Low 4.2-5.4 [facility] Comment on above: Performed By: #### L 500.2500, L100.0100 ####[facility] [address] [place], [address] RDW SD 39.5 fl Normal 35.1-43.9 [facility] Comment on above: Performed By: #### L 500.2500, L100.0100 ####[facility] [address] [place], [address] WBC (Bld) [#/Vol] 7.2 10*3/uL Normal 4.4-11.0 [facility] Comment on above: Performed By: #### L 500.2500, L100.0100 ####[facility] [address] [place], [address] Carbon dioxide, total [Moles /volume] in Central venous bloodOrdered By: Montse Cabrera on 12-11-2024 CO2 [Moles/Vol] 18.5 mmol/L Low 21.0-32.0 [facility] Chloride assayOrdered By: Neela Cabrera on 12-11-2024 Chloride [Moles/Vol] 91 mmol/L Low 98-108 [facility] Eosinophil percentageOrdered By: Montse Cabrera on 12-11-2024 Eosinophils/100 WBC (Bld) 1.5 % 0-5 [facility] Erythrocyte distribution wid th ratioOrdered By: Montse Cabrera on 12-11-2024 Erythrocyte distribution width (RBC) [Ratio] 12.7 % 11.6-14.6 [facility] Erythrocyte distribution wid th standard deviationOrdered By: Montse Cabrera on 12-11-2024 Erythrocyte distribution width (RBC) [Entitic vol] 39.5 fL 35.1-43.9 [facility] Estimation of creatinine clemencia aranceOrdered By: Montse Cabrera on 12-11-2024 Estimated Creatinine Clearance Calc 49.52 ml/min Low 50-250 [facility] GFR/1.73 sq M.predicted stephen g non-blacks MDRD (S/P/Bld) [Vol rate/Area]Ordered By: Montse Cabrera on 12-11-2024 Estimated GFR (MDRD) Non-Af Amer 60 >60 [facility] Comment on above: mL/min/1.73m2 CKD-EP I Creatinine Equation (2020) Hematocrit Auto (Bld) [Volum e fraction]Ordered By: Montse Cabrera 12-11-2024 Hematocrit (Bld) [Volume fraction] 35.0 % Low 37-47 [facility] Hemoglobin measurementOrdere d By: Montse Cabrera on 12-11-2024 Hemoglobin (Bld) [Mass/Vol] 12.0 g/dL 12.0-15.0 [facility] Immature granulocytes/100 WB C Auto (Bld)Ordered By: Montse Cabrera on 12-11-2024 Immature granulocytes/100 WBC (Bld) 0.700 % 0.0-0.9 [facility] Comment on above: IG% - Immature Granu locytes (promyelocytes, myelocytes and metamyelocytes) > 1% indicates that a LEFT SHIFT is Present. Lymphocytes Auto (Unsp spec) [#/Vol]Ordered By: Montse Cabrera on 12-11-2024 Lymphocytes (Bld) [#/Vol] 0.65 10*3/uL Low 0.83-4.51 [facility] Lymphocytes/100 WBC Auto (Un sp spec)Ordered By: Montse Cabrera on 12-11-2024 Lymphocytes/100 WBC (Bld) 9.1 % Low 19-41 [facility] MCV (mean corpuscular volume ) determinationOrdered By: Montse Cabrera on 12-11-2024 MCV (RBC) [Entitic vol] 85.6 fL 81-99 [facility] Mean corpuscular hemoglobin (MCH) determinationOrdered By: Montse Cabrera on 12-11-2024 MCH (RBC) [Entitic mass] 29.3 pg 27.0-32.0 [facility] Mean corpuscular hemoglobin concentration (MCHC) determinationOrdered By: Montse Cabrera on 12-11-2024 MCHC (RBC) [Mass/Vol] 34.3 g/dL 32-36 [facility] Mean platelet volume determi nationOrdered By: Montse Cabrera on 12-11-2024 Platelet mean volume (Bld) [Entitic vol] 9.8 fL 6.2-12.0 [facility] Monocyte percentageOrdered B y: Montse Cabrera on 12-11-2024 Monocytes/100 WBC (Bld) 8.5 % 0-10 [facility] Neutrophil percentageOrdered By: Montse Cabrera on 12-11-2024 Neutrophils/100 WBC (Bld) 79.8 % High 47-70 [facility] Nucleated red blood cell per centageOrdered By: Montse Cabrera on 12-11-2024 Nucleated RBC/100 WBC (Bld) [Ratio] 0 % 0-5 [facility] Platelet countOrdered By: Neela Cabrera on 12-11-2024 Platelets (Bld) [#/Vol] 277 10*3/uL 150-450 [facility] Potassium (Unsp spec) [Mass/ Vol]Ordered By: Montse Cabrera on 12-11-2024 Potassium [Moles/Vol] 4.7 mmol/L 3.3-5.1 [facility] RBC Auto (Bld) [#/Vol]Ordere d By: Montse Cabrera on 12-11-2024 RBC (Bld) [#/Vol] 4.09 10*6/uL Low 4.2-5.4 [facility] Serum creatinine measurement (mass/volume)Ordered By: Montse Cabrera on 12-11-2024 Creatinine [Mass/Vol] 0.95 mg/dL 0.70-1.20 [facility] Serum glucose measurement (m ass/volume)Ordered By: Montse Cabrera on 12-11-2024 Glucose [Mass/Vol] 108 mg/dL High 70-99 [facility] Serum or plasma calcium cindy urement (mass/volume)Ordered By: Montse Cabrera on 12-11-2024 Calcium [Mass/Vol] 9.1 mg/dL 7.6-11.0 [facility] Serum or plasma urea nitroge n measurement (mass/volume)Ordered By: Montse Cabrera on 12-11-2024 Urea nitrogen [Mass/Vol] 23 mg/dL High 4-19 [facility] Sodium levelOrdered By: Montse Cabrera on 12-11-2024 Sodium [Moles/Vol] 122 mmol/L Low 133-145 [facility] White blood cell (WBC) count Ordered By: Montse Cabrera on 12-11-2024 WBC (Bld) [#/Vol] 7.2 10*3/uL 4.4-11.0 [facility] Basic Metabolic Profile (BMP )on 12-10-2024 BUN/CRE 28.0 RATIO High 10-20 [facility] Comment on above: Performed By: #### L 500.2500 ####[facility] [address] [place], [address] Calcium [Mass/Vol] 8.8 mg/dL Normal 7.6-11.0 [facility] Comment on above: Performed By: #### L 500.2500 ####[facility] [address] [place], [address] Chloride [Moles/Vol] 88 mmol/L Low 98-108 [facility] Comment on above: Performed By: #### L 500.2500 ####[facility] [address] [place], [address] CO2 [Moles/Vol] 18.5 mmol/L Low 21.0-32.0 [facility] Comment on above: Performed By: #### L 500.2500 ####[facility] [address] [place], [address] Creatinine [Mass/Vol] 0.67 mg/dL Low 0.70-1.20 [facility] Comment on above: Performed By: #### L 500.2500 ####[facility] [address] [place], [address] ECRCL 58.80 ml/min Normal 50-250 [facility] Comment on above: Performed By: #### L 500.2500 ####[facility] [address] [place], [address] GAP 12 Normal 5-15 [facility] Comment on above: Performed By: #### L 500.2500 ####[facility] [address] [place], [address] GFR/1.73 sq M.predicted among non-blacks MDRD (S/P/Bld) [Vol rate/Area] 88 mL/min/{1.73_m2} Normal >60 [facility] Comment on above: Result Comment: mL/m in/1.73m2 CKD-EPI Creatinine Equation (2020) Performed By: #### L 500.2500 ####[facility] [address] [place], [address] Glucose [Mass/Vol] 110 mg/dL High 70-99 [facility] Comment on above: Performed By: #### L 500.2500 ####[facility] [address] [place], [address] Potassium [Moles/Vol] 4.4 mmol/L Normal 3.3-5.1 [facility] Comment on above: Performed By: #### L 500.2500 ####[facility] [address] [place], [address] Sodium [Moles/Vol] 118 mmol/L Invalid Interpretation Code 133-145 [facility] Comment on above: Result Comment: Crit ical Result(s) Called at 1534: TO KSHANK by:KCLAPPER??Results read back by same. Performed By: #### L 500.2500 ####[facility] [address] [place], [address] Urea nitrogen [Mass/Vol] 19 mg/dL Normal 4-19 [facility] Comment on above: Performed By: #### L 500.2500 ####[facility] [address] [place], [address] BUN/CRE 29.0 RATIO High 10-20 [facility] Comment on above: Performed By: #### L 100.0100, L500.2500 ####[facility] [address] [place], [address] Calcium [Mass/Vol] 8.6 mg/dL Normal 7.6-11.0 [facility] Comment on above: Performed By: #### L 100.0100, L500.2500 ####[facility] [address] [place], [address] Chloride [Moles/Vol] 91 mmol/L Low 98-108 [facility] Comment on above: Performed By: #### L 100.0100, L500.2500 ####[facility] [address] [place], [address] CO2 [Moles/Vol] 19.4 mmol/L Low 21.0-32.0 [facility] Comment on above: Performed By: #### L 100.0100, L500.2500 ####[facility] [address] [place], [address] Creatinine [Mass/Vol] 0.70 mg/dL Normal 0.70-1.20 [facility] Comment on above: Performed By: #### L 100.0100, L500.2500 ####[facility] [address] [place], [address] ECRCL 58.80 ml/min Normal 50-250 [facility] Comment on above: Performed By: #### L 100.0100, L500.2500 ####[facility] [address] [place], [address] GAP 9 Normal 5-15 [facility] Comment on above: Performed By: #### L 100.0100, L500.2500 ####[facility] [address] [place], [address] GFR/1.73 sq M.predicted among non-blacks MDRD (S/P/Bld) [Vol rate/Area] 87 mL/min/{1.73_m2} Normal >60 [facility] Comment on above: Result Comment: mL/m in/1.73m2 CKD-EPI Creatinine Equation (2020) Performed By: #### L 100.0100, L500.2500 ####[facility] [address] [place], [address] Glucose [Mass/Vol] 111 mg/dL High 70-99 [facility] Comment on above: Performed By: #### L 100.0100, L500.2500 ####[facility] [address] [place], [address] Potassium [Moles/Vol] 4.5 mmol/L Normal 3.3-5.1 [facility] Comment on above: Performed By: #### L 100.0100, L500.2500 ####[facility] [address] [place], [address] Sodium [Moles/Vol] 119 mmol/L Invalid Interpretation Code 133-145 [facility] Comment on above: Result Comment: Crit ical Result(s) Called at:0625by: MIREYA HAVEN TO MANUEL??Results read back by same. Performed By: #### L 100.0100, L500.2500 ####[facility] [address] [place], [address] Urea nitrogen [Mass/Vol] 20 mg/dL High 4-19 [facility] Comment on above: Performed By: #### L 100.0100, L500.2500 ####[facility] [address] [place], [address] CBC W/Diff, Automatedon 11-22 Absolute Lymph 0.92 X10 3/uL Normal 0.83-4.51 [facility] Comment on above: Performed By: #### L 100.0100, L500.2500 ####[facility] [address] [place], [address] Absolute Neut 5.5 X10 3/uL Normal 2.0-7.7 [facility] Comment on above: Performed By: #### L 100.0100, L500.2500 ####[facility] [address] [place], [address] Basophils/100 WBC (Bld) 0.3 % Normal 0-1 [facility] Comment on above: Performed By: #### L 100.0100, L500.2500 ####[facility] [address] [place], [address] Eosinophils/100 WBC (Bld) 2.5 % Normal 0-5 [facility] Comment on above: Performed By: #### L 100.0100, L500.2500 ####[facility] [address] [place], [address] Erythrocyte distribution width (RBC) [Ratio] 12.8 % Normal 11.6-14.6 [facility] Comment on above: Performed By: #### L 100.0100, L500.2500 ####[facility] [address] [place], [address] Hematocrit (Bld) [Volume fraction] 34.0 % Low 37-47 [facility] Comment on above: Performed By: #### L 100.0100, L500.2500 ####[facility] [address] [place], [address] Hemoglobin (Bld) [Mass/Vol] 11.7 g/dL Low 12.0-15.0 [facility] Comment on above: Performed By: #### L 100.0100, L500.2500 ####[facility] [address] [place], [address] IG% 0.400 Normal 0.0-0.9 [facility] Comment on above: Result Comment: IG% - Immature Granulocytes (promyelocytes, myelocytes andmetamyelocytes) > 1% indicates that a LEFT SHIFT is Present. Performed By: #### L 100.0100, L500.2500 ####[facility] [address] [place], [address] Lymphocytes/100 WBC (Bld) 12.7 % Low 19-41 [facility] Comment on above: Performed By: #### L 100.0100, L500.2500 ####[facility] [address] [place], [address] MCH (RBC) [Entitic mass] 29.1 pg Normal 27.0-32.0 [facility] Comment on above: Performed By: #### L 100.0100, L500.2500 ####[facility] [address] [place], [address] MCHC (RBC) [Mass/Vol] 34.4 g/dL Normal 32-36 [facility] Comment on above: Performed By: #### L 100.0100, L500.2500 ####[facility] [address] [place], [address] MCV (RBC) [Entitic vol] 84.6 fL Normal 81-99 [facility] Comment on above: Performed By: #### L 100.0100, L500.2500 ####[facility] [address] [place], [address] Monocytes/100 WBC (Bld) 8.1 % Normal 0-10 [facility] Comment on above: Performed By: #### L 100.0100, L500.2500 ####[facility] [address] [place], [address] Neutrophils/100 WBC (Bld) 76.0 % High 47-70 [facility] Comment on above: Performed By: #### L 100.0100, L500.2500 ####[facility] [address] [place], [address] Nucleated RBC (Bld) [#/Vol] 0 10*3/uL Normal 0-5 [facility] Comment on above: Performed By: #### L 100.0100, L500.2500 ####[facility] [address] [place], [address] Platelet mean volume (Bld) [Entitic vol] 9.5 fL Normal 6.2-12.0 [facility] Comment on above: Performed By: #### L 100.0100, L500.2500 ####[facility] [address] [place], [address] Platelets (Bld) [#/Vol] 255 10*3/uL Normal 150-450 [facility] Comment on above: Performed By: #### L 100.0100, L500.2500 ####[facility] [address] [place], [address] RBC (Bld) [#/Vol] 4.02 10*6/uL Low 4.2-5.4 [facility] Comment on above: Performed By: #### L 100.0100, L500.2500 ####[facility] [address] [place], [address] RDW SD 39.2 fl Normal 35.1-43.9 [facility] Comment on above: Performed By: #### L 100.0100, L500.2500 ####[facility] [address] [place], [address] WBC (Bld) [#/Vol] 7.3 10*3/uL Normal 4.4-11.0 [facility] Comment on above: Performed By: #### L 100.0100, L500.2500 ####[facility] [address] [place], [address] Consultation - Nephrologyon 12-10-2024 Consultation - Nephrology Normal [facility] Basic Metabolic Profile (BMP )on 12-09-2024 BUN/CRE 30.0 RATIO High 10-20 [facility] Comment on above: Performed By: #### L 500.2500 ####[facility] [address] [place], [address] Calcium [Mass/Vol] 8.8 mg/dL Normal 7.6-11.0 [facility] Comment on above: Performed By: #### L 500.2500 ####[facility] [address] [place], [address] Chloride [Moles/Vol] 89 mmol/L Low 98-108 [facility] Comment on above: Performed By: #### L 500.2500 ####[facility] [address] [place], [address] CO2 [Moles/Vol] 21.0 mmol/L Normal 21.0-32.0 [facility] Comment on above: Performed By: #### L 500.2500 ####[facility] [address] [place], [address] Creatinine [Mass/Vol] 0.75 mg/dL Normal 0.70-1.20 [facility] Comment on above: Performed By: #### L 500.2500 ####[facility] [address] [place], [address] ECRCL 58.80 ml/min Normal 50-250 [facility] Comment on above: Performed By: #### L 500.2500 ####[facility] [address] [place], [address] GAP 8 Normal 5-15 [facility] Comment on above: Performed By: #### L 500.2500 ####[facility] [address] [place], [address] GFR/1.73 sq M.predicted among non-blacks MDRD (S/P/Bld) [Vol rate/Area] 80 mL/min/{1.73_m2} Normal >60 [facility] Comment on above: Result Comment: mL/m in/1.73m2 CKD-EPI Creatinine Equation (2020) Performed By: #### L 500.2500 ####[facility] [address] [place], [address] Glucose [Mass/Vol] 105 mg/dL High 70-99 [facility] Comment on above: Performed By: #### L 500.2500 ####[facility] [address] [place], [address] Potassium [Moles/Vol] 4.4 mmol/L Normal 3.3-5.1 [facility] Comment on above: Performed By: #### L 500.2500 ####[facility] [address] [place], [address] Sodium [Moles/Vol] 118 mmol/L Invalid Interpretation Code 133-145 [facility] Comment on above: Result Comment: Crit ical Result(s) Called ACOLE at: 1605 by:PHILLIP??Results read back by same. Performed By: #### L 500.2500 ####[facility] [address] [place], [address] Urea nitrogen [Mass/Vol] 22 mg/dL High 4-19 [facility] Comment on above: Performed By: #### L 500.2500 ####[facility] [address] [place], [place], [id number](312) Osmolality (U) [Osmolality]O rdered By: Montse Cabrera on 12-09-2024 Urine Osmolality 661 mOsm/KG >50 [facility] Comment on above: Normal Urine Referen ce Ranges Random: 50 - 1200 mOsm/kg H20 depending on fluid intake Random: >850 mOsm/kg after 12 hour fluid restriction 24 hour: ~300 - 900 mOsm/kg H2O Osmolality, Serumon 12-10-19 25 OSMOLALITY,SER 257 mOsm/KG Low 280-301 [facility] Comment on above: Performed By: #### L 501.7300 ####[facility] [address] [facility] [place], [place], [phone]([phone] Osmolality, Urineon 12-10-19 25 OSMOLALITY,UR 661 mOsm/KG Normal [facility] Comment on above: Result Comment: Norm al Urine Reference Ranges Random: 50 - 1200 mOsm/kg H20 depending on fluid intake Random: >850 mOsm/kg after 12 hour fluid restriction 24 hour: 300 - 900 mOsm/kg H2O Performed By: #### L 501.7400, L501.5500 ####[facility] [address] [facility] [place], [address] Osmolality, serumOrdered By: Montse Cabrera on 12-09-2024 Serum Osmolality 257 mOsm/KG Low 280-301 [facility] Sodium Levelon 12-09-2024 Sodium [Moles/Vol] 118 mmol/L Invalid Interpretation Code 133-145 [facility] Comment on above: Result Comment: Crit ical Result(s) Called at:2320 by: MIREYA MORALES??Results read back by same. Performed By: #### L 501.5300 ####[facility] [address] [facility]. [place], [place], [phone] Urine sodium measurement (mo les/volume)Ordered By: Montse Cabrera on 12-09-2024 Sodium (U) [Moles/Vol] 22 mmol/L Normal Not Establ. [facility] Comment on above: Performed By: #### L 501.7400, L501.5500 ####[facility] [address] [place], [address] Basic Metabolic Profile (BMP )on 12-08-2024 BUN/CRE 30.4 RATIO High 10-20 [facility] Comment on above: Performed By: #### L 500.2500, L100.0100 ####[facility] [address] [place], [address] Calcium [Mass/Vol] 9.0 mg/dL Normal 7.6-11.0 [facility] Comment on above: Performed By: #### L 500.2500, L100.0100 ####[facility] [address] [place], [address] Chloride [Moles/Vol] 94 mmol/L Low 98-108 [facility] Comment on above: Performed By: #### L 500.2500, L100.0100 ####[facility] [address] [place], [address] CO2 [Moles/Vol] 22.7 mmol/L Normal 21.0-32.0 [facility] Comment on above: Performed By: #### L 500.2500, L100.0100 ####[facility] [address] [place], [address] Creatinine [Mass/Vol] 0.84 mg/dL Normal 0.70-1.20 [facility] Comment on above: Performed By: #### L 500.2500, L100.0100 ####[facility] [address] [place], [address] ECRCL 56.00 ml/min Normal 50-250 [facility] Comment on above: Performed By: #### L 500.2500, L100.0100 ####[facility] [address] [place], [address] GAP 9 Normal 5-15 [facility] Comment on above: Performed By: #### L 500.2500, L100.0100 ####[facility] [address] [place], [address] GFR/1.73 sq M.predicted among non-blacks MDRD (S/P/Bld) [Vol rate/Area] 70 mL/min/{1.73_m2} Normal >60 [facility] Comment on above: Result Comment: mL/m in/1.73m2 CKD-EPI Creatinine Equation (2020) Performed By: #### L 500.2500, L100.0100 ####[facility] [address] [place], [address] Glucose [Mass/Vol] 134 mg/dL High 70-99 [facility] Comment on above: Performed By: #### L 500.2500, L100.0100 ####[facility] [address] [place], [address] Potassium [Moles/Vol] 3.8 mmol/L Normal 3.3-5.1 [facility] Comment on above: Performed By: #### L 500.2500, L100.0100 ####[facility] [address] [place], [address] Sodium [Moles/Vol] 125 mmol/L Low 133-145 [facility] Comment on above: Performed By: #### L 500.2500, L100.0100 ####[facility] [address] [place], [address] Urea nitrogen [Mass/Vol] 26 mg/dL High 4-19 [facility] Comment on above: Performed By: #### L 500.2500, L100.0100 ####[facility] [address] [place], [address] CBC W/Diff, Automatedon - Absolute Lymph 0.99 X10 3/uL Normal 0.83-4.51 [facility] Comment on above: Performed By: #### L 500.2500, L100.0100 ####[facility] [address] [place], [address] Absolute Neut 7.0 X10 3/uL Normal 2.0-7.7 [facility] Comment on above: Performed By: #### L 500.2500, L100.0100 ####[facility] [address] [place], [address] Basophils/100 WBC (Bld) 0.2 % Normal 0-1 [facility] Comment on above: Performed By: #### L 500.2500, L100.0100 ####[facility] [address] [place], [address] Eosinophils/100 WBC (Bld) 1.4 % Normal 0-5 [facility] Comment on above: Performed By: #### L 500.2500, L100.0100 ####[facility] [address] [place], [address] Erythrocyte distribution width (RBC) [Ratio] 13.0 % Normal 11.6-14.6 [facility] Comment on above: Performed By: #### L 500.2500, L100.0100 ####[facility] [address] [place], [address] Hematocrit (Bld) [Volume fraction] 37.9 % Normal 37-47 [facility] Comment on above: Performed By: #### L 500.2500, L100.0100 ####[facility] [address] [place], [address] Hemoglobin (Bld) [Mass/Vol] 12.6 g/dL Normal 12.0-15.0 [facility] Comment on above: Performed By: #### L 500.2500, L100.0100 ####[facility] [address] [place], [address] IG% 0.300 Normal 0.0-0.9 [facility] Comment on above: Result Comment: IG% - Immature Granulocytes (promyelocytes, myelocytes andmetamyelocytes) > 1% indicates that a LEFT SHIFT is Present. Performed By: #### L 500.2500, L100.0100 ####[facility] [address] [place], [address] Lymphocytes/100 WBC (Bld) 11.2 % Low 19-41 [facility] Comment on above: Performed By: #### L 500.2500, L100.0100 ####[facility] [address] [place], [address] MCH (RBC) [Entitic mass] 29.2 pg Normal 27.0-32.0 [facility] Comment on above: Performed By: #### L 500.2500, L100.0100 ####[facility] [address] [place], [address] MCHC (RBC) [Mass/Vol] 33.2 g/dL Normal 32-36 [facility] Comment on above: Performed By: #### L 500.2500, L100.0100 ####[facility] [address] [place], [address] MCV (RBC) [Entitic vol] 87.9 fL Normal 81-99 [facility] Comment on above: Performed By: #### L 500.2500, L100.0100 ####[facility] [address] [place], [address] Monocytes/100 WBC (Bld) 7.2 % Normal 0-10 [facility] Comment on above: Performed By: #### L 500.2500, L100.0100 ####[facility] [address] [place], [address] Neutrophils/100 WBC (Bld) 79.7 % High 47-70 [facility] Comment on above: Performed By: #### L 500.2500, L100.0100 ####[facility] [address] [place], [address] Nucleated RBC (Bld) [#/Vol] 0 10*3/uL Normal 0-5 [facility] Comment on above: Performed By: #### L 500.2500, L100.0100 ####[facility] [address] [place], [address] Platelet mean volume (Bld) [Entitic vol] 9.3 fL Normal 6.2-12.0 [facility] Comment on above: Performed By: #### L 500.2500, L100.0100 ####[facility] [address] [place], [address] Platelets (Bld) [#/Vol] 248 10*3/uL Normal 150-450 [facility] Comment on above: Performed By: #### L 500.2500, L100.0100 ####[facility] [address] [place], [address] RBC (Bld) [#/Vol] 4.31 10*6/uL Normal 4.2-5.4 [facility] Comment on above: Performed By: #### L 500.2500, L100.0100 ####[facility] [address] [place], [address] RDW SD 42.1 fl Normal 35.1-43.9 [facility] Comment on above: Performed By: #### L 500.2500, L100.0100 ####[facility] [address] [place], [address] WBC (Bld) [#/Vol] 8.8 10*3/uL Normal 4.4-11.0 [facility] Comment on above: Performed By: #### L 500.2500, L100.0100 ####[facility] [address] [place], [address] Electrocardiogram reportOrde red By: Wally So on 12-08-2024 EKG study [facility] Cardiovascular Services [address] [place] [address] 12 Lead EKG 12/06/24 1749 MR#: [id number] Acct: [id number] Name: JERO LEWIS Rep #:[id number] : 1945 79 From: Wally So MD [...] Abnormal ECG Confirmed by WALLY SO MD ([id number]), book editor SHALINI LOUIS ([id number]) on 12/08/2024 8:18:25 AM Referred By: WRT Confirmed By: WALLY SO MD 12/08/24 0818 Date _ Wally So MD CC: Dr. Argelia Darby DO; Dr. Montse Cabrera MD; MEKHI Raza ~ Signed [facility] Other Phone: Bilirubin directOrdered By: Sandro Jackman on 12-07-2024 Bilirubin.direct [Mass/Vol] 0.29 mg/dL 0.00-0.30 [facility] Bilirubin, Directon 12-08-19 25 Bilirubin.direct [Mass/Vol] 0.29 mg/dL Normal 0.00-0.30 [facility] Comment on above: Performed By: #### L 501.5200, L501.2300, L100.0100, L501.4700, L500.4050, L300.3900, L501.9520 ####[facility] [address] [place], [address] Bilirubin, totalOrdered By: Sandro Jackman on 12-07-2024 Bilirubin [Mass/Vol] 0.68 mg/dL 0.00-1.30 [facility] CBC W/Diff, Automatedon 11-22 Absolute Lymph 0.97 X10 3/uL Normal 0.83-4.51 [facility] Comment on above: Performed By: #### L 501.5200, L501.2300, L100.0100, L501.4700, L500.4050, L300.3900, L501.9520 ####[facility] [address] [place], [address] Absolute Neut 5.7 X10 3/uL Normal 2.0-7.7 [facility] Comment on above: Performed By: #### L 501.5200, L501.2300, L100.0100, L501.4700, L500.4050, L300.3900, L501.9520 ####[facility] [address] [place], [address] Basophils/100 WBC (Bld) 0.3 % Normal 0-1 [facility] Comment on above: Performed By: #### L 501.5200, L501.2300, L100.0100, L501.4700, L500.4050, L300.3900, L501.9520 ####[facility] [address] [place], [address] Eosinophils/100 WBC (Bld) 0.4 % Normal 0-5 [facility] Comment on above: Performed By: #### L 501.5200, L501.2300, L100.0100, L501.4700, L500.4050, L300.3900, L501.9520 ####[facility] [address] [place], [address] Erythrocyte distribution width (RBC) [Ratio] 13.0 % Normal 11.6-14.6 [facility] Comment on above: Performed By: #### L 501.5200, L501.2300, L100.0100, L501.4700, L500.4050, L300.3900, L501.9520 ####[facility] [address] [place], [address] Hematocrit (Bld) [Volume fraction] 39.0 % Normal 37-47 [facility] Comment on above: Performed By: #### L 501.5200, L501.2300, L100.0100, L501.4700, L500.4050, L300.3900, L501.9520 ####[facility] [address], [address] Hemoglobin (Bld) [Mass/Vol] 12.9 g/dL Normal 12.0-15.0 [facility] Comment on above: Performed By: #### L 501.5200, L501.2300, L100.0100, L501.4700, L500.4050, L300.3900, L501.9520 ####[facility] [address] [place], [address] IG% 0.400 Normal 0.0-0.9 [facility] Comment on above: Result Comment: IG% - Immature Granulocytes (promyelocytes, myelocytes andmetamyelocytes) > 1% indicates that a LEFT SHIFT is Present. Performed By: #### L 501.5200, L501.2300, L100.0100, L501.4700, L500.4050, L300.3900, L501.9520 ####[facility] [address] [place], [address] Lymphocytes/100 WBC (Bld) 13.1 % Low 19-41 [facility] Comment on above: Performed By: #### L 501.5200, L501.2300, L100.0100, L501.4700, L500.4050, L300.3900, L501.9520 ####[facility] [address] [place], [address] MCH (RBC) [Entitic mass] 29.3 pg Normal 27.0-32.0 [facility] Comment on above: Performed By: #### L 501.5200, L501.2300, L100.0100, L501.4700, L500.4050, L300.3900, L501.9520 ####[facility] [address] [place], [address] MCHC (RBC) [Mass/Vol] 33.1 g/dL Normal 32-36 [facility] Comment on above: Performed By: #### L 501.5200, L501.2300, L100.0100, L501.4700, L500.4050, L300.3900, L501.9520 ####[facility] [address] [place], [address] MCV (RBC) [Entitic vol] 88.6 fL Normal 81-99 [facility] Comment on above: Performed By: #### L 501.5200, L501.2300, L100.0100, L501.4700, L500.4050, L300.3900, L501.9520 ####[facility] [address] [place], [address] Monocytes/100 WBC (Bld) 8.3 % Normal 0-10 [facility] Comment on above: Performed By: #### L 501.5200, L501.2300, L100.0100, L501.4700, L500.4050, L300.3900, L501.9520 ####[facility] [address] [place], [address] Neutrophils/100 WBC (Bld) 77.5 % High 47-70 [facility] Comment on above: Performed By: #### L 501.5200, L501.2300, L100.0100, L501.4700, L500.4050, L300.3900, L501.9520 ####[facility] [address] [place], [address] Nucleated RBC (Bld) [#/Vol] 0 10*3/uL Normal 0-5 [facility] Comment on above: Performed By: #### L 501.5200, L501.2300, L100.0100, L501.4700, L500.4050, L300.3900, L501.9520 ####[facility] [address] [place], [address] Platelet mean volume (Bld) [Entitic vol] 9.7 fL Normal 6.2-12.0 [facility] Comment on above: Performed By: #### L 501.5200, L501.2300, L100.0100, L501.4700, L500.4050, L300.3900, L501.9520 ####[facility] [address] [place], [address] Platelets (Bld) [#/Vol] 263 10*3/uL Normal 150-450 [facility] Comment on above: Performed By: #### L 501.5200, L501.2300, L100.0100, L501.4700, L500.4050, L300.3900, L501.9520 ####[facility] [address] [place], [address] RBC (Bld) [#/Vol] 4.40 10*6/uL Normal 4.2-5.4 [facility] Comment on above: Performed By: #### L 501.5200, L501.2300, L100.0100, L501.4700, L500.4050, L300.3900, L501.9520 ####[facility] [address] [place], [address] RDW SD 42.5 fl Normal 35.1-43.9 [facility] Comment on above: Performed By: #### L 501.5200, L501.2300, L100.0100, L501.4700, L500.4050, L300.3900, L501.9520 ####[facility] [address] [place], [place], [address] WBC (Bld) [#/Vol] 7.4 10*3/uL Normal 4.4-11.0 [facility] Comment on above: Performed By: #### L 501.5200, L501.2300, L100.0100, L501.4700, L500.4050, L300.3900, L501.9520 ####[facility] [address] [place], [place], [address] Comprehensive Metabolic Prof ohon 12-07-2024 Albumin [Mass/Vol] 3.9 g/dL Normal 3.4-4.8 [facility] Comment on above: Performed By: #### L 501.5200, L501.2300, L100.0100, L501.4700, L500.4050, L300.3900, L501.9520 ####[facility] [address] [place], [place], [phone] Albumin/Globulin [Mass ratio] 1.6 {ratio} Normal 0.9-2.4 [facility] Comment on above: Performed By: #### L 501.5200, L501.2300, L100.0100, L501.4700, L500.4050, L300.3900, L501.9520 ####[facility] [address] [place], [address] ALK PHOS 66 U/L Normal 35-104 [facility] Comment on above: Performed By: #### L 501.5200, L501.2300, L100.0100, L501.4700, L500.4050, L300.3900, L501.9520 ####[facility] [address] [place], [address] ALT [Catalytic activity/Vol] 17 U/L Normal <=34 [facility] Comment on above: Performed By: #### L 501.5200, L501.2300, L100.0100, L501.4700, L500.4050, L300.3900, L501.9520 ####[facility] [address] [place], [address] AST [Catalytic activity/Vol] 33 U/L High <=31 [facility] Comment on above: Performed By: #### L 501.5200, L501.2300, L100.0100, L501.4700, L500.4050, L300.3900, L501.9520 ####[facility] [address] [place], [address] Bilirubin [Mass/Vol] 0.68 mg/dL Normal 0.00-1.30 [facility] Comment on above: Performed By: #### L 501.5200, L501.2300, L100.0100, L501.4700, L500.4050, L300.3900, L501.9520 ####[facility] [address] [place], [address] BUN/CRE 20.6 RATIO High 10-20 [facility] Comment on above: Performed By: #### L 501.5200, L501.2300, L100.0100, L501.4700, L500.4050, L300.3900, L501.9520 ####[facility] [address] [place], [address] Calcium [Mass/Vol] 9.3 mg/dL Normal 7.6-11.0 [facility] Comment on above: Performed By: #### L 501.5200, L501.2300, L100.0100, L501.4700, L500.4050, L300.3900, L501.9520 ####[facility] [address] [place], [address] Chloride [Moles/Vol] 97 mmol/L Low 98-108 [facility] Comment on above: Performed By: #### L 501.5200, L501.2300, L100.0100, L501.4700, L500.4050, L300.3900, L501.9520 ####[facility] [address] [place], [address] CO2 [Moles/Vol] 21.9 mmol/L Normal 21.0-32.0 [facility] Comment on above: Performed By: #### L 501.5200, L501.2300, L100.0100, L501.4700, L500.4050, L300.3900, L501.9520 ####[facility] [address] [place], [address] Creatinine [Mass/Vol] 0.93 mg/dL Normal 0.70-1.20 [facility] Comment on above: Performed By: #### L 501.5200, L501.2300, L100.0100, L501.4700, L500.4050, L300.3900, L501.9520 ####[facility] [address] [place], [address] ECRCL 50.58 ml/min Normal 50-250 [facility] Comment on above: Performed By: #### L 501.5200, L501.2300, L100.0100, L501.4700, L500.4050, L300.3900, L501.9520 ####[facility] [address] [place], [address] GAP 13 Normal 5-15 [facility] Comment on above: Performed By: #### L 501.5200, L501.2300, L100.0100, L501.4700, L500.4050, L300.3900, L501.9520 ####[facility] [address] [place], [address] GFR/1.73 sq M.predicted among non-blacks MDRD (S/P/Bld) [Vol rate/Area] 62 mL/min/{1.73_m2} Normal >60 [facility] Comment on above: Result Comment: mL/m in/1.73m2 CKD-EPI Creatinine Equation (2020) Performed By: #### L 501.5200, L501.2300, L100.0100, L501.4700, L500.4050, L300.3900, L501.9520 ####[facility] [address] [place], [address] Globulin (S) [Mass/Vol] 2.5 g/dL Normal 2.2-4.2 [facility] Comment on above: Performed By: #### L 501.5200, L501.2300, L100.0100, L501.4700, L500.4050, L300.3900, L501.9520 ####[facility] [address] [place], [address] Glucose [Mass/Vol] 98 mg/dL Normal 70-99 [facility] Comment on above: Performed By: #### L 501.5200, L501.2300, L100.0100, L501.4700, L500.4050, L300.3900, L501.9520 ####[facility] [address] [place], [address] Potassium [Moles/Vol] 4.2 mmol/L Normal 3.3-5.1 [facility] Comment on above: Result Comment: Hemo lysis present, Results??could be affected.?? Performed By: #### L 501.5200, L501.2300, L100.0100, L501.4700, L500.4050, L300.3900, L501.9520 ####[facility] [address] [place], [address] Sodium [Moles/Vol] 132 mmol/L Low 133-145 [facility] Comment on above: Performed By: #### L 501.5200, L501.2300, L100.0100, L501.4700, L500.4050, L300.3900, L501.9520 ####[facility] [address] [place], [address] T PROT 6.3 g/dL Normal 5.9-8.4 [facility] Comment on above: Performed By: #### L 501.5200, L501.2300, L100.0100, L501.4700, L500.4050, L300.3900, L501.9520 ####[facility] [address] [place], [address] Urea nitrogen [Mass/Vol] 19 mg/dL Normal 4-19 [facility] Comment on above: Performed By: #### L 501.5200, L501.2300, L100.0100, L501.4700, L500.4050, L300.3900, L501.9520 ####[facility] [address] [place], [address] Consultation - Cardiologyon 12-07-2024 Consultation - Cardiology Normal [facility] Consultation - Orthopedicson 12-07-2024 Consultation - Orthopedics Normal [facility] International normalized rat io (INR) calculationOrdered By: Sandro Jackman on 12-07-2024 INR Coag (Bld) [Relative time] 1.0 {INR} [facility] Laboratory - Chemistry and C hemistry - challengeOrdered By: Sandro Jackman on 12-07-2024 AST [Catalytic activity/Vol] 33 U/L High <32 [facility] Magnesiumon 12-07-2024 Magnesium [Mass/Vol] 2.0 mg/dL Normal 1.5-2.2 [facility] Comment on above: Performed By: #### L 501.5200, L501.2300, L100.0100, L501.4700, L500.4050, L300.3900, L501.9520 ####[facility] [address] [place], [place], [address] Magnesium (Unsp spec) [Mass/ Vol]Ordered By: Sandro Jackman on 12-07-2024 Magnesium [Mass/Vol] 2.0 mg/dL 1.5-2.2 [facility] Phosphoruson 12-07-2024 Phosphate [Mass/Vol] 4.2 mg/dL Normal 2.7-4.5 [facility] Comment on above: Performed By: #### L 501.5200, L501.2300, L100.0100, L501.4700, L500.4050, L300.3900, L501.9520 ####[facility] [address] [place], [place], [address] Prothrombin Time w/INRon INR Coag (PPP) [Relative time] 1.0 {INR} Normal [facility] Comment on above: Performed By: #### L 501.5200, L501.2300, L100.0100, L501.4700, L500.4050, L300.3900, L501.9520 ####[facility] [address] [place], [place], [address] PT Coag (PPP) [Time] 13.0 s Normal 11.7-14.9 [facility] Comment on above: Performed By: #### L 501.5200, L501.2300, L100.0100, L501.4700, L500.4050, L300.3900, L501.9520 ####[facility] [id number] [place], [address] Prothrombin timeOrdered By: Sandro Jackman on 12-07-2024 PT Coag (PPP) [Time] 13.0 s 11.7-14.9 [facility] Serum globulin measurementOr dered By: Sandro Jackman on 12-07-2024 Globulin (S) [Mass/Vol] 2.5 g/dL 2.2-4.2 [facility] Serum or plasma alanine simeon otransferase (ALT) measurementOrdered By: Sandro Jackman on 12-07-2024 ALT [Catalytic activity/Vol] 17 U/L <35 [facility] Serum or plasma albumin cindy urement (mass/volume)Ordered By: Sandro Jackman on 12-07-2024 Albumin [Mass/Vol] 3.9 g/dL 3.4-4.8 [facility] Serum or plasma albumin/glob ulin mass ratioOrdered By: Sandro Jackman on 12-07-2024 Albumin/Globulin [Mass ratio] 1.6 {ratio} 0.9-2.4 [facility] Serum or plasma alkaline avani sphatase measurementOrdered By: Sandro Jackman on 12-07-2024 ALP [Catalytic activity/Vol] 66 U/L 35-104 [facility] Serum phosphorus measurement Ordered By: Sandro Jackman on 12-07-2024 Phosphorus Level 4.2 mg/dL 2.7-4.5 [facility] TSH DL <= 0.005 mIU/L QnOrde red By: Sandro Jackman on 12-07-2024 Thyroid Stimulating Hormone (TSH) 1.180 uIU/mL 0.300-4.200 [facility] Thyroid Stim Hormone (TSH)on 12-07-2024 TSH 1.180 uIU/mL Normal 0.300-4.200 [facility] Comment on above: Performed By: #### L 501.5200, L501.2300, L100.0100, L501.4700, L500.4050, L300.3900, L501.9520 ####[facility] [address] [place], [address] Total proteinOrdered By: Shivani Jackman on 12-07-2024 Protein [Mass/Vol] 6.3 g/dL 5.9-8.4 [facility] 12 Lead EKGon 12-06-2024 12 Lead EKG Normal [facility] Absolute neutrophil countOrd ered By: Rita Nowak on 12-06-2024 Neutrophils (Bld) [#/Vol] 9.9 10*3/uL High 2.0-7.7 [facility] Anion gap in Serum or Plasma Ordered By: Rita Nowak on 12-06-2024 Anion gap [Moles/Vol] 14 mmol/L 02-05 [facility] BUN/creatinine ratioOrdered By: Rita Nowak on 12-06-2024 Urea nitrogen/Creatinine [Mass ratio] 17.1 mg/mg - [facility] Basic Metabolic Profile (BMP )on 12-06-2024 BUN/CRE 17.1 RATIO Normal 07-13 [facility] Comment on above: Performed By: #### L 500.2500, L100.0100 ####[facility] [address] [place], [address] Calcium [Mass/Vol] 9.5 mg/dL Normal 7.6-11.0 [facility] Comment on above: Performed By: #### L 500.2500, L100.0100 ####[facility] [address] [place], [address] Chloride [Moles/Vol] 97 mmol/L Low 98-108 [facility] Comment on above: Performed By: #### L 500.2500, L100.0100 ####[facility] [address] [place], [address] CO2 [Moles/Vol] 23.1 mmol/L Normal 21.0-32.0 [facility] Comment on above: Performed By: #### L 500.2500, L100.0100 ####[facility] [address] [place], [address] Creatinine [Mass/Vol] 0.96 mg/dL Normal 0.70-1.20 [facility] Comment on above: Performed By: #### L 500.2500, L100.0100 ####[facility] [address] [place], [address] ECRCL 51.06 ml/min Normal 50-250 [facility] Comment on above: Performed By: #### L 500.2500, L100.0100 ####[facility] [address] [place], [address] GAP 14 Normal 5-15 [facility] Comment on above: Performed By: #### L 500.2500, L100.0100 ####[facility] [address] [place], [address] GFR/1.73 sq M.predicted among non-blacks MDRD (S/P/Bld) [Vol rate/Area] 60 mL/min/{1.73_m2} Normal >60 [facility] Comment on above: Result Comment: mL/m in/1.73m2 CKD-EPI Creatinine Equation (2020) Performed By: #### L 500.2500, L100.0100 ####[facility] [address] [place], [address] Glucose [Mass/Vol] 127 mg/dL High 70-99 [facility] Comment on above: Performed By: #### L 500.2500, L100.0100 ####[facility] [address] [place], [address] Potassium [Moles/Vol] 4.3 mmol/L Normal 3.3-5.1 [facility] Comment on above: Performed By: #### L 500.2500, L100.0100 ####[facility] [address] [place], [address] Sodium [Moles/Vol] 134 mmol/L Normal 133-145 [facility] Comment on above: Performed By: #### L 500.2500, L100.0100 ####[facility] [address] [place], [address] Urea nitrogen [Mass/Vol] 16 mg/dL Normal 4-19 [facility] Comment on above: Performed By: #### L 500.2500, L100.0100 ####[facility] [address] [place], [address] Basophil percentageOrdered B y: Rita Magdalenowadekatie on 12-06-2024 Basophils/100 WBC (Bld) 0.3 % 0-1 [facility] Brain/Head without Contrasto n 12-06-2024 Brain/Head without Contrast Normal [facility] CBC W/Diff, Automatedon 11-22 Absolute Lymph 0.99 X10 3/uL Normal 0.83-4.51 [facility] Comment on above: Performed By: #### L 500.2500, L100.0100 ####[facility] [address] [place], [address] Absolute Neut 9.9 X10 3/uL High 2.0-7.7 [facility] Comment on above: Performed By: #### L 500.2500, L100.0100 ####[facility] [address] [place], [address] Basophils/100 WBC (Bld) 0.3 % Normal 0-1 [facility] Comment on above: Performed By: #### L 500.2500, L100.0100 ####[facility] [address] [place], [address] Eosinophils/100 WBC (Bld) 1.3 % Normal 0-5 [facility] Comment on above: Performed By: #### L 500.2500, L100.0100 ####[facility] [address] [place], [address] Erythrocyte distribution width (RBC) [Ratio] 12.9 % Normal 11.6-14.6 [facility] Comment on above: Performed By: #### L 500.2500, L100.0100 ####[facility] [address] [place], [address] Hematocrit (Bld) [Volume fraction] 40.5 % Normal 37-47 [facility] Comment on above: Performed By: #### L 500.2500, L100.0100 ####[facility] [address] [place], [address] Hemoglobin (Bld) [Mass/Vol] 13.6 g/dL Normal 12.0-15.0 [facility] Comment on above: Performed By: #### L 500.2500, L100.0100 ####[facility] [address] [place], [address] IG% 0.500 Normal 0.0-0.9 [facility] Comment on above: Result Comment: IG% - Immature Granulocytes (promyelocytes, myelocytes andmetamyelocytes) > 1% indicates that a LEFT SHIFT is Present. Performed By: #### L 500.2500, L100.0100 ####[facility] [address] [place], [address] Lymphocytes/100 WBC (Bld) 8.6 % Low 19-41 [facility] Comment on above: Performed By: #### L 500.2500, L100.0100 ####[facility] [address] [place], [address] MCH (RBC) [Entitic mass] 29.4 pg Normal 27.0-32.0 [facility] Comment on above: Performed By: #### L 500.2500, L100.0100 ####[facility] [address] [place], [address] MCHC (RBC) [Mass/Vol] 33.6 g/dL Normal 32-36 [facility] Comment on above: Performed By: #### L 500.2500, L100.0100 ####[facility] [address] [place], [address] MCV (RBC) [Entitic vol] 87.7 fL Normal 81-99 [facility] Comment on above: Performed By: #### L 500.2500, L100.0100 ####[facility] [address] [place], [address] Monocytes/100 WBC (Bld) 4.0 % Normal 0-10 [facility] Comment on above: Performed By: #### L 500.2500, L100.0100 ####[facility] [address] [place], [address] Neutrophils/100 WBC (Bld) 85.3 % High 47-70 [facility] Comment on above: Performed By: #### L 500.2500, L100.0100 ####[facility] [address] [place], [address] Nucleated RBC (Bld) [#/Vol] 0 10*3/uL Normal 0-5 [facility] Comment on above: Performed By: #### L 500.2500, L100.0100 ####[facility] [address] [place], [address] Platelet mean volume (Bld) [Entitic vol] 9.2 fL Normal 6.2-12.0 [facility] Comment on above: Performed By: #### L 500.2500, L100.0100 ####[facility] [address] [place], [address] Platelets (Bld) [#/Vol] 279 10*3/uL Normal 150-450 [facility] Comment on above: Performed By: #### L 500.2500, L100.0100 ####[facility] [address] [place], [address] RBC (Bld) [#/Vol] 4.62 10*6/uL Normal 4.2-5.4 [facility] Comment on above: Performed By: #### L 500.2500, L100.0100 ####[facility] [address] [place], [address] RDW SD 41.1 fl Normal 35.1-43.9 [facility] Comment on above: Performed By: #### L 500.2500, L100.0100 ####[facility] [address] [place], [address] WBC (Bld) [#/Vol] 11.6 10*3/uL High 4.4-11.0 [facility] Comment on above: Performed By: #### L 500.2500, L100.0100 ####[facility] [address] [place], [address] Carbon dioxide, total [Moles /volume] in Central venous bloodOrdered By: Rita Nowak on 12-06-2024 CO2 [Moles/Vol] 23.1 mmol/L 21.0-32.0 [facility] Chest 1 View (Portable)on Chest 1 View (Portable) Normal [facility] Chloride assayOrdered By: Roselyn Nowak on 12-06-2024 Chloride [Moles/Vol] 97 mmol/L Low 98-108 [facility] Emergency Department Summary on 12-06-2024 Emergency Department Summary Normal [facility] Eosinophil percentageOrdered By: Rita Nowak on 12-06-2024 Eosinophils/100 WBC (Bld) 1.3 % 0-5 [facility] Erythrocyte distribution wid th ratioOrdered By: Rita Nowak on 12-06-2024 Erythrocyte distribution width (RBC) [Ratio] 12.9 % 11.6-14.6 [facility] Erythrocyte distribution wid th standard deviationOrdered By: Rita Nowak on 12-06-2024 Erythrocyte distribution width (RBC) [Entitic vol] 41.1 fL 35.1-43.9 [facility] Estimation of creatinine clemencia aranceOrdered By: Rita Nowak on 12-06-2024 Estimated Creatinine Clearance Calc 51.06 ml/min 50-250 [facility] GFR/1.73 sq M.predicted stephen g non-blacks MDRD (S/P/Bld) [Vol rate/Area]Ordered By: Rita Nowak on 12-06-2024 Estimated GFR (MDRD) Non-Af Amer 60 >60 [facility] Comment on above: mL/min/1.73m2 CKD-EP I Creatinine Equation (2020) H AND P Exam - Hospitaliston 12-06-2024 H&P Exam - Hospitalist Normal [facility] Hematocrit Auto (Bld) [Volum e fraction]Ordered By: Rita Nowak on 12-06-2024 Hematocrit (Bld) [Volume fraction] 40.5 % 37-47 [facility] Hemoglobin measurementOrdere d By: Rita Nowak on 12-06-2024 Hemoglobin (Bld) [Mass/Vol] 13.6 g/dL 12.0-15.0 [facility] Immature granulocytes/100 WB C Auto (Bld)Ordered By: Rita Nowak on 12-06-2024 Immature granulocytes/100 WBC (Bld) 0.500 % 0.0-0.9 [facility] Comment on above: IG% - Immature Granu locytes (promyelocytes, myelocytes and metamyelocytes) > 1% indicates that a LEFT SHIFT is Present. Knee 1 or 2 Viewson 12-07-19 25 Knee 1 or 2 Views Normal [facility] L499.0042on 12-06-2024 Trop T High Sen 184 ng/L Invalid Interpretation Code <=14 [facility] Comment on above: Result Comment: Crit ical Result(s) Called at 12/06/2024-21:15 by Ga Chamberlain??Results read back by same. Performed By: #### L 499.0042 ####[facility] [address] [place], [address] Trop T High Sen 178 ng/L Invalid Interpretation Code <=14 [facility] Comment on above: Result Comment: Crit ical Result(s) Called at 12/06/2024-20:01 by Ga Ortiz??Results read back by same. Performed By: #### L 499.0042 ####[facility] [address] [place], [address] L499.0043on 12-06-2024 Trop T High Sen Normal <=14 [facility] Comment on above: Result Comment: Canc elled via OM: Ordered Performed By: #### L 499.0043 ####[facility] [address] [place], [address] Trop T High Sen Normal <=14 [facility] Comment on above: Result Comment: OKAY TO CANCEL PER WALLY VEGA PCU CHARGE Performed By: #### L 499.0043 ####[facility] [address] [place], [address] L501.4021on 12-06-2024 Trop T High Sen 108 ng/L Invalid Interpretation Code <=14 [facility] Comment on above: Result Comment: Crit ical Result(s) Called at 12/06/2024-17:35 by Ga Pena??Results read back by same. Performed By: #### L 501.4021 ####[facility] [address] [place], [address] Lymphocytes Auto (Unsp spec) [#/Vol]Ordered By: Rita Nowak on 12-06-2024 Lymphocytes (Bld) [#/Vol] 0.99 10*3/uL 0.83-4.51 [facility] Lymphocytes/100 WBC Auto (Un sp spec)Ordered By: Rita Nowak on 12-06-2024 Lymphocytes/100 WBC (Bld) 8.6 % Low 19-41 [facility] MCV (mean corpuscular volume ) determinationOrdered By: Rita Nowak on 12-06-2024 MCV (RBC) [Entitic vol] 87.7 fL 81-99 [facility] Mean corpuscular hemoglobin (MCH) determinationOrdered By: Rita Nowak on 12-06-2024 MCH (RBC) [Entitic mass] 29.4 pg 27.0-32.0 [facility] Mean corpuscular hemoglobin concentration (MCHC) determinationOrdered By: Rita Nowak on 12-06-2024 MCHC (RBC) [Mass/Vol] 33.6 g/dL 32-36 [facility] Mean platelet volume determi nationOrdered By: Rita Nowak on 12-06-2024 Platelet mean volume (Bld) [Entitic vol] 9.2 fL 6.2-12.0 [facility] Monocyte percentageOrdered B y: Rita Nowak on 12-06-2024 Monocytes/100 WBC (Bld) 4.0 % 0-10 [facility] Neutrophil percentageOrdered By: Rita Nowak on 12-06-2024 Neutrophils/100 WBC (Bld) 85.3 % High 47-70 [facility] No Panel InformationOrdered By: Rita Nowak on 12-06-2024 Troponin T High Sensitivity 108 ng/L High <14 [facility] Comment on above: Critical Result(s) C alled at 12/06/2024-17:35 by Ga Pate to Nabila Pena Results read back by same. Nucleated red blood cell per centageOrdered By: Rita Nowak on 12-06-2024 Nucleated RBC/100 WBC (Bld) [Ratio] 0 % 0-5 [facility] Platelet countOrdered By: Roselyn Nowak on 12-06-2024 Platelets (Bld) [#/Vol] 279 10*3/uL 150-450 [facility] Potassium (Unsp spec) [Mass/ Vol]Ordered By: Rita Nowak on 12-06-2024 Potassium [Moles/Vol] 4.3 mmol/L 3.3-5.1 [facility] RBC Auto (Bld) [#/Vol]Ordere d By: Rita Nowak on 12-06-2024 RBC (Bld) [#/Vol] 4.62 10*6/uL 4.2-5.4 [facility] Serum creatinine measurement (mass/volume)Ordered By: Rita Nowak on 12-06-2024 Creatinine [Mass/Vol] 0.96 mg/dL 0.70-1.20 [facility] Serum glucose measurement (m ass/volume)Ordered By: Rita Nowak on 12-06-2024 Glucose [Mass/Vol] 127 mg/dL High 70-99 [facility] Serum or plasma calcium cindy urement (mass/volume)Ordered By: Rita Nowak on 12-06-2024 Calcium [Mass/Vol] 9.5 mg/dL 7.6-11.0 [facility] Serum or plasma urea nitroge n measurement (mass/volume)Ordered By: Rita Nowak on 12-06-2024 Urea nitrogen [Mass/Vol] 16 mg/dL 4-19 [facility] Sinus/Facial Boneon 12-07-19 25 Sinus/Facial Bone Normal [facility] Sodium levelOrdered By: Rita Nowak on 12-06-2024 Sodium [Moles/Vol] 134 mmol/L 133-145 [facility] Spine Cervical without Contr ason 12-06-2024 Spine Cervical without Contras Normal [facility] Troponin T.cardiac High sens itivity method [Mass/Vol]Ordered By: Rita Nowak on 12-06-2024 Troponin T High Sensitivity 2 Hour 184 ng/L High <14 [facility] Comment on above: Critical Result(s) C alled at 12/06/2024-21:15 by Ga Pate to Sunni Chamberlain Results read back by same. White blood cell (WBC) count Ordered By: Rita Nowak on 12-06-2024 WBC (Bld) [#/Vol] 11.6 10*3/uL High 4.4-11.0 [facility] Cardiology Visit Reporton Cardiology Visit Report Normal [facility] .Auto Diffon 10-29-2024 Basophil, Absolute 0.0 10 3/mcL Normal 0.0-0.2 [facility] Comment on above: Performed By: #### T SHR, CBC, CMP, ADIFF, GFR, ANEU, FT4 #### [address] [address] Basophils/100 WBC (Bld) 0.6 % Normal 0.0-2.5 [facility] Comment on above: Performed By: #### T SHR, CBC, CMP, ADIFF, GFR, ANEU, FT4 #### [address] [address] Eosinophil, Absolute 0.2 10 3/mcL Normal 0.0-0.7 [facility] Comment on above: Performed By: #### T SHR, CBC, CMP, ADIFF, GFR, ANEU, FT4 #### [address] [address] Eosinophils/100 WBC (Bld) 2.6 % Normal 0.0-7.0 [facility] Comment on above: Performed By: #### T SHR, CBC, CMP, ADIFF, GFR, ANEU, FT4 #### [address] [address] Lymphocyte, Absolute 1.3 10 3/mcL Normal 0.9-4.3 [facility] Comment on above: Performed By: #### T SHR, CBC, CMP, ADIFF, GFR, ANEU, FT4 #### [address] [address] Lymphocytes/100 WBC (Bld) 21.2 % Normal 20.0-40.0 [facility] Comment on above: Performed By: #### T SHR, CBC, CMP, ADIFF, GFR, ANEU, FT4 #### [address] [address] Monocyte, Absolute 0.5 10 3/mcL Normal 0.1-1.4 [facility] Comment on above: Performed By: #### T SHR, CBC, CMP, ADIFF, GFR, ANEU, FT4 #### [address] [address] Monocytes/100 WBC (Bld) 7.5 % Normal 2.0-13.0 [facility] Comment on above: Performed By: #### T SHR, CBC, CMP, ADIFF, GFR, ANEU, FT4 #### [address] [address] Neutrophils/100 WBC (Bld) 68.1 % Normal 50.0-75.0 [facility] Comment on above: Performed By: #### T SHR, CBC, CMP, ADIFF, GFR, ANEU, FT4 #### [address] [address] .GFRon 10-29-2024 Estimated Glomerular Filtration Rate 53 ml/min/1.73sqm Normal [facility] Comment on above: Result Comment: Stages [...] V IDH, LIPID, CMP, GFR, TSH #### [address] [address] #### B12 #### [address] [address] .NEUABSon 10-29-2024 Neutrophil, Absolute 4.3 10 3/mcL Normal 2.3-8.1 [facility] Comment on above: Performed By: #### T SHR, CBC, CMP, ADIFF, GFR, ANEU, FT4 #### [place] [id number] [place], [place] [address] CBCon 10-29-2024 Erythrocyte distribution width (RBC) [Ratio] 13.8 % Normal 11.5-15.5 [facility] Comment on above: Performed By: #### T SHR, CBC, CMP, ADIFF, GFR, ANEU, FT4 #### [address] [address] Hematocrit (Bld) [Volume fraction] 41.6 % Normal 34.0-46.0 [facility] Comment on above: Performed By: #### T SHR, CBC, CMP, ADIFF, GFR, ANEU, FT4 #### [address] [address] Hgb 13.8 G/dL Normal 12.0-16.0 [facility] Comment on above: Performed By: #### T SHR, CBC, CMP, ADIFF, GFR, ANEU, FT4 #### [address] [address] MCH (RBC) [Entitic mass] 29.1 pg Normal 27.0-33.0 [facility] Comment on above: Performed By: #### T SHR, CBC, CMP, ADIFF, GFR, ANEU, FT4 #### [address] [address] MCHC 33.3 G/dL Normal 32.0-36.0 [facility] Comment on above: Performed By: #### T SHR, CBC, CMP, ADIFF, GFR, ANEU, FT4 #### [address] [address] MCV (RBC) [Entitic vol] 87.3 fL Normal 80.0-99.0 [facility] Comment on above: Performed By: #### T SHR, CBC, CMP, ADIFF, GFR, ANEU, FT4 #### [address] [address] Platelet 283 10 3/mcL Normal 150-450 [facility] Comment on above: Performed By: #### T SHR, CBC, CMP, ADIFF, GFR, ANEU, FT4 #### [place] [id number] Platelet mean volume (Bld) [Entitic vol] 7.6 fL Normal 6.6-10.5 [facility] Comment on above: Performed By: #### T SHR, CBC, CMP, ADIFF, GFR, ANEU, FT4 #### [address] [address] RBC 4.76 10 6/mcL Normal 4.10-5.30 [facility] Comment on above: Performed By: #### T SHR, CBC, CMP, ADIFF, GFR, ANEU, FT4 #### [address] [address] WBC 6.3 10 3/mcL Normal 4.5-10.8 [facility] Comment on above: Performed By: #### T SHR, CBC, CMP, ADIFF, GFR, ANEU, FT4 #### [address] [address] CMPon 10-29-2024 Albumin Level 4.5 G/dL Normal 3.4-4.8 [facility] Comment on above: Performed By: #### V IDH, LIPID, CMP, GFR, TSH #### [place] [address] #### B12 #### [address] [address] Albumin/Globulin [Mass ratio] 1.5 {ratio} Normal 1.1-2.5 [facility] Comment on above: Performed By: #### V IDH, LIPID, CMP, GFR, TSH #### [address] [address] #### B12 #### [address] [address] ALP [Catalytic activity/Vol] 81 U/L Normal 40-135 [facility] Comment on above: Performed By: #### V IDH, LIPID, CMP, GFR, TSH #### [place] [address] #### B12 #### [address] [address] ALT [Catalytic activity/Vol] 22 U/L Normal 14-59 [facility] Comment on above: Performed By: #### V IDH, LIPID, CMP, GFR, TSH #### [place] [address] #### B12 #### [address] [address] AST [Catalytic activity/Vol] 21 U/L Normal 10-40 [facility] Comment on above: Performed By: #### V IDH, LIPID, CMP, GFR, TSH #### [place] [address] #### B12 #### [address] [address] Bili Total 0.5 mg/dL Normal 0.2-1.0 [facility] Comment on above: Result Comment: Use of this assay is not recommended for patients undergoing treatment with eltrombopag due to the potential for falsely elevated results. Performed By: #### V IDH, LIPID, CMP, GFR, TSH #### [place] [address] #### B12 #### [address] [address] BUN/Creatinine Ratio 15 ratio Normal 7-27 [facility] Comment on above: Performed By: #### V IDH, LIPID, CMP, GFR, TSH #### [place] [address] #### B12 #### [address] [address] Calcium [Mass/Vol] 10.2 mg/dL Normal 8.4-10.2 [facility] Comment on above: Performed By: #### V IDH, LIPID, CMP, GFR, TSH #### [place] [address] #### B12 #### [address] [address] Chloride [Moles/Vol] 100 mmol/L Normal 98-107 [facility] Comment on above: Performed By: #### V IDH, LIPID, CMP, GFR, TSH #### [address] [address] #### B12 #### [address] [address] CO2 [Moles/Vol] 31 mmol/L Normal 23-31 [facility] Comment on above: Performed By: #### V IDH, LIPID, CMP, GFR, TSH #### [address] [address] #### B12 #### [address] [address] Creatinine [Mass/Vol] 1.06 mg/dL High 0.55-1.02 [facility] Comment on above: Result Comment: Test ing performed on Siemens Dimension EXL analyzer using a modified kinetic Jana technique. Performed By: #### V IDH, LIPID, CMP, GFR, TSH #### [place] [address] #### B12 #### [address] [address] Electrolyte Balance 6.0 mEq/L Normal 4.0-15.0 [facility] Comment on above: Performed By: #### V IDH, LIPID, CMP, GFR, TSH #### [place] [address] #### B12 #### [address] [address] Globulin 3.0 G/dL Normal 1.5-3.8 [facility] Comment on above: Performed By: #### V IDH, LIPID, CMP, GFR, TSH #### [place] [address] #### B12 #### [address] [address] Glucose [Mass/Vol] 93 mg/dL Normal 83-110 [facility] Comment on above: Performed By: #### V IDH, LIPID, CMP, GFR, TSH #### [address] [address] #### B12 #### [address] [address] Potassium [Moles/Vol] 4.9 mmol/L Normal 3.5-5.1 [facility] Comment on above: Performed By: #### V IDH, LIPID, CMP, GFR, TSH #### [place] [address] #### B12 #### [place] [address] Sodium [Moles/Vol] 137 mmol/L Normal 136-145 [facility] Comment on above: Performed By: #### V IDH, LIPID, CMP, GFR, TSH #### [place] [address] #### B12 #### [place] [address] Total Protein 7.5 G/dL Normal 6.4-8.2 [facility] Comment on above: Performed By: #### V IDH, LIPID, CMP, GFR, TSH #### [place] [address] #### B12 #### [place] [address] Urea nitrogen [Mass/Vol] 16 mg/dL Normal 7-18 [facility] Comment on above: Performed By: #### V IDH, LIPID, CMP, GFR, TSH #### [place] [address] #### B12 #### [place] [address] FT4on 10-29-2024 Free T4 [Mass/Vol] 1.25 ng/dL Normal 0.76-1.46 [facility] Comment on above: Order Comment: Order ed by Discern Performed By: #### V IDH, LIPID, CMP, GFR, TSH #### [place] [address] #### B12 #### [place] [address] LABORATORYOrdered By: SYSTEM SYSTEM on 10-29-2024 Albumin [...] 10-29-2024 TSH Qn 0.18 m[IU]/L Low 0.36-3.74 [facility] Comment on above: Performed By: #### V IDH, LIPID, CMP, GFR, TSH #### [facility] [address] [place], [place] [address] #### B12 #### [facility] [address] [place] [address] Cardiology Visit Reporton Cardiology Visit Report Normal [facility] BD BONE DENSITY DEXA AXIAL S [facility] 08-25-2024 BD BONE DENSITY DEXA AXIAL SKELETON [...] 08/25/2024 3:40:14 PM Ordering Provider: ARGELIA DARBY [facility] .GFRon 07-31-2024 GFR 65 ml/min/1.73sqm [facility] Comment on above: Result Comment: GFR [...] V IDH, LIPID, CMP, GFR, TSH #### [address] [address] #### B12 #### [address] [address] GFR Non- 53 ml/min/1.73sqm Normal [facility] Comment on above: Result Comment: GFR [...] V IDH, LIPID, CMP, GFR, TSH #### [place] [address] #### B12 #### [address] [address] B12on 07-31-2024 Cobalamin (Vitamin B12) [Mass/Vol] 431 pg/mL Normal 211-911 [facility] Comment on above: Performed By: #### V IDH, LIPID, CMP, GFR, TSH #### [address] [address] #### B12 #### [address] [address] CMPon 07-31-2024 Albumin Level 4.1 G/dL Normal 3.4-4.8 [facility] Comment on above: Performed By: #### V IDH, LIPID, CMP, GFR, TSH #### [address] [address] #### B12 #### [address] [address] Albumin/Globulin [Mass ratio] 1.5 {ratio} Normal 1.1-2.5 [facility] Comment on above: Performed By: #### V IDH, LIPID, CMP, GFR, TSH #### [address] [address] #### B12 #### [place] [address] ALP [Catalytic activity/Vol] 98 U/L Normal 40-135 [facility] Comment on above: Performed By: #### V IDH, LIPID, CMP, GFR, TSH #### [place] [address] #### B12 #### [place] [address] ALT [Catalytic activity/Vol] 26 U/L Normal 14-59 [facility] Comment on above: Performed By: #### V IDH, LIPID, CMP, GFR, TSH #### [place] [address] #### B12 #### [place] [address] AST [Catalytic activity/Vol] 18 U/L Normal 10-40 [facility] Comment on above: Performed By: #### V IDH, LIPID, CMP, GFR, TSH #### [place] [address] #### B12 #### [place] [address] Bili Total 0.4 mg/dL Normal 0.2-1.0 [facility] Comment on above: Result Comment: Use of this assay is not recommended for patients undergoing treatment with eltrombopag due to the potential for falsely elevated results. Performed By: #### V IDH, LIPID, CMP, GFR, TSH #### [place] [address] #### B12 #### [place] [address] BUN/Creatinine Ratio 21 ratio Normal 7-27 [facility] Comment on above: Performed By: #### V IDH, LIPID, CMP, GFR, TSH #### [address] [address] #### B12 #### [address] [address] Calcium [Mass/Vol] 9.6 mg/dL Normal 8.4-10.2 [facility] Comment on above: Performed By: #### V IDH, LIPID, CMP, GFR, TSH #### [place] [address] #### B12 #### [address] [address] Chloride [Moles/Vol] 101 mmol/L Normal 98-107 [facility] Comment on above: Performed By: #### V IDH, LIPID, CMP, GFR, TSH #### [place] [address] #### B12 #### [address] [address] CO2 [Moles/Vol] 29 mmol/L Normal 23-31 [facility] Comment on above: Performed By: #### V IDH, LIPID, CMP, GFR, TSH #### [place] [address] #### B12 #### [address] [address] Creatinine [Mass/Vol] 1.00 mg/dL Normal 0.55-1.02 [facility] Comment on above: Result Comment: Test ing performed on Siemens Dimension EXL analyzer using a modified kinetic Jana technique. Performed By: #### V IDH, LIPID, CMP, GFR, TSH #### [place] [address] #### B12 #### [address] [address] Electrolyte Balance 6.0 mEq/L Normal 4.0-15.0 [facility] Comment on above: Performed By: #### V IDH, LIPID, CMP, GFR, TSH #### [address] [address] #### B12 #### [address] [address] Globulin 2.8 G/dL Normal [facility] Comment on above: Performed By: #### V IDH, LIPID, CMP, GFR, TSH #### [address] [address] #### B12 #### [address] [address] Glucose [Mass/Vol] 107 mg/dL Normal 83-110 [facility] Comment on above: Performed By: #### V IDH, LIPID, CMP, GFR, TSH #### [address] [address] #### B12 #### [address] [address] Potassium [Moles/Vol] 4.9 mmol/L Normal 3.5-5.1 [facility] Comment on above: Performed By: #### V IDH, LIPID, CMP, GFR, TSH #### [address] [address] #### B12 #### [address] [address] Sodium [Moles/Vol] 136 mmol/L Normal 136-145 [facility] Comment on above: Performed By: #### V IDH, LIPID, CMP, GFR, TSH #### [address] [address] #### B12 #### [address] [address] Total Protein 6.9 G/dL Normal 6.4-8.2 [facility] Comment on above: Performed By: #### V IDH, LIPID, CMP, GFR, TSH #### [address] [address] #### B12 #### [address] [address] Urea nitrogen [Mass/Vol] 21 mg/dL High 7-18 [facility] Comment on above: Performed By: #### V IDH, LIPID, CMP, GFR, TSH #### [place] [address] [place], [place] [address] #### B12 #### [address] [address] LABORATORYOrdered By: SYSTEM SYSTEM on 07-31-2024 25-hydroxyvitamin [...] 07-31-2024 Cholesterol [Mass/Vol] 156 mg/dL Normal 0-200 [facility] Comment on above: Result Comment: Chol esterol Reference Interval: Less than 200 Desirable 200-239 Borderline high risk 240 and above High risk Performed By: #### V IDH, LIPID, CMP, GFR, TSH #### [address] [address] #### B12 #### [address] [address] Cholesterol in HDL [Mass/Vol] 84 mg/dL High 40-60 [facility] Comment on above: Performed By: #### V IDH, LIPID, CMP, GFR, TSH #### [address] [address] #### B12 #### [address] [address] Cholesterol in LDL [Mass/Vol] 64 mg/dL Normal 0-130 [facility] Comment on above: Performed By: #### V IDH, LIPID, CMP, GFR, TSH #### [address] [address] #### B12 #### [place] [id number] Triglyceride [Mass/Vol] 41 mg/dL Normal 0-150 [facility] Comment on above: Result Comment: Trig lyceride Reference Interval: Less than 150 Normal 150-199 Borderline high risk 200-499 High risk 500 or higher Very high risk Performed By: #### V IDH, LIPID, CMP, GFR, TSH #### [address] [address] #### B12 #### [place] [address] TSHon 07-31-2024 TSH Qn 0.49 m[IU]/L Normal 0.36-3.74 [facility] Comment on above: Performed By: #### V IDH, LIPID, CMP, GFR, TSH #### [address] [address] #### B12 #### [place] [address] VIDHon 07-31-2024 Vit. D 25-Hydroxy 47.8 ng/mL Normal [facility] Comment on above: Result Comment: Inte rpretive Values Based on Total 25(OH) Vitamin D: Deficient <20 ng/mL Insufficient 20 - <30 ng/mL Sufficient 30-100 ng/mL Performed By: #### V IDH, LIPID, CMP, GFR, TSH #### [address] [address] #### B12 #### [place] [address] Stress Reporton 06-25-2024 Stress Report Normal [facility] BNP,B-Type NATRIURETIC PEPTI Glenn 06-10-2024 Natriuretic peptide B (Bld) [Mass/Vol] 96.4 pg/mL Normal 0-100 [facility] Comment on above: Performed By: #### L 100.0100, L500.2500, L503.6620 ####[facility] [address] [place], [address] Basic Metabolic Profile (BMP )on 06-10-2024 BUN/CRE 18.6 RATIO Normal 10-20 [facility] Comment on above: Performed By: #### L 100.0100, L500.2500, L503.6620 ####[facility] [address] [place], [address] CA,Total 9.5 mg/dL Normal 8.5-10.1 [facility] Comment on above: Performed By: #### L 100.0100, L500.2500, L503.6620 ####[facility] [address] [place], [address] Chloride [Moles/Vol] 101 mmol/L Normal 98-107 [facility] Comment on above: Performed By: #### L 100.0100, L500.2500, L503.6620 ####[facility] [address] [place], [address] CO2 [Moles/Vol] 24.0 mmol/L Normal 21.0-32.0 [facility] Comment on above: Performed By: #### L 100.0100, L500.2500, L503.6620 ####[facility] [address] [place], [address] Creatinine [Mass/Vol] 1.13 mg/dL High 0.55-1.02 [facility] Comment on above: Result Comment: The validity of the calculated GFR GFRAA in patients over70 years has not been determined. Clinical correlation isessential. Performed By: #### L 100.0100, L500.2500, L503.6620 ####[facility] [address] [place], [address] EST GFR - AA 60 mL/min Normal >60 [facility] Comment on above: Result Comment: Afri can [place] GFR Calc Performed By: #### L 100.0100, L500.2500, L503.6620 ####[facility] [address] [place], [address] GAP 9 Normal 5-15 [facility] Comment on above: Performed By: #### L 100.0100, L500.2500, L503.6620 ####[facility] [address] [place], [address] GFR/1.73 sq M.predicted among non-blacks MDRD (S/P/Bld) [Vol rate/Area] 49 mL/min/{1.73_m2} Low >60 [facility] Comment on above: Result Comment: Non- GFR Calc Performed By: #### L 100.0100, L500.2500, L503.6620 ####[facility] [address] [place], [address] Glucose [Mass/Vol] 99 mg/dL Normal 74-106 [facility] Comment on above: Performed By: #### L 100.0100, L500.2500, L503.6620 ####[facility] [address] [place], [address] Potassium [Moles/Vol] 4.4 mmol/L Normal 3.5-5.1 [facility] Comment on above: Performed By: #### L 100.0100, L500.2500, L503.6620 ####[facility] [address] [place], [address] Sodium [Moles/Vol] 134 mmol/L Low 136-145 [facility] Comment on above: Performed By: #### L 100.0100, L500.2500, L503.6620 ####[facility] [address] [place], [address] Urea nitrogen [Mass/Vol] 21 mg/dL High 7-18 [facility] Comment on above: Performed By: #### L 100.0100, L500.2500, L503.6620 ####[facility] [address] [place], [address] CBC W/Diff, Automatedon 09-09 30-2023 Absolute Lymph 0.90 X10 3/uL Normal 0.83-4.51 [facility] Comment on above: Performed By: #### L 100.0100, L500.2500, L503.6620 ####[facility] [address] [place], [address] Absolute Neut 3.9 X10 3/uL Normal 2.0-7.7 [facility] Comment on above: Performed By: #### L 100.0100, L500.2500, L503.6620 ####[facility] [address] [place], [address] Basophils/100 WBC (Bld) 0.9 % Normal 0-1 [facility] Comment on above: Performed By: #### L 100.0100, L500.2500, L503.6620 ####[facility] [address] [place], [address] Eosinophils/100 WBC (Bld) 3.3 % Normal 0-5 [facility] Comment on above: Performed By: #### L 100.0100, L500.2500, L503.6620 ####[facility] [address] [place], [address] Erythrocyte distribution width (RBC) [Ratio] 12.1 % Normal 11.6-14.6 [facility] Comment on above: Performed By: #### L 100.0100, L500.2500, L503.6620 ####[facility] [address] [place], [address] Hematocrit (Bld) [Volume fraction] 41.7 % Normal 37-47 [facility] Comment on above: Performed By: #### L 100.0100, L500.2500, L503.6620 ####[facility] [address] [place], [address] Hemoglobin (Bld) [Mass/Vol] 13.5 g/dL Normal 12.0-15.0 [facility] Comment on above: Performed By: #### L 100.0100, L500.2500, L503.6620 ####[facility] [address] [place], [address] IG% 0.200 Normal 0.0-0.9 [facility] Comment on above: Result Comment: IG% - Immature Granulocytes (promyelocytes, myelocytes andmetamyelocytes) > 1% indicates that a LEFT SHIFT is Present. Performed By: #### L 100.0100, L500.2500, L503.6620 ####[facility] [address] [place], [address] Lymphocytes/100 WBC (Bld) 16.3 % Low 19-41 [facility] Comment on above: Performed By: #### L 100.0100, L500.2500, L503.6620 ####[facility] [address] [place], [address] MCH (RBC) [Entitic mass] 28.5 pg Normal 27.0-32.0 [facility] Comment on above: Performed By: #### L 100.0100, L500.2500, L503.6620 ####[facility] [address] [place], [address] MCHC (RBC) [Mass/Vol] 32.4 g/dL Normal 32-36 [facility] Comment on above: Performed By: #### L 100.0100, L500.2500, L503.6620 ####[facility] [address] [place], [address] MCV (RBC) [Entitic vol] 88.0 fL Normal 81-99 [facility] Comment on above: Performed By: #### L 100.0100, L500.2500, L503.6620 ####[facility] [address] [place], [address] Monocytes/100 WBC (Bld) 8.0 % Normal 0-10 [facility] Comment on above: Performed By: #### L 100.0100, L500.2500, L503.6620 ####[facility] [address] [place], [address] Neutrophils/100 WBC (Bld) 71.3 % High 47-70 [facility] Comment on above: Performed By: #### L 100.0100, L500.2500, L503.6620 ####[facility] [address] [place], [address] Nucleated RBC (Bld) [#/Vol] 0 10*3/uL Normal 0-5 [facility] Comment on above: Performed By: #### L 100.0100, L500.2500, L503.6620 ####[facility] [address] [place], [address] Platelet mean volume (Bld) [Entitic vol] 9.3 fL Normal 6.2-12.0 [facility] Comment on above: Performed By: #### L 100.0100, L500.2500, L503.6620 ####[facility] [address] [place], [address] Platelets (Bld) [#/Vol] 276 10*3/uL Normal 150-450 [facility] Comment on above: Performed By: #### L 100.0100, L500.2500, L503.6620 ####[facility] [address] [place], [address] RBC (Bld) [#/Vol] 4.74 10*6/uL Normal 4.2-5.4 [facility] Comment on above: Performed By: #### L 100.0100, L500.2500, L503.6620 ####[facility] [address] [place], [address] RDW SD 39.3 fl Normal 35.1-43.9 [facility] Comment on above: Performed By: #### L 100.0100, L500.2500, L503.6620 ####[facility] [address] [place], [address] WBC (Bld) [#/Vol] 5.5 10*3/uL Normal 4.4-11.0 [facility] Comment on above: Performed By: #### L 100.0100, L500.2500, L503.6620 ####[facility] [address] [place], [address] Cardiology Visit Reporton Cardiology Visit Report Normal [facility] LABORATORYOrdered By: SYSTEM SYSTEM on 05-23-2024 Natriuretic peptide.B prohormone N-Terminal [Mass/Vol] 425 pg/mL Normal 0 - 450 pg/mL AO ADM SS Comment on above: Interpretive Data: N T-proBNP results of less than 300 pg/mL effectively rules out acute congestive heart failure with 99% negative predictive value. PBNPon 05-23-2024 Natriuretic peptide B (Bld) [Mass/Vol] 425 pg/mL Normal 0-450 [facility] ([place]) Comment on above: Result Comment: NT-p roBNP results of less than 300 pg/mL effectively rules out acute congestive heart failure with 99% negative predictive value. Performed By: #### C BC, MG, GFR, ANEU, MDW, ADIFF, DIMER, TROPHS, LIP, CMP #### [address] [address] .Auto Diffon 05-15-2024 Basophil, Absolute 0.0 10 3/mcL Normal 0.0-0.2 [facility] ([place]) Comment on above: Performed By: #### C BC, MG, GFR, ANEU, MDW, ADIFF, DIMER, TROPHS, LIP, CMP #### [place] [address] [place], [place] [address] Basophils/100 WBC (Bld) 0.6 % Normal 0.0-2.5 A [facility] ([place]) Comment on above: Performed By: #### C BC, MG, GFR, ANEU, MDW, ADIFF, DIMER, TROPHS, LIP, CMP #### [address] [address] Eosinophil, Absolute 0.4 10 3/mcL Normal 0.0-0.4 Replaced by [facility] ([place]) Comment on above: Performed By: #### C BC, MG, GFR, ANEU, MDW, ADIFF, DIMER, TROPHS, LIP, CMP #### [address] [address] Eosinophils/100 WBC (Bld) 8.1 % High 0.0-7.0 [facility] ([place]) Comment on above: Performed By: #### C BC, MG, GFR, ANEU, MDW, ADIFF, DIMER, TROPHS, LIP, CMP #### [address] [address] Lymphocyte, Absolute 1.1 10 3/mcL Normal 0.8-3.9 Replaced by [facility] ([place]) Comment on above: Performed By: #### C BC, MG, GFR, ANEU, MDW, ADIFF, DIMER, TROPHS, LIP, CMP #### [address] [address] Lymphocytes/100 WBC (Bld) 21.0 % Normal 10.0-50.0 [facility] ([place]) Comment on above: Performed By: #### C BC, MG, GFR, ANEU, MDW, ADIFF, DIMER, TROPHS, LIP, CMP #### [address] [address] Monocyte, Absolute 0.5 10 3/mcL Normal 0.2-1.0 [facility] ([place]) Comment on above: Performed By: #### C BC, MG, GFR, ANEU, MDW, ADIFF, DIMER, TROPHS, LIP, CMP #### [address] [address] Monocytes/100 WBC (Bld) 9.5 % Normal 1.7-13.0 A [facility] ([place]) Comment on above: Performed By: #### C BC, MG, GFR, ANEU, MDW, ADIFF, DIMER, TROPHS, LIP, CMP #### [address] [address] Neutrophils/100 WBC (Bld) 60.8 % Normal 37.0-80.0 [facility] ([place]) Comment on above: Performed By: #### C BC, MG, GFR, ANEU, MDW, ADIFF, DIMER, TROPHS, LIP, CMP #### [address] [address] .GFRon 05-15-2024 GFR 62 ml/min/1.73sqm Normal [facility] ([place]) Comment on above: Result Comment: GFR Population [...] MDW, ADIFF, DIMER, TROPHS, LIP, CMP #### [address] [address] GFR Non- 51 ml/min/1.73sqm Normal [facility] ([place]) Comment on above: Result Comment: GFR Population [...] MDW, ADIFF, DIMER, TROPHS, LIP, CMP #### [place] [phone] .NEUABSon 05-15-2024 Neutrophil, Absolute 3.3 10 3/mcL Normal 2.9-6.2 Replaced by [facility] ([place]) Comment on above: Performed By: #### C BC, MG, GFR, ANEU, MDW, ADIFF, DIMER, TROPHS, LIP, CMP #### [place] [address] CBCon 05-15-2024 Erythrocyte distribution width (RBC) [Ratio] 12.8 % Normal 11.5-14.5 [facility] ([place]) Comment on above: Performed By: #### C BC, MG, GFR, ANEU, MDW, ADIFF, DIMER, TROPHS, LIP, CMP #### [place] [address] Hematocrit (Bld) [Volume fraction] 40.5 % Normal 37.0-47.0 [facility] ([place]) Comment on above: Performed By: #### C BC, MG, GFR, ANEU, MDW, ADIFF, DIMER, TROPHS, LIP, CMP #### [place] [address] Hgb 13.6 G/dL Normal 12.0-16.0 [facility] ([place]) Comment on above: Performed By: #### C BC, MG, GFR, ANEU, MDW, ADIFF, DIMER, TROPHS, LIP, CMP #### [place] [phone] MCH (RBC) [Entitic mass] 29.9 pg Normal 27.0-31.2 [facility] ([place]) Comment on above: Performed By: #### C BC, MG, GFR, ANEU, MDW, ADIFF, DIMER, TROPHS, LIP, CMP #### [address] [address] MCHC 33.7 G/dL Normal 33.0-37.0 [facility] ([place]) Comment on above: Performed By: #### C BC, MG, GFR, ANEU, MDW, ADIFF, DIMER, TROPHS, LIP, CMP #### [address] [address] MCV (RBC) [Entitic vol] 88.8 fL Normal 80.0-94.0 A [facility] ([place]) Comment on above: Performed By: #### C BC, MG, GFR, ANEU, MDW, ADIFF, DIMER, TROPHS, LIP, CMP #### [address] [address] Platelet 267 10 3/mcL Normal 130-400 [facility] ([place]) Comment on above: Performed By: #### C BC, MG, GFR, ANEU, MDW, ADIFF, DIMER, TROPHS, LIP, CMP #### [address] [address] Platelet mean volume (Bld) [Entitic vol] 7.7 fL Normal 7.4-10.4 [facility] ([place]) Comment on above: Performed By: #### C BC, MG, GFR, ANEU, MDW, ADIFF, DIMER, TROPHS, LIP, CMP #### [address] [address] RBC 4.56 10 6/mcL Normal 4.20-5.40 [facility] ([place]) Comment on above: Performed By: #### C BC, MG, GFR, ANEU, MDW, ADIFF, DIMER, TROPHS, LIP, CMP #### [address] [address] WBC 5.4 10 3/mcL Normal 4.6-10.8 [facility] ([place]) Comment on above: Performed By: #### C BC, MG, GFR, ANEU, MDW, ADIFF, DIMER, TROPHS, LIP, CMP #### [address] [address] CMPon 05-15-2024 Albumin Level 4.1 G/dL Normal 3.4-4.8 [facility] ([place]) Comment on above: Performed By: #### C BC, MG, GFR, ANEU, MDW, ADIFF, DIMER, TROPHS, LIP, CMP #### [place] [phone] Albumin/Globulin [Mass ratio] 1.5 {ratio} Normal 1.1-2.5 [facility] ([place]) Comment on above: Performed By: #### C BC, MG, GFR, ANEU, MDW, ADIFF, DIMER, TROPHS, LIP, CMP #### [address] [address] ALP [Catalytic activity/Vol] 78 U/L Normal 40-135 [facility] ([place]) Comment on above: Performed By: #### C BC, MG, GFR, ANEU, MDW, ADIFF, DIMER, TROPHS, LIP, CMP #### [address] [address] ALT [Catalytic activity/Vol] 26 U/L Normal 14-59 [facility] ([place]) Comment on above: Performed By: #### C BC, MG, GFR, ANEU, MDW, ADIFF, DIMER, TROPHS, LIP, CMP #### [address] [address] AST [Catalytic activity/Vol] 19 U/L Normal 10-40 [facility] ([place]) Comment on above: Performed By: #### C BC, MG, GFR, ANEU, MDW, ADIFF, DIMER, TROPHS, LIP, CMP #### [address] [address] Bili Total 0.6 mg/dL Normal 0.2-1.0 [facility] ([place]) Comment on above: Result Comment: Use of this assay is not recommended for patients undergoing treatment with eltrombopag due to the potential for falsely elevated results. Performed By: #### C BC, MG, GFR, ANEU, MDW, ADIFF, DIMER, TROPHS, LIP, CMP #### [address] [address] BUN/Creatinine Ratio 13 ratio Normal 7-27 [facility] ([place]) Comment on above: Performed By: #### C BC, MG, GFR, ANEU, MDW, ADIFF, DIMER, TROPHS, LIP, CMP #### [place] [address] Calcium [Mass/Vol] 9.7 mg/dL Normal 8.4-10.2 [facility] ([place]) Comment on above: Performed By: #### C BC, MG, GFR, ANEU, MDW, ADIFF, DIMER, TROPHS, LIP, CMP #### [address] [address] Chloride [Moles/Vol] 99 mmol/L Normal 98-107 [facility] ([place]) Comment on above: Performed By: #### C BC, MG, GFR, ANEU, MDW, ADIFF, DIMER, TROPHS, LIP, CMP #### [address] [address] CO2 [Moles/Vol] 32 mmol/L High 23-31 [facility] ([place]) Comment on above: Performed By: #### C BC, MG, GFR, ANEU, MDW, ADIFF, DIMER, TROPHS, LIP, CMP #### [address] [address] Creatinine [Mass/Vol] 1.04 mg/dL High 0.55-1.02 [facility] ([place]) Comment on above: Performed By: #### C BC, MG, GFR, ANEU, MDW, ADIFF, DIMER, TROPHS, LIP, CMP #### [address] [address] Electrolyte Balance 5.0 mEq/L Normal 4.0-15.0 [facility] ([place]) Comment on above: Performed By: #### C BC, MG, GFR, ANEU, MDW, ADIFF, DIMER, TROPHS, LIP, CMP #### [address] [address] Globulin 2.8 G/dL Normal [facility] ([place]) Comment on above: Performed By: #### C BC, MG, GFR, ANEU, MDW, ADIFF, DIMER, TROPHS, LIP, CMP #### [address] [address] Glucose [Mass/Vol] 87 mg/dL Normal 83-110 [facility] ([place]) Comment on above: Performed By: #### C BC, MG, GFR, ANEU, MDW, ADIFF, DIMER, TROPHS, LIP, CMP #### [address] [address] Potassium [Moles/Vol] 4.6 mmol/L Normal 3.5-5.1 [facility] ([place]) Comment on above: Performed By: #### C BC, MG, GFR, ANEU, MDW, ADIFF, DIMER, TROPHS, LIP, CMP #### [address] [address] Sodium [Moles/Vol] 136 mmol/L Normal 136-145 [facility] ([place]) Comment on above: Performed By: #### C BC, MG, GFR, ANEU, MDW, ADIFF, DIMER, TROPHS, LIP, CMP #### [address] [address] Total Protein 6.9 G/dL Normal 6.4-8.2 [facility] ([place]) Comment on above: Performed By: #### C BC, MG, GFR, ANEU, MDW, ADIFF, DIMER, TROPHS, LIP, CMP #### [address] [address] Urea nitrogen [Mass/Vol] 14 mg/dL Normal 7-18 [facility] ([place]) Comment on above: Performed By: #### C BC, MG, GFR, ANEU, MDW, ADIFF, DIMER, TROPHS, LIP, CMP #### [address] [address] [address] ANGIOGRAPHY HEAD W/ CONTR Cassie 05-15-2024 [...] 05/15/2024 9:48:09 AM Ordering Provider: ARGELIA Horan [facility] ([place]) CT ANGIOGRAPHY NECK W/CONTRA STon 05-15-2024 CT [...] 05/15/2024 9:55:06 AM Ordering Provider: ARGELIA Horan [facility]) FT3on 05-15-2024 Free T3 [Mass/Vol] 2.69 pg/mL Normal 2.30-4.00 [facility], [facility]) Comment on above: Performed By: #### C BC, MG, GFR, DAVID, MDW, ADIFF, DIMER, TROPHS, LIP, CMP #### [place] [address] FT4on 05-15-2024 Free T4 [Mass/Vol] 1.01 ng/dL Normal 0.76-1.46 [facility]) Comment on above: Performed By: #### C BC, MG, GFR, ANEU, MDW, ADIFF, DIMER, TROPHS, LIP, CMP #### [place] [address] LABORATORYOrdered By: SYSTEM SYSTEM on 05-15-2024 Albumin [...] 05-15-2024 TSH Qn 0.64 m[IU]/L Normal 0.36-3.74 [facility] ([place]) Comment on above: Performed By: #### C BC, MG, GFR, ANEU, MDW, ADIFF, DIMER, TROPHS, LIP, CMP #### [address] [address] .GFRon 04-15-2024 GFR 56 ml/min/1.73sqm Normal [facility] ([place]) Comment on above: Result Comment: GFR Population [...] MDW, ADIFF, DIMER, TROPHS, LIP, CMP #### [address] [address] GFR Non- 46 ml/min/1.73sqm Normal [facility] ([place]) Comment on above: Result Comment: GFR Population [...] MDW, ADIFF, DIMER, TROPHS, LIP, CMP #### [address] [address] BMPon 04-15-2024 BUN/Creatinine Ratio 18 ratio Normal 7-27 [facility] ([place]) Comment on above: Performed By: #### C BC, MG, GFR, ANEU, MDW, ADIFF, DIMER, TROPHS, LIP, CMP #### [address] [address] Calcium [Mass/Vol] 9.8 mg/dL Normal 8.4-10.2 [facility] ([place]) Comment on above: Performed By: #### C BC, MG, GFR, ANEU, MDW, ADIFF, DIMER, TROPHS, LIP, CMP #### [address] [address] Chloride [Moles/Vol] 100 mmol/L Normal 98-107 [facility] ([place] Comment on above: Performed By: #### C BC, MG, GFR, ANEU, MDW, ADIFF, DIMER, TROPHS, LIP, CMP #### [address] [address] CO2 [Moles/Vol] 33 mmol/L High 23-31 [facility] ([place]) Comment on above: Performed By: #### C BC, MG, GFR, ANEU, MDW, ADIFF, DIMER, TROPHS, LIP, CMP #### [address] [address] Creatinine [Mass/Vol] 1.14 mg/dL High 0.55-1.02 [facility] ([place]) Comment on above: Performed By: #### C BC, MG, GFR, ANEU, MDW, ADIFF, DIMER, TROPHS, LIP, CMP #### [address] [address] Electrolyte Balance 3.0 mEq/L Low 4.0-15.0 [facility] ([place]) Comment on above: Performed By: #### C BC, MG, GFR, ANEU, MDW, ADIFF, DIMER, TROPHS, LIP, CMP #### [address] [address] Glucose [Mass/Vol] 82 mg/dL Low 83-110 [facility] ([place]) Comment on above: Performed By: #### C BC, MG, GFR, ANEU, MDW, ADIFF, DIMER, TROPHS, LIP, CMP #### [address] [address] Potassium [Moles/Vol] 5.0 mmol/L Normal 3.5-5.1 [facility] ([place]) Comment on above: Performed By: #### C BC, MG, GFR, ANEU, MDW, ADIFF, DIMER, TROPHS, LIP, CMP #### [address] [address] Sodium [Moles/Vol] 136 mmol/L Normal 136-145 [facility] ([place]) Comment on above: Performed By: #### C BC, MG, GFR, ANEU, MDW, ADIFF, DIMER, TROPHS, LIP, CMP #### [place] [address] Urea nitrogen [Mass/Vol] 20 mg/dL High 7-18 [facility] ([place]) Comment on above: Performed By: #### C BC, MG, GFR, ANEU, MDW, ADIFF, DIMER, TROPHS, LIP, CMP #### [place] [address] FT3on 04-15-2024 Free T3 [Mass/Vol] 2.83 pg/mL Normal 2.30-4.00 [facility] ([place]) Comment on above: Performed By: #### C BC, MG, GFR, ANEU, MDW, ADIFF, DIMER, TROPHS, LIP, CMP #### [address] [address] FT4on 04-15-2024 Free T4 [Mass/Vol] 0.86 ng/dL Normal 0.76-1.46 [facility] ([place]) Comment on above: Performed By: #### C BC, MG, GFR, ANEU, MDW, ADIFF, DIMER, TROPHS, LIP, CMP #### [place] [address] LABORATORYOrdered By: SYSTEM SYSTEM on 04-15-2024 Calcium [...] 04-15-2024 TSH Qn 0.97 m[IU]/L Normal 0.36-3.74 [facility] ([place]) Comment on above: Performed By: #### C BC, MG, GFR, ANEU, MDW, ADIFF, DIMER, TROPHS, LIP, CMP #### [facility] [address] [place], [place] [address] Basic Metabolic Profile (BMP )on 03-20-2024 BUN/CRE 15.6 RATIO Normal 10-20 [facility] Comment on above: Performed By: #### L 500.2500, L501.5200 ####[facility] [address] [place], [address] CA,Total 8.8 mg/dL Normal 8.5-10.1 [facility] Comment on above: Performed By: #### L 500.2500, L501.5200 ####[facility] [address] [place], [address] Chloride [Moles/Vol] 102 mmol/L Normal 98-107 [facility] Comment on above: Performed By: #### L 500.2500, L501.5200 ####[facility] [address] [place], [address] CO2 [Moles/Vol] 29.0 mmol/L Normal 21.0-32.0 [facility] Comment on above: Performed By: #### L 500.2500, L501.5200 ####[facility] [address] [place], [address] Creatinine [Mass/Vol] 1.22 mg/dL High 0.55-1.02 [facility] Comment on above: Result Comment: The validity of the calculated GFR GFRAA in patients over70 years has not been determined. Clinical correlation isessential. Performed By: #### L 500.2500, L501.5200 ####[facility] [address] [place], [address] EST GFR - AA 55 mL/min Low >60 [facility] Comment on above: Result Comment: Afri can [place] GFR Calc Performed By: #### L 500.2500, L501.5200 ####[facility] [address] [place], [address] GAP 6 Normal 5-15 [facility] Comment on above: Performed By: #### L 500.2500, L501.5200 ####[facility] [address] [place], [address] GFR/1.73 sq M.predicted among non-blacks MDRD (S/P/Bld) [Vol rate/Area] 45 mL/min/{1.73_m2} Low >60 [facility] Comment on above: Result Comment: Non- GFR Calc Performed By: #### L 500.2500, L501.5200 ####[facility] [address] [place], [address] Glucose [Mass/Vol] 111 mg/dL High 74-106 [facility] Comment on above: Result Comment: Fast ing Glucose result from 100 to 125 mg/dLsuggests IMPAIRED HOMEOSTASIS per A.D.A. criteria. Performed By: #### L 500.2500, L501.5200 ####[facility] [address] [place], [address] Potassium [Moles/Vol] 3.9 mmol/L Normal 3.5-5.1 [facility] Comment on above: Performed By: #### L 500.2500, L501.5200 ####[facility] [address] [place], [address] Sodium [Moles/Vol] 137 mmol/L Normal 136-145 [facility] Comment on above: Performed By: #### L 500.2500, L501.5200 ####[facility] [address] [place], [address] Urea nitrogen [Mass/Vol] 19 mg/dL High 7-18 [facility] Comment on above: Performed By: #### L 500.2500, L501.5200 ####[facility] [address] [place], [address] Magnesiumon 03-20-2024 Magnesium [Mass/Vol] 2.1 mg/dL Normal 1.6-2.6 [facility] Comment on above: Performed By: #### L 500.2500, L501.5200 ####[facility] [address] [place], [address] 12 Lead EKG performed by BMS on 03-11-2024 12 Lead EKG performed by BMS Normal [facility] Cardiology Visit Reporton Cardiology Visit Report Normal [facility] OSMOUon 03-04-2024 U Osmolality 246 mOsm/kg Low 390-1090 [facility] ([place]) Comment on above: Performed By: #### C BC, MG, GFR, ANEU, MDW, ADIFF, DIMER, TROPHS, LIP, CMP #### [address] [address] .GFRon 03-03-2024 GFR Non- 46 ml/min/1.73sqm Normal [facility] ([place]) Comment on above: Result Comment: GFR Population [...] MDW, ADIFF, DIMER, TROPHS, LIP, CMP #### [address] [address] GFR 56 ml/min/1.73sqm Normal [facility] ([place]) Comment on above: Result Comment: GFR Population [...] MDW, ADIFF, DIMER, TROPHS, LIP, CMP #### [address] [address] BMPon 03-03-2024 BUN/Creatinine Ratio 18 ratio Normal 7-27 [facility] ([place]) Comment on above: Performed By: #### C BC, MG, GFR, ANEU, MDW, ADIFF, DIMER, TROPHS, LIP, CMP #### [address] [address] Calcium [Mass/Vol] 9.2 mg/dL Normal 8.4-10.2 [facility] ([place]) Comment on above: Performed By: #### C BC, MG, GFR, ANEU, MDW, ADIFF, DIMER, TROPHS, LIP, CMP #### [address] [address] Chloride [Moles/Vol] 100 mmol/L Normal 98-107 [facility] ([place]) Comment on above: Performed By: #### C BC, MG, GFR, ANEU, MDW, ADIFF, DIMER, TROPHS, LIP, CMP #### [address] [address] CO2 [Moles/Vol] 31 mmol/L Normal 23-31 [facility] ([place]) Comment on above: Performed By: #### C BC, MG, GFR, ANEU, MDW, ADIFF, DIMER, TROPHS, LIP, CMP #### [address] [address] Creatinine [Mass/Vol] 1.13 mg/dL High 0.55-1.02 [facility] ([place]) Comment on above: Performed By: #### C BC, MG, GFR, ANEU, MDW, ADIFF, DIMER, TROPHS, LIP, CMP #### [address] [address] Electrolyte Balance 7.0 mEq/L Normal 4.0-15.0 [facility] ([place]) Comment on above: Performed By: #### C BC, MG, GFR, ANEU, MDW, ADIFF, DIMER, TROPHS, LIP, CMP #### [address] [address] Glucose [Mass/Vol] 107 mg/dL Normal 83-110 [facility] ([place]) Comment on above: Performed By: #### C BC, MG, GFR, ANEU, MDW, ADIFF, DIMER, TROPHS, LIP, CMP #### [address] [address] Potassium [Moles/Vol] 5.0 mmol/L Normal 3.5-5.1 [facility] ([place]) Comment on above: Performed By: #### C BC, MG, GFR, ANEU, MDW, ADIFF, DIMER, TROPHS, LIP, CMP #### [address] [address] Sodium [Moles/Vol] 138 mmol/L Normal 136-145 [facility] ([place]) Comment on above: Performed By: #### C BC, MG, GFR, ANEU, MDW, ADIFF, DIMER, TROPHS, LIP, CMP #### [place] [address] Urea nitrogen [Mass/Vol] 20 mg/dL High 7-18 [facility] ([place]) Comment on above: Performed By: #### C BC, MG, GFR, ANEU, MDW, ADIFF, DIMER, TROPHS, LIP, CMP #### [place] [id number] FT3on 03-03-2024 Free T3 [Mass/Vol] 2.14 pg/mL Low 2.30-4.00 [facility] ([place]) Comment on above: Performed By: #### C BC, MG, GFR, ANEU, MDW, ADIFF, DIMER, TROPHS, LIP, CMP #### [place] [address] FT4on 03-03-2024 Free T4 [Mass/Vol] 0.84 ng/dL Normal 0.76-1.46 [facility] ([place]) Comment on above: Performed By: #### C BC, MG, GFR, ANEU, MDW, ADIFF, DIMER, TROPHS, LIP, CMP #### [address] [address] LABORATORYOrdered By: SYSTEM SYSTEM on 03-03-2024 Sodium [...] 27 ratio AO ADM SS LABORATORYOrdered By: aMrio Lay on 03-03-2024 Osmolality [Osmolality] 289 mosm/kg Normal 275 - 300 mOsm/kg Manual Chem SS MGon 03-03-2024 Magnesium [Mass/Vol] 2.1 mg/dL Normal 1.8-2.4 [facility] ([place]) Comment on above: Performed By: #### C BC, MG, GFR, DAVID, MDW, ADIFF, DIMER, TROPHS, LIP, CMP #### [address] [address] NAURon 03-03-2024 Sodium [Moles/Vol] 55 mmol/L Normal 20-110 [facility] ([place]) Comment on above: Performed By: #### C BC, MG, GFR, DAVID, MDW, ADIFF, DIMER, TROPHS, LIP, CMP #### [address] [address] OSMOSon 03-03-2024 Osmolality [Osmolality] 289 mosm/kg Normal 275-300 [facility] ([place]) Comment on above: Performed By: #### C BC, MG, GFR, ANEU, MDW, ADIFF, DIMER, TROPHS, LIP, CMP #### [address] [address] THYABon 03-03-2024 anti-Thyroid Peroxidase 68 units/ml High 0-60 [facility] ([place]) Comment on above: Result Comment: No te - New Reference Range in effect 20 Performed By: #### C BC, MG, GFR, ANEU, MDW, ADIFF, DIMER, TROPHS, LIP, CMP #### [address] [address] Thyroglobulin Ab 21 units/ml Normal 15-60 [facility] ([place]) Comment on above: Result Comment: No te - New Reference Range in effect 20 Performed By: #### C BC, MG, GFR, ANEU, MDW, ADIFF, DIMER, TROPHS, LIP, CMP #### [address] [address] TSHon 03-03-2024 TSH Qn 17.88 m[IU]/L High 0.36-3.74 [facility] ([place]) Comment on above: Performed By: #### C BC, MG, GFR, ANEU, MDW, ADIFF, DIMER, TROPHS, LIP, CMP #### [address] [address] .GFRon 01-30-2024 GFR 54 ml/min/1.73sqm Normal [facility] ([place]) Comment on above: Result Comment: GFR Population [...] MDW, ADIFF, DIMER, TROPHS, LIP, CMP #### [place] [id number] GFR Non- 45 ml/min/1.73sqm Normal [facility] ([place]) Comment on above: Result Comment: GFR Population [...] MDW, ADIFF, DIMER, TROPHS, LIP, CMP #### [address] [address] CMPon 01-30-2024 Albumin Level 4.4 G/dL Normal 3.4-4.8 [facility] ([place]) Comment on above: Performed By: #### C BC, MG, GFR, ANEU, MDW, ADIFF, DIMER, TROPHS, LIP, CMP #### [address] [address] Albumin/Globulin [Mass ratio] 1.4 {ratio} Normal 1.1-2.5 [facility] ([place]) Comment on above: Performed By: #### C BC, MG, GFR, ANEU, MDW, ADIFF, DIMER, TROPHS, LIP, CMP #### [address] [address] ALP [Catalytic activity/Vol] 78 U/L Normal 40-135 [facility] ([place]) Comment on above: Performed By: #### C BC, MG, GFR, ANEU, MDW, ADIFF, DIMER, TROPHS, LIP, CMP #### [address] [address] ALT [Catalytic activity/Vol] 21 U/L Normal 14-59 [facility] ([place]) Comment on above: Performed By: #### C BC, MG, GFR, ANEU, MDW, ADIFF, DIMER, TROPHS, LIP, CMP #### [address] [address] AST [Catalytic activity/Vol] 18 U/L Normal 10-40 [facility] ([place]) Comment on above: Performed By: #### C BC, MG, GFR, ANEU, MDW, ADIFF, DIMER, TROPHS, LIP, CMP #### [address] [address] Bili Total 0.4 mg/dL Normal 0.2-1.0 [facility] ([place]) Comment on above: Result Comment: Use of this assay is not recommended for patients undergoing treatment with eltrombopag due to the potential for falsely elevated results. Performed By: #### C BC, MG, GFR, ANEU, MDW, ADIFF, DIMER, TROPHS, LIP, CMP #### [address] [address] BUN/Creatinine Ratio 19 ratio Normal 7-27 [facility] ([place]) Comment on above: Performed By: #### C BC, MG, GFR, ANEU, MDW, ADIFF, DIMER, TROPHS, LIP, CMP #### [address] [address] Calcium [Mass/Vol] 9.3 mg/dL Normal 8.4-10.2 [facility] ([place]) Comment on above: Performed By: #### C BC, MG, GFR, ANEU, MDW, ADIFF, DIMER, TROPHS, LIP, CMP #### [address] [address] Chloride [Moles/Vol] 98 mmol/L Normal 98-107 [facility] ([place] Comment on above: Performed By: #### C BC, MG, GFR, ANEU, MDW, ADIFF, DIMER, TROPHS, LIP, CMP #### [address] [address] CO2 [Moles/Vol] 27 mmol/L Normal 23-31 [facility] ([place]) Comment on above: Performed By: #### C BC, MG, GFR, ANEU, MDW, ADIFF, DIMER, TROPHS, LIP, CMP #### [address] [address] Creatinine [Mass/Vol] 1.17 mg/dL High 0.55-1.02 [facility] ([place]) Comment on above: Performed By: #### C BC, MG, GFR, ANEU, MDW, ADIFF, DIMER, TROPHS, LIP, CMP #### [address] [address] Electrolyte Balance 11.0 mEq/L Normal 4.0-15.0 [facility] ([place]) Comment on above: Performed By: #### C BC, MG, GFR, ANEU, MDW, ADIFF, DIMER, TROPHS, LIP, CMP #### [address] [address] Globulin 3.1 G/dL Normal [facility] ([place]) Comment on above: Performed By: #### C BC, MG, GFR, ANEU, MDW, ADIFF, DIMER, TROPHS, LIP, CMP #### [address] [address] Glucose [Mass/Vol] 86 mg/dL Normal 83-110 [facility] ([place]) Comment on above: Performed By: #### C BC, MG, GFR, ANEU, MDW, ADIFF, DIMER, TROPHS, LIP, CMP #### [address] [address] Potassium [Moles/Vol] 4.6 mmol/L Normal 3.5-5.1 [facility] ([place]) Comment on above: Performed By: #### C BC, MG, GFR, ANEU, MDW, ADIFF, DIMER, TROPHS, LIP, CMP #### [address] [address] Sodium [Moles/Vol] 136 mmol/L Normal 136-145 [facility] ([place]) Comment on above: Performed By: #### C BC, MG, GFR, ANEU, MDW, ADIFF, DIMER, TROPHS, LIP, CMP #### [address] [address] Total Protein 7.5 G/dL Normal 6.4-8.2 [facility] ([place]) Comment on above: Performed By: #### C BC, MG, GFR, ANEU, MDW, ADIFF, DIMER, TROPHS, LIP, CMP #### [address] [address] Urea nitrogen [Mass/Vol] 22 mg/dL High 7-18 [facility] ([place]) Comment on above: Performed By: #### C BC, MG, GFR, ANEU, MDW, ADIFF, DIMER, TROPHS, LIP, CMP #### [address] [address] MGon 01-30-2024 Magnesium [Mass/Vol] 2.0 mg/dL Normal 1.8-2.4 [facility] ([place]) Comment on above: Performed By: #### C BC, MG, GFR, ANEU, MDW, ADIFF, DIMER, TROPHS, LIP, CMP #### [address] [address] TSHon 01-30-2024 TSH Qn 29.66 m[IU]/L High 0.36-3.74 [facility] ([place]) Comment on above: Performed By: #### C BC, MG, GFR, ANEU, MDW, ADIFF, DIMER, TROPHS, LIP, CMP #### [address] [address] .GFRon 12-11-2023 GFR 55 ml/min/1.73sqm Normal [facility] ([place]) Comment on above: Result Comment: GFR Population [...] MDW, ADIFF, DIMER, TROPHS, LIP, CMP #### [address] [address] GFR Non- 45 ml/min/1.73sqm Normal [facility] ([place]) Comment on above: Result Comment: GFR Population [...] MDW, ADIFF, DIMER, TROPHS, LIP, CMP #### [address] [address] BMPon 12-11-2023 BUN/Creatinine Ratio 15 ratio Normal 7-27 [facility] ([place]) Comment on above: Performed By: #### C BC, MG, GFR, ANEU, MDW, ADIFF, DIMER, TROPHS, LIP, CMP #### [address] [address] Calcium [Mass/Vol] 9.4 mg/dL Normal 8.4-10.2 [facility] ([place]) Comment on above: Performed By: #### C BC, MG, GFR, ANEU, MDW, ADIFF, DIMER, TROPHS, LIP, CMP #### [address] [address] Chloride [Moles/Vol] 101 mmol/L Normal 98-107 [facility] ([place] Comment on above: Performed By: #### C BC, MG, GFR, ANEU, MDW, ADIFF, DIMER, TROPHS, LIP, CMP #### [address] [address] CO2 [Moles/Vol] 31 mmol/L Normal 23-31 [facility] ([place]) Comment on above: Performed By: #### C BC, MG, GFR, ANEU, MDW, ADIFF, DIMER, TROPHS, LIP, CMP #### [address] [address] Creatinine [Mass/Vol] 1.15 mg/dL High 0.55-1.02 [facility] ([place]) Comment on above: Performed By: #### C BC, MG, GFR, ANEU, MDW, ADIFF, DIMER, TROPHS, LIP, CMP #### [address] [address] Electrolyte Balance 5.0 mEq/L Normal 4.0-15.0 [facility] ([place] Comment on above: Performed By: #### C BC, MG, GFR, ANEU, MDW, ADIFF, DIMER, TROPHS, LIP, CMP #### [address] [address] Glucose [Mass/Vol] 93 mg/dL Normal 83-110 [facility] ([place]) Comment on above: Performed By: #### C BC, MG, GFR, ANEU, MDW, ADIFF, DIMER, TROPHS, LIP, CMP #### [address] [address] Potassium [Moles/Vol] 5.0 mmol/L Normal 3.5-5.1 [facility] ([place]) Comment on above: Performed By: #### C BC, MG, GFR, ANEU, MDW, ADIFF, DIMER, TROPHS, LIP, CMP #### [address] [address] Sodium [Moles/Vol] 137 mmol/L Normal 136-145 [facility] ([place]) Comment on above: Performed By: #### C BC, MG, GFR, ANEU, MDW, ADIFF, DIMER, TROPHS, LIP, CMP #### [address] [address] Urea nitrogen [Mass/Vol] 17 mg/dL Normal 7-18 [facility] ([place]) Comment on above: Performed By: #### C BC, MG, GFR, ANEU, MDW, ADIFF, DIMER, TROPHS, LIP, CMP #### [place] [address] [place], [place] [address] LABORATORYOrdered By: SYSTEM SYSTEM on 12-11-2023 Calcium [...] SS .GFRon 12-04-2023 GFR 54 ml/min/1.73sqm Normal [facility] ([place]) Comment on above: Result Comment: GFR Population [...] MDW, ADIFF, DIMER, TROPHS, LIP, CMP #### [address] [address] GFR Non- 45 ml/min/1.73sqm Normal [facility] ([place]) Comment on above: Result Comment: GFR Population [...] MDW, ADIFF, DIMER, TROPHS, LIP, CMP #### [address] [address] BMPon 12-04-2023 BUN/Creatinine Ratio 18 ratio Normal 7-27 [facility] ([place] Comment on above: Performed By: #### C BC, MG, GFR, ANEU, MDW, ADIFF, DIMER, TROPHS, LIP, CMP #### [address] [address] Calcium [Mass/Vol] 9.8 mg/dL Normal 8.4-10.2 [facility] ([place]) Comment on above: Performed By: #### C BC, MG, GFR, ANEU, MDW, ADIFF, DIMER, TROPHS, LIP, CMP #### [address] [address] Chloride [Moles/Vol] 100 mmol/L Normal 98-107 [facility] ([place] Comment on above: Performed By: #### C BC, MG, GFR, ANEU, MDW, ADIFF, DIMER, TROPHS, LIP, CMP #### [address] [address] CO2 [Moles/Vol] 29 mmol/L Normal 23-31 [facility] ([place]) Comment on above: Performed By: #### C BC, MG, GFR, ANEU, MDW, ADIFF, DIMER, TROPHS, LIP, CMP #### [address] [address] Creatinine [Mass/Vol] 1.16 mg/dL High 0.55-1.02 [facility] ([place] Comment on above: Performed By: #### C BC, MG, GFR, ANEU, MDW, ADIFF, DIMER, TROPHS, LIP, CMP #### [address] [address] Electrolyte Balance 8.0 mEq/L Normal 4.0-15.0 [facility] ([place] Comment on above: Performed By: #### C BC, MG, GFR, ANEU, MDW, ADIFF, DIMER, TROPHS, LIP, CMP #### [address] [address] Glucose [Mass/Vol] 111 mg/dL High 83-110 [facility] ([place]) Comment on above: Performed By: #### C BC, MG, GFR, ANEU, MDW, ADIFF, DIMER, TROPHS, LIP, CMP #### [address] [address] Potassium [Moles/Vol] 4.2 mmol/L Normal 3.5-5.1 [facility] ([place] Comment on above: Performed By: #### C BC, MG, GFR, ANEU, MDW, ADIFF, DIMER, TROPHS, LIP, CMP #### [address] [address] Sodium [Moles/Vol] 137 mmol/L Normal 136-145 [facility] ([place]) Comment on above: Performed By: #### C BC, MG, GFR, ANEU, MDW, ADIFF, DIMER, TROPHS, LIP, CMP #### [address] [address] Urea nitrogen [Mass/Vol] 21 mg/dL High 7-18 [facility] ([place]) Comment on above: Performed By: #### C BC, MG, GFR, ANEU, MDW, ADIFF, DIMER, TROPHS, LIP, CMP #### [place] [address] LABORATORYOrdered By: Juliet Celeste on 12-04-2023 Albumin [...] 12-04-2023 U Creatinine 18.9 mg/dL Low 28.0-117.0 [facility] ([place]) Comment on above: Performed By: #### C BC, MG, GFR, ANEU, MDW, ADIFF, DIMER, TROPHS, LIP, CMP #### [address] [address] U Microalb 870 mcg/dL Normal [facility] ([place]) Comment on above: Performed By: #### C BC, MG, GFR, ANEU, MDW, ADIFF, DIMER, TROPHS, LIP, CMP #### [address] [address] U Ratio Alb/Cre 46 mcg/mg High 0-30 [facility] ([place]) Comment on above: Performed By: #### C BC, MG, GFR, ANEU, MDW, ADIFF, DIMER, TROPHS, LIP, CMP #### [address] [address] .GFRon 10-10-2023 GFR 57 ml/min/1.73sqm Normal [facility] ([place]) Comment on above: Result Comment: GFR Population [...] MDW, ADIFF, DIMER, TROPHS, LIP, CMP #### [address] [address] GFR Non- 47 ml/min/1.73sqm Normal [facility] ([place]) Comment on above: Result Comment: GFR Population [...] MDW, ADIFF, DIMER, TROPHS, LIP, CMP #### [address] [address] BMPon 10-10-2023 BUN/Creatinine Ratio 15 ratio Normal 7- [facility] ([place]) Comment on above: Performed By: #### C BC, MG, GFR, ANEU, MDW, ADIFF, DIMER, TROPHS, LIP, CMP #### [address] [address] Calcium [Mass/Vol] 9.1 mg/dL Normal 8.4-10.2 [facility] ([place]) Comment on above: Performed By: #### C BC, MG, GFR, ANEU, MDW, ADIFF, DIMER, TROPHS, LIP, CMP #### [address] [address] Chloride [Moles/Vol] 100 mmol/L Normal 98-107 [facility] ([place]) Comment on above: Performed By: #### C BC, MG, GFR, ANEU, MDW, ADIFF, DIMER, TROPHS, LIP, CMP #### [address] [address] CO2 [Moles/Vol] 28 mmol/L Normal 23-31 [facility] ([place]) Comment on above: Performed By: #### C BC, MG, GFR, ANEU, MDW, ADIFF, DIMER, TROPHS, LIP, CMP #### [address] [address] Creatinine [Mass/Vol] 1.11 mg/dL High 0.55-1.02 [facility] ([place]) Comment on above: Performed By: #### C BC, MG, GFR, ANEU, MDW, ADIFF, DIMER, TROPHS, LIP, CMP #### [address] [address] Electrolyte Balance 9.0 mEq/L Normal 4.0-15.0 [facility] ([place]) Comment on above: Performed By: #### C BC, MG, GFR, ANEU, MDW, ADIFF, DIMER, TROPHS, LIP, CMP #### [address] [address] Glucose [Mass/Vol] 138 mg/dL High 83-110 [facility] ([place]) Comment on above: Performed By: #### C BC, MG, GFR, ANEU, MDW, ADIFF, DIMER, TROPHS, LIP, CMP #### [address] [address] Potassium [Moles/Vol] 4.4 mmol/L Normal 3.5-5.1 [facility] ([place]) Comment on above: Performed By: #### C BC, MG, GFR, ANEU, MDW, ADIFF, DIMER, TROPHS, LIP, CMP #### [address] [address] Sodium [Moles/Vol] 137 mmol/L Normal 136-145 [facility] ([place]) Comment on above: Performed By: #### C BC, MG, GFR, ANEU, MDW, ADIFF, DIMER, TROPHS, LIP, CMP #### [address] [address] Urea nitrogen [Mass/Vol] 17 mg/dL Normal 7-18 [facility] ([place]) Comment on above: Performed By: #### C BC, MG, GFR, ANEU, MDW, ADIFF, DIMER, TROPHS, LIP, CMP #### [address] [address] LABORATORYOrdered By: SYSTEM SYSTEM on 10-10-2023 Calcium [...] SS .GFRon 09-13-2023 GFR 62 ml/min/1.73sqm Normal [facility] ([place]) Comment on above: Result Comment: GFR Population [...] MDW, ADIFF, DIMER, TROPHS, LIP, CMP #### [address] [address] GFR Non- 51 ml/min/1.73sqm Normal [facility] ([place]) Comment on above: Result Comment: GFR Population [...] MDW, ADIFF, DIMER, TROPHS, LIP, CMP #### [address] [address] [facility] BUN/Creatinine Ratio 14 ratio Normal 7-27 [facility] ([place]) Comment on above: Performed By: #### C BC, MG, GFR, ANEU, MDW, ADIFF, DIMER, TROPHS, LIP, CMP #### [address] [address] Calcium [Mass/Vol] 9.3 mg/dL Normal 8.4-10.2 [facility] ([place]) Comment on above: Performed By: #### C BC, MG, GFR, ANEU, MDW, ADIFF, DIMER, TROPHS, LIP, CMP #### [address] [address] Chloride [Moles/Vol] 98 mmol/L Normal 98-107 [facility] ([place]) Comment on above: Performed By: #### C BC, MG, GFR, ANEU, MDW, ADIFF, DIMER, TROPHS, LIP, CMP #### [address] [address] CO2 [Moles/Vol] 28 mmol/L Normal 23-31 [facility] ([place]) Comment on above: Performed By: #### C BC, MG, GFR, ANEU, MDW, ADIFF, DIMER, TROPHS, LIP, CMP #### [address] [address] Creatinine [Mass/Vol] 1.04 mg/dL High 0.55-1.02 [facility] ([place]) Comment on above: Performed By: #### C BC, MG, GFR, ANEU, MDW, ADIFF, DIMER, TROPHS, LIP, CMP #### [address] [address] Electrolyte Balance 12.0 mEq/L Normal 4.0-15.0 [facility] ([place]) Comment on above: Performed By: #### C BC, MG, GFR, ANEU, MDW, ADIFF, DIMER, TROPHS, LIP, CMP #### [address] [address] Glucose [Mass/Vol] 107 mg/dL Normal 83-110 [facility] ([place]) Comment on above: Performed By: #### C BC, MG, GFR, ANEU, MDW, ADIFF, DIMER, TROPHS, LIP, CMP #### [address] [address] Potassium [Moles/Vol] 4.5 mmol/L Normal 3.5-5.1 [facility] ([place]) Comment on above: Performed By: #### C BC, MG, GFR, ANEU, MDW, ADIFF, DIMER, TROPHS, LIP, CMP #### [address] [address] Sodium [Moles/Vol] 138 mmol/L Normal 136-145 [facility] ([place]) Comment on above: Performed By: #### C BC, MG, GFR, ANEU, MDW, ADIFF, DIMER, TROPHS, LIP, CMP #### [place] [address] [place], [place] [address] Urea nitrogen [Mass/Vol] 15 mg/dL Normal 7-18 [facility] ([place]) Comment on above: Performed By: #### C BC, MG, GFR, ANEU, MDW, ADIFF, DIMER, TROPHS, LIP, CMP #### [address] [address] .GFRon 09-11-2023 GFR Non- 53 ml/min/1.73sqm Normal [facility] ([place]) Comment on above: Result Comment: GFR Population [...] MDW, ADIFF, DIMER, TROPHS, LIP, CMP #### [address] [address] GFR 64 ml/min/1.73sqm Normal [facility] ([place]) Comment on above: Result Comment: GFR Population [...] MDW, ADIFF, DIMER, TROPHS, LIP, CMP #### [address] [address] CMPon 09-11-2023 Albumin Level 4.2 G/dL Normal 3.4-4.8 [facility] ([place]) Comment on above: Performed By: #### C BC, MG, GFR, ANEU, MDW, ADIFF, DIMER, TROPHS, LIP, CMP #### [address] [address] Albumin/Globulin [Mass ratio] 1.3 {ratio} Normal 1.1-2.5 [facility] ([place]) Comment on above: Performed By: #### C BC, MG, GFR, ANEU, MDW, ADIFF, DIMER, TROPHS, LIP, CMP #### [address] [address] ALP [Catalytic activity/Vol] 82 U/L Normal 40-135 [facility] ([place]) Comment on above: Performed By: #### C BC, MG, GFR, ANEU, MDW, ADIFF, DIMER, TROPHS, LIP, CMP #### [address] [address] ALT [Catalytic activity/Vol] 21 U/L Normal 14-59 [facility] ([place]) Comment on above: Performed By: #### C BC, MG, GFR, ANEU, MDW, ADIFF, DIMER, TROPHS, LIP, CMP #### [address] [address] AST [Catalytic activity/Vol] 15 U/L Normal 10-40 [facility] ([place]) Comment on above: Performed By: #### C BC, MG, GFR, ANEU, MDW, ADIFF, DIMER, TROPHS, LIP, CMP #### [address] [address] Bili Total 0.3 mg/dL Normal 0.2-1.0 [facility] ([place]) Comment on above: Result Comment: Use of this assay is not recommended for patients undergoing treatment with eltrombopag due to the potential for falsely elevated results. Performed By: #### C BC, MG, GFR, ANEU, MDW, ADIFF, DIMER, TROPHS, LIP, CMP #### [address] [address] BUN/Creatinine Ratio 15 ratio Normal 7-27 [facility] ([place]) Comment on above: Performed By: #### C BC, MG, GFR, ANEU, MDW, ADIFF, DIMER, TROPHS, LIP, CMP #### [address] [address] Calcium [Mass/Vol] 9.5 mg/dL Normal 8.4-10.2 [facility] ([place]) Comment on above: Performed By: #### C BC, MG, GFR, ANEU, MDW, ADIFF, DIMER, TROPHS, LIP, CMP #### [address] [address] Chloride [Moles/Vol] 96 mmol/L Low 98-107 [facility] ([place]) Comment on above: Performed By: #### C BC, MG, GFR, ANEU, MDW, ADIFF, DIMER, TROPHS, LIP, CMP #### [address] [address] CO2 [Moles/Vol] 31 mmol/L Normal 23-31 [facility] ([place]) Comment on above: Performed By: #### C BC, MG, GFR, ANEU, MDW, ADIFF, DIMER, TROPHS, LIP, CMP #### [address] [address] Creatinine [Mass/Vol] 1.01 mg/dL Normal 0.55-1.02 [facility] ([place]) Comment on above: Performed By: #### C BC, MG, GFR, ANEU, MDW, ADIFF, DIMER, TROPHS, LIP, CMP #### [address] [address] Electrolyte Balance 7.0 mEq/L Normal 4.0-15.0 [facility] ([place]) Comment on above: Performed By: #### C BC, MG, GFR, ANEU, MDW, ADIFF, DIMER, TROPHS, LIP, CMP #### [address] [address] Globulin 3.2 G/dL Normal [facility] ([place]) Comment on above: Performed By: #### C BC, MG, GFR, ANEU, MDW, ADIFF, DIMER, TROPHS, LIP, CMP #### [address] [address] Glucose [Mass/Vol] 107 mg/dL Normal 83-110 [facility] ([place]) Comment on above: Performed By: #### C BC, MG, GFR, ANEU, MDW, ADIFF, DIMER, TROPHS, LIP, CMP #### [address] [address] Potassium [Moles/Vol] 5.5 mmol/L High 3.5-5.1 [facility] ([place]) Comment on above: Performed By: #### C BC, MG, GFR, ANEU, MDW, ADIFF, DIMER, TROPHS, LIP, CMP #### [address] [address] Sodium [Moles/Vol] 134 mmol/L Low 136-145 [facility] ([place]) Comment on above: Performed By: #### C BC, MG, GFR, ANEU, MDW, ADIFF, DIMER, TROPHS, LIP, CMP #### [address] [address] Total Protein 7.4 G/dL Normal 6.4-8.2 [facility] ([place]) Comment on above: Performed By: #### C BC, MG, GFR, ANEU, MDW, ADIFF, DIMER, TROPHS, LIP, CMP #### [address] [address] Urea nitrogen [Mass/Vol] 15 mg/dL Normal 7-18 [facility] ([place]) Comment on above: Performed By: #### C BC, MG, GFR, ANEU, MDW, ADIFF, DIMER, TROPHS, LIP, CMP #### [address] [address] .Auto Diffon 09-02-2023 Basophil, Absolute 0.0 10 3/mcL Normal 0.0-0.2 [facility] ([place]) Comment on above: Performed By: #### C BC, MG, GFR, ANEU, MDW, ADIFF, DIMER, TROPHS, LIP, CMP #### [address] [address] Basophils/100 WBC (Bld) 0.4 % Normal 0.0-2.5 A [facility] ([place]) Comment on above: Performed By: #### C BC, MG, GFR, ANEU, MDW, ADIFF, DIMER, TROPHS, LIP, CMP #### [address] [address] Eosinophil, Absolute 0.1 10 3/mcL Normal 0.0-0.4 Replaced by [facility] ([place]) Comment on above: Performed By: #### C BC, MG, GFR, ANEU, MDW, ADIFF, DIMER, TROPHS, LIP, CMP #### [address] [address] Eosinophils/100 WBC (Bld) 1.4 % Normal 0.0-7.0 [facility] ([place]) Comment on above: Performed By: #### C BC, MG, GFR, ANEU, MDW, ADIFF, DIMER, TROPHS, LIP, CMP #### [address] [address] Lymphocyte, Absolute 0.9 10 3/mcL Normal 0.8-3.9 Replaced by [facility] ([place]) Comment on above: Performed By: #### C BC, MG, GFR, ANEU, MDW, ADIFF, DIMER, TROPHS, LIP, CMP #### [address] [address] Lymphocytes/100 WBC (Bld) 15.7 % Normal 10.0-50.0 [facility] ([place]) Comment on above: Performed By: #### C BC, MG, GFR, ANEU, MDW, ADIFF, DIMER, TROPHS, LIP, CMP #### [address] [address] Monocyte, Absolute 0.4 10 3/mcL Normal 0.2-1.0 [facility] ([place]) Comment on above: Performed By: #### C BC, MG, GFR, ANEU, MDW, ADIFF, DIMER, TROPHS, LIP, CMP #### [address] [address] Monocytes/100 WBC (Bld) 7.9 % Normal 1.7-13.0 [facility] ([place]) Comment on above: Performed By: #### C BC, MG, GFR, ANEU, MDW, ADIFF, DIMER, TROPHS, LIP, CMP #### [address] [address] Neutrophils/100 WBC (Bld) 74.6 % Normal 37.0-80.0 [facility] ([place]) Comment on above: Performed By: #### C BC, MG, GFR, ANEU, MDW, ADIFF, DIMER, TROPHS, LIP, CMP #### [address] [address] .GFRon 09-02-2023 GFR 70 ml/min/1.73sqm Normal [facility] ([place]) Comment on above: Result Comment: GFR Population [...] MDW, ADIFF, DIMER, TROPHS, LIP, CMP #### [address] [address] GFR Non- 58 ml/min/1.73sqm Normal [facility] ([place]) Comment on above: Result Comment: GFR Population [...] MDW, ADIFF, DIMER, TROPHS, LIP, CMP #### [place] [id number] .MDWon 09-02-2023 Monocyte Distribution Width 16.32 Normal 0.00-20.00 [facility] ([place]) Comment on above: Result Comment: For ED adult patients suspected of sepsis, MDW<=20.0 does not rule out sepsis or risk of sepsis Performed By: #### C BC, MG, GFR, ANEU, MDW, ADIFF, DIMER, TROPHS, LIP, CMP #### [address] [address] .NEUABSon 09-02-2023 Neutrophil, Absolute 4.2 10 3/mcL Normal 2.9-6.2 Replaced by [facility] ([place]) Comment on above: Performed By: #### C BC, MG, GFR, ANEU, MDW, ADIFF, DIMER, TROPHS, LIP, CMP #### [address] [address] .Urinalysis Microscopic (AO) on 09-02-2023 UA RBC None Seen Normal None Seen [facility] ([place]) Comment on above: Performed By: #### U A, UAMICAO ####[facility] [place], [place] [address] UA Squam Epithelial 0-5 Abnormal None Seen [facility] ([place]) Comment on above: Performed By: #### U A, UAMICAO ####[place] [address] [place], [place] [address] UA WBC 0-5 Abnormal None Seen [facility] ([place]) Comment on above: Performed By: #### U A, UAMICAO ####[place] [address] [place], [place] [address] BMPon 09-02-2023 BUN/Creatinine Ratio 14 ratio Normal 7-27 [facility] ([place]) Comment on above: Performed By: #### C BC, MG, GFR, ANEU, MDW, ADIFF, DIMER, TROPHS, LIP, CMP #### [address] [address] Calcium [Mass/Vol] 9.3 mg/dL Normal 8.4-10.2 [facility] ([place]) Comment on above: Performed By: #### C BC, MG, GFR, ANEU, MDW, ADIFF, DIMER, TROPHS, LIP, CMP #### [address] [address] Chloride [Moles/Vol] 101 mmol/L Normal 98-107 [facility] ([place]) Comment on above: Performed By: #### C BC, MG, GFR, ANEU, MDW, ADIFF, DIMER, TROPHS, LIP, CMP #### [address] [address] CO2 [Moles/Vol] 27 mmol/L Normal 23-31 [facility] ([place]) Comment on above: Performed By: #### C BC, MG, GFR, ANEU, MDW, ADIFF, DIMER, TROPHS, LIP, CMP #### [address] [address] Creatinine [Mass/Vol] 0.93 mg/dL Normal 0.55-1.02 [facility] ([place]) Comment on above: Performed By: #### C BC, MG, GFR, ANEU, MDW, ADIFF, DIMER, TROPHS, LIP, CMP #### [address] [address] Electrolyte Balance 11.0 mEq/L Normal 4.0-15.0 [facility] ([place]) Comment on above: Performed By: #### C BC, MG, GFR, ANEU, MDW, ADIFF, DIMER, TROPHS, LIP, CMP #### [place] [address] Glucose [Mass/Vol] 101 mg/dL Normal 83-110 [facility] ([place]) Comment on above: Performed By: #### C BC, MG, GFR, ANEU, MDW, ADIFF, DIMER, TROPHS, LIP, CMP #### [address] [address] Potassium [Moles/Vol] 4.4 mmol/L Normal 3.5-5.1 [facility] ([place]) Comment on above: Performed By: #### C BC, MG, GFR, ANEU, MDW, ADIFF, DIMER, TROPHS, LIP, CMP #### [address] [address] Sodium [Moles/Vol] 139 mmol/L Normal 136-145 [facility] ([place]) Comment on above: Performed By: #### C BC, MG, GFR, ANEU, MDW, ADIFF, DIMER, TROPHS, LIP, CMP #### [place] [address] Urea nitrogen [Mass/Vol] 13 mg/dL Normal 7-18 [facility] ([place]) Comment on above: Performed By: #### C BC, MG, GFR, ANEU, MDW, ADIFF, DIMER, TROPHS, LIP, CMP #### [address] [place] [address] CBCon 09-02-2023 Erythrocyte distribution width (RBC) [Ratio] 14.5 % Normal 11.5-14.5 [facility] ([place]) Comment on above: Performed By: #### C BC, MG, GFR, ANEU, MDW, ADIFF, DIMER, TROPHS, LIP, CMP #### [place] [address] Hematocrit (Bld) [Volume fraction] 37.5 % Normal 37.0-47.0 [facility] ([place]) Comment on above: Performed By: #### C BC, MG, GFR, ANEU, MDW, ADIFF, DIMER, TROPHS, LIP, CMP #### [place] [address] Hgb 12.8 G/dL Normal 12.0-16.0 [facility] ([place]) Comment on above: Performed By: #### C BC, MG, GFR, ANEU, MDW, ADIFF, DIMER, TROPHS, LIP, CMP #### [place] [address] MCH (RBC) [Entitic mass] 29.5 pg Normal 27.0-31.2 [facility] ([place]) Comment on above: Performed By: #### C BC, MG, GFR, ANEU, MDW, ADIFF, DIMER, TROPHS, LIP, CMP #### [place] [address] MCHC 34.1 G/dL Normal 33.0-37.0 [facility] ([place]) Comment on above: Performed By: #### C BC, MG, GFR, ANEU, MDW, ADIFF, DIMER, TROPHS, LIP, CMP #### [place] [address] MCV (RBC) [Entitic vol] 86.5 fL Normal 80.0-94.0 [facility] ([place]) Comment on above: Performed By: #### C BC, MG, GFR, ANEU, MDW, ADIFF, DIMER, TROPHS, LIP, CMP #### [address] [address] Platelet 269 10 3/mcL Normal 130-400 [facility] ([place]) Comment on above: Performed By: #### C BC, MG, GFR, ANEU, MDW, ADIFF, DIMER, TROPHS, LIP, CMP #### [address] [address] Platelet mean volume (Bld) [Entitic vol] 7.5 fL Normal 7.4-10.4 [facility] ([place]) Comment on above: Performed By: #### C BC, MG, GFR, ANEU, MDW, ADIFF, DIMER, TROPHS, LIP, CMP #### [address] [address] RBC 4.34 10 6/mcL Normal 4.20-5.40 [facility] ([place]) Comment on above: Performed By: #### C BC, MG, GFR, ANEU, MDW, ADIFF, DIMER, TROPHS, LIP, CMP #### [address] [address] WBC 5.6 10 3/mcL Normal 4.6-10.8 [facility] ([place]) Comment on above: Performed By: #### C BC, MG, GFR, ANEU, MDW, ADIFF, DIMER, TROPHS, LIP, CMP #### [address] [address] [address] HEAD OR BRAIN W/O CONTRAS Ton [...] 09/02/2023 12:12:26 PM Ordering Provider: YAZMIN ANDERS [facility] ([place]) LABORATORYOrdered By: [place] on 09-02-2023 Appearance [...] [Mass/Vol] 1.9 mg/dL Normal 1.8-2.4 [facility] ([place]) Comment on above: Performed By: #### C BC, MG, GFR, ANEU, MDW, ADIFF, DIMER, TROPHS, LIP, CMP #### [address] [address] TROPHSon 09-02-2023 Troponin I High Sensitivity 10.0 ng/L Normal 0.0-51.4 [facility] ([place]) Comment on above: Performed By: #### C BC, MG, GFR, ANEU, MDW, ADIFF, DIMER, TROPHS, LIP, CMP #### [address] [address] TSHon 09-02-2023 TSH Qn 0.37 m[IU]/L Normal 0.36-3.74 [facility] ([place]) Comment on above: Performed By: #### C BC, MG, GFR, ANEU, MDW, ADIFF, DIMER, TROPHS, LIP, CMP #### [address] [place], [place] [address] UAon 09-02-2023 Color (U) Yellow Normal [facility] ([place]) Comment on above: Performed By: #### U A, UAMICAO ####[address] [place] [place] [address] Glucose (U) [Mass/Vol] Negative Normal Negative Replaced by [facility] ([place]) Comment on above: Performed By: #### U A, UAMICAO ####[address] [place] [place], [place] [address] Ketones Ql (U) Negative Normal Negative [facility] ([place]) Comment on above: Performed By: #### U A, UAMICAO ####[address] [place] [id number] UA Appear Clear Normal Clear [facility] ([place]) Comment on above: Performed By: #### U A, UAMICAO ####[facility] [place] [place], [place] [address] UA Blood Negative Normal Negative [facility] ([place]) Comment on above: Performed By: #### U A, UAMICAO ####[address] [place] [place], [place] [address] UA Leuk Est Small Abnormal Negative [facility] ([place]) Comment on above: Performed By: #### U A, UAMICAO ####[facility] [place] [place], [place] [address] UA Nitrite Negative Normal Negative [facility] ([place]) Comment on above: Performed By: #### U A, UAMICAO ####[address] [place] [place], [place] [address] UA pH 7.0 Normal 5.0 - 8.0 [facility] ([place]) Comment on above: Performed By: #### U A, UAMICAO ####[address] [place], [place] [address] UA Protein Negative Normal Negative [facility] ([place]) Comment on above: Performed By: #### U A UAMICAO ####[address] [place], [place] [address] UA Spec Grav 1.010 Abnormal 1.015-1.025 [facility] ([place]) Comment on above: Performed By: #### U A UAMICAO ####[facility] [place] [place], [place] [address] UA Specimen Type Clean Catch Normal [facility] ([place]) Comment on above: Performed By: #### U A UAMICAO ####[facility] [place] [place], [place] [address] UA Urobilinogen 0.2 E.U./dL Normal 0.2-1.0 [facility] ([place]) Comment on above: Performed By: #### U Christina UAMICAO ####[facility] [place] [place], [place] [address] Urobilinogen (U) [Mass/Vol] Negative Normal Negative [facility] ([place]) Comment on above: Performed By: #### U Christina UAMICAO ####[address] [place], [place] [address] XR CHEST 1 VIEWon 09-02-2023 XR CHEST [...] 12:13:24 PM Ordering Provider: YAZMIN ANDERS Normal [facility] ([place]) .GFRon 08-30-2023 GFR 66 ml/min/1.73sqm Normal [facility] ([place]) Comment on above: Result Comment: GFR Population [...] MDW, ADIFF, DIMER, TROPHS, LIP, CMP #### [address] [address] GFR Non- 54 ml/min/1.73sqm Normal [facility] ([place]) Comment on above: Result Comment: GFR Population [...] MDW, ADIFF, DIMER, TROPHS, LIP, CMP #### [address] [address] CMPon 08-30-2023 Albumin Level 4.1 G/dL Normal 3.4-4.8 [facility] ([place]) Comment on above: Performed By: #### C BC, MG, GFR, ANEU, MDW, ADIFF, DIMER, TROPHS, LIP, CMP #### [address] [address] Albumin/Globulin [Mass ratio] 1.4 {ratio} Normal 1.1-2.5 [facility] ([place]) Comment on above: Performed By: #### C BC, MG, GFR, ANEU, MDW, ADIFF, DIMER, TROPHS, LIP, CMP #### [address] [address] ALP [Catalytic activity/Vol] 75 U/L Normal 40-135 [facility] ([place]) Comment on above: Performed By: #### C BC, MG, GFR, ANEU, MDW, ADIFF, DIMER, TROPHS, LIP, CMP #### [address] [address] ALT [Catalytic activity/Vol] 26 U/L Normal 14-59 [facility] ([place]) Comment on above: Performed By: #### C BC, MG, GFR, ANEU, MDW, ADIFF, DIMER, TROPHS, LIP, CMP #### [address] [address] AST [Catalytic activity/Vol] 15 U/L Normal 10-40 [facility] ([place]) Comment on above: Performed By: #### C BC, MG, GFR, ANEU, MDW, ADIFF, DIMER, TROPHS, LIP, CMP #### [address] [address] Bili Total 0.5 mg/dL Normal 0.2-1.0 [facility] ([place]) Comment on above: Result Comment: Use of this assay is not recommended for patients undergoing treatment with eltrombopag due to the potential for falsely elevated results. Performed By: #### C BC, MG, GFR, ANEU, MDW, ADIFF, DIMER, TROPHS, LIP, CMP #### [address] [address] BUN/Creatinine Ratio 14 ratio Normal 7-27 [facility] ([place]) Comment on above: Performed By: #### C BC, MG, GFR, ANEU, MDW, ADIFF, DIMER, TROPHS, LIP, CMP #### [address] [address] Calcium [Mass/Vol] 9.6 mg/dL Normal 8.4-10.2 [facility] ([place]) Comment on above: Performed By: #### C BC, MG, GFR, ANEU, MDW, ADIFF, DIMER, TROPHS, LIP, CMP #### [address] [address] Chloride [Moles/Vol] 100 mmol/L Normal 98-107 [facility] ([place]) Comment on above: Performed By: #### C BC, MG, GFR, ANEU, MDW, ADIFF, DIMER, TROPHS, LIP, CMP #### [address] [address] CO2 [Moles/Vol] 27 mmol/L Normal 23-31 [facility] ([place]) Comment on above: Performed By: #### C BC, MG, GFR, ANEU, MDW, ADIFF, DIMER, TROPHS, LIP, CMP #### [address] [address] Creatinine [Mass/Vol] 0.99 mg/dL Normal 0.55-1.02 [facility] ([place]) Comment on above: Performed By: #### C BC, MG, GFR, ANEU, MDW, ADIFF, DIMER, TROPHS, LIP, CMP #### [address] [address] Electrolyte Balance 9.0 mEq/L Normal 4.0-15.0 [facility] ([place]) Comment on above: Performed By: #### C BC, MG, GFR, ANEU, MDW, ADIFF, DIMER, TROPHS, LIP, CMP #### [address] [address] Globulin 2.9 G/dL Normal [facility] ([place]) Comment on above: Performed By: #### C BC, MG, GFR, ANEU, MDW, ADIFF, DIMER, TROPHS, LIP, CMP #### [address] [address] Glucose [Mass/Vol] 93 mg/dL Normal 83-110 [facility] ([place]) Comment on above: Performed By: #### C BC, MG, GFR, ANEU, MDW, ADIFF, DIMER, TROPHS, LIP, CMP #### [address] [address] Potassium [Moles/Vol] 4.1 mmol/L Normal 3.5-5.1 [facility] ([place]) Comment on above: Performed By: #### C BC, MG, GFR, ANEU, MDW, ADIFF, DIMER, TROPHS, LIP, CMP #### [address] [address] Sodium [Moles/Vol] 136 mmol/L Normal 136-145 [facility] ([place]) Comment on above: Performed By: #### C BC, MG, GFR, ANEU, MDW, ADIFF, DIMER, TROPHS, LIP, CMP #### [address] [address] Total Protein 7.0 G/dL Normal 6.4-8.2 [facility]) Comment on above: Performed By: #### C BC, MG, GFR, ANEU, MDW, ADIFF, DIMER, TROPHS, LIP, CMP #### [address] [address] Urea nitrogen [Mass/Vol] 14 mg/dL Normal 7-18 [facility] ([place]) Comment on above: Performed By: #### C BC, MG, GFR, ANEU, MDW, ADIFF, DIMER, TROPHS, LIP, CMP #### [address] [address] LABORATORYOrdered By: SYSTEM SYSTEM on 08-30-2023 Albumin [...] [Mass/Vol] 1.9 mg/dL Normal 1.8-2.4 [facility] ([place]) Comment on above: Performed By: #### C BC, MG, GFR, ANEU, MDW, ADIFF, DIMER, TROPHS, LIP, CMP #### [place] [address] .GFRon 08-21-2023 GFR 56 ml/min/1.73sqm Normal [facility] ([place]) Comment on above: Result Comment: GFR Population [...] MDW, ADIFF, DIMER, TROPHS, LIP, CMP #### [address] [address] GFR Non- 46 ml/min/1.73sqm Normal [facility] ([place]) Comment on above: Result Comment: GFR Population [...] MDW, ADIFF, DIMER, TROPHS, LIP, CMP #### [address] [address] CMPon 08-21-2023 Albumin Level 4.1 G/dL Normal 3.4-4.8 [facility] ([place]) Comment on above: Performed By: #### C BC, MG, GFR, ANEU, MDW, ADIFF, DIMER, TROPHS, LIP, CMP #### [address] [address] Albumin/Globulin [Mass ratio] 1.3 {ratio} Normal 1.1-2.5 [facility] ([place]) Comment on above: Performed By: #### C BC, MG, GFR, ANEU, MDW, ADIFF, DIMER, TROPHS, LIP, CMP #### [address] [id number] ALP [Catalytic activity/Vol] 75 U/L Normal 40-135 [facility] ([place]) Comment on above: Performed By: #### C BC, MG, GFR, ANEU, MDW, ADIFF, DIMER, TROPHS, LIP, CMP #### [address] [address] ALT [Catalytic activity/Vol] 23 U/L Normal 14-59 [facility] ([place]) Comment on above: Performed By: #### C BC, MG, GFR, ANEU, MDW, ADIFF, DIMER, TROPHS, LIP, CMP #### [address] [id number] AST [Catalytic activity/Vol] 16 U/L Normal 10-40 [facility] ([place]) Comment on above: Performed By: #### C BC, MG, GFR, ANEU, MDW, ADIFF, DIMER, TROPHS, LIP, CMP #### [address] [address] Bili Total 0.4 mg/dL Normal 0.2-1.0 [facility] ([place]) Comment on above: Result Comment: Use of this assay is not recommended for patients undergoing treatment with eltrombopag due to the potential for falsely elevated results. Performed By: #### C BC, MG, GFR, ANEU, MDW, ADIFF, DIMER, TROPHS, LIP, CMP #### [address] [address] BUN/Creatinine Ratio 17 ratio Normal 7-27 [facility] ([place]) Comment on above: Performed By: #### C BC, MG, GFR, ANEU, MDW, ADIFF, DIMER, TROPHS, LIP, CMP #### [address] [address] Calcium [Mass/Vol] 8.4 mg/dL Normal 8.4-10.2 [facility] ([place]) Comment on above: Performed By: #### C BC, MG, GFR, ANEU, MDW, ADIFF, DIMER, TROPHS, LIP, CMP #### [address] [address] Chloride [Moles/Vol] 100 mmol/L Normal 98-107 [facility] ([place]) Comment on above: Performed By: #### C BC, MG, GFR, ANEU, MDW, ADIFF, DIMER, TROPHS, LIP, CMP #### [address] [address] CO2 [Moles/Vol] 26 mmol/L Normal 23-31 [facility] ([place]) Comment on above: Performed By: #### C BC, MG, GFR, ANEU, MDW, ADIFF, DIMER, TROPHS, LIP, CMP #### [address] [address] Creatinine [Mass/Vol] 1.14 mg/dL High 0.55-1.02 [facility] ([place]) Comment on above: Performed By: #### C BC, MG, GFR, ANEU, MDW, ADIFF, DIMER, TROPHS, LIP, CMP #### [place] [address] Electrolyte Balance 10.0 mEq/L Normal 4.0-15.0 [facility] ([place]) Comment on above: Performed By: #### C BC, MG, GFR, ANEU, MDW, ADIFF, DIMER, TROPHS, LIP, CMP #### [address] [address] Globulin 3.1 G/dL Normal [facility] ([place]) Comment on above: Performed By: #### C BC, MG, GFR, ANEU, MDW, ADIFF, DIMER, TROPHS, LIP, CMP #### [place] [address] Glucose [Mass/Vol] 117 mg/dL High 83-110 [facility] ([place]) Comment on above: Performed By: #### C BC, MG, GFR, ANEU, MDW, ADIFF, DIMER, TROPHS, LIP, CMP #### [address] [address] Potassium [Moles/Vol] 4.7 mmol/L Normal 3.5-5.1 [facility] ([place]) Comment on above: Performed By: #### C BC, MG, GFR, ANEU, MDW, ADIFF, DIMER, TROPHS, LIP, CMP #### [address] [address] Sodium [Moles/Vol] 136 mmol/L Normal 136-145 [facility] ([place]) Comment on above: Performed By: #### C BC, MG, GFR, ANEU, MDW, ADIFF, DIMER, TROPHS, LIP, CMP #### [address] [address] Total Protein 7.2 G/dL Normal 6.4-8.2 [facility] ([place]) Comment on above: Performed By: #### C BC, MG, GFR, ANEU, MDW, ADIFF, DIMER, TROPHS, LIP, CMP #### [address] [address] Urea nitrogen [Mass/Vol] 19 mg/dL High 7-18 [facility] ([place]) Comment on above: Performed By: #### C BC, MG, GFR, ANEU, MDW, ADIFF, DIMER, TROPHS, LIP, CMP #### [address] [address] MGon 08-21-2023 Magnesium [Mass/Vol] 2.1 mg/dL Normal 1.8-2.4 [facility] ([place]) Comment on above: Performed By: #### C BC, MG, GFR, ANEU, MDW, ADIFF, DIMER, TROPHS, LIP, CMP #### [address] [address] Absolute lymphocyte countOrd ered By: Juan Diego Marks on 08-08-2023 Lymphocytes Auto (Unsp spec) [#/Vol] 1.62 10*3/uL 0.83-4.51 [facility] Basophil percentageOrdered B y: Juan Diego Marks on 08-08-2023 Basophils/100 WBC (Bld) 1.0 % 0-1 [facility] Chloride [Moles/Vol] 103 mmol/L 98-107 [facility] Eosinophils/100 WBC (Bld) 6.6 % 0-5 [facility] Glucose [Mass/Vol] 93 mg/dL 74-106 [facility] Neutrophils (Bld) [#/Vol] 1.8 10*3/uL 2.0-7.7 [facility] Neutrophils/100 WBC (Bld) 43.2 % 47-70 [facility] Potassium [Moles/Vol] 4.3 mmol/L 3.5-5.1 [facility] Sodium [Moles/Vol] 136 mmol/L 136-145 [facility] WBC (Bld) [#/Vol] 4.1 10*3/uL 4.4-11.0 [facility] Blood erythrocytes count (nu mber/volume)Ordered By: Juan Diego Marks on 08-08-2023 RBC (Bld) [#/Vol] 3.84 10*6/uL 4.2-5.4 [facility] Blood hemoglobin measurement (mass/volume)Ordered By: Juan Diego Marks on 08-08-2023 Hemoglobin (Bld) [Mass/Vol] 10.9 g/dL 12.0-15.0 [facility] Blood lymphocytes/100 leukoc ytesOrdered By: Juan Diego Marks on 08-08-2023 Lymphocytes/100 WBC (Bld) 39.3 % 19-41 [facility] Blood monocytes/100 leukocyt esOrdered By: Juan Diego Marks on 08-08-2023 Monocytes/100 WBC (Bld) 9.7 % 0-10 [facility] Blood platelet mean volumeOr dered By: Juan Diego Marks on 08-08-2023 Platelet mean volume (Bld) [Entitic vol] 9.2 fL 6.2-12.0 [facility] Determination of erythrocyte mean corpuscular volume (MCV)Ordered By: Juan Diego Marks on 08-08-2023 MCV (RBC) [Entitic vol] 89.6 fL 81-99 [facility] Hematocrit Auto (Bld) [Volum e fraction]Ordered By: Juan Diego Marks on 08-08-2023 Hematocrit (Bld) [Volume fraction] 34.4 % 37-47 [facility] - Chemistry and C hemistry - challengeOrdered By: Juan Diego Marks on 08-08-2023 CO2 [Moles/Vol] 32.0 mmol/L 21.0-32.0 [facility] Urea nitrogen/Creatinine [Mass ratio] 23.6 mg/mg 10-20 [facility] - Hematology and Cell countsOrdered By: Juan Diego Marks on 08-08-2023 Erythrocyte distribution width (RBC) [Entitic vol] 43.2 fL 35.1-43.9 [facility] Erythrocyte distribution width (RBC) [Ratio] 13.3 % 11.6-14.6 [facility] Immature granulocytes/100 WBC (Bld) 0.200 % 0.0-0.9 [facility] Comment on above: IG% - Immature Granu locytes (promyelocytes, myelocytes and metamyelocytes) > 1% indicates that a LEFT SHIFT is Present. MCH (RBC) [Entitic mass] 28.4 pg 27.0-32.0 [facility] Nucleated RBC/100 WBC (Bld) [Ratio] 0 % 0-5 [facility] MCHC Auto (RBC) [Mass/Vol]Or dered By: Juan Diego Marks on 08-08-2023 MCHC (RBC) [Mass/Vol] 31.7 g/dL 32-36 [facility] No Panel InformationOrdered By: Juan Diego Marks on 08-08-2023 Estimated Creatinine Clearance Calc 53.38 ml/min [facility] Estimated GFR (MDRD) Amer 88 mL/min >60 [facility] Comment on above: GFR Calc Estimated GFR (MDRD) Non-Af Amer 73 mL/min >60 [facility] Comment on above: Non- GFR Calc Platelets bldOrdered By: Juan Diego Marks on 08-08-2023 Platelets (Bld) [#/Vol] 291 10*3/uL 150-450 [facility] Serum or plasma calcium cindy urement (mass/volume)Ordered By: Juan Diego Marks on 08-08-2023 Calcium [Mass/Vol] 8.9 mg/dL 8.5-10.1 [facility] Serum or plasma creatinine m easurement (mass/volume)Ordered By: Juan Diego Marks on 08-08-2023 Creatinine [Mass/Vol] 0.80 mg/dL 0.55-1.02 [facility] Comment on above: The validity of the calculated GFR & GFRAA in patients over 70 years has not been determined. Clinical correlation is essential. Serum or plasma urea nitroge n measurement (mass/volume)Ordered By: Juan Diego Marks on 08-08-2023 Urea nitrogen [Mass/Vol] 19 mg/dL 7-18 [facility] Thin prep Papanicolaou smear with manual screeningOrdered By: Juan Diego Marks on 08-08-2023 Thin prep Papanicolaou smear with manual screening 1 5-15 [facility] Absolute lymphocyte countOrd ered By: Natalya Wright on 07-31-2023 Lymphocytes Auto (Unsp spec) [#/Vol] 1.03 10*3/uL 0.83-4.51 [facility] Basophil percentageOrdered B y: Natalya Wright on 07-31-2023 Basophils/100 WBC (Bld) 0.4 % 0-1 [facility] Chloride [Moles/Vol] 102 mmol/L 98-107 [facility] Eosinophils/100 WBC (Bld) 2.2 % 0-5 [facility] Glucose [Mass/Vol] 94 mg/dL 74-106 [facility] Neutrophils (Bld) [#/Vol] 3.3 10*3/uL 2.0-7.7 [facility] Neutrophils/100 WBC (Bld) 67.4 % 47-70 [facility] Potassium [Moles/Vol] 3.2 mmol/L 3.5-5.1 [facility] Sodium [Moles/Vol] 133 mmol/L 136-145 [facility] WBC (Bld) [#/Vol] 4.9 10*3/uL 4.4-11.0 [facility] Blood erythrocytes count (nu mber/volume)Ordered By: Natalya Wright on 07-31-2023 RBC (Bld) [#/Vol] 4.30 10*6/uL 4.2-5.4 [facility] Blood hemoglobin measurement (mass/volume)Ordered By: Natalya Wright on 07-31-2023 Hemoglobin (Bld) [Mass/Vol] 12.1 g/dL 12.0-15.0 [facility] Blood lymphocytes/100 leukoc ytesOrdered By: Natalya Wright on 07-31-2023 Lymphocytes/100 WBC (Bld) 21.0 % 19-41 [facility] Blood monocytes/100 leukocyt esOrdered By: Natalya Wright on 07-31-2023 Monocytes/100 WBC (Bld) 8.6 % 0-10 [facility] Blood platelet mean volumeOr dered By: Natalya Wright on 07-31-2023 Platelet mean volume (Bld) [Entitic vol] 9.8 fL 6.2-12.0 [facility] Determination of erythrocyte mean corpuscular volume (MCV)Ordered By: Natalya Wright on 07-31-2023 MCV (RBC) [Entitic vol] 84.7 fL 81-99 [facility] Comment on above: Delta: 80.0 on 07/28-0150 Hematocrit Auto (Bld) [Volum e fraction]Ordered By: Natalya Wright on 07-31-2023 Hematocrit (Bld) [Volume fraction] 36.4 % 37-47 [facility] - Chemistry and C hemistry - challengeOrdered By: Natalya Wright on 07-31-2023 CO2 [Moles/Vol] 25.0 mmol/L 21.0-32.0 [facility] Urea nitrogen/Creatinine [Mass ratio] 13.2 mg/mg 10-20 [facility] - Hematology and Cell countsOrdered By: Natalya Wright on 07-31-2023 Erythrocyte distribution width (RBC) [Entitic vol] 37.4 fL 35.1-43.9 [facility] Erythrocyte distribution width (RBC) [Ratio] 12.3 % 11.6-14.6 [facility] Immature granulocytes/100 WBC (Bld) 0.400 % 0.0-0.9 [facility] Comment on above: IG% - Immature Granu locytes (promyelocytes, myelocytes and metamyelocytes) > 1% indicates that a LEFT SHIFT is Present. MCH (RBC) [Entitic mass] 28.1 pg 27.0-32.0 [facility] Nucleated RBC/100 WBC (Bld) [Ratio] 0 % 0-5 [facility] MCHC Auto (RBC) [Mass/Vol]Or dered By: Natalya Wright on 07-31-2023 MCHC (RBC) [Mass/Vol] 33.2 g/dL 32-36 [facility] Comment on above: Delta: 35.7 on 07/280150 No Panel InformationOrdered By: Natalya Wright on 07-31-2023 Estimated Creatinine Clearance Calc 41.05 ml/min [facility] Estimated GFR (MDRD) Amer 123 mL/min >60 [facility] Comment on above: GFR Calc Estimated GFR (MDRD) Non-Af Amer 101 mL/min >60 [facility] Comment on above: Non- GFR Calc Platelets bldOrdered By: Mao Wright on 07-31-2023 Platelets (Bld) [#/Vol] 274 10*3/uL 150-450 [facility] Serum or plasma calcium cindy urement (mass/volume)Ordered By: Natalya Wright on 07-31-2023 Calcium [Mass/Vol] 8.3 mg/dL 8.5-10.1 [facility] Serum or plasma creatinine m easurement (mass/volume)Ordered By: Natalya Wright on 07-31-2023 Creatinine [Mass/Vol] 0.60 mg/dL 0.55-1.02 [facility] Comment on above: The validity of the calculated GFR & GFRAA in patients over 70 years has not been determined. Clinical correlation is essential. Serum or plasma urea nitroge n measurement (mass/volume)Ordered By: Natalya Wright on 07-31-2023 Urea nitrogen [Mass/Vol] 8 mg/dL 7-18 [facility] Thin prep Papanicolaou smear with manual screeningOrdered By: Natalya Wright on 07-31-2023 Thin prep Papanicolaou smear with manual screening 6 5-15 [facility] Serum or plasma cortisol jyoti surement (mass/volume)Ordered By: Brooks Carcamo on 07-29-2023 Cortisol [Mass/Vol] 25.40 ug/dL 3.44-22.45 [facility] Comment on above: Adult (AM) 5.27 - 22 .45 ug/dL Adult (PM) 3.44 - 16.76 ug/dLPlease note revised CORTISOL reference range effective 2019. Basophil percentageOrdered B y: Madhavi Rio on 07-28-2023 Bilirubin [Mass/Vol] 0.60 mg/dL 0.20-1.00 [facility] Comment on above: For patients on eltr ombopag therapy, use of Dimension [place] TBIL is not recommended. Protein [Mass/Vol] 7.0 g/dL 6.4-8.2 [facility] LDH [Catalytic activity/Vol] 185 U/L 84-246 [facility] Blood manual differential co mment interpretation (narrative result)Ordered By: Madhavi Pate on 07-28-2023 Manual differential comment Michael (Bld) [Interp] SCANNED [facility] Comment on above: LYMPHOPENIA PRESENT Direct bilirubinOrdered By: Madhavi Pate on 07-28-2023 Bilirubin.direct [Mass/Vol] 0.19 mg/dL 0.00-0.30 [facility] - Chemistry and C hemistry - challengeOrdered By: Madhavi Pate on 07-28-2023 Sodium (U) [Moles/Vol] 98 mmol/L Not Establ. [facility] ALP [Catalytic activity/Vol] 68 U/L 45-117 [facility] ALT [Catalytic activity/Vol] 23 U/L 13-56 [facility] Free T4 [Mass/Vol] 1.31 ng/dL 0.76-1.46 [facility] Globulin (S) [Mass/Vol] 3.2 g/dL 2.2-4.2 [facility] Magnesium [Mass/Vol] 2.1 mg/dL 1.6-2.6 [facility] CK [Catalytic activity/Vol] 229 U/L 26-192 [facility] Natriuretic peptide B (Bld) [Mass/Vol] 111.9 pg/mL 0-100 [facility] - Microbiology an d Antimicrobial susceptibilityOrdered By: Brooks Carcamo on 07-28-2023 SARS-CoV-2 (COVID-19) RNA YOLANDA+probe Ql (Unsp spec) SARS-CoV-2 (COVID 19 PCR) [facility] No Panel InformationOrdered By: Madhavi Pate on 07-28-2023 Thyroid Stimulating Hormone (TSH) 0.55 uIU/mL 0.358-3.74 [facility] D-Dimer Quantitative (PE/DVT) 0.68 FEU/ug/m 0.27-0.49 [facility] Comment on above: D-Dimer ELEVATED (>0 .49): Additional studies and clinicalassessments are indicated to conclude diagnosis of:Deep Vein Thrombosis (DVT) or Pulmonary Embolism (PE)CRITICAL VALUE VERIFIED. CALLED TO [id number] [place] Lidia.RESULTS READ BACK BY SAME. Troponin I High Sensitivity 28 pg/mL 3.0-54.0 [facility] Comment on above: Please Note: New Krysta t Units and Gender Specific Reference Ranges. For more information see Policy Stat Procedure [place] High Sensitivity Troponin (TNIH) and attachments. Serum or plasma C reactive p rotein measurement (mass/volume)Ordered By: [facility] on 07-28-2023 CRP [Mass/Vol] mg/L 0.0-3.0 [facility] Comment on above: C-Reactive Protein ( CRP) provides useful information for thediagnosis, therapy and monitoring of inflammatory processesand associated diseases. For the evaluation of Relative Riskfor Cardiovascular Disease, a High Sensitivity CRP (HSCRP)should be ordered. Serum or plasma albumin cindy urement (mass/volume)Ordered By: [facility] on 07-28-2023 Albumin [Mass/Vol] 3.8 g/dL 3.2-5.0 [facility] Serum or plasma ferritin jyoti surement (mass/volume)Ordered By: [facility] 07-28-2023 Ferritin [Mass/Vol] 316 ng/mL 8-252 [facility] Serum procalcitonin measurem entOrdered By: [facility] 07-28-2023 Procalcitonin [Mass/Vol] ng/mL 0.00-0.09 [facility] Comment on above: A procalcitonin (PCT [...] smear with manual screening 28 U/L 15-37 [facility] Urine creatinine measurement (mass/volume)Ordered By: Madhavi Pate on 07-28-2023 Creatinine (U) [Mass/Vol] 37.70 mg/dL NO RANGE EST. [facility] Urine osmolality measurement Ordered By: Madhavi aPte on 07-28-2023 Osmolality (U) [Osmolality] 366 mOsm/KG >50 [facility] Comment on above: Normal Urine Referen ce Ranges Random: 50 - 1200 mOsm/kg H20 depending on fluid intake Random: >850 mOsm/kg after 12 hour fluid restriction 24 hour: ~300 - 900 mOsm/kg H2O .Auto Diffon 07-27-2023 Basophil, Absolute 0.0 10 3/mcL Normal 0.0-0.2 [facility] ([place]) Comment on above: Performed By: #### C BC, MG, GFR, ANEU, MDW, ADIFF, DIMER, TROPHS, LIP, CMP #### [address] [address] Basophils/100 WBC (Bld) 0.4 % Normal 0.0-2.5 A [facility] ([place]) Comment on above: Performed By: #### C BC, MG, GFR, ANEU, MDW, ADIFF, DIMER, TROPHS, LIP, CMP #### [address] [address] Eosinophil, Absolute 0.0 10 3/mcL Normal 0.0-0.4 Replaced by [facility] ([place]) Comment on above: Performed By: #### C BC, MG, GFR, ANEU, MDW, ADIFF, DIMER, TROPHS, LIP, CMP #### [address] [address] Eosinophils/100 WBC (Bld) 1.0 % Normal 0.0-7.0 [facility] ([place]) Comment on above: Performed By: #### C BC, MG, GFR, ANEU, MDW, ADIFF, DIMER, TROPHS, LIP, CMP #### [address] [address] Lymphocyte, Absolute 0.8 10 3/mcL Normal 0.8-3.9 Replaced by [facility] ([place]) Comment on above: Performed By: #### C BC, MG, GFR, ANEU, MDW, ADIFF, DIMER, TROPHS, LIP, CMP #### [address] [address] Lymphocytes/100 WBC (Bld) 21.7 % Normal 10.0-50.0 [facility] ([place]) Comment on above: Performed By: #### C BC, MG, GFR, ANEU, MDW, ADIFF, DIMER, TROPHS, LIP, CMP #### [address] [address] Monocyte, Absolute 0.3 10 3/mcL Normal 0.2-1.0 [facility] ([place]) Comment on above: Performed By: #### C BC, MG, GFR, ANEU, MDW, ADIFF, DIMER, TROPHS, LIP, CMP #### [address] [address] Monocytes/100 WBC (Bld) 8.9 % Normal 1.7-13.0 A [facility] ([place]) Comment on above: Performed By: #### C BC, MG, GFR, ANEU, MDW, ADIFF, DIMER, TROPHS, LIP, CMP #### [address] [address] Neutrophils/100 WBC (Bld) 68.0 % Normal 37.0-80.0 [facility] ([place]) Comment on above: Performed By: #### C BC, MG, GFR, ANEU, MDW, ADIFF, DIMER, TROPHS, LIP, CMP #### [address] [address] .GFRon 07-27-2023 GFR Non- 65 ml/min/1.73sqm Normal [facility] ([place]) Comment on above: Result Comment: GFR Population [...] MDW, ADIFF, DIMER, TROPHS, LIP, CMP #### [address] [address] GFR 79 ml/min/1.73sqm Normal [facility] ([place]) Comment on above: Result Comment: GFR Population [...] MDW, ADIFF, DIMER, TROPHS, LIP, CMP #### [address] [address] GFR Non- 53 ml/min/1.73sqm Normal [facility] ([place]) Comment on above: Result Comment: GFR Population [...] ANEU, MDW, ADIFF, DIMER, TROPHS, LIP, CMP ####[place] [address] [place], [place] [address] GFR 65 ml/min/1.73sqm Normal [facility] ([place]) Comment on above: Result Comment: GFR Population [...] MDW, ADIFF, DIMER, TROPHS, LIP, CMP ####[id number] [place], [place] [address] .MDWon 07-27-2023 Monocyte Distribution Width 18.25 Normal 0.00-20.00 [facility] ([place]) Comment on above: Result Comment: For ED adult patients suspected of sepsis, MDW<=20.0 does not rule out sepsis or risk of sepsis Performed By: #### C BC, MG, GFR, ANEU, MDW, ADIFF, DIMER, TROPHS, LIP, CMP #### [address] [place] [address] [place], [place] [address] .NEUABSon 07-27-2023 Neutrophil, Absolute 2.6 10 3/mcL Low 2.9-6.2 Replaced by [facility] ([place]) Comment on above: Performed By: #### C BC, MG, GFR, ANEU, MDW, ADIFF, DIMER, TROPHS, LIP, CMP #### [address] [address] BMPon 07-27-2023 BUN/Creatinine Ratio 8 ratio Normal 7-27 [facility] ([place]) Comment on above: Performed By: #### C BC, MG, GFR, ANEU, MDW, ADIFF, DIMER, TROPHS, LIP, CMP #### [address] [address] Calcium [Mass/Vol] 8.4 mg/dL Normal 8.4-10.2 [facility] ([place]) Comment on above: Performed By: #### C BC, MG, GFR, ANEU, MDW, ADIFF, DIMER, TROPHS, LIP, CMP #### [address] [address] Chloride [Moles/Vol] 83 mmol/L Low 98-107 [facility] ([place]) Comment on above: Performed By: #### C BC, MG, GFR, ANEU, MDW, ADIFF, DIMER, TROPHS, LIP, CMP #### [address] [address] CO2 [Moles/Vol] 25 mmol/L Normal 23-31 [facility] ([place]) Comment on above: Performed By: #### C BC, MG, GFR, ANEU, MDW, ADIFF, DIMER, TROPHS, LIP, CMP #### [address] [address] Creatinine [Mass/Vol] 0.84 mg/dL Normal 0.55-1.02 [facility] ([place]) Comment on above: Performed By: #### C BC, MG, GFR, ANEU, MDW, ADIFF, DIMER, TROPHS, LIP, CMP #### [address] [address] Electrolyte Balance 11.0 mEq/L Normal 4.0-15.0 [facility] ([place]) Comment on above: Performed By: #### C BC, MG, GFR, ANEU, MDW, ADIFF, DIMER, TROPHS, LIP, CMP #### [address] [address] Glucose [Mass/Vol] 133 mg/dL High 83-110 [facility] ([place]) Comment on above: Performed By: #### C BC, MG, GFR, ANEU, MDW, ADIFF, DIMER, TROPHS, LIP, CMP #### [address] [address] Potassium [Moles/Vol] 3.4 mmol/L Low 3.5-5.1 [facility] ([place]) Comment on above: Performed By: #### C BC, MG, GFR, ANEU, MDW, ADIFF, DIMER, TROPHS, LIP, CMP #### [address] [address] Sodium [Moles/Vol] 119 mmol/L Critically abnormal 136-145 [facility] ([place]) Comment on above: Performed By: #### C BC, MG, GFR, ANEU, MDW, ADIFF, DIMER, TROPHS, LIP, CMP #### [address] [address] Urea nitrogen [Mass/Vol] 7 mg/dL Normal 7-18 [facility] ([place]) Comment on above: Performed By: #### C BC, MG, GFR, ANEU, MDW, ADIFF, DIMER, TROPHS, LIP, CMP #### [address] [address] CBCon 07-27-2023 Erythrocyte distribution width (RBC) [Ratio] 12.8 % Normal 11.5-14.5 [facility]) Comment on above: Performed By: #### C BC, MG, GFR, ANEU, MDW, ADIFF, DIMER, TROPHS, LIP, CMP #### [address] [address] Hematocrit (Bld) [Volume fraction] 37.5 % Normal 37.0-47.0 [facility] ([place]) Comment on above: Performed By: #### C BC, MG, GFR, ANEU, MDW, ADIFF, DIMER, TROPHS, LIP, CMP #### [address] [address] Hgb 13.3 G/dL Normal 12.0-16.0 [facility] ([place]) Comment on above: Performed By: #### C BC, MG, GFR, ANEU, MDW, ADIFF, DIMER, TROPHS, LIP, CMP #### [address] [address] MCH (RBC) [Entitic mass] 28.6 pg Normal 27.0-31.2 [facility] ([place]) Comment on above: Performed By: #### C BC, MG, GFR, ANEU, MDW, ADIFF, DIMER, TROPHS, LIP, CMP #### [place] [address] MCHC 35.4 G/dL Normal 33.0-37.0 [facility] ([place]) Comment on above: Performed By: #### C BC, MG, GFR, ANEU, MDW, ADIFF, DIMER, TROPHS, LIP, CMP #### [address] [address] MCV (RBC) [Entitic vol] 80.7 fL Normal 80.0-94.0 A [facility] ([place]) Comment on above: Performed By: #### C BC, MG, GFR, ANEU, MDW, ADIFF, DIMER, TROPHS, LIP, CMP #### [address] [address] Platelet 282 10 3/mcL Normal 130-400 [facility] ([place]) Comment on above: Performed By: #### C BC, MG, GFR, ANEU, MDW, ADIFF, DIMER, TROPHS, LIP, CMP #### [address] [address] Platelet mean volume (Bld) [Entitic vol] 6.7 fL Low 7.4-10.4 [facility] ([place]) Comment on above: Performed By: #### C BC, MG, GFR, ANEU, MDW, ADIFF, DIMER, TROPHS, LIP, CMP #### [place] [address] [place], [place] [address] RBC 4.64 10 6/mcL Normal 4.20-5.40 [facility] ([place]) Comment on above: Performed By: #### C BC, MG, GFR, ANEU, MDW, ADIFF, DIMER, TROPHS, LIP, CMP #### [address] [address] WBC 3.8 10 3/mcL Low 4.6-10.8 [facility] ([place]) Comment on above: Performed By: #### C BC, MG, GFR, ANEU, MDW, ADIFF, DIMER, TROPHS, LIP, CMP #### [address] [address] CMPon 07-27-2023 Albumin Level 4.2 G/dL Normal 3.4-4.8 [facility] ([place]) Comment on above: Performed By: #### C BC, MG, GFR, ANEU, MDW, ADIFF, DIMER, TROPHS, LIP, CMP ####[id number] [place], [place] [address] Albumin/Globulin [Mass ratio] 1.4 {ratio} Normal 1.1-2.5 [facility] ([place]) Comment on above: Performed By: #### C BC, MG, GFR, ANEU, MDW, ADIFF, DIMER, TROPHS, LIP, CMP ####[id number] [place], [place] [address] ALP [Catalytic activity/Vol] 78 U/L Normal 40-135 [facility] ([place]) Comment on above: Performed By: #### C BC, MG, GFR, ANEU, MDW, ADIFF, DIMER, TROPHS, LIP, CMP ####[address] [place], [place] [address] ALT [Catalytic activity/Vol] 19 U/L Normal 14-59 [facility] ([place]) Comment on above: Performed By: #### C BC, MG, GFR, ANEU, MDW, ADIFF, DIMER, TROPHS, LIP, CMP ####[id number] [place], [place] [address] AST [Catalytic activity/Vol] 21 U/L Normal 10-40 [facility] ([place]) Comment on above: Performed By: #### C BC, MG, GFR, ANEU, MDW, ADIFF, DIMER, TROPHS, LIP, CMP ####[address] [place], [place] [address] Bili Total 0.6 mg/dL Normal 0.2-1.0 [facility] ([place]) Comment on above: Result Comment: Use of this assay is not recommended for patients undergoing treatment with eltrombopag due to the potential for falsely elevated results. Performed By: #### C BC, MG, GFR, ANEU, MDW, ADIFF, DIMER, TROPHS, LIP, CMP ####[address] [place], [place] [address] BUN/Creatinine Ratio 7 ratio Normal 7-27 [facility] ([place]) Comment on above: Performed By: #### C BC, MG, GFR, ANEU, MDW, ADIFF, DIMER, TROPHS, LIP, CMP ####[address] [place], [place] [address] Calcium [Mass/Vol] 9.1 mg/dL Normal 8.4-10.2 [facility] ([place]) Comment on above: Performed By: #### C BC, MG, GFR, ANEU, MDW, ADIFF, DIMER, TROPHS, LIP, CMP ####[address] [place], [place] [address] Chloride [Moles/Vol] 82 mmol/L Low 98-107 [facility] ([place]) Comment on above: Performed By: #### C BC, MG, GFR, ANEU, MDW, ADIFF, DIMER, TROPHS, LIP, CMP ####[address] [place], [place] [address] CO2 [Moles/Vol] 24 mmol/L Normal 23-31 [facility] ([place]) Comment on above: Performed By: #### C BC, MG, GFR, ANEU, MDW, ADIFF, DIMER, TROPHS, LIP, CMP ####[address] [place], [place] [address] Creatinine [Mass/Vol] 1.00 mg/dL Normal 0.55-1.02 [facility] ([place]) Comment on above: Performed By: #### C BC, MG, GFR, ANEU, MDW, ADIFF, DIMER, TROPHS, LIP, CMP ####[address] [place], [place] [address] Electrolyte Balance 13.0 mEq/L Normal 4.0-15.0 [facility] ([place]) Comment on above: Performed By: #### C BC, MG, GFR, ANEU, MDW, ADIFF, DIMER, TROPHS, LIP, CMP ####[address] [place], [place] [address] Globulin 2.9 G/dL Normal [facility] ([place]) Comment on above: Performed By: #### C BC, MG, GFR, ANEU, MDW, ADIFF, DIMER, TROPHS, LIP, CMP ####[address] [place], [place] [address] Glucose [Mass/Vol] 133 mg/dL High 83-110 [facility] ([place]) Comment on above: Performed By: #### C BC, MG, GFR, ANEU, MDW, ADIFF, DIMER, TROPHS, LIP, CMP ####[address] [place], [place] [address] Potassium [Moles/Vol] 3.5 mmol/L Normal 3.5-5.1 [facility] ([place]) Comment on above: Performed By: #### C BC, MG, GFR, ANEU, MDW, ADIFF, DIMER, TROPHS, LIP, CMP ####[address] [place], [place] [address] Sodium [Moles/Vol] 119 mmol/L Critically abnormal 136-145 [facility] ([place]) Comment on above: Performed By: #### C BC, MG, GFR, ANEU, MDW, ADIFF, DIMER, TROPHS, LIP, CMP ####[address] [place], [place] [address] Total Protein 7.1 G/dL Normal 6.4-8.2 [facility] ([place]) Comment on above: Performed By: #### C BC, MG, GFR, ANEU, MDW, ADIFF, DIMER, TROPHS, LIP, CMP ####[address] [place], [place] [address] Urea nitrogen [Mass/Vol] 7 mg/dL Normal 7-18 [facility] ([place]) Comment on above: Performed By: #### C BC, MG, GFR, ANEU, MDW, ADIFF, DIMER, TROPHS, LIP, CMP ####[address] [place], [place] [address] DIMERon 07-27-2023 D-Dimer 287 ng/mL D-DU High 0-230 [facility] ([place]) Comment on above: Result Comment: Resu lts [...] ADIFF, DIMER, TROPHS, LIP, CMP #### [address] [place], [place] [address] LABORATORYOrdered By: SYSTEM SYSTEM on 07-27-2023 Calcium [...] 07-27-2023 Lipase Level 33 U/L Normal 16-77 [facility] ([place]) Comment on above: Performed By: #### C BC, MG, GFR, ANEU, MDW, ADIFF, DIMER, TROPHS, LIP, CMP #### [address] [address] MGon 07-27-2023 Magnesium [Mass/Vol] 1.4 mg/dL Low 1.8-2.4 [facility] ([place]) Comment on above: Performed By: #### C BC, MG, GFR, ANEU, MDW, ADIFF, DIMER, TROPHS, LIP, CMP #### [address] [address] TROPHSon 07-27-2023 Troponin I High Sensitivity 15.6 ng/L Normal 0.0-51.4 [facility] ([place]) Comment on above: Performed By: #### C BC, MG, GFR, ANEU, MDW, ADIFF, DIMER, TROPHS, LIP, CMP #### [place] [address] Troponin I High Sensitivity 10.8 ng/L Normal 0.0-51.4 [facility] ([place]) Comment on above: Performed By: #### C BC, MG, GFR, ANEU, MDW, ADIFF, DIMER, TROPHS, LIP, CMP #### [address] [address] XR CHEST 2 VIEWSon 3 XR CHEST [...] 07/27/2023 8:42:35 PM Ordering Provider: RASHEL Horan [facility] ([place]) .Auto Diffon 07-26-2023 Basophil, Absolute 0.0 10 3/mcL Normal 0.0-0.2 [facility] ([place]) Comment on above: Performed By: #### C BC, MG, GFR, ANEU, MDW, ADIFF, DIMER, TROPHS, LIP, CMP #### [address] [address] Basophils/100 WBC (Bld) 0.2 % Normal 0.0-2.5 [facility] ([place]) Comment on above: Performed By: #### C BC, MG, GFR, ANEU, MDW, ADIFF, DIMER, TROPHS, LIP, CMP #### [address] [address] Eosinophil, Absolute 0.1 10 3/mcL Normal 0.0-0.4 Replaced by [facility] ([place]) Comment on above: Performed By: #### C BC, MG, GFR, ANEU, MDW, ADIFF, DIMER, TROPHS, LIP, CMP #### [address] [address] Eosinophils/100 WBC (Bld) 3.1 % Normal 0.0-7.0 [facility] ([place]) Comment on above: Performed By: #### C BC, MG, GFR, ANEU, MDW, ADIFF, DIMER, TROPHS, LIP, CMP #### [address] [address] Lymphocyte, Absolute 1.2 10 3/mcL Normal 0.8-3.9 Replaced by [facility] ([place]) Comment on above: Performed By: #### C BC, MG, GFR, ANEU, MDW, ADIFF, DIMER, TROPHS, LIP, CMP #### [address] [address] Lymphocytes/100 WBC (Bld) 36.0 % Normal 10.0-50.0 [facility] ([place]) Comment on above: Performed By: #### C BC, MG, GFR, ANEU, MDW, ADIFF, DIMER, TROPHS, LIP, CMP #### [address] [address] Monocyte, Absolute 0.3 10 3/mcL Normal 0.2-1.0 [facility] ([place]) Comment on above: Performed By: #### C BC, MG, GFR, ANEU, MDW, ADIFF, DIMER, TROPHS, LIP, CMP #### [address] [address] Monocytes/100 WBC (Bld) 10.6 % Normal 1.7-13.0 [facility] ([place]) Comment on above: Performed By: #### C BC, MG, GFR, ANEU, MDW, ADIFF, DIMER, TROPHS, LIP, CMP #### [address] [address] Neutrophils/100 WBC (Bld) 50.1 % Normal 37.0-80.0 [facility] ([place]) Comment on above: Performed By: #### C BC, MG, GFR, ANEU, MDW, ADIFF, DIMER, TROPHS, LIP, CMP #### [address] [address] .GFRon 07-26-2023 GFR 75 ml/min/1.73sqm Normal [facility] ([place]) Comment on above: Result Comment: GFR Population [...] MDW, ADIFF, DIMER, TROPHS, LIP, CMP #### [address] [address] GFR Non- 62 ml/min/1.73sqm Normal [facility] ([place]) Comment on above: Result Comment: GFR Population [...] MDW, ADIFF, DIMER, TROPHS, LIP, CMP #### [address] [address] .MDWon 07-26-2023 Monocyte Distribution Width 19.85 Normal 0.00-20.00 [facility] ([place]) Comment on above: Result Comment: For ED adult patients suspected of sepsis, MDW<=20.0 does not rule out sepsis or risk of sepsis Performed By: #### C BC, MG, GFR, ANEU, MDW, ADIFF, DIMER, TROPHS, LIP, CMP #### [address] [address] .NEUABSon 07-26-2023 Neutrophil, Absolute 1.6 10 3/mcL Low 2.9-6.2 Replaced by [facility] ([place]) Comment on above: Performed By: #### C BC, MG, GFR, ANEU, MDW, ADIFF, DIMER, TROPHS, LIP, CMP #### [address] [address] BMPon 07-26-2023 BUN/Creatinine Ratio 10 ratio Normal 7-27 [facility] ([place]) Comment on above: Performed By: #### C BC, MG, GFR, ANEU, MDW, ADIFF, DIMER, TROPHS, LIP, CMP #### [address] [address] Calcium [Mass/Vol] 8.8 mg/dL Normal 8.4-10.2 [facility] ([place]) Comment on above: Performed By: #### C BC, MG, GFR, ANEU, MDW, ADIFF, DIMER, TROPHS, LIP, CMP #### [address] [address] Chloride [Moles/Vol] 90 mmol/L Low 98-107 [facility] ([place]) Comment on above: Performed By: #### C BC, MG, GFR, ANEU, MDW, ADIFF, DIMER, TROPHS, LIP, CMP #### [address] [address] CO2 [Moles/Vol] 27 mmol/L Normal 23-31 [facility] ([place]) Comment on above: Performed By: #### C BC, MG, GFR, ANEU, MDW, ADIFF, DIMER, TROPHS, LIP, CMP #### [address] [address] Creatinine [Mass/Vol] 0.88 mg/dL Normal 0.55-1.02 [facility] ([place]) Comment on above: Performed By: #### C BC, MG, GFR, ANEU, MDW, ADIFF, DIMER, TROPHS, LIP, CMP #### [address] [address] Electrolyte Balance 10.0 mEq/L Normal 4.0-15.0 [facility] ([place]) Comment on above: Performed By: #### C BC, MG, GFR, ANEU, MDW, ADIFF, DIMER, TROPHS, LIP, CMP #### [address] [address] Glucose [Mass/Vol] 115 mg/dL High 83-110 [facility] ([place]) Comment on above: Performed By: #### C BC, MG, GFR, ANEU, MDW, ADIFF, DIMER, TROPHS, LIP, CMP #### [address] [address] Potassium [Moles/Vol] 3.7 mmol/L Normal 3.5-5.1 [facility] ([place]) Comment on above: Performed By: #### C BC, MG, GFR, ANEU, MDW, ADIFF, DIMER, TROPHS, LIP, CMP #### [address] [address] Sodium [Moles/Vol] 127 mmol/L Low 136-145 [facility] ([place]) Comment on above: Performed By: #### C BC, MG, GFR, ANEU, MDW, ADIFF, DIMER, TROPHS, LIP, CMP #### [address] [address] Urea nitrogen [Mass/Vol] 9 mg/dL Normal 7-18 [facility] ([place]) Comment on above: Performed By: #### C BC, MG, GFR, ANEU, MDW, ADIFF, DIMER, TROPHS, LIP, CMP #### [address] [address] CBCon 07-26-2023 Erythrocyte distribution width (RBC) [Ratio] 12.9 % Normal 11.5-14.5 [facility]) Comment on above: Performed By: #### C BC, MG, GFR, ANEU, MDW, ADIFF, DIMER, TROPHS, LIP, CMP #### [address] [address] Hematocrit (Bld) [Volume fraction] 37.4 % Normal 37.0-47.0 [facility] ([place]) Comment on above: Performed By: #### C BC, MG, GFR, ANEU, MDW, ADIFF, DIMER, TROPHS, LIP, CMP #### [address] [address] Hgb 13.0 G/dL Normal 12.0-16.0 [facility] ([place]) Comment on above: Performed By: #### C BC, MG, GFR, ANEU, MDW, ADIFF, DIMER, TROPHS, LIP, CMP #### [address] [address] MCH (RBC) [Entitic mass] 28.5 pg Normal 27.0-31.2 [facility] ([place]) Comment on above: Performed By: #### C BC, MG, GFR, ANEU, MDW, ADIFF, DIMER, TROPHS, LIP, CMP #### [address] [address] MCHC 34.7 G/dL Normal 33.0-37.0 [facility] ([place]) Comment on above: Performed By: #### C BC, MG, GFR, ANEU, MDW, ADIFF, DIMER, TROPHS, LIP, CMP #### [address] [address] MCV (RBC) [Entitic vol] 81.9 fL Normal 80.0-94.0 A [facility] ([place]) Comment on above: Performed By: #### C BC, MG, GFR, ANEU, MDW, ADIFF, DIMER, TROPHS, LIP, CMP #### [address] [address] Platelet 241 10 3/mcL Normal 130-400 [facility] ([place]) Comment on above: Performed By: #### C BC, MG, GFR, ANEU, MDW, ADIFF, DIMER, TROPHS, LIP, CMP #### [address] [address] Platelet mean volume (Bld) [Entitic vol] 6.6 fL Low 7.4-10.4 [facility] ([place]) Comment on above: Performed By: #### C BC, MG, GFR, ANEU, MDW, ADIFF, DIMER, TROPHS, LIP, CMP #### [address] [address] RBC 4.56 10 6/mcL Normal 4.20-5.40 [facility] ([place]) Comment on above: Performed By: #### C BC, MG, GFR, ANEU, MDW, ADIFF, DIMER, TROPHS, LIP, CMP #### [address] [place], [place] [address] WBC 3.3 10 3/mcL Low 4.6-10.8 [facility] ([place]) Comment on above: Performed By: #### C BC, MG, GFR, ANEU, MDW, ADIFF, DIMER, TROPHS, LIP, CMP #### [address] [address] [id number] 07-24-2023 SARS-CoV-2 (COVID-19) RNA OYLANDA+probe Ql (Unsp spec) Positive Abnormal Negative [facility] ([place]) Comment on above: Performed By: #### C BC, MG, GFR, ANEU, MDW, ADIFF, DIMER, TROPHS, LIP, CMP #### [address] [place], [place] [address] SARS-CoV-2 (COVID-19) RNA YOLANDA+probe Ql (Unsp spec) Normal [facility] ([place]) Comment on above: Result Comment: Posi tive results are indicative of the presence of SARS-CoV-2 RNA; clinical correlation with patient history and other diagnostic information is necessary to determine patient infection status. Positive results do not rule out bacterial infection or co-infection with other viruses. The agent detected may not be the definite cause of disease. Laboratories within the [facility] and its territories are required to report [...] JONATHAN, ADNELDA, DIMER, TROPHS, LIP, CMP #### [address] [address] FLURSVon 07-24-2023 Flu A PCR (AO) Negative Normal Negative [facility] ([place]) Comment on above: Result Comment: Posi [...] REPEAT COLLECTION AND TESTING IS RECOMMENDED. The [employer] Flu A/B & RSV Assay is a real-time polymerase chain reaction (PCR) based qualitative in vitro diagnostic test for the direct detection and differentiation of influenza A virus, influenza B virus, and respiratory syncytial virus (RSV) nucleic acid in nasopharyngeal swab (RIVETER HAND) specimens from patients with signs and symptoms [...] W, ADNELDA, DIMER, TROPHS, LIP, CMP #### [address] [address] Flu B PCR (AO) Negative Normal Negative [facility] ([place]) Comment on above: Result Comment: Posi [...] virus (RSV) nucleic acid in nasopharyngeal swab (RIVETER HAND) specimens from patients with signs and symptoms [...] MDW, ADIFF, DIMER, TROPHS, LIP, CMP #### [address] [place], [place] [address] RSV PCR (AO) Negative Normal Negative [facility] ([place]) Comment on above: Result Comment: Posi tive [...] virus (RSV) nucleic acid in nasopharyngeal swab (RIVETER HAND) specimens from patients with signs and symptoms [...] ADIFF, DIMER, TROPHS, LIP, CMP #### [address] [place], [place] [address] LABORATORYOrdered By: Marbella Lema on 07-24-2023 FLUAV [...] REPEAT COLLECTION AND TESTING IS RECOMMENDED. [employer] Flu A/B & RSV Assay is a real-time polymerase chain reaction (PCR) based qualitative in vitro diagnostic test for the direct detection and differentiation of influenza A virus, influenza B virus, and respiratory syncytial virus (RSV) nucleic acid in nasopharyngeal swab (RIVETER HAND) specimens from patients with signs and symptoms [...] virus (RSV) nucleic acid in nasopharyngeal swab (RIVETER HAND) specimens from patients with signs and symptoms [...] virus (RSV) nucleic acid in nasopharyngeal swab (RIVETER HAND) specimens from patients with signs and symptoms [...] definite cause of disease. Laboratories within the [place] and its territories are required to report all positive results to the appropriate public health authorities.Detection of analyte target(s) does not imply that the corresponding virus(es) are infectious or are the causative agents for clinical symptoms.There is a risk of false positive values resulting from cross-contamination by target organisms, their nucleic acids or amplified product, or from non-specific signals in the assay.Eachpal SARS-CoV-2 Assay is a Real-Time reverse-transcriptase polymerase [...] .GFRon 07-16-2023 GFR Non- 60 ml/min/1.73sqm Normal [facility] ([place]) Comment on above: Result Comment: GFR Population [...] ADIFF, DIMER, TROPHS, LIP, CMP #### [address] [address] GFR 73 ml/min/1.73sqm Normal [facility] ([place]) Comment on above: Result Comment: GFR Population [...] MDW, ADIFF, DIMER, TROPHS, LIP, CMP #### [address] [address] CMPon 07-16-2023 Albumin Level 2.6 G/dL Low 3.4-4.8 [facility] ([place]) Comment on above: Performed By: #### C BC, MG, GFR, ANEU, MDW, ADIFF, DIMER, TROPHS, LIP, CMP #### [address] [address] Albumin/Globulin [Mass ratio] 0.6 {ratio} Low 1.1-2.5 [facility] ([place]) Comment on above: Performed By: #### C BC, MG, GFR, ANEU, MDW, ADIFF, DIMER, TROPHS, LIP, CMP #### [address] [address] ALP [Catalytic activity/Vol] 82 U/L Normal 40-135 [facility] ([place]) Comment on above: Performed By: #### C BC, MG, GFR, ANEU, MDW, ADIFF, DIMER, TROPHS, LIP, CMP #### [address] [address] ALT [Catalytic activity/Vol] 21 U/L Normal 14-59 [facility] ([place]) Comment on above: Performed By: #### C BC, MG, GFR, ANEU, MDW, ADIFF, DIMER, TROPHS, LIP, CMP #### [address] [address] AST [Catalytic activity/Vol] 17 U/L Normal 10-40 [facility] ([place]) Comment on above: Performed By: #### C BC, MG, GFR, ANEU, MDW, ADIFF, DIMER, TROPHS, LIP, CMP #### [address] [address] Bili Total 0.3 mg/dL Normal 0.2-1.0 [facility] ([place]) Comment on above: Result Comment: Use of this assay is not recommended for patients undergoing treatment with eltrombopag due to the potential for falsely elevated results. Performed By: #### C BC, MG, GFR, ANEU, MDW, ADIFF, DIMER, TROPHS, LIP, CMP #### [address] [address] BUN/Creatinine Ratio 9 ratio Normal 7-27 [facility] ([place]) Comment on above: Performed By: #### C BC, MG, GFR, ANEU, MDW, ADIFF, DIMER, TROPHS, LIP, CMP #### [address] [address] Calcium [Mass/Vol] 9.0 mg/dL Normal 8.4-10.2 [facility] ([place]) Comment on above: Performed By: #### C BC, MG, GFR, ANEU, MDW, ADIFF, DIMER, TROPHS, LIP, CMP #### [address] [address] Chloride [Moles/Vol] 95 mmol/L Low 98-107 [facility] ([place]) Comment on above: Performed By: #### C BC, MG, GFR, ANEU, MDW, ADIFF, DIMER, TROPHS, LIP, CMP #### [address] [address] CO2 [Moles/Vol] 30 mmol/L Normal 23-31 [facility] ([place]) Comment on above: Performed By: #### C BC, MG, GFR, ANEU, MDW, ADIFF, DIMER, TROPHS, LIP, CMP #### [address] [address] Creatinine [Mass/Vol] 0.90 mg/dL Normal 0.55-1.02 [facility] ([place]) Comment on above: Performed By: #### C BC, MG, GFR, ANEU, MDW, ADIFF, DIMER, TROPHS, LIP, CMP #### [address] [address] Electrolyte Balance 9.0 mEq/L Normal 4.0-15.0 [facility] ([place]) Comment on above: Performed By: #### C BC, MG, GFR, ANEU, MDW, ADIFF, DIMER, TROPHS, LIP, CMP #### [address] [address] Globulin 4.5 G/dL Normal [facility] ([place]) Comment on above: Performed By: #### C BC, MG, GFR, ANEU, MDW, ADIFF, DIMER, TROPHS, LIP, CMP #### [address] [address] Glucose [Mass/Vol] 108 mg/dL Normal 83-110 [facility] ([place]) Comment on above: Performed By: #### C BC, MG, GFR, ANEU, MDW, ADIFF, DIMER, TROPHS, LIP, CMP #### [address] [address] Potassium [Moles/Vol] 4.7 mmol/L Normal 3.5-5.1 [facility] ([place]) Comment on above: Performed By: #### C BC, MG, GFR, ANEU, MDW, ADIFF, DIMER, TROPHS, LIP, CMP #### [address] [address] Sodium [Moles/Vol] 134 mmol/L Low 136-145 [facility] ([place]) Comment on above: Performed By: #### C BC, MG, GFR, ANEU, MDW, ADIFF, DIMER, TROPHS, LIP, CMP #### [address] [address] Total Protein 7.1 G/dL Normal 6.4-8.2 [facility] ([place]) Comment on above: Performed By: #### C BC, MG, GFR, ANEU, MDW, ADIFF, DIMER, TROPHS, LIP, CMP #### [address] [address] Urea nitrogen [Mass/Vol] 8 mg/dL Normal 7-18 [facility] ([place]) Comment on above: Performed By: #### C BC, MG, GFR, ANEU, MDW, ADIFF, DIMER, TROPHS, LIP, CMP #### [address] [place], [place] [address] LABORATORYOrdered By: SYSTEM SYSTEM on 07-16-2023 Albumin [...] SS .GFRon 07-03-2023 GFR 65 ml/min/1.73sqm Normal [facility] ([place]) Comment on above: Result Comment: GFR Population [...] LIPID, VIDH, CMP, GFR, FT4, TSH ####[id number] [place] [address]#### B12 ####[place] [address] GFR Non- 53 ml/min/1.73sqm Normal [facility] ([place]) Comment on above: Result Comment: GFR Population [...] LIPID, VIDH, CMP, GFR, FT4, TSH ####[id number] [place], [place] [address]#### B12 ####[place] [address] [place] [address] B12on 07-03-2023 Cobalamin (Vitamin B12) [Mass/Vol] 711 pg/mL Normal 211-911 [facility] ([place]) Comment on above: Performed By: #### C BC, MG, GFR, ANEU, MDW, ADIFF, DIMER, TROPHS, LIP, CMP #### [address] [address] CMPon 07-03-2023 Albumin Level 4.1 G/dL Normal 3.4-4.8 [facility] ([place]) Comment on above: Performed By: #### C BC, MG, GFR, ANEU, MDW, ADIFF, DIMER, TROPHS, LIP, CMP #### [address] [address] Albumin/Globulin [Mass ratio] 1.3 {ratio} Normal 1.1-2.5 [facility] ([place]) Comment on above: Performed By: #### C BC, MG, GFR, ANEU, MDW, ADIFF, DIMER, TROPHS, LIP, CMP #### [address] [address] ALP [Catalytic activity/Vol] 78 U/L Normal 40-135 [facility] ([place]) Comment on above: Performed By: #### C BC, MG, GFR, ANEU, MDW, ADIFF, DIMER, TROPHS, LIP, CMP #### [address] [address] ALT [Catalytic activity/Vol] 23 U/L Normal 14-59 [facility] ([place]) Comment on above: Performed By: #### C BC, MG, GFR, ANEU, MDW, ADIFF, DIMER, TROPHS, LIP, CMP #### [address] [address] AST [Catalytic activity/Vol] 20 U/L Normal 10-40 [facility] ([place]) Comment on above: Performed By: #### C BC, MG, GFR, ANEU, MDW, ADIFF, DIMER, TROPHS, LIP, CMP #### [address] [address] Bili Total 0.5 mg/dL Normal 0.2-1.0 [facility] ([place]) Comment on above: Result Comment: Use of this assay is not recommended for patients undergoing treatment with eltrombopag due to the potential for falsely elevated results. Performed By: #### C BC, MG, GFR, ANEU, MDW, ADIFF, DIMER, TROPHS, LIP, CMP #### [address] [address] BUN/Creatinine Ratio 13 ratio Normal 7-27 [facility] ([place]) Comment on above: Performed By: #### C BC, MG, GFR, ANEU, MDW, ADIFF, DIMER, TROPHS, LIP, CMP #### [address] [address] Calcium [Mass/Vol] 9.3 mg/dL Normal 8.4-10.2 [facility] ([place]) Comment on above: Performed By: #### C BC, MG, GFR, ANEU, MDW, ADIFF, DIMER, TROPHS, LIP, CMP #### [address] [address] Chloride [Moles/Vol] 94 mmol/L Low 98-107 [facility] ([place]) Comment on above: Performed By: #### C BC, MG, GFR, ANEU, MDW, ADIFF, DIMER, TROPHS, LIP, CMP #### [address] [address] CO2 [Moles/Vol] 32 mmol/L High 23-31 [facility] ([place]) Comment on above: Performed By: #### C BC, MG, GFR, ANEU, MDW, ADIFF, DIMER, TROPHS, LIP, CMP #### [address] [address] Creatinine [Mass/Vol] 1.00 mg/dL Normal 0.55-1.02 [facility] ([place]) Comment on above: Performed By: #### C BC, MG, GFR, ANEU, MDW, ADIFF, DIMER, TROPHS, LIP, CMP #### [address] [address] Electrolyte Balance 6.0 mEq/L Normal 4.0-15.0 [facility] ([place]) Comment on above: Performed By: #### C BC, MG, GFR, ANEU, MDW, ADIFF, DIMER, TROPHS, LIP, CMP #### [address] [address] Globulin 3.1 G/dL Normal [facility] ([place]) Comment on above: Performed By: #### C BC, MG, GFR, ANEU, MDW, ADIFF, DIMER, TROPHS, LIP, CMP #### [place] [address] Glucose [Mass/Vol] 96 mg/dL Normal 83-110 [facility] ([place]) Comment on above: Performed By: #### C BC, MG, GFR, ANEU, MDW, ADIFF, DIMER, TROPHS, LIP, CMP #### [address] [address] Potassium [Moles/Vol] 4.4 mmol/L Normal 3.5-5.1 [facility] ([place]) Comment on above: Performed By: #### C BC, MG, GFR, ANEU, MDW, ADIFF, DIMER, TROPHS, LIP, CMP #### [address] [address] Sodium [Moles/Vol] 132 mmol/L Low 136-145 [facility] ([place]) Comment on above: Performed By: #### C BC, MG, GFR, ANEU, MDW, ADIFF, DIMER, TROPHS, LIP, CMP #### [address] [address] Total Protein 7.2 G/dL Normal 6.4-8.2 [facility] ([place]) Comment on above: Performed By: #### C BC, MG, GFR, ANEU, MDW, ADIFF, DIMER, TROPHS, LIP, CMP #### [address] [address] Urea nitrogen [Mass/Vol] 13 mg/dL Normal 7-18 [facility] ([place]) Comment on above: Performed By: #### C BC, MG, GFR, ANEU, MDW, ADIFF, DIMER, TROPHS, LIP, CMP #### [id number] [place], [place] [address] FT3on 07-03-2023 Free T3 [Mass/Vol] 2.76 pg/mL Normal 2.30-4.00 [facility] ([place]) Comment on above: Performed By: #### M G, FT3, LIPID, VIDH, CMP, GFR, FT4, TSH ####[place] [address]#### B12 ####[address] [address] FT4on 07-03-2023 Free T4 [Mass/Vol] 1.21 ng/dL Normal 0.76-1.46 [facility] ([place]) Comment on above: Performed By: #### M G, FT3, LIPID, VIDH, CMP, GFR, FT4, TSH ####[place] [address]#### B12 ####[address] [address] LIPIDon 07-03-2023 Cholesterol [Mass/Vol] 265 mg/dL High 0-200 Replaced by [facility] ([place]) Comment on above: Result Comment: Chol esterol Reference Interval: Less than 200 Desirable 200-239 Borderline high risk 240 and above High risk Performed By: #### C BC, MG, GFR, ANEU, MDW, ADIFF, DIMER, TROPHS, LIP, CMP #### [address] [address] Cholesterol in HDL [Mass/Vol] 89 mg/dL High 40-60 [facility] ([place]) Comment on above: Performed By: #### C BC, MG, GFR, ANEU, MDW, ADIFF, DIMER, TROPHS, LIP, CMP #### [address] [address] Cholesterol in LDL [Mass/Vol] 167 mg/dL High 0-130 [facility] ([place]) Comment on above: Performed By: #### C BC, MG, GFR, ANEU, MDW, ADIFF, DIMER, TROPHS, LIP, CMP #### [facility] [address] [address] Triglyceride [Mass/Vol] 47 mg/dL Normal 0-150 A [facility] ([place]) Comment on above: Result Comment: Trig lyceride Reference Interval: Less than 150 Normal 150-199 Borderline high risk 200-499 High risk 500 or higher Very high risk Performed By: #### C BC, MG, GFR, ANEU, MDW, ADIFF, DIMER, TROPHS, LIP, CMP #### [facility] [address] [address] MGon 07-03-2023 Magnesium [Mass/Vol] 1.8 mg/dL Normal 1.8-2.4 [facility] ([place]) Comment on above: Performed By: #### M G, FT3, LIPID, VIDH, CMP, GFR, FT4, TSH ####[place] [address]#### B12 ####[place] [address] TSHon 07-03-2023 TSH Qn 0.71 m[IU]/L Normal 0.36-3.74 [facility] ([place]) Comment on above: Performed By: #### M G, FT3, LIPID, VIDH, CMP, GFR, FT4, TSH ####[place] [address]#### B12 ####[place] [address] VIDHon 07-03-2023 Vit. D 25-Hydroxy 55.3 ng/mL Normal [facility] ([place]) Comment on above: Result Comment: Inte rpretive Values Based on Total 25(OH) Vitamin D: Deficient <20 ng/mL Insufficient 20 - <30 ng/mL Sufficient 30-100 ng/mL Performed By: #### M G, FT3, LIPID, VIDH, CMP, GFR, FT4, TSH ####[facility] [address] [place], [place] [address]#### B12 ####[place] [address] LABORATORYOrdered By: SYSTEM SYSTEM on 03-21-2023 25-hydroxyvitamin [...] 72.58 kg Artur Georges MD Work Phone: [email or web address] 03-02-2025 09:01-0400 Diastolic blood pressure 54 mm[Hg] Artur Georges MD Work Phone: [email or web address] 03-02-2025 09:01-0400 Heart rate 73 /min Artur Georges MD Work Phone: [email or web address] 03-02-2025 09:01-0400 Systolic blood pressure 121 mm[Hg] Artur Georges MD Work Phone: [facility] 01-22-2025 10:13-0400 Diastolic blood pressure 54 mm[Hg] Rosita Resendiz [employer] - [employer] Work Phone: [facility] 01-22-2025 10:13-0400 Heart rate 66 /min Rosita [facility] [employer] - [employer] Work Phone: [facility] 01-22-2025 10:13-0400 Systolic blood pressure 110 mm[Hg] [facility] [employer] - [employer] Work Phone: [facility] 12-11-2024 11:43-0400 Body temperature 97.7 [degF] Dr. Argelia Darby DO Work Phone: [facility] 12-11-2024 11:43-0400 Diastolic blood pressure 64 mm[Hg] Dr. Argelia Darby DO Work Phone: [facility] 12-11-2024 11:43-0400 Heart rate 62 /min Dr. Argelia Darby DO Work Phone: [facility] 12-11-2024 11:43-0400 Respiratory rate 18 /min Dr. Argelia Darby DO Work Phone: [facility] 12-11-2024 11:43-0400 SaO2% (BldA) [Mass fraction] 98 % Dr. Argelia Darby DO Work Phone: [facility] 12-11-2024 11:43-0400 Systolic blood pressure 116 mm[Hg] Dr. Argelia Darby DO Work Phone: [facility] 12-11-2024 08:50-0400 Inhaled oxygen flow rate 2 L/min Dr. Argelia Darby DO Work Phone: [facility] 12-07-2024 11:38-0400 Body height 167.[address] Argelia Darby DO Work Phone: [facility] 12-07-2024 11:38-0400 Body weight 79.[address] Argelia Darby DO Work Phone: [facility] 12-06-2024 20:05-0400 Body mass index (BMI) [Ratio] 28.4 kg/m2 Dr. Argelia Darby DO Work Phone: [facility] 12-06-2024 19:02-0400 Body temperature 98.1 [degF] Dr. Argelia Darby DO Work Phone: [facility] 12-06-2024 19:02-0400 Diastolic blood pressure 91 mm[Hg] Dr. Argelia Darby DO Work Phone: [facility] 12-06-2024 19:02-0400 Heart rate 86 /min Dr. Argelia Darby DO Work Phone: [facility] 12-06-2024 19:02-0400 Respiratory rate 18 /min Dr. Argelia Darby DO Work Phone: [facility] 12-06-2024 19:02-0400 SaO2% (BldA) [Mass fraction] 100 % Dr. Argelia Darby DO Work Phone: [facility] 12-06-2024 19:02-0400 Systolic blood pressure 142 mm[Hg] Dr. Argelia Darby DO Work Phone: [facility] 12-06-2024 16:31-0400 Body height 167.[address] Argelia Darby DO Work Phone: [facility] 12-06-2024 16:31-0400 Body mass index (BMI) [Ratio] 30.9 kg/m2 Dr. Argelia Darby DO Work Phone: [facility] 12-06-2024 16:31-0400 Body weight [address] Argelia Darby DO Work Phone: [facility] 12-04-2024 14:48-0400 Body mass index (BMI) [Ratio] 18.7 kg/m2 Dr. Argelia Darby DO Work Phone: [facility] 12-04-2024 14:48-0400 Body weight 52.[address] Argelia Darby DO Work Phone: [facility] 12-04-2024 14:48-0400 Diastolic blood pressure 69 mm[Hg] Dr. Argelia Darby DO Work Phone: [facility] 12-04-2024 14:48-0400 Heart rate 61 /min Dr. Argelia Darby DO Work Phone: [facility] 12-04-2024 14:48-0400 Respiratory rate 18 /min Dr. Argelia Darby DO Work Phone: [facility] 12-04-2024 14:48-0400 Systolic blood pressure 155 mm[Hg] Dr. Argelia Darby DO Work Phone: [facility] 08-28-2024 08:54-0500 Body mass index (BMI) [Ratio] 29.5 kg/m2 Dr. Argelia Darby DO Work Phone: [facility] 08-28-2024 08:54-0500 Body weight [address] Argelia Darby DO Work Phone: [facility] 08-28-2024 08:54-0500 Diastolic blood pressure 73 mm[Hg] Dr. Argelia Darby DO Work Phone: [facility] 08-28-2024 08:54-0500 Heart rate 58 /min Dr. Argelia Darby DO Work Phone: [facility] 08-28-2024 08:54-0500 Respiratory rate 18 /min Dr. Argelia Darby DO Work Phone: [facility] 08-28-2024 08:54-0500 Systolic blood pressure 142 mm[Hg] Dr. Argelia Darby DO Work Phone: [facility] 09-04-2023 11:22-0500 Body height 167.[address] Madhavi Pate Work Phone: [facility] 09-04-2023 11:22-0500 Body mass index (BMI) [Ratio] 28.7 kg/m2 Dr. Madhavi Pate Work Phone: [facility] 09-04-2023 11:22-0500 Body weight 80.[address] Madhavi Pate Work Phone: [facility] 09-04-2023 11:22-0500 Diastolic blood pressure 70 mm[Hg] Dr. Madhavi Pate Work Phone: [facility] 09-04-2023 11:22-0500 Heart rate 61 /min Dr. Madhavi Pate Work Phone: [facility] 09-04-2023 11:22-0500 Respiratory rate 16 /min Dr. Madhavi Pate Work Phone: [facility] 09-04-2023 11:22-0500 Systolic blood pressure 150 mm[Hg] Dr. Madhavi Pate Work Phone: [facility] 09-02-2023 11:12-0500 Blood Pressure Location YAZMIN PACET [employer] [facility] 09-02-2023 11:12-0500 Body temperature 97.88 [degF] YAZMIN PACET DO [facility] 09-02-2023 11:12-0500 Diastolic Blood Pressure Non-Invasive 79 mm[Hg] YAZMIN PACET DO [facility] 09-02-2023 11:12-0500 Heart rate 60 /min YAZMIN PACET DO [facility] 09-02-2023 11:12-0500 Respiratory rate 16 /min YAZMIN PACET DO [facility] 09-02-2023 11:12-0500 Systolic Blood Pressure Non-Invasive 151 mm[Hg] YAZMIN PACET DO [facility] 08-14-2023 11:04-0500 Body temperature 97.2 [degF] Dr. Madhavi Pate Work Phone: [facility] 08-14-2023 11:04-0500 Diastolic blood pressure 58 mm[Hg] Dr. Madhavi Pate Work Phone: [facility] 08-14-2023 11:04-0500 Heart rate 61 /min Dr. Madhavi Pate Work Phone: [facility] 08-14-2023 11:04-0500 Respiratory rate 16 /min Dr. Madhavi Pate Work Phone: [facility] 08-14-2023 11:04-0500 SaO2% (BldA) [Mass fraction] 95 % Dr. Madhavi Pate Work Phone: [facility] 08-14-2023 11:04-0500 Systolic blood pressure 147 mm[Hg] Dr. Madhavi Pate Work Phone: [facility] 08-13-2023 06:00-0500 Body mass index (BMI) [Ratio] 29.1 kg/m2 Dr. Madhavi Pate Work Phone: [facility] 08-13-2023 06:00-0500 Body weight 81.[address] Madhavi Pate Work Phone: [facility] 08-08-2023 15:24-0500 Body height 167.[address] Madhavi Pate Work Phone: [facility] 08-07-2023 08:14-0500 Inhaled oxygen flow rate 1.5 L/min Dr. Madhavi Pate Work Phone: [facility] 07-31-2023 13:56-0500 Body temperature 98.5 [degF] Dr. Madhavi Pate Work Phone: [facility] 07-31-2023 13:56-0500 Diastolic blood pressure 65 mm[Hg] Dr. Madhavi Pate Work Phone: [facility] 11-07-2023 13:56-0500 Heart rate 66 /min Dr. Madhavi Pate Work Phone: [facility] 07-31-2023 13:56-0500 Respiratory rate 18 /min Dr. Madhavi Pate Work Phone: [facility] 07-31-2023 13:56-0500 SaO2% (BldA) [Mass fraction] 100 % Dr. Madhavi Pate Work Phone: [facility] 07-31-2023 13:56-0500 Systolic blood pressure 160 mm[Hg] Dr. Madhavi Pate Work Phone: [facility] 07-31-2023 10:32-0500 Inhaled oxygen flow rate 2 L/min Dr. Madhavi Pate Work Phone: [facility] 07-31-2023 05:44-0500 Body mass index (BMI) [Ratio] 30.7 kg/m2 Dr. Madhavi Pate Work Phone: [facility] 07-31-2023 05:44-0500 Body weight 83.[address] Madhavi Pate Work Phone: [facility] 07-29-2023 09:43-0500 Body height 165.[address] Madhavi Pate Work Phone: [facility] 07-27-2023 22:38-0400 Diastolic Blood Pressure Non-Invasive 71 1 RASHEL CASTILLORENETTA DO [facility] 07-27-2023 22:38-0400 Heart rate 68 /min RASHEL SPANGLER DO [facility] 07-27-2023 22:38-0400 Respiratory rate 18 /min RASHEL SPANGLER DO [facility] 07-27-2023 22:38-0400 Systolic Blood Pressure Non-Invasive 133 1 RASHEL SPANGLER DO [facility] 07-27-2023 22:12-0400 Diastolic Blood Pressure Non-Invasive 92 1 RASHEL SPANGLER DO [facility] 07-27-2023 22:12-0400 Heart rate 91 /min RASHEL DURESKA DO [facility] 07-27-2023 22:12-0400 Respiratory rate 18 /min RASHEL DURESKA DO [facility] 07-27-2023 22:12-0400 Systolic Blood Pressure Non-Invasive 155 1 RASHEL DURESKA DO [facility] 07-27-2023 21:33-0400 Diastolic Blood Pressure Non-Invasive 68 1 RASHEL DURESKA DO [facility] 07-27-2023 21:33-0400 Heart rate 71 /min RASHEL DURESKA DO [facility] 07-27-2023 21:33-0400 Respiratory rate 18 /min RASHEL DURESKA DO [facility] 07-27-2023 21:33-0400 Systolic Blood Pressure Non-Invasive 163 1 RASHEL DURESKA DO [facility] 07-27-2023 19:48-0400 Body temperature 97.88 [degF] RASHEL DURESKA DO [facility] 07-27-2023 19:48-0400 Heart rate 66 /min RASHEL DURESKA DO [facility] Encounters Encounter Date Encounter Type Care Provider Facility Start: 03-02-2025 End: 03-02-2025 Office outpatient visit 25 minutes Artur Georges MD Work Phone: [facility] [place] Comment on above: Urinary retention (P rimary Dx) Start: 03-02-2025 End: 03-02-2025 ambulatory ARTUR GEORGES [facility] Start: 02-18-2025 ambulatory Gene Barretoi ty:[facility] Start: 02-09-2025 ambulatory Gene Yulissa Barretoi ty:[facility] Start: 02-06-2025 ambulatory Argelia Darby Facility :[facility] Start: 01-26-2025 ambulatory Gene Barretoi ty:[facility] Start: 01-23-2025 End: 01-26-2025 Telephone encounter Rosita Resendiz [employer] - [employer] Work Phone: [facility] Comment on above: Appointment Request Start: 01-22-2025 End: 01-22-2025 Office outpatient new 45 minutes Rosita Resendiz [employer] - [employer] Work Phone: [facility] Comment on above: Urinary retention (P rimary Dx) Start: 01-22-2025 End: 01-22-2025 ambulatory [facility] Start: 01-19-2025 End: 01-19-2025 Telephone encounter Artur Georges MD Work Phone: [facility] Clinical Communication Comment on above: Appointment Request Start: 01-19-2025 ambulatory Gene Yulissa Barretoi ty:[facility] Start: 12-19-2024 End: 12-19-2024 ambulatory Argelia Darby Facility:[facility] Start: 12-19-2024 Encounter for preprocedural cardiovascular examination Michelle Dang [facility] Start: 12-11-2024 End: 01-13-2025 Evaluation and management of inpatient Argelia Darby Facility:[facility] Start: 12-11-2024 Non-patient / Non-visit Dr. Radha ESTEVEZ -[facility] Work Phone: Start: 12-10-2024 Non-patient / Non-visit Dr. Madhavi Pate MD -[facility] Work Phone: Start: 12-09-2024 Non-patient / Non-visit Dr. Montse Cabrera MD -[facility] Work Phone: Start: 12-08-2024 Non-patient / Non-visit Dr. Neela Dang MD -[facility] Start: 12-08-2024 Non-patient / Non-visit Dr. Montse Cabrera MD -[facility] Work Phone: Start: 12-07-[address] Wing Darby DO Work Phone: [facility] Start: 12-07-2024 Non-patient / Non-visit Dr. Montse Cabrera MD -[facility] Work Phone: Start: 12-06-2024 Non-patient / Non-visit Dr. Sandro Jackman MD -[facility] Work Phone: Start: 12-06-2024 End: 12-11-[address] Donovan Cano DO [facility] Start: 12-06-2024 End: 12-11-2024 Evaluation and management of inpatient Dr. Sandro Jackman MD -[facility] Unit Work Phone: Start: 12-06-2024 ambulatory Argelia Darby Facility :[facility] Start: 12-04-2024 End: 12-04-[address] Kristy Andrew MD -[facility] Work Phone: Start: 12-04-2024 End: 12-04-2024 ambulatory Argelia Darby Facility:[facility] Start: 11-07-2024 ambulatory ARGELIA DARBY DO Facil ity:[facility] Start: 10-29-2024 End: 10-29-2024 ambulatory ARGELIA DARBY DO Facility:[facility] Start: 10-29-2024 End: 10-29-2024 Patient encounter procedure ARGELIA DARBY DO [facility] Start: 09-06-2024 ambulatory Argelia Darby Facility :[facility] Start: 09-06-2024 Non-patient / Non-visit Dr. Kristy jett MD -[facility] Work Phone: Start: 09-06-2024 ambulatory Argelia Wilner Facility :[facility] Start: 09-06-[address] Kristy Andrew MD -Cardiovascular Services Work Phone: Start: 08-28-2024 End: 08-28-[address] Kristy Andrew MD -[facility] Work Phone: Start: 08-28-2024 End: 08-28-2024 ambulatory Argelia Wilner Facility:[facility] Start: 08-25-2024 End: 08-25-2024 ambulatory ARGELIA WILNER DO Facility:[facility] Start: 08-25-2024 End: 08-25-2024 Patient encounter procedure ARGELIA WILNER DO [facility] Start: 07-31-2024 End: 07-31-2024 ambulatory ARGELIA WILNER DO Facility[facility] Start: 07-31-2024 End: 07-31-2024 Patient encounter procedure ARGELIA WILNER DO [facility] Start: 06-26-2024 ambulatory Argelia Wilner Facility :[facility] Start: 06-25-2024 ambulatory Argelia Wilner Facility :[facility] Start: 06-23-2024 ambulatory Argelia Wilner Facility :[facility] Start: 06-23-2024 ambulatory Argelia Wilner Facility :[facility] Start: 06-23-2024 End: 06-23-2024 ambulatory Argelia Wilner Facility:[facility] Start: 06-10-2024 End: 06-10-2024 ambulatory Argelia Wilner Facility:[facility] Start: 06-10-2024 End: 06-10-2024 ambulatory Argelia Wilner Facility:[facility] Start: 05-23-2024 End: 05-23-2024 ambulatory ARGELIA WILNER DO Facility:[facility] Start: 05-23-2024 End: 05-23-2024 Patient encounter procedure JESUS WOODARD [employer] [facility] Start: 05-15-2024 End: 05-15-2024 ambulatory ARGELIA EASONY DO Facility:[facility] Start: 05-15-2024 End: 05-15-2024 Patient encounter procedure ARGELIA WILSONLAY DO [facility] Start: 04-15-2024 End: 04-15-2024 ambulatory ARGELIA EASONY DO Facility:[facility] Start: 04-15-2024 End: 04-15-2024 Patient encounter procedure ARGELIA EASONY DO [facility] Start: 03-20-2024 End: 03-20-2024 ambulatory Argelia Darby Facility:[facility] Start: 03-11-2024 End: 03-11-2024 ambulatory Argelia Darby Facility:[facility] Start: 03-03-2024 End: 03-03-2024 ambulatory ARGELIA EASONY DO Facility:[facility] Start: 03-03-2024 End: 03-03-2024 Patient encounter procedure ARGELIA WILSONLAY DO [facility] Start: 01-30-2024 End: 01-30-2024 ambulatory ARGELIA EASONY DO Facility:[facility] Start: 12-11-2023 End: 12-11-2023 ambulatory ARGELIA EASONY DO Facility:[facility] Start: 12-11-2023 End: 12-11-2023 Patient encounter procedure ARGELIA EASONY DO [facility] Start: 12-04-2023 End: 12-08-2023 ambulatory ARGELIAHAILE EASONY DO Facility:[facility] Start: 12-04-2023 End: 12-08-2023 Outreach Lab ARGELIA WILSONLAY DO [facility] Start: 12-04-2023 End: 12-08-2023 ambulatory ARGELIAHAILE WILSONLAY DO Facility:[facility] Start: 12-04-2023 End: 12-08-2023 Outreach Lab ARGELIA DARBY DO [facility] Start: 10-10-2023 End: 10-10-2023 ambulatory ARGELIA DARBY DO Facility:[facility] Start: 10-10-2023 End: 10-10-[address] CATIE SNOWDEN MD [facility] Start: 09-26-2023 Non-patient / Non-visit Dr. Deidra Pate Work Phone: [facility] Work Phone: Start: 09-26-2023 Non-patient / Non-visit Dr. Deidra aPte Work Phone: [facility] Start: 09-26-2023 End: 09-26-[address] Madhavi Pate Work Phone: [facility] Work Phone: Start: 09-26-2023 End: 09-26-[address] [facility] Work Phone: Start: 09-19-2023 End: 10-09-2023 ambulatory ARGELIA DARBY DO Facility:[facility] Start: 09-19-2023 End: 10-09-2023 Physical therapy management ARGELIA DARBY DO [facility] Start: 09-13-2023 End: 09-13-2023 ambulatory ARGELIA WILSONLAY Facility:[facility] Start: 09-11-2023 End: 09-11-2023 ambulatory ARGELIA WILSONLAElly ESTEVEZ Facility:[facility] Start: 09-04-2023 End: 09-04-[address] Madhavi Pate Work Phone: [facility] Work Phone: Start: 09-02-2023 End: 09-02-2023 Emergency department patient visit YAZMIN ANDERS DO [facility] Start: 08-30-2023 End: 08-30-2023 ambulatory ARGELIA DARBY DO Facility:[facility] Start: 08-30-2023 End: 08-30-2023 Patient encounter procedure ARGELIA DARBY DO [facility] Start: 08-21-2023 End: 08-21-2023 ambulatory ARGELIA DARBY DO Facility:[facility] Start: 07-31-2023 End: 08-14-2023 Evaluation and management of inpatient Dr. Madhavi Pate Work Phone: [facility]-Transitional [facility] Unit Start: 07-31-2023 Non-patient / Non-visit Dr. Deidra Pate Work Phone: [facility] Work Phone: Start: 07-30-2023 Non-patient / Non-visit Dr. Deidra Pate Work Phone: [facility] Work Phone: Start: 07-29-2023 Non-patient / Non-visit Dr. Deidra Pate Work Phone: [facility] Work Phone: Start: 07-28-2023 End: 07-31-2023 Evaluation and management of inpatient Dr. Madhavi Pate Work Phone: [facility]-Medical Surgical 3 Work Phone: Start: 07-28-2023 Non-patient / Non-visit Dr. Deidra Pate Work Phone: [facility] Work Phone: Start: 07-27-2023 End: 07-27-2023 Emergency department patient visit RASHEL SPANGLER DO [facility] Start: 07-26-2023 End: 07-26-2023 Emergency department patient visit ARGELIA DARBY DO Facility:[facility] Start: 07-24-2023 End: 07-28-2023 ambulatory ARGELIA DARBY DO Facility:[facility] Start: 07-24-2023 End: 07-28-2023 Outreach Lab ARGELIA DARBY DO [facility] Start: 07-16-2023 End: 07-16-2023 ambulatory ARGELIA DARBY DO Facility:[facility] Start: 07-16-2023 End: 07-16-2023 Patient encounter procedure ARGELIA Pastrana WILNER DO [facility] Start: 07-03-2023 End: 07-03-2023 ambulatory ARGELIA WILSONLAElly ESTEVEZ Facility:[facility] Start: 03-21-2023 End: 03-21-2023 Patient encounter procedure ARGELIA DARBY DO [facility] Start: 12-26-2022 End: 12-30-2022 Outreach Lab ARGELIA DARBY DO [facility] Start: 12-26-2022 End: 12-26-2022 Patient encounter procedure ARGELIA Pastrana WILNER DO [facility] Start: 08-23-2022 End: 08-23-2022 Patient encounter procedure ARGELIA DARBY DO [facility] Start: 04-19-2022 End: 04-19-2022 Patient encounter procedure ARGELIA Pastrana WILNER DO [facility] Start: 04-05-2022 End: 04-05-2022 Patient encounter procedure ARGELIA Pastrana WILNER [facility] Start: 12-09-2021 End: 01-25-2022 Physical therapy management ARGELIA Pastrana WILNER [facility] Start: 12-07-2021 End: 12-07-2021 Patient encounter procedure ARGELIA Pastrana WILNER DO [facility] Start: 10-20-2021 End: 10-20-2021 Patient encounter procedure ARGELIA Pastrana WILNER [facility] Start: 10-13-2021 End: 10-13-2021 Patient encounter procedure ARGELIA Pastrana WILNER [facility] Start: 10-06-2021 End: 10-06-2021 Patient encounter procedure ARGELIA DARBY DO [facility] Start: 08-01-2021 End: 08-01-2021 Patient encounter procedure SHAYNE GONZALEZ [employer] [facility] Start: 07-06-2021 End: 07-06-2021 Patient encounter procedure SHAYNE GONZALEZ [employer] T[employer]ER-[employer] [facility] Procedures Date Procedure Procedure Detail [...] eye Start: 09-09-2020 Cardiac catheterization SHAYNERAMU GONZALEZ [employer] TENDER-[employer] Start: 08-22-2010 Thyroidectomy SHAYNE Villagomez FIDELIA [employer] Comment on above: Bilateral follicular thyroid nodule, cystic colloid nodule Start: 09-24-1994 Dilation and curetta ge of uterus SHAYNERAMU GONZALEZ [employer] T[employer]ER-[employer] Comment on above: cone biopsy Start: 09-24-1982 Ligation of fallopian tube SHAYNE GONZALEZ [employer]ING [employer] TENDER-[employer] Start: 09-24-1958 Tonsillectomy SHAYNE Villagomez FIDELIA [employer] TENDER-[employer] Colonoscopy SHAYNE GONZALEZ AP RN-[employer] Endometrial biopsy SHAYNE Villagomez FIDELIA [employer] T[employer]ER-[employer] Comment on above: 1992 & 1988 Tympanotomy SHAYNE SHEPARD RN-[employer] Comment on above: right ear Plan of Treatment Date Care Activity Detail Author Start: 12-06-2034 DTaP/Tdap/Td Vaccines (3 - Td or Tdap) DTaP/Tdap/Td Vaccines (3 - Td or Tdap) [facility] Start: 05-25-2025 Influenza vaccination Influenza Vaccine (Season Ended) [facility] Start: 03-02-2025 End: 03-02-2025 Patient encounter procedure 03/02/2025 9:20 AM EDT Procedure Visit [facility] Urology - [address] [place] [id number] Artur Georges MD [address] [place] [phone] [facility] Start: 01-22-2025 End: 01-22-2025 Patient encounter procedure 01/22/2025 10:00 AM EDT Office Visit [facility] [address] [place] [id number] Rosita Resendiz, DORIS - [employer] [address] [place] [address] [facility] Start: 12-11-2024 Patient discharge [facility] Start: 12-10-2024 Fluid restriction [facility] Start: 12-09-2024 Referral to vice president of talent acquisition [facility] Start: 12-07-2024 [facility] Start: 12-06-2024 Referral to casino host [facility] Start: 12-06-2024 [facility] Start: 12-06-2024 Care planning and problem solving actions [facility] Start: 12-06-2024 Following clinical pathway protocol [facility] Start: 12-06-2024 Assessment of risk of venous thromboembolism [facility] Start: 12-06-2024 Consultation [facility] Start: 12-06-2024 Insertion of catheter into peripheral vein [facility] Start: 12-06-2024 Patient referral to dietitian [facility] Start: 12-06-2024 Providing care according to standard [facility] Start: 12-06-2024 Provision of activity privileges [facility] Start: 12-06-2024 Referral to occupational therapist [facility] Start: 12-06-2024 Referral to service [facility] Start: 12-06-2024 [facility] Start: 12-06-2024 Verification routine [facility] Start: 12-06-2024 Admission procedure [facility] Start: 12-06-2024 End: 12-06-2024 [facility] Start: 12-06-2024 Hospital admission, emergency, from emergency room, medical nature [facility] Start: 12-06-2024 End: 12-07-2024 [facility] Start: 05-25-2024 COVID-19 Vaccine ( season) COVID-19 Vaccine () [facility] Start: 05-25-2024 COVID-19 Vaccine () COVID-19 Vaccine () [facility] Start: 09-12-2023 Blood chemistry [facility] Start: 09-05-2023 Blood chemistry [facility] Start: 08-29-2023 Blood chemistry [facility] Start: 08-22-2023 Blood chemistry [facility] Start: 08-15-2023 Blood chemistry [facility] Start: 08-14-2023 Patient discharge [facility] Start: 08-13-2023 Development of care plan [facility] Start: 08-08-2023 Oxygen therapy [facility] Start: 08-06-2023 Blood chemistry [facility] Start: 08-05-2023 Blood chemistry [facility] Start: 08-04-2023 Blood chemistry [facility] Start: 08-03-2023 Blood chemistry [facility] Start: 08-02-2023 Blood chemistry [facility] Start: 08-01-2023 Development of care plan [facility] Start: 08-01-2023 Developing a treatment plan [facility] Start: 08-01-2023 Blood chemistry [facility] Start: 07-31-2023 Following clinical pathway protocol [facility] Start: 07-31-2023 Admission procedure [facility] Start: 07-31-2023 Measuring intake and output [facility] Start: 07-31-2023 Patient referral to dietitian [facility] Start: 07-31-2023 Referral to occupational therapist [facility] Start: 07-31-2023 Referral to service [facility] Start: 07-31-2023 Vital signs measurements [facility] Start: 07-31-2023 [facility] Start: 07-31-2023 Patient discharge [facility] Start: 07-29-2023 Inhalation therapy procedure [facility] Start: 07-28-2023 [facility] Start: 07-28-2023 Admission procedure [facility] Start: 07-28-2023 Referral to vice president of talent acquisition [facility] Start: 07-28-2023 Following clinical pathway protocol [facility] Start: 07-28-2023 Admission procedure [facility] Start: 07-28-2023 Assessment of risk of venous thromboembolism [facility] Start: 07-28-2023 Insertion of catheter into peripheral vein [facility] Start: 07-28-2023 Providing care according to standard [facility] Start: 07-28-2023 Provision of activity privileges [facility] Start: 07-28-2023 Fall prevention [facility] Start: 07-28-2023 End: 07-28-2023 [facility] Start: 07-28-2023 Introduction of urinary catheter [facility] Start: 07-28-2023 Oxygen therapy [facility] Start: 07-28-2023 Referral to occupational therapist [facility] Start: 07-28-2023 Referral to service [facility] Start: 07-28-2023 Measuring intake and output [facility] Start: 2018 RSV Immunization for Adults (1 - 1-dose 75+ series) RSV Immunization for Adults (1 - 1-dose 75+ series) [facility] Start: 06-08-2009 Zoster Vaccines (2 of 3) Zoster Vaccines (2 of 3) [facility] Start: 1993 Pneumococcal Vaccine: 50+ Years (1 of 1 - PCV) Pneumococcal Vaccine: 50+ Years (1 of 1 - PCV) [facility] Start: 1993 Zoster Vaccines (1 of 2) Zoster Vaccines (1 of 2) [facility] Start: 1962 DTaP/Tdap/Td Vaccines (1 - Tdap) DTaP/Tdap/Td Vaccines (1 - Tdap) [facility] Start: 1955 Depression Monitoring Depression Monitoring [facility] Start: 1955 Depression Screening Depression Screening [facility] Start: 1943 Lipid panel Lipid Panel [facility] Start: 1943 Medicare Annual Wellness (AWV) Medicare Annual Wellness (AWV) [facility] Start: 1943 Screening for osteoporosis Bone Density Scan [facility] Start: 1943 Thyroid stimulating hormone measurement TSH Level [facility] CT angiography of co ronary arteries [facility] CTA Heart and [place] ry arteries W contrast IV [facility] Patient Education [facility] Work Phone: Patient referral [facility] Work Phone: Troponin T.cardiac [Mass/volume] in Serum or Plasma by High sensitivity method [facility] Troponin T.cardiac [Mass/volume] in Serum or Plasma by High sensitivity method [facility] Troponin T.cardiac [Mass/volume] in Serum or Plasma by High sensitivity method [facility] Immunizations Immunization Date Immunization Notes Care Provider Fa cili 12-06-2024 tetanus toxoid, redu christopher diphtheria toxoid, and acellular pertussis vaccine, adsorbed Dr. Argelia Darby DO Work Phone: [facility] 07-11-2022 pneumococcal polysaccharide vaccine, 23 valent; Translations: [Pneumovax 23] ARGELIA DARBY DO [facility] 05-17-2021 SARS-CoV-2 (COVID-19 ) mRNA-1273 vaccine ARGELIA DARBY DO [facility] 04-16-2021 SARS-CoV-2 (COVID-19 ) mRNA-1273 vaccine ARGELIA DARBY DO [facility] 06-05-2019 influenza virus vacc ine, unspecified formulation SHAYNE FISH [employer]ING [employer] [facility] 06-05-2019 Seasonal trivalent influenza vaccine, adjuvanted, preservative free Dr. Madhavi Pate Work Phone: [facility] 05-29-2018 influenza virus vacc ine, unspecified formulation SHAYNE FISH [employer]ING [employer] [facility] 05-29-2018 Seasonal trivalent influenza vaccine, adjuvanted, preservative free Dr. Madhavi Pate Work Phone: [facility] 06-07-2017 influenza virus vacc ine, unspecified formulation SHAYNE FISH [employer] [facility] 06-07-2017 Seasonal trivalent influenza vaccine, adjuvanted, preservative free Dr. Madhavi Pate Work Phone: [facility] 05-01-2017 pneumococcal conjuga te vaccine, 13 valent SHAYNE FISH [employer]ING [employer] [facility] 06-21-2016 influenza virus vacc ine, unspecified formulation SHAYNE FISH [employer]ING [employer]ER[employer] [facility] 06-21-2016 Influenza, high dose seasonal Dr. Argelia Darby DO Work Phone: [facility] 06-21-2016 influenza, high dose seasonal, preservative-free Dr. Madhavi Pate Work Phone: [facility] 05-25-2016 influenza virus vacc ine, unspecified formulation SHAYNE FISH [employer] [facility] 05-25-2016 influenza, injectabl e, quadrivalent, preservative free Dr. Madhavi Pate Work Phone: [facility] 05-17-2015 influenza virus vacc ine, unspecified formulation SHAYNE FISH [employer] [facility] 05-17-2015 Influenza, high dose seasonal Dr. Argelia Darby DO Work Phone: [facility] 05-17-2015 influenza, high dose seasonal, preservative-free Dr. Madhavi Pate Work Phone: [facility] 07-16-2014 influenza virus vacc ine, unspecified formulation SHAYNE FISH [employer] [facility] 07-16-2014 Seasonal, quadrivale nt, recombinant, injectable influenza vaccine, preservative free Dr. Madhavi Pate Work Phone: [facility] 01-12-2011 tetanus toxoid, redu christopher diphtheria toxoid, and acellular pertussis vaccine, adsorbed SHAYNE FISH [employer] [facility] 04-13-2009 zoster vaccine, live SHAYNE GONZALEZ [employer]ING [employer] [facility] Payers Date Payer Category Payer Self-pay [id number] 2021 Unknown [id number] 2016 [facility] Care - [facility] [id number] 2009 Unknown [id number] 2008 Medicare [id number] 2008 Medicare [id number] 1943 Unknown [id number] 2.16.840.1.167181.3.579. 2.627 1943 Unknown [id number] 2.16.840.1.095227.3.579. 2.62 1943 Unknown [id number] 2.16.840.1.549041.3.579. 2.627 1943 Unknown [id number] 2.16.840.1.199632.3.579. 2. 1943 Unknown [id number] 2.16.840.1.019312.3.579. 2. 1943 Unknown [id number] 2.16.840.1.595430.3.579. 2. 1943 Unknown [id number] 2.16.840.1.091838.3.579. 2.62 1943 Unknown [id number] 2.16.840.1.120365.3.579. 2. 1943 Unknown [id number] 2.16.840.1.690190.3.579. 2.62 1943 Unknown [id number] 2.16.840.1.006138.3.579. 2. 1943 Unknown [id number] 2.16.840.1.567615.3.579. 2.627 1943 Unknown [id number] 2.16.840.1.898207.3.579. 2.62 1943 Unknown [id number] 2.16.840.1.218053.3.579. 2.627 1943 Unknown [id number] 2.16.840.1.770216.3.579. 2.627 1943 Unknown [id number] 2.16.840.1.646848.3.579. 2.627 1943 Unknown [id number] 2.16.840.1.885681.3.579. 2. 1943 Unknown [id number] 2.16.840.1.615521.3.579. 2.62 1943 Unknown [id number] 2.16.840.1.448824.3.579. 2. 1943 Unknown [id number] 2.16.840.1.252703.3.579. 2. 1943 Unknown [id number] 2.16.840.1.157467.3.579. 2. 1943 Unknown [id number] 2.16840.1.040865.3.579. 2. 1943 Unknown [id number] 2.16840.1.242030.3.579. 2. 1943 Unknown [id number] 2.16840.1.130978.3.579. 2. 1943 Unknown [id number] 2.16840.1.619210.3.579. 2. 1943 Unknown [id number] 2.16840.1.118482.3.579. 2. 1943 Unknown [id number] 2.16.840.1.859753.3.579. 2.627 Unknown [id number] 2.16.840.1.021974.3.579. 2.462 Unknown [id number] 2.16.840.1.252241.3.579. 2.462 Unknown [id number] 2.16.840.1.730614.3.579. 2.462 Unknown [id number] 2.16.840.1.234968.3.579. 2.462 Unknown [id number] 2.16.840.1.612095.3.579. 2.462 Unknown [id number] 2.16.840.1.974006.3.579. 2.462 Unknown [id number] 2.16.840.1.512917.3.579. 2.462 Unknown [id number] 2.16.840.1.443998.3.579. 2.462 Unknown [id number] 2.16.840.1.243922.3.579. 2.462 Unknown [id number] 2.16.840.1.497398.3.579. 2.462 Unknown [id number] 2.16.840.1.957941.3.579. 2.462 Unknown [id number] 2.16.840.1.515627.3.579. 2.462 Unknown [id number] 2.840.1.872337.3.579. 2.462 Unknown [id number] 2.16.840.1.613267.3.579. 2.462 Unknown [id number] 2.16840.1.573202.3.579. 2.462 Unknown [id number] 2.16.840.1.715497.3.579. 2.462 Unknown [id number] 2.16.840.1.473844.3.579. 2.462 Unknown [id number] 2.16.840.1.799621.3.579. 2.462 Unknown [id number] 2.16.840.1.087991.3.579. 2.462 Unknown [id number] 2.16.840.1.111375.3.579. 2.462 Unknown [id number] 2.16.840.1.782923.3.579. 2.462 Unknown [id number] 2.16.840.1.135884.3.579. 2.462 Unknown [id number] 2.16.840.1.712717.3.579. 2.462 Unknown [id number] 2.16.840.1.020681.3.579. 2.462 Unknown [id number] 2.16.840.1.955881.3.579. 2.462 Unknown [id number] 2.16.840.1.304074.3.579. 2.462 Unknown [id number] 2.16.840.1.263001.3.579. 2.462 Unknown [id number] 2.16.840.1.503562.3.579. 2.462 Unknown [id number] 2.16.840.1.781589.3.579. 2.462 Unknown [id number] 2.16.840.1.797663.3.579. 2.462 Social History Date Type Detail Facility Start: 06-30-2021 End: 12-06-2024 Never smoked tobacco (finding) [facility] Start: 1945 Sex Assigned At Female A [facility] Start: 07-28-2023 End: 09-04-2023 Tobacco smoking status NHIS Unknown if ever smoked [facility] Sexual Orientation [facility] Start: 03-19-2019 End: 01-19-2025 Sex Female (finding) [facility] Start: 1945 Sex assigned at Not on file [facility] Gender identity [facility] Goals Date Patient Goal Desired Activity /State Functional Status Date Assessment Result Facility 12-11-2024 Functional status Ambulates [facility] Work Phone: 09-02-2023 Functional Status [facility] 08-14-2023 Functional status Up ad laura [facility] Work Phone: 07-31-2023 Functional status Ambulates [facility] Work Phone: 07-27-2023 Functional Status Standard Safet y ID band on, Call device within reach, Bed in low position, Wheels locked, Upper/Half-Length side-rails up, Bedside Cart Locked, Safety level maintained [facility] 12-09-2021 Functional Status Farnaz Prem elliott [facility] Mental Status Date Assessment Result Facility 12-11-2024 Cognitive function Voice/Name [facility] Work Phone: 09-02-2023 Mental Status Orientation Oriented x 4 [facility] 09-02-2023 Mental Status [facility] 08-14-2023 Cognitive function Voice/Name [facility] Work Phone: 08-08-2023 [facility] Work Phone: 07-31-2023 Cognitive function Voice/Name [facility] Work Phone: 07-27-2023 Mental Status Orientation Oriented x 4 [facility] Clinical Notes 08-23-2022 to 03-02-2025 Artur Georges [...] history on file. documented in this encounter [facility] 03-02-2025 Note Cystoscopy Procedure Note Pre-operative Diagnosis: [...] well Plan: See E&M Artur Georges M.D. [facility] 01-27-2025 Telephone encount er Note Pt scheduled for cysto with Dr. Georges on 03/02 at 9:20am. This is the earliest facility can bring the patient in for appt as Pt under [facility] . Ayala aware someone has to come in with patient if transfer/ambulation help needed. [facility] 01-27-2025 Miscellaneous Notes Formattin g of this note might be different from the original. Pt scheduled for cysto with Dr. Georges on 03/02 at 9:20am. This is the earliest facility can bring the patient in for appt as Pt under [facility] . Ayala aware someone has to come [...] next couple of weeks. Ayala with [facility] left a VM in regards to [...] performed and recommended. documented in this encounter [facility] 01-26-2025 Telephone encount er Note Message released to patient as written. Patient's further questions if applicable: message was released to Ayala and she would like to schedule cystoscopy Were all questions from office addressed or relayed to the patient from encounter: Yes [facility] 01-26-2025 Miscellaneous Notes Formattin g of this [...] the next couple of weeks. [facility] with [facility] left a VM in regards to [...] performed and recommended. documented in this encounter [facility] 01-23-2025 Telephone encount er Note Keep richter and needs follow up for cystoscopy in the next couple of weeks. [facility] [employer] Work Phone: 01-23-2025 Telephone encount er Note [facility] in regards to the [...] this is something still performed and recommended. [facility] 01-22-2025 History of Presen t illness Narrative . Urology Office Visit [facility] [address], [address] [facility] [address] Visit type: New Patient Reason for Visit: [...] for follow up after hospital admission at [facility] after falling and injuring her left knee. [...] 100 cc immediately documented in this encounter [facility] 01-19-2025 Telephone encount er Note Returned the call to [facility]. Spoke with nurse Gorman. Will send fax documents of pt history and discharge information from [facility]. Scheduled new patient appt 01/22/25 10:00 AM w/Rosita for *hosp follow up [facility]/urinary retention/richter removal/voiding trial* Per [facility] the patient failed one VT while in hospital unclear of date possibly 01/13/25. [facility] 01-19-2025 Miscellaneous Notes Formattin g of this note might be different from the original. Returned the call to [facility]. Spoke with nurse Gorman. Will send fax documents of pt history and discharge information from [facility]. Scheduled new patient appt 01/22/25 10:00 AM w/Rosita for *hosp follow up [facility]/urinary retention/richter removal/voiding trial* Per [facility] the patient failed one VT while in hospital unclear of date possibly 01/13/25. Name of Caller: Obi Contact Reason for Appointment: Obi called in to get patient established for urinary retention and not being able to remove richter. Please be advised Office Name: [facility] Urology documented in this encounter [facility] 01-19-2025 Telephone encount er Note Name of Caller: Obi Contact Reason for Appointment: Obi called in to get patient established for urinary retention and not being able to remove richter. Please be advised Office Name: [facility] Urology [facility] 01-12-2025 Note [facility] 12-11-2024 Note [facility] 12-11-2024 Discharge summary Note Date/Time December 11, 2024 11:52am [facility] Medical Records Department [address] [place] [address] Discharge Summary 12/11/24 0948 MR#: [id number] Acct: [id number] Name: JERO LEWIS Rep #:[id number] : 1945 79 From: Donovan buchanan DO PCP: Dr. Argelia Darby DO Status:ADM IN Location: [facility] [id number]- 1 Providers Date of Admission: 12/06/24 Date [...] weeks. calcium 600 mg-D3 800 unit-mag 40 wk-fpuz-qnpy-joseph-boron chew tablet (Caltrate 600-D Plus Minerals) 1 [...] Patient is an 79-year-old female who presented [facility] ED on 12/06/2024 with left knee [...] history of recurrent syncope and follows with [facility] in the office. Notably had recent [...] 79.8 H, Lymph % (Auto) 9.1 L, [place] % (Auto) 8.5, Eos % (Auto) 1.5, [...] as she is being put on PO [id number] bid x 2 weeks for DVT prophylaxis. [...] in before D/C Order can be placed): [facility] Charges/Coding Visit Charges Inpatient E&M: 44059 Disch Hosp >30min 12/11/24 1104 <Electronically signed [...] DO; Dr. Argelia Darby DO ~* Signed [facility] Work Phone: 1(260) 726-963003-20-2025 Consult note Author Marisa Najera [facility] Note Date/Time December 11, 2024 11: 44am [facility] Medical Records Department [address] [place] [address] Counseling Note - Pharmacy 12/11/24 1144 MR#: [id number] Acct: [id number] Name: JERO LEWIS Rep #:[id number] : 1945 79 From: Marisa Najera PCP: Dr. Argelia Darby, DO Status:ADM IN Y Location: [place] [address] Med Reconciliation Pharmacy Service has performed discharge [...] weeks. calcium 600 mg-D3 800 unit-mag 40 ie-rgky-dddf-josehp-boron chew tablet (Caltrate 600-D Plus Minerals) 1 [...] Signature (if applicable): Date CC: ~ Signed [facility] Work Phone: 1(961) 576-236303-20-2025 Dis[facility] Date/Time December 11, 2024 11: 02am [facility] Medical Records Department [address] [place] [address] Transfer to [facility] MR#: [id number] Acct: [id number] Name: JERO LEIWS Rep #:[id number] : 1945 79 From: Donovan buchanan DO PCP: Dr. Argelia Darby, Status:ADM IN Certification of patient admission REQUIRED AT TIME OF ADMISSION. I CERTIFY THAT [facility] SERVICES ARE REQUIRED TO BE GIVEN ON AN IN-PATIENT BASIS BECAUSE OF THE ABOVE NAMED PATIENT'S NEED FOR CORRECTION CARE ON A CONTINUING BASIS FOR THE CONDITION(S) FOR WHICH HE/SHE WAS RECEIVING IN-PATIENT HOSPITAL SERVICES PRIOR TO HIS/HER TRANSFER TO [facility]. 12/11/24 1102<Electronically signed by Donovan aCno DO> Diet Diet Order/Speech Therapy: 12/06/24 20:03 [...] Patient is an 79-year-old female who presented [facility] ED on 12/06/2024 with left knee [...] history of recurrent syncope and follows with [facility] in the office. Notably had recent [...] as she is being put on PO [id number] bid x 2 weeks for DVT prophylaxis. [...] in before D/C Order can be placed): [facility] Living Facility (2) Syncope Qualifiers: Syncope type: unspecified Qualified Code(s): R55 - Syncope and collapse 12/11/24 1102 <Electronically signed by Donovan Cano DO> Cosigner Signature (if applicable): CC: [facility] - ATTN: DANIELLE COKER; Dr. Sandro Jackman MD; Dr. De Snowden MD; Dr. Argelia Darby DO; Dr. Michelle Dang MD; Dr. Montse Cabrera MD~ [facility] Work Phone: 1(148) 130-610703-20-2025 Discharge summary [facility] Medical Records Department [address] [place] [address] Discharge Summary 12/11/24 0948 MR#: [id number] Acct: [id number] Name: JERO LEWIS Rep #:[id number] : 1945 79 From: Donovan buchanan DO PCP: Dr. Argelia Darby DO Status:ADM IN [facility] Prov[facility] Date of Admission: 12/06/24 Date [...] weeks. calcium 600 mg-D3 800 unit-mag 40 ei-eenl-srxm-joseph-boron chew tablet (Caltrate 600-D Plus Minerals) 1 [...] Patient is an 79-year-old female who presented [facility] ED on 12/06/2024 with leftknee pain [...] history of recurrent syncope and follows with [facility] in the office. Notably had recent [...] 79.8 H, Lymph % (Auto) 9.1 L, [place] % (Auto) 8.5, Eos % (Auto) 1.5, [...] as she is being put on PO [id number] bid x 2 weeks forDVT prophylaxis. To [...] in before D/C Order can be placed): [facility] Living Facility Charges/Coding Visit Charges Inpatient E&M: 59247 Disch Hosp >30min 12/11/24 1104 Cosigner Signature [...] DO; Dr. Argelia Darby DO ~* Signed [facility]03-20-2025 Consult note [facility] Medical Records Department [address] [place] [address] Counseling Note - Pharmacy 12/11/24 1144 MR#: [id number] Acct: [id number] Name: JERO LEWIS Rep #:[id number] : 1945 79 From: Marisa Najera PCP: Dr. Argelia Darby DO Status:ADM IN Y Location: [place] [address] Med Reconciliation Pharmacy Service has performed discharge [...] weeks. calcium 600 mg-D3 800 unit-mag 40 xq-krle-thzl-joseph-boron chew tablet (Caltrate 600-D Plus Minerals) 1 [...] Signature (if applicable): Date CC: ~ Signed [facility]03-20-2025 Discharge summary [facility] Medical Records Department [address] [place] [address] Transfer to [facility] MR#: [id number] Acct: [id number] Name: JERO LEWIS Rep #:[id number] : 1945 79 From: Donovan buchanan DO PCP: Dr. Argelia Darby DO Status:ADM IN Certification of patient admission REQUIRED AT TIME OF ADMISSION. I CERTIFY THAT POST-HOSPITAL ECF SERVICES ARE REQUIRED TO BE GIVEN ON AN IN-PATIENT BASIS BECAUSE OF THE ABOVE NAMED PATIENT'S NEED FOR CORRECTION CARE ON A CONTINUING BASIS FOR THE CONDITION(S) FOR WHICH HE/SHE WAS RECEIVING IN-PATIENT HOSPITAL SERVICES PRIOR TO HIS/HER TRANSFER TO THE [facility]. 12/11/24 1102 Diet Diet Order/Speech Therapy: 12/06/24 [...] Patient is an 79-year-old female who presented [facility] ED on 12/06/2024 with leftknee pain [...] history of recurrent syncope and follows with [facility] in the office. Notably had recent [...] as she is being put on PO [id number] bid x 2 weeks forDVT prophylaxis. To [...] in before D/C Order can be placed): Senior Living Facility (2) Syncope Qualifiers: Syncope type: unspecified Qualified Code(s): R55 - Syncope and collapse 12/11/24 1102 Cosigner Signature (if applicable): CC: [facility] - ATTN: DANIELLE COKER; Dr. Sandro Jackman MD; Dr. De Snowden MD; Dr. Argelia Darby DO; Dr. Michelle Dang MD; Dr. Montse Cabrera MD~ [facility]03[facility]20-[facility] Progress note Author Montse [facility] Note Date/Time December 10, 2024 4:3 7pm [facility] Medical Records Department [address] [place] [address] Progress Note 12/10/24 1627 MR#: [id number] Acct: [id number] Name: JERO LEWIS Rep #:[id number] : 1945 79 From: Montse Cabrera MD PCP: Dr. Argelia Darby DO Status:ADM IN Location: [place] [address] Subjective Subjective Patient seen and examined. She [...] 76.0 H, Lymph % (Auto) 12.7 L, [place] % (Auto) 8.1, Eos % (Auto) 2.5, [...] which showed nonsustained vtach * followed with [facility] on outpatient basis * cardiology consulted; [...] no intubation. Charges/Coding Visit Charges Inpatient E&M: 08060 Subs Hosp L2 12/10/24 1637 <Electronically signed by Montse Cabrera MD> Montse Cabrera MD Cosigner Signature (if applicable): CC: ~ Signed [facility] Work Phone: 1(597) 988-118903-19-2025 Progress note [facility] Medical Records Department [address] [place] [address] Progress Note 12/10/24 1627 MR#: [id number] Acct: [id number] Name: JERO LEWIS Rep #:[id number] : 1945 79 From: Montse Cabrera MD PCP: Dr. Argelia Darby, DO Status:ADM IN Location: [place] [address] Subjective Subjective Patient seen and examined. She [...] 76.0 H, Lymph % (Auto) 12.7 L, [place] % (Auto) 8.1, Eos % (Auto) 2.5, [...] which showed nonsustained vtach * followed with [facility] on outpatient basis * cardiology consulted; [...] no intubation. Charges/Coding Visit Charges Inpatient E&M: 05269 Subs Hosp L2 12/10/24 2087 Montse Cabrera MD Cosigner Signature (if applicable): CC: ~ Signed [facility]03-19-2025 Progress note Author Madhavi Pate [facility] Note Date/Time December 10, 2024 12: 42am [facility] Medical Records Department [address] [place] [address] Progress Note - Hospitalist 12/10/2440 MR#: [id number] Acct: [id number] Name: JERO LEWIS Rep #:[id number] : 1945 79 From: Madhavi Pate MD PCP: Dr. Argelia Darby, DO Status:ADM IN Location: [place] [address] Hospitalist Note Called with repeat labs with [...] Cosigner Signature (if applicable): CC: ~ Signed [facility] Work Phone: 1([phone]) 126-637703-19-2025 Progress note [facility] Medical Records Department [address] [place] [address] Progress Note - Hospitalist 12/10/24 004 MR#: [id number] Acct: [id number] Name: JERO LEWIS Rep #:[id number] : 1945 79 From: Madhavi Pate MD PCP: Dr. Argelia Darby, DO Status:ADM IN Location: [place] [address] Hospitalist Note Called with repeat labs with [...] Cosigner Signature (if applicable): CC: ~ Signed [facility]03-18-2025 Progress note Author Montse Cabrera [facility] Note Date/Time December 09, 2024 6:5 7pm [facility] Medical Records Department [address] [place] [address] Progress Note 12/09/24 1854 MR#: [id number] Acct: [id number] Name: JERO LEWIS Rep #:[id number] : 1945 79 From: Montse Cabrera MD PCP: Dr. Argelia Darby, DO Status:ADM IN Location: [place] [address] Subjective Subjective Patient seen and examined. She [...] which showed nonsustained vtach * followed [facility] on outpatient basis * cardiology consulted; [...] no intubation. Charges/Coding Visit Charges Inpatient E&M: 87998 Subs Hosp L2 12/09/24 1857 <Electronically signed by Montse Cabrera MD> Montse Cabrera MD Cosigner Signature (if applicable): CC: ~ Signed [facility] Work Phone: 1(505) 735-744203-18-2025 Progress note [facility] Medical Records Department [address] [place] [address] Progress Note 12/09/24 1854 MR#: [id number] Acct: [id number] Name: JERO LEWIS Rep #:[id number] : 1945 79 From: Montse Cabrera MD PCP: Dr. Argelia Darby, DO Status:ADM IN Location: [place] [address] Subjective Subjective Patient seen and examined. She [...] which showed nonsustained vtach * followed [facility] on outpatient basis * cardiology consulted; [...] no intubation. Charges/Coding Visit Charges Inpatient E&M: 43003 Subs Hosp L2 12/09/24 0767 Montse Cabrera MD Cosigner Signature (if applicable): CC: ~ Signed [facility]03-18-2025 Consult note Author Shawna Carranza [facility] Note Date/Time December 09, 2024 4:1 8pm [facility] Medical Records Department [address] [place] [address] Counseling Note - Pharmacy 12/09/24 1618 MR#: [id number] Acct: [id number] Name: JEOR LEWIS Rep #:[id number] : 1945 79 From: Shawna Carranza PCP: Dr. Argelia Darby, DO Status:ADM IN Y Location: [place] [id number] DC Med Reconciliation Pharmacy Service [...] weeks. calcium 600 mg-D3 800 unit-mag 40 yq-ibwl-bjpw-joseph-boron chew tablet (Caltrate 600-D Plus Minerals) 1 [...] Signature (if applicable): Date CC: ~ Signed [facility] Work Phone: 1(316) 212-177103-18-2025 Consult note [facility] Medical Records Department [address] [place] [address] Counseling Note - Pharmacy 12/09/24 1618 MR#: [id number] Acct: [id number] Name: JERO LEWIS Rep #:[id number] : 1945 79 From: Shawna Carranza PCP: Dr. Argelia Darby, DO Status:ADM IN Y Location: [place] [address] Med Reconciliation Pharmacy Service has performed discharge [...] weeks. calcium 600 mg-D3 800 unit-mag 40 zm-zvpg-hdlx-joseph-boron chew tablet (Caltrate 600-D Plus Minerals) 1 [...] Signature (if applicable): Date CC: ~ Signed [facility]03-18-2025 Discharge summary Author Montse [facility] Note Date/Time December 09, 2024 2:1 8pm [facility] Medical Records Department [address] [place] [address] Discharge Summary 12/09/24 1317 MR#: [id number] Acct: [id number] Name: JERO LEWIS Rep #:[id number] : 1945 79 From: Montse Cabrera MD PCP: Dr. Argelia Darby DO Status:ADM IN [facility] Prov[facility] Date of Admission: 12/06/24 Date [...] which showed nonsustained vtach * followed [facility] on outpatient basis * cardiology consulted; [...] weeks. calcium 600 mg-D3 800 unit-mag 40 oy-louw-gcdd-joseph-boron chew tablet (Caltrate 600-D Plus Minerals) 1 [...] needing skilled evaluation. [facility]. She is follow-up with [...] as she is being put on PO [id number] bid x 2 weeks for DVT prophylaxis. [...] in before D/C Order can be placed): Senior Living Facility Charges/Coding Visit Charges Inpatient E&M: 16105 Disch Hosp >30min 12/09/24 1418 <Electronically signed by Montse Cabrera MD> Cosigner Signature (if applicable): CC: Dr. Argelia Darby DO; Dr. Montse Cabrera MD~ Signed [facility] Work Phone: 1(879) 811-347203-18-2025 Discharge summary Author Montse [facility] Note Date/Time December 09, 2024 1:1 7pm [facility] Medical Records Department [address] [place] [address] Transfer to [facility] MR#: [id number] Acct: [id number] Name: JERO LEWIS Rep #:[id number] : 1945 79 From: Montse Cabrera MD PCP: Dr. Argelia Darby DO Status:ADM IN Certification of patient admission REQUIRED AT TIME OF ADMISSION. I CERTIFY THAT POST-HOSPITAL ECF SERVICES ARE REQUIRED TO BE GIVEN ON AN IN-PATIENT BASIS BECAUSE OF THE ABOVE NAMED PATIENT'S NEED FOR CORRECTION CARE ON A CONTINUING BASIS FOR THE [...] which showed nonsustained vtach * followed [facility] on outpatient basis * cardiology consulted; [...] in before D/C Order can be placed): Senior Living Facility Charges/Coding Visit Charges Inpatient E&M: 35826 Disch Hosp >30min (2) Syncope Qualifiers: Syncope type: unspecified Qualified Code(s): R55 - Syncope and collapse 12/09/24 1317 <Electronically signed by Montse Cabrera MD> Cosigner Signature (if applicable): CC: [facility] - ATTN: DANIELLE COKER; Dr. Sandro Jackman MD; Dr. Argelia Darby DO; Dr. Michelle Dang MD ~ [facility] Work Phone: 1(549) 640-465903-18-2025 Discharge summary [facility] Medical Records Department [address] [place] [address] Discharge Summary 12/09/24 1317 MR#: [id number] Acct: [id number] Name: JERO LEWIS Rep #:[id number] : 1945 79 From: Montse Cabrera MD PCP: Dr. Argelia Darby DO Status:ADM IN Location: [facility] [id number]- 1 Providers Date of Admission: 12/06/24 Date [...] which showed nonsustained vtach * followed [facility] on outpatient basis * cardiology consulted; [...] weeks. calcium 600 mg-D3 800 unit-mag 40 an-uues-tefc-joseph-boron chew tablet (Caltrate 600-D Plus Minerals) 1 [...] needing skilled evaluation. [facility]. She is follow-up with [...] Provider: Montse Cabrera Primary Care Provider: Argelia aDrby Consulting Providers: -Attn: [facility]; Sandro [...] as she is being put on PO [id number] bid x 2 weeks forDVT prophylaxis. To [...] in before D/C Order can be placed): Senior Living Facility Charges/Coding Visit Charges Inpatient E&M: 23863 Disch Hosp >30min 12/09/24 1418 Cosigner Signature (if applicable): CC: Dr. Areglia Darby DO; Dr. Montse Cabrera MD~ Signed [facility]03-18-2025 Discharge summary [facility] Medical Records Department [address] [place] [address] Transfer to [facility] MR#: [id number] Acct: [id number] Name: JERO LEWIS Rep #:[id number] : 1945 79 From: Montse Cabrera MD PCP: Dr. Argelia Darby DO Status:ADM IN Certification of patient admission REQUIRED AT TIME OF ADMISSION. I CERTIFY THAT POST-HOSPITAL ECF SERVICES ARE REQUIRED TO BE GIVEN ON AN IN-PATIENT BASIS BECAUSE OF THE ABOVE NAMED PATIENT'S NEED FOR CORRECTION CARE ON A CONTINUING BASIS FOR THE CONDITION(S) FOR WHICH HE/SHE WAS RECEIVING IN-PATIENT HOSPITAL SERVICES PRIOR TO HIS/HER TRANSFER TO THE [facility]. 12/09/24 1317 Diet Diet Order/Speech Therapy: 12/06/24 [...] which showed nonsustained vtach * followed [facility] on outpatient basis * cardiology consulted; [...] in before D/C Order can be placed): Senior Living Facility Charges/Coding Visit Charges Inpatient E&M: 82707 Disch Hosp >30min (2) Syncope Qualifiers: Syncope type: unspecified Qualified Code(s): R55 - Syncope and collapse 12/09/24 1317 Cosigner Signature (if applicable): CC: [facility] - ATTN: DANIELLE COKER; Dr. Sandro Jackman MD; Dr. Argelia Darby DO; Dr. Michelle Dang MD ~ [facility]03-18-2025 [facility]03-17-2025 Progress note Author [facility] Note Date/Time December 08, 2024 4:1 [facility] Medical Records Department [address] [place] [address] Progress Note 12/08/24 1149 MR#: [id number] Acct: [id number] Name: JERO LEWIS Rep #:[id number] : 1945 79 From: Montse Cabrera MD PCP: Dr. Argelia Darby, Status:ADM IN Location: [place] [address] Subjective Subjective Patient seen and examined. Pain [...] 79.7 H, Lymph % (Auto) 11.2 L, [place] % (Auto) 7.2, Eos % (Auto) 1.4, [...] which showed nonsustained vtach * followed [facility] on outpatient basis * cardiology consulted; [...] no intubation. Charges/Coding Visit Charges Inpatient E&M: 79334 Subs Hosp L2 12/08/24 1611 <Electronically signed by Montse Cabrera MD> Montse Cabrera MD Cosigner Signature (if applicable): CC: ~ Signed [facility] Work Phone: 1(777) 528-365903-17-2025 Progress note [facility] Medical Records Department [address] [place] [address] Progress Note 12/08/24 1149 MR#: [id number] Acct: [id number] Name: JERO LEWIS Rep #:[id number] : 1945 79 From: Montse Cabrera MD PCP: Dr. Argelia Darby, DO Status:ADM IN Location: [place] [address]- Subjective Subjective Patient seen and examined. Pain [...] 79.7 H, Lymph % (Auto) 11.2 L, [place] % (Auto) 7.2, Eos % (Auto) 1.4, [...] which showed nonsustained vtach * followed [facility] on outpatient basis * cardiology consulted; [...] no intubation. Charges/Coding Visit Charges Inpatient E&M: 37589 Subs Hosp L2 12/08/24 1611 Montse Cabrera MD Cosigner Signature (if applicable): CC: ~ Signed [facility]03-17-2025 Progress note Author Michelle Dang [facility] Note Date/Time December 08, 2024 1:3 0pm [facility] Medical Records Department [address] [place] [address] Progress Note - Cardiology 12/08/24 1326 MR#: [id number] Acct: [id number] Name: JERO LEWIS Rep #:[id number] : 1945 79 From: Michelle harrell MD PCP: Dr. Argelia Darby, DO Status:ADM IN Location: [place] [address] Subjective Subjective Patient's dizziness is better after [...] 79.7 H, Lymph % (Auto) 11.2 L, [place] % (Auto) 7.2, Eos % (Auto) 1.4, [...] 79.7 H, Lymph % (Auto) 11.2 L, [place] % (Auto) 7.2, Eos % (Auto) 1.4, [...] Cosigner Signature (if applicable): CC: ~ Signed [facility] Work Phone: 1(944) 506-688003-17-2025 Progress note [facility] Medical Records Department [address] [place] [address] Progress Note - Cardiology 12/08/24 1326 MR#: [id number] Acct: [id number] Name: JERO LEWIS Rep #:[id number] : 1945 79 From: Michelle harrell MD PCP: Dr. Argelia Darby, DO Status:ADM IN Location: [place] [address] Subjective Subjective Patient's dizziness is better after [...] 79.7 H, Lymph % (Auto) 11.2 L, [place] % (Auto) 7.2, Eos % (Auto) 1.4, [...] 79.7 H, Lymph % (Auto) 11.2 L, [place] % (Auto) 7.2, Eos % (Auto) 1.4, [...] Cosigner Signature (if applicable): CC: ~ Signed [facility]03-16-2025 Progress note Author Montse Cabrera [facility] Note Date/Time December 07, 2024 2:0 0pm [facility] Medical Records Department [address] [place] [address] Progress Note 12/07/241336 MR#: [id number] Acct: [id number] Name: JERO LEWIS Rep #:[id number] : 1945 79 From: Montse Cabrera MD PCP: Dr. Argelia Darby, DO Status:ADM IN Location: [place] [address] Subjective Subjective Patient seen and examined. Her [...] 85.3 H, Lymph % (Auto) 8.6 L, [place] % (Auto) 4.0, Eos % (Auto) 1.3, [...] 77.5 H, Lymph % (Auto) 13.1 L, [place] % (Auto) 8.3, Eos % (Auto) 0.4, [...] acute intracranial abnormality. Senescent changes. Reading Location: [facility] Cervical Spine CT 12/06/24 16:41 IMPRESSION: No evidence of acute cervical spine fracture. Demineralization does limit sensitivity One or more dose reduction techniques were used (e.g., Automated exposure control, adjustment of the mA and/or kV according to patient size, use of iterative reconstruction technique). Reading Location: [facility] Facial/Sinus 12/06/24 16:41 IMPRESSION: No evidence of acute facial fracture. Senescent changes. One or more dose reduction techniques were used (e.g., Automated exposure control, adjustment of the mA and/or kV according to patient size, use of iterative reconstruction technique). Reading Location: [facility] Chest X-Ray 12/06/24 17:10 IMPRESSION: No acute findings. Senescent changes. Mild cardiac enlargement. Reading Location: [facility] Knee X-Ray 12/06/24 17:10 IMPRESSION: Acute patellar fracture on background demineralization. Reading Location: [facility] Rhythm Strip Rhythm Strip: Being read as [...] which showed nonsustained vtach * [facility] outpatient basis * cardiology consulted; [...] full code Charges/Coding Visit Charges Inpatient E&M: 88563 Subs Hosp L2 12/07/24 1400 <Electronically signed by Montse Cabrera MD> Montse Cabrera MD Cosigner Signature (if applicable): CC: ~ Signed [facility] Work Phone: 1(863) 965-242903-16-2025 Consult note Author Michelle Dang [facility] Note Date/Time December 07, 2024 1:1 7pm [facility] Medical Records Department [address] [place] [address] Consultation - Cardiology 12/07/24 1310 MR#: [id number] Acct: [id number] Name: JERO LEWIS Rep #:[id number] : 1945 79 From: Michelle harrell MD PCP: Dr. Argelia Darby, DO Status:ADM IN Location: [place] [address] Assessment & Plan Assessment/Plan (1) Elevated troponin: [...] breath etc. Her troponin is mildly elevated. [facility] Medical History Vertigo PVCs (premature ventricular contractions) [...] 1 tab PO BID 3 12/06/24 History bl-chpd-srik-joseph-boron chew tablet (Caltrate 600-D Plus Minerals) cyanocobalamin [...] Applicable: No Charges/Coding Visit Charges Inpatient E&M: 33089 Init Hosp L2 Objective Data Vital Signs: [...] 85.3 H, Lymph % (Auto) 8.6 L, [place] % (Auto) 4.0, Eos % (Auto) 1.3, [...] 77.5 H, Lymph % (Auto) 13.1 L, [place] % (Auto) 8.3, Eos % (Auto) 0.4, [...] 85.3 H, Lymph % (Auto) 8.6 L, [place] % (Auto) 4.0, Eos % (Auto) 1.3, [...] 77.5 H, Lymph % (Auto) 13.1 L, [place] % (Auto) 8.3, Eos % (Auto) 0.4, [...] acute intracranial abnormality. Senescent changes. Reading Location: [facility] Cervical Spine CT 12/06/24 16:41 IMPRESSION: No evidence of acute cervical spine fracture. Demineralization does limit sensitivity One or more dose reduction techniques were used (e.g., Automated exposure control, adjustment of the mA and/or kV according to patient size, use of iterative reconstruction technique). Reading Location: [facility] Facial/Sinus 12/06/24 16:41 IMPRESSION: No evidence of acute facial fracture. Senescent changes. One or more dose reduction techniques were used (e.g., Automated exposure control, adjustment of the mA and/or kV according to patient size, use of iterative reconstruction technique). Reading Location: [facility] Chest X-Ray 12/06/24 17:10 IMPRESSION: No acute findings. Senescent changes. Mild cardiac enlargement. Reading Location: [facility] Knee X-Ray 12/06/24 17:10 IMPRESSION: Acute patellar fracture on background demineralization. Reading Location: [facility] 12/07/24 1317 <Electronically signed by Michelle Dang MD> Cosigner Signature (if applicable): CC: Dr. Argelia Darby, DO~ Signed [facility] Work Phone: 1(440) 618-787603-16-2025 Progress note [facility] Medical Records Department [address] [place] [address] Progress Note 12/07/24 1337 MR#: [id number] Acct: [id number] Name: JERO LEWIS Rep #:[id number] : 1945 79 From: Montse Cabrera MD PCP: Dr. Argelia Darby DO Status:ADM IN Location: [place] [address] Subjective Subjective Patient seen and examined. Her [...] 85.3 H, Lymph % (Auto) 8.6 L, [place] % (Auto) 4.0, Eos % (Auto) 1.3, [...] 77.5 H, Lymph % (Auto) 13.1 L, [place] % (Auto) 8.3, Eos % (Auto) 0.4, [...] acute intracranial abnormality. Senescent changes. Reading Location: [facility] Cervical Spine CT 12/06/24 16:41 IMPRESSION: No evidence of acute cervical spine fracture. Demineralization does limit sensitivity One or more dose reduction techniques were used (e.g., Automated exposure control, adjustment of the mA and/or kV according to patient size, use of iterative reconstruction technique). Reading Location: [facility] Facial/Sinus 12/06/24 16:41 IMPRESSION: No evidence of acute facial fracture. Senescent changes. One or more dose reduction techniques were used (e.g., Automated exposure control, adjustment of the mA and/or kV according to patient size, use of iterative reconstruction technique). Reading Location: [facility] Chest X-Ray 12/06/24 17:10 IMPRESSION: No acute findings. Senescent changes. Mild cardiac enlargement. Reading Location: [facility] Knee X-Ray 12/06/24 17:10 IMPRESSION: Acute patellar fracture on background demineralization. Reading Location: [facility] Rhythm Strip Rhythm Strip: Being read as [...] which showed nonsustained vtach * [facility] basis * cardiology consulted; [...] full code Charges/Coding Visit Charges Inpatient E&M: 28385 Subs Hosp L2 12/07/24 1400 Montse Cabrera MD Cosigner Signature (if applicable): CC: ~ Signed [facility]03-16-2025 Consult note [facility] Medical Records Department [address] [place] [address] Consultation - Cardiology 12/07/24 1310 MR#: [id number] Acct: [id number] Name: JERO LEWIS Rep #:[id number] : 1945 79 From: Michelle harrell MD PCP: Dr. Argelia Darby, DO Status:ADM IN Location: [place] [address] Assessment & Plan Assessment/Plan (1) Elevated troponin: [...] breath etc. Her troponin is mildly elevated. [facility] Medical History Vertigo PVCs (premature ventricular contractions) [...] 1 tab PO BID 3 12/06/24 History bj-kebv-ulcd-joseph-boron chew tablet (Caltrate 600-D Plus Minerals) cyanocobalamin [...] (cerebral vascular accident) Father Kimberlee disease Son [place] disease Brother Heart disease Hypertension Daughter Lupus [...] Applicable: No Charges/Coding Visit Charges Inpatient E&M: 80165 Init Hosp L2 Objective Data Vital Signs: [...] 85.3 H, Lymph % (Auto) 8.6 L, [place] % (Auto) 4.0, Eos % (Auto) 1.3, [...] 77.5 H, Lymph % (Auto) 13.1 L, [place] % (Auto) 8.3, Eos % (Auto) 0.4, [...] 85.3 H, Lymph % (Auto) 8.6 L, [place] % (Auto) 4.0, Eos % (Auto) 1.3, [...] 77.5 H, Lymph % (Auto) 13.1 L, [place] % (Auto) 8.3, Eos % (Auto) 0.4, [...] acute intracranial abnormality. Senescent changes. Reading Location: [facility] Cervical Spine CT 12/06/24 16:41 IMPRESSION: No evidence of acute cervical spine fracture. Demineralization does limit sensitivity One or more dose reduction techniques were used (e.g., Automated exposure control, adjustment of the mA and/or kV according to patient size, use of iterative reconstruction technique). Reading Location: [facility] Facial/Sinus 12/06/24 16:41 IMPRESSION: No evidence of acute facial fracture. Senescent changes. One or more dose reduction techniques were used (e.g., Automated exposure control, adjustment of the mA and/or kV according to patient size, use of iterative reconstruction technique). Reading Location: [facility] Chest X-Ray 12/06/24 17:10 IMPRESSION: No acute findings. Senescent changes. Mild cardiac enlargement. Reading Location: [facility] Knee X-Ray 12/06/24 17:10 IMPRESSION: Acute patellar fracture on background demineralization. Reading Location: [facility] 12/07/24 1317 Cosigner Signature (if applicable): CC: Dr. Argelia Darby, DO~ Signed [facility]03-16-2025 Consult note Author Luis Dozier [facility] Note Date/Time December 07, 2024 8:5 5am [facility] Medical Records Department [address] [place] [address] Consultation - Orthopedics 12/07/24 0843 MR#: [id number] Acct: [id number] Name: JERO LEWIS Rep #:[id number] : 1945 79 From: Luis Cowart PCP: Dr. Argelia Darby, Status:ADM IN Location: [facility] [id number] HPI Consult Data Date of Consult: [...] but does not use in the bathroom. [facility] Medical History Vertigo PVCs (premature ventricular contractions) [...] 1 tab PO BID 3 12/06/24 History qa-rjhd-zoph-joseph-boron chew tablet (Caltrate 600-D Plus Minerals) cyanocobalamin [...] 85.3 H, Lymph % (Auto) 8.6 L, [place] % (Auto) 4.0, Eos % (Auto) 1.3, [...] 77.5 H, Lymph % (Auto) 13.1 L, [place] % (Auto) 8.3, Eos % (Auto) 0.4, [...] acute intracranial abnormality. Senescent changes. Reading Location: [facility] Cervical Spine CT 12/06/24 16:41 IMPRESSION: No evidence of acute cervical spine fracture. Demineralization does limit sensitivity One or more dose reduction techniques were used (e.g., Automated exposure control, adjustment of the mA and/or kV according to patient size, use of iterative reconstruction technique). Reading Location: [facility] Facial/Sinus 12/06/24 16:41 IMPRESSION: No evidence of acute facial fracture. Senescent changes. One or more dose reduction techniques were used (e.g., Automated exposure control, adjustment of the mA and/or kV according to patient size, use of iterative reconstruction technique). Reading Location: [facility] Chest X-Ray 12/06/24 17:10 IMPRESSION: No acute findings. Senescent changes. Mild cardiac enlargement. Reading Location: [facility] Knee X-Ray 12/06/24 17:10 IMPRESSION: Acute patellar fracture on background demineralization. Reading Location: [facility] Knee images independently reviewed. Minimally displaced transverse [...] Patient will likely need inpatient rehabilitation or mcc as she acclimates to weightbearing restrictions and [...] is discharged. If she remains in a [facility] can follow x-rays on a weekly basis plan on weekly 2 views of the knee AP and lateral and contact physician to review results. Knee must remain in extension and the knee immobilizer until follow-up. [facility] Office: (2) Elevated troponin: (3) Syncope: (4) NSVT (nonsustained ventricular tachycardia): 12/07/24 1087 <Electronically signed by Luis Dozier MD> Cosigner Signature (if applicable): CC: Dr. Argelia Darby, DO~ Signed [facility] Work Phone: 1(521) 214-973803-16-2025 Consult note [facility] Medical Records Department [address] [place] [address] Consultation - Orthopedics 12/07/24 0843 MR#: [id number] Acct: [id number] Name: JERO LEWIS Rep #:[id number] : 1945 79 From: Luis Cowart PCP: Dr. Argelia Darby, Status:ADM IN Location: [place] [address] HPI Consult Data Date of Consult: 12/07/24 [...] but does not use in the bathroom. [facility] Medical History Vertigo PVCs (premature ventricular contractions) [...] 1 tab PO BID 3 12/06/24 History xh-hbkd-liky-joseph-boron chew tablet (Caltrate 600-D Plus Minerals) cyanocobalamin [...] (cerebral vascular accident) Father Kimberlee disease Son [place] disease Brother Heart disease Hypertension Daughter Lupus [...] 85.3 H, Lymph % (Auto) 8.6 L, [place] % (Auto) 4.0, Eos % (Auto) 1.3, [...] 77.5 H, Lymph % (Auto) 13.1 L, [place] % (Auto) 8.3, Eos % (Auto) 0.4, [...] acute intracranial abnormality. Senescent changes. Reading Location: [facility] Cervical Spine CT 12/06/24 16:41 IMPRESSION: No evidence of acute cervical spine fracture. Demineralization does limit sensitivity One or more dose reduction techniques were used (e.g., Automated exposure control, adjustment of the mA and/or kV according to patient size, use of iterative reconstruction technique). Reading Location: [facility] Facial/Sinus 12/06/24 16:41 IMPRESSION: No evidence of acute facial fracture. Senescent changes. One or more dose reduction techniques were used (e.g., Automated exposure control, adjustment of the mA and/or kV according to patient size, use of iterative reconstruction technique). Reading Location: [facility] Chest X-Ray 12/06/24 17:10 IMPRESSION: No acute findings. Senescent changes. Mild cardiac enlargement. Reading Location: [facility] Knee X-Ray 12/06/24 17:10 IMPRESSION: Acute patellar fracture on background demineralization. Reading Location: [facility] Knee images independently reviewed. Minimally displaced transverse [...] Patient will likely need inpatient rehabilitation or mcc as she acclimates to weightbearing restrictions and [...] she is discharged. If [facility] can follow x-rays on a weekly basis plan on weekly 2 views of the knee AP and lateral and contact physician to review results. Knee must remain in extension and the knee immobilizer until follow-up. [facility] Office: (2) Elevated troponin: (3) Syncope: (4) NSVT (nonsustained ventricular tachycardia): 12/07/24 0855 Cosigner Signature (if applicable): CC: Dr. Argelia Darby, ~ Signed [facility]03-16-2025 Discharge summary Author Ritachristina Nowak [facility] Note Date/Time December 06, 2024 10: 12pm [facility] Medical Records Department [address] [place] [address] Emergency Department Summary 12/06/24 MR#: [id number] Acct: [id number] Name: JERO LEWIS Rep #:[id number] : 1945 79 From: Rita GAMING PCP: Dr. Argelia Darby, Status:ADM IN Location: [facility] [id number] HPI <MEKHI Raza - Last Filed: [...] does not know the name or reason. [facility] <MEKHI Raza - Last Filed: 12/06/24 18:48> [facility] Medical History Allergic rhinitis Anxiety and depression CAD (coronary artery disease) [place] disease Chronic hyponatremia COVID-19 Debility Depression Dizziness [...] 1 tab PO BID 3 12/06/24 History bv-qkud-frul-joseph-boron chew tablet (Caltrate 600-D Plus Minerals) cyanocobalamin [...] History Mother CVA (cerebral vascular accident) Father [place] disease Son Kimberlee disease Brother Heart disease [...] <MEKHI Raza - Last Filed: 12/06/24 18:48> [facility] Narrative Medical decision making narrative: Differential includes [...] History is [79-year-old female went outside to cook pickled meat packages when she bent over she got [...] 85.3 H Lymph % (Auto) 8.6 L [place] % (Auto) 4.0 Eos % (Auto) 1.3 [...] acute intracranial abnormality. Senescent changes. Reading Location: [facility] Cervical Spine CT 12/06/24 16:41 IMPRESSION: No evidence of acute cervical spine fracture. Demineralization does limit sensitivity One or more dose reduction techniques were used (e.g., Automated exposure control, adjustment of the mA and/or kV according to patient size, use of iterative reconstruction technique). Reading Location: [facility] Facial/Sinus 12/06/24 16:41 IMPRESSION: No evidence of acute facial fracture. Senescent changes. One or more dose reduction techniques were used (e.g., Automated exposure control, adjustment of the mA and/or kV according to patient size, use of iterative reconstruction technique). Reading Location: [facility] Chest X-Ray 12/06/24 17:10 IMPRESSION: No acute findings. Senescent changes. Mild cardiac enlargement. Reading Location: [facility] Knee X-Ray 12/06/24 17:10 IMPRESSION: Acute patellar fracture on background demineralization. Reading Location: [facility] Chest x-ray portable, single view, interpreted by myself chronic changes no acute process. ED attending interpretation of left knee shows displaced patellar fracture. <Dr. Orville Cortez MD - Last Filed: 12/06/24 19:23> [facility] Narrative Medical decision making narrative: I have personally performed a face to face assessment of the patient and have reviewed the MEJIA Note. I performed a substantive portion of the visit including all aspects of the following. My gutierrez findings include: History is [79-year-old female went outside to cook pickled meat packages when she bent over she got [...] 85.3 H Lymph % (Auto) 8.6 L [place] % (Auto) 4.0 Eos % (Auto) 1.3 [...] acute intracranial abnormality. Senescent changes. Reading Location: [facility] Cervical Spine CT 12/06/24 16:41 IMPRESSION: No evidence of acute cervical spine fracture. Demineralization does limit sensitivity One or more dose reduction techniques were used (e.g., Automated exposure control, adjustment of the mA and/or kV according to patient size, use of iterative reconstruction technique). Reading Location: [facility] Facial/Sinus 12/06/24 16:41 IMPRESSION: No evidence of acute facial fracture. Senescent changes. One or more dose reduction techniques were used (e.g., Automated exposure control, adjustment of the mA and/or kV according to patient size, use of iterative reconstruction technique). Reading Location: [facility] Chest X-Ray 12/06/24 17:10 IMPRESSION: No acute findings. Senescent changes. Mild cardiac enlargement. Reading Location: [facility] Knee X-Ray 12/06/24 17:10 IMPRESSION: Acute patellar fracture on background demineralization. Reading Location: [facility] Chest x-ray portable, single view, interpreted by [...] problems, contact your Primary Care Provider. Call [employer] [facility] ([phone]) or report to the closest Emergency Room. Call 911 if necessary. 12/06/24 1848 <Electronically signed by Rita GAMING> Cosigner Signature (if applicable): 12/06/242211 <Electronically signed by Orville Cortez MD> CC: Dr. Argelia Darby, DO ~ Signed [facility] Work Phone: 1(671) 825-468303-15-2025 Discharge summary [facility] Medical Records Department [address] [place] [address] Emergency Department Summary 12/06/24 MR#: [id number] Acct: [id number] Name: JERO LEWIS Rep #:[id number] : 1945 79 From: Rita GAMING PCP: Dr. Argelia Darby, DO Status:ADM IN Location: [place] [address] HPI HPI - Fall History of Present [...] does not know the name or reason. [facility] Medical History Allergic rhinitis Anxiety and depression [...] 1 tab PO BID 3 12/06/24 History wi-bokf-fpvw-joseph-boron chew tablet (Caltrate 600-D Plus Minerals) cyanocobalamin [...] History is [79-year-old female went outside to cook pickled meat packages when she bent over she got [...] RDW Std Deviation 41.1 RDW Coeff of Aleoj 12.9 Plt Count 279 MPV 9.2 Immature Gran % (Auto) 0.500 Neut % (Auto) 85.3 H Lymph % (Auto) 8.6 L [place] % (Auto) 4.0 Eos % (Auto) 1.3 [...] acute intracranial abnormality. Senescent changes. Reading Location: [facility] Cervical Spine CT 12/06/24 16:41 IMPRESSION: No evidence of acute cervical spine fracture. Demineralization does limit sensitivity One or more dose reduction techniques were used (e.g., Automated exposure control, adjustment of the mA and/or kV according to patient size, use of iterative reconstruction technique). Reading Location: [facility] Facial/Sinus 12/06/24 16:41 IMPRESSION: No evidence of acute facial fracture. Senescent changes. One or more dose reduction techniques were used (e.g., Automated exposure control, adjustment of the mA and/or kV according to patient size, use of iterative reconstruction technique). Reading Location: [facility] Chest X-Ray 12/06/24 17:10 IMPRESSION: No acute findings. Senescent changes. Mild cardiac enlargement. Reading Location: [facility] Knee X-Ray 12/06/24 17:10 IMPRESSION: Acute patellar fracture on background demineralization. Reading Location: [facility] Chest x-ray portable, single view, interpreted by [...] History is [79-year-old female went outside to cook pickled meat packages when she bent over she got [...] 85.3 H Lymph % (Auto) 8.6 L [place] % (Auto) 4.0 Eos % (Auto) 1.3 [...] acute intracranial abnormality. Senescent changes. Reading Location: [facility] Cervical Spine CT 12/06/24 16:41 IMPRESSION: No evidence of acute cervical spine fracture. Demineralization does limit sensitivity One or more dose reduction techniques were used (e.g., Automated exposure control, adjustment of the mA and/or kV according to patient size, use of iterative reconstruction technique). Reading Location: [facility] Facial/Sinus 12/06/24 16:41 IMPRESSION: No evidence of acute facial fracture. Senescent changes. One or more dose reduction techniques were used (e.g., Automated exposure control, adjustment of the mA and/or kV according to patient size, use of iterative reconstruction technique). Reading Location: [facility] Chest X-Ray 12/06/24 17:10 IMPRESSION: No acute findings. Senescent changes. Mild cardiac enlargement. Reading Location: [facility] Knee X-Ray 12/06/24 17:10 IMPRESSION: Acute patellar fracture on background demineralization. Reading Location: [facility] Chest x-ray portable, single view, interpreted by [...] and Local Irrigated (ml): 250 Number of Sutures/Elliott: 6 Suture Information: Ethilon, Simple and 5-0 [...] your Primary Care Provider. Call [facility] ([phone]) or report to the closest Emergency Room. Call 911 if necessary. 12/06/24 1848 Cosigner Signature (if applicable): 12/06/24 2212 CC: Dr. Argelia Darby, DO ~ Signed [facility]03-15-2025 History and physical note Author Sandro Jackman [facility] Note Date/Time December 06, 2024 7:0 9pm [facility] Medical Records Department [address] [place] [address] H&P Exam - Hospitalist 12/06/241851 MR#: [id number] Acct: [id number] Name: JERO LEWIS Rep #:[id number] : 1945 79 From: Sandro Jackman MD PCP: Dr. Argelia Darby, Status:ADM IN Location: [facility] [id number]- 1 HPI - General General Date of [...] fracture, Cervical spine fracture, Or intracranial bleed [facility] Medical History Allergic rhinitis Anxiety and depression CAD (coronary artery disease) [place] disease Chronic hyponatremia COVID-19 Debility Depression Dizziness [...] 1 tab PO BID 3 Unknown History wi-mnbl-ztts-joseph-boron chew tablet (Caltrate 600-D Plus Minerals) cyanocobalamin [...] (cerebral vascular accident) Father Kimberlee disease Son [place] disease Brother Heart disease Hypertension Daughter Lupus [...] 85.3 H, Lymph % (Auto) 8.6 L, [place] % (Auto) 4.0, Eos % (Auto) 1.3, [...] acute intracranial abnormality. Senescent changes. Reading Location: [facility] Cervical Spine CT 12/06/24 16:41 IMPRESSION: No evidence of acute cervical spine fracture. Demineralization does limit sensitivity One or more dose reduction techniques were used (e.g., Automated exposure control, adjustment of the mA and/or kV according to patient size, use of iterative reconstruction technique). Reading Location: [facility] Facial/Sinus 12/06/24 16:41 IMPRESSION: No evidence of acute facial fracture. Senescent changes. One or more dose reduction techniques were used (e.g., Automated exposure control, adjustment of the mA and/or kV according to patient size, use of iterative reconstruction technique). Reading Location: [facility] Chest X-Ray 12/06/24 17:10 IMPRESSION: No acute findings. Senescent changes. Mild cardiac enlargement. Reading Location: [facility] Knee X-Ray 12/06/24 17:10 IMPRESSION: Acute patellar fracture on background demineralization. Reading Location: [facility] Echocardiogram 09/26/2023: Interpretation Summary The left ventricular [...] 06/25/2024: Interpretation: [place] [address] beats recorded over the 24 hour period. [...] test. 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 Sandro Jackman MD; Dr. Argelia Darby, DO~ Signed [facility] Work Phone: 1(642) 564-414003-15-2025 History and physical note [facility] Medical Records Department [address] [place] [address] H&P Exam - Hospitalist 12/06/24 1852 MR#: [id number] Acct: [id number] Name: JERO LEWIS Rep #:[id number] : 1945 79 From: Sandro Jackman MD PCP: Dr. Argelia Darby, DO Status:ADM IN Location: [facility] [id number]- 1 HPI - General General Date of [...] fracture, Cervical spine fracture, Or intracranial bleed [facility] Medical History Allergic rhinitis Anxiety and depression [...] 1 tab PO BID 3 Unknown History ww-whrc-wgmo-joseph-boron chew tablet (Caltrate 600-D Plus Minerals) cyanocobalamin [...] History Mother CVA (cerebral vascular accident) Father [place] disease Son [place] disease Brother Heart disease Hypertension Daughter Lupus [...] 85.3 H, Lymph % (Auto) 8.6 L, [place] % (Auto) 4.0, Eos % (Auto) 1.3, [...] acute intracranial abnormality. Senescent changes. Reading Location: [facility] Cervical Spine CT 12/06/24 16:41 IMPRESSION: No evidence of acute cervical spine fracture. Demineralization does limit sensitivity One or more dose reduction techniques were used (e.g., Automated exposure control, adjustment of the mA and/or kV according to patient size, use of iterative reconstruction technique). Reading Location: [facility] Facial/Sinus 12/06/24 16:41 IMPRESSION: No evidence of acute facial fracture. Senescent changes. One or more dose reduction techniques were used (e.g., Automated exposure control, adjustment of the mA and/or kV according to patient size, use of iterative reconstruction technique). Reading Location: [facility] Chest X-Ray 12/06/24 17:10 IMPRESSION: No acute findings. Senescent changes. Mild cardiac enlargement. Reading Location: [facility] Knee X-Ray 12/06/24 17:10 IMPRESSION: Acute patellar fracture on background demineralization. Reading Location: [facility] Echocardiogram 09/26/2023: Interpretation Summary The left ventricular [...] 06/25/2024: Interpretation: [place] were [place] 92416 beats recorded over the 24 hour period. [...] test. 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 Argelia Darby DO~ Signed [facility]03-15-2025 Radiology Diagnostic study note [facility] Imaging Services [address] [place] [address] Chest 1 View (Portable) MR#: [id number] Acct: [id number] Name: JERO LEWIS Rep #: [id number] : 1945 F 79 From: Jean Claude Azevedo MD PCP: Dr. Argelia Darby DO Status: ADM IN Study:Chest 1 View (Portable) Date of Exam: 12/06/24 Exam# [id number] Ordering Dr: Rita Brice PROCEDURE: CHEST 1 VIEW (PORTABLE) 12/06/2024 REASON FOR EXAM: FALL TECHNIQUE: Frontal view of the chest. COMPARISON: None. FINDINGS: Mildly enlarged heart. Bronchial thickening. No localizing infiltrate, effusion or pneumothorax. Degenerative changes seen about the right shoulder. Tortuous thoracic aorta. RAD/Chest 1 View (Portable) IMPRESSION: No acute findings. Senescent changes. Mild cardiac enlargement. Reading Location: [id number] CC: Dr. Argelia Darby DO; MEKHI Raza ~ Electronic Development Technician: Signed [facility]03-15-2025 Radiology Diagnostic study note [facility] Imaging Services [address] [place] [address] Sinus/Facial Bone MR#: [id number] Acct: [id number] Name: JERO LEWIS Rep #: [id number] : 1945 F 79 From: Jean Claude Azevedo MD PCP: Dr. Argelia Darby DO Status: REG ER Study:Sinus/Facial Bone Date of Exam: Exam# [id number] Ordering Dr: Rita Brice PROCEDURE: SINUS/FACIAL BONE [...] use of iterative reconstruction technique). Reading Location: [facility] CC: Dr. Argelia Darby DO; MEKHI Raza ~ Electronic Development Technician: Signed [facility]03-15-2025 Radiology Diagnostic study note [facility] Imaging Services [address] [place] [address] Knee 1 or 2 Views MR#: [id number] Acct: [id number] Name: JERO LEWIS Rep #: [id number] : 1945 F 79 From: Jean Claude Azevedo MD PCP: Dr. Argelia Darby DO Status: REG ER Study:Knee 1 or 2 Views Date of Exam: Exam# [id number] Ordering Dr: Rita Brice PROCEDURE: KNEE 1 OR 2 VIEWS REASON FOR EXAM: PAIN TECHNIQUE: Two-view left knee COMPARISON: None. FINDINGS: There is an acute fracture of the patellar body which is displaced approximately6 mm with a joint effusion. Demineralized bones. No dislocation RAD/Knee 1 or 2 Views IMPRESSION: Acute patellar fracture on background demineralization. Reading Location: [facility] CC: Dr. Argelia Darby DO; MEKHI Raza ~ Electronic Development Technician: Signed [facility]03-15-2025 Radiology Diagnostic study note [facility] Imaging Services [address] [place], [place] [address] Spine Cervical without Contras MR#: [id number] Acct: [id number] Name: JERO LEWIS Rep #: [id number] : 1945 79 From: Jean Claude Azevedo MD PCP: Dr. Argelia Darby DO Status: REG ER Study:Spine Cervical without Contras Date of Exam: 12/06/24 Exam# [id number] Ordering Dr: Rita Brice PROCEDURE: SPINE CERVICAL [...] use of iterative reconstruction technique). Reading Location: [facility] CC: Dr. Argelia Darby DO; MEKHI Raza ~ Electronic Development Technician: Signed [facility]03-15-2025 Radiology Diagnostic study note [facility] Imaging Services [address] [place] [address] Brain/Head without Contrast MR#: [id number] Acct: [id number] Name: JERO LEWIS Rep #: [id number] : 1945 F 79 From: Jean Claude Azevedo MD PCP: Dr. Argelia Darby DO Status: REG ER Study:Brain/Head without Contrast Date of Exa m: 12/06/24 Exam# [id number] Ordering Dr: Rita Brice EXAM: BRAIN/HEAD WITHOUT [...] acute intracranial abnormality. Senescent changes. Reading Location: [id number] CC: Dr. Argelia Darby DO; MEKHI Raza ~ Electronic Development Technician: Signed [facility]12-05-2024 Evaluation note* Diagnosis Onset Date Resolution [...] to ambulate acute December 06, 2024 6:05pm [facility] Work Phone: 1(491) 645-663412-05-2024 Evaluation note* Diagnosis Onset Date Resolution Status [...] ar tachycardia) chronic December 06, 2024 6:45pm [facility] Work Phone: 1(161) 310-340212-02-2024 Note* Exam Date Time Procedure Performing Provider Status 08/25/24 4:17 PM Echocardiogram, Adult - CV Auth (Verified) [facility] 12-02-2024 Note ORIGINAL EXAMINATION: BONE DENSITOMETRY [...] Sign Date: 08/25/2024 3:40:14 PM Ordering Provider: [facility]08-22-2024 Note ORIGINAL EXAMINATION: CT Angiogram of the [...] Sign Date: 05/15/2024 9:48:09 AM Ordering Provider: [facility]08-22-2024 Note ORIGINAL EXAMINATION: CTA neck: TECHNIQUE: Contiguous [...] stenosis as the reference point. Interpreted by: zAam Art MD Preliminary Report By: Azam Art MD Electronically signed By Azam Art MD Dictated Date: 05/15/2024 9:48:18 AM Prelim Date: 05/15/2024 9:55:06 AM Sign Date: 05/15/2024 9:55:06 AM [facility]* Exam Date Time Procedure Performing Provider Status 05/15/24 8:16 AM VL Carotid US/Dopple r Complete - CV Auth (Verified) [facility] 12-10-2023 Hospital Discharge instructions Patient Education [...] when standing up too quickly or straining [id number] [employer]. [address] [place] [address]. All rights reserved. This information is not [...] about: All medicines you take, including prescription, mkbr-fcg-ojsrloq, herbs, and supplements Any other symptoms you [...] Chest, arm, neck, back, or jaw pain [id number] [employer]. [address] [place] [address]. All rights reserved. This information is not intended as a substitute for professional medical care. Always follow yourhealthcare professional's instructions. Follow Up Care 09/02/2023 11:01:47 With:ARGELIA DARBY DO Address: [address] [place] [phone] When:2-4 days [facility] 12-10-2023 Emergency department Discharge summary Discharge Instructions Thank you for allowing [facility] to assist you with your healthcare needs. The following is importantdischarge information regarding your hospital visit. Diagnosis from Today's Visit Dizziness Head pressure What to Do Next Instructions from Your Care Team No qualifying data available. Post Acute Orders No qualifying data available. You Need to Schedule the Following Appointments Follow Up with ARGELIA DARBY DO When Within 2-4 days Where: [address] [place] [phone] Allergies ASA/caffeine/propoxyphene (Unknown) Darvon (vomiting) atorvastatin (Unknown) [...] when standing up too quickly or straining 8469-6676 [employer]. [address] [place] [address]. All rights reserved. This information is not intended as a substitute for professional medical care. Always follow yourhealthcare professional's instructions. Dizziness (Uncertain Cause) Dizziness is a common symptom. It may be described as lightheadedness, spinning, or feeling like you are going to faint. Dizziness can have many causes. Be sure to tell the healthcare provider about: All medicines you take, including prescription, sxxm-qgi-yxbkiwl, herbs, and supplements Any other symptoms you [...] Chest, arm, neck, back, or jaw pain 5970-4324 [employer]. [address] [place] [address]. All rights reserved. This information is not intended as a substitute for professional medical care. Always follow yourhealthcare professional's instructions. Additional Information VACCINATE! IT SAVES LIVES! Members of the community who have not yet received the COVID-19 vaccine and would like to receive it can visit one of [facility] vaccine clinics. There are many vaccine clinic locations within the [facility]. For locations and available times, please visit www.gettheshot.coronavirus.[place].gov/. It is important to note that some COVID mobile vaccine clinics are held outdoors and may be canceled in rainy or stormy conditions. To learn more about pediatric vaccinations (ages 5-11), we invite you to visit the [facility] webpage. https://www.[email or web address].org/pages/4039-Fpjtq-Psnzqsayoly-Lroacdpbzn-Tfzlb-Bww stions.htmlTo learn more about the COVID-19 vaccine, we invite you to visit the CDC website for a list of frequently asked questions. https://www.cdc.gov/coronavirus/2019-ncov/vaccines/faq.html [facility] Patient Portal Access Instructions: Stay connected with your healthcare team and access your personal medical information anytime with the [facility] [employer] Patient Portal. If you would like a full copy of your medical records please contact the [facility] Medical Records Department Sunday through Sunday between 8a.m. and 4:30p.m. Please follow the directions below to access the portal: 1.Access the email account you provided upon registration to the [facility].2.Look for an invitation email from [facility].3.Open the email and access the invitation link: Accept Invitation to [employer]4.Fill in the required french to create your account. Sign into [email or web address] with your username and password that you [...] you will allow to register on the [employer] Patient Portal for access to your information. You can also access the [employer] Patient Portal on the [employer]. Simply click on Health Records under [employer] and then click on the [employer] logo. HOW TO SAFELY DISPOSE OF PRESCRIPTION [...] Call your local pharmacy or go to [email or web address].[employer]/2D5Xw1n to find one close to you.3.Make use of household items: Use cat litter or old coffee grounds to dispose medications if other options arenot available. Mix your drugs with these household products, seal them in an airtight container andthrow it into the garbage. Call [facility]: [phone] to be sure your drugs can be [...] aware that I should contact my doctor. Patient/Relationship Counselor Signature: Date/Time: Relationship to Patient: Witness Name/Signature: Date/Time: [facility]12-10-2023 Note ORIGINAL EXAMINATION: ONE XRAY VIEW [...] Date: 09/02/2023 12:13:24 PM Ordering Provider: [facility]12-10-2023 Note ORIGINAL EXAMINATION: CT OF THE HEAD [...] Date: 09/02/2023 12:12:26 PM Ordering Provider: YAZ[facility]12-10-2023 NoteSinus rhythm Borderline left axis deviation Anteroseptal infarct, old Compared to ECG at 07/27/2023 20:20:02 BORDERLINE ECG Electronic Signature: YAZMIN ANDERS DO 09/02/2023 11:44:59[facility] 11-15-2023 Discharge summary Author Juan Diego Marks [facility] August 08, 2023 7:38pm Note Date/Time August 08, 2023 7:34pm [facility] Medical Records Department [address] [place] [address] Discharge Summary 08/08/231931 MR#: [id number] Acct: [id number] Name: JERO LEWIS Rep #:[id number] : 1945 77 From: Juan Diego Marks MD PCP: Dr. Argelia Darby DO Status:ADM IN Location: [place] [address] Providers Date of Admission: 07/31/23 Primary Care [...] discharge home alone. Discharge home alone 08/14/2023, [facility] PT, [facility] Hugo. Physical Exam Const alert General Appearance: [...] (Auto) 43.2 L, Lymph % (Auto) 39.3, [place] % (Auto) 9.7, Eos % (Auto) 6.6 [...] pain Additional Instructions: Discharge home alone 08/14/2023, [facility], [facility] [employer]. Please Follow Up With: Dr. Snowden Meaningful Use Info Meaningful Use Diagnoses (Choose all that apply): None applicable Discharge Plan Admission Admit Date/Time: 07/31/23 15:21 Primary Reason for Your Visit: Debility. Attending Provider: Juan Diego Marks Chi Primary Care Provider: Argelia Darby Instructions Additional Instructions / Restrictions: Discharge home alone 08/14/2023, [facility], [facility] Van. Discharge Orders/Prescriptions Prescriptions: New acetaminophen 500 [...] DO; Dr. Juan Diego Marks MD~ Signed [facility] Work Phone: 1(307) 552-751811-09-2023 Progress note Author Marisa Najera [facility] August 02, 2023 10:43am Note Date/Time August 02, 2023 1 0:11am [facility] Medical Records Department [address] [place] [address] Progress Note - Pharmacy 08/02/23 1006 MR#: [id number] Acct: [id number] Name: JERO LEWIS Rep #:[id number] : 1945 77 From: Marisa Najera PCP: Dr. Argelia Darby, DO Status:ADM IN Location: [place] [address] TCU RX Drug Regimen Review Subjective/Objective Subjective/Objective: [...] Cosigner Signature (if applicable): CC: ~ Signed [facility] Work Phone: 1(944) 672-648711-08-2023 History and physical note Author Juan Diego Marks [facility] August 01, 2023 5:35pm Note Date/Time July 31, 2023 4 :23pm [facility] Medical Records Department [address] [place] [address] History & Physical Exam 07/31/23 1619 MR#: [id number] Acct: [id number] Name: JERO LEWIS Rep #:[id number] : 1945 77 From: Juan Diego Marks MD PCP: Dr. Argelia Darby, DO Status:ADM IN Location: [address] HPI - General General Date of Admission: 07/31/23 Date of Service: 07/31/23 Chief Complaint: Here for rehabilitation. HPI Narrative JERO LEWIS, is a 77 Female who presents with followin07/28/2023 Admit to [facility] from [facility]. +covid 07/24/2023, fatigue, malaise, nausea/vomiting, dizziness, loose stools, sore throat, myalgias, chills. Sodium 119, chronic hyponatremia on sodium chloride tablets, Chest X-ray negative. [facility] Emergency department gave normal saline 750ml iv, KCL 40meq,Magnesium 2gm iv, Zofran 4mg iv, Morphine 2mg iv, Tylenol 650mg x 1. IV fluids for hyponatremia, dehydration. Repeat magnesium level. 07/28/2023 Pulsox 100% on room air. Consult Nephrology for hyponatremia. 07/29/2023 Doing well. Stop HCTZ for hyponatremia. Magnesium level 2.1. 07/30/2023 Weak, unsafe to go home to [facility], recommend SNF. Decadron not necessary for covid. Sodium chloride 1gm bid, stop Lasix, stop HCTZ, stop Sertraline for hyponatremia. 07/31/2023 Admit to TCU with debility, here for rehabilitation, strengthening, prior to discharge home with . [facility] Medical History (Updated 07/31/23 @ 16:28 by [...] History Mother CVA (cerebral vascular accident) Father [place] disease Son [place] disease Brother Heart disease Hypertension Daughter Lupus [...] Depression - Sertraline 50mg daily, stable chronic senior care use, GDR not recommended, monitor sodium. 08/01/23 1735<Electronically signed by Juan Diego Marks MD> Cosigner Signature (if applicable): cc: Dr. Argelia Darby DO; Dr. Juan Diego Marks MD ~* Signed [facility] Work Phone: 1(926) 901-254111-07-2023 Progress note Author De Snowden [facility] July 31, 2023 12:46pm Note Date/Time July 31, 2023 1 2:46pm [facility] Medical Records Department [address] [place] [address] Progress Note - Nephrology 07/31/23 1244 MR#: [id number] Acct: [id number] Name: JERO LEWIS Rep #:[id number] : 1945 77 From: De arenas MD PCP: Dr. Argelia Darby DO Status:ADM [facility] Subjective Subjective No new events Objective Data [...] % (Auto) 67.4, Lymph % (Auto) 21.0, [place]% (Auto) 8.6, Eos % (Auto) 2.2, Baso [...] daily. Discharge planning discussed with hospitalist 07/31/23 5048 <Electronically signed by De Snowden MD> Cosigner Signature (if applicable): CC: ~ Signed [facility] Work Phone: 1(889) 419-721911-06-2023 Progress note Author Natalya Wright [facility] July 30, 2023 5:01pm Note Date/Time July 30, 2023 5 :01pm [facility] Medical Records Department [address] [place] [address] Progress Note - Hospitalist 07/30/23 6783 MR#: [id number] Acct: [id number] Name: JERO LEWIS Rep #:[id number] : 1945 77 From: Natalya Wright MD PCP: Dr. Argelia Darby, DO Status:ADM IN Location: MS3 IG116-4 Reason for Visit Reason for Visit: Diagnoses [...] replacement was given repeat serum potassium normal. Feeder Switchboard Operator consulted. 07/29/2023: Awaiting lab work today, she [...] temporally hold as could be contributing. #8. [place] disease carrier status: Patient with family history [...] documentation, 37minutes Charges/Coding Visit Charges Inpatient E&M: 90396 Subs Hosp L2 07/30/23 1701 <Electronically signed by Natalya Wright MD> Cosigner Signature (if applicable): CC: ~ Signed [facility] Work Phone: 1(658) 852-271311-05-2023 Progress note Author Trever Viveros [facility] July 29, 2023 8:34am Note Date/Time July 29, 2023 8 :29am [facility] Medical Records Department [address] [place] [address] Progress Note - Hospitalist 07/29/23824 MR#: [id number] Acct: [id number] Name: JERO LEWIS Rep #:[id number] : 1945 77 From: Trever pickering MD PCP: Dr. Argelia Darby, DO Status:ADM IN Location: [facility] QK316-9 Subjective Subjective Normal doing well, no issues [...] replacement was given repeat serum potassium normal. Feeder Switchboard Operator consulted. 07/29/2023: Awaiting lab work today, she [...] DVT: Lovenox Charges/Coding Visit Charges Inpatient E&M: 16783 Subs Hosp L2 07/29/23 0834 <Electronically signed by Trever Viveros MD> Cosigner Signature (if applicable): CC: ~ Signed [facility] Work Phone: 1(247) 720-512811-04-2023 Consult note Author De Snowden [facility] July 28, 2023 1:08pm Note Date/Time July 28, 2023 1 :08pm [facility] Medical Records Department [address] [place] [address] Consultation - Nephrology 07/28/23 1305 MR#: [id number] Acct: [id number] Name: JERO LEWIS Rep #:[id number] : 1945 77 From: De arenas MD PCP: Dr. Argelia Darby, DO Status:ADM JON Location: UT3 OX561-2 Assessment & Plan Assessment/Plan (1) Hyponatremia: PLAN: [...] loss or gain recently. No significant edema. [facility] Medical History Allergic rhinitis Anxiety and depression [place] disease Chronic hyponatremia COVID-19 History of endometrial [...] 86.0 H, Lymph % (Auto) 10.1 L, [place] % (Auto) 3.1, Eos % (Auto) 0.2, [...] Snowden MD; Dr. Argelia Darby, DO~ Signed [facility] Work Phone: 1(508) 375-845611-04-2023 Progress note Author Brooks Carcamo [facility] July 28, 2023 11:52am Note Date/Time July 28, 2023 7 :32am [facility] Medical Records Department [address] [place] [address] Progress Note - Hospitalist 07/28/23729 MR#: [id number] Acct: [id number] Name: JERO LEWIS Rep #:[id number] : 1945 77 From: Brooks Cowart PCP: Dr. Argelia Darby, DO Status:ADM JON Location: [place] [address]-1 Reason for Visit Reason for Visit: Diagnoses [...] 86.0 H, Lymph % (Auto) 10.1 L, [place] % (Auto) 3.1, Eos % (Auto) 0.2, [...] tablets by PCP. She does not follow vice president of talent acquisition. Physical exam General: Alert, Oriented x3, Cooperative [...] was directly admitted on [facility] floor from [facility] on 07/28/23 admitted with persistent cough [...] replacement was given repeat serum potassium normal. Feeder Switchboard Operator consulted. #3. Hypomagnesia: Magnesium from outside facility [...] carrier status: Patient with family history of [place] disease, noted to be a carrier herself [...] intubation status. Charges/Coding Visit Charges Inpatient E&M: 44332 Subs Hosp L2 07/28/23 1152 <Electronically signed by Brooks Carcamo MD> Cosigner Signature (if applicable): CC: ~ Signed [facility] Work Phone: 1(795) 554-612511-04-2023 History and physical note Author Madhavi Pate [facility] July 28, 2023 1:30am Note Date/Time July 28, 2023 1 2:22am [facility] Medical Records Department [address] [place] [address] H&P Exam - Hospitalist 07/28/23 0038 MR#: [id number] Acct: [id number] Name: JERO LEWIS Rep #:[id number] : 1945 77 From: Madhavi Pate MD PCP: Dr. Argelia Darby, DO Status:ADM JON Location: [place] [address] HPI - General General Date of Admission: 07/28/23 Date of Service: 07/28/23 Chief Complaint: Cough, N/V, + COVID diagnosis HPI Narrative The patient is a 77 y/o F w/ PMHx: Chronic hyponatremia (prior rx ordered for sodium tablets but no obvious labs consistent with hyponatremia upon review of outside records thus unclear), Hypothyroidism, HLD, HTN, Anxiety and Depression who presents to the [facility] as a direct admission from [facility] on 07/28/23 w/ history of COVID [...] congestion. Patient presented to the outside facility [facility] ED on 07/27/2023 and work-up at [...] no acute cardiopulmonary findings otherwise. Fromreview of clinisynm records patient had a COVID-19 positive result [...] mg po x 1. Home medications per [facility] most recent records (unverified): Amlodipine 5 mg [...] except 2 tablets on Sunday, Sunday, Sunday [facility] Medical History Allergic rhinitis Anxiety and depression [place] disease Chronic hyponatremia COVID-19 History of endometrial [...] MD) Mother CVA (cerebral vascular accident) Father [place] disease Son Kimberlee disease Brother Heart disease [...] Anxiety and Depression who presents to the [facility] as a direct admission from [facility] on 07/28/23 w/ history of COVID [...] temporally hold as could be contributing. #8. [place] disease carrier status: Patient with family history [...] 16 minutes. Charges/Coding Visit Charges Inpatient E&M: 14202 Init Hosp L3 Procedures Hospitalists Procedures: 51744 Advncd Care Plan 30 Min 07/28/23 0130 <Electronically signed by Madhvai Pate MD> Cosigner Signature (if applicable): CC: Dr. Madhavi Pate MD; Dr. Argelia Darby DO~ Signed [facility] Work Phone: 1(252) 446-915511-03-2023 Note ORIGINAL EXAMINATION: TWO XRAY VIEWS OF [...] Date: 07/27/2023 8:42:35 PM Ordering Provider[facility] Note Sinus rhythm Borderline left axis deviation Anteroseptal infarct, old Nonspecific repol abnormality, diffuse leads Compared to ECG at 06/20/2021 17:38:08 Electronic Signature: RASHEL SPANGLER DO 07/27/2023 20:35:36[facility] 10-31-2023 SARS-CoV-2 (COVID-19) RNA YOLANDA+probe Ql (Nph) Positive *ABN* (07/24/23 2:06 PM)AO Auto Urine [id number] Note ORIGINAL EXAMINATION: BONE DENSITOMETRY 08/23/2022 11:52 [...] 08/23/2022 1:33:00 PM Ordering Provider: ARGELIA DARBY [facility]11-30-2022 Note ORIGINAL EXAMINATION: BONE DENSITOMETRY 08/23/2022 [...] 08/23/2022 1:33:00 PM Ordering Provider: ARGELIA Randle [facility] note Author Joni Funk [facility] July 31, 2023 2:11pm Note Date/Time July 31, 2023 2 :11pm [facility] Medical Records Department [address] [place] [address] Counseling Note - Pharmacy 07/31/23 1410 MR#: [id number] Acct: [id number] Name: JERO LEWIS Rep #:[id number] : 1945 77 From: Joni Funk PCP: Dr. Argelia Darby DO Status:ADM IN Location: [place] [address] Med Reconciliation Pharmacy Service has performed discharge [...] Signature (if applicable): Date CC: ~ Signed [facility] Work Phone: Discharge summary Author Natalya Wright [facility] July 31, 2023 2:04pm Note Date/Time July 31, 2023 2 :01pm [facility] Medical Records Department [address] [place], [place] [address] [address] Transfer to [facility] MR#: [id number] Acct: [id number] Name: JERO LEWIS Rep #:[id number] : 1945 77 From: Natalya Wright MD PCP: Dr. Argelia Darby, DO Status:ADM IN Certification of patient admission REQUIRED AT TIME OF ADMISSION. I CERTIFY THAT [facility] SERVICES ARE REQUIRED TO BE GIVEN ON AN IN-PATIENT BASIS BECAUSE OF THE ABOVE NAMED PATIENT'S NEED FOR CORRECTION CARE ON A CONTINUING BASIS FOR THE CONDITION(S) FOR WHICH HE/SHE WAS RECEIVING IN-PATIENT HOSPITAL SERVICES PRIOR TO HIS/HER TRANSFER TO THE [facility]. 07/31/23 1404<Electronically signed by Natalya Wright MD> [...] Anxiety and Depression who presents to the [facility] as a direct admission from [facility] on 07/28/23 for a sodium of [...] to 1 g twice daily by the vice president of talent acquisition and zoloft has been discontinued to help [...] sodium in 2 to [facility]. Please call their office upon [...] to 1 g twice daily by the vice president of talent acquisition and zoloft has been discontinued to help [...] sodium in 2 to 3 days [facility]. Please call their office upon [...] in before D/C Order can be placed): Senior Living Facility 07/31/23 1404 <Electronically signed by Natalya Wright MD> Cosigner Signature (if applicable): CC: Dr. Madhavi Pate MD; Dr. De Snowden MD; Dr. Argelia Darby DO; Dr. Trever Viveros MD; Dr. Natalya Wright MD; Dr. Brooks Carcamo MD ~ [facility] Work Phone: Discharge summary Author Natalya Wright [facility] July 31, 2023 2:05pm Note Date/Time July 31, 2023 2 :05pm [facility] Medical Records Department [facility] [place] [address] Discharge Summary 07/31/231403 MR#: [id number] Acct: [id number] Name: JERO LEWIS Rep #:[id number] : 1945 77 From: Natalya Wright MD PCP: Dr. Argelia Darby DO Status:ADM IN Location: [address] Providers Date of Admission: 07/28/23 Date [...] #6. Hyperlipidemia #7. Anxiety and depression #8. [place] disease carrier status #9. Allergic rhinitis Medications [...] Anxiety and Depression who presents to the [facility] as a direct admission from [facility] on 07/28/23 for a sodium of [...] to 1 g twice daily by the vice president of talent acquisition and zoloft has been discontinued to help [...] sodium in 2 to 3 days [facility]. Please call their office upon [...] % (Auto) 67.4, Lymph % (Auto) 21.0, [place]% (Auto) 8.6, Eos % (Auto) 2.2, Baso [...] to 1 g twice daily by the vice president of talent acquisition and zoloft has been discontinued to help [...] sodium in 2 to 3 days [facility]. Please call [...] in before D/C Order can be placed): [facility] Living Facility Charges/Coding Visit Charges Inpatient E&M: 82853 Disch Hosp >30min 07/31/23 1405 <Electronically signed by Natalya Wright MD> Cosigner Signature (if applicable): CC: Dr. Argelia Darby DO; Dr. Natalya Wright MD~ Signed [facility] Work Phone: Evaluation + Plan note Future Appointments Appointment Date:07/27/2021 02:00:00 PM Scheduled Provider:SHAYNE GONZALEZ Location:[facility] Appointment Type:CV OV Appointment Date:09/13/2021 10:00:00 AM Scheduled Provider:ARGELIA DARBY DO Location:[facility] Appointment Type:PC OV Appointment Date:09/29/2021 11:30:00 AM Scheduled Provider:SHAYNE GONZALEZ Location:[facility] Appointment Type:CV OV [facility] Evaluation + Plan note Future Appointments Appointment Date:08/31/2021 02:00:00 PM Scheduled Provider:SHAYNE GONZALEZ Location:[facility] Appointment Type:CV OV Appointment Date:09/13/2021 10:00:00 AM Scheduled Provider:ARGELIA DARBY DO Location:[facility] Appointment Type:PC OV Appointment Date:09/29/2021 11:30:00 AM Scheduled Provider:SHAYNE GONZALEZ Location:[facility] Appointment Type:CV OV [facility] Evaluation + Plan note Future Appointments Appointment Date:03/01/2022 01:15:00 PM Scheduled Provider:SHAYNE GONZALEZ Location:[facility] Appointment Type:CV OV Appointment Date:04/05/2022 11:00:00 AM Scheduled Provider:ARGELIA DARBY DO Location:[facility] Appointment Type:PC OV Future Scheduled Tests Laboratory* Basic Metabolic Panel 10/06/21 * Thyroid Stimulating Hormone 12/04/21 [facility] Evaluation + Plan note Future Appointments Appointment Date:03/01/2022 01:15:00 PM Scheduled Provider:SHAYNE GONZALEZ Location:[facility] Appointment Type:CV OV Appointment Date:04/05/2022 11:00:00 AM Scheduled Provider:ARGELIA DARBY DO Location:[facility] Appointment Type:PC OV Future Scheduled Tests Laboratory* Basic Metabolic Panel 10/13/21 * Thyroid Stimulating Hormone 12/04/21 [facility] Evaluation + Plan note Future Appointments Appointment Date:03/01/2022 01:15:00 PM Scheduled Provider:SHAYNE GONZALEZ Location:[facility] Appointment Type:CV OV Appointment Date:04/05/2022 11:00:00 AM Scheduled Provider:ARGELIA DARBY DO Location:[facility] Appointment Type:PC OV Future Scheduled Tests Laboratory* Thyroid Stimulating Hormone 12/04/21 [facility] Evaluation + Plan note Future Appointments Appointment Date:12/09/2021 09:30:00 AM Scheduled Provider: Location:[facility] Appointment Type:PT Outpatient Evaluation Appointment Date:03/01/2022 01:15:00 PM Scheduled Provider:SHAYNE GONZALEZ Location:[facility] Appointment Type:CV OV Appointment Date:04/05/2022 11:00:00 AM Scheduled Provider:ARGELIA DARBY DO Location:[facility] Appointment Type:PC OV [facility] Evaluation + Plan note Future Appointments Appointment Date:03/01/2022 01:15:00 PM Scheduled Provider:SHAYNE GONZALEZ Location:[facility] Appointment Type:CV OV Appointment Date:04/05/2022 11:00:00 AM Scheduled Provider:ARGELIA DARBY DO Location:[facility] Appointment Type:PC OV [facility] Evaluation + Plan note Future Appointments Appointment Date:07/11/2022 11:30:00 AM Scheduled Provider:ARGELIA DARBY DO Location:[facility] Appointment Type:PC Wellness Medicare Appointment Date:09/06/2022 01:00:00 PM Scheduled Provider:SHAYNE GONZALEZ Location:[facility] Appointment Type:CV OV Appointment Date:10/10/2022 11:00:00 AM Scheduled Provider:ARGELIA DARBY DO Location:[facility] Appointment Type:PC OV Follow Up Future Scheduled Tests Laboratory* Basic Metabolic Panel 04/19/22 [facility] evaluation + Plan note Future Appointments Appointment Date:07/11/2022 11:30:00 AM Scheduled Provider:ARGELIA DARBY DO Location:[facility] Appointment Type: Wellness Medicare Appointment Date:09/06/2022 01:00:00 PM Scheduled Provider:SHAYNE GONZALEZ Location:[facility] Appointment Type:CV OV Appointment Date:10/10/2022 11:00:00 AM Scheduled Provider:ARGELIA DARBY DO Location:[facility] Appointment Type:PC OV Follow Up [facility] Evaluation + Plan note Future Appointments Appointment Date:09/06/2022 01:00:00 PM Scheduled Provider:SHAYNE GONZALEZ Location:[facility] Appointment Type:CV OV Appointment Date:12/26/2022 11:00:00 AM Scheduled Provider:ARGELIA DARBY DO Location:[facility] Appointment Type:PC OV Follow Up [facility] Evaluation + Plan note Future Appointments Appointment Date:01/29/2023 01:30:00 PM Scheduled Provider:SHAYNE GONZALEZ Location:[facility] Appointment Type:CV OV [facility] Evaluation + Plan note Future Appointments Appointment Date:01/29/2023 01:30:00 PM Scheduled Provider:SHAYNE GONZALEZ Location:[facility] Appointment Type:CV OV Future Scheduled Tests Laboratory* Complete Metabolic Panel 02/26/23 [facility] Evaluation + Plan note Future Appointments Appointment Date:05/01/2023 01:00:00 PM Scheduled Provider:SHAYNE GONZALEZ Location:[facility] Appointment Type:CV OV Appointment Date:07/13/2023 02:00:00 PM Scheduled Provider:ARGELIA DARBY DO Location:[facility] Appointment Type: Wellness Medicare Future Scheduled Tests Laboratory* Complete Metabolic Panel 02/26/23 [facility] Evaluation + Plan note Future Appointments Appointment Date:07/24/2023 10:45:00 AM Scheduled Provider: Location:[facility] Appointment Type:PC Nurse Injection Appointment Date:09/07/2023 11:30:00 AM Scheduled Provider:ARGELIA DARBY DO Location:[facility] Appointment Type:PC OV Appointment Date:11/13/2023 01:00:00 PM Scheduled Provider:SHAYNE GONZALEZ Location:[facility] Appointment Type:CV OV Future Scheduled Tests Laboratory* Complete Metabolic Panel 02/26/23 [facility] Evaluation + Plan note Future Appointments Appointment Date:08/21/2023 10:45:00 AM Scheduled Provider: Location:[facility] Appointment Type:PC Nurse Appointment Date:09/07/2023 11:30:00 AM Scheduled Provider:ARGELIA DARBY DO Location:[facility] Appointment Type:PC OV Appointment Date:11/13/2023 01:00:00 PM Scheduled Provider:SHAYNE GONZALEZ Location:[facility] Appointment Type:CV OV Diagnostic Tests Pending * Urinalysis 07/27/23 Future Scheduled Tests Laboratory* Complete Metabolic Panel 02/26/23 [facility] Evaluation + Plan note Future Appointments Appointment Date:08/21/2023 10:45:00 AM Scheduled Provider: Location:[facility] Appointment Type:PC Nurse Appointment Date:09/07/2023 11:30:00 AM Scheduled Provider:ARGELIA DARBY DO Location:[facility] Appointment Type:PC OV Appointment Date:11/13/2023 01:00:00 PM Scheduled Provider:SHAYNE GONZALEZ Location:[facility] Appointment Type:CV OV Future Scheduled Tests Laboratory* Complete Metabolic Panel 02/26/23 [facility] Evaluation + Plan note Future Appointments Appointment Date:09/07/2023 11:30:00 AM Scheduled Provider:ARGELIA DARBY DO Location:[facility] Appointment Type:PC OV Appointment Date:09/25/2023 11:30:00 AM Scheduled Provider: Location:[facility] Appointment Type:PC Nurse Appointment Date:11/13/2023 01:00:00 PM Scheduled Provider:SHAYNE GONZALEZ Location:[facility] Appointment Type:CV OV Future Scheduled Tests Laboratory* Complete Metabolic Panel 08/22/23 [facility] Evaluation + Plan note Future Appointments Appointment Date:11/13/2023 01:00:00 PM Scheduled Provider:SHAYNE GONZALEZ Location:[facility] Appointment Type:CV OV [facility] Evaluation + Plan note Future Appointments Appointment Date:12/19/2023 02:15:00 PM Scheduled Provider: Location:[facility] Appointment Type:PC Nurse Injection Appointment Date:01/24/2024 02:30:00 PM Scheduled Provider:ARGELIA DARBY DO Location:[facility] Appointment Type:PC OV Future Scheduled Tests Laboratory* Basic Metabolic Panel 12/05/23 [facility] Evaluation + Plan note Future Appointments Appointment Date:12/19/2023 02:15:00 PM Scheduled Provider: Location:[facility] Appointment Type:PC Nurse Injection Appointment Date:01/24/2024 02:30:00 PM Scheduled Provider:ARGELIA DARBY DO Location:[facility] Appointment Type:PC OV [facility] Evaluation + Plan note Future Appointments Appointment Date:03/13/2024 03:00:00 PM Scheduled Provider:ARGELIA DARBY DO Location:[facility] Appointment Type:PC OV Future Scheduled Tests Laboratory* Basic Metabolic Panel 03/13/24 [facility] Evaluation + Plan note Future Appointments Appointment Date:03/13/2024 03:00:00 PM Scheduled Provider:ARGELIA DARBY DO Location:[facility] Appointment Type:PC OV Diagnostic Tests Pending * Osmolality Urine 03/03/24 Future Scheduled Tests Laboratory* Basic Metabolic Panel 03/13/24 [facility] Evaluation + Plan note Future Appointments Appointment Date:04/24/2024 02:30:00 PM Scheduled Provider:ARGELIA DARBY DO Location:[facility] Appointment Type:PC OV Future Scheduled Tests Laboratory* Basic Metabolic Panel 03/13/24 [facility] evaluation + Plan note Future Appointments Appointment Date:06/10/2024 01:00:00 PM Scheduled Provider:ARGELIA DARBY DO Location:[facility] Appointment Type:PC OV Future Scheduled Tests Laboratory* Basic Metabolic Panel 03/13/24 [facility] evaluation + Plan note Future Appointments Appointment Date:08/01/2024 12:30:00 PM Scheduled Provider:ARGELIA DARBY DO Location:[facility] Appointment Type:PC Wellness Medicare Future Scheduled Tests Laboratory* Basic Metabolic Panel 03/13/24 [facility] evaluation + Plan note Future Appointments Appointment Date:10/03/2024 01:30:00 PM Scheduled Provider:ARGELIA DARBY DO Location:[facility] Appointment Type:PC OV Future Scheduled Tests Laboratory* Basic Metabolic Panel 03/13/24 [facility] evaluation + Plan note Future Appointments Appointment Date:12/18/2024 02:30:00 PM Scheduled Provider:ARGELIA DARBY DO Location:[facility] Appointment Type:PC OV Future Scheduled Tests Laboratory* Basic Metabolic Panel 03/13/24 [facility] evaluation note* Diagnosis Onset Date Resolution Status COVID-19 acute Hyponatremia acute [facility] Work Phone: evaluation note* Diagnosis Onset Date Resolution Status COVID-19 acute Hyponatremia acute Anxiety acute COVID-19 acute Debility acute Depression acute Hyperlipidemia acute Hypomagnesemia acute Hyponatremia acute Osteoarthritis acute HTN (hypertension) chronic [facility] Work Phone: evaluation note* Diagnosis Onset Date Resolution Status COVID-19 resolved Hyponatremia resolved HTN (hypertension) chronic Hyperlipidemia chronic Anxiety resolved COVID-19 resolved Hypomagnesemia resolved Hyponatremia resolved Vertigo acute CAD (coronary artery disease) chronic HTN (hypertension) chronic Hyperlipidemia chronic [facility] Work Phone: Evaluation note* Diagnosis Urinary retention- Primary Unspecified retention of urine [facility] Urinary retention- Primary Unspecified retention of urine [facility] this [facility] Author Sandro Jackman [facility] Note Date/Time December 06, 2024 7:0 9pm [facility] Medical Records Department [address] [place] [address] H&P Exam - Hospitalist 12/06/24 1852 MR#: [id number] Acct: [id number] Name: JERO LEWIS Rep #:[id number] : 1945 79 From: Sandro Jackman MD PCP: Dr. Argelia Darby, DO Status:ADM IN Location: [facility] [id number] HPI - General General Date of [...] fracture, Cervical spine fracture, Or intracranial bleed [facility] Medical History Allergic rhinitis Anxiety and depression [...] 1 tab PO BID 3 Unknown History ce-izpo-bdik-joseph-boron chew tablet (Caltrate 600-D Plus Minerals) cyanocobalamin [...] 85.3 H, Lymph % (Auto) 8.6 L, [place] % (Auto) 4.0, Eos % (Auto) 1.3, [...] acute intracranial abnormality. Senescent changes. Reading Location: [facility] Cervical Spine CT 12/06/24 16:41 IMPRESSION: No evidence of acute cervical spine fracture. Demineralization does limit sensitivity One or more dose reduction techniques were used (e.g., Automated exposure control, adjustment of the mA and/or kV according to patient size, use of iterative reconstruction technique). Reading Location: [facility] Facial/Sinus 12/06/24 16:41 IMPRESSION: No evidence of acute facial fracture. Senescent changes. One or more dose reduction techniques were used (e.g., Automated exposure control, adjustment of the mA and/or kV according to patient size, use of iterative reconstruction technique). Reading Location: [facility] Chest X-Ray 12/06/24 17:10 IMPRESSION: No acute findings. Senescent changes. Mild cardiac enlargement. Reading Location: [facility] Knee X-Ray 12/06/24 17:10 IMPRESSION: Acute patellar fracture on background demineralization. Reading Location: [facility] Echocardiogram 09/26/2023: Interpretation Summary The left ventricular [...] 06/25/2024: Interpretation: [place] a [place] 79015 beats recorded over the 24 hour period. [...] test. 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 Argelia Darby, DO~ Signed [facility] Work Phone: Hospital course Narrative No data available for this section [facility] Discharge instructions No data available for this section [facility] Discharge instructions Additional Instructions Discharge home alone 08/14/2023, [employer] PT, [facility] Work Phone: Progress note No data available for this section [facility] Reason for referral (narrative)No reason for referral information [facility] Work Phone: Chief Complaint and Reason for [...] COVID HYPONATREMIA, COVID HYPONATREMIA, COVID HYPONATREMIA/COVID HTN ([facility] / SELF) Atherosclerotic heart disease of [place] coronary a Amb Documentation Reason for Visit [...] Date/ Time Name of Medical Power of Diagnostic Assistant maxim lewis July 27, 2023 11:57pm Advance Directives Yes July 26, 2015 7:47am Living Will Yes July 27 11:57pm Power of Diagnostic Assistant Yes July 27, 2023 11:57pm Advance Directive Response Recorded Date/ Time Name of Medical Power of Diagnostic Assistant Maxim Lewis, son August 01, 2023 4:35pm Advance Directives Yes July 26, 2015 7:47am Living Will Yes August 01 4:35pm Power of Diagnostic Assistant Yes August 01, 2023 4:35pm Name of Medical Power of Diagnostic Assistant maxim lewis July 27, 2023 11:57pm Advance Directive Response Recorded Date/ Time Advance Directives Yes July 26, 2015 8:47am Advance Directive Response Recorded Date/ Time Living Will Yes December 06, 2024 8:05pm Do you have a Healthcare Power of Diagnostic Assistant? Yes December 06, 2024 8:05pm Name of Medical Power of Diagnostic Assistant Maxim Jeffries December 06, 2024 8:05pm Advance [...] DO Primary Care Provider Active Jesus Woodard CARE MGR, CARE MGR-C Attending Provider Active Team Status: Inactive Member Role Status Dates Dr. Argelia Darby DO Primary Care Provider Active Dr. Kristy Andrew MD Attending Provider, Referring Pr ovider Active Team Status: Active Member Role Status Dates Dr. Argelia Darby DO Primary Care Provider Active Team [...] e Start: December 07, 2024 Dr. Michelle Dang [...] December 09, 2024 Dr. Montse Cabrera MD Attending Provider Active Start: December 09, [...] Provider Active St art: December 11, 2024 Valve Tester Relationship Specialty Start Date End Date Artur Georges MD [address] [place] [address] Surgeon Urology 01/19/25 Valve Tester Relationship Specialty Start Date End Date Artur Georges MD [address] [place] [phone] Surgeon Urology 01/19/25 Valve Tester Relationship Specialty Start Date End Date Artur Georges MD [address] [facility] [address] [place] [phone] Surgeon Urology 01/19/25 Valve Tester Relationship Specialty Start Date End Date Artur Georges MD [address] [place] [phone] Surgeon Urology 01/19/25 Care Team (unrecognized sect ion and content) Care Team Personnel Name: SHAYNE GONZALEZ APRN-POTATO SEED CUTTER Position: P4 Advanced Practice Nurse Med Service: Active Provider Member Role: Chief Internal Auditor Address: Address: [address] [place] [address] Name: ARGELIA DARBY DO Position: P4 Physician - Primary Care Med Service: Active Provider Member Role: Primary Care Physician Address: Address: [address] [place] [address] Name: KRISTIN REYES MD Position: Physician Med Service: Orthopedic Member Role: Orthopaedist Address: Address: [address] [place] [address] Name: JONEL MALIN Member Role: Payroll Accounting Manager Care Team Related Persons Name: MAXIM LEWIS Name: REJI LEWIS Care Team Personnel Name: SHAYNE GONZALEZ APRN-POTATO SEED CUTTER Position: P4 Advanced Practice Nurse Med Service: Active Provider Member Role: Chief Internal Auditor Address: Address: [address] [place] [address]- Name: ARGELIA DARBY DO Position: P4 Physician - Primary Care Med Service: Active Provider Member Role: Primary Care Physician Address: Address: [address] [place] [address] Name: KRISTIN REYES MD Position: Physician Med Service: Orthopedic Member Role: Orthopaedist Address: Address: [address] [place] [address] Name: JONEL MALIN Member Role: Payroll Accounting Manager Care Team Related Persons Name: MAXIM LEWIS Name: REJI LEWIS Care Team Personnel Name: SHAYNE GONZALEZ SPINNING FRAME TENDER-POTATO SEED CUTTER Position: P4 Advanced Practice Nurse Member Role: Chief Internal Auditor Address: Address: [address] [facility] [address] [facility] [place] [address]- [place] Name: ARGELIA DARBY DO Position: P4 Physician - Primary Care Member Role: Primary Care Physician Address: Address: [address] [facility] [place] [address]- [place] Name: KRISTIN REYES MD Position: Physician Member Role: Orthopaedist Address: Address: [address] [facility] [place] [address]- Name: JONEL MALIN Member Role: Payroll Accounting Manager Care Team Related Persons Name: MAXIM LEWIS Name: REJI LEWIS INFORMATION SOURCE (unrecogn ized section and content) DATE CREATED AUTHOR 05/24/2024 [facility] ([place]) DATE CREATED AUTHOR AUTHOR'S ORGANIZ ATION 11/09/2024 [facility] DATE CREATED AUTHOR AUTHOR'S ORGANIZ ATION 03/02/2025 [facility] DATE CREATED AUTHOR AUTHOR'S ORGANIZ ATION 03/06/2025 [facility] Goals (unrecognized section and content) Goals [...] BE BASED ON THE PRIMARY CLINICAL RECORDS. [facility]. provides no warranty or guarantee of the accuracy or completeness of information in this document.
[2025-04-09 09:01] LABS: Hematocrit 35.0 % (37-47); Hemoglobin 11.8 g/dL (12.0-15.0); Mean Corp Hgb Conc 33.7 g/dL (32-36); Mean Corpuscular Volume 87.5 fL (81-99); Mean Platelet Vol. 9.5 fl (6.2-12.0); Platelet Count 299 K/mm3 (150-450); RBC Distribution Width CV 13.9 % (11.6-14.6); RBC Distribution Width SD 44.7 fl (35.1-43.9); Red Blood Count 4.00 M/mm3 (4.2-5.4); White Blood Count 5.3 K/mm3 (4.4-11.0)
[2025-04-09 09:38] LABS: Anion Gap 12 (5-15); BUN 12 mg/dL (4-19); BUN/Creat Ratio 19.7 RATIO (10-20); Calcium,Total 9.5 mg/dL (7.6-11.0); Carbon Dioxide 24.4 mmol/L (21.0-32.0); Chloride 101 mmol/L (98-108); Glucose 87 mg/dL (70-99); Potassium 3.6 mmol/L (3.3-5.1)
== END ==
LOC: OLS.ACH 05:00
PROVIDERS: PCP Family Medicine; Visit Provider Internal Medicine
DX: R33.9 Retention of urine, unspecified (principal)
CPT/HCPCS: 36415; 80048; 85027

== ENCOUNTER 2025-05-03 17:15 | Emergency (ER) | payer MEDICARE, BC, SELFPAY ==
[2025-05-03 17:17] VITALS: BP 184/82; PULSE 78; RESP 17; TEMP 36.4; O2SAT 97; BMI 28.3
[2025-05-03 17:22] VITALS: O2SAT 99
--- NOTE | 2025-05-03 17:45 | CT_ITS ---
PROCEDURE: CT CHEST, ABD, PELVIS WO CONT 05/03/2025 REASON FOR EXAM: FALL TECHNIQUE: Chest, abdomen and pelvis CT without intravenous contrast. Coronal and Sagittal reconstruction series were provided. One or more dose reduction techniques were used (e.g., Automated exposure control, adjustment of the mA and/or kV according to patient size, use of iterative reconstruction technique. RADIATION DOSE SUMMARY: DLP: 2900 mGycm COMPARISON: None. FINDINGS: CT CHEST: Hardware: None. Lymph nodes: Visualization is limited without the use of IV contrast. No axillary, mediastinal or hilar lymphadenopathy. Heart and Vasculature: Mild cardiomegaly without pericardial effusion. The great vessels are normal in caliber. Severe coronary artery and moderate thoracic aortic calcifications. Lungs and Airways: The central airways are grossly patent. Bibasilar atelectasis/scarring. No suspicious pulmonary mass. No pleural effusion or pneumothorax. Bones: Thoracic spondylosis and diffuse osseous demineralization. CT ABDOMEN / PELVIS: Noncontrast technique limits evaluation of the abdominal and pelvic viscera. Liver: The unopacified liver is normal in size. No biliary ductal dilation. Gallbladder: No radiopaque stones within the gallbladder. Spleen: Normal in size. Pancreas: The unopacified pancreas is mildly atrophic. Adrenals: No adrenal mass. Kidneys: No hydronephrosis or nephrolithiasis. Bladder: Punctate intraluminal gas within the urinary bladder. Reproductive Organs: Gill catheter inflated within the vaginal canal. Partially calcified uterine fibroid. Bowel: The bowel loops are nondilated. No ascites or pneumoperitoneum. Normal appendix. Lymph nodes: Visualization is limited without the use of IV contrast. No large suspicious lymphadenopathy. Vasculature: Mild calcific plaque of the aortoiliac vessels. Bones: Marked, diffuse bone demineralization, which limits evaluation for fracture. Lumbar spondylosis. CT/CT Chest, Abd, Pelvis WO Cont IMPRESSION: CT chest: No acute thoracic findings. CT abdomen/pelvis: No acute abdominopelvic finding. Gill catheter inflated wit hin the vaginal canal. Dr. Diaz discussed these findings with Dr. Herrera via telephone at 7:05 p.m. on 05/03/2025. Reading Location: [id number]
--- NOTE | 2025-05-03 17:45 | CT_ITS ---
EXAM: BRAIN/HEAD WITHOUT CONTRAST CLINICAL HISTORY: 79 y/o F with FALL. COMPARISON: CT head 12/06/2024. TECHNIQUE: Routine CT imaging of the head without IV contrast. Additional multiplanar reformats were obtained. Dose reduction techniques were used including intermediate exposure control (AEC),iterative reconstruction technique, and/or mA and/or KV dose adjustments based on patient's size. FINDINGS: The ventricles, sulci and cisterns are mildly prominent, suggestive of brain parenchymal volume loss. There is no evidence of acute intracranial hemorrhage or herniation. There is no midline shift, mass effect, or extra-axial collection. Moderate patchy supratentorial white matter hypodensities. The dooley and white matter interfaces are otherwise maintained. Prior ocular lens replacements. Mild mucosal thickening of the left maxillary and bilateral sphenoid sinuses. The visualized paranasal sinuses and mastoids are otherwise unremarkable. No acute calvarial fracture or scalp hematoma. CT/Brain/Head without Contrast IMPRESSION: No acute intracranial finding. Chronic findings as described. Reading Location: [id number]
--- NOTE | 2025-05-03 17:45 | CT_ITS ---
PROCEDURE: SPINE CERVICAL WITHOUT CONTRAS 05/03/2025 REASON FOR EXAM: FALL TECHNIQUE: Cervical spine CT without contrast. Coronal and Sagittal reconstruction series were provided. One or more dose reduction techniques were used (e.g., Automated exposure control, adjustment of the mA and/or kV according to patient size, use of iterative reconstruction technique. RADIATION DOSE SUMMARY: DLP: 300 mGycm COMPARISON: CT C-spine 12/06/2024. FINDINGS: The patient is rotated. Alignment: No traumatic listhesis. Grade 1 anterolisthesis of C3-4. Vertebrae: Mild multilevel chronic vertebral body compression deformities. No obvious acute fracture, however visualization is limited by diffuse bone demineralization. Mild multilevel central spinal stenosis. Soft Tissues: No prevertebral hematoma. CT/Spine Cervical without Contras IMPRESSION: NO ACUTE CERVICAL FRACTURE. DEGENERATIVE CHANGES. Reading Location: [id number]
--- NOTE | 2025-05-03 17:47 | EDS_ITS ---
HPI History of Present Illness Chief Complaint: Fall Detail of Chief Complaint: Fall Informant: patient Narrative Narrative: Patient presents to the emergency department via EMS from extended-care facility. Patient apparently fell out of her wheelchair and hit her head. She complains of head and neck pain as well as back pain. She complains of her left hand hurting. She is not anticoagulated. It is unclear how she fell out of the wheelchair as she normally does not ambulate and needs assistance to ambulate. [facility] Medical History (Updated 05/03/25 @ 19:[address] Adolph Herrera, DO) MRSA (methicillin resistant staph aureus) culture positive Closed transverse fracture of left patella Preoperative cardiovascular examination Elevated troponin Unable to ambulate Closed fracture of left patella Laceration of right hand Laceration of lip Contusion of face Syncope NSVT (nonsustained ventricular tachycardia) Osteoarthritis Depression Debility Hyponatremia Vertigo PVCs (premature ventricular contractions) SOB (shortness of breath) Sleep apnea Vitamin D deficiency RLS (restless legs syndrome) Pulmonary hypertension Myalgia MVP (mitral valve prolapse) Dizziness CAD (coronary artery disease) Vitamin B12 deficiency Fatigue Kimberlee disease History of endometrial biopsy COVID-19 Chronic hyponatremia Anxiety and depression Hypothyroidism Allergic rhinitis Hyperlipidemia HTN (hypertension) Home Medications ?Medication ?Instructions ?Recorded ?Last Taken ?Type sertraline 100 mg tablet 100 mg PO QDAY 03/11/2411/22 History acetaminophen 500 mg tablet 1,000 mg (2 x 500 mg) PO Q 8 #0 tabs 01/12/25 Unknown Rx carvedilol 6.25 mg tablet 6.25 mg PO BIDCM #0 tabs Unknown Rx clonazepam 1 mg tablet 1 mg PO QHS 3 days #3 tabs 0 01/12/25 Unknown Rx cyclobenzaprine 10 mg tablet 10 mg PO QHS #0 tabs 12/24 10/18 Unknown Rx cyclobenzaprine 10 mg tablet 10 mg PO TID PRN Muscle S pasm #0 01/12/25 Unknown Rx tabs ipratropium bromide 42 mcg (0.06 1 spray NASAL BID #0 mL 01/12/25 Unknown Rx %) nasal spray levothyroxine 112 mcg tablet 112 mcg PO DAILY@0600 #0 tabs 01/12/25 Unknown Rx losartan 100 mg tablet 100 mg PO DAILY #0 tabs 12/24 10/18 Unknown Rx magnesium citrate 300 ml PO X1 PRN Constipatio n #0 mL 01/12/25 Unknown Rx menthol 0.44 %-zinc oxide 20.6 % 1 applic topical 0600 ,1800 #0 grams 01/12/25 Unknown Rx topical ointment (Calmoseptine) nystatin 100,000 unit/gram topical 1 applic topical BI D #0 grams 01/12/25 Unknown Rx powder (Nyamyc) oxycodone 5 mg tablet 5 mg PO Q4H PRN Pain Score 4 -10 3 01/12/25 Unknown Rx days #18 tabs sennosides 8.6 mg-docusate sodium 2 tab PO BID #0 tabs 01/12/25 Unknown Rx 50 mg tablet (Stimulant Laxative Plus) tamsulosin 0.4 mg capsule 0.4 mg PO DAILY@1730 #0 caps 01/12/25 Unknown Rx Allergy/AdvReac Type Severity Reaction Status Date / Time propoxyphene HCl (From Allergy Nausea Verified 05/03/25 17:20 [place]) atorvastatin AdvReac Intermediate myalgia Verified 05/03/25 17:20 codeine AdvReac Intermediate Nausea Verified 05/03/25 17:20 simvastatin AdvReac Intermediate Myalgia Verified 05/03/25 17:20 Family History Mother CVA (cerebral vascular accident) Father [place] disease Son Kimberlee disease Brother Heart disease Hypertension Daughter Lupus Arthritis Sister Melanoma Surgical History Hx of cataract extraction (~2020) Hx of cardiac catheterization (~09/09/20) History of tonsillectomy (~1958) Hx of tubal ligation (~1982) H/O cone biopsy of cervix H/O dilation and curettage Hx of myringotomy S/P thyroid biopsy Social History household members: none Smoking Status: Never smoker alcohol intake: never substance use type: does not use caffeine: Yes Type: coffee Number of servings: 2 ROS ROS ED Review of Systems ROS Unobtainable: other Constitutional Constitutional ED: Reports lethargy; Denies chills, fever(s), sweats or weight loss Eyes Eyes: Denies blurry vision, change in vision or diplopia ENT ENT ED: Denies rhinorrhea or sore throat Cardiovascular Cardiovascular: Denies chest pain, orthopnea or racing heartbeat Respiratory/Chest Respiratory/Chest: Denies cough, dyspnea, dyspnea on exertion, orthopnea or sputum Gastrointestinal Gastrointestinal: Reports abdominal pain; Denies diarrhea, nausea or vomiting Genitourinary Genitourinary ED: Denies dysuria, hematuria or urinary frequency Musculoskeletal Musculoskeletal: Reports back pain, neck pain and other Details: Left hand pain ; Denies arthralgias or myalgias Integumentary Denies abscess, Abrasions or rash Neurologic Neurologic: Reports headache(s); Denies weakness Psychiatric Psychiatric: Denies anxiety, depression or suicidal thoughts Endocrine Endocrinology: Denies polydipsia, polyphagia or polyuria Hematologic/Lymphatic Hematologic/Lymphatic: Denies easy bleeding, easy bruising or lymphadenopathy Allergic/Immunologic Allergic/Immunologic ED: Denies mouth swelling, tongue swelling or urticaria EXAM Physical Exam Const Vital Signs: 05/03/25 17:17 05/03/25 17:22 Temperature 97.6 F L Temperature Source Axillary Pulse Rate 78 Respiratory Rate 17 Respiratory Effort Normal Respiratory Depth Normal Respiratory Pattern Normal Blood Pressure 184/82 H Blood Pressure Mean 116 Pulse Ox 97 99 Oxygen Delivery Method Room Air Room Air Positive well nourished and well developed General Appearance ED: well developed and NAD HEENT Reports TM's clear and moist mucous membranes normocephalic and atraumatic; Negative for trauma or tenderness Tympanic Membrane ED: Yes TM's clear Eyes PERRL and EOMs intact bilaterally General Eye ED: Negative for pale conjunctiva or scleral icterus Neck no lymphadenopathy, supple and no JVD Neck Narrative: C-collar in place. She has some mild diffuse tenderness on exam General: tenderness Chest Wall inspection of chest normal and palpation of chest normal Chest: Negative for tenderness Resp normal respiratory effort and clear to auscultation bilaterally Effort and Inspection: Negative for respiratory distress or pain with movement Auscultation: Negative for rhonchi, wheezes or diminished lung sounds Cardio regular rate, regular rhythm, S1 normal heart sound, S2 normal heart sound and no murmurs Peripheral Pulses: pulses 2+ throughout GI normal to inspection, nondistended, normoactive bowel sounds, soft to palpation, non-tender, non-distended and no masses Back/Spine no CVA tenderness Back/Spine Narrative: Tenderness palpation over lumbar spine. No bony step-offs or depressions. Extremity Extremity Narrative: Tenderness to the dorsum of the left hand. No obvious deformity. No ecchymosis or bruising. Tenderness palpation over bilateral hips. There is no shortening or external rotation noted. General Extremety ED: Negative for edema General Extremity: Negative for edema Neuro oriented x3, CN's II-XII intact bilaterally, no sensory deficits noted and gait normal Sensorium / Orientation: awake, alert, oriented to person, oriented to place and oriented to time Motor Exam: strength 5/5 throughout and strength abnormal Psych mental status grossly normal Skin no rashes or lesions noted and no wounds MDM MDM MDM Narrative Medical decision making narrative: Patient presents to the emergency department after a fall and complaining of pain to her back as well as hips and left hand. She complained of head and neck pain. Presented with c-collar in place. She is normally not ambulatory and uses a wheelchair. Patient had CT scan of the brain without contrast that was unremarkable. CT C-spine showed no fractures. We obtained a CT of the chest abdomen pelvis which did not show any acute injuries. Radiologist did call me did let me know that her Gill catheter was inflated within her vagina and not in the urethra. Catheter was replaced by nursing staff. X-rays of the left hand obtained showed no fractures. Discussed results with patient. I feel she can be discharged back to the [facility]. Radiography Diagnostic Testing: Clinical Impression(s) from Imaging Studies Brain CT 05/03/25 17:45 IMPRESSION: No acute intracranial finding. Chronic findings as described. Reading Location: [id number] Cervical Spine CT 05/03/25 17:45 IMPRESSION: NO ACUTE CERVICAL FRACTURE. DEGENERATIVE CHANGES. Reading Location: [id number] Chest/Abdomen/Pelvis CT 05/03/25 17:45 IMPRESSION: CT chest: No acute thoracic findings. CT abdomen/pelvis: No acute abdominopelvic finding. Gill catheter inflated within the vaginal canal. Dr. Diaz discussed these findings with Dr. Herrera via telephone at 7:05 p.m. on 05/03/2025. Reading Location: [facility] Hand X-Ray 05/03/25 19:00 IMPRESSION: DEGENERATIVE OSTEOARTHROSIS. NO ACUTE FINDINGS. Reading Location: [facility] Three-view x-rays of the left hand obtained interpreted by myself as no evidence of fracture or dislocation. Radiology in agreement. Discharge Plan Triage Chief Complaint: Fall ED Provider: Adolph Herrera Dx/Rx/DC Orders Clinical Impression: Fall, Closed head injury, Back strain, Contusion of hand, left Instructions: ED Back Sprain/Strain, ED Hand Contusion, ED Mechanical Fall, ED Head Injury (Adult) Prescriptions: No Action sertraline 100 mg tablet 100 mg PO QDAY acetaminophen 500 mg Tablet 1,000 mg PO Q8 Qty: 0 0RF cyclobenzaprine 10 mg Tablet 10 mg PO QHS Qty: 0 0RF cyclobenzaprine 10 mg Tablet 10 mg PO TID PRN (Reason: Muscle Spasm) Qty: 0 0RF carvedilol 6.25 mg Tablet 6.25 mg PO BIDCM Qty: 0 0RF clonazepam 1 mg Tablet 1 mg PO QHS 3 Days Qty: 3 0RF magnesium citrate Solution 300 ml PO X1 PRN (Reason: Constipation) Qty: 0 0RF ipratropium bromide 42 mcg (0.06 %) [place],Non-Aerosol 1 spray NASAL BID Qty: 0 0RF losartan 100 mg Tablet 100 mg PO DAILY Qty: 0 0RF levothyroxine 112 mcg Tablet 112 mcg PO DAILY@0600 Qty: 0 0RF menthol-zinc oxide [Calmoseptine] 0.44-20.6 % Ointment 1 applic topical 0600,1800 Qty: 0 0RF Protocol: *Topical Application Instructions APPLICATION INSTRUCTIONS: bilat buttocks sennosides-docusate sodium [Stimulant Laxative Plus] 8.6-50 mg Tablet 2 tab PO BID Qty: 0 0RF nystatin [Nyamyc] 100,000 unit/gram Powder 1 applic topical BID Qty: 0 0RF Protocol: *Topical Application Instructions APPLICATION INSTRUCTIONS: groin/under breasts oxycodone 5 mg Tablet 5 mg PO Q4H PRN (Reason: Pain Score 4-10) 3 Days Qty: 18 0RF tamsulosin 0.4 mg Capsule 0.4 mg PO DAILY@1730 Qty: 0 0RF Primary Care Provider: Maria Del Carmen Darby Referrals: Maria Del Carmen Darby DO [Primary Care Provider] - 3-5 Days Print Language: Slovenian Disposition Disposition: Home, Self Care
--- OUTSIDE RECORDS SUMMARY | 2025-05-03 18:19 | XMS RPT_ITS | CCD ---
Author Organization [facility] Care Team Providers [employer] Consultant Name Role Phone ARGELIA LEVY DO Primary Care Physician ([facility] )-2015 Dr. Madhavi Pate Admit Provider Dr. Madhavi Pate Attending Provider Dr. Madhavi Pate Other Provider 1([facility])[phone] Argelia Levy Primary Care Provider Dr. De Blount Other Provider 1([facility])[phone] Dr. Trever Viveros Attending Provider Dr. Trever Viveros Other Provider 1([facility])[phone] Dr. Brooks Carcamo Other Provider 1([facility])[phone] Natalya Wright Attending Provider 1([facility])[phone] Natalya Wright Other Provider Dr. Argelia Levy Referring Provider 1([facility])[phone] Dr. Kristy Andrew Attending Provider 1([facility])[phone] Fredis CAT BREEDER, CAT BREEDERJeremiahC Jesus Attending Provider ARGELIA LEVY DO Primary Care Physician ([facility])[phone] ARGELIA LEVY DO Primary Care Unavailable ARGELIA LEVY DO Attending Unavailable ARGELIA LEVY DO Primary Care Unavailable ARGELIA LEVY DO Attending Unavailable ARGELIA LEVY DO Primary Care Unavailable ARGELIA LEVY DO Attending Unavailable ARGELIA LEVY DO Primary Care Unavailable YAZMIN ANDERS DO Attending Unavailable ARGELIA LEVY DO Primary Care Unavailable ARGELIA LEVY DO Attending Unavailable WILNER DO, ARGELIA Primary Care Unavailable WILNER DO, ARGELIA Attending Unavailable WILNER DO, ARGELIA Primary Care Unavailable SP BURRELL, DR CATIE Warren Attending Unav ailable WILNER DO, ARGELIA Primary Care Unavailable WILNER DO, ARGELIA Attending Unavailable WILNER DO, ARGELIA Primary Care Unavailable WILNER DO, ARGELIA Attending Unavailable WILNER DO, ARGELIA Primary Care Unavailable CRYSTAL DUNAWAY CNP Attending Unavail able WILNER DO, ARGELIA Primary Care Unavailable WILNER DO, ARGELIA Attending Unavailable WILNER DO, ARGELIA Primary Care Unavailable WILNER DO, ARGELIA Attending Unavailable WILNER DO, ARGELIA Primary Care Unavailable WILNER DO, ARGELIA Attending Unavailable WILNER DO, ARGELIA Primary Care Unavailable WILNER DO, ARGELIA Attending Unavailable WILNER DO, ARGELIA Primary Care Unavailable JESUS REYES Attending Unavaila ble WILNER DO, ARGELIA Primary [...] Unavailable WILNER DO, ARGELIA Attending Unavailable Wilner ESTEVEZ, Dr. Joyce Primary Care Provider [phone] Dr. Argelia Levy DO Referring Provider Dr. Kristy Andrew MD Attending Provider Dr. Kristy Andrew MD Referring Provider Dr. Orville Cortez MD Emergency Provider [phone] Gasper BURRELL, Dr. Jo Admit Provider Unavailab [...] Rio BURRELL, Dr. Madhavi Jiménez Attending Provider Dr. Donovan Cano DO Other Provider Aguila BURRELL, Artur Vasquez Unavailable ROSITA ORDONEZ Attending Unavailable ARTUR GEORGES Attending Mary Ellen versus shifting breast attenuation artifact. No evidence [...] 06/25/2024: Interpretation: There were a total of 62228 beats recorded over the 24 hour period. [...] test. 7 DAY EVENT MONITOR 12/20/22-12/26/22: IMPRESSION front desk monitor significant for normal sinus rhythm background and [...] be full code for the procedure 12/06/24 0693 <Electronically signed by Sandro Jackman MD> Cosigner Signature (if applicable): CC: Dr. Sandro Jackman MD; Dr. Argelia Levy, ~ Signed [facility] Work Phone: [phone]) 716-125303-15-2025 History and physical note [facility] Medical Records Department [address] [place] [address] H&P Exam - Hospitalist 12/06/24 1852 MR#: [id number] Acct: [id number] Name: JERO LAYNE Rep #:[id number] : 1945 79 From: Sandro Jackman MD PCP: Dr. Argelia Levy, Status:ADM IN Location: [place] [id number]- 1 HPI - General General Date of Admission: 12/06/24 Date of Service: 12/06/24 Chief Complaint: Acute fall HPI Narrative JERO LAYNE, is a 79 F with past medical [...] fracture, Cervical spine fracture, Or intracranial bleed [facility] Medical History Allergic rhinitis Anxiety and depression [...] 1 tab PO BID 3 Unknown History bl-whlh-hfbw-joseph-boron chew tablet (Caltrate 600-D Plus Minerals) cyanocobalamin [...] (cerebral vascular accident) Father Kimberlee disease Son [place] disease Brother Heart disease Hypertension Daughter Lupus [...] 85.3 H, Lymph % (Auto) 8.6 L, [place] % (Auto) 4.0, Eos % (Auto) 1.3, [...] acute intracranial abnormality. Senescent changes. Reading Location: [facility] Cervical Spine CT 12/06/24 16:41 IMPRESSION: No evidence of acute cervical spine fracture. Demineralization does limit sensitivity One or more dose reduction techniques were used (e.g., Automated exposure control, adjustment of the mA and/or kV according to patient size, use of iterative reconstruction technique). Reading Location: [facility] Facial/Sinus 12/06/24 16:41 IMPRESSION: No evidence of acute facial fracture. Senescent changes. One or more dose reduction techniques were used (e.g., Automated exposure control, adjustment of the mA and/or kV according to patient size, use of iterative reconstruction technique). Reading Location: [facility] Chest X-Ray 12/06/24 17:10 IMPRESSION: No acute findings. Senescent changes. Mild cardiac enlargement. Reading Location: [facility] Knee X-Ray 12/06/24 17:10 IMPRESSION: Acute patellar fracture on background demineralization. Reading Location: [facility] Echocardiogram 09/26/2023: Interpretation Summary The left [...] 06/25/2024: Interpretation: There were a total of 98828 beats recorded over the 24 hour period. [...] test. 7 DAY EVENT MONITOR 12/20/22-12/26/22: IMPRESSION front desk monitor significant for normal sinus rhythm background and [...] be full code for the procedure 12/06/24 1903 Cosigner Signature (if applicable): CC: Dr. Sandro Jackman MD; Dr. Argelia Levy, DO~ Signed [facility]03-15-2025 Radiology Diagnostic study note [facility] Imaging Services [address] [place], [place] [id number] Chest 1 View (Portable) MR#: [id number] Acct: [id number] Name: JERO LAYNE Rep #: [id number] : 1945 F 79 From: Jean Claude Azevedo MD PCP: Dr. Argelia Levy DO Status: ADM IN Study:Chest 1 View (Portable) Date of Exam: 12/06/24 Exam# [id number] Ordering Dr: Rita rBice PROCEDURE: CHEST 1 VIEW (PORTABLE) 12/06/2024 REASON FOR EXAM: FALL TECHNIQUE: Frontal view of the chest. COMPARISON: None. FINDINGS: Mildly enlarged heart. Bronchial thickening. No localizing infiltrate, effusion or pneumothorax. Degenerative changes seen about the right shoulder. Tortuous thoracic aorta. RAD/Chest 1 View (Portable) IMPRESSION: No acute findings. Senescent changes. Mild cardiac enlargement. Reading Location: [facility] CC: Dr. Argelia Levy DO; MEKHI Raza ~ Recovery Manager: Signed [facility]03-15-2025 Radiology Diagnostic study note [facility] Imaging Services [address] [place] [address] Sinus/Facial Bone MR#: [id number] Acct: [id number] Name: JERO LAYNE Rep #: [id number] : 1945 F 79 From: Jean Claude Azevedo MD PCP: Dr. Argelia Levy DO Status: REG ER Study:Sinus/Facial Bone Date of Exam: Exam# [id number] Ordering Dr: Rita Brice PROCEDURE: SINUS/FACIAL BONE [...] use of iterative reconstruction technique). Reading Location: [facility] CC: Dr. Argelia Levy DO; MEKHI Raza ~ Recovery Manager: Signed [facility]03-15-2025 Radiology Diagnostic study note [facility] Imaging Services [address] [place] [address] Knee 1 or 2 Views MR#: [id number] Acct: [id number] Name: JERO LAYNE Rep #: [id number] : 1945 F 79 From: Jean Claude Azevedo MD PCP: Dr. Argelia Levy DO Status: REG ER Study:Knee 1 or 2 Views Date of Exam: Exam# [id number] Ordering Dr: Rita Brice PROCEDURE: KNEE 1 OR 2 VIEWS REASON FOR EXAM: PAIN TECHNIQUE: Two-view left knee COMPARISON: None. FINDINGS: There is an acute fracture of the patellar body which is displaced approximately6 mm with a joint effusion. Demineralized bones. No dislocation RAD/Knee 1 or 2 Views IMPRESSION: Acute patellar fracture on background demineralization. Reading Location: [facility] CC: Dr. Argelia Levy DO; MEKHI Raza ~ Recovery Manager: Signed [facility]03-15-2025 Radiology Diagnostic study note [facility] Imaging Services [address] [place] [address] Spine Cervical without Contras MR#: [id number] Acct: [id number] Name: JERO LAYNE Rep #: [id number] : 1945 F 79 From: Jean Claude Azevedo MD PCP: Dr. Argelia Levy DO Status: REG ER Study:Spine Cervical without Contras Date of Exam: 12/06/24 Exam# [id number] Ordering Dr: Rita Brice PROCEDURE: SPINE CERVICAL [...] use of iterative reconstruction technique). Reading Location: [facility] CC: Dr. Argelia Levy DO; MEKHI Raza ~ Recovery Manager: Signed [facility]03-15-2025 Radiology Diagnostic study note [facility] Imaging Services [address] [place] [address] Brain/Head without Contrast MR#: [id number] Acct: [id number] Name: JERO LAYNE Rep #: [id number] : 1945 F 79 From: Jean Claude Azevedo MD PCP: Dr. Argelia Levy DO Status: REG ER Study:Brain/Head without Contrast Date of Exa m: 12/06/24 Exam# [id number] Ordering Dr: Rita Brice EXAM: BRAIN/HEAD WITHOUT [...] acute intracranial abnormality. Senescent changes. Reading Location: [facility] CC: Dr. Argelia Levy DO; MEKHI Raza ~ Recovery Manager: Signed [facility]12-05-2024 Evaluation note* Diagnosis Onset Date Resolution [...] to ambulate acute December 06, 2024 6:05pm [facility] Work Phone: [phone]) 485-788812-05-2024 Evaluation note* Diagnosis Onset Date Resolution Status [...] ar tachycardia) chronic December 06, 2024 6:45pm [facility] Work Phone: 1(245) 191-969812-02-2024 Note* Exam Date Time Procedure Performing Provider Status 08/25/24 4:17 PM Echocardiogram, Adult - CV Auth (Verified) [facility] 12-02-2024 Note ORIGINAL EXAMINATION: BONE DENSITOMETRY [...] Sign Date: 08/25/2024 3:40:14 PM Ordering Provider: [facility]08-22-2024 Note ORIGINAL EXAMINATION: CT Angiogram of the [...] Sign Date: 05/15/2024 9:48:09 AM Ordering Provider: [facility]08-22-2024 Note ORIGINAL EXAMINATION: CTA neck: TECHNIQUE: Contiguous [...] Date: 05/15/2024 9:55:06 AM [facility]* Exam Date Time Procedure Performing Provider Status 05/15/24 8:16 AM VL Carotid US/Dopple r Complete - CV Auth (Verified) [facility] 12-10-2023 Hospital Discharge instructions Patient Education [...] when standing up too quickly or straining [facility]. [address] [place] [address]. All rights reserved. This information is not [...] about: All medicines you take, including prescription, qons-zuc-kxyykes, herbs, and supplements Any other symptoms you [...] Chest, arm, neck, back, or jaw pain [employer] [facility]. [address] [place] [address]. All rights reserved. This information is not intended as a substitute for professional medical care. Always follow yourhealthcare professional's instructions. Follow Up Care 09/02/2023 11:01:47 With:ARGELIA LEVY DO Address: [address] [place] [address]- [phone] When:2-4 days [facility] 12-10-2023 Emergency department Discharge summary Discharge Instructions Thank you for allowing [facility] to assist you with your healthcare needs. The following is importantdischarge information regarding your hospital visit. Diagnosis from Today's Visit Dizziness Head pressure What to Do Next Instructions from Your Care Team No qualifying data available. Post Acute Orders No qualifying data available. You Need to Schedule the Following Appointments Follow Up with ARGELIA LEVY DO When Within 2-4 days Where: [address] [place] [address] [phone] Allergies ASA/caffeine/propoxyphene (Unknown) Darvon (vomiting) atorvastatin (Unknown) [...] when standing up too quickly or straining [phone] [employer] [facility]. [address] [place] [address], [place] [address]. All rights reserved. This information is not intended as a substitute for professional medical care. Always follow yourhealthcare professional's instructions. Dizziness (Uncertain Cause) Dizziness is a common symptom. It may be described as lightheadedness, spinning, or feeling like you are going to faint. Dizziness can have many causes. Be sure to tell the healthcare provider about: All medicines you take, including prescription, ybir-sdl-idkxzvb, herbs, and supplements Any other symptoms you [...] Chest, arm, neck, back, or jaw pain [phone] [employer] [facility]. [address] [facility], [place] [address]. All rights reserved. This information is not intended as a substitute for professional medical care. Always follow yourhealthcare professional's instructions. Additional Information VACCINATE! IT SAVES LIVES! Members of the community who have not yet received the COVID-19 vaccine and would like to receive it can visit one of [facility] vaccine clinics. There are many vaccine clinic locations within the [facility]. For locations and available times, please visit www.gettheshot.coronavirus.[place].gov/. It is important to note that some COVID mobile vaccine clinics are held outdoors and may be canceled in rainy or stormy conditions. To learn more about pediatric vaccinations (ages 5-11), we invite you to visit the [facility] webpage. https://www.akronGoSaves.org/pages/5529-Rcnou-Dikncwpkxhy-Cdyqnninab-Xbvzd-Tng stions.htmlTo learn more about the COVID-19 vaccine, we invite you to visit the CDC website for a list of frequently asked questions. https://www.cdc.gov/coronavirus/2019-ncov/vaccines/faq.html [facility] Patient Portal Access Instructions: Stay connected with your healthcare team and access your personal medical information anytime with the [facility] Patient Portal. If you would like a full copy of your medical records please contact the [facility] Medical Records Department Sunday through Sunday between 8a.m. and 4:30p.m. Please follow the directions below to access the portal: 1.Access the email account you provided upon registration to the hospital.2.Look for an invitation email from [facility].3.Open the email and access the invitation link: Accept Invitation to [facility]4.Fill in the required french to create your account. Sign into [email or web address] with your username and password that you [...] you will allow to register on the [facility] Patient Portal for access to your information. You can also access the [facility] Patient Portal on the [employer] nyla. Simply click on Health Records under [employer] and then click on the [facility] logo. HOW TO SAFELY DISPOSE OF PRESCRIPTION [...] Call your local pharmacy or go to http://Compliance 11.Sassor/1U6Ie5x to find one close to you.3.Make use of household items: Use cat litter or old coffee grounds to dispose medications if other options arenot available. Mix your drugs with these household products, seal them in an airtight container andthrow it into the garbage. Call [facility]: [phone] to be sure your drugs can be [...] been reviewed and explained to me and IDEBBIE MARTHA E understand my current condition and have read and understand these discharge instructions. I have received a written copy of the plan/instructions. If I have questions, I am aware that I should contact my doctor. Patient/Ticket Seller Signature: Date/Time: Relationship to Patient: Witness Name/Signature: Date/Time: [facility]12-10-2023 Note ORIGINAL EXAMINATION: ONE XRAY VIEW [...] Date: 09/02/2023 12:13:24 PM Ordering Provider: YAZMIN [facility]12-10-2023 Note ORIGINAL EXAMINATION: CT OF THE [...] Date: 09/02/2023 12:12:26 PM Ordering Provider: [facility] NoteSinus rhythm Borderline left axis deviation Anteroseptal infarct, old Compared to ECG at 07/27/2023 20:20:02 BORDERLINE ECG Electronic Signature: SANJEEVKaylene YAZMIN ESTEVEZ 09/02/2023 11:44:59[facility] 11-15-2023 Discharge summary Author Juan Diego Marks [facility] August 08, 2023 7:38pm Note Date/Time August 08, 2023 7:34pm [facility] Medical Records Department [address] [place] [address] Discharge Summary 08/08/231931 MR#: [id number] Acct: [id number] Name: JERO LAYNE Rep #:[id number] : 1945 77 From: Juan Diego Marks MD PCP: Dr. Argelia Levy DO Status:ADM IN Location: [place] [address] Providers Date of Admission: 07/31/23 Primary Care Physician: Dr. Argelia Levy DO Reason For Visit: HYPONATREMIA/COVID Diagnosis Discharge Diagnosis [...] discharge home alone. Discharge home alone 08/14/2023, [employer] PT, [facility] Van. Physical Exam Const alert General Appearance: cooperative [...] (Auto) 43.2 L, Lymph % (Auto) 39.3, [place] % (Auto) 9.7, Eos % (Auto) 6.6 [...] pain Additional Instructions: Discharge home alone 08/14/2023, [employer], [employer]. Please Follow Up With: Dr. Blount Meaningful Use Info Meaningful Use Diagnoses (Choose all that apply): None applicable Discharge Plan Admission Admit Date/Time: 07/31/23 15:21 Primary Reason for Your Visit: Debility. Attending Provider: Juan Diego Marks [facility] Primary Care Provider: Argelia Levy Instructions Additional Instructions / Restrictions: Discharge home alone 08/14/2023, [employer], [employer] [facility]. Discharge Orders/Prescriptions Prescriptions: New acetaminophen 500 [...] in instructions Referrals / Follow Up: Argelia Levy DO [Primary Care Provider] - Disposition Disposition (needs filled in before D/C Order can be placed): Home, Self Care 08/08/231937 <Electronically signed by Juan Diego Marks MD> Cosigner Signature (if applicable): CC: Dr. Argelia Levy DO; Dr. Juan Diego Marks MD~ Signed [facility] Work Phone: [phone]) 340-186411-09-2023 Progress note Author Marisa Najera [facility] August 02, 2023 10:43am Note Date/Time August 02, 2023 1 0:11am [facility] Medical Records Department [address] [place] [address] Progress Note - Pharmacy 08/02/23 1006 MR#: [id number] Acct: [id number] Name: JERO LAYNE Rep #:[id number] : 1945 77 From: Marisa Najera PCP: Dr. Argelia Levy DO Status:ADM IN Location: [place] [address]- TCU RX Drug Regimen Review Subjective/Objective Subjective/Objective: [...] Dose Route Start Last Admin Trade Name Raimundoq PRN Reason Stop Dose Admin Acetaminophen 1,000 [...] 10:00 Menthol/Lanolin/Calamine/Znox 113 Gm Tube TOPICAL BID [facility] Protocol Enoxaparin Sodium 40 mg 08/01/23 06:00 [...] 1043 <Electronically signed by Marisa Najera> Marisa Keen Signature (if applicable): CC: ~ Signed [facility] Work Phone: 1(889) 881-954511-08-2023 History and physical note Author Juan Diego Marks [facility] August 01, 2023 5:35pm Note Date/Time July 31, 2023 4 :23pm [facility] Medical Records Department [address] [place] [address] History & Physical Exam 07/31/23 1619 MR#: [id number] Acct: [id number] Name: JERO LAYNE Rep #:[id number] : 1945 77 From: Juan Diego Marks MD PCP: Dr. Argelia Levy, DO Status:ADM IN Location: [place] [address] HPI - General General Date of Admission: 07/31/23 Date of Service: 07/31/23 Chief Complaint: Here for rehabilitation. HPI Narrative JERO LAYNE, is a 77 Female who presents with followin07/28/2023 Admit to [facility]. +covid 07/24/2023, fatigue, malaise, nausea/vomiting, dizziness, loose stools, sore throat, myalgias, chills. Sodium 119, chronic hyponatremia on sodium chloride tablets, Chest X-ray negative. [facility] Emergency department gave normal saline 750ml iv, KCL 40meq,Magnesium 2gm iv, Zofran 4mg iv, Morphine 2mg iv, Tylenol 650mg x 1. IV fluids for hyponatremia, dehydration. Repeat magnesium level. 07/28/2023 Pulsox 100% on room air. Consult Nephrology for hyponatremia. 07/29/2023 Doing well. Stop HCTZ for hyponatremia. Magnesium level 2.1. 07/30/2023 Weak, unsafe to go home to [facility], recommend SNF. Decadron not necessary for covid. Sodium chloride 1gm bid, stop Lasix, stop HCTZ, stop Sertraline for hyponatremia. 07/31/2023 Admit to TCU with debility, here for rehabilitation, strengthening, prior to discharge home with . [facility] Medical History (Updated 07/31/23 @ 16:[address] Juan Diego Marks MD) Allergic rhinitis Anxiety and depression [place] disease Chronic hyponatremia COVID-19 History of endometrial [...] History Mother CVA (cerebral vascular accident) Father [place] disease Son [place] disease Brother Heart disease Hypertension Daughter Lupus [...] Cosigner Signature (if applicable): CC: Dr. Argelia Levy DO; Dr. Juan Diego Marks MD~ Signed ADDENDUM by Dr. Juan Diego Marks MD on 08/01/23 at 1735 Addendum Depression - Sertraline 50mg daily, stable chronic rn first assistant use, GDR not recommended, monitor sodium. 08/01/23 1735<Electronically signed by Juan Diego Marks MD> Cosigner Signature (if applicable): cc: Dr. Argelia Levy DO; Dr. Juan Diego Marks MD ~* Signed [facility] Work Phone: 1(755) 935-871311-07-2023 Progress note Author De Blount [facility] July 31, 2023 12:46pm Note Date/Time July 31, 2023 1 2:46pm [facility] Medical Records Department [address] [place] [address] Progress Note - Nephrology 07/31/23 1244 MR#: [id number] Acct: [id number] Name: DEBBIEJERO GAN Rep #:[id number] : 1945 77 From: De arenas MD PCP: Dr. Argelia Levy, DO Status:ADM IN Location: MS3 [id number] Subjective Subjective No new events Objective Data [...] % (Auto) 67.4, Lymph % (Auto) 21.0, [place]% (Auto) 8.6, Eos % (Auto) 2.2, Baso [...] daily. Discharge planning discussed with hospitalist 07/31/23 1246 <Electronically signed by De Blount MD> Cosigner Signature (if applicable): CC: ~ Signed [facility] Work Phone: 1(134) 124-424711-06-2023 Progress note Author Natalya Wright [facility] July 30, 2023 5:01pm Note Date/Time July 30, 2023 5 :01pm [facility] Medical Records Department [address] [place] [address] Progress Note - Hospitalist 07/30/23 1658 MR#: [id number] Acct: [id number] Name: JERO LAYNE Rep #:[id number] : 1945 77 From: Natalya Wright MD PCP: Dr. Argelia Levy, DO Status:ADM IN Location: [place] [address]1 Reason for Visit Reason for Visit: Diagnoses Hypo-osmolality and hyponatremia (07/28/23) COVID-19 (07/28/23) Subjective Subjective Patient reports feeling weak and still has her unsteadiness and does not feel safe to go home as she lives alone has [facility]. Would like to pursue placement Objective [...] replacement was given repeat serum potassium normal. 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 07/29/2023: Awaiting lab work today, she [...] carrier status: Patient with family history of [place] disease, noted to be a carrier herself only. #9. Allergic rhinitis: If needed may add patient azelastine nasal spray. DVT: Lovenox Time spent in the patient's overall evaluation,decision-making process, review of diagnostic data, adjustment of management, discussion with other providers, nursing nursing and ancillary staff involved in patient's care documentation, 37minutes Charges/Coding Visit Charges Inpatient E&M: 36514 Subs Hosp L2 07/30/23 1701 <Electronically signed by Natalya Wright MD> Cosigner Signature (if applicable): CC: ~ Signed [facility] Work Phone: [phone] [id number] Progress note Author Trever Viveros [facility] July 29, 2023 8:34am Note Date/Time July 29, 2023 8 :29am [facility] Medical Records Department [address] [place] [address] Progress Note - Hospitalist 07/29/23 0825 MR#: [id number] Acct: [id number] Name: JERO LAYNE Rep #:[id number] : 1945 77 From: Trever pickering MD PCP: Dr. Argelia Levy, DO Status:ADM IN Location: MS3 [id number] Subjective Subjective Normal doing well, no issues [...] replacement was given repeat serum potassium normal. 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 07/29/2023: Awaiting lab work today, she [...] DVT: Lovenox Charges/Coding Visit Charges Inpatient E&M: 82095 Subs Hosp L2 07/29/23 0834 <Electronically signed by Trever Viveros MD> Cosigner Signature (if applicable): CC: ~ Signed [facility] Work Phone: 1(181) 588-792611-04-2023 Consult note Author De Blount [facility] July 28, 2023 1:08pm Note Date/Time July 28, 2023 1 :08pm [facility] Medical Records Department [address] [place] [address] Consultation - Nephrology 07/28/23 1305 MR#: [id number] Acct: [id number] Name: JERO LAYNE Rep #:[id number] : 1945 77 From: De arenas MD PCP: Dr. Argelia Levy, DO Status:ADM JON Location: [place] [address]-1 Assessment & Plan Assessment/Plan (1) Hyponatremia: PLAN: [...] Reason for Consultation: Hyponatremia HPI Narrative: JERO LAYNE, is a 77 F who presents to [...] loss or gain recently. No significant edema. [facility] Medical History Allergic rhinitis Anxiety and depression Kimberlee disease [...] 86.0 H, Lymph % (Auto) 10.1 L, [place] % (Auto) 3.1, Eos % (Auto) 0.2, [...] Final 07/28/23 1308 <Electronically signed by De Blount MD> Cosigner Signature (if applicable): CC: Dr. Madhavi Pate MD; Dr. De Blount MD; Dr. Argelia Levy, DO~ Signed [facility] Work Phone: 1(422) 214-757111-04-2023 Progress note Author Brooks Carcamo [facility] July 28, 2023 11:52am Note Date/Time July 28, 2023 7 :32am [facility] Medical Records Department [address] [place] [address] Progress Note - Hospitalist 07/28/2330 MR#: [id number] Acct: [id number] Name: JERO LAYNE Rep #:[id number] : 1945 77 From: Brooks Cowart PCP: Dr. Argelia Levy DO Status:ADM JON Location: [address] Reason for Visit Reason for Visit: Diagnoses [...] 86.0 H, Lymph % (Auto) 10.1 L, [place] % (Auto) 3.1, Eos % (Auto) 0.2, [...] tablets by PCP. 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 Physical exam General: Alert, Oriented x3, Cooperative [...] y female who was directly admitted on MedSurg floor from [facility] on 07/28/23 admitted with persistent cough nonproductive [...] replacement was given repeat serum potassium normal. 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 #3. Hypomagnesia: Magnesium from outside facility [...] carrier status: Patient with family history of [place] disease, noted to be a carrier herself [...] intubation status. Charges/Coding Visit Charges Inpatient E&M: 39642 Subs Hosp L2 07/28/23 1152 <Electronically signed by Brooks Carcamo MD> Cosigner Signature (if applicable): CC: ~ Signed [facility] Work Phone: 1(941) 258-179911-04-2023 History and physical note Author Madhavi Pate [facility] July 28, 2023 1:30am Note Date/Time July 28, 2023 1 2:22am [facility] Medical Records Department [address] [place] [address] H&P Exam - Hospitalist 07/28/23 0038 MR#: [id number] Acct: [id number] Name: JERO LAYNE Rep #:[id number] : 1945 77 From: Madhavi Pate MD PCP: Dr. Argelia Levy, DO Status:ADM JON Location: [address] HPI - General General Date of Admission: 07/28/23 Date of Service: 07/28/23 Chief Complaint: Cough, N/V, + COVID diagnosis HPI Narrative The patient is a 77 y/o F w/ PMHx: Chronic hyponatremia (prior rx ordered for sodium tablets but no obvious labs consistent with hyponatremia upon review of outside records thus unclear), Hypothyroidism, HLD, HTN, Anxiety and Depression who [facility] from [facility] on 07/28/23 w/ history of COVID symptom [...] congestion. Patient presented to the outside facility [facility] ED on 07/27/2023 and work-up at outside [...] no acute cardiopulmonary findings otherwise. Fromreview of [facility] records patient had a COVID-19 positive result [...] mg po x 1. Home medications per [facility] most recent records (unverified): Amlodipine 5 mg [...] except 2 tablets on Sunday, Sunday, Sunday [facility] Medical History Allergic rhinitis Anxiety and depression Kimberlee disease [...] tablet 40 mg PO DAILY see 07/28/23 [History Last Taken Unknown] sodium chloride [...] (cerebral vascular accident) Father Kimberlee disease Son [place] disease Brother Heart disease Hypertension Daughter Lupus [...] Anxiety and Depression who presents [facility] as a direct admission from [facility] on 07/28/23 w/ history of COVID diagnosis [...] 16 minutes. Charges/Coding Visit Charges Inpatient E&M: 09833 Init Hosp L3 Procedures Hospitalists Procedures: 19300 Advncd Care Plan 30 Min 07/28/23 0130 <Electronically signed by Madhavi Pate MD> Cosigner Signature (if applicable): CC: Dr. Madhavi Pate MD; Dr. Argelia Levy DO~ Signed [facility] Work Phone: 1(244) 128-403911-03-2023 Note ORIGINAL EXAMINATION: TWO XRAY VIEWS OF [...] 8:42:35 PM [facility] Sinus rhythm Borderline left axis deviation Anteroseptal infarct, old Nonspecific repol abnormality, diffuse leads Compared to ECG at 06/20/2021 17:38:08 Electronic Signature: RASHEL SPANGLER DO 07/27/2023 20:35:36[facility] 10-31-2023 SARS-CoV-2 (COVID-19) RNA YOLANDA+probe Ql (Nph) Positive *ABN* (07/24/23 2:06 PM)AO Auto Urine [id number] Note ORIGINAL EXAMINATION: BONE DENSITOMETRY 08/23/2022 11:52 [...] Date: 08/23/2022 1:33:00 PM Ordering Provider: ARGELIA [facility]11-30-2022 Note ORIGINAL EXAMINATION: BONE DENSITOMETRY 08/23/2022 11:52 [...] 1:33:00 PM [facility]ing [facility] Author Joni Funk [facility] July 31, 2023 2:11pm Note Date/Time July 31, 2023 2 :11pm [facility] Medical Records Department [address] [place] [address] Counseling Note - Pharmacy 07/31/23 1410 MR#: [id number] Acct: [id number] Name: JERO LAYNE Rep #:[id number] : 1945 77 From: Joni Funk PCP: Dr. Argelia Levy, DO Status:ADM IN Y Location: [place] [address] Pharmacy [place] Med Reconciliation Pharmacy Service has performed discharge [...] signed by Joni warren> Date _ Joni Keen Signature (if applicable): Date CC: ~ Signed [facility] Work Phone: Discharge summary Author Natalya Wright [facility] July 31, 2023 2:04pm Note Date/Time July 31, 2023 2 :01pm [facility] Medical Records Department [address] [place] [address] Transfer to Extended Care MR#: [id number] Acct: [id number] Name: JERO LAYNE Rep #:[id number] : 1945 77 From: Natalya Wright MD PCP: Dr. Argelia Levy, DO Status:ADM IN Certification of patient admission REQUIRED AT TIME OF ADMISSION. I CERTIFY THAT POST-HOSPITAL ECF SERVICES ARE REQUIRED TO BE GIVEN ON AN IN-PATIENT BASIS BECAUSE OF THE ABOVE NAMED PATIENT'S NEED FOR [facility] CARE ON A CONTINUING BASIS FOR THE CONDITION(S) FOR WHICH HE/SHE WAS RECEIVING IN-PATIENT HOSPITAL SERVICES PRIOR TO HIS/HER TRANSFER TO THE ECF. 07/31/23 1404<Electronically signed by Natalya Wright MD> [...] Anxiety and Depression who presents [facility] direct admission from [facility] on 07/28/23 for a sodium of 119. [...] to 1 g twice daily by the nail artist and zoloft has been discontinued to help [...] sodium [facility] Please call their office upon [...] Provider: Natalya Wright Primary Care Provider: Argelia Levy Consulting Providers: Madhavi Pate; De Blount; Brooks Carcamo; Natalya Wright; Trever Viveros Instructions [...] to 1 g twice daily by the nail artist and zoloft has been discontinued to help [...] sodium in 2 to 3 days [facility]. Please call their office [...] with food Referrals / Follow Up: De Blount MD [Med Staff - Consulting] - Argelia Levy DO [Primary Care Provider] - Within 1 Week Disposition Disposition (needs filled in before D/C Order can be placed): Alf Facility 07/31/23 1404 <Electronically signed by Natalya Wright MD> Cosigner Signature (if applicable): CC: Dr. Madhavi Pate MD; Dr. De Blount MD; Dr. Argelia Levy DO; Dr. Trever Viveros MD; Dr. Natalya Wright MD; Dr. Brooks Carcamo MD ~ [facility] Work Phone: Discharge summary Author Natalya Wright [facility] July 31, 2023 2:05pm Note Date/Time July 31, 2023 2 :05pm [facility] Medical Records Department [address] [place] [address] Discharge Summary 07/31/23 1404 MR#: [id number] Acct: [id number] Name: JERO LAYNE Rep #:[id number] : 1945 77 From: Natalya Wright MD PCP: Dr. Argelia Levy DO Status:ADM IN Location: [place] [address] Providers Date of Admission: 07/28/23 Date of Discharge: 07/31/23 Primary Care Physician: Dr. Argelia Levy, DO Consultations 07/28/23 07:32 Consult: Nephrology Routine Consulting Provider: De Blount Reason for Consult: Hyponatremia, Na 119 improving [...] #6. Hyperlipidemia #7. Anxiety and depression #8. [place] disease carrier status #9. Allergic rhinitis Medications [...] Anxiety and Depression who presents [facility] direct admission from [facility] on 07/28/23 for a sodium of 119. [...] to 1 g twice daily by the nail artist and zoloft has been discontinued to help [...] sodium in 2 to 3 days [facility]. Please call their office [...] % (Auto) 67.4, Lymph % (Auto) 21.0, [place]% (Auto) 8.6, Eos % (Auto) 2.2, Baso [...] Provider: Natalya Wright Primary Care Provider: Argelia Levy Consulting Providers: Madhavi Pate; De Blount; Brooks Carcamo; Natalya Wright; Kotsonis,Trever F Instructions Patient Instructions: Hyponatremia Dc Additional Instructions [...] to 1 g twice daily by the nail artist and zoloft has been discontinued to help [...] sodium in 2 to 3 days [facility]. Please call their office upon [...] with food Referrals / Follow Up: De Blount MD [Med Staff - Consulting] - Argelia Levy DO [Primary Care Provider] - Within 1 Week Disposition Disposition (needs filled in before D/C Order can be placed): Alf Facility Charges/Coding Visit Charges Inpatient E&M: 00315 Disch Hosp >30min 07/31/23 1405 <Electronically signed by Natalya Wright MD> Cosigner Signature (if applicable): CC: Dr. Argelia Levy DO; Dr. Natalya Wright MD~ Signed [facility] Work Phone: Evaluation + Plan note Future Appointments Appointment Date:07/27/2021 02:00:00 PM Scheduled Provider:SHAYNE GONZALEZ Location:[facility] Appointment Type:CV OV Appointment Date:09/13/2021 10:00:00 AM Scheduled Provider:ARGELIA LEVY DO Location:[facility] Appointment Type:PC OV Appointment Date:09/29/2021 11:30:00 AM Scheduled Provider:SHAYNE GONZALEZ Location:[facility] Appointment Type:CV OV [facility] Evaluation + Plan note Future Appointments Appointment Date:08/31/2021 02:00:00 PM Scheduled Provider:SHAYNE GONZALEZ Location:[facility] Appointment Type:CV OV Appointment Date:09/13/2021 10:00:00 AM Scheduled Provider:ARGELIA LEVY DO Location:[facility] Appointment Type:PC OV Appointment Date:09/29/2021 11:30:00 AM Scheduled Provider:SHAYNE GONZALEZ Location:[facility] Appointment Type:CV OV [facility] Evaluation + Plan note Future Appointments Appointment Date:03/01/2022 01:15:00 PM Scheduled Provider:SHAYNE GONZALEZ Location:[facility] Appointment Type:CV OV Appointment Date:04/05/2022 11:00:00 AM Scheduled Provider:ARGELIA LEVY DO Location:[facility] Appointment Type:PC OV Future Scheduled Tests Laboratory* Basic Metabolic Panel 10/06/21 * Thyroid Stimulating Hormone 12/04/21 [facility] Evaluation + Plan note Future Appointments Appointment Date:03/01/2022 01:15:00 PM Scheduled Provider:SHAYNE GONZALEZ Location:[facility] Appointment Type:CV OV Appointment Date:04/05/2022 11:00:00 AM Scheduled Provider:ARGELIA LEVY DO Location:[facility] Appointment Type:PC OV Future Scheduled Tests Laboratory* Basic Metabolic Panel 10/13/21 * Thyroid Stimulating Hormone 12/04/21 [facility] Evaluation + Plan note Future Appointments Appointment Date:03/01/2022 01:15:00 PM Scheduled Provider:SHAYNE GONZALEZ Location:[facility] Appointment Type:CV OV Appointment Date:04/05/2022 11:00:00 AM Scheduled Provider:ARGELIA LEVY DO Location:[facility] Appointment Type:PC OV Future Scheduled Tests Laboratory* Thyroid Stimulating Hormone 12/04/21 [facility] Evaluation + Plan note Future Appointments Appointment Date:12/09/2021 09:30:00 AM Scheduled Provider: Location:[facility] Appointment Type:PT Outpatient Evaluation Appointment Date:03/01/2022 01:15:00 PM Scheduled Provider:SHAYNE GONZALEZ Location:[facility] Appointment Type:CV OV Appointment Date:04/05/2022 11:00:00 AM Scheduled Provider:ARGELIA LEVY DO Location:[facility] Appointment Type:PC OV [facility] Evaluation + Plan note Future Appointments Appointment Date:03/01/2022 01:15:00 PM Scheduled Provider:SHAYNE GONZALEZ Location:[facility] Appointment Type:CV OV Appointment Date:04/05/2022 11:00:00 AM Scheduled Provider:ARGELIA LEVY DO Location:[facility] Appointment Type:PC OV [facility] Evaluation + Plan note Future Appointments Appointment Date:07/11/2022 11:30:00 AM Scheduled Provider:ARGELIA LEVY DO Location:[facility] Appointment Type:PC Wellness Medicare Appointment Date:09/06/2022 01:00:00 PM Scheduled Provider:SHAYNE GONZALEZ Location:[facility] Appointment Type:CV OV Appointment Date:10/10/2022 11:00:00 AM Scheduled Provider:ARGELIA LEVY DO Location:[facility] Appointment Type:PC OV Follow Up Future Scheduled Tests Laboratory* Basic Metabolic Panel 04/19/22 [facility] evaluation + Plan note Future Appointments Appointment Date:07/11/2022 11:30:00 AM Scheduled Provider:ARGELIA LEVY DO Location:[facility] Appointment Type:PC Wellness Medicare Appointment Date:09/06/2022 01:00:00 PM Scheduled Provider:SHAYNE GONZALEZ Location:[facility] Appointment Type:CV OV Appointment Date:10/10/2022 11:00:00 AM Scheduled Provider:ARGELIA LEVY DO Location:[facility] Appointment Type:PC OV Follow Up [facility] Evaluation + Plan note Future Appointments Appointment Date:09/06/2022 01:00:00 PM Scheduled Provider:SHAYNE GONZALEZ Location:[facility] Appointment Type:CV OV Appointment Date:12/26/2022 11:00:00 AM Scheduled Provider:ARGELIA LEVY DO Location:[facility] Appointment Type:PC OV Follow Up [facility] evaluation + Plan note Future Appointments Appointment Date:01/29/2023 01:30:00 PM Scheduled Provider:SHAYNE GONZALEZ Location:[facility] Appointment Type:CV OV [facility] evaluation + Plan note Future Appointments Appointment Date:01/29/2023 01:30:00 PM Scheduled Provider:SHAYNE GONZALEZ Location:[facility] Appointment Type:CV OV Future Scheduled Tests Laboratory* Complete Metabolic Panel 02/26/23 [facility] evaluation + Plan note Future Appointments Appointment Date:05/01/2023 01:00:00 PM Scheduled Provider:SHAYNE GONZALEZ Location:[facility] Appointment Type:CV OV Appointment Date:07/13/2023 02:00:00 PM Scheduled Provider:ARGELIA LEVY DO Location:[facility] Appointment Type:PC Wellness Medicare Future Scheduled Tests Laboratory* Complete Metabolic Panel 02/26/23 [facility] evaluation + Plan note Future Appointments Appointment Date:07/24/2023 10:45:00 AM Scheduled Provider: Location:[facility] Appointment Type:PC Nurse Injection Appointment Date:09/07/2023 11:30:00 AM Scheduled Provider:ARGELIA LEVY DO Location:[facility] Appointment Type:PC OV Appointment Date:11/13/2023 01:00:00 PM Scheduled Provider:SHAYNE GONZALEZ Location:[facility] Appointment Type:CV OV Future Scheduled Tests Laboratory* Complete Metabolic Panel 02/26/23 [facility] evaluation + Plan note Future Appointments Appointment Date:08/21/2023 10:45:00 AM Scheduled Provider: Location:[facility] Appointment Type:PC Nurse Appointment Date:09/07/2023 11:30:00 AM Scheduled Provider:WILNER, ARGELIA M DO Location:[facility] Appointment Type:PC OV Appointment Date:11/13/2023 01:00:00 PM Scheduled Provider:SHAYNE GONZALEZ Location:[facility] Appointment Type:CV OV Diagnostic Tests Pending * Urinalysis 07/27/23 Future Scheduled Tests Laboratory* Complete Metabolic Panel 02/26/23 [facility] Evaluation + Plan note Future Appointments Appointment Date:08/21/2023 10:45:00 AM Scheduled Provider: Location:[facility] Appointment Type:PC Nurse Appointment Date:09/07/2023 11:30:00 AM Scheduled Provider:ARGELIA LEVY DO Location:[facility] Appointment Type:PC OV Appointment Date:11/13/2023 01:00:00 PM Scheduled Provider:SHAYNE GONZALEZ Location:[facility] Appointment Type:CV OV Future Scheduled Tests Laboratory* Complete Metabolic Panel 02/26/23 [facility] Evaluation + Plan note Future Appointments Appointment Date:09/07/2023 11:30:00 AM Scheduled Provider:ARGELIA LEVY DO Location:[facility] Appointment Type:PC OV Appointment Date:09/25/2023 11:30:00 AM Scheduled Provider: Location:[facility] Appointment Type:PC Nurse Appointment Date:11/13/2023 01:00:00 PM Scheduled Provider:SHAYNE GONZALEZ Location:[facility] Appointment Type:CV OV Future Scheduled Tests Laboratory* Complete Metabolic Panel 08/22/23 [facility] Evaluation + Plan note Future Appointments Appointment Date:11/13/2023 01:00:00 PM Scheduled Provider:SHAYNE GONZALEZ Location:[facility] Appointment Type:CV OV [facility] evaluation + Plan note Future Appointments Appointment Date:12/19/2023 02:15:00 PM Scheduled Provider: Location:[facility] Appointment Type:PC Nurse Injection Appointment Date:01/24/2024 02:30:00 PM Scheduled Provider:ARGELIA LEVY DO Location:[facility] Appointment Type:PC OV Future Scheduled Tests Laboratory* Basic Metabolic Panel 12/05/23 [facility] Evaluation + Plan note Future Appointments Appointment Date:12/19/2023 02:15:00 PM Scheduled Provider: Location:[facility] Appointment Type:PC Nurse Injection Appointment Date:01/24/2024 02:30:00 PM Scheduled Provider:ARGELIA LEVY DO Location:[facility] Appointment Type:PC OV [facility] Evaluation + Plan note Future Appointments Appointment Date:03/13/2024 03:00:00 PM Scheduled Provider:ARGELIA LEVY DO Location:[facility] Appointment Type:PC OV Future Scheduled Tests Laboratory* Basic Metabolic Panel 03/13/24 [facility] Wynlinkaluation + Plan note Future Appointments Appointment Date:03/13/2024 03:00:00 PM Scheduled Provider:ARGELIA LEVY DO Location:[facility] Appointment Type:PC OV Diagnostic Tests Pending * Osmolality Urine 03/03/24 Future Scheduled Tests Laboratory* Basic Metabolic Panel 03/13/24 [facility] Evaluation + Plan note Future Appointments Appointment Date:04/24/2024 02:30:00 PM Scheduled Provider:ARGELIA LEVY DO Location:[facility] Appointment Type:PC OV Future Scheduled Tests Laboratory* Basic Metabolic Panel 03/13/24 [facility] Evaluation + Plan note Future Appointments Appointment Date:06/10/2024 01:00:00 PM Scheduled Provider:ARGELIA LEVY DO Location:[facility] Appointment Type:PC OV Future Scheduled Tests Laboratory* Basic Metabolic Panel 03/13/24 [facility] evaluation + Plan note Future Appointments Appointment Date:08/01/2024 12:30:00 PM Scheduled Provider:ARGELIA LEVY DO Location:[facility] Appointment Type:PC Wellness Medicare Future Scheduled Tests Laboratory* Basic Metabolic Panel 03/13/24 [facility] evaluation + Plan note Future Appointments Appointment Date:10/03/2024 01:30:00 PM Scheduled Provider:ARGELIA LEVY DO Location:[facility] Appointment Type:PC OV Future Scheduled Tests Laboratory* Basic Metabolic Panel 03/13/24 [facility] evaluation + Plan note Future Appointments Appointment Date:12/18/2024 02:30:00 PM Scheduled Provider:ARGELIA LEVY DO Location:[facility] Appointment Type:PC OV Future Scheduled Tests Laboratory* Basic Metabolic Panel 03/13/24 [facility] evaluation note* Diagnosis Onset Date Resolution Status COVID-19 acute Hyponatremia acute [facility] Work Phone: evaluation note* Diagnosis Onset Date Resolution Status COVID-19 acute Hyponatremia acute Anxiety acute COVID-19 acute Debility acute Depression acute Hyperlipidemia acute Hypomagnesemia acute Hyponatremia acute Osteoarthritis acute HTN (hypertension) chronic [facility] Work Phone: Evaluation note* Diagnosis Onset Date Resolution Status COVID-19 resolved Hyponatremia resolved HTN (hypertension) chronic Hyperlipidemia chronic Anxiety resolved COVID-19 resolved Hypomagnesemia resolved Hyponatremia resolved Vertigo acute CAD (coronary artery disease) chronic HTN (hypertension) chronic Hyperlipidemia chronic [facility] Work Phone: Evaluation note* Diagnosis Urinary retention- Primary Unspecified retention of urine [facility] Urinary retention- Primary Unspecified retention of urine documented [facility] this [facility] Author Sandro Jackman [facility] Note Date/Time December 06, 2024 7:0 9pm [facility] Medical Records Department [address] [place] [address] [place] [address] H&P Exam - Hospitalist 12/06/24 1852 MR#: [id number] Acct: [id number] Name: JERO LAYNE Rep #:[id number] : 1945 79 From: Sandro Jackman MD PCP: Dr. Argelia Levy, DO Status:ADM IN Location: [facility] HAI945- 1 HPI - General General Date of Admission: 12/06/24 Date of Service: 12/06/24 Chief Complaint: Acute fall HPI Narrative JERO LAYNE, is a 79 F with past medical [...] fracture, Cervical spine fracture, Or intracranial bleed [facility] Medical History Allergic rhinitis Anxiety and depression [...] 1 tab PO BID 3 Unknown History ln-fmse-vdwt-joseph-boron chew tablet (Caltrate 600-D Plus Minerals) cyanocobalamin [...] (cerebral vascular accident) Father Kimberlee disease Son [place] disease Brother Heart disease Hypertension Daughter Lupus [...] 85.3 H, Lymph % (Auto) 8.6 L, [place] % (Auto) 4.0, Eos % (Auto) 1.3, [...] acute intracranial abnormality. Senescent changes. Reading Location: [facility] Cervical Spine CT 12/06/24 16:41 IMPRESSION: No evidence of acute cervical spine fracture. Demineralization does limit sensitivity One or more dose reduction techniques were used (e.g., Automated exposure control, adjustment of the mA and/or kV according to patient size, use of iterative reconstruction technique). Reading Location: [facility] Facial/Sinus 12/06/24 16:41 IMPRESSION: No evidence of acute facial fracture. Senescent changes. One or more dose reduction techniques were used (e.g., Automated exposure control, adjustment of the mA and/or kV according to patient size, use of iterative reconstruction technique). Reading Location: [facility] Chest X-Ray 12/06/24 17:10 IMPRESSION: No acute findings. Senescent changes. Mild cardiac enlargement. Reading Location: [facility] Knee X-Ray 12/06/24 17:10 IMPRESSION: Acute patellar fracture on background demineralization. Reading Location: [facility] Echocardiogram 09/26/2023: Interpretation Summary The left [...] 06/25/2024: Interpretation: [place] a [place] [id number] beats recorded over the 24 hour period. [...] test. 7 DAY EVENT MONITOR 12/20/22-12/26/22: IMPRESSION front desk monitor significant for normal sinus rhythm background and [...] CC: Dr. Sandro Jackman MD; Dr. Argelia Levy, DO~ Signed [facility] Work Phone: Hospital course Narrative No data available for this section [facility] Hospital Discharge instructions No data available for this section [facility] Hospital Discharge instructions Additional Instructions Discharge home alone 08/14/2023, [employer] [facility], [facility] Work Phone: Progress note No data available for this section [facility] Reason for referral (narrative)No reason for referral information available[facility] Work Phone: Chief Complaint and Reason [...] COVID HYPONATREMIA, COVID HYPONATREMIA, COVID HYPONATREMIA/COVID HTN ([facility] / SELF) Atherosclerotic heart disease of [place] coronary a Amb Documentation Reason for Visit [...] 2024 2:2 5pm Mitral valve insufficiency December 04 2:25pm NSVT (nonsustained ventricular tachycard ia) December [...] Date/ Time Name of Medical Power of Network Director maxim layne July 27, 2023 11:57pm Advance Directives Yes July 26, 2015 7:47am Living Will Yes July 27 11:57pm Power of Network Director Yes July 27, 2023 11:57pm Advance Directive Response Recorded Date/ Time Name of Medical Power of Network Director Maxim Debbie, son August 01, 2023 4:35pm Advance Directives Yes July 26, 2015 7:47am Living Will Yes August 01 4:35pm Power of Network Director Yes August 01, 2023 4:35pm Name of Medical Power of Network Director maxim layne July 27, 2023 11:57pm Advance Directive Response Recorded Date/ Time Advance Directives Yes July 26, 2015 8:47am Advance Directive Response Recorded Date/ Time Living Will Yes December 06, 2024 8:05pm Do you have a Healthcare Power of Network Director? Yes December 06, 2024 8:05pm Name of Medical Power of Network Director Maxim Jeffries December 06, 2024 8:05pm Advance Directives Yes July 26, 2015 8:47am Summary Purpose Additional Source Comments Care Team (unrecognized sect ion and content) Team Status: Active Member Role Status Dates Dr. Anel Read MD Family Provider Active Dr. Argelia Levy , DO Primary Care Provider Active Team Status: Active Member Role Status Dates Dr. Madhavi Pate MD Admit Provider, Attending Provider, Other Provider Active Dr. Argelia Levy , DO Primary Care Provider Active Team Status: Active Member Role Status Dates Dr. Madhavi Pate MD Admit Provider, Other Provider Active Dr. Argelia Levy , DO Primary Care Provider Active Dr. De Blount MD Other Provider Active Dr. Trever Viveros MD Attending Provider, Other Provider Active Dr. Brooks Carcamo MD Other Provider Active Team Status: Active Member Role Status Dates Dr. Madhavi Pate MD Admit Provider, Other Provider Active Dr. Argelia Levy , DO Primary Care Provider Active Dr. De Blount MD Other Provider Active Dr. Brooks Carcamo MD Other Provider Active Dr. Natalya Wright MD Attending Provider, Other Provid er Active Dr. Trever Viveros MD Other Provider Active Team Status: Inactive Member Role Status Dates Dr. Madhavi Pate MD Admit Provider, Other Provider Active Dr. Argelia Levy , DO Primary Care Provider Active Dr. De Blount MD Other Provider Active Dr. Brooks Carcamo MD Other Provider Active Dr. Natalya Wright MD Attending Provider, Other Provid er Active Dr. Trever Viveros MD Other Provider Active Team Status: Inactive Member Role Status Dates Dr. Argelia Levy DO Primary Care Provider Active Dr. Juan Diego Marks MD Admit Provider, At tending Provider, Referring Provider Active Team Status: Inactive Member Role Status Dates Dr. Argelia Levy DO Primary Care Provider, Referri ng Provider Active Dr. Kristy Andrew MD Attending Provider Active Team Status: Active Member Role Status Dates Dr. Argelia Levy DO Primary Care Provider Active Dr. Kristy Andrwe MD Attending Provider Active Team Status: Active Member Role Status Dates Dr. Argelia Levy DO Primary Care Provider Active Jesus Mcneal NP, CAT BREEDER-C Attending Provider Active Team Status: Inactive Member Role Status Dates Dr. Argelia Levy DO Primary Care Provider Active Dr. Kristy Andrew MD Attending Provider, Referring Pr ovider Active Team Status: Active Member Role Status Dates Dr. Argelia Levy DO Primary Care Provider Active Team Status: Inactive Member Role Status Dates Dr. Argelia Levy DO Primary Care Provider Active Start: August 28, 2024 End: August 28, 2024 Dr. Argelia Levy DO Referring Provider Active Start: August 28, 2024 End: August 28, 2024 Dr. Kristy Andrew MD Attending Provider Active Start: August 28, 2024 End: August 28, 2024 Team Status: Active Member Role Status Dates Dr. Argelia Levy DO Primary Care Provider Active Start: September 06, 2024 Dr. Kristy Andrew MD Attending Provider Active Start: September 06, 2024 Dr. Kristy Andrew MD Referring Provider Active Start: September 06, 2024 Team Status: Inactive Member Role Status Dates Dr. Argelia Levy DO Primary Care Provider Active Start: December 04, 2024 End: December 04, 2024 Dr. Argelia Levy DO Referring Provider Active Start: December 04, 2024 End: December 04, 2024 Dr. Kristy Andrew MD Attending Provider Active Start: December 04, 2024 End: December 04, 2024 Team Status: Active Member Role Status Dates Dr. Argelia Levy DO Primary Care Provider Active Start: December 06, 2024 Dr. Orville Cortez MD Emergency Provider Active S tart: December 06, 2024 Dr. Sandro Jackman MD Admit Provider Active St art: December 06, 2024 Dr. Sandro Jackman MD Attending Provider Active Start: December 06, 2024 Team Status: Active Member Role Status Dates Dr. Argelia Levy DO Primary Care Provider Active Start: December [...] Inactive Member Role Status Dates Dr. Argelia Levy DO Primary Care Provider Active Start: December [...] 2024 End: December 11, 2024 Dr. De Blount MD Other Provider Active Start: December 06, 2024 End: December 11, 2024 Dr. Donovan Cano DO Attending Provider Active Start: December 06, 2024 End: December 11, 2024 Dr. Montse Cabrera MD Other Provider Active St art: December 06, 2024 End: December 11, 2024 Team Status: Active Member Role Status Dates Dr. Argelia Levy DO Primary Care Provider Active Start: December [...] Active Member Role Status Dates Dr. Argelia Levy DO Primary Care Provider Active Start: December [...] Active Member Role Status Dates Dr. Argelia Levy DO Primary Care Provider Active Start: December [...] Active Member Role Status Dates Dr. Argelia Levy DO Primary Care Provider Active Start: December [...] Active Member Role Status Dates Dr. Argelia Levy DO Primary Care Provider Active Start: December [...] Active Member Role Status Dates Dr. Argelia Levy DO Primary Care Provider Active Start: December [...] St art: December 10, 2024 Dr. De Blount MD Other Provider Active Start: December 10, 2024 Dr. Madhavi Pate MD Attending Provider Active Start: December 10, 2024 Team Status: Active Member Role Status Dates Dr. Argelia Levy DO Primary Care Provider Active Start: December [...] Active Start: December 11, 2024 Dr. De Blount MD Other Provider Active Start: December 11, 2024 Dr. Donovan Cano DO Attending Provider Active Start: December 11, 2024 Dr. Donovan Cano DO Other Provider Active Start: December 11, 2024 Dr. Montse Cabrera MD Other Provider Active St art: December 11, 2024 [employer] Consultant Relationship Specialty Start Date End Date Artur Georges MD [address] [place] [id number] Surgeon Urology 01/19/25 [employer] Consultant Relationship Specialty Start Date End Date Artur Georges MD [address] [place] [phone] Surgeon Urology 01/19/25 [employer] Consultant Relationship Specialty Start Date End Date Artur Georges MD [address] [place] [phone] Surgeon Urology 01/19/25 [employer] Consultant Relationship Specialty Start Date End Date Artur Georges MD [address] [place] [phone] Surgeon Urology 01/19/25 Care Team (unrecognized sect ion and content) Care Team Personnel Name: SHAYNE GONZALEZ APRN-AMBERLY Position: P4 Advanced Practice Nurse Med Service: Active Provider Member Role: Parasitologist Address: Address: [address] [place], [place] [address] Name: ARGELIA LEVY DO Position: P4 Physician - Primary Care Med Service: Active Provider Member Role: Primary Care Physician Address: Address: [address] [place] [address] Name: KRISTIN REYSE MD Position: Physician Med Service: Orthopedic Member Role: Orthopaedist Address: Address: [address] [place] [address] Name: JONEL MALIN Role: Telecommunications Field Technician Care Team Related Persons Name: MAXIM LAYNE Name: REJI LAYNE Care Team Personnel Name: SHAYNE GONZALEZ [place] OPERATOR-FIELD AIDE Position: P4 Advanced Practice Nurse Med Service: Active Provider Member Role: Parasitologist Address: Address: [address] [place] [address] Name: ARGELIA LEVY DO Position: P4 Physician - Primary Care Med Service: Active Provider Member Role: Primary Care Physician Address: Address: [address] [place] [address] Name: KRISTIN REYES MD Position: Physician Med Service: Orthopedic Member Role: Orthopaedist Address: Address: [address] [place] [address] Name: JONEL MALIN Role: Telecommunications Field Technician Care Team Related Persons Name: MAXIM LAYNE Name: REJI LAYNE Care Team Personnel Name: SHAYNE GONZALEZ [place] OPERATOR-FIELD AIDE Position: P4 Advanced Practice Nurse Member Role: Parasitologist Address: Address: [address] [place] [address]- Name: ARGELIA LEVY DO Position: P4 Physician - Primary Care Member Role: Primary Care Physician Address: Address: [address] [place] [address] Name: KRISTIN REYES MD Position: Physician Member Role: Orthopaedist Address: Address: [address] [place] [address] Name: JONEL MALIN Role: Telecommunications Field Technician Care Team Related Persons Name: MAXIM LAYNE Name: REJI LAYNE INFORMATION SOURCE (unrecogn ized section and content) DATE CREATED AUTHOR 05/24/2024 [facility] ([place]) DATE CREATED AUTHOR AUTHOR'S ORGANIZ ATION 11/09/2024 [facility] DATE CREATED AUTHOR AUTHOR'S ORGANIZ ATION 04/23/2025 [facility] DATE CREATED AUTHOR AUTHOR'S ORGANIZ ATION 04/25/2025 [facility] Goals (unrecognized section and content) Goals may [...] BE BASED ON THE PRIMARY CLINICAL RECORDS. [employer] provides no warranty or guarantee of the accuracy or completeness of information in this document.
--- NOTE | 2025-05-03 19:00 | RAD_ITS ---
PROCEDURE: HAND MIN 3 VIEWS 05/03/2025 REASON FOR EXAM: INJURY TECHNIQUE: HAND MIN 3 VIEWS Laterality: Left COMPARISON: None. FINDINGS: Bones: Diffuse osseous demineralization. No obvious acute fracture. No aggressive osseous lesions. Joints: Normal alignment. Moderate-severe degenerative changes. Soft tissues: Soft tissues are unremarkable. RAD/Hand Min 3 Views IMPRESSION: DEGENERATIVE OSTEOARTHROSIS. NO ACUTE FINDINGS. Reading Location: [id number]
[2025-05-03 19:16] VITALS: PULSE 84; RESP 17; O2SAT 98
[2025-05-03 20:02] VITALS: BP 154/87; PULSE 84; RESP 17; TEMP 36.6; O2SAT 98
== END 2025-05-03 20:56 | disposition home or self-care (01) ==
PROVIDERS: Emergency Provider Emergency Medicine; PCP Family Medicine; Visit Provider Emergency Medicine
DX: S09.90XA Unspecified injury of head, initial encounter (principal); S39.012A Strain of muscle, fascia and tendon of lower back, initial encounter; I25.10 Atherosclerotic heart disease of native coronary artery without angina pectoris; M25.552 Pain in left hip; I10 Essential (primary) hypertension; E78.5 Hyperlipidemia, unspecified; S60.222A Contusion of left hand, initial encounter; M25.551 Pain in right hip; W05.0XXA Fall from non-moving wheelchair, initial encounter; Y92.129 Unspecified place in nursing home as the place of occurrence of the external cause
CPT/HCPCS: 70450; 71250; 72125; 73130; 74176; 99285

== ENCOUNTER → 2025-07-08 17:30 | Outpatient (REF) | payer MEDICARE, BC, SELFPAY ==
[2025-07-09 09:37] LABS: Color, Urine Yellow (Yellow); Glucose, Dipstick Normal (Normal); Ketone-Dipstick Negative (Negative); Leukocyte Esterase-Dipstick 500 /ul (Negative); Mucous, Urine 0 SEEN /hpf (<or=2+); Nitrite-Dipstick Positive (Negative); Occult Blood-Urine 10 /ul (Negative); Protein-Dipstick 15 mg/dl (Negative); Specific Gravity, Urine 1.010 (1.002-1.030); Squamous Epithelial Cells - UA 0 SEEN /hpf (5-10); Urine Bilirubin Dipstick Negative (Negative)
[2025-07-09 09:44] LABS: Red Blood Cells-Urine 0-5 SEEN /hpf (0-5)
== END ==
LOC: OLS.ACH 17:30
PROVIDERS: PCP Family Medicine; Visit Provider Internal Medicine
DX: Z87.440 Personal history of urinary (tract) infections (principal)
CPT/HCPCS: 81001; 87077; 87086; 87088; 87186

== ENCOUNTER → 2025-08-03 05:00 | Outpatient (REF) | payer MEDICARE, BC, SELFPAY ==
--- OUTSIDE RECORDS SUMMARY | 2025-08-03 04:09 | XMS RPT_ITS | CCD ---
Author Organization [facility] Care Team Providers Care Check Processor Name Role Phone ARGELIA DARBY DO Primary Care Physician [phone] Dr. Madhavi Pate Admit Provider Dr. Madhavi Pate Attending Provider Dr. Madhavi Pate Other Provider Dr. Argelia Darby Primary Care Provider Dr. De Snowden Other Provider Dr. Trever Viveros Attending Provider Dr. Trever Viveros Other Provider Dr. Brooks Carcamo Other Provider Dr. Natalya Wright Attending Provider Dr. Natalya Wright Other Provider Dr. Argelia Darby Referring Provider [phone] Dr. Kristy Andrew Attending Provider Fredis HAIRSPRING TRUING INSPECTOR, HAIRSPRING TRUING INSPECTORJeremiahC Jesus Attending Provider ARGELIA DARBY DO Primary Care Physician ARGELIA DARBY DO Primary Care Unavailable ARGELIA [...] Provider Dr. Kristy Andrew MD Attending Provider [phone] Dr. Kristy Andrew MD Referring Provider [phone] Dr. Orville Cortez MD Emergency Provider Gasper [...] Provider Rachael ESTEVEZ, Dr. Man Other Provider [phone] Artur Georges MD Unavailable Dr. Argelia Darby DO Primary Care Provider Kendrick BURRELL, Dr. Juan Diego Hardy Admit Provider [phone] Kendrick BURRELL, Dr. Juan Diego Hardy Attending Provider Kendrick BURRELL, Dr. Juan Diego Hardy Referring Provider Yulissa BURRELL, Gene Attending Provider Unavailable Dr. Adolph Herrera DO Emergency Provider ROSITA RESENDIZ Attending Unavailable ARTUR GEORGES Attending Unavailable Sandro Jackman Admitting Unavailable Montse Cabrera Attending Unavailable Argelia Darby Primary Care Unavailable -Attn: Danielle Coker, [facility] Consulting Unav ailable Sandro Jackman Consulting Unavailable Michelle Dang Consulting Unavailabl e De Snowden Consulting Unavailable Montse Cabrera Consulting Unavailable Donovan Cano Attending Unavailable Donovan Cano Consulting Unavailable Kamran, Kristy Referring Unavailable Kamran, Kristy Attending Unavailable Wilner, Argelia Primary Care Unavailable Wilner, Argelia Primary Care Unavailable Deperro OLS, Gene Attending Unavailable Kendrick, Juan Diego Chi Referring Unavailable Kendrick, Juan Diego Chi Attending Unavailable Kendrick, Juan Diego Chi Admitting Unavailable Wilner, Argelia Primary Care Unavailable Wilner, Argelia Primary Care Unavailable Deperro OLS, Gene Attending Unavailable Wilner, Argelia Primary Care Unavailable Deperro OLS, Gene Attending Unavailable Wilner, Argelia Primary Care Unavailable Deperro OLS, Gene Attending Unavailable Wilner, Argelia Primary Care Unavailable Deperro OLS, Gene Attending Unavailable BelTim pinto Attending Unavailable Wilner, Argelia Primary Care Unavailable Kendrick, Juan Diego Chi Referring Unavailable Kamran, Kristy Attending Unavailable Wilner, Argelia Primary Care Unavailable Wilner, Argelia Referring Unavailable Jackman, Achintya Attending Unavailable Jackman, Achintya Admitting Unavailable Jackman, Achintya Consulting Unavailable Wilner, Argelia Primary Care Unavailable Kamran, Kristy Attending Unavailable Wilner, Argelia Primary Care Unavailable Wilner, Argelia Referring Unavailable Nagajothi, Nagapradee Attending Unavailabl e Wilner, Argelia Primary Care Unavailable Adolph Herrera Attending Unavailable Wilner, Argelia Primary Care Unavailable Deperro OLS, Gene Attending Unavailable Wilner, Argelia Primary Care Unavailable Deperro OLS, Gene Attending Unavailable Wilner, Argelia Primary Care Unavailable Deperro OLS, Gene Attending Unavailable Kamran, Kristy Referring Unavailable Kamran, Kristy Attending Unavailable Wilner, Argelia Primary Care Unavailable Jackman, Achintya Admitting Unavailable Wilner, Argelia Primary Care Unavailable -Attn: BUDDY [facility] Consulting Unav ailable Donovan Cnao Attending Unavailable Jackman, Achintya Consulting Unavailable De Snowden Consulting Unavailable Montse Cabrera Consulting Unavailable Nagajothi, Nagapradee Consulting Unavailabl e Allergies Allergy Classification Reported Allergen(s) Allergy Type Date of Onset Reaction(s) Facility (20 sources) Aspirin / Caffeine / Propoxyphene; Translations: [ASA/caffeine/pr opoxyphene] Drug Allergy Unknown [facility] (20 sources) atorvastatin; Translations: [atorvastatin] Drug Allergy 3 Unknown, myalgia [facility] (20 sources) Codeine; Translations: [codeine] Drug Allergy 3 Nausea (finding), Nausea Only [facility] (20 sources) Propoxyphene; Translations: [propoxyphene] Drug Allergy 3 Nausea Only [facility] (20 sources) Simvastatin; Translations: [simvastatin] Drug Allergy 3 myalgias, Myalgia [facility] (7 sources) Propoxyphene; Translations: [propoxyphene HCl] Drug Allergy 3 Nausea [facility] (8 sources) atorvastatin Drug Allergy 3 Unknown [facility] (8 sources) Simvastatin Allergy to substance 3 Other [facility] (1 source) atorvastatin Drug Allergy 5 [facility] (1 source) Codeine Drug Allergy 5 [facility] (1 source) Simvastatin Drug Allergy 5 [facility] Medications Current Medications Medication Drug Class(es) Dates Sig (Normalized) Sig (Original) acetaminophen 500 mg oral tablet (16 sources) Start: 01-12-2025 take 2 tablets by mouth every eight hours Acetaminophen 500 mg Tablet Active 1000 mg PO EVERY 8 HOURS 0 0 January 12, 2025 12:00am Start: 12-09-2024 End: 01-12-2025 take 2 tablets by mouth every six hours as needed for pain Acetaminophen (Tylenol) 325 mg tablet Discontinued 650 mg PO EVERY 6 HOURS as needed for pain 30 1 December 09, 2024 12:00am January 12, 2025 7:31pm Start: 08-08-2023 End: 12-11-2024 take 2 tablets by mouth every six hours as needed for pain Acetaminophen 500 mg Tablet Discontinued 1000 mg PO EVERY 6 HOURS NEEDED as needed for Pain Score 1-10 0 0 August 08, 2023 1:00am December 11, 2024 10:58am Start: 08-08-2023 take 1000 mg by mout h every six hours as needed Acetaminophen Active 1000 MG PO EVERY 6 HOURS NEEDED 0 August 08, 2023 12:00am take 1 tablet by robinson th every eight hours as needed for pain acetaminophen (Tylenol Extra Strength) 500 MG tablet Take 500 mg by mouth every 8 hours as needed for mild pain (1-3). Active atenolol 25 mg oral tablet (8 sources) beta-Adrenergic Rahat Start: 12-11-2022 atenol ol 25 mg oral tablet Dose : 25 mg = 1 tab(s), Oral, qDay, # 90 tab(s), 3 Refill(s), [facility]acy: [facility] #[id number], 167.6, cm, 12/11/22 13:15:00 EDT, Height, kg, 12/11/22 13:15:00 EDT, Dosing Weight Start Date: 12/11/22 Status: Ordered Start: 08-31-2021 atenolol 25 mg oral tablet Dose : 25 mg = 1 tab(s), Oral, qDay, # 90 tab(s), 3 Refill(s), [facility]acy: [facility] 166.4, cm, 08/31/21 13:51:00 EST, Height, kg, 08/31/21 13:51:00 EST, Dosing Weight Start Date: 08/31/21 Status: Ordered Start: 07-27-2021 atenolol 25 mg oral tablet Dose : 25 mg = 1 tab(s), Oral, qDay, # 30 tab(s), 5 Refill(s), [facility]acy: [facility] 166.4, cm, 07/27/21 13:50:00 EDT, Height, kg, 07/27/21 13:50:00 EDT, Dosing Weight Start Date: 07/27/21 Status: Ordered azelastine hydrochloride 0.206 mg/actuat metered [...] Status: Ordered bisacodyl 10 mg rectal suppository (8 sources) Stimulant Laxative take 10 mg rectal route every twenty-four hours as needed for constipation bisacodyl (Dulcolax) 10 MG suppository Insert 10 mg into the rectum Daily as needed for constipation. Active busPIRone hydrochloride 5 mg oral tablet (19 sources) Start: 04-17-2024 take 2 tablets by [...] BID, # 180 tab(s), 1 Refill(s), Pharmacy: [facility], Anxiety Sleeping difficulty, 166, cm, 10/23/23 13:09:00 EST, Height, kg, 10/23/23 13:09:00 EST, Dosing Weight Start Date: 10/23/23 Status: Ordered Calcium Carbonate (6 sources) Start: 03-16-2020 take [...] Refill(s) Start Date: 03/16/20 Status: Ordered carvedilol 6.25 mg oral tablet (20 sources) alpha-Adrenerg ic Rahat, beta-Adrenergi c Rahat Start: 01-12-2025 take 1 tablet by mouth twice daily at mealtime Carvedilol 6.25 mg Tablet Active 6.25 mg PO TWICE DAILY WITH MEALS 0 0 January 12, 2025 12:00am Start: 12-06-2024 End: 01-12-2025 take 1 tablet by mouth twice daily Carvedilol 3.125 mg tablet Discontinued 3.125 mg PO TWICE A DAY December 06, 2024 12:00am January 12, 2025 7:32pm Start: 10-29-2024 take 2 tablets by mo [...] 3.125 mg PO TWICE A DAY 180 3 March 11, 2024 12:00am May 01, 2024 4:23pm must administer with a meal/food Start: 07-26-2015 End: 07-28-2023 take 1 tablet by mouth twice daily Carvedilol 12.5 MG tablet Discontinued 12.5 mg PO TWICE A DAY July 26, 2015 1:00am July 28, 2023 1:04am clonazePAM 1 mg oral tablet (9 sources) Benzodiazepine Start: 01-12-2025 take 1 tablet by mouth once daily clonazePAM (KlonoPIN) 1 MG tablet Take 1 mg by mouth Nightly. 01/12/2025 Active cyclobenzaprine hydrochloride 10 mg oral tablet (2 sources) Muscle Relaxant Start: 01-12-2025 take 1 tablet by mouth three times daily as needed for muscle spasms Cyclobenzaprine 10 mg Tablet Active 10 mg PO THREE TIMES A DAY as needed for Muscle Spasm 0 0 January 12 2025 12:00am docusate sodium 100 mg oral capsule (20 sources) Start: 03-16-2020 Dulcolax Stool Softener 100 mg oral capsule Dose : 100 mg = 1 cap(s), Oral, BID, PRN as needed for constipation, # 20 cap(s), 0 Refill(s) Start Date: 03/16/20 Status: Ordered docusate sodium 50 mg / sennosides, long term 8.6 mg oral tablet (9 sources) Start: 01-12-2025 senna-docusate (Rupa-Colace) 8.6-50 MG tablet Take 1 tablet by mouth. prn 01/12/2025 Active Start: 01-12-2025 Sennosides-Doc usate Sodium (Stimulant Laxative Plus) 8.6-50 mg Tablet Active 2 {tbl} PO TWICE A DAY 0 January 12, 2025 12:00am ezetimibe 10 mg oral tablet (2 sources) Dietary Cholesterol Absorption Inhibitor Start: 12-11-2022 Zetia 10 mg oral tablet Dose : 10 mg = 1 tab(s), Oral, qDay, # 30 tab(s), 5 Refill(s), Pharmacy: [facility] #[id number], 167.6, cm, 12/11/22 13:15:00 EDT, Height Start Date: 12/11/22 Status: Ordered ipratropium bromide 0.042 mg/actuat metered dose nasal spray (20 sources) Anticholinergic Start: 01-12-2025 Ipratropium Br omide 42 mcg (0.06 %) [place],Non-Aerosol Active 1 NMA NASAL TWICE A DAY 0 January 12, 2025 12:00am Start: 07-02-2024 take 42 ug nasal rou te twice daily ipratropium 21 mcg/inh (0.03%) nasal spray 42 mcg Dose = 2 spray(s), Nostril, each, BID, # 1 EA, 1 Refill(s), Pharmacy: [facility], Allergic rhinitis, 166, cm, 06/10/24 13:00:00 EDT, Height, kg, 06/10/24 13:00:00 EDT, Dosing Weight Start Date: 07/02/24 Status: Ordered Start: 03-28-2024 take 42 ug nasal rou te twice daily ipratropium 21 mcg/inh (0.03%) nasal spray 42 mcg Dose = 2 spray(s), Nostril, each, BID, filling in lieu of pcp, # 1 EA, 0 Refill(s), Pharmacy: [facility], Allergic rhinitis, 166, cm, 03/13/24 15:36:00 EDT, Height, kg, 03/13/24 15:34:00 EDT, Dosing Weight Start Date: 03/28/24 Status: Ordered Start: 03-11-2024 End: 01-12-2025 take 1 spray(s) nasal route twice daily ipratropium (Atrovent) 0.03 % nasal spray Administer 1 spray into each nostril 2 times daily. 10/03/2024 Active Start: 10-23-2023 take 42 ug nasal rou te twice daily ipratropium 21 mcg/inh (0.03%) nasal spray 42 mcg Dose = 2 spray(s), Nostril, each, BID, # 1 EA, 1 Refill(s), Pharmacy: [facility], Allergic rhinitis, 166, cm, 10/23/23 13:09:00 EST, Height, kg, 10/23/23 13:09:00 EST, Dosing Weight Start Date: 10/23/23 Status: Ordered levothyroxine sodium 0.112 mg oral tablet (20 sources) l-Thyroxine Start: 11-03-2024 levothyroxine (Synthroid, Levoxyl) 112 MCG tablet Take by mouth every morning (before breakfast). 11/03/2024 Active Start: 06-10-2024 End: 01-12-2025 Levothyroxine 125 mcg tablet Discontinued 112 ug PO daily June 10, 2024 10:31am January 12, 2025 7:32pm Start: 03-13-2024 levothyroxine 112 mcg (0.112 mg) oral tablet Dose : 112 mcg = 1 tab(s), Oral, qDay, Discontinue levothyroxine 125 mcg prescription please. Take with liothyronine, # 90 tab(s), 1 Refill(s), Pharmacy: [facility], Hypothyroidism, 166, cm, 08/01/24 12:52:00 EST, [...] dosing, # 90 tab(s), 1 Refill(s), Pharmacy: [facility], Hypothyroidism, 166, cm, 10/23/23 13:09:00 EST, Height, kg, 10/23/23 13:09:00 EST, Dosing Weight Start Date: 10/23/23 Status: Ordered Start: 07-28-2023 End: 03-11-2024 take 1 tablet by mouth once daily Levothyroxine 112 mcg tablet Discontinued 112 ug PO DAILY July 28, 2023 12:00am March 11, 2024 3:00pm thyroid Start: 07-13-2023 levothyroxine 112 mcg (0.112 mg) oral tablet Dose : 112 mcg = 1 tab(s), Oral, qDay, Take 1 tablet by mouth daily except for Tuesdays and Fridays, # 90 tab(s), 1 Refill(s), Pharmacy: [facility] #[id number], Hypothyroidism, 165, cm, 07/13/23 14:08:00 EDT, Height, kg, 07/13/23 14:08:00 EDT, Dosing Weight Start Date: 07/13/23 Status: Ordered Start: 10-03-2022 levothyroxine 112 mcg (0.112 mg) oral tablet Dose : 112 mcg = 1 tab(s), Oral, qDay, # 90 tab(s), 1 Refill(s), Pharmacy: [facility] #[id number], Hypothyroidism, 166, cm, 12/26/22 10:59:00 EDT, Height, kg, 12/26/22 10:59:00 EDT, Dosing Weight Start Date: 12/27/22 Status: Ordered Start: 04-05-2022 levothyroxine 112 mcg (0.112 mg) oral tablet Dose : 112 mcg = 1 tab(s), Oral, qDay, # 90 tab(s), 1 Refill(s), Pharmacy: [facility], Hypothyroidism, 167, cm, 04/05/22 11:19:00 EDT, Height, kg, 04/05/22 11:19:00 EDT, Dosing Weight Start Date: 04/05/22 Status: Ordered Start: 10-06-2021 levothyroxine 112 mcg (0.112 mg) oral tablet Dose : 112 mcg = 1 tab(s), Oral, qDay, Increased dose, # 90 tab(s), 1 Refill(s), Pharmacy: [address], Hypothyroidism, 165, cm, 10/05/21 14:59:00 EST, Height, kg, 10/05/21 14:59:00 EST, Dosing Weight Start Date: 10/06/21 Status: Ordered Start: 03-14-2021 levothyroxine 100 mcg (0.1 mg) oral tablet Dose : 100 mcg = 1 tab(s), Oral, qDay, Increased dose, # 90 tab(s), 1 Refill(s), Pharmacy: [address], Hypothyroidism, 166, cm, 03/14/21 8:36:00 EDT, Height, kg, 03/14/21 8:36:00 EDT, Dosing Weight Start Date: 03/14/21 Status: Ordered Start: 07-26-2015 End: 07-28-2023 take 1 tablet by mouth once daily Levothyroxine 88 MCG tablet Discontinued 88 ug PO DAILY July 26, 2015 1:00am July 28, 2023 1:37am losartan potassium 100 mg oral tablet (9 sources) Angiotensin 2 Receptor Rahat Start: 01-12-2025 take 1 tablet by mouth once daily losartan (Cozaar) 100 MG tablet Take 100 mg by mouth daily. 01/12/2025 Active magnesium citrate 58.2 mg/ml oral solution (9 sources) Start: 01-12-2025 take 1 mL by mouth once as needed for constipation Magnesium Citrate Solution Active 300 mL PO ONE TIME as needed for Constipation 0 January 12, 2025 12:00am magnesium citrat e solution Take 300 mL by mouth as needed (constipation). Active magnesium hydroxide 80 mg/ml oral suspension (8 sources) take 30 mL by mouth once daily as needed for constipation magnesium hydroxide (Milk of Magnesia) 400 MG/5ML suspension Take 30 mL by mouth Nightly. Prn constipation Active Menthol / Zinc Oxide (1 source) Start: 01-13-20 Menthol-Zinc Oxide (Calmoseptine) 0.44-20.6 % Ointment Active 1 NMA TOPICAL 0600,1800 0 0 January 12, 2025 12:00am Please contact the information source for Protocol details. midodrine hydrochloride 5 mg oral tablet (2 sources) alpha-Adrenergic Agonist Start: 12-12-19 midodrine 5 mg oral tablet Dose : 5 mg = 1 tab(s), Oral, BID, # 60 tab(s), 3 Refill(s), Pharmacy: [facility] #[id number], 167.6, cm, 12/11/22 13:15:00 EDT, Height Start Date: 12/11/22 Status: Ordered Multivitamin preparation (10 sources) Start: 03-16-20 take 1 tablet by mouth once daily Multivitamin Dose = 1 tab(s), Oral, Daily, 0 Refill(s) Start Date: 03/16/20 Status: Ordered nystatin 100 unt/mg topical powder (1 source) Polyene Antifungal Start: 01-13-20 Nystatin (Njamy) 100,000 unit/gram Powder Active 1 NMA TOPICAL TWICE A DAY 0 0 January 12, 2025 12:00am Please contact the information source for Protocol details. ondansetron 4 mg oral tablet (7 sources) Serotonin-3 Receptor Antagonist Start: 06-30-20 ondansetron 4 mg oral tablet Dose : 4 mg = 1 tab(s), Oral, q8h, 0 Refill(s) Start Date: 06/30/21 Status: Ordered oxyCODONE hydrochloride 5 mg oral tablet (11 sources) Opioid Agonist Start: 01-13-20 take 1 tablet by mouth every four hours as needed for pain Oxycodone 5 mg Tablet Active 5 mg PO Q4H as needed for Pain Score 4-10 18 3 0 January 12, 2025 Closed transverse fracture of left patella Start: 12-11-2024 End: 01-12-2025 take 1 tablet by mouth every six hours as needed for pain Oxycodone 5 mg Tablet Discontinued 5 mg PO EVERY 6 HOURS NEEDED as needed for Pain Score 4-10 12 3 0 December 11, 2024 January 12, 2025 7:33pm Closed transverse fracture of left patella take 1 capsule by mo [facility] every four hours as needed for pain oxyCODONE (Oxy-IR) 5 MG immediate release capsule Take 5 mg by mouth every 4 hours as needed for severe pain (7-10). Active potassium chloride 20 meq or al tablet (9 sources) Start: 08-21-2023 End: 02-17-2024 Potassium Chloride (Eqv-K-Ta b) 20 mEq oral tablet, extended release Dose : 20 mEq = 1 tab(s), Oral, qDay, # 30 tab(s), 5 Refill(s), Pharmacy: [facility], Hypokalemia, 166, cm, 08/21/23 13:31:00 EST, Height, kg, 08/21/23 13:31:00 EST, Dosing Weight Start Date: 08/21/23 Stop Date: 02/17/24 Status: Ordered Start: 08-08-2023 End: 05-01-2024 Potassium Chloride (Klor-Con M20) 20 mEq Tablet,Er Particles/Crystals Discontinued 20 meq PO DAILY WITH MEALS 30 30 0 August 08, 2023 1:00am May 01, 2024 4:26pm sertraline 100 mg oral tablet (20 sources) Serotonin Reuptake Inhibitor Start: 11-06-2024 sertraline (Zoloft) 100 MG tablet Take 150 mg by mouth daily. 11/06/2024 Active Start: 03-11-2024 take 1 tablet by [facility] once daily Sertraline 100 mg tablet Active 100 mg PO daily March 11, 2024 12:00am Start: 01-30-2024 sertraline 100 mg oral tablet Dose : 100 mg = 1 tab(s), Oral, qDay, # 30 tab(s), 2 Refill(s), Pharmacy: [facility], Recurrent major depression, 166, cm, 01/30/24 13:48:00 EDT, Height, kg, 01/30/24 13:31:00 EDT, Dosing Weight Start Date: 01/30/24 Status: Ordered Start: 09-07-2023 sertraline 100 mg oral tablet Dose : 100 mg = 1 tab(s), Oral, qDay, Increased dose, # 30 tab(s), 2 Refill(s), Pharmacy: [facility], Recurrent major depression, 166, cm, [...] 90 tab(s), 3 Refill(s), Pharmacy: [facility] #[id number], Depression, 166, cm, 12/26/22 10:59:00 EDT, Height, kg, 12/26/22 10:59:00 EDT, Dosing Weight Start Date: 12/26/22 Status: Ordered Start: 04-05-2022 sertraline 100 mg oral tablet Dose : 100 mg = 1 tab(s), Oral, qDay, # 90 tab(s), 3 Refill(s), Pharmacy: [facility] Situational depression Panic disorder, 167, cm, 04/05/22 11:19:00 EDT, Height, kg, 04/05/22 11:19:00 EDT, Dosing Weight Start Date: 04/05/22 Status: Ordered Start: 03-14-2021 sertraline 100 mg oral tablet Dose : 100 mg = 1 tab(s), Oral, qDay, # 90 tab(s), 3 Refill(s), [facility]acy: [facility] Situational depression Panic disorder, 166, cm, 03/14/21 8:36:00 EDT, Height, kg, 03/14/21 8:36:00 EDT, Dosing Weight Start Date: 03/14/21 Status: Ordered Start: 07-26-2015 End: 08-08-2023 take 1 tablet by mouth once daily Sertraline (Zoloft) 25 MG tablet Discontinued 25 mg PO DAILY July 26, 2015 1:00am August 08, 2023 8:35pm mood On Hold: Resume on 08/08/23. simvastatin 20 mg oral tablet (1 source) HMG-CoA Reductase Inhibitor Start: 07-14-2022 simvastatin 20 mg oral tablet Dose : 20 mg = 1 tab(s), Oral, qHS, # 90 tab(s), 1 Refill(s), Pharmacy: [facility] #[id number], Hyperlipemia, mixed, 166, cm, 07/11/22 11:26:00 EDT, Height Start Date: 07/14/22 Status: Ordered tamsulosin hydrochloride 0.4 mg oral capsule (9 sources) alpha-Adrenergic Rahat Start: 01-12-2025 take 1 capsule by mouth once daily tamsulosin (Flomax) 0.4 MG 24 hr capsule Take 0.4 mg by mouth daily. 01/12/2025 Active Completed/Discontinued Medications Medication Drug Class(es) Dates Sig [...] 28, 2023 12:00am September 04, 2023 12:56pm bp Start: 12-28-2021 amLODIPine 5 m g oral tablet Dose : 5 mg = 1 tab(s), Oral, qDay, # 90 tab(s), 3 Refill(s), [facility]: [facility] [address] [facility] 165.5, cm, 12/06/21 8:32:00 EDT, Height, kg, 12/06/21 8:32:00 EDT, Dosing Weight Start Date: 12/28/21 Status: Ordered Start: 03-16-2021 amLODIPine 5 m g oral tablet Dose : 5 mg = 1 tab(s), Oral, qDay, # 90 tab(s), 3 Refill(s), Pharmacy: [facility] 166, cm, 03/16/21 10:55:00 EDT, Height, kg, 03/16/21 10:55:00 EDT, Dosing Weight Start Date: 03/16/21 Status: Ordered aspirin 81 mg delayed release oral tablet (19 sources) Platelet Aggregation Inhibitor, Nonsteroidal Anti-inflammatory Drug Start: 12-09-2024 End: 01-12-2025 take 1 tablet by mouth twice daily Aspirin 81 mg tablet,delayed release (DR/EC) Discontinued 81 mg PO TWICE A DAY December 09, 2024 12:00am January 12, 2025 7:31pm heart health Start: 09-04-2023 End: 01-12-2025 take 1 tablet by mouth once daily, then take 1 tablet by mouth once daily, then take 1 tablet by mouth twice daily Aspirin (Adult Aspirin Regimen) 81 mg tablet,delayed release (DR/EC) Discontinued 81 mg PO DAILY September 04, 2023 1:00am January 12, 2025 7:31pm On Hold: Resume on 12/23/24. hold as she is being put on PO aspirin 81mg bid x 2 weeks for DVT prophylaxis. To resume aspirin 81mg daily when she completes the course of PO aspirin 81mg bid x 2 weeks. atorvastatin 20 mg oral tablet (20 sources) HMG-CoA Reductase Inhibitor Start: 07-13-2023 End: 01-12-2025 take 1 tablet by mouth once daily Atorvastatin 20 mg tablet Discontinued 20 mg PO DAILY July 28, 2023 12:00am January 12, 2025 7:31pm hld biotin 1 mg oral capsule (20 sources) Start: 09-04-2023 End: 06-10-2024 take 1 capsule by mouth once daily Biotin 1 mg capsule Discontinued 1 mg PO DAILY September 04, 2023 1:00am June 10, 2024 10:32am Start: 03-16-2020 take 1 tablet by robinson th once daily biotin 1 tab, Oral, qDay, 0 Refill(s) Start Date: 03/16/20 Status: Ordered Calcium (4 sources) Phosphate Binder, Calcium Start: 09-04-2023 End: 01-12-2025 Bo-[id number]-Kux-Zylx-Qhk-Vqzi-Boro n (Caltrate 600-D Plus Minerals) 600 mg calcium- 800 unit-40 mg tablet,chewable Discontinued 1 {tbl} PO TWICE A DAY September 04, 2023 1:00am January 12, 2025 7:32pm Start: 09-04-2023 Sv-V9-Avc-Zinc -Dfl-Fqmc-Bmsyx (Caltrate 600-D Plus Minerals) 600 mg calcium- 800 unit-40 mg tablet,chewable Active 1 {tbl} PO TWICE A DAY September 04, 2023 1:00am Start: 09-04-2023 take 1 tablet by robinson twice daily Ey-[id number]-Tux-Hgzc-Ssm-Dfuk-Childress (Caltrate 600-D Plus Minerals) 600 mg calcium- 800 unit-40 mg tablet,chewable Active 1 TABLET PO TWICE A DAY September 04, 2023 12:00am furosemide 40 mg oral tablet (20 sources) Loop Diuretic Start: 03-11-2024 End: 05-01-2024 take 1 tablet by mouth once daily Furosemide 40 mg tablet Discontinued 40 mg PO DAILY 90 3 March 11, 2024 12:00am May 01, 2024 4:26pm On Hold: Severe dizziness Start: 07-26-2015 End: 03-11-2024 take 1 tablet by mouth once daily Furosemide 20 mg Tablet Discontinued 20 mg PO DAILY 30 30 0 August 08, 2023 1:00am March 11, 2024 3:25pm hydroCHLOROthiazide 25 mg oral tablet (20 sources) Thiazide Diuretic Start: 08-30-2023 End: 08-30-2023 take 1 tablet by mouth once daily Hydrochlorothiazide 25 mg tablet Discontinued 25 mg PO DAILY August 30, 2023 1:00am August 30, 2023 1:11pm Start: 12-11-2022 hydroCHLOROthi azide 25 mg oral tablet Dose : 25 mg = 1 tab(s), Oral, qDay, # 90 tab(s), 3 Refill(s), Pharmacy: [facility] #[id number], 167.6, cm, 12/11/22 13:15:00 EDT, Height, kg, 12/11/22 13:15:00 EDT, Dosing Weight Start Date: 12/11/22 Status: Ordered Start: 01-10-2022 hydroCHLOROthi azide 25 mg oral tablet Dose : 25 mg = 1 tab(s), Oral, qDay, # 90 tab(s), 3 Refill(s), Pharmacy: [facility] 165.5, cm, 12/06/21 8:32:00 EDT, Height Start Date: 01/10/22 Status: Ordered Start: 06-21-2021 hydroCHLOROthi azide 50 mg oral tablet Dose : 25 mg = 0.5 tab(s), Oral, qDay, # 30 tab(s), 3 Refill(s), Pharmacy: [facility] 167.7, cm, 06/21/21 14:51:00 EDT, Height, kg, 06/21/21 14:51:00 EDT, Dosing Weight Start Date: 06/21/21 Status: Ordered hydroCHLOROthiazide 25 mg / valsartan 320 mg oral tablet (6 sources) Thiazide Diuretic, Angiotensin 2 Receptor Rahat Start: 07-26-2015 End: 07-30-2023 take 1 tablet by mouth once daily Valsartan/Hydrochlorothiazide (Diovan Hct 320-25 Mg Tablet) 1 TABLET tablet Discontinued 1 {tbl} PO DAILY July 26, 2015 1:00am July 30, 2023 8:13am levocetirizine dihydrochloride 5 mg oral tablet (14 sources) Histamine-1 Receptor Antagonist Start: 03-11-2024 End: 01-12-2025 take 1 tablet by mouth once daily Levocetirizine 5 mg tablet Discontinued 5 mg PO daily March 11, 2024 12:00am January 12, 2025 7:32pm Start: 10-23-2023 Xyzal 5 mg ora l tablet Dose : 5 mg = 1 tab(s), Oral, qPM, # 90 tab(s), 1 Refill(s), Pharmacy: [facility], Allergic rhinitis, 166, cm, 10/23/23 13:09:00 EST, Height, kg, 10/23/23 13:09:00 EST, Dosing Weight Start Date: 10/23/23 Status: Ordered liothyronine sodium 0.005 mg oral tablet (9 sources) l-Triiodothyronine Start: 12-04-2024 End: 01-12-2025 take 1 tablet by mouth once daily Liothyronine 5 mcg tablet Discontinued 5 ug PO daily December 04, 2024 12:00am January 12, 2025 7:33pm Start: 03-13-2024 liothyronine 5 mcg oral tablet Dose : 5 mcg = 1 tab(s), Oral, qDay, Take with levothyroxine, # 90 tab(s), 1 Refill(s), Pharmacy: [facility], Hypothyroidism, 166, cm, 08/01/24 12:52:00 EST, Height, kg, 08/01/24 12:39:00 EST, Dosing Weight Start Date: 08/01/24 Status: Ordered meclizine hydrochloride 25 mg oral tablet (20 sources) Antiemetic Start: 12-09-2024 End: 01-12-2025 take 1 tablet by mouth three times daily Meclizine 25 mg Tablet Discontinued 25 mg PO THREE TIMES A DAY 90 2 December 09, 2024 12:00am January 12, 2025 7:33pm vertigo Start: 01-30-2024 meclizine 25 m g oral tablet Dose : 25 mg = 1 tab(s), Oral, TID, PRN as needed for dizziness, # 90 tab(s), 1 Refill(s), Pharmacy: [facility], Vertigo Dizziness, 166, cm, 08/01/24 12:52:00 EST, Height, kg, 08/01/24 12:39:00 EST, Dosing Weight Start Date: 08/01/24 Status: Ordered Start: 09-06-2022 End: 12-06-2024 take 1 tablet by mouth three times daily as needed Meclizine 12.5 mg tablet Discontinued 12.5 mg PO 3 TIMES DAILY NEEDED July 28, 2023 12:00am December 06, 2024 6:58pm dizzy Start: 06-21-2021 End: 10-29-2022 meclizine 12.5 mg oral table t Dose : 12.5 mg = 1 tab(s), Oral, TID, PRN as needed for dizziness, X 30 day(s), # 60 tab(s), 11 Refill(s), 07/22/22 14:27:00 EDT, [facility] [address] 166.4, cm, 07/27/21 13:50:00 EDT, Height, kg, 07/27/21 13:50:00 EDT, Dosing Weight Start Date: 07/27/21 Stop Date: 07/22/22 Status: Ordered meloxicam 15 mg oral tablet (20 sources) Nonsteroidal Anti-inflammatory Drug Start: 08-08-2023 End: 12-09-2024 take 1 tablet by mouth once daily Meloxicam 15 mg Tablet Discontinued 15 mg PO DAILY 0 0 August 08, 2023 1:00am December 09, 2024 10:57am Start: 03-21-2023 End: 07-30-2023 take 1 tablet by mouth once daily Meloxicam 15 mg tablet Discontinued 15 mg PO DAILY July 28, 2023 12:00am July 30, 2023 8:14am pain Start: 07-11-2022 meloxicam 15 m g oral tablet Dose : 15 mg = 1 tab(s), Oral, qDay, Take with food/milk, # 90 tab(s), 1 Refill(s), Pharmacy: [facility] #[id number], Bilateral shoulder pain Right knee pain, 166, cm, 07/11/22 11:26:00 EDT, Height, kg, 07/11/22 11:26:00 EDT, Dosing Weight Start Date: 07/11/22 Status: Ordered Start: 04-05-2022 meloxicam 15 m g oral tablet Dose : 15 mg = 1 tab(s), Oral, qDay, Take with food/milk, # 90 tab(s), 1 Refill(s), [facility] [address] Bilateral shoulder pain Right knee pain, 167, cm, 04/05/22 11:19:00 EDT, Height, kg, 04/05/22 11:19:00 EDT, Dosing Weight Start Date: 04/05/22 Status: Ordered Start: 12-06-2021 meloxicam 15 m g oral tablet Dose : 15 mg = 1 tab(s), Oral, qDay, Take with food/milk, # 30 tab(s), 1 Refill(s), [facility] [address] Bilateral shoulder pain Right knee pain, 165.5, cm, 12/06/21 8:32:00 EDT, Height, kg, 12/06/21 8:32:00 EDT, Dosing Weight Start Date: 12/06/21 Status: Ordered metoprolol tartrate 50 mg oral tablet (3 sources) beta-Adrenergic Rahat Start: 12-04-2024 End: 12-11-2024 take 1 tablet by mouth twice daily Metoprolol Tartrate 50 mg tablet Discontinued 50 mg PO TWICE A DAY 180 December 04, 2024 12:00am December 11, 2024 10:58am olmesartan medoxomil 40 mg oral tablet (20 sources) Angiotensin 2 Receptor Rahat Start: 03-20-2023 End: 01-12-2025 take 1 tablet by mouth once daily Olmesartan 40 mg tablet Discontinued 40 mg PO DAILY 90 October 25, 2023 1:38pm January 12, 2025 7:33pm see md Start: 12-11-2022 olmesartan 40 mg oral tablet Dose : 40 mg = 1 tab(s), Oral, qDay, # 90 tab(s), 3 Refill(s), Pharmacy: [facility] #[id number], 167.6, cm, 12/11/22 13:15:00 EDT, Height, kg, 12/11/22 13:15:00 EDT, Dosing Weight Start Date: 12/11/22 Status: Ordered Start: 03-01-2022 olmesartan 40 mg oral tablet Dose : 40 mg = 1 tab(s), Oral, qDay, # 90 tab(s), 3 Refill(s), [facility] [address] 165.5, cm, 03/01/22 13:04:00 EDT, Height, kg, 03/01/22 13:04:00 EDT, Dosing Weight Start Date: 03/01/22 Status: Ordered Start: 12-09-2021 olmesartan 40 mg oral tablet Dose : 40 mg = 1 tab(s), Oral, qDay, # 30 tab(s), 5 Refill(s), [facility]: [facility] 165.5, cm, 12/06/21 8:32:00 EDT, Height, kg, 12/06/21 8:32:00 EDT, Dosing Weight Start Date: 12/09/21 Status: Ordered Start: 06-21-2021 olmesartan 40 mg oral tablet Dose : 40 mg = 1 tab(s), Oral, qDay, # 30 tab(s), 5 Refill(s), [facility]acy: [facility] 167.7, cm, 06/21/21 14:51:00 EDT, Height, kg, 06/21/21 14:51:00 EDT, Dosing Weight Start Date: 06/21/21 Status: Ordered sodium chloride 1000 mg oral tablet (20 sources) Start: 12-11-2024 End: 01-12-2025 take 2 tablets by mouth three times daily Sodium Chloride 1,000 mg Tablet,Soluble Discontinued 2000 mg PO THREE TIMES A DAY 180 30 0 December 11, 2024 12:00am January 12, 2025 7:34pm salt Start: 07-31-2023 End: 12-11-2024 take 1 tablet by mouth twice daily Sodium Chloride 1,000 mg tablet,soluble Discontinued 1000 mg PO TWICE A DAY 60 0 July 31, 2023 2:59pm December 11, 2024 10:59am supplement Start: 07-04-2023 End: 07-28-2024 take 1 tablet [...] Saturdays, # 120 tab(s), 1 Refill(s), [facility]acy: [facility] #[id number], Hyponatremia, 166, cm, 12/26/22 10:59:00 EDT, Height, kg, 12/26/22 10:59:00 EDT, Dosing We... Start Date: 12/27/22 Stop Date: 06/25/23 Status: Ordered spironolactone 25 mg oral tablet (9 sources) Aldosterone Antagonist Start: 05-01-2024 End: 12-11-2024 take 1 tablet by mouth once daily Spironolactone 25 mg tablet Discontinued 25 mg PO DAILY 90 3 December 04, 2024 3:47pm December 11, 2024 [...] Prophylaxis traMADol hydrochloride 50 mg oral tablet (13 sources) Opioid Agonist Start: 08-08-2023 End: 12-04-2024 take 1 tablet by mouth every six hours as needed for pain Tramadol 50 mg Tablet Discontinued 50 mg PO EVERY 6 HOURS NEEDED as needed for Pain Score 6-10 28 7 0 August 08, 2023 1:00am December 04, 2024 2:55pm traMADol HCl 25 MG tablet Take by mouth. As directed Active vitamin b12 1 mg oral capsule (20 sources) Vitamin B12 Start: 09-04-2023 End: 01-12-2025 take 1 capsule by mouth every month Cyanocobalamin (Vitamin B-12) 1,000 mcg capsule Discontinued 1000 ug PO EVERY MONTH September 04, 2023 1:00am January 12, 2025 7:32pm pt takes once a month at primary [...] deficiency Start Date: 04/23/23 Status: Ordered Problems Active Problems Problem Classification Problem Date Documented Da te Episodic/Chronic Anxiety disorders (20 sources) Panic disorder; Translations: [Anxiety] 07-25-2019 Chronic Cardiac dysrhythmias (20 sources) Ventricular premature beats; Translations: [Multiple premature ventricular complexes] Onset: 11-04-2024 07-27-2021 Chronic Coronary atherosclerosis and other heart disease (20 sources) Coronary arteriosclerosis; Translations: [Atherosclerotic heart disease of [place] coronary artery without angina pectoris] Onset: 12-04-2024 09-15-2020 Chronic Disorders of lipid metabolism (20 sources) Mixed hyperlipidemia; Translations: [Pure hypercholesterolemia ] 09-15-2020 Chronic E Codes: Fall (1 source) Fall; Translations: [Unspecified fall, initial encounter] 05-03-2025 Episodic Essential hypertension (20 sources) Essential hypertension; Translations: [Essential (primary) hypertension] Onset: 12-04-2023 07-25-2019 Chronic Genitourinary symptoms and ill-defined conditions (8 sources) Retention of urine; Translations: [Retention of [...] deficiency 05-08-2023 Episodic Open wounds of extremities (5 sources) Laceration of right hand; Translations: [Laceration without foreign body of right hand, initial encounter] 12-06-2024 Episodic Open wounds of head; neck; and trunk (5 sources) Laceration of lip ; Translations: [Laceration without foreign body of lip, initial encounter] 12-06-2024 Episodic Osteoarthritis (7 sources) Osteoarthritis; Translations: [Unspecified osteoarthritis, unspecified site] 07-31-2023 Chronic Other aftercare (16 sources) Post-discharge follow-up 08-21-2023 Episodic Other aftercare (1 source) Drug monitoring done; Translations: [Encounter for therapeutic drug level monitoring] Episodic Other aftercare (1 source) Long-term current use of drug therapy; Translations: [Other molder (current) drug therapy] Episodic Other aftercare (3 sources) Long-term current use of diuretic; Translations: [Encounter for therapeutic drug level monitoring] 05-01-2024 Episodic Other and ill-defined heart disease (1 source) Heart disease; Translations: [Other ill-defined heart diseases] Chronic Other and ill-defined heart disease (7 sources) Diastolic dysfunction; Translations: [Other ill-defined heart diseases] 03-11-2024 Chronic Other and ill-defined heart disease (1 source) Other ill-defined heart diseases; Translations: [Other ill-defined heart diseases] Onset: 12-04-2024 Chronic Other circulatory disease (2 sources) Orthostatic hypotension; Translations: [Orthostatic hypotension] 12-11-2024 Episodic Other connective tissue disease (1 source) Cramp [...] legs; Translations: [Restless legs syndrome] Chronic Other injuries and conditions due to external causes (1 source) Closed injury of head; Translations: [Unspecified injury of head, initial encounter] 05-03-2025 Episodic Other injuries and conditions due to external causes (1 source) Encounter for examination and observation following other accident; Translations: [Encounter for examination and observation following other accident] Onset: 05-06-2025 Episodic Other lower respiratory disease (20 sources) Dyspnea; Translations: [Shortness of breath] 08-24-2020 Episodic Other lower respiratory disease (1 source) Desaturation of blood 10-29-2024 Episodic Other nervous system disorders (5 sources) Unable to walk; Translations: [Difficulty in [...] but less than 30 06-10-2024 Episodic Other upper respiratory disease (20 sources) Allergic rhinitis; Translations: [Allergic rhinitis, unspecified] 07-25-2019 Chronic Other upper respiratory infections (20 [...] Translations: [Localized edema] Episodic Residual codes; unclassified (3 sources) Peripheral edema; Translations: [Localized edema] 03-11-2024 Episodic Respiratory failure; insufficiency; arrest (adult) (1 source) Patient on oxygen 10-29-2024 Chronic Sprains and strains (1 source) Strain of back muscle; Translations: [Strain of muscle, fascia and tendon of lower back, initial encounter] 05-03-2025 Episodic Superficial injury; contusion (6 sources) Contusion of face; Translations: [Contusion of other part of head, initial encounter] 12-06-2024 Episodic Thyroid disorders (20 sources) Hypothyroidism; Translations: [Hypothyroidism, unspecified] 03-16-2020 Chronic Unclassified (20 sources) Patient encounter status 07-29-2019 Unclassified (20 sources) Never used tobacco 12-26-2022 Unclassified (12 sources) Influenza vaccination declined 12-04-2023 Unclassified (1 source) Will see MEKHI White Unclassified (2 sources) Other ventricular tachycardia; Translations: [Other ventricular tachycardia] Onset: 12-04-2024 Viral infection (20 sources) Disease caused by 2019-nCoV; Translations: [COVID-19] 07-27-2023 Episodic Past or Other Problems Problem Classification Problem Date Documented Da te Episodic/Chronic Cardiac dysrhythmias (4 sources) Palpitations; Translations: [Palpitations] Onset: 11-04-2024 03-11-2024 Episodic Conditions associated with dizziness or vertigo (20 sources) Dizziness; Translations: [Lightheadedness] Onset: 12-04-2024 06-21-2021 Episodic Fluid and electrolyte disorders (20 sources) Hyponatremia; Translations: [Hypo-osmolality and hyponatremia] Onset: 12-04-2023 04-05-2022 Episodic Fracture of lower limb (14 sources) Closed fracture of patella; Translations: [Unspecified fracture of left patella, initial encounter for closed fracture] Onset: 12-19-2024 12-06-2024 Episodic Malaise and fatigue (20 sources) Fatigue; Translations: [Asthenia] Onset: 07-24-2023 07-24-2023 Episodic Other connective tissue disease (2 sources) Myalgia, unspecified site; Translations: [Myalgia, unspecified site] Onset: 07-24-2023 Episodic Other lower respiratory disease (1 source) Shortness of breath; Translations: [Shortness of breath] Onset: 11-04-2024 Episodic Other screening for suspected conditions (not mental disorders or infectious disease) (20 sources) Viral screening status; Translations: [Raised cardiac enzyme or marker] Onset: 12-19-2024 07-11-2022 Episodic Syncope (13 sources) Syncope; Translations: [Syncope and collapse] Onset: 11-04-2024 12-06-2024 Episodic Results Test Name Value Interpretation Reference Range Facility Urine Cultureon 07-12-2025 URC Normal [facility] Comment on above: Performed By: #### M 100.2200, L400.0001 ####[facility] [address] [place], [address] Urinalysis, Completeon 07-09 RBC 0-5 SEEN Normal 0-5 [facility] Comment on above: Order Comment: TREVOR TER SPECIMEN Performed By: #### M 100.2200, L400.0001 ####[facility] [address] [place], [address] WBC 0-5 SEEN Normal 0-5 [facility] Comment on above: Order Comment: TREVOR TER SPECIMEN Performed By: #### M 100.2200, L400.0001 ####[facility] [address] [place], [address] BACTERIA 3+ /hpf Normal None Seen [facility] Comment on above: Order Comment: TREVOR TER SPECIMEN Performed By: #### M 100.2200, L400.0001 ####[facility] [address] [place], [address] EPI,SQUAMOUS 0 SEEN Normal 5-10 [facility] Comment on above: Order Comment: TREVOR TER SPECIMEN Performed By: #### M 100.2200, L400.0001 ####[facility] [address] [place], [address] Mucus Ql (Urine sed) 0 SEEN Normal [facility] Comment on above: Order Comment: TREVOR TER SPECIMEN Performed By: #### M 100.2200, L400.0001 ####[facility] [address] [place], [address] 36on 05-19-2025 36 Faxed cath order to [facility] for pt. [facility] 36 Okay to provide standard letter. Changes every 4-6 weeks. Irrigation daily and as needed. The flushing should be done using the aspiration technique to actually remove the sediment. If patient tolerates, they could try a 20 beninese to help with sediment. Diagnosis: Neurogenic bladder: N31.9 [facility] 36on 05-18-2025 36 Name of caller: Osito gonzales LPN Contact phone number: [phone] Relationship to Patient: [facility] Provider: Dr Georges Practice: Urology Chief Complaint/Reason for Call: Laura from [facility] called to request orders for Catheter. They have been frequently changing cath approximately 5-7 times a month. She now has a 18 beninese with irrigation daily. Pt still has leaking from the insertion. Nurses are asking if flush should be done with aspiration or gravity return? Or if a void trial can be initiated. Please send order to advise. New Dx needed from Cystoscopy other than urinary retention. Seeking Obstructive neuropathy; Neurogenic bladder or other Dx. Pt may also be experiencing bladder spasms. Best time of day caller can be reached: Any Patient advised that office/PCP has 24-48 business hours to return their call: Yes [facility] 36on 05-04-2025 36 Call placed to facility . Pt returned to facility with catheter in place from 03/02 appointment . NGB diagnosis provided to facility for justification of catheter [place] [address] Name of caller: Oswaldo calrton LPN Contact phone number: [phone] Relationship to Patient: [facility] Provider: Dr Georges Practice: Urology Chief Complaint/Reason for Call: Amie HOYOS from [facility] is still in need of Dx for catheter placement for pt. This is a medicare/medicaid facility and Dx of neurogenic or obstructive, reflux, neopathy bladder is required. Please call or fax [phone] to advise of Dx for catheter placement. Best time of day caller can be reached: Any Patient advised that office/PCP has 24-48 business hours to return their call: Yes Normal [facility] Brain/Head without Contrasto n 05-03-2025 Brain/Head without Contrast Normal [facility] CT Chest, Abd, Pelvis WO Con ton 05-03-2025 CT Chest, Abd, Pelvis WO Cont Normal [facility] Emergency Department Summary on 05-03-2025 Emergency Department Summary Normal [facility] Hand Min 3 Viewson Hand Min 3 Views Normal [facility] Spine Cervical without Contr ason 05-03-2025 Spine Cervical without Contras Normal [facility] 36on 04-21-2025 36 Name of caller: Oswaldo carlton Contact phone number: [phone] Relationship to Patient: [facility] Provider: Dr. Georges Practice: Urology Chief Complaint/Reason for Call: Amie called advising for a diagnose for the catheter patient has in so they can noted on their end for the reason. Please call Amie back and advise. Best time of day caller can be reached: any Patient advised that office/PCP has 24-48 business hours to return their call: N/A Normal [facility] Anion gap in Serum or Plasma Ordered By: Gene Duenas on 04-09-2025 Anion gap [Moles/Vol] 12 mmol/L 02-05 [facility] BUN/creatinine ratioOrdered By: Gene Duenas on 04-09-2025 Urea nitrogen/Creatinine [Mass ratio] 19.7 mg/mg 07-13 [facility] Basic Metabolic Profile (BMP )on 04-09-2025 BUN/CRE 19.7 RATIO Normal 07-13 [facility] Comment on above: Order Comment: 301.1 Performed By: #### L 500.2500, L100.0500 ####[facility] [address] [place], [address] Calcium [Mass/Vol] 9.5 mg/dL Normal 7.6-11.0 [facility] Comment on above: Order Comment: 301.1 Performed By: #### L 500.2500, L100.0500 ####[facility] [address] [place], [address] Chloride [Moles/Vol] 101 mmol/L Normal 98-108 [facility] Comment on above: Order Comment: 301.1 Performed By: #### L 500.2500, L100.0500 ####[facility] [address] [place], [address] CO2 [Moles/Vol] 24.4 mmol/L Normal 21.0-32.0 [facility] Comment on above: Order Comment: 301.1 Performed By: #### L 500.2500, L100.0500 ####[facility] [address] [place], [address] Creatinine [Mass/Vol] 0.60 mg/dL Low 0.70-1.20 [facility] Comment on above: Order Comment: 301.1 Performed By: #### L 500.2500, L100.0500 ####[facility] [address] [place], [address] GAP 12 Normal 5-15 [facility] Comment on above: Order Comment: 301.1 Performed By: #### L 500.2500, L100.0500 ####[facility] [address] [place], [address] GFR/1.73 sq M.predicted among non-blacks MDRD (S/P/Bld) [Vol rate/Area] 90 mL/min/{1.73_m2} Normal >60 [facility] Comment on above: Order Comment: 301.1 Result Comment: mL/m in/1.73m2 CKD-EPI Creatinine Equation (2020) Performed By: #### L 500.2500, L100.0500 ####[facility] [address] [place], [address] Glucose [Mass/Vol] 87 mg/dL Normal 70-99 [facility] Comment on above: Order Comment: 301.1 Performed By: #### L 500.2500, L100.0500 ####[facility] [address] [place], [address] Potassium [Moles/Vol] 3.6 mmol/L Normal 3.3-5.1 [facility] Comment on above: Order Comment: 301.1 Performed By: #### L 500.2500, L100.0500 ####[facility] [address] [place], [address] Sodium [Moles/Vol] 138 mmol/L Normal 133-145 [facility] Comment on above: Order Comment: 301.1 Performed By: #### L 500.2500, L100.0500 ####[facility] [address] [place], [address] Urea nitrogen [Mass/Vol] 12 mg/dL Normal 4-19 [facility] Comment on above: Order Comment: 301.1 Performed By: #### L 500.2500, L100.0500 ####[facility] [address] [place], [address] CBC-Complete Blood Cnt No Di ffon 04-09-2025 Erythrocyte distribution width (RBC) [Ratio] 13.9 % Normal 11.6-14.6 [facility] Comment on above: Order Comment: 301.1 Performed By: #### L 500.2500, L100.0500 ####[facility] [address] [place], [address] Hematocrit (Bld) [Volume fraction] 35.0 % Low 37-47 [facility] Comment on above: Order Comment: 301.1 Performed By: #### L 500.2500, L100.0500 ####[facility] [address], [address] Hemoglobin (Bld) [Mass/Vol] 11.8 g/dL Low 12.0-15.0 [facility] Comment on above: Order Comment: 301.1 Performed By: #### L 500.2500, L100.0500 ####[facility] [address] [place], [address] MCH (RBC) [Entitic mass] 29.5 pg Normal 27.0-32.0 [facility] Comment on above: Order Comment: 301.1 Performed By: #### L 500.2500, L100.0500 ####[facility] [address] [place], [address] MCHC (RBC) [Mass/Vol] 33.7 g/dL Normal 32-36 [facility] Comment on above: Order Comment: 301.1 Performed By: #### L 500.2500, L100.0500 ####[facility] [address] [place], [address] MCV (RBC) [Entitic vol] 87.5 fL Normal 81-99 [facility] Comment on above: Order Comment: 301.1 Performed By: #### L 500.2500, L100.0500 ####[facility] [address] [place], [address] Platelet mean volume (Bld) [Entitic vol] 9.5 fL Normal 6.2-12.0 [facility] Comment on above: Order Comment: 301.1 Performed By: #### L 500.2500, L100.0500 ####[facility] [address] [place], [address] Platelets (Bld) [#/Vol] 299 10*3/uL Normal 150-450 [facility] Comment on above: Order Comment: 301.1 Performed By: #### L 500.2500, L100.0500 ####[facility] [address] [place], [address] RBC (Bld) [#/Vol] 4.00 10*6/uL Low 4.2-5.4 [facility] Comment on above: Order Comment: 301.1 Performed By: #### L 500.2500, L100.0500 ####[facility] [address] [place], [address] RDW SD 44.7 fl High 35.1-43.9 [facility] Comment on above: Order Comment: 301.1 Performed By: #### L 500.2500, L100.0500 ####[facility] [address] [place], [address] WBC (Bld) [#/Vol] 5.3 10*3/uL Normal 4.4-11.0 [facility] Comment on above: Order Comment: 301.1 Performed By: #### L 500.2500, L100.0500 ####[facility] [address] [place], [address] Carbon dioxide, total [Moles /volume] in Central venous bloodOrdered By: Gene Duenas on 04-09-2025 CO2 [Moles/Vol] 24.4 mmol/L 21.0-32.0 [facility] Chloride assayOrdered By: Tatum on 04-09-2025 Chloride [Moles/Vol] 101 mmol/L 98-108 [facility] Erythrocyte distribution wid th ratioOrdered By: Gene Duenas on 04-09-2025 Erythrocyte distribution width (RBC) [Ratio] 13.9 % 11.6-14.6 [facility] Erythrocyte distribution wid th standard deviationOrdered By: Gene Duenas on 04-09-2025 Erythrocyte distribution width (RBC) [Ratio] 44.7 fl High 35.1-43.9 [facility] Glomerular filtration rate ( GFR) estimation/1.73 sq m using serum, plasma, or whole bOrdered By: Gene Duenas on 04-09-2025 GFR/1.73 sq M.predicted among non-blacks MDRD (S/P/Bld) [Vol rate/Area] 90 mL/min/{1.73_m2} >60 [facility] Comment on above: mL/min/1.73m2 CKD-EP I Creatinine Equation (2020) Hematocrit Auto (Bld) [Volum e fraction]Ordered By: Gene Duenas on 04-09-2025 Hematocrit (Bld) [Volume fraction] 35.0 % Low 37-47 [facility] Hemoglobin measurementOrdere d By: Gene Duenas on 04-09-2025 Hemoglobin (Bld) [Mass/Vol] 11.8 g/dL Low 12.0-15.0 [facility] MCV (mean corpuscular volume ) determinationOrdered By: Gene Duenas on 04-09-2025 MCV (RBC) [Entitic vol] 87.5 fL 81-99 [facility] Mean corpuscular hemoglobin (MCH) determinationOrdered By: Gene Duenas on 04-09-2025 MCH (RBC) [Entitic mass] 29.5 pg 27.0-32.0 [facility] Mean corpuscular hemoglobin concentration (MCHC) determinationOrdered By: Gene Duenas on 04-09-2025 MCHC (RBC) [Mass/Vol] 33.7 g/dL 32-36 [facility] Mean platelet volume determi nationOrdered By: Gene Duenas on 04-09-2025 Platelet mean volume (Bld) [Entitic vol] 9.5 fL 6.2-12.0 [facility] Platelet countOrdered By: Tatum on 04-09-2025 Platelets (Bld) [#/Vol] 299 10*3/uL 150-450 [facility] Potassium measurement (mass/ volume)Ordered By: Gene Duenas on 04-09-2025 Potassium (Unsp spec) [Mass/Vol] 3.6 mmol/L 3.3-5.1 [facility] RBC Auto (Bld) [#/Vol]Ordere d By: Gene Duenas on 04-09-2025 RBC (Bld) [#/Vol] 4.00 10*6/uL Low 4.2-5.4 [facility] Serum creatinine measurement (mass/volume)Ordered By: Gene Duenas on 04-09-2025 Creatinine [Mass/Vol] 0.60 mg/dL Low 0.70-1.20 [facility] Serum glucose measurement (m ass/volume)Ordered By: Gene Duenas on 04-09-2025 Glucose [Mass/Vol] 87 mg/dL 70-99 [facility] Serum or plasma calcium cindy urement (mass/volume)Ordered By: Gene Duenas on 04-09-2025 Calcium [Mass/Vol] 9.5 mg/dL 7.6-11.0 [facility] Serum or plasma urea nitroge n measurement (mass/volume)Ordered By: Gene Duenas on 04-09-2025 Urea nitrogen [Mass/Vol] 12 mg/dL 4-19 [facility] Sodium levelOrdered By: Gene Duenas on 04-09-2025 Sodium [Moles/Vol] 138 mmol/L 133-145 [facility] White blood cell (WBC) count Ordered By: Gene Duenas on 04-09-2025 WBC (Bld) [#/Vol] 5.3 10*3/uL 4.4-11.0 [facility] Progress Noteon 03-02-2025 Progress Note Victoriano Fountain [...] : Labs: WBC No results found for: "WBC" BMP No results found for: "NA", "K", "CL", "CO2", "BUN", "CREATININE", "GLUCOSE", "CALCIUM" PSA No results found for: "PSA" UANo results found for: "APPEARANCE", "COLORU", "LABSPEC", "LABPH", "URINE", "GLUCOSEU", "UROBILINOGEN", "BILIRUBINUR", "OCBU" Review: had cysto today ( normal) . [...] [3] No family history on file. Normal [facility] Urine Cultureon 02-20-2025 URC Normal [facility] Comment on above: Performed By: #### M 100.2200, L400.0001 ####[facility] [address] [place], [place], [id number] Absolute lymphocyte countOrd ered By: Gene Duenas on 02-18-2025 Lymphocytes Auto (Unsp spec) [#/Vol] 1.14 10*3/uL 0.83-4.51 [facility] Absolute neutrophil countOrd ered By: Gene Duenas on 02-18-2025 Neutrophils (Bld) [#/Vol] 3.6 10*3/uL 2.0-7.7 [facility] Anion gap in Serum or Plasma Ordered By: Gene Duenas on 02-18-2025 Anion gap [Moles/Vol] 11 mmol/L 5-15 [facility] Automated lymphocyte count a s percentage of total leukocytesOrdered By: Gene Duenas on 02-18-2025 Lymphocytes/100 WBC Auto (Unsp spec) 20.9 % 19-41 [facility] BUN/creatinine ratioOrdered By: Gene Duenas on 02-18-2025 Urea nitrogen/Creatinine [Mass ratio] 37.3 mg/mg High 10-20 [facility] Basophil percentageOrdered B y: Gene Duenas on 02-18-2025 Basophils/100 WBC (Bld) 0.4 % 0-1 [facility] Bilirubin Test strip Ql (U)O rdered By: Gene Duenas on 02-18-2025 Bilirubin Ql (U) Negative Negative [facility] Bilirubin, totalOrdered By: Gene Duenas on 02-18-2025 Bilirubin [Mass/Vol] 0.24 mg/dL 0.00-1.30 [facility] CBC W/Diff, Automatedon 01-23 Absolute Lymph 1.14 X10 3/uL Normal 0.83-4.51 [facility] Comment on above: Order Comment: 301-1 Performed By: #### L 500.4050, L100.0100 ####[facility] [address] [place], [address] Absolute Neut 3.6 X10 3/uL Normal 2.0-7.7 [facility] Comment on above: Order Comment: 301-1 Performed By: #### L 500.4050, L100.0100 ####[facility] [address] [place], [address] Basophils/100 WBC (Bld) 0.4 % Normal 0-1 [facility] Comment on above: Order Comment: 301-1 Performed By: #### L 500.4050, L100.0100 ####[facility] [address] [place], [address] Eosinophils/100 WBC (Bld) 4.0 % Normal 0-5 [facility] Comment on above: Order Comment: 301-1 Performed By: #### L 500.4050, L100.0100 ####[facility] [address] [place], [address] Erythrocyte distribution width (RBC) [Ratio] 13.0 % Normal 11.6-14.6 [facility] Comment on above: Order Comment: 301-1 Performed By: #### L 500.4050, L100.0100 ####[facility] [address] [place], [address] Hematocrit (Bld) [Volume fraction] 34.1 % Low 37-47 [facility] Comment on above: Order Comment: 301-1 Performed By: #### L 500.4050, L100.0100 ####[facility] [address] [place], [address] Hemoglobin (Bld) [Mass/Vol] 11.2 g/dL Low 12.0-15.0 [facility] Comment on above: Order Comment: 301-1 Performed By: #### L 500.4050, L100.0100 ####[facility] [address] [place], [address] IG% 0.500 Normal 0.0-0.9 [facility] Comment on above: Order Comment: 301-1 Result Comment: IG% - Immature Granulocytes (promyelocytes, myelocytes andmetamyelocytes) > 1% indicates that a LEFT SHIFT is Present. Performed By: #### L 500.4050, L100.0100 ####[facility] [address] [place], [address] Lymphocytes/100 WBC (Bld) 20.9 % Normal 19-41 [facility] Comment on above: Order Comment: 301-1 Performed By: #### L 500.4050, L100.0100 ####[facility] [address] [place], [address] MCH (RBC) [Entitic mass] 29.5 pg Normal 27.0-32.0 [facility] Comment on above: Order Comment: 301-1 Performed By: #### L 500.4050, L100.0100 ####[facility] [address] [place], [address] MCHC (RBC) [Mass/Vol] 32.8 g/dL Normal 32-36 [facility] Comment on above: Order Comment: 301-1 Performed By: #### L 500.4050, L100.0100 ####[facility] [address] [place], [address] MCV (RBC) [Entitic vol] 89.7 fL Normal 81-99 [facility] Comment on above: Order Comment: 301-1 Performed By: #### L 500.4050, L100.0100 ####[facility] [address] [place], [address] Monocytes/100 WBC (Bld) 8.2 % Normal 0-10 [facility] Comment on above: Order Comment: 301-1 Performed By: #### L 500.4050, L100.0100 ####[facility] [address], [address] Neutrophils/100 WBC (Bld) 66.0 % Normal 47-70 [facility] Comment on above: Order Comment: 301-1 Performed By: #### L 500.4050, L100.0100 ####[facility] [address], [address] Nucleated RBC (Bld) [#/Vol] 0 10*3/uL Normal 0-5 [facility] Comment on above: Order Comment: 301-1 Performed By: #### L 500.4050, L100.0100 ####[facility] [address] [place], [address] Platelet mean volume (Bld) [Entitic vol] 9.6 fL Normal 6.2-12.0 [facility] Comment on above: Order Comment: 301-1 Performed By: #### L 500.4050, L100.0100 ####[facility] [address] [place], [address] Platelets (Bld) [#/Vol] 353 10*3/uL Normal 150-450 [facility] Comment on above: Order Comment: 301-1 Performed By: #### L 500.4050, L100.0100 ####[facility] [address] [place], [address] RBC (Bld) [#/Vol] 3.80 10*6/uL Low 4.2-5.4 [facility] Comment on above: Order Comment: 301-1 Performed By: #### L 500.4050, L100.0100 ####[facility] [address] [place], [address] RDW SD 43.1 fl Normal 35.1-43.9 [facility] Comment on above: Order Comment: 301-1 Performed By: #### L 500.4050, L100.0100 ####[facility] [address] [place], [address] WBC (Bld) [#/Vol] 5.5 10*3/uL Normal 4.4-11.0 [facility] Comment on above: Order Comment: 301-1 Performed By: #### L 500.4050, L100.0100 ####[facility] [address] [place], [address] Carbon dioxide, total [Moles /volume] in Central venous bloodOrdered By: Gene Duenas on 02-18-2025 CO2 [Moles/Vol] 21.9 mmol/L 21.0-32.0 [facility] Chloride assayOrdered By: Tatum on 02-18-2025 Chloride [Moles/Vol] 101 mmol/L 98-108 [facility] Comprehensive Metabolic Prof ilon 02-18-2025 Albumin [Mass/Vol] 3.1 g/dL Low 3.4-4.8 [facility] Comment on above: Order Comment: 301-1 Performed By: #### L 500.4050, L100.0100 ####[facility] [address] [place], [address] Albumin/Globulin [Mass ratio] 1.4 {ratio} Normal 0.9-2.4 [facility] Comment on above: Order Comment: 301-1 Performed By: #### L 500.4050, L100.0100 ####[facility] [address] [place], [address] ALK PHOS 67 U/L Normal 35-104 [facility] Comment on above: Order Comment: 301-1 Performed By: #### L 500.4050, L100.0100 ####[facility] [address] [place], [address] ALT [Catalytic activity/Vol] 10 U/L Normal <=34 [facility] Comment on above: Order Comment: 301-1 Performed By: #### L 500.4050, L100.0100 ####[facility] [address] [place], [address] AST [Catalytic activity/Vol] 16 U/L Normal <=31 [facility] Comment on above: Order Comment: 301-1 Performed By: #### L 500.4050, L100.0100 ####[facility] [address] [place], [address] Bilirubin [Mass/Vol] 0.24 mg/dL Normal 0.00-1.30 [facility] Comment on above: Order Comment: 301-1 Performed By: #### L 500.4050, L100.0100 ####[facility] [address] [place], [address] BUN/CRE 37.3 RATIO High 10-20 [facility] Comment on above: Order Comment: 301-1 Performed By: #### L 500.4050, L100.0100 ####[facility] [address] [place], [address] Calcium [Mass/Vol] 8.7 mg/dL Normal 7.6-11.0 [facility] Comment on above: Order Comment: 301-1 Performed By: #### L 500.4050, L100.0100 ####[facility] [address] [place], [address] Chloride [Moles/Vol] 101 mmol/L Normal 98-108 [facility] Comment on above: Order Comment: 301-1 Performed By: #### L 500.4050, L100.0100 ####[facility] [address] [place], [address] CO2 [Moles/Vol] 21.9 mmol/L Normal 21.0-32.0 [facility] Comment on above: Order Comment: 301-1 Performed By: #### L 500.4050, L100.0100 ####[facility] [address] [place], [address] Creatinine [Mass/Vol] 0.58 mg/dL Low 0.70-1.20 [facility] Comment on above: Order Comment: 301-1 Performed By: #### L 500.4050, L100.0100 ####[facility] [address] [place], [address] GAP 11 Normal 5-15 [facility] Comment on above: Order Comment: 301-1 Performed By: #### L 500.4050, L100.0100 ####[facility] [address] [place], [address] GFR/1.73 sq M.predicted among non-blacks MDRD (S/P/Bld) [Vol rate/Area] 91 mL/min/{1.73_m2} Normal >60 [facility] Comment on above: Order Comment: 301-1 Result Comment: mL/m in/1.73m2 CKD-EPI Creatinine Equation (2020) Performed By: #### L 500.4050, L100.0100 ####[facility] [address] [place], [address] Globulin (S) [Mass/Vol] 2.3 g/dL Normal 2.2-4.2 [facility] Comment on above: Order Comment: 301-1 Performed By: #### L 500.4050, L100.0100 ####[facility] [address] [place], [address] Glucose [Mass/Vol] 87 mg/dL Normal 70-99 [facility] Comment on above: Order Comment: 301-1 Performed By: #### L 500.4050, L100.0100 ####[facility] [address] [place], [address] Potassium [Moles/Vol] 3.3 mmol/L Normal 3.3-5.1 [facility] Comment on above: Order Comment: 301-1 Performed By: #### L 500.4050, L100.0100 ####[facility] [address] [place], [address] Sodium [Moles/Vol] 134 mmol/L Normal 133-145 [facility] Comment on above: Order Comment: 301-1 Performed By: #### L 500.4050, L100.0100 ####[facility] [address] [place], [address] T PROT 5.4 g/dL Low 5.9-8.4 [facility] Comment on above: Order Comment: 301-1 Performed By: #### L 500.4050, L100.0100 ####[facility] [address] [place], [address] Urea nitrogen [Mass/Vol] 22 mg/dL High 4-19 [facility] Comment on above: Order Comment: 301-1 Performed By: #### L 500.4050, L100.0100 ####[facility] [address] [place], [address] Eosinophil percentageOrdered By: Gene Duenas on 02-18-2025 Eosinophils/100 WBC (Bld) 4.0 % 0-5 [facility] Erythrocyte distribution wid th ratioOrdered By: Gene Duenas on 02-18-2025 Erythrocyte distribution width (RBC) [Ratio] 13.0 % 11.6-14.6 [facility] Erythrocyte distribution wid th standard deviationOrdered By: Gene Duenas on 02-18-2025 Erythrocyte distribution width (RBC) [Ratio] 43.1 fl 35.1-43.9 [facility] Glomerular filtration rate ( GFR) estimation/1.73 sq m using serum, plasma, or whole bOrdered By: Gene Duenas on 02-18-2025 GFR/1.73 sq M.predicted among non-blacks MDRD (S/P/Bld) [Vol rate/Area] 91 mL/min/{1.73_m2} >60 [facility] Comment on above: mL/min/1.73m2 CKD-EP I Creatinine Equation (2020) Hematocrit Auto (Bld) [Volum e fraction]Ordered By: Gene Duenas on 02-18-2025 Hematocrit (Bld) [Volume fraction] 34.1 % Low 37-47 [facility] Hemoglobin measurementOrdere d By: Gene Duenas on 02-18-2025 Hemoglobin (Bld) [Mass/Vol] 11.2 g/dL Low 12.0-15.0 [facility] Immature granulocytes/100 WB C Auto (Bld)Ordered By: Gene Duenas on 02-18-2025 Immature granulocytes/100 WBC (Bld) 0.500 % 0.0-0.9 [facility] Comment on above: IG% - Immature Granu locytes (promyelocytes, myelocytes and metamyelocytes) > 1% indicates that a LEFT SHIFT is Present. Ketones Test strip Ql (U)Ord ered By: Gene Duenas on 02-18-2025 Ketones Ql (U) 5 mg/dl High Negative [facility] Laboratory - Chemistry and C hemistry - challengeOrdered By: Gene Duenas on 02-18-2025 AST [Catalytic activity/Vol] 16 U/L <32 [facility] MCV (mean corpuscular volume ) determinationOrdered By: Gene Duenas on 02-18-2025 MCV (RBC) [Entitic vol] 89.7 fL 81-99 [facility] Mean corpuscular hemoglobin (MCH) determinationOrdered By: Gene Duenas on 02-18-2025 MCH (RBC) [Entitic mass] 29.5 pg 27.0-32.0 [facility] Mean corpuscular hemoglobin concentration (MCHC) determinationOrdered By: Gene Duenas on 02-18-2025 MCHC (RBC) [Mass/Vol] 32.8 g/dL 32-36 [facility] Mean platelet volume determi nationOrdered By: Gene Duenas on 02-18-2025 Platelet mean volume (Bld) [Entitic vol] 9.6 fL 6.2-12.0 [facility] Microscopic analysis of urin e for red blood cells (RBC)Ordered By: Gene Duenas on 02-18-2025 Microscopic analysis of urine for red blood cells (RBC) 5-10 SEEN /hpf 0-5 [facility] Monocyte percentageOrdered B y: Gene Duenas on 02-18-2025 Monocytes/100 WBC (Bld) 8.2 % 0-10 [facility] Mucus LM Ql (Urine sed)Order ed By: Gene Duenas on 02-18-2025 Mucus Ql (Urine sed) 0 SEEN /hpf [facility] Neutrophil percentageOrdered By: Gene Duenas on 02-18-2025 Neutrophils/100 WBC (Bld) 66.0 % 47-70 [facility] Nitrite Test strip Ql (U)Ord ered By: Gene Duenas on 02-18-2025 Nitrite Ql (U) Negative Negative [facility] Nucleated red blood cell per centageOrdered By: Gene Duenas on 02-18-2025 Nucleated RBC/100 WBC (Bld) [Ratio] 0 % 0-5 [facility] Platelet countOrdered By: Tatum on 02-18-2025 Platelets (Bld) [#/Vol] 353 10*3/uL 150-450 [facility] Potassium measurement (mass/ volume)Ordered By: Gene Duenas on 02-18-2025 Potassium (Unsp spec) [Mass/Vol] 3.3 mmol/L 3.3-5.1 [facility] Protein Test strip Ql (U)Ord ered By: Gene Duenas on 02-18-2025 Protein Ql (U) 100 mg/dl High Negative [facility] RBC Auto (Bld) [#/Vol]Ordere d By: Gene Duenas on 02-18-2025 RBC (Bld) [#/Vol] 3.80 10*6/uL Low 4.2-5.4 [facility] Serum creatinine measurement (mass/volume)Ordered By: Gene Duenas on 02-18-2025 Creatinine [Mass/Vol] 0.58 mg/dL Low 0.70-1.20 [facility] Serum globulin measurementOr dered By: Gene Duenas on 02-18-2025 Globulin (S) [Mass/Vol] 2.3 g/dL 2.2-4.2 [facility] Serum glucose measurement (m ass/volume)Ordered By: Gene Duenas on 02-18-2025 Glucose [Mass/Vol] 87 mg/dL 70-99 [facility] Serum or plasma alanine simeon otransferase (ALT) measurementOrdered By: Gene Duenas on 02-18-2025 ALT [Catalytic activity/Vol] 10 U/L <35 [facility] Serum or plasma albumin cindy urement (mass/volume)Ordered By: Gene Duenas on 02-18-2025 Albumin [Mass/Vol] 3.1 g/dL Low 3.4-4.8 [facility] Serum or plasma albumin/glob ulin mass ratioOrdered By: Gene Duenas on 02-18-2025 Albumin/Globulin [Mass ratio] 1.4 {ratio} 0.9-2.4 [facility] Serum or plasma alkaline avani sphatase measurementOrdered By: Gene Duenas on 02-18-2025 ALP [Catalytic activity/Vol] 67 U/L 35-104 [facility] Serum or plasma calcium cindy urement (mass/volume)Ordered By: Gene Duenas on 02-18-2025 Calcium [Mass/Vol] 8.7 mg/dL 7.6-11.0 [facility] Serum or plasma urea nitroge n measurement (mass/volume)Ordered By: Gene Duenas on 02-18-2025 Urea nitrogen [Mass/Vol] 22 mg/dL High 4-19 [facility] Sodium levelOrdered By: Gene Duenas on 02-18-2025 Sodium [Moles/Vol] 134 mmol/L 133-145 [facility] Squamous epithelial cells de tection in urine sediment by light microscopyOrdered By: Gene Duenas on 02-18-2025 Epithelial cells.squamous LM Ql (Urine sed) 0-5 SEEN /hpf 5-10 [facility] Total proteinOrdered By: Fabi Duenas on 02-18-2025 Protein [Mass/Vol] 5.4 g/dL Low 5.9-8.4 [facility] Triple phosphate crystals de tection in urine sediment by light microscopyOrdered By: Gene Duenas on 02-18-2025 Triple phosphate crystals LM Ql (Urine sed) 1+ /hpf [facility] Urinalysis, Completeon 02-18 EPI,SQUAMOUS 0-5 SEEN Normal 5-10 [facility] Comment on above: Order Comment: 301-1 CLEAN CATCH Performed By: #### M 100.2200, L400.0001 ####[facility] [address] [place], [address] RBC 5-10 SEEN Normal 0-5 [facility] Comment on above: Order Comment: 301-1 CLEAN CATCH Performed By: #### M 100.2200, L400.0001 ####[facility] [address] [facility] [address] WBC 5-10 SEEN Normal 0-5 [facility] Comment on above: Order Comment: 301-1 CLEAN CATCH Performed By: #### M 100.2200, L400.0001 ####[facility] [address] [place], [address] BACTERIA 3+ /hpf Normal None Seen [facility] Comment on above: Order Comment: 301-1 CLEAN CATCH Performed By: #### M 100.2200, L400.0001 ####[facility] [address] [place], [address] TRIPLE PHOS 1+ /hpf Normal [facility] Comment on above: Order Comment: 301-1 CLEAN CATCH Performed By: #### M 100.2200, L400.0001 ####[facility] [address] [place], [address] Mucus Ql (Urine sed) 0 SEEN Normal [facility] Comment on above: Order Comment: 301-1 CLEAN CATCH Performed By: #### M 100.2200, L400.0001 ####[facility] [address] [place], [address] Urine clarityOrdered By: Fabi Duenas on 02-18-2025 Clarity (U) Cloudy Clear [facility] Urine color determinationOrd ered By: Gene Duenas on 02-18-2025 Color (U) Yellow Yellow [facility] Urine cultureOrdered By: Fabi Duenas on 02-18-2025 Bacteria identified Cx Nom (U) Enterococcus faecalis Abnormal [facility] Bacteria identified Cx Nom (U) Negative Abnormal [facility] Urine glucose detectionOrder ed By: Gene Duenas on 02-18-2025 Glucose Ql (U) Normal mg/dl Normal [facility] Urine leukocyte esterase det ection by dipstickOrdered By: Gene Duenas on 02-18-2025 Leukocyte esterase Test strip Ql (U) 25 /ul High Negative [facility] Urine pHOrdered By: Gene davidson on 02-18-2025 pH (U) 8.0 [pH] 5.0 - 8.0 [facility] Urine sediment bacteria coun t by microscopy (number/high power field)Ordered By: Gene Duenas on 02-18-2025 Bacteria LM.HPF (Urine sed) [#/Area] 3 /[HPF] None Seen [facility] Urine specific gravity measu rementOrdered By: Gene Duenas on 02-18-2025 Specific gravity (U) [Rel density] 1.010 1.002-1.030 [facility] Urine urobilinogen measureme ntOrdered By: Gene Duenas on 02-18-2025 Urobilinogen Ql (U) Normal mg/dl Normal [facility] White blood cell (WBC) count Ordered By: Gene Duenas on 02-18-2025 WBC (Bld) [#/Vol] 5.5 10*3/uL 4.4-11.0 [facility] White blood cell countOrdere d By: Gene Duenas on 02-18-2025 White blood cell count 5-10 SEEN /hpf 0-5 [facility] Anion gap in Serum or Plasma Ordered By: Gene Duenas on 02-09-2025 Anion gap [Moles/Vol] 11 mmol/L 5- [facility] BUN/creatinine ratioOrdered By: Gene Duenas on 02-09-2025 Urea nitrogen/Creatinine [Mass ratio] 17.0 mg/mg 10- [facility] [facility] Basic Metabolic Profile (BMP )on 02-09-2025 BUN/CRE 17.0 RATIO Normal - [facility] Comment on above: Order Comment: 301-1 Performed By: #### L 500.2500 ####[facility] [address] [place], [address] Calcium [Mass/Vol] 9.2 mg/dL Normal 7.6-11.0 [facility] Comment on above: Order Comment: 301-1 Performed By: #### L 500.2500 ####[facility] [address] [place], [address] Chloride [Moles/Vol] 100 mmol/L Normal 98-108 [facility] Comment on above: Order Comment: 301-1 Performed By: #### L 500.2500 ####[facility] [address] [place], [address] CO2 [Moles/Vol] 22.4 mmol/L Normal 21.0-32.0 [facility] Comment on above: Order Comment: 301-1 Performed By: #### L 500.2500 ####[facility] [address] [place], [address] Creatinine [Mass/Vol] 0.59 mg/dL Low 0.70-1.20 [facility] Comment on above: Order Comment: 301-1 Performed By: #### L 500.2500 ####[facility] [address] [place], [address] GAP 11 Normal 5-15 [facility] Comment on above: Order Comment: 301-1 Performed By: #### L 500.2500 ####[facility] [address] [place], [address] GFR/1.73 sq M.predicted among non-blacks MDRD (S/P/Bld) [Vol rate/Area] 91 mL/min/{1.73_m2} Normal >60 [facility] Comment on above: Order Comment: 301- Result Comment: mL/m in/1.73m2 CKD-EPI Creatinine Equation (2020) Performed By: #### L 500.2500 ####[facility] [address] [place], [address] Glucose [Mass/Vol] 91 mg/dL Normal 70-99 [facility] Comment on above: Order Comment: 301-1 Performed By: #### L 500.2500 ####[facility] [address] [place], [address] Potassium [Moles/Vol] 3.8 mmol/L Normal 3.3-5.1 [facility] Comment on above: Order Comment: 301-1 Performed By: #### L 500.2500 ####[facility] [address] [place], [address] Sodium [Moles/Vol] 133 mmol/L Normal 133-145 [facility] Comment on above: Order Comment: 301-1 Performed By: #### L 500.2500 ####[facility] [address] [place], [address] Urea nitrogen [Mass/Vol] 10 mg/dL Normal 01-10 [facility] Comment on above: Order Comment: 301-1 Performed By: #### L 500.1858 ####[facility] [address] [place], [address] Carbon dioxide, total [Moles /volume] in Central venous bloodOrdered By: Gene Duenas on 02-09-2025 CO2 [Moles/Vol] 22.4 mmol/L 21.0-32.0 [facility] Chloride assayOrdered By: Tatum on 02-09-2025 Chloride [Moles/Vol] 100 mmol/L 98-108 [facility] Glomerular filtration rate ( GFR) estimation/1.73 sq m using serum, plasma, or whole bOrdered By: Gene Duenas on 02-09-2025 GFR/1.73 sq M.predicted among non-blacks MDRD (S/P/Bld) [Vol rate/Area] 91 mL/min/{1.73_m2} >60 [facility] Comment on above: mL/min/1.73m2 CKD-EP I Creatinine Equation (2020) Potassium measurement (mass/ volume)Ordered By: Gene Duenas on 02-09-2025 Potassium (Unsp spec) [Mass/Vol] 3.8 mmol/L 3.3-5.1 [facility] Serum creatinine measurement (mass/volume)Ordered By: Gene Duenas on 02-09-2025 Creatinine [Mass/Vol] 0.59 mg/dL Low 0.70-1.20 [facility] Serum glucose measurement (m ass/volume)Ordered By: Gene Duenas on 02-09-2025 Glucose [Mass/Vol] 91 mg/dL 70-99 [facility] Serum or plasma calcium cindy urement (mass/volume)Ordered By: Gene Duenas on 02-09-2025 Calcium [Mass/Vol] 9.2 mg/dL 7.6-11.0 [facility] Serum or plasma urea nitroge n measurement (mass/volume)Ordered By: Gene Duenas on 02-09-2025 Urea nitrogen [Mass/Vol] 10 mg/dL 01-10 [facility] Sodium levelOrdered By: Gene Duenas on 02-09-2025 Sodium [Moles/Vol] 133 mmol/L 133-145 [facility] Anion gap in Serum or Plasma Ordered By: Gene Duenas on 02-06-2025 Anion gap [Moles/Vol] 11 mmol/L 5- [facility] BUN/creatinine ratioOrdered By: Gene Duenas on 02-06-2025 Urea nitrogen/Creatinine [Mass ratio] 17.3 mg/mg 10- [facility] Bilirubin, totalOrdered By: Gene Duenas on 02-06-2025 Bilirubin [Mass/Vol] 0.32 mg/dL 0.00-1.30 [facility] CBC-Complete Blood Cnt No Di ffon 02-06-2025 Erythrocyte distribution width (RBC) [Ratio] 13.0 % Normal 11.6-14.6 [facility] Comment on above: Order Comment: . Performed By: #### L 500.4050, L100.0500 ####[facility] [address] [place], [address] Hematocrit (Bld) [Volume fraction] 36.4 % Low 37-47 [facility] Comment on above: Order Comment: . Performed By: #### L 500.4050, L100.0500 ####[facility] [address] [place], [address] Hemoglobin (Bld) [Mass/Vol] 12.3 g/dL Normal 12.0-15.0 [facility] Comment on above: Order Comment: . Performed By: #### L 500.4050, L100.0500 ####[facility] [address] [place], [address] MCH (RBC) [Entitic mass] 30.1 pg Normal 27.0-32.0 [facility] Comment on above: Order Comment: . Performed By: #### L 500.4050, L100.0500 ####[facility] [address] [place], [address] MCHC (RBC) [Mass/Vol] 33.8 g/dL Normal 32-36 [facility] Comment on above: Order Comment: . Performed By: #### L 500.4050, L100.0500 ####[facility] [address] [place], [address] MCV (RBC) [Entitic vol] 89.0 fL Normal 81-99 [facility] Comment on above: Order Comment: . Performed By: #### L 500.4050, L100.0500 ####[facility] [address] [place], [address] Platelet mean volume (Bld) [Entitic vol] 9.4 fL Normal 6.2-12.0 [facility] Comment on above: Order Comment: . Performed By: #### L 500.4050, L100.0500 ####[facility] [address] [place], [address] Platelets (Bld) [#/Vol] 279 10*3/uL Normal 150-450 [facility] Comment on above: Order Comment: . Performed By: #### L 500.4050, L100.0500 ####[facility] [address] [place], [address] RBC (Bld) [#/Vol] 4.09 10*6/uL Low 4.2-5.4 [facility] Comment on above: Order Comment: . Performed By: #### L 500.4050, L100.0500 ####[facility] [address] [place], [address] RDW SD 42.4 fl Normal 35.1-43.9 [facility] Comment on above: Order Comment: . Performed By: #### L 500.4050, L100.0500 ####[facility] [address] [place], [address] WBC (Bld) [#/Vol] 4.8 10*3/uL Normal 4.4-11.0 [facility] Comment on above: Order Comment: . Performed By: #### L 500.4050, L100.0500 ####[facility] [address] [place], [address] Carbon dioxide, total [Moles /volume] in Central venous bloodOrdered By: Gene Duenas on 02-06-2025 CO2 [Moles/Vol] 21.0 mmol/L 21.0-32.0 [facility] Chloride assayOrdered By: Tatum on 02-06-2025 Chloride [Moles/Vol] 96 mmol/L Low 98-108 [facility] Comprehensive Metabolic Prof ilon 02-06-2025 Albumin [Mass/Vol] 3.7 g/dL Normal 3.4-4.8 [facility] Comment on above: Order Comment: . Performed By: #### L 500.4050, L100.0500 ####[facility] [address] [place], [address] Albumin/Globulin [Mass ratio] 1.4 {ratio} Normal 0.9-2.4 [facility] Comment on above: Order Comment: . Performed By: #### L 500.4050, L100.0500 ####[facility] [address] [place], [address] ALK PHOS 78 U/L Normal 35-104 [facility] Comment on above: Order Comment: . Performed By: #### L 500.4050, L100.0500 ####[facility] [address] [place], [address] ALT [Catalytic activity/Vol] 14 U/L Normal <=34 [facility] Comment on above: Order Comment: . Performed By: #### L 500.4050, L100.0500 ####[facility] [address] [place], [address] AST [Catalytic activity/Vol] 20 U/L Normal <=31 [facility] Comment on above: Order Comment: .1 Performed By: #### L 500.4050, L100.0500 ####[facility] [address] [place], [address] Bilirubin [Mass/Vol] 0.32 mg/dL Normal 0.00-1.30 [facility] Comment on above: Order Comment: . Performed By: #### L 500.4050, L100.0500 ####[facility] [address] [place], [address] BUN/CRE 17.3 RATIO Normal 10-20 [facility] Comment on above: Order Comment: . Performed By: #### L 500.4050, L100.0500 ####[facility] [address] [place], [address] Calcium [Mass/Vol] 9.2 mg/dL Normal 7.6-11.0 [facility] Comment on above: Order Comment: . Performed By: #### L 500.4050, L100.0500 ####[facility] [address] [place], [address] Chloride [Moles/Vol] 96 mmol/L Low 98-108 [facility] Comment on above: Order Comment: . Performed By: #### L 500.4050, L100.0500 ####[facility] [address] [place], [address] CO2 [Moles/Vol] 21.0 mmol/L Normal 21.0-32.0 [facility] Comment on above: Order Comment: . Performed By: #### L 500.4050, L100.0500 ####[facility] [address] [place], [address] Creatinine [Mass/Vol] 0.66 mg/dL Low 0.70-1.20 [facility] Comment on above: Order Comment: . Performed By: #### L 500.4050, L100.0500 ####[facility] [address] [place], [address] GAP 11 Normal 5-15 [facility] Comment on above: Order Comment: . Performed By: #### L 500.4050, L100.0500 ####[facility] [address] [place], [address] GFR/1.73 sq M.predicted among non-blacks MDRD (S/P/Bld) [Vol rate/Area] 88 mL/min/{1.73_m2} Normal >60 [facility] Comment on above: Order Comment: Result Comment: mL/m in/1.73m2 CKD-EPI Creatinine Equation (2020) Performed By: #### L 500.4050, L100.0500 ####[facility] [address] [place], [address] Globulin (S) [Mass/Vol] 2.6 g/dL Normal 2.2-4.2 [facility] Comment on above: Order Comment: . Performed By: #### L 500.4050, L100.0500 ####[facility] [address] [place], [address] Glucose [Mass/Vol] 93 mg/dL Normal 70-99 [facility] Comment on above: Order Comment: . Performed By: #### L 500.4050, L100.0500 ####[facility] [address] [place], [address] Potassium [Moles/Vol] 4.0 mmol/L Normal 3.3-5.1 [facility] Comment on above: Order Comment: . Performed By: #### L 500.4050, L100.0500 ####[facility] [address] [place], [address] Sodium [Moles/Vol] 128 mmol/L Low 133-145 [facility] Comment on above: Order Comment: 202.1 Performed By: #### L 500.4050, L100.0500 ####[facility] [address] [place], [address] T PROT 6.2 g/dL Normal 5.9-8.4 [facility] Comment on above: Order Comment: 202.1 Performed By: #### L 500.4050, L100.0500 ####[facility] [address] [place], [address] Urea nitrogen [Mass/Vol] 11 mg/dL Normal 4-19 [facility] Comment on above: Order Comment: 202.1 Performed By: #### L 500.4050, L100.0500 ####[facility] [address] [place], [address] Erythrocyte distribution wid th ratioOrdered By: Gene Duenas on 02-06-2025 Erythrocyte distribution width (RBC) [Ratio] 13.0 % 11.6-14.6 [facility] Erythrocyte distribution wid th standard deviationOrdered By: Gene Duenas on 02-06-2025 Erythrocyte distribution width (RBC) [Ratio] 42.4 fl 35.1-43.9 [facility] Glomerular filtration rate ( GFR) estimation/1.73 sq m using serum, plasma, or whole bOrdered By: Gene Duenas on 02-06-2025 GFR/1.73 sq M.predicted among non-blacks MDRD (S/P/Bld) [Vol rate/Area] 88 mL/min/{1.73_m2} >60 [facility] Comment on above: mL/min/1.73m2 CKD-EP I Creatinine Equation (2020) Hematocrit Auto (Bld) [Volum e fraction]Ordered By: Gene Duenas on 02-06-2025 Hematocrit (Bld) [Volume fraction] 36.4 % Low 37-47 [facility] Hemoglobin measurementOrdere d By: Gene Duenas on 02-06-2025 Hemoglobin (Bld) [Mass/Vol] 12.3 g/dL 12.0-15.0 [facility] Laboratory - Chemistry and C hemistry - challengeOrdered By: Gene Duenas on 02-06-2025 AST [Catalytic activity/Vol] 20 U/L <32 [facility] MCV (mean corpuscular volume ) determinationOrdered By: Gene Duenas on 02-06-2025 MCV (RBC) [Entitic vol] 89.0 fL 81-99 [facility] Mean corpuscular hemoglobin (MCH) determinationOrdered By: Gene Duenas on 02-06-2025 MCH (RBC) [Entitic mass] 30.1 pg 27.0-32.0 [facility] Mean corpuscular hemoglobin concentration (MCHC) determinationOrdered By: Gene Duenas on 02-06-2025 MCHC (RBC) [Mass/Vol] 33.8 g/dL 32-36 [facility] Mean platelet volume determi nationOrdered By: Gene Duenas on 02-06-2025 Platelet mean volume (Bld) [Entitic vol] 9.4 fL 6.2-12.0 [facility] Platelet countOrdered By: Tatum on 02-06-2025 Platelets (Bld) [#/Vol] 279 10*3/uL 150-450 [facility] Potassium measurement (mass/ volume)Ordered By: Gene Duenas on 02-06-2025 Potassium (Unsp spec) [Mass/Vol] 4.0 mmol/L 3.3-5.1 [facility] RBC Auto (Bld) [#/Vol]Ordere d By: Gene Duenas on 02-06-2025 RBC (Bld) [#/Vol] 4.09 10*6/uL Low 4.2-5.4 [facility] Serum creatinine measurement (mass/volume)Ordered By: Gene Duenas on 02-06-2025 Creatinine [Mass/Vol] 0.66 mg/dL Low 0.70-1.20 [facility] Serum globulin measurementOr dered By: Gene Duenas on 02-06-2025 Globulin (S) [Mass/Vol] 2.6 g/dL 2.2-4.2 [facility] Serum glucose measurement (m ass/volume)Ordered By: Gene Duenas on 02-06-2025 Glucose [Mass/Vol] 93 mg/dL 70-99 [facility] Serum or plasma alanine simeon otransferase (ALT) measurementOrdered By: Gene Duenas on 02-06-2025 ALT [Catalytic activity/Vol] 14 U/L <35 [facility] Serum or plasma albumin cindy urement (mass/volume)Ordered By: Gene Duenas on 02-06-2025 Albumin [Mass/Vol] 3.7 g/dL 3.4-4.8 [facility] Serum or plasma albumin/glob ulin mass ratioOrdered By: Gene Duenas on 02-06-2025 Albumin/Globulin [Mass ratio] 1.4 {ratio} 0.9-2.4 [facility] Serum or plasma alkaline avani sphatase measurementOrdered By: Gene Duenas on 02-06-2025 ALP [Catalytic activity/Vol] 78 U/L 35-104 [facility] Serum or plasma calcium cindy urement (mass/volume)Ordered By: Gene Duenas on 02-06-2025 Calcium [Mass/Vol] 9.2 mg/dL 7.6-11.0 [facility] Serum or plasma urea nitroge n measurement (mass/volume)Ordered By: Gene Duenas on 02-06-2025 Urea nitrogen [Mass/Vol] 11 mg/dL 4-19 [facility] Sodium levelOrdered By: Gene Duenas on 02-06-2025 Sodium [Moles/Vol] 128 mmol/L Low 133-145 [facility] Total proteinOrdered By: Fabi Duenas on 02-06-2025 Protein [Mass/Vol] 6.2 g/dL 5.9-8.4 [facility] White blood cell (WBC) count Ordered By: Gene Duenas on 02-06-2025 WBC (Bld) [#/Vol] 4.8 10*3/uL 4.4-11.0 [facility] 36on 01-27-2025 36 Pt scheduled for cys to with Dr. Georges on 03/02 at 9:20am. This is the earliest facility can bring the patient in for appt as Pt under senior care . Ayala aware someone has to come in with patient if transfer/ambulation help needed. Normal [facility] 36on 01-26-2025 36 Message released to patient as written. Patient's further questions if applicable: message was released to Ayala and she would like to schedule cystoscopy Were all questions from office addressed or relayed to the patient from encounter: Yes Normal [facility] Anion gap in Serum or Plasma Ordered By: Gene Duenas on 01-26-2025 Anion gap [Moles/Vol] 11 mmol/L - [facility] BUN/creatinine ratioOrdered By: Gene Duenas on 01-26-2025 Urea nitrogen/Creatinine [Mass ratio] 18.0 mg/mg - [facility] Basic Metabolic Profile (BMP )on 01-26-2025 BUN/CRE 18.0 RATIO Normal - [facility] Comment on above: Order Comment: . Performed By: #### L 100.0500, L500.2500 ####[facility] [address] [place], [address] Calcium [Mass/Vol] 9.1 mg/dL Normal 7.6-11.0 [facility] Comment on above: Order Comment: . Performed By: #### L 100.0500, L500.2500 ####[facility] [address] [place], [address] Chloride [Moles/Vol] 102 mmol/L Normal 98-108 [facility] Comment on above: Order Comment: . Performed By: #### L 100.0500, L500.2500 ####[facility] [address] [place], [address] CO2 [Moles/Vol] 22.0 mmol/L Normal 21.0-32.0 [facility] Comment on above: Order Comment: . Performed By: #### L 100.0500, L500.2500 ####[facility] [address] [place], [address] Creatinine [Mass/Vol] 0.63 mg/dL Low 0.70-1.20 [facility] Comment on above: Order Comment: . Performed By: #### L 100.0500, L500.2500 ####[facility] [address] [place], [address] GAP 11 Normal 5-15 [facility] Comment on above: Order Comment: . Performed By: #### L 100.0500, L500.2500 ####[facility] [address] [place], [address] GFR/1.73 sq M.predicted among non-blacks MDRD (S/P/Bld) [Vol rate/Area] 89 mL/min/{1.73_m2} Normal >60 [facility] Comment on above: Order Comment: . Result Comment: mL/m in/1.73m2 CKD-EPI Creatinine Equation (2020) Performed By: #### L 100.0500, L500.2500 ####[facility] [address] [place], [address] Glucose [Mass/Vol] 102 mg/dL High 70-99 [facility] Comment on above: Order Comment: . Performed By: #### L 100.0500, L500.2500 ####[facility] [address] [place], [address] Potassium [Moles/Vol] 4.0 mmol/L Normal 3.3-5.1 [facility] Comment on above: Order Comment: . Performed By: #### L 100.0500, L500.2500 ####[facility] [address] [place], [address] Sodium [Moles/Vol] 134 mmol/L Normal 133-145 [facility] Comment on above: Order Comment: . Performed By: #### L 100.0500, L500.2500 ####[facility] [address] [place], [address] Urea nitrogen [Mass/Vol] 11 mg/dL Normal 4-19 [facility] Comment on above: Order Comment: . Performed By: #### L 100.0500, L500.2500 ####[facility] [address] [place], [address] CBC-Complete Blood Cnt No Di ffon 01-26-2025 Erythrocyte distribution width (RBC) [Ratio] 12.9 % Normal 11.6-14.6 [facility] Comment on above: Order Comment: . Performed By: #### L 100.0500, L500.2500 ####[facility] [address] [place], [address] Hematocrit (Bld) [Volume fraction] 37.3 % Normal 37-47 [facility] Comment on above: Order Comment: . Performed By: #### L 100.0500, L500.2500 ####[facility] [address], [address] Hemoglobin (Bld) [Mass/Vol] 12.3 g/dL Normal 12.0-15.0 [facility] Comment on above: Order Comment: . Performed By: #### L 100.0500, L500.2500 ####[facility] [address] [place], [address] MCH (RBC) [Entitic mass] 29.6 pg Normal 27.0-32.0 [facility] Comment on above: Order Comment: . Performed By: #### L 100.0500, L500.2500 ####[facility] [address] [place], [address] MCHC (RBC) [Mass/Vol] 33.0 g/dL Normal 32-36 [facility] Comment on above: Order Comment: .1 Performed By: #### L 100.0500, L500.2500 ####[facility] [address] [place], [address] MCV (RBC) [Entitic vol] 89.9 fL Normal 81-99 [facility] Comment on above: Order Comment: .1 Performed By: #### L 100.0500, L500.2500 ####[facility] [address] [place], [address] Platelet mean volume (Bld) [Entitic vol] 9.8 fL Normal 6.2-12.0 [facility] Comment on above: Order Comment: . Performed By: #### L 100.0500, L500.2500 ####[facility] [address] [place], [address] Platelets (Bld) [#/Vol] 295 10*3/uL Normal 150-450 [facility] Comment on above: Order Comment: .1 Performed By: #### L 100.0500, L500.2500 ####[facility] [address] [place], [address] RBC (Bld) [#/Vol] 4.15 10*6/uL Low 4.2-5.4 [facility] Comment on above: Order Comment: .1 Performed By: #### L 100.0500, L500.2500 ####[facility] [address] [place], [address] RDW SD 42.5 fl Normal 35.1-43.9 [facility] Comment on above: Order Comment: .1 Performed By: #### L 100.0500, L500.2500 ####[facility] [address] [place], [address] WBC (Bld) [#/Vol] 5.9 10*3/uL Normal 4.4-11.0 [facility] Comment on above: Order Comment: Performed By: #### L 100.0500, L500.2500 ####[facility] [address] [place], [address] Carbon dioxide, total [Moles /volume] in Central venous bloodOrdered By: Gene Duenas on 01-26-2025 CO2 [Moles/Vol] 22.0 mmol/L 21.0-32.0 [facility] Chloride assayOrdered By: Tatum on 01-26-2025 Chloride [Moles/Vol] 102 mmol/L 98-108 [facility] Erythrocyte distribution wid th ratioOrdered By: Gene Duenas on 01-26-2025 Erythrocyte distribution width (RBC) [Ratio] 12.9 % 11.6-14.6 [facility] Erythrocyte distribution wid th standard deviationOrdered By: Gene Duenas on 01-26-2025 Erythrocyte distribution width (RBC) [Ratio] 42.5 fl 35.1-43.9 [facility] Glomerular filtration rate ( GFR) estimation/1.73 sq m using serum, plasma, or whole bOrdered By: Gene Duenas on 01-26-2025 GFR/1.73 sq M.predicted among non-blacks MDRD (S/P/Bld) [Vol rate/Area] 89 mL/min/{1.73_m2} >60 [facility] Comment on above: mL/min/1.73m2 CKD-EP I Creatinine Equation (2020) Hematocrit Auto (Bld) [Volum e fraction]Ordered By: Gene Duenas on 01-26-2025 Hematocrit (Bld) [Volume fraction] 37.3 % 37-47 [facility] Hemoglobin measurementOrdere d By: Gene Duenas on 01-26-2025 Hemoglobin (Bld) [Mass/Vol] 12.3 g/dL 12.0-15.0 [facility] MCV (mean corpuscular volume ) determinationOrdered By: Gene Duenas on 01-26-2025 MCV (RBC) [Entitic vol] 89.9 fL 81-99 [facility] Mean corpuscular hemoglobin (MCH) determinationOrdered By: Gene Duenas on 01-26-2025 MCH (RBC) [Entitic mass] 29.6 pg 27.0-32.0 [facility] Mean corpuscular hemoglobin concentration (MCHC) determinationOrdered By: Gene Duenas on 01-26-2025 MCHC (RBC) [Mass/Vol] 33.0 g/dL 32-36 [facility] Mean platelet volume determi nationOrdered By: Gene Duenas on 01-26-2025 Platelet mean volume (Bld) [Entitic vol] 9.8 fL 6.2-12.0 [facility] Platelet countOrdered By: Tatum on 01-26-2025 Platelets (Bld) [#/Vol] 295 10*3/uL 150-450 [facility] Potassium measurement (mass/ volume)Ordered By: Gene Duenas on 01-26-2025 Potassium (Unsp spec) [Mass/Vol] 4.0 mmol/L 3.3-5.1 [facility] [facility] RBC Auto (Bld) [#/Vol]Ordere d By: Gene Duenas on 01-26-2025 RBC (Bld) [#/Vol] 4.15 10*6/uL Low 4.2-5.4 [facility] Serum creatinine measurement (mass/volume)Ordered By: Gene Duenas on 01-26-2025 Creatinine [Mass/Vol] 0.63 mg/dL Low 0.70-1.20 [facility] Serum glucose measurement (m ass/volume)Ordered By: Gene Duenas on 01-26-2025 Glucose [Mass/Vol] 102 mg/dL High 70-99 [facility] Serum or plasma calcium cindy urement (mass/volume)Ordered By: Gene Duenas on 01-26-2025 Calcium [Mass/Vol] 9.1 mg/dL 7.6-11.0 [facility] Serum or plasma urea nitroge n measurement (mass/volume)Ordered By: Gene Duenas on 01-26-2025 Urea nitrogen [Mass/Vol] 11 mg/dL 4-19 [facility] Sodium levelOrdered By: Gene Duenas on 01-26-2025 Sodium [Moles/Vol] 134 mmol/L 133-145 [facility] White blood cell (WBC) count Ordered By: Gene Duenas on 01-26-2025 WBC (Bld) [#/Vol] 5.9 10*3/uL 4.4-11.0 [facility] Urine Cultureon 01-24-2025 URC Normal [facility] Comment on above: Performed By: #### M 100.2200, L400.0001 ####[facility] [address] [place], [address] 36on 01-23-2025 36 Keep gill and needs follow up for cystoscopy in the next couple of weeks. Normal [facility] 36 Ayala with [facility] left a VM in regards to the patient and advised that the patient did not pass the VT conducted at the facility and was bladder scanned for 674 mL so gill was reinserted. The patient states the provider at the facility states they used to do bladder clamping "back in the day" and is asking if this could be performed for the patient. Please advise if this is something still performed and recommended. Normal [facility] Protein+Creatinine Ratio,Uri neon 01-23-2025 PROT:CRE RATIO 202 mg/g CRE High 0-200 [facility] Comment on above: Performed By: #### L 501.0900, L500.2500 ####[facility] [address] [place], [address] Protein (U) [Mass/Vol] 19.3 mg/dL High 0.0-12.0 [facility] Comment on above: Performed By: #### L 501.0900, L500.2500 ####[facility] [address] [place], [address] UR CREAT 95.40 mg/dL Normal 28.00-217.0 0 [facility] Comment on above: Performed By: #### L 501.0900, L500.2500 ####[facility] [address] [place], [address] Amorphous sediment detection in urine sediment by light microscopyOrdered By: Gene Duenas on 01-22-2025 Amorphous sediment LM Ql (Urine sed) 1+ [facility] Anion gap in Serum or Plasma Ordered By: Gene Duenas on 01-22-2025 Anion gap [Moles/Vol] 10 mmol/L 5-15 [facility] BUN/creatinine ratioOrdered By: Gene Duenas on 01-22-2025 Urea nitrogen/Creatinine [Mass ratio] 26.3 mg/mg High 10-20 [facility] Basic Metabolic Profile (BMP )on 01-22-2025 BUN/CRE 26.3 RATIO High 10-20 [facility] Comment on above: Order Comment: Performed By: #### L 501.0900, L500.2500 ####[facility] [address] [place], [address] Calcium [Mass/Vol] 9.0 mg/dL Normal 7.6-11.0 [facility] Comment on above: Order Comment: Performed By: #### L 501.0900, L500.2500 ####[facility] [address], [address] Chloride [Moles/Vol] 100 mmol/L Normal 98-108 [facility] Comment on above: Order Comment: Performed By: #### L 501.0900, L500.2500 ####[facility] [address] [place], [address] CO2 [Moles/Vol] 22.2 mmol/L Normal 21.0-32.0 [facility] Comment on above: Order Comment: Performed By: #### L 501.0900, L500.2500 ####[facility] [address], [address] Creatinine [Mass/Vol] 0.67 mg/dL Low 0.70-1.20 [facility] Comment on above: Order Comment: Performed By: #### L 501.0900, L500.2500 ####[facility] [address] [place], [address] GAP 10 Normal 5-15 [facility] Comment on above: Order Comment: Performed By: #### L 501.0900, L500.2500 ####[facility] [address] [place], [address] GFR/1.73 sq M.predicted among non-blacks MDRD (S/P/Bld) [Vol rate/Area] 88 mL/min/{1.73_m2} Normal >60 [facility] Comment on above: Order Comment: Result Comment: mL/m in/1.73m2 CKD-EPI Creatinine Equation (2020) Performed By: #### L 501.0900, L500.2500 ####[facility] [address] [place], [address] Glucose [Mass/Vol] 102 mg/dL High 70-99 [facility] Comment on above: Order Comment: Performed By: #### L 501.0900, L500.2500 ####[facility] [address] [place], [address] Potassium [Moles/Vol] 4.3 mmol/L Normal 3.3-5.1 [facility] Comment on above: Order Comment: Performed By: #### L 501.0900, L500.2500 ####[facility] [address] [place], [address] Sodium [Moles/Vol] 132 mmol/L Low 133-145 [facility] Comment on above: Order Comment: Performed By: #### L 501.0900, L500.2500 ####[facility] [address] [place], [address] Urea nitrogen [Mass/Vol] 18 mg/dL Normal 4-19 [facility] Comment on above: Order Comment: Performed By: #### L 501.0900, L500.2500 ####[facility] [address] [place], [address] Bilirubin Test strip Ql (U)O rdered By: Gene Duenas on 01-22-2025 Bilirubin Ql (U) Negative Negative [facility] Carbon dioxide, total [Moles /volume] in Central venous bloodOrdered By: Gene Duenas on 01-22-2025 CO2 [Moles/Vol] 22.2 mmol/L 21.0-32.0 [facility] Chloride assayOrdered By: Tatum on 01-22-2025 Chloride [Moles/Vol] 100 mmol/L 98-108 [facility] Glomerular filtration rate ( GFR) estimation/1.73 sq m using serum, plasma, or whole bOrdered By: Gene Duenas on 01-22-2025 GFR/1.73 sq M.predicted among non-blacks MDRD (S/P/Bld) [Vol rate/Area] 88 mL/min/{1.73_m2} >60 [facility] Comment on above: mL/min/1.73m2 CKD-EP I Creatinine Equation (2020) Ketones Test strip Ql (U)Ord ered By: Gene Duenas on 01-22-2025 Ketones Ql (U) Negative Negative [facility] Microscopic analysis of urin e for red blood cells (RBC)Ordered By: Gene Duenas on 01-22-2025 Microscopic analysis of urine for red blood cells (RBC) 0 SEEN /hpf 0-5 [facility] Mucus LM Ql (Urine sed)Order ed By: Gene Duenas on 01-22-2025 Mucus Ql (Urine sed) 0 SEEN /hpf [facility] Nitrite Test strip Ql (U)Ord ered By: Gene Duenas on 01-22-2025 Nitrite Ql (U) Negative Negative [facility] Office Visiton 01-22-2025 Follow-up visit [id number] Americo Lewis 1945 F Date Provider Department Center 01/22/2025 ROSITA FLOYD [facility] URO None No family history on file Level of Service:12329 [place] OFFICE/OUTPATIENT NEW MODERATE MDM 45 MINUTES Reason for Visit and Comments: Urinary Retention [200106] - VT Hospitalized for fall and broken patella Normal [facility] Potassium measurement (mass/ volume)Ordered By: Gene Duenas on 01-22-2025 Potassium (Unsp spec) [Mass/Vol] 4.3 mmol/L 3.3-5.1 [facility] Progress Noteon 01-22-2025 Progress Note . Urology Office Visit [facility] [address], [address] [facility] [id number] Visit type: New Patient Reason for Visit: Urinary Retention (VT/Hospitalized for fall and broken patella) Assessment and Plan Diagnoses and all orders for this visit: Urinary retention VT today was successful. Ok to leave catheter out. Instructions provided for SNF regarding monitoring UO and replacing gill if pt is unable to urinate. No follow-ups on file. Subjective HPI Jero is an 79 year old female here for follow up after hospital admission at [facility] after falling and injuring her left knee. While in the hospital she has some urinary retention and a gill catheter was placed. Prior to discharge, a VT was performed and she was unable to void so the gill was replaced. VT today was successful. Ok to leave catheter out. Instructions provided for SNF regarding monitoring UO and replacing gill if pt is unable to urinate. Review [...] There are no discontinued medications. Rosita Resendiz, DORIS - AMBERLY 01/22/2025 12:36 PM Normal [facility] Progress Note Pt presents for Voiding Trial Instilled 250CC Sterile Water into Urinary Bladder Removed 16Fr catheter after deflating 10cc balloon Pt was able to void 100 cc immediately Normal [facility] Protein Test strip Ql (U)Ord ered By: Gene Duenas on 01-22-2025 Protein Ql (U) 15 mg/dl High Negative [facility] Random urine creatinine cindy urement (mass/volume)Ordered By: Gene Duenas on 01-22-2025 Creatinine Unsp time (U) [Mass/Vol] 95.40 mg/dL 28.00-217.0 0 [facility] Serum creatinine measurement (mass/volume)Ordered By: Gene Duenas on 01-22-2025 Creatinine [Mass/Vol] 0.67 mg/dL Low 0.70-1.20 [facility] Serum glucose measurement (m ass/volume)Ordered By: Gene Duenas on 01-22-2025 Glucose [Mass/Vol] 102 mg/dL High 70-99 [facility] Serum or plasma calcium cindy urement (mass/volume)Ordered By: Gene Duenas on 01-22-2025 Calcium [Mass/Vol] 9.0 mg/dL 7.6-11.0 [facility] Serum or plasma urea nitroge n measurement (mass/volume)Ordered By: Gene Duenas on 01-22-2025 Urea nitrogen [Mass/Vol] 18 mg/dL 4-19 [facility] Sodium levelOrdered By: Gene Duenas on 01-22-2025 Sodium [Moles/Vol] 132 mmol/L Low 133-145 [facility] Squamous epithelial cells de tection in urine sediment by light microscopyOrdered By: Gene Duenas on 01-22-2025 Epithelial cells.squamous LM Ql (Urine sed) 0 SEEN /hpf 5-10 [facility] Urinalysis, Completeon 01-22 AMORPHOUS 1+ Normal [facility] Comment on above: Order Comment: TREVOR TER SPECIMEN Performed By: #### M 100.2200, L400.0001 ####[facility] [address] [place], [place], [id number] WBC 0-5 SEEN Normal 0-5 [facility] Comment on above: Order Comment: TREVOR TER SPECIMEN Performed By: #### M 100.2200, L400.0001 ####[facility] [address] [place], [address] BACTERIA 0 SEEN Normal None Seen [facility] Comment on above: Order Comment: TREVOR TER SPECIMEN Performed By: #### M 100.2200, L400.0001 ####[facility] [address] [place], [address] EPI,SQUAMOUS 0 SEEN Normal 5-10 [facility] Comment on above: Order Comment: TREVOR TER SPECIMEN Performed By: #### M 100.2200, L400.0001 ####[facility] [address] [place], [address] Mucus Ql (Urine sed) 0 SEEN Normal [facility] Comment on above: Order Comment: TREVOR TER SPECIMEN Performed By: #### M 100.2200, L400.0001 ####[facility] [address] [place], [address] RBC 0 SEEN Normal 0-5 [facility] Comment on above: Order Comment: TREVOR TER SPECIMEN Performed By: #### M 100.2200, L400.0001 ####[facility] [address] [place], [address] Urine clarityOrdered By: Fabi Duenas on 01-22-2025 Clarity (U) Clear Clear [facility] Urine color determinationOrd ered By: Gene Duenas on 01-22-2025 Color (U) Straw Yellow [facility] Urine cultureOrdered By: Fabi Duenas on 01-22-2025 Bacteria identified Cx Nom (U) Meth. resistant Staph. aureus Abnormal [facility] Urine glucose detectionOrder ed By: Gene Duenas on 01-22-2025 Glucose Ql (U) Normal mg/dl Normal [facility] Urine leukocyte esterase det ection by dipstickOrdered By: Gene Duenas on 01-22-2025 Leukocyte esterase Test strip Ql (U) 500 /ul High Negative [facility] Urine pHOrdered By: Gene davidson on 01-22-2025 pH (U) 6.5 [pH] 5.0 - 8.0 [facility] Urine protein measurement (m ass/volume)Ordered By: Gene Duenas on 01-22-2025 Protein (U) [Mass/Vol] 19.3 mg/dL High 0.0-12.0 [facility] Urine protein/creatinine mas s ratioOrdered By: Gene Duenas on 01-22-2025 Protein/Creatinine (U) [Mass ratio] 202 mg/g CRE High 0-200 [facility] Urine sediment bacteria coun t by microscopy (number/high power field)Ordered By: Gene Duenas on 01-22-2025 Bacteria LM.HPF (Urine sed) [#/Area] 0 /[HPF] None Seen [facility] Urine specific gravity measu rementOrdered By: Gene Duenas on 01-22-2025 Specific gravity (U) [Rel density] 1.010 1.002-1.030 [facility] Urine urobilinogen measureme ntOrdered By: Gene Duenas on 01-22-2025 Urobilinogen Ql (U) Normal mg/dl Normal [facility] White blood cell countOrdere d By: Gene Duenas on 01-22-2025 White blood cell count 0-5 SEEN /hpf 0-5 [facility] 12 Lead EKGon 01-19-2025 12 Lead EKG Normal [facility] 36on 01-19-2025 36 [facility]. Spoke with nurse Gorman. Will send fax documents of pt history and discharge information from [facility]. Scheduled new patient appt 01/22/25 10:00 AM w/Rosita for *hosp follow up [facility]/urinary retention/gill removal/voiding trial* Per Vita the patient failed one VT while in hospital unclear of date possibly 01/13/25. [facility] 36 Name of Caller: Obi Contact Reason for Appointment: bOi called in to get patient established for urinary retention and not being able to remove gill. Please be advised Office Name: [facility] Urology [facility] Anion gap in Serum or Plasma Ordered By: Gene Duenas on 01-19-2025 Anion gap [Moles/Vol] 11 mmol/L 5-15 [facility] BUN/creatinine ratioOrdered By: Gene Duenas on 01-19-2025 Urea nitrogen/Creatinine [Mass ratio] 29.9 mg/mg High - [facility] Basic Metabolic Profile (BMP )on 01-19-2025 BUN/CRE 29.9 RATIO High - [facility] Comment on above: Order Comment: .1 Performed By: #### L 500.2500, L100.0500 ####[facility] [address], [address] Calcium [Mass/Vol] 9.1 mg/dL Normal 7.6-11.0 [facility] Comment on above: Order Comment: . Performed By: #### L 500.2500, L100.0500 ####[facility] [address], [address] Chloride [Moles/Vol] 103 mmol/L Normal 98-108 [facility] Comment on above: Order Comment: . Performed By: #### L 500.2500, L100.0500 ####[facility] [address] [place], [address] CO2 [Moles/Vol] 22.7 mmol/L Normal 21.0-32.0 [facility] Comment on above: Order Comment: . Performed By: #### L 500.2500, L100.0500 ####[facility] [address] [place], [address] Creatinine [Mass/Vol] 0.65 mg/dL Low 0.70-1.20 [facility] Comment on above: Order Comment: .1 Performed By: #### L 500.2500, L100.0500 ####[facility] [address] [place], [address] GAP 11 Normal 5-15 [facility] Comment on above: Order Comment: . Performed By: #### L 500.2500, L100.0500 ####[facility] [address] [place], [address] GFR/1.73 sq M.predicted among non-blacks MDRD (S/P/Bld) [Vol rate/Area] 88 mL/min/{1.73_m2} Normal >60 [facility] Comment on above: Order Comment: . Result Comment: mL/m in/1.73m2 CKD-EPI Creatinine Equation (2020) Performed By: #### L 500.2500, L100.0500 ####[facility] [address] [place], [address] Glucose [Mass/Vol] 97 mg/dL Normal 70-99 [facility] Comment on above: Order Comment: . Performed By: #### L 500.2500, L100.0500 ####[facility] [address] [place], [address] Potassium [Moles/Vol] 3.9 mmol/L Normal 3.3-5.1 [facility] Comment on above: Order Comment: . Performed By: #### L 500.2500, L100.0500 ####[facility] [address] [place], [address] Sodium [Moles/Vol] 136 mmol/L Normal 133-145 [facility] Comment on above: Order Comment: . Performed By: #### L 500.2500, L100.0500 ####[facility] [address] [place], [address] Urea nitrogen [Mass/Vol] 20 mg/dL High 4-19 [facility] Comment on above: Order Comment: . Performed By: #### L 500.2500, L100.0500 ####[facility] [address] [place], [address] CBC-Complete Blood Cnt No Di ffon 01-19-2025 Erythrocyte distribution width (RBC) [Ratio] 13.3 % Normal 11.6-14.6 [facility] Comment on above: Order Comment: . Performed By: #### L 500.2500, L100.0500 ####[facility] [address], [address] Hematocrit (Bld) [Volume fraction] 35.6 % Low 37-47 [facility] Comment on above: Order Comment: . Performed By: #### L 500.2500, L100.0500 ####[facility] [address] [place], [address] Hemoglobin (Bld) [Mass/Vol] 11.7 g/dL Low 12.0-15.0 [facility] Comment on above: Order Comment: . Performed By: #### L 500.2500, L100.0500 ####[facility] [address] [place], [address] MCH (RBC) [Entitic mass] 29.8 pg Normal 27.0-32.0 [facility] Comment on above: Order Comment: . Performed By: #### L 500.2500, L100.0500 ####[facility] [address] [place], [address] MCHC (RBC) [Mass/Vol] 32.9 g/dL Normal 32-36 [facility] Comment on above: Order Comment: . Performed By: #### L 500.2500, L100.0500 ####[facility] [address] [place], [address] MCV (RBC) [Entitic vol] 90.8 fL Normal 81-99 [facility] Comment on above: Order Comment: . Performed By: #### L 500.2500, L100.0500 ####[facility] [address] [place], [address] Platelet mean volume (Bld) [Entitic vol] 9.7 fL Normal 6.2-12.0 [facility] Comment on above: Order Comment: . Performed By: #### L 500.2500, L100.0500 ####[facility] [address] [place], [address] Platelets (Bld) [#/Vol] 318 10*3/uL Normal 150-450 [facility] Comment on above: Order Comment: .1 Performed By: #### L 500.2500, L100.0500 ####[facility] [address] [place], [address] RBC (Bld) [#/Vol] 3.92 10*6/uL Low 4.2-5.4 [facility] Comment on above: Order Comment: . Performed By: #### L 500.2500, L100.0500 ####[facility] [address] [place], [address] RDW SD 44.8 fl High 35.1-43.9 [facility] Comment on above: Order Comment: . Performed By: #### L 500.2500, L100.0500 ####[facility] [address] [place], [address] WBC (Bld) [#/Vol] 6.5 10*3/uL Normal 4.4-11.0 [facility] Comment on above: Order Comment: . Performed By: #### L 500.2500, L100.0500 ####[facility] [address] [place], [address] Carbon dioxide, total [Moles /volume] in Central venous bloodOrdered By: Gene Duenas on 01-19-2025 CO2 [Moles/Vol] 22.7 mmol/L 21.0-32.0 [facility] Chloride assayOrdered By: Tatum on 01-19-2025 Chloride [Moles/Vol] 103 mmol/L 98-108 [facility] Erythrocyte distribution wid th ratioOrdered By: Gene Duenas on 01-19-2025 Erythrocyte distribution width (RBC) [Ratio] 13.3 % 11.6-14.6 [facility] Erythrocyte distribution wid th standard deviationOrdered By: Gene Duenas on 01-19-2025 Erythrocyte distribution width (RBC) [Ratio] 44.8 fl High 35.1-43.9 [facility] Glomerular filtration rate ( GFR) estimation/1.73 sq m using serum, plasma, or whole bOrdered By: Gene Duenas on 01-19-2025 GFR/1.73 sq M.predicted among non-blacks MDRD (S/P/Bld) [Vol rate/Area] 88 mL/min/{1.73_m2} >60 [facility] Comment on above: mL/min/1.73m2 CKD-EP I Creatinine Equation (2020) Hematocrit Auto (Bld) [Volum e fraction]Ordered By: Gene Duenas on 01-19-2025 Hematocrit (Bld) [Volume fraction] 35.6 % Low 37-47 [facility] Hemoglobin measurementOrdere d By: Gene Duenas on 01-19-2025 Hemoglobin (Bld) [Mass/Vol] 11.7 g/dL Low 12.0-15.0 [facility] MCV (mean corpuscular volume ) determinationOrdered By: Gene Duenas on 01-19-2025 MCV (RBC) [Entitic vol] 90.8 fL 81-99 [facility] Mean corpuscular hemoglobin (MCH) determinationOrdered By: Gene Duenas on 01-19-2025 MCH (RBC) [Entitic mass] 29.8 pg 27.0-32.0 [facility] Mean corpuscular hemoglobin concentration (MCHC) determinationOrdered By: Gene Duenas on 01-19-2025 MCHC (RBC) [Mass/Vol] 32.9 g/dL 32-36 [facility] Mean platelet volume determi nationOrdered By: Gene Duenas on 01-19-2025 Platelet mean volume (Bld) [Entitic vol] 9.7 fL 6.2-12.0 [facility] Platelet countOrdered By: Tatum on 01-19-2025 Platelets (Bld) [#/Vol] 318 10*3/uL 150-450 [facility] Potassium measurement (mass/ volume)Ordered By: Gene Duenas on 01-19-2025 Potassium (Unsp spec) [Mass/Vol] 3.9 mmol/L 3.3-5.1 [facility] RBC Auto (Bld) [#/Vol]Ordere d By: Gene Duenas on 01-19-2025 RBC (Bld) [#/Vol] 3.92 10*6/uL Low 4.2-5.4 [facility] Serum creatinine measurement (mass/volume)Ordered By: Gene Duenas on 01-19-2025 Creatinine [Mass/Vol] 0.65 mg/dL Low 0.70-1.20 [facility] Serum glucose measurement (m ass/volume)Ordered By: Gene Duenas on 01-19-2025 Glucose [Mass/Vol] 97 mg/dL 70-99 [facility] Serum or plasma calcium cindy urement (mass/volume)Ordered By: Gene Duenas on 01-19-2025 Calcium [Mass/Vol] 9.1 mg/dL 7.6-11.0 [facility] Serum or plasma urea nitroge n measurement (mass/volume)Ordered By: Gene Duenas on 01-19-2025 Urea nitrogen [Mass/Vol] 20 mg/dL High 01-10 [facility] Sodium levelOrdered By: Gene Duenas on 01-19-2025 Sodium [Moles/Vol] 136 mmol/L 133-145 [facility] White blood cell (WBC) count Ordered By: Gene Duenas on 01-19-2025 WBC (Bld) [#/Vol] 6.5 10*3/uL 4.4-11.0 [facility] Basic Metabolic Profile (BMP )on 01-16-2025 BUN Normal - [facility] Comment on above: Result Comment: Canc elled via OM: Order cancelled - Patient discharged Performed By: #### L 500.2500, L100.0100 ####[facility] [address] [place], [address] BUN/CRE Normal -20 [facility] Comment on above: Result Comment: Canc elled via OM: Order cancelled - Patient discharged Performed By: #### L 500.2500, L100.0100 ####[facility] [address] [place], [address] Calcium Normal 7.6-11.0 [facility] Comment on above: Result Comment: Canc elled via OM: Order cancelled - Patient discharged Performed By: #### L 500.2500, L100.0100 ####[facility] [address] [place], [address] CL Normal 98-108 [facility] Comment on above: Result Comment: Canc elled via OM: Order cancelled - Patient discharged Performed By: #### L 500.2500, L100.0100 ####[facility] [address] [place], [address] CO2 Normal 21.0-32.0 [facility] Comment on above: Result Comment: Canc elled via OM: Order cancelled - Patient discharged Performed By: #### L 500.2500, L100.0100 ####[facility] [address] [place], [address] CREAT,SERUM Normal 0.70-1.20 [facility] Comment on above: Result Comment: Canc elled via OM: Order cancelled - Patient discharged Performed By: #### L 500.2500, L100.0100 ####[facility] [address] [place], [address] eGFR Normal >60 [facility] Comment on above: Result Comment: Canc elled via OM: Order cancelled - Patient discharged Performed By: #### L 500.2500, L100.0100 ####[facility] [address] [place], [address] GAP Normal 5-15 [facility] Comment on above: Result Comment: Canc elled via OM: Order cancelled - Patient discharged Performed By: #### L 500.2500, L100.0100 ####[facility] [address] [place], [address] GLU Normal 70-99 [facility] Comment on above: Result Comment: Canc elled via OM: Order cancelled - Patient discharged Performed By: #### L 500.2500, L100.0100 ####[facility] [address] [place], [address] Potassium Normal 3.3-5.1 [facility] Comment on above: Result Comment: Canc elled via OM: Order cancelled - Patient discharged Performed By: #### L 500.2500, L100.0100 ####[facility] [address] [place], [address] Basic Metabolic Profile (BMP) Normal 133-145 [facility] Comment on above: Result Comment: Canc elled via OM: Order cancelled - Patient discharged Performed By: #### L 500.2500, L100.0100 ####[facility] [address] [place], [address] CBC W/Diff, Automatedon -2 Absolute Neut Normal 2.0-7.7 [facility] Comment on above: Result Comment: Canc elled via OM: Order cancelled - Patient discharged Performed By: #### L 500.2500, L100.0100 ####[facility] [address] [place], [address] HCT Normal 37-47 [facility] Comment on above: Result Comment: Canc elled via OM: Order cancelled - Patient discharged Performed By: #### L 500.2500, L100.0100 ####[facility] [address] [place], [address] HGB Normal 12.0-15.0 [facility] Comment on above: Result Comment: Canc elled via OM: Order cancelled - Patient discharged Performed By: #### L 500.2500, L100.0100 ####[facility] [address] [place], [address] MCH Normal 27.0-32.0 [facility] Comment on above: Result Comment: Canc elled via OM: Order cancelled - Patient discharged Performed By: #### L 500.2500, L100.0100 ####[facility] [address] [place], [address] MCHC Normal 32-36 [facility] Comment on above: Result Comment: Canc elled via OM: Order cancelled - Patient discharged Performed By: #### L 500.2500, L100.0100 ####[facility] [address] [place], [address] MCV Normal 81-99 [facility] Comment on above: Result Comment: Canc elled via OM: Order cancelled - Patient discharged Performed By: #### L 500.2500, L100.0100 ####[facility] [address] [place], [address] NEUT% Normal 47-70 [facility] Comment on above: Result Comment: Canc elled via OM: Order cancelled - Patient discharged Performed By: #### L 500.2500, L100.0100 ####[facility] [address] [place], [address] PLT Normal 150-450 [facility] Comment on above: Result Comment: Canc elled via OM: Order cancelled - Patient discharged Performed By: #### L 500.2500, L100.0100 ####[facility] [address] [place], [address] RBC Normal 4.2-5.4 [facility] Comment on above: Result Comment: Canc elled via OM: Order cancelled - Patient discharged Performed By: #### L 500.2500, L100.0100 ####[facility] [address] [place], [address] RDW CV Normal 11.6-14.6 [facility] Comment on above: Result Comment: Canc elled via OM: Order cancelled - Patient discharged Performed By: #### L 500.2500, L100.0100 ####[facility] [address] [place], [address] RDW SD Normal 35.1-43.9 [facility] Comment on above: Result Comment: Canc elled via OM: Order cancelled - Patient discharged Performed By: #### L 500.2500, L100.0100 ####[facility] [address] [place], [address] WBC Normal 4.4-11.0 [facility] Comment on above: Result Comment: Canc elled via OM: Order cancelled - Patient discharged Performed By: #### L 500.2500, L100.0100 ####[facility] [address] [place], [address] Absolute lymphocyte countOrd ered By: Juan Diego Marks on 01-11-2025 Lymphocytes Auto (Unsp spec) [#/Vol] 1.28 10*3/uL 0.83-4.51 [facility] Absolute neutrophil countOrd ered By: Juan Diego Marks on 01-11-2025 Neutrophils (Bld) [#/Vol] 2.0 10*3/uL 2.0-7.7 [facility] Anion gap in Serum or Plasma Ordered By: Juan Diego Marks on 01-11-2025 Anion gap [Moles/Vol] 10 mmol/L -15 [facility] Automated lymphocyte count a s percentage of total leukocytesOrdered By: Juan Diego Marks on 01-11-2025 Lymphocytes/100 WBC Auto (Unsp spec) 32.5 % [facility] BUN/creatinine ratioOrdered By: Juan Diego Marks on 01-11-2025 Urea nitrogen/Creatinine [Mass ratio] 24.5 mg/mg High 07-13 [facility] Basic Metabolic Profile (BMP )on 01-11-2025 BUN/CRE 24.5 RATIO High 07-13 [facility] Comment on above: Performed By: #### L 500.2500, L100.0100 ####[facility] [address] [place], [address] Calcium [Mass/Vol] 9.3 mg/dL Normal 7.6-11.0 [facility] Comment on above: Performed By: #### L 500.2500, L100.0100 ####[facility] [address] [place], [address] Chloride [Moles/Vol] 104 mmol/L Normal 98-108 [facility] Comment on above: Performed By: #### L 500.2500, L100.0100 ####[facility] [address] [place], [address] CO2 [Moles/Vol] 26.4 mmol/L Normal 21.0-32.0 [facility] Comment on above: Performed By: #### L 500.2500, L100.0100 ####[facility] [address] [place], [address] Creatinine [Mass/Vol] 0.62 mg/dL Low 0.70-1.20 [facility] Comment on above: Performed By: #### L 500.2500, L100.0100 ####[facility] [address] [place], [address] ECRCL 58.45 ml/min Normal 50-250 [facility] Comment on above: Performed By: #### L 500.2500, L100.0100 ####[facility] [address] [place], [address] GAP 10 Normal 5-15 [facility] Comment on above: Performed By: #### L 500.2500, L100.0100 ####[facility] [address] [place], [address] GFR/1.73 sq M.predicted among non-blacks MDRD (S/P/Bld) [Vol rate/Area] 89 mL/min/{1.73_m2} Normal >60 [facility] Comment on above: Result Comment: mL/m in/1.73m2 CKD-EPI Creatinine Equation (2020) Performed By: #### L 500.2500, L100.0100 ####[facility] [address] [place], [address] Glucose [Mass/Vol] 93 mg/dL Normal 70-99 [facility] Comment on above: Performed By: #### L 500.2500, L100.0100 ####[facility] [address] [place], [address] Potassium [Moles/Vol] 4.0 mmol/L Normal 3.3-5.1 [facility] Comment on above: Performed By: #### L 500.2500, L100.0100 ####[facility] [address] [place], [address] Sodium [Moles/Vol] 141 mmol/L Normal 133-145 [facility] Comment on above: Performed By: #### L 500.2500, L100.0100 ####[facility] [address] [place], [address] Urea nitrogen [Mass/Vol] 15 mg/dL Normal 4-19 [facility] Comment on above: Performed By: #### L 500.2500, L100.0100 ####[facility] [address] [place], [address] Basophil percentageOrdered B y: Juan Diego Marks on 01-11-2025 Basophils/100 WBC (Bld) 0.8 % 0-1 [facility] CBC W/Diff, Automatedon 12-24 Absolute Lymph 1.28 X10 3/uL Normal 0.83-4.51 [facility] Comment on above: Performed By: #### L 500.2500, L100.0100 ####[facility] [address], [address] Absolute Neut 2.0 X10 3/uL Normal 2.0-7.7 [facility] Comment on above: Performed By: #### L 500.2500, L100.0100 ####[facility] [address] [place], [address] Basophils/100 WBC (Bld) 0.8 % Normal 0-1 [facility] Comment on above: Performed By: #### L 500.2500, L100.0100 ####[facility] [address] [place], [address] Eosinophils/100 WBC (Bld) 7.6 % High 0-5 [facility] Comment on above: Performed By: #### L 500.2500, L100.0100 ####[facility] [address] [place], [address] Erythrocyte distribution width (RBC) [Ratio] 14.0 % Normal 11.6-14.6 [facility] Comment on above: Performed By: #### L 500.2500, L100.0100 ####[facility] [address] [place], [address] Hematocrit (Bld) [Volume fraction] 37.6 % Normal 37-47 [facility] Comment on above: Performed By: #### L 500.2500, L100.0100 ####[facility] [address] [place], [address] Hemoglobin (Bld) [Mass/Vol] 12.0 g/dL Normal 12.0-15.0 [facility] Comment on above: Performed By: #### L 500.2500, L100.0100 ####[facility] [address], [address] IG% 0.300 Normal 0.0-0.9 [facility] Comment on above: Result Comment: IG% - Immature Granulocytes (promyelocytes, myelocytes andmetamyelocytes) > 1% indicates that a LEFT SHIFT is Present. Performed By: #### L 500.2500, L100.0100 ####[facility] [address] [place], [address] Lymphocytes/100 WBC (Bld) 32.5 % Normal 19-41 [facility] Comment on above: Performed By: #### L 500.2500, L100.0100 ####[facility] [address] [place], [address] MCH (RBC) [Entitic mass] 29.9 pg Normal 27.0-32.0 [facility] Comment on above: Performed By: #### L 500.2500, L100.0100 ####[facility] [address] [place], [address] MCHC (RBC) [Mass/Vol] 31.9 g/dL Low 32-36 [facility] Comment on above: Performed By: #### L 500.2500, L100.0100 ####[facility] [address] [place], [address] MCV (RBC) [Entitic vol] 93.5 fL Normal 81-99 [facility] Comment on above: Performed By: #### L 500.2500, L100.0100 ####[facility] [address] [place], [address] Monocytes/100 WBC (Bld) 9.1 % Normal 0-10 [facility] Comment on above: Performed By: #### L 500.2500, L100.0100 ####[facility] [address] [place], [address] Neutrophils/100 WBC (Bld) 49.7 % Normal 47-70 [facility] Comment on above: Performed By: #### L 500.2500, L100.0100 ####[facility] [address] [place], [address] Nucleated RBC (Bld) [#/Vol] 0 10*3/uL Normal 0-5 [facility] Comment on above: Performed By: #### L 500.2500, L100.0100 ####[facility] [address] [place], [address] Platelet mean volume (Bld) [Entitic vol] 9.4 fL Normal 6.2-12.0 [facility] Comment on above: Performed By: #### L 500.2500, L100.0100 ####[facility] [address] [place], [address] Platelets (Bld) [#/Vol] 336 10*3/uL Normal 150-450 [facility] Comment on above: Performed By: #### L 500.2500, L100.0100 ####[facility] [address] [place], [address] RBC (Bld) [#/Vol] 4.02 10*6/uL Low 4.2-5.4 [facility] Comment on above: Performed By: #### L 500.2500, L100.0100 ####[facility] [address] [place], [address] RDW SD 48.6 fl High 35.1-43.9 [facility] Comment on above: Performed By: #### L 500.2500, L100.0100 ####[facility] [address] [place], [address] WBC (Bld) [#/Vol] 3.9 10*3/uL Low 4.4-11.0 [facility] Comment on above: Performed By: #### L 500.2500, L100.0100 ####[facility] [address] [place], [address] Carbon dioxide, total [Moles /volume] in Central venous bloodOrdered By: Juan Diego Marks on 01-11-2025 CO2 [Moles/Vol] 26.4 mmol/L 21.0-32.0 [facility] Chloride assayOrdered By: Willard Marks on 01-11-2025 Chloride [Moles/Vol] 104 mmol/L 98-108 [facility] Eosinophil percentageOrdered By: Juan Diego Marks 01-11-2025 Eosinophils/100 WBC (Bld) 7.6 % High 0-5 [facility] Erythrocyte distribution wid th ratioOrdered By: Juan Diego Marks 01-11-2025 Erythrocyte distribution width (RBC) [Ratio] 14.0 % 11.6-14.6 [facility] Erythrocyte distribution wid th standard deviationOrdered By: Juan Diego Marks 01-11-2025 Erythrocyte distribution width (RBC) [Ratio] 48.6 fl High 35.1-43.9 [facility] Glomerular filtration rate ( GFR) estimation/1.73 sq m using serum, plasma, or whole bOrdered By: Juan Diego Marks 01-11-2025 GFR/1.73 sq M.predicted among non-blacks MDRD (S/P/Bld) [Vol rate/Area] 89 mL/min/{1.73_m2} >60 [facility] Comment on above: mL/min/1.73m2 CKD-EP I Creatinine Equation (2020) Hematocrit Auto (Bld) [Volum e fraction]Ordered By: Juan Diego Marks 01-11-2025 Hematocrit (Bld) [Volume fraction] 37.6 % 37-47 [facility] Hemoglobin measurementOrdere d By: Juan Diego Marks 01-11-2025 Hemoglobin (Bld) [Mass/Vol] 12.0 g/dL 12.0-15.0 [facility] Immature granulocytes/100 WB C Auto (Bld)Ordered By: Juan Diego Marks 01-11-2025 Immature granulocytes/100 WBC (Bld) 0.300 % 0.0-0.9 [facility] Comment on above: IG% - Immature Granu locytes (promyelocytes, myelocytes and metamyelocytes) > 1% indicates that a LEFT SHIFT is Present. MCV (mean corpuscular volume ) determinationOrdered By: Juan Diego Marks 01-11-2025 MCV (RBC) [Entitic vol] 93.5 fL 81-99 [facility] Mean corpuscular hemoglobin (MCH) determinationOrdered By: Juan Diego Marks on 01-11-2025 MCH (RBC) [Entitic mass] 29.9 pg 27.0-32.0 [facility] Mean corpuscular hemoglobin concentration (MCHC) determinationOrdered By: Juan Diego Marks on 01-11-2025 MCHC (RBC) [Mass/Vol] 31.9 g/dL Low 32-36 [facility] Mean platelet volume determi nationOrdered By: Juan Diego Marks on 01-11-2025 Platelet mean volume (Bld) [Entitic vol] 9.4 fL 6.2-12.0 [facility] Monocyte percentageOrdered B y: Juan Diego Marks on 01-11-2025 Monocytes/100 WBC (Bld) 9.1 % 0-10 [facility] Neutrophil percentageOrdered By: Juan Diego Marks on 01-11-2025 Neutrophils/100 WBC (Bld) 49.7 % 47-70 [facility] Nucleated red blood cell per centageOrdered By: Juan Diego Marks on 01-11-2025 Nucleated RBC/100 WBC (Bld) [Ratio] 0 % 0-5 [facility] Platelet countOrdered By: Willard Marks on 01-11-2025 Platelets (Bld) [#/Vol] 336 10*3/uL 150-450 [facility] Potassium measurement (mass/ volume)Ordered By: Juan Diego Marks on 01-11-2025 Potassium (Unsp spec) [Mass/Vol] 4.0 mmol/L 3.3-5.1 [facility] RBC Auto (Bld) [#/Vol]Ordere d By: Juan Diego Marks on 01-11-2025 RBC (Bld) [#/Vol] 4.02 10*6/uL Low 4.2-5.4 [facility] Serum creatinine measurement (mass/volume)Ordered By: Juan Diego Marks on 01-11-2025 Creatinine [Mass/Vol] 0.62 mg/dL Low 0.70-1.20 [facility] Serum glucose measurement (m ass/volume)Ordered By: Juan Diego Marks on 01-11-2025 Glucose [Mass/Vol] 93 mg/dL 70-99 [facility] Serum or plasma calcium cindy urement (mass/volume)Ordered By: Juan Diego Marks on 01-11-2025 Calcium [Mass/Vol] 9.3 mg/dL 7.6-11.0 [facility] Serum or plasma urea nitroge n measurement (mass/volume)Ordered By: Juan Diego Marks on 01-11-2025 Urea nitrogen [Mass/Vol] 15 mg/dL 4-19 [facility] Sodium levelOrdered By: Juan Diego Marks on 01-11-2025 Sodium [Moles/Vol] 141 mmol/L 133-145 [facility] White blood cell (WBC) count Ordered By: Juan Diego Marks on 01-11-2025 WBC (Bld) [#/Vol] 3.9 10*3/uL Low 4.4-11.0 [facility] Basic Metabolic Profile (BMP )on 01-09-2025 BUN/CRE 20.7 RATIO High - [facility] Comment on above: Performed By: #### L 100.0100, L500.2500 ####[facility] [address] [place], [address] Calcium [Mass/Vol] 9.0 mg/dL Normal 7.6-11.0 [facility] Comment on above: Performed By: #### L 100.0100, L500.2500 ####[facility] [address] [place], [address] Chloride [Moles/Vol] 104 mmol/L Normal 98-108 [facility] Comment on above: Performed By: #### L 100.0100, L500.2500 ####[facility] [address] [place], [address] CO2 [Moles/Vol] 23.2 mmol/L Normal 21.0-32.0 [facility] Comment on above: Performed By: #### L 100.0100, L500.2500 ####[facility] [address] [place], [address] Creatinine [Mass/Vol] 0.74 mg/dL Normal 0.70-1.20 [facility] Comment on above: Performed By: #### L 100.0100, L500.2500 ####[facility] [address] [place], [address] ECRCL 58.45 ml/min Normal 50-250 [facility] Comment on above: Performed By: #### L 100.0100, L500.2500 ####[facility] [address] [place], [address] GAP 11 Normal 5-15 [facility] Comment on above: Performed By: #### L 100.0100, L500.2500 ####[facility] [address] [place], [address] GFR/1.73 sq M.predicted among non-blacks MDRD (S/P/Bld) [Vol rate/Area] 82 mL/min/{1.73_m2} Normal >60 [facility] Comment on above: Result Comment: mL/m in/1.73m2 CKD-EPI Creatinine Equation (2020) Performed By: #### L 100.0100, L500.2500 ####[facility] [address] [place], [address] Glucose [Mass/Vol] 96 mg/dL Normal 70-99 [facility] Comment on above: Performed By: #### L 100.0100, L500.2500 ####[facility] [address] [place], [address] Potassium [Moles/Vol] 3.7 mmol/L Normal 3.3-5.1 [facility] Comment on above: Performed By: #### L 100.0100, L500.2500 ####[facility] [address] [place], [address] Sodium [Moles/Vol] 137 mmol/L Normal 133-145 [facility] Comment on above: Performed By: #### L 100.0100, L500.2500 ####[facility] [address], [address] Urea nitrogen [Mass/Vol] 15 mg/dL Normal 4-19 [facility] Comment on above: Performed By: #### L 100.0100, L500.2500 ####[facility] [address] [place], [address] CBC W/Diff, Automatedon 12-23 Absolute Lymph 1.17 X10 3/uL Normal 0.83-4.51 [facility] Comment on above: Performed By: #### L 100.0100, L500.2500 ####[facility] [address] [place], [address] Absolute Neut 2.5 X10 3/uL Normal 2.0-7.7 [facility] Comment on above: Performed By: #### L 100.0100, L500.2500 ####[facility] [address] [place], [address] Basophils/100 WBC (Bld) 0.9 % Normal 0-1 [facility] Comment on above: Performed By: #### L 100.0100, L500.2500 ####[facility] [address] [place], [address] Eosinophils/100 WBC (Bld) 7.0 % High 0-5 [facility] Comment on above: Performed By: #### L 100.0100, L500.2500 ####[facility] [address] [place], [address] Erythrocyte distribution width (RBC) [Ratio] 14.1 % Normal 11.6-14.6 [facility] Comment on above: Performed By: #### L 100.0100, L500.2500 ####[facility] [address] [place], [address] Hematocrit (Bld) [Volume fraction] 33.1 % Low 37-47 [facility] Comment on above: Performed By: #### L 100.0100, L500.2500 ####[facility] [address] [place], [address] Hemoglobin (Bld) [Mass/Vol] 10.9 g/dL Low 12.0-15.0 [facility] Comment on above: Performed By: #### L 100.0100, L500.2500 ####[facility] [address] [place], [address] IG% 0.400 Normal 0.0-0.9 [facility] Comment on above: Result Comment: IG% - Immature Granulocytes (promyelocytes, myelocytes andmetamyelocytes) > 1% indicates that a LEFT SHIFT is Present. Performed By: #### L 100.0100, L500.2500 ####[facility] [address] [place], [address] Lymphocytes/100 WBC (Bld) 26.2 % Normal 19-41 [facility] Comment on above: Performed By: #### L 100.0100, L500.2500 ####[facility] [address] [place], [address] MCH (RBC) [Entitic mass] 30.1 pg Normal 27.0-32.0 [facility] Comment on above: Performed By: #### L 100.0100, L500.2500 ####[facility] [address] [place], [address] MCHC (RBC) [Mass/Vol] 32.9 g/dL Normal 32-36 [facility] Comment on above: Performed By: #### L 100.0100, L500.2500 ####[facility] [address] [place], [address] MCV (RBC) [Entitic vol] 91.4 fL Normal 81-99 [facility] Comment on above: Performed By: #### L 100.0100, L500.2500 ####[facility] [address] [place], [address] Monocytes/100 WBC (Bld) 10.5 % High 0-10 [facility] Comment on above: Performed By: #### L 100.0100, L500.2500 ####[facility] [address] [place], [address] Neutrophils/100 WBC (Bld) 55.0 % Normal 47-70 [facility] Comment on above: Performed By: #### L 100.0100, L500.2500 ####[facility] [address] [place], [address] Nucleated RBC (Bld) [#/Vol] 0 10*3/uL Normal 0-5 [facility] Comment on above: Performed By: #### L 100.0100, L500.2500 ####[facility] [address] [place], [address] Platelet mean volume (Bld) [Entitic vol] 9.4 fL Normal 6.2-12.0 [facility] Comment on above: Performed By: #### L 100.0100, L500.2500 ####[facility] [address] [place], [address] Platelets (Bld) [#/Vol] 318 10*3/uL Normal 150-450 [facility] Comment on above: Performed By: #### L 100.0100, L500.2500 ####[facility] [address] [place], [address] RBC (Bld) [#/Vol] 3.62 10*6/uL Low 4.2-5.4 [facility] Comment on above: Performed By: #### L 100.0100, L500.2500 ####[facility] [address] [place], [address] RDW SD 47.6 fl High 35.1-43.9 [facility] Comment on above: Performed By: #### L 100.0100, L500.2500 ####[facility] [address] [place], [address] WBC (Bld) [#/Vol] 4.5 10*3/uL Normal 4.4-11.0 [facility] Comment on above: Performed By: #### L 100.0100, L500.2500 ####[facility] [address] [place], [address] Knee 1 or 2 Viewson 01-06-20 25 Knee 1 or 2 Views Normal [facility] Basic Metabolic Profile (BMP )on 01-02-2025 BUN/CRE 29.7 RATIO High - [facility] Comment on above: Performed By: #### L 500.2500, L100.0100 ####[facility] [address] [place], [address] Calcium [Mass/Vol] 9.1 mg/dL Normal 7.6-11.0 [facility] Comment on above: Performed By: #### L 500.2500, L100.0100 ####[facility] [address] [place], [address] Chloride [Moles/Vol] 104 mmol/L Normal 98-108 [facility] Comment on above: Performed By: #### L 500.2500, L100.0100 ####[facility] [address] [place], [address] CO2 [Moles/Vol] 25.7 mmol/L Normal 21.0-32.0 [facility] Comment on above: Performed By: #### L 500.2500, L100.0100 ####[facility] [address] [place], [address] Creatinine [Mass/Vol] 0.74 mg/dL Normal 0.70-1.20 [facility] Comment on above: Performed By: #### L 500.2500, L100.0100 ####[facility] [address] [place], [address] ECRCL 59.70 ml/min Normal 50-250 [facility] Comment on above: Performed By: #### L 500.2500, L100.0100 ####[facility] [address] [place], [address] GAP 9 Normal 5-15 [facility] Comment on above: Performed By: #### L 500.2500, L100.0100 ####[facility] [address] [place], [address] GFR/1.73 sq M.predicted among non-blacks MDRD (S/P/Bld) [Vol rate/Area] 82 mL/min/{1.73_m2} Normal >60 [facility] Comment on above: Result Comment: mL/m in/1.73m2 CKD-EPI Creatinine Equation (2020) Performed By: #### L 500.2500, L100.0100 ####[facility] [address] [place], [address] Glucose [Mass/Vol] 94 mg/dL Normal 70-99 [facility] Comment on above: Performed By: #### L 500.2500, L100.0100 ####[facility] [address] [place], [address] Potassium [Moles/Vol] 4.2 mmol/L Normal 3.3-5.1 [facility] Comment on above: Performed By: #### L 500.2500, L100.0100 ####[facility] [address] [place], [address] Sodium [Moles/Vol] 138 mmol/L Normal 133-145 [facility] Comment on above: Performed By: #### L 500.2500, L100.0100 ####[facility] [address] [place], [address] Urea nitrogen [Mass/Vol] 22 mg/dL High 4-19 [facility] Comment on above: Performed By: #### L 500.2500, L100.0100 ####[facility] [address] [place], [address] CBC W/Diff, Automatedon 12-23 Absolute Lymph 1.20 X10 3/uL Normal 0.83-4.51 [facility] Comment on above: Performed By: #### L 500.2500, L100.0100 ####[facility] [address] [place], [address] Absolute Neut 2.0 X10 3/uL Normal 2.0-7.7 [facility] Comment on above: Performed By: #### L 500.2500, L100.0100 ####[facility] [address] [place], [address] Basophils/100 WBC (Bld) 1.0 % Normal 0-1 [facility] Comment on above: Performed By: #### L 500.2500, L100.0100 ####[facility] [address] [place], [address] Eosinophils/100 WBC (Bld) 10.2 % High 0-5 [facility] Comment on above: Performed By: #### L 500.2500, L100.0100 ####[facility] [address] [place], [address] Erythrocyte distribution width (RBC) [Ratio] 14.6 % Normal 11.6-14.6 [facility] Comment on above: Performed By: #### L 500.2500, L100.0100 ####[facility] [address] [place], [address] Hematocrit (Bld) [Volume fraction] 32.1 % Low 37-47 [facility] Comment on above: Performed By: #### L 500.2500, L100.0100 ####[facility] [address] [place], [address] Hemoglobin (Bld) [Mass/Vol] 10.3 g/dL Low 12.0-15.0 [facility] Comment on above: Performed By: #### L 500.2500, L100.0100 ####[facility] [address] [place], [address] IG% 0.200 Normal 0.0-0.9 [facility] Comment on above: Result Comment: IG% - Immature Granulocytes (promyelocytes, myelocytes andmetamyelocytes) > 1% indicates that a LEFT SHIFT is Present. Performed By: #### L 500.2500, L100.0100 ####[facility] [address] [place], [address] Lymphocytes/100 WBC (Bld) 29.1 % Normal 19-41 [facility] Comment on above: Performed By: #### L 500.2500, L100.0100 ####[facility] [address] [place], [address] MCH (RBC) [Entitic mass] 29.9 pg Normal 27.0-32.0 [facility] Comment on above: Performed By: #### L 500.2500, L100.0100 ####[facility] [address] [place], [address] MCHC (RBC) [Mass/Vol] 32.1 g/dL Normal 32-36 [facility] Comment on above: Performed By: #### L 500.2500, L100.0100 ####[facility] [address] [place], [address] MCV (RBC) [Entitic vol] 93.3 fL Normal 81-99 [facility] Comment on above: Performed By: #### L 500.2500, L100.0100 ####[facility] [address] [place], [address] Monocytes/100 WBC (Bld) 10.0 % Normal 0-10 [facility] Comment on above: Performed By: #### L 500.2500, L100.0100 ####[facility] [address], [address] Neutrophils/100 WBC (Bld) 49.5 % Normal 47-70 [facility] Comment on above: Performed By: #### L 500.2500, L100.0100 ####[facility] [address] [place], [address] Nucleated RBC (Bld) [#/Vol] 0 10*3/uL Normal 0-5 [facility] Comment on above: Performed By: #### L 500.2500, L100.0100 ####[facility] [address] [place], [address] Platelet mean volume (Bld) [Entitic vol] 9.4 fL Normal 6.2-12.0 [facility] Comment on above: Performed By: #### L 500.2500, L100.0100 ####[facility] [address] [place], [address] Platelets (Bld) [#/Vol] 359 10*3/uL Normal 150-450 [facility] Comment on above: Performed By: #### L 500.2500, L100.0100 ####[facility] [address] [place], [address] RBC (Bld) [#/Vol] 3.44 10*6/uL Low 4.2-5.4 [facility] Comment on above: Performed By: #### L 500.2500, L100.0100 ####[facility] [address] [place], [address] RDW SD 50.0 fl High 35.1-43.9 [facility] Comment on above: Performed By: #### L 500.2500, L100.0100 ####[facility] [address] [place], [address] WBC (Bld) [#/Vol] 4.1 10*3/uL Low 4.4-11.0 [facility] Comment on above: Performed By: #### L 500.2500, L100.0100 ####[facility] [address] [place], [address] Urine Cultureon 01-01-2025 URC Normal [facility] Comment on above: Performed By: #### M 100.2200, L400.0001 ####[facility] [address] [place], [address] Bilirubin Test strip Ql (U)O rdered By: Juan Diego Marks on 12-30-2024 Bilirubin Ql (U) Negative Negative [facility] Ketones Test strip Ql (U)Ord ered By: Juan Diego Marks on 12-30-2024 Ketones Ql (U) Negative Negative [facility] Microscopic analysis of urin e for red blood cells (RBC)Ordered By: Juan Diego Marks on 12-30-2024 Microscopic analysis of urine for red blood cells (RBC) 0 SEEN /hpf 0-5 [facility] Mucus LM Ql (Urine sed)Order ed By: Juan Diego Marks on 12-30-2024 Mucus Ql (Urine sed) 0 SEEN /hpf [facility] Nitrite Test strip Ql (U)Ord ered By: Juan Diego Marks on 12-30-2024 Nitrite Ql (U) Negative Negative [facility] Protein Test strip Ql (U)Ord ered By: Juan Diego Marks on 12-30-2024 Protein Ql (U) 100 mg/dl High Negative [facility] Squamous epithelial cells de tection in urine sediment by light microscopyOrdered By: Juan Diego Marks on 12-30-2024 Epithelial cells.squamous LM Ql (Urine sed) 0 SEEN /hpf 5-10 [facility] Urinalysis, Completeon 12-30 WBC >100 SEEN Normal 0-5 [facility] Comment on above: Order Comment: TREVOR TER SPECIMEN Result Comment: Micr oscopic field is filled. Other elements may beobscured. Performed By: #### M 100.2200, L400.0001 ####[facility] [address] [place], [address] BACTERIA 0 SEEN Normal None Seen [facility] Comment on above: Order Comment: TREVOR TER SPECIMEN Performed By: #### M 100.2200, L400.0001 ####[facility] [address] [place], [address] EPI,SQUAMOUS 0 SEEN Normal 5-10 [facility] Comment on above: Order Comment: TREVOR TER SPECIMEN Performed By: #### M 100.2200, L400.0001 ####[facility] [address] [place], [address] Mucus Ql (Urine sed) 0 SEEN Normal [facility] Comment on above: Order Comment: TREVOR TER SPECIMEN Performed By: #### M 100.2200, L400.0001 ####[facility] [address] [place], [address] RBC 0 SEEN Normal 0-5 [facility] Comment on above: Order Comment: TREVOR TER SPECIMEN Performed By: #### M 100.2200, L400.0001 ####[facility] [address] [place], [address] Urine clarityOrdered By: Juan Diego Marks on 12-30-2024 Clarity (U) Turbid Clear [facility] Comment on above: MucousyPrevious repo rted result: Turbid Edited by: MIKEL on 12/30/24:1306 AMENDED REPORT 12/30/24 1306 CLARITY previously reported as: Turbid Urine color determinationOrd ered By: Juan Diego Marks on 12-30-2024 Color (U) Yellow Yellow [facility] Urine cultureOrdered By: Juan Diego Marks on 12-30-2024 Bacteria identified Cx Nom (U) Klebsiella pneumoniae sp pneum Abnormal [facility] Urine glucose detectionOrder ed By: Juan Diego Marks on 12-30-2024 Glucose Ql (U) Normal mg/dl Normal [facility] Urine leukocyte esterase det ection by dipstickOrdered By: Juan Diego Marks on 12-30-2024 Leukocyte esterase Test strip Ql (U) 500 /ul High Negative [facility] Urine pHOrdered By: Juan Diego Marks on 12-30-2024 pH (U) 7.0 [pH] 5.0 - 8.0 [facility] Urine sediment bacteria coun t by microscopy (number/high power field)Ordered By: Juan Diego Marks on 12-30-2024 Bacteria LM.HPF (Urine sed) [#/Area] 0 /[HPF] None Seen [facility] Urine specific gravity measu rementOrdered By: Juan Diego Marks on 12-30-2024 Specific gravity (U) [Rel density] 1.015 1.002-1.030 [facility] Urine urobilinogen measureme ntOrdered By: Juan Diego Marks on 12-30-2024 Urobilinogen Ql (U) Normal mg/dl Normal [facility] White blood cell countOrdere d By: Juan Diego Marks on 12-30-2024 White blood cell count >100 SEEN /hpf 0-5 [facility] Comment on above: Microscopic field is filled. Other elements may be obscured. Knee 1 or 2 Viewson 12-30-19 25 Knee 1 or 2 Views Normal [facility] Basic Metabolic Profile (BMP )on 12-26-2024 BUN/CRE 16.4 RATIO Normal 10-20 [facility] Comment on above: Result Comment: AMENDED REPORT 12/26/24 1353 BUN/CRE previously reported as: 16.2 RATIO Performed By: #### L 100.0100, L500.2500 ####[facility] [address] [place], [address] CO2 [Moles/Vol] 19.5 mmol/L Low 21.0-32.0 [facility] Comment on above: Result Comment: AMENDED REPORT 12/26/241352 CO2 previously reported as: 21.2 mmol/L Performed By: #### L 100.0100, L500.2500 ####[facility] [address] [place], [address] Creatinine [Mass/Vol] 1.16 mg/dL Normal 0.70-1.20 [facility] Comment on above: Result Comment: AMENDED REPORT 12/26/241352 CREAT,SERUM previously reported as: 1.17 mg/dL Performed By: #### L 100.0100, L500.2500 ####[facility] [address] [place], [address] ECRCL 41.79 ml/min Low 50-250 [facility] Comment on above: Result Comment: AMENDED REPORT 12/26/241352 Estimated CRCL previously reported as: 41.43 L ml/min Performed By: #### L 100.0100, L500.2500 ####[facility] [address] [place], [address] GAP 16 High 5-15 [facility] Comment on above: Result Comment: AMENDED REPORT 12/26/241352 GAP previously reported as: 14 Performed By: #### L 100.0100, L500.2500 ####[facility] [address] [place], [address] Glucose [Mass/Vol] 118 mg/dL High 70-99 [facility] Comment on above: Result Comment: AMENDED REPORT 12/26/241352 GLU previously reported as: 119 H mg/dL Performed By: #### L 100.0100, L500.2500 ####[facility] [address] [place], [address] CBC W/Diff, Automatedon 04-0 -2024 Absolute Lymph 1.14 X10 3/uL Normal 0.83-4.51 [facility] Comment on above: Performed By: #### L 100.0100, L500.2500 ####[facility] [address] [place], [address] Absolute Neut 3.8 X10 3/uL Normal 2.0-7.7 [facility] Comment on above: Performed By: #### L 100.0100, L500.2500 ####[facility] [address] [place], [address] Basophils/100 WBC (Bld) 0.5 % Normal 0-1 [facility] Comment on above: Performed By: #### L 100.0100, L500.2500 ####[facility] [address] [place], [address] Eosinophils/100 WBC (Bld) 5.2 % High 0-5 [facility] Comment on above: Performed By: #### L 100.0100, L500.2500 ####[facility] [address] [place], [address] Erythrocyte distribution width (RBC) [Ratio] 14.2 % Normal 11.6-14.6 [facility] Comment on above: Performed By: #### L 100.0100, L500.2500 ####[facility] [address] [place], [address] Hematocrit (Bld) [Volume fraction] 32.9 % Low 37-47 [facility] Comment on above: Performed By: #### L 100.0100, L500.2500 ####[facility] [address] [place], [address] Hemoglobin (Bld) [Mass/Vol] 10.6 g/dL Low 12.0-15.0 [facility] Comment on above: Performed By: #### L 100.0100, L500.2500 ####[facility] [address] [place], [address] IG% 0.500 Normal 0.0-0.9 [facility] Comment on above: Result Comment: IG% - Immature Granulocytes (promyelocytes, myelocytes andmetamyelocytes) > 1% indicates that a LEFT SHIFT is Present. Performed By: #### L 100.0100, L500.2500 ####[facility] [address] [place], [address] Lymphocytes/100 WBC (Bld) 19.9 % Normal 19-41 [facility] Comment on above: Performed By: #### L 100.0100, L500.2500 ####[facility] [address] [place], [address] MCH (RBC) [Entitic mass] 29.8 pg Normal 27.0-32.0 [facility] Comment on above: Performed By: #### L 100.0100, L500.2500 ####[facility] [address] [place], [address] MCHC (RBC) [Mass/Vol] 32.2 g/dL Normal 32-36 [facility] Comment on above: Performed By: #### L 100.0100, L500.2500 ####[facility] [address] [place], [address] MCV (RBC) [Entitic vol] 92.4 fL Normal 81-99 [facility] Comment on above: Performed By: #### L 100.0100, L500.2500 ####[facility] [address] [place], [address] Monocytes/100 WBC (Bld) 7.5 % Normal 0-10 [facility] Comment on above: Performed By: #### L 100.0100, L500.2500 ####[facility] [address] [place], [address] Neutrophils/100 WBC (Bld) 66.4 % Normal 47-70 [facility] Comment on above: Performed By: #### L 100.0100, L500.2500 ####[facility] [address] [place], [address] Nucleated RBC (Bld) [#/Vol] 0 10*3/uL Normal 0-5 [facility] Comment on above: Performed By: #### L 100.0100, L500.2500 ####[facility] [address] [place], [address] Platelet mean volume (Bld) [Entitic vol] 9.0 fL Normal 6.2-12.0 [facility] Comment on above: Performed By: #### L 100.0100, L500.2500 ####[facility] [address] [place], [address] Platelets (Bld) [#/Vol] 381 10*3/uL Normal 150-450 [facility] Comment on above: Performed By: #### L 100.0100, L500.2500 ####[facility] [address] [place], [address] RBC (Bld) [#/Vol] 3.56 10*6/uL Low 4.2-5.4 [facility] Comment on above: Performed By: #### L 100.0100, L500.2500 ####[facility] [address] [place], [address] RDW SD 47.4 fl High 35.1-43.9 [facility] Comment on above: Performed By: #### L 100.0100, L500.2500 ####[facility] [address] [place], [address] WBC (Bld) [#/Vol] 5.7 10*3/uL Normal 4.4-11.0 [facility] Comment on above: Performed By: #### L 100.0100, L500.2500 ####[facility] [address] [place], [address] Urine Cultureon 12-24-2024 URC Normal [facility] Comment on above: Performed By: #### M 100.2200 ####[facility] [address] [place], [address] Knee 1 or 2 Viewson 12-23-19 25 Knee 1 or 2 Views Normal [facility] HH, Hemoglobin AND Hematocri ton 12-20-2024 Hematocrit (Bld) [Volume fraction] 29.5 % Low 37-47 [facility] Comment on above: Performed By: #### L 100.0600, L503.6030 ####[facility] [address] [place], [address] Hemoglobin (Bld) [Mass/Vol] 9.8 g/dL Low 12.0-15.0 [facility] Comment on above: Performed By: #### L 100.0600, L503.6030 ####[facility] [address] [place], [address] Iron measurement (mass/mass) Ordered By: Juan Diego Marks on 12-20-2024 Iron (Unsp spec) [Mass/Mass] 36 ug/dL Low 50-170 [facility] Iron+Iron Binding Capacityon 12-20-2024 Iron [Mass/Vol] 36 ug/dL Low 50-170 [facility] Comment on above: Performed By: #### L 100.0600, L503.6030 ####[facility] [address] [place], [address] IRON SATURATION 20.0 Normal 13-59 [facility] Comment on above: Performed By: #### L 100.0600, L503.6030 ####[facility] [address] [place], [address] UIBC 146 ug/dL Low 228-428 [facility] Comment on above: Performed By: #### L 100.0600, L503.6030 ####[facility] [address] [place], [address] No Panel InformationOrdered By: Juan Diego Marks on 12-20-2024 Unsaturated Iron Binding Capacity 146 ug/dL Low 228-428 [facility] Serum or plasma iron saturat ion measurement (mass fraction)Ordered By: Juan Diego Marks on 12-20-2024 Iron saturation [Mass fraction] 20.0 % 13-59 [facility] 12 Lead EKGon 12-19-2024 12 Lead EKG Normal [facility] Basic Metabolic Profile (BMP )on 12-19-2024 BUN/CRE 26.6 RATIO High 10-20 [facility] Comment on above: Performed By: #### L 500.2500, L100.0100 ####[facility] [address] [place], [address] Calcium [Mass/Vol] 8.4 mg/dL Normal 7.6-11.0 [facility] Comment on above: Performed By: #### L 500.2500, L100.0100 ####[facility] [address] [place], [address] Chloride [Moles/Vol] 101 mmol/L Normal 98-108 [facility] Comment on above: Performed By: #### L 500.2500, L100.0100 ####[facility] [address] [place], [address] CO2 [Moles/Vol] 26.1 mmol/L Normal 21.0-32.0 [facility] Comment on above: Performed By: #### L 500.2500, L100.0100 ####[facility] [address] [place], [address] Creatinine [Mass/Vol] 0.65 mg/dL Low 0.70-1.20 [facility] Comment on above: Performed By: #### L 500.2500, L100.0100 ####[facility] [address] [place], [address] ECRCL 60.58 ml/min Normal 50-250 [facility] Comment on above: Performed By: #### L 500.2500, L100.0100 ####[facility] [address] [place], [address] GAP 7 Normal 5-15 [facility] Comment on above: Performed By: #### L 500.2500, L100.0100 ####[facility] [address] [place], [address] GFR/1.73 sq M.predicted among non-blacks MDRD (S/P/Bld) [Vol rate/Area] 88 mL/min/{1.73_m2} Normal >60 [facility] Comment on above: Result Comment: mL/m in/1.73m2 CKD-EPI Creatinine Equation (2020) Performed By: #### L 500.2500, L100.0100 ####[facility] [address] [place], [address] Glucose [Mass/Vol] 94 mg/dL Normal 70-99 [facility] Comment on above: Performed By: #### L 500.2500, L100.0100 ####[facility] [address] [place], [address] Potassium [Moles/Vol] 4.2 mmol/L Normal 3.3-5.1 [facility] Comment on above: Performed By: #### L 500.2500, L100.0100 ####[facility] [address] [place], [address] Sodium [Moles/Vol] 134 mmol/L Normal 133-145 [facility] Comment on above: Performed By: #### L 500.2500, L100.0100 ####[facility] [address] [place], [address] Urea nitrogen [Mass/Vol] 17 mg/dL Normal 4-19 [facility] Comment on above: Performed By: #### L 500.2500, L100.0100 ####[facility] [address] [place], [address] CBC W/Diff, Automatedon 03-2 Absolute Lymph 1.24 X10 3/uL Normal 0.83-4.51 [facility] Comment on above: Performed By: #### L 500.2500, L100.0100 ####[facility] [address] [place], [address] Absolute Neut 4.1 X10 3/uL Normal 2.0-7.7 [facility] Comment on above: Performed By: #### L 500.2500, L100.0100 ####[facility] [address] [place], [address] Basophils/100 WBC (Bld) 0.5 % Normal 0-1 [facility] Comment on above: Performed By: #### L 500.2500, L100.0100 ####[facility] [address] [place], [address] Eosinophils/100 WBC (Bld) 4.7 % Normal 0-5 [facility] Comment on above: Performed By: #### L 500.2500, L100.0100 ####[facility] [address] [place], [address] Erythrocyte distribution width (RBC) [Ratio] 13.2 % Normal 11.6-14.6 [facility] Comment on above: Performed By: #### L 500.2500, L100.0100 ####[facility] [address] [place], [address] Hematocrit (Bld) [Volume fraction] 28.5 % Low 37-47 [facility] Comment on above: Performed By: #### L 500.2500, L100.0100 ####[facility] [address] [place], [address] Hemoglobin (Bld) [Mass/Vol] 9.5 g/dL Low 12.0-15.0 [facility] Comment on above: Performed By: #### L 500.2500, L100.0100 ####[facility] [address] [place], [address] IG% 0.700 Normal 0.0-0.9 [facility] Comment on above: Result Comment: IG% - Immature Granulocytes (promyelocytes, myelocytes andmetamyelocytes) > 1% indicates that a LEFT SHIFT is Present. Performed By: #### L 500.2500, L100.0100 ####[facility] [address] [place], [address] Lymphocytes/100 WBC (Bld) 20.3 % Normal 19-41 [facility] Comment on above: Performed By: #### L 500.2500, L100.0100 ####[facility] [address] [place], [address] MCH (RBC) [Entitic mass] 29.8 pg Normal 27.0-32.0 [facility] Comment on above: Performed By: #### L 500.2500, L100.0100 ####[facility] [address] [place], [address] MCHC (RBC) [Mass/Vol] 33.3 g/dL Normal 32-36 [facility] Comment on above: Performed By: #### L 500.2500, L100.0100 ####[facility] [address] [place], [address] MCV (RBC) [Entitic vol] 89.3 fL Normal 81-99 [facility] Comment on above: Performed By: #### L 500.2500, L100.0100 ####[facility] [address] [place], [address] Monocytes/100 WBC (Bld) 7.0 % Normal 0-10 [facility] Comment on above: Performed By: #### L 500.2500, L100.0100 ####[facility] [address] [place], [address] Neutrophils/100 WBC (Bld) 66.8 % Normal 47-70 [facility] Comment on above: Performed By: #### L 500.2500, L100.0100 ####[facility] [address], [address] Nucleated RBC (Bld) [#/Vol] 0 10*3/uL Normal 0-5 [facility] Comment on above: Performed By: #### L 500.2500, L100.0100 ####[facility] [address] [place], [address] Platelet mean volume (Bld) [Entitic vol] 9.4 fL Normal 6.2-12.0 [facility] Comment on above: Performed By: #### L 500.2500, L100.0100 ####[facility] [address] [place], [address] Platelets (Bld) [#/Vol] 287 10*3/uL Normal 150-450 [facility] Comment on above: Performed By: #### L 500.2500, L100.0100 ####[facility] [address] [place], [address] RBC (Bld) [#/Vol] 3.19 10*6/uL Low 4.2-5.4 [facility] Comment on above: Performed By: #### L 500.2500, L100.0100 ####[facility] [address] [place], [address] RDW SD 43.5 fl Normal 35.1-43.9 [facility] Comment on above: Performed By: #### L 500.2500, L100.0100 ####[facility] [address] [place], [address] WBC (Bld) [#/Vol] 6.1 10*3/uL Normal 4.4-11.0 [facility] Comment on above: Performed By: #### L 500.2500, L100.0100 ####[facility] [address] [place], [address] Stool Occult Blood iFOBon STOB Negative Normal [facility] Comment on above: Performed By: #### M 100.7900 ####[facility] [address] [place], [address] Stool gastrointestinal hemog lobin detection by immunologic methodOrdered By: Juan Diego Marks on 12-19-2024 Lower GI hemoglobin IA Ql (Stl) [facility] Abdomen Single Viewon 2024 Abdomen Single View Normal [facility] Basic Metabolic Profile (BMP )on 12-17-2024 BUN/CRE 51.0 RATIO High 10-20 [facility] Comment on above: Performed By: #### L 500.2500 ####[facility] [address] [place], [address] Calcium [Mass/Vol] 8.8 mg/dL Normal 7.6-11.0 [facility] Comment on above: Performed By: #### L 500.2500 ####[facility] [address] [place], [address] Chloride [Moles/Vol] 103 mmol/L Normal 98-108 [facility] Comment on above: Performed By: #### L 500.2500 ####[facility] [address] [place], [address] CO2 [Moles/Vol] 18.0 mmol/L Low 21.0-32.0 [facility] Comment on above: Performed By: #### L 500.2500 ####[facility] [address] [place], [address] Creatinine [Mass/Vol] 0.67 mg/dL Low 0.70-1.20 [facility] Comment on above: Performed By: #### L 500.2500 ####[facility] [address] [place], [address] ECRCL 60.58 ml/min Normal 50-250 [facility] Comment on above: Performed By: #### L 500.2500 ####[facility] [address], [address] GAP 11 Normal 5-15 [facility] Comment on above: Performed By: #### L 500.2500 ####[facility] [address] [place], [address] GFR/1.73 sq M.predicted among non-blacks MDRD (S/P/Bld) [Vol rate/Area] 88 mL/min/{1.73_m2} Normal >60 [facility] Comment on above: Result Comment: mL/m in/1.73m2 CKD-EPI Creatinine Equation (2020) Performed By: #### L 500.2500 ####[facility] [address] [place], [address] Glucose [Mass/Vol] 210 mg/dL High 70-99 [facility] Comment on above: Performed By: #### L 500.2500 ####[facility] [address] [place], [address] Potassium [Moles/Vol] 4.5 mmol/L Normal 3.3-5.1 [facility] Comment on above: Result Comment: Hemo lysis present, Results??could be affected.?? Performed By: #### L 500.2500 ####[facility] [address] [place], [address] Sodium [Moles/Vol] 132 mmol/L Low 133-145 [facility] Comment on above: Performed By: #### L 500.2500 ####[facility] [address] [place], [address] Urea nitrogen [Mass/Vol] 34 mg/dL High - [facility] Comment on above: Performed By: #### L 500.2500 ####[facility] [address] [place], [address] BUN Normal - [facility] Comment on above: Result Comment: Canc elled via OM: Order cancelled - Patient discharged Performed By: #### L 500.2500, L100.0100 ####[facility] [address] [place], [address] BUN/CRE Normal - [facility] Comment on above: Result Comment: Canc elled via OM: Order cancelled - Patient discharged Performed By: #### L 500.2500, L100.0100 ####[facility] [address] [place], [address] Calcium Normal 7.6-11.0 [facility] Comment on above: Result Comment: Canc elled via OM: Order cancelled - Patient discharged Performed By: #### L 500.2500, L100.0100 ####[facility] [address] [place], [address] CL Normal 98-108 [facility] Comment on above: Result Comment: Canc elled via OM: Order cancelled - Patient discharged Performed By: #### L 500.2500, L100.0100 ####[facility] [address] [place], [address] CO2 Normal 21.0-32.0 [facility] Comment on above: Result Comment: Canc elled via OM: Order cancelled - Patient discharged Performed By: #### L 500.2500, L100.0100 ####[facility] [address] [place], [address] CREAT,SERUM Normal 0.70-1.20 [facility] Comment on above: Result Comment: Canc elled via OM: Order cancelled - Patient discharged Performed By: #### L 500.2500, L100.0100 ####[facility] [address] [place], [address] eGFR Normal >60 [facility] Comment on above: Result Comment: Canc elled via OM: Order cancelled - Patient discharged Performed By: #### L 500.2500, L100.0100 ####[facility] [address] [place], [address] GAP Normal 5-15 [facility] Comment on above: Result Comment: Canc elled via OM: Order cancelled - Patient discharged Performed By: #### L 500.2500, L100.0100 ####[facility] [address] [place], [address] GLU Normal 70-99 [facility] Comment on above: Result Comment: Canc elled via OM: Order cancelled - Patient discharged Performed By: #### L 500.2500, L100.0100 ####[facility] [address] [place], [address] Potassium Normal 3.3-5.1 [facility] Comment on above: Result Comment: Canc elled via OM: Order cancelled - Patient discharged Performed By: #### L 500.2500, L100.0100 ####[facility] [address] [place], [address] Basic Metabolic Profile (BMP) Normal 133-145 [facility] Comment on above: Result Comment: Canc elled via OM: Order cancelled - Patient discharged Performed By: #### L 500.2500, L100.0100 ####[facility] [address] [place], [address] CBC W/Diff, Automatedon 03-2 Absolute Neut Normal 2.0-7.7 [facility] Comment on above: Result Comment: Canc elled via OM: Order cancelled - Patient discharged Performed By: #### L 500.2500, L100.0100 ####[facility] [address] [place], [address] HCT Normal 37-47 [facility] Comment on above: Result Comment: Canc elled via OM: Order cancelled - Patient discharged Performed By: #### L 500.2500, L100.0100 ####[facility] [address] [place], [address] HGB Normal 12.0-15.0 [facility] Comment on above: Result Comment: Canc elled via OM: Order cancelled - Patient discharged Performed By: #### L 500.2500, L100.0100 ####[facility] [address] [place], [address] MCH Normal 27.0-32.0 [facility] Comment on above: Result Comment: Canc elled via OM: Order cancelled - Patient discharged Performed By: #### L 500.2500, L100.0100 ####[facility] [address] [place], [address] MCHC Normal 32-36 [facility] Comment on above: Result Comment: Canc elled via OM: Order cancelled - Patient discharged Performed By: #### L 500.2500, L100.0100 ####[facility] [address] [place], [address] MCV Normal 81-99 [facility] Comment on above: Result Comment: Canc elled via OM: Order cancelled - Patient discharged Performed By: #### L 500.2500, L100.0100 ####[facility] [address] [place], [address] NEUT% Normal 47-70 [facility] Comment on above: Result Comment: Canc elled via OM: Order cancelled - Patient discharged Performed By: #### L 500.2500, L100.0100 ####[facility] [address] [place], [address] PLT Normal 150-450 [facility] Comment on above: Result Comment: Canc elled via OM: Order cancelled - Patient discharged Performed By: #### L 500.2500, L100.0100 ####[facility] [address] [place], [address] RBC Normal 4.2-5.4 [facility] Comment on above: Result Comment: Canc elled via OM: Order cancelled - Patient discharged Performed By: #### L 500.2500, L100.0100 ####[facility] [address] [place], [address] RDW CV Normal 11.6-14.6 [facility] Comment on above: Result Comment: Canc elled via OM: Order cancelled - Patient discharged Performed By: #### L 500.2500, L100.0100 ####[facility] [address] [place], [address] RDW SD Normal 35.1-43.9 [facility] Comment on above: Result Comment: Canc elled via OM: Order cancelled - Patient discharged Performed By: #### L 500.2500, L100.0100 ####[facility] [address] [place], [address] WBC Normal 4.4-11.0 [facility] Comment on above: Result Comment: Canc elled via OM: Order cancelled - Patient discharged Performed By: #### L 500.2500, L100.0100 ####[facility] [address] [place], [address] Urinalysis, Completeon 12-17 RBC 0 SEEN Normal 0-5 [facility] Comment on above: Order Comment: TREVOR TER SPECIMEN Performed By: #### L 400.0001 ####[facility] [address] [place], [address] WBC 0-5 SEEN Normal 0-5 [facility] Comment on above: Order Comment: TREVOR TER SPECIMEN Performed By: #### L 400.0001 ####[facility] [address] [place], [address] BACTERIA 1+ /hpf Normal None Seen [facility] Comment on above: Order Comment: TREVOR TER SPECIMEN Performed By: #### L 400.0001 ####[facility] [address] [place], [address] EPI,SQUAMOUS 0 SEEN Normal 5-10 [facility] Comment on above: Order Comment: TREVOR TER SPECIMEN Performed By: #### L 400.0001 ####[facility] [address] [place], [address] Mucus Ql (Urine sed) 0 SEEN Normal [facility] Comment on above: Order Comment: TREVOR TER SPECIMEN Performed By: #### L 400.0001 ####[facility] [address] [place], [address] Urine cultureOrdered By: Juan Diego Marks on 12-17-2024 Bacteria identified Cx Nom (U) Granulicatella elegans Abnormal [facility] Basic Metabolic Profile (BMP )on 12-16-2024 BUN Normal 4-19 [facility] Comment on above: Result Comment: Canc elled via OM: Order cancelled - Patient discharged Performed By: #### L 500.2500, L100.0100 ####[facility] [address] [place], [address] BUN/CRE Normal 10-20 [facility] Comment on above: Result Comment: Canc elled via OM: Order cancelled - Patient discharged Performed By: #### L 500.2500, L100.0100 ####[facility] [address] [place], [address] Calcium Normal 7.6-11.0 [facility] Comment on above: Result Comment: Canc elled via OM: Order cancelled - Patient discharged Performed By: #### L 500.2500, L100.0100 ####[facility] [address] [place], [address] CL Normal 98-108 [facility] Comment on above: Result Comment: Canc elled via OM: Order cancelled - Patient discharged Performed By: #### L 500.2500, L100.0100 ####[facility] [address], [address] CO2 Normal 21.0-32.0 [facility] Comment on above: Result Comment: Canc elled via OM: Order cancelled - Patient discharged Performed By: #### L 500.2500, L100.0100 ####[facility] [address] [place], [address] CREAT,SERUM Normal 0.70-1.20 [facility] Comment on above: Result Comment: Canc elled via OM: Order cancelled - Patient discharged Performed By: #### L 500.2500, L100.0100 ####[facility] [address] [place], [address] eGFR Normal >60 [facility] Comment on above: Result Comment: Canc elled via OM: Order cancelled - Patient discharged Performed By: #### L 500.2500, L100.0100 ####[facility] [address], [address] GAP Normal 5-15 [facility] Comment on above: Result Comment: Canc elled via OM: Order cancelled - Patient discharged Performed By: #### L 500.2500, L100.0100 ####[facility] [address] [place], [address] GLU Normal 70-99 [facility] Comment on above: Result Comment: Canc elled via OM: Order cancelled - Patient discharged Performed By: #### L 500.2500, L100.0100 ####[facility] [address] [place], [address] Potassium Normal 3.3-5.1 [facility] Comment on above: Result Comment: Canc elled via OM: Order cancelled - Patient discharged Performed By: #### L 500.2500, L100.0100 ####[facility] [address] [place], [address] Basic Metabolic Profile (BMP) Normal 133-145 [facility] Comment on above: Result Comment: Canc elled via OM: Order cancelled - Patient discharged Performed By: #### L 500.2500, L100.0100 ####[facility] [address] [place], [address] CBC W/Diff, Automatedon 03-2 Absolute Neut Normal 2.0-7.7 [facility] Comment on above: Result Comment: Canc elled via OM: Order cancelled - Patient discharged Performed By: #### L 500.2500, L100.0100 ####[facility] [address] [place], [address] HCT Normal 37-47 [facility] Comment on above: Result Comment: Canc elled via OM: Order cancelled - Patient discharged Performed By: #### L 500.2500, L100.0100 ####[facility] [address] [place], [address] HGB Normal 12.0-15.0 [facility] Comment on above: Result Comment: Canc elled via OM: Order cancelled - Patient discharged Performed By: #### L 500.2500, L100.0100 ####[facility] [address] [place], [address] MCH Normal 27.0-32.0 [facility] Comment on above: Result Comment: Canc elled via OM: Order cancelled - Patient discharged Performed By: #### L 500.2500, L100.0100 ####[facility] [address] [place], [address] MCHC Normal 32-36 [facility] Comment on above: Result Comment: Canc elled via OM: Order cancelled - Patient discharged Performed By: #### L 500.2500, L100.0100 ####[facility] [address] [place], [address] MCV Normal 81-99 [facility] Comment on above: Result Comment: Canc elled via OM: Order cancelled - Patient discharged Performed By: #### L 500.2500, L100.0100 ####[facility] [address] [place], [address] NEUT% Normal 47-70 [facility] Comment on above: Result Comment: Canc elled via OM: Order cancelled - Patient discharged Performed By: #### L 500.2500, L100.0100 ####[facility] [address] [place], [address] PLT Normal 150-450 [facility] Comment on above: Result Comment: Canc elled via OM: Order cancelled - Patient discharged Performed By: #### L 500.2500, L100.0100 ####[facility] [address] [place], [address] RBC Normal 4.2-5.4 [facility] Comment on above: Result Comment: Canc elled via OM: Order cancelled - Patient discharged Performed By: #### L 500.2500, L100.0100 ####[facility] [address] [place], [address] RDW CV Normal 11.6-14.6 [facility] Comment on above: Result Comment: Canc elled via OM: Order cancelled - Patient discharged Performed By: #### L 500.2500, L100.0100 ####[facility] [address] [place], [address] RDW SD Normal 35.1-43.9 [facility] Comment on above: Result Comment: Canc elled via OM: Order cancelled - Patient discharged Performed By: #### L 500.2500, L100.0100 ####[facility] [address] [place], [address] WBC Normal 4.4-11.0 [facility] Comment on above: Result Comment: Canc elled via OM: Order cancelled - Patient discharged Performed By: #### L 500.2500, L100.0100 ####[facility] [address] [place], [address] Basic Metabolic Profile (BMP )on 12-15-2024 BUN Normal 4-19 [facility] Comment on above: Result Comment: Canc elled via OM: Order cancelled - Patient discharged Performed By: #### L 100.0100, L500.2500 ####[facility] [address] [place], [address] BUN/CRE Normal 10-20 [facility] Comment on above: Result Comment: Canc elled via OM: Order cancelled - Patient discharged Performed By: #### L 100.0100, L500.2500 ####[facility] [address] [place], [address] Calcium Normal 7.6-11.0 [facility] Comment on above: Result Comment: Canc elled via OM: Order cancelled - Patient discharged Performed By: #### L 100.0100, L500.2500 ####[facility] [address] [place], [address] CL Normal 98-108 [facility] Comment on above: Result Comment: Canc elled via OM: Order cancelled - Patient discharged Performed By: #### L 100.0100, L500.2500 ####[facility] [address] [place], [address] CO2 Normal 21.0-32.0 [facility] Comment on above: Result Comment: Canc elled via OM: Order cancelled - Patient discharged Performed By: #### L 100.0100, L500.2500 ####[facility] [address] [place], [address] CREAT,SERUM Normal 0.70-1.20 [facility] Comment on above: Result Comment: Canc elled via OM: Order cancelled - Patient discharged Performed By: #### L 100.0100, L500.2500 ####[facility] [address] [place], [address] eGFR Normal >60 [facility] Comment on above: Result Comment: Canc elled via OM: Order cancelled - Patient discharged Performed By: #### L 100.0100, L500.2500 ####[facility] [address] [place], [address] GAP Normal 5-15 [facility] Comment on above: Result Comment: Canc elled via OM: Order cancelled - Patient discharged Performed By: #### L 100.0100, L500.2500 ####[facility] [address] [place], [address] GLU Normal 70-99 [facility] Comment on above: Result Comment: Canc elled via OM: Order cancelled - Patient discharged Performed By: #### L 100.0100, L500.2500 ####[facility] [address] [place], [address] Potassium Normal 3.3-5.1 [facility] Comment on above: Result Comment: Canc elled via OM: Order cancelled - Patient discharged Performed By: #### L 100.0100, L500.2500 ####[facility] [address] [place], [address] Basic Metabolic Profile (BMP) Normal 133-145 [facility] Comment on above: Result Comment: Canc elled via OM: Order cancelled - Patient discharged Performed By: #### L 100.0100, L500.2500 ####[facility] [address] [place], [address] CBC W/Diff, Automatedon 03-2 Absolute Neut Normal 2.0-7.7 [facility] Comment on above: Result Comment: Canc elled via OM: Order cancelled - Patient discharged Performed By: #### L 100.0100, L500.2500 ####[facility] [address] [place], [address] HCT Normal 37-47 [facility] Comment on above: Result Comment: Canc elled via OM: Order cancelled - Patient discharged Performed By: #### L 100.0100, L500.2500 ####[facility] [address] [place], [address] HGB Normal 12.0-15.0 [facility] Comment on above: Result Comment: Canc elled via OM: Order cancelled - Patient discharged Performed By: #### L 100.0100, L500.2500 ####[facility] [address] [place], [address] MCH Normal 27.0-32.0 [facility] Comment on above: Result Comment: Canc elled via OM: Order cancelled - Patient discharged Performed By: #### L 100.0100, L500.2500 ####[facility] [address] [place], [address] MCHC Normal 32-36 [facility] Comment on above: Result Comment: Canc elled via OM: Order cancelled - Patient discharged Performed By: #### L 100.0100, L500.2500 ####[facility] [address] [place], [address] MCV Normal 81-99 [facility] Comment on above: Result Comment: Canc elled via OM: Order cancelled - Patient discharged Performed By: #### L 100.0100, L500.2500 ####[facility] [address] [place], [address] NEUT% Normal 47-70 [facility] Comment on above: Result Comment: Canc elled via OM: Order cancelled - Patient discharged Performed By: #### L 100.0100, L500.2500 ####[facility] [address] [place], [address] PLT Normal 150-450 [facility] Comment on above: Result Comment: Canc elled via OM: Order cancelled - Patient discharged Performed By: #### L 100.0100, L500.2500 ####[facility] [address] [place], [address] RBC Normal 4.2-5.4 [facility] Comment on above: Result Comment: Canc elled via OM: Order cancelled - Patient discharged Performed By: #### L 100.0100, L500.2500 ####[facility] [address] [place], [address] RDW CV Normal 11.6-14.6 [facility] Comment on above: Result Comment: Canc elled via OM: Order cancelled - Patient discharged Performed By: #### L 100.0100, L500.2500 ####[facility] [address] [place], [address] RDW SD Normal 35.1-43.9 [facility] Comment on above: Result Comment: Canc elled via OM: Order cancelled - Patient discharged Performed By: #### L 100.0100, L500.2500 ####[facility] [address] [place], [address] WBC Normal 4.4-11.0 [facility] Comment on above: Result Comment: Canc elled via OM: Order cancelled - Patient discharged Performed By: #### L 100.0100, L500.2500 ####[facility] [address], [address] Basic Metabolic Profile (BMP )on 12-14-2024 BUN Normal 4-19 [facility] Comment on above: Result Comment: Canc elled via OM: Order cancelled - Patient discharged Performed By: #### L 500.2500, L100.0100 ####[facility] [address] [place], [address] BUN/CRE Normal 10-20 [facility] Comment on above: Result Comment: Canc elled via OM: Order cancelled - Patient discharged Performed By: #### L 500.2500, L100.0100 ####[facility] [address] [place], [address] Calcium Normal 7.6-11.0 [facility] Comment on above: Result Comment: Canc elled via OM: Order cancelled - Patient discharged Performed By: #### L 500.2500, L100.0100 ####[facility] [address] [place], [address] CL Normal 98-108 [facility] Comment on above: Result Comment: Canc elled via OM: Order cancelled - Patient discharged Performed By: #### L 500.2500, L100.0100 ####[facility] [address] [place], [address] CO2 Normal 21.0-32.0 [facility] Comment on above: Result Comment: Canc elled via OM: Order cancelled - Patient discharged Performed By: #### L 500.2500, L100.0100 ####[facility] [address] [place], [address] CREAT,SERUM Normal 0.70-1.20 [facility] Comment on above: Result Comment: Canc elled via OM: Order cancelled - Patient discharged Performed By: #### L 500.2500, L100.0100 ####[facility] [address] [place], [address] eGFR Normal >60 [facility] Comment on above: Result Comment: Canc elled via OM: Order cancelled - Patient discharged Performed By: #### L 500.2500, L100.0100 ####[facility] [address] [place], [address] GAP Normal 5-15 [facility] Comment on above: Result Comment: Canc elled via OM: Order cancelled - Patient discharged Performed By: #### L 500.2500, L100.0100 ####[facility] [address] [place], [address] GLU Normal 70-99 [facility] Comment on above: Result Comment: Canc elled via OM: Order cancelled - Patient discharged Performed By: #### L 500.2500, L100.0100 ####[facility] [address] [place], [address] Potassium Normal 3.3-5.1 [facility] Comment on above: Result Comment: Canc elled via OM: Order cancelled - Patient discharged Performed By: #### L 500.2500, L100.0100 ####[facility] [address] [place], [address] Basic Metabolic Profile (BMP) Normal 133-145 [facility] Comment on above: Result Comment: Canc elled via OM: Order cancelled - Patient discharged Performed By: #### L 500.2500, L100.0100 ####[facility] [address] [place], [address] CBC W/Diff, Automatedon - Absolute Neut Normal 2.0-7.7 [facility] Comment on above: Result Comment: Canc elled via OM: Order cancelled - Patient discharged Performed By: #### L 500.2500, L100.0100 ####[facility] [address] [place], [address] HCT Normal 37-47 [facility] Comment on above: Result Comment: Canc elled via OM: Order cancelled - Patient discharged Performed By: #### L 500.2500, L100.0100 ####[facility] [address] [place], [address] HGB Normal 12.0-15.0 [facility] Comment on above: Result Comment: Canc elled via OM: Order cancelled - Patient discharged Performed By: #### L 500.2500, L100.0100 ####[facility] [address] [place], [address] MCH Normal 27.0-32.0 [facility] Comment on above: Result Comment: Canc elled via OM: Order cancelled - Patient discharged Performed By: #### L 500.2500, L100.0100 ####[facility] [address] [place], [address] MCHC Normal 32-36 [facility] Comment on above: Result Comment: Canc elled via OM: Order cancelled - Patient discharged Performed By: #### L 500.2500, L100.0100 ####[facility] [address] [place], [address] MCV Normal 81-99 [facility] Comment on above: Result Comment: Canc elled via OM: Order cancelled - Patient discharged Performed By: #### L 500.2500, L100.0100 ####[facility] [address] [place], [address] NEUT% Normal 47-70 [facility] Comment on above: Result Comment: Canc elled via OM: Order cancelled - Patient discharged Performed By: #### L 500.2500, L100.0100 ####[facility] [address], [address] PLT Normal 150-450 [facility] Comment on above: Result Comment: Canc elled via OM: Order cancelled - Patient discharged Performed By: #### L 500.2500, L100.0100 ####[facility] [address], [address] RBC Normal 4.2-5.4 [facility] Comment on above: Result Comment: Canc elled via OM: Order cancelled - Patient discharged Performed By: #### L 500.2500, L100.0100 ####[facility] [address], [address] RDW CV Normal 11.6-14.6 [facility] Comment on above: Result Comment: Canc elled via OM: Order cancelled - Patient discharged Performed By: #### L 500.2500, L100.0100 ####[facility] [address], [address] RDW SD Normal 35.1-43.9 [facility] Comment on above: Result Comment: Canc elled via OM: Order cancelled - Patient discharged Performed By: #### L 500.2500, L100.0100 ####[facility] [address] [place], [address] WBC Normal 4.4-11.0 [facility] Comment on above: Result Comment: Canc elled via OM: Order cancelled - Patient discharged Performed By: #### L 500.2500, L100.0100 ####[facility] [address] [place], [address] Basic Metabolic Profile (BMP )on 12-13-2024 BUN Normal 4-19 [facility] Comment on above: Result Comment: Canc elled via OM: Order cancelled - Patient discharged Performed By: #### L 500.2500, L100.0100 ####[facility] [address], [address] BUN/CRE Normal 10-20 [facility] Comment on above: Result Comment: Canc elled via OM: Order cancelled - Patient discharged Performed By: #### L 500.2500, L100.0100 ####[facility] [address] [place], [address] Calcium Normal 7.6-11.0 [facility] Comment on above: Result Comment: Canc elled via OM: Order cancelled - Patient discharged Performed By: #### L 500.2500, L100.0100 ####[facility] [address] [place], [address] CL Normal 98-108 [facility] Comment on above: Result Comment: Canc elled via OM: Order cancelled - Patient discharged Performed By: #### L 500.2500, L100.0100 ####[facility] [address], [address] CO2 Normal 21.0-32.0 [facility] Comment on above: Result Comment: Canc elled via OM: Order cancelled - Patient discharged Performed By: #### L 500.2500, L100.0100 ####[facility] [address] [place], [address] CREAT,SERUM Normal 0.70-1.20 [facility] Comment on above: Result Comment: Canc elled via OM: Order cancelled - Patient discharged Performed By: #### L 500.2500, L100.0100 ####[facility] [address] [place], [address] eGFR Normal >60 [facility] Comment on above: Result Comment: Canc elled via OM: Order cancelled - Patient discharged Performed By: #### L 500.2500, L100.0100 ####[facility] [address] [place], [address] GAP Normal 5-15 [facility] Comment on above: Result Comment: Canc elled via OM: Order cancelled - Patient discharged Performed By: #### L 500.2500, L100.0100 ####[facility] [address] [place], [address] GLU Normal 70-99 [facility] Comment on above: Result Comment: Canc elled via OM: Order cancelled - Patient discharged Performed By: #### L 500.2500, L100.0100 ####[facility] [address] [place], [address] Potassium Normal 3.3-5.1 [facility] Comment on above: Result Comment: Canc elled via OM: Order cancelled - Patient discharged Performed By: #### L 500.2500, L100.0100 ####[facility] [address] [place], [address] Basic Metabolic Profile (BMP) Normal 133-145 [facility] Comment on above: Result Comment: Canc elled via OM: Order cancelled - Patient discharged Performed By: #### L 500.2500, L100.0100 ####[facility] [address] [place], [address] CBC W/Diff, Automatedon 03-2 Absolute Neut Normal 2.0-7.7 [facility] Comment on above: Result Comment: Canc elled via OM: Order cancelled - Patient discharged Performed By: #### L 500.2500, L100.0100 ####[facility] [address] [place], [address] HCT Normal 37-47 [facility] Comment on above: Result Comment: Canc elled via OM: Order cancelled - Patient discharged Performed By: #### L 500.2500, L100.0100 ####[facility] [address] [place], [address] HGB Normal 12.0-15.0 [facility] Comment on above: Result Comment: Canc elled via OM: Order cancelled - Patient discharged Performed By: #### L 500.2500, L100.0100 ####[facility] [address] [place], [address] MCH Normal 27.0-32.0 [facility] Comment on above: Result Comment: Canc elled via OM: Order cancelled - Patient discharged Performed By: #### L 500.2500, L100.0100 ####[facility] [address] [place], [address] MCHC Normal 32-36 [facility] Comment on above: Result Comment: Canc elled via OM: Order cancelled - Patient discharged Performed By: #### L 500.2500, L100.0100 ####[facility] [address] [place], [address] MCV Normal 81-99 [facility] Comment on above: Result Comment: Canc elled via OM: Order cancelled - Patient discharged Performed By: #### L 500.2500, L100.0100 ####[facility] [address] [place], [address] NEUT% Normal 47-70 [facility] Comment on above: Result Comment: Canc elled via OM: Order cancelled - Patient discharged Performed By: #### L 500.2500, L100.0100 ####[facility] [address] [place], [address] PLT Normal 150-450 [facility] Comment on above: Result Comment: Canc elled via OM: Order cancelled - Patient discharged Performed By: #### L 500.2500, L100.0100 ####[facility] [address] [place], [address] RBC Normal 4.2-5.4 [facility] Comment on above: Result Comment: Canc elled via OM: Order cancelled - Patient discharged Performed By: #### L 500.2500, L100.0100 ####[facility] [address] [place], [address] RDW CV Normal 11.6-14.6 [facility] Comment on above: Result Comment: Canc elled via OM: Order cancelled - Patient discharged Performed By: #### L 500.2500, L100.0100 ####[facility] [address] [place], [address] RDW SD Normal 35.1-43.9 [facility] Comment on above: Result Comment: Canc elled via OM: Order cancelled - Patient discharged Performed By: #### L 500.2500, L100.0100 ####[facility] [address] [place], [address] WBC Normal 4.4-11.0 [facility] Comment on above: Result Comment: Canc elled via OM: Order cancelled - Patient discharged Performed By: #### L 500.2500, L100.0100 ####[facility] [address] [place], [address] Calculated very low density lipoprotein (VLDL) cholesterol measurementOrdered By: uJan Diego Marks on 12-13-2024 Calculated very low density lipoprotein (VLDL) cholesterol measurement 17 mg/dL 5-40 [facility] L503.0106on 12-13-2024 Cobalamin (Vitamin B12) [Mass/Vol] 645 pg/mL Normal 180-914 [facility] Comment on above: Performed By: #### L 503.0106, L500.4100 ####[facility] [address] [place], [address] LDL calc ser/plasOrdered By: Juan Diego Marks on 12-13-2024 Cholesterol in LDL [Mass/Vol] 47 mg/dL [facility] Comment on above: Dcxqinniga=707-945 m g/dL & Higher Voyv=736 mg/dL or greater Lipid Profileon 12-13-2024 CHOL:HDL 2.08 Normal [facility] Comment on above: Performed By: #### L 503.0106, L500.4100 ####[facility] [address] [place], [address] Cholesterol [Mass/Vol] 124 mg/dL Normal <=200 [facility] Comment on above: Result Comment: Chol esterol level, Desirable <200 mg/dLBorderline high cholesterol 200-239 mg/dLHigh cholesterol >=240 mg/dLRecommendations of the NCEP Adult Treatment Panel for thefollowing risk-cutoff thresholds for the [place] [facility]. Performed By: #### L 503.0106, L500.4100 ####[facility] [address] [place], [address] Cholesterol in HDL [Mass/Vol] 60 mg/dL Normal [facility] Comment on above: Result Comment: Rosalind onal Cholesterol Education Program (NCEP) guidelines:<40 mg/dL: Low HDL-cholesterol (major risk factor for CHD)>= 60 mg/dL: High HDL-cholesterol (negative risk factor forCHD)HDL-cholesterol is affected by a number of factors, e.g.smoking, exercise, hormones, sex and age. Performed By: #### L 503.0106, L500.4100 ####[facility] [address] [place], [address] Cholesterol in LDL [Mass/Vol] 47 mg/dL Normal [facility] Comment on above: Result Comment: Bord jeibph=710-074 mg/dL Higher Zhlo=703 mg/dL or greater Performed By: #### L 503.0106, L500.4100 ####[facility] [address] [place], [address] Cholesterol in VLDL [Mass/Vol] 17 mg/dL Normal 5-40 [facility] Comment on above: Performed By: #### L 503.0106, L500.4100 ####[facility] [address] [place], [address] Triglyceride [Mass/Vol] 85 mg/dL Normal [facility] Comment on above: Result Comment: The drugs N-Acetylcysteine and Metamizole may falselydepress this assay.Normal range: <150 mg/dLBorderline High: 150-199 mg/dLHigh: 200-499 mg/dLVery High: >500 mg/dL Performed By: #### L 503.0106, L500.4100 ####[facility] [address] [place], [address] Screening total cholesterol/ high density lipoprotein (HDL) cholesterol ratioOrdered By: Juan Diego Marks on 12-13-2024 Cholesterol.total/Choles terol in HDL [Mass ratio] 2.08 {ratio} [facility] Serum or plasma cholesterol in HDL measurement (mass/volume)Ordered By: Juan Diego Marks on 12-13-2024 Cholesterol in HDL [Mass/Vol] 60 mg/dL >40 [facility] Comment on above: National Cholesterol Education Program (NCEP) guidelines:<40 mg/dL: Low HDL-cholesterol (major risk factor for CHD)>= 60 mg/dL: High HDL-cholesterol (negative risk factor for CHD)HDL-cholesterol is affected by a number of factors, e.g. smoking, exercise, hormones, sex and age. Serum or plasma cholesterol measurement (mass/volume)Ordered By: Juan Diego Marks on 12-13-2024 Cholesterol [Mass/Vol] 124 mg/dL <201 [facility] Comment on above: Cholesterol level, D esirable <200 mg/dLBorderline high cholesterol 200-239 mg/dLHigh cholesterol >=240 mg/dLRecommendations of the NCEP Adult Treatment Panel for the following risk-cutoff thresholds for the [place] population. Triglycerides measurementOrd ered By: Juan Diego Marks on 12-13-2024 Triglyceride [Mass/Vol] 85 mg/dL <199 [facility] Comment on above: The drugs N-Acetylcy steine and Metamizole may falsely depress this assay. Normal range: <150 mg/dLBorderline High: 150-199 mg/dLHigh: 200-499 mg/dLVery High: >500 mg/dL Vitamin B12 ser/plasOrdered By: Juan Diego Marks on 12-13-2024 Cobalamin (Vitamin B12) [Mass/Vol] 645 pg/mL 180-914 [facility] Basic Metabolic Profile (BMP )on 12-12-2024 BUN/CRE 29.5 RATIO High 10-20 [facility] Comment on above: Performed By: #### L 500.2500, L100.0100 ####[facility] [address] [place], [address] Calcium [Mass/Vol] 9.2 mg/dL Normal 7.6-11.0 [facility] Comment on above: Performed By: #### L 500.2500, L100.0100 ####[facility] [address] [place], [address] Chloride [Moles/Vol] 97 mmol/L Low 98-108 [facility] Comment on above: Performed By: #### L 500.2500, L100.0100 ####[facility] [address] [place], [address] CO2 [Moles/Vol] 20.4 mmol/L Low 21.0-32.0 [facility] Comment on above: Performed By: #### L 500.2500, L100.0100 ####[facility] [address] [place], [address] Creatinine [Mass/Vol] 1.39 mg/dL High 0.70-1.20 [facility] Comment on above: Performed By: #### L 500.2500, L100.0100 ####[facility] [address] [place], [address] ECRCL 35.39 ml/min Low 50-250 [facility] Comment on above: Performed By: #### L 500.2500, L100.0100 ####[facility] [address] [place], [address] GAP 11 Normal 5-15 [facility] Comment on above: Performed By: #### L 500.2500, L100.0100 ####[facility] [address] [place], [address] GFR/1.73 sq M.predicted among non-blacks MDRD (S/P/Bld) [Vol rate/Area] 38 mL/min/{1.73_m2} Low >60 [facility] Comment on above: Result Comment: mL/m in/1.73m2 CKD-EPI Creatinine Equation (2020) Performed By: #### L 500.2500, L100.0100 ####[facility] [address] [place], [address] Glucose [Mass/Vol] 99 mg/dL Normal 70-99 [facility] Comment on above: Performed By: #### L 500.2500, L100.0100 ####[facility] [address] [place], [address] Potassium [Moles/Vol] 4.9 mmol/L Normal 3.3-5.1 [facility] Comment on above: Performed By: #### L 500.2500, L100.0100 ####[facility] [address] [place], [address] Sodium [Moles/Vol] 128 mmol/L Low 133-145 [facility] Comment on above: Performed By: #### L 500.2500, L100.0100 ####[facility] [address] [place], [address] Urea nitrogen [Mass/Vol] 41 mg/dL High 4-19 [facility] Comment on above: Performed By: #### L 500.2500, L100.0100 ####[facility] [address] [place], [address] BUN Normal -19 [facility] Comment on above: Result Comment: Canc elled via OM: Order cancelled - Patient discharged Performed By: #### L 100.0100, L500.2500 ####[facility] [address] [place], [address] BUN/CRE Normal 10-20 [facility] Comment on above: Result Comment: Canc elled via OM: Order cancelled - Patient discharged Performed By: #### L 100.0100, L500.2500 ####[facility] [address] [place], [address] Calcium Normal 7.6-11.0 [facility] Comment on above: Result Comment: Canc elled via OM: Order cancelled - Patient discharged Performed By: #### L 100.0100, L500.2500 ####[facility] [address] [place], [address] CL Normal 98-108 [facility] Comment on above: Result Comment: Canc elled via OM: Order cancelled - Patient discharged Performed By: #### L 100.0100, L500.2500 ####[facility] [address] [place], [address] CO2 Normal 21.0-32.0 [facility] Comment on above: Result Comment: Canc elled via OM: Order cancelled - Patient discharged Performed By: #### L 100.0100, L500.2500 ####[facility] [address] [place], [address] CREAT,SERUM Normal 0.70-1.20 [facility] Comment on above: Result Comment: Canc elled via OM: Order cancelled - Patient discharged Performed By: #### L 100.0100, L500.2500 ####[facility] [address] [place], [address] eGFR Normal >60 [facility] Comment on above: Result Comment: Canc elled via OM: Order cancelled - Patient discharged Performed By: #### L 100.0100, L500.2500 ####[facility] [address] [place], [address] GAP Normal 5-15 [facility] Comment on above: Result Comment: Canc elled via OM: Order cancelled - Patient discharged Performed By: #### L 100.0100, L500.2500 ####[facility] [address] [place], [address] GLU Normal 70-99 [facility] Comment on above: Result Comment: Canc elled via OM: Order cancelled - Patient discharged Performed By: #### L 100.0100, L500.2500 ####[facility] [address] [place], [address] Potassium Normal 3.3-5.1 [facility] Comment on above: Result Comment: Canc elled via OM: Order cancelled - Patient discharged Performed By: #### L 100.0100, L500.2500 ####[facility] [address] [place], [address] Basic Metabolic Profile (BMP) Normal 133-145 [facility] Comment on above: Result Comment: Canc elled via OM: Order cancelled - Patient discharged Performed By: #### L 100.0100, L500.2500 ####[facility] [address] [place], [address] CBC W/Diff, Automatedon 03-2 Absolute Lymph 0.93 X10 3/uL Normal 0.83-4.51 [facility] Comment on above: Performed By: #### L 500.2500, L100.0100 ####[facility] [address] [place], [address] Absolute Neut 4.4 X10 3/uL Normal 2.0-7.7 [facility] Comment on above: Performed By: #### L 500.2500, L100.0100 ####[facility] [address] [place], [address] Basophils/100 WBC (Bld) 0.3 % Normal 0-1 [facility] Comment on above: Performed By: #### L 500.2500, L100.0100 ####[facility] [address] [place], [address] Eosinophils/100 WBC (Bld) 5.0 % Normal 0-5 [facility] Comment on above: Performed By: #### L 500.2500, L100.0100 ####[facility] [address] [place], [address] Erythrocyte distribution width (RBC) [Ratio] 13.2 % Normal 11.6-14.6 [facility] Comment on above: Performed By: #### L 500.2500, L100.0100 ####[facility] [address] [place], [address] Hematocrit (Bld) [Volume fraction] 32.6 % Low 37-47 [facility] Comment on above: Performed By: #### L 500.2500, L100.0100 ####[facility] [address] [place], [address] Hemoglobin (Bld) [Mass/Vol] 11.0 g/dL Low 12.0-15.0 [facility] Comment on above: Performed By: #### L 500.2500, L100.0100 ####[facility] [address] [place], [address] IG% 0.500 Normal 0.0-0.9 [facility] Comment on above: Result Comment: IG% - Immature Granulocytes (promyelocytes, myelocytes andmetamyelocytes) > 1% indicates that a LEFT SHIFT is Present. Performed By: #### L 500.2500, L100.0100 ####[facility] [address] [place], [address] Lymphocytes/100 WBC (Bld) 14.9 % Low 19-41 [facility] Comment on above: Performed By: #### L 500.2500, L100.0100 ####[facility] [address] [place], [address] MCH (RBC) [Entitic mass] 29.4 pg Normal 27.0-32.0 [facility] Comment on above: Performed By: #### L 500.2500, L100.0100 ####[facility] [address] [place], [address] MCHC (RBC) [Mass/Vol] 33.7 g/dL Normal 32-36 [facility] Comment on above: Performed By: #### L 500.2500, L100.0100 ####[facility] [address] [place], [address] MCV (RBC) [Entitic vol] 87.2 fL Normal 81-99 [facility] Comment on above: Performed By: #### L 500.2500, L100.0100 ####[facility] [address] [place], [address] Monocytes/100 WBC (Bld) 9.3 % Normal 0-10 [facility] Comment on above: Performed By: #### L 500.2500, L100.0100 ####[facility] [address] [place], [address] Neutrophils/100 WBC (Bld) 70.0 % Normal 47-70 [facility] Comment on above: Performed By: #### L 500.2500, L100.0100 ####[facility] [address] [place], [address] Nucleated RBC (Bld) [#/Vol] 0 10*3/uL Normal 0-5 [facility] Comment on above: Performed By: #### L 500.2500, L100.0100 ####[facility] [address] [place], [address] Platelet mean volume (Bld) [Entitic vol] 9.8 fL Normal 6.2-12.0 [facility] Comment on above: Performed By: #### L 500.2500, L100.0100 ####[facility] [address] [place], [address] Platelets (Bld) [#/Vol] 290 10*3/uL Normal 150-450 [facility] Comment on above: Performed By: #### L 500.2500, L100.0100 ####[facility] [address] [place], [address] RBC (Bld) [#/Vol] 3.74 10*6/uL Low 4.2-5.4 [facility] Comment on above: Performed By: #### L 500.2500, L100.0100 ####[facility] [address] [place], [address] RDW SD 41.7 fl Normal 35.1-43.9 [facility] Comment on above: Performed By: #### L 500.2500, L100.0100 ####[facility] [address] [place], [address] WBC (Bld) [#/Vol] 6.3 10*3/uL Normal 4.4-11.0 [facility] Comment on above: Performed By: #### L 500.2500, L100.0100 ####[facility] [address] [place], [address] Absolute Neut Normal 2.0-7.7 [facility] Comment on above: Result Comment: Canc elled via OM: Order cancelled - Patient discharged Performed By: #### L 100.0100, L500.2500 ####[facility] [address] [place], [address] HCT Normal 37-47 [facility] Comment on above: Result Comment: Canc elled via OM: Order cancelled - Patient discharged Performed By: #### L 100.0100, L500.2500 ####[facility] [address] [place], [address] HGB Normal 12.0-15.0 [facility] Comment on above: Result Comment: Canc elled via OM: Order cancelled - Patient discharged Performed By: #### L 100.0100, L500.2500 ####[facility] [address] [place], [address] MCH Normal 27.0-32.0 [facility] Comment on above: Result Comment: Canc elled via OM: Order cancelled - Patient discharged Performed By: #### L 100.0100, L500.2500 ####[facility] [address] [place], [address] MCHC Normal 32-36 [facility] Comment on above: Result Comment: Canc elled via OM: Order cancelled - Patient discharged Performed By: #### L 100.0100, L500.2500 ####[facility] [address] [place], [address] MCV Normal 81-99 [facility] Comment on above: Result Comment: Canc elled via OM: Order cancelled - Patient discharged Performed By: #### L 100.0100, L500.2500 ####[facility] [address] [place], [address] NEUT% Normal 47-70 [facility] Comment on above: Result Comment: Canc elled via OM: Order cancelled - Patient discharged Performed By: #### L 100.0100, L500.2500 ####[facility] [address] [place], [address] PLT Normal 150-450 [facility] Comment on above: Result Comment: Canc elled via OM: Order cancelled - Patient discharged Performed By: #### L 100.0100, L500.2500 ####[facility] [address] [place], [address] RBC Normal 4.2-5.4 [facility] Comment on above: Result Comment: Canc elled via OM: Order cancelled - Patient discharged Performed By: #### L 100.0100, L500.2500 ####[facility] [address] [place], [address] RDW CV Normal 11.6-14.6 [facility] Comment on above: Result Comment: Canc elled via OM: Order cancelled - Patient discharged Performed By: #### L 100.0100, L500.2500 ####[facility] [address] [place], [address] RDW SD Normal 35.1-43.9 [facility] Comment on above: Result Comment: Canc elled via OM: Order cancelled - Patient discharged Performed By: #### L 100.0100, L500.2500 ####[facility] [address] [place], [address] WBC Normal 4.4-11.0 [facility] Comment on above: Result Comment: Canc elled via OM: Order cancelled - Patient discharged Performed By: #### L 100.0100, L500.2500 ####[facility] [address] [place], [address] Absolute neutrophil countOrd ered By: Montse Cabrera on 12-11-2024 Neutrophils (Bld) [#/Vol] 5.7 10*3/uL 2.0-7.7 [facility] Anion gap in Serum or Plasma Ordered By: Montse Cabrera on 12-11-2024 Anion gap [Moles/Vol] 12 mmol/L - [facility] BUN/creatinine ratioOrdered By: Montse Cabrera on 12-11-2024 Urea nitrogen/Creatinine [Mass ratio] 24.2 mg/mg High 07-13 [facility] Basic Metabolic Profile (BMP )on 12-11-2024 BUN/CRE 24.2 RATIO High 07-13 [facility] Comment on above: Performed By: #### L 500.2500, L100.0100 ####[facility] [address] [place], [address] Calcium [Mass/Vol] 9.1 mg/dL Normal 7.6-11.0 [facility] Comment on above: Performed By: #### L 500.2500, L100.0100 ####[facility] [address] [place], [address] Chloride [Moles/Vol] 91 mmol/L Low 98-108 [facility] Comment on above: Performed By: #### L 500.2500, L100.0100 ####[facility] [address] [place], [address] CO2 [Moles/Vol] 18.5 mmol/L Low 21.0-32.0 [facility] Comment on above: Performed By: #### L 500.2500, L100.0100 ####[facility] [address] [place], [address] Creatinine [Mass/Vol] 0.95 mg/dL Normal 0.70-1.20 [facility] Comment on above: Performed By: #### L 500.2500, L100.0100 ####[facility] [address] [place], [address] ECRCL 49.52 ml/min Low 50-250 [facility] Comment on above: Performed By: #### L 500.2500, L100.0100 ####[facility] [address] [place], [address] GAP 12 Normal 5-15 [facility] Comment on above: Performed By: #### L 500.2500, L100.0100 ####[facility] [address] [place], [address] GFR/1.73 sq M.predicted among non-blacks MDRD (S/P/Bld) [Vol rate/Area] 60 mL/min/{1.73_m2} Normal >60 [facility] Comment on above: Result Comment: mL/m in/1.73m2 CKD-EPI Creatinine Equation (2020) Performed By: #### L 500.2500, L100.0100 ####[facility] [address], [address] Glucose [Mass/Vol] 108 mg/dL High 70-99 [facility] Comment on above: Performed By: #### L 500.2500, L100.0100 ####[facility] [address] [place], [address] Potassium [Moles/Vol] 4.7 mmol/L Normal 3.3-5.1 [facility] Comment on above: Performed By: #### L 500.2500, L100.0100 ####[facility] [address] [place], [address] Sodium [Moles/Vol] 122 mmol/L Low 133-145 [facility] Comment on above: Performed By: #### L 500.2500, L100.0100 ####[facility] [address] [place], [address] Urea nitrogen [Mass/Vol] 23 mg/dL High 4-19 [facility] Comment on above: Performed By: #### L 500.2500, L100.0100 ####[facility] [address] [place], [address] Basophil percentageOrdered B y: Montse Cabrera on 12-11-2024 Basophils/100 WBC (Bld) 0.4 % 0-1 [facility] CBC W/Diff, Automatedon 11-23 Absolute Lymph 0.65 X10 3/uL Low 0.83-4.51 [facility] Comment on above: Performed By: #### L 500.2500, L100.0100 ####[facility] [address] [place], [address] Absolute Neut 5.7 X10 3/uL Normal 2.0-7.7 [facility] Comment on above: Performed By: #### L 500.2500, L100.0100 ####[facility] [address] [place], [address] Basophils/100 WBC (Bld) 0.4 % Normal 0-1 [facility] Comment on above: Performed By: #### L 500.2500, L100.0100 ####[facility] [address] [place], [address] Eosinophils/100 WBC (Bld) 1.5 % Normal 0-5 [facility] Comment on above: Performed By: #### L 500.2500, L100.0100 ####[facility] [address] [place], [address] Erythrocyte distribution width (RBC) [Ratio] 12.7 % Normal 11.6-14.6 [facility] Comment on above: Performed By: #### L 500.2500, L100.0100 ####[facility] [address] [place], [address] Hematocrit (Bld) [Volume fraction] 35.0 % Low 37-47 [facility] Comment on above: Performed By: #### L 500.2500, L100.0100 ####[facility] [address] [place], [address] Hemoglobin (Bld) [Mass/Vol] 12.0 g/dL Normal 12.0-15.0 [facility] Comment on above: Performed By: #### L 500.2500, L100.0100 ####[facility] [address] [place], [address] IG% 0.700 Normal 0.0-0.9 [facility] Comment on above: Result Comment: IG% - Immature Granulocytes (promyelocytes, myelocytes andmetamyelocytes) > 1% indicates that a LEFT SHIFT is Present. Performed By: #### L 500.2500, L100.0100 ####[facility] [address], [address] Lymphocytes/100 WBC (Bld) 9.1 % Low 19-41 [facility] Comment on above: Performed By: #### L 500.2500, L100.0100 ####[facility] [address] [place], [address] MCH (RBC) [Entitic mass] 29.3 pg Normal 27.0-32.0 [facility] Comment on above: Performed By: #### L 500.2500, L100.0100 ####[facility] [address] [place], [address] MCHC (RBC) [Mass/Vol] 34.3 g/dL Normal 32-36 [facility] Comment on above: Performed By: #### L 500.2500, L100.0100 ####[facility] [address] [place], [address] MCV (RBC) [Entitic vol] 85.6 fL Normal 81-99 [facility] Comment on above: Performed By: #### L 500.2500, L100.0100 ####[facility] [address] [place], [address] Monocytes/100 WBC (Bld) 8.5 % Normal 0-10 [facility] Comment on above: Performed By: #### L 500.2500, L100.0100 ####[facility] [address] [place], [address] Neutrophils/100 WBC (Bld) 79.8 % High 47-70 [facility] Comment on above: Performed By: #### L 500.2500, L100.0100 ####[facility] [address] [place], [address] Nucleated RBC (Bld) [#/Vol] 0 10*3/uL Normal 0-5 [facility] Comment on above: Performed By: #### L 500.2500, L100.0100 ####[facility] [address] [place], [address] Platelet mean volume (Bld) [Entitic vol] 9.8 fL Normal 6.2-12.0 [facility] Comment on above: Performed By: #### L 500.2500, L100.0100 ####[facility] [address] [place], [address] Platelets (Bld) [#/Vol] 277 10*3/uL Normal 150-450 [facility] Comment on above: Performed By: #### L 500.2500, L100.0100 ####[facility] [address] [place], [address] RBC (Bld) [#/Vol] 4.09 10*6/uL Low 4.2-5.4 [facility] Comment on above: Performed By: #### L 500.2500, L100.0100 ####[facility] [address] [place], [address] RDW SD 39.5 fl Normal 35.1-43.9 [facility] Comment on above: Performed By: #### L 500.2500, L100.0100 ####[facility] [address] [place], [address] WBC (Bld) [#/Vol] 7.2 10*3/uL Normal 4.4-11.0 [facility] Comment on above: Performed By: #### L 500.2500, L100.0100 ####[facility] [address] [place], [address] Carbon dioxide, total [Moles /volume] in Central venous bloodOrdered By: Montse Cabrera on 12-11-2024 CO2 [Moles/Vol] 18.5 mmol/L Low 21.0-32.0 [facility] Chloride assayOrdered By: Na na Rick on 12-11-2024 Chloride [Moles/Vol] 91 mmol/L Low 98-108 [facility] Eosinophil percentageOrdered By: Montse Cabrera on 12-11-2024 Eosinophils/100 WBC (Bld) 1.5 % 0-5 [facility] Erythrocyte distribution wid th ratioOrdered By: Montse Cabrera on 12-11-2024 Erythrocyte distribution width (RBC) [Ratio] 12.7 % 11.6-14.6 [facility] Erythrocyte distribution wid th standard deviationOrdered By: Montse Cabrera on 12-11-2024 Erythrocyte distribution width (RBC) [Entitic vol] 39.5 fL 35.1-43.9 [facility] Estimation of creatinine clemencia aranceOrdered By: Montse Cabrera on 12-11-2024 Estimated Creatinine Clearance Calc 49.52 ml/min Low 50-250 [facility] GFR/1.73 sq M.predicted stephen g non-blacks MDRD (S/P/Bld) [Vol rate/Area]Ordered By: Montse Cabrera on 12-11-2024 Estimated GFR (MDRD) Non-Af Amer 60 >60 [facility] Comment on above: mL/min/1.73m2 CKD-EP I Creatinine Equation (2020) Hematocrit Auto (Bld) [Volum e fraction]Ordered By: Montse Cabrera 12-11-2024 Hematocrit (Bld) [Volume fraction] 35.0 % Low 37-47 [facility] Hemoglobin measurementOrdere d By: Montse Cabrera 12-11-2024 Hemoglobin (Bld) [Mass/Vol] 12.0 g/dL 12.0-15.0 [facility] Immature granulocytes/100 WB C Auto (Bld)Ordered By: Montse Cabrera 12-11-2024 Immature granulocytes/100 WBC (Bld) 0.700 % 0.0-0.9 [facility] Comment on above: IG% - Immature Granu locytes (promyelocytes, myelocytes and metamyelocytes) > 1% indicates that a LEFT SHIFT is Present. Lymphocytes Auto (Unsp spec) [#/Vol]Ordered By: Montse Cabrera 12-11-2024 Lymphocytes (Bld) [#/Vol] 0.65 10*3/uL Low 0.83-4.51 [facility] Lymphocytes/100 WBC Auto (Un sp spec)Ordered By: Montse Cabrera on 12-11-2024 Lymphocytes/100 WBC (Bld) 9.1 % Low 19-41 [facility] MCV (mean corpuscular volume ) determinationOrdered By: Montse Cabrera on 12-11-2024 MCV (RBC) [Entitic vol] 85.6 fL 81-99 [facility] Mean corpuscular hemoglobin (MCH) determinationOrdered By: Montse Cabrera on 12-11-2024 MCH (RBC) [Entitic mass] 29.3 pg 27.0-32.0 [facility] Mean corpuscular hemoglobin concentration (MCHC) determinationOrdered By: Montse Cabrera on 12-11-2024 MCHC (RBC) [Mass/Vol] 34.3 g/dL 32-36 [facility] Mean platelet volume determi nationOrdered By: Montse Cabrera on 12-11-2024 Platelet mean volume (Bld) [Entitic vol] 9.8 fL 6.2-12.0 [facility] Monocyte percentageOrdered B y: Montse Cabrera on 12-11-2024 Monocytes/100 WBC (Bld) 8.5 % 0-10 [facility] Neutrophil percentageOrdered By: Montse Cabrera on 12-11-2024 Neutrophils/100 WBC (Bld) 79.8 % High 47-70 [facility] Nucleated red blood cell per centageOrdered By: Montse Cabrera on 12-11-2024 Nucleated RBC/100 WBC (Bld) [Ratio] 0 % 0-5 [facility] Platelet countOrdered By: Na bony Cabrera on 12-11-2024 Platelets (Bld) [#/Vol] 277 10*3/uL 150-450 [facility] Potassium (Unsp spec) [Mass/ Vol]Ordered By: Montse Cabrera on 12-11-2024 Potassium [Moles/Vol] 4.7 mmol/L 3.3-5.1 [facility] RBC Auto (Bld) [#/Vol]Ordere d By: Montse Cabrera on 12-11-2024 RBC (Bld) [#/Vol] 4.09 10*6/uL Low 4.2-5.4 [facility] Serum creatinine measurement (mass/volume)Ordered By: Montsechristina Cabrera on 12-11-2024 Creatinine [Mass/Vol] 0.95 mg/dL 0.70-1.20 [facility] Serum glucose measurement (m ass/volume)Ordered By: Montse Cabrera on 12-11-2024 Glucose [Mass/Vol] 108 mg/dL High 70-99 [facility] Serum or plasma calcium cindy urement (mass/volume)Ordered By: Montse Cabrera on 12-11-2024 Calcium [Mass/Vol] 9.1 mg/dL 7.6-11.0 [facility] Serum or plasma urea nitroge n measurement (mass/volume)Ordered By: Montse Cabrera on 12-11-2024 Urea nitrogen [Mass/Vol] 23 mg/dL High 4-19 [facility] Sodium levelOrdered By: Montse Cabrera on 12-11-2024 Sodium [Moles/Vol] 122 mmol/L Low 133-145 [facility] White blood cell (WBC) count Ordered By: Montse Cabrera on 12-11-2024 WBC (Bld) [#/Vol] 7.2 10*3/uL 4.4-11.0 [facility] Basic Metabolic Profile (BMP )on 12-10-2024 BUN/CRE 28.0 RATIO High 10-20 [facility] Comment on above: Performed By: #### L 500.2500 ####[facility] [address] [place], [address] Calcium [Mass/Vol] 8.8 mg/dL Normal 7.6-11.0 [facility] Comment on above: Performed By: #### L 500.2500 ####[facility] [address] [place], [address] Chloride [Moles/Vol] 88 mmol/L Low 98-108 [facility] Comment on above: Performed By: #### L 500.2500 ####[facility] [address] [place], [address] CO2 [Moles/Vol] 18.5 mmol/L Low 21.0-32.0 [facility] Comment on above: Performed By: #### L 500.2500 ####[facility] [address] [place], [address] Creatinine [Mass/Vol] 0.67 mg/dL Low 0.70-1.20 [facility] Comment on above: Performed By: #### L 500.2500 ####[facility] [address] [place], [address] ECRCL 58.80 ml/min Normal 50-250 [facility] Comment on above: Performed By: #### L 500.2500 ####[facility] [address] [place], [address] GAP 12 Normal 5-15 [facility] Comment on above: Performed By: #### L 500.2500 ####[facility] [address] [place], [address] GFR/1.73 sq M.predicted among non-blacks MDRD (S/P/Bld) [Vol rate/Area] 88 mL/min/{1.73_m2} Normal >60 [facility] Comment on above: Result Comment: mL/m in/1.73m2 CKD-EPI Creatinine Equation (2020) Performed By: #### L 500.2500 ####[facility] [address] [place], [address] Glucose [Mass/Vol] 110 mg/dL High 70-99 [facility] Comment on above: Performed By: #### L 500.2500 ####[facility] [address] [place], [address] Potassium [Moles/Vol] 4.4 mmol/L Normal 3.3-5.1 [facility] Comment on above: Performed By: #### L 500.2500 ####[facility] [address] [place], [address] Sodium [Moles/Vol] 118 mmol/L Invalid Interpretation Code 133-145 [facility] Comment on above: Result Comment: Crit ical Result(s) Called at 1534: TO KSHANK by:KCLAPPER??Results read back by same. Performed By: #### L 500.2500 ####[facility] [address] [place], [address] Urea nitrogen [Mass/Vol] 19 mg/dL Normal 4-19 [facility] Comment on above: Performed By: #### L 500.2500 ####[facility] [address] [place], [address] BUN/CRE 29.0 RATIO High 10-20 [facility] Comment on above: Performed By: #### L 100.0100, L500.2500 ####[facility] [address], [address] Calcium [Mass/Vol] 8.6 mg/dL Normal 7.6-11.0 [facility] Comment on above: Performed By: #### L 100.0100, L500.2500 ####[facility] [address] [place], [address] Chloride [Moles/Vol] 91 mmol/L Low 98-108 [facility] Comment on above: Performed By: #### L 100.0100, L500.2500 ####[facility] [address] [place], [address] CO2 [Moles/Vol] 19.4 mmol/L Low 21.0-32.0 [facility] Comment on above: Performed By: #### L 100.0100, L500.2500 ####[facility] [address] [place], [address] Creatinine [Mass/Vol] 0.70 mg/dL Normal 0.70-1.20 [facility] Comment on above: Performed By: #### L 100.0100, L500.2500 ####[facility] [address] [place], [address] ECRCL 58.80 ml/min Normal 50-250 [facility] Comment on above: Performed By: #### L 100.0100, L500.2500 ####[facility] [facility] [address] [place], [address] GAP 9 Normal 5-15 [facility] Comment on above: Performed By: #### L 100.0100, L500.2500 ####[facility] [address] [place], [address] GFR/1.73 sq M.predicted among non-blacks MDRD (S/P/Bld) [Vol rate/Area] 87 mL/min/{1.73_m2} Normal >60 [facility] Comment on above: Result Comment: mL/m in/1.73m2 CKD-EPI Creatinine Equation (2020) Performed By: #### L 100.0100, L500.2500 ####[facility] [address] [place], [address] Glucose [Mass/Vol] 111 mg/dL High 70-99 [facility] Comment on above: Performed By: #### L 100.0100, L500.2500 ####[facility] [address] [place], [address] Potassium [Moles/Vol] 4.5 mmol/L Normal 3.3-5.1 [facility] Comment on above: Performed By: #### L 100.0100, L500.2500 ####[facility] [address] [place], [address] Sodium [Moles/Vol] 119 mmol/L Invalid Interpretation Code 133-145 [facility] Comment on above: Result Comment: Crit ical Result(s) Called at:0625by: MIREYA CHACON TO DOLORESYUDITHCONG??Results read back by same. Performed By: #### L 100.0100, L500.2500 ####[facility] [address] [place], [address] Urea nitrogen [Mass/Vol] 20 mg/dL High 4-19 [facility] Comment on above: Performed By: #### L 100.0100, L500.2500 ####[facility] [address] [place], [address] CBC W/Diff, Automatedon 11-22 Absolute Lymph 0.92 X10 3/uL Normal 0.83-4.51 [facility] Comment on above: Performed By: #### L 100.0100, L500.2500 ####[facility] [address] [place], [address] Absolute Neut 5.5 X10 3/uL Normal 2.0-7.7 [facility] Comment on above: Performed By: #### L 100.0100, L500.2500 ####[facility] [address] [place], [address] Basophils/100 WBC (Bld) 0.3 % Normal 0-1 [facility] Comment on above: Performed By: #### L 100.0100, L500.2500 ####[facility] [address] [place], [address] Eosinophils/100 WBC (Bld) 2.5 % Normal 0-5 [facility] Comment on above: Performed By: #### L 100.0100, L500.2500 ####[facility] [address] [place], [address] Erythrocyte distribution width (RBC) [Ratio] 12.8 % Normal 11.6-14.6 [facility] Comment on above: Performed By: #### L 100.0100, L500.2500 ####[facility] [address] [place], [address] Hematocrit (Bld) [Volume fraction] 34.0 % Low 37-47 [facility] Comment on above: Performed By: #### L 100.0100, L500.2500 ####[facility] [address] [place], [address] Hemoglobin (Bld) [Mass/Vol] 11.7 g/dL Low 12.0-15.0 [facility] Comment on above: Performed By: #### L 100.0100, L500.2500 ####[facility] [address] [place], [address] IG% 0.400 Normal 0.0-0.9 [facility] Comment on above: Result Comment: IG% - Immature Granulocytes (promyelocytes, myelocytes andmetamyelocytes) > 1% indicates that a LEFT SHIFT is Present. Performed By: #### L 100.0100, L500.2500 ####[facility] [address] [place], [address] Lymphocytes/100 WBC (Bld) 12.7 % Low 19-41 [facility] Comment on above: Performed By: #### L 100.0100, L500.2500 ####[facility] [address] [place], [address] MCH (RBC) [Entitic mass] 29.1 pg Normal 27.0-32.0 [facility] Comment on above: Performed By: #### L 100.0100, L500.2500 ####[facility] [address] [place], [address] MCHC (RBC) [Mass/Vol] 34.4 g/dL Normal 32-36 [facility] Comment on above: Performed By: #### L 100.0100, L500.2500 ####[facility] [address] [place], [address] MCV (RBC) [Entitic vol] 84.6 fL Normal 81-99 [facility] Comment on above: Performed By: #### L 100.0100, L500.2500 ####[facility] [address] [place], [address] Monocytes/100 WBC (Bld) 8.1 % Normal 0-10 [facility] Comment on above: Performed By: #### L 100.0100, L500.2500 ####[facility] [address] [place], [address] Neutrophils/100 WBC (Bld) 76.0 % High 47-70 [facility] Comment on above: Performed By: #### L 100.0100, L500.2500 ####[facility] [address] [place], [address] Nucleated RBC (Bld) [#/Vol] 0 10*3/uL Normal 0-5 [facility] Comment on above: Performed By: #### L 100.0100, L500.2500 ####[facility] [address] [place], [address] Platelet mean volume (Bld) [Entitic vol] 9.5 fL Normal 6.2-12.0 [facility] Comment on above: Performed By: #### L 100.0100, L500.2500 ####[facility] [address] [place], [address] Platelets (Bld) [#/Vol] 255 10*3/uL Normal 150-450 [facility] Comment on above: Performed By: #### L 100.0100, L500.2500 ####[facility] [address] [place], [address] RBC (Bld) [#/Vol] 4.02 10*6/uL Low 4.2-5.4 [facility] Comment on above: Performed By: #### L 100.0100, L500.2500 ####[facility] [address] [place], [address] RDW SD 39.2 fl Normal 35.1-43.9 [facility] Comment on above: Performed By: #### L 100.0100, L500.2500 ####[facility] [address], [address] WBC (Bld) [#/Vol] 7.3 10*3/uL Normal 4.4-11.0 [facility] Comment on above: Performed By: #### L 100.0100, L500.2500 ####[facility] [address] [place], [address] Consultation - Nephrologyon 12-10-2024 Consultation - Nephrology Normal [facility] Basic Metabolic Profile (BMP )on 12-09-2024 BUN/CRE 30.0 RATIO High 10-20 [facility] Comment on above: Performed By: #### L 500.2500 ####[facility] [address] [place], [address] Calcium [Mass/Vol] 8.8 mg/dL Normal 7.6-11.0 [facility] Comment on above: Performed By: #### L 500.2500 ####[facility] [address], [address] Chloride [Moles/Vol] 89 mmol/L Low 98-108 [facility] Comment on above: Performed By: #### L 500.2500 ####[facility] [address], [address] CO2 [Moles/Vol] 21.0 mmol/L Normal 21.0-32.0 [facility] Comment on above: Performed By: #### L 500.2500 ####[facility] [address] [place], [address] Creatinine [Mass/Vol] 0.75 mg/dL Normal 0.70-1.20 [facility] Comment on above: Performed By: #### L 500.2500 ####[facility] [address] [place], [address] ECRCL 58.80 ml/min Normal 50-250 [facility] Comment on above: Performed By: #### L 500.2500 ####[facility] [address] [place], [address] GAP 8 Normal 5-15 [facility] Comment on above: Performed By: #### L 500.2500 ####[facility] [address] [place], [address] GFR/1.73 sq M.predicted among non-blacks MDRD (S/P/Bld) [Vol rate/Area] 80 mL/min/{1.73_m2} Normal >60 [facility] Comment on above: Result Comment: mL/m in/1.73m2 CKD-EPI Creatinine Equation (2020) Performed By: #### L 500.2500 ####[facility] [address] [place], [address] Glucose [Mass/Vol] 105 mg/dL High 70-99 [facility] Comment on above: Performed By: #### L 500.2500 ####[facility] [address] [place], [address] Potassium [Moles/Vol] 4.4 mmol/L Normal 3.3-5.1 [facility] Comment on above: Performed By: #### L 500.2500 ####[facility] [address] [place], [address] Sodium [Moles/Vol] 118 mmol/L Invalid Interpretation Code 133-145 [facility] Comment on above: Result Comment: Crit ical Result(s) Called ACOLE at: 1605 by:PHILLIP??Results read back by same. Performed By: #### L 500.2500 ####[facility] [address] [place], [address] Urea nitrogen [Mass/Vol] 22 mg/dL High 4-19 [facility] Comment on above: Performed By: #### L 500.2500 ####[facility] [address] [place], [address] Osmolality (U) [Osmolality]O rdered By: Montse Cabrera on 12-09-2024 Urine Osmolality 661 mOsm/KG >50 [facility] Comment on above: Normal Urine Referen ce Ranges Random: 50 - 1200 mOsm/kg H20 depending on fluid intake Random: >850 mOsm/kg after 12 hour fluid restriction 24 hour: ~300 - 900 mOsm/kg H2O Osmolality, Serumon 12-10-19 25 OSMOLALITY,SER 257 mOsm/KG Low 280-301 [facility] Comment on above: Performed By: #### L 501.7300 ####[facility] [address] [facility] [place], [address] Osmolality, Urineon 12-10-19 25 OSMOLALITY,UR 661 mOsm/KG Normal [facility] Comment on above: Result Comment: Norm al Urine Reference Ranges Random: 50 - 1200 mOsm/kg H20 depending on fluid intake Random: >850 mOsm/kg after 12 hour fluid restriction 24 hour: 300 - 900 mOsm/kg H2O Performed By: #### L 501.7400, L501.5500 ####[facility] [address] [facility] [place], [address] Osmolality, serumOrdered By: Montse Cabrera on 12-09-2024 Serum Osmolality 257 mOsm/KG Low 280-301 [facility] Sodium Levelon 12-09-2024 Sodium [Moles/Vol] 118 mmol/L Invalid Interpretation Code 133-145 [facility] Comment on above: Result Comment: Crit ical Result(s) Called at:2320 by: MIREYA MORALES??Results read back by same. Performed By: #### L 501.5300 ####[facility] [address] [facility] [place], [address] Urine sodium measurement (mo les/volume)Ordered By: Montse Cabrera on 12-09-2024 Sodium (U) [Moles/Vol] 22 mmol/L Normal Not Establ. [facility] Comment on above: Performed By: #### L 501.7400, L501.5500 ####[facility] [address] [place], [address] Basic Metabolic Profile (BMP )on 12-08-2024 BUN/CRE 30.4 RATIO High 10-20 [facility] Comment on above: Performed By: #### L 500.2500, L100.0100 ####[facility] [address], [address] Calcium [Mass/Vol] 9.0 mg/dL Normal 7.6-11.0 [facility] Comment on above: Performed By: #### L 500.2500, L100.0100 ####[facility] [address] [place], [address] Chloride [Moles/Vol] 94 mmol/L Low 98-108 [facility] Comment on above: Performed By: #### L 500.2500, L100.0100 ####[facility] [address] [place], [address] CO2 [Moles/Vol] 22.7 mmol/L Normal 21.0-32.0 [facility] Comment on above: Performed By: #### L 500.2500, L100.0100 ####[facility] [address] [place], [address] Creatinine [Mass/Vol] 0.84 mg/dL Normal 0.70-1.20 [facility] Comment on above: Performed By: #### L 500.2500, L100.0100 ####[facility] [address] [place], [address] ECRCL 56.00 ml/min Normal 50-250 [facility] Comment on above: Performed By: #### L 500.2500, L100.0100 ####[facility] [address] [place], [address] GAP 9 Normal 5-15 [facility] Comment on above: Performed By: #### L 500.2500, L100.0100 ####[facility] [address] [place], [address] GFR/1.73 sq M.predicted among non-blacks MDRD (S/P/Bld) [Vol rate/Area] 70 mL/min/{1.73_m2} Normal >60 [facility] Comment on above: Result Comment: mL/m in/1.73m2 CKD-EPI Creatinine Equation (2020) Performed By: #### L 500.2500, L100.0100 ####[facility] [address] [place], [address] Glucose [Mass/Vol] 134 mg/dL High 70-99 [facility] Comment on above: Performed By: #### L 500.2500, L100.0100 ####[facility] [address] [place], [address] Potassium [Moles/Vol] 3.8 mmol/L Normal 3.3-5.1 [facility] Comment on above: Performed By: #### L 500.2500, L100.0100 ####[facility] [address] [place], [address] Sodium [Moles/Vol] 125 mmol/L Low 133-145 [facility] Comment on above: Performed By: #### L 500.2500, L100.0100 ####[facility] [address] [place], [address] Urea nitrogen [Mass/Vol] 26 mg/dL High 4-19 [facility] Comment on above: Performed By: #### L 500.2500, L100.0100 ####[facility] [address] [place], [address] CBC W/Diff, Automatedon 11-22 Absolute Lymph 0.99 X10 3/uL Normal 0.83-4.51 [facility] Comment on above: Performed By: #### L 500.2500, L100.0100 ####[facility] [address], [address] Absolute Neut 7.0 X10 3/uL Normal 2.0-7.7 [facility] Comment on above: Performed By: #### L 500.2500, L100.0100 ####[facility] [address] [place], [address] Basophils/100 WBC (Bld) 0.2 % Normal 0-1 [facility] Comment on above: Performed By: #### L 500.2500, L100.0100 ####[facility] [address] [place], [address] Eosinophils/100 WBC (Bld) 1.4 % Normal 0-5 [facility] Comment on above: Performed By: #### L 500.2500, L100.0100 ####[facility] [address] [place], [address] Erythrocyte distribution width (RBC) [Ratio] 13.0 % Normal 11.6-14.6 [facility] Comment on above: Performed By: #### L 500.2500, L100.0100 ####[facility] [address] [place], [address] Hematocrit (Bld) [Volume fraction] 37.9 % Normal 37-47 [facility] Comment on above: Performed By: #### L 500.2500, L100.0100 ####[facility] [address], [address] Hemoglobin (Bld) [Mass/Vol] 12.6 g/dL Normal 12.0-15.0 [facility] Comment on above: Performed By: #### L 500.2500, L100.0100 ####[facility] [address] [place], [address] IG% 0.300 Normal 0.0-0.9 [facility] Comment on above: Result Comment: IG% - Immature Granulocytes (promyelocytes, myelocytes andmetamyelocytes) > 1% indicates that a LEFT SHIFT is Present. Performed By: #### L 500.2500, L100.0100 ####[facility] [address] [place], [address] Lymphocytes/100 WBC (Bld) 11.2 % Low 19-41 [facility] Comment on above: Performed By: #### L 500.2500, L100.0100 ####[facility] [address] [place], [address] MCH (RBC) [Entitic mass] 29.2 pg Normal 27.0-32.0 [facility] Comment on above: Performed By: #### L 500.2500, L100.0100 ####[facility] [address] [place], [address] MCHC (RBC) [Mass/Vol] 33.2 g/dL Normal 32-36 [facility] Comment on above: Performed By: #### L 500.2500, L100.0100 ####[facility] [address] [place], [address] MCV (RBC) [Entitic vol] 87.9 fL Normal 81-99 [facility] Comment on above: Performed By: #### L 500.2500, L100.0100 ####[facility] [address] [place], [address] Monocytes/100 WBC (Bld) 7.2 % Normal 0-10 [facility] Comment on above: Performed By: #### L 500.2500, L100.0100 ####[facility] [address] [place], [address] Neutrophils/100 WBC (Bld) 79.7 % High 47-70 [facility] Comment on above: Performed By: #### L 500.2500, L100.0100 ####[facility] [address] [place], [address] Nucleated RBC (Bld) [#/Vol] 0 10*3/uL Normal 0-5 [facility] Comment on above: Performed By: #### L 500.2500, L100.0100 ####[facility] [address] [place], [address] Platelet mean volume (Bld) [Entitic vol] 9.3 fL Normal 6.2-12.0 [facility] Comment on above: Performed By: #### L 500.2500, L100.0100 ####[facility] [address] [place], [address] Platelets (Bld) [#/Vol] 248 10*3/uL Normal 150-450 [facility] Comment on above: Performed By: #### L 500.2500, L100.0100 ####[facility] [address] [place], [address] RBC (Bld) [#/Vol] 4.31 10*6/uL Normal 4.2-5.4 [facility] Comment on above: Performed By: #### L 500.2500, L100.0100 ####[facility] [address] [place], [address] RDW SD 42.1 fl Normal 35.1-43.9 [facility] Comment on above: Performed By: #### L 500.2500, L100.0100 ####[facility] [address] [place], [address] WBC (Bld) [#/Vol] 8.8 10*3/uL Normal 4.4-11.0 [facility] Comment on above: Performed By: #### L 500.2500, L100.0100 ####[facility] [address] [place], [address] Electrocardiogram reportOrde red By: Wally So on 12-08-2024 EKG study [facility] [address] [place] [address] 12 Lead EKG 12/06/24 1749 MR#: [id number] Acct: [id number] Name: JERO LEWIS Rep #:[id number] : 1945 79 From: Wally So MD Attending Dr: Dr. Montse Cabrera MD Status: ADM IN Ordering Dr: Rita Nowak Date: 12/06/24 Location: [facility] Sex: F C Admitted: 12/06/24 Test Reason [...] T wave abnormality Abnormal ECG Confirmed by GENIE BURRELL, WALLY ([id number]), online editor SHALINI LOUIS ([id number]) on 12/08/2024 8:18:25 AM Referred By: WRIHT Confirmed By: WALLY SO MD 12/08/24 0818 Date _ Wally So MD CC: Dr. Argelia Darby DO; Dr. Montse Cabrera MD; MEKHI Raza ~ Signed [facility] Other Phone: Bilirubin directOrdered By: Sandro Jackman on 12-07-2024 Bilirubin.direct [Mass/Vol] 0.29 mg/dL 0.00-0.30 [facility] Bilirubin, Directon 12-08-19 25 Bilirubin.direct [Mass/Vol] 0.29 mg/dL Normal 0.00-0.30 [facility] Comment on above: Performed By: #### L 501.5200, L501.2300, L100.0100, L501.4700, L500.4050, L300.3900, L501.9520 ####[facility] [address] [place], [address] Bilirubin, totalOrdered By: Sandro Jackman on 12-07-2024 Bilirubin [Mass/Vol] 0.68 mg/dL 0.00-1.30 [facility] CBC W/Diff, Automatedon 11-22 Absolute Lymph 0.97 X10 3/uL Normal 0.83-4.51 [facility] Comment on above: Performed By: #### L 501.5200, L501.2300, L100.0100, L501.4700, L500.4050, L300.3900, L501.9520 ####[facility] [address] [place], [address] Absolute Neut 5.7 X10 3/uL Normal 2.0-7.7 [facility] Comment on above: Performed By: #### L 501.5200, L501.2300, L100.0100, L501.4700, L500.4050, L300.3900, L501.9520 ####[facility] [address] [place], [address] Basophils/100 WBC (Bld) 0.3 % Normal 0-1 [facility] Comment on above: Performed By: #### L 501.5200, L501.2300, L100.0100, L501.4700, L500.4050, L300.3900, L501.9520 ####[facility] [address] [place], [address] Eosinophils/100 WBC (Bld) 0.4 % Normal 0-5 [facility] Comment on above: Performed By: #### L 501.5200, L501.2300, L100.0100, L501.4700, L500.4050, L300.3900, L501.9520 ####[facility] [address] [place], [address] Erythrocyte distribution width (RBC) [Ratio] 13.0 % Normal 11.6-14.6 [facility] Comment on above: Performed By: #### L 501.5200, L501.2300, L100.0100, L501.4700, L500.4050, L300.3900, L501.9520 ####[facility] [address] [place], [address] Hematocrit (Bld) [Volume fraction] 39.0 % Normal 37-47 [facility] Comment on above: Performed By: #### L 501.5200, L501.2300, L100.0100, L501.4700, L500.4050, L300.3900, L501.9520 ####[facility] [address], [address] Hemoglobin (Bld) [Mass/Vol] 12.9 g/dL Normal 12.0-15.0 [facility] Comment on above: Performed By: #### L 501.5200, L501.2300, L100.0100, L501.4700, L500.4050, L300.3900, L501.9520 ####[facility] [address] [place], [address] IG% 0.400 Normal 0.0-0.9 [facility] Comment on above: Result Comment: IG% - Immature Granulocytes (promyelocytes, myelocytes andmetamyelocytes) > 1% indicates that a LEFT SHIFT is Present. Performed By: #### L 501.5200, L501.2300, L100.0100, L501.4700, L500.4050, L300.3900, L501.9520 ####[facility] [address] [place], [address] Lymphocytes/100 WBC (Bld) 13.1 % Low 19-41 [facility] Comment on above: Performed By: #### L 501.5200, L501.2300, L100.0100, L501.4700, L500.4050, L300.3900, L501.9520 ####[facility] [address] [place], [address] MCH (RBC) [Entitic mass] 29.3 pg Normal 27.0-32.0 [facility] Comment on above: Performed By: #### L 501.5200, L501.2300, L100.0100, L501.4700, L500.4050, L300.3900, L501.9520 ####[facility] [address] [place], [address] MCHC (RBC) [Mass/Vol] 33.1 g/dL Normal 32-36 [facility] Comment on above: Performed By: #### L 501.5200, L501.2300, L100.0100, L501.4700, L500.4050, L300.3900, L501.9520 ####[facility] [address] [place], [address] MCV (RBC) [Entitic vol] 88.6 fL Normal 81-99 [facility] Comment on above: Performed By: #### L 501.5200, L501.2300, L100.0100, L501.4700, L500.4050, L300.3900, L501.9520 ####[facility] [address] [place], [address] Monocytes/100 WBC (Bld) 8.3 % Normal 0-10 [facility] Comment on above: Performed By: #### L 501.5200, L501.2300, L100.0100, L501.4700, L500.4050, L300.3900, L501.9520 ####[facility] [address] [place], [address] Neutrophils/100 WBC (Bld) 77.5 % High 47-70 [facility] Comment on above: Performed By: #### L 501.5200, L501.2300, L100.0100, L501.4700, L500.4050, L300.3900, L501.9520 ####[facility] [address] [place], [address] Nucleated RBC (Bld) [#/Vol] 0 10*3/uL Normal 0-5 [facility] Comment on above: Performed By: #### L 501.5200, L501.2300, L100.0100, L501.4700, L500.4050, L300.3900, L501.9520 ####[facility] [address] [place], [address] Platelet mean volume (Bld) [Entitic vol] 9.7 fL Normal 6.2-12.0 [facility] Comment on above: Performed By: #### L 501.5200, L501.2300, L100.0100, L501.4700, L500.4050, L300.3900, L501.9520 ####[facility] [address] [place], [address] Platelets (Bld) [#/Vol] 263 10*3/uL Normal 150-450 [facility] Comment on above: Performed By: #### L 501.5200, L501.2300, L100.0100, L501.4700, L500.4050, L300.3900, L501.9520 ####[facility] [address] [place], [address] RBC (Bld) [#/Vol] 4.40 10*6/uL Normal 4.2-5.4 [facility] Comment on above: Performed By: #### L 501.5200, L501.2300, L100.0100, L501.4700, L500.4050, L300.3900, L501.9520 ####[facility] [address] [place], [address] RDW SD 42.5 fl Normal 35.1-43.9 [facility] Comment on above: Performed By: #### L 501.5200, L501.2300, L100.0100, L501.4700, L500.4050, L300.3900, L501.9520 ####[facility] [address] [place], [address] WBC (Bld) [#/Vol] 7.4 10*3/uL Normal 4.4-11.0 [facility] Comment on above: Performed By: #### L 501.5200, L501.2300, L100.0100, L501.4700, L500.4050, L300.3900, L501.9520 ####[facility] [address] [place], [address] Comprehensive Metabolic [facility] 12-07-2024 Albumin [Mass/Vol] 3.9 g/dL Normal 3.4-4.8 [facility] Comment on above: Performed By: #### L 501.5200, L501.2300, L100.0100, L501.4700, L500.4050, L300.3900, L501.9520 ####[facility] [address] [place], [address] Albumin/Globulin [Mass ratio] 1.6 {ratio} Normal 0.9-2.4 [facility] Comment on above: Performed By: #### L 501.5200, L501.2300, L100.0100, L501.4700, L500.4050, L300.3900, L501.9520 ####[facility] [address] [place], [address] ALK PHOS 66 U/L Normal 35-104 [facility] Comment on above: Performed By: #### L 501.5200, L501.2300, L100.0100, L501.4700, L500.4050, L300.3900, L501.9520 ####[facility] [address] [place], [address] ALT [Catalytic activity/Vol] 17 U/L Normal <=34 [facility] Comment on above: Performed By: #### L 501.5200, L501.2300, L100.0100, L501.4700, L500.4050, L300.3900, L501.9520 ####[facility] [address] [place], [address] AST [Catalytic activity/Vol] 33 U/L High <=31 [facility] Comment on above: Performed By: #### L 501.5200, L501.2300, L100.0100, L501.4700, L500.4050, L300.3900, L501.9520 ####[facility] [address] [place], [address] Bilirubin [Mass/Vol] 0.68 mg/dL Normal 0.00-1.30 [facility] Comment on above: Performed By: #### L 501.5200, L501.2300, L100.0100, L501.4700, L500.4050, L300.3900, L501.9520 ####[facility] [address] [place], [address] BUN/CRE 20.6 RATIO High 10-20 [facility] Comment on above: Performed By: #### L 501.5200, L501.2300, L100.0100, L501.4700, L500.4050, L300.3900, L501.9520 ####[facility] [address] [place], [address] Calcium [Mass/Vol] 9.3 mg/dL Normal 7.6-11.0 [facility] Comment on above: Performed By: #### L 501.5200, L501.2300, L100.0100, L501.4700, L500.4050, L300.3900, L501.9520 ####[facility] [address] [place], [address] Chloride [Moles/Vol] 97 mmol/L Low 98-108 [facility] Comment on above: Performed By: #### L 501.5200, L501.2300, L100.0100, L501.4700, L500.4050, L300.3900, L501.9520 ####[facility] [address] [place], [address] CO2 [Moles/Vol] 21.9 mmol/L Normal 21.0-32.0 [facility] Comment on above: Performed By: #### L 501.5200, L501.2300, L100.0100, L501.4700, L500.4050, L300.3900, L501.9520 ####[facility] [address] [place], [address] Creatinine [Mass/Vol] 0.93 mg/dL Normal 0.70-1.20 [facility] Comment on above: Performed By: #### L 501.5200, L501.2300, L100.0100, L501.4700, L500.4050, L300.3900, L501.9520 ####[facility] [address] [place], [address] ECRCL 50.58 ml/min Normal 50-250 [facility] Comment on above: Performed By: #### L 501.5200, L501.2300, L100.0100, L501.4700, L500.4050, L300.3900, L501.9520 ####[facility] [address] [place], [address] GAP 13 Normal 5-15 [facility] Comment on above: Performed By: #### L 501.5200, L501.2300, L100.0100, L501.4700, L500.4050, L300.3900, L501.9520 ####[facility] [address] [place], [address] GFR/1.73 sq M.predicted among non-blacks MDRD (S/P/Bld) [Vol rate/Area] 62 mL/min/{1.73_m2} Normal >60 [facility] Comment on above: Result Comment: mL/m in/1.73m2 CKD-EPI Creatinine Equation (2020) Performed By: #### L 501.5200, L501.2300, L100.0100, L501.4700, L500.4050, L300.3900, L501.9520 ####[facility] [address] [place], [address] Globulin (S) [Mass/Vol] 2.5 g/dL Normal 2.2-4.2 [facility] Comment on above: Performed By: #### L 501.5200, L501.2300, L100.0100, L501.4700, L500.4050, L300.3900, L501.9520 ####[facility] [address] [place], [address] Glucose [Mass/Vol] 98 mg/dL Normal 70-99 [facility] Comment on above: Performed By: #### L 501.5200, L501.2300, L100.0100, L501.4700, L500.4050, L300.3900, L501.9520 ####[facility] [address] [place], [address] Potassium [Moles/Vol] 4.2 mmol/L Normal 3.3-5.1 [facility] Comment on above: Result Comment: Hemo lysis present, Results??could be affected.?? Performed By: #### L 501.5200, L501.2300, L100.0100, L501.4700, L500.4050, L300.3900, L501.9520 ####[facility] [address] [place], [address] Sodium [Moles/Vol] 132 mmol/L Low 133-145 [facility] Comment on above: Performed By: #### L 501.5200, L501.2300, L100.0100, L501.4700, L500.4050, L300.3900, L501.9520 ####[facility] [address] [place], [address] T PROT 6.3 g/dL Normal 5.9-8.4 [facility] Comment on above: Performed By: #### L 501.5200, L501.2300, L100.0100, L501.4700, L500.4050, L300.3900, L501.9520 ####[facility] [address] [place], [address] Urea nitrogen [Mass/Vol] 19 mg/dL Normal 4-19 [facility] Comment on above: Performed By: #### L 501.5200, L501.2300, L100.0100, L501.4700, L500.4050, L300.3900, L501.9520 ####[facility] [address] [place], [place], [id number] Consultation - Cardiologyon 12-07-2024 Consultation - Cardiology Normal [facility] Consultation - Orthopedicson 12-07-2024 Consultation - Orthopedics Normal [facility] International normalized rat io (INR) calculationOrdered By: Sandro Jackman on 12-07-2024 INR Coag (Bld) [Relative time] 1.0 {INR} [facility] Laboratory - Chemistry and C hemistry - challengeOrdered By: Sandro Jackman on 12-07-2024 AST [Catalytic activity/Vol] 33 U/L High <32 [facility] Magnesiumon 12-07-2024 Magnesium [Mass/Vol] 2.0 mg/dL Normal 1.5-2.2 [facility] Comment on above: Performed By: #### L 501.5200, L501.2300, L100.0100, L501.4700, L500.4050, L300.3900, L501.9520 ####[facility] [address] [place], [place], [id number] Magnesium (Unsp spec) [Mass/ Vol]Ordered By: Sandro Jackman on 12-07-2024 Magnesium [Mass/Vol] 2.0 mg/dL 1.5-2.2 [facility] Phosphoruson 12-07-2024 Phosphate [Mass/Vol] 4.2 mg/dL Normal 2.7-4.5 [facility] Comment on above: Performed By: #### L 501.5200, L501.2300, L100.0100, L501.4700, L500.4050, L300.3900, L501.9520 ####[facility] [address] [place], [address] Prothrombin Time w/INRon INR Coag (PPP) [Relative time] 1.0 {INR} Normal [facility] Comment on above: Performed By: #### L 501.5200, L501.2300, L100.0100, L501.4700, L500.4050, L300.3900, L501.9520 ####[facility] [address] [place], [address] PT Coag (PPP) [Time] 13.0 s Normal 11.7-14.9 [facility] Comment on above: Performed By: #### L 501.5200, L501.2300, L100.0100, L501.4700, L500.4050, L300.3900, L501.9520 ####[facility] [address] [place], [address] Prothrombin timeOrdered By: Sandro Jackman on 12-07-2024 PT Coag (PPP) [Time] 13.0 s 11.7-14.9 [facility] Serum globulin measurementOr dered By: Sandro Jackman on 12-07-2024 Globulin (S) [Mass/Vol] 2.5 g/dL 2.2-4.2 [facility] Serum or plasma alanine simeon otransferase (ALT) measurementOrdered By: Sandro Jackman on 12-07-2024 ALT [Catalytic activity/Vol] 17 U/L <35 [facility] Serum or plasma albumin cindy urement (mass/volume)Ordered By: Sandro Jackman on 12-07-2024 Albumin [Mass/Vol] 3.9 g/dL 3.4-4.8 [facility] Serum or plasma albumin/glob ulin mass ratioOrdered By: Sandro Jackman on 12-07-2024 Albumin/Globulin [Mass ratio] 1.6 {ratio} 0.9-2.4 [facility] Serum or plasma alkaline avani sphatase measurementOrdered By: Sandro Jackman on 12-07-2024 ALP [Catalytic activity/Vol] 66 U/L 35-104 [facility] Serum phosphorus measurement Ordered By: Sandro Jackman on 12-07-2024 Phosphorus Level 4.2 mg/dL 2.7-4.5 [facility] TSH DL <= 0.005 mIU/L QnOrde red By: Sandro Jackman on 12-07-2024 Thyroid Stimulating Hormone (TSH) 1.180 uIU/mL 0.300-4.200 [facility] Thyroid Stim Hormone (TSH)on 12-07-2024 TSH 1.180 uIU/mL Normal 0.300-4.200 [facility] Comment on above: Performed By: #### L 501.5200, L501.2300, L100.0100, L501.4700, L500.4050, L300.3900, L501.9520 ####[facility] [address] [place], [address] Total proteinOrdered By: Shivani Jackman on 12-07-2024 Protein [Mass/Vol] 6.3 g/dL 5.9-8.4 [facility] 12 Lead EKGon 12-06-2024 12 Lead EKG Normal [facility] Absolute neutrophil countOrd ered By: Rita Nowak on 12-06-2024 Neutrophils (Bld) [#/Vol] 9.9 10*3/uL High 2.0-7.7 [facility] Anion gap in Serum or Plasma Ordered By: Rita Nowak on 12-06-2024 Anion gap [Moles/Vol] 14 mmol/L 02-05 [facility] BUN/creatinine ratioOrdered By: Rita Nowak on 12-06-2024 Urea nitrogen/Creatinine [Mass ratio] 17.1 mg/mg 07-13 [facility] Basic Metabolic Profile (BMP )on 12-06-2024 BUN/CRE 17.1 RATIO Normal 07-13 [facility] Comment on above: Performed By: #### L 500.2500, L100.0100 ####[facility] [address] [place], [address] Calcium [Mass/Vol] 9.5 mg/dL Normal 7.6-11.0 [facility] Comment on above: Performed By: #### L 500.2500, L100.0100 ####[facility] [address] [place], [address] Chloride [Moles/Vol] 97 mmol/L Low 98-108 [facility] Comment on above: Performed By: #### L 500.2500, L100.0100 ####[facility] [address] [place], [address] CO2 [Moles/Vol] 23.1 mmol/L Normal 21.0-32.0 [facility] Comment on above: Performed By: #### L 500.2500, L100.0100 ####[facility] [address] [place], [address] Creatinine [Mass/Vol] 0.96 mg/dL Normal 0.70-1.20 [facility] Comment on above: Performed By: #### L 500.2500, L100.0100 ####[facility] [address] [place], [address] ECRCL 51.06 ml/min Normal 50-250 [facility] Comment on above: Performed By: #### L 500.2500, L100.0100 ####[facility] [address] [place], [address] GAP 14 Normal 5-15 [facility] Comment on above: Performed By: #### L 500.2500, L100.0100 ####[facility] [address] [place], [address] GFR/1.73 sq M.predicted among non-blacks MDRD (S/P/Bld) [Vol rate/Area] 60 mL/min/{1.73_m2} Normal >60 [facility] Comment on above: Result Comment: mL/m in/1.73m2 CKD-EPI Creatinine Equation (2020) Performed By: #### L 500.2500, L100.0100 ####[facility] [address] [place], [address] Glucose [Mass/Vol] 127 mg/dL High 70-99 [facility] Comment on above: Performed By: #### L 500.2500, L100.0100 ####[facility] [address] [place], [address] Potassium [Moles/Vol] 4.3 mmol/L Normal 3.3-5.1 [facility] Comment on above: Performed By: #### L 500.2500, L100.0100 ####[facility] [address] [place], [address] Sodium [Moles/Vol] 134 mmol/L Normal 133-145 [facility] Comment on above: Performed By: #### L 500.2500, L100.0100 ####[facility] [address] [place], [address] Urea nitrogen [Mass/Vol] 16 mg/dL Normal 4-19 [facility] Comment on above: Performed By: #### L 500.2500, L100.0100 ####[facility] [address] [place], [address] Basophil percentageOrdered B y: Rita Magdalenoarchie on 12-06-2024 Basophils/100 WBC (Bld) 0.3 % 0-1 [facility] Brain/Head without Contrasto n 12-06-2024 Brain/Head without Contrast Normal [facility] CBC W/Diff, Automatedon 11-22 Absolute Lymph 0.99 X10 3/uL Normal 0.83-4.51 [facility] Comment on above: Performed By: #### L 500.2500, L100.0100 ####[facility] [address] [place], [address] Absolute Neut 9.9 X10 3/uL High 2.0-7.7 [facility] Comment on above: Performed By: #### L 500.2500, L100.0100 ####[facility] [address] [place], [address] Basophils/100 WBC (Bld) 0.3 % Normal 0-1 [facility] Comment on above: Performed By: #### L 500.2500, L100.0100 ####[facility] [address] [place], [address] Eosinophils/100 WBC (Bld) 1.3 % Normal 0-5 [facility] Comment on above: Performed By: #### L 500.2500, L100.0100 ####[facility] [address] [place], [address] Erythrocyte distribution width (RBC) [Ratio] 12.9 % Normal 11.6-14.6 [facility] Comment on above: Performed By: #### L 500.2500, L100.0100 ####[facility] [address] [place], [address] Hematocrit (Bld) [Volume fraction] 40.5 % Normal 37-47 [facility] Comment on above: Performed By: #### L 500.2500, L100.0100 ####[facility] [address] [place], [address] Hemoglobin (Bld) [Mass/Vol] 13.6 g/dL Normal 12.0-15.0 [facility] Comment on above: Performed By: #### L 500.2500, L100.0100 ####[facility] [address] [place], [address] IG% 0.500 Normal 0.0-0.9 [facility] Comment on above: Result Comment: IG% - Immature Granulocytes (promyelocytes, myelocytes andmetamyelocytes) > 1% indicates that a LEFT SHIFT is Present. Performed By: #### L 500.2500, L100.0100 ####[facility] [address] [place], [address] Lymphocytes/100 WBC (Bld) 8.6 % Low 19-41 [facility] Comment on above: Performed By: #### L 500.2500, L100.0100 ####[facility] [address] [place], [address] MCH (RBC) [Entitic mass] 29.4 pg Normal 27.0-32.0 [facility] Comment on above: Performed By: #### L 500.2500, L100.0100 ####[facility] [address] [place], [address] MCHC (RBC) [Mass/Vol] 33.6 g/dL Normal 32-36 [facility] Comment on above: Performed By: #### L 500.2500, L100.0100 ####[facility] [address] [place], [address] MCV (RBC) [Entitic vol] 87.7 fL Normal 81-99 [facility] Comment on above: Performed By: #### L 500.2500, L100.0100 ####[facility] [address] [place], [address] Monocytes/100 WBC (Bld) 4.0 % Normal 0-10 [facility] Comment on above: Performed By: #### L 500.2500, L100.0100 ####[facility] [address] [place], [address] Neutrophils/100 WBC (Bld) 85.3 % High 47-70 [facility] Comment on above: Performed By: #### L 500.2500, L100.0100 ####[facility] [address] [place], [address] Nucleated RBC (Bld) [#/Vol] 0 10*3/uL Normal 0-5 [facility] Comment on above: Performed By: #### L 500.2500, L100.0100 ####[facility] [address] [place], [address] Platelet mean volume (Bld) [Entitic vol] 9.2 fL Normal 6.2-12.0 [facility] Comment on above: Performed By: #### L 500.2500, L100.0100 ####[facility] [address] [place], [address] Platelets (Bld) [#/Vol] 279 10*3/uL Normal 150-450 [facility] Comment on above: Performed By: #### L 500.2500, L100.0100 ####[facility] [address] [place], [address] RBC (Bld) [#/Vol] 4.62 10*6/uL Normal 4.2-5.4 [facility] Comment on above: Performed By: #### L 500.2500, L100.0100 ####[facility] [address] [place], [address] RDW SD 41.1 fl Normal 35.1-43.9 [facility] Comment on above: Performed By: #### L 500.2500, L100.0100 ####[facility] [address] [place], [address] WBC (Bld) [#/Vol] 11.6 10*3/uL High 4.4-11.0 [facility] Comment on above: Performed By: #### L 500.2500, L100.0100 ####[facility] [address] [place], [address] Carbon dioxide, total [Moles /volume] in Central venous bloodOrdered By: Rita Nowak on 12-06-2024 CO2 [Moles/Vol] 23.1 mmol/L 21.0-32.0 [facility] Chest 1 View (Portable)on Chest 1 View (Portable) Normal [facility] Chloride assayOrdered By: Roselyn Nowak on 12-06-2024 Chloride [Moles/Vol] 97 mmol/L Low 98-108 [facility] Emergency Department Summary on 12-06-2024 Emergency Department Summary Normal [facility] Eosinophil percentageOrdered By: Rita Nowak on 12-06-2024 Eosinophils/100 WBC (Bld) 1.3 % 0-5 [facility] Erythrocyte distribution wid th ratioOrdered By: Rita Nowak on 12-06-2024 Erythrocyte distribution width (RBC) [Ratio] 12.9 % 11.6-14.6 [facility] Erythrocyte distribution wid th standard deviationOrdered By: Rita Nowak on 12-06-2024 Erythrocyte distribution width (RBC) [Entitic vol] 41.1 fL 35.1-43.9 [facility] Estimation of creatinine clemencia aranceOrdered By: Rita Nowak on 12-06-2024 Estimated Creatinine Clearance Calc 51.06 ml/min 50-250 [facility] GFR/1.73 sq M.predicted stephen g non-blacks MDRD (S/P/Bld) [Vol rate/Area]Ordered By: Rita Nowak on 12-06-2024 Estimated GFR (MDRD) Non-Af Amer 60 >60 [facility] Comment on above: mL/min/1.73m2 CKD-EP I Creatinine Equation (2020) H AND P Exam - Hospitaliston 12-06-2024 H&P Exam - Hospitalist Normal [facility] Hematocrit Auto (Bld) [Volum e fraction]Ordered By: Rita Nowak on 12-06-2024 Hematocrit (Bld) [Volume fraction] 40.5 % 37-47 [facility] Hemoglobin measurementOrdere d By: Rita Nowak on 12-06-2024 Hemoglobin (Bld) [Mass/Vol] 13.6 g/dL 12.0-15.0 [facility] Immature granulocytes/100 WB C Auto (Bld)Ordered By: Rita Nowak on 12-06-2024 Immature granulocytes/100 WBC (Bld) 0.500 % 0.0-0.9 [facility] Comment on above: IG% - Immature Granu locytes (promyelocytes, myelocytes and metamyelocytes) > 1% indicates that a LEFT SHIFT is Present. Knee 1 or 2 Viewson 12-07-19 25 Knee 1 or 2 Views Normal [facility] L499.0042on 12-06-2024 Trop T High Sen 184 ng/L Invalid Interpretation Code <=14 [facility] Comment on above: Result Comment: Crit ical Result(s) Called at 12/06/2024-21:15 by Ga Chamberlain??Results read back by same. Performed By: #### L 499.0042 ####[facility] [address] [place], [address] Trop T High Sen 178 ng/L Invalid Interpretation Code <=14 [facility] Comment on above: Result Comment: Crit ical Result(s) Called at 12/06/2024-20:01 by Ga Ortiz??Results read back by same. Performed By: #### L 499.0042 ####[facility] [address] [place], [address] L499.0043on 12-06-2024 Trop T High Sen Normal <=14 [facility] Comment on above: Result Comment: Canc elled via OM: Ordered Performed By: #### L 499.0043 ####[facility] [address] [place], [address] Trop T High Sen Normal <=14 [facility] Comment on above: Result Comment: OKAY TO CANCEL PER WALLY VEGA PCU CHARGE Performed By: #### L 499.0043 ####[facility] [address] [place], [address] L501.4021on 12-06-2024 Trop T High Sen 108 ng/L Invalid Interpretation Code <=14 [facility] Comment on above: Result Comment: Crit ical Result(s) Called at 12/06/2024-17:35 by Ga Pena??Results read back by same. Performed By: #### L 501.4021 ####[facility] [address] [place], [address] Lymphocytes Auto (Unsp spec) [#/Vol]Ordered By: Rita Nowak on 12-06-2024 Lymphocytes (Bld) [#/Vol] 0.99 10*3/uL 0.83-4.51 [facility] Lymphocytes/100 WBC Auto (Un sp spec)Ordered By: Rita Nowak on 12-06-2024 Lymphocytes/100 WBC (Bld) 8.6 % Low 19-41 [facility] MCV (mean corpuscular volume ) determinationOrdered By: Rita Nowak on 12-06-2024 MCV (RBC) [Entitic vol] 87.7 fL 81-99 [facility] Mean corpuscular hemoglobin (MCH) determinationOrdered By: Rita Nowak on 12-06-2024 MCH (RBC) [Entitic mass] 29.4 pg 27.0-32.0 [facility] Mean corpuscular hemoglobin concentration (MCHC) determinationOrdered By: Rita Nowak on 12-06-2024 MCHC (RBC) [Mass/Vol] 33.6 g/dL 32-36 [facility] Mean platelet volume determi nationOrdered By: Rita Nowak on 12-06-2024 Platelet mean volume (Bld) [Entitic vol] 9.2 fL 6.2-12.0 [facility] Monocyte percentageOrdered B y: Rita Nowak on 12-06-2024 Monocytes/100 WBC (Bld) 4.0 % 0-10 [facility] Neutrophil percentageOrdered By: Rita Nowak on 12-06-2024 Neutrophils/100 WBC (Bld) 85.3 % High 47-70 [facility] No Panel InformationOrdered By: Rita Nowak on 12-06-2024 Troponin T High Sensitivity 108 ng/L High <14 [facility] Comment on above: Critical Result(s) C alled at 12/06/2024-17:35 by Ga Pate to Nabila Pena Results read back by same. Nucleated red blood cell per centageOrdered By: Rita Nowak on 12-06-2024 Nucleated RBC/100 WBC (Bld) [Ratio] 0 % 0-5 [facility] Platelet countOrdered By: Roselyn Nowak on 12-06-2024 Platelets (Bld) [#/Vol] 279 10*3/uL 150-450 [facility] Potassium (Unsp spec) [Mass/ Vol]Ordered By: Rita Nowak on 12-06-2024 Potassium [Moles/Vol] 4.3 mmol/L 3.3-5.1 [facility] RBC Auto (Bld) [#/Vol]Ordere d By: Rita Nowak on 12-06-2024 RBC (Bld) [#/Vol] 4.62 10*6/uL 4.2-5.4 [facility] Serum creatinine measurement (mass/volume)Ordered By: Rita Nowak on 12-06-2024 Creatinine [Mass/Vol] 0.96 mg/dL 0.70-1.20 [facility] Serum glucose measurement (m ass/volume)Ordered By: Rita Nowak on 12-06-2024 Glucose [Mass/Vol] 127 mg/dL High 70-99 [facility] Serum or plasma calcium cindy urement (mass/volume)Ordered By: Rita Nowak on 12-06-2024 Calcium [Mass/Vol] 9.5 mg/dL 7.6-11.0 [facility] Serum or plasma urea nitroge n measurement (mass/volume)Ordered By: Rita Nowak on 12-06-2024 Urea nitrogen [Mass/Vol] 16 mg/dL 4-19 [facility] Sinus/Facial Boneon 12-07-19 25 Sinus/Facial Bone Normal [facility] Sodium levelOrdered By: Rita Nowak on 12-06-2024 Sodium [Moles/Vol] 134 mmol/L 133-145 [facility] Spine Cervical without Contr ason 12-06-2024 Spine Cervical without Contras Normal [facility] Troponin T.cardiac High sens itivity method [Mass/Vol]Ordered By: Rita Nowak on 12-06-2024 Troponin T High Sensitivity 2 Hour 184 ng/L High <14 [facility] Comment on above: Critical Result(s) C alled at 12/06/2024-21:15 by Ga Pate to Sunni Chamberlain Results read back by same. White blood cell (WBC) count Ordered By: Rita Nowak on 12-06-2024 WBC (Bld) [#/Vol] 11.6 10*3/uL High 4.4-11.0 [facility] Cardiology Visit Reporton Cardiology Visit Report Normal [facility] .Auto Diffon 10-29-2024 Basophil, Absolute 0.0 10 3/mcL Normal 0.0-0.2 [facility] Comment on above: Performed By: #### T SHR, CBC, CMP, ADIFF, GFR, ANEU, FT4 #### [address] [address] Basophils/100 WBC (Bld) 0.6 % Normal 0.0-2.5 [facility] Comment on above: Performed By: #### T SHR, CBC, CMP, ADIFF, GFR, ANEU, FT4 #### [address] [address] Eosinophil, Absolute 0.2 10 3/mcL Normal 0.0-0.7 [facility] Comment on above: Performed By: #### T SHR, CBC, CMP, ADIFF, GFR, ANEU, FT4 #### [address] [address] Eosinophils/100 WBC (Bld) 2.6 % Normal 0.0-7.0 [facility] Comment on above: Performed By: #### T SHR, CBC, CMP, ADIFF, GFR, ANEU, FT4 #### [address] [address] Lymphocyte, Absolute 1.3 10 3/mcL Normal 0.9-4.3 [facility] Comment on above: Performed By: #### T SHR, CBC, CMP, ADIFF, GFR, ANEU, FT4 #### [address] [address] Lymphocytes/100 WBC (Bld) 21.2 % Normal 20.0-40.0 [facility] Comment on above: Performed By: #### T SHR, CBC, CMP, ADIFF, GFR, ANEU, FT4 #### [address] [address] Monocyte, Absolute 0.5 10 3/mcL Normal 0.1-1.4 [facility] Comment on above: Performed By: #### T SHR, CBC, CMP, ADIFF, GFR, ANEU, FT4 #### [address] [address] Monocytes/100 WBC (Bld) 7.5 % Normal 2.0-13.0 [facility] Comment on above: Performed By: #### T SHR, CBC, CMP, ADIFF, GFR, ANEU, FT4 #### [address] [address] Neutrophils/100 WBC (Bld) 68.1 % Normal 50.0-75.0 [facility] Comment on above: Performed By: #### T SHR, CBC, CMP, ADIFF, GFR, ANEU, FT4 #### [address] [address] .GFRon 10-29-2024 Estimated Glomerular Filtration Rate 53 ml/min/1.73sqm Normal [facility] Comment on above: Result Comment: Stages [...] V IDH, LIPID, CMP, GFR, TSH #### [address] [address] #### B12 #### [address] [address] .NEUABSon 10-29-2024 Neutrophil, Absolute 4.3 10 3/mcL Normal 2.3-8.1 [facility] Comment on above: Performed By: #### T SHR, CBC, CMP, ADIFF, GFR, ANEU, FT4 #### [address] [address] CBCon 10-29-2024 Erythrocyte distribution width (RBC) [Ratio] 13.8 % Normal 11.5-15.5 [facility] Comment on above: Performed By: #### T SHR, CBC, CMP, ADIFF, GFR, ANEU, FT4 #### [place] [address] Hematocrit (Bld) [Volume fraction] 41.6 % Normal 34.0-46.0 [facility] Comment on above: Performed By: #### T SHR, CBC, CMP, ADIFF, GFR, ANEU, FT4 #### [place] [address] Hgb 13.8 G/dL Normal 12.0-16.0 [facility] Comment on above: Performed By: #### T SHR, CBC, CMP, ADIFF, GFR, ANEU, FT4 #### [place] [address] MCH (RBC) [Entitic mass] 29.1 pg Normal 27.0-33.0 [facility] Comment on above: Performed By: #### T SHR, CBC, CMP, ADIFF, GFR, ANEU, FT4 #### [address] [address] MCHC 33.3 G/dL Normal 32.0-36.0 [facility] Comment on above: Performed By: #### T SHR, CBC, CMP, ADIFF, GFR, ANEU, FT4 #### [place] [address] MCV (RBC) [Entitic vol] 87.3 fL Normal 80.0-99.0 [facility] Comment on above: Performed By: #### T SHR, CBC, CMP, ADIFF, GFR, ANEU, FT4 #### [address] [address] Platelet 283 10 3/mcL Normal 150-450 [facility] Comment on above: Performed By: #### T SHR, CBC, CMP, ADIFF, GFR, ANEU, FT4 #### [address] [address] Platelet mean volume (Bld) [Entitic vol] 7.6 fL Normal 6.6-10.5 [facility] Comment on above: Performed By: #### T SHR, CBC, CMP, ADIFF, GFR, ANEU, FT4 #### [place] [address] RBC 4.76 10 6/mcL Normal 4.10-5.30 [facility] Comment on above: Performed By: #### T SHR, CBC, CMP, ADIFF, GFR, ANEU, FT4 #### [place] [address] WBC 6.3 10 3/mcL Normal 4.5-10.8 [facility] Comment on above: Performed By: #### T SHR, CBC, CMP, ADIFF, GFR, ANEU, FT4 #### [place] [address] CMPon 10-29-2024 Albumin Level 4.5 G/dL Normal 3.4-4.8 [facility] Comment on above: Performed By: #### V IDH, LIPID, CMP, GFR, TSH #### [place] [address] #### B12 #### [address] [address] Albumin/Globulin [Mass ratio] 1.5 {ratio} Normal 1.1-2.5 [facility] Comment on above: Performed By: #### V IDH, LIPID, CMP, GFR, TSH #### [place] [address] #### B12 #### [address] [address] ALP [Catalytic activity/Vol] 81 U/L Normal 40-135 [facility] Comment on above: Performed By: #### V IDH, LIPID, CMP, GFR, TSH #### [place] [address] #### B12 #### [address] [address] ALT [Catalytic activity/Vol] 22 U/L Normal 14-59 [facility] Comment on above: Performed By: #### V IDH, LIPID, CMP, GFR, TSH #### [address] [address] #### B12 #### [address] [address] AST [Catalytic activity/Vol] 21 U/L Normal 10-40 [facility] Comment on above: Performed By: #### V IDH, LIPID, CMP, GFR, TSH #### [place] [address] #### B12 #### [place] [address] Bili Total 0.5 mg/dL Normal 0.2-1.0 [facility] Comment on above: Result Comment: Use of this assay is not recommended for patients undergoing treatment with eltrombopag due to the potential for falsely elevated results. Performed By: #### V IDH, LIPID, CMP, GFR, TSH #### [place] [address] #### B12 #### [place] [address] BUN/Creatinine Ratio 15 ratio Normal 7-27 [facility] Comment on above: Performed By: #### V IDH, LIPID, CMP, GFR, TSH #### [place] [address] #### B12 #### [place] [address] Calcium [Mass/Vol] 10.2 mg/dL Normal 8.4-10.2 [facility] Comment on above: Performed By: #### V IDH, LIPID, CMP, GFR, TSH #### [place] [address] #### B12 #### [place] [address] Chloride [Moles/Vol] 100 mmol/L Normal 98-107 [facility] Comment on above: Performed By: #### V IDH, LIPID, CMP, GFR, TSH #### [place] [address] #### B12 #### [address] [address] CO2 [Moles/Vol] 31 mmol/L Normal 23-31 [facility] Comment on above: Performed By: #### V IDH, LIPID, CMP, GFR, TSH #### [place] [address] #### B12 #### [address] [address] Creatinine [Mass/Vol] 1.06 mg/dL High 0.55-1.02 [facility] Comment on above: Result Comment: Test ing performed on Siemens Dimension EXL analyzer using a modified kinetic Jana technique. Performed By: #### V IDH, LIPID, CMP, GFR, TSH #### [place] [address] #### B12 #### [address] [address] Electrolyte Balance 6.0 mEq/L Normal 4.0-15.0 [facility] Comment on above: Performed By: #### V IDH, LIPID, CMP, GFR, TSH #### [place] [address] #### B12 #### [address] [address] Globulin 3.0 G/dL Normal 1.5-3.8 [facility] Comment on above: Performed By: #### V IDH, LIPID, CMP, GFR, TSH #### [place] [address] #### B12 #### [address] [address] Glucose [Mass/Vol] 93 mg/dL Normal 83-110 [facility] Comment on above: Performed By: #### V IDH, LIPID, CMP, GFR, TSH #### [address] [address] #### B12 #### [address] [address] Potassium [Moles/Vol] 4.9 mmol/L Normal 3.5-5.1 [facility] Comment on above: Performed By: #### V IDH, LIPID, CMP, GFR, TSH #### [place] [address] #### B12 #### [address] [address] Sodium [Moles/Vol] 137 mmol/L Normal 136-145 [facility] Comment on above: Performed By: #### V IDH, LIPID, CMP, GFR, TSH #### [place] [address] #### B12 #### [place] [address] Total Protein 7.5 G/dL Normal 6.4-8.2 [facility] Comment on above: Performed By: #### V IDH, LIPID, CMP, GFR, TSH #### [place] [address] #### B12 #### [address] [address] Urea nitrogen [Mass/Vol] 16 mg/dL Normal 7-18 [facility] Comment on above: Performed By: #### V IDH, LIPID, CMP, GFR, TSH #### [place] [address] #### B12 #### [address] [address] FT4on 10-29-2024 Free T4 [Mass/Vol] 1.25 ng/dL Normal 0.76-1.46 [facility] Comment on above: Order Comment: Order ed by Discern Performed By: #### V IDH, LIPID, CMP, GFR, TSH #### [place] [address] #### B12 #### [address] [address] LABORATORYOrdered By: SYSTEM SYSTEM on 10-29-2024 Albumin [...] 10-29-2024 TSH Qn 0.18 m[IU]/L Low 0.36-3.74 [facility] Comment on above: Performed By: #### V IDH, LIPID, CMP, GFR, TSH #### [facility] [address] [place], [place] [address] #### B12 #### [facility] [address] [place] [address] Cardiology Visit Reporton Cardiology Visit Report Normal [facility] BD BONE DENSITY DEXA AXIAL S [facility] 08-25-2024 BD BONE DENSITY DEXA AXIAL SKELETON [...] 08/25/2024 3:40:14 PM Ordering Provider: ARGELIA DARBY [facility] .GFRon 07-31-2024 GFR 65 ml/min/1.73sqm [facility] Comment on above: Result Comment: GFR Population [...] V IDH, LIPID, CMP, GFR, TSH #### [address] [address] #### B12 #### [address] [address] GFR Non- 53 ml/min/1.73sqm Normal [facility] Comment on above: Result Comment: GFR [...] V IDH, LIPID, CMP, GFR, TSH #### [address] [address] #### B12 #### [address] [address] B12on 07-31-2024 Cobalamin (Vitamin B12) [Mass/Vol] 431 pg/mL Normal 211-911 [facility] Comment on above: Performed By: #### V IDH, LIPID, CMP, GFR, TSH #### [address] [address] #### B12 #### [address] [address] CMPon 07-31-2024 Albumin Level 4.1 G/dL Normal 3.4-4.8 [facility] Comment on above: Performed By: #### V IDH, LIPID, CMP, GFR, TSH #### [address] [address] #### B12 #### [address] [address] Albumin/Globulin [Mass ratio] 1.5 {ratio} Normal 1.1-2.5 [facility] Comment on above: Performed By: #### V IDH, LIPID, CMP, GFR, TSH #### [place] [address] #### B12 #### [address] [address] ALP [Catalytic activity/Vol] 98 U/L Normal 40-135 [facility] Comment on above: Performed By: #### V IDH, LIPID, CMP, GFR, TSH #### [place] [address] #### B12 #### [place] [address] ALT [Catalytic activity/Vol] 26 U/L Normal 14-59 [facility] Comment on above: Performed By: #### V IDH, LIPID, CMP, GFR, TSH #### [place] [address] #### B12 #### [address] [address] AST [Catalytic activity/Vol] 18 U/L Normal 10-40 [facility] Comment on above: Performed By: #### V IDH, LIPID, CMP, GFR, TSH #### [place] [address] #### B12 #### [address] [address] Bili Total 0.4 mg/dL Normal 0.2-1.0 [facility] Comment on above: Result Comment: Use of this assay is not recommended for patients undergoing treatment with eltrombopag due to the potential for falsely elevated results. Performed By: #### V IDH, LIPID, CMP, GFR, TSH #### [place] [address] #### B12 #### [address] [address] BUN/Creatinine Ratio 21 ratio Normal 7-27 [facility] Comment on above: Performed By: #### V IDH, LIPID, CMP, GFR, TSH #### [address] [address] #### B12 #### [address] [address] Calcium [Mass/Vol] 9.6 mg/dL Normal 8.4-10.2 [facility] Comment on above: Performed By: #### V IDH, LIPID, CMP, GFR, TSH #### [place] [address] #### B12 #### [address] [address] Chloride [Moles/Vol] 101 mmol/L Normal 98-107 [facility] Comment on above: Performed By: #### V IDH, LIPID, CMP, GFR, TSH #### [place] [address] #### B12 #### [address] [address] CO2 [Moles/Vol] 29 mmol/L Normal 23-31 [facility] Comment on above: Performed By: #### V IDH, LIPID, CMP, GFR, TSH #### [place] [address] #### B12 #### [address] [address] Creatinine [Mass/Vol] 1.00 mg/dL Normal 0.55-1.02 [facility] Comment on above: Result Comment: Test ing performed on Siemens Dimension EXL analyzer using a modified kinetic Jana technique. Performed By: #### V IDH, LIPID, CMP, GFR, TSH #### [place] [address] #### B12 #### [address] [address] Electrolyte Balance 6.0 mEq/L Normal 4.0-15.0 [facility] Comment on above: Performed By: #### V IDH, LIPID, CMP, GFR, TSH #### [address] [address] #### B12 #### [address] [address] Globulin 2.8 G/dL Normal [facility] Comment on above: Performed By: #### V IDH, LIPID, CMP, GFR, TSH #### [address] [address] #### B12 #### [address] [address] Glucose [Mass/Vol] 107 mg/dL Normal 83-110 [facility] Comment on above: Performed By: #### V IDH, LIPID, CMP, GFR, TSH #### [place] [address] #### B12 #### [address] [address] Potassium [Moles/Vol] 4.9 mmol/L Normal 3.5-5.1 [facility] Comment on above: Performed By: #### V IDH, LIPID, CMP, GFR, TSH #### [address] [address] #### B12 #### [address] [address] Sodium [Moles/Vol] 136 mmol/L Normal 136-145 [facility] Comment on above: Performed By: #### V IDH, LIPID, CMP, GFR, TSH #### [address] [address] #### B12 #### [address] [address] Total Protein 6.9 G/dL Normal 6.4-8.2 [facility] Comment on above: Performed By: #### V IDH, LIPID, CMP, GFR, TSH #### [place] [address] #### B12 #### [place] [id number] [place] [address] Urea nitrogen [Mass/Vol] 21 mg/dL High 7-18 [facility] Comment on above: Performed By: #### V IDH, LIPID, CMP, GFR, TSH #### [facility] [address] [place], [place] [address] #### B12 #### [facility] [address] [place] [address] LABORATORYOrdered By: SYSTEM SYSTEM on 07-31-2024 25-hydroxyvitamin [...] 07-31-2024 Cholesterol [Mass/Vol] 156 mg/dL Normal 0-200 [facility] Comment on above: Result Comment: Chol esterol Reference Interval: Less than 200 Desirable 200-239 Borderline high risk 240 and above High risk Performed By: #### V IDH, LIPID, CMP, GFR, TSH #### [address] [address] #### B12 #### [address] [address] Cholesterol in HDL [Mass/Vol] 84 mg/dL High 40-60 [facility] Comment on above: Performed By: #### V IDH, LIPID, CMP, GFR, TSH #### [address] [address] #### B12 #### [address] [address] Cholesterol in LDL [Mass/Vol] 64 mg/dL Normal 0-130 [facility] Comment on above: Performed By: #### V IDH, LIPID, CMP, GFR, TSH #### [address] [address] #### B12 #### [place] [address] Triglyceride [Mass/Vol] 41 mg/dL Normal 0-150 [facility] Comment on above: Result Comment: Trig lyceride Reference Interval: Less than 150 Normal 150-199 Borderline high risk 200-499 High risk 500 or higher Very high risk Performed By: #### V IDH, LIPID, CMP, GFR, TSH #### [address] [address] #### B12 #### [place] [address] TSHon 07-31-2024 TSH Qn 0.49 m[IU]/L Normal 0.36-3.74 [facility] Comment on above: Performed By: #### V IDH, LIPID, CMP, GFR, TSH #### [place] [address] #### B12 #### [place] [address] VIDHon 07-31-2024 Vit. D 25-Hydroxy 47.8 ng/mL Normal [facility] Comment on above: Result Comment: Inte rpretive Values Based on Total 25(OH) Vitamin D: Deficient <20 ng/mL Insufficient 20 - <30 ng/mL Sufficient 30-100 ng/mL Performed By: #### V IDH, LIPID, CMP, GFR, TSH #### [address] [address] #### B12 #### [place] [address] LABORATORYOrdered By: SYSTEM SYSTEM on 05-23-2024 Natriuretic peptide.B prohormone N-Terminal [Mass/Vol] 425 pg/mL Normal 0 - 450 pg/mL AO ADM SS Comment on above: Interpretive Data: N T-proBNP results of less than 300 pg/mL effectively rules out acute congestive heart failure with 99% negative predictive value. PBNPon 05-23-2024 Natriuretic peptide B (Bld) [Mass/Vol] 425 pg/mL Normal 0-450 [facility] ([place]) Comment on above: Result Comment: NT-p roBNP results of less than 300 pg/mL effectively rules out acute congestive heart failure with 99% negative predictive value. Performed By: #### C BC, MG, GFR, ANEU, MDW, ADIFF, DIMER, TROPHS, LIP, CMP #### [address] [address] .Auto Diffon 05-15-2024 Basophil, Absolute 0.0 10 3/mcL Normal 0.0-0.2 [facility] ([place]) Comment on above: Performed By: #### C BC, MG, GFR, ANEU, MDW, ADIFF, DIMER, TROPHS, LIP, CMP #### [address] [address] Basophils/100 WBC (Bld) 0.6 % Normal 0.0-2.5 [facility] ([place]) Comment on above: Performed By: #### C BC, MG, GFR, ANEU, MDW, ADIFF, DIMER, TROPHS, LIP, CMP #### [address] [address] Eosinophil, Absolute 0.4 10 3/mcL Normal 0.0-0.4 [facility] ([place] Comment on above: Performed By: #### C BC, MG, GFR, ANEU, MDW, ADIFF, DIMER, TROPHS, LIP, CMP #### [address] [address] Eosinophils/100 WBC (Bld) 8.1 % High 0.0-7.0 [facility] ([place] Comment on above: Performed By: #### C BC, MG, GFR, ANEU, MDW, ADIFF, DIMER, TROPHS, LIP, CMP #### [address] [address] Lymphocyte, Absolute 1.1 10 3/mcL Normal 0.8-3.9 [facility] ([place] Comment on above: Performed By: #### C BC, MG, GFR, ANEU, MDW, ADIFF, DIMER, TROPHS, LIP, CMP #### [address] [address] Lymphocytes/100 WBC (Bld) 21.0 % Normal 10.0-50.0 [facility] ([place] Comment on above: Performed By: #### C BC, MG, GFR, ANEU, MDW, ADIFF, DIMER, TROPHS, LIP, CMP #### [address] [address] Monocyte, Absolute 0.5 10 3/mcL Normal 0.2-1.0 [facility] ([place]) Comment on above: Performed By: #### C BC, MG, GFR, ANEU, MDW, ADIFF, DIMER, TROPHS, LIP, CMP #### [address] [address] Monocytes/100 WBC (Bld) 9.5 % Normal 1.7-13.0 [facility] ([place]) Comment on above: Performed By: #### C BC, MG, GFR, ANEU, MDW, ADIFF, DIMER, TROPHS, LIP, CMP #### [address] [address] Neutrophils/100 WBC (Bld) 60.8 % Normal 37.0-80.0 [facility] ([place] Comment on above: Performed By: #### C BC, MG, GFR, ANEU, MDW, ADIFF, DIMER, TROPHS, LIP, CMP #### [address] [address] .GFRon 05-15-2024 GFR 62 ml/min/1.73sqm Normal [facility] ([place]) Comment on above: Result Comment: GFR Population [...] MDW, ADIFF, DIMER, TROPHS, LIP, CMP #### [address] [address] GFR Non- 51 ml/min/1.73sqm Normal [facility] ([place]) Comment on above: Result Comment: GFR Population [...] MDW, ADIFF, DIMER, TROPHS, LIP, CMP #### [address] [address] .NEUABSon 05-15-2024 Neutrophil, Absolute 3.3 10 3/mcL Normal 2.9-6.2 [facility] ([place] Comment on above: Performed By: #### C BC, MG, GFR, ANEU, MDW, ADIFF, DIMER, TROPHS, LIP, CMP #### [address] [address] CBCon 05-15-2024 Erythrocyte distribution width (RBC) [Ratio] 12.8 % Normal 11.5-14.5 [facility] ([place] Comment on above: Performed By: #### C BC, MG, GFR, ANEU, MDW, ADIFF, DIMER, TROPHS, LIP, CMP #### [place] [address] Hematocrit (Bld) [Volume fraction] 40.5 % Normal 37.0-47.0 [facility] ([place] Comment on above: Performed By: #### C BC, MG, GFR, ANEU, MDW, ADIFF, DIMER, TROPHS, LIP, CMP #### [place] [address] Hgb 13.6 G/dL Normal 12.0-16.0 [facility] ([place]) Comment on above: Performed By: #### C BC, MG, GFR, ANEU, MDW, ADIFF, DIMER, TROPHS, LIP, CMP #### [place] [address] MCH (RBC) [Entitic mass] 29.9 pg Normal 27.0-31.2 [facility] ([place] Comment on above: Performed By: #### C BC, MG, GFR, ANEU, MDW, ADIFF, DIMER, TROPHS, LIP, CMP #### [place] [address] MCHC 33.7 G/dL Normal 33.0-37.0 [facility] ([place] Comment on above: Performed By: #### C BC, MG, GFR, ANEU, MDW, ADIFF, DIMER, TROPHS, LIP, CMP #### [place] [address] MCV (RBC) [Entitic vol] 88.8 fL Normal 80.0-94.0 [facility] ([place] Comment on above: Performed By: #### C BC, MG, GFR, ANEU, MDW, ADIFF, DIMER, TROPHS, LIP, CMP #### [place] [address] Platelet 267 10 3/mcL Normal 130-400 [facility] ([place]) Comment on above: Performed By: #### C BC, MG, GFR, ANEU, MDW, ADIFF, DIMER, TROPHS, LIP, CMP #### [place] [id number] Platelet mean volume (Bld) [Entitic vol] 7.7 fL Normal 7.4-10.4 [facility] ([place] Comment on above: Performed By: #### C BC, MG, GFR, ANEU, MDW, ADIFF, DIMER, TROPHS, LIP, CMP #### [address] [address] RBC 4.56 10 6/mcL Normal 4.20-5.40 [facility] ([place] Comment on above: Performed By: #### C BC, MG, GFR, ANEU, MDW, ADIFF, DIMER, TROPHS, LIP, CMP #### [place] [id number] WBC 5.4 10 3/mcL Normal 4.6-10.8 [facility] ([place] Comment on above: Performed By: #### C BC, MG, GFR, ANEU, MDW, ADIFF, DIMER, TROPHS, LIP, CMP #### [place] [phone] CMPon 05-15-2024 Albumin Level 4.1 G/dL Normal 3.4-4.8 [facility] ([place] Comment on above: Performed By: #### C BC, MG, GFR, ANEU, MDW, ADIFF, DIMER, TROPHS, LIP, CMP #### [address] [address] Albumin/Globulin [Mass ratio] 1.5 {ratio} Normal 1.1-2.5 [facility] ([place] Comment on above: Performed By: #### C BC, MG, GFR, ANEU, MDW, ADIFF, DIMER, TROPHS, LIP, CMP #### [address] [address] ALP [Catalytic activity/Vol] 78 U/L Normal 40-135 [facility] ([place]) Comment on above: Performed By: #### C BC, MG, GFR, ANEU, MDW, ADIFF, DIMER, TROPHS, LIP, CMP #### [facility] [place] [address] [place], [place] [address] ALT [Catalytic activity/Vol] 26 U/L Normal 14-59 [facility] ([place] Comment on above: Performed By: #### C BC, MG, GFR, ANEU, MDW, ADIFF, DIMER, TROPHS, LIP, CMP #### [address] [address] AST [Catalytic activity/Vol] 19 U/L Normal 10-40 [facility] ([place] Comment on above: Performed By: #### C BC, MG, GFR, ANEU, MDW, ADIFF, DIMER, TROPHS, LIP, CMP #### [address] [address] Bili Total 0.6 mg/dL Normal 0.2-1.0 [facility] ([place]) Comment on above: Result Comment: Use of this assay is not recommended for patients undergoing treatment with eltrombopag due to the potential for falsely elevated results. Performed By: #### C BC, MG, GFR, ANEU, MDW, ADIFF, DIMER, TROPHS, LIP, CMP #### [address] [address] BUN/Creatinine Ratio 13 ratio Normal 7-27 [facility] ([place]) Comment on above: Performed By: #### C BC, MG, GFR, ANEU, MDW, ADIFF, DIMER, TROPHS, LIP, CMP #### [address] [address] Calcium [Mass/Vol] 9.7 mg/dL Normal 8.4-10.2 [facility] ([place]) Comment on above: Performed By: #### C BC, MG, GFR, ANEU, MDW, ADIFF, DIMER, TROPHS, LIP, CMP #### [address] [address] Chloride [Moles/Vol] 99 mmol/L Normal 98-107 [facility] ([place] Comment on above: Performed By: #### C BC, MG, GFR, ANEU, MDW, ADIFF, DIMER, TROPHS, LIP, CMP #### [address] [address] CO2 [Moles/Vol] 32 mmol/L High 23-31 [facility] ([place] Comment on above: Performed By: #### C BC, MG, GFR, ANEU, MDW, ADIFF, DIMER, TROPHS, LIP, CMP #### [address] [address] Creatinine [Mass/Vol] 1.04 mg/dL High 0.55-1.02 [facility] ([place]) Comment on above: Performed By: #### C BC, MG, GFR, ANEU, MDW, ADIFF, DIMER, TROPHS, LIP, CMP #### [address] [address] Electrolyte Balance 5.0 mEq/L Normal 4.0-15.0 [facility] ([place]) Comment on above: Performed By: #### C BC, MG, GFR, ANEU, MDW, ADIFF, DIMER, TROPHS, LIP, CMP #### [address] [address] Globulin 2.8 G/dL Normal [facility] ([place]) Comment on above: Performed By: #### C BC, MG, GFR, ANEU, MDW, ADIFF, DIMER, TROPHS, LIP, CMP #### [address] [address] Glucose [Mass/Vol] 87 mg/dL Normal 83-110 [facility] ([place]) Comment on above: Performed By: #### C BC, MG, GFR, ANEU, MDW, ADIFF, DIMER, TROPHS, LIP, CMP #### [address] [address] Potassium [Moles/Vol] 4.6 mmol/L Normal 3.5-5.1 [facility] ([place]) Comment on above: Performed By: #### C BC, MG, GFR, ANEU, MDW, ADIFF, DIMER, TROPHS, LIP, CMP #### [address] [address] Sodium [Moles/Vol] 136 mmol/L Normal 136-145 [facility] ([place]) Comment on above: Performed By: #### C BC, MG, GFR, ANEU, MDW, ADIFF, DIMER, TROPHS, LIP, CMP #### [address] [address] Total Protein 6.9 G/dL Normal 6.4-8.2 [facility] ([place]) Comment on above: Performed By: #### C BC, MG, GFR, ANEU, MDW, ADIFF, DIMER, TROPHS, LIP, CMP #### [address] [address] Urea nitrogen [Mass/Vol] 14 mg/dL Normal 7-18 [facility] ([place]) Comment on above: Performed By: #### C BC, MG, GFR, ANEU, MDW, ADIFF, DIMER, TROPHS, LIP, CMP #### [address] [address] [address] ANGIOGRAPHY HEAD W/ CONTR Cassie 05-15-2024 [...] Date: 05/15/2024 9:48:09 AM Ordering Provider: ARGELIA DARBY [facility] ([place]) [place] ANGIOGRAPHY NECK W/CONTRA Ronaldo 05-15-2024 CT ANGIOGRAPHY NECK W/CONTRAST ORIGINAL EXAMINATION: [...] Date: 05/15/2024 9:55:06 AM Ordering Provider: ARGELIA DARBY Normal [facility] ([place]) FT3on 05-15-2024 Free T3 [Mass/Vol] 2.69 pg/mL Normal 2.30-4.00 [facility] ([place]) Comment on above: Performed By: #### C BC, MG, GFR, ANEU, MDW, ADIFF, DIMER, TROPHS, LIP, CMP #### [place] [id number] FT4on 05-15-2024 Free T4 [Mass/Vol] 1.01 ng/dL Normal 0.76-1.46 [facility] ([place]) Comment on above: Performed By: #### C BC, MG, GFR, ANEU, MDW, ADIFF, DIMER, TROPHS, LIP, CMP #### [address] [place] [id number] [place], [place] [address] LABORATORYOrdered By: SYSTEM SYSTEM on 05-15-2024 Albumin [...] 05-15-2024 TSH Qn 0.64 m[IU]/L Normal 0.36-3.74 [facility] ([place]) Comment on above: Performed By: #### C BC, MG, GFR, ANEU, MDW, ADIFF, DIMER, TROPHS, LIP, CMP #### [address] [address] .GFRon 04-15-2024 GFR 56 ml/min/1.73sqm Normal [facility] ([place]) Comment on above: Result Comment: GFR Population [...] MDW, ADIFF, DIMER, TROPHS, LIP, CMP #### [address] [address] GFR Non- 46 ml/min/1.73sqm Normal [facility] ([place]) Comment on above: Result Comment: GFR Population [...] MDW, ADIFF, DIMER, TROPHS, LIP, CMP #### [address] [address] BMPon 04-15-2024 BUN/Creatinine Ratio 18 ratio Normal 7-27 [facility] ([place]) Comment on above: Performed By: #### C BC, MG, GFR, ANEU, MDW, ADIFF, DIMER, TROPHS, LIP, CMP #### [address] [address] Calcium [Mass/Vol] 9.8 mg/dL Normal 8.4-10.2 [facility] ([place]) Comment on above: Performed By: #### C BC, MG, GFR, ANEU, MDW, ADIFF, DIMER, TROPHS, LIP, CMP #### [address] [address] Chloride [Moles/Vol] 100 mmol/L Normal 98-107 [facility] ([place]) Comment on above: Performed By: #### C BC, MG, GFR, ANEU, MDW, ADIFF, DIMER, TROPHS, LIP, CMP #### [address] [address] CO2 [Moles/Vol] 33 mmol/L High 23-31 [facility] ([place]) Comment on above: Performed By: #### C BC, MG, GFR, ANEU, MDW, ADIFF, DIMER, TROPHS, LIP, CMP #### [address] [address] Creatinine [Mass/Vol] 1.14 mg/dL High 0.55-1.02 [facility] ([place]) Comment on above: Performed By: #### C BC, MG, GFR, ANEU, MDW, ADIFF, DIMER, TROPHS, LIP, CMP #### [address] [address] Electrolyte Balance 3.0 mEq/L Low 4.0-15.0 [facility] ([place]) Comment on above: Performed By: #### C BC, MG, GFR, ANEU, MDW, ADIFF, DIMER, TROPHS, LIP, CMP #### [address] [address] Glucose [Mass/Vol] 82 mg/dL Low 83-110 [facility] ([place]) Comment on above: Performed By: #### C BC, MG, GFR, ANEU, MDW, ADIFF, DIMER, TROPHS, LIP, CMP #### [address] [address] Potassium [Moles/Vol] 5.0 mmol/L Normal 3.5-5.1 [facility] ([place]) Comment on above: Performed By: #### C BC, MG, GFR, ANEU, MDW, ADIFF, DIMER, TROPHS, LIP, CMP #### [address] [address] Sodium [Moles/Vol] 136 mmol/L Normal 136-145 [facility] ([place]) Comment on above: Performed By: #### C BC, MG, GFR, ANEU, MDW, ADIFF, DIMER, TROPHS, LIP, CMP #### [address] [address] Urea nitrogen [Mass/Vol] 20 mg/dL High 7-18 [facility] ([place]) Comment on above: Performed By: #### C BC, MG, GFR, ANEU, MDW, ADIFF, DIMER, TROPHS, LIP, CMP #### [address] [address] FT304-15-2024 Free T3 [Mass/Vol] 2.83 pg/mL Normal 2.30-4.00 [facility] ([place]) Comment on above: Performed By: #### C BC, MG, GFR, ANEU, MDW, ADIFF, DIMER, TROPHS, LIP, CMP #### [address] [address] FT4on 04-15-2024 Free T4 [Mass/Vol] 0.86 ng/dL Normal 0.76-1.46 [facility] ([place]) Comment on above: Performed By: #### C BC, MG, GFR, ANEU, MDW, ADIFF, DIMER, TROPHS, LIP, CMP #### [place] [place] [address] LABORATORYOrdered By: SYSTEM SYSTEM on 04-15-2024 Calcium [...] 04-15-2024 TSH Qn 0.97 m[IU]/L Normal 0.36-3.74 [facility] ([place]) Comment on above: Performed By: #### C BC, MG, GFR, ANEU, MDW, ADIFF, DIMER, TROPHS, LIP, CMP #### [address] [address] OSMOUon 03-04-2024 U Osmolality 246 mOsm/kg Low 390-1090 [facility] ([place]) Comment on above: Performed By: #### C BC, MG, GFR, ANEU, MDW, ADIFF, DIMER, TROPHS, LIP, CMP #### [address] [address] .GFRon 03-03-2024 GFR Non- 46 ml/min/1.73sqm Normal [facility] ([place]) Comment on above: Result Comment: GFR Population [...] MDW, ADIFF, DIMER, TROPHS, LIP, CMP #### [address] [address] GFR 56 ml/min/1.73sqm Normal [facility] ([place]) Comment on above: Result Comment: GFR Population [...] MDW, ADIFF, DIMER, TROPHS, LIP, CMP #### [address] [address] [facility] BUN/Creatinine Ratio 18 ratio Normal 7-27 [facility] ([place] Comment on above: Performed By: #### C BC, MG, GFR, ANEU, MDW, ADIFF, DIMER, TROPHS, LIP, CMP #### [address] [address] Calcium [Mass/Vol] 9.2 mg/dL Normal 8.4-10.2 [facility] ([place]) Comment on above: Performed By: #### C BC, MG, GFR, ANEU, MDW, ADIFF, DIMER, TROPHS, LIP, CMP #### [address] [address] Chloride [Moles/Vol] 100 mmol/L Normal 98-107 [facility] ([place]) Comment on above: Performed By: #### C BC, MG, GFR, ANEU, MDW, ADIFF, DIMER, TROPHS, LIP, CMP #### [place] [address] CO2 [Moles/Vol] 31 mmol/L Normal 23-31 [facility] ([place]) Comment on above: Performed By: #### C BC, MG, GFR, ANEU, MDW, ADIFF, DIMER, TROPHS, LIP, CMP #### [place] [phone] Creatinine [Mass/Vol] 1.13 mg/dL High 0.55-1.02 [facility] ([place]) Comment on above: Performed By: #### C BC, MG, GFR, ANEU, MDW, ADIFF, DIMER, TROPHS, LIP, CMP #### [address] [address] Electrolyte Balance 7.0 mEq/L Normal 4.0-15.0 [facility] ([place]) Comment on above: Performed By: #### C BC, MG, GFR, ANEU, MDW, ADIFF, DIMER, TROPHS, LIP, CMP #### [address] [address] Glucose [Mass/Vol] 107 mg/dL Normal 83-110 [facility] ([place]) Comment on above: Performed By: #### C BC, MG, GFR, ANEU, MDW, ADIFF, DIMER, TROPHS, LIP, CMP #### [address] [address] Potassium [Moles/Vol] 5.0 mmol/L Normal 3.5-5.1 [facility] ([place]) Comment on above: Performed By: #### C BC, MG, GFR, ANEU, MDW, ADIFF, DIMER, TROPHS, LIP, CMP #### [place] [address] Sodium [Moles/Vol] 138 mmol/L Normal 136-145 [facility] ([place]) Comment on above: Performed By: #### C BC, MG, GFR, ANEU, MDW, ADIFF, DIMER, TROPHS, LIP, CMP #### [place] [address] Urea nitrogen [Mass/Vol] 20 mg/dL High 7-18 [facility] ([place]) Comment on above: Performed By: #### C BC, MG, GFR, ANEU, MDW, ADIFF, DIMER, TROPHS, LIP, CMP #### [place] [address] FT3on 03-03-2024 Free T3 [Mass/Vol] 2.14 pg/mL Low 2.30-4.00 [facility] ([place]) Comment on above: Performed By: #### C BC, MG, GFR, ANEU, MDW, ADIFF, DIMER, TROPHS, LIP, CMP #### [place] [address] FT4on 03-03-2024 Free T4 [Mass/Vol] 0.84 ng/dL Normal 0.76-1.46 [facility] ([place]) Comment on above: Performed By: #### C BC, MG, GFR, ANEU, MDW, ADIFF, DIMER, TROPHS, LIP, CMP #### [place] [address] LABORATORYOrdered By: SYSTEM SYSTEM on 03-03-2024 Sodium [...] 03-03-2024 Magnesium [Mass/Vol] 2.1 mg/dL Normal 1.8-2.4 [facility] ([place]) Comment on above: Performed By: #### C BC, MG, GFR, ANEU, MDW, ADIFF, DIMER, TROPHS, LIP, CMP #### [address] [address] NAURon 03-03-2024 Sodium [Moles/Vol] 55 mmol/L Normal 20-110 [facility] ([place]) Comment on above: Performed By: #### C BC, MG, GFR, ANEU, MDW, ADIFF, DIMER, TROPHS, LIP, CMP #### [address] [address] OSMOSon 03-03-2024 Osmolality [Osmolality] 289 mosm/kg Normal 275-300 [facility] ([place]) Comment on above: Performed By: #### C BC, MG, GFR, ANEU, MDW, ADIFF, DIMER, TROPHS, LIP, CMP #### [address] [address] THYABon 03-03-2024 anti-Thyroid Peroxidase 68 units/ml High 0-60 [facility] ([place]) Comment on above: Result Comment: No te - New Reference Range in effect 20 Performed By: #### C BC, MG, GFR, ANEU, MDW, ADIFF, DIMER, TROPHS, LIP, CMP #### [address] [address] Thyroglobulin Ab 21 units/ml Normal 15-60 [facility] ([place]) Comment on above: Result Comment: No te - New Reference Range in effect 20 Performed By: #### C BC, MG, GFR, ANEU, MDW, ADIFF, DIMER, TROPHS, LIP, CMP #### [address] [address] TSHon 03-03-2024 TSH Qn 17.88 m[IU]/L High 0.36-3.74 [facility] ([place]) Comment on above: Performed By: #### C BC, MG, GFR, ANEU, MDW, ADIFF, DIMER, TROPHS, LIP, CMP #### [address] [address] .GFRon 01-30-2024 GFR 54 ml/min/1.73sqm Normal [facility] ([place]) Comment on above: Result Comment: GFR Population [...] MDW, ADIFF, DIMER, TROPHS, LIP, CMP #### [address] [address] GFR Non- 45 ml/min/1.73sqm Normal [facility] ([place]) Comment on above: Result Comment: GFR Population [...] MDW, ADIFF, DIMER, TROPHS, LIP, CMP #### [address] [address] CMPon 01-30-2024 Albumin Level 4.4 G/dL Normal 3.4-4.8 [facility] ([place]) Comment on above: Performed By: #### C BC, MG, GFR, ANEU, MDW, ADIFF, DIMER, TROPHS, LIP, CMP #### [address] [address] Albumin/Globulin [Mass ratio] 1.4 {ratio} Normal 1.1-2.5 [facility] ([place]) Comment on above: Performed By: #### C BC, MG, GFR, ANEU, MDW, ADIFF, DIMER, TROPHS, LIP, CMP #### [address] [address] ALP [Catalytic activity/Vol] 78 U/L Normal 40-135 [facility] ([place]) Comment on above: Performed By: #### C BC, MG, GFR, ANEU, MDW, ADIFF, DIMER, TROPHS, LIP, CMP #### [address] [address] ALT [Catalytic activity/Vol] 21 U/L Normal 14-59 [facility] ([place]) Comment on above: Performed By: #### C BC, MG, GFR, ANEU, MDW, ADIFF, DIMER, TROPHS, LIP, CMP #### [place] [address] AST [Catalytic activity/Vol] 18 U/L Normal 10-40 [facility] ([place]) Comment on above: Performed By: #### C BC, MG, GFR, ANEU, MDW, ADIFF, DIMER, TROPHS, LIP, CMP #### [place] [address] Bili Total 0.4 mg/dL Normal 0.2-1.0 [facility] ([place]) Comment on above: Result Comment: Use of this assay is not recommended for patients undergoing treatment with eltrombopag due to the potential for falsely elevated results. Performed By: #### C BC, MG, GFR, ANEU, MDW, ADIFF, DIMER, TROPHS, LIP, CMP #### [place] [address] BUN/Creatinine Ratio 19 ratio Normal 7-27 [facility] ([place]) Comment on above: Performed By: #### C BC, MG, GFR, ANEU, MDW, ADIFF, DIMER, TROPHS, LIP, CMP #### [place] [address] Calcium [Mass/Vol] 9.3 mg/dL Normal 8.4-10.2 [facility] ([place]) Comment on above: Performed By: #### C BC, MG, GFR, ANEU, MDW, ADIFF, DIMER, TROPHS, LIP, CMP #### [place] [address] Chloride [Moles/Vol] 98 mmol/L Normal 98-107 [facility] ([place]) Comment on above: Performed By: #### C BC, MG, GFR, ANEU, MDW, ADIFF, DIMER, TROPHS, LIP, CMP #### [address] [address] CO2 [Moles/Vol] 27 mmol/L Normal 23-31 [facility] ([place]) Comment on above: Performed By: #### C BC, MG, GFR, ANEU, MDW, ADIFF, DIMER, TROPHS, LIP, CMP #### [address] [address] Creatinine [Mass/Vol] 1.17 mg/dL High 0.55-1.02 [facility] ([place]) Comment on above: Performed By: #### C BC, MG, GFR, ANEU, MDW, ADIFF, DIMER, TROPHS, LIP, CMP #### [address] [address] Electrolyte Balance 11.0 mEq/L Normal 4.0-15.0 [facility] ([place]) Comment on above: Performed By: #### C BC, MG, GFR, ANEU, MDW, ADIFF, DIMER, TROPHS, LIP, CMP #### [address] [address] Globulin 3.1 G/dL Normal [facility] ([place]) Comment on above: Performed By: #### C BC, MG, GFR, ANEU, MDW, ADIFF, DIMER, TROPHS, LIP, CMP #### [address] [address] Glucose [Mass/Vol] 86 mg/dL Normal 83-110 [facility] ([place]) Comment on above: Performed By: #### C BC, MG, GFR, ANEU, MDW, ADIFF, DIMER, TROPHS, LIP, CMP #### [address] [address] Potassium [Moles/Vol] 4.6 mmol/L Normal 3.5-5.1 [facility] ([place]) Comment on above: Performed By: #### C BC, MG, GFR, ANEU, MDW, ADIFF, DIMER, TROPHS, LIP, CMP #### [address] [address] Sodium [Moles/Vol] 136 mmol/L Normal 136-145 [facility] ([place]) Comment on above: Performed By: #### C BC, MG, GFR, ANEU, MDW, ADIFF, DIMER, TROPHS, LIP, CMP #### [address] [address] Total Protein 7.5 G/dL Normal 6.4-8.2 [facility] ([place]) Comment on above: Performed By: #### C BC, MG, GFR, ANEU, MDW, ADIFF, DIMER, TROPHS, LIP, CMP #### [address] [address] Urea nitrogen [Mass/Vol] 22 mg/dL High 7-18 [facility] ([place] Comment on above: Performed By: #### C BC, MG, GFR, ANEU, MDW, ADIFF, DIMER, TROPHS, LIP, CMP #### [address] [address] MGon 01-30-2024 Magnesium [Mass/Vol] 2.0 mg/dL Normal 1.8-2.4 [facility]) Comment on above: Performed By: #### C BC, MG, GFR, ANEU, MDW, ADIFF, DIMER, TROPHS, LIP, CMP #### [address] [address] TSHon 01-30-2024 TSH Qn 29.66 m[IU]/L High 0.36-3.74 [facility] ([place]) Comment on above: Performed By: #### C BC, MG, GFR, ANEU, MDW, ADIFF, DIMER, TROPHS, LIP, CMP #### [address] [address] .GFRon 12-11-2023 GFR 55 ml/min/1.73sqm Normal [facility] ([place]) Comment on above: Result Comment: GFR Population [...] MDW, ADIFF, DIMER, TROPHS, LIP, CMP #### [address] [address] GFR Non- 45 ml/min/1.73sqm Normal [facility] ([place]) Comment on above: Result Comment: GFR Population [...] MDW, ADIFF, DIMER, TROPHS, LIP, CMP #### [address] [address] BMPon 12-11-2023 BUN/Creatinine Ratio 15 ratio Normal 7-27 [facility] ([place] Comment on above: Performed By: #### C BC, MG, GFR, ANEU, MDW, ADIFF, DIMER, TROPHS, LIP, CMP #### [address] [address] Calcium [Mass/Vol] 9.4 mg/dL Normal 8.4-10.2 [facility] ([place] Comment on above: Performed By: #### C BC, MG, GFR, ANEU, MDW, ADIFF, DIMER, TROPHS, LIP, CMP #### [place] [address] Chloride [Moles/Vol] 101 mmol/L Normal 98-107 [facility] ([place] Comment on above: Performed By: #### C BC, MG, GFR, ANEU, MDW, ADIFF, DIMER, TROPHS, LIP, CMP #### [place] [address] CO2 [Moles/Vol] 31 mmol/L Normal 23-31 [facility] ([place]) Comment on above: Performed By: #### C BC, MG, GFR, ANEU, MDW, ADIFF, DIMER, TROPHS, LIP, CMP #### [place] [address] Creatinine [Mass/Vol] 1.15 mg/dL High 0.55-1.02 [facility] ([place]) Comment on above: Performed By: #### C BC, MG, GFR, ANEU, MDW, ADIFF, DIMER, TROPHS, LIP, CMP #### [place] [address] Electrolyte Balance 5.0 mEq/L Normal 4.0-15.0 [facility] ([place] Comment on above: Performed By: #### C BC, MG, GFR, ANEU, MDW, ADIFF, DIMER, TROPHS, LIP, CMP #### [place] [address] Glucose [Mass/Vol] 93 mg/dL Normal 83-110 [facility] ([place]) Comment on above: Performed By: #### C BC, MG, GFR, ANEU, MDW, ADIFF, DIMER, TROPHS, LIP, CMP #### [address] [address] Potassium [Moles/Vol] 5.0 mmol/L Normal 3.5-5.1 [facility] ([place]) Comment on above: Performed By: #### C BC, MG, GFR, ANEU, MDW, ADIFF, DIMER, TROPHS, LIP, CMP #### [address] [address] Sodium [Moles/Vol] 137 mmol/L Normal 136-145 [facility] ([place]) Comment on above: Performed By: #### C BC, MG, GFR, ANEU, MDW, ADIFF, DIMER, TROPHS, LIP, CMP #### [place] [address] [place], [place] [address] Urea nitrogen [Mass/Vol] 17 mg/dL Normal 7-18 [facility] ([place] Comment on above: Performed By: #### C BC, MG, GFR, ANEU, MDW, ADIFF, DIMER, TROPHS, LIP, CMP #### [address] [address] LABORATORYOrdered By: SYSTEM SYSTEM on 12-11-2023 Calcium [...] SS .GFRon 12-04-2023 GFR 54 ml/min/1.73sqm Normal [facility] ([place]) Comment on above: Result Comment: GFR Population [...] MDW, ADIFF, DIMER, TROPHS, LIP, CMP #### [address] [address] GFR Non- 45 ml/min/1.73sqm Normal [facility] ([place]) Comment on above: Result Comment: GFR Population [...] MDW, ADIFF, DIMER, TROPHS, LIP, CMP #### [address] [address] BMPon 12-04-2023 BUN/Creatinine Ratio 18 ratio Normal 7-27 [facility] ([place]) Comment on above: Performed By: #### C BC, MG, GFR, ANEU, MDW, ADIFF, DIMER, TROPHS, LIP, CMP #### [address] [address] Calcium [Mass/Vol] 9.8 mg/dL Normal 8.4-10.2 [facility] ([place]) Comment on above: Performed By: #### C BC, MG, GFR, ANEU, MDW, ADIFF, DIMER, TROPHS, LIP, CMP #### [address] [address] Chloride [Moles/Vol] 100 mmol/L Normal 98-107 [facility] ([place] Comment on above: Performed By: #### C BC, MG, GFR, ANEU, MDW, ADIFF, DIMER, TROPHS, LIP, CMP #### [address] [address] CO2 [Moles/Vol] 29 mmol/L Normal 23-31 [facility] ([place] Comment on above: Performed By: #### C BC, MG, GFR, ANEU, MDW, ADIFF, DIMER, TROPHS, LIP, CMP #### [address] [address] Creatinine [Mass/Vol] 1.16 mg/dL High 0.55-1.02 [facility] ([place]) Comment on above: Performed By: #### C BC, MG, GFR, ANEU, MDW, ADIFF, DIMER, TROPHS, LIP, CMP #### [address] [address] Electrolyte Balance 8.0 mEq/L Normal 4.0-15.0 [facility] ([place] Comment on above: Performed By: #### C BC, MG, GFR, ANEU, MDW, ADIFF, DIMER, TROPHS, LIP, CMP #### [address] [address] Glucose [Mass/Vol] 111 mg/dL High 83-110 [facility] ([place] Comment on above: Performed By: #### C BC, MG, GFR, ANEU, MDW, ADIFF, DIMER, TROPHS, LIP, CMP #### [address] [address] Potassium [Moles/Vol] 4.2 mmol/L Normal 3.5-5.1 [facility] ([place]) Comment on above: Performed By: #### C BC, MG, GFR, ANEU, MDW, ADIFF, DIMER, TROPHS, LIP, CMP #### [address] [address] Sodium [Moles/Vol] 137 mmol/L Normal 136-145 [facility] ([place] Comment on above: Performed By: #### C BC, MG, GFR, ANEU, MDW, ADIFF, DIMER, TROPHS, LIP, CMP #### [address] [address] Urea nitrogen [Mass/Vol] 21 mg/dL High 7-18 [facility] ([place] Comment on above: Performed By: #### C BC, MG, GFR, ANEU, MDW, ADIFF, DIMER, TROPHS, LIP, CMP #### [place] [address] [place], [place] [address] LABORATORYOrdered By: Juliet Celeste on 12-04-2023 Albumin [...] 12-04-2023 U Creatinine 18.9 mg/dL Low 28.0-117.0 [facility] ([place] Comment on above: Performed By: #### C BC, MG, GFR, ANEU, MDW, ADIFF, DIMER, TROPHS, LIP, CMP #### [place] [place] [id number] [place], [place] [address] U Microalb 870 mcg/dL Normal [facility] ([place] Comment on above: Performed By: #### C BC, MG, GFR, ANEU, MDW, ADIFF, DIMER, TROPHS, LIP, CMP #### [address] [address] U Ratio Alb/Cre 46 mcg/mg High 0-30 [facility] ([place] Comment on above: Performed By: #### C BC, MG, GFR, ANEU, MDW, ADIFF, DIMER, TROPHS, LIP, CMP #### [address] [address] .GFRon 10-10-2023 GFR 57 ml/min/1.73sqm Normal [facility] ([place] Comment on above: Result Comment: GFR Population [...] MDW, ADIFF, DIMER, TROPHS, LIP, CMP #### [address] [address] GFR Non- 47 ml/min/1.73sqm Normal [facility] ([place]) Comment on above: Result Comment: GFR Population [...] MDW, ADIFF, DIMER, TROPHS, LIP, CMP #### [address] [address] BMPon 10-10-2023 BUN/Creatinine Ratio 15 ratio Normal 7-27 [facility] ([place] Comment on above: Performed By: #### C BC, MG, GFR, ANEU, MDW, ADIFF, DIMER, TROPHS, LIP, CMP #### [address] [address] Calcium [Mass/Vol] 9.1 mg/dL Normal 8.4-10.2 [facility] ([place] Comment on above: Performed By: #### C BC, MG, GFR, ANEU, MDW, ADIFF, DIMER, TROPHS, LIP, CMP #### [address] [address] Chloride [Moles/Vol] 100 mmol/L Normal 98-107 [facility] ([place] Comment on above: Performed By: #### C BC, MG, GFR, ANEU, MDW, ADIFF, DIMER, TROPHS, LIP, CMP #### [address] [address] CO2 [Moles/Vol] 28 mmol/L Normal 23-31 [facility] ([place] Comment on above: Performed By: #### C BC, MG, GFR, ANEU, MDW, ADIFF, DIMER, TROPHS, LIP, CMP #### [address] [address] Creatinine [Mass/Vol] 1.11 mg/dL High 0.55-1.02 [facility] ([place]) Comment on above: Performed By: #### C BC, MG, GFR, ANEU, MDW, ADIFF, DIMER, TROPHS, LIP, CMP #### [address] [address] Electrolyte Balance 9.0 mEq/L Normal 4.0-15.0 [facility] ([place] Comment on above: Performed By: #### C BC, MG, GFR, ANEU, MDW, ADIFF, DIMER, TROPHS, LIP, CMP #### [address] [address] Glucose [Mass/Vol] 138 mg/dL High 83-110 [facility] ([place] Comment on above: Performed By: #### C BC, MG, GFR, ANEU, MDW, ADIFF, DIMER, TROPHS, LIP, CMP #### [address] [address] Potassium [Moles/Vol] 4.4 mmol/L Normal 3.5-5.1 [facility] ([place]) Comment on above: Performed By: #### C BC, MG, GFR, ANEU, MDW, ADIFF, DIMER, TROPHS, LIP, CMP #### [address] [address] Sodium [Moles/Vol] 137 mmol/L Normal 136-145 [facility] ([place] Comment on above: Performed By: #### C BC, MG, GFR, ANEU, MDW, ADIFF, DIMER, TROPHS, LIP, CMP #### [address] [address] Urea nitrogen [Mass/Vol] 17 mg/dL Normal 7-18 [facility] ([place]) Comment on above: Performed By: #### C BC, MG, GFR, ANEU, MDW, ADIFF, DIMER, TROPHS, LIP, CMP #### [address] [address] LABORATORYOrdered By: SYSTEM SYSTEM on 10-10-2023 Calcium [...] SS .GFRon 09-13-2023 GFR 62 ml/min/1.73sqm Normal [facility] ([place]) Comment on above: Result Comment: GFR Population [...] MDW, ADIFF, DIMER, TROPHS, LIP, CMP #### [address] [address] GFR Non- 51 ml/min/1.73sqm Normal [facility] ([place]) Comment on above: Result Comment: GFR Population [...] MDW, ADIFF, DIMER, TROPHS, LIP, CMP #### [address] [address] BMPon 12-21-2023 BUN/Creatinine Ratio 14 ratio Normal 7-27 [facility] ([place] Comment on above: Performed By: #### C BC, MG, GFR, ANEU, MDW, ADIFF, DIMER, TROPHS, LIP, CMP #### [address] [address] Calcium [Mass/Vol] 9.3 mg/dL Normal 8.4-10.2 [facility] ([place] Comment on above: Performed By: #### C BC, MG, GFR, ANEU, MDW, ADIFF, DIMER, TROPHS, LIP, CMP #### [address] [address] Chloride [Moles/Vol] 98 mmol/L Normal 98-107 [facility] ([place] Comment on above: Performed By: #### C BC, MG, GFR, ANEU, MDW, ADIFF, DIMER, TROPHS, LIP, CMP #### [address] [address] CO2 [Moles/Vol] 28 mmol/L Normal 23-31 [facility] ([place] Comment on above: Performed By: #### C BC, MG, GFR, ANEU, MDW, ADIFF, DIMER, TROPHS, LIP, CMP #### [address] [address] Creatinine [Mass/Vol] 1.04 mg/dL High 0.55-1.02 [facility] ([place]) Comment on above: Performed By: #### C BC, MG, GFR, ANEU, MDW, ADIFF, DIMER, TROPHS, LIP, CMP #### [address] [address] Electrolyte Balance 12.0 mEq/L Normal 4.0-15.0 [facility] ([place] Comment on above: Performed By: #### C BC, MG, GFR, ANEU, MDW, ADIFF, DIMER, TROPHS, LIP, CMP #### [address] [address] Glucose [Mass/Vol] 107 mg/dL Normal 83-110 [facility] ([place] Comment on above: Performed By: #### C BC, MG, GFR, ANEU, MDW, ADIFF, DIMER, TROPHS, LIP, CMP #### [address] [address] Potassium [Moles/Vol] 4.5 mmol/L Normal 3.5-5.1 [facility] ([place] Comment on above: Performed By: #### C BC, MG, GFR, ANEU, MDW, ADIFF, DIMER, TROPHS, LIP, CMP #### [address] [address] Sodium [Moles/Vol] 138 mmol/L Normal 136-145 [facility] ([place]) Comment on above: Performed By: #### C BC, MG, GFR, ANEU, MDW, ADIFF, DIMER, TROPHS, LIP, CMP #### [address] [address] Urea nitrogen [Mass/Vol] 15 mg/dL Normal 7-18 [facility] ([place]) Comment on above: Performed By: #### C BC, MG, GFR, ANEU, MDW, ADIFF, DIMER, TROPHS, LIP, CMP #### [address] [address] .GFRon 09-11-2023 GFR Non- 53 ml/min/1.73sqm Normal [facility] ([place]) Comment on above: Result Comment: GFR Population [...] MDW, ADIFF, DIMER, TROPHS, LIP, CMP #### [address] [address] GFR 64 ml/min/1.73sqm Normal [facility] ([place]) Comment on above: Result Comment: GFR Population [...] MDW, ADIFF, DIMER, TROPHS, LIP, CMP #### [address] [address] CMPon 09-11-2023 Albumin Level 4.2 G/dL Normal 3.4-4.8 [facility] ([place]) Comment on above: Performed By: #### C BC, MG, GFR, ANEU, MDW, ADIFF, DIMER, TROPHS, LIP, CMP #### [address] [address] Albumin/Globulin [Mass ratio] 1.3 {ratio} Normal 1.1-2.5 [facility] ([place] Comment on above: Performed By: #### C BC, MG, GFR, ANEU, MDW, ADIFF, DIMER, TROPHS, LIP, CMP #### [address] [address] ALP [Catalytic activity/Vol] 82 U/L Normal 40-135 [facility] ([place]) Comment on above: Performed By: #### C BC, MG, GFR, ANEU, MDW, ADIFF, DIMER, TROPHS, LIP, CMP #### [address] [address] ALT [Catalytic activity/Vol] 21 U/L Normal 14-59 [facility] ([place]) Comment on above: Performed By: #### C BC, MG, GFR, ANEU, MDW, ADIFF, DIMER, TROPHS, LIP, CMP #### [address] [address] AST [Catalytic activity/Vol] 15 U/L Normal 10-40 [facility] ([place]) Comment on above: Performed By: #### C BC, MG, GFR, ANEU, MDW, ADIFF, DIMER, TROPHS, LIP, CMP #### [place] [address] Bili Total 0.3 mg/dL Normal 0.2-1.0 [facility] ([place]) Comment on above: Result Comment: Use of this assay is not recommended for patients undergoing treatment with eltrombopag due to the potential for falsely elevated results. Performed By: #### C BC, MG, GFR, ANEU, MDW, ADIFF, DIMER, TROPHS, LIP, CMP #### [place] [address] BUN/Creatinine Ratio 15 ratio Normal 7-27 [facility] ([place]) Comment on above: Performed By: #### C BC, MG, GFR, ANEU, MDW, ADIFF, DIMER, TROPHS, LIP, CMP #### [place] [address] Calcium [Mass/Vol] 9.5 mg/dL Normal 8.4-10.2 [facility] ([place]) Comment on above: Performed By: #### C BC, MG, GFR, ANEU, MDW, ADIFF, DIMER, TROPHS, LIP, CMP #### [place] [address] Chloride [Moles/Vol] 96 mmol/L Low 98-107 [facility] ([place] Comment on above: Performed By: #### C BC, MG, GFR, ANEU, MDW, ADIFF, DIMER, TROPHS, LIP, CMP #### [place] [id number] CO2 [Moles/Vol] 31 mmol/L Normal 23-31 [facility] ([place] Comment on above: Performed By: #### C BC, MG, GFR, ANEU, MDW, ADIFF, DIMER, TROPHS, LIP, CMP #### [address] [address] Creatinine [Mass/Vol] 1.01 mg/dL Normal 0.55-1.02 [facility] ([place]) Comment on above: Performed By: #### C BC, MG, GFR, ANEU, MDW, ADIFF, DIMER, TROPHS, LIP, CMP #### [address] [address] Electrolyte Balance 7.0 mEq/L Normal 4.0-15.0 [facility] ([place] Comment on above: Performed By: #### C BC, MG, GFR, ANEU, MDW, ADIFF, DIMER, TROPHS, LIP, CMP #### [address] [address] Globulin 3.2 G/dL Normal [facility] ([place]) Comment on above: Performed By: #### C BC, MG, GFR, ANEU, MDW, ADIFF, DIMER, TROPHS, LIP, CMP #### [address] [address] Glucose [Mass/Vol] 107 mg/dL Normal 83-110 [facility] ([place] Comment on above: Performed By: #### C BC, MG, GFR, ANEU, MDW, ADIFF, DIMER, TROPHS, LIP, CMP #### [address] [address] Potassium [Moles/Vol] 5.5 mmol/L High 3.5-5.1 [facility] ([place]) Comment on above: Performed By: #### C BC, MG, GFR, ANEU, MDW, ADIFF, DIMER, TROPHS, LIP, CMP #### [address] [address] Sodium [Moles/Vol] 134 mmol/L Low 136-145 [facility] ([place]) Comment on above: Performed By: #### C BC, MG, GFR, ANEU, MDW, ADIFF, DIMER, TROPHS, LIP, CMP #### [address] [address] Total Protein 7.4 G/dL Normal 6.4-8.2 [facility] ([place]) Comment on above: Performed By: #### C BC, MG, GFR, ANEU, MDW, ADIFF, DIMER, TROPHS, LIP, CMP #### [address] [address] Urea nitrogen [Mass/Vol] 15 mg/dL Normal 7-18 [facility] ([place]) Comment on above: Performed By: #### C BC, MG, GFR, ANEU, MDW, ADIFF, DIMER, TROPHS, LIP, CMP #### [address] [address] .Auto Diffon 09-02-2023 Basophil, Absolute 0.0 10 3/mcL Normal 0.0-0.2 [facility] ([place] Comment on above: Performed By: #### C BC, MG, GFR, ANEU, MDW, ADIFF, DIMER, TROPHS, LIP, CMP #### [address] [address] Basophils/100 WBC (Bld) 0.4 % Normal 0.0-2.5 [facility] ([place]) Comment on above: Performed By: #### C BC, MG, GFR, ANEU, MDW, ADIFF, DIMER, TROPHS, LIP, CMP #### [address] [address] Eosinophil, Absolute 0.1 10 3/mcL Normal 0.0-0.4 [facility] ([place]) Comment on above: Performed By: #### C BC, MG, GFR, ANEU, MDW, ADIFF, DIMER, TROPHS, LIP, CMP #### [address] [address] Eosinophils/100 WBC (Bld) 1.4 % Normal 0.0-7.0 [facility] ([place]) Comment on above: Performed By: #### C BC, MG, GFR, ANEU, MDW, ADIFF, DIMER, TROPHS, LIP, CMP #### [address] [address] Lymphocyte, Absolute 0.9 10 3/mcL Normal 0.8-3.9 [facility] ([place]) Comment on above: Performed By: #### C BC, MG, GFR, ANEU, MDW, ADIFF, DIMER, TROPHS, LIP, CMP #### [address] [address] Lymphocytes/100 WBC (Bld) 15.7 % Normal 10.0-50.0 [facility] ([place] Comment on above: Performed By: #### C BC, MG, GFR, ANEU, MDW, ADIFF, DIMER, TROPHS, LIP, CMP #### [address] [address] Monocyte, Absolute 0.4 10 3/mcL Normal 0.2-1.0 [facility] ([place]) Comment on above: Performed By: #### C BC, MG, GFR, ANEU, MDW, ADIFF, DIMER, TROPHS, LIP, CMP #### [address] [address] Monocytes/100 WBC (Bld) 7.9 % Normal 1.7-13.0 [facility] ([place] Comment on above: Performed By: #### C BC, MG, GFR, ANEU, MDW, ADIFF, DIMER, TROPHS, LIP, CMP #### [address] [address] Neutrophils/100 WBC (Bld) 74.6 % Normal 37.0-80.0 [facility] ([place]) Comment on above: Performed By: #### C BC, MG, GFR, ANEU, MDW, ADIFF, DIMER, TROPHS, LIP, CMP #### [address] [address] .GFRon 09-02-2023 GFR 70 ml/min/1.73sqm Normal [facility] ([place]) Comment on above: Result Comment: GFR Population [...] MDW, ADIFF, DIMER, TROPHS, LIP, CMP #### [address] [address] GFR Non- 58 ml/min/1.73sqm Normal [facility] ([place]) Comment on above: Result Comment: GFR Population [...] MDW, ADIFF, DIMER, TROPHS, LIP, CMP #### [address] [address] .MDWon 09-02-2023 Monocyte Distribution Width 16.32 Normal 0.00-20.00 [facility] ([place]) Comment on above: Result Comment: For ED adult patients suspected of sepsis, MDW<=20.0 does not rule out sepsis or risk of sepsis Performed By: #### C BC, MG, GFR, ANEU, MDW, ADIFF, DIMER, TROPHS, LIP, CMP #### [address] [address] .NEUABSon 09-02-2023 Neutrophil, Absolute 4.2 10 3/mcL Normal 2.9-6.2 [facility] ([place]) Comment on above: Performed By: #### C BC, MG, GFR, ANEU, MDW, ADIFF, DIMER, TROPHS, LIP, CMP #### [place] [address] [address] .Urinalysis Microscopic (AO) on 09-02-2023 UA RBC None Seen Normal None Seen [facility] ([place]) Comment on above: Performed By: #### U A, UAMICAO ####[address] [address] UA Squam Epithelial 0-5 Abnormal None Seen [facility] ([place] Comment on above: Performed By: #### U A, UAMICAO ####[address] [address] UA WBC 0-5 Abnormal None Seen [facility] ([place] Comment on above: Performed By: #### U A, UAMICAO ####[address] [address] BMPon 09-02-2023 BUN/Creatinine Ratio 14 ratio Normal 7-27 [facility] ([place]) Comment on above: Performed By: #### C BC, MG, GFR, ANEU, MDW, ADIFF, DIMER, TROPHS, LIP, CMP #### [address] [address] Calcium [Mass/Vol] 9.3 mg/dL Normal 8.4-10.2 [facility] ([place]) Comment on above: Performed By: #### C BC, MG, GFR, ANEU, MDW, ADIFF, DIMER, TROPHS, LIP, CMP #### [address] [address] Chloride [Moles/Vol] 101 mmol/L Normal 98-107 [facility] ([place]) Comment on above: Performed By: #### C BC, MG, GFR, ANEU, MDW, ADIFF, DIMER, TROPHS, LIP, CMP #### [address] [address] CO2 [Moles/Vol] 27 mmol/L Normal 23-31 [facility] ([place]) Comment on above: Performed By: #### C BC, MG, GFR, ANEU, MDW, ADIFF, DIMER, TROPHS, LIP, CMP #### [address] [address] Creatinine [Mass/Vol] 0.93 mg/dL Normal 0.55-1.02 [facility] ([place]) Comment on above: Performed By: #### C BC, MG, GFR, ANEU, MDW, ADIFF, DIMER, TROPHS, LIP, CMP #### [address] [address] Electrolyte Balance 11.0 mEq/L Normal 4.0-15.0 [facility] ([place] Comment on above: Performed By: #### C BC, MG, GFR, ANEU, MDW, ADIFF, DIMER, TROPHS, LIP, CMP #### [address] [address] Glucose [Mass/Vol] 101 mg/dL Normal 83-110 [facility] ([place]) Comment on above: Performed By: #### C BC, MG, GFR, ANEU, MDW, ADIFF, DIMER, TROPHS, LIP, CMP #### [address] [address] Potassium [Moles/Vol] 4.4 mmol/L Normal 3.5-5.1 [facility] ([place]) Comment on above: Performed By: #### C BC, MG, GFR, ANEU, MDW, ADIFF, DIMER, TROPHS, LIP, CMP #### [address] [address] Sodium [Moles/Vol] 139 mmol/L Normal 136-145 [facility] ([place]) Comment on above: Performed By: #### C BC, MG, GFR, ANEU, MDW, ADIFF, DIMER, TROPHS, LIP, CMP #### [place] [address] Urea nitrogen [Mass/Vol] 13 mg/dL Normal 7-18 [facility] ([place]) Comment on above: Performed By: #### C BC, MG, GFR, ANEU, MDW, ADIFF, DIMER, TROPHS, LIP, CMP #### [place] [address] CBCon 09-02-2023 Erythrocyte distribution width (RBC) [Ratio] 14.5 % Normal 11.5-14.5 [facility] ([place]) Comment on above: Performed By: #### C BC, MG, GFR, ANEU, MDW, ADIFF, DIMER, TROPHS, LIP, CMP #### [place] [address] Hematocrit (Bld) [Volume fraction] 37.5 % Normal 37.0-47.0 [facility] ([place]) Comment on above: Performed By: #### C BC, MG, GFR, ANEU, MDW, ADIFF, DIMER, TROPHS, LIP, CMP #### [place] [address] Hgb 12.8 G/dL Normal 12.0-16.0 [facility] ([place]) Comment on above: Performed By: #### C BC, MG, GFR, ANEU, MDW, ADIFF, DIMER, TROPHS, LIP, CMP #### [place] [address] MCH (RBC) [Entitic mass] 29.5 pg Normal 27.0-31.2 [facility] ([place]) Comment on above: Performed By: #### C BC, MG, GFR, ANEU, MDW, ADIFF, DIMER, TROPHS, LIP, CMP #### [place] [address] MCHC 34.1 G/dL Normal 33.0-37.0 [facility] ([place]) Comment on above: Performed By: #### C BC, MG, GFR, ANEU, MDW, ADIFF, DIMER, TROPHS, LIP, CMP #### [address] [address] MCV (RBC) [Entitic vol] 86.5 fL Normal 80.0-94.0 [facility] ([place]) Comment on above: Performed By: #### C BC, MG, GFR, ANEU, MDW, ADIFF, DIMER, TROPHS, LIP, CMP #### [address] [address] Platelet 269 10 3/mcL Normal 130-400 [facility] ([place]) Comment on above: Performed By: #### C BC, MG, GFR, ANEU, MDW, ADIFF, DIMER, TROPHS, LIP, CMP #### [address] [address] Platelet mean volume (Bld) [Entitic vol] 7.5 fL Normal 7.4-10.4 [facility] ([place]) Comment on above: Performed By: #### C BC, MG, GFR, ANEU, MDW, ADIFF, DIMER, TROPHS, LIP, CMP #### [address] [address] RBC 4.34 10 6/mcL Normal 4.20-5.40 [facility] ([place]) Comment on above: Performed By: #### C BC, MG, GFR, ANEU, MDW, ADIFF, DIMER, TROPHS, LIP, CMP #### [place] [id number] WBC 5.6 10 3/mcL Normal 4.6-10.8 [facility] ([place]) Comment on above: Performed By: #### C BC, MG, GFR, ANEU, MDW, ADIFF, DIMER, TROPHS, LIP, CMP #### [address] [address] [address] HEAD OR BRAIN W/O CONTRAS Ton [...] 09/02/2023 12:12:26 PM Ordering Provider: YAZMIN ANDERS [facility] ([place]) LABORATORYOrdered By: [place] on 09-02-2023 Appearance [...] 09-02-2023 Magnesium [Mass/Vol] 1.9 mg/dL Normal 1.8-2.4 [facility] ([place]) Comment on above: Performed By: #### C BC, MG, GFR, ANEU, MDW, ADIFF, DIMER, TROPHS, LIP, CMP #### [place] [address] [address] TROPHSon 09-02-2023 Troponin I High Sensitivity 10.0 ng/L Normal 0.0-51.4 [facility] ([place]) Comment on above: Performed By: #### C BC, MG, GFR, ANEU, MDW, ADIFF, DIMER, TROPHS, LIP, CMP #### [place] [address] [address] TSHon 09-02-2023 TSH Qn 0.37 m[IU]/L Normal 0.36-3.74 [facility] ([place]) Comment on above: Performed By: #### C BC, MG, GFR, ANEU, MDW, ADIFF, DIMER, TROPHS, LIP, CMP #### [place] [address] [address] UAon 09-02-2023 Color (U) Yellow Normal [facility] ([place]) Comment on above: Performed By: #### U A, UAMICAO ####[place] [id number] Glucose (U) [Mass/Vol] Negative Normal Negative [facility] ([place]) Comment on above: Performed By: #### U A, U[place]O ####[address] [address] Ketones Ql (U) Negative Normal Negative [facility] ([place]) Comment on above: Performed By: #### U A, UAM[place]O ####[address] [address] UA Appear Clear Normal Clear [facility] ([place] Comment on above: Performed By: #### U A, UAMICAO ####[address] [place], [place] [address] UA Blood Negative Normal Negative [facility] ([place]) Comment on above: Performed By: #### U A, UAMICAO ####[address] [place], [place] [address] UA Leuk Est Small Abnormal Negative [facility] ([place] Comment on above: Performed By: #### U A, UAM[place]O ####[address] [place], [place] [address] UA Nitrite Negative Normal Negative [facility] ([place] Comment on above: Performed By: #### U A [place]AM[place]O ####[address] [place], [place] [address] UA pH 7.0 Normal 5.0 - 8.0 [facility] ([place] Comment on above: Performed By: #### U A [place]AM[place]O ####[address] [place], [place] [address] UA Protein Negative Normal Negative [facility] ([place] Comment on above: Performed By: #### U A UAMICAO ####[address] [place] [address] UA Spec Grav 1.010 Abnormal 1.015-1.025 [facility] ([place] Comment on above: Performed By: #### U Christina UAMICAO ####[address] [place] [address] UA Specimen Type Clean Catch Normal [facility] ([place] Comment on above: Performed By: #### U A UAMICAO ####[address] [place] [address] UA Urobilinogen 0.2 E.U./dL Normal 0.2-1.0 [facility] ([place]) Comment on above: Performed By: #### U A UAMICAO ####[address] [place] [address] Urobilinogen (U) [Mass/Vol] Negative Normal Negative [facility] ([place]) Comment on above: Performed By: #### U A UAMICAO ####[address] [place] [address] XR CHEST 1 VIEWon 09-02-2023 XR CHEST [...] 09/02/2023 12:13:24 PM Ordering Provider: YAZMIN ANDERS [facility] ([place]) .GFRon 08-30-2023 GFR 66 ml/min/1.73sqm [facility] ([place]) Comment on above: Result Comment: GFR Population [...] MDW, ADIFF, DIMER, TROPHS, LIP, CMP #### [address] [address] GFR Non- 54 ml/min/1.73sqm [facility] ([place] Comment on above: Result Comment: GFR Population [...] MDW, ADIFF, DIMER, TROPHS, LIP, CMP #### [address] [address] CMPon 08-30-2023 Albumin Level 4.1 G/dL Normal 3.4-4.8 [facility] ([place]) Comment on above: Performed By: #### C BC, MG, GFR, ANEU, MDW, ADIFF, DIMER, TROPHS, LIP, CMP #### [address] [address] Albumin/Globulin [Mass ratio] 1.4 {ratio} Normal 1.1-2.5 [facility] ([place]) Comment on above: Performed By: #### C BC, MG, GFR, ANEU, MDW, ADIFF, DIMER, TROPHS, LIP, CMP #### [address] [address] ALP [Catalytic activity/Vol] 75 U/L Normal 40-135 [facility] ([place]) Comment on above: Performed By: #### C BC, MG, GFR, ANEU, MDW, ADIFF, DIMER, TROPHS, LIP, CMP #### [address] [address] ALT [Catalytic activity/Vol] 26 U/L Normal 14-59 [facility] ([place]) Comment on above: Performed By: #### C BC, MG, GFR, ANEU, MDW, ADIFF, DIMER, TROPHS, LIP, CMP #### [address] [address] AST [Catalytic activity/Vol] 15 U/L Normal 10-40 [facility] ([place]) Comment on above: Performed By: #### C BC, MG, GFR, ANEU, MDW, ADIFF, DIMER, TROPHS, LIP, CMP #### [address] [address] Bili Total 0.5 mg/dL Normal 0.2-1.0 [facility] ([place]) Comment on above: Result Comment: Use of this assay is not recommended for patients undergoing treatment with eltrombopag due to the potential for falsely elevated results. Performed By: #### C BC, MG, GFR, ANEU, MDW, ADIFF, DIMER, TROPHS, LIP, CMP #### [address] [address] BUN/Creatinine Ratio 14 ratio Normal 7-27 [facility] ([place] Comment on above: Performed By: #### C BC, MG, GFR, ANEU, MDW, ADIFF, DIMER, TROPHS, LIP, CMP #### [address] [address] Calcium [Mass/Vol] 9.6 mg/dL Normal 8.4-10.2 [facility] ([place]) Comment on above: Performed By: #### C BC, MG, GFR, ANEU, MDW, ADIFF, DIMER, TROPHS, LIP, CMP #### [address] [address] Chloride [Moles/Vol] 100 mmol/L Normal 98-107 [facility] ([place] Comment on above: Performed By: #### C BC, MG, GFR, ANEU, MDW, ADIFF, DIMER, TROPHS, LIP, CMP #### [address] [address] CO2 [Moles/Vol] 27 mmol/L Normal 23-31 [facility] ([place]) Comment on above: Performed By: #### C BC, MG, GFR, ANEU, MDW, ADIFF, DIMER, TROPHS, LIP, CMP #### [address] [address] Creatinine [Mass/Vol] 0.99 mg/dL Normal 0.55-1.02 [facility] ([place]) Comment on above: Performed By: #### C BC, MG, GFR, ANEU, MDW, ADIFF, DIMER, TROPHS, LIP, CMP #### [address] [address] Electrolyte Balance 9.0 mEq/L Normal 4.0-15.0 [facility] ([place] Comment on above: Performed By: #### C BC, MG, GFR, ANEU, MDW, ADIFF, DIMER, TROPHS, LIP, CMP #### [address] [address] Globulin 2.9 G/dL Normal [facility] ([place]) Comment on above: Performed By: #### C BC, MG, GFR, ANEU, MDW, ADIFF, DIMER, TROPHS, LIP, CMP #### [address] [address] Glucose [Mass/Vol] 93 mg/dL Normal 83-110 [facility] ([place] Comment on above: Performed By: #### C BC, MG, GFR, ANEU, MDW, ADIFF, DIMER, TROPHS, LIP, CMP #### [address] [address] Potassium [Moles/Vol] 4.1 mmol/L Normal 3.5-5.1 [facility] ([place]) Comment on above: Performed By: #### C BC, MG, GFR, ANEU, MDW, ADIFF, DIMER, TROPHS, LIP, CMP #### [address] [address] Sodium [Moles/Vol] 136 mmol/L Normal 136-145 [facility] ([place] Comment on above: Performed By: #### C BC, MG, GFR, ANEU, MDW, ADIFF, DIMER, TROPHS, LIP, CMP #### [address] [address] Total Protein 7.0 G/dL Normal 6.4-8.2 [facility] ([place]) Comment on above: Performed By: #### C BC, MG, GFR, ANEU, MDW, ADIFF, DIMER, TROPHS, LIP, CMP #### [address] [address] Urea nitrogen [Mass/Vol] 14 mg/dL Normal 7-18 [facility] ([place] Comment on above: Performed By: #### C BC, MG, GFR, ANEU, MDW, ADIFF, DIMER, TROPHS, LIP, CMP #### [place] [phone] LABORATORYOrdered By: SYSTEM SYSTEM on 08-30-2023 Albumin [...] 08-30-2023 Magnesium [Mass/Vol] 1.9 mg/dL Normal 1.8-2.4 [facility] ([place] Comment on above: Performed By: #### C BC, MG, GFR, ANEU, MDW, ADIFF, DIMER, TROPHS, LIP, CMP #### [address] [address] .GFRon 08-21-2023 GFR 56 ml/min/1.73sqm Normal [facility] ([place]) Comment on above: Result Comment: GFR Population [...] MDW, ADIFF, DIMER, TROPHS, LIP, CMP #### [address] [address] GFR Non- 46 ml/min/1.73sqm Normal [facility] ([place] Comment on above: Result Comment: GFR Population [...] MDW, ADIFF, DIMER, TROPHS, LIP, CMP #### [address] [address] CMP 08-21-2023 Albumin Level 4.1 G/dL Normal 3.4-4.8 [facility] ([place]) Comment on above: Performed By: #### C BC, MG, GFR, ANEU, MDW, ADIFF, DIMER, TROPHS, LIP, CMP #### [address] [address] Albumin/Globulin [Mass ratio] 1.3 {ratio} Normal 1.1-2.5 [facility] ([place]) Comment on above: Performed By: #### C BC, MG, GFR, ANEU, MDW, ADIFF, DIMER, TROPHS, LIP, CMP #### [address] [address] ALP [Catalytic activity/Vol] 75 U/L Normal 40-135 [facility] ([place] Comment on above: Performed By: #### C BC, MG, GFR, ANEU, MDW, ADIFF, DIMER, TROPHS, LIP, CMP #### [place] [address] ALT [Catalytic activity/Vol] 23 U/L Normal 14-59 [facility] ([place]) Comment on above: Performed By: #### C BC, MG, GFR, ANEU, MDW, ADIFF, DIMER, TROPHS, LIP, CMP #### [place] [address] AST [Catalytic activity/Vol] 16 U/L Normal 10-40 [facility] ([place] Comment on above: Performed By: #### C BC, MG, GFR, ANEU, MDW, ADIFF, DIMER, TROPHS, LIP, CMP #### [address] [address] Bili Total 0.4 mg/dL Normal 0.2-1.0 [facility] ([place]) Comment on above: Result Comment: Use of this assay is not recommended for patients undergoing treatment with eltrombopag due to the potential for falsely elevated results. Performed By: #### C BC, MG, GFR, ANEU, MDW, ADIFF, DIMER, TROPHS, LIP, CMP #### [place] [address] BUN/Creatinine Ratio 17 ratio Normal 7-27 [facility] ([place] Comment on above: Performed By: #### C BC, MG, GFR, ANEU, MDW, ADIFF, DIMER, TROPHS, LIP, CMP #### [address] [address] Calcium [Mass/Vol] 8.4 mg/dL Normal 8.4-10.2 [facility] ([place] Comment on above: Performed By: #### C BC, MG, GFR, ANEU, MDW, ADIFF, DIMER, TROPHS, LIP, CMP #### [address] [address] Chloride [Moles/Vol] 100 mmol/L Normal 98-107 [facility] ([place] Comment on above: Performed By: #### C BC, MG, GFR, ANEU, MDW, ADIFF, DIMER, TROPHS, LIP, CMP #### [address] [address] CO2 [Moles/Vol] 26 mmol/L Normal 23-31 [facility] ([place] Comment on above: Performed By: #### C BC, MG, GFR, ANEU, MDW, ADIFF, DIMER, TROPHS, LIP, CMP #### [address] [address] Creatinine [Mass/Vol] 1.14 mg/dL High 0.55-1.02 [facility] ([place]) Comment on above: Performed By: #### C BC, MG, GFR, ANEU, MDW, ADIFF, DIMER, TROPHS, LIP, CMP #### [address] [address] Electrolyte Balance 10.0 mEq/L Normal 4.0-15.0 [facility] ([place] Comment on above: Performed By: #### C BC, MG, GFR, ANEU, MDW, ADIFF, DIMER, TROPHS, LIP, CMP #### [address] [address] Globulin 3.1 G/dL Normal [facility] ([place] Comment on above: Performed By: #### C BC, MG, GFR, ANEU, MDW, ADIFF, DIMER, TROPHS, LIP, CMP #### [address] [address] Glucose [Mass/Vol] 117 mg/dL High 83-110 [facility] ([place] Comment on above: Performed By: #### C BC, MG, GFR, ANEU, MDW, ADIFF, DIMER, TROPHS, LIP, CMP #### [address] [address] Potassium [Moles/Vol] 4.7 mmol/L Normal 3.5-5.1 [facility] ([place]) Comment on above: Performed By: #### C BC, MG, GFR, ANEU, MDW, ADIFF, DIMER, TROPHS, LIP, CMP #### [address] [address] Sodium [Moles/Vol] 136 mmol/L Normal 136-145 [facility] ([place] Comment on above: Performed By: #### C BC, MG, GFR, ANEU, MDW, ADIFF, DIMER, TROPHS, LIP, CMP #### [address] [address] Total Protein 7.2 G/dL Normal 6.4-8.2 [facility] ([place]) Comment on above: Performed By: #### C BC, MG, GFR, ANEU, MDW, ADIFF, DIMER, TROPHS, LIP, CMP #### [address] [address] Urea nitrogen [Mass/Vol] 19 mg/dL High 7-18 [facility] ([place] Comment on above: Performed By: #### C BC, MG, GFR, ANEU, MDW, ADIFF, DIMER, TROPHS, LIP, CMP #### [address] [address] MGon 08-21-2023 Magnesium [Mass/Vol] 2.1 mg/dL Normal 1.8-2.4 [facility] ([place]) Comment on above: Performed By: #### C BC, MG, GFR, ANEU, MDW, ADIFF, DIMER, TROPHS, LIP, CMP #### [facility] [address] [address] Absolute lymphocyte countOrd ered By: Juan Diego Marks on 08-08-2023 Lymphocytes Auto (Unsp spec) [#/Vol] 1.62 10*3/uL 0.83-4.51 [facility] Basophil percentageOrdered B y: Juan Diego Marks on 08-08-2023 Basophils/100 WBC (Bld) 1.0 % 0-1 [facility] Chloride [Moles/Vol] 103 mmol/L 98-107 [facility] Eosinophils/100 WBC (Bld) 6.6 % 0-5 [facility] Glucose [Mass/Vol] 93 mg/dL 74-106 [facility] Neutrophils (Bld) [#/Vol] 1.8 10*3/uL 2.0-7.7 [facility] Neutrophils/100 WBC (Bld) 43.2 % 47-70 [facility] Potassium [Moles/Vol] 4.3 mmol/L 3.5-5.1 [facility] Sodium [Moles/Vol] 136 mmol/L 136-145 [facility] WBC (Bld) [#/Vol] 4.1 10*3/uL 4.4-11.0 [facility] Blood erythrocytes count (nu mber/volume)Ordered By: Juan Diego Marks on 08-08-2023 RBC (Bld) [#/Vol] 3.84 10*6/uL 4.2-5.4 [facility] [facility] Blood hemoglobin measurement (mass/volume)Ordered By: Juan Diego Marks on 08-08-2023 Hemoglobin (Bld) [Mass/Vol] 10.9 g/dL 12.0-15.0 [facility] Blood lymphocytes/100 leukoc ytesOrdered By: Juan Diego Marks on 08-08-2023 Lymphocytes/100 WBC (Bld) 39.3 % 19-41 [facility] Blood monocytes/100 leukocyt esOrdered By: Juan Diego Marks on 08-08-2023 Monocytes/100 WBC (Bld) 9.7 % 0-10 [facility] Blood platelet mean volumeOr dered By: Juan Diego Marks on 08-08-2023 Platelet mean volume (Bld) [Entitic vol] 9.2 fL 6.2-12.0 [facility] Determination of erythrocyte mean corpuscular volume (MCV)Ordered By: Juan Diego Marks on 08-08-2023 MCV (RBC) [Entitic vol] 89.6 fL 81-99 [facility] Hematocrit Auto (Bld) [Volum e fraction]Ordered By: Juan Diego Marks on 08-08-2023 Hematocrit (Bld) [Volume fraction] 34.4 % 37-47 [facility] Laboratory - Chemistry and C hemistry - challengeOrdered By: Juan Diego Kendrick 08-08-2023 CO2 [Moles/Vol] 32.0 mmol/L 21.0-32.0 [facility] Urea nitrogen/Creatinine [Mass ratio] 23.6 mg/mg 10-20 [facility] Laboratory - Hematology and Cell countsOrdered By: Juan Diego Marks 08-08-2023 Erythrocyte distribution width (RBC) [Entitic vol] 43.2 fL 35.1-43.9 [facility] Erythrocyte distribution width (RBC) [Ratio] 13.3 % 11.6-14.6 [facility] Immature granulocytes/100 WBC (Bld) 0.200 % 0.0-0.9 [facility] Comment on above: IG% - Immature Granu locytes (promyelocytes, myelocytes and metamyelocytes) > 1% indicates that a LEFT SHIFT is Present. MCH (RBC) [Entitic mass] 28.4 pg 27.0-32.0 [facility] Nucleated RBC/100 WBC (Bld) [Ratio] 0 % 0-5 [facility] MCHC Auto (RBC) [Mass/Vol]Or dered By: Juan Diego Marks on 08-08-2023 MCHC (RBC) [Mass/Vol] 31.7 g/dL 32-36 [facility] No Panel InformationOrdered By: Juan Diego Marks on 08-08-2023 Estimated Creatinine Clearance Calc 53.38 ml/min [facility] Estimated GFR (MDRD) Amer 88 mL/min >60 [facility] Comment on above: GFR Calc Estimated GFR (MDRD) Non-Af Amer 73 mL/min >60 [facility] Comment on above: Non- GFR Calc Platelets bldOrdered By: Juan Diego Marks on 08-08-2023 Platelets (Bld) [#/Vol] 291 10*3/uL 150-450 [facility] Serum or plasma calcium cindy urement (mass/volume)Ordered By: Juan Diego Marks on 08-08-2023 Calcium [Mass/Vol] 8.9 mg/dL 8.5-10.1 [facility] Serum or plasma creatinine m easurement (mass/volume)Ordered By: Juan Diego Marks on 08-08-2023 Creatinine [Mass/Vol] 0.80 mg/dL 0.55-1.02 [facility] Comment on above: The validity of the calculated GFR & GFRAA in patients over 70 years has not been determined. Clinical correlation is essential. Serum or plasma urea nitroge n measurement (mass/volume)Ordered By: Juan Diego Marks on 08-08-2023 Urea nitrogen [Mass/Vol] 19 mg/dL 7-18 [facility] Thin prep Papanicolaou smear with manual screeningOrdered By: Juan Diego Marks on 08-08-2023 Thin prep Papanicolaou smear with manual screening 1 5-15 [facility] Absolute lymphocyte countOrd ered By: Natalya Wright on 07-31-2023 Lymphocytes Auto (Unsp spec) [#/Vol] 1.03 10*3/uL 0.83-4.51 [facility] Basophil percentageOrdered B y: Natalya Wright on 07-31-2023 Basophils/100 WBC (Bld) 0.4 % 0-1 [facility] Chloride [Moles/Vol] 102 mmol/L 98-107 [facility] Eosinophils/100 WBC (Bld) 2.2 % 0-5 [facility] Glucose [Mass/Vol] 94 mg/dL 74-106 [facility] Neutrophils (Bld) [#/Vol] 3.3 10*3/uL 2.0-7.7 [facility] Neutrophils/100 WBC (Bld) 67.4 % 47-70 [facility] Potassium [Moles/Vol] 3.2 mmol/L 3.5-5.1 [facility] Sodium [Moles/Vol] 133 mmol/L 136-145 [facility] WBC (Bld) [#/Vol] 4.9 10*3/uL 4.4-11.0 [facility] Blood erythrocytes count (nu mber/volume)Ordered By: Natalya Wright on 07-31-2023 RBC (Bld) [#/Vol] 4.30 10*6/uL 4.2-5.4 [facility] Blood hemoglobin measurement (mass/volume)Ordered By: Natalya Wright on 07-31-2023 Hemoglobin (Bld) [Mass/Vol] 12.1 g/dL 12.0-15.0 [facility] Blood lymphocytes/100 leukoc ytesOrdered By: Natalya Wright on 07-31-2023 Lymphocytes/100 WBC (Bld) 21.0 % 19-41 [facility] Blood monocytes/100 leukocyt esOrdered By: Natalya Wright on 07-31-2023 Monocytes/100 WBC (Bld) 8.6 % 0-10 [facility] Blood platelet mean volumeOr dered By: Natalya Wright on 07-31-2023 Platelet mean volume (Bld) [Entitic vol] 9.8 fL 6.2-12.0 [facility] Determination of erythrocyte mean corpuscular volume (MCV)Ordered By: Natalya Wright on 07-31-2023 MCV (RBC) [Entitic vol] 84.7 fL 81-99 [facility] Comment on above: Delta: 80.0 on 07/28-0150 Hematocrit Auto (Bld) [Volum e fraction]Ordered By: Natalya Wright on 07-31-2023 Hematocrit (Bld) [Volume fraction] 36.4 % 37-47 [facility] Laboratory - Chemistry and C hemistry - challengeOrdered By: Natalya Wright on 07-31-2023 CO2 [Moles/Vol] 25.0 mmol/L 21.0-32.0 [facility] Urea nitrogen/Creatinine [Mass ratio] 13.2 mg/mg 10-20 [facility] Laboratory - Hematology and Cell countsOrdered By: Natalya Wright on 07-31-2023 Erythrocyte distribution width (RBC) [Entitic vol] 37.4 fL 35.1-43.9 [facility] Erythrocyte distribution width (RBC) [Ratio] 12.3 % 11.6-14.6 [facility] Immature granulocytes/100 WBC (Bld) 0.400 % 0.0-0.9 [facility] Comment on above: IG% - Immature Granu locytes (promyelocytes, myelocytes and metamyelocytes) > 1% indicates that a LEFT SHIFT is Present. MCH (RBC) [Entitic mass] 28.1 pg 27.0-32.0 [facility] Nucleated RBC/100 WBC (Bld) [Ratio] 0 % 0-5 [facility] MCHC Auto (RBC) [Mass/Vol]Or dered By: Natalya Wright on 07-31-2023 MCHC (RBC) [Mass/Vol] 33.2 g/dL 32-36 [facility] Comment on above: Delta: 35.7 on 07/28 No Panel InformationOrdered By: Natalya Wright on 07-31-2023 Estimated Creatinine Clearance Calc 41.05 ml/min [facility] Estimated GFR (MDRD) Amer 123 mL/min >60 [facility] Comment on above: GFR Calc Estimated GFR (MDRD) Non-Af Amer 101 mL/min >60 [facility] Comment on above: Non- GFR Calc Platelets bldOrdered By: Mao Wright on 07-31-2023 Platelets (Bld) [#/Vol] 274 10*3/uL 150-450 [facility] Serum or plasma calcium cindy urement (mass/volume)Ordered By: Natalya Wright on 07-31-2023 Calcium [Mass/Vol] 8.3 mg/dL 8.5-10.1 [facility] Serum or plasma creatinine m easurement (mass/volume)Ordered By: Natalya Wright on 07-31-2023 Creatinine [Mass/Vol] 0.60 mg/dL 0.55-1.02 [facility] Comment on above: The validity of the calculated GFR & GFRAA in patients over 70 years has not been determined. Clinical correlation is essential. Serum or plasma urea nitroge n measurement (mass/volume)Ordered By: Natalya Wright on 07-31-2023 Urea nitrogen [Mass/Vol] 8 mg/dL 7-18 [facility] Thin prep Papanicolaou smear with manual screeningOrdered By: Natalya Wright on 11-07-2023 Thin prep Papanicolaou smear with manual screening 6 5-15 [facility] Serum or plasma cortisol jyoti surement (mass/volume)Ordered By: Brooks Carcamo on 07-29-2023 Cortisol [Mass/Vol] 25.40 ug/dL 3.44-22.45 [facility] Comment on above: Adult (AM) 5.27 - 22 .45 ug/dL Adult (PM) 3.44 - 16.76 ug/dLPlease note revised CORTISOL reference range effective 2019. Basophil percentageOrdered B y: Madhavi Pate on 07-28-2023 Bilirubin [Mass/Vol] 0.60 mg/dL 0.20-1.00 [facility] Comment on above: For patients on eltr ombopag therapy, use of Dimension [place] TBIL is not recommended. Protein [Mass/Vol] 7.0 g/dL 6.4-8.2 [facility] LDH [Catalytic activity/Vol] 185 U/L 84-246 [facility] Blood manual differential co mment interpretation (narrative result)Ordered By: Madhavi Pate on 07-28-2023 Manual differential comment Michael (Bld) [Interp] SCANNED [facility] Comment on above: LYMPHOPENIA PRESENT Direct bilirubinOrdered By: Madhavi Pate on 07-28-2023 Bilirubin.direct [Mass/Vol] 0.19 mg/dL 0.00-0.30 [facility] Laboratory - Chemistry and C hemistry - challengeOrdered By: Madhavi Pate on 07-28-2023 Sodium (U) [Moles/Vol] 98 mmol/L Not Establ. [facility] ALP [Catalytic activity/Vol] 68 U/L 45-117 [facility] ALT [Catalytic activity/Vol] 23 U/L 13-56 [facility] Free T4 [Mass/Vol] 1.31 ng/dL 0.76-1.46 [facility] Globulin (S) [Mass/Vol] 3.2 g/dL 2.2-4.2 [facility] Magnesium [Mass/Vol] 2.1 mg/dL 1.6-2.6 [facility] CK [Catalytic activity/Vol] 229 U/L 26-192 [facility] Natriuretic peptide B (Bld) [Mass/Vol] 111.9 pg/mL 0-100 [facility] - Microbiology an d Antimicrobial susceptibilityOrdered By: Brooks Carcamo on 07-28-2023 SARS-CoV-2 (COVID-19) RNA YOLANDA+probe Ql (Unsp spec) SARS-CoV-2 (COVID 19 PCR) [facility] No Panel InformationOrdered By: Madhavi Pate on 07-28-2023 Thyroid Stimulating Hormone (TSH) 0.55 uIU/mL 0.358-3.74 [facility] D-Dimer Quantitative (PE/DVT) 0.68 FEU/ug/m 0.27-0.49 [facility] Comment on above: D-Dimer ELEVATED (>0 .49): Additional studies and clinicalassessments are indicated to conclude diagnosis of:Deep Vein Thrombosis (DVT) or Pulmonary Embolism (PE)CRITICAL VALUE VERIFIED. CALLED TO [id number] [id number] Costa Murillo.RESULTS READ BACK BY SAME. Troponin I High Sensitivity 28 pg/mL 3.0-54.0 [facility] Comment on above: Please Note: New Krysta t Units and Gender Specific Reference Ranges. For more information see Policy Stat Procedure [place] High Sensitivity Troponin (TNIH) and attachments. Serum or plasma C reactive p rotein measurement (mass/volume)Ordered By: Madhavi Rio on 07-28-2023 CRP [Mass/Vol] mg/L 0.0-3.0 [facility] Comment on above: C-Reactive Protein ( CRP) provides useful information for thediagnosis, therapy and monitoring of inflammatory processesand associated diseases. For the evaluation of Relative Riskfor Cardiovascular Disease, a High Sensitivity CRP (HSCRP)should be ordered. Serum or plasma albumin cindy urement (mass/volume)Ordered By: Madhavi Pate on 07-28-2023 Albumin [Mass/Vol] 3.8 g/dL 3.2-5.0 [facility] Serum or plasma ferritin jyoti surement (mass/volume)Ordered By: Madhavi Pate on 07-28-2023 Ferritin [Mass/Vol] 316 ng/mL 8-252 [facility] Serum procalcitonin measurem entOrdered By: Madhavi Pate on 07-28-2023 Procalcitonin [Mass/Vol] ng/mL 0.00-0.09 [facility] Comment on above: A procalcitonin (PCT [...] smear with manual screening 28 U/L 15-37 [facility] Urine creatinine measurement (mass/volume)Ordered By: Madhavi Pate on 07-28-2023 Creatinine (U) [Mass/Vol] 37.70 mg/dL NO RANGE EST. [facility] Urine osmolality measurement Ordered By: Madhavi Pate on 07-28-2023 Osmolality (U) [Osmolality] 366 mOsm/KG >50 [facility] Comment on above: Normal Urine Referen ce Ranges Random: 50 - 1200 mOsm/kg H20 depending on fluid intake Random: >850 mOsm/kg after 12 hour fluid restriction 24 hour: ~300 - 900 mOsm/kg H2O .Auto Diffon 07-27-2023 Basophil, Absolute 0.0 10 3/mcL Normal 0.0-0.2 [facility] ([place]) Comment on above: Performed By: #### C BC, MG, GFR, ANEU, MDW, ADIFF, DIMER, TROPHS, LIP, CMP #### [address] [address] Basophils/100 WBC (Bld) 0.4 % Normal 0.0-2.5 [facility] ([place]) Comment on above: Performed By: #### C BC, MG, GFR, ANEU, MDW, ADIFF, DIMER, TROPHS, LIP, CMP #### [address] [address] Eosinophil, Absolute 0.0 10 3/mcL Normal 0.0-0.4 [facility] ([place] Comment on above: Performed By: #### C BC, MG, GFR, ANEU, MDW, ADIFF, DIMER, TROPHS, LIP, CMP #### [address] [address] Eosinophils/100 WBC (Bld) 1.0 % Normal 0.0-7.0 [facility] ([place]) Comment on above: Performed By: #### C BC, MG, GFR, ANEU, MDW, ADIFF, DIMER, TROPHS, LIP, CMP #### [address] [address] Lymphocyte, Absolute 0.8 10 3/mcL Normal 0.8-3.9 [facility] ([place] Comment on above: Performed By: #### C BC, MG, GFR, ANEU, MDW, ADIFF, DIMER, TROPHS, LIP, CMP #### [address] [address] Lymphocytes/100 WBC (Bld) 21.7 % Normal 10.0-50.0 [facility] ([place] Comment on above: Performed By: #### C BC, MG, GFR, ANEU, MDW, ADIFF, DIMER, TROPHS, LIP, CMP #### [address] [address] Monocyte, Absolute 0.3 10 3/mcL Normal 0.2-1.0 [facility] ([place] Comment on above: Performed By: #### C BC, MG, GFR, ANEU, MDW, ADIFF, DIMER, TROPHS, LIP, CMP #### [address] [address] Monocytes/100 WBC (Bld) 8.9 % Normal 1.7-13.0 [facility] ([place] Comment on above: Performed By: #### C BC, MG, GFR, ANEU, MDW, ADIFF, DIMER, TROPHS, LIP, CMP #### [address] [address] Neutrophils/100 WBC (Bld) 68.0 % Normal 37.0-80.0 [facility] ([place] Comment on above: Performed By: #### C BC, MG, GFR, DAVID, JONATHAN, ADNELDA, DIMER, TROPHS, LIP, CMP #### [address] [address] .GFRon 07-27-2023 GFR Non- 65 ml/min/1.73sqm Normal [facility] ([place] Comment on above: Result Comment: GFR Population [...] JONATHAN, ADNELDA, DIMER, TROPHS, LIP, CMP #### [address] [address] GFR 79 ml/min/1.73sqm Normal [facility] ([place]) Comment on above: Result Comment: GFR Population [...] ADIFF, DIMER, TROPHS, LIP, CMP #### [address] [place], [place] [address] GFR Non- 53 ml/min/1.73sqm Normal [facility] ([place] Comment on above: Result Comment: GFR Population [...] MDW, ADIFF, DIMER, TROPHS, LIP, CMP ####[address] [address] GFR 65 ml/min/1.73sqm Normal [facility] ([place]) Comment on above: Result Comment: GFR Population [...] MDW, ADIFF, DIMER, TROPHS, LIP, CMP ####[address] [place], [place] [address] .MDWon 07-27-2023 Monocyte Distribution Width 18.25 Normal 0.00-20.00 [facility] ([place] Comment on above: Result Comment: For ED adult patients suspected of sepsis, MDW<=20.0 does not rule out sepsis or risk of sepsis Performed By: #### C BC, MG, GFR, ANEU, MDW, ADIFF, DIMER, TROPHS, LIP, CMP #### [address] [address] .NEUABSon 07-27-2023 Neutrophil, Absolute 2.6 10 3/mcL Low 2.9-6.2 [facility] ([place] Comment on above: Performed By: #### C BC, MG, GFR, ANEU, MDW, ADIFF, DIMER, TROPHS, LIP, CMP #### [address] [address] BMPon 07-27-2023 BUN/Creatinine Ratio 8 ratio Normal 7-27 [facility] ([place] Comment on above: Performed By: #### C BC, MG, GFR, ANEU, MDW, ADIFF, DIMER, TROPHS, LIP, CMP #### [address] [address] Calcium [Mass/Vol] 8.4 mg/dL Normal 8.4-10.2 [facility] ([place] Comment on above: Performed By: #### C BC, MG, GFR, ANEU, MDW, ADIFF, DIMER, TROPHS, LIP, CMP #### [address] [address] Chloride [Moles/Vol] 83 mmol/L Low 98-107 [facility] ([place] Comment on above: Performed By: #### C BC, MG, GFR, ANEU, MDW, ADIFF, DIMER, TROPHS, LIP, CMP #### [address] [address] CO2 [Moles/Vol] 25 mmol/L Normal 23-31 [facility] ([place] Comment on above: Performed By: #### C BC, MG, GFR, ANEU, MDW, ADIFF, DIMER, TROPHS, LIP, CMP #### [address] [address] Creatinine [Mass/Vol] 0.84 mg/dL Normal 0.55-1.02 [facility] ([place]) Comment on above: Performed By: #### C BC, MG, GFR, ANEU, MDW, ADIFF, DIMER, TROPHS, LIP, CMP #### [address] [address] Electrolyte Balance 11.0 mEq/L Normal 4.0-15.0 [facility] ([place] Comment on above: Performed By: #### C BC, MG, GFR, ANEU, MDW, ADIFF, DIMER, TROPHS, LIP, CMP #### [address] [address] Glucose [Mass/Vol] 133 mg/dL High 83-110 [facility] ([place] Comment on above: Performed By: #### C BC, MG, GFR, ANEU, MDW, ADIFF, DIMER, TROPHS, LIP, CMP #### [address] [address] Potassium [Moles/Vol] 3.4 mmol/L Low 3.5-5.1 [facility] ([place] Comment on above: Performed By: #### C BC, MG, GFR, ANEU, MDW, ADIFF, DIMER, TROPHS, LIP, CMP #### [address] [address] Sodium [Moles/Vol] 119 mmol/L Critically abnormal 136-145 [facility] ([place] Comment on above: Performed By: #### C BC, MG, GFR, ANEU, MDW, ADIFF, DIMER, TROPHS, LIP, CMP #### [address] [address] Urea nitrogen [Mass/Vol] 7 mg/dL Normal 7-18 [facility] ([place] Comment on above: Performed By: #### C BC, MG, GFR, ANEU, MDW, ADIFF, DIMER, TROPHS, LIP, CMP #### [place] [id number] CBCon 07-27-2023 Erythrocyte distribution width (RBC) [Ratio] 12.8 % Normal 11.5-14.5 [facility] ([place] Comment on above: Performed By: #### C BC, MG, GFR, ANEU, MDW, ADIFF, DIMER, TROPHS, LIP, CMP #### [place] [address] Hematocrit (Bld) [Volume fraction] 37.5 % Normal 37.0-47.0 [facility] ([place] Comment on above: Performed By: #### C BC, MG, GFR, ANEU, MDW, ADIFF, DIMER, TROPHS, LIP, CMP #### [place] [address] Hgb 13.3 G/dL Normal 12.0-16.0 [facility] ([place] Comment on above: Performed By: #### C BC, MG, GFR, ANEU, MDW, ADIFF, DIMER, TROPHS, LIP, CMP #### [place] [address] MCH (RBC) [Entitic mass] 28.6 pg Normal 27.0-31.2 [facility] ([place] Comment on above: Performed By: #### C BC, MG, GFR, ANEU, MDW, ADIFF, DIMER, TROPHS, LIP, CMP #### [place] [address] MCHC 35.4 G/dL Normal 33.0-37.0 [facility] ([place] Comment on above: Performed By: #### C BC, MG, GFR, ANEU, MDW, ADIFF, DIMER, TROPHS, LIP, CMP #### [place] [address] MCV (RBC) [Entitic vol] 80.7 fL Normal 80.0-94.0 [facility] ([place] Comment on above: Performed By: #### C BC, MG, GFR, ANEU, MDW, ADIFF, DIMER, TROPHS, LIP, CMP #### [address] [address] Platelet 282 10 3/mcL Normal 130-400 [facility] ([place] Comment on above: Performed By: #### C BC, MG, GFR, ANEU, MDW, ADIFF, DIMER, TROPHS, LIP, CMP #### [address] [address] Platelet mean volume (Bld) [Entitic vol] 6.7 fL Low 7.4-10.4 [facility] ([place] Comment on above: Performed By: #### C BC, MG, GFR, ANEU, MDW, ADIFF, DIMER, TROPHS, LIP, CMP #### [address] [address] RBC 4.64 10 6/mcL Normal 4.20-5.40 [facility] ([place] Comment on above: Performed By: #### C BC, MG, GFR, ANEU, MDW, ADIFF, DIMER, TROPHS, LIP, CMP #### [address] [address] WBC 3.8 10 3/mcL Low 4.6-10.8 [facility] ([place] Comment on above: Performed By: #### C BC, MG, GFR, ANEU, MDW, ADIFF, DIMER, TROPHS, LIP, CMP #### [address] [address] CMPon 07-27-2023 Albumin Level 4.2 G/dL Normal 3.4-4.8 [facility] ([place] Comment on above: Performed By: #### C BC, MG, GFR, ANEU, MDW, ADIFF, DIMER, TROPHS, LIP, CMP ####[address] [address] Albumin/Globulin [Mass ratio] 1.4 {ratio} Normal 1.1-2.5 [facility] ([place] Comment on above: Performed By: #### C BC, MG, GFR, ANEU, MDW, ADIFF, DIMER, TROPHS, LIP, CMP ####[address] [address] ALP [Catalytic activity/Vol] 78 U/L Normal 40-135 [facility] ([place] Comment on above: Performed By: #### C BC, MG, GFR, ANEU, MDW, ADIFF, DIMER, TROPHS, LIP, CMP ####[address] [place], [place] [address] ALT [Catalytic activity/Vol] 19 U/L Normal 14-59 [facility] ([place] Comment on above: Performed By: #### C BC, MG, GFR, ANEU, MDW, ADIFF, DIMER, TROPHS, LIP, CMP ####[address] [place], [place] [address] AST [Catalytic activity/Vol] 21 U/L Normal 10-40 [facility] ([place] Comment on above: Performed By: #### C BC, MG, GFR, ANEU, MDW, ADIFF, DIMER, TROPHS, LIP, CMP ####[address] [place], [place] [address] Bili Total 0.6 mg/dL Normal 0.2-1.0 [facility] ([place] Comment on above: Result Comment: Use of this assay is not recommended for patients undergoing treatment with eltrombopag due to the potential for falsely elevated results. Performed By: #### C BC, MG, GFR, ANEU, MDW, ADIFF, DIMER, TROPHS, LIP, CMP ####[address] [place], [place] [address] BUN/Creatinine Ratio 7 ratio Normal 7-27 [facility] ([place] Comment on above: Performed By: #### C BC, MG, GFR, ANEU, MDW, ADIFF, DIMER, TROPHS, LIP, CMP ####[address] [place] [id number] Calcium [Mass/Vol] 9.1 mg/dL Normal 8.4-10.2 [facility] ([place] Comment on above: Performed By: #### C BC, MG, GFR, ANEU, MDW, ADIFF, DIMER, TROPHS, LIP, CMP ####[address] [place], [place] [address] Chloride [Moles/Vol] 82 mmol/L Low 98-107 [facility] ([place] Comment on above: Performed By: #### C BC, MG, GFR, ANEU, MDW, ADIFF, DIMER, TROPHS, LIP, CMP ####[address] [place], [place] [address] CO2 [Moles/Vol] 24 mmol/L Normal 23-31 [facility] ([place] Comment on above: Performed By: #### C BC, MG, GFR, ANEU, MDW, ADIFF, DIMER, TROPHS, LIP, CMP ####[address] [place], [place] [address] Creatinine [Mass/Vol] 1.00 mg/dL Normal 0.55-1.02 [facility] ([place] Comment on above: Performed By: #### C BC, MG, GFR, ANEU, MDW, ADIFF, DIMER, TROPHS, LIP, CMP ####[address] [place], [place] [address] Electrolyte Balance 13.0 mEq/L Normal 4.0-15.0 [facility] ([place] Comment on above: Performed By: #### C BC, MG, GFR, ANEU, MDW, ADIFF, DIMER, TROPHS, LIP, CMP ####[address] [place], [place] [address] Globulin 2.9 G/dL Normal [facility] ([place] Comment on above: Performed By: #### C BC, MG, GFR, ANEU, MDW, ADIFF, DIMER, TROPHS, LIP, CMP ####[address] [place], [place] [address] Glucose [Mass/Vol] 133 mg/dL High 83-110 [facility] ([place] Comment on above: Performed By: #### C BC, MG, GFR, ANEU, MDW, ADIFF, DIMER, TROPHS, LIP, CMP ####[address] [place], [place] [address] Potassium [Moles/Vol] 3.5 mmol/L Normal 3.5-5.1 [facility] ([place] Comment on above: Performed By: #### C BC, MG, GFR, ANEU, MDW, ADIFF, DIMER, TROPHS, LIP, CMP ####[address] [place], [place] [address] Sodium [Moles/Vol] 119 mmol/L Critically abnormal 136-145 [facility]) Comment on above: Performed By: #### C BC, MG, GFR, ANEU, MDW, ADIFF, DIMER, TROPHS, LIP, CMP ####[address] [place], [place] [address] Total Protein 7.1 G/dL Normal 6.4-8.2 [facility]) Comment on above: Performed By: #### C BC, MG, GFR, ANEU, MDW, ADIFF, DIMER, TROPHS, LIP, CMP ####[address] [place], [place] [address] Urea nitrogen [Mass/Vol] 7 mg/dL Normal 7-18 [facility]) Comment on above: Performed By: #### C BC, MG, GFR, ANEU, MDW, ADIFF, DIMER, TROPHS, LIP, CMP ####[facility] [place], [place] [address] DIMERon 07-27-2023 D-Dimer 287 ng/mL D-DU High 0-230 [facility]) Comment on above: Result Comment: Resu lts [...] ADIFF, DIMER, TROPHS, LIP, CMP #### [address] [place] [id number] [place], [place] [address] LABORATORYOrdered By: SYSTEM SYSTEM on 07-27-2023 Calcium [...] Comment: Crit ical NA cvrb Vin Rn 6041 Troponin I.cardiac DL <= 0.01 ng/mL [Mass/Vol] [...] 07-27-2023 Lipase Level 33 U/L Normal 16-77 [facility] ([place]) Comment on above: Performed By: #### C BC, MG, GFR, ANEU, MDW, ADIFF, DIMER, TROPHS, LIP, CMP #### [place] [address] MGon 07-27-2023 Magnesium [Mass/Vol] 1.4 mg/dL Low 1.8-2.4 [facility]) Comment on above: Performed By: #### C BC, MG, GFR, ANEU, MDW, ADIFF, DIMER, TROPHS, LIP, CMP #### [place] [address] TROPHSon 07-27-2023 Troponin I High Sensitivity 15.6 ng/L Normal 0.0-51.4 [facility] ([place] Comment on above: Performed By: #### C BC, MG, GFR, ANEU, MDW, ADIFF, DIMER, TROPHS, LIP, CMP #### [place] [address] Troponin I High Sensitivity 10.8 ng/L Normal 0.0-51.4 [facility] ([place]) Comment on above: Performed By: #### C BC, MG, GFR, ANEU, MDW, ADIFF, DIMER, TROPHS, LIP, CMP #### [place] [id number] XR CHEST 2 VIEWSon XR CHEST 2 VIEWS ORIGINAL EXAMINATION: TWO [...] 07/27/2023 8:42:35 PM Ordering Provider: RASHEL Horan [facility] ([place]) .Auto Diffon 07-26-2023 Basophil, Absolute 0.0 10 3/mcL Normal 0.0-0.2 [facility] ([place] Comment on above: Performed By: #### C BC, MG, GFR, ANEU, MDW, ADIFF, DIMER, TROPHS, LIP, CMP #### [address] [address] Basophils/100 WBC (Bld) 0.2 % Normal 0.0-2.5 [facility] ([place]) Comment on above: Performed By: #### C BC, MG, GFR, ANEU, MDW, ADIFF, DIMER, TROPHS, LIP, CMP #### [address] [address] Eosinophil, Absolute 0.1 10 3/mcL Normal 0.0-0.4 [facility] ([place]) Comment on above: Performed By: #### C BC, MG, GFR, ANEU, MDW, ADIFF, DIMER, TROPHS, LIP, CMP #### [address] [address] Eosinophils/100 WBC (Bld) 3.1 % Normal 0.0-7.0 [facility] ([place] Comment on above: Performed By: #### C BC, MG, GFR, ANEU, MDW, ADIFF, DIMER, TROPHS, LIP, CMP #### [address] [address] Lymphocyte, Absolute 1.2 10 3/mcL Normal 0.8-3.9 [facility] ([place]) Comment on above: Performed By: #### C BC, MG, GFR, ANEU, MDW, ADIFF, DIMER, TROPHS, LIP, CMP #### [address] [address] Lymphocytes/100 WBC (Bld) 36.0 % Normal 10.0-50.0 [facility] ([place] Comment on above: Performed By: #### C BC, MG, GFR, ANEU, MDW, ADIFF, DIMER, TROPHS, LIP, CMP #### [address] [address] Monocyte, Absolute 0.3 10 3/mcL Normal 0.2-1.0 [facility] ([place] Comment on above: Performed By: #### C BC, MG, GFR, ANEU, MDW, ADIFF, DIMER, TROPHS, LIP, CMP #### [address] [address] Monocytes/100 WBC (Bld) 10.6 % Normal 1.7-13.0 [facility] ([place] Comment on above: Performed By: #### C BC, MG, GFR, ANEU, MDW, ADIFF, DIMER, TROPHS, LIP, CMP #### [address] [address] Neutrophils/100 WBC (Bld) 50.1 % Normal 37.0-80.0 [facility] ([place] Comment on above: Performed By: #### C BC, MG, GFR, ANEU, MDW, ADIFF, DIMER, TROPHS, LIP, CMP #### [address] [address] .GFRon 07-26-2023 GFR 75 ml/min/1.73sqm Normal [facility] ([place] Comment on above: Result Comment: GFR Population [...] MDW, ADIFF, DIMER, TROPHS, LIP, CMP #### [address] [address] GFR Non- 62 ml/min/1.73sqm Normal [facility] ([place] Comment on above: Result Comment: GFR Population [...] MDW, ADIFF, DIMER, TROPHS, LIP, CMP #### [address] [address] .MDWon 07-26-2023 Monocyte Distribution Width 19.85 Normal 0.00-20.00 [facility] ([place] Comment on above: Result Comment: For ED adult patients suspected of sepsis, MDW<=20.0 does not rule out sepsis or risk of sepsis Performed By: #### C BC, MG, GFR, ANEU, MDW, ADIFF, DIMER, TROPHS, LIP, CMP #### [address] [address] .NEUABSon 07-26-2023 Neutrophil, Absolute 1.6 10 3/mcL Low 2.9-6.2 [facility] ([place]) Comment on above: Performed By: #### C BC, MG, GFR, ANEU, MDW, ADIFF, DIMER, TROPHS, LIP, CMP #### [address] [address] BMPon 07-26-2023 BUN/Creatinine Ratio 10 ratio Normal 7-27 [facility] ([place] Comment on above: Performed By: #### C BC, MG, GFR, ANEU, MDW, ADIFF, DIMER, TROPHS, LIP, CMP #### [address] [address] Calcium [Mass/Vol] 8.8 mg/dL Normal 8.4-10.2 [facility] ([place]) Comment on above: Performed By: #### C BC, MG, GFR, ANEU, MDW, ADIFF, DIMER, TROPHS, LIP, CMP #### [address] [address] Chloride [Moles/Vol] 90 mmol/L Low 98-107 [facility] ([place] Comment on above: Performed By: #### C BC, MG, GFR, ANEU, MDW, ADIFF, DIMER, TROPHS, LIP, CMP #### [address] [address] CO2 [Moles/Vol] 27 mmol/L Normal 23-31 [facility] ([place] Comment on above: Performed By: #### C BC, MG, GFR, ANEU, MDW, ADIFF, DIMER, TROPHS, LIP, CMP #### [address] [address] Creatinine [Mass/Vol] 0.88 mg/dL Normal 0.55-1.02 [facility] ([place]) Comment on above: Performed By: #### C BC, MG, GFR, ANEU, MDW, ADIFF, DIMER, TROPHS, LIP, CMP #### [address] [address] Electrolyte Balance 10.0 mEq/L Normal 4.0-15.0 [facility] ([place] Comment on above: Performed By: #### C BC, MG, GFR, ANEU, MDW, ADIFF, DIMER, TROPHS, LIP, CMP #### [address] [address] Glucose [Mass/Vol] 115 mg/dL High 83-110 [facility] ([place]) Comment on above: Performed By: #### C BC, MG, GFR, ANEU, MDW, ADIFF, DIMER, TROPHS, LIP, CMP #### [address] [address] Potassium [Moles/Vol] 3.7 mmol/L Normal 3.5-5.1 [facility] ([place]) Comment on above: Performed By: #### C BC, MG, GFR, ANEU, MDW, ADIFF, DIMER, TROPHS, LIP, CMP #### [address] [address] Sodium [Moles/Vol] 127 mmol/L Low 136-145 [facility] [place] Comment on above: Performed By: #### C BC, MG, GFR, ANEU, MDW, ADIFF, DIMER, TROPHS, LIP, CMP #### [address] [address] Urea nitrogen [Mass/Vol] 9 mg/dL Normal 7-18 [facility] [place] Comment on above: Performed By: #### C BC, MG, GFR, ANEU, MDW, ADIFF, DIMER, TROPHS, LIP, CMP #### [address] [address] CBCon 07-26-2023 Erythrocyte distribution width (RBC) [Ratio] 12.9 % Normal 11.5-14.5 [facility] [place] Comment on above: Performed By: #### C BC, MG, GFR, ANEU, MDW, ADIFF, DIMER, TROPHS, LIP, CMP #### [address] [address] Hematocrit (Bld) [Volume fraction] 37.4 % Normal 37.0-47.0 [facility] ([place] Comment on above: Performed By: #### C BC, MG, GFR, ANEU, MDW, ADIFF, DIMER, TROPHS, LIP, CMP #### [place] [address] Hgb 13.0 G/dL Normal 12.0-16.0 [facility] ([place]) Comment on above: Performed By: #### C BC, MG, GFR, ANEU, MDW, ADIFF, DIMER, TROPHS, LIP, CMP #### [place] [address] MCH (RBC) [Entitic mass] 28.5 pg Normal 27.0-31.2 [facility] ([place]) Comment on above: Performed By: #### C BC, MG, GFR, ANEU, MDW, ADIFF, DIMER, TROPHS, LIP, CMP #### [place] [address] MCHC 34.7 G/dL Normal 33.0-37.0 [facility] ([place] Comment on above: Performed By: #### C BC, MG, GFR, ANEU, MDW, ADIFF, DIMER, TROPHS, LIP, CMP #### [address] [address] MCV (RBC) [Entitic vol] 81.9 fL Normal 80.0-94.0 [facility] ([place]) Comment on above: Performed By: #### C BC, MG, GFR, ANEU, MDW, ADIFF, DIMER, TROPHS, LIP, CMP #### [place] [address] Platelet 241 10 3/mcL Normal 130-400 [facility] ([place]) Comment on above: Performed By: #### C BC, MG, GFR, ANEU, MDW, ADIFF, DIMER, TROPHS, LIP, CMP #### [place] [address] Platelet mean volume (Bld) [Entitic vol] 6.6 fL Low 7.4-10.4 [facility] ([place]) Comment on above: Performed By: #### C BC, MG, GFR, ANEU, MDW, ADIFF, DIMER, TROPHS, LIP, CMP #### [address] [address] RBC 4.56 10 6/mcL Normal 4.20-5.40 [facility] ([place]) Comment on above: Performed By: #### C BC, MG, GFR, ANEU, MDW, ADIFF, DIMER, TROPHS, LIP, CMP #### [address] [address] WBC 3.3 10 3/mcL Low 4.6-10.8 [facility] ([place]) Comment on above: Performed By: #### C BC, MG, GFR, ANEU, MDW, ADIFF, DIMER, TROPHS, LIP, CMP #### [address] [address] [id number] 07-24-2023 SARS-CoV-2 (COVID-19) RNA YOLANDA+probe Ql (Unsp spec) Positive Abnormal Negative [facility] ([place]) Comment on above: Performed By: #### C BC, MG, GFR, ANEU, MDW, ADIFF, DIMER, TROPHS, LIP, CMP #### [address] [address] SARS-CoV-2 (COVID-19) RNA YOLANDA+probe Ql (Unsp spec) Normal [facility] ([place]) Comment on above: Result Comment: Posi tive results are indicative of the presence of SARS-CoV-2 RNA; clinical correlation with patient history and other diagnostic information is necessary to determine patient infection status. Positive results do not rule out bacterial infection or co-infection with other viruses. The agent detected may not be the definite cause of disease. Laboratories within the [facility] and its territories are required to report [...] MDW, ADIFF, DIMER, TROPHS, LIP, CMP #### [address] [address] FLURSVon 07-24-2023 Flu A PCR (AO) Negative Normal Negative [facility] ([place]) Comment on above: Result Comment: Posi [...] virus (RSV) nucleic acid in nasopharyngeal swab (PATIENT SCHEDULING MANAGER) specimens from patients with signs and symptoms [...] ADIFF, DIMER, TROPHS, LIP, CMP #### [address] [address] Flu B PCR (AO) Negative Normal Negative [facility] ([place]) Comment on above: Result Comment: Posi tive [...] virus (RSV) nucleic acid in nasopharyngeal swab (PATIENT SCHEDULING MANAGER) specimens from patients with signs and symptoms [...] MDW, ADIFF, DIMER, TROPHS, LIP, CMP #### [address] [address] RSV PCR (AO) Negative Normal Negative [facility] ([place]) Comment on above: Result Comment: Posi tive [...] virus (RSV) nucleic acid in nasopharyngeal swab (PATIENT SCHEDULING MANAGER) specimens from patients with signs and symptoms [...] ADIFF, DIMER, TROPHS, LIP, CMP #### [address] [place] [id number] [place] [address] LABORATORYOrdered By: Marbella Lema on 07-24-2023 FLUAV [...] virus (RSV) nucleic acid in nasopharyngeal swab (PATIENT SCHEDULING MANAGER) specimens from patients with signs and symptoms [...] virus (RSV) nucleic acid in nasopharyngeal swab (PATIENT SCHEDULING MANAGER) specimens from patients with signs and symptoms [...] virus (RSV) nucleic acid in nasopharyngeal swab (PATIENT SCHEDULING MANAGER) specimens from patients with signs and symptoms [...] definite cause of disease. Laboratories within the [facility] and its territories are required to report all positive results to the appropriate public health authorities.Detection of analyte target(s) does not imply that the corresponding virus(es) are infectious or are the causative agents for clinical symptoms.There is a risk of false positive values resulting from cross-contamination by target organisms, their nucleic acids or amplified product, or from non-specific signals in the assay.[employer] SARS-CoV-2 Assay is a Real-Time reverse-transcriptase polymerase [...] .GFRon 07-16-2023 GFR Non- 60 ml/min/1.73sqm Normal [facility] ([place]) Comment on above: Result Comment: GFR Population [...] MDW, ADIFF, DIMER, TROPHS, LIP, CMP #### [address] [address] GFR 73 ml/min/1.73sqm Normal [facility] ([place]) Comment on above: Result Comment: GFR Population [...] MDW, ADIFF, DIMER, TROPHS, LIP, CMP #### [address] [address] CMPon 07-16-2023 Albumin Level 2.6 G/dL Low 3.4-4.8 [facility] ([place]) Comment on above: Performed By: #### C BC, MG, GFR, ANEU, MDW, ADIFF, DIMER, TROPHS, LIP, CMP #### [address] [address] Albumin/Globulin [Mass ratio] 0.6 {ratio} Low 1.1-2.5 [facility] ([place]) Comment on above: Performed By: #### C BC, MG, GFR, ANEU, MDW, ADIFF, DIMER, TROPHS, LIP, CMP #### [address] [address] ALP [Catalytic activity/Vol] 82 U/L Normal 40-135 [facility] ([place]) Comment on above: Performed By: #### C BC, MG, GFR, ANEU, MDW, ADIFF, DIMER, TROPHS, LIP, CMP #### [address] [address] ALT [Catalytic activity/Vol] 21 U/L Normal 14-59 [facility] ([place]) Comment on above: Performed By: #### C BC, MG, GFR, ANEU, MDW, ADIFF, DIMER, TROPHS, LIP, CMP #### [address] [address] AST [Catalytic activity/Vol] 17 U/L Normal 10-40 [facility] ([place]) Comment on above: Performed By: #### C BC, MG, GFR, ANEU, MDW, ADIFF, DIMER, TROPHS, LIP, CMP #### [address] [address] Bili Total 0.3 mg/dL Normal 0.2-1.0 [facility] ([place]) Comment on above: Result Comment: Use of this assay is not recommended for patients undergoing treatment with eltrombopag due to the potential for falsely elevated results. Performed By: #### C BC, MG, GFR, ANEU, MDW, ADIFF, DIMER, TROPHS, LIP, CMP #### [address] [address] BUN/Creatinine Ratio 9 ratio Normal 7-27 [facility] ([place]) Comment on above: Performed By: #### C BC, MG, GFR, ANEU, MDW, ADIFF, DIMER, TROPHS, LIP, CMP #### [address] [address] Calcium [Mass/Vol] 9.0 mg/dL Normal 8.4-10.2 [facility] ([place]) Comment on above: Performed By: #### C BC, MG, GFR, ANEU, MDW, ADIFF, DIMER, TROPHS, LIP, CMP #### [address] [address] Chloride [Moles/Vol] 95 mmol/L Low 98-107 [facility] ([place]) Comment on above: Performed By: #### C BC, MG, GFR, ANEU, MDW, ADIFF, DIMER, TROPHS, LIP, CMP #### [address] [address] CO2 [Moles/Vol] 30 mmol/L Normal 23-31 [facility] ([place]) Comment on above: Performed By: #### C BC, MG, GFR, ANEU, MDW, ADIFF, DIMER, TROPHS, LIP, CMP #### [place] [id number] Creatinine [Mass/Vol] 0.90 mg/dL Normal 0.55-1.02 [facility] ([place]) Comment on above: Performed By: #### C BC, MG, GFR, ANEU, MDW, ADIFF, DIMER, TROPHS, LIP, CMP #### [place] [address] Electrolyte Balance 9.0 mEq/L Normal 4.0-15.0 [facility] ([place]) Comment on above: Performed By: #### C BC, MG, GFR, ANEU, MDW, ADIFF, DIMER, TROPHS, LIP, CMP #### [place] [address] Globulin 4.5 G/dL Normal [facility] ([place]) Comment on above: Performed By: #### C BC, MG, GFR, ANEU, MDW, ADIFF, DIMER, TROPHS, LIP, CMP #### [place] [address] Glucose [Mass/Vol] 108 mg/dL Normal 83-110 [facility] ([place]) Comment on above: Performed By: #### C BC, MG, GFR, ANEU, MDW, ADIFF, DIMER, TROPHS, LIP, CMP #### [place] [address] Potassium [Moles/Vol] 4.7 mmol/L Normal 3.5-5.1 [facility] ([place]) Comment on above: Performed By: #### C BC, MG, GFR, ANEU, MDW, ADIFF, DIMER, TROPHS, LIP, CMP #### [address] [address] Sodium [Moles/Vol] 134 mmol/L Low 136-145 [facility] ([place]) Comment on above: Performed By: #### C BC, MG, GFR, ANEU, MDW, ADIFF, DIMER, TROPHS, LIP, CMP #### [place] [address] [place], [place] [address] Total Protein 7.1 G/dL Normal 6.4-8.2 [facility] ([place]) Comment on above: Performed By: #### C BC, MG, GFR, ANEU, MDW, ADIFF, DIMER, TROPHS, LIP, CMP #### [place] [address] [place], [place] [address] Urea nitrogen [Mass/Vol] 8 mg/dL Normal 7-18 [facility] ([place] Comment on above: Performed By: #### C BC, MG, GFR, ANEU, MDW, ADIFF, DIMER, TROPHS, LIP, CMP #### [place] [address] [place], [place] [address] LABORATORYOrdered By: SYSTEM SYSTEM on 07-16-2023 Albumin [...] SS .GFRon 07-03-2023 GFR 65 ml/min/1.73sqm Normal [facility] ([place]) Comment on above: Result Comment: GFR Population [...] LIPID, VIDH, CMP, GFR, FT4, TSH ####[id number] [place], [place] [address]#### B12 ####[address] [address] GFR Non- 53 ml/min/1.73sqm Normal [facility] ([place]) Comment on above: Result Comment: GFR Population [...] FT3, LIPID, VIDH, CMP, GFR, FT4, TSH ####[address] [address]#### B12 ####[address] [address] B12on 07-03-2023 Cobalamin (Vitamin B12) [Mass/Vol] 711 pg/mL Normal 211-911 [facility] ([place] Comment on above: Performed By: #### C BC, MG, GFR, ANEU, MDW, ADIFF, DIMER, TROPHS, LIP, CMP #### [address] [address] CMPon 07-03-2023 Albumin Level 4.1 G/dL Normal 3.4-4.8 [facility] ([place]) Comment on above: Performed By: #### C BC, MG, GFR, ANEU, MDW, ADIFF, DIMER, TROPHS, LIP, CMP #### [address] [address] Albumin/Globulin [Mass ratio] 1.3 {ratio} Normal 1.1-2.5 [facility] ([place] Comment on above: Performed By: #### C BC, MG, GFR, ANEU, MDW, ADIFF, DIMER, TROPHS, LIP, CMP #### [address] [address] ALP [Catalytic activity/Vol] 78 U/L Normal 40-135 [facility] ([place]) Comment on above: Performed By: #### C BC, MG, GFR, ANEU, MDW, ADIFF, DIMER, TROPHS, LIP, CMP #### [address] [address] ALT [Catalytic activity/Vol] 23 U/L Normal 14-59 [facility] ([place]) Comment on above: Performed By: #### C BC, MG, GFR, ANEU, MDW, ADIFF, DIMER, TROPHS, LIP, CMP #### [address] [address] AST [Catalytic activity/Vol] 20 U/L Normal 10-40 [facility] ([place]) Comment on above: Performed By: #### C BC, MG, GFR, ANEU, MDW, ADIFF, DIMER, TROPHS, LIP, CMP #### [address] [address] Bili Total 0.5 mg/dL Normal 0.2-1.0 [facility] ([place]) Comment on above: Result Comment: Use of this assay is not recommended for patients undergoing treatment with eltrombopag due to the potential for falsely elevated results. Performed By: #### C BC, MG, GFR, ANEU, MDW, ADIFF, DIMER, TROPHS, LIP, CMP #### [address] [address] BUN/Creatinine Ratio 13 ratio Normal 7-27 [facility] ([place] Comment on above: Performed By: #### C BC, MG, GFR, ANEU, MDW, ADIFF, DIMER, TROPHS, LIP, CMP #### [address] [address] Calcium [Mass/Vol] 9.3 mg/dL Normal 8.4-10.2 [facility] ([place] Comment on above: Performed By: #### C BC, MG, GFR, ANEU, MDW, ADIFF, DIMER, TROPHS, LIP, CMP #### [address] [address] Chloride [Moles/Vol] 94 mmol/L Low 98-107 [facility] ([place] Comment on above: Performed By: #### C BC, MG, GFR, ANEU, MDW, ADIFF, DIMER, TROPHS, LIP, CMP #### [address] [address] CO2 [Moles/Vol] 32 mmol/L High 23-31 [facility] ([place] Comment on above: Performed By: #### C BC, MG, GFR, ANEU, MDW, ADIFF, DIMER, TROPHS, LIP, CMP #### [address] [address] Creatinine [Mass/Vol] 1.00 mg/dL Normal 0.55-1.02 [facility] ([place]) Comment on above: Performed By: #### C BC, MG, GFR, ANEU, MDW, ADIFF, DIMER, TROPHS, LIP, CMP #### [address] [address] Electrolyte Balance 6.0 mEq/L Normal 4.0-15.0 [facility] ([place] Comment on above: Performed By: #### C BC, MG, GFR, ANEU, MDW, ADIFF, DIMER, TROPHS, LIP, CMP #### [address] [address] Globulin 3.1 G/dL Normal [facility] ([place]) Comment on above: Performed By: #### C BC, MG, GFR, ANEU, MDW, ADIFF, DIMER, TROPHS, LIP, CMP #### [address] [address] Glucose [Mass/Vol] 96 mg/dL Normal 83-110 [facility] ([place]) Comment on above: Performed By: #### C BC, MG, GFR, ANEU, MDW, ADIFF, DIMER, TROPHS, LIP, CMP #### [address] [address] Potassium [Moles/Vol] 4.4 mmol/L Normal 3.5-5.1 [facility] ([place]) Comment on above: Performed By: #### C BC, MG, GFR, ANEU, MDW, ADIFF, DIMER, TROPHS, LIP, CMP #### [address] [address] Sodium [Moles/Vol] 132 mmol/L Low 136-145 [facility] ([place]) Comment on above: Performed By: #### C BC, MG, GFR, ANEU, MDW, ADIFF, DIMER, TROPHS, LIP, CMP #### [address] [address] Total Protein 7.2 G/dL Normal 6.4-8.2 [facility] ([place]) Comment on above: Performed By: #### C BC, MG, GFR, ANEU, MDW, ADIFF, DIMER, TROPHS, LIP, CMP #### [address] [address] Urea nitrogen [Mass/Vol] 13 mg/dL Normal 7-18 [facility] ([place]) Comment on above: Performed By: #### C BC, MG, GFR, ANEU, MDW, ADIFF, DIMER, TROPHS, LIP, CMP #### [address] [address] FT3on 07-03-2023 Free T3 [Mass/Vol] 2.76 pg/mL Normal 2.30-4.00 [facility] ([place]) Comment on above: Performed By: #### M G, FT3, LIPID, VIDH, CMP, GFR, FT4, TSH ####[place] [address]#### B12 ####[place] [address] FT4on 07-03-2023 Free T4 [Mass/Vol] 1.21 ng/dL Normal 0.76-1.46 [facility] ([place]) Comment on above: Performed By: #### M G, FT3, LIPID, VIDH, CMP, GFR, FT4, TSH ####[place] [address]#### B12 ####[place] [address] LIPIDon 07-03-2023 Cholesterol [Mass/Vol] 265 mg/dL High 0-200 [facility] ([place]) Comment on above: Result Comment: Chol esterol Reference Interval: Less than 200 Desirable 200-239 Borderline high risk 240 and above High risk Performed By: #### C BC, MG, GFR, ANEU, MDW, ADIFF, DIMER, TROPHS, LIP, CMP #### [address] [address] Cholesterol in HDL [Mass/Vol] 89 mg/dL High 40-60 [facility] ([place] Comment on above: Performed By: #### C BC, MG, GFR, ANEU, MDW, ADIFF, DIMER, TROPHS, LIP, CMP #### [address] [address] Cholesterol in LDL [Mass/Vol] 167 mg/dL High 0-130 [facility] ([place] Comment on above: Performed By: #### C BC, MG, GFR, DAVID, W, ADIFF, DIMER, TROPHS, LIP, CMP #### [address] [address] Triglyceride [Mass/Vol] 47 mg/dL Normal 0-150 [facility] ([place]) Comment on above: Result Comment: Trig lyceride Reference Interval: Less than 150 Normal 150-199 Borderline high risk 200-499 High risk 500 or higher Very high risk Performed By: #### C BC, MG, GFR, ANEU, MDW, ADIFF, DIMER, TROPHS, LIP, CMP #### [address] [address] MGon 07-03-2023 Magnesium [Mass/Vol] 1.8 mg/dL Normal 1.8-2.4 [facility] ([place] Comment on above: Performed By: #### M G, FT3, LIPID, VIDH, CMP, GFR, FT4, TSH ####[place] [address]#### B12 ####[place] [address] TSHon 07-03-2023 TSH Qn 0.71 m[IU]/L Normal 0.36-3.74 [facility] ([place]) Comment on above: Performed By: #### M G, FT3, LIPID, VIDH, CMP, GFR, FT4, TSH ####[place] [address]#### B12 ####[place] [id number] [place] [address] VIDHon 07-03-2023 Vit. D 25-Hydroxy 55.3 ng/mL Normal [facility] ([place] Comment on above: Result Comment: Inte rpretive Values Based on Total 25(OH) Vitamin D: Deficient <20 ng/mL Insufficient 20 - <30 ng/mL Sufficient 30-100 ng/mL Performed By: #### M G, FT3, LIPID, VIDH, CMP, GFR, FT4, TSH ####[id number] [place], [place] [address]#### B12 ####[place] [address] LABORATORYOrdered By: SYSTEM SYSTEM on 03-21-2023 25-hydroxyvitamin [...] 27 ratio AO ADM SS LABORATORYOrdered By: [facility] SYSTEM on 10-13-2021 GFR 67 ml/min/1.73sqm Invalid [...] Time Vital Sign Value Performing Clinician Facility 05-03-2025 20:02-0400 Body temperature 97.8 [degF] Dr. Argelia Darby DO Work Phone: [facility] 05-03-2025 20:02-0400 Diastolic blood pressure 87 mm[Hg] Dr. Argelia Darby DO Work Phone: [facility] 05-03-2025 20:02-0400 Heart rate 84 /min Dr. Argelia Darby DO Work Phone: [facility] 05-03-2025 20:02-0400 Respiratory rate 17 /min Dr. Argelia Darby DO Work Phone: [facility] 05-03-2025 20:02-0400 SaO2% (BldA) [Mass fraction] 98 % Dr. Argelia Darby DO Work Phone: [facility] 05-03-2025 20:02-0400 Systolic blood pressure 154 mm[Hg] Dr. Argelia Darby DO Work Phone: [facility] 05-03-2025 17:17-0400 Body height 167.[address] Argelia Darby DO Work Phone: [facility] 05-03-2025 17:17-0400 Body mass index (BMI) [Ratio] 28.3 kg/m2 Dr. Argelia Darby DO Work Phone: [facility] 05-03-2025 17:17-0400 Body weight 79.[address] Argelia Darby DO Work Phone: [facility] 03-02-2025 09:01-0400 Body weight 72.58 kg Artur Georges MD Work Phone: [facility] 03-02-2025 09:01-0400 Diastolic blood pressure 54 mm[Hg] Artur Georges MD Work Phone: [facility] 03-02-2025 09:01-0400 Heart rate 73 /min Artur Georges MD Work Phone: [facility] 03-02-2025 09:01-0400 Systolic blood pressure 121 mm[Hg] Artur Georges MD Work Phone: [facility] 01-22-2025 10:13-0400 Diastolic blood pressure 54 mm[Hg] Rosita Resendiz DIRECTOR [employer] Work Phone: [facility] 01-22-2025 10:13-0400 Heart rate 66 /[facility] [employer]D MANAGER Work Phone: [facility] 01-22-2025 10:13-0400 Systolic blood pressure 110 mm[Hg] Rosita [facility] DIRECTOR [employer] IN[employer]MENT FUND MANAGER Work Phone: [facility] 01-13-2025 10:00-0400 Body temperature 97.9 [degF] Dr. Argelia Darby DO Work Phone: [facility] 01-13-2025 10:00-0400 Diastolic blood pressure 60 mm[Hg] Dr. Argelia Darby DO Work Phone: [facility] 01-13-2025 10:00-0400 Heart rate 72 /min Dr. Argelia Darby DO Work Phone: [facility] 01-13-2025 10:00-0400 Respiratory rate 22 /min Dr. Argelia Darby DO Work Phone: [facility] 01-13-2025 10:00-0400 SaO2% (BldA) [Mass fraction] 96 % Dr. Argelia Darby DO Work Phone: [facility] 01-13-2025 10:00-0400 Systolic blood pressure 121 mm[Hg] Dr. Argelia Darby DO Work Phone: [facility] 01-11-2025 11:29-0400 Inhaled oxygen flow rate 2 L/min Dr. Argelia Darby DO Work Phone: [facility] 01-07-2025 13:11-0400 Body weight 78.[address] Argelia Darby DO Work Phone: [facility] 01-06-2025 10:38-0400 Body mass index (BMI) [Ratio] 28 kg/m2 Dr. Argelia Darby DO Work Phone: [facility] 12-11-2024 11:43-0400 Body temperature 97.7 [degF] Dr. Argelia Darby DO Work Phone: [facility] 12-11-2024 11:43-0400 Diastolic blood pressure 64 mm[Hg] Dr. Argelia Darby DO Work Phone: [facility] 12-11-2024 11:43-0400 Heart rate 62 /min Dr. Argelia Darby DO Work Phone: [facility] 12-11-2024 11:43-0400 Respiratory rate 18 /min Dr. Argelia Darby DO Work Phone: [facility] 12-11-2024 11:43-0400 SaO2% (BldA) [Mass fraction] 98 % Dr. Argelia Darby DO Work Phone: [facility] 12-11-2024 11:43-0400 Systolic blood pressure 116 mm[Hg] Dr. Argelia Darby DO Work Phone: [facility] 12-11-2024 08:50-0400 Inhaled oxygen flow rate 2 L/min Dr. Argelia Darby DO Work Phone: [facility] 12-07-2024 11:38-0400 Body height 167.[address] Argelia Darby DO Work Phone: [facility] 12-07-2024 11:38-0400 Body weight 79.[address] Argelia Darby DO Work Phone: [facility] 12-06-2024 20:05-0400 Body mass index (BMI) [Ratio] 28.4 kg/m2 Dr. Argelia Darby DO Work Phone: [facility] 12-06-2024 19:02-0400 Body temperature 98.1 [degF] Dr. Argelia Darby DO Work Phone: [facility] 12-06-2024 19:02-0400 Diastolic blood pressure 91 mm[Hg] Dr. Argelia Darby DO Work Phone: [facility] 12-06-2024 19:02-0400 Heart rate 86 /min Dr. Argelia Darby DO Work Phone: [facility] 12-06-2024 19:02-0400 Respiratory rate 18 /min Dr. Argelia Darby DO Work Phone: [facility] 12-06-2024 19:02-0400 SaO2% (BldA) [Mass fraction] 100 % Dr. Argelia Darby DO Work Phone: [facility] 12-06-2024 19:02-0400 Systolic blood pressure 142 mm[Hg] Dr. Argelia Darby DO Work Phone: [facility] 12-06-2024 16:31-0400 Body height 167.[address] Argelia Darby DO Work Phone: [facility] 12-06-2024 16:31-0400 Body mass index (BMI) [Ratio] 30.9 kg/m2 Dr. Argelia Darby DO Work Phone: [facility] 12-06-2024 16:31-0400 Body weight [address] Argelia Darby DO Work Phone: [facility] 12-04-2024 14:48-0400 Body mass index (BMI) [Ratio] 18.7 kg/m2 Dr. Argelia Darby DO Work Phone: [facility] 12-04-2024 14:48-0400 Body weight 52.[address] Argelia Darby DO Work Phone: [facility] 12-04-2024 14:48-0400 Diastolic blood pressure 69 mm[Hg] Dr. Argelia Darby DO Work Phone: [facility] 12-04-2024 14:48-0400 Heart rate 61 /min Dr. Argelia Darby DO Work Phone: [facility] 12-04-2024 14:48-0400 Respiratory rate 18 /min Dr. Argelia Darby DO Work Phone: [facility] 12-04-2024 14:48-0400 Systolic blood pressure 155 mm[Hg] Dr. Argelia Darby DO Work Phone: [facility] 08-28-2024 08:54-0500 Body mass index (BMI) [Ratio] 29.5 kg/m2 Dr. Argelia Darby DO Work Phone: [facility] 08-28-2024 08:54-0500 Body weight [address] Argelia Darby DO Work Phone: [facility] 08-28-2024 08:54-0500 Diastolic blood pressure 73 mm[Hg] Dr. Argelia Darby DO Work Phone: [facility] 08-28-2024 08:54-0500 Heart rate 58 /min Dr. Argelia Darby DO Work Phone: [facility] 08-28-2024 08:54-0500 Respiratory rate 18 /min Dr. Argelia Darby DO Work Phone: [facility] 08-28-2024 08:54-0500 Systolic blood pressure 142 mm[Hg] Dr. Argelia Darby DO Work Phone: [facility] 09-04-2023 11:22-0500 Body height 167.[address] Madhavi Pate Work Phone: [facility] 09-04-2023 11:22-0500 Body mass index (BMI) [Ratio] 28.7 kg/m2 Dr. Madhavi Pate Work Phone: [facility] 09-04-2023 11:22-0500 Body weight 80.[address] Madhavi Pate Work Phone: [facility] 09-04-2023 11:22-0500 Diastolic blood pressure 70 mm[Hg] Dr. Madhavi Pate Work Phone: [facility] 09-04-2023 11:22-0500 Heart rate 61 /min Dr. Madhavi Pate Work Phone: [facility] 09-04-2023 11:22-0500 Respiratory rate 16 /min Dr. Madhavi Pate Work Phone: [facility] 09-04-2023 11:22-0500 Systolic blood pressure 150 mm[Hg] Dr. Madhavi Pate Work Phone: [facility] 09-02-2023 11:12-0500 Blood Pressure Location YAZMIN PACET DO [facility] 09-02-2023 11:12-0500 Body temperature 97.88 [degF] YAZMIN PACET DO [facility] 09-02-2023 11:12-0500 Diastolic Blood Pressure Non-Invasive 79 mm[Hg] YAZMIN PACET DO [facility] 09-02-2023 11:12-0500 Heart rate 60 /min YAZMIN PACET DO [facility] 09-02-2023 11:12-0500 Respiratory rate 16 /min YAZMIN PACET DO [facility] 09-02-2023 11:12-0500 Systolic Blood Pressure Non-Invasive 151 mm[Hg] YAZMIN SANJEEVT DO [facility] 08-14-2023 11:04-0500 Body temperature 97.2 [degF] Dr. Madhavi Pate Work Phone: [facility] 08-14-2023 11:04-0500 Diastolic blood pressure 58 mm[Hg] Dr. Madhavi Pate Work Phone: [facility] 08-14-2023 11:04-0500 Heart rate 61 /min Dr. Madhavi Pate Work Phone: [facility] 08-14-2023 11:04-0500 Respiratory rate 16 /min Dr. Madhavi Pate Work Phone: [facility] 08-14-2023 11:04-0500 SaO2% (BldA) [Mass fraction] 95 % Dr. Madhavi Pate Work Phone: [facility] 08-14-2023 11:04-0500 Systolic blood pressure 147 mm[Hg] Dr. Madhavi Pate Work Phone: 4(036)766-[address]277 [place] [address] 08-13-2023 06:00-0500 Body mass index (BMI) [Ratio] 29.1 kg/m2 Dr. Madhavi Pate Work Phone: 9(474)545-544477 [place] [address] 08-13-2023 06:00-0500 Body weight 81.[address] Madhavi Pate Work Phone: 9(288)[phone] [place] [address] 08-08-2023 15:24-0500 Body height 167.[address] Madhavi Pate Work Phone: 9(817)[phone] [place] [address] 08-07-2023 08:14-0500 Inhaled oxygen flow rate 1.5 L/min Dr. Madhavi Pate Work Phone: 6(085)[phone] [place] [address] 07-31-2023 13:56-0500 Body temperature 98.5 [degF] Dr. Madhavi Pate Work Phone: 3(486)[phone] [place] [address] 07-31-2023 13:56-0500 Diastolic blood pressure 65 mm[Hg] Dr. Madhavi Pate Work Phone: [facility] 07-31-2023 13:56-0500 Heart rate 66 /min Dr. Madhavi Pate Work Phone: [facility] 07-31-2023 13:56-0500 Respiratory rate 18 /min Dr. Madhavi Pate Work Phone: [facility] 07-31-2023 13:56-0500 SaO2% (BldA) [Mass fraction] 100 % Dr. Madhavi Pate Work Phone: [facility] 07-31-2023 13:56-0500 Systolic blood pressure 160 mm[Hg] Dr. Madhavi Pate Work Phone: [facility] 07-31-2023 10:32-0500 Inhaled oxygen flow rate 2 L/min Dr. Madhavi Pate Work Phone: [facility] 07-31-2023 05:44-0500 Body mass index (BMI) [Ratio] 30.7 kg/m2 Dr. Madhavi Pate Work Phone: [facility] 07-31-2023 05:44-0500 Body weight 83.[address] Madhavi Pate Work Phone: [facility] 07-29-2023 09:43-0500 Body height 165.[address] Madhavi Pate Work Phone: [facility] 07-27-2023 22:38-0400 Diastolic Blood Pressure Non-Invasive 71 1 RASHEL DURESKA DO [facility] 07-27-2023 22:38-0400 Heart rate 68 /min RASHEL DURESKA DO [facility] 07-27-2023 22:38-0400 Respiratory rate 18 /min RASHEL DURESKA DO [facility] 07-27-2023 22:38-0400 Systolic Blood Pressure Non-Invasive 133 1 RASHEL DURESKA DO [facility] 07-27-2023 22:12-0400 Diastolic Blood Pressure Non-Invasive 92 1 RASHEL DURESKA DO [facility] 07-27-2023 22:12-0400 Heart rate 91 /min RASHEL DURESKA DO [facility] 07-27-2023 22:12-0400 Respiratory rate 18 /min RASHEL DURESKA DO [facility] 07-27-2023 22:12-0400 Systolic Blood Pressure Non-Invasive 155 1 RASHEL DURESKA DO [facility] 07-27-2023 21:33-0400 Diastolic Blood Pressure Non-Invasive 68 1 RASHEL DURESKA DO [facility] 07-27-2023 21:33-0400 Heart rate 71 /min RASHEL DURESKA DO [facility] 07-27-2023 21:33-0400 Respiratory rate 18 /min RASHEL DURESKA DO [facility] 07-27-2023 21:33-0400 Systolic Blood Pressure Non-Invasive 163 1 RASHEL DURESKA DO [facility] 07-27-2023 19:48-0400 Body temperature 97.88 [degF] RASHEL GARCIAESKA DO [facility] 07-27-2023 19:48-0400 Heart rate 66 /min RASHEL SPANGLER DO [facility] Encounters Encounter Date Encounter Type Care Provider Facility Start: 07-08-2025 [facility] Argelia [place] Facility :[facility] Start: 05-18-2025 End: 05-19-2025 Telephone encounter Artur Georges MD Work Phone: [facility] Comment on above: Orders (Catheter ) Start: 05-03-2025 End: 05-03-2025 Emergency department patient visit Dr. Argelia Darby DO Work Phone: -Emergency Department Work Phone: Start: 04-21-2025 End: 04-21-2025 Telephone encounter Artur Georges MD Work Phone: [facility] Comment on above: Orders Start: 04-09-2025 ambulatory Argelia Darby Facility :[facility] Start: 04-09-2025 Registered Referred Gene Duenas MD -[facility] Start: 03-02-2025 End: 03-02-2025 Office outpatient visit 25 minutes Artur Georges MD Work Phone: [facility] Comment on above: Urinary retention (P rimary Dx) Start: 03-02-2025 End: 03-02-2025 ambulatory ARTUR GEORGES [facility] Start: 02-18-2025 ambulatory Argelia [place] Facility :[facility] Start: 02-18-2025 Registered Referred Gene Duenas MD -[facility] Start: 02-09-2025 ambulatory Argelia [facility] Facility :[facility] Start: 02-09-2025 Registered Referred Gene Duenas MD -[facility] Start: 02-06-20[facility] Start: 02-06-2025 Registered Referred Gene Duenas MD -[facility] Start: 01-26-2025 ambulatory Argelia [facility] Facility :[facility] Start: 01-26-2025 Registered Referred Gene Duenas MD -[facility] Start: 01-23-2025 End: 01-26-2025 Telephone encounter Rosita Resendiz APRN - INVESTMENT FUND MANAGER Work Phone: [facility] Comment on above: Appointment Request Start: 01-22-2025 End: 01-22-2025 Office outpatient new 45 minutes Rosita Resendiz DIRECTOR [employer] - INVESTMENT FUND MANAGER Work Phone: [facility] Comment on above: Urinary retention (P rimary Dx) Start: 01-22-2025 End: 01-22-2025 ambulatory ROSITA [facility] Start: 01-22-2025 Registered Referred Gene Duenas MD -[facility] Start: 01-19-2025 End: 01-19-2025 Telephone encounter Artur Georges MD Work Phone: [facility] Comment on above: Appointment Request Start: 01-19-2025 ambulatory Argelia Darby Facility :[facility] Start: 01-19-2025 Registered Referred Gene Yulissa BURRELL -[facility] Start: 12-19-2024 End: 12-19-2024 ambulatory Tim Syed Facility[facility] Start: 12-19-2024 Encounter for preprocedural cardiovascular examination Michelle Dang [facility] Start: 12-11-2024 End: 01-13-2025 Evaluation and management of inpatient Dr. Juan Diego Marks MD -Transitional Care Unit Start: 12-11-2024 Non-patient / Non-visit Dr. Garcia -[facility] Work Phone: Start: 12-10-2024 Non-patient / Non-visit Dr. Madhavi Pate MD -[facility] Work Phone: Start: 12-09-2024 Non-patient / Non-visit Dr. Montse Cabrera MD -[facility] Work Phone: Start: 12-08-2024 Non-patient / Non-visit Dr. Bony Dang MD -[facility] Start: 12-08-2024 Non-patient / Non-visit Dr. Montse Cabrera MD -[facility] Work Phone: Start: 12-07-[address] Wing Darby DO Work Phone: [facility] Start: 12-07-2024 Non-patient / Non-visit Dr. Montse Cabrera MD -[facility] Work Phone: Start: 12-06-2024 Non-patient / Non-visit Dr. Sandro Jackman MD -[facility] Work Phone: Start: 12-06-2024 End: 12-11-[address] Donovan [facility] Start: 12-06-2024 End: 12-11-2024 Evaluation and management of inpatient Dr. Sandro Jackmna MD -Progressive Care Unit Work Phone: Start: 12-06-2024 ambulatory Achgabriela Jackman Facility :[facility] Start: 12-04-2024 End: 12-04-[address] Kristy Andrew MD -[facility] Work Phone: Start: 12-04-2024 End: 12-04-2024 ambulatory Kristy Kamran Facility:[facility] Start: 11-07-2024 ambulatory ARGELIA DARBY Facil ity:[facility] Start: 10-29-2024 End: 10-29-2024 ambulatory ARGELIA DARBY DO Facility[place] Start: 10-29-2024 End: 10-29-2024 Patient encounter procedure ARGELIA DARBY DO [facility] Start: 09-06-2024 ambulatory Kristy Andrew Facility:[facility] Start: 09-06-2024 Non-patient / Non-visit Dr. Kristy jett MD -[facility] Work Phone: Start: 09-06-2024 ambulatory Kristy Lackeyan Facility:[facility] Start: 09-06-[address] Kristy Andrew MD -Cardiovascular Services Work Phone: Start: 08-28-2024 End: 08-28-[address] Kristy Andrew MD -[facility] Work Phone: Start: 08-28-2024 End: 08-28-2024 ambulatory Kristy Andrew Facility[facility] Start: 08-25-2024 End: 08-25-2024 ambulatory ARGELIA DARBY DO Facility[facility] Start: 08-25-2024 End: 08-25-2024 Patient encounter procedure ARGELIA DARBY DO [facility] Start: 07-31-2024 End: 07-31-2024 ambulatory ARGELIA DARBY DO Facility[facility] Start: 07-31-2024 End: 07-31-2024 Patient encounter procedure ARGELIA DARBY DO [facility] Start: 05-23-2024 End: 05-23-2024 ambulatory ARGELIA EASONY DO Facility:[facility] Start: 05-23-2024 End: 05-23-2024 Patient encounter procedure JESUS WOODARD 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 [employer]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 [facility] Start: 05-15-2024 End: 05-15-2024 ambulatory ARGELIA EASONY DO Facility:[facility] Start: 05-15-2024 End: 05-15-2024 Patient encounter procedure ARGELIA EASONY DO [facility] Start: 04-15-2024 End: 04-15-2024 ambulatory ARGELIA EASONY DO Facility:[facility] Start: 04-15-2024 End: 04-15-2024 Patient encounter procedure ARGELIA EASONY DO [facility] Start: 03-03-2024 End: 03-03-2024 ambulatory ARGELIA EASONY DO Facility:[facility] Start: 03-03-2024 End: 03-03-2024 Patient encounter procedure ARGELIA WILSONLAY DO [facility] Start: 01-30-2024 End: 01-30-2024 ambulatory ARGELIA EASONY DO Facility:[facility] Start: 12-11-2023 End: 12-11-2023 ambulatory ARGELIA WILNER DO Facility:[facility] Start: 12-11-2023 End: 12-11-2023 Patient encounter procedure ARGELIA EASONY DO [facility] Start: 12-04-2023 End: 12-08-2023 ambulatory ARGELIA WILNER DO Facility:[facility] Start: 12-04-2023 End: 12-08-2023 Outreach Lab ARGELIA WILSONLAY DO [facility] Start: 12-04-2023 End: 12-08-2023 ambulatory ARGELIA EASONY DO Facility:[facility] Start: 12-04-2023 End: 12-08-2023 Outreach Lab ARGELIA DARBY DO [facility] Start: 10-10-2023 End: 10-10-2023 ambulatory ARGELIA EASONY DO Facility:[facility] Start: 10-10-2023 End: 10-10-[address] CATIE SNOWDEN MD [facility] Start: 09-26-2023 Non-patient / Non-visit Dr. Deidra Pate Work Phone: [facility] Work Phone: Start: 09-26-2023 Non-patient / Non-visit Dr. Deidra Pate Work Phone: [facility] Start: 09-26-2023 End: 09-26-[address] Madhavi Pate Work Phone: [facility] Work Phone: Start: 09-26-2023 End: 09-26-[address] Madhav[facility]ate [facility] Work Phone: Start: 09-19-2023 End: 10-09-2023 ambulatory ARGELIA DARBY DO Facility:[facility] Start: 09-19-2023 End: 10-09-2023 Physical therapy management ARGELIA DARBY DO [facility] Start: 09-13-2023 End: 09-13-2023 ambulatory ARGELIA EASONY DO Facility:[facility] Start: 09-11-2023 End: 09-11-2023 ambulatory ARGELIA EASONY DO Facility:[facility] Start: 09-04-2023 End: 09-04-[address] Madhavi Pate Work Phone: [facility] Work Phone: Start: 09-02-2023 End: 09-02-2023 Emergency department patient visit YAZMIN ANDERS DO [facility] Start: 08-30-2023 End: 08-30-2023 ambulatory ARGELIA DARBY DO Facility:[facility] Start: 08-30-2023 End: 08-30-2023 Patient encounter procedure ARGELIA DARBY DO [facility] Start: 08-21-2023 End: 08-21-2023 ambulatory ARGELIA DARBY DO Facility:[facility] Start: 07-31-2023 End: 08-14-2023 Evaluation and management of inpatient Dr. Madhavi Pate Work Phone: [facility]-Transitional Care Unit Start: 07-31-2023 Non-patient / Non-visit Dr. Deidra Pate Work Phone: [facility] Work Phone: Start: 07-30-2023 Non-patient / Non-visit Dr. Deidra Pate Work Phone: [facility] Work Phone: Start: 07-29-2023 Non-patient / Non-visit Dr. Deidra Pate Work Phone: [facility] Work Phone: Start: 07-28-2023 End: 07-31-2023 Evaluation and management of inpatient Dr. Madhavi Pate Work Phone: [facility]-Medical Surgical 3 Work Phone: Start: 07-28-2023 Non-patient / Non-visit Dr. Deidra Pate Work Phone: [facility] Work Phone: Start: 07-27-2023 End: 07-27-2023 Emergency department patient visit RASHEL SPANGLER DO [facility] Start: 07-26-2023 End: 07-26-2023 Emergency department patient visit ARGELIA WILSONLAElly ESTEVEZ Facility:[facility] Start: 07-24-2023 End: 07-28-2023 ambulatory ARGELIA WILNER DO Facility:[facility] Start: 07-24-2023 End: 07-28-2023 Outreach Lab ARGELIA DARBY DO [facility] Start: 07-16-2023 End: 07-16-2023 ambulatory ARGELIA DARBY DO Facility:[facility] Start: 07-16-2023 End: 07-16-2023 Patient encounter procedure ARGELIA Pastrana WILNER DO [facility] Start: 07-03-2023 End: 07-03-2023 ambulatory ARGELIA DARBY DO Facility:[facility] Start: 03-21-2023 End: 03-21-2023 Patient encounter procedure ARGELIA Pastrana WILNER DO [facility] Start: 12-26-2022 End: 12-30-2022 Outreach Lab ARGELIA DARBY DO [facility] Start: 12-26-2022 End: 12-26-2022 Patient encounter procedure ARGELIA DARBY DO [facility] Start: 08-23-2022 End: 08-23-2022 Patient encounter procedure ARGELIA M WILNER DO [facility] Start: 04-19-2022 End: 04-19-2022 Patient encounter procedure ARGELIA M IWLNER DO [facility] Start: 04-05-2022 End: 04-05-2022 Patient encounter procedure ARGELIA Pastrana WILNER [facility] Start: 12-09-2021 End: 01-25-2022 Physical therapy management ARGELIA Pastrana WILNER [facility] Start: 12-07-2021 End: 12-07-2021 Patient encounter procedure ARGELIA Pastrana WILNER [facility] Start: 10-20-2021 End: 10-20-2021 Patient encounter procedure ARGELIA Pastrana WILNER [facility] Start: 10-13-2021 End: 10-13-2021 Patient encounter procedure ARGELIA Pastrana WILNER DO [facility] Start: 10-06-2021 End: 10-06-2021 Patient encounter procedure ARGELIA Pastrana WILNER DO [facility] Start: 08-01-2021 End: 08-01-2021 Patient encounter procedure SHAYNE GONZALEZ DIRECTOR [employer]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 [facility] Start: 07-06-2021 End: 07-06-2021 Patient encounter procedure SHAYNE GONZALEZ DIRECTOR [employer]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 [facility] Procedures Date Procedure Procedure Detail Performing Clinician Start: 05-03-2025 Plain x-ray of hand Dr. Argelia Darby DO Work Phone: Start: 05-03-2025 CT cervical spine wi thout contrast Dr. Argelia Darby DO Work Phone: Start: 05-03-2025 CT of chest, abdomen and pelvis without contrast Dr. Argelia Darby DO Work Phone: Start: 05-03-2025 CT of head without contrast Dr. Argelia Darby DO Work Phone: Start: 02-18-[address] Burton in [place] [facility] Work Phone: Start: 02-18-2025 Urnls dip stick/tabl et reagent auto microscopy Dr. Argelia Darby DO Work Phone: Start: 01-22-[address] Burton in [place] [facility] Work Phone: Start: 01-22-2025 Urnls dip stick/tabl et reagent auto microscopy Dr. Argelia Darby DO Work Phone: Start: 01-11-[address] Argelia Darby DO Work Phone: Start: 01-05-2025 X-ray of knee, one o r two views Dr. Argelia Darby DO Work Phone: Start: 12-30-[address] Burton in [place] [facility] Work Phone: Start: 12-30-2024 Urnls dip stick/tabl et reagent auto microscopy Dr. Argelia Darby DO Work Phone: Start: 12-29-2024 X-ray of knee, one o r two views Dr. Argelia Darby DO Work Phone: Start: 12-22-2024 X-ray of knee, one o r two views Dr. Argelia Darby DO Work Phone: Start: 12-20-2024 Total iron binding c apacity measurement Dr. Argelia Darby DO Work Phone: Start: 12-19-2024 Measurement of occul t blood in stool specimen using immunoassay Dr. Argelia Darby DO Work Phone: Start: 12-17-[address] Josephine Darby DO Work Phone: Start: 12-17-2024 Plain X-ray abdomen Dr. Argelia Darby DO Work Phone: Start: 12-06-2024 Plain chest X-ray Dr. Wing [...] above: both eye Start: 09-09-2020 Cardiac catheterization SHAYNE GONZALEZ DIRECTOR [employer]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 Start: 08-22-2010 Thyroidectomy SHAYNE Villagomez FIDELIA DIRECTOR [employer]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 Comment on above: Bilateral follicular thyroid nodule, cystic colloid nodule Start: 09-24-1994 Dilation and curetta ge of uterus SHAYNE CARLOS DIRECTOR [employer]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 Comment on above: cone biopsy Start: 09-24-1982 Ligation of fallopian tube SHAYNE CARLOS DIRECTOR [employer]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 Start: 09-24-1958 Tonsillectomy SHAYNE Villagomez FIDELIA DIRECTOR [employer]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 Colonoscopy SHAYNE GONZALEZ AP RN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 Endometrial biopsy SHAYNE Villagomez FIDELIA DIRECTOR [employer]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 Comment on above: 1992 & 1988 Tympanotomy SHAYNE SHEPARD RN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 Comment on above: right ear Plan of Treatment Date Care Activity Detail Author Start: 12-06-2034 DTaP/Tdap/Td Vaccines (3 - Td or Tdap) DTaP/Tdap/Td Vaccines (3 - Td or Tdap) [facility] Start: 05-25-2025 Influenza vaccination [facility] Start: 05-03-2025 [facility] Start: 03-02-2025 End: 03-02-2025 Patient encounter procedure 03/02/2025 9:20 AM EDT Procedure Visit [facility] [address] [place] [id number] Artur Georges MD [address] [place] [id number] [facility] Start: 01-22-2025 End: 01-22-2025 Patient encounter procedure 01/22/2025 10:00 AM EDT Office Visit [facility] [address] [place] [id number] Rosita Resendiz APRN - AMBER[place] [address] [place] [address] [facility] Start: 01-13-2025 Patient discharge [facility] Start: 01-12-2025 Developing a treatment plan [facility] Start: 01-12-2025 Development of care plan [facility] Start: 01-11-2025 Oxygen therapy [facility] Start: 01-10-2025 Removal of urinary catheter [facility] Start: 01-08-2025 Developing a treatment plan [facility] Start: 01-08-2025 Development of care plan [facility] Start: 01-07-2025 Contact precautions [facility] Start: 01-05-2025 [facility] Start: 12-29-2024 Removal of urinary catheter [facility] Start: 12-17-2024 [facility] Start: 12-12-2024 Development of care plan [facility] Start: 12-12-2024 Speech therapy management [facility] Start: 12-12-2024 Developing a treatment plan [facility] Start: 12-12-2024 Speech therapy assessment [facility] Start: 12-12-2024 [facility] Start: 12-12-2024 [facility] Start: 12-11-2024 End: 12-12-2024 [facility] Start: 12-11-2024 Following clinical pathway protocol [facility] Start: 12-11-2024 Admission procedure [facility] Start: 12-11-2024 Introduction of urinary catheter [facility] Start: 12-11-2024 Measuring intake and output [facility] Start: 12-11-2024 Referral to occupational therapist [facility] Start: 12-11-2024 Referral to service [facility] Start: 12-11-2024 Vital signs measurements [facility] Start: 12-11-2024 End: 12-11-2024 [facility] Start: 12-11-2024 Patient discharge [facility] Start: 12-10-2024 Fluid restriction [facility] Start: 12-09-2024 Referral to postal carrier [facility] Start: 12-07-2024 [facility] Start: 12-06-2024 Referral to wax machine operator [facility] Start: 12-06-2024 [facility] Start: 12-06-2024 Care planning and problem solving actions [facility] Start: 12-06-2024 Following clinical pathway protocol [facility] Start: 12-06-2024 Assessment of risk of venous thromboembolism [facility] Start: 12-06-2024 Consultation [facility] Start: 12-06-2024 Insertion of catheter into peripheral vein [facility] Start: 12-06-2024 [facility]: [facility]-06-[facility]24 Providing care according to standard [facility] Start: 12-06-2024 Provision of activity privileges [facility] Start: 12-06-2024 Referral to occupational therapist [facility] Start: 12-06-2024 Referral to service [facility] Start: 12-06-2024 [facility] Start: 12-06-2024 Verification routine [facility] Start: 12-06-2024 Admission procedure [facility] Start: 12-06-2024 End: 12-06-2024 [facility] Start: 12-06-2024 Hospital admission, emergency, from emergency room, medical nature [facility] Start: 12-06-2024 End: 12-07-2024 [facility] Start: 05-25-2024 COVID-19 Vaccine () COVID-19 Vaccine () [facility] Start: 05-25-2024 COVID-19 Vaccine () COVID-19 Vaccine () [facility] Start: 09-12-2023 Blood chemistry [facility] Start: 09-05-2023 Blood chemistry [facility] Start: 08-29-2023 Blood chemistry [facility] Start: 08-22-2023 Blood chemistry [facility] Start: 08-15-2023 Blood chemistry [facility] Start: 08-14-2023 Patient discharge [facility] Start: 08-13-2023 Development of care plan [facility] Start: 08-08-2023 Oxygen therapy [facility] Start: 08-06-2023 Blood chemistry [facility] Start: 08-05-2023 Blood chemistry [facility] Start: 08-04-2023 Blood chemistry [facility] Start: 08-03-2023 Blood chemistry [facility] Start: 08-02-2023 Blood chemistry [facility] Start: 08-01-2023 Development of care plan [facility] Start: 08-01-2023 Developing a treatment plan [facility] Start: 08-01-2023 Blood chemistry [facility] Start: 07-31-2023 Following clinical pathway protocol [facility] Start: 07-31-2023 Admission procedure [facility] Start: 07-31-2023 Measuring intake and output [facility] Start: 07-31-2023 Patient referral to dietitian [facility] Start: 07-31-2023 Referral to occupational therapist [facility] Start: 07-31-2023 Referral to service [facility] Start: 07-31-2023 Vital signs measurements [facility] Start: 07-31-2023 [facility] Start: 07-31-2023 Patient discharge [facility] Start: 07-29-2023 Inhalation therapy procedure [facility] Start: 07-28-2023 [facility] Start: 07-28-2023 Admission procedure [facility] Start: 07-28-2023 Referral to postal carrier [facility] Start: 07-28-2023 Following clinical pathway protocol [facility] Start: 07-28-2023 Admission procedure [facility] Start: 07-28-2023 Assessment of risk of venous thromboembolism [facility] Start: 07-28-2023 Insertion of catheter into peripheral vein [facility] Start: 07-28-2023 Providing care according to standard [facility] Start: 07-28-2023 Provision of activity privileges [facility] Start: 07-28-2023 Fall prevention [facility] Start: 07-28-2023 End: 07-28-2023 [facility] Start: 07-28-2023 Introduction of urinary catheter [facility] Start: 07-28-2023 Oxygen therapy [facility] Start: 07-28-2023 Referral to occupational therapist [facility] Start: 07-28-2023 Referral to service [facility] Start: 07-28-2023 Measuring intake and output [facility] Start: 2018 RSV Immunization for Adults (1 - 1-dose 75+ series) RSV Immunization for Adults (1 - 1-dose 75+ series) [facility] Start: 06-08-2009 Zoster Vaccines (2 of 3) Zoster Vaccines (2 of 3) [facility] Start: 1993 Pneumococcal Vaccine: 50+ Years (1 of 1 - PCV) Pneumococcal Vaccine: 50+ Years (1 of 1 - PCV) [facility] Start: 1993 Zoster Vaccines (1 of 2) Zoster Vaccines (1 of 2) [facility] Start: 1962 DTaP/Tdap/Td Vaccines (1 - Tdap) DTaP/Tdap/Td Vaccines (1 - Tdap) [facility] Start: 1955 Depression Monitoring Depression Monitoring [facility] Start: 1955 Depression Screening Depression Screening [facility] Start: 1943 Lipid panel Lipid Panel [facility] Start: 1943 Medicare Annual Wellness (AWV) Medicare Annual Wellness (AWV) [facility] Start: 1943 Screening for osteoporosis Bone Density Scan [facility] Start: 1943 Thyroid stimulating hormone measurement TSH Level [facility] CT angiography of co ronary arteries [facility] CTA Heart and [place] ry arteries W contrast IV [facility] Patient Education [facility] Work Phone: Patient referral [facility] Work Phone: Troponin T.cardiac [Mass/volume] in Serum or Plasma by High sensitivity method [facility] Troponin T.cardiac [Mass/volume] in Serum or Plasma by High sensitivity method [facility] Troponin T.cardiac [Mass/volume] in Serum or Plasma by High sensitivity method [facility] Immunizations Immunization Date Immunization Notes Care Provider Fa [facility] 12-06-2024 tetanus toxoid, redu christopher diphtheria toxoid, and acellular pertussis vaccine, adsorbed Dr. Argelia Darby DO Work Phone: [facility] 07-11-2022 pneumococcal polysaccharide vaccine, 23 valent; Translations: [Pneumovax 23] ARGELIA DARBY DO [facility] 05-17-2021 SARS-CoV-2 (COVID-19 ) mRNA-1273 vaccine ARGELIA DARBY DO [facility] 04-16-2021 SARS-CoV-2 (COVID-19 ) mRNA-1273 vaccine ARGELIA DARBY DO [facility] 06-05-2019 influenza virus vacc ine, unspecified formulation SHAYNE CARLOS DIRECTOR 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 [facility] 06-05-2019 Seasonal trivalent influenza vaccine, adjuvanted, preservative free Dr. Madhavi Pate Work Phone: [facility] 05-29-2018 influenza virus vacc ine, unspecified formulation SHAYNE FISH DIRECTOR 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 [facility] 05-29-2018 Seasonal trivalent influenza vaccine, adjuvanted, preservative free Dr. Madhavi Pate Work Phone: [facility] 06-07-2017 influenza virus vacc ine, unspecified formulation SHAYNE FISH DIRECTOR 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 [facility] 06-07-2017 Seasonal trivalent influenza vaccine, adjuvanted, preservative free Dr. Madhavi Pate Work Phone: [facility] 05-01-2017 pneumococcal conjuga te vaccine, 13 valent SHAYNE FISH DIRECTOR 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 [facility] 06-21-2016 influenza virus vacc ine, unspecified formulation SHAYNE FISH DIRECTOR 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 [facility] 06-21-2016 Influenza, high dose seasonal Dr. Argelia Darby DO Work Phone: [facility] 06-21-2016 influenza, high dose seasonal, preservative-free Dr. Madhavi Pate Work Phone: [facility] 05-25-2016 influenza virus vacc ine, unspecified formulation SHAYNE FISH DIRECTOR 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 [facility] 05-25-2016 influenza, injectabl e, quadrivalent, preservative free Dr. Madhavi Pate Work Phone: [facility] 05-17-2015 influenza virus vacc ine, unspecified formulation SHAYNE FISH DIRECTOR 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 [facility] 05-17-2015 Influenza, high dose seasonal Dr. Argelia Darby DO Work Phone: [facility] 05-17-2015 influenza, high dose seasonal, preservative-free Dr. Madhavi Pate Work Phone: [facility] 07-16-2014 influenza virus vacc ine, unspecified formulation SHAYNE FISH DIRECTOR 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 [facility] 07-16-2014 Seasonal, quadrivale nt, recombinant, injectable influenza vaccine, preservative free Dr. Madhavi Pate Work Phone: [facility] 01-12-2011 tetanus toxoid, redu christopher diphtheria toxoid, and acellular pertussis vaccine, adsorbed SHAYNE FISH DIRECTOR 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 [facility] 04-13-2009 zoster vaccine, live SHAYNE FISH DIRECTOR 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 [facility] Payers Date Payer Category Payer Self-pay [id number] 2021 Unknown [id number] 2016 [employer] [place] [facility] - [facility] BLUE CROSS [id number] 2009 Unknown [id number] 2008 Medicare [id number] 2008 Medicare [id number] 1943 Unknown [id number] 2.16840.1.152421.3.579. 2. 1943 Unknown [id number] 2.840.1.621484.3.579. 2. 1943 Unknown [id number] 2.840.1.932263.3.579. 2. 1943 Unknown [id number] 2.840.1.412963.3.579. 2. 1943 Unknown [id number] 2.840.1.502821.3.579. 2. 1943 Unknown [id number] .840.1.954387.3.579. 2. 1943 Unknown [id number] 2.840.1.285050.3.579. 2. 1943 Unknown [id number] 2.840.1.287734.3.579. 2. 1943 Unknown [id number] .16840.1.870591.3.579. 2. 1943 Unknown [id number] 2.16840.1.315235.3.579. 2. 1943 Unknown [id number] 2.16840.1.533599.3.579. 2.62 1943 Unknown [id number] 2.16840.1.572063.3.579. 27 1943 Unknown [id number] 2.16840.1.685286.3.579. 2.627 1943 Unknown [id number] 2.16840.1.014452.3.579. 2.627 1943 Unknown [id number] 2.840.1.549772.3.579. 2.627 1943 Unknown [id number] 2.840.1.771469.3.579. 2.627 1943 Unknown [id number] 2.840.1.314837.3.579. 2.62 1943 Unknown [id number] 2.840.1.617478.3.579. 2.627 1943 Unknown [id number] 2.840.1.151500.3.579. 2. 1943 Unknown [id number] .840.1.448677.3.579. 2.627 1943 Unknown [id number] .840.1.096465.3.579. 2.62 1943 Unknown [id number] 2.840.1.244625.3.579. 2.627 1943 Unknown [id number] .840.1.364006.3.579. 2.627 1943 Unknown [id number] .16840.1.715179.3.579. 2.627 1943 Unknown [id number] 2.840.1.348574.3.579. 2.627 1943 Unknown [id number] 2.16840.1.101903.3.579. 2.627 Unknown [id number] 2.16840.1.375030.3.579. 2.462 Unknown [id number] 2.16.840.1.783691.3.579. 2.462 Unknown [id number] 2.16.840.1.971726.3.579. 2.462 Unknown [id number] 2.16.840.1.729773.3.579. 2.462 Unknown [id number] 2.16.840.1.986245.3.579. 2.462 Unknown [id number] 2.16.840.1.559548.3.579. 2.462 Unknown [id number] 2.16.840.1.381663.3.579. 2.462 Unknown [id number] 2.16.840.1.648915.3.579. 2.462 Unknown [id number] 2.16.840.1.239118.3.579. 2.462 Unknown [id number] 2.16.840.1.453647.3.579. 2.462 Unknown [id number] 2.16.840.1.248834.3.579. 2.462 Unknown [id number] 2.16.840.1.797912.3.579. 2.462 Unknown [id number] 2.16.840.1.321229.3.579. 2.462 Unknown [id number] 2.16.840.1.084926.3.579. 2.462 Unknown [id number] 2.16.840.1.814632.3.579. 2.462 Unknown [id number] 2.16.840.1.339923.3.579. 2.462 Unknown [id number] 2.16.840.1.376395.3.579. 2.462 Unknown [id number] 2.16.840.1.956526.3.579. 2.462 Unknown [id number] 2.16.840.1.631058.3.579. 2.462 Unknown [id number] 2.16.840.1.268343.3.579. 2.462 Unknown [id number] 2.16.840.1.224216.3.579. 2.462 Unknown [id number] 2.16.840.1.753897.3.579. 2.462 Unknown [id number] 2.16.840.1.504310.3.579. 2.462 Unknown [id number] 2.16.840.1.458458.3.579. 2.462 Social History Date Type Detail Facility Start: 06-30-2021 End: 05-03-2025 Never smoked tobacco (finding) [facility] Start: 1945 Sex Assigned At Female [facility] Start: 07-28-2023 End: 09-04-2023 Tobacco smoking status NHIS Unknown if ever smoked [facility] Sexual Orientation [facility] Start: 03-19-2019 End: 01-19-2025 Sex Female (finding) [facility] Start: 1945 Sex assigned at Not on file [facility] Gender identity Not on file [facility] Goals Date Patient Goal Desired Activity /State Functional Status Date Assessment Result Facility 01-13-2025 Functional status Activity Abili ty With Assist of 2 [facility] Work Phone: 01-12-2025 Functional status Back to bed;Stand and p ivot [facility] Work Phone: 01-11-2025 Functional status Tolerates Activity Well [facility] Work Phone: 12-11-2024 Functional status Ambulates [facility] Work Phone: 09-02-2023 Functional Status Independent Farnaz elliott [facility] 08-14-2023 Functional status Up ad laura [facility] Work Phone: 07-31-2023 Functional status Ambulates [facility] Work Phone: 07-27-2023 Functional Status Standard Safet y ID band on, Call device within reach, Bed in low position, Wheels locked, Upper/Half-Length side-rails up, Bedside Cart Locked, Safety level maintained [facility] 12-09-2021 Functional Status Douglas Prem elliott [facility] Mental Status Date Assessment Result Facility 01-13-2025 Cognitive function Voice/Name [facility] Work Phone: 12-11-2024 Cognitive function Voice/Name [facility] Work Phone: 09-02-2023 Mental Status Orientation Oriented x [facility] 09-02-2023 Mental Status [facility] 08-14-2023 Cognitive function Voice/Name [facility] Work Phone: 08-08-2023 Cognitive function Appropriate;Cooperativ [facility] Work Phone: 07-31-2023 Cognitive function Voice/Name [facility] Work Phone: 07-27-2023 Mental Status Orientation Oriented x 4 [facility] Clinical Notes 08-23-2022 to 05-19-2025 Telephone Encounter - Maycol Staley RN - 05/19/2025 8:27 AM EDTTelephone Encounter - Maycol Staley RN - 05/19/2025 8:27 AM EDTTelephone Encounter - Romero Sierra APRN - AMBERLY - 05/19/2025 7:35 AM EDT Note Date & Type Note Facility 05-19-2025 Telephone encounter Note Faxed cath order to [facility] for pt. [facility] 05-19-2025 Miscellaneous Notes Faxed cath order to [facility] for pt. Okay to provide standard letter. Changes every 4-6 weeks. Irrigation daily and as needed. The flushing should be done using the aspiration technique to actually remove the sediment. If patient tolerates, they could try a 20 beninese to help with sediment. Diagnosis: Neurogenic bladder: N31.9 Name of caller: Laura WILLISN Contact phone number: [phone] Relationship to Patient: [facility] Provider: Dr Georges Practice: Urology Chief Complaint/Reason for Call: Laura from [facility] called to request orders for Catheter. They have been frequently changing cath approximately 5-7 times a month. She now has a 18 beninese with irrigation daily. Pt still has leaking from the insertion. Nurses are asking if flush should be done with aspiration or gravity return? Or if a void trial can be initiated. Please send order to advise. New Dx needed from Cystoscopy other than urinary retention. Seeking Obstructive neuropathy; Neurogenic bladder or other Dx. Pt may also be experiencing bladder spasms. Best time of day caller can be reached: Any Patient advised that office/PCP has 24-48 business hours to return their call: Yes documented in this encounter [facility] [employer] 05-19-2025 Telephone encounter Note Okay to provide standard letter. Changes every 4-6 weeks. Irrigation daily and as needed. The flushing should be done using the aspiration technique to actually remove the sediment. If patient tolerates, they could try a 20 beninese to help with sediment. Diagnosis: Neurogenic bladder: N31.9 [facility] [employer] Work Phone: 05-18-2025 Telephone encounter Note Name of caller: Laura HOYOS Contact phone number: [phone] Relationship to Patient: [facility] Provider: Dr Georges Practice: Urology Chief Complaint/Reason for Call: Laura from [facility] called to request orders for Catheter. They have been frequently changing cath approximately 5-7 times a month. She now has a 18 beninese with irrigation daily. Pt still has leaking from the insertion. Nurses are asking if flush should be done with aspiration or gravity return? Or if a void trial can be initiated. Please send order to advise. New Dx needed from Cystoscopy other than urinary retention. Seeking Obstructive neuropathy; Neurogenic bladder or other Dx. Pt may also be experiencing bladder spasms. Best time of day caller can be reached: Any Patient advised that office/PCP has 24-48 business hours to return their call: Yes [facility] 05-04-2025 Telephone encounter Note Call placed to facility . Pt returned to facility with catheter in place from 03/02 appointment . NGB diagnosis provided to facility for justification of catheter [facility] 05-04-2025 Miscellaneous Notes Call placed to facility . Pt returned to facility with catheter in place from 03/02 appointment . NGB diagnosis provided to facility for justification of catheter Name of caller: Amie HOYOS Contact phone number: [phone] Relationship to Patient: [facility] Provider: Dr Georges Practice: Urology Chief Complaint/Reason for Call: Amie HOYOS from [facility] is still in need of Dx for catheter placement for pt. This is a medicare/medicaid facility and Dx of neurogenic or obstructive, reflux, neopathy bladder is required. Please call or fax [phone] to advise of Dx for catheter placement. Best time of day caller can be reached: Any Patient advised that office/PCP has 24-48 business hours to return their call: Yes Name of caller: Amie Contact phone number: [phone] Relationship to Patient: [facility] Provider: Dr. Georges Practice: Urology Chief Complaint/Reason for Call: Amie called advising for a diagnose for the catheter patient has in so they can noted on their end for the reason. Please call Amie back and advise. Best time of day caller can be reached: any Patient advised that office/PCP has 24-48 business hours to return their call: N/A documented in this encounter [facility] 05-04-2025 Telephone encounter Note Name of caller: Amie HOYOS Contact phone number: [phone] Relationship to Patient: [facility] Provider: Dr Georges Practice: Urology Chief Complaint/Reason for Call: Amie HOYOS from [facility] is still in need of Dx for catheter placement for pt. This is a medicare/medicaid facility and Dx of neurogenic or obstructive, reflux, neopathy bladder is required. Please call or fax [phone] to advise of Dx for catheter placement. Best time of day caller can be reached: Any Patient advised that office/PCP has 24-48 business hours to return their call: Yes [facility] 05-03-2025 Radiology Diagnostic study note [facility] [address], [place] [id number] Hand Min 3 Views MR#: [id number] Acct: [id number] Name: JERO LEWIS Rep #: [id number] : 1945 F 79 From: Annelise Diaz MD PCP: Dr. Argelia Darby, DO Status: REG ER Study:Hand Min 3 Views Date of Exam: 07/18 Exam# [id number] Ordering Dr: Gi Herrera DO PROCEDURE: HAND MIN 3 VIEWS 05/03/2025 REASON FOR EXAM: INJURY TECHNIQUE: HAND MIN 3 VIEWS Laterality: Left COMPARISON: None. FINDINGS: Bones: Diffuse osseous demineralization. No obvious acute fracture. No aggressive osseous lesions. Joints: Normal alignment. Moderate-severe degenerative changes. Soft tissues: Soft tissues are unremarkable. RAD/Hand Min 3 Views IMPRESSION: DEGENERATIVE OSTEOARTHROSIS. NO ACUTE FINDINGS. Reading Location: [facility] CC: Dr. Argelia Darby DO; Dr. Adolph Herrera DO ~ Tip Finisher: Signed [facility] 05-03-2025 Radiology Diagnostic study note [facility] [address] [place] [address] CT Chest, Abd, Pelvis WO Cont MR#: [id number] Acct: [id number] Name: JERO LEWIS Rep #: [id number] : 1945 F 79 From: Annelise Diaz MD PCP: Dr. Argelia Darby DO Status: REG ER Study:CT Chest, Abd, Pelvis WO Cont Date of E xam: 05/03/25 Exam# [id number] Ordering Dr: Gi Herrera DO PROCEDURE: CT CHEST, ABD, PELVIS WO CONT 05/03/2025 REASON FOR EXAM: FALL TECHNIQUE: Chest, abdomen and pelvis CT without intravenous contrast. Coronal and Sagittal reconstruction series were provided. One or more dose reduction techniques were used (e.g., Automated exposure control, adjustment of the mA and/or kV according to patient size, use of iterative reconstruction technique. RADIATION DOSE SUMMARY: DLP: 2900 mGycm COMPARISON: None. FINDINGS: CT CHEST: Hardware: None. Lymph nodes: Visualization is limited without the use of IV contrast. No axillary, mediastinal or hilar lymphadenopathy. Heart and Vasculature: Mild cardiomegaly without pericardial effusion. The great vessels are normal in caliber. Severe coronary artery and moderate thoracic aortic calcifications. Lungs and Airways: The central airways are grossly patent. Bibasilar atelectasis/scarring. No suspicious pulmonary mass. No pleural effusion or pneumothorax. Bones: Thoracic spondylosis and diffuse osseous demineralization. CT ABDOMEN / PELVIS: Noncontrast technique limits evaluation of the abdominal and pelvic viscera. Liver: The unopacified liver is normal in size. No biliary ductal dilation. Gallbladder: No radiopaque stones within the gallbladder. Spleen: Normal in size. Pancreas: The unopacified pancreas is mildly atrophic. Adrenals: No adrenal mass. Kidneys: No hydronephrosis or nephrolithiasis. Bladder: Punctate intraluminal gas within the urinary bladder. Reproductive Organs: Gill catheter inflated within the vaginal canal. Partially calcified uterine fibroid. Bowel: The bowel loops are nondilated. No ascites or pneumoperitoneum. Normal appendix. Lymph nodes: Visualization is limited without the use of IV contrast. No large suspicious lymphadenopathy. Vasculature: Mild calcific plaque of the aortoiliac vessels. Bones: Marked, diffuse bone demineralization, which limits evaluation for fracture. Lumbar spondylosis. CT/CT Chest, Abd, Pelvis WO Cont IMPRESSION: CT chest: No acute thoracic findings. CT abdomen/pelvis: No acute abdominopelvic finding. Gill catheter inflated within the vaginal canal. Dr. Diaz discussed these findings with Dr. Herrera via telephone at 7:05 p.m. on 05/03/2025. Reading Location: [id number] CC: Dr. Argelia Darby DO; Dr. Adloph Herrera DO ~ Tip Finisher: Signed [facility] 05-03-2025 Radiology Diagnostic study note [facility] Imaging Services [address] [place] [address] Spine Cervical without Contras MR#: [id number] Acct: [id number] Name: JERO LEWIS Rep #: [id number] : 1945 F 79 From: Annelise Diaz MD PCP: Dr. Argelia Darby DO Status: REG ER Study:Spine Cervical without Contras Date of Exam: 05/03/25 Exam# [id number] Ordering Dr: Gi Herrera DO PROCEDURE: SPINE CERVICAL WITHOUT CONTRAS 05/03/2025 REASON FOR EXAM: FALL TECHNIQUE: Cervical spine CT without contrast. Coronal and Sagittal reconstruction series were provided. One or more dose reduction techniques were used (e.g., Automated exposure control, adjustment of the mA and/or kV according to patient size, use of iterative reconstruction technique. RADIATION DOSE SUMMARY: DLP: 300 mGycm COMPARISON: CT C-spine 12/06/2024. FINDINGS: The patient is rotated. Alignment: No traumatic listhesis. Grade 1 anterolisthesis of C3-4. Vertebrae: Mild multilevel chronic vertebral body compression deformities. No obvious acute fracture, however visualization is limited by diffuse bone demineralization. Mild multilevel central spinal stenosis. Soft Tissues: No prevertebral hematoma. CT/Spine Cervical without Contras IMPRESSION: NO ACUTE CERVICAL FRACTURE. DEGENERATIVE CHANGES. Reading Location: [facility] CC: Dr. Argelia Darby DO; Dr. Adolph Herrera DO ~ Tip Finisher: Signed [facility] 05-03-2025 Radiology Diagnostic study note [facility] Imaging Services [address] [place], [place] [address] Brain/Head without Contrast MR#: [id number] Acct: [id number] Name: JERO LEWIS Rep #: [id number] : 1945 F 79 From: Annelise Diaz MD PCP: Dr. Argelia Darby DO Status: REG ER Study:Brain/Head without Contrast Date of Exa m: 05/03/25 Exam# [id number] Ordering Dr: Gi Herrera DO EXAM: BRAIN/HEAD WITHOUT CONTRAST CLINICAL HISTORY: 79 y/o F with FALL. COMPARISON: CT head 12/06/2024. TECHNIQUE: Routine CT imaging of the head without IV contrast. Additional multiplanar reformats were obtained. Dose reduction techniques were used including intermediate exposure control (AEC),iterative reconstruction technique, and/or mA and/or KV dose adjustments based on patient's size. FINDINGS: The ventricles, sulci and cisterns are mildly prominent, suggestive of brain parenchymal volume loss. There is no evidence of acute intracranial hemorrhage or herniation. There is no midline shift, mass effect, or extra-axial collection. Moderate patchy supratentorial white matter hypodensities. The dooley and white matter interfacesare otherwise maintained. Prior ocular lens replacements. Mild mucosal thickening of the left maxillary and bilateral sphenoid sinuses. The visualized paranasal sinuses and mastoids are otherwise unremarkable. No acute calvarial fracture or scalp hematoma. CT/Brain/Head without Contrast IMPRESSION: No acute intracranial finding. Chronic findings as described. Reading Location: [id number] CC: Dr. Argelia Darby, DO; Dr. Adolph Herrera, DO ~ Tip Finisher: Signed [facility] 04-21-2025 Telephone encounter Note Name of caller: Amie Contact phone number: [phone] Relationship to Patient: [facility] Provider: Dr. Georges Practice: Urology Chief Complaint/Reason for Call: Amie called advising for a diagnose for the catheter patient has in so they can noted on their end for the reason. Please call Amie back and advise. Best time of day caller can be reached: any Patient advised that office/PCP has 24-48 business hours to return their call: N/A [facility] [employer] 03-02-2025 History of Presen t illness Narrative [...] the procedure well Plan: See E&M Artur Spear , M.D. Images from the original note were [...] : Labs: WBC No results found for: "WBC" BMP No results found for: "NA", "K", "CL", "CO2", "BUN", "CREATININE", "GLUCOSE", CALCIUM PSA No results found for: "PSA" UANo results found for: "APPEARANCE", "COLORU", "LABSPEC", "LABPH", "URINE", "GLUCOSEU", "UROBILINOGEN", "BILIRUBINUR", "OCBU" Review: had cysto today ( normal) . [...] history on file. documented in this encounter [facility] 03-02-2025 Note Cystoscopy Procedure Note Pre-operative [...] well Plan: See E&M Artur Georges M.D. [facility] 01-27-2025 Telephone encounter Note Pt scheduled for cysto with Dr. Georges on 03/02 at 9:20am. This is the earliest facility can bring the patient in for appt as Pt under senior care . Ayala aware someone has to come in with patient if transfer/ambulation help needed. [facility] 01-27-2025 Miscellaneous Notes Pt scheduled for cysto with Dr. Georges on 03/02 at 9:20am. This is the earliest facility can bring the patient in for appt as Pt under senior care . Ayala aware someone has to come in with patient if transfer/ambulation help needed. Message released to patient as written. Patient's further questions if applicable: message was released to Ayala and she would like to schedule cystoscopy Were all questions from office addressed or relayed to the patient from encounter: Yes Keep gill and needs follow up for cystoscopy in the next couple of weeks. Ayala with [facility] left a VM in regards to the patient and advised that the patient did not pass the VT conducted at the facility and was bladder scanned for 674 mL so gill was reinserted. The patient states the provider at the facility states they used to do bladder clamping "back in the day" and is asking if this could be performed for the patient. Please advise if this is something still performed and recommended. documented in this encounter [facility] 01-26-2025 Telephone encounter Note Message released to patient as written. Patient's further questions if applicable: message was released to Ayala and she would like to schedule cystoscopy Were all questions from office addressed or relayed to the patient from encounter: Yes [facility] 01-26-2025 Miscellaneous Notes Message released to patient as written. Patient's further questions if applicable: message was released to Ayala and she would like to schedule cystoscopy Were all questions from office addressed or relayed to the patient from encounter: Yes Keep gill and needs follow up for cystoscopy in the next couple of weeks. Ayala with [facility] left a VM in regards to the patient and advised that the patient did not pass the VT conducted at the facility and was bladder scanned for 674 mL so gill was reinserted. The patient states the provider at the facility states they used to do bladder clamping "back in the day" and is asking if this could be performed for the patient. Please advise if this is something still performed and recommended. documented in this encounter [facility] 01-23-2025 Telephone encounter Note Keep gill and needs follow up for cystoscopy in the next couple of weeks. [facility] Work Phone: 01-23-2025 Telephone encounter Note Ayala with [facility] left a VM in regards to the patient and advised that the patient did not pass the VT conducted at the facility and was bladder scanned for 674 mL so gill was reinserted. The patient states the provider at the facility states they used to do bladder clamping "back in the day" and is asking if this could be performed for the patient. Please advise if this is something still performed and recommended. [facility] 01-22-2025 History of Presen t illness Narrative . Urology Office Visit [facility] [address], [address] [facility] [address] Visit type: New Patient Reason for Visit: Urinary Retention (VT/Hospitalized for fall and broken patella) Assessment and Plan Diagnoses and all orders for this visit: Urinary retention VT today was successful. Ok to leave catheter out. Instructions provided for SNF regarding monitoring UO and replacing gill if pt is unable to urinate. No follow-ups on file. Subjective HPI Jero is an 79 year old female here for follow up after hospital admission at [facility] after falling and injuring her left knee. While in the hospital she has some urinary retention and a gill catheter was placed. Prior to discharge, a VT was performed and she was unable to void so the gill was replaced. VT today was successful. Ok to leave catheter out. Instructions provided for SNF regarding monitoring UO and replacing gill if pt is unable to urinate. Review [...] 100 cc immediately documented in this encounter [facility] 01-19-2025 Telephone encounter Note Returned the call to prison. Spoke with nurse Groman. Will send fax documents of pt history and discharge information from [facility]. Scheduled new patient appt 01/22/25 10:00 AM Jimmy for *hosp follow up [facility]/urinary retention/gill removal/voiding trial* Per [facility] the patient failed one VT while in hospital unclear of date possibly 01/13/25. [facility] 01-19-2025 Miscellaneous Notes Returned the call to prison. Spoke with nurse Gorman. Will send fax documents of pt history and discharge information from [facility]. Scheduled new patient appt 01/22/25 10:00 AM Jimmy for *hosp follow up [facility]/urinary retention/gill removal/voiding trial* Per [facility] the patient failed one VT while in hospital unclear of date possibly 01/13/25. Name of Caller: Obi Contact Reason for Appointment: Obi called in to get patient established for urinary retention and not being able to remove gill. Please be advised Office Name: [facility] Urology documented in this encounter [facility] 01-19-2025 Telephone encounter Note Name of Caller: Obi Contact Reason for Appointment: Obi called in to get patient established for urinary retention and not being able to remove gill. Please be advised Office Name: [facility] Urology [facility] 01-12-2025 Note [facility] 12-11-2024 Note [facility] 12-11-2024 Evaluation note Diagnosis Onset Date Resolution Allergic rhinitis acute November 232024 4:17pm BPPV (benign paroxysmal positional vertigo) acute December 11, 2024 4:17pm Debility acute December 11 4:17pm Depression acute December 11 4:17pm Essential (primary) hypertension acute December 11, 2024 4:17pm Hyponatremia acute December 11, 2024 4:17pm Hypothyroidism acute November 4:17pm Orthostatic hypotension acute 2024 4:17pm Osteoarthritis acute November 4:17pm CAD (coronary artery disease) chronic December 11, 2024 4:17pm Hyperlipidemia chronic November 4:17pm Closed fracture of left patella inactive December 11, 2024 4:17pm Elevated troponin inactive November 232024 4:17pm Syncope inactive December 11 4:17pm [facility] Work Phone: 1(260) 609-746203-20-2025 Discharge summary Author Donovan Cano [facility] Note Date/Time December 11, 2024 11: 52am [facility] Medical Records Department [address] [place] [address] Discharge Summary 12/11/24 0948 MR#: [id number] Acct: [id number] Name: JERO LEWIS Rep #:[id number] : 1945 79 From: Donovan buchanan DO PCP: Dr. Argelia Darby DO Status:ADM IN Location: [place] [address] Providers Date of Admission: 12/06/24 Date of [...] for Consult: low sodium EMERGENT Consult: No MD Notified: Yes Date Notified: 12/09/24 Time Notified: [...] weeks. calcium 600 mg-D3 800 unit-mag 40 ru-zxmu-wnls-joseph-boron chew tablet (Caltrate 600-D Plus Minerals) 1 [...] Patient is an 79-year-old female who presented [facility] ED on 12/06/2024 with left knee [...] history of recurrent syncope and follows with [facility] in the office. Notably had recent [...] 79.8 H, Lymph % (Auto) 9.1 L, Carroll % (Auto) 8.5, Eos % (Auto) 1.5, [...] as she is being put on PO eoclvlx20cx bid x 2 weeks for DVT prophylaxis. [...] in before D/C Order can be placed): Long-Term Facility Charges/Coding Visit Charges Inpatient E&M: 07586 Disch Hosp >30min 12/11/24 1104 <Electronically signed [...] DO; Dr. Argelia Darby DO ~* Signed [facility] Work Phone: 1(278) 717-161803-20-2025 Consult note Author Marisa Najera [facility] Note Date/Time December 11, 2024 11: 44am [facility] Medical Records Department [address] [facility] [place] [address] Counseling Note - Pharmacy 12/11/24 1144 MR#: [id number] Acct: [id number] Name: JERO LEWIS Rep #:[id number] : 1945 79 From: Marisa Najera PCP: Dr. Argelia Darby DO Status:ADM IN Y Location: [place] [address] [place] [facility] has performed discharge [...] weeks. calcium 600 mg-D3 800 unit-mag 40 hp-ezip-rfke-joseph-boron chew tablet (Caltrate 600-D Plus Minerals) 1 [...] by Marisa Najera > Date _ Marisa [employer] Signature (if applicable): Date CC: ~ Signed [facility] Work Phone: 1(915) 645-296903-20-2025 Discharge summary Author Donovan Cano [facility] Note Date/Time December 11, 2024 11: 02am [facility] Medical Records Department [address] [place] [address] [facility] MR#: [id number] Acct: [id number] Name: JERO LEWIS Rep #:[id number] : 1945 79 From: Donovan buchanan DO PCP: Dr. Argelia Darby, DO Status:ADM IN Certification of patient admission REQUIRED AT TIME OF ADMISSION. I CERTIFY THAT POST-HOSPITAL ECF SERVICES ARE REQUIRED TO BE GIVEN ON AN IN-PATIENT BASIS BECAUSE OF THE ABOVE NAMED PATIENT'S NEED FOR CUSTODIAL CARE ON A CONTINUING BASIS FOR THE CONDITION(S) FOR WHICH HE/SHE WAS RECEIVING IN-PATIENT HOSPITAL SERVICES PRIOR TO HIS/HER TRANSFER TO THE ECF. 12/11/24 1102<Electronically signed by Donovan Cano DO> [...] Patient is an 79-year-old female who presented [facility] ED on 12/06/2024 with left knee [...] history of recurrent syncope and follows with [facility] in the office. Notably had recent [...] as she is being put on PO [id number] bid x 2 weeks for DVT prophylaxis. [...] in before D/C Order can be placed): Long-Term Facility (2) Syncope Qualifiers: Syncope type: unspecified Qualified Code(s): R55 - Syncope and collapse 12/11/24 1102 <Electronically signed by Donovan Cano DO> Cosigner Signature (if applicable): CC: [facility] - ATTN: DANIELLE COKER; Dr. Sandro Jackman MD; Dr. De Snowden MD; Dr. Argelia Darby DO; Dr. Michelle Dang MD; Dr. Montse Cabrera MD~ [facility] Work Phone: 1(425) 843-893503-20-2025 Discharge summary [facility] Medical Records Department [address] [place] [address] Discharge Summary 12/11/24 0948 MR#: [id number] Acct: [id number] Name: JERO LEWIS Meenakshi Rep #:[id number] : 1945 79 From: Donovan buchanan DO PCP: Dr. Argelia Darby DO Status:ADM [facility] Prov[facility] Date of Admission: 12/06/24 [...] for Consult: low sodium EMERGENT Consult: No MD Notified: Yes Date Notified: 12/09/24 Time Notified: [...] weeks. calcium 600 mg-D3 800 unit-mag 40 oi-wwnv-mgxs-joseph-boron chew tablet (Caltrate 600-D Plus Minerals) 1 [...] Patient is an 79-year-old female who presented [facility] ED on 12/06/2024 with leftknee pain [...] history of recurrent syncope and follows with [facility] in the office. Notably had recent [...] 79.8 H, Lymph % (Auto) 9.1 L, Carroll % (Auto) 8.5, Eos % (Auto) 1.5, [...] Consulting Providers: -Attn: Danielle Coker,[facility]; Sandro Jackmna; Michelle Dang; De Snowden; Montse Cabrera Instructions [...] as she is being put on PO [id number] bid x 2 weeks forDVT prophylaxis. To [...] in before D/C Order can be placed): Long-Term Facility Charges/Coding Visit Charges Inpatient E&M: 56633 Disch Hosp >30min 12/11/24 1104 Cosigner Signature (if applicable): CC: Dr. Donovan Cano DO; Dr. Argelia Darby DO~ Signed ADDENDUM by Dr. Donovan Cano DO on 12/11/24 at 1152 Addendum Correction: Will be treating with baby aspirin twice daily for 14 days total andthen resuming home baby aspirin daily on 12/23. 12/11/24 1152 Cosigner Signature (if applicable): cc: Dr. Donovan Cano, DO; Dr. Argelia Darby, DO ~* Signed [facility]03-20-2025 Consult note [facility] Medical Records Department [address] [place] [address] Counseling Note - Pharmacy 12/11/24 1144 MR#: [id number] Acct: [id number] Name: JERO LEWIS Rep #:[id number] : 1945 79 From: Marisa Najera PCP: Dr. Argelia Darby, Status:ADM IN Y Location: [place] [address] [place] [facility] [facility] has performed discharge [...] weeks. calcium 600 mg-D3 800 unit-mag 40 tf-nyiq-dfyn-joseph-boron chew tablet (Caltrate 600-D Plus Minerals) 1 [...] 12/11/24 12/11/24 1144 > Date _ Marisa Najera Cosigner Signature (if applicable): Date CC: ~ Signed [facility]03-20-2025 Discharge summary [facility] Medical Records Department [address] [place] [address] [facility] MR#: [id number] Acct: [id number] Name: JERO LEWIS Rep #:[id number] : 1945 79 From: Donovan buchanan DO PCP: Dr. Argelia Darby, Status:ADM IN Certification of patient admission REQUIRED AT TIME OF ADMISSION. I CERTIFY THAT [facility]OSP[facility] SERVICES ARE REQUIRED TO BE GIVEN ON AN IN-PATIENT BASIS BECAUSE OF THE ABOVE NAMED PATIENT'S NEED FOR CUSTODIAL CARE ON A CONTINUING BASIS FOR THE CONDITION(S) FOR WHICH HE/SHE WAS RECEIVING IN-PATIENT HOSPITAL SERVICES PRIOR TO HIS/HER TRANSFER TO THE [facility]. 12/11/24 1102 Diet Diet Order/Speech Therapy: 12/06/24 [...] Patient is an 79-year-old female who presented [facility] ED on 12/06/2024 with leftknee pain [...] history of recurrent syncope and follows with [facility] in the office. Notably had recent [...] as she is being put on PO yjvbihg29mx bid x 2 weeks forDVT prophylaxis. To [...] in before D/C Order can be placed): Long-Term Facility (2) Syncope Qualifiers: Syncope type: unspecified Qualified Code(s): R55 - Syncope and collapse 12/11/24 1102 Cosigner Signature (if applicable): CC: [facility] - ATTN: DANIELLE COKER; Dr. Sandro Jackman MD; Dr. De Snowden MD; Dr. Argelia Darby DO; Dr. Michelle Dang MD; Dr. Montse Cabrera MD~ [facility]03-20-2025 [facility]03-19-2025 Progress note Author [facility] Note Date/Time December 10, 2024 4:3 7pm [facility] Medical Records Department [address] [place] [address] Progress Note 12/10/24 1627 MR#: [id number] Acct: [id number] Name: JERO LEWIS Rep #:[id number] : 1945 79 From: Montse Cabrera MD PCP: Dr. Argelia Darby DO Status:ADM IN Location: [place] [address] Subjective Subjective Patient seen and examined. She [...] Total 1500 / 1900 2323.33 / 2323.33 Output Total 600 / 850 350 / [...] 76.0 H, Lymph % (Auto) 12.7 L, Carroll % (Auto) 8.1, Eos % (Auto) 2.5, [...] which showed nonsustained vtach * followed with [facility] on outpatient basis * cardiology consulted; [...] no intubation. Charges/Coding Visit Charges Inpatient E&M: 86131 Subs Hosp L2 12/10/24 1637 <Electronically signed by Montse Cabrera MD> Montse Cabrera MD Cosigner Signature (if applicable): CC: ~ Signed [facility] Work Phone: 1(221) 975-963703-19-2025 Progress note [facility] Medical Records Department [address] [place] [address] Progress Note 12/10/24 1627 MR#: [id number] Acct: [id number] Name: JERO LEWIS Rep #:[id number] : 1945 79 From: Montse Cabrera MD PCP: Dr. Argelia Darby, DO Status:ADM IN Location: [place] [address] Subjective Subjective Patient seen and examined. She [...] 76.0 H, Lymph % (Auto) 12.7 L, Carroll % (Auto) 8.1, Eos % (Auto) 2.5, [...] which showed nonsustained vtach * followed with [facility] on outpatient basis * cardiology consulted; [...] no intubation. Charges/Coding Visit Charges Inpatient E&M: 25320 Subs Hosp L2 12/10/24 8257 Montse Cabrera MD Cosigner Signature (if applicable): CC: ~ Signed [facility]03-19-2025 Progress note Author Madhavi Pate [facility] Note Date/Time December 10, 2024 12: 42am [facility] Medical Records Department [address] [address] Progress Note - Hospitalist 12/10/24 0041 MR#: [id number] Acct: [id number] Name: JERO LEWIS Rep #:[id number] : 1945 79 From: Madhavi Pate MD PCP: Dr. Argelia Darby, DO Status:ADM IN Location: [place] [address] Hospitalist Note Called with repeat labs with [...] nephrology for change. Continue BMP trending 12/10/2441 <Electronically signed by Madhavi Pate MD> Cosigner Signature (if applicable): CC: ~ Signed [facility] Work Phone: 1(102) 583-352903-19-2025 Progress note [facility] Medical Records Department [address] [place] [address] Progress Note - Hospitalist 12/10/2440 MR#: [id number] Acct: [id number] Name: JERO LEWIS Rep #:[id number] : 1945 79 From: Madhavi Pate MD PCP: Dr. Argelia Darby, DO Status:ADM IN Location: [place] [address] Hospitalist Note Called with repeat labs with [...] Cosigner Signature (if applicable): CC: ~ Signed [facility]03-18-2025 Progress note Author Montse Cabrera [facility] Note Date/Time December 09, 2024 6:5 7pm [facility] Medical Records Department [address] [place] [address] Progress Note 12/09/24 1854 MR#: [id number] Acct: [id number] Name: JERO LEWIS Rep #:[id number] : 1945 79 From: Montse Cabrera MD PCP: Dr. Argelia Darby, DO Status:ADM IN Location: [place] [address] Subjective Subjective Patient seen and examined. She [...] which showed nonsustained vtach * followed with [facility] on outpatient basis * cardiology consulted; [...] no intubation. Charges/Coding Visit Charges Inpatient E&M: 87314 Subs Hosp L2 12/09/241856 <Electronically signed by Montse Cabrera MD> Montse Cabrera MD Cosigner Signature (if applicable): CC: ~ Signed [facility] Work Phone: 1(967) 114-601503-18-2025 Progress note [facility] Medical Records Department [address] [place] [address] Progress Note 12/09/241853 MR#: [id number] Acct: [id number] Name: JERO LEWIS Rep #:[id number] : 1945 79 From: Montse Cabrera MD PCP: Dr. Argelia Darby, DO Status:ADM IN Location: [place] [address] Subjective Subjective Patient seen and examined. She [...] 12/09/24 15:00 12/09/24 15:00 12/09/24 15:00 12/09/24 15:12/09/24 15:12/09/24 15:12/09/24 04:00 Oxygen Flow Rate (L/min) 2 Oxygen [...] which showed nonsustained vtach * followed with [facility] on outpatient basis * cardiology consulted; [...] no intubation. Charges/Coding Visit Charges Inpatient E&M: 27932 Subs Hosp L2 12/09/24 7641 Montse Cabrera MD Cosigner Signature (if applicable): CC: ~ Signed [facility]03-18-2025 Consult note Author Shawna Carranza [facility] Note Date/Time December 09, 2024 4:1 8pm [facility] Medical Records Department [address] [place] [address] Counseling Note - Pharmacy 12/09/24 1618 MR#: [id number] Acct: [id number] Name: JERO LEWIS Rep #:[id number] : 1945 79 From: Shawna Carranza PCP: Dr. Argelia Darby, DO Status:ADM IN Y Location: [place] [id number] 1 Pharmacy [place] [facility] Recon[facility] Pharmacy Service has performed discharge [...] weeks. calcium 600 mg-D3 800 unit-mag 40 ts-hior-qqbw-joseph-boron chew tablet (Caltrate 600-D Plus Minerals) 1 [...] Signature (if applicable): Date CC: ~ Signed [facility] Work Phone: 1(837) 221-856803-18-2025 Consult note [facility] Medical Records Department [address] [place], [place] [address] [address] Counseling Note - Pharmacy 12/09/24 1618 MR#: [id number] Acct: [id number] Name: JERO LEWIS Rep #:[id number] : 1945 79 From: Shawna Carranza PCP: Dr. Argelia Darby, DO Status:ADM IN Location: [place] [id number] [place] Med Reconciliation Pharmacy Service has performed discharge [...] weeks. calcium 600 mg-D3 800 unit-mag 40 km-leqz-ayma-joseph-boron chew tablet (Caltrate 600-D Plus Minerals) 1 [...] Signature (if applicable): Date CC: ~ Signed [facility]03-18-2025 Discharge summary Author Montse Cabrera [facility] Note Date/Time December 09, 2024 2:1 8pm [facility] Medical Records Department [address] [place] [address] Discharge Summary 12/09/24 1317 MR#: [id number] Acct: [id number] Name: JERO LEWIS Rep #:[id number] : 1945 79 From: Montse Cabrera MD PCP: Dr. Argelia Darby DO Status:ADM IN Location: [place] [address] Providers Date of Admission: 12/06/24 Date of [...] which showed nonsustained vtach * followed with [facility] on outpatient basis * cardiology consulted; [...] weeks. calcium 600 mg-D3 800 unit-mag 40 sn-yini-lurw-joseph-boron chew tablet (Caltrate 600-D Plus Minerals) 1 [...] needing skilled evaluation. She was discharged to senior care facility on 12/09/2024. She is follow-up with [...] -Attn: Danielle Coker,[facility]; Sandro Jackman; Michelle Dang Instructions Patient [...] as she is being put on PO [id number] bid x 2 weeks for DVT prophylaxis. [...] in before D/C Order can be placed): Long-Term Facility Charges/Coding Visit Charges Inpatient E&M: 01884 Disch Hosp >30min 12/09/24 1418 <Electronically signed by Montse Cabrera MD> Cosigner Signature (if applicable): CC: Dr. Argelia Darby DO; Dr. Montse Cabrera MD~ Signed [facility] Work Phone: 1(426) 762-891303-18-2025 Discharge summary Author Montse [facility] Note Date/Time December 09, 2024 1:1 7pm [facility] Medical Records Department [address] [place] [address] Transfer to [facility] MR#: [id number] Acct: [id number] Name: JERO LEWIS Rep #:[id number] : 1945 79 From: Montse Cabrera MD PCP: Dr. Argelia Darby DO Status:ADM IN Certification of patient admission REQUIRED AT TIME OF ADMISSION. I CERTIFY THAT POST-HOSPITAL ECF SERVICES ARE REQUIRED TO BE GIVEN ON AN IN-PATIENT BASIS BECAUSE OF THE ABOVE NAMED PATIENT'S NEED FOR CUSTODIAL CARE ON A CONTINUING BASIS FOR THE CONDITION(S) FOR WHICH HE/SHE WAS RECEIVING IN-PATIENT HOSPITAL SERVICES PRIOR TO HIS/HER TRANSFER TO THE [facility]. 12/09/24 1317<Electronically signed by Montse Cabrera MD> [...] which showed nonsustained vtach * followed with [facility] on outpatient basis * cardiology consulted; [...] -Attn: Danielle Coker,[facility]; Sandro Jackman; Michelle Dang Instructions Patient [...] in before D/C Order can be placed): Long-Term Facility Charges/Coding Visit Charges Inpatient E&M: 74421 Disch Hosp >30min (2) Syncope Qualifiers: Syncope type: unspecified Qualified Code(s): R55 - Syncope and collapse 12/09/24 1317 <Electronically signed by Montse Cabrera MD> Cosigner Signature (if applicable): CC: [facility] - ATTN: DANIELLE COKER; Dr. Sandro Jackman MD; Dr. Argelia Darby DO; Dr. Michelle Dang MD ~ [facility] Work Phone: 1(465) 557-826703-18-2025 Discharge summary [facility] Medical Records Department [address] [place] [address] Discharge Summary 12/09/24 1317 MR#: [id number] Acct: [id number] Name: AMERICO LEWISMARKUS Arrieta Rep #:[id number] : 1945 79 From: Montse Cabrera MD PCP: Dr. Argelia Darby DO Status:ADM [facility] Prov[facility] Date of Admission: 12/06/24 [...] which showed nonsustained vtach * followed with [facility] on outpatient basis * cardiology consulted; [...] weeks. calcium 600 mg-D3 800 unit-mag 40 ml-zoqm-prcb-joseph-boron chew tablet (Caltrate 600-D Plus Minerals) 1 [...] needing skilled evaluation. She was discharged to senior care facility on 12/09/2024. She is follow-up with [...] as she is being put on PO [id number] bid x 2 weeks forDVT prophylaxis. To [...] in before D/C Order can be placed): Long-Term Facility Charges/Coding Visit Charges Inpatient E&M: 34294 Disch Hosp >30min 12/09/24 1418 Cosigner Signature (if applicable): CC: Dr. Argelia Darby DO; Dr. Montse Cabrera MD~ Signed [facility]03-18-2025 Discharge summary [facility] Medical Records Department [address] [place] [address] [facility] MR#: [id number] Acct: [id number] Name: JERO LEWIS Rep #:[id number] : 1945 79 From: Montse Cabrera MD PCP: Dr. Argelia Darby DO Status:ADM IN Certification of patient admission REQUIRED AT TIME OF ADMISSION. I CERTIFY THAT POST-HOSPITAL F SERVICES ARE REQUIRED TO BE GIVEN ON AN IN-PATIENT BASIS BECAUSE OF THE ABOVE NAMED PATIENT'S NEED FOR CUSTODIAL CARE ON A CONTINUING BASIS FOR THE CONDITION(S) FOR WHICH HE/SHE WAS RECEIVING IN-PATIENT HOSPITAL SERVICES PRIOR TO HIS/HER TRANSFER TO THE [facility]. 12/09/24 1317 Diet Diet Order/Speech Therapy: 12/06/24 [...] which showed nonsustained vtach * followed with [facility] on outpatient basis * cardiology consulted; [...] -Attn: Danielle Coker,[facility]; Sandro Jackman; Michelle Dang Instructions Patient [...] in before D/C Order can be placed): Long-Term Facility Charges/Coding Visit Charges Inpatient E&M: 25175 Disch Hosp >30min (2) Syncope Qualifiers: Syncope type: unspecified Qualified Code(s): R55 - Syncope and collapse 12/09/24 1317 Cosigner Signature (if applicable): CC: [facility] - ATTN: DANIELLE COKER; Dr. Sandro Jackman MD; Dr. Argelia Darby DO; Dr. Michelle Dang MD ~ [facility]03-18-2025 [facility]03-17-2025 Progress note Author Montse [facility] Note Date/Time December 08, 2024 4:1 1pm [facility] Medical Records Department [address] [place] [address] Progress Note 12/08/24 1149 MR#: [id number] Acct: [id number] Name: JERO LEWIS Rep #:[id number] : 1945 79 From: Montse Cabrera MD PCP: Dr. Argelia Darby DO Status:ADM IN Location: [place] [id number]- 1 Subjective Subjective Patient seen and examined. Pain [...] 79.7 H, Lymph % (Auto) 11.2 L, Carroll % (Auto) 7.2, Eos % (Auto) 1.4, [...] which showed nonsustained vtach * followed with [facility] on outpatient basis * cardiology consulted; [...] no intubation. Charges/Coding Visit Charges Inpatient E&M: 62519 Subs Hosp L2 12/08/24 1611 <Electronically signed by Montse Cabrera MD> Montse Cabrera MD Cosigner Signature (if applicable): CC: ~ Signed [facility] Work Phone: 1(775) 284-496603-17-2025 Progress note [facility] Medical Records Department [address] [place] [address] Progress Note 12/08/24 1149 MR#: [id number] Acct: [id number] Name: JERO LEWIS Rep #:[id number] : 1945 79 From: Montse Cabrera MD PCP: Dr. Argelia Darby, DO Status:ADM IN Location: [place] [address] Subjective Subjective Patient seen and examined. Pain [...] 79.7 H, Lymph % (Auto) 11.2 L, Carroll % (Auto) 7.2, Eos % (Auto) 1.4, [...] which showed nonsustained vtach * followed with [facility] on outpatient basis * cardiology consulted; [...] no intubation. Charges/Coding Visit Charges Inpatient E&M: 07286 Subs Hosp L2 12/08/24 1611 Montse Cabrera MD Cosigner Signature (if applicable): CC: ~ Signed [facility]03-17-2025 Progress note Author Asafsan [facility] corporationhimanshu Dang [facility] Note Date/Time December 08, 2024 1:3 0pm [facility] Medical Records Department [address] [place] [address] Progress Note - Cardiology 12/08/24 1326 MR#: [id number] Acct: [id number] Name: JERO LEWIS Rep #:[id number] : 1945 79 From: Michelle harrell MD PCP: Dr. Argelia Darby, DO Status:ADM IN Location: [place] [id number]- 1 Subjective Subjective Patient's dizziness is better after starting meclizine. She is able to move herhead a little bit more without getting dizzy. Today she described that in the past her "dizzy spells", when she moves her head certain ways, [...] 79.7 H, Lymph % (Auto) 11.2 L, Carroll % (Auto) 7.2, Eos % (Auto) 1.4, [...] 79.7 H, Lymph % (Auto) 11.2 L, Carroll % (Auto) 7.2, Eos % (Auto) 1.4, [...] Cosigner Signature (if applicable): CC: ~ Signed [facility] Work Phone: 1(356) 603-448403-17-2025 Progress note [facility] Medical Records Department [address] [place] [address] Progress Note - Cardiology 12/08/24 1326 MR#: [id number] Acct: [id number] Name: JERO LEWIS Rep #:[id number] : 1945 79 From: Michelle harrell MD PCP: Dr. Argelia Darby, DO Status:ADM IN Location: [place] [id number]- 1 Subjective Subjective Patient's dizziness is better after starting meclizine. She is able to move herhead a little bit more without getting dizzy. Today she described that in the past her "dizzy spells", when she moves her head certain ways, [...] 79.7 H, Lymph % (Auto) 11.2 L, Carroll % (Auto) 7.2, Eos % (Auto) 1.4, [...] 79.7 H, Lymph % (Auto) 11.2 L, Carroll % (Auto) 7.2, Eos % (Auto) 1.4, [...] mildly elevated. Patient had coronary angiography in 2020 that showed mild nonobstructive CAD. She had [...] any further assistance please let us know. 12/08/241329 Cosigner Signature (if applicable): CC: ~ Signed [facility]03-16-2025 Progress note Author Montse Cabrera [facility] Note Date/Time December 07, 2024 2:0 0pm [facility] Medical Records Department [address] [place] [address] Progress Note 12/07/241336 MR#: [id number] Acct: [id number] Name: JERO LEWIS Rep #:[id number] : 1945 79 From: Montse Cabrera MD PCP: Dr. Argelia Darby, DO Status:ADM IN Location: [place] [address] Subjective Subjective Patient seen and examined. Her [...] 85.3 H, Lymph % (Auto) 8.6 L, Carroll % (Auto) 4.0, Eos % (Auto) 1.3, [...] 77.5 H, Lymph % (Auto) 13.1 L, Carroll % (Auto) 8.3, Eos % (Auto) 0.4, [...] acute intracranial abnormality. Senescent changes. Reading Location: [facility] Cervical Spine CT 12/06/24 16:41 IMPRESSION: No evidence of acute cervical spine fracture. Demineralization does limit sensitivity One or more dose reduction techniques were used (e.g., Automated exposure control, adjustment of the mA and/or kV according to patient size, use of iterative reconstruction technique). Reading Location: [facility] Facial/Sinus 12/06/24 16:41 IMPRESSION: No evidence of acute facial fracture. Senescent changes. One or more dose reduction techniques were used (e.g., Automated exposure control, adjustment of the mA and/or kV according to patient size, use of iterative reconstruction technique). Reading Location: [facility] Chest X-Ray 12/06/24 17:10 IMPRESSION: No acute findings. Senescent changes. Mild cardiac enlargement. Reading Location: [facility] Knee X-Ray 12/06/24 17:10 IMPRESSION: Acute patellar fracture on background demineralization. Reading Location: [facility] Rhythm Strip Rhythm Strip: Being read [...] which showed nonsustained vtach * followed with [facility] on outpatient basis * cardiology consulted; [...] full code Charges/Coding Visit Charges Inpatient E&M: 42229 Subs Hosp L2 12/07/24 1400 <Electronically signed by Montse Cabrera MD> Montse Cabrera MD Cosigner Signature (if applicable): CC: ~ Signed [facility] Work Phone: 1(200) 447-715603-16-2025 Consult note Author Michelle Dang [facility] Note Date/Time December 07, 2024 1:1 7pm [facility] Medical Records Department [address] [place] [address] Consultation - Cardiology 12/07/24 1310 MR#: [id number] Acct: [id number] Name: JERO LEWIS Rep #:[id number] : 1945 79 From: Michelle harrell MD PCP: Dr. Argelia Darby, DO Status:ADM [facility] Assessment & Plan Assessment/Plan (1) Elevated troponin: [...] breath etc. Her troponin is mildly elevated. [facility] Medical History Vertigo PVCs (premature ventricular contractions) [...] 1 tab PO BID 3 12/06/24 History ao-zpmj-ipjf-joseph-boron chew tablet (Caltrate 600-D Plus Minerals) cyanocobalamin [...] (cerebral vascular accident) Father Kimberlee disease Son [place] disease Brother Heart disease Hypertension Daughter Lupus [...] Applicable: No Charges/Coding Visit Charges Inpatient E&M: 14136 Init Hosp L2 Objective Data Vital Signs: [...] 85.3 H, Lymph % (Auto) 8.6 L, Carroll % (Auto) 4.0, Eos % (Auto) 1.3, [...] 77.5 H, Lymph % (Auto) 13.1 L, Carroll % (Auto) 8.3, Eos % (Auto) 0.4, [...] 85.3 H, Lymph % (Auto) 8.6 L, Carroll % (Auto) 4.0, Eos % (Auto) 1.3, [...] 77.5 H, Lymph % (Auto) 13.1 L, Carroll % (Auto) 8.3, Eos % (Auto) 0.4, [...] acute intracranial abnormality. Senescent changes. Reading Location: [facility] Cervical Spine CT 12/06/24 16:41 IMPRESSION: No evidence of acute cervical spine fracture. Demineralization does limit sensitivity One or more dose reduction techniques were used (e.g., Automated exposure control, adjustment of the mA and/or kV according to patient size, use of iterative reconstruction technique). Reading Location: [facility] Facial/Sinus 12/06/24 16:41 IMPRESSION: No evidence of acute facial fracture. Senescent changes. One or more dose reduction techniques were used (e.g., Automated exposure control, adjustment of the mA and/or kV according to patient size, use of iterative reconstruction technique). Reading Location: [facility] Chest X-Ray 12/06/24 17:10 IMPRESSION: No acute findings. Senescent changes. Mild cardiac enlargement. Reading Location: [facility] Knee X-Ray 12/06/24 17:10 IMPRESSION: Acute patellar fracture on background demineralization. Reading Location: [facility] 12/07/24 1317 <Electronically signed by Michelle Dang MD> Cosigner Signature (if applicable): CC: Dr. Argelia Darby, DO~ Signed [facility] Work Phone: 1(188) 104-348003-16-2025 Progress note [facility] Medical Records Department [address] [place] [address] Progress Note 12/07/24 1337 MR#: [id number] Acct: [id number] Name: JERO LEWIS Rep #:[id number] : 1945 79 From: Montse Cabrera MD PCP: Dr. Argelia Darby, DO Status:ADM IN Location: [place] [address] Subjective Subjective Patient seen and examined. Her [...] 85.3 H, Lymph % (Auto) 8.6 L, Carroll % (Auto) 4.0, Eos % (Auto) 1.3, [...] 77.5 H, Lymph % (Auto) 13.1 L, Carroll % (Auto) 8.3, Eos % (Auto) 0.4, [...] acute intracranial abnormality. Senescent changes. Reading Location: [facility] Cervical Spine CT 12/06/24 16:41 IMPRESSION: No evidence of acute cervical spine fracture. Demineralization does limit sensitivity One or more dose reduction techniques were used (e.g., Automated exposure control, adjustment of the mA and/or kV according to patient size, use of iterative reconstruction technique). Reading Location: [facility] Facial/Sinus 12/06/24 16:41 IMPRESSION: No evidence of acute facial fracture. Senescent changes. One or more dose reduction techniques were used (e.g., Automated exposure control, adjustment of the mA and/or kV according to patient size, use of iterative reconstruction technique). Reading Location: [facility] Chest X-Ray 12/06/24 17:10 IMPRESSION: No acute findings. Senescent changes. Mild cardiac enlargement. Reading Location: [facility] Knee X-Ray 12/06/24 17:10 IMPRESSION: Acute patellar fracture on background demineralization. Reading Location: [facility] Rhythm Strip Rhythm Strip: Being read [...] which showed nonsustained vtach * followed with [facility] on outpatient basis * cardiology consulted; [...] full code Charges/Coding Visit Charges Inpatient E&M: 72689 Subs Hosp L2 12/07/24 1400 Montse Cabrera MD Cosigner Signature (if applicable): CC: ~ Signed [facility]03-16-2025 Consult note [facility] Medical Records Department [address] [place] [address] Consultation - Cardiology 12/07/24 1310 MR#: [id number] Acct: [id number] Name: JERO LEWIS Rep #:[id number] : 1945 79 From: Michelle harrell MD PCP: Dr. Argelia Darby, DO Status:ADM IN Location: [place] [id number]- 1 Assessment & Plan Assessment/Plan (1) Elevated troponin: PLAN: Troponin is mildly elevated. Patient had coronary angiography in 2020 that showed mild nonobstructive CAD. She had [...] She also had a heart cath in 2020 which revealed 40% stenosesin 2 vessels. Her [...] breath etc. Her troponin is mildly elevated. [facility] Medical History Vertigo PVCs (premature ventricular contractions) SOB (shortness of breath) Sleep apnea Vitamin D deficiency RLS (restless legs syndrome) Pulmonary hypertension Myalgia MVP (mitral valve prolapse) Dizziness CAD (coronary artery disease) Vitamin B12 deficiency Fatigue Osteoarthritis Depression Debility [place] disease History of endometrial biopsy COVID-19 Chronic [...] 1 tab PO BID 3 12/06/24 History vl-qkqy-rujj-joseph-boron chew tablet (Caltrate 600-D Plus Minerals) cyanocobalamin [...] (cerebral vascular accident) Father Kimberlee disease Son [place] disease Brother Heart disease Hypertension Daughter Lupus [...] Applicable: No Charges/Coding Visit Charges Inpatient E&M: 58144 Init Hosp L2 Objective Data Vital Signs: [...] 85.3 H, Lymph % (Auto) 8.6 L, Carroll % (Auto) 4.0, Eos % (Auto) 1.3, [...] 77.5 H, Lymph % (Auto) 13.1 L, Carroll % (Auto) 8.3, Eos % (Auto) 0.4, [...] 85.3 H, Lymph % (Auto) 8.6 L, Carroll % (Auto) 4.0, Eos % (Auto) 1.3, [...] 77.5 H, Lymph % (Auto) 13.1 L, Carroll % (Auto) 8.3, Eos % (Auto) 0.4, [...] acute intracranial abnormality. Senescent changes. Reading Location: [facility] Cervical Spine CT 12/06/24 16:41 IMPRESSION: No evidence of acute cervical spine fracture. Demineralization does limit sensitivity One or more dose reduction techniques were used (e.g., Automated exposure control, adjustment of the mA and/or kV according to patient size, use of iterative reconstruction technique). Reading Location: [facility] Facial/Sinus 12/06/24 16:41 IMPRESSION: No evidence of acute facial fracture. Senescent changes. One or more dose reduction techniques were used (e.g., Automated exposure control, adjustment of the mA and/or kV according to patient size, use of iterative reconstruction technique). Reading Location: [facility] Chest X-Ray 12/06/24 17:10 IMPRESSION: No acute findings. Senescent changes. Mild cardiac enlargement. Reading Location: [facility] Knee X-Ray 12/06/24 17:10 IMPRESSION: Acute patellar fracture on background demineralization. Reading Location: [facility] 12/07/24 1317 Cosigner Signature (if applicable): CC: Dr. Argelia Darby, DO~ Signed [facility]03-16-2025 Consult note Author Luis Dozier [facility] Note Date/Time December 07, 2024 8:5 5am [facility] Medical Records Department [address] [place] [address] Consultation - Orthopedics 12/07/24 0843 MR#: [id number] Acct: [id number] Name: JREO LEWIS Rep #:[id number] : 1945 79 From: Luis Cowart PCP: Dr. Argelia Darby, DO Status:ADM IN Location: [facility] UVD514- 1 HPI Consult Data Date of Consult: [...] with the bathroom and bedroom on the mainncoor. She does use a walker/rollator throughout the home, but does not use in the bathroom. [facility] Medical History Vertigo PVCs (premature ventricular contractions) SOB (shortness of breath) Sleep apnea Vitamin D deficiency RLS (restless legs syndrome) Pulmonary hypertension Myalgia MVP (mitral valve prolapse) Dizziness CAD (coronary artery disease) Vitamin B12 deficiency Fatigue Osteoarthritis Depression Debility [place] disease History of endometrial biopsy COVID-19 Chronic [...] 1 tab PO BID 3 12/06/24 History mq-izww-jnix-joseph-boron chew tablet (Caltrate 600-D Plus Minerals) cyanocobalamin [...] HCl (From Allergy Nausea Verified 12/06/24 16:36 Darvoellis) atorvastatin AdvReac Intermediate myalgia Verified 12/06/24 16:36 codeine AdvReac Intermediate Nausea Verified 12/06/24 16:36 simvastatin AdvReac Intermediate Myalgia Verified 12/06/24 16:36 Family History Mother CVA (cerebral vascular accident) Father [place] disease Son [place] disease Brother Heart disease Hypertension Daughter Lupus [...] 85.3 H, Lymph % (Auto) 8.6 L, Carroll % (Auto) 4.0, Eos % (Auto) 1.3, [...] 77.5 H, Lymph % (Auto) 13.1 L, Carroll % (Auto) 8.3, Eos % (Auto) 0.4, [...] acute intracranial abnormality. Senescent changes. Reading Location: [facility] Cervical Spine CT 12/06/24 16:41 IMPRESSION: No evidence of acute cervical spine fracture. Demineralization does limit sensitivity One or more dose reduction techniques were used (e.g., Automated exposure control, adjustment of the mA and/or kV according to patient size, use of iterative reconstruction technique). Reading Location: [facility] Facial/Sinus 12/06/24 16:41 IMPRESSION: No evidence of acute facial fracture. Senescent changes. One or more dose reduction techniques were used (e.g., Automated exposure control, adjustment of the mA and/or kV according to patient size, use of iterative reconstruction technique). Reading Location: [facility] Chest X-Ray 12/06/24 17:10 IMPRESSION: No acute findings. Senescent changes. Mild cardiac enlargement. Reading Location: [facility] Knee X-Ray 12/06/24 17:10 IMPRESSION: Acute patellar fracture on background demineralization. Reading Location: [facility] Knee images independently reviewed. Minimally displaced [...] Patient will likely need inpatient rehabilitation or senior care as she acclimates to weightbearing restrictions and [...] and the knee immobilizer until follow-up. [facility] Office: (2) Elevated troponin: (3) Syncope: (4) NSVT (nonsustained ventricular tachycardia): 12/07/24 0855 <Electronically signed by Luis Dozier MD> Cosigner Signature (if applicable): CC: Dr. Argelia Darby, DO~ Signed [facility] Work Phone: 1(628) 898-713503-16-2025 Consult note [facility] Medical Records Department [address] [place] [address] Consultation - Orthopedics 12/07/24 0843 MR#: [id number] Acct: [id number] Name: JERO LEWIS Rep #:[id number] : 1945 79 From: Luis Cowart PCP: Dr. Argelia Darby, DO Status:ADM IN [facility] HPI Consult Data Date of Consult: [...] but does not use in the bathroom. [facility] Medical History Vertigo PVCs (premature ventricular contractions) SOB (shortness of breath) Sleep apnea Vitamin D deficiency RLS (restless legs syndrome) Pulmonary hypertension Myalgia MVP (mitral valve prolapse) Dizziness CAD (coronary artery disease) Vitamin B12 deficiency Fatigue Osteoarthritis Depression Debility [place] disease History of endometrial biopsy COVID-19 Chronic [...] 1 tab PO BID 3 12/06/24 History jw-qhkx-mgnm-joseph-boron chew tablet (Caltrate 600-D Plus Minerals) cyanocobalamin [...] History Mother CVA (cerebral vascular accident) Father [place] disease Son Kimberlee disease Brother Heart disease [...] Hematologic/Lymphatic Hematologic/Lymphatic: Reports other Details: History of [place] disease Allergic/Immunologic Allergic/Immunologic: Reports as per HPI [...] 85.3 H, Lymph % (Auto) 8.6 L, Carroll % (Auto) 4.0, Eos % (Auto) 1.3, [...] 77.5 H, Lymph % (Auto) 13.1 L, Carroll % (Auto) 8.3, Eos % (Auto) 0.4, [...] acute intracranial abnormality. Senescent changes. Reading Location: [facility] Cervical Spine CT 12/06/24 16:41 IMPRESSION: No evidence of acute cervical spine fracture. Demineralization does limit sensitivity One or more dose reduction techniques were used (e.g., Automated exposure control, adjustment of the mA and/or kV according to patient size, use of iterative reconstruction technique). Reading Location: [facility] Facial/Sinus 12/06/24 16:41 IMPRESSION: No evidence of acute facial fracture. Senescent changes. One or more dose reduction techniques were used (e.g., Automated exposure control, adjustment of the mA and/or kV according to patient size, use of iterative reconstruction technique). Reading Location: [facility] Chest X-Ray 12/06/24 17:10 IMPRESSION: No acute findings. Senescent changes. Mild cardiac enlargement. Reading Location: [facility] Knee X-Ray 12/06/24 17:10 IMPRESSION: Acute patellar fracture on background demineralization. Reading Location: [facility] Knee images independently reviewed. Minimally displaced [...] Patient will likely need inpatient rehabilitation or senior care as she acclimates to weightbearing restrictions and [...] and the knee immobilizer until follow-up. [facility] Office: (2) Elevated troponin: (3) Syncope: (4) NSVT (nonsustained ventricular tachycardia): 12/07/24 0855 Cosigner Signature (if applicable): CC: Dr. Argelia Darby, DO~ Signed [facility]03-16-2025 Discharge summary Author Rita Nowak [facility] Note Date/Time December 06, 2024 10: 12pm [facility] Medical Records Department [address] [place] [address] Emergency Department Summary 12/06/24 MR#: [id number] Acct: [id number] Name: JERO LEWIS Rep #:[id number] : 1945 79 From: Rita GAMING PCP: Dr. Argelia Darby, DO Status:ADM IN Location: [place] [address] HPI <MEKHI Raza - Last Filed: 12/06/24 [...] does not know the name or reason. 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 Senescent changes. Reading Location: [facility] Cervical Spine CT 12/06/24 16:41 IMPRESSION: No evidence of acute cervical spine fracture. Demineralization does limit sensitivity One or more dose reduction techniques were used (e.g., Automated exposure control, adjustment of the mA and/or kV according to patient size, use of iterative reconstruction technique). Reading Location: [facility] Facial/Sinus 12/06/24 16:41 IMPRESSION: No evidence of acute facial fracture. Senescent changes. One or more dose reduction techniques were used (e.g., Automated exposure control, adjustment of the mA and/or kV according to patient size, use of iterative reconstruction technique). Reading Location: [facility] Chest X-Ray 12/06/24 17:10 IMPRESSION: No acute findings. Senescent changes. Mild cardiac enlargement. Reading Location: [facility] Knee X-Ray 12/06/24 17:10 IMPRESSION: Acute patellar fracture on background demineralization. Reading Location: [facility] Chest x-ray portable, single view, interpreted by myself chronic changes no acute process. ED attending interpretation of left knee shows displaced patellar fracture. <Dr. Orville Cortez MD - Last Filed: 12/06/24 19:23> [facility] MDM Narrative Medical decision making narrative: I have personally performed a face to face assessment of the patient and have reviewed the MEJIA Note. I performed a substantive portion of the visit including all aspects of the following. 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 Senescent changes. Reading Location: [facility] Cervical Spine CT 12/06/24 16:41 IMPRESSION: No evidence of acute cervical spine fracture. Demineralization does limit sensitivity One or more dose reduction techniques were used (e.g., Automated exposure control, adjustment of the mA and/or kV according to patient size, use of iterative reconstruction technique). Reading Location: [facility] Facial/Sinus 12/06/24 16:41 IMPRESSION: No evidence of acute facial fracture. Senescent changes. One or more dose reduction techniques were used (e.g., Automated exposure control, adjustment of the mA and/or kV according to patient size, use of iterative reconstruction technique). Reading Location: [facility] Chest X-Ray 12/06/24 17:10 IMPRESSION: No acute findings. Senescent changes. Mild cardiac enlargement. Reading Location: [facility] Knee X-Ray 12/06/24 17:10 IMPRESSION: Acute patellar fracture on background demineralization. Reading Location: [facility] Chest x-ray portable, single view, interpreted [...] and Local Irrigated (ml): 250 Number of Sutures/[place]: 6 Suture Information: Ethilon, Simple and 5-0 [...] your Primary Care Provider. Call [facility] ([phone]) or report to the closest Emergency Room. Call 911 if necessary. 12/06/24 1848 <Electronically signed by Rita GAMING> Cosigner Signature (if applicable): 12/06/24 2212 <Electronically signed by Orville Cortez MD> CC: Dr. Argelia Darby, DO ~ Signed [facility] Work Phone: 1(123) 937-117103-15-2025 Discharge summary [facility] Medical Records Department [address] [place] [address] Emergency Department Summary 12/06/24 MR#: [id number] Acct: [id number] Name: JERO LEWIS Rep #:[id number] : 1945 79 From: Rita GAMING PCP: Dr. Argelia Darby, DO Status:ADM IN Location: [place] [id number] 1 HPI HPI - Fall History of Present [...] does not know the name or reason. 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 Senescent changes. Reading Location: [facility] Cervical Spine CT 12/06/24 16:41 IMPRESSION: No evidence of acute cervical spine fracture. Demineralization does limit sensitivity One or more dose reduction techniques were used (e.g., Automated exposure control, adjustment of the mA and/or kV according to patient size, use of iterative reconstruction technique). Reading Location: [facility] Facial/Sinus 12/06/24 16:41 IMPRESSION: No evidence of acute facial fracture. Senescent changes. One or more dose reduction techniques were used (e.g., Automated exposure control, adjustment of the mA and/or kV according to patient size, use of iterative reconstruction technique). Reading Location: [facility] Chest X-Ray 12/06/24 17:10 IMPRESSION: No acute findings. Senescent changes. Mild cardiac enlargement. Reading Location: [facility] Knee X-Ray 12/06/24 17:10 IMPRESSION: Acute patellar fracture on background demineralization. 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 Senescent changes. Reading Location: [facility] Cervical Spine CT 12/06/24 16:41 IMPRESSION: No evidence of acute cervical spine fracture. Demineralization does limit sensitivity One or more dose reduction techniques were used (e.g., Automated exposure control, adjustment of the mA and/or kV according to patient size, use of iterative reconstruction technique). Reading Location: [facility] Facial/Sinus 12/06/24 16:41 IMPRESSION: No evidence of acute facial fracture. Senescent changes. One or more dose reduction techniques were used (e.g., Automated exposure control, adjustment of the mA and/or kV according to patient size, use of iterative reconstruction technique). Reading Location: [facility] Chest X-Ray 12/06/24 17:10 IMPRESSION: No acute findings. Senescent changes. Mild cardiac enlargement. Reading Location: [facility] Knee X-Ray 12/06/24 17:10 IMPRESSION: Acute patellar fracture on background demineralization. Reading Location: [facility] Chest x-ray portable, single view, interpreted [...] your Primary Care Provider. Call [facility] ([phone]) or report to the closest Emergency Room. Call 911 if necessary. 12/06/24 1848 Cosigner Signature (if applicable): 12/06/24 2212 CC: Dr. Argelia Darby, DO ~ Signed [facility]03-15-2025 History and physical note Author Sandro Jackman [facility] Note Date/Time December 06, 2024 7:0 9pm [facility] Medical Records Department [address] [place] [address] H&P Exam - Hospitalist 12/06/24 1852 MR#: [id number] Acct: [id number] Name: JERO LEWIS Rep #:[id number] : 1945 79 From: Sandro Jackman MD PCP: Dr. Argelia Darby, Status:ADM IN Location: [place] [id number]- 1 HPI - General General Date of [...] spine fracture, Or intracranial bleed [facility] Medical History Allergic rhinitis Anxiety and depression CAD (coronary artery disease) [place] disease Chronic hyponatremia COVID-19 Debility Depression Dizziness [...] 1 tab PO BID 3 Unknown History ac-xlbq-mltm-joseph-boron chew tablet (Caltrate 600-D Plus Minerals) cyanocobalamin [...] 85.3 H, Lymph % (Auto) 8.6 L, Carroll % (Auto) 4.0, Eos % (Auto) 1.3, [...] acute intracranial abnormality. Senescent changes. Reading Location: [facility] Cervical Spine CT 12/06/24 16:41 IMPRESSION: No evidence of acute cervical spine fracture. Demineralization does limit sensitivity One or more dose reduction techniques were used (e.g., Automated exposure control, adjustment of the mA and/or kV according to patient size, use of iterative reconstruction technique). Reading Location: [facility] Facial/Sinus 12/06/24 16:41 IMPRESSION: No evidence of acute facial fracture. Senescent changes. One or more dose reduction techniques were used (e.g., Automated exposure control, adjustment of the mA and/or kV according to patient size, use of iterative reconstruction technique). Reading Location: [facility] Chest X-Ray 12/06/24 17:10 IMPRESSION: No acute findings. Senescent changes. Mild cardiac enlargement. Reading Location: [facility] Knee X-Ray 12/06/24 17:10 IMPRESSION: Acute patellar fracture on background demineralization. Reading Location: [facility] Echocardiogram 09/26/2023: Interpretation Summary The left [...] 06/25/2024: Interpretation: [place] a [place] 43955 beats recorded over the 24 hour period. [...] Dr. Sandro Jackman MD; Dr. Argelia Darby, ~ Signed [facility] Work Phone: 1(121) 247-817103-15-2025 History and physical note [facility] Medical Records Department [address] [place] [address] H&P Exam - Hospitalist 12/06/24 1852 MR#: [id number] Acct: [id number] Name: JERO LEWIS Rep #:[id number] : 1945 79 From: Sandro Jackman MD PCP: Dr. Argelia Darby, Status:ADM IN Location: [place] [address] HPI - General General Date of Admission: [...] spine fracture, Or intracranial bleed [facility] Medical History Allergic rhinitis Anxiety and depression CAD (coronary artery disease) [place] disease Chronic hyponatremia COVID-19 Debility Depression Dizziness [...] 1 tab PO BID 3 Unknown History kb-ataj-fnnt-joseph-boron chew tablet (Caltrate 600-D Plus Minerals) cyanocobalamin [...] (cerebral vascular accident) Father Kimberlee disease Son [place] disease Brother Heart disease Hypertension Daughter Lupus [...] 85.3 H, Lymph % (Auto) 8.6 L, Carroll % (Auto) 4.0, Eos % (Auto) 1.3, [...] acute intracranial abnormality. Senescent changes. Reading Location: [facility] Cervical Spine CT 12/06/24 16:41 IMPRESSION: No evidence of acute cervical spine fracture. Demineralization does limit sensitivity One or more dose reduction techniques were used (e.g., Automated exposure control, adjustment of the mA and/or kV according to patient size, use of iterative reconstruction technique). Reading Location: [facility] Facial/Sinus 12/06/24 16:41 IMPRESSION: No evidence of acute facial fracture. Senescent changes. One or more dose reduction techniques were used (e.g., Automated exposure control, adjustment of the mA and/or kV according to patient size, use of iterative reconstruction technique). Reading Location: [facility] Chest X-Ray 12/06/24 17:10 IMPRESSION: No acute findings. Senescent changes. Mild cardiac enlargement. Reading Location: [facility] Knee X-Ray 12/06/24 17:10 IMPRESSION: Acute patellar fracture on background demineralization. Reading Location: [facility] Echocardiogram 09/26/2023: Interpretation Summary The left [...] 06/25/2024: Interpretation: [place] were [place] 07499 beats recorded over the 24 hour period. [...] be full code for the procedure 12/06/24 3338 Cosigner Signature (if applicable): CC: Dr. Sandro Jackman MD; Dr. Argelia Darby DO~ Signed [facility]03-15-2025 Radiology Diagnostic study note [facility] [address] [place] [address] Chest 1 View (Portable) MR#: [id number] Acct: [id number] Name: JERO LEWIS Rep #: [id number] : 1945 F 79 From: Jean Claude Azevedo MD PCP: Dr. Argelia Darby DO Status: ADM IN Study:Chest 1 View (Portable) Date of Exam: 12/06/24 Exam# [id number] Ordering Dr: Rita Brice PROCEDURE: CHEST 1 VIEW (PORTABLE) 12/06/2024 REASON FOR EXAM: FALL TECHNIQUE: Frontal view of the chest. COMPARISON: None. FINDINGS: Mildly enlarged heart. Bronchial thickening. No localizing infiltrate, effusion or pneumothorax. Degenerative changes seen about the right shoulder. Tortuous thoracic aorta. RAD/Chest 1 View (Portable) IMPRESSION: No acute findings. Senescent changes. Mild cardiac enlargement. Reading Location: [facility] CC: Dr. Argelia Darby DO; MEKHI Raza ~ Tip Finisher: Signed [facility]03-15-2025 Radiology Diagnostic study note [facility] [address] [place] [address] Sinus/Facial Bone MR#: [id number] Acct: [id number] Name: JERO LEWIS Rep #: [id number] : 1945 F 79 From: Jean Claude Azevedo MD PCP: Dr. Argelia Darby DO Status: REG ER Study:Sinus/Facial Bone Date of Exam: Exam# [id number] Ordering Dr: Rita Brice PROCEDURE: SINUS/FACIAL BONE [...] use of iterative reconstruction technique). Reading Location: [facility] CC: Dr. Argelia Darby DO; MEKHI Raza ~ Tip Finisher: Signed [facility]03-15-2025 Radiology Diagnostic study note [facility] [address] [place], [place] [address] Knee 1 or 2 Views MR#: [id number] Acct: [id number] Name: JERO LEWIS Rep #: [id number] : 1945 F 79 From: Jean Claude Azevedo MD PCP: Dr. Argelia Darby DO Status: REG ER Study:Knee 1 or 2 Views Date of Exam: Exam# [id number] Ordering Dr: Rita Brice PROCEDURE: KNEE 1 OR 2 VIEWS REASON FOR EXAM: PAIN TECHNIQUE: Two-view left knee COMPARISON: None. FINDINGS: There is an acute fracture of the patellar body which is displaced approximately6 mm with a joint effusion. Demineralized bones. No dislocation RAD/Knee 1 or 2 Views IMPRESSION: Acute patellar fracture on background demineralization. Reading Location: [id number] CC: Dr. Argelia Darby DO; MEKHI Raza ~ Tip Finisher: Signed [facility]03-15-2025 Radiology Diagnostic study note [facility] [address] [place], [place] [address] Spine Cervical without Contras MR#: [id number] Acct: [id number] Name: JERO LEWIS Rep #: [id number] : 1945 From: Jean Claude Azevedo MD PCP: Dr. Argelia Darby DO Status: REG ER Study:Spine Cervical without Contras Date of Exam: 12/06/24 Exam# [id number] Ordering Dr: Rita Brice PROCEDURE: SPINE CERVICAL [...] use of iterative reconstruction technique). Reading Location: [facility] CC: Dr. Argelia Darby DO; MEKHI Raza ~ Tip Finisher: Signed [facility]03-15-2025 Radiology Diagnostic study note [facility] [address] [place], [place] [address] Brain/Head without Contrast MR#: [id number] Acct: [id number] Name: JERO LEWIS Rep #: [id number] : 1945 F 79 From: Jean Claude Azevedo MD PCP: Dr. Argelia Darby DO Status: REG ER Study:Brain/Head without Contrast Date of Exa m: 12/06/24 Exam# [id number] Ordering Dr: Rita Brice EXAM: BRAIN/HEAD WITHOUT [...] acute intracranial abnormality. Senescent changes. Reading Location: [facility] CC: Dr. Argelia Darby DO; MEKHI aRza ~ Tip Finisher: Signed [facility]12-05-2024 Evaluation note* Diagnosis Onset Date Resolution [...] to ambulate acute December 06, 2024 6:05pm [facility] Work Phone: 1(755) 443-737312-05-2024 Evaluation note* Diagnosis Onset Date Resolution Status Admit Date CAD (coronary artery disease) chroni c August 28, 2024 2:24pm Dizziness chronic August 28, 2024 2:24pm Grade I diastolic dysfunction chroni c August 28, 2024 2:24pm HTN (hypertension) chronic Dece 2023 2:24pm Mitral valve insufficiency chronic August [...] acute December 06, 2024 6:45pm Syncope acute March 15th, 20 25 6:45pm Unable to ambulate acute December 06, 2024 6:45pm NSVT (nonsustained ventricul ar tachycardia) chronic December 06, 2024 6:45pm [facility] Work Phone: 1(589) 692-574712-02-2024 Note* Exam Date Time Procedure Performing Provider Status 08/25/24 4:17 PM Echocardiogram, Adult - CV Auth (Verified) [facility] 12-02-2024 Note ORIGINAL EXAMINATION: BONE DENSITOMETRY 08/25/2024 [...] Date: 08/25/2024 3:40:14 PM Ordering Provider: ARGELIA [facility]08-22-2024 Note ORIGINAL EXAMINATION: CT Angiogram of the [...] Sign Date: 05/15/2024 9:48:09 AM Ordering Provider: [facility]08-22-2024 Note ORIGINAL EXAMINATION: CTA neck: TECHNIQUE: Contiguous [...] Date: 05/15/2024 9:55:06 AM Ordering Provider: ARGELIA [facility]08-22-2024 Note* Exam Date Time Procedure Performing Provider Status 05/15/24 8:16 AM VL Carotid US/Dopple r Complete - CV Auth (Verified) [facility] 12-10-2023 Hospital Discharge instructions Patient Education 09/02/2023 [...] when standing up too quickly or straining 4622-3607 [employer]. [address] [place] [address], [place] [address]. All rights reserved. This information is not [...] about: All medicines you take, including prescription, ivqo-vop-grzvpij, herbs, and supplements Any other symptoms you [...] Chest, arm, neck, back, or jaw pain 6305-7530 [employer]. [address] [place] [address]. All rights reserved. This information is not intended as a substitute for professional medical care. Always follow yourhealthcare professional's instructions. Follow Up Care 09/02/2023 11:01:47 With:ARGELIA DARBY DO Address: [address] [facility] [place] [address] [phone] When:2-4 days [facility] 12-10-2023 Emergency department Discharge summary Discharge Instructions Thank you for allowing [facility] to assist you with your healthcare needs. The following is importantdischarge information regarding your hospital visit. Diagnosis from Today's Visit Dizziness Head pressure What to Do Next Instructions from Your Care Team No qualifying data available. Post Acute Orders No qualifying data available. You Need to Schedule the Following Appointments Follow Up with ARGELIA DARBY DO When Within 2-4 days Where: [address] [facility] [place] [address]- [phone] Allergies ASA/caffeine/propoxyphene (Unknown) Darvon (vomiting) atorvastatin (Unknown) [...] when standing up too quickly or straining [phone] [employer]. [address] [place], [place] [address]. All rights reserved. This information is not intended as a substitute for professional medical care. Always follow yourhealthcare professional's instructions. Dizziness (Uncertain Cause) Dizziness is a common symptom. It may be described as lightheadedness, spinning, or feeling like you are going to faint. Dizziness can have many causes. Be sure to tell the healthcare provider about: All medicines you take, including prescription, vhzh-msc-xxpsayn, herbs, and supplements Any other symptoms you [...] Chest, arm, neck, back, or jaw pain 5017-5607 [employer]. [address] [place] [address], [place] [address]. All rights reserved. This information is not intended as a substitute for professional medical care. Always follow yourhealthcare professional's instructions. Additional Information VACCINATE! IT SAVES LIVES! Members of the community who have not yet received the COVID-19 vaccine and would like to receive it can visit one of [facility] vaccine clinics. There are many vaccine clinic locations within the [facility]. For locations and available times, please visit www.gettheshot.coronavirus.[place].gov/. It is important to note that some COVID mobile vaccine clinics are held outdoors and may be canceled in rainy or stormy conditions. To learn more about pediatric vaccinations (ages 5-11), we invite you to visit the [facility] webpage. https://www.[facility].org/pages/9181-Lktft-Quhcwadeihj-Ntlaccpato-Oqsby-Ipd stions.htmlTo learn more about the COVID-19 vaccine, we invite you to visit the CDC website for a list of frequently asked questions. https://www.cdc.gov/coronavirus/2019-ncov/vaccines/faq.html [facility] Patient Portal Access Instructions: Stay connected with your healthcare team and access your personal medical information anytime with the [facility] [employer] Patient Portal. If you would like a full copy of your medical records please contact the [facility] Medical Records Department Sunday through Sunday between 8a.m. and 4:30p.m. Please follow the directions below to access the portal: 1.Access the email account you provided upon registration to the [facility].2.Look for an invitation email from [facility].3.Open the email and access the invitation link: Accept Invitation to [facility]4.Fill in the required french to create your account. Sign into [email or web address] with your username and password that you [...] you will allow to register on the [facility] Patient Portal for access to your information. You can also access the [facility] Patient Portal on the [employer] mejia. Simply click on "Health Records" under "HealthData" and then click on the [facility] logo. [...] Call your local pharmacy or go to http://bit.Roomlr/[email or web address] to find one close to you.3.Make use of household items: Use cat litter or old coffee grounds to dispose medications if other options arenot available. Mix your drugs with these household products, seal them in an airtight container andthrow it into the garbage. Call [facility]: [phone] to be sure your drugs can be [...] been reviewed and explained to me and IXI MARTHA E understand my current condition and have read and understand these discharge instructions. I have received a written copy of the plan/instructions. If I have questions, I am aware that I should contact my doctor. 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: Date/Time: Relationship to Patient: Witness Name/Signature: Date/Time: [facility]12-10-2023 Note ORIGINAL EXAMINATION: ONE XRAY VIEW OF [...] Sign Date: 09/02/2023 12:13:24 PM Ordering Provider: [facility]12-10-2023 Note ORIGINAL EXAMINATION: CT OF THE HEAD [...] Sign Date: 09/02/2023 12:12:26 PM Ordering Provider: [facility]12-10-2023 NoteSinus rhythm Borderline left axis deviation Anteroseptal infarct, old Compared to ECG at 07/27/2023 20:20:02 BORDERLINE ECG Electronic Signature: YAZMIN ANDERS DO 09/02/2023 11:44:59[facility] 11-15-2023 Discharge summary Author Juan Diego Marks [facility] August 08, 2023 7:38pm Note Date/Time August 08, 2023 7:34pm [facility] Medical Records Department [address] [place] [address] Discharge Summary 08/08/231931 MR#: [id number] Acct: [id number] Name: JERO LEWIS Rep #:[id number] : 1945 77 From: Juan Diego Marks MD PCP: Dr. Argelia Darby DO Status:ADM IN Location: [place] [address] Providers Date of Admission: 07/31/23 Primary Care Physician: Dr. Argelia Darby DO Reason For Visit: HYPONATREMIA/COVID Diagnosis Discharge [...] discharge home alone. Discharge home alone 08/14/2023, [employer] PT, [facility] [place]. Physical Exam Const alert General [...] (Auto) 43.2 L, Lymph % (Auto) 39.3, Carroll % (Auto) 9.7, Eos % (Auto) 6.6 [...] pain Additional Instructions: Discharge home alone 08/14/2023, [employer] [facility], [facility] [place]. Please Follow Up With: Dr. Snowden Meaningful Use Info Meaningful Use Diagnoses (Choose all that apply): None applicable Discharge Plan Admission Admit Date/Time: 07/31/23 15:21 Primary Reason for Your Visit: Debility. Attending Provider: Juan Diego Marks [facility] Primary Care Provider: Argelia Darby Instructions Additional Instructions / Restrictions: Discharge home alone 08/14/2023, [employer] PT, [facility] [place]. Discharge Orders/Prescriptions Prescriptions: New acetaminophen 500 mg [...] in instructions Referrals / Follow Up: Argelia Darby, [Primary Care Provider] - Disposition Disposition (needs filled in before D/C Order can be placed): Home, Self Care 08/08/231937 <Electronically signed by Juan Diego Marks MD> Cosigner Signature (if applicable): CC: Dr. Argelia Darby, DO; Dr. Juan Diego Marks MD~ Signed [facility] Work Phone: 1(217) 334-476511-09-2023 Progress note Author Marisa Najera [facility] August 02, 2023 10:43am Note Date/Time August 02, 2023 1 0:11am [facility] Medical Records Department [address] [place] [address] Progress Note - Pharmacy 08/02/23 1006 MR#: [id number] Acct: [id number] Name: JERO LEWIS Rep #:[id number] : 1945 77 From: Marisa Najera PCP: Dr. Argelia Darby, Status:ADM IN Location: [place] [address] TCU RX Drug Regimen Review Subjective/Objective Subjective/Objective: [...] 10:00 Menthol/Lanolin/Calamine/Znox 113 Gm Tube TOPICAL BID [facility] Protocol Enoxaparin Sodium 40 mg 08/01/23 06:00 [...] Cosigner Signature (if applicable): CC: ~ Signed [facility] Work Phone: 1(169) 478-134911-08-2023 History and physical note Author Juan Diego Marks [facility] August 01, 2023 5:35pm Note Date/Time July 31, 2023 4 :23pm [facility] Medical Records Department [address] [place] [address] History & Physical Exam 07/31/23 1619 MR#: [id number] Acct: [id number] Name: JERO LEWIS Rep #:[id number] : 1945 77 From: Juan Diego Marks MD PCP: Dr. Argelia Darby, DO Status:ADM IN Location: [place] [address] HPI - General General Date of Admission: 07/31/23 Date of Service: 07/31/23 Chief Complaint: Here for rehabilitation. HPI Narrative JERO LEWIS, is a 77 Female who presents with followin07/28/2023 Admit to [facility] from [facility]. +covid 07/24/2023, fatigue, malaise, nausea/vomiting, dizziness, loose stools, sore throat, myalgias, chills. Sodium 119, chronic hyponatremia on sodium chloride tablets, Chest X-ray negative. [facility] Emergency department gave normal saline 750ml iv, KCL 40meq,Magnesium 2gm iv, Zofran 4mg iv, Morphine 2mg iv, Tylenol 650mg x 1. IV fluids for hyponatremia, dehydration. Repeat magnesium level. 07/28/2023 Pulsox 100% on room air. Consult Nephrology for hyponatremia. 07/29/2023 Doing well. Stop HCTZ for hyponatremia. Magnesium level 2.1. 07/30/2023 Weak, unsafe to go home to [facility], recommend SNF. Decadron not necessary for covid. Sodium chloride 1gm bid, stop Lasix, stop HCTZ, stop Sertraline for hyponatremia. 07/31/2023 Admit to TCU with debility, here for rehabilitation, strengthening, prior to discharge home with . 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 08/01/23 1735<Electronically signed by Juan Diego Marks MD> Cosigner Signature (if applicable): cc: Dr. Argelia Darby DO; Dr. Juan Diego Marks MD ~* Signed [facility] Work Phone: 1(916) 382-320411-07-2023 Progress note Author De Snowden [facility] July 31, 2023 12:46pm Note Date/Time July 31, 2023 1 2:46pm [facility] Medical Records Department [address] [place] [address] Progress Note - Nephrology 07/31/23 1244 MR#: [id number] Acct: [id number] Name: JERO LEWIS Rep #:[id number] : 1945 77 From: De arenas MD PCP: Dr. Argelia Darby DO Status:ADM [facility] Subjective Subjective No new events Objective Data [...] % (Auto) 67.4, Lymph % (Auto) 21.0, Carroll% (Auto) 8.6, Eos % (Auto) 2.2, Baso [...] daily. Discharge planning discussed with hospitalist 07/31/23 7150 <Electronically signed by De Snowden MD> Cosigner Signature (if applicable): CC: ~ Signed [facility] Work Phone: 1(876) 488-384111-06-2023 Progress note Author Natalya Wright [facility] July 30, 2023 5:01pm Note Date/Time July 30, 2023 5 :01pm [facility] Medical Records Department [address] [place] [address] Progress Note - Hospitalist 07/30/23 1658 MR#: [id number] Acct: [id number] Name: JERO LEWIS Rep #:[id number] : 1945 77 From: Natalya Wright MD PCP: Dr. Argelia Darby, DO Status:ADM IN [place] [facility] [place] Reason for Visit Reason for Visit: Diagnoses [...] replacement was given repeat serum potassium normal. Feed Mixer consulted. 07/29/2023: Awaiting lab work today, she [...] documentation, 37minutes Charges/Coding Visit Charges Inpatient E&M: 32195 Subs Hosp L2 07/30/23 1701 <Electronically signed by Natalya Wright MD> Cosigner Signature (if applicable): CC: ~ Signed [facility] Work Phone: 1(983) 892-429911-05-2023 Progress note Author Trever Viveros [facility] July 29, 2023 8:34am Note Date/Time July 29, 2023 8 :29am [facility] Medical Records Department [address] [place] [address] Progress Note - Hospitalist 07/29/23 0825 MR#: [id number] Acct: [id number] Name: JERO LEWIS Rep #:[id number] : 1945 77 From: Trever pickering MD PCP: Dr. Argelia Darby, DO Status:ADM IN Location: MS3 ML744-0 Subjective Subjective Normal doing well, no issues [...] replacement was given repeat serum potassium normal. Feed Mixer consulted. 07/29/2023: Awaiting lab work today, she [...] temporally hold as could be contributing. 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 #9. Allergic rhinitis: If needed may add patient azelastine nasal spray. DVT: Lovenox Charges/Coding Visit Charges Inpatient E&M: 69902 Subs Hosp L2 07/29/23 0834 <Electronically signed by Trever Viveros MD> Cosigner Signature (if applicable): CC: ~ Signed [facility] Work Phone: 1(892) 861-778111-04-2023 Consult note Author De Snowden [facility] July 28, 2023 1:08pm Note Date/Time July 28, 2023 1 :08pm [facility] Medical Records Department [address] [place] [address] Consultation - Nephrology 07/28/23 1305 MR#: [id number] Acct: [id number] Name: JERO LEWIS Rep #:[id number] : 1945 77 From: De arenas MD PCP: Dr. Argelia Darby, DO Status:ADM JON Location: [place] [address]-1 Assessment & Plan Assessment/Plan (1) Hyponatremia: PLAN: [...] gain recently. No significant edema. [facility] Medical History Allergic rhinitis Anxiety and depression Prineville disease Chronic hyponatremia COVID-19 History of endometrial [...] MD) Mother CVA (cerebral vascular accident) Father Prineville disease Son Prineville disease Brother Heart disease Hypertension Daughter Lupus [...] 86.0 H, Lymph % (Auto) 10.1 L, Carroll % (Auto) 3.1, Eos % (Auto) 0.2, [...] Snowden MD; Dr. Argelia Darby, DO~ Signed [facility] Work Phone: 1(370) 733-580111-04-2023 Progress note Author Brooks Carcamo [facility] July 28, 2023 11:52am Note Date/Time July 28, 2023 7 :32am [facility] Medical Records Department [address] [place] [address] Progress Note - Hospitalist 07/28/23 0730 MR#: [id number] Acct: [id number] Name: JERO LEWIS Rep #:[id number] : 1945 77 From: Brooks Cowart PCP: Dr. Argelia Darby, DO Status:ADM JON Location: CT3 AX210-0 Reason for Visit Reason for Visit: Diagnoses [...] 86.0 H, Lymph % (Auto) 10.1 L, Carroll % (Auto) 3.1, Eos % (Auto) 0.2, [...] tablets by PCP. She does not follow postal carrier. Physical exam General: Alert, Oriented x3, Cooperative [...] was directly admitted on [facility] floor from [facility] on 07/28/23 admitted with persistent cough [...] replacement was given repeat serum potassium normal. Feed Mixer consulted. #3. Hypomagnesia: Magnesium from outside facility [...] intubation status. Charges/Coding Visit Charges Inpatient E&M: 98895 Subs Hosp L2 07/28/23 1152 <Electronically signed by Brooks Carcamo MD> Cosigner Signature (if applicable): CC: ~ Signed [facility] Work Phone: 1(135) 703-172011-04-2023 History and physical note Author Madhavi Pate [facility] July 28, 2023 1:30am Note Date/Time July 28, 2023 1 2:22am [facility] Medical Records Department [address] [place] [address] H&P Exam - Hospitalist 07/28/23 0038 MR#: [id number] Acct: [id number] Name: JERO LEWIS Rep #:[id number] : 1945 77 From: Madhavi Pate MD PCP: Dr. Argelia Darby, DO Status:ADM JON Location: [place] [address] HPI - General General Date of Admission: 07/28/23 Date of Service: 07/28/23 Chief Complaint: Cough, N/V, + COVID diagnosis HPI Narrative The patient is a 77 y/o F w/ PMHx: Chronic hyponatremia (prior rx ordered for sodium tablets but no obvious labs consistent with hyponatremia upon review of outside records thus unclear), Hypothyroidism, HLD, HTN, Anxiety and Depression who presents to the [facility] as a direct admission from [facility] on 07/28/23 w/ history of COVID [...] congestion. Patient presented to the outside facility [facility] ED on 07/27/2023 and work-up at [...] no acute cardiopulmonary findings otherwise. Fromreview of clin[facility] records patient had a COVID-19 positive result [...] mg po x 1. [facility] recent records (unverified): Amlodipine 5 mg [...] tablets on Sunday, Sunday, Sunday [facility] Medical History Allergic rhinitis Anxiety and depression [...] MD) Mother CVA (cerebral vascular accident) Father Prineville disease Son Kimberlee disease Brother Heart disease [...] Anxiety and Depression who presents to the [facility] as a direct admission from [facility] on 07/28/23 w/ history of COVID [...] temporally hold as could be contributing. 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 Charges/Coding Visit Charges Inpatient E&M: 17383 Init Hosp L3 Procedures Hospitalists Procedures: 76181 Advncd Care Plan 30 Min 07/28/23 0130 <Electronically signed by Madhavi Pate MD> Cosigner Signature (if applicable): CC: Dr. Madhavi Pate MD; Dr. Argelia Darby DO~ Signed [facility] Work Phone: 1(424) 143-306811-03-2023 Note ORIGINAL EXAMINATION: TWO XRAY VIEWS OF [...] Date: 07/27/2023 8:42:35 PM [facility]ing [facility] Note Sinus rhythm Borderline left axis deviation Anteroseptal infarct, old Nonspecific repol abnormality, diffuse leads Compared to ECG at 06/20/2021 17:38:08 Electronic Signature: RASHEL SPANGLER DO 07/27/2023 20:35:36[facility] 10-31-2023 SARS-CoV-2 (COVID-19) RNA YOLANDA+probe Ql (Nph) Positive *ABN* (07/24/23 2:06 PM)AO Auto Urine [id number] Note ORIGINAL EXAMINATION: BONE DENSITOMETRY 08/23/2022 11:52 [...] 08/23/2022 1:33:00 PM Ordering Provider: ARGELIA DARBY [facility]11-30-2022 Note ORIGINAL EXAMINATION: BONE DENSITOMETRY 08/23/2022 11:52 [...] Date: 08/23/2022 1:33:00 PM Ordering [facility] note Author Joni Funk [facility] July 31, 2023 2:11pm Note Date/Time July 31, 2023 2 :11pm [facility] Medical Records Department [address] [place] [address] Counseling Note - Pharmacy 07/31/23 1410 MR#: [id number] Acct: [id number] Name: JERO LEWIS Rep #:[id number] : 1945 77 From: Joni Funk PCP: Dr. Argelia Darby DO Status:ADM IN Location: [address] Med Reconciliation Pharmacy Service has performed discharge [...] Signature (if applicable): Date CC: ~ Signed [facility] Work Phone: Discharge summary Author Natalya Wright [facility] July 31, 2023 2:04pm Note Date/Time July 31, 2023 2 :01pm [facility] Medical Records Department [address] [place] [address] [facility] MR#: [id number] Acct: [id number] Name: JERO LEWIS Rep #:[id number] : 1945 77 From: Natalya Wright MD PCP: Dr. Argelia Darby, DO Status:ADM IN Certification of patient admission REQUIRED AT TIME OF ADMISSION. I CERTIFY THAT POST-HOSPITAL ECF SERVICES ARE REQUIRED TO BE GIVEN ON AN IN-PATIENT BASIS BECAUSE OF THE ABOVE NAMED PATIENT'S NEED FOR CUSTODIAL CARE ON A CONTINUING BASIS FOR THE CONDITION(S) FOR WHICH HE/SHE WAS RECEIVING IN-PATIENT HOSPITAL SERVICES PRIOR TO HIS/HER TRANSFER TO THE [facility]. 07/31/23 1404<Electronically signed by Natalya Wright MD> [...] Anxiety and Depression who presents to the [facility] as a direct admission from [facility] on 07/28/23 for a sodium of [...] to 1 g twice daily by the postal carrier and zoloft has been discontinued to help [...] sodium in 2 to 3 days [facility]. Please call their office [...] to 1 g twice daily by the postal carrier and zoloft has been discontinued to help [...] sodium in 2 to 3 days through [facility] office. Please call their office [...] in before D/C Order can be placed): Long-Term Facility 07/31/234 <Electronically signed by Natalya Wright MD> Cosigner Signature (if applicable): CC: Dr. Madhavi Pate MD; Dr. De Snowden MD; Dr. Argelia Darby DO; Dr. Trever Viveros MD; Dr. Natalya Wright MD; Dr. Brooks Carcamo MD ~ [facility] Work Phone: Discharge summary Author Natalya Wright [facility] July 31, 2023 2:05pm Note Date/Time July 31, 2023 2 :05pm [facility] Medical Records Department [address] [place] [address] Discharge Summary 07/31/23 1404 MR#: [id number] Acct: [id number] Name: JERO LEWIS Rep #:[id number] : 1945 77 From: Natalya Wright MD PCP: Dr. Argelia Darby DO Status:ADM IN [place] [facility] [place]-7 Providers Date of Admission: 07/28/23 Date of [...] Kimberlee disease carrier status #9. Allergic rhinitis Medications [...] 40 mg PO DAILY see md 07/28/23 sodium chloride 1,000 mg soluble tablet 1,000 mg PO BID #60 tabs 07/31/23 Hospital Course Summary of Care Provided Minutes Spent on Discharge: 35 Hospital Course: 77 y/o F w/ PMHx: Chronic hyponatremia (prior rx ordered for sodium tablets but no obvious labs consistent with hyponatremia upon review of outside records thusunclear), Hypothyroidism, HLD, HTN, Anxiety and Depression who presents to the [facility] as a direct admission from [facility] on 07/28/23 for a sodium of [...] to 1 g twice daily by the postal carrier and zoloft has been discontinued to help [...] sodium [facility] 2 [facility]. Please call their office [...] % (Auto) 67.4, Lymph % (Auto) 21.0, Carroll% (Auto) 8.6, Eos % (Auto) 2.2, Baso [...] to 1 g twice daily by the postal carrier and zoloft has been discontinued to help [...] sodium in 2 to 3 days through [facility] office. Please call their office [...] Snowden MD [Med Staff - Consulting] - Wilner,Argelia, DO [Primary Care Provider] - Within 1 Week Disposition Disposition (needs filled in before D/C Order can be placed): Long-Term Facility Charges/Coding Visit Charges Inpatient E&M: 75987 Disch Hosp >30min 07/31/23 1405 <Electronically signed by Natalya Wright MD> Cosigner Signature (if applicable): CC: Dr. Argelia Darby DO; Dr. Natalya Wright MD~ Signed [facility] Work Phone: Evaluation + Plan note Future Appointments Appointment Date:07/27/2021 02:00:00 PM Scheduled Provider:SHAYNE GONZALEZ Location:[facility] Appointment Type:CV OV Appointment Date:09/13/2021 10:00:00 AM Scheduled Provider:ARGELIA DARBY DO Location:[facility] Appointment Type:PC OV Appointment Date:09/29/2021 11:30:00 AM Scheduled Provider:SHAYNE GONZALEZ Location:[facility] Appointment Type:CV OV [facility] Evaluation + Plan note Future Appointments Appointment Date:08/31/2021 02:00:00 PM Scheduled Provider:SHAYNE GONZALEZ Location:[facility] Appointment Type:CV OV Appointment Date:09/13/2021 10:00:00 AM Scheduled Provider:ARGELIA DARBY DO Location:[facility] Appointment Type:PC OV Appointment Date:09/29/2021 11:30:00 AM Scheduled Provider:SHAYNE GONZALEZ Location:[facility] Appointment Type:CV OV [facility] Evaluation + Plan note Future Appointments Appointment Date:03/01/2022 01:15:00 PM Scheduled Provider:SHAYNE GONZALEZ Location:[facility] Appointment Type:CV OV Appointment Date:04/05/2022 11:00:00 AM Scheduled Provider:ARGELIA DARBY DO Location:[facility] Appointment Type:PC OV Future Scheduled Tests Laboratory* Basic Metabolic Panel 10/06/21 * Thyroid Stimulating Hormone 12/04/21 [facility] Evaluation + Plan note Future Appointments Appointment Date:03/01/2022 01:15:00 PM Scheduled Provider:SHAYNE GONZALEZ Location:[facility] Appointment Type:CV OV Appointment Date:04/05/2022 11:00:00 AM Scheduled Provider:ARGELIA DARBY DO Location:[facility] Appointment Type:PC OV Future Scheduled Tests Laboratory* Basic Metabolic Panel 10/13/21 * Thyroid Stimulating Hormone 12/04/21 [facility] Evaluation + Plan note Future Appointments Appointment Date:03/01/2022 01:15:00 PM Scheduled Provider:SHAYNE GONZALEZ Location:[facility] Appointment Type:CV OV Appointment Date:04/05/2022 11:00:00 AM Scheduled Provider:ARGELIA DARBY DO Location:[facility] Appointment Type:PC OV Future Scheduled Tests Laboratory* Thyroid Stimulating Hormone 12/04/21 [facility] Evaluation + Plan note Future Appointments Appointment Date:12/09/2021 09:30:00 AM Scheduled Provider: Location:[facility] Appointment Type:PT Outpatient Evaluation Appointment Date:03/01/2022 01:15:00 PM Scheduled Provider:SHAYNE OGNZALEZ Location:[facility] Appointment Type:CV OV Appointment Date:04/05/2022 11:00:00 AM Scheduled Provider:ARGELIA DARBY DO Location:[facility] Appointment Type:PC OV [facility] Evaluation + Plan note Future Appointments Appointment Date:03/01/2022 01:15:00 PM Scheduled Provider:SHAYNE GONZALEZ Location:[facility] Appointment Type:CV OV Appointment Date:04/05/2022 11:00:00 AM Scheduled Provider:ARGELIA DARBY DO Location:[facility] Appointment Type:PC OV [facility] Evaluation + Plan note Future Appointments Appointment Date:07/11/2022 11:30:00 AM Scheduled Provider:ARGELIA DARBY DO Location[facility] Appointment Type:PC Wellness Medicare Appointment Date:09/06/2022 01:00:00 PM Scheduled Provider:SHAYNE GONZALEZ Location[facility] Appointment Type:CV OV Appointment Date:10/10/2022 11:00:00 AM Scheduled Provider:ARGELIA DARBY DO Location:[facility] Appointment Type:PC OV Follow Up Future Scheduled Tests Laboratory* Basic Metabolic Panel 04/19/22 [facility] Evaluation + Plan note Future Appointments Appointment Date:07/11/2022 11:30:00 AM Scheduled Provider:ARGELIA DARBY DO Location:[facility] Appointment Type: Wellness Medicare Appointment Date:09/06/2022 01:00:00 PM Scheduled Provider:SHAYNE GONZALEZ Location:[facility] Appointment Type:CV OV Appointment Date:10/10/2022 11:00:00 AM Scheduled Provider:ARGELIA DARBY DO Location:[facility] Appointment Type:PC OV Follow Up [facility] Evaluation + Plan note Future Appointments Appointment Date:09/06/2022 01:00:00 PM Scheduled Provider:SHAYNE GONZALEZ Location:[facility] Appointment Type:CV OV Appointment Date:12/26/2022 11:00:00 AM Scheduled Provider:ARGELIA DARBY DO Location:[facility] Appointment Type:PC OV Follow Up [facility] Evaluation + Plan note Future Appointments Appointment Date:01/29/2023 01:30:00 PM Scheduled Provider:SHAYNE GONZALEZ Location:[facility] Appointment Type:CV OV [facility] Evaluation + Plan note Future Appointments Appointment Date:01/29/2023 01:30:00 PM Scheduled Provider:SHAYNE GONZALEZ Location:[facility] Appointment Type:CV OV Future Scheduled Tests Laboratory* Complete Metabolic Panel 02/26/23 [facility] Evaluation + Plan note Future Appointments Appointment Date:05/01/2023 01:00:00 PM Scheduled Provider:SHAYNE GONZALEZ Location:[facility] Appointment Type:CV OV Appointment Date:07/13/2023 02:00:00 PM Scheduled Provider:ARGELIA DARBY DO Location:[facility] Appointment Type:PC Wellness Medicare Future Scheduled Tests Laboratory* Complete Metabolic Panel 02/26/23 [facility] Evaluation + Plan note Future Appointments Appointment Date:07/24/2023 10:45:00 AM Scheduled Provider: Location:[facility] Appointment Type:PC Nurse Injection Appointment Date:09/07/2023 11:30:00 AM Scheduled Provider:ARGELIA DARBY DO Location:[facility] Appointment Type:PC OV Appointment Date:11/13/2023 01:00:00 PM Scheduled Provider:SHAYNE GONZALEZ Location:[facility] Appointment Type:CV OV Future Scheduled Tests Laboratory* Complete Metabolic Panel 02/26/23 [facility] Evaluation + Plan note Future Appointments Appointment Date:08/21/2023 10:45:00 AM Scheduled Provider: Location:[facility] Appointment Type:PC Nurse Appointment Date:09/07/2023 11:30:00 AM Scheduled Provider:ARGELIA DARBY DO Location:[facility] Appointment Type:PC OV Appointment Date:11/13/2023 01:00:00 PM Scheduled Provider:SHAYNE GONZALEZ Location:[facility] Appointment Type:CV OV Diagnostic Tests Pending * Urinalysis 07/27/23 Future Scheduled Tests Laboratory* Complete Metabolic Panel 02/26/23 [facility] evaluation + Plan note Future Appointments Appointment Date:08/21/2023 10:45:00 AM Scheduled Provider: Location:[facility] Appointment Type:PC Nurse Appointment Date:09/07/2023 11:30:00 AM Scheduled Provider:ARGELIA DARBY DO Location:[facility] Appointment Type:PC OV Appointment Date:11/13/2023 01:00:00 PM Scheduled Provider:SHAYNE GONZALEZ Location:[facility] Appointment Type:CV OV Future Scheduled Tests Laboratory* Complete Metabolic Panel 02/26/23 [facility] Evaluation + Plan note Future Appointments Appointment Date:09/07/2023 11:30:00 AM Scheduled Provider:ARGELIA DARBY DO Location:[facility] Appointment Type:PC OV Appointment Date:09/25/2023 11:30:00 AM Scheduled Provider: Location:[facility] Appointment Type:PC Nurse Appointment Date:11/13/2023 01:00:00 PM Scheduled Provider:SHAYNE GONZALEZ Location:[facility] Appointment Type:CV OV Future Scheduled Tests Laboratory* Complete Metabolic Panel 08/22/23 [facility] Evaluation + Plan note Future Appointments Appointment Date:11/13/2023 01:00:00 PM Scheduled Provider:SHAYNE GONZALEZ Location:[facility] Appointment Type:CV OV [facility] Evaluation + Plan note Future Appointments Appointment Date:12/19/2023 02:15:00 PM Scheduled Provider: Location:[facility] Appointment Type:PC Nurse Injection Appointment Date:01/24/2024 02:30:00 PM Scheduled Provider:ARGELIA DARBY DO Location:[facility] Appointment Type:PC OV Future Scheduled Tests Laboratory* Basic Metabolic Panel 12/05/23 [facility] Evaluation + Plan note Future Appointments Appointment Date:12/19/2023 02:15:00 PM Scheduled Provider: Location:[facility] Appointment Type:PC Nurse Injection Appointment Date:01/24/2024 02:30:00 PM Scheduled Provider:ARGELIA DARBY DO Location:[facility] Appointment Type:PC OV [facility] Evaluation + Plan note Future Appointments Appointment Date:03/13/2024 03:00:00 PM Scheduled Provider:ARGELIA DARBY DO Location:[facility] Appointment Type:PC OV Future Scheduled Tests Laboratory* Basic Metabolic Panel 03/13/24 [facility] Evaluation + Plan note Future Appointments Appointment Date:03/13/2024 03:00:00 PM Scheduled Provider:ARGELIA DARBY DO Location:[facility] Appointment Type:PC OV Diagnostic Tests Pending * Osmolality Urine 03/03/24 Future Scheduled Tests Laboratory* Basic Metabolic Panel 03/13/24 [facility] Evaluation + Plan note Future Appointments Appointment Date:04/24/2024 02:30:00 PM Scheduled Provider:ARGELIA DARBY DO Location:[facility] Appointment Type:PC OV Future Scheduled Tests Laboratory* Basic Metabolic Panel 03/13/24 [facility] Evaluation + Plan note Future Appointments Appointment Date:06/10/2024 01:00:00 PM Scheduled Provider:ARGELIA DARBY DO Location:[facility] Appointment Type:PC OV Future Scheduled Tests Laboratory* Basic Metabolic Panel 03/13/24 [facility] evaluation + Plan note Future Appointments Appointment Date:08/01/2024 12:30:00 PM Scheduled Provider:ARGELIA DARBY DO Location:[facility] Appointment Type:PC Wellness Medicare Future Scheduled Tests Laboratory* Basic Metabolic Panel 03/13/24 [facility] Evaluation + Plan note Future Appointments Appointment Date:10/03/2024 01:30:00 PM Scheduled Provider:ARGELIA DARBY DO Location:[facility] Appointment Type:PC OV Future Scheduled Tests Laboratory* Basic Metabolic Panel 03/13/24 [facility] evaluation + Plan note Future Appointments Appointment Date:12/18/2024 02:30:00 PM Scheduled Provider:ARGELIA DARBY DO Location:[place] Appointment Type:[facility] Scheduled Tests Laboratory* Basic Metabolic Panel 03/13/24 [facility] Evaluation note* Diagnosis Onset Date Resolution Status COVID-19 acute Hyponatremia acute [facility] Work Phone: Evaluation note* Diagnosis Onset Date Resolution Status COVID-19 acute Hyponatremia acute Anxiety acute COVID-19 acute Debility acute Depression acute Hyperlipidemia acute Hypomagnesemia acute Hyponatremia acute Osteoarthritis acute HTN (hypertension) chronic [facility] Work Phone: Evaluation note* Diagnosis Onset Date Resolution Status COVID-19 resolved Hyponatremia resolved HTN (hypertension) chronic Hyperlipidemia chronic Anxiety resolved COVID-19 resolved Hypomagnesemia resolved Hyponatremia resolved Vertigo acute CAD (coronary artery disease) chronic HTN (hypertension) chronic Hyperlipidemia [facility] Work Phone: Evaluation note* Diagnosis Urinary retention- Primary Unspecified retention of urine [facility] Urinary retention- Primary Unspecified retention of urine [facility] this encounter [facility] Author Sandro Jackman [facility] Note Date/Time December 06, 2024 7:0 9pm [facility] Medical Records Department [address] [place] [address] H&P Exam - Hospitalist 12/06/24 1852 MR#: [id number] Acct: [id number] Name: JERO LEWIS Rep #:[id number] : 1945 79 From: Sandro Jackman MD PCP: Dr. Argelia Darby DO Status:ADM IN Location: [facility] [id number] HPI - General General Date of [...] spine fracture, Or intracranial bleed [facility] Medical History Allergic rhinitis Anxiety and depression CAD (coronary artery disease) [place] disease Chronic hyponatremia COVID-19 Debility Depression Dizziness [...] 1 tab PO BID 3 Unknown History zw-rofe-vffa-joseph-boron chew tablet (Caltrate 600-D Plus Minerals) cyanocobalamin [...] History Mother CVA (cerebral vascular accident) Father [place] disease Son Kimberlee disease Brother Heart disease [...] 85.3 H, Lymph % (Auto) 8.6 L, Carroll % (Auto) 4.0, Eos % (Auto) 1.3, [...] acute intracranial abnormality. Senescent changes. Reading Location: [facility] Cervical Spine CT 12/06/24 16:41 IMPRESSION: No evidence of acute cervical spine fracture. Demineralization does limit sensitivity One or more dose reduction techniques were used (e.g., Automated exposure control, adjustment of the mA and/or kV according to patient size, use of iterative reconstruction technique). Reading Location: [facility] Facial/Sinus 12/06/24 16:41 IMPRESSION: No evidence of acute facial fracture. Senescent changes. One or more dose reduction techniques were used (e.g., Automated exposure control, adjustment of the mA and/or kV according to patient size, use of iterative reconstruction technique). Reading Location: [facility] Chest X-Ray 12/06/24 17:10 IMPRESSION: No acute findings. Senescent changes. Mild cardiac enlargement. Reading Location: [facility] Knee X-Ray 12/06/24 17:10 IMPRESSION: Acute patellar fracture on background demineralization. Reading Location: [facility] Echocardiogram 09/26/2023: Interpretation Summary The left [...] 06/25/2024: Interpretation: There were a [place] 86101 beats recorded over the 24 hour period. [...] be full code for the procedure 12/06/24 0462 <Electronically signed by Sandro Jackman MD> Cosigner Signature (if applicable): CC: Dr. Sandro Jackman MD; Dr. Argelia Darby, DO~ Signed [facility] Work Phone: Hospital course Narrative No data available for this section [facility] Discharge instructions No data available for this section [facility] Discharge instructions Additional Instructions Discharge home alone 08/14/2023, [facility], [facility] Work Phone: Progress note No data available for this section [facility] Reason for referral (narrative)No reason for referral information availableWFisher-[facility] Work Phone: Chief Complaint and [...] COVID HYPONATREMIA, COVID HYPONATREMIA, COVID HYPONATREMIA/COVID HTN ([facility] / SELF) Atherosclerotic heart disease of [place] coronary a Amb Documentation Reason for Visit [...] 2:2 5pm Mitral valve insufficiency December 04, 2:25pm NSVT (nonsustained ventricular tachycard ia) December [...] ventricular tachycard ia) December 06, 2024 6:45pm Chief Complaint Admit Date FALLL/PATELLA FRACTURE December 11, 2024 4:17pm LAB WORK January 19, 2025 5:0 0am LABWORK January 22, 2025 5:00am LAB WORK January 26, 2025 5:00am LAB WORK February 06, 2025 5:00a m LABWORK February 09, 2025 5:00a m LABOWRK February 18, 2025 5:00a m CUSTODIAL LAB WORK April 09, 2025 5: 00am fall May 03, 2025 5: 15pm Reason for Visit Admit Date Allergic rhinitis December 11, 2024 4:1 7pm BPPV (benign paroxysmal positional verti go) December 11, 2024 4:17pm Debility December 11, 2024 4:1 7pm Depression December 11, 2024 4:1 7pm Essential (primary) hypertension November 232024 4:17pm Hyponatremia December 11, 2024 4:1 7pm Hypothyroidism December 11, 2024 4:1 7pm Orthostatic hypotension December 11, 2024 4:17pm Osteoarthritis December 11, 2024 4:1 7pm CAD (coronary artery disease) November 4:17pm Hyperlipidemia December 11, 2024 4:1 7pm Closed fracture of left patella December 112024 4:17pm Elevated troponin December 11, 2024 4:1 7pm Syncope December 11, 2024 4:1 7pm Family History No Family History Records Found Relationship Condition Age at Onset Recorded Date/T tamara mother Cerebrovascular accident (CVA) Unknown father Hemophilia B Unknown son Hemophilia B Unknown brother Cardiac disease Unknown Hypertension Unknown daughter Lupus Unknown sister Malignant melanoma Unknown Advance Directives No Advanced Directives Records Found Advance Directive Response Recorded Date/ Time Name of Medical Power of Training Program Developer maxim lewis July 27, 2023 11:57pm Advance Directives Yes July 26, 2015 7:47am Living Will Yes July 27 11:57pm Power of Training Program Developer Yes July 27, 2023 11:57pm Advance Directive Response Recorded Date/ Time Name of Medical Power of Training Program Developer Maxim Lewis, son August 01, 2023 4:35pm Advance Directives Yes July 26, 2015 7:47am Living Will Yes August 01 4:35pm Power of Training Program Developer Yes August 01, 2023 4:35pm Name of Medical Power of Training Program Developer maxim lewis July 27, 2023 11:57pm Advance Directive Response Recorded Date/ Time Advance Directives Yes July 26, 2015 8:47am Advance Directive Response Recorded Date/ Time Living Will Yes December 06, 2024 8:05pm Do you have a Healthcare Power of Training Program Developer? Yes December 06, 2024 8:05pm Name of Medical Power of Training Program Developer Maxim Jeffries December 06, 2024 8:05pm Advance Directives Yes July 26, 2015 8:47am Advance Directive Response Recorded Date/ Time Do you have a Healthcare Pow er of Training Program Developer? Yes May 03, 2025 5:21pm Living Will Yes December 12, 2024 12:07pm Do you have a Healthcare Pow er of Training Program Developer? Yes December 12, 2024 12:07pm Name of Medical Power of Training Program Developer Maxim Lewis, yuridia December 12, 2024 12:07pm Advance Directives Yes July 26, 2015 8:47am Summary Purpose Additional Source Comments Care Team (unrecognized sect ion and content) Team Status: Active Member Role Status Dates Dr. Anel Read MD Family Provider Active Dr. Argelia Darby DO Primary [...] Darby DO Primary Care Provider Active Dr. eD Snowden MD Other Provider Active Dr. Brooks [...] DO Primary Care Provider Active Jesus Woodard HAIRSPRING TRUING INSPECTOR, HAIRSPRING TRUING INSPECTOR-C Attending Provider Active Team Status: Inactive Member [...] Provider Active Start: December 08, 2024 Dr. Micehlle Dang MD Attending Provider Activ e Start: [...] Provider Active St art: December 11, 2024 Check Processor Relationship Specialty Start Date End Date Artur Georges MD [address] [place] [id number] Surgeon Urology 01/19/25 Check Processor Relationship Specialty Start Date End Date Artur Georges MD [address] [place] [phone] Surgeon Urology 01/19/25 Check Processor Relationship Specialty Start Date End Date Artur Georges MD [address] [place] [phone] Surgeon Urology 01/19/25 Check Processor Relationship Specialty Start Date End Date Artur Georges MD [address] [place] [phone] Surgeon Urology 01/19/25 Team Status: Active Member Role/Relationship Status Dates Dr. Argelia Darby DO Primary Care Provider Active Team Status: Inactive Member Role/Relationship Status Dates Dr. Argelia Darby DO Primary Care Provider Active Start: December 11, 2024 End: January 13, 2025 Dr. Juan Diego Marks MD Admit Provider Active Star t: December 11, 2024 End: January 13, 2025 Dr. Juan Diego Marks MD Attending Provider Active Start: December 11, 2024 End: January 13, 2025 Dr. Juan Diego Marks MD Referring Provider Active Start: December 11, 2024 End: January 13, 2025 Team Status: Active Member Role/Relationship Status Dates Dr. Argelia Darby DO Primary Care Provider Active Start: January 19, 2025 Gene PARHAM MD Attending Provider Active S tart: January 19, 2025 Team Status: Active Member Role/Relationship Status Dates Dr. Argelia Darby DO Primary Care Provider Active Start: January 22, 2025 Gene PARHAM MD Attending Provider Active S tart: January 22, 2025 Team Status: Active Member Role/Relationship Status Dates Dr. Argelia Darby DO Primary Care Provider Active Start: January 26, 2025 Gene PARHAM MD Attending Provider Active S tart: January 26, 2025 Team Status: Active Member Role/Relationship Status Dates Dr. Argelia Darby DO Primary Care Provider Active Start: February 06, 2025 Gene PARHAM MD Attending Provider Active S tart: February 06, 2025 Team Status: Active Member Role/Relationship Status Dates Dr. Argelia Darby DO Primary Care Provider Active Start: February 09, 2025 Gene PARHAM MD Attending Provider Active S tart: February 09, 2025 Team Status: Active Member Role/Relationship Status Dates Dr. Argelia Darby DO Primary Care Provider Active Start: February 18, 2025 Gene PARHAM MD Attending Provider Active S tart: February 18, 2025 Team Status: Active Member Role/Relationship Status Dates Dr. Argelia Dabry DO Primary Care Provider Active Start: April 09, 2025 Gene PARHAM MD Attending Provider Active S tart: April 09, 2025 Team Status: Inactive Member Role/Relationship Status Dates Dr. Argelia Darby DO Primary Care Provider Active Start: May 03, 2025 End: May 03, 2025 Dr. Adolph Herrera DO Emergency Provider Active S tart: May 03, 2025 End: May 03, 2025 Care Team (unrecognized sect ion and content) Care Team Personnel Name: SHAYNE GONZALEZ Position: P4 Advanced Practice Nurse Med Service: Active Provider Member Role: Sports Photographer Address: Address: [address] [place] [address] Name: ARGELIA DARBY DO Position: P4 Physician - Primary Care Med Service: Active Provider Member Role: Primary Care Physician Address: Address: [address] [place] [address] [facility] [place], [place] [address] Name: KRISTIN REYES MD Position: Physician Med Service: Orthopedic Member Role: Orthopaedist Address: Address: [address] [place] [address] [place] [address]- Name: JONEL MALIN Member Role: Cardiothoracic Anesthesia Technician Care Team Related Persons Name: MAXIM LEWIS Name: REJI LEWIS Care Team Personnel Name: SHAYNE GONZALEZINVESTMENT FUND MANAGER Position: P4 Advanced Practice Nurse Med Service: Active Provider Member Role: Sports Photographer Address: Address: [address] [place] [address] [address] [place], [place] [address] Name: ARGELIA DARBY DO Position: P4 Physician - Primary Care Med Service: Active Provider Member Role: Primary Care Physician Address: Address: [address] [place] [address] [place] [id number] [place] [address] Name: KRISTIN REYES MD Position: Physician Med Service: Orthopedic Member Role: Orthopaedist Address: Address: [address] [place] [address] [place] [id number] [place] [address] Name: JONEL MALIN Member Role: Cardiothoracic Anesthesia Technician Care Team Related Persons Name: MAXIM LEWIS Name: REJI LEWIS Care Team Personnel Name: SHAYNE GONZALEZ APRN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 Position: P4 Advanced Practice Nurse Member Role: Sports Photographer Address: Address: [address] [place] [address] [address] [place], [place] [address] Name: ARGELAI DARBY DO Position: P4 Physician - Primary Care Member Role: Primary Care Physician Address: Address: [address] [place] [address]- [place] Name: KRISTIN REYES MD Position: Physician Member Role: Orthopaedist Address: Address: [address] [place] [id number] [place] [address] Name: JONEL MALIN Role: Cardiothoracic Anesthesia Technician Care Team Related Persons Name: MAXIM LEWIS Name: REJI LEWIS INFORMATION SOURCE (unrecogn ized section and content) DATE CREATED AUTHOR 05/24/2024 [facility] ([place]) DATE CREATED AUTHOR AUTHOR'S ORGANIZ ATION 11/09/2024 [facility] DATE CREATED AUTHOR AUTHOR'S ORGANIZ ATION 05/20/2025 [facility] DATE CREATED AUTHOR AUTHOR'S ORGANIZ ATION 08/01/2025 [facility] Goals (unrecognized section and content) Goals may be documented in a n alternate section Reason for Visit (unrecogniz ed section and content) Reason Onset Date Comments Appointment Request 01/19/2025 Reason Comments Urinary Retention VTHospitalized for f all and broken patella Reason Onset Date Comments Appointment Request 01/23/2025 Reason Comments Procedure Cysto Reason Onset Date Comments Orders 04/21/2025 Reason Onset Date Comments Orders 05/18/2025 Catheter FOR RECORDS PERTAINING TO PATIENTS WHO ARE [...] BE BASED ON THE PRIMARY CLINICAL RECORDS. [facility]. provides no warranty or guarantee of the accuracy or completeness of information in this document.
== END ==
LOC: OLS.ACH 05:00
PROVIDERS: PCP Family Medicine; Visit Provider Internal Medicine
DX: E03.9 Hypothyroidism, unspecified (principal)
CPT/HCPCS: 36415; 84443

== ENCOUNTER → 2025-09-08 04:00 | Outpatient (REF) | payer MEDICARE, BC, SELFPAY ==
--- OUTSIDE RECORDS SUMMARY | 2025-09-08 03:47 | XMS RPT_ITS | CCD ---
Author Organization [facility] Care Team Providers Care Senior Officer Name Role Phone ARGELIA DARBY DO Primary Care Physician [phone] Dr. Madhavi Pate Admit Provider Dr. Madhavi Pate Attending Provider Dr. Madhavi Pate Other Provider Dr. Argelia Darby Primary Care Provider Dr. De Snowden Other Provider Dr. Trever Viveros Attending Provider Dr. Trever Viveros Other Provider Dr. Brooks Carcamo Other Provider Dr. Natalya Wright Attending Provider Dr. Natalya Wright Other Provider Dr. Argelia Darby Referring Provider [phone]([facility])[phone] Dr. Kristy Andrew Attending Provider Fredis MACHINE PACK ASSEMBLER, MACHINE PACK ASSEMBLERJeremiahC Jesus Attending Provider ARGELIA DARBY DO Primary [...] Care Unavailable WILNER DO, ARGELIA Attending Unavailable IWLNER DO, ARGELIA Primary Care Unavailable WILNER DO, ARGELIA Primary Care Unavailable WILNER DO, ARGELIA Attending Unavailable Wilner ESTEVEZ, Dr. Joyce Primary Care Provider [phone] Dr. Argelia Darby DO Referring Provider Dr. Kristy Andrew MD Attending Provider [phone] Dr. Kristy Andrew MD Referring Provider [phone] Dr. Orville Cotrez MD Emergency Provider Gasper BURRELL, Dr. Jo [...] Other Provider Aguila BURRELL, Artur Vasquez Unavailable Dr. Argelia Darby DO Primary Care Provider Kendrick BURRELL, Dr. Juan Diego Hardy Admit Provider Kendrick BURRELL, Dr. Juan Diego Hardy Attending Provider Kendrick BURRELL, Dr. Juan Diego Hardy Referring Provider Yulissa BURRELL, Gene Attending Provider Unavailable Dr. Adolph Herrera DO Emergency Provider [phone] ROSITA RESENDIZ Attending Unavailable ARTUR GEORGES Attending Unavailable Tim Syed Attending Unavailable Juan Diego Marks Chi Referring Unavailable Argelia Darby Primary Care Unavailable Argelia Darby Primary Care Unavailable Kamran, Kristy Attending Unavailable Kamran, Kristy Referring Unavailable Argelia Darby Primary Care Unavailable Kamran, Kristy Attending Unavailable Argelia Darby Referring Unavailable Argelia Darby Primary Care Unavailable Adolph Herrera Attending Unavailable Deperro OLS, Gene Attending Unavailable Wilner, Argelia Primary Care Unavailable Deperro OLS, Gene Attending Unavailable Wilner, Argelia Primary Care Unavailable Wilner, Argelia Primary Care Unavailable Deperro OLS, Gene Attending Unavailable Wilenr, Argelia Primary Care Unavailable Deperro OLS, Gene Attending Unavailable Wilner, Argelia Primary Care Unavailable Deperro OLS, Gene Attending Unavailable Wilner, Argelia Primary Care Unavailable Kamran, Kristy Attending Unavailable Wilner, Argelia Referring Unavailable Koram, Montse Roxana Attending Unavailable Jackman, Achintya Admitting Unavailable -Attn: Danielle Coker, [facility] Consulting Unav ailable Wilner, Argelia Primary Care Unavailable Jackman, Achintya Consulting Unavailable Nagajothi, Nagapradee Consulting Unavailabl e Koram, Montse Roxana Consulting Unavailable Nagajothi, Nagapradee Attending Unavailabl e Sp, Jayaprakas Consulting Unavailable Donovan Cano Attending Unavailable Donovan Cano Consulting Unavailable Wilner, Argelia Primary Care Unavailable Deperro OLS, Gene Attending Unavailable Deperro OLS, Gene Attending Unavailable Wilner, Argelia Primary Care Unavailable Deperro OLS, Gene Attending Unavailable Wilner, Argelia Primary Care Unavailable Deperro OLS, Gene Attending Unavailable Wilner, Argelia Primary Care Unavailable Wilner, Argelia Primary Care Unavailable Kamran, Kristy Attending Unavailable Kamran, Kristy Referring Unavailable Jackman, Achintya Admitting Unavailable -Attn: Danielle Coker [facility] Consulting Unav ailable Donovan Cano Attending Unavailable Wilner, Argelia Primary Care Unavailable Jackman, Achintya Consulting Unavailable Sp, Jayaprakas Consulting Unavailable Koram, Montse Roxana Consulting Unavailable Nagajothi, Nagapradee Consulting Unavailabl e Wilner, Argelia Primary Care Unavailable Kendrick, Juan Diego Chi Admitting Unavailable Kendrick, Juan Diego Chi Attending Unavailable Kendrick, Juan Diego Chi Referring Unavailable Jackman, Achintya Attending Unavailable Jackman, Achintya Admitting Unavailable Jackman, Achintya Consulting Unavailable Wilner, Argelia Primary Care Unavailable Allergies Allergy Classification Reported Allergen(s) Allergy Type Date of Onset Reaction(s) Facility (20 sources) Aspirin / Caffeine / Propoxyphene; Translations: [ASA/caffeine/pr opoxyphene] Drug Allergy Unknown [facility] (20 sources) atorvastatin; Translations: [atorvastatin] Drug Allergy 3 Unknown, myalgia [facility] (20 sources) Codeine; Translations: [codeine] Drug Allergy 3 Nausea (finding), Nausea Only [facility] (20 sources) Propoxyphene; Translations: [propoxyphene] Drug Allergy 3 Nausea Only [facility] (20 sources) Simvastatin; Translations: [simvastatin] Drug Allergy 3 myalgias, Myalgia [facility] (7 sources) Propoxyphene; Translations: [propoxyphene HCl] Drug Allergy [address] [facility] (8 sources) atorvastatin Drug Allergy 3 Unknown [facility] (8 sources) Simvastatin Allergy to substance 3 Other [facility] (1 source) atorvastatin Drug Allergy 5 [facility] (1 source) Codeine Drug Allergy 5 [facility] (1 source) Simvastatin Drug Allergy 5 [facility] Medications Current Medications Medication Drug Class(es) Dates Sig (Normalized) Sig (Original) acetaminophen 500 mg oral tablet (16 sources) Start: 01-12-2025 take 2 tablets by mouth every eight hours Acetaminophen 500 mg Tablet Active 1000 mg PO EVERY 8 HOURS 0 January 12, 2025 12:00am Start: 12-09-2024 End: 01-12-2025 take 2 tablets by mouth every six hours as needed for pain Acetaminophen (Tylenol) 325 mg tablet Discontinued 650 mg PO EVERY 6 HOURS as needed for pain 30 December 09, 2024 12:00am January 12, 2025 [...] qDay, # 90 tab(s), 3 Refill(s), Pharmacy: [facility] #[id number], 167.6, cm, 12/11/22 13:15:00 EDT, Height, kg, 12/11/22 13:15:00 EDT, Dosing Weight Start Date: 12/11/22 Status: Ordered Start: 08-31-2021 atenolol 25 mg oral tablet Dose : 25 mg = 1 tab(s), Oral, qDay, # 90 tab(s), 3 Refill(s), Pharmacy: [facility] 166.4, cm, 08/31/21 13:51:00 EST, Height, kg, 08/31/21 13:51:00 EST, Dosing Weight Start Date: 08/31/21 Status: Ordered Start: 07-27-2021 atenolol 25 mg oral tablet Dose : 25 mg = 1 tab(s), Oral, qDay, # 30 tab(s), 5 Refill(s), Pharmacy: [facility] 166.4, cm, 07/27/21 13:50:00 [...] BID, # 180 tab(s), 1 Refill(s), Pharmacy: [facility], Anxiety Sleeping difficulty, [...] mg PO TWICE A DAY 180 3 June 26, 2024 2:31pm December 04, 2024 [...] DAY as needed for Muscle Spasm 0 January 12, 2025 12:00am docusate sodium 100 mg oral capsule (20 sources) Start: 03-16-2020 Dulcolax Stool Softener 100 mg oral capsule Dose : 100 mg = 1 cap(s), Oral, BID, PRN as needed for constipation, # 20 cap(s), 0 Refill(s) Start Date: 03/16/20 Status: Ordered docusate sodium 50 mg / sennosides, care home 8.6 mg oral tablet (9 sources) Start: [...] 30 tab(s), 5 Refill(s), Pharmacy: [facility] #[id number], 167.6, cm, 12/11/22 13:15:00 EDT, Height Start Date: 12/11/22 Status: Ordered ipratropium bromide 0.042 mg/actuat metered dose nasal spray (20 sources) Anticholinergic Start: 01-12-2025 Ipratropium Br omide 42 mcg (0.06 %) [place],Non-Aerosol Active 1 NMA NASAL TWICE A DAY 0 January 12, 2025 12:00am Start: 07-02-2024 take 42 ug nasal rou te twice daily ipratropium 21 mcg/inh (0.03%) nasal spray 42 mcg Dose = 2 spray(s), Nostril, each, BID, # 1 EA, 1 Refill(s), Pharmacy: [facility], Allergic rhinitis, 166, cm, 06/10/24 13:00:00 EDT, Height, kg, 06/10/24 13:00:00 EDT, Dosing Weight Start Date: 07/02/24 Status: Ordered Start: 03-28-2024 take 42 ug nasal rou te twice daily ipratropium 21 mcg/inh (0.03%) nasal spray 42 mcg Dose = 2 spray(s), Nostril, each, BID, filling in lieu of pcp, # 1 EA, 0 Refill(s), Pharmacy: [facility], Allergic rhinitis, 166, cm, [...] BID, # 1 EA, 1 Refill(s), Pharmacy: [facility], Allergic rhinitis, 166, [...] liothyronine, # 90 tab(s), 1 Refill(s), Pharmacy: [facility], Hypothyroidism, 166, cm, 08/01/24 [...] dosing, # 90 tab(s), 1 Refill(s), Pharmacy: [facility], Hypothyroidism, 166, cm, [...] 90 tab(s), 1 Refill(s), Pharmacy: [facility] #[id number], Hypothyroidism, 165, cm, 07/13/23 14:08:00 EDT, Height, kg, 07/13/23 14:08:00 EDT, Dosing Weight Start Date: 07/13/23 Status: Ordered Start: 10-03-2022 levothyroxine 112 mcg (0.112 mg) oral tablet Dose : 112 mcg = 1 tab(s), Oral, qDay, # 90 tab(s), 1 Refill(s), Pharmacy: [facility] #[id number], Hypothyroidism, 166, cm, 12/26/22 10:59:00 EDT, Height, kg, 12/26/22 10:59:00 EDT, Dosing Weight Start Date: 12/27/22 Status: Ordered Start: 04-05-2022 levothyroxine 112 mcg (0.112 mg) oral tablet Dose : 112 mcg = 1 tab(s), Oral, qDay, # 90 tab(s), 1 Refill(s), [facility] Hypothyroidism, 167, cm, 04/05/22 11:19:00 EDT, Height, kg, 04/05/22 11:19:00 EDT, Dosing Weight Start Date: 04/05/22 Status: Ordered Start: 10-06-2021 levothyroxine 112 mcg (0.112 mg) oral tablet Dose : 112 mcg = 1 tab(s), Oral, qDay, Increased dose, # 90 tab(s), 1 Refill(s), [facility] Hypothyroidism, 165, cm, 10/05/21 14:59:00 EST, Height, kg, 10/05/21 14:59:00 EST, Dosing Weight Start Date: 10/06/21 Status: Ordered Start: 03-14-2021 levothyroxine 100 mcg (0.1 mg) oral tablet Dose : 100 mcg = 1 tab(s), Oral, qDay, Increased dose, # 90 tab(s), 1 Refill(s), [facility], Hypothyroidism, 166, cm, 03/14/21 8:36:00 EDT, [...] BID, # 60 tab(s), 3 Refill(s), Pharmacy: [facility] #[id number], 167.6, cm, 12/11/22 13:15:00 EDT, Height Start Date: 12/11/22 Status: Ordered Multivitamin preparation (10 sources) Start: 03-16-20 take 1 tablet by mouth once daily Multivitamin Dose = 1 tab(s), Oral, Daily, 0 Refill(s) Start Date: 03/16/20 Status: Ordered nystatin 100 unt/mg topical powder (1 source) Polyene Antifungal Start: 01-13-20 Nystatin (Nyamyc) 100,000 unit/gram Powder Active 1 NMA TOPICAL [...] left patella take 1 capsule by mo [facility] every four hours as needed for [...] qDay, # 30 tab(s), 5 Refill(s), Pharmacy: [facility], Hypokalemia, 166, cm, 08/21/23 13:31:00 EST, Height, kg, 08/21/23 13:31:00 EST, Dosing Weight Start Date: 08/21/23 Stop Date: 02/17/24 Status: Ordered Start: 08-08-2023 End: 05-01-2024 Potassium Chloride (Klor-Con M20) 20 mEq Tablet,Er Particles/Crystals Discontinued 20 meq PO DAILY WITH MEALS August 08, 2023 1:00am May 01, 2024 4:26pm sertraline 100 mg oral tablet (20 sources) Serotonin Reuptake Inhibitor Start: 11-06-2024 sertraline (Zoloft) 100 MG tablet Take 150 mg by mouth daily. 11/06/2024 Active Start: 03-11-2024 [facility] Sertraline 100 mg tablet Active 100 mg PO daily March 11, 2024 12:00am Start: 01-30-2024 sertraline 100 mg oral tablet Dose : 100 mg = 1 tab(s), Oral, qDay, # 30 tab(s), 2 Refill(s), Pharmacy: [facility], Recurrent major depression, 166, cm, 01/30/24 13:48:00 EDT, Height, kg, 01/30/24 13:31:00 EDT, Dosing Weight Start Date: 01/30/24 Status: Ordered Start: 09-07-2023 sertraline 100 mg oral tablet Dose : 100 mg = 1 tab(s), Oral, qDay, Increased dose, # 30 tab(s), 2 Refill(s), Pharmacy: [facility], Recurrent major depression, [...] Tablet Discontinued 50 mg PO DAILY 0 0 August 08, 2023 1:00am August 30, 2023 1:11pm Start: 12-26-2022 sertraline 100 mg oral tablet Dose : 100 mg = 1 tab(s), Oral, qDay, # 90 tab(s), 3 Refill(s), Pharmacy: [facility] #[id number], Depression, 166, cm, 12/26/22 10:59:00 EDT, Height, [...] qDay, # 90 tab(s), 3 Refill(s), [facility] Situational depression Panic disorder, [...] qHS, # 90 tab(s), 1 Refill(s), Pharmacy: [facility] #[id number], Hyperlipemia, mixed, 166, cm, 07/11/22 11:26:00 EDT, [...] # 90 tab(s), 3 Refill(s), [facility] [address] 165.5, cm, 12/06/21 8:32:00 EDT, Height, kg, 12/06/21 8:32:00 EDT, Dosing Weight Start Date: 12/28/21 Status: Ordered Start: 03-16-2021 amLODIPine 5 m g oral tablet Dose : 5 mg = 1 tab(s), Oral, qDay, # 90 tab(s), 3 Refill(s), [facility] [address] 166, cm, 03/16/21 10:55:00 [...] 09, 2024 12:00am January 12, 2025 7:31pm [employer] Start: 09-04-2023 End: 01-12-2025 take 1 tablet [...] 10:32am Start: 03-16-2020 take 1 tablet by [facility] once daily biotin 1 tab, Oral, qDay, 0 Refill(s) Start Date: 03/16/20 Status: Ordered Calcium (4 sources) Phosphate Binder, Calcium Start: 09-04-2023 End: 01-12-2025 Hb-W5-Iob-Ztzr-Nwv-Xzaf-Boro n (Caltrate 600-D Plus Minerals) 600 mg calcium- 800 unit-40 mg tablet,chewable Discontinued 1 {tbl} PO TWICE A DAY September 04, 2023 1:00am January 12, 2025 7:32pm Start: 09-04-2023 Op-C6-Ugp-Zinc -Hkr-Vtdw-Dtivl (Caltrate 600-D Plus Minerals) 600 mg calcium- 800 unit-40 mg tablet,chewable Active 1 {tbl} PO TWICE A DAY September 04, 2023 1:00am Start: 09-04-2023 take 1 tablet by robinson twice daily Qz-Q7-Nkh-Nsal-Hmg-Eguh-[place] (Caltrate 600-D Plus Minerals) 600 mg calcium- [...] qDay, # 90 tab(s), 3 Refill(s), Pharmacy: [facility] #[id number], 167.6, cm, 12/11/22 13:15:00 EDT, Height, kg, 12/11/22 13:15:00 EDT, Dosing Weight Start Date: 12/11/22 Status: Ordered Start: 01-10-2022 hydroCHLOROthi azide 25 mg oral tablet Dose : 25 mg = 1 tab(s), Oral, qDay, # 90 tab(s), 3 Refill(s), Pharmacy: [facility] 165.5, cm, 12/06/21 8:32:00 EDT, Height Start Date: 01/10/22 Status: Ordered Start: 06-21-2021 hydroCHLOROthi azide 50 mg oral tablet Dose : 25 mg = 0.5 tab(s), Oral, qDay, # 30 tab(s), 3 Refill(s), [facility] [address] 167.7, cm, 06/21/21 14:51:00 [...] qPM, # 90 tab(s), 1 Refill(s), Pharmacy: [facility], Allergic rhinitis, 166, [...] levothyroxine, # 90 tab(s), 1 Refill(s), Pharmacy: [facility], Hypothyroidism, 166, cm, 08/01/24 [...] dizziness, # 90 tab(s), 1 Refill(s), Pharmacy: [facility], Vertigo Dizziness, 166, cm, 08/01/24 12:52:00 EST, Height, kg, 08/01/24 12:39:00 EST, Dosing Weight Start Date: 08/01/24 Status: Ordered Start: 09-06-2022 End: 12-06-2024 take 1 tablet by mouth three times daily as needed Meclizine 12.5 mg tablet Discontinued 12.5 mg PO 3 TIMES DAILY NEEDED July 28, 2023 12:00am December 06, 2024 6:58pm dizzy Start: 06-21-2021 End: 07-22-2022 meclizine 12.5 mg oral table t Dose : 12.5 mg = 1 tab(s), Oral, TID, PRN as needed for dizziness, X 30 day(s), # 60 tab(s), 11 Refill(s), 07/22/22 14:27:00 EDT, [facility] [address] [facility] 166.4, cm, 07/27/21 13:50:00 [...] food/milk, # 90 tab(s), 1 Refill(s), Pharmacy: [facility] #[id number], Bilateral shoulder pain Right knee pain, 166, cm, 07/11/22 11:26:00 EDT, Height, kg, 07/11/22 11:26:00 EDT, Dosing Weight Start Date: 07/11/22 Status: Ordered Start: 04-05-2022 meloxicam 15 m g oral tablet Dose : 15 mg = 1 tab(s), Oral, qDay, Take with food/milk, # 90 tab(s), 1 Refill(s), Pharmacy: [facility] Bilateral shoulder pain Right knee pain, 167, cm, 04/05/22 11:19:00 EDT, Height, kg, 04/05/22 11:19:00 EDT, Dosing Weight Start Date: 04/05/22 Status: Ordered Start: 12-06-2021 meloxicam 15 m g oral tablet Dose : 15 mg = 1 tab(s), Oral, qDay, Take with food/milk, # 30 tab(s), 1 Refill(s), Pharmacy: [facility] [address] Bilateral shoulder pain Right [...] 2023 1:38pm January 12, 2025 7:33pm see Start: 12-11-2022 olmesartan 40 mg oral tablet Dose : 40 mg = 1 tab(s), Oral, qDay, # 90 tab(s), 3 Refill(s), Pharmacy: [facility] #[id number], 167.6, cm, 12/11/22 13:15:00 EDT, Height, kg, 12/11/22 13:15:00 EDT, Dosing Weight Start Date: 12/11/22 Status: Ordered Start: 03-01-2022 olmesartan 40 mg oral tablet Dose : 40 mg = 1 tab(s), Oral, qDay, # 90 tab(s), 3 Refill(s), Pharmacy: [facility] [address] 165.5, cm, 03/01/22 13:04:00 EDT, Height, kg, 03/01/22 13:04:00 EDT, Dosing Weight Start Date: 03/01/22 Status: Ordered Start: 12-09-2021 olmesartan 40 mg oral tablet Dose : 40 mg = 1 tab(s), Oral, qDay, # 30 tab(s), 5 Refill(s), Pharmacy: [facility] 165.5, cm, 12/06/21 8:32:00 EDT, Height, kg, 12/06/21 8:32:00 EDT, Dosing Weight Start Date: 12/09/21 Status: Ordered Start: 06-21-2021 olmesartan 40 mg oral tablet Dose : 40 mg = 1 tab(s), Oral, qDay, # 30 tab(s), 5 Refill(s), Pharmacy: [facility] 167.7, cm, 06/21/21 14:51:00 [...] Saturdays, # 120 tab(s), 1 Refill(s), Pharmacy: [facility] #[id number], Hyponatremia, 166, cm, 12/26/22 10:59:00 EDT, Height, [...] Coronary arteriosclerosis; Translations: [Atherosclerotic heart disease of rincon coronary artery without angina pectoris] Onset: 12-04-2024 [...] current use of drug therapy; 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 Comment on above: Order Comment: 317.1 Performed By: #### L 501.9520 ####[facility] [address] [place], [address] Urine Cultureon 07-12-[address] [facility] Comment on above: Performed By: #### M 100.2200, L400.0001 ####[facility] [address] [place], [address] Urinalysis, Completeon 07-09 RBC 0-5 SEEN Normal 0-5 [facility] Comment on above: Order Comment: TREVOR TER SPECIMEN Performed By: #### M 100.2200, L400.0001 ####[facility] [address] [place], [address] WBC 0-5 SEEN Normal 0-5 [facility] Comment on above: Order Comment: TREVOR TER SPECIMEN Performed By: #### M 100.2200, L400.0001 ####[facility] [address] [place], [address] BACTERIA 3+ /hpf Normal None Seen [facility] Comment on above: Order Comment: TREVOR TER SPECIMEN Performed By: #### M 100.2200, L400.0001 ####[facility] [address] [place], [address] EPI,SQUAMOUS 0 SEEN Normal 5-10 [facility] Comment on above: Order Comment: TREVOR TER SPECIMEN Performed By: #### M 100.2200, L400.0001 ####[facility] [address] [place], [address] Mucus Ql (Urine sed) 0 SEEN Normal [facility] Comment on above: Order Comment: TREVOR TER SPECIMEN Performed By: #### M 100.2200, L400.0001 ####[facility] [address] [place], [address] 36on 05-19-2025 36 Faxed cath order to [facility] for pt. [facility] 36 Okay to provide standard letter. Changes every 4-6 weeks. Irrigation daily and as needed. The flushing should be done using the aspiration technique to actually remove the sediment. If patient tolerates, they could try a 20 barbadian to help with sediment. Diagnosis: Neurogenic bladder: N31.9 [facility] 36on 05-18-2025 36 Name of caller: Osito gonzales LPN Contact phone number: [phone] Relationship to Patient: [facility] Provider: Dr Georges Practice: Urology Chief Complaint/Reason for Call: Laura from [facility] called to request orders for Catheter. They have been frequently changing cath approximately 5-7 times a month. She now has a 18 barbadian with irrigation daily. Pt still has leaking [...] business hours to return their call: Yes [facility] 36on 05-04-2025 36 Call placed to facility . Pt returned to facility with catheter in place from 03/02 appointment . NGB diagnosis provided to facility for justification of catheter [facility] 36 Name of caller: Oswaldo carlton LPN Contact phone number: [phone] Relationship to Patient: [facility] Provider: Dr Georges Practice: Urology Chief Complaint/Reason for Call: Amie HOYOS from [facility] is still in need of Dx for catheter placement for pt. This is a medicare/medicaid facility and Dx of neurogenic or obstructive, reflux, neopathy bladder is required. Please call or fax [phone] to advise of Dx for catheter placement. Best time of day caller can be reached: Any Patient advised that office/PCP has 24-48 business hours to return their call: Yes Normal [facility] Brain/Head without Contrasto n 05-03-2025 Brain/Head without Contrast Normal [facility] CT Chest, Abd, Pelvis WO Con ton 05-03-2025 CT Chest, Abd, Pelvis WO Cont Normal [facility] Emergency Department Summary on 05-03-2025 Emergency [address] Normal [facility] Hand Min 3 Viewson Hand Min 3 Views [facility] Spine Cervical without Contr ason 05-03-2025 Spine Cervical without Contras Normal [facility] 36on 04-21-2025 36 Name of caller: Oswaldo carlton Contact phone number: [phone] Relationship to Patient: [facility] Provider: Dr. Georges Practice: Urology Chief Complaint/Reason for Call: Amie called advising for a diagnose for the catheter patient has in so they can noted on their end for the reason. Please call Amie back and advise. Best time of day caller can be reached: any Patient advised that office/PCP has 24-48 business hours to return their call: N/A Normal [facility] Anion gap in Serum or Plasma Ordered By: Gene Duenas on 04-09-2025 Anion gap [Moles/Vol] 12 mmol/L - [facility] BUN/creatinine ratioOrdered By: Gene Duenas on 04-09-2025 Urea nitrogen/Creatinine [Mass ratio] 19.7 mg/mg - [facility] Basic Metabolic Profile (BMP )on 04-09-2025 BUN/CRE 19.7 RATIO Normal 07-13 [facility] Comment on above: Order Comment: 301.1 Performed By: #### L 500.2500, L100.0500 ####[facility] [address] [place], [address] Calcium [Mass/Vol] 9.5 mg/dL Normal 7.6-11.0 [facility] Comment on above: Order Comment: 301.1 Performed By: #### L 500.2500, L100.0500 ####[facility] [address] [place], [address] Chloride [Moles/Vol] 101 mmol/L Normal 98-108 [facility] Comment on above: Order Comment: 301.1 Performed By: #### L 500.2500, L100.0500 ####[facility] [address] [place], [address] CO2 [Moles/Vol] 24.4 mmol/L Normal 21.0-32.0 [facility] Comment on above: Order Comment: 301.1 Performed By: #### L 500.2500, L100.0500 ####[facility] [address] [place], [address] Creatinine [Mass/Vol] 0.60 mg/dL Low 0.70-1.20 [facility] Comment on above: Order Comment: 301.1 Performed By: #### L 500.2500, L100.0500 ####[facility] [address] [place], [address] GAP 12 Normal 5-15 [facility] Comment on above: Order Comment: 301.1 Performed By: #### L 500.2500, L100.0500 ####[facility] [address] [place], [address] GFR/1.73 sq M.predicted among non-blacks MDRD (S/P/Bld) [Vol rate/Area] 90 mL/min/{1.73_m2} Normal >60 [facility] Comment on above: Order Comment: 301.1 Result Comment: mL/m in/1.73m2 CKD-EPI Creatinine Equation (2020) Performed By: #### L 500.2500, L100.0500 ####[facility] [address] [place], [address] Glucose [Mass/Vol] 87 mg/dL Normal 70-99 [facility] Comment on above: Order Comment: 301.1 Performed By: #### L 500.2500, L100.0500 ####[facility] [address] [place], [address] Potassium [Moles/Vol] 3.6 mmol/L Normal 3.3-5.1 [facility] Comment on above: Order Comment: 301.1 Performed By: #### L 500.2500, L100.0500 ####[facility] [address] [place], [address] Sodium [Moles/Vol] 138 mmol/L Normal 133-145 [facility] Comment on above: Order Comment: 301.1 Performed By: #### L 500.2500, L100.0500 ####[facility] [address] [place], [address] Urea nitrogen [Mass/Vol] 12 mg/dL Normal 4-19 [facility] Comment on above: Order Comment: 301.1 Performed By: #### L 500.2500, L100.0500 ####[facility] [address] [place], [address] CBC-Complete Blood Cnt No Di ffon 04-09-2025 Erythrocyte distribution width (RBC) [Ratio] 13.9 % Normal 11.6-14.6 [facility] Comment on above: Order Comment: 301.1 Performed By: #### L 500.2500, L100.0500 ####[facility] [address] [place], [address] Hematocrit (Bld) [Volume fraction] 35.0 % Low 37-47 [facility] Comment on above: Order Comment: 301.1 Performed By: #### L 500.2500, L100.0500 ####[facility] [address] [place], [address] Hemoglobin (Bld) [Mass/Vol] 11.8 g/dL Low 12.0-15.0 [facility] Comment on above: Order Comment: 301.1 Performed By: #### L 500.2500, L100.0500 ####[facility] [address] [place], [address] MCH (RBC) [Entitic mass] 29.5 pg Normal 27.0-32.0 [facility] Comment on above: Order Comment: 301.1 Performed By: #### L 500.2500, L100.0500 ####[facility] [address] [place], [address] MCHC (RBC) [Mass/Vol] 33.7 g/dL Normal 32-36 [facility] Comment on above: Order Comment: 301.1 Performed By: #### L 500.2500, L100.0500 ####[facility] [address] [place], [address] MCV (RBC) [Entitic vol] 87.5 fL Normal 81-99 [facility] Comment on above: Order Comment: 301.1 Performed By: #### L 500.2500, L100.0500 ####[facility] [address] [place], [address] Platelet mean volume (Bld) [Entitic vol] 9.5 fL Normal 6.2-12.0 [facility] Comment on above: Order Comment: 301.1 Performed By: #### L 500.2500, L100.0500 ####[facility] [address] [place], [address] Platelets (Bld) [#/Vol] 299 10*3/uL Normal 150-450 [facility] Comment on above: Order Comment: 301.1 Performed By: #### L 500.2500, L100.0500 ####[facility] [address] [place], [address] RBC (Bld) [#/Vol] 4.00 10*6/uL Low 4.2-5.4 [facility] Comment on above: Order Comment: 301.1 Performed By: #### L 500.2500, L100.0500 ####[facility] [address] [place], [address] RDW SD 44.7 fl High 35.1-43.9 [facility] Comment on above: Order Comment: 301.1 Performed By: #### L 500.2500, L100.0500 ####[facility] [address] [place], [address] WBC (Bld) [#/Vol] 5.3 10*3/uL Normal 4.4-11.0 [facility] Comment on above: Order Comment: 301.1 Performed By: #### L 500.2500, L100.0500 ####[facility] [address] [place], [address] Carbon dioxide, total [Moles /volume] in Central venous bloodOrdered By: Gene Duenas on 04-09-2025 CO2 [Moles/Vol] 24.4 mmol/L 21.0-32.0 [facility] Chloride assayOrdered By: Tatum on 04-09-2025 Chloride [Moles/Vol] 101 mmol/L 98-108 [facility] Erythrocyte distribution wid th ratioOrdered By: Gene Duenas on 04-09-2025 Erythrocyte distribution width (RBC) [Ratio] 13.9 % 11.6-14.6 [facility] Erythrocyte distribution wid th standard deviationOrdered By: Gene Duenas on 04-09-2025 Erythrocyte distribution width (RBC) [Ratio] 44.7 fl High 35.1-43.9 [facility] Glomerular filtration rate ( GFR) estimation/1.73 sq m using serum, plasma, or whole bOrdered By: Gene Duenas on 04-09-2025 GFR/1.73 sq M.predicted among non-blacks MDRD (S/P/Bld) [Vol rate/Area] 90 mL/min/{1.73_m2} >60 [facility] Comment on above: mL/min/1.73m2 CKD-EP I Creatinine Equation (2020) Hematocrit Auto (Bld) [Volum e fraction]Ordered By: Gene Duenas on 04-09-2025 Hematocrit (Bld) [Volume fraction] 35.0 % Low 37-47 [facility] Hemoglobin measurementOrdere d By: Gene Duenas on 04-09-2025 Hemoglobin (Bld) [Mass/Vol] 11.8 g/dL Low 12.0-15.0 [facility] MCV (mean corpuscular volume ) determinationOrdered By: Gene Duenas on 04-09-2025 MCV (RBC) [Entitic vol] 87.5 fL 81-99 [facility] Mean corpuscular hemoglobin (MCH) determinationOrdered By: Gene Duenas on 04-09-2025 MCH (RBC) [Entitic mass] 29.5 pg 27.0-32.0 [facility] Mean corpuscular hemoglobin concentration (MCHC) determinationOrdered By: Gene Duenas on 04-09-2025 MCHC (RBC) [Mass/Vol] 33.7 g/dL 32-36 [facility] Mean platelet volume determi nationOrdered By: Gene Duenas on 04-09-2025 Platelet mean volume (Bld) [Entitic vol] 9.5 fL 6.2-12.0 [facility] Platelet countOrdered By: Tatum on 04-09-2025 Platelets (Bld) [#/Vol] 299 10*3/uL 150-450 [facility] Potassium measurement (mass/ volume)Ordered By: Gene Duenas on 04-09-2025 Potassium (Unsp spec) [Mass/Vol] 3.6 mmol/L 3.3-5.1 [facility] RBC Auto (Bld) [#/Vol]Ordere d By: Gene Duenas on 07-17-2025 RBC (Bld) [#/Vol] 4.00 10*6/uL Low 4.2-5.4 [facility] Serum creatinine measurement (mass/volume)Ordered By: Gene Duenas on 04-09-2025 Creatinine [Mass/Vol] 0.60 mg/dL Low 0.70-1.20 [facility] Serum glucose measurement (m ass/volume)Ordered By: Gene Duenas on 04-09-2025 Glucose [Mass/Vol] 87 mg/dL 70-99 [facility] Serum or plasma calcium cindy urement (mass/volume)Ordered By: Gene Duenas on 04-09-2025 Calcium [Mass/Vol] 9.5 mg/dL 7.6-11.0 [facility] Serum or plasma urea nitroge n measurement (mass/volume)Ordered By: Gene Duenas on 04-09-2025 Urea nitrogen [Mass/Vol] 12 mg/dL 4-19 [facility] Sodium levelOrdered By: Gene Duenas on 04-09-2025 Sodium [Moles/Vol] 138 mmol/L 133-145 [facility] White blood cell (WBC) count Ordered By: Gene Duenas on 04-09-2025 WBC (Bld) [#/Vol] 5.3 10*3/uL 4.4-11.0 [facility] Progress Noteon 03-02-2025 Progress Note Victoriano Fountain [...] [3] No family history on file. Normal [facility] Urine Cultureon 02-20-[address] [facility] Comment on above: Performed By: #### M 100.2200, L400.0001 ####[facility] [address] [place], [address] Absolute lymphocyte countOrd ered By: Gene Duenas on 02-18-2025 Lymphocytes Auto (Unsp spec) [#/Vol] 1.14 10*3/uL 0.83-4.51 [facility] Absolute neutrophil countOrd ered By: Gene Duenas on 02-18-2025 Neutrophils (Bld) [#/Vol] 3.6 10*3/uL 2.0-7.7 [facility] Anion gap in Serum or Plasma Ordered By: Gene Duenas on 02-18-2025 Anion gap [Moles/Vol] 11 mmol/L 5-15 [facility] Automated lymphocyte count a s percentage of total leukocytesOrdered By: Gene Duenas on 02-18-2025 Lymphocytes/100 WBC Auto (Unsp spec) 20.9 % 19-41 [facility] BUN/creatinine ratioOrdered By: Gene Duenas on 02-18-2025 Urea nitrogen/Creatinine [Mass ratio] 37.3 mg/mg High 10-20 [facility] Basophil percentageOrdered B y: Gene Duenas on 02-18-2025 Basophils/100 WBC (Bld) 0.4 % 0-1 [facility] Bilirubin Test strip Ql (U)O rdered By: Gene Duenas on 02-18-2025 Bilirubin Ql (U) Negative Negative [facility] Bilirubin, totalOrdered By: Gene Duenas on 02-18-2025 Bilirubin [Mass/Vol] 0.24 mg/dL 0.00-1.30 [facility] CBC W/Diff, Automatedon 01-23 Absolute Lymph 1.14 X10 3/uL Normal 0.83-4.51 [facility] Comment on above: Order Comment: 301-1 Performed By: #### L 500.4050, L100.0100 ####[facility] [address] [place], [address] Absolute Neut 3.6 X10 3/uL Normal 2.0-7.7 [facility] Comment on above: Order Comment: 301-1 Performed By: #### L 500.4050, L100.0100 ####[facility] [address] [place], [address] Basophils/100 WBC (Bld) 0.4 % Normal 0-1 [facility] Comment on above: Order Comment: 301-1 Performed By: #### L 500.4050, L100.0100 ####[facility] [address] [place], [address] Eosinophils/100 WBC (Bld) 4.0 % Normal 0-5 [facility] Comment on above: Order Comment: 301-1 Performed By: #### L 500.4050, L100.0100 ####[facility] [address] [place], [address] Erythrocyte distribution width (RBC) [Ratio] 13.0 % Normal 11.6-14.6 [facility] Comment on above: Order Comment: 301-1 Performed By: #### L 500.4050, L100.0100 ####[facility] [address] [place], [address] Hematocrit (Bld) [Volume fraction] 34.1 % Low 37-47 [facility] Comment on above: Order Comment: 301-1 Performed By: #### L 500.4050, L100.0100 ####[facility] [address] [place], [address] Hemoglobin (Bld) [Mass/Vol] 11.2 g/dL Low 12.0-15.0 [facility] Comment on above: Order Comment: 301-1 Performed By: #### L 500.4050, L100.0100 ####[facility] [address] [place], [address] IG% 0.500 Normal 0.0-0.9 [facility] Comment on above: Order Comment: 301-1 Result Comment: IG% - Immature Granulocytes (promyelocytes, myelocytes andmetamyelocytes) > 1% indicates that a LEFT SHIFT is Present. Performed By: #### L 500.4050, L100.0100 ####[facility] [address] [place], [address] Lymphocytes/100 WBC (Bld) 20.9 % Normal 19-41 [facility] Comment on above: Order Comment: 301-1 Performed By: #### L 500.4050, L100.0100 ####[facility] [address] [place], [address] MCH (RBC) [Entitic mass] 29.5 pg Normal 27.0-32.0 [facility] Comment on above: Order Comment: 301-1 Performed By: #### L 500.4050, L100.0100 ####[facility] [address] [place], [address] MCHC (RBC) [Mass/Vol] 32.8 g/dL Normal 32-36 [facility] Comment on above: Order Comment: 301-1 Performed By: #### L 500.4050, L100.0100 ####[facility] [address] [place], [address] MCV (RBC) [Entitic vol] 89.7 fL Normal 81-99 [facility] Comment on above: Order Comment: 301-1 Performed By: #### L 500.4050, L100.0100 ####[facility] [address] [place], [address] Monocytes/100 WBC (Bld) 8.2 % Normal 0-10 [facility] Comment on above: Order Comment: 301-1 Performed By: #### L 500.4050, L100.0100 ####[facility] [address] [place], [address] Neutrophils/100 WBC (Bld) 66.0 % Normal 47-70 [facility] Comment on above: Order Comment: 301-1 Performed By: #### L 500.4050, L100.0100 ####[facility] [address] [place], [address] Nucleated RBC (Bld) [#/Vol] 0 10*3/uL Normal 0-5 [facility] Comment on above: Order Comment: 301-1 Performed By: #### L 500.4050, L100.0100 ####[facility] [address] [place], [address] Platelet mean volume (Bld) [Entitic vol] 9.6 fL Normal 6.2-12.0 [facility] Comment on above: Order Comment: 301-1 Performed By: #### L 500.4050, L100.0100 ####[facility] [address] [place], [address] Platelets (Bld) [#/Vol] 353 10*3/uL Normal 150-450 [facility] Comment on above: Order Comment: 301-1 Performed By: #### L 500.4050, L100.0100 ####[facility] [address] [place], [address] RBC (Bld) [#/Vol] 3.80 10*6/uL Low 4.2-5.4 [facility] Comment on above: Order Comment: 301-1 Performed By: #### L 500.4050, L100.0100 ####[facility] [address] [place], [address] RDW SD 43.1 fl Normal 35.1-43.9 [facility] Comment on above: Order Comment: 301-1 Performed By: #### L 500.4050, L100.0100 ####[facility] [address] [place], [address] WBC (Bld) [#/Vol] 5.5 10*3/uL Normal 4.4-11.0 [facility] Comment on above: Order Comment: 301-1 Performed By: #### L 500.4050, L100.0100 ####[facility] [address] [place], [address] Carbon dioxide, total [Moles /volume] in Central venous bloodOrdered By: Gene Duenas on 02-18-2025 CO2 [Moles/Vol] 21.9 mmol/L 21.0-32.0 [facility] Chloride assayOrdered By: Tatum on 02-18-2025 Chloride [Moles/Vol] 101 mmol/L 98-108 [facility] Comprehensive Metabolic Prof ilon 02-18-2025 Albumin [Mass/Vol] 3.1 g/dL Low 3.4-4.8 [facility] Comment on above: Order Comment: 301-1 Performed By: #### L 500.4050, L100.0100 ####[facility] [address] [place], [address] Albumin/Globulin [Mass ratio] 1.4 {ratio} Normal 0.9-2.4 [facility] Comment on above: Order Comment: 301-1 Performed By: #### L 500.4050, L100.0100 ####[facility] [address] [place], [address] ALK PHOS 67 U/L Normal 35-104 [facility] Comment on above: Order Comment: 301-1 Performed By: #### L 500.4050, L100.0100 ####[facility] [address] [place], [address] ALT [Catalytic activity/Vol] 10 U/L Normal <=34 [facility] Comment on above: Order Comment: 301-1 Performed By: #### L 500.4050, L100.0100 ####[facility] [address] [place], [address] AST [Catalytic activity/Vol] 16 U/L Normal <=31 [facility] Comment on above: Order Comment: 301-1 Performed By: #### L 500.4050, L100.0100 ####[facility] [address] [place], [address] Bilirubin [Mass/Vol] 0.24 mg/dL Normal 0.00-1.30 [facility] Comment on above: Order Comment: 301-1 Performed By: #### L 500.4050, L100.0100 ####[facility] [address] [place], [address] BUN/CRE 37.3 RATIO High 10-20 [facility] Comment on above: Order Comment: 301-1 Performed By: #### L 500.4050, L100.0100 ####[facility] [address] [place], [address] Calcium [Mass/Vol] 8.7 mg/dL Normal 7.6-11.0 [facility] Comment on above: Order Comment: 301-1 Performed By: #### L 500.4050, L100.0100 ####[facility] [address] [place], [address] Chloride [Moles/Vol] 101 mmol/L Normal 98-108 [facility] Comment on above: Order Comment: 301-1 Performed By: #### L 500.4050, L100.0100 ####[facility] [address] [place], [address] CO2 [Moles/Vol] 21.9 mmol/L Normal 21.0-32.0 [facility] Comment on above: Order Comment: 301-1 Performed By: #### L 500.4050, L100.0100 ####[facility] [address] [place], [address] Creatinine [Mass/Vol] 0.58 mg/dL Low 0.70-1.20 [facility] Comment on above: Order Comment: 301-1 Performed By: #### L 500.4050, L100.0100 ####[facility] [address] [place], [address] GAP 11 Normal 5-15 [facility] Comment on above: Order Comment: 301-1 Performed By: #### L 500.4050, L100.0100 ####[facility] [address] [place], [address] GFR/1.73 sq M.predicted among non-blacks MDRD (S/P/Bld) [Vol rate/Area] 91 mL/min/{1.73_m2} Normal >60 [facility] Comment on above: Order Comment: 301-1 Result Comment: mL/m in/1.73m2 CKD-EPI Creatinine Equation (2020) Performed By: #### L 500.4050, L100.0100 ####[facility] [address] [place], [address] Globulin (S) [Mass/Vol] 2.3 g/dL Normal 2.2-4.2 [facility] Comment on above: Order Comment: 301-1 Performed By: #### L 500.4050, L100.0100 ####[facility] [address] [place], [address] Glucose [Mass/Vol] 87 mg/dL Normal 70-99 [facility] Comment on above: Order Comment: 301-1 Performed By: #### L 500.4050, L100.0100 ####[facility] [address] [place], [address] Potassium [Moles/Vol] 3.3 mmol/L Normal 3.3-5.1 [facility] Comment on above: Order Comment: 301-1 Performed By: #### L 500.4050, L100.0100 ####[facility] [address] [place], [address] Sodium [Moles/Vol] 134 mmol/L Normal 133-145 [facility] Comment on above: Order Comment: 301-1 Performed By: #### L 500.4050, L100.0100 ####[facility] [address] [place], [address] T PROT 5.4 g/dL Low 5.9-8.4 [facility] Comment on above: Order Comment: 301-1 Performed By: #### L 500.4050, L100.0100 ####[facility] [address] [place], [address] Urea nitrogen [Mass/Vol] 22 mg/dL High 4-19 [facility] Comment on above: Order Comment: 301-1 Performed By: #### L 500.4050, L100.0100 ####[facility] [address] [place], [address] Eosinophil percentageOrdered By: Gene Duenas on 02-18-2025 Eosinophils/100 WBC (Bld) 4.0 % 0-5 [facility] Erythrocyte distribution wid th ratioOrdered By: Gene Duenas on 02-18-2025 Erythrocyte distribution width (RBC) [Ratio] 13.0 % 11.6-14.6 [facility] Erythrocyte distribution wid th standard deviationOrdered By: Gene Duenas on 02-18-2025 Erythrocyte distribution width (RBC) [Ratio] 43.1 fl 35.1-43.9 [facility] Glomerular filtration rate ( GFR) estimation/1.73 sq m using serum, plasma, or whole bOrdered By: Gene Duenas on 02-18-2025 GFR/1.73 sq M.predicted among non-blacks MDRD (S/P/Bld) [Vol rate/Area] 91 mL/min/{1.73_m2} >60 [facility] Comment on above: mL/min/1.73m2 CKD-EP I Creatinine Equation (2020) Hematocrit Auto (Bld) [Volum e fraction]Ordered By: Gene Duenas on 02-18-2025 Hematocrit (Bld) [Volume fraction] 34.1 % Low 37-47 [facility] Hemoglobin measurementOrdere d By: Gene Duenas on 02-18-2025 Hemoglobin (Bld) [Mass/Vol] 11.2 g/dL Low 12.0-15.0 [facility] Immature granulocytes/100 WB C Auto (Bld)Ordered By: Gene Duenas on 02-18-2025 Immature granulocytes/100 WBC (Bld) 0.500 % 0.0-0.9 [facility] Comment on above: IG% - Immature Granu locytes (promyelocytes, myelocytes and metamyelocytes) > 1% indicates that a LEFT SHIFT is Present. Ketones Test strip Ql (U)Ord ered By: Gene Duenas on 02-18-2025 Ketones Ql (U) 5 mg/dl High Negative [facility] Laboratory - Chemistry and C hemistry - challengeOrdered By: Gene Duneas on 02-18-2025 AST [Catalytic activity/Vol] 16 U/L <32 [facility] MCV (mean corpuscular volume ) determinationOrdered By: Gene Duenas on 02-18-2025 MCV (RBC) [Entitic vol] 89.7 fL 81-99 [facility] Mean corpuscular hemoglobin (MCH) determinationOrdered By: Gene Duenas on 02-18-2025 MCH (RBC) [Entitic mass] 29.5 pg 27.0-32.0 [facility] Mean corpuscular hemoglobin concentration (MCHC) determinationOrdered By: Gene Duenas on 02-18-2025 MCHC (RBC) [Mass/Vol] 32.8 g/dL 32-36 [facility] Mean platelet volume determi nationOrdered By: Gene Duenas on 02-18-2025 Platelet mean volume (Bld) [Entitic vol] 9.6 fL 6.2-12.0 [facility] Microscopic analysis of urin e for red blood cells (RBC)Ordered By: Gene Duenas on 02-18-2025 Microscopic analysis of urine for red blood cells (RBC) 5-10 SEEN /hpf 0-5 [facility] Monocyte percentageOrdered B y: Gene Duenas on 02-18-2025 Monocytes/100 WBC (Bld) 8.2 % 0-10 [facility] Mucus LM Ql (Urine sed)Order ed By: Gene Duenas on 02-18-2025 Mucus Ql (Urine sed) 0 SEEN /hpf [facility] Neutrophil percentageOrdered By: Gene Duenas on 02-18-2025 Neutrophils/100 WBC (Bld) 66.0 % 47-70 [facility] Nitrite Test strip Ql (U)Ord ered By: Gene Duenas on 02-18-2025 Nitrite Ql (U) Negative Negative [facility] Nucleated red blood cell per centageOrdered By: Gene Duenas on 02-18-2025 Nucleated RBC/100 WBC (Bld) [Ratio] 0 % 0-5 [facility] Platelet countOrdered By: Tatum on 02-18-2025 Platelets (Bld) [#/Vol] 353 10*3/uL 150-450 [facility] Potassium measurement (mass/ volume)Ordered By: Gene Duenas on 02-18-2025 Potassium (Unsp spec) [Mass/Vol] 3.3 mmol/L 3.3-5.1 [facility] Protein Test strip Ql (U)Ord ered By: Gene Duenas on 02-18-2025 Protein Ql (U) 100 mg/dl High Negative [facility] RBC Auto (Bld) [#/Vol]Ordere d By: Gene Duenas on 02-18-2025 RBC (Bld) [#/Vol] 3.80 10*6/uL Low 4.2-5.4 [facility] Serum creatinine measurement (mass/volume)Ordered By: Gene Duenas on 02-18-2025 Creatinine [Mass/Vol] 0.58 mg/dL Low 0.70-1.20 [facility] Serum globulin measurementOr dered By: Gene Duenas on 02-18-2025 Globulin (S) [Mass/Vol] 2.3 g/dL 2.2-4.2 [facility] Serum glucose measurement (m ass/volume)Ordered By: Gene Duenas on 02-18-2025 Glucose [Mass/Vol] 87 mg/dL 70-99 [facility] Serum or plasma alanine simeon otransferase (ALT) measurementOrdered By: Gene Duenas on 02-18-2025 ALT [Catalytic activity/Vol] 10 U/L <35 [facility] Serum or plasma albumin cindy urement (mass/volume)Ordered By: Gene Duenas on 02-18-2025 Albumin [Mass/Vol] 3.1 g/dL Low 3.4-4.8 [facility] Serum or plasma albumin/glob ulin mass ratioOrdered By: Gene Duenas on 02-18-2025 Albumin/Globulin [Mass ratio] 1.4 {ratio} 0.9-2.4 [facility] Serum or plasma alkaline avani sphatase measurementOrdered By: Gene Duenas on 02-18-2025 ALP [Catalytic activity/Vol] 67 U/L 35-104 [facility] Serum or plasma calcium cindy urement (mass/volume)Ordered By: Gene Duenas on 02-18-2025 Calcium [Mass/Vol] 8.7 mg/dL 7.6-11.0 [facility] Serum or plasma urea nitroge n measurement (mass/volume)Ordered By: Gene Duenas on 02-18-2025 Urea nitrogen [Mass/Vol] 22 mg/dL High 4-19 [facility] Sodium levelOrdered By: Gene Duenas on 02-18-2025 Sodium [Moles/Vol] 134 mmol/L 133-145 [facility] Squamous epithelial cells de tection in urine sediment by light microscopyOrdered By: Gene Duenas on 02-18-2025 Epithelial cells.squamous LM Ql (Urine sed) 0-5 SEEN /hpf 5-10 [facility] Total proteinOrdered By: Fabi Duenas on 02-18-2025 Protein [Mass/Vol] 5.4 g/dL Low 5.9-8.4 [facility] Triple phosphate crystals de tection in urine sediment by light microscopyOrdered By: Gene Duenas on 02-18-2025 Triple phosphate crystals LM Ql (Urine sed) 1+ /hpf [facility] Urinalysis, Completeon 02-18 EPI,SQUAMOUS 0-5 SEEN Normal 5-10 [facility] Comment on above: Order Comment: 301-1 CLEAN CATCH Performed By: #### M 100.2200, L400.0001 ####[facility] [address] [place], [address] RBC 5-10 SEEN Normal 0-5 [facility] Comment on above: Order Comment: 301-1 CLEAN CATCH Performed By: #### M 100.2200, L400.0001 ####[facility] [address] [place], [address] WBC 5-10 SEEN Normal 0-5 [facility] Comment on above: Order Comment: 301-1 CLEAN CATCH Performed By: #### M 100.2200, L400.0001 ####[facility] [address] [place], [place], [address] BACTERIA 3+ /hpf Normal None Seen [facility] Comment on above: Order Comment: 301-1 CLEAN CATCH Performed By: #### M 100.2200, L400.0001 ####[facility] [address] [place], [address] TRIPLE PHOS 1+ /hpf Normal [facility] Comment on above: Order Comment: 301-1 CLEAN CATCH Performed By: #### M 100.2200, L400.0001 ####[facility] [address] [place], [address] Mucus Ql (Urine sed) 0 SEEN Normal [facility] Comment on above: Order Comment: 301-1 CLEAN CATCH Performed By: #### M 100.2200, L400.0001 ####[facility] [address] [place], [address] Urine clarityOrdered By: Fbai Duenas on 02-18-2025 Clarity (U) Cloudy Clear [facility] Urine color determinationOrd ered By: Gene Duenas on 02-18-2025 Color (U) Yellow Yellow [facility] Urine cultureOrdered By: Fabi Duenas on 02-18-2025 Bacteria identified Cx Nom (U) Enterococcus faecalis Abnormal [facility] Bacteria identified Cx Nom (U) Negative Abnormal [facility] Urine glucose detectionOrder ed By: Gene Duenas on 02-18-2025 Glucose Ql (U) Normal mg/dl Normal [facility] Urine leukocyte esterase det ection by dipstickOrdered By: Gene Duenas on 02-18-2025 Leukocyte esterase Test strip Ql (U) 25 /ul High Negative [facility] Urine pHOrdered By: Gene davidson on 02-18-2025 pH (U) 8.0 [pH] 5.0 - 8.0 [facility] Urine sediment bacteria coun t by microscopy (number/high power field)Ordered By: Gene Duenas on 02-18-2025 Bacteria LM.HPF (Urine sed) [#/Area] 3 /[HPF] None Seen [facility] Urine specific gravity measu rementOrdered By: Gene Duenas on 02-18-2025 Specific gravity (U) [Rel density] 1.010 1.002-1.030 [facility] Urine urobilinogen measureme ntOrdered By: Gene Duenas on 02-18-2025 Urobilinogen Ql (U) Normal mg/dl Normal [facility] White blood cell (WBC) count Ordered By: Gene Duenas on 02-18-2025 WBC (Bld) [#/Vol] 5.5 10*3/uL 4.4-11.0 [facility] White blood cell countOrdere d By: Gene Duenas on 02-18-2025 White blood cell count 5-10 SEEN /hpf 0-5 [facility] Anion gap in Serum or Plasma Ordered By: Gene Duenas on 02-09-2025 Anion gap [Moles/Vol] 11 mmol/L 5-15 [facility] BUN/creatinine ratioOrdered By: Gene Duenas on 02-09-2025 Urea nitrogen/Creatinine [Mass ratio] 17.0 mg/mg 10- [facility] Basic Metabolic Profile (BMP )on 02-09-2025 BUN/CRE 17.0 RATIO Normal - [facility] Comment on above: Order Comment: 301-1 Performed By: #### L 500.2500 ####[facility] [address] [place], [address] Calcium [Mass/Vol] 9.2 mg/dL Normal 7.6-11.0 [facility] Comment on above: Order Comment: 301-1 Performed By: #### L 500.2500 ####[facility] [address] [place], [address] Chloride [Moles/Vol] 100 mmol/L Normal 98-108 [facility] Comment on above: Order Comment: 301-1 Performed By: #### L 500.2500 ####[facility] [address] [place], [address] CO2 [Moles/Vol] 22.4 mmol/L Normal 21.0-32.0 [facility] Comment on above: Order Comment: 301-1 Performed By: #### L 500.2500 ####[facility] [address] [place], [address] Creatinine [Mass/Vol] 0.59 mg/dL Low 0.70-1.20 [facility] Comment on above: Order Comment: 301-1 Performed By: #### L 500.2500 ####[facility] [address] [place], [address] GAP 11 Normal 5-15 [facility] Comment on above: Order Comment: 301-1 Performed By: #### L 500.2500 ####[facility] [address] [place], [address] GFR/1.73 sq M.predicted among non-blacks MDRD (S/P/Bld) [Vol rate/Area] 91 mL/min/{1.73_m2} Normal >60 [facility] Comment on above: Order Comment: 301-1 Result Comment: mL/m in/1.73m2 CKD-EPI Creatinine Equation (2020) Performed By: #### L 500.2500 ####[facility] [address] [place], [address] Glucose [Mass/Vol] 91 mg/dL Normal 70-99 [facility] Comment on above: Order Comment: 301-1 Performed By: #### L 500.2500 ####[facility] [address] [place], [address] Potassium [Moles/Vol] 3.8 mmol/L Normal 3.3-5.1 [facility] Comment on above: Order Comment: 301-1 Performed By: #### L 500.2500 ####[facility] [address] [place], [address] Sodium [Moles/Vol] 133 mmol/L Normal 133-145 [facility] Comment on above: Order Comment: 301-1 Performed By: #### L 500.2500 ####[facility] [address] [place], [place], [address] Urea nitrogen [Mass/Vol] 10 mg/dL Normal 4-19 [facility] Comment on above: Order Comment: 301-1 Performed By: #### L 500.2500 ####[facility] [address] [place], [place], [address] Carbon dioxide, total [Moles /volume] in Central venous bloodOrdered By: Gene Duenas on 02-09-2025 CO2 [Moles/Vol] 22.4 mmol/L 21.0-32.0 [facility] Chloride assayOrdered By: Tatum on 02-09-2025 Chloride [Moles/Vol] 100 mmol/L 98-108 [facility] Glomerular filtration rate ( GFR) estimation/1.73 sq m using serum, plasma, or whole bOrdered By: Gene Duenas on 02-09-2025 GFR/1.73 sq M.predicted among non-blacks MDRD (S/P/Bld) [Vol rate/Area] 91 mL/min/{1.73_m2} >60 [facility] Comment on above: mL/min/1.73m2 CKD-EP I Creatinine Equation (2020) Potassium measurement (mass/ volume)Ordered By: Gene Duenas on 02-09-2025 Potassium (Unsp spec) [Mass/Vol] 3.8 mmol/L 3.3-5.1 [facility] Serum creatinine measurement (mass/volume)Ordered By: Gene Duenas on 02-09-2025 Creatinine [Mass/Vol] 0.59 mg/dL Low 0.70-1.20 [facility] Serum glucose measurement (m ass/volume)Ordered By: Gene Duenas on 02-09-2025 Glucose [Mass/Vol] 91 mg/dL 70-99 [facility] Serum or plasma calcium cindy urement (mass/volume)Ordered By: Gene Duenas on 02-09-2025 Calcium [Mass/Vol] 9.2 mg/dL 7.6-11.0 [facility] Serum or plasma urea nitroge n measurement (mass/volume)Ordered By: Gene Duenas on 02-09-2025 Urea nitrogen [Mass/Vol] 10 mg/dL - [facility] Sodium levelOrdered By: Gene Duenas on 02-09-2025 Sodium [Moles/Vol] 133 mmol/L 133-145 [facility] Anion gap in Serum or Plasma Ordered By: Gene Duenas on 02-06-2025 Anion gap [Moles/Vol] 11 mmol/L - [facility] BUN/creatinine ratioOrdered By: Gene Duenas on 02-06-2025 Urea nitrogen/Creatinine [Mass ratio] 17.3 mg/mg - [facility] Bilirubin, totalOrdered By: Gene Duenas on 02-06-2025 Bilirubin [Mass/Vol] 0.32 mg/dL 0.00-1.30 [facility] CBC-Complete Blood Cnt No Di ffon 02-06-2025 Erythrocyte distribution width (RBC) [Ratio] 13.0 % Normal 11.6-14.6 [facility] Comment on above: Order Comment: . Performed By: #### L 500.4050, L100.0500 ####[facility] [address] [place], [address] Hematocrit (Bld) [Volume fraction] 36.4 % Low 37-47 [facility] Comment on above: Order Comment: . Performed By: #### L 500.4050, L100.0500 ####[facility] [address] [place], [address] Hemoglobin (Bld) [Mass/Vol] 12.3 g/dL Normal 12.0-15.0 [facility] Comment on above: Order Comment: . Performed By: #### L 500.4050, L100.0500 ####[facility] [address] [place], [address] MCH (RBC) [Entitic mass] 30.1 pg Normal 27.0-32.0 [facility] Comment on above: Order Comment: . Performed By: #### L 500.4050, L100.0500 ####[facility] [address] [place], [address] MCHC (RBC) [Mass/Vol] 33.8 g/dL Normal 32-36 [facility] Comment on above: Order Comment: .1 Performed By: #### L 500.4050, L100.0500 ####[facility] [address] [place], [address] MCV (RBC) [Entitic vol] 89.0 fL Normal 81-99 [facility] Comment on above: Order Comment: . Performed By: #### L 500.4050, L100.0500 ####[facility] [address] [place], [address] Platelet mean volume (Bld) [Entitic vol] 9.4 fL Normal 6.2-12.0 [facility] Comment on above: Order Comment: . Performed By: #### L 500.4050, L100.0500 ####[facility] [address] [place], [address] Platelets (Bld) [#/Vol] 279 10*3/uL Normal 150-450 [facility] Comment on above: Order Comment: . Performed By: #### L 500.4050, L100.0500 ####[facility] [address] [place], [address] RBC (Bld) [#/Vol] 4.09 10*6/uL Low 4.2-5.4 [facility] Comment on above: Order Comment: . Performed By: #### L 500.4050, L100.0500 ####[facility] [address] [place], [address] RDW SD 42.4 fl Normal 35.1-43.9 [facility] Comment on above: Order Comment: . Performed By: #### L 500.4050, L100.0500 ####[facility] [address] [place], [address] WBC (Bld) [#/Vol] 4.8 10*3/uL Normal 4.4-11.0 [facility] Comment on above: Order Comment: . Performed By: #### L 500.4050, L100.0500 ####[facility] [address] [place], [address] Carbon dioxide, total [Moles /volume] in Central venous bloodOrdered By: Gene Duenas on 02-06-2025 CO2 [Moles/Vol] 21.0 mmol/L 21.0-32.0 [facility] Chloride assayOrdered By: Tatum on 02-06-2025 Chloride [Moles/Vol] 96 mmol/L Low 98-108 [facility] Comprehensive Metabolic Prof ilon 02-06-2025 Albumin [Mass/Vol] 3.7 g/dL Normal 3.4-4.8 [facility] Comment on above: Order Comment: . Performed By: #### L 500.4050, L100.0500 ####[facility] [address] [place], [address] Albumin/Globulin [Mass ratio] 1.4 {ratio} Normal 0.9-2.4 [facility] Comment on above: Order Comment: . Performed By: #### L 500.4050, L100.0500 ####[facility] [address] [place], [address] ALK PHOS 78 U/L Normal 35-104 [facility] Comment on above: Order Comment: . Performed By: #### L 500.4050, L100.0500 ####[facility] [address] [place], [address] ALT [Catalytic activity/Vol] 14 U/L Normal <=34 [facility] Comment on above: Order Comment: . Performed By: #### L 500.4050, L100.0500 ####[facility] [address] [place], [address] AST [Catalytic activity/Vol] 20 U/L Normal <=31 [facility] Comment on above: Order Comment: .1 Performed By: #### L 500.4050, L100.0500 ####[facility] [address] [place], [address] Bilirubin [Mass/Vol] 0.32 mg/dL Normal 0.00-1.30 [facility] Comment on above: Order Comment: . Performed By: #### L 500.4050, L100.0500 ####[facility] [address] [place], [address] BUN/CRE 17.3 RATIO Normal 10-20 [facility] Comment on above: Order Comment: . Performed By: #### L 500.4050, L100.0500 ####[facility] [address] [place], [address] Calcium [Mass/Vol] 9.2 mg/dL Normal 7.6-11.0 [facility] Comment on above: Order Comment: . Performed By: #### L 500.4050, L100.0500 ####[facility] [address] [place], [address] Chloride [Moles/Vol] 96 mmol/L Low 98-108 [facility] Comment on above: Order Comment: . Performed By: #### L 500.4050, L100.0500 ####[facility] [address] [place], [address] CO2 [Moles/Vol] 21.0 mmol/L Normal 21.0-32.0 [facility] Comment on above: Order Comment: . Performed By: #### L 500.4050, L100.0500 ####[facility] [address] [place], [address] Creatinine [Mass/Vol] 0.66 mg/dL Low 0.70-1.20 [facility] Comment on above: Order Comment: . Performed By: #### L 500.4050, L100.0500 ####[facility] [address] [place], [address] GAP 11 Normal 5-15 [facility] Comment on above: Order Comment: . Performed By: #### L 500.4050, L100.0500 ####[facility] [address] [place], [address] GFR/1.73 sq M.predicted among non-blacks MDRD (S/P/Bld) [Vol rate/Area] 88 mL/min/{1.73_m2} Normal >60 [facility] Comment on above: Order Comment: . Result Comment: mL/m in/1.73m2 CKD-EPI Creatinine Equation (2020) Performed By: #### L 500.4050, L100.0500 ####[facility] [address] [place], [address] Globulin (S) [Mass/Vol] 2.6 g/dL Normal 2.2-4.2 [facility] Comment on above: Order Comment: . Performed By: #### L 500.4050, L100.0500 ####[facility] [address] [place], [address] Glucose [Mass/Vol] 93 mg/dL Normal 70-99 [facility] Comment on above: Order Comment: . Performed By: #### L 500.4050, L100.0500 ####[facility] [address] [place], [address] Potassium [Moles/Vol] 4.0 mmol/L Normal 3.3-5.1 [facility] Comment on above: Order Comment: 202.1 Performed By: #### L 500.4050, L100.0500 ####[facility] [address] [place], [address] Sodium [Moles/Vol] 128 mmol/L Low 133-145 [facility] Comment on above: Order Comment: 202.1 Performed By: #### L 500.4050, L100.0500 ####[facility] [address] [place], [address] T PROT 6.2 g/dL Normal 5.9-8.4 [facility] Comment on above: Order Comment: . Performed By: #### L 500.4050, L100.0500 ####[facility] [address] [place], [address] Urea nitrogen [Mass/Vol] 11 mg/dL Normal 4-19 [facility] Comment on above: Order Comment: . Performed By: #### L 500.4050, L100.0500 ####[facility] [address] [place], [address] Erythrocyte distribution wid th ratioOrdered By: Gene Duenas on 02-06-2025 Erythrocyte distribution width (RBC) [Ratio] 13.0 % 11.6-14.6 [facility] Erythrocyte distribution wid th standard deviationOrdered By: Gene Duenas on 02-06-2025 Erythrocyte distribution width (RBC) [Ratio] 42.4 fl 35.1-43.9 [facility] Glomerular filtration rate ( GFR) estimation/1.73 sq m using serum, plasma, or whole bOrdered By: Gene Duenas on 02-06-2025 GFR/1.73 sq M.predicted among non-blacks MDRD (S/P/Bld) [Vol rate/Area] 88 mL/min/{1.73_m2} >60 [facility] Comment on above: mL/min/1.73m2 CKD-EP I Creatinine Equation (2020) Hematocrit Auto (Bld) [Volum e fraction]Ordered By: Gene Duenas on 02-06-2025 Hematocrit (Bld) [Volume fraction] 36.4 % Low 37-47 [facility] Hemoglobin measurementOrdere d By: Gene Duenas on 02-06-2025 Hemoglobin (Bld) [Mass/Vol] 12.3 g/dL 12.0-15.0 [facility] Laboratory - Chemistry and C hemistry - challengeOrdered By: Gene Duenas on 02-06-2025 AST [Catalytic activity/Vol] 20 U/L <32 [facility] MCV (mean corpuscular volume ) determinationOrdered By: Gene Duenas on 02-06-2025 MCV (RBC) [Entitic vol] 89.0 fL 81-99 [facility] Mean corpuscular hemoglobin (MCH) determinationOrdered By: Gene Duenas on 02-06-2025 MCH (RBC) [Entitic mass] 30.1 pg 27.0-32.0 [facility] Mean corpuscular hemoglobin concentration (MCHC) determinationOrdered By: Gene Duenas on 02-06-2025 MCHC (RBC) [Mass/Vol] 33.8 g/dL 32-36 [facility] Mean platelet volume determi nationOrdered By: Gene Duenas on 02-06-2025 Platelet mean volume (Bld) [Entitic vol] 9.4 fL 6.2-12.0 [facility] Platelet countOrdered By: Tatum on 02-06-2025 Platelets (Bld) [#/Vol] 279 10*3/uL 150-450 [facility] Potassium measurement (mass/ volume)Ordered By: Gene Duenas on 02-06-2025 Potassium (Unsp spec) [Mass/Vol] 4.0 mmol/L 3.3-5.1 [facility] RBC Auto (Bld) [#/Vol]Ordere d By: Gene Duenas on 02-06-2025 RBC (Bld) [#/Vol] 4.09 10*6/uL Low 4.2-5.4 [facility] Serum creatinine measurement (mass/volume)Ordered By: Gene Duenas on 02-06-2025 Creatinine [Mass/Vol] 0.66 mg/dL Low 0.70-1.20 [facility] Serum globulin measurementOr dered By: Gene Duenas on 02-06-2025 Globulin (S) [Mass/Vol] 2.6 g/dL 2.2-4.2 [facility] Serum glucose measurement (m ass/volume)Ordered By: Gene Duenas on 02-06-2025 Glucose [Mass/Vol] 93 mg/dL 70-99 [facility] Serum or plasma alanine simeon otransferase (ALT) measurementOrdered By: Gene Duenas on 02-06-2025 ALT [Catalytic activity/Vol] 14 U/L <35 [facility] Serum or plasma albumin cindy urement (mass/volume)Ordered By: Gene Duenas on 02-06-2025 Albumin [Mass/Vol] 3.7 g/dL 3.4-4.8 [facility] Serum or plasma albumin/glob ulin mass ratioOrdered By: Gene Duenas on 02-06-2025 Albumin/Globulin [Mass ratio] 1.4 {ratio} 0.9-2.4 [facility] Serum or plasma alkaline avani sphatase measurementOrdered By: Gene Duenas on 02-06-2025 ALP [Catalytic activity/Vol] 78 U/L 35-104 [facility] Serum or plasma calcium cindy urement (mass/volume)Ordered By: Gene Duenas on 02-06-2025 Calcium [Mass/Vol] 9.2 mg/dL 7.6-11.0 [facility] Serum or plasma urea nitroge n measurement (mass/volume)Ordered By: Gene Duenas on 02-06-2025 Urea nitrogen [Mass/Vol] 11 mg/dL 4-19 [facility] Sodium levelOrdered By: Gene Duenas on 02-06-2025 Sodium [Moles/Vol] 128 mmol/L Low 133-145 [facility] Total proteinOrdered By: Fabi Duenas on 02-06-2025 Protein [Mass/Vol] 6.2 g/dL 5.9-8.4 [facility] White blood cell (WBC) count Ordered By: Geen Duenas on 02-06-2025 WBC (Bld) [#/Vol] 4.8 10*3/uL 4.4-11.0 [facility] 36on 01-27-2025 36 Pt scheduled for cys to with Dr. Georges on 03/02 at 9:20am. This is the earliest facility can bring the patient in for appt as Pt under usp . Ayala aware someone has to come in with patient if transfer/ambulation help needed. Normal [facility] 36on 01-26-2025 36 Message released to patient as written. Patient's further questions if applicable: message was released to Ayala and she would like to schedule cystoscopy Were all questions from office addressed or relayed to the patient from encounter: Yes Normal [facility] Anion gap in Serum or Plasma Ordered By: Gene Duenas on 01-26-2025 Anion gap [Moles/Vol] 11 mmol/L 5-15 [facility] BUN/creatinine ratioOrdered By: Gene Duenas on 01-26-2025 Urea nitrogen/Creatinine [Mass ratio] 18.0 mg/mg - [facility] Basic Metabolic Profile (BMP )on 01-26-2025 BUN/CRE 18.0 RATIO Normal - [facility] Comment on above: Order Comment: . Performed By: #### L 100.0500, L500.2500 ####[facility] [address] [place], [address] Calcium [Mass/Vol] 9.1 mg/dL Normal 7.6-11.0 [facility] Comment on above: Order Comment: . Performed By: #### L 100.0500, L500.2500 ####[facility] [address] [place], [address] Chloride [Moles/Vol] 102 mmol/L Normal 98-108 [facility] Comment on above: Order Comment: . Performed By: #### L 100.0500, L500.2500 ####[facility] [address] [place], [address] CO2 [Moles/Vol] 22.0 mmol/L Normal 21.0-32.0 [facility] Comment on above: Order Comment: . Performed By: #### L 100.0500, L500.2500 ####[facility] [address] [place], [address] Creatinine [Mass/Vol] 0.63 mg/dL Low 0.70-1.20 [facility] Comment on above: Order Comment: . Performed By: #### L 100.0500, L500.2500 ####[facility] [address] [place], [address] GAP 11 Normal 5-15 [facility] Comment on above: Order Comment: . Performed By: #### L 100.0500, L500.2500 ####[facility] [address] [place], [address] GFR/1.73 sq M.predicted among non-blacks MDRD (S/P/Bld) [Vol rate/Area] 89 mL/min/{1.73_m2} Normal >60 [facility] Comment on above: Order Comment: . Result Comment: mL/m in/1.73m2 CKD-EPI Creatinine Equation (2020) Performed By: #### L 100.0500, L500.2500 ####[facility] [address] [place], [address] Glucose [Mass/Vol] 102 mg/dL High 70-99 [facility] Comment on above: Order Comment: . Performed By: #### L 100.0500, L500.2500 ####[facility] [address] [place], [address] Potassium [Moles/Vol] 4.0 mmol/L Normal 3.3-5.1 [facility] Comment on above: Order Comment: . Performed By: #### L 100.0500, L500.2500 ####[facility] [address] [place], [address] Sodium [Moles/Vol] 134 mmol/L Normal 133-145 [facility] Comment on above: Order Comment: . Performed By: #### L 100.0500, L500.2500 ####[facility] [address] [place], [address] Urea nitrogen [Mass/Vol] 11 mg/dL Normal 4-19 [facility] Comment on above: Order Comment: . Performed By: #### L 100.0500, L500.2500 ####[facility] [address] [place], [address] CBC-Complete Blood Cnt No ffon 01-26-2025 Erythrocyte distribution width (RBC) [Ratio] 12.9 % Normal 11.6-14.6 [facility] Comment on above: Order Comment: . Performed By: #### L 100.0500, L500.2500 ####[facility] [address] [place], [address] Hematocrit (Bld) [Volume fraction] 37.3 % Normal 37-47 [facility] Comment on above: Order Comment: . Performed By: #### L 100.0500, L500.2500 ####[facility] [address] [place], [address] Hemoglobin (Bld) [Mass/Vol] 12.3 g/dL Normal 12.0-15.0 [facility] Comment on above: Order Comment: . Performed By: #### L 100.0500, L500.2500 ####[facility] [address] [place], [address] MCH (RBC) [Entitic mass] 29.6 pg Normal 27.0-32.0 [facility] Comment on above: Order Comment: . Performed By: #### L 100.0500, L500.2500 ####[facility] [address] [place], [address] MCHC (RBC) [Mass/Vol] 33.0 g/dL Normal 32-36 [facility] Comment on above: Order Comment: . Performed By: #### L 100.0500, L500.2500 ####[facility] [address] [place], [address] MCV (RBC) [Entitic vol] 89.9 fL Normal 81-99 [facility] Comment on above: Order Comment: . Performed By: #### L 100.0500, L500.2500 ####[facility] [address] [place], [address] Platelet mean volume (Bld) [Entitic vol] 9.8 fL Normal 6.2-12.0 [facility] Comment on above: Order Comment: . Performed By: #### L 100.0500, L500.2500 ####[facility] [address] [place], [address] Platelets (Bld) [#/Vol] 295 10*3/uL Normal 150-450 [facility] Comment on above: Order Comment: . Performed By: #### L 100.0500, L500.2500 ####[facility] [address] [place], [address] RBC (Bld) [#/Vol] 4.15 10*6/uL Low 4.2-5.4 [facility] Comment on above: Order Comment: . Performed By: #### L 100.0500, L500.2500 ####[facility] [address] [place], [address] RDW SD 42.5 fl Normal 35.1-43.9 [facility] Comment on above: Order Comment: . Performed By: #### L 100.0500, L500.2500 ####[facility] [address] [place], [address] WBC (Bld) [#/Vol] 5.9 10*3/uL Normal 4.4-11.0 [facility] Comment on above: Order Comment: . Performed By: #### L 100.0500, L500.2500 ####[facility] [address] [place], [address] Carbon dioxide, total [Moles /volume] in Central venous bloodOrdered By: Gene Duenas on 01-26-2025 CO2 [Moles/Vol] 22.0 mmol/L 21.0-32.0 [facility] Chloride assayOrdered By: Tatum on 01-26-2025 Chloride [Moles/Vol] 102 mmol/L 98-108 [facility] Erythrocyte distribution wid th ratioOrdered By: Gene Duenas on 01-26-2025 Erythrocyte distribution width (RBC) [Ratio] 12.9 % 11.6-14.6 [facility] Erythrocyte distribution wid th standard deviationOrdered By: Gene Duenas on 01-26-2025 Erythrocyte distribution width (RBC) [Ratio] 42.5 fl 35.1-43.9 [facility] Glomerular filtration rate ( GFR) estimation/1.73 sq m using serum, plasma, or whole bOrdered By: Gene Duenas on 01-26-2025 GFR/1.73 sq M.predicted among non-blacks MDRD (S/P/Bld) [Vol rate/Area] 89 mL/min/{1.73_m2} >60 [facility] Comment on above: mL/min/1.73m2 CKD-EP I Creatinine Equation (2020) Hematocrit Auto (Bld) [Volum e fraction]Ordered By: Gene Duenas on 01-26-2025 Hematocrit (Bld) [Volume fraction] 37.3 % 37-47 [facility] Hemoglobin measurementOrdere d By: Gene Duenas on 01-26-2025 Hemoglobin (Bld) [Mass/Vol] 12.3 g/dL 12.0-15.0 [facility] MCV (mean corpuscular volume ) determinationOrdered By: Gene Duenas on 01-26-2025 MCV (RBC) [Entitic vol] 89.9 fL 81-99 [facility] Mean corpuscular hemoglobin (MCH) determinationOrdered By: Gene Duenas on 01-26-2025 MCH (RBC) [Entitic mass] 29.6 pg 27.0-32.0 [facility] Mean corpuscular hemoglobin concentration (MCHC) determinationOrdered By: Gene Duenas on 01-26-2025 MCHC (RBC) [Mass/Vol] 33.0 g/dL 32-36 [facility] Mean platelet volume determi nationOrdered By: Gene Duenas on 01-26-2025 Platelet mean volume (Bld) [Entitic vol] 9.8 fL 6.2-12.0 [facility] Platelet countOrdered By: Tatum on 01-26-2025 Platelets (Bld) [#/Vol] 295 10*3/uL 150-450 [facility] Potassium measurement (mass/ volume)Ordered By: Gene Duenas on 01-26-2025 Potassium (Unsp spec) [Mass/Vol] 4.0 mmol/L 3.3-5.1 [facility] RBC Auto (Bld) [#/Vol]Ordere d By: Gene Duenas on 01-26-2025 RBC (Bld) [#/Vol] 4.15 10*6/uL Low 4.2-5.4 [facility] Serum creatinine measurement (mass/volume)Ordered By: Gene Duenas on 01-26-2025 Creatinine [Mass/Vol] 0.63 mg/dL Low 0.70-1.20 [facility] Serum glucose measurement (m ass/volume)Ordered By: Gene Duenas on 01-26-2025 Glucose [Mass/Vol] 102 mg/dL High 70-99 [facility] Serum or plasma calcium cindy urement (mass/volume)Ordered By: Gene Duenas on 01-26-2025 Calcium [Mass/Vol] 9.1 mg/dL 7.6-11.0 [facility] Serum or plasma urea nitroge n measurement (mass/volume)Ordered By: Gene Duenas on 01-26-2025 Urea nitrogen [Mass/Vol] 11 mg/dL 4-19 [facility] Sodium levelOrdered By: Gene Duenas on 01-26-2025 Sodium [Moles/Vol] 134 mmol/L 133-145 [facility] White blood cell (WBC) count Ordered By: Gene Duenas on 01-26-2025 WBC (Bld) [#/Vol] 5.9 10*3/uL 4.4-11.0 [facility] Urine Cultureon 01-24-[address] [facility] Comment on above: Performed By: #### M 100.2200, L400.0001 ####[facility] [address] [place], [address] 36on 01-23-2025 36 Keep gill and needs follow up for cystoscopy in the next couple of weeks. Normal [facility] 36 Ayala with [facility] left a VM in regards to [...] is something still performed and recommended. Normal [facility] Protein+Creatinine Ratio,Uri neon 01-23-2025 PROT:CRE RATIO 202 mg/g CRE High 0-200 [facility] Comment on above: Performed By: #### L 501.0900, L500.2500 ####[facility] [address] [place], [address] Protein (U) [Mass/Vol] 19.3 mg/dL High 0.0-12.0 [facility] Comment on above: Performed By: #### L 501.0900, L500.2500 ####[facility] [address] [place], [address] UR CREAT 95.40 mg/dL Normal 28.00-217.[address] [facility] Comment on above: Performed By: #### L 501.0900, L500.2500 ####[facility] [address] [place], [address] Amorphous sediment detection in urine sediment by light microscopyOrdered By: Gene Duenas on 01-22-2025 Amorphous sediment LM Ql (Urine sed) 1+ [facility] Anion gap in Serum or Plasma Ordered By: Gene Duenas on 01-22-2025 Anion gap [Moles/Vol] 10 mmol/L 5-15 [facility] BUN/creatinine ratioOrdered By: Gene Duenas on 01-22-2025 Urea nitrogen/Creatinine [Mass ratio] 26.3 mg/mg High 10-20 [facility] Basic Metabolic Profile (BMP )on 01-22-2025 BUN/CRE 26.3 RATIO High 10-20 [facility] Comment on above: Order Comment: Performed By: #### L 501.0900, L500.2500 ####[facility] [address] [place], [address] Calcium [Mass/Vol] 9.0 mg/dL Normal 7.6-11.0 [facility] Comment on above: Order Comment: Performed By: #### L 501.0900, L500.2500 ####[facility] [address] [place], [address] Chloride [Moles/Vol] 100 mmol/L Normal 98-108 [facility] Comment on above: Order Comment: Performed By: #### L 501.0900, L500.2500 ####[facility] [address] [place], [address] CO2 [Moles/Vol] 22.2 mmol/L Normal 21.0-32.0 [facility] Comment on above: Order Comment: Performed By: #### L 501.0900, L500.2500 ####[facility] [address] [place], [address] Creatinine [Mass/Vol] 0.67 mg/dL Low 0.70-1.20 [facility] Comment on above: Order Comment: Performed By: #### L 501.0900, L500.2500 ####[facility] [address] [place], [address] GAP 10 Normal 5-15 [facility] Comment on above: Order Comment: Performed By: #### L 501.0900, L500.2500 ####[facility] [address] [place], [address] GFR/1.73 sq M.predicted among non-blacks MDRD (S/P/Bld) [Vol rate/Area] 88 mL/min/{1.73_m2} Normal >60 [facility] Comment on above: Order Comment: Result Comment: mL/m in/1.73m2 CKD-EPI Creatinine Equation (2020) Performed By: #### L 501.0900, L500.2500 ####[facility] [address] [place], [address] Glucose [Mass/Vol] 102 mg/dL High 70-99 [facility] Comment on above: Order Comment: Performed By: #### L 501.0900, L500.2500 ####[facility] [address] [place], [address] Potassium [Moles/Vol] 4.3 mmol/L Normal 3.3-5.1 [facility] Comment on above: Order Comment: Performed By: #### L 501.0900, L500.2500 ####[facility] [address] [place], [address] Sodium [Moles/Vol] 132 mmol/L Low 133-145 [facility] Comment on above: Order Comment: Performed By: #### L 501.0900, L500.2500 ####[facility] [address] [place], [place], [address] Urea nitrogen [Mass/Vol] 18 mg/dL Normal 4-19 [facility] Comment on above: Order Comment: Performed By: #### L 501.0900, L500.2500 ####[facility] [address] [place], [place], [address] Bilirubin Test strip Ql (U)O rdered By: Gene Duenas on 01-22-2025 Bilirubin Ql (U) Negative Negative [facility] Carbon dioxide, total [Moles /volume] in Central venous bloodOrdered By: Gene Duenas on 01-22-2025 CO2 [Moles/Vol] 22.2 mmol/L 21.0-32.0 [facility] Chloride assayOrdered By: Tatum on 01-22-2025 Chloride [Moles/Vol] 100 mmol/L 98-108 [facility] Glomerular filtration rate ( GFR) estimation/1.73 sq m using serum, plasma, or whole bOrdered By: Gene Duenas on 01-22-2025 GFR/1.73 sq M.predicted among non-blacks MDRD (S/P/Bld) [Vol rate/Area] 88 mL/min/{1.73_m2} >60 [facility] Comment on above: mL/min/1.73m2 CKD-EP I Creatinine Equation (2020) Ketones Test strip Ql (U)Ord ered By: Gene Duenas on 01-22-2025 Ketones Ql (U) Negative Negative [facility] Microscopic analysis of urin e for red blood cells (RBC)Ordered By: Gene Duenas on 01-22-2025 Microscopic analysis of urine for red blood cells (RBC) 0 SEEN /hpf 0-5 [facility] Mucus LM Ql (Urine sed)Order ed By: Gene Duenas on 01-22-2025 Mucus Ql (Urine sed) 0 SEEN /hpf [facility] Nitrite Test strip Ql (U)Ord ered By: Gene Duenas on 01-22-2025 Nitrite Ql (U) Negative Negative [facility] Office Visiton 01-22-2025 Follow-up visit [id number] Americo Lewis 1945 F Date Provider Department Center 01/22/2025 ROSITA FLOYD [facility] None No family history on file Level of Service:76413 NC OFFICE/OUTPATIENT NEW MODERATE MDM 45 MINUTES Reason for Visit and Comments: Urinary Retention [819456] - [place] Hospitalized for fall and broken patella Normal [facility] Potassium measurement (mass/ volume)Ordered By: Gene Duenas on 01-22-2025 Potassium (Unsp spec) [Mass/Vol] 4.3 mmol/L 3.3-5.1 [facility] Progress Noteon 01-22-2025 Progress Note . Urology Office Visit [facility] [address], [address] [facility] [id number] Visit type: New Patient Reason for Visit: Urinary Retention ([place]/Hospitalized for fall and broken patella) Assessment and Plan Diagnoses and all orders for this visit: Urinary retention VT today was successful. Ok to leave catheter out. Instructions provided for SNF regarding monitoring UO and replacing gill if pt is unable to urinate. No follow-ups on file. Benjamin HPI Jero is an 79 year old female here for follow up after hospital admission at [facility] after falling and injuring her left [...] no discontinued medications. Rosita Resendiz, DORIS - [employer]ER 01/22/2025 12:36 PM [facility] Progress Note Pt presents for Voiding Trial Instilled 250CC Sterile Water into Urinary Bladder Removed 16Fr catheter after deflating 10cc balloon Pt was able to void 100 cc immediately Normal [facility] Protein Test strip Ql (U)Ord ered By: Gene Duenas on 01-22-2025 Protein Ql (U) 15 mg/dl High Negative [facility] Random urine creatinine cindy urement (mass/volume)Ordered By: Gene Duenas on 01-22-2025 Creatinine Unsp time (U) [Mass/Vol] 95.40 mg/dL 28.00-217.[address] [facility] Serum creatinine measurement (mass/volume)Ordered By: Gene Duenas on 01-22-2025 Creatinine [Mass/Vol] 0.67 mg/dL Low 0.70-1.20 [facility] Serum glucose measurement (m ass/volume)Ordered By: Geen Duenas on 01-22-2025 Glucose [Mass/Vol] 102 mg/dL High 70-99 [facility] Serum or plasma calcium cindy urement (mass/volume)Ordered By: Gene Duenas on 01-22-2025 Calcium [Mass/Vol] 9.0 mg/dL 7.6-11.0 [facility] Serum or plasma urea nitroge n measurement (mass/volume)Ordered By: Gene Duenas on 01-22-2025 Urea nitrogen [Mass/Vol] 18 mg/dL 4-19 [facility] Sodium levelOrdered By: Gene Duenas on 01-22-2025 Sodium [Moles/Vol] 132 mmol/L Low 133-145 [facility] Squamous epithelial cells de tection in urine sediment by light microscopyOrdered By: Gene Duenas on 01-22-2025 Epithelial cells.squamous LM Ql (Urine sed) 0 SEEN /hpf 5-10 [facility] Urinalysis, Completeon 01-22 AMORPHOUS 1+ Normal [facility] Comment on above: Order Comment: TREVOR TER SPECIMEN Performed By: #### M 100.2200, L400.0001 ####[facility] [address] [place], [address] WBC 0-5 SEEN Normal 0-5 [facility] Comment on above: Order Comment: TREVOR TER SPECIMEN Performed By: #### M 100.2200, L400.0001 ####[facility] [address] [place], [address] BACTERIA 0 SEEN Normal None Seen [facility] Comment on above: Order Comment: TREVOR TER SPECIMEN Performed By: #### M 100.2200, L400.0001 ####[facility] [address] [place], [address] EPI,SQUAMOUS 0 SEEN Normal 5-10 [facility] Comment on above: Order Comment: TREVOR TER SPECIMEN Performed By: #### M 100.2200, L400.0001 ####[facility] [address] [place], [address] Mucus Ql (Urine sed) 0 SEEN Normal [facility] Comment on above: Order Comment: TREVOR TER SPECIMEN Performed By: #### M 100.2200, L400.0001 ####[facility] [address] [place], [address] RBC 0 SEEN Normal 0-5 [facility] Comment on above: Order Comment: TREVOR TER SPECIMEN Performed By: #### M 100.2200, L400.0001 ####[facility] [address] [place], [address] Urine clarityOrdered By: Fabi Duenas on 01-22-2025 Clarity (U) Clear Clear [facility] Urine color determinationOrd ered By: Gene Duenas on 01-22-2025 Color (U) Straw Yellow [facility] Urine cultureOrdered By: Fabi Duenas on 01-22-2025 Bacteria identified Cx Nom (U) Meth. resistant Staph. aureus Abnormal [facility] Urine glucose detectionOrder ed By: Gene Duenas on 01-22-2025 Glucose Ql (U) Normal mg/dl Normal [facility] Urine leukocyte esterase det ection by dipstickOrdered By: Gene Duenas on 01-22-2025 Leukocyte esterase Test strip Ql (U) 500 /ul High Negative [facility] Urine pHOrdered By: Gene davidson on 01-22-2025 pH (U) 6.5 [pH] 5.0 - 8.0 [facility] Urine protein measurement (m ass/volume)Ordered By: Gene Duenas on 01-22-2025 Protein (U) [Mass/Vol] 19.3 mg/dL High 0.0-12.0 [facility] Urine protein/creatinine mas s ratioOrdered By: Gene Duenas on 01-22-2025 Protein/Creatinine (U) [Mass ratio] 202 mg/g CRE High 0-200 [facility] Urine sediment bacteria coun t by microscopy (number/high power field)Ordered By: Gene Duenas on 01-22-2025 Bacteria LM.HPF (Urine sed) [#/Area] 0 /[HPF] None Seen [facility] Urine specific gravity measu rementOrdered By: Gene Duenas on 01-22-2025 Specific gravity (U) [Rel density] 1.010 1.002-1.030 [facility] Urine urobilinogen measureme ntOrdered By: Gene Duenas on 01-22-2025 Urobilinogen Ql (U) Normal mg/dl Normal [facility] White blood cell countOrdere d By: Gene Duenas on 01-22-2025 White blood cell count 0-5 SEEN /hpf 0-5 [facility] 12 Lead EKGon 01-19-2025 [address] [facility] 36on 01-19-2025 36 Returned the call to alf. Spoke with nurse Gorman. Will send fax documents of pt history and discharge information from [facility]. Scheduled new patient appt 01/22/25 10:00 AM w/Rosita for *hosp follow up [facility]/urinary retention/gill removal/voiding trial* Per Vita the patient failed one VT while in hospital unclear of date possibly 01/13/25. [facility] 36 Name of Caller: Obi Contact Reason for Appointment: Obi called in to get patient established for urinary retention and not being able to remove gill. Please be advised Office Name: [facility] Anion gap in Serum or Plasma Ordered By: Gene Duenas on 01-19-2025 Anion gap [Moles/Vol] 11 mmol/L 5-15 [facility] BUN/creatinine ratioOrdered By: Gene Duenas on 01-19-2025 Urea nitrogen/Creatinine [Mass ratio] 29.9 mg/mg High 10-20 [facility] Basic Metabolic Profile (BMP )on 01-19-2025 BUN/CRE 29.9 RATIO High 10-20 [facility] Comment on above: Order Comment: .1 Performed By: #### L 500.2500, L100.0500 ####[facility] [address] [place], [address] Calcium [Mass/Vol] 9.1 mg/dL Normal 7.6-11.0 [facility] Comment on above: Order Comment: .1 Performed By: #### L 500.2500, L100.0500 ####[facility] [address] [place], [address] Chloride [Moles/Vol] 103 mmol/L Normal 98-108 [facility] Comment on above: Order Comment: .1 Performed By: #### L 500.2500, L100.0500 ####[facility] [address] [place], [address] CO2 [Moles/Vol] 22.7 mmol/L Normal 21.0-32.0 [facility] Comment on above: Order Comment: 202.1 Performed By: #### L 500.2500, L100.0500 ####[facility] [address] [place], [address] Creatinine [Mass/Vol] 0.65 mg/dL Low 0.70-1.20 [facility] Comment on above: Order Comment: .1 Performed By: #### L 500.2500, L100.0500 ####[facility] [address] [place], [address] GAP 11 Normal 5-15 [facility] Comment on above: Order Comment: . Performed By: #### L 500.2500, L100.0500 ####[facility] [address] [place], [address] GFR/1.73 sq M.predicted among non-blacks MDRD (S/P/Bld) [Vol rate/Area] 88 mL/min/{1.73_m2} Normal >60 [facility] Comment on above: Order Comment: . Result Comment: mL/m in/1.73m2 CKD-EPI Creatinine Equation (2020) Performed By: #### L 500.2500, L100.0500 ####[facility] [address] [place], [address] Glucose [Mass/Vol] 97 mg/dL Normal 70-99 [facility] Comment on above: Order Comment: . Performed By: #### L 500.2500, L100.0500 ####[facility] [address] [place], [address] Potassium [Moles/Vol] 3.9 mmol/L Normal 3.3-5.1 [facility] Comment on above: Order Comment: . Performed By: #### L 500.2500, L100.0500 ####[facility] [address] [place], [address] Sodium [Moles/Vol] 136 mmol/L Normal 133-145 [facility] Comment on above: Order Comment: . Performed By: #### L 500.2500, L100.0500 ####[facility] [address] [place], [address] Urea nitrogen [Mass/Vol] 20 mg/dL High 4-19 [facility] Comment on above: Order Comment: . Performed By: #### L 500.2500, L100.0500 ####[facility] [address] [place], [address] CBC-Complete Blood Cnt No Di ffon 01-19-2025 Erythrocyte distribution width (RBC) [Ratio] 13.3 % Normal 11.6-14.6 [facility] Comment on above: Order Comment: .1 Performed By: #### L 500.2500, L100.0500 ####[facility] [address] [place], [address] Hematocrit (Bld) [Volume fraction] 35.6 % Low 37-47 [facility] Comment on above: Order Comment: . Performed By: #### L 500.2500, L100.0500 ####[facility] [address] [place], [address] Hemoglobin (Bld) [Mass/Vol] 11.7 g/dL Low 12.0-15.0 [facility] Comment on above: Order Comment: . Performed By: #### L 500.2500, L100.0500 ####[facility] [address] [place], [address] MCH (RBC) [Entitic mass] 29.8 pg Normal 27.0-32.0 [facility] Comment on above: Order Comment: . Performed By: #### L 500.2500, L100.0500 ####[facility] [address] [place], [address] MCHC (RBC) [Mass/Vol] 32.9 g/dL Normal 32-36 [facility] Comment on above: Order Comment: . Performed By: #### L 500.2500, L100.0500 ####[facility] [address] [place], [address] MCV (RBC) [Entitic vol] 90.8 fL Normal 81-99 [facility] Comment on above: Order Comment: .1 Performed By: #### L 500.2500, L100.0500 ####[facility] [address] [place], [address] Platelet mean volume (Bld) [Entitic vol] 9.7 fL Normal 6.2-12.0 [facility] Comment on above: Order Comment: . Performed By: #### L 500.2500, L100.0500 ####[facility] [address] [place], [address] Platelets (Bld) [#/Vol] 318 10*3/uL Normal 150-450 [facility] Comment on above: Order Comment: . Performed By: #### L 500.2500, L100.0500 ####[facility] [address] [place], [address] RBC (Bld) [#/Vol] 3.92 10*6/uL Low 4.2-5.4 [facility] Comment on above: Order Comment: . Performed By: #### L 500.2500, L100.0500 ####[facility] [address] [place], [address] RDW SD 44.8 fl High 35.1-43.9 [facility] Comment on above: Order Comment: . Performed By: #### L 500.2500, L100.0500 ####[facility] [address] [place], [address] WBC (Bld) [#/Vol] 6.5 10*3/uL Normal 4.4-11.0 [facility] Comment on above: Order Comment: . Performed By: #### L 500.2500, L100.0500 ####[facility] [address] [place], [address] Carbon dioxide, total [Moles /volume] in Central venous bloodOrdered By: Gene Duenas on 01-19-2025 CO2 [Moles/Vol] 22.7 mmol/L 21.0-32.0 [facility] Chloride assayOrdered By: Tatum on 01-19-2025 Chloride [Moles/Vol] 103 mmol/L 98-[facility] Erythrocyte distribution wid th ratioOrdered By: Gene Duenas on 01-19-2025 Erythrocyte distribution width (RBC) [Ratio] 13.3 % 11.6-14.6 [facility] Erythrocyte distribution wid th standard deviationOrdered By: Gene Duenas on 01-19-2025 Erythrocyte distribution width (RBC) [Ratio] 44.8 fl High 35.1-43.9 [facility] Glomerular filtration rate ( GFR) estimation/1.73 sq m using serum, plasma, or whole bOrdered By: Gene Duenas on 01-19-2025 GFR/1.73 sq M.predicted among non-blacks MDRD (S/P/Bld) [Vol rate/Area] 88 mL/min/{1.73_m2} >60 [facility] Comment on above: mL/min/1.73m2 CKD-EP I Creatinine Equation (2020) Hematocrit Auto (Bld) [Volum e fraction]Ordered By: Gene Duenas on 01-19-2025 Hematocrit (Bld) [Volume fraction] 35.6 % Low 37-47 [facility] Hemoglobin measurementOrdere d By: Gene Duenas on 01-19-2025 Hemoglobin (Bld) [Mass/Vol] 11.7 g/dL Low 12.0-15.0 [facility] MCV (mean corpuscular volume ) determinationOrdered By: Gene Duenas on 01-19-2025 MCV (RBC) [Entitic vol] 90.8 fL 81-99 [facility] Mean corpuscular hemoglobin (MCH) determinationOrdered By: Gene Duenas on 01-19-2025 MCH (RBC) [Entitic mass] 29.8 pg 27.0-32.0 [facility] Mean corpuscular hemoglobin concentration (MCHC) determinationOrdered By: Gene Duenas on 01-19-2025 MCHC (RBC) [Mass/Vol] 32.9 g/dL 32-36 [facility] Mean platelet volume determi nationOrdered By: Gene Duenas on 01-19-2025 Platelet mean volume (Bld) [Entitic vol] 9.7 fL 6.2-12.0 [facility] Platelet countOrdered By: Tatum on 01-19-2025 Platelets (Bld) [#/Vol] 318 10*3/uL 150-450 [facility] Potassium measurement (mass/ volume)Ordered By: Gene Duenas on 01-19-2025 Potassium (Unsp spec) [Mass/Vol] 3.9 mmol/L 3.3-5.1 [facility] RBC Auto (Bld) [#/Vol]Ordere d By: Gene Duenas on 01-19-2025 RBC (Bld) [#/Vol] 3.92 10*6/uL Low 4.2-5.4 [facility] Serum creatinine measurement (mass/volume)Ordered By: Gene Duenas on 01-19-2025 Creatinine [Mass/Vol] 0.65 mg/dL Low 0.70-1.20 [facility] Serum glucose measurement (m ass/volume)Ordered By: Gene Duenas on 01-19-2025 Glucose [Mass/Vol] 97 mg/dL 70-99 [facility] Serum or plasma calcium cindy urement (mass/volume)Ordered By: Gene Duenas on 01-19-2025 Calcium [Mass/Vol] 9.1 mg/dL 7.6-11.0 [facility] Serum or plasma urea nitroge n measurement (mass/volume)Ordered By: Gene Duenas on 01-19-2025 Urea nitrogen [Mass/Vol] 20 mg/dL High 01-10 [facility] Sodium levelOrdered By: Gene Duenas on 01-19-2025 Sodium [Moles/Vol] 136 mmol/L 133-145 [facility] White blood cell (WBC) count Ordered By: Gene Duenas on 01-19-2025 WBC (Bld) [#/Vol] 6.5 10*3/uL 4.4-11.0 [facility] [facility] Basic Metabolic Profile (BMP )on 01-16-2025 BUN Normal 01-10 [facility] Comment on above: Result Comment: Canc elled via OM: Order cancelled - Patient discharged Performed By: #### L 500.2500, L100.0100 ####[facility] [address] [place], [address] BUN/CRE Normal 10-20 [facility] Comment on above: Result Comment: Canc elled via OM: Order cancelled - Patient discharged Performed By: #### L 500.2500, L100.0100 ####[facility] [address] [place], [address] Calcium Normal 7.6-11.0 [facility] Comment on above: Result Comment: Canc elled via OM: Order cancelled - Patient discharged Performed By: #### L 500.2500, L100.0100 ####[facility] [address] [place], [address] CL Normal 98-108 [facility] Comment on above: Result Comment: Canc elled via OM: Order cancelled - Patient discharged Performed By: #### L 500.2500, L100.0100 ####[facility] [address] [place], [address] CO2 Normal 21.0-32.0 [facility] Comment on above: Result Comment: Canc elled via OM: Order cancelled - Patient discharged Performed By: #### L 500.2500, L100.0100 ####[facility] [address] [place], [address] CREAT,SERUM Normal 0.70-1.20 [facility] Comment on above: Result Comment: Canc elled via OM: Order cancelled - Patient discharged Performed By: #### L 500.2500, L100.0100 ####[facility] [address] [place], [address] eGFR Normal >60 [facility] Comment on above: Result Comment: Canc elled via OM: Order cancelled - Patient discharged Performed By: #### L 500.2500, L100.0100 ####[facility] [address] [place], [address] GAP Normal 5-15 [facility] Comment on above: Result Comment: Canc elled via OM: Order cancelled - Patient discharged Performed By: #### L 500.2500, L100.0100 ####[facility] [address] [place], [address] GLU Normal 70-99 [facility] Comment on above: Result Comment: Canc elled via OM: Order cancelled - Patient discharged Performed By: #### L 500.2500, L100.0100 ####[facility] [address] [place], [address] Potassium Normal 3.3-5.1 [facility] Comment on above: Result Comment: Canc elled via OM: Order cancelled - Patient discharged Performed By: #### L 500.2500, L100.0100 ####[facility] [address] [place], [address] Basic Metabolic Profile (BMP) Normal 133-145 [facility] Comment on above: Result Comment: Canc elled via OM: Order cancelled - Patient discharged Performed By: #### L 500.2500, L100.0100 ####[facility] [address] [place], [address] CBC W/Diff, Automatedon 04-2 Absolute Neut Normal 2.0-7.7 [facility] Comment on above: Result Comment: Canc elled via OM: Order cancelled - Patient discharged Performed By: #### L 500.2500, L100.0100 ####[facility] [address] [place], [address] HCT Normal 37-47 [facility] Comment on above: Result Comment: Canc elled via OM: Order cancelled - Patient discharged Performed By: #### L 500.2500, L100.0100 ####[facility] [address] [place], [address] HGB Normal 12.0-15.0 [facility] Comment on above: Result Comment: Canc elled via OM: Order cancelled - Patient discharged Performed By: #### L 500.2500, L100.0100 ####[facility] [address] [place], [address] MCH Normal 27.0-32.0 [facility] Comment on above: Result Comment: Canc elled via OM: Order cancelled - Patient discharged Performed By: #### L 500.2500, L100.0100 ####[facility] [address] [place], [address] MCHC Normal 32-36 [facility] Comment on above: Result Comment: Canc elled via OM: Order cancelled - Patient discharged Performed By: #### L 500.2500, L100.0100 ####[facility] [address] [place], [address] MCV Normal 81-99 [facility] Comment on above: Result Comment: Canc elled via OM: Order cancelled - Patient discharged Performed By: #### L 500.2500, L100.0100 ####[facility] [address] [place], [address] NEUT% Normal 47-70 [facility] Comment on above: Result Comment: Canc elled via OM: Order cancelled - Patient discharged Performed By: #### L 500.2500, L100.0100 ####[facility] [address] [place], [address] PLT Normal 150-450 [facility] Comment on above: Result Comment: Canc elled via OM: Order cancelled - Patient discharged Performed By: #### L 500.2500, L100.0100 ####[facility] [address] [place], [address] RBC Normal 4.2-5.4 [facility] Comment on above: Result Comment: Canc elled via OM: Order cancelled - Patient discharged Performed By: #### L 500.2500, L100.0100 ####[facility] [address] [place], [address] RDW CV Normal 11.6-14.6 [facility] Comment on above: Result Comment: Canc elled via OM: Order cancelled - Patient discharged Performed By: #### L 500.2500, L100.0100 ####[facility] [address] [place], [address] RDW SD Normal 35.1-43.9 [facility] Comment on above: Result Comment: Canc elled via OM: Order cancelled - Patient discharged Performed By: #### L 500.2500, L100.0100 ####[facility] [address] [place], [address] WBC Normal 4.4-11.0 [facility] Comment on above: Result Comment: Canc elled via OM: Order cancelled - Patient discharged Performed By: #### L 500.2500, L100.0100 ####[facility] [address] [place], [address] Absolute lymphocyte countOrd ered By: Juan Diego Marks on 01-11-2025 Lymphocytes Auto (Unsp spec) [#/Vol] 1.28 10*3/uL 0.83-4.51 [facility] Absolute neutrophil countOrd ered By: Juan Diego Marks on 01-11-2025 Neutrophils (Bld) [#/Vol] 2.0 10*3/uL 2.0-7.7 [facility] Anion gap in Serum or Plasma Ordered By: Juan Diego Marks on 01-11-2025 Anion gap [Moles/Vol] 10 mmol/L 5-15 [facility] Automated lymphocyte count a s percentage of total leukocytesOrdered By: Juan Diego Marks on 01-11-2025 Lymphocytes/100 WBC Auto (Unsp spec) 32.5 % 19-41 [facility] BUN/creatinine ratioOrdered By: Juan Diego Kendrick on 01-11-2025 Urea nitrogen/Creatinine [Mass ratio] 24.5 mg/mg High - [facility] Basic Metabolic Profile (BMP )on 01-11-2025 BUN/CRE 24.5 RATIO High - [facility] Comment on above: Performed By: #### L 500.2500, L100.0100 ####[facility] [address] [place], [address] Calcium [Mass/Vol] 9.3 mg/dL Normal 7.6-11.0 [facility] Comment on above: Performed By: #### L 500.2500, L100.0100 ####[facility] [address] [place], [address] Chloride [Moles/Vol] 104 mmol/L Normal 98-108 [facility] Comment on above: Performed By: #### L 500.2500, L100.0100 ####[facility] [address] [place], [address] CO2 [Moles/Vol] 26.4 mmol/L Normal 21.0-32.0 [facility] Comment on above: Performed By: #### L 500.2500, L100.0100 ####[facility] [address] [place], [address] Creatinine [Mass/Vol] 0.62 mg/dL Low 0.70-1.20 [facility] Comment on above: Performed By: #### L 500.2500, L100.0100 ####[facility] [address] [place], [address] ECRCL 58.45 ml/min Normal 50-250 [facility] Comment on above: Performed By: #### L 500.2500, L100.0100 ####[facility] [address] [place], [address] GAP 10 Normal 5-15 [facility] Comment on above: Performed By: #### L 500.2500, L100.0100 ####[facility] [address] [place], [address] GFR/1.73 sq M.predicted among non-blacks MDRD (S/P/Bld) [Vol rate/Area] 89 mL/min/{1.73_m2} Normal >60 [facility] Comment on above: Result Comment: mL/m in/1.73m2 CKD-EPI Creatinine Equation (2020) Performed By: #### L 500.2500, L100.0100 ####[facility] [address] [place], [address] Glucose [Mass/Vol] 93 mg/dL Normal 70-99 [facility] Comment on above: Performed By: #### L 500.2500, L100.0100 ####[facility] [address] [place], [address] Potassium [Moles/Vol] 4.0 mmol/L Normal 3.3-5.1 [facility] Comment on above: Performed By: #### L 500.2500, L100.0100 ####[facility] [address] [place], [address] Sodium [Moles/Vol] 141 mmol/L Normal 133-145 [facility] Comment on above: Performed By: #### L 500.2500, L100.0100 ####[facility] [address] [place], [address] Urea nitrogen [Mass/Vol] 15 mg/dL Normal 4-19 [facility] Comment on above: Performed By: #### L 500.2500, L100.0100 ####[facility] [address] [place], [address] Basophil percentageOrdered B y: Juan Diego Marks on 01-11-2025 Basophils/100 WBC (Bld) 0.8 % 0-1 [facility] CBC W/Diff, Automatedon 04-2 0-2025 Absolute Lymph 1.28 X10 3/uL Normal 0.83-4.51 [facility] Comment on above: Performed By: #### L 500.2500, L100.0100 ####[facility] [address] [place], [address] Absolute Neut 2.0 X10 3/uL Normal 2.0-7.7 [facility] Comment on above: Performed By: #### L 500.2500, L100.0100 ####[facility] [address] [place], [address] Basophils/100 WBC (Bld) 0.8 % Normal 0-1 [facility] Comment on above: Performed By: #### L 500.2500, L100.0100 ####[facility] [address] [place], [address] Eosinophils/100 WBC (Bld) 7.6 % High 0-5 [facility] Comment on above: Performed By: #### L 500.2500, L100.0100 ####[facility] [address] [place], [address] Erythrocyte distribution width (RBC) [Ratio] 14.0 % Normal 11.6-14.6 [facility] Comment on above: Performed By: #### L 500.2500, L100.0100 ####[facility] [address] [place], [address] Hematocrit (Bld) [Volume fraction] 37.6 % Normal 37-47 [facility] Comment on above: Performed By: #### L 500.2500, L100.0100 ####[facility] [address] [place], [address] Hemoglobin (Bld) [Mass/Vol] 12.0 g/dL Normal 12.0-15.0 [facility] Comment on above: Performed By: #### L 500.2500, L100.0100 ####[facility] [address] [place], [address] IG% 0.300 Normal 0.0-0.9 [facility] Comment on above: Result Comment: IG% - Immature Granulocytes (promyelocytes, myelocytes andmetamyelocytes) > 1% indicates that a LEFT SHIFT is Present. Performed By: #### L 500.2500, L100.0100 ####[facility] [address] [place], [address] Lymphocytes/100 WBC (Bld) 32.5 % Normal 19-41 [facility] Comment on above: Performed By: #### L 500.2500, L100.0100 ####[facility] [address] [place], [address] MCH (RBC) [Entitic mass] 29.9 pg Normal 27.0-32.0 [facility] Comment on above: Performed By: #### L 500.2500, L100.0100 ####[facility] [address] [place], [address] MCHC (RBC) [Mass/Vol] 31.9 g/dL Low 32-36 [facility] Comment on above: Performed By: #### L 500.2500, L100.0100 ####[facility] [address] [place], [address] MCV (RBC) [Entitic vol] 93.5 fL Normal 81-99 [facility] Comment on above: Performed By: #### L 500.2500, L100.0100 ####[facility] [address] [place], [address] Monocytes/100 WBC (Bld) 9.1 % Normal 0-10 [facility] Comment on above: Performed By: #### L 500.2500, L100.0100 ####[facility] [address] [place], [address] Neutrophils/100 WBC (Bld) 49.7 % Normal 47-70 [facility] Comment on above: Performed By: #### L 500.2500, L100.0100 ####[facility] [address] [place], [address] Nucleated RBC (Bld) [#/Vol] 0 10*3/uL Normal 0-5 [facility] Comment on above: Performed By: #### L 500.2500, L100.0100 ####[facility] [address] [place], [address] Platelet mean volume (Bld) [Entitic vol] 9.4 fL Normal 6.2-12.0 [facility] Comment on above: Performed By: #### L 500.2500, L100.0100 ####[facility] [address] [place], [address] Platelets (Bld) [#/Vol] 336 10*3/uL Normal 150-450 [facility] Comment on above: Performed By: #### L 500.2500, L100.0100 ####[facility] [address] [place], [address] RBC (Bld) [#/Vol] 4.02 10*6/uL Low 4.2-5.4 [facility] Comment on above: Performed By: #### L 500.2500, L100.0100 ####[facility] [address] [place], [address] RDW SD 48.6 fl High 35.1-43.9 [facility] Comment on above: Performed By: #### L 500.2500, L100.0100 ####[facility] [address] [place], [address] WBC (Bld) [#/Vol] 3.9 10*3/uL Low 4.4-11.0 [facility] Comment on above: Performed By: #### L 500.2500, L100.0100 ####[facility] [address] [place], [address] Carbon dioxide, total [Moles /volume] in Central venous bloodOrdered By: Juan Diego Marks on 01-11-2025 CO2 [Moles/Vol] 26.4 mmol/L 21.0-32.0 [facility] Chloride assayOrdered By: Willard Marks on 01-11-2025 Chloride [Moles/Vol] 104 mmol/L 98-108 [facility] Eosinophil percentageOrdered By: Juan Diego Marks on 01-11-2025 Eosinophils/100 WBC (Bld) 7.6 % High 0-5 [facility] Erythrocyte distribution wid th ratioOrdered By: Juan Diego Marks on 01-11-2025 Erythrocyte distribution width (RBC) [Ratio] 14.0 % 11.6-14.6 [facility] Erythrocyte distribution wid th standard deviationOrdered By: Juan Diego Marks 01-11-2025 Erythrocyte distribution width (RBC) [Ratio] 48.6 fl High 35.1-43.9 [facility] Glomerular filtration rate ( GFR) estimation/1.73 sq m using serum, plasma, or whole bOrdered By: Juan Diego Marks on 01-11-2025 GFR/1.73 sq M.predicted among non-blacks MDRD (S/P/Bld) [Vol rate/Area] 89 mL/min/{1.73_m2} >60 [facility] Comment on above: mL/min/1.73m2 CKD-EP I Creatinine Equation (2020) Hematocrit Auto (Bld) [Volum e fraction]Ordered By: Juan Diego Marks 01-11-2025 Hematocrit (Bld) [Volume fraction] 37.6 % 37-47 [facility] Hemoglobin measurementOrdere d By: Juan Diego Marks 01-11-2025 Hemoglobin (Bld) [Mass/Vol] 12.0 g/dL 12.0-15.0 [facility] Immature granulocytes/100 WB C Auto (Bld)Ordered By: Juan Diego Marks 01-11-2025 Immature granulocytes/100 WBC (Bld) 0.300 % 0.0-0.9 [facility] Comment on above: IG% - Immature Granu locytes (promyelocytes, myelocytes and metamyelocytes) > 1% indicates that a LEFT SHIFT is Present. MCV (mean corpuscular volume ) determinationOrdered By: Juan Diego Marks on 01-11-2025 MCV (RBC) [Entitic vol] 93.5 fL 81-99 [facility] Mean corpuscular hemoglobin (MCH) determinationOrdered By: Juan Diego Marks on 01-11-2025 MCH (RBC) [Entitic mass] 29.9 pg 27.0-32.0 [facility] Mean corpuscular hemoglobin concentration (MCHC) determinationOrdered By: Juan Diego Marks on 01-11-2025 MCHC (RBC) [Mass/Vol] 31.9 g/dL Low 32-36 [facility] Mean platelet volume determi nationOrdered By: Juan Diego Marks on 01-11-2025 Platelet mean volume (Bld) [Entitic vol] 9.4 fL 6.2-12.0 [facility] Monocyte percentageOrdered B y: Juan Diego Marks on 01-11-2025 Monocytes/100 WBC (Bld) 9.1 % 0-10 [facility] Neutrophil percentageOrdered By: Juan Diego Marks on 01-11-2025 Neutrophils/100 WBC (Bld) 49.7 % 47-70 [facility] Nucleated red blood cell per centageOrdered By: Juan Diego Marks on 01-11-2025 Nucleated RBC/100 WBC (Bld) [Ratio] 0 % 0-5 [facility] Platelet countOrdered By: Willard Marks on 01-11-2025 Platelets (Bld) [#/Vol] 336 10*3/uL 150-450 [facility] Potassium measurement (mass/ volume)Ordered By: Juan Diego Marks on 01-11-2025 Potassium (Unsp spec) [Mass/Vol] 4.0 mmol/L 3.3-5.1 [facility] RBC Auto (Bld) [#/Vol]Ordere d By: Juan Diego Marks on 01-11-2025 RBC (Bld) [#/Vol] 4.02 10*6/uL Low 4.2-5.4 [facility] Serum creatinine measurement (mass/volume)Ordered By: Juan Diego Marks on 01-11-2025 Creatinine [Mass/Vol] 0.62 mg/dL Low 0.70-1.20 [facility] Serum glucose measurement (m ass/volume)Ordered By: Juan Diego Marks on 01-11-2025 Glucose [Mass/Vol] 93 mg/dL 70-99 [facility] Serum or plasma calcium cindy urement (mass/volume)Ordered By: Juan Diego Marks on 01-11-2025 Calcium [Mass/Vol] 9.3 mg/dL 7.6-11.0 [facility] Serum or plasma urea nitroge n measurement (mass/volume)Ordered By: Juan Diego Marks on 01-11-2025 Urea nitrogen [Mass/Vol] 15 mg/dL 4-19 [facility] Sodium levelOrdered By: Jua nDiego Marks on 01-11-2025 Sodium [Moles/Vol] 141 mmol/L 133-145 [facility] White blood cell (WBC) count Ordered By: Juan Diego Marks on 01-11-2025 WBC (Bld) [#/Vol] 3.9 10*3/uL Low 4.4-11.0 [facility] Basic Metabolic Profile (BMP )on 01-09-2025 BUN/CRE 20.7 RATIO High 10- [facility] Comment on above: Performed By: #### L 100.0100, L500.2500 ####[facility] [address] [place], [address] Calcium [Mass/Vol] 9.0 mg/dL Normal 7.6-11.0 [facility] Comment on above: Performed By: #### L 100.0100, L500.2500 ####[facility] [address] [place], [address] Chloride [Moles/Vol] 104 mmol/L Normal 98-108 [facility] Comment on above: Performed By: #### L 100.0100, L500.2500 ####[facility] [address] [place], [address] CO2 [Moles/Vol] 23.2 mmol/L Normal 21.0-32.0 [facility] Comment on above: Performed By: #### L 100.0100, L500.2500 ####[facility] [address] [place], [address] Creatinine [Mass/Vol] 0.74 mg/dL Normal 0.70-1.20 [facility] Comment on above: Performed By: #### L 100.0100, L500.2500 ####[facility] [address] [place], [address] ECRCL 58.45 ml/min Normal 50-250 [facility] Comment on above: Performed By: #### L 100.0100, L500.2500 ####[facility] [address] [place], [address] GAP 11 Normal 5-15 [facility] Comment on above: Performed By: #### L 100.0100, L500.2500 ####[facility] [address] [place], [address] GFR/1.73 sq M.predicted among non-blacks MDRD (S/P/Bld) [Vol rate/Area] 82 mL/min/{1.73_m2} Normal >60 [facility] Comment on above: Result Comment: mL/m in/1.73m2 CKD-EPI Creatinine Equation (2020) Performed By: #### L 100.0100, L500.2500 ####[facility] [address] [place], [address] Glucose [Mass/Vol] 96 mg/dL Normal 70-99 [facility] Comment on above: Performed By: #### L 100.0100, L500.2500 ####[facility] [address] [place], [address] Potassium [Moles/Vol] 3.7 mmol/L Normal 3.3-5.1 [facility] Comment on above: Performed By: #### L 100.0100, L500.2500 ####[facility] [address] [place], [address] Sodium [Moles/Vol] 137 mmol/L Normal 133-145 [facility] Comment on above: Performed By: #### L 100.0100, L500.2500 ####[facility] [address] [place], [address] Urea nitrogen [Mass/Vol] 15 mg/dL Normal 4-19 [facility] Comment on above: Performed By: #### L 100.0100, L500.2500 ####[facility] [address] [place], [address] CBC W/Diff, Automatedon 12-23 Absolute Lymph 1.17 X10 3/uL Normal 0.83-4.51 [facility] Comment on above: Performed By: #### L 100.0100, L500.2500 ####[facility] [address] [place], [address] Absolute Neut 2.5 X10 3/uL Normal 2.0-7.7 [facility] Comment on above: Performed By: #### L 100.0100, L500.2500 ####[facility] [address] [place], [address] Basophils/100 WBC (Bld) 0.9 % Normal 0-1 [facility] Comment on above: Performed By: #### L 100.0100, L500.2500 ####[facility] [address] [place], [address] Eosinophils/100 WBC (Bld) 7.0 % High 0-5 [facility] Comment on above: Performed By: #### L 100.0100, L500.2500 ####[facility] [address] [place], [address] Erythrocyte distribution width (RBC) [Ratio] 14.1 % Normal 11.6-14.6 [facility] Comment on above: Performed By: #### L 100.0100, L500.2500 ####[facility] [address] [place], [address] Hematocrit (Bld) [Volume fraction] 33.1 % Low 37-47 [facility] Comment on above: Performed By: #### L 100.0100, L500.2500 ####[facility] [address] [place], [address] Hemoglobin (Bld) [Mass/Vol] 10.9 g/dL Low 12.0-15.0 [facility] Comment on above: Performed By: #### L 100.0100, L500.2500 ####[facility] [address] [place], [address] IG% 0.400 Normal 0.0-0.9 [facility] Comment on above: Result Comment: IG% - Immature Granulocytes (promyelocytes, myelocytes andmetamyelocytes) > 1% indicates that a LEFT SHIFT is Present. Performed By: #### L 100.0100, L500.2500 ####[facility] [address] [place], [address] Lymphocytes/100 WBC (Bld) 26.2 % Normal 19-41 [facility] Comment on above: Performed By: #### L 100.0100, L500.2500 ####[facility] [address] [place], [address] MCH (RBC) [Entitic mass] 30.1 pg Normal 27.0-32.0 [facility] Comment on above: Performed By: #### L 100.0100, L500.2500 ####[facility] [address] [place], [address] MCHC (RBC) [Mass/Vol] 32.9 g/dL Normal 32-36 [facility] Comment on above: Performed By: #### L 100.0100, L500.2500 ####[facility] [address] [place], [address] MCV (RBC) [Entitic vol] 91.4 fL Normal 81-99 [facility] Comment on above: Performed By: #### L 100.0100, L500.2500 ####[facility] [address] [place], [address] Monocytes/100 WBC (Bld) 10.5 % High 0-10 [facility] Comment on above: Performed By: #### L 100.0100, L500.2500 ####[facility] [address] [place], [address] Neutrophils/100 WBC (Bld) 55.0 % Normal 47-70 [facility] Comment on above: Performed By: #### L 100.0100, L500.2500 ####[facility] [address] [place], [address] Nucleated RBC (Bld) [#/Vol] 0 10*3/uL Normal 0-5 [facility] Comment on above: Performed By: #### L 100.0100, L500.2500 ####[facility] [address] [place], [address] Platelet mean volume (Bld) [Entitic vol] 9.4 fL Normal 6.2-12.0 [facility] Comment on above: Performed By: #### L 100.0100, L500.2500 ####[facility] [address] [place], [address] Platelets (Bld) [#/Vol] 318 10*3/uL Normal 150-450 [facility] Comment on above: Performed By: #### L 100.0100, L500.2500 ####[facility] [address] [place], [address] RBC (Bld) [#/Vol] 3.62 10*6/uL Low 4.2-5.4 [facility] Comment on above: Performed By: #### L 100.0100, L500.2500 ####[facility] [address] [place], [address] RDW SD 47.6 fl High 35.1-43.9 [facility] Comment on above: Performed By: #### L 100.0100, L500.2500 ####[facility] [address] [place], [address] WBC (Bld) [#/Vol] 4.5 10*3/uL Normal 4.4-11.0 [facility] Comment on above: Performed By: #### L 100.0100, L500.2500 ####[facility] [address] [place], [address] Knee 1 or 2 Viewson 01-06-20 25 Knee 1 or [address] [facility] Basic Metabolic Profile (BMP )on 01-02-2025 BUN/CRE 29.7 RATIO High 10-20 [facility] Comment on above: Performed By: #### L 500.2500, L100.0100 ####[facility] [address] [place], [address] Calcium [Mass/Vol] 9.1 mg/dL Normal 7.6-11.0 [facility] Comment on above: Performed By: #### L 500.2500, L100.0100 ####[facility] [address] [place], [address] Chloride [Moles/Vol] 104 mmol/L Normal 98-108 [facility] Comment on above: Performed By: #### L 500.2500, L100.0100 ####[facility] [address] [place], [address] CO2 [Moles/Vol] 25.7 mmol/L Normal 21.0-32.0 [facility] Comment on above: Performed By: #### L 500.2500, L100.0100 ####[facility] [address] [place], [address] Creatinine [Mass/Vol] 0.74 mg/dL Normal 0.70-1.20 [facility] Comment on above: Performed By: #### L 500.2500, L100.0100 ####[facility] [address] [place], [address] ECRCL 59.70 ml/min Normal 50-250 [facility] Comment on above: Performed By: #### L 500.2500, L100.0100 ####[facility] [address] [place], [address] GAP 9 Normal 5-15 [facility] Comment on above: Performed By: #### L 500.2499, L100.0100 ####[facility] [address] [place], [address] GFR/1.73 sq M.predicted among non-blacks MDRD (S/P/Bld) [Vol rate/Area] 82 mL/min/{1.73_m2} Normal >60 [facility] Comment on above: Result Comment: mL/m in/1.73m2 CKD-EPI Creatinine Equation (2020) Performed By: #### L 500.2500, L100.0100 ####[facility] [address] [place], [address] Glucose [Mass/Vol] 94 mg/dL Normal 70-99 [facility] Comment on above: Performed By: #### L 500.2500, L100.0100 ####[facility] [address] [place], [address] Potassium [Moles/Vol] 4.2 mmol/L Normal 3.3-5.1 [facility] Comment on above: Performed By: #### L 500.2500, L100.0100 ####[facility] [address] [place], [address] Sodium [Moles/Vol] 138 mmol/L Normal 133-145 [facility] Comment on above: Performed By: #### L 500.2500, L100.0100 ####[facility] [address] [place], [address] Urea nitrogen [Mass/Vol] 22 mg/dL High 4-19 [facility] Comment on above: Performed By: #### L 500.2500, L100.0100 ####[facility] [address] [place], [address] CBC W/Diff, Automatedon 12-23 Absolute Lymph 1.20 X10 3/uL Normal 0.83-4.51 [facility] Comment on above: Performed By: #### L 500.2500, L100.0100 ####[facility] [address] [place], [address] Absolute Neut 2.0 X10 3/uL Normal 2.0-7.7 [facility] Comment on above: Performed By: #### L 500.2500, L100.0100 ####[facility] [address] [place], [address] Basophils/100 WBC (Bld) 1.0 % Normal 0-1 [facility] Comment on above: Performed By: #### L 500.2500, L100.0100 ####[facility] [address] [place], [address] Eosinophils/100 WBC (Bld) 10.2 % High 0-5 [facility] Comment on above: Performed By: #### L 500.2500, L100.0100 ####[facility] [address] [place], [address] Erythrocyte distribution width (RBC) [Ratio] 14.6 % Normal 11.6-14.6 [facility] Comment on above: Performed By: #### L 500.2500, L100.0100 ####[facility] [address] [place], [address] Hematocrit (Bld) [Volume fraction] 32.1 % Low 37-47 [facility] Comment on above: Performed By: #### L 500.2500, L100.0100 ####[facility] [address] [place], [address] Hemoglobin (Bld) [Mass/Vol] 10.3 g/dL Low 12.0-15.0 [facility] Comment on above: Performed By: #### L 500.2500, L100.0100 ####[facility] [address] [place], [address] IG% 0.200 Normal 0.0-0.9 [facility] Comment on above: Result Comment: IG% - Immature Granulocytes (promyelocytes, myelocytes andmetamyelocytes) > 1% indicates that a LEFT SHIFT is Present. Performed By: #### L 500.2500, L100.0100 ####[facility] [address] [place], [address] Lymphocytes/100 WBC (Bld) 29.1 % Normal 19-41 [facility] Comment on above: Performed By: #### L 500.2500, L100.0100 ####[facility] [address] [place], [address] MCH (RBC) [Entitic mass] 29.9 pg Normal 27.0-32.0 [facility] Comment on above: Performed By: #### L 500.2500, L100.0100 ####[facility] [address] [place], [address] MCHC (RBC) [Mass/Vol] 32.1 g/dL Normal 32-36 [facility] Comment on above: Performed By: #### L 500.2500, L100.0100 ####[facility] [address] [place], [address] MCV (RBC) [Entitic vol] 93.3 fL Normal 81-99 [facility] Comment on above: Performed By: #### L 500.2500, L100.0100 ####[facility] [address] [place], [address] Monocytes/100 WBC (Bld) 10.0 % Normal 0-10 [facility] Comment on above: Performed By: #### L 500.2500, L100.0100 ####[facility] [address] [place], [address] Neutrophils/100 WBC (Bld) 49.5 % Normal 47-70 [facility] Comment on above: Performed By: #### L 500.2500, L100.0100 ####[facility] [address] [place], [address] Nucleated RBC (Bld) [#/Vol] 0 10*3/uL Normal 0-5 [facility] Comment on above: Performed By: #### L 500.2500, L100.0100 ####[facility] [address] [place], [address] Platelet mean volume (Bld) [Entitic vol] 9.4 fL Normal 6.2-12.0 [facility] Comment on above: Performed By: #### L 500.2500, L100.0100 ####[facility] [address] [place], [address] Platelets (Bld) [#/Vol] 359 10*3/uL Normal 150-450 [facility] Comment on above: Performed By: #### L 500.2500, L100.0100 ####[facility] [address] [place], [address] RBC (Bld) [#/Vol] 3.44 10*6/uL Low 4.2-5.4 [facility] Comment on above: Performed By: #### L 500.2500, L100.0100 ####[facility] [address] [place], [address] RDW SD 50.0 fl High 35.1-43.9 [facility] Comment on above: Performed By: #### L 500.2500, L100.0100 ####[facility] [address] [place], [address] WBC (Bld) [#/Vol] 4.1 10*3/uL Low 4.4-11.0 [facility] Comment on above: Performed By: #### L 500.2500, L100.0100 ####[facility] [address] [place], [address] Urine Cultureon 01-01-[address] [facility] Comment on above: Performed By: #### M 100.2200, L400.0001 ####[facility] [address] [place], [address] Bilirubin Test strip Ql (U)O rdered By: Juan Diego Marks on 12-30-2024 Bilirubin Ql (U) Negative Negative [facility] Ketones Test strip Ql (U)Ord ered By: Juan Diego Marks on 12-30-2024 Ketones Ql (U) Negative Negative [facility] Microscopic analysis of urin e for red blood cells (RBC)Ordered By: Juan Diego Marks on 12-30-2024 Microscopic analysis of urine for red blood cells (RBC) 0 SEEN /hpf 0-5 [facility] Mucus LM Ql (Urine sed)Order ed By: Juan Diego Marks on 12-30-2024 Mucus Ql (Urine sed) 0 SEEN /hpf [facility] Nitrite Test strip Ql (U)Ord ered By: Juan Diego Marks on 12-30-2024 Nitrite Ql (U) Negative Negative [facility] Protein Test strip Ql (U)Ord ered By: Juan Diego Marks on 12-30-2024 Protein Ql (U) 100 mg/dl High Negative [facility] Squamous epithelial cells de tection in urine sediment by light microscopyOrdered By: Juan Diego Marks on 12-30-2024 Epithelial cells.squamous LM Ql (Urine sed) 0 SEEN /hpf 5-10 [facility] Urinalysis, Completeon 12-30 WBC >100 SEEN Normal 0-5 [facility] Comment on above: Order Comment: TREVOR TER SPECIMEN Result Comment: Micr oscopic field is filled. Other elements may beobscured. Performed By: #### M 100.2200, L400.0001 ####[facility] [address] [place], [address] BACTERIA 0 SEEN Normal None Seen [facility] Comment on above: Order Comment: TREVOR TER SPECIMEN Performed By: #### M 100.2200, L400.0001 ####[facility] [address] [place], [address] EPI,SQUAMOUS 0 SEEN Normal 5-10 [facility] Comment on above: Order Comment: TREVOR TER SPECIMEN Performed By: #### M 100.2200, L400.0001 ####[facility] [address] [place], [address] Mucus Ql (Urine sed) 0 SEEN Normal [facility] Comment on above: Order Comment: TREVOR TER SPECIMEN Performed By: #### M 100.2200, L400.0001 ####[facility] [address] [place], [address] RBC 0 SEEN Normal 0-5 [facility] Comment on above: Order Comment: TREVOR TER SPECIMEN Performed By: #### M 100.2200, L400.0001 ####[facility] [address] [place], [address] Urine clarityOrdered By: Juan Diego Marks on 12-30-2024 Clarity (U) Turbid Clear [facility] Comment on above: MucousyPrevious repo rted result: Turbid Edited by: MIKEL on 12/30/24:1306 AMENDED REPORT 12/30/24 1306 CLARITY previously reported as: Turbid Urine color determinationOrd ered By: Juan Diego Marks on 12-30-2024 Color (U) Yellow Yellow [facility] Urine cultureOrdered By: Juan Diego Marks on 12-30-2024 Bacteria identified Cx Nom (U) Klebsiella pneumoniae sp pneum Abnormal [facility] Urine glucose detectionOrder ed By: Juan Diego Marks on 12-30-2024 Glucose Ql (U) Normal mg/dl Normal [facility] Urine leukocyte esterase det ection by dipstickOrdered By: Juan Diego Marks on 12-30-2024 Leukocyte esterase Test strip Ql (U) 500 /ul High Negative [facility] Urine pHOrdered By: Juan Diego Marks on 12-30-2024 pH (U) 7.0 [pH] 5.0 - 8.0 [facility] Urine sediment bacteria coun t by microscopy (number/high power field)Ordered By: Juan Diego Marks on 12-30-2024 Bacteria LM.HPF (Urine sed) [#/Area] 0 /[HPF] None Seen [facility] Urine specific gravity measu rementOrdered By: Juan Diego Marks on 12-30-2024 Specific gravity (U) [Rel density] 1.015 1.002-1.030 [facility] Urine urobilinogen measureme ntOrdered By: Juan Diego Marks on 12-30-2024 Urobilinogen Ql (U) Normal mg/dl Normal [facility] White blood cell countOrdere d By: Juan Diego Marks on 12-30-2024 White blood cell count >100 SEEN /hpf 0-5 [facility] Comment on above: Microscopic field is filled. Other elements may be obscured. Knee 1 or 2 Viewson 12-30-19 Knee 1 or [address] [facility] Basic Metabolic Profile (BMP )on 12-26-2024 BUN/CRE 16.4 RATIO Normal - [facility] Comment on above: Result Comment: AMENDED REPORT 12/26/24 4363 BUN/CRE previously reported as: 16.2 RATIO Performed By: #### L 100.0100, L500.2500 ####[facility] [address] [place], [address] CO2 [Moles/Vol] 19.5 mmol/L Low 21.0-32.0 [facility] Comment on above: Result Comment: AMENDED REPORT 12/26/241352 CO2 previously reported as: 21.2 mmol/L Performed By: #### L 100.0100, L500.2500 ####[facility] [address] [place], [address] Creatinine [Mass/Vol] 1.16 mg/dL Normal 0.70-1.20 [facility] Comment on above: Result Comment: AMENDED REPORT 12/26/241352 CREAT,SERUM previously reported as: 1.17 mg/dL Performed By: #### L 100.0100, L500.2500 ####[facility] [address] [place], [address] ECRCL 41.79 ml/min Low 50-250 [facility] Comment on above: Result Comment: AMENDED REPORT 12/26/241352 Estimated CRCL previously reported as: 41.43 L ml/min Performed By: #### L 100.0100, L500.2500 ####[facility] [address] [place], [address] GAP 16 High 5-15 [facility] Comment on above: Result Comment: AMENDED REPORT 12/26/241352 GAP previously reported as: 14 Performed By: #### L 100.0100, L500.2500 ####[facility] [address] [place], [address] Glucose [Mass/Vol] 118 mg/dL High 70-99 [facility] Comment on above: Result Comment: AMENDED REPORT 12/26/241352 GLU previously reported as: 119 H mg/dL Performed By: #### L 100.0100, L500.2500 ####[facility] [address] [place], [address] CBC W/Diff, Automatedon 04-0 4-5 Absolute Lymph 1.14 X10 3/uL Normal 0.83-4.51 [facility] Comment on above: Performed By: #### L 100.0100, L500.2500 ####[facility] [address] [place], [address] Absolute Neut 3.8 X10 3/uL Normal 2.0-7.7 [facility] Comment on above: Performed By: #### L 100.0100, L500.2500 ####[facility] [address] [place], [address] Basophils/100 WBC (Bld) 0.5 % Normal 0-1 [facility] Comment on above: Performed By: #### L 100.0100, L500.2500 ####[facility] [address] [place], [address] Eosinophils/100 WBC (Bld) 5.2 % High 0-5 [facility] Comment on above: Performed By: #### L 100.0100, L500.2500 ####[facility] [address] [place], [address] Erythrocyte distribution width (RBC) [Ratio] 14.2 % Normal 11.6-14.6 [facility] Comment on above: Performed By: #### L 100.0100, L500.2500 ####[facility] [address] [place], [address] Hematocrit (Bld) [Volume fraction] 32.9 % Low 37-47 [facility] Comment on above: Performed By: #### L 100.0100, L500.2500 ####[facility] [address] [place], [address] Hemoglobin (Bld) [Mass/Vol] 10.6 g/dL Low 12.0-15.0 [facility] Comment on above: Performed By: #### L 100.0100, L500.2500 ####[facility] [address] [place], [address] IG% 0.500 Normal 0.0-0.9 [facility] Comment on above: Result Comment: IG% - Immature Granulocytes (promyelocytes, myelocytes andmetamyelocytes) > 1% indicates that a LEFT SHIFT is Present. Performed By: #### L 100.0100, L500.2500 ####[facility] [address] [place], [address] Lymphocytes/100 WBC (Bld) 19.9 % Normal 19-41 [facility] Comment on above: Performed By: #### L 100.0100, L500.2500 ####[facility] [address] [place], [address] MCH (RBC) [Entitic mass] 29.8 pg Normal 27.0-32.0 [facility] Comment on above: Performed By: #### L 100.0100, L500.2500 ####[facility] [address] [place], [address] MCHC (RBC) [Mass/Vol] 32.2 g/dL Normal 32-36 [facility] Comment on above: Performed By: #### L 100.0100, L500.2500 ####[facility] [address] [place], [address] MCV (RBC) [Entitic vol] 92.4 fL Normal 81-99 [facility] Comment on above: Performed By: #### L 100.0100, L500.2500 ####[facility] [address] [place], [address] Monocytes/100 WBC (Bld) 7.5 % Normal 0-10 [facility] Comment on above: Performed By: #### L 100.0100, L500.2500 ####[facility] [address] [place], [address] Neutrophils/100 WBC (Bld) 66.4 % Normal 47-70 [facility] Comment on above: Performed By: #### L 100.0100, L500.2500 ####[facility] [address] [place], [address] Nucleated RBC (Bld) [#/Vol] 0 10*3/uL Normal 0-5 [facility] Comment on above: Performed By: #### L 100.0100, L500.2500 ####[facility] [address] [place], [address] Platelet mean volume (Bld) [Entitic vol] 9.0 fL Normal 6.2-12.0 [facility] Comment on above: Performed By: #### L 100.0100, L500.2500 ####[facility] [address] [place], [address] Platelets (Bld) [#/Vol] 381 10*3/uL Normal 150-450 [facility] Comment on above: Performed By: #### L 100.0100, L500.2500 ####[facility] [address] [place], [address] RBC (Bld) [#/Vol] 3.56 10*6/uL Low 4.2-5.4 [facility] Comment on above: Performed By: #### L 100.0100, L500.2500 ####[facility] [address] [place], [address] RDW SD 47.4 fl High 35.1-43.9 [facility] Comment on above: Performed By: #### L 100.0100, L500.2500 ####[facility] [address] [place], [address] WBC (Bld) [#/Vol] 5.7 10*3/uL Normal 4.4-11.0 [facility] Comment on above: Performed By: #### L 100.0100, L500.2500 ####[facility] [address] [place], [address] Urine Cultureon 12-24-[address] [facility] Comment on above: Performed By: #### M 100.2200 ####[facility] [address] [place], [address] Knee 1 or 2 Viewson 12-23-19 25 Knee 1 or [address] [facility] HH, Hemoglobin AND Hematocri ton 12-20-2024 Hematocrit (Bld) [Volume fraction] 29.5 % Low 37-47 [facility] Comment on above: Performed By: #### L 100.0600, L503.6030 ####[facility] [address] [place], [address] Hemoglobin (Bld) [Mass/Vol] 9.8 g/dL Low 12.0-15.0 [facility] Comment on above: Performed By: #### L 100.0600, L503.6030 ####[facility] [address] [place], [address] Iron measurement (mass/mass) Ordered By: Juan Diego Marks on 12-20-2024 Iron (Unsp spec) [Mass/Mass] 36 ug/dL Low 50-170 [facility] Iron+Iron Binding Capacityon 12-20-2024 Iron [Mass/Vol] 36 ug/dL Low 50-170 [facility] Comment on above: Performed By: #### L 100.0600, L503.6030 ####[facility] [address] [place], [address] IRON SATURATION 20.0 Normal 13-59 [facility] Comment on above: Performed By: #### L 100.0600, L503.6030 ####[facility] [address] [place], [address] UIBC 146 ug/dL Low 228-428 [facility] Comment on above: Performed By: #### L 100.0600, L503.6030 ####[facility] [address] [place], [address] No Panel InformationOrdered By: Juan Diego Marks on 12-20-2024 Unsaturated Iron Binding Capacity 146 ug/dL Low 228-428 [facility] Serum or plasma iron saturat ion measurement (mass fraction)Ordered By: Juan Diego Marks on 12-20-2024 Iron saturation [Mass fraction] 20.0 % 13-59 [facility] 12 Lead EKGon 12-19-[address] [facility] Basic Metabolic Profile (BMP )on 12-19-2024 BUN/CRE 26.6 RATIO High 10-20 [facility] Comment on above: Performed By: #### L 500.2500, L100.0100 ####[facility] [address] [place], [address] Calcium [Mass/Vol] 8.4 mg/dL Normal 7.6-11.0 [facility] Comment on above: Performed By: #### L 500.2500, L100.0100 ####[facility] [address] [place], [address] Chloride [Moles/Vol] 101 mmol/L Normal 98-108 [facility] Comment on above: Performed By: #### L 500.2500, L100.0100 ####[facility] [address] [place], [address] CO2 [Moles/Vol] 26.1 mmol/L Normal 21.0-32.0 [facility] Comment on above: Performed By: #### L 500.2500, L100.0100 ####[facility] [address] [place], [address] Creatinine [Mass/Vol] 0.65 mg/dL Low 0.70-1.20 [facility] Comment on above: Performed By: #### L 500.2500, L100.0100 ####[facility] [address] [place], [address] ECRCL 60.58 ml/min Normal 50-250 [facility] Comment on above: Performed By: #### L 500.2500, L100.0100 ####[facility] [address] [place], [address] GAP 7 Normal 5-15 [facility] Comment on above: Performed By: #### L 500.2500, L100.0100 ####[facility] [address] [place], [address] GFR/1.73 sq M.predicted among non-blacks MDRD (S/P/Bld) [Vol rate/Area] 88 mL/min/{1.73_m2} Normal >60 [facility] Comment on above: Result Comment: mL/m in/1.73m2 CKD-EPI Creatinine Equation (2020) Performed By: #### L 500.2500, L100.0100 ####[facility] [address] [place], [address] Glucose [Mass/Vol] 94 mg/dL Normal 70-99 [facility] Comment on above: Performed By: #### L 500.2500, L100.0100 ####[facility] [address] [place], [address] Potassium [Moles/Vol] 4.2 mmol/L Normal 3.3-5.1 [facility] Comment on above: Performed By: #### L 500.2500, L100.0100 ####[facility] [address] [place], [address] Sodium [Moles/Vol] 134 mmol/L Normal 133-145 [facility] Comment on above: Performed By: #### L 500.2500, L100.0100 ####[facility] [address] [place], [address] Urea nitrogen [Mass/Vol] 17 mg/dL Normal 4-19 [facility] Comment on above: Performed By: #### L 500.2500, L100.0100 ####[facility] [address] [place], [address] CBC W/Diff, Automatedon 11-23 Absolute Lymph 1.24 X10 3/uL Normal 0.83-4.51 [facility] Comment on above: Performed By: #### L 500.2500, L100.0100 ####[facility] [address] [place], [address] Absolute Neut 4.1 X10 3/uL Normal 2.0-7.7 [facility] Comment on above: Performed By: #### L 500.2500, L100.0100 ####[facility] [address] [place], [address] Basophils/100 WBC (Bld) 0.5 % Normal 0-1 [facility] Comment on above: Performed By: #### L 500.2500, L100.0100 ####[facility] [address] [place], [address] Eosinophils/100 WBC (Bld) 4.7 % Normal 0-5 [facility] Comment on above: Performed By: #### L 500.2500, L100.0100 ####[facility] [address] [place], [address] Erythrocyte distribution width (RBC) [Ratio] 13.2 % Normal 11.6-14.6 [facility] Comment on above: Performed By: #### L 500.2500, L100.0100 ####[facility] [address] [place], [address] Hematocrit (Bld) [Volume fraction] 28.5 % Low 37-47 [facility] Comment on above: Performed By: #### L 500.2500, L100.0100 ####[facility] [address] [place], [address] Hemoglobin (Bld) [Mass/Vol] 9.5 g/dL Low 12.0-15.0 [facility] Comment on above: Performed By: #### L 500.2500, L100.0100 ####[facility] [address] [place], [address] IG% 0.700 Normal 0.0-0.9 [facility] Comment on above: Result Comment: IG% - Immature Granulocytes (promyelocytes, myelocytes andmetamyelocytes) > 1% indicates that a LEFT SHIFT is Present. Performed By: #### L 500.2500, L100.0100 ####[facility] [address] [place], [address] Lymphocytes/100 WBC (Bld) 20.3 % Normal 19-41 [facility] Comment on above: Performed By: #### L 500.2500, L100.0100 ####[facility] [address] [place], [address] MCH (RBC) [Entitic mass] 29.8 pg Normal 27.0-32.0 [facility] Comment on above: Performed By: #### L 500.2500, L100.0100 ####[facility] [address] [place], [address] MCHC (RBC) [Mass/Vol] 33.3 g/dL Normal 32-36 [facility] Comment on above: Performed By: #### L 500.2500, L100.0100 ####[facility] [address] [place], [address] MCV (RBC) [Entitic vol] 89.3 fL Normal 81-99 [facility] Comment on above: Performed By: #### L 500.2500, L100.0100 ####[facility] [address] [place], [address] Monocytes/100 WBC (Bld) 7.0 % Normal 0-10 [facility] Comment on above: Performed By: #### L 500.2500, L100.0100 ####[facility] [address] [place], [address] Neutrophils/100 WBC (Bld) 66.8 % Normal 47-70 [facility] Comment on above: Performed By: #### L 500.2500, L100.0100 ####[facility] [address] [place], [address] Nucleated RBC (Bld) [#/Vol] 0 10*3/uL Normal 0-5 [facility] Comment on above: Performed By: #### L 500.2500, L100.0100 ####[facility] [address] [place], [address] Platelet mean volume (Bld) [Entitic vol] 9.4 fL Normal 6.2-12.0 [facility] Comment on above: Performed By: #### L 500.2500, L100.0100 ####[facility] [address] [place], [address] Platelets (Bld) [#/Vol] 287 10*3/uL Normal 150-450 [facility] Comment on above: Performed By: #### L 500.2500, L100.0100 ####[facility] [address] [place], [address] RBC (Bld) [#/Vol] 3.19 10*6/uL Low 4.2-5.4 [facility] Comment on above: Performed By: #### L 500.2500, L100.0100 ####[facility] [address] [place], [address] RDW SD 43.5 fl Normal 35.1-43.9 [facility] Comment on above: Performed By: #### L 500.2500, L100.0100 ####[facility] [address] [place], [address] WBC (Bld) [#/Vol] 6.1 10*3/uL Normal 4.4-11.0 [facility] Comment on above: Performed By: #### L 500.2500, L100.0100 ####[facility] [address] [place], [address] Stool Occult Blood iFOBon STOB Negative Normal [facility] Comment on above: Performed By: #### M 100.7900 ####[facility] [address] [place], [address] Stool gastrointestinal hemog lobin detection by immunologic methodOrdered By: Juan Diego Marks on 12-19-2024 Lower GI hemoglobin IA Ql (Stl) [facility] Abdomen Single Viewon 2024 Abdomen Single View Normal [facility] Basic Metabolic Profile (BMP )on 12-17-2024 BUN/CRE 51.0 RATIO High 10-20 [facility] Comment on above: Performed By: #### L 500.2500 ####[facility] [address] [place], [address] Calcium [Mass/Vol] 8.8 mg/dL Normal 7.6-11.0 [facility] Comment on above: Performed By: #### L 500.2500 ####[facility] [address] [place], [address] Chloride [Moles/Vol] 103 mmol/L Normal 98-108 [facility] Comment on above: Performed By: #### L 500.2500 ####[facility] [address] [place], [address] CO2 [Moles/Vol] 18.0 mmol/L Low 21.0-32.0 [facility] Comment on above: Performed By: #### L 500.2500 ####[facility] [address] [place], [address] Creatinine [Mass/Vol] 0.67 mg/dL Low 0.70-1.20 [facility] Comment on above: Performed By: #### L 500.2500 ####[facility] [address] [place], [address] ECRCL 60.58 ml/min Normal 50-250 [facility] Comment on above: Performed By: #### L 500.2500 ####[facility] [address] [place], [address] GAP 11 Normal 5-15 [facility] Comment on above: Performed By: #### L 500.2500 ####[facility] [address] [place], [address] GFR/1.73 sq M.predicted among non-blacks MDRD (S/P/Bld) [Vol rate/Area] 88 mL/min/{1.73_m2} Normal >60 [facility] Comment on above: Result Comment: mL/m in/1.73m2 CKD-EPI Creatinine Equation (2020) Performed By: #### L 500.2500 ####[facility] [address] [place], [address] Glucose [Mass/Vol] 210 mg/dL High 70-99 [facility] Comment on above: Performed By: #### L 500.2500 ####[facility] [address] [place], [address] Potassium [Moles/Vol] 4.5 mmol/L Normal 3.3-5.1 [facility] [place] Comment on above: Result Comment: Hemo lysis present, Results??could be affected.?? Performed By: #### L 500.2500 ####[facility] [address] [place], [address] Sodium [Moles/Vol] 132 mmol/L Low 133-145 [facility] Comment on above: Performed By: #### L 500.2500 ####[facility] [address] [place], [address] Urea nitrogen [Mass/Vol] 34 mg/dL High 4-19 [facility] Comment on above: Performed By: #### L 500.2500 ####[facility] [address] [place], [address] BUN Normal -19 [facility] Comment on above: Result Comment: Canc elled via OM: Order cancelled - Patient discharged Performed By: #### L 500.2500, L100.0100 ####[facility] [address] [place], [address] BUN/CRE Normal 10-20 [facility] Comment on above: Result Comment: Canc elled via OM: Order cancelled - Patient discharged Performed By: #### L 500.2500, L100.0100 ####[facility] [address] [place], [address] Calcium Normal 7.6-11.0 [facility] Comment on above: Result Comment: Canc elled via OM: Order cancelled - Patient discharged Performed By: #### L 500.2500, L100.0100 ####[facility] [address] [place], [address] CL Normal 98-108 [facility] Comment on above: Result Comment: Canc elled via OM: Order cancelled - Patient discharged Performed By: #### L 500.2500, L100.0100 ####[facility] [address] [place], [address] CO2 Normal 21.0-32.0 [facility] Comment on above: Result Comment: Canc elled via OM: Order cancelled - Patient discharged Performed By: #### L 500.2500, L100.0100 ####[facility] [address] [place], [address] CREAT,SERUM Normal 0.70-1.20 [facility] Comment on above: Result Comment: Canc elled via OM: Order cancelled - Patient discharged Performed By: #### L 500.2500, L100.0100 ####[facility] [address] [place], [address] eGFR Normal >60 [facility] Comment on above: Result Comment: Canc elled via OM: Order cancelled - Patient discharged Performed By: #### L 500.2500, L100.0100 ####[facility] [address] [place], [address] GAP Normal 5-15 [facility] Comment on above: Result Comment: Canc elled via OM: Order cancelled - Patient discharged Performed By: #### L 500.2500, L100.0100 ####[facility] [address] [place], [address] GLU Normal 70-99 [facility] Comment on above: Result Comment: Canc elled via OM: Order cancelled - Patient discharged Performed By: #### L 500.2500, L100.0100 ####[facility] [address] [place], [address] Potassium Normal 3.3-5.1 [facility] Comment on above: Result Comment: Canc elled via OM: Order cancelled - Patient discharged Performed By: #### L 500.2500, L100.0100 ####[facility] [address] [place], [address] Basic Metabolic Profile (BMP) Normal 133-145 [facility] Comment on above: Result Comment: Canc elled via OM: Order cancelled - Patient discharged Performed By: #### L 500.2500, L100.0100 ####[facility] [address] [place], [address] CBC W/Diff, Automatedon 03-2 Absolute Neut Normal 2.0-7.7 [facility] Comment on above: Result Comment: Canc elled via OM: Order cancelled - Patient discharged Performed By: #### L 500.2500, L100.0100 ####[facility] [address] [place], [address] HCT Normal 37-47 [facility] Comment on above: Result Comment: Canc elled via OM: Order cancelled - Patient discharged Performed By: #### L 500.2500, L100.0100 ####[facility] [address] [place], [address] HGB Normal 12.0-15.0 [facility] Comment on above: Result Comment: Canc elled via OM: Order cancelled - Patient discharged Performed By: #### L 500.2500, L100.0100 ####[facility] [address] [place], [address] MCH Normal 27.0-32.0 [facility] Comment on above: Result Comment: Canc elled via OM: Order cancelled - Patient discharged Performed By: #### L 500.2500, L100.0100 ####[facility] [address] [place], [address] MCHC Normal 32-36 [facility] Comment on above: Result Comment: Canc elled via OM: Order cancelled - Patient discharged Performed By: #### L 500.2500, L100.0100 ####[facility] [address] [place], [address] MCV Normal 81-99 [facility] Comment on above: Result Comment: Canc elled via OM: Order cancelled - Patient discharged Performed By: #### L 500.2500, L100.0100 ####[facility] [address] [place], [address] NEUT% Normal 47-70 [facility] Comment on above: Result Comment: Canc elled via OM: Order cancelled - Patient discharged Performed By: #### L 500.2500, L100.0100 ####[facility] [address] [place], [address] PLT Normal 150-450 [facility] Comment on above: Result Comment: Canc elled via OM: Order cancelled - Patient discharged Performed By: #### L 500.2500, L100.0100 ####[facility] [address] [place], [address] RBC Normal 4.2-5.4 [facility] Comment on above: Result Comment: Canc elled via OM: Order cancelled - Patient discharged Performed By: #### L 500.2500, L100.0100 ####[facility] [address] [place], [address] RDW CV Normal 11.6-14.6 [facility] Comment on above: Result Comment: Canc elled via OM: Order cancelled - Patient discharged Performed By: #### L 500.2500, L100.0100 ####[facility] [address] [place], [address] RDW SD Normal 35.1-43.9 [facility] Comment on above: Result Comment: Canc elled via OM: Order cancelled - Patient discharged Performed By: #### L 500.2500, L100.0100 ####[facility] [address] [place], [address] WBC Normal 4.4-11.0 [facility] Comment on above: Result Comment: Canc elled via OM: Order cancelled - Patient discharged Performed By: #### L 500.2500, L100.0100 ####[facility] [address] [place], [address] Urinalysis, Completeon 12-17 RBC 0 SEEN Normal 0-5 [facility] Comment on above: Order Comment: TREVOR TER SPECIMEN Performed By: #### L 400.0001 ####[facility] [address] [place], [address] WBC 0-5 SEEN Normal 0-5 [facility] Comment on above: Order Comment: TREVOR TER SPECIMEN Performed By: #### L 400.0001 ####[facility] [address] [place], [address] BACTERIA 1+ /hpf Normal None Seen [facility] Comment on above: Order Comment: TREVOR TER SPECIMEN Performed By: #### L 400.0001 ####[facility] [address] [place], [address] EPI,SQUAMOUS 0 SEEN Normal 5-10 [facility] Comment on above: Order Comment: TREVOR TER SPECIMEN Performed By: #### L 400.0001 ####[facility] [address] [place], [address] Mucus Ql (Urine sed) 0 SEEN Normal [facility] Comment on above: Order Comment: TREVOR TER SPECIMEN Performed By: #### L 400.0001 ####[facility] [address] [place], [address] Urine cultureOrdered By: Juan Diego Marks on 12-17-2024 Bacteria identified Cx Nom (U) Granulicatella elegans Abnormal [facility] Basic Metabolic Profile (BMP )on 12-16-2024 BUN Normal 4-19 [facility] Comment on above: Result Comment: Canc elled via OM: Order cancelled - Patient discharged Performed By: #### L 500.2500, L100.0100 ####[facility] [address] [place], [address] BUN/CRE Normal 10-20 [facility] Comment on above: Result Comment: Canc elled via OM: Order cancelled - Patient discharged Performed By: #### L 500.2500, L100.0100 ####[facility] [address] [place], [address] Calcium Normal 7.6-11.0 [facility] Comment on above: Result Comment: Canc elled via OM: Order cancelled - Patient discharged Performed By: #### L 500.2500, L100.0100 ####[facility] [address] [place], [address] CL Normal 98-108 [facility] Comment on above: Result Comment: Canc elled via OM: Order cancelled - Patient discharged Performed By: #### L 500.2500, L100.0100 ####[facility] [address] [place], [address] CO2 Normal 21.0-32.0 [facility] Comment on above: Result Comment: Canc elled via OM: Order cancelled - Patient discharged Performed By: #### L 500.2500, L100.0100 ####[facility] [address] [place], [address] CREAT,SERUM Normal 0.70-1.20 [facility] Comment on above: Result Comment: Canc elled via OM: Order cancelled - Patient discharged Performed By: #### L 500.2500, L100.0100 ####[facility] [address] [place], [address] eGFR Normal >60 [facility] Comment on above: Result Comment: Canc elled via OM: Order cancelled - Patient discharged Performed By: #### L 500.2500, L100.0100 ####[facility] [address] [place], [address] GAP Normal 5-15 [facility] Comment on above: Result Comment: Canc elled via OM: Order cancelled - Patient discharged Performed By: #### L 500.2500, L100.0100 ####[facility] [address] [place], [address] GLU Normal 70-99 [facility] Comment on above: Result Comment: Canc elled via OM: Order cancelled - Patient discharged Performed By: #### L 500.2500, L100.0100 ####[facility] [address] [place], [address] Potassium Normal 3.3-5.1 [facility] Comment on above: Result Comment: Canc elled via OM: Order cancelled - Patient discharged Performed By: #### L 500.2500, L100.0100 ####[facility] [address] [place], [address] Basic Metabolic Profile (BMP) Normal 133-145 [facility] Comment on above: Result Comment: Canc elled via OM: Order cancelled - Patient discharged Performed By: #### L 500.2500, L100.0100 ####[facility] [address] [place], [address] CBC W/Diff, Automatedon 03-2 -2024 Absolute Neut Normal 2.0-7.7 [facility] Comment on above: Result Comment: Canc elled via OM: Order cancelled - Patient discharged Performed By: #### L 500.2500, L100.0100 ####[facility] [address] [place], [address] HCT Normal 37-47 [facility] Comment on above: Result Comment: Canc elled via OM: Order cancelled - Patient discharged Performed By: #### L 500.2500, L100.0100 ####[facility] [address] [place], [address] HGB Normal 12.0-15.0 [facility] Comment on above: Result Comment: Canc elled via OM: Order cancelled - Patient discharged Performed By: #### L 500.2500, L100.0100 ####[facility] [address] [place], [address] MCH Normal 27.0-32.0 [facility] Comment on above: Result Comment: Canc elled via OM: Order cancelled - Patient discharged Performed By: #### L 500.2500, L100.0100 ####[facility] [address] [place], [address] MCHC Normal 32-36 [facility] Comment on above: Result Comment: Canc elled via OM: Order cancelled - Patient discharged Performed By: #### L 500.2500, L100.0100 ####[facility] [address] [place], [address] MCV Normal 81-99 [facility] Comment on above: Result Comment: Canc elled via OM: Order cancelled - Patient discharged Performed By: #### L 500.2500, L100.0100 ####[facility] [address] [place], [address] NEUT% Normal 47-70 [facility] Comment on above: Result Comment: Canc elled via OM: Order cancelled - Patient discharged Performed By: #### L 500.2500, L100.0100 ####[facility] [address] [place], [address] PLT Normal 150-450 [facility] Comment on above: Result Comment: Canc elled via OM: Order cancelled - Patient discharged Performed By: #### L 500.2500, L100.0100 ####[facility] [address] [place], [address] RBC Normal 4.2-5.4 [facility] Comment on above: Result Comment: Canc elled via OM: Order cancelled - Patient discharged Performed By: #### L 500.2500, L100.0100 ####[facility] [address] [place], [address] RDW CV Normal 11.6-14.6 [facility] Comment on above: Result Comment: Canc elled via OM: Order cancelled - Patient discharged Performed By: #### L 500.2500, L100.0100 ####[facility] [address] [place], [address] RDW SD Normal 35.1-43.9 [facility] Comment on above: Result Comment: Canc elled via OM: Order cancelled - Patient discharged Performed By: #### L 500.2500, L100.0100 ####[facility] [address] [place], [address] WBC Normal 4.4-11.0 [facility] Comment on above: Result Comment: Canc elled via OM: Order cancelled - Patient discharged Performed By: #### L 500.2500, L100.0100 ####[facility] [address] [place], [address] Basic Metabolic Profile (BMP )on 12-15-2024 BUN Normal 4-19 [facility] Comment on above: Result Comment: Canc elled via OM: Order cancelled - Patient discharged Performed By: #### L 100.0100, L500.2500 ####[facility] [address] [place], [address] BUN/CRE Normal 10-20 [facility] Comment on above: Result Comment: Canc elled via OM: Order cancelled - Patient discharged Performed By: #### L 100.0100, L500.2500 ####[facility] [address] [place], [address] Calcium Normal 7.6-11.0 [facility] Comment on above: Result Comment: Canc elled via OM: Order cancelled - Patient discharged Performed By: #### L 100.0100, L500.2500 ####[facility] [address] [place], [address] CL Normal 98-108 [facility] Comment on above: Result Comment: Canc elled via OM: Order cancelled - Patient discharged Performed By: #### L 100.0100, L500.2500 ####[facility] [address] [place], [address] CO2 Normal 21.0-32.0 [facility] Comment on above: Result Comment: Canc elled via OM: Order cancelled - Patient discharged Performed By: #### L 100.0100, L500.2500 ####[facility] [address] [place], [address] CREAT,SERUM Normal 0.70-1.20 [facility] Comment on above: Result Comment: Canc elled via OM: Order cancelled - Patient discharged Performed By: #### L 100.0100, L500.2500 ####[facility] [address] [place], [address] eGFR Normal >60 [facility] Comment on above: Result Comment: Canc elled via OM: Order cancelled - Patient discharged Performed By: #### L 100.0100, L500.2500 ####[facility] [address] [place], [address] GAP Normal 5-15 [facility] Comment on above: Result Comment: Canc elled via OM: Order cancelled - Patient discharged Performed By: #### L 100.0100, L500.2500 ####[facility] [address] [place], [address] GLU Normal 70-99 [facility] Comment on above: Result Comment: Canc elled via OM: Order cancelled - Patient discharged Performed By: #### L 100.0100, L500.2500 ####[facility] [address] [place], [address] Potassium Normal 3.3-5.1 [facility] Comment on above: Result Comment: Canc elled via OM: Order cancelled - Patient discharged Performed By: #### L 100.0100, L500.2500 ####[facility] [address] [place], [address] Basic Metabolic Profile (BMP) Normal 133-145 [facility] Comment on above: Result Comment: Canc elled via OM: Order cancelled - Patient discharged Performed By: #### L 100.0100, L500.2500 ####[facility] [address] [place], [address] CBC W/Diff, Automatedon 03- Absolute Neut Normal 2.0-7.7 [facility] Comment on above: Result Comment: Canc elled via OM: Order cancelled - Patient discharged Performed By: #### L 100.0100, L500.2500 ####[facility] [address] [place], [address] HCT Normal 37-47 [facility] Comment on above: Result Comment: Canc elled via OM: Order cancelled - Patient discharged Performed By: #### L 100.0100, L500.2500 ####[facility] [address] [place], [address] HGB Normal 12.0-15.0 [facility] Comment on above: Result Comment: Canc elled via OM: Order cancelled - Patient discharged Performed By: #### L 100.0100, L500.2500 ####[facility] [address] [place], [address] MCH Normal 27.0-32.0 [facility] Comment on above: Result Comment: Canc elled via OM: Order cancelled - Patient discharged Performed By: #### L 100.0100, L500.2500 ####[facility] [address] [place], [address] MCHC Normal 32-36 [facility] Comment on above: Result Comment: Canc elled via OM: Order cancelled - Patient discharged Performed By: #### L 100.0100, L500.2500 ####[facility] [address] [place], [address] MCV Normal 81-99 [facility] Comment on above: Result Comment: Canc elled via OM: Order cancelled - Patient discharged Performed By: #### L 100.0100, L500.2500 ####[facility] [address] [place], [address] NEUT% Normal 47-70 [facility] Comment on above: Result Comment: Canc elled via OM: Order cancelled - Patient discharged Performed By: #### L 100.0100, L500.2500 ####[facility] [address] [place], [address] PLT Normal 150-450 [facility] Comment on above: Result Comment: Canc elled via OM: Order cancelled - Patient discharged Performed By: #### L 100.0100, L500.2500 ####[facility] [address] [place], [address] RBC Normal 4.2-5.4 [facility] Comment on above: Result Comment: Canc elled via OM: Order cancelled - Patient discharged Performed By: #### L 100.0100, L500.2500 ####[facility] [address] [place], [address] RDW CV Normal 11.6-14.6 [facility] Comment on above: Result Comment: Canc elled via OM: Order cancelled - Patient discharged Performed By: #### L 100.0100, L500.2500 ####[facility] [address] [place], [address] RDW SD Normal 35.1-43.9 [facility] Comment on above: Result Comment: Canc elled via OM: Order cancelled - Patient discharged Performed By: #### L 100.0100, L500.2500 ####[facility] [address] [place], [address] WBC Normal 4.4-11.0 [facility] Comment on above: Result Comment: Canc elled via OM: Order cancelled - Patient discharged Performed By: #### L 100.0100, L500.2500 ####[facility] [address] [place], [address] Basic Metabolic Profile (BMP )on 12-14-2024 BUN Normal 4-19 [facility] Comment on above: Result Comment: Canc elled via OM: Order cancelled - Patient discharged Performed By: #### L 500.2500, L100.0100 ####[facility] [address] [place], [address] BUN/CRE Normal 10-20 [facility] Comment on above: Result Comment: Canc elled via OM: Order cancelled - Patient discharged Performed By: #### L 500.2500, L100.0100 ####[facility] [address] [place], [address] Calcium Normal 7.6-11.0 [facility] Comment on above: Result Comment: Canc elled via OM: Order cancelled - Patient discharged Performed By: #### L 500.2500, L100.0100 ####[facility] [address] [place], [address] CL Normal 98-108 [facility] Comment on above: Result Comment: Canc elled via OM: Order cancelled - Patient discharged Performed By: #### L 500.2500, L100.0100 ####[facility] [address] [place], [address] CO2 Normal 21.0-32.0 [facility] Comment on above: Result Comment: Canc elled via OM: Order cancelled - Patient discharged Performed By: #### L 500.2500, L100.0100 ####[facility] [address] [place], [address] CREAT,SERUM Normal 0.70-1.20 [facility] Comment on above: Result Comment: Canc elled via OM: Order cancelled - Patient discharged Performed By: #### L 500.2500, L100.0100 ####[facility] [address] [place], [address] eGFR Normal >60 [facility] Comment on above: Result Comment: Canc elled via OM: Order cancelled - Patient discharged Performed By: #### L 500.2500, L100.0100 ####[facility] [address] [place], [address] GAP Normal 5-15 [facility] Comment on above: Result Comment: Canc elled via OM: Order cancelled - Patient discharged Performed By: #### L 500.2500, L100.0100 ####[facility] [address] [place], [address] GLU Normal 70-99 [facility] Comment on above: Result Comment: Canc elled via OM: Order cancelled - Patient discharged Performed By: #### L 500.2500, L100.0100 ####[facility] [address] [place], [address] Potassium Normal 3.3-5.1 [facility] Comment on above: Result Comment: Canc elled via OM: Order cancelled - Patient discharged Performed By: #### L 500.2500, L100.0100 ####[facility] [address] [place], [address] Basic Metabolic Profile (BMP) Normal 133-145 [facility] Comment on above: Result Comment: Canc elled via OM: Order cancelled - Patient discharged Performed By: #### L 500.2500, L100.0100 ####[facility] [address] [place], [address] CBC W/Diff, Automatedon 11-23 Absolute Neut Normal 2.0-7.7 [facility] Comment on above: Result Comment: Canc elled via OM: Order cancelled - Patient discharged Performed By: #### L 500.2500, L100.0100 ####[facility] [address] [place], [address] HCT Normal 37-47 [facility] Comment on above: Result Comment: Canc elled via OM: Order cancelled - Patient discharged Performed By: #### L 500.2500, L100.0100 ####[facility] [address] [place], [address] HGB Normal 12.0-15.0 [facility] Comment on above: Result Comment: Canc elled via OM: Order cancelled - Patient discharged Performed By: #### L 500.2500, L100.0100 ####[facility] [address] [place], [address] MCH Normal 27.0-32.0 [facility] Comment on above: Result Comment: Canc elled via OM: Order cancelled - Patient discharged Performed By: #### L 500.2500, L100.0100 ####[facility] [address] [place], [address] MCHC Normal 32-36 [facility] Comment on above: Result Comment: Canc elled via OM: Order cancelled - Patient discharged Performed By: #### L 500.2500, L100.0100 ####[facility] [address] [place], [address] MCV Normal 81-99 [facility] Comment on above: Result Comment: Canc elled via OM: Order cancelled - Patient discharged Performed By: #### L 500.2500, L100.0100 ####[facility] [address] [place], [address] NEUT% Normal 47-70 [facility] Comment on above: Result Comment: Canc elled via OM: Order cancelled - Patient discharged Performed By: #### L 500.2500, L100.0100 ####[facility] [address] [place], [address] PLT Normal 150-450 [facility] Comment on above: Result Comment: Canc elled via OM: Order cancelled - Patient discharged Performed By: #### L 500.2500, L100.0100 ####[facility] [address] [place], [address] RBC Normal 4.2-5.4 [facility] Comment on above: Result Comment: Canc elled via OM: Order cancelled - Patient discharged Performed By: #### L 500.2500, L100.0100 ####[facility] [address] [place], [address] RDW CV Normal 11.6-14.6 [facility] Comment on above: Result Comment: Canc elled via OM: Order cancelled - Patient discharged Performed By: #### L 500.2500, L100.0100 ####[facility] [address] [place], [address] RDW SD Normal 35.1-43.9 [facility] Comment on above: Result Comment: Canc elled via OM: Order cancelled - Patient discharged Performed By: #### L 500.2500, L100.0100 ####[facility] [address] [place], [address] WBC Normal 4.4-11.0 [facility] Comment on above: Result Comment: Canc elled via OM: Order cancelled - Patient discharged Performed By: #### L 500.2500, L100.0100 ####[facility] [address] [place], [address] Basic Metabolic Profile (BMP )on 12-13-2024 BUN Normal 4-19 [facility] Comment on above: Result Comment: Canc elled via OM: Order cancelled - Patient discharged Performed By: #### L 500.2500, L100.0100 ####[facility] [address] [place], [address] BUN/CRE Normal 10-20 [facility] Comment on above: Result Comment: Canc elled via OM: Order cancelled - Patient discharged Performed By: #### L 500.2500, L100.0100 ####[facility] [address] [place], [address] Calcium Normal 7.6-11.0 [facility] Comment on above: Result Comment: Canc elled via OM: Order cancelled - Patient discharged Performed By: #### L 500.2500, L100.0100 ####[facility] [address] [place], [address] CL Normal 98-108 [facility] Comment on above: Result Comment: Canc elled via OM: Order cancelled - Patient discharged Performed By: #### L 500.2500, L100.0100 ####[facility] [address] [place], [address] CO2 Normal 21.0-32.0 [facility] Comment on above: Result Comment: Canc elled via OM: Order cancelled - Patient discharged Performed By: #### L 500.2500, L100.0100 ####[facility] [address] [place], [address] CREAT,SERUM Normal 0.70-1.20 [facility] Comment on above: Result Comment: Canc elled via OM: Order cancelled - Patient discharged Performed By: #### L 500.2500, L100.0100 ####[facility] [address] [place], [address] eGFR Normal >60 [facility] Comment on above: Result Comment: Canc elled via OM: Order cancelled - Patient discharged Performed By: #### L 500.2500, L100.0100 ####[facility] [address] [place], [address] GAP Normal 5-15 [facility] Comment on above: Result Comment: Canc elled via OM: Order cancelled - Patient discharged Performed By: #### L 500.2500, L100.0100 ####[facility] [address] [place], [address] GLU Normal 70-99 [facility] Comment on above: Result Comment: Canc elled via OM: Order cancelled - Patient discharged Performed By: #### L 500.2500, L100.0100 ####[facility] [address] [place], [address] Potassium Normal 3.3-5.1 [facility] Comment on above: Result Comment: Canc elled via OM: Order cancelled - Patient discharged Performed By: #### L 500.2500, L100.0100 ####[facility] [address] [place], [address] Basic Metabolic Profile (BMP) Normal 133-145 [facility] Comment on above: Result Comment: Canc elled via OM: Order cancelled - Patient discharged Performed By: #### L 500.2500, L100.0100 ####[facility] [address] [place], [address] CBC W/Diff, Automatedon 11-23 Absolute Neut Normal 2.0-7.7 [facility] Comment on above: Result Comment: Canc elled via OM: Order cancelled - Patient discharged Performed By: #### L 500.2500, L100.0100 ####[facility] [address] [place], [address] HCT Normal 37-47 [facility] Comment on above: Result Comment: Canc elled via OM: Order cancelled - Patient discharged Performed By: #### L 500.2500, L100.0100 ####[facility] [address] [place], [address] HGB Normal 12.0-15.0 [facility] Comment on above: Result Comment: Canc elled via OM: Order cancelled - Patient discharged Performed By: #### L 500.2500, L100.0100 ####[facility] [address] [place], [address] MCH Normal 27.0-32.0 [facility] Comment on above: Result Comment: Canc elled via OM: Order cancelled - Patient discharged Performed By: #### L 500.2500, L100.0100 ####[facility] [address] [place], [address] MCHC Normal 32-36 [facility] Comment on above: Result Comment: Canc elled via OM: Order cancelled - Patient discharged Performed By: #### L 500.2500, L100.0100 ####[facility] [address] [place], [address] MCV Normal 81-99 [facility] Comment on above: Result Comment: Canc elled via OM: Order cancelled - Patient discharged Performed By: #### L 500.2500, L100.0100 ####[facility] [address] [place], [address] NEUT% Normal 47-70 [facility] Comment on above: Result Comment: Canc elled via OM: Order cancelled - Patient discharged Performed By: #### L 500.2500, L100.0100 ####[facility] [address] [place], [address] PLT Normal 150-450 [facility] Comment on above: Result Comment: Canc elled via OM: Order cancelled - Patient discharged Performed By: #### L 500.2500, L100.0100 ####[facility] [address] [place], [address] RBC Normal 4.2-5.4 [facility] Comment on above: Result Comment: Canc elled via OM: Order cancelled - Patient discharged Performed By: #### L 500.2500, L100.0100 ####[facility] [address] [place], [address] RDW CV Normal 11.6-14.6 [facility] Comment on above: Result Comment: Canc elled via OM: Order cancelled - Patient discharged Performed By: #### L 500.2500, L100.0100 ####[facility] [address] [place], [address] RDW SD Normal 35.1-43.9 [facility] Comment on above: Result Comment: Canc elled via OM: Order cancelled - Patient discharged Performed By: #### L 500.2500, L100.0100 ####[facility] [address] [place], [address] WBC Normal 4.4-11.0 [facility] Comment on above: Result Comment: Canc elled via OM: Order cancelled - Patient discharged Performed By: #### L 500.2500, L100.0100 ####[facility] [address] [place], [address] Calculated very low density lipoprotein (VLDL) cholesterol measurementOrdered By: Juan Diego Marks on 12-13-2024 Calculated very low density lipoprotein (VLDL) cholesterol measurement 17 mg/dL 5-40 [facility] L503.0106on 12-13-2024 Cobalamin (Vitamin B12) [Mass/Vol] 645 pg/mL Normal 180-914 [facility] Comment on above: Performed By: #### L 503.0106, L500.4100 ####[facility] [address] [place], [address] LDL calc ser/plasOrdered By: Juan Diego Marks on 12-13-2024 Cholesterol in LDL [Mass/Vol] 47 mg/dL [facility] Comment on above: Nryagmelcf=464-090 m g/dL & Higher Izrf=360 mg/dL or greater Lipid Profileon 12-13-2024 CHOL:HDL 2.[address] [facility] Comment on above: Performed By: #### L 503.0106, L500.4100 ####[facility] [address] [place], [address] Cholesterol [Mass/Vol] 124 mg/dL Normal <=200 [facility] Comment on above: Result Comment: Chol esterol level, Desirable <200 mg/dLBorderline high cholesterol 200-239 mg/dLHigh cholesterol >=240 mg/dLRecommendations of the NCEP Adult Treatment Panel for thefollowing risk-cutoff thresholds for the [place] Americanpulation. Performed By: #### L 503.0106, L500.4100 ####[facility] [address] [place], [address] Cholesterol in HDL [Mass/Vol] 60 mg/dL Normal [facility] Comment on above: Result Comment: Rosalind onal Cholesterol Education Program (NCEP) guidelines:<40 mg/dL: Low HDL-cholesterol (major risk factor for CHD)>= 60 mg/dL: High HDL-cholesterol (negative risk factor forCHD)HDL-cholesterol is affected by a number of factors, e.g.smoking, exercise, hormones, sex and age. Performed By: #### L 503.0106, L500.4100 ####[facility] [address] [place], [address] Cholesterol in LDL [Mass/Vol] 47 mg/dL Normal [facility] Comment on above: Result Comment: Bord ecjanx=074-534 mg/dL Higher Tdpr=522 mg/dL or greater Performed By: #### L 503.0106, L500.4100 ####[facility] [address] [place], [address] Cholesterol in VLDL [Mass/Vol] 17 mg/dL Normal 5-40 [facility] Comment on above: Performed By: #### L 503.0106, L500.4100 ####[facility] [address] [place], [address] Triglyceride [Mass/Vol] 85 mg/dL Normal [facility] Comment on above: Result Comment: The drugs N-Acetylcysteine and Metamizole may falselydepress this assay.Normal range: <150 mg/dLBorderline High: 150-199 mg/dLHigh: 200-499 mg/dLVery High: >500 mg/dL Performed By: #### L 503.0106, L500.4100 ####[facility] [address] [place], [address] Screening total cholesterol/ high density lipoprotein (HDL) cholesterol ratioOrdered By: Juan Diego Marks on 12-13-2024 Cholesterol.total/Choles terol in HDL [Mass ratio] 2.08 {ratio} [facility] Serum or plasma cholesterol in HDL measurement (mass/volume)Ordered By: Juan Diego Marks on 12-13-2024 Cholesterol in HDL [Mass/Vol] 60 mg/dL >40 [facility] Comment on above: National Cholesterol Education Program (NCEP) guidelines:<40 mg/dL: Low HDL-cholesterol (major risk factor for CHD)>= 60 mg/dL: High HDL-cholesterol (negative risk factor for CHD)HDL-cholesterol is affected by a number of factors, e.g. smoking, exercise, hormones, sex and age. Serum or plasma cholesterol measurement (mass/volume)Ordered By: Juan Diego Marks on 12-13-2024 Cholesterol [Mass/Vol] 124 mg/dL <201 [facility] Comment on above: Cholesterol level, D esirable <200 mg/dLBorderline high cholesterol 200-239 mg/dLHigh cholesterol >=240 mg/dLRecommendations of the NCEP Adult Treatment Panel for the following risk-cutoff thresholds for the [place] population. Triglycerides measurementOrd ered By: Juan Diego Marks on 12-13-2024 Triglyceride [Mass/Vol] 85 mg/dL <199 [facility] Comment on above: The drugs N-Acetylcy steine and Metamizole may falsely depress this assay. Normal range: <150 mg/dLBorderline High: 150-199 mg/dLHigh: 200-499 mg/dLVery High: >500 mg/dL Vitamin B12 ser/plasOrdered By: Juan Diego Marks on 12-13-2024 Cobalamin (Vitamin B12) [Mass/Vol] 645 pg/mL 180-914 [facility] Basic Metabolic Profile (BMP )on 12-12-2024 BUN/CRE 29.5 RATIO High 10-20 [facility] Comment on above: Performed By: #### L 500.2500, L100.0100 ####[facility] [address] [place], [address] Calcium [Mass/Vol] 9.2 mg/dL Normal 7.6-11.0 [facility] Comment on above: Performed By: #### L 500.2500, L100.0100 ####[facility] [address] [place], [address] Chloride [Moles/Vol] 97 mmol/L Low 98-108 [facility] Comment on above: Performed By: #### L 500.2500, L100.0100 ####[facility] [address] [place], [address] CO2 [Moles/Vol] 20.4 mmol/L Low 21.0-32.0 [facility] Comment on above: Performed By: #### L 500.2500, L100.0100 ####[facility] [address] [place], [address] Creatinine [Mass/Vol] 1.39 mg/dL High 0.70-1.20 [facility] Comment on above: Performed By: #### L 500.2500, L100.0100 ####[facility] [address] [place], [address] ECRCL 35.39 ml/min Low 50-250 [facility] Comment on above: Performed By: #### L 500.2500, L100.0100 ####[facility] [address] [place], [address] GAP 11 Normal 5-15 [facility] Comment on above: Performed By: #### L 500.2500, L100.0100 ####[facility] [address] [place], [address] GFR/1.73 sq M.predicted among non-blacks MDRD (S/P/Bld) [Vol rate/Area] 38 mL/min/{1.73_m2} Low >60 [facility] Comment on above: Result Comment: mL/m in/1.73m2 CKD-EPI Creatinine Equation (2020) Performed By: #### L 500.2500, L100.0100 ####[facility] [address] [place], [address] Glucose [Mass/Vol] 99 mg/dL Normal 70-99 [facility] Comment on above: Performed By: #### L 500.2500, L100.0100 ####[facility] [address] [place], [address] Potassium [Moles/Vol] 4.9 mmol/L Normal 3.3-5.1 [facility] Comment on above: Performed By: #### L 500.2500, L100.0100 ####[facility] [address] [place], [address] Sodium [Moles/Vol] 128 mmol/L Low 133-145 [facility] Comment on above: Performed By: #### L 500.2500, L100.0100 ####[facility] [address] [place], [address] Urea nitrogen [Mass/Vol] 41 mg/dL High 4-19 [facility] Comment on above: Performed By: #### L 500.2500, L100.0100 ####[facility] [address] [place], [address] BUN Normal 4-19 [facility] Comment on above: Result Comment: Canc elled via OM: Order cancelled - Patient discharged Performed By: #### L 100.0100, L500.2500 ####[facility] [address] [place], [address] BUN/CRE Normal 10-20 [facility] Comment on above: Result Comment: Canc elled via OM: Order cancelled - Patient discharged Performed By: #### L 100.0100, L500.2500 ####[facility] [address] [place], [address] Calcium Normal 7.6-11.0 [facility] Comment on above: Result Comment: Canc elled via OM: Order cancelled - Patient discharged Performed By: #### L 100.0100, L500.2500 ####[facility] [address] [place], [address] CL Normal 98-108 [facility] Comment on above: Result Comment: Canc elled via OM: Order cancelled - Patient discharged Performed By: #### L 100.0100, L500.2500 ####[facility] [address] [place], [address] CO2 Normal 21.0-32.0 [facility] Comment on above: Result Comment: Canc elled via OM: Order cancelled - Patient discharged Performed By: #### L 100.0100, L500.2500 ####[facility] [address] [place], [address] CREAT,SERUM Normal 0.70-1.20 [facility] Comment on above: Result Comment: Canc elled via OM: Order cancelled - Patient discharged Performed By: #### L 100.0100, L500.2500 ####[facility] [address] [place], [address] eGFR Normal >60 [facility] Comment on above: Result Comment: Canc elled via OM: Order cancelled - Patient discharged Performed By: #### L 100.0100, L500.2500 ####[facility] [address] [place], [address] GAP Normal 5-15 [facility] Comment on above: Result Comment: Canc elled via OM: Order cancelled - Patient discharged Performed By: #### L 100.0100, L500.2500 ####[facility] [address] [place], [address] GLU Normal 70-99 [facility] Comment on above: Result Comment: Canc elled via OM: Order cancelled - Patient discharged Performed By: #### L 100.0100, L500.2500 ####[facility] [address] [place], [address] Potassium Normal 3.3-5.1 [facility] Comment on above: Result Comment: Canc elled via OM: Order cancelled - Patient discharged Performed By: #### L 100.0100, L500.2500 ####[facility] [address] [place], [address] Basic Metabolic Profile (BMP) Normal 133-145 [facility] Comment on above: Result Comment: Canc elled via OM: Order cancelled - Patient discharged Performed By: #### L 100.0100, L500.2500 ####[facility] [address] [place], [address] CBC W/Diff, Automatedon 03-2 Absolute Lymph 0.93 X10 3/uL Normal 0.83-4.51 [facility] Comment on above: Performed By: #### L 500.2500, L100.0100 ####[facility] [address] [place], [address] Absolute Neut 4.4 X10 3/uL Normal 2.0-7.7 [facility] Comment on above: Performed By: #### L 500.2500, L100.0100 ####[facility] [address] [place], [address] Basophils/100 WBC (Bld) 0.3 % Normal 0-1 [facility] Comment on above: Performed By: #### L 500.2500, L100.0100 ####[facility] [address] [place], [address] Eosinophils/100 WBC (Bld) 5.0 % Normal 0-5 [facility] Comment on above: Performed By: #### L 500.2500, L100.0100 ####[facility] [address] [place], [address] Erythrocyte distribution width (RBC) [Ratio] 13.2 % Normal 11.6-14.6 [facility] Comment on above: Performed By: #### L 500.2500, L100.0100 ####[facility] [address] [place], [address] Hematocrit (Bld) [Volume fraction] 32.6 % Low 37-47 [facility] Comment on above: Performed By: #### L 500.2500, L100.0100 ####[facility] [address] [place], [address] Hemoglobin (Bld) [Mass/Vol] 11.0 g/dL Low 12.0-15.0 [facility] Comment on above: Performed By: #### L 500.2500, L100.0100 ####[facility] [address] [place], [address] IG% 0.500 Normal 0.0-0.9 [facility] Comment on above: Result Comment: IG% - Immature Granulocytes (promyelocytes, myelocytes andmetamyelocytes) > 1% indicates that a LEFT SHIFT is Present. Performed By: #### L 500.2500, L100.0100 ####[facility] [address] [place], [address] Lymphocytes/100 WBC (Bld) 14.9 % Low 19-41 [facility] Comment on above: Performed By: #### L 500.2500, L100.0100 ####[facility] [address] [place], [address] MCH (RBC) [Entitic mass] 29.4 pg Normal 27.0-32.0 [facility] Comment on above: Performed By: #### L 500.2500, L100.0100 ####[facility] [address] [place], [address] MCHC (RBC) [Mass/Vol] 33.7 g/dL Normal 32-36 [facility] Comment on above: Performed By: #### L 500.2500, L100.0100 ####[facility] [address] [place], [address] MCV (RBC) [Entitic vol] 87.2 fL Normal 81-99 [facility] Comment on above: Performed By: #### L 500.2500, L100.0100 ####[facility] [address] [place], [address] Monocytes/100 WBC (Bld) 9.3 % Normal 0-10 [facility] Comment on above: Performed By: #### L 500.2500, L100.0100 ####[facility] [address] [place], [address] Neutrophils/100 WBC (Bld) 70.0 % Normal 47-70 [facility] Comment on above: Performed By: #### L 500.2500, L100.0100 ####[facility] [address] [place], [address] Nucleated RBC (Bld) [#/Vol] 0 10*3/uL Normal 0-5 [facility] Comment on above: Performed By: #### L 500.2500, L100.0100 ####[facility] [address] [place], [address] Platelet mean volume (Bld) [Entitic vol] 9.8 fL Normal 6.2-12.0 [facility] Comment on above: Performed By: #### L 500.2500, L100.0100 ####[facility] [address] [place], [address] Platelets (Bld) [#/Vol] 290 10*3/uL Normal 150-450 [facility] Comment on above: Performed By: #### L 500.2500, L100.0100 ####[facility] [address] [place], [address] RBC (Bld) [#/Vol] 3.74 10*6/uL Low 4.2-5.4 [facility] Comment on above: Performed By: #### L 500.2500, L100.0100 ####[facility] [address] [place], [address] RDW SD 41.7 fl Normal 35.1-43.9 [facility] [facility] Comment on above: Performed By: #### L 500.2500, L100.0100 ####[facility] [address] [place], [address] WBC (Bld) [#/Vol] 6.3 10*3/uL Normal 4.4-11.0 [facility] Comment on above: Performed By: #### L 500.2500, L100.0100 ####[facility] [address] [place], [address] Absolute Neut Normal 2.0-7.7 [facility] Comment on above: Result Comment: Canc elled via OM: Order cancelled - Patient discharged Performed By: #### L 100.0100, L500.2500 ####[facility] [address] [place], [address] HCT Normal 37-47 [facility] Comment on above: Result Comment: Canc elled via OM: Order cancelled - Patient discharged Performed By: #### L 100.0100, L500.2500 ####[facility] [address] [place], [address] HGB Normal 12.0-15.0 [facility] Comment on above: Result Comment: Canc elled via OM: Order cancelled - Patient discharged Performed By: #### L 100.0100, L500.2500 ####[facility] [address] [place], [address] MCH Normal 27.0-32.0 [facility] Comment on above: Result Comment: Canc elled via OM: Order cancelled - Patient discharged Performed By: #### L 100.0100, L500.2500 ####[facility] [address] [place], [address] MCHC Normal 32-36 [facility] Comment on above: Result Comment: Canc elled via OM: Order cancelled - Patient discharged Performed By: #### L 100.0100, L500.2500 ####[facility] [address] [place], [address] MCV Normal 81-99 [facility] Comment on above: Result Comment: Canc elled via OM: Order cancelled - Patient discharged Performed By: #### L 100.0100, L500.2500 ####[facility] [address] [place], [address] NEUT% Normal 47-70 [facility] Comment on above: Result Comment: Canc elled via OM: Order cancelled - Patient discharged Performed By: #### L 100.0100, L500.2500 ####[facility] [address] [place], [address] PLT Normal 150-450 [facility] Comment on above: Result Comment: Canc elled via OM: Order cancelled - Patient discharged Performed By: #### L 100.0100, L500.2500 ####[facility] [address] [place], [address] RBC Normal 4.2-5.4 [facility] Comment on above: Result Comment: Canc elled via OM: Order cancelled - Patient discharged Performed By: #### L 100.0100, L500.2500 ####[facility] [address] [place], [address] RDW CV Normal 11.6-14.6 [facility] Comment on above: Result Comment: Canc elled via OM: Order cancelled - Patient discharged Performed By: #### L 100.0100, L500.2500 ####[facility] [address] [place], [address] RDW SD Normal 35.1-43.9 [facility] Comment on above: Result Comment: Canc elled via OM: Order cancelled - Patient discharged Performed By: #### L 100.0100, L500.2500 ####[facility] [address] [place], [address] WBC Normal 4.4-11.0 [facility] Comment on above: Result Comment: Canc elled via OM: Order cancelled - Patient discharged Performed By: #### L 100.0100, L500.2500 ####[facility] [address] [place], [address] Absolute neutrophil countOrd ered By: Montse Cabrera on 12-11-2024 Neutrophils (Bld) [#/Vol] 5.7 10*3/uL 2.0-7.7 [facility] Anion gap in Serum or Plasma Ordered By: Montse Cabrera on 12-11-2024 Anion gap [Moles/Vol] 12 mmol/L 02-05 [facility] BUN/creatinine ratioOrdered By: Montse Cabrera on 12-11-2024 Urea nitrogen/Creatinine [Mass ratio] 24.2 mg/mg High 07-13 [facility] Basic Metabolic Profile (BMP )on 12-11-2024 BUN/CRE 24.2 RATIO High 10-20 [facility] Comment on above: Performed By: #### L 500.2500, L100.0100 ####[facility] [address] [place], [address] Calcium [Mass/Vol] 9.1 mg/dL Normal 7.6-11.0 [facility] Comment on above: Performed By: #### L 500.2500, L100.0100 ####[facility] [address] [place], [address] Chloride [Moles/Vol] 91 mmol/L Low 98-108 [facility] Comment on above: Performed By: #### L 500.2500, L100.0100 ####[facility] [address] [place], [address] CO2 [Moles/Vol] 18.5 mmol/L Low 21.0-32.0 [facility] Comment on above: Performed By: #### L 500.2500, L100.0100 ####[facility] [address] [place], [address] Creatinine [Mass/Vol] 0.95 mg/dL Normal 0.70-1.20 [facility] Comment on above: Performed By: #### L 500.2500, L100.0100 ####[facility] [address] [place], [address] ECRCL 49.52 ml/min Low 50-250 [facility] Comment on above: Performed By: #### L 500.2500, L100.0100 ####[facility] [address] [place], [address] GAP 12 Normal 5-15 [facility] Comment on above: Performed By: #### L 500.2500, L100.0100 ####[facility] [address] [place], [address] GFR/1.73 sq M.predicted among non-blacks MDRD (S/P/Bld) [Vol rate/Area] 60 mL/min/{1.73_m2} Normal >60 [facility] Comment on above: Result Comment: mL/m in/1.73m2 CKD-EPI Creatinine Equation (2020) Performed By: #### L 500.2500, L100.0100 ####[facility] [address] [place], [address] Glucose [Mass/Vol] 108 mg/dL High 70-99 [facility] Comment on above: Performed By: #### L 500.2500, L100.0100 ####[facility] [address] [place], [address] Potassium [Moles/Vol] 4.7 mmol/L Normal 3.3-5.1 [facility] Comment on above: Performed By: #### L 500.2500, L100.0100 ####[facility] [address] [place], [address] Sodium [Moles/Vol] 122 mmol/L Low 133-145 [facility] Comment on above: Performed By: #### L 500.2500, L100.0100 ####[facility] [address] [place], [address] Urea nitrogen [Mass/Vol] 23 mg/dL High 4-19 [facility] Comment on above: Performed By: #### L 500.2500, L100.0100 ####[facility] [address] [place], [address] Basophil percentageOrdered B y: Montse Cabrera on 12-11-2024 Basophils/100 WBC (Bld) 0.4 % 0-1 [facility] CBC W/Diff, Automatedon 11-23 Absolute Lymph 0.65 X10 3/uL Low 0.83-4.51 [facility] Comment on above: Performed By: #### L 500.2500, L100.0100 ####[facility] [address] [place], [address] Absolute Neut 5.7 X10 3/uL Normal 2.0-7.7 [facility] Comment on above: Performed By: #### L 500.2500, L100.0100 ####[facility] [address] [place], [address] Basophils/100 WBC (Bld) 0.4 % Normal 0-1 [facility] Comment on above: Performed By: #### L 500.2500, L100.0100 ####[facility] [address] [place], [address] Eosinophils/100 WBC (Bld) 1.5 % Normal 0-5 [facility] Comment on above: Performed By: #### L 500.2500, L100.0100 ####[facility] [address] [place], [address] Erythrocyte distribution width (RBC) [Ratio] 12.7 % Normal 11.6-14.6 [facility] Comment on above: Performed By: #### L 500.2500, L100.0100 ####[facility] [address] [place], [address] Hematocrit (Bld) [Volume fraction] 35.0 % Low 37-47 [facility] Comment on above: Performed By: #### L 500.2500, L100.0100 ####[facility] [address] [place], [address] Hemoglobin (Bld) [Mass/Vol] 12.0 g/dL Normal 12.0-15.0 [facility] Comment on above: Performed By: #### L 500.2500, L100.0100 ####[facility] [address] [place], [address] IG% 0.700 Normal 0.0-0.9 [facility] Comment on above: Result Comment: IG% - Immature Granulocytes (promyelocytes, myelocytes andmetamyelocytes) > 1% indicates that a LEFT SHIFT is Present. Performed By: #### L 500.2500, L100.0100 ####[facility] [address] [place], [address] Lymphocytes/100 WBC (Bld) 9.1 % Low 19-41 [facility] Comment on above: Performed By: #### L 500.2500, L100.0100 ####[facility] [address] [place], [address] MCH (RBC) [Entitic mass] 29.3 pg Normal 27.0-32.0 [facility] Comment on above: Performed By: #### L 500.2500, L100.0100 ####[facility] [address] [place], [address] MCHC (RBC) [Mass/Vol] 34.3 g/dL Normal 32-36 [facility] Comment on above: Performed By: #### L 500.2500, L100.0100 ####[facility] [address] [place], [address] MCV (RBC) [Entitic vol] 85.6 fL Normal 81-99 [facility] Comment on above: Performed By: #### L 500.2500, L100.0100 ####[facility] [address] [place], [address] Monocytes/100 WBC (Bld) 8.5 % Normal 0-10 [facility] Comment on above: Performed By: #### L 500.2500, L100.0100 ####[facility] [address] [place], [address] Neutrophils/100 WBC (Bld) 79.8 % High 47-70 [facility] Comment on above: Performed By: #### L 500.2500, L100.0100 ####[facility] [address] [place], [address] Nucleated RBC (Bld) [#/Vol] 0 10*3/uL Normal 0-5 [facility] Comment on above: Performed By: #### L 500.2500, L100.0100 ####[facility] [address] [place], [address] Platelet mean volume (Bld) [Entitic vol] 9.8 fL Normal 6.2-12.0 [facility] Comment on above: Performed By: #### L 500.2500, L100.0100 ####[facility] [address] [place], [address] Platelets (Bld) [#/Vol] 277 10*3/uL Normal 150-450 [facility] Comment on above: Performed By: #### L 500.2500, L100.0100 ####[facility] [address] [place], [address] RBC (Bld) [#/Vol] 4.09 10*6/uL Low 4.2-5.4 [facility] Comment on above: Performed By: #### L 500.2500, L100.0100 ####[facility] [address] [place], [address] RDW SD 39.5 fl Normal 35.1-43.9 [facility] Comment on above: Performed By: #### L 500.2500, L100.0100 ####[facility] [address] [place], [address] WBC (Bld) [#/Vol] 7.2 10*3/uL Normal 4.4-11.0 [facility] Comment on above: Performed By: #### L 500.2500, L100.0100 ####[facility] [address] [place], [address] Carbon dioxide, total [Moles /volume] in Central venous bloodOrdered By: Montse Cabrera on 12-11-2024 CO2 [Moles/Vol] 18.5 mmol/L Low 21.0-32.0 [facility] Chloride assayOrdered By: Na na Rick on 12-11-2024 Chloride [Moles/Vol] 91 mmol/L Low 98-108 [facility] Eosinophil percentageOrdered By: Montse Cabrera on 12-11-2024 Eosinophils/100 WBC (Bld) 1.5 % 0-5 [facility] Erythrocyte distribution wid th ratioOrdered By: Montse Cabrera 12-11-2024 Erythrocyte distribution width (RBC) [Ratio] 12.7 % 11.6-14.6 [facility] Erythrocyte distribution wid th standard deviationOrdered By: Montse Cabrera on 12-11-2024 Erythrocyte distribution width (RBC) [Entitic vol] 39.5 fL 35.1-43.9 [facility] Estimation of creatinine clemencia aranceOrdered By: Montse Cabrera on 12-11-2024 Estimated Creatinine Clearance Calc 49.52 ml/min Low 50-250 [facility] GFR/1.73 sq M.predicted stephen g non-blacks MDRD (S/P/Bld) [Vol rate/Area]Ordered By: Montse Cabrera 12-11-2024 Estimated GFR (MDRD) Non-Af Amer [address] >60 [facility] Comment on above: mL/min/1.73m2 CKD-EP I Creatinine Equation (2020) Hematocrit Auto (Bld) [Volum e fraction]Ordered By: Montse Cabrera on 12-11-2024 Hematocrit (Bld) [Volume fraction] 35.0 % Low 37-47 [facility] Hemoglobin measurementOrdere d By: Montse Cabrera 12-11-2024 Hemoglobin (Bld) [Mass/Vol] 12.0 g/dL 12.0-15.0 [facility] Immature granulocytes/100 WB C Auto (Bld)Ordered By: Montse Cabrera 12-11-2024 Immature granulocytes/100 WBC (Bld) 0.700 % 0.0-0.9 [facility] Comment on above: IG% - Immature Granu locytes (promyelocytes, myelocytes and metamyelocytes) > 1% indicates that a LEFT SHIFT is Present. Lymphocytes Auto (Unsp spec) [#/Vol]Ordered By: Montse Cabrera on 12-11-2024 Lymphocytes (Bld) [#/Vol] 0.65 10*3/uL Low 0.83-4.51 [facility] Lymphocytes/100 WBC Auto (Un sp spec)Ordered By: Montse Cabrera on 12-11-2024 Lymphocytes/100 WBC (Bld) 9.1 % Low 19-41 [facility] MCV (mean corpuscular volume ) determinationOrdered By: Montse Cabrera on 12-11-2024 MCV (RBC) [Entitic vol] 85.6 fL 81-99 [facility] Mean corpuscular hemoglobin (MCH) determinationOrdered By: Montse Cabrera on 12-11-2024 MCH (RBC) [Entitic mass] 29.3 pg 27.0-32.0 [facility] Mean corpuscular hemoglobin concentration (MCHC) determinationOrdered By: Montse Cabrera on 12-11-2024 MCHC (RBC) [Mass/Vol] 34.3 g/dL 32-36 [facility] Mean platelet volume determi nationOrdered By: Montse Cabrera on 12-11-2024 Platelet mean volume (Bld) [Entitic vol] 9.8 fL 6.2-12.0 [facility] Monocyte percentageOrdered B y: Montse Cabrera on 12-11-2024 Monocytes/100 WBC (Bld) 8.5 % 0-10 [facility] Neutrophil percentageOrdered By: Montse Cabrera on 12-11-2024 Neutrophils/100 WBC (Bld) 79.8 % High 47-70 [facility] Nucleated red blood cell per centageOrdered By: Montse Cabrera on 12-11-2024 Nucleated RBC/100 WBC (Bld) [Ratio] 0 % 0-5 [facility] Platelet countOrdered By: Neela Cabrera on 12-11-2024 Platelets (Bld) [#/Vol] 277 10*3/uL 150-450 [facility] Potassium (Unsp spec) [Mass/ Vol]Ordered By: Montse Cabrera on 12-11-2024 Potassium [Moles/Vol] 4.7 mmol/L 3.3-5.1 [facility] RBC Auto (Bld) [#/Vol]Ordere d By: Montse Veronicamaddie on 12-11-2024 RBC (Bld) [#/Vol] 4.09 10*6/uL Low 4.2-5.4 [facility] Serum creatinine measurement (mass/volume)Ordered By: Montse Cabrera on 12-11-2024 Creatinine [Mass/Vol] 0.95 mg/dL 0.70-1.20 [facility] Serum glucose measurement (m ass/volume)Ordered By: Montse Cabrera on 12-11-2024 Glucose [Mass/Vol] 108 mg/dL High 70-99 [facility] Serum or plasma calcium cindy urement (mass/volume)Ordered By: Montse Cabrera on 12-11-2024 Calcium [Mass/Vol] 9.1 mg/dL 7.6-11.0 [facility] Serum or plasma urea nitroge n measurement (mass/volume)Ordered By: Montse Cabrera on 12-11-2024 Urea nitrogen [Mass/Vol] 23 mg/dL High 4- [facility] Sodium levelOrdered By: Montseannmarie Cabrera on 12-11-2024 Sodium [Moles/Vol] 122 mmol/L Low 133-145 [facility] White blood cell (WBC) count Ordered By: Montse Cabrera on 12-11-2024 WBC (Bld) [#/Vol] 7.2 10*3/uL 4.4-11.0 [facility] Basic Metabolic Profile (BMP )on 12-10-2024 BUN/CRE 28.0 RATIO High 10- [facility] Comment on above: Performed By: #### L 500.2500 ####[facility] [address] [place], [place], [address] Calcium [Mass/Vol] 8.8 mg/dL Normal 7.6-11.0 [facility] Comment on above: Performed By: #### L 500.2500 ####[facility] [address] [place], [address] Chloride [Moles/Vol] 88 mmol/L Low 98-108 [facility] Comment on above: Performed By: #### L 500.2500 ####[facility] [address] [place], [address] CO2 [Moles/Vol] 18.5 mmol/L Low 21.0-32.0 [facility] Comment on above: Performed By: #### L 500.2500 ####[facility] [address] [place], [address] Creatinine [Mass/Vol] 0.67 mg/dL Low 0.70-1.20 [facility] Comment on above: Performed By: #### L 500.2500 ####[facility] [address] [place], [address] ECRCL 58.80 ml/min Normal 50-250 [facility] Comment on above: Performed By: #### L 500.2500 ####[facility] [address] [place], [address] GAP 12 Normal 5-15 [facility] Comment on above: Performed By: #### L 500.2500 ####[facility] [address] [place], [address] GFR/1.73 sq M.predicted among non-blacks MDRD (S/P/Bld) [Vol rate/Area] 88 mL/min/{1.73_m2} Normal >60 [facility] Comment on above: Result Comment: mL/m in/1.73m2 CKD-EPI Creatinine Equation (2020) Performed By: #### L 500.2500 ####[facility] [address] [place], [address] Glucose [Mass/Vol] 110 mg/dL High 70-99 [facility] Comment on above: Performed By: #### L 500.2500 ####[facility] [address] [place], [address] Potassium [Moles/Vol] 4.4 mmol/L Normal 3.3-5.1 [facility] Comment on above: Performed By: #### L 500.2500 ####[facility] [address] [place], [address] Sodium [Moles/Vol] 118 mmol/L Invalid Interpretation Code 133-145 [facility] Comment on above: Result Comment: Crit ical Result(s) Called at 1534: TO KSHANK by:KCLAPPER??Results read back by same. Performed By: #### L 500.2500 ####[facility] [address] [place], [address] Urea nitrogen [Mass/Vol] 19 mg/dL Normal 4-19 [facility] Comment on above: Performed By: #### L 500.2500 ####[facility] [address] [place], [address] BUN/CRE 29.0 RATIO High 10-20 [facility] Comment on above: Performed By: #### L 100.0100, L500.2500 ####[facility] [address] [place], [address] Calcium [Mass/Vol] 8.6 mg/dL Normal 7.6-11.0 [facility] Comment on above: Performed By: #### L 100.0100, L500.2500 ####[facility] [address] [place], [address] Chloride [Moles/Vol] 91 mmol/L Low 98-108 [facility] Comment on above: Performed By: #### L 100.0100, L500.2500 ####[facility] [address] [place], [address] CO2 [Moles/Vol] 19.4 mmol/L Low 21.0-32.0 [facility] Comment on above: Performed By: #### L 100.0100, L500.2500 ####[facility] [address] [place], [address] Creatinine [Mass/Vol] 0.70 mg/dL Normal 0.70-1.20 [facility] Comment on above: Performed By: #### L 100.0100, L500.2500 ####[facility] [address] [place], [address] ECRCL 58.80 ml/min Normal 50-250 [facility] Comment on above: Performed By: #### L 100.0100, L500.2500 ####[facility] [address] [place], [address] GAP 9 Normal 5-15 [facility] Comment on above: Performed By: #### L 100.0100, L500.2500 ####[facility] [address] [place], [address] GFR/1.73 sq M.predicted among non-blacks MDRD (S/P/Bld) [Vol rate/Area] 87 mL/min/{1.73_m2} Normal >60 [facility] Comment on above: Result Comment: mL/m in/1.73m2 CKD-EPI Creatinine Equation (2020) Performed By: #### L 100.0100, L500.2500 ####[facility] [address] [place], [address] Glucose [Mass/Vol] 111 mg/dL High 70-99 [facility] Comment on above: Performed By: #### L 100.0100, L500.2500 ####[facility] [address] [place], [address] Potassium [Moles/Vol] 4.5 mmol/L Normal 3.3-5.1 [facility] Comment on above: Performed By: #### L 100.0100, L500.2500 ####[facility] [address] [place], [address] Sodium [Moles/Vol] 119 mmol/L Invalid Interpretation Code 133-145 [facility] Comment on above: Result Comment: Crit ical Result(s) Called at:0625by: MIREYA HAVEN TO MANUEL??Results read back by same. Performed By: #### L 100.0100, L500.2500 ####[facility] [address] [place], [address] Urea nitrogen [Mass/Vol] 20 mg/dL High 4-19 [facility] Comment on above: Performed By: #### L 100.0100, L500.2500 ####[facility] [address] [place], [address] CBC W/Diff, Automatedon 11-22 Absolute Lymph 0.92 X10 3/uL Normal 0.83-4.51 [facility] Comment on above: Performed By: #### L 100.0100, L500.2500 ####[facility] [address] [place], [address] Absolute Neut 5.5 X10 3/uL Normal 2.0-7.7 [facility] Comment on above: Performed By: #### L 100.0100, L500.2500 ####[facility] [address] [place], [address] Basophils/100 WBC (Bld) 0.3 % Normal 0-1 [facility] Comment on above: Performed By: #### L 100.0100, L500.2500 ####[facility] [address] [place], [address] Eosinophils/100 WBC (Bld) 2.5 % Normal 0-5 [facility] Comment on above: Performed By: #### L 100.0100, L500.2500 ####[facility] [address] [place], [address] Erythrocyte distribution width (RBC) [Ratio] 12.8 % Normal 11.6-14.6 [facility] Comment on above: Performed By: #### L 100.0100, L500.2500 ####[facility] [address] [place], [address] Hematocrit (Bld) [Volume fraction] 34.0 % Low 37-47 [facility] Comment on above: Performed By: #### L 100.0100, L500.2500 ####[facility] [address] [place], [address] Hemoglobin (Bld) [Mass/Vol] 11.7 g/dL Low 12.0-15.0 [facility] Comment on above: Performed By: #### L 100.0100, L500.2500 ####[facility] [address] [place], [address] IG% 0.400 Normal 0.0-0.9 [facility] Comment on above: Result Comment: IG% - Immature Granulocytes (promyelocytes, myelocytes andmetamyelocytes) > 1% indicates that a LEFT SHIFT is Present. Performed By: #### L 100.0100, L500.2500 ####[facility] [address] [place], [address] Lymphocytes/100 WBC (Bld) 12.7 % Low 19-41 [facility] Comment on above: Performed By: #### L 100.0100, L500.2500 ####[facility] [address] [place], [address] MCH (RBC) [Entitic mass] 29.1 pg Normal 27.0-32.0 [facility] Comment on above: Performed By: #### L 100.0100, L500.2500 ####[facility] [address] [place], [address] MCHC (RBC) [Mass/Vol] 34.4 g/dL Normal 32-36 [facility] Comment on above: Performed By: #### L 100.0100, L500.2500 ####[facility] [address] [place], [address] MCV (RBC) [Entitic vol] 84.6 fL Normal 81-99 [facility] Comment on above: Performed By: #### L 100.0100, L500.2500 ####[facility] [address] [place], [address] Monocytes/100 WBC (Bld) 8.1 % Normal 0-10 [facility] Comment on above: Performed By: #### L 100.0100, L500.2500 ####[facility] [address] [place], [address] Neutrophils/100 WBC (Bld) 76.0 % High 47-70 [facility] Comment on above: Performed By: #### L 100.0100, L500.2500 ####[facility] [address] [place], [address] Nucleated RBC (Bld) [#/Vol] 0 10*3/uL Normal 0-5 [facility] Comment on above: Performed By: #### L 100.0100, L500.2500 ####[facility] [address] [place], [address] Platelet mean volume (Bld) [Entitic vol] 9.5 fL Normal 6.2-12.0 [facility] Comment on above: Performed By: #### L 100.0100, L500.2500 ####[facility] [address] [place], [address] Platelets (Bld) [#/Vol] 255 10*3/uL Normal 150-450 [facility] Comment on above: Performed By: #### L 100.0100, L500.2500 ####[facility] [address] [place], [address] RBC (Bld) [#/Vol] 4.02 10*6/uL Low 4.2-5.4 [facility] [facility] Comment on above: Performed By: #### L 100.0100, L500.2500 ####[facility] [address] [place], [address] RDW SD 39.2 fl Normal 35.1-43.9 [facility] Comment on above: Performed By: #### L 100.0100, L500.2500 ####[facility] [address] [place], [address] WBC (Bld) [#/Vol] 7.3 10*3/uL Normal 4.4-11.0 [facility] Comment on above: Performed By: #### L 100.0100, L500.2500 ####[facility] [address] [place], [address] Consultation - Nephrologyon 12-10-2024 Consultation - Nephrology Normal [facility] Basic Metabolic Profile (BMP )on 12-09-2024 BUN/CRE 30.0 RATIO High 10-20 [facility] Comment on above: Performed By: #### L 500.2500 ####[facility] [address] [place], [address] Calcium [Mass/Vol] 8.8 mg/dL Normal 7.6-11.0 [facility] Comment on above: Performed By: #### L 500.2500 ####[facility] [address] [place], [address] Chloride [Moles/Vol] 89 mmol/L Low 98-108 [facility] Comment on above: Performed By: #### L 500.2500 ####[facility] [address] [place], [address] CO2 [Moles/Vol] 21.0 mmol/L Normal 21.0-32.0 [facility] Comment on above: Performed By: #### L 500.2500 ####[facility] [address] [place], [address] Creatinine [Mass/Vol] 0.75 mg/dL Normal 0.70-1.20 [facility] Comment on above: Performed By: #### L 500.2500 ####[facility] [address] [place], [address] ECRCL 58.80 ml/min Normal 50-250 [facility] Comment on above: Performed By: #### L 500.2500 ####[facility] [address] [place], [address] GAP 8 Normal 5-15 [facility] Comment on above: Performed By: #### L 500.2500 ####[facility] [address] [place], [address] GFR/1.73 sq M.predicted among non-blacks MDRD (S/P/Bld) [Vol rate/Area] 80 mL/min/{1.73_m2} Normal >60 [facility] Comment on above: Result Comment: mL/m in/1.73m2 CKD-EPI Creatinine Equation (2020) Performed By: #### L 500.2500 ####[facility] [address] [place], [address] Glucose [Mass/Vol] 105 mg/dL High 70-99 [facility] Comment on above: Performed By: #### L 500.2500 ####[facility] [address] [place], [address] Potassium [Moles/Vol] 4.4 mmol/L Normal 3.3-5.1 [facility] Comment on above: Performed By: #### L 500.2500 ####[facility] [address] [place], [address] Sodium [Moles/Vol] 118 mmol/L Invalid Interpretation Code 133-145 [facility] Comment on above: Result Comment: Crit ical Result(s) Called ACOLE at: 1605 by:PHILLIP??Results read back by same. Performed By: #### L 500.2500 ####[facility] [address] [place], [address] Urea nitrogen [Mass/Vol] 22 mg/dL High 4-19 [facility] Comment on above: Performed By: #### L 500.2500 ####[facility] [address] [place], [address] Osmolality (U) [Osmolality]O rdered By: Montse Cabrera on 12-09-2024 Urine Osmolality 661 mOsm/KG >50 [facility] Comment on above: Normal Urine Referen ce Ranges Random: 50 - 1200 mOsm/kg H20 depending on fluid intake Random: >850 mOsm/kg after 12 hour fluid restriction 24 hour: ~300 - 900 mOsm/kg H2O Osmolality, Serumon 12-10-19 25 OSMOLALITY,SER 257 mOsm/KG Low 280-301 [facility] Comment on above: Performed By: #### L 501.7300 ####[facility] [address] [facility] [place], [address] Osmolality, Urineon 12-10-19 25 OSMOLALITY,UR 661 mOsm/KG Normal [facility] Comment on above: Result Comment: Norm al Urine Reference Ranges Random: 50 - 1200 mOsm/kg H20 depending on fluid intake Random: >850 mOsm/kg after 12 hour fluid restriction 24 hour: 300 - 900 mOsm/kg H2O Performed By: #### L 501.7400, L501.5500 ####[facility] [address] [facility] [place], [address] Osmolality, serumOrdered By: Montse Cabrera on 12-09-2024 Serum Osmolality 257 mOsm/KG Low 280-301 [facility] Sodium Levelon 12-09-2024 Sodium [Moles/Vol] 118 mmol/L Invalid Interpretation Code 133-145 [facility] Comment on above: Result Comment: Crit ical Result(s) Called at:2320 by: MIREYA MORALES??Results read back by same. Performed By: #### L 501.5300 ####[facility] [address] [place], [address] Urine sodium measurement (mo les/volume)Ordered By: Montse Cabrera on 12-09-2024 Sodium (U) [Moles/Vol] 22 mmol/L Normal Not Establ. [facility] Comment on above: Performed By: #### L 501.7400, L501.5500 ####[facility] [address] [place], [address] Basic Metabolic Profile (BMP )on 12-08-2024 BUN/CRE 30.4 RATIO High 10-20 [facility] Comment on above: Performed By: #### L 500.2500, L100.0100 ####[facility] [address] [place], [address] Calcium [Mass/Vol] 9.0 mg/dL Normal 7.6-11.0 [facility] Comment on above: Performed By: #### L 500.2500, L100.0100 ####[facility] [address] [place], [address] Chloride [Moles/Vol] 94 mmol/L Low 98-108 [facility] Comment on above: Performed By: #### L 500.2500, L100.0100 ####[facility] [address] [place], [address] CO2 [Moles/Vol] 22.7 mmol/L Normal 21.0-32.0 [facility] Comment on above: Performed By: #### L 500.2500, L100.0100 ####[facility] [address] [place], [address] Creatinine [Mass/Vol] 0.84 mg/dL Normal 0.70-1.20 [facility] Comment on above: Performed By: #### L 500.2500, L100.0100 ####[facility] [address] [place], [address] ECRCL 56.00 ml/min Normal 50-250 [facility] Comment on above: Performed By: #### L 500.2500, L100.0100 ####[facility] [address] [place], [address] GAP 9 Normal 5-15 [facility] Comment on above: Performed By: #### L 500.2500, L100.0100 ####[facility] [address] [place], [address] GFR/1.73 sq M.predicted among non-blacks MDRD (S/P/Bld) [Vol rate/Area] 70 mL/min/{1.73_m2} Normal >60 [facility] Comment on above: Result Comment: mL/m in/1.73m2 CKD-EPI Creatinine Equation (2020) Performed By: #### L 500.2500, L100.0100 ####[facility] [address] [place], [address] Glucose [Mass/Vol] 134 mg/dL High 70-99 [facility] Comment on above: Performed By: #### L 500.2500, L100.0100 ####[facility] [address] [place], [address] Potassium [Moles/Vol] 3.8 mmol/L Normal 3.3-5.1 [facility] Comment on above: Performed By: #### L 500.2500, L100.0100 ####[facility] [address] [place], [address] Sodium [Moles/Vol] 125 mmol/L Low 133-145 [facility] Comment on above: Performed By: #### L 500.2500, L100.0100 ####[facility] [address] [place], [address] Urea nitrogen [Mass/Vol] 26 mg/dL High 4-19 [facility] Comment on above: Performed By: #### L 500.2500, L100.0100 ####[facility] [address] [place], [address] CBC W/Diff, Automatedon 11-22 Absolute Lymph 0.99 X10 3/uL Normal 0.83-4.51 [facility] Comment on above: Performed By: #### L 500.2500, L100.0100 ####[facility] [address] [place], [address] Absolute Neut 7.0 X10 3/uL Normal 2.0-7.7 [facility] Comment on above: Performed By: #### L 500.2500, L100.0100 ####[facility] [address] [place], [address] Basophils/100 WBC (Bld) 0.2 % Normal 0-1 [facility] Comment on above: Performed By: #### L 500.2500, L100.0100 ####[facility] [address] [place], [address] Eosinophils/100 WBC (Bld) 1.4 % Normal 0-5 [facility] Comment on above: Performed By: #### L 500.2500, L100.0100 ####[facility] [address] [place], [address] Erythrocyte distribution width (RBC) [Ratio] 13.0 % Normal 11.6-14.6 [facility] Comment on above: Performed By: #### L 500.2500, L100.0100 ####[facility] [address] [place], [address] Hematocrit (Bld) [Volume fraction] 37.9 % Normal 37-47 [facility] Comment on above: Performed By: #### L 500.2500, L100.0100 ####[facility] [address] [place], [address] Hemoglobin (Bld) [Mass/Vol] 12.6 g/dL Normal 12.0-15.0 [facility] Comment on above: Performed By: #### L 500.2500, L100.0100 ####[facility] [address] [place], [address] IG% 0.300 Normal 0.0-0.9 [facility] Comment on above: Result Comment: IG% - Immature Granulocytes (promyelocytes, myelocytes andmetamyelocytes) > 1% indicates that a LEFT SHIFT is Present. Performed By: #### L 500.2500, L100.0100 ####[facility] [address] [place], [address] Lymphocytes/100 WBC (Bld) 11.2 % Low 19-41 [facility] Comment on above: Performed By: #### L 500.2500, L100.0100 ####[facility] [address] [place], [address] MCH (RBC) [Entitic mass] 29.2 pg Normal 27.0-32.0 [facility] Comment on above: Performed By: #### L 500.2500, L100.0100 ####[facility] [address] [place], [address] MCHC (RBC) [Mass/Vol] 33.2 g/dL Normal 32-36 [facility] Comment on above: Performed By: #### L 500.2500, L100.0100 ####[facility] [address] [place], [address] MCV (RBC) [Entitic vol] 87.9 fL Normal 81-99 [facility] Comment on above: Performed By: #### L 500.2500, L100.0100 ####[facility] [address] [place], [address] Monocytes/100 WBC (Bld) 7.2 % Normal 0-10 [facility] Comment on above: Performed By: #### L 500.2500, L100.0100 ####[facility] [address] [place], [address] Neutrophils/100 WBC (Bld) 79.7 % High 47-70 [facility] Comment on above: Performed By: #### L 500.2500, L100.0100 ####[facility] [address] [place], [address] Nucleated RBC (Bld) [#/Vol] 0 10*3/uL Normal 0-5 [facility] Comment on above: Performed By: #### L 500.2500, L100.0100 ####[facility] [address] [place], [address] Platelet mean volume (Bld) [Entitic vol] 9.3 fL Normal 6.2-12.0 [facility] Comment on above: Performed By: #### L 500.2500, L100.0100 ####[facility] [address] [place], [address] Platelets (Bld) [#/Vol] 248 10*3/uL Normal 150-450 [facility] Comment on above: Performed By: #### L 500.2500, L100.0100 ####[facility] [address] [place], [address] RBC (Bld) [#/Vol] 4.31 10*6/uL Normal 4.2-5.4 [facility] Comment on above: Performed By: #### L 500.2500, L100.0100 ####[facility] [address] [place], [address] RDW SD 42.1 fl Normal 35.1-43.9 [facility] Comment on above: Performed By: #### L 500.2500, L100.0100 ####[facility] [address] [place], [address] WBC (Bld) [#/Vol] 8.8 10*3/uL Normal 4.4-11.0 [facility] Comment on above: Performed By: #### L 500.2500, L100.0100 ####[facility] [address] [place], [address] Electrocardiogram reportOrde red By: Wally So on 12-08-2024 EKG study [facility] [address] [place] [address] 12 Lead EKG 12/06/24 1749 MR#: [id number] Acct: [id number] Name: JERO LEWIS Rep #:[id number] : 1945 79 From: Wally So MD Attending Dr: Dr. Montse Cabrera MD Status: ADM IN Ordering Dr: Rita Nowak Date: 12/06/24 Location: [facility] Sex: F C Admitted: 12/06/24 Test [...] Abnormal ECG Confirmed by WALLY SO MD ([id number]), assistant editor SHALINI LOUIS ([id number]) on 12/08/2024 8:18:25 AM Referred By: [facility] Confirmed By: WALLY OS MD 12/08/24 0818 Date _ Wally So MD CC: Dr. Argelia Darby DO; Dr. Montse Cabrera MD; MEKHI Raza ~ Signed [facility] Other Phone: Bilirubin directOrdered By: Sandro Jackman on 12-07-2024 Bilirubin.direct [Mass/Vol] 0.29 mg/dL 0.00-0.30 [facility] Bilirubin, Directon 12-08-19 25 Bilirubin.direct [Mass/Vol] 0.29 mg/dL Normal 0.00-0.30 [facility] Comment on above: Performed By: #### L 501.5200, L501.2300, L100.0100, L501.4700, L500.4050, L300.3900, L501.9520 ####[facility] [address] [place], [place], [phone](060) Bilirubin, totalOrdered By: Sandro Jackman on 12-07-2024 Bilirubin [Mass/Vol] 0.68 mg/dL 0.00-1.30 [facility] CBC W/Diff, Automatedon 11-22 Absolute Lymph 0.97 X10 3/uL Normal 0.83-4.51 [facility] Comment on above: Performed By: #### L 501.5200, L501.2300, L100.0100, L501.4700, L500.4050, L300.3900, L501.9520 ####[facility] [address] [place], [place], [phone] Absolute Neut 5.7 X10 3/uL Normal 2.0-7.7 [facility] Comment on above: Performed By: #### L 501.5200, L501.2300, L100.0100, L501.4700, L500.4050, L300.3900, L501.9520 ####[facility] [address] [place], [place], [phone](782) Basophils/100 WBC (Bld) 0.3 % Normal 0-1 [facility] Comment on above: Performed By: #### L 501.5200, L501.2300, L100.0100, L501.4700, L500.4050, L300.3900, L501.9520 ####[facility] [address] [place], [address] Eosinophils/100 WBC (Bld) 0.4 % Normal 0-5 [facility] Comment on above: Performed By: #### L 501.5200, L501.2300, L100.0100, L501.4700, L500.4050, L300.3900, L501.9520 ####[facility] [address] [place], [address] Erythrocyte distribution width (RBC) [Ratio] 13.0 % Normal 11.6-14.6 [facility] Comment on above: Performed By: #### L 501.5200, L501.2300, L100.0100, L501.4700, L500.4050, L300.3900, L501.9520 ####[facility] [address] [place], [address] Hematocrit (Bld) [Volume fraction] 39.0 % Normal 37-47 [facility] Comment on above: Performed By: #### L 501.5200, L501.2300, L100.0100, L501.4700, L500.4050, L300.3900, L501.9520 ####[facility] [address] [place], [address] Hemoglobin (Bld) [Mass/Vol] 12.9 g/dL Normal 12.0-15.0 [facility] Comment on above: Performed By: #### L 501.5200, L501.2300, L100.0100, L501.4700, L500.4050, L300.3900, L501.9520 ####[facility] [address] [place], [address] IG% 0.400 Normal 0.0-0.9 [facility] Comment on above: Result Comment: IG% - Immature Granulocytes (promyelocytes, myelocytes andmetamyelocytes) > 1% indicates that a LEFT SHIFT is Present. Performed By: #### L 501.5200, L501.2300, L100.0100, L501.4700, L500.4050, L300.3900, L501.9520 ####[facility] [address] [place], [address] Lymphocytes/100 WBC (Bld) 13.1 % Low 19-41 [facility] Comment on above: Performed By: #### L 501.5200, L501.2300, L100.0100, L501.4700, L500.4050, L300.3900, L501.9520 ####[facility] [address] [place], [address] MCH (RBC) [Entitic mass] 29.3 pg Normal 27.0-32.0 [facility] Comment on above: Performed By: #### L 501.5200, L501.2300, L100.0100, L501.4700, L500.4050, L300.3900, L501.9520 ####[facility] [address] [place], [address] MCHC (RBC) [Mass/Vol] 33.1 g/dL Normal 32-36 [facility] Comment on above: Performed By: #### L 501.5200, L501.2300, L100.0100, L501.4700, L500.4050, L300.3900, L501.9520 ####[facility] [address] [place], [address] MCV (RBC) [Entitic vol] 88.6 fL Normal 81-99 [facility] Comment on above: Performed By: #### L 501.5200, L501.2300, L100.0100, L501.4700, L500.4050, L300.3900, L501.9520 ####[facility] [address] [place], [address] Monocytes/100 WBC (Bld) 8.3 % Normal 0-10 [facility] Comment on above: Performed By: #### L 501.5200, L501.2300, L100.0100, L501.4700, L500.4050, L300.3900, L501.9520 ####[facility] [address] [place], [address] Neutrophils/100 WBC (Bld) 77.5 % High 47-70 [facility] Comment on above: Performed By: #### L 501.5200, L501.2300, L100.0100, L501.4700, L500.4050, L300.3900, L501.9520 ####[facility] [address] [place], [address] Nucleated RBC (Bld) [#/Vol] 0 10*3/uL Normal 0-5 [facility] Comment on above: Performed By: #### L 501.5200, L501.2300, L100.0100, L501.4700, L500.4050, L300.3900, L501.9520 ####[facility] [address] [place], [address] Platelet mean volume (Bld) [Entitic vol] 9.7 fL Normal 6.2-12.0 [facility] Comment on above: Performed By: #### L 501.5200, L501.2300, L100.0100, L501.4700, L500.4050, L300.3900, L501.9520 ####[facility] [address] [place], [address] Platelets (Bld) [#/Vol] 263 10*3/uL Normal 150-450 [facility] Comment on above: Performed By: #### L 501.5200, L501.2300, L100.0100, L501.4700, L500.4050, L300.3900, L501.9520 ####[facility] [address] [place], [address] RBC (Bld) [#/Vol] 4.40 10*6/uL Normal 4.2-5.4 [facility] Comment on above: Performed By: #### L 501.5200, L501.2300, L100.0100, L501.4700, L500.4050, L300.3900, L501.9520 ####[facility] [address] [place], [address] RDW SD 42.5 fl Normal 35.1-43.9 [facility] Comment on above: Performed By: #### L 501.5200, L501.2300, L100.0100, L501.4700, L500.4050, L300.3900, L501.9520 ####[facility] [address] [place], [address] WBC (Bld) [#/Vol] 7.4 10*3/uL Normal 4.4-11.0 [facility] Comment on above: Performed By: #### L 501.5200, L501.2300, L100.0100, L501.4700, L500.4050, L300.3900, L501.9520 ####[facility] [address] [place], [address] Comprehensive Metabolic Prof ilon 12-07-2024 Albumin [Mass/Vol] 3.9 g/dL Normal 3.4-4.8 [facility] Comment on above: Performed By: #### L 501.5200, L501.2300, L100.0100, L501.4700, L500.4050, L300.3900, L501.9520 ####[facility] [address] [place], [address] Albumin/Globulin [Mass ratio] 1.6 {ratio} Normal 0.9-2.4 [facility] Comment on above: Performed By: #### L 501.5200, L501.2300, L100.0100, L501.4700, L500.4050, L300.3900, L501.9520 ####[facility] [address] [place], [address] ALK PHOS 66 U/L Normal 35-104 [facility] Comment on above: Performed By: #### L 501.5200, L501.2300, L100.0100, L501.4700, L500.4050, L300.3900, L501.9520 ####[facility] [address] [place], [address] ALT [Catalytic activity/Vol] 17 U/L Normal <=34 [facility] Comment on above: Performed By: #### L 501.5200, L501.2300, L100.0100, L501.4700, L500.4050, L300.3900, L501.9520 ####[facility] [address] [place], [address] AST [Catalytic activity/Vol] 33 U/L High <=31 [facility] Comment on above: Performed By: #### L 501.5200, L501.2300, L100.0100, L501.4700, L500.4050, L300.3900, L501.9520 ####[facility] [address] [place], [address] Bilirubin [Mass/Vol] 0.68 mg/dL Normal 0.00-1.30 [facility] Comment on above: Performed By: #### L 501.5200, L501.2300, L100.0100, L501.4700, L500.4050, L300.3900, L501.9520 ####[facility] [address] [place], [address] BUN/CRE 20.6 RATIO High 10-20 [facility] Comment on above: Performed By: #### L 501.5200, L501.2300, L100.0100, L501.4700, L500.4050, L300.3900, L501.9520 ####[facility] [address] [place], [address] Calcium [Mass/Vol] 9.3 mg/dL Normal 7.6-11.0 [facility] Comment on above: Performed By: #### L 501.5200, L501.2300, L100.0100, L501.4700, L500.4050, L300.3900, L501.9520 ####[facility] [address] [place], [address] Chloride [Moles/Vol] 97 mmol/L Low 98-108 [facility] Comment on above: Performed By: #### L 501.5200, L501.2300, L100.0100, L501.4700, L500.4050, L300.3900, L501.9520 ####[facility] [address] [place], [address] CO2 [Moles/Vol] 21.9 mmol/L Normal 21.0-32.0 [facility] Comment on above: Performed By: #### L 501.5200, L501.2300, L100.0100, L501.4700, L500.4050, L300.3900, L501.9520 ####[facility] [address] [place], [address] Creatinine [Mass/Vol] 0.93 mg/dL Normal 0.70-1.20 [facility] Comment on above: Performed By: #### L 501.5200, L501.2300, L100.0100, L501.4700, L500.4050, L300.3900, L501.9520 ####[facility] [address] [place], [address] ECRCL 50.58 ml/min Normal 50-250 [facility] Comment on above: Performed By: #### L 501.5200, L501.2300, L100.0100, L501.4700, L500.4050, L300.3900, L501.9520 ####[facility] [address] [place], [address] GAP 13 Normal 5-15 [facility] Comment on above: Performed By: #### L 501.5200, L501.2300, L100.0100, L501.4700, L500.4050, L300.3900, L501.9520 ####[facility] [address] [place], [address] GFR/1.73 sq M.predicted among non-blacks MDRD (S/P/Bld) [Vol rate/Area] 62 mL/min/{1.73_m2} Normal >60 [facility] Comment on above: Result Comment: mL/m in/1.73m2 CKD-EPI Creatinine Equation (2020) Performed By: #### L 501.5200, L501.2300, L100.0100, L501.4700, L500.4050, L300.3900, L501.9520 ####[facility] [address] [place], [address] Globulin (S) [Mass/Vol] 2.5 g/dL Normal 2.2-4.2 [facility] Comment on above: Performed By: #### L 501.5200, L501.2300, L100.0100, L501.4700, L500.4050, L300.3900, L501.9520 ####[facility] [address] [place], [address] Glucose [Mass/Vol] 98 mg/dL Normal 70-99 [facility] Comment on above: Performed By: #### L 501.5200, L501.2300, L100.0100, L501.4700, L500.4050, L300.3900, [id number] ####[facility] [address] [place], [address] Potassium [Moles/Vol] 4.2 mmol/L Normal 3.3-5.1 [facility] Comment on above: Result Comment: Hemo lysis present, Results??could be affected.?? Performed By: #### L 501.5200, L501.2300, L100.0100, L501.4700, L500.4050, L300.3900, [id number] ####[facility] [address] [place], [address] Sodium [Moles/Vol] 132 mmol/L Low 133-145 [facility] Comment on above: Performed By: #### L 501.5200, L501.2300, L100.0100, L501.4700, L500.4050, L300.3900, [id number] ####[facility] [address] [place], [address] T PROT 6.3 g/dL Normal 5.9-8.4 [facility] Comment on above: Performed By: #### L 501.5200, L501.2300, L100.0100, L501.4700, L500.4050, L300.3900, [id number] ####[facility] [address] [place], [address] Urea nitrogen [Mass/Vol] 19 mg/dL Normal 4-19 [facility] Comment on above: Performed By: #### L 501.5200, L501.2300, L100.0100, L501.4700, L500.4050, L300.3900, L501.9520 ####[facility] [address] [place], [address] Consultation - Cardiologyon 12-07-2024 Consultation - Cardiology Normal [facility] Consultation - Orthopedicson 12-07-2024 Consultation - Orthopedics Normal [facility] International normalized rat io (INR) calculationOrdered By: Sandro Jackman on 12-07-2024 INR Coag (Bld) [Relative time] 1.0 {INR} [facility] Laboratory - Chemistry and C hemistry - challengeOrdered By: Sandro Jackman on 12-07-2024 AST [Catalytic activity/Vol] 33 U/L High <32 [facility] Magnesiumon 12-07-2024 Magnesium [Mass/Vol] 2.0 mg/dL Normal 1.5-2.2 [facility] Comment on above: Performed By: #### L 501.5200, L501.2300, L100.0100, L501.4700, L500.4050, L300.3900, L501.9520 ####[facility] [address] [place], [address] Magnesium (Unsp spec) [Mass/ Vol]Ordered By: Sandro Jackman on 12-07-2024 Magnesium [Mass/Vol] 2.0 mg/dL 1.5-2.2 [facility] Phosphoruson 12-07-2024 Phosphate [Mass/Vol] 4.2 mg/dL Normal 2.7-4.5 [facility] Comment on above: Performed By: #### L 501.5200, L501.2300, L100.0100, L501.4700, L500.4050, L300.3900, L501.9520 ####[facility] [address] [place], [address] Prothrombin Time w/INRon INR Coag (PPP) [Relative time] 1.0 {INR} Normal [facility] Comment on above: Performed By: #### L 501.5200, L501.2300, L100.0100, L501.4700, L500.4050, L300.3900, L501.9520 ####[facility] [address] [place], [address] PT Coag (PPP) [Time] 13.0 s Normal 11.7-14.9 [facility] Comment on above: Performed By: #### L 501.5200, L501.2300, L100.0100, L501.4700, L500.4050, L300.3900, L501.9520 ####[facility] [address] [place], [place], [id number] Prothrombin timeOrdered By: Sandro Jackman on 12-07-2024 PT Coag (PPP) [Time] 13.0 s 11.7-14.9 [facility] Serum globulin measurementOr dered By: Sandro Jackman on 12-07-2024 Globulin (S) [Mass/Vol] 2.5 g/dL 2.2-4.2 [facility] Serum or plasma alanine simeon otransferase (ALT) measurementOrdered By: Sandro Jackman on 12-07-2024 ALT [Catalytic activity/Vol] 17 U/L <35 [facility] Serum or plasma albumin cindy urement (mass/volume)Ordered By: Sandro Jackman on 12-07-2024 Albumin [Mass/Vol] 3.9 g/dL 3.4-4.8 [facility] Serum or plasma albumin/glob ulin mass ratioOrdered By: Sandro Jackman on 12-07-2024 Albumin/Globulin [Mass ratio] 1.6 {ratio} 0.9-2.4 [facility] Serum or plasma alkaline avani sphatase measurementOrdered By: Sandro Jackman on 12-07-2024 ALP [Catalytic activity/Vol] 66 U/L 35-104 [facility] Serum phosphorus measurement Ordered By: Sandro Jackman on 12-07-2024 Phosphorus Level 4.2 mg/dL 2.7-4.5 [facility] TSH DL <= 0.005 mIU/L QnOrde red By: Sandro Jackman on 12-07-2024 Thyroid Stimulating Hormone (TSH) 1.180 uIU/mL 0.300-4.200 [facility] Thyroid Stim Hormone (TSH)on 12-07-2024 TSH 1.180 uIU/mL Normal 0.300-4.200 [facility] Comment on above: Performed By: #### L 501.5200, L501.2300, L100.0100, L501.4700, L500.4050, L300.3900, L501.9520 ####[facility] [address] [place], [place], [id number] Total proteinOrdered By: Shivani Jackman on 12-07-2024 Protein [Mass/Vol] 6.3 g/dL 5.9-8.4 [facility] 12 Lead EKGon 12-06-[address] [facility] Absolute neutrophil countOrd ered By: Rita Nowak on 12-06-2024 Neutrophils (Bld) [#/Vol] 9.9 10*3/uL High 2.0-7.7 [facility] Anion gap in Serum or Plasma Ordered By: Rita Nowak on 12-06-2024 Anion gap [Moles/Vol] 14 mmol/L 02-05 [facility] BUN/creatinine ratioOrdered By: Rita Nowak on 12-06-2024 Urea nitrogen/Creatinine [Mass ratio] 17.1 mg/mg - [facility] Basic Metabolic Profile (BMP )on 12-06-2024 BUN/CRE 17.1 RATIO Normal 07-13 [facility] Comment on above: Performed By: #### L 500.2500, L100.0100 ####[facility] [address] [place], [place], [id number] Calcium [Mass/Vol] 9.5 mg/dL Normal 7.6-11.0 [facility] Comment on above: Performed By: #### L 500.2500, L100.0100 ####[facility] [address] [place], [address] Chloride [Moles/Vol] 97 mmol/L Low 98-108 [facility] Comment on above: Performed By: #### L 500.2500, L100.0100 ####[facility] [address] [place], [address] CO2 [Moles/Vol] 23.1 mmol/L Normal 21.0-32.0 [facility] Comment on above: Performed By: #### L 500.2500, L100.0100 ####[facility] [address] [place], [address] Creatinine [Mass/Vol] 0.96 mg/dL Normal 0.70-1.20 [facility] Comment on above: Performed By: #### L 500.2500, L100.0100 ####[facility] [address] [place], [address] ECRCL 51.06 ml/min Normal 50-250 [facility] Comment on above: Performed By: #### L 500.2500, L100.0100 ####[facility] [address] [place], [address] GAP 14 Normal 5-15 [facility] Comment on above: Performed By: #### L 500.2500, L100.0100 ####[facility] [address] [place], [address] GFR/1.73 sq M.predicted among non-blacks MDRD (S/P/Bld) [Vol rate/Area] 60 mL/min/{1.73_m2} Normal >60 [facility] Comment on above: Result Comment: mL/m in/1.73m2 CKD-EPI Creatinine Equation (2020) Performed By: #### L 500.2500, L100.0100 ####[facility] [address] [place], [address] Glucose [Mass/Vol] 127 mg/dL High 70-99 [facility] Comment on above: Performed By: #### L 500.2500, L100.0100 ####[facility] [address] [place], [address] Potassium [Moles/Vol] 4.3 mmol/L Normal 3.3-5.1 [facility] Comment on above: Performed By: #### L 500.2500, L100.0100 ####[facility] [address] [place], [address] Sodium [Moles/Vol] 134 mmol/L Normal 133-145 [facility] Comment on above: Performed By: #### L 500.2500, L100.0100 ####[facility] [address] [place], [address] Urea nitrogen [Mass/Vol] 16 mg/dL Normal 4-19 [facility] Comment on above: Performed By: #### L 500.2500, L100.0100 ####[facility] [address] [place], [address] Basophil percentageOrdered B y: Rita Nowak on 12-06-2024 Basophils/100 WBC (Bld) 0.3 % 0-1 [facility] Brain/Head without Contrasto n 12-06-2024 Brain/Head without Contrast Normal [facility] CBC W/Diff, Automatedon 03- Absolute Lymph 0.99 X10 3/uL Normal 0.83-4.51 [facility] Comment on above: Performed By: #### L 500.2500, L100.0100 ####[facility] [address] [place], [address] Absolute Neut 9.9 X10 3/uL High 2.0-7.7 [facility] Comment on above: Performed By: #### L 500.2500, L100.0100 ####[facility] [address] [place], [address] Basophils/100 WBC (Bld) 0.3 % Normal 0-1 [facility] Comment on above: Performed By: #### L 500.2500, L100.0100 ####[facility] [address] [place], [address] Eosinophils/100 WBC (Bld) 1.3 % Normal 0-5 [facility] Comment on above: Performed By: #### L 500.2500, L100.0100 ####[facility] [address] [place], [address] Erythrocyte distribution width (RBC) [Ratio] 12.9 % Normal 11.6-14.6 [facility] Comment on above: Performed By: #### L 500.2500, L100.0100 ####[facility] [address] [place], [address] Hematocrit (Bld) [Volume fraction] 40.5 % Normal 37-47 [facility] Comment on above: Performed By: #### L 500.2500, L100.0100 ####[facility] [address] [place], [address] Hemoglobin (Bld) [Mass/Vol] 13.6 g/dL Normal 12.0-15.0 [facility] Comment on above: Performed By: #### L 500.2500, L100.0100 ####[facility] [address] [place], [address] IG% 0.500 Normal 0.0-0.9 [facility] Comment on above: Result Comment: IG% - Immature Granulocytes (promyelocytes, myelocytes andmetamyelocytes) > 1% indicates that a LEFT SHIFT is Present. Performed By: #### L 500.2500, L100.0100 ####[facility] [address] [place], [address] Lymphocytes/100 WBC (Bld) 8.6 % Low 19-41 [facility] Comment on above: Performed By: #### L 500.2500, L100.0100 ####[facility] [address] [place], [address] MCH (RBC) [Entitic mass] 29.4 pg Normal 27.0-32.0 [facility] Comment on above: Performed By: #### L 500.2500, L100.0100 ####[facility] [address] [place], [address] MCHC (RBC) [Mass/Vol] 33.6 g/dL Normal 32-36 [facility] Comment on above: Performed By: #### L 500.2500, L100.0100 ####[facility] [address] [place], [address] MCV (RBC) [Entitic vol] 87.7 fL Normal 81-99 [facility] Comment on above: Performed By: #### L 500.2500, L100.0100 ####[facility] [address] [place], [address] Monocytes/100 WBC (Bld) 4.0 % Normal 0-10 [facility] Comment on above: Performed By: #### L 500.2500, L100.0100 ####[facility] [address] [place], [address] Neutrophils/100 WBC (Bld) 85.3 % High 47-70 [facility] Comment on above: Performed By: #### L 500.2500, L100.0100 ####[facility] [address] [place], [address] Nucleated RBC (Bld) [#/Vol] 0 10*3/uL Normal 0-5 [facility] Comment on above: Performed By: #### L 500.2500, L100.0100 ####[facility] [address] [place], [address] Platelet mean volume (Bld) [Entitic vol] 9.2 fL Normal 6.2-12.0 [facility] Comment on above: Performed By: #### L 500.2500, L100.0100 ####[facility] [address] [place], [address] Platelets (Bld) [#/Vol] 279 10*3/uL Normal 150-450 [facility] Comment on above: Performed By: #### L 500.2500, L100.0100 ####[facility] [address] [place], [address] RBC (Bld) [#/Vol] 4.62 10*6/uL Normal 4.2-5.4 [facility] Comment on above: Performed By: #### L 500.2500, L100.0100 ####[facility] [address] [place], [address] RDW SD 41.1 fl Normal 35.1-43.9 [facility] Comment on above: Performed By: #### L 500.2500, L100.0100 ####[facility] [address] [place], [address] WBC (Bld) [#/Vol] 11.6 10*3/uL High 4.4-11.0 [facility] Comment on above: Performed By: #### L 500.2500, L100.0100 ####[facility] [address] [place], [address] Carbon dioxide, total [Moles /volume] in Central venous bloodOrdered By: Rita Nowak on 12-06-2024 CO2 [Moles/Vol] 23.1 mmol/L 21.0-32.0 [facility] Chest 1 View (Portable)on Chest 1 View (Portable) Normal [facility] Chloride assayOrdered By: Roselyn Nowak on 12-06-2024 Chloride [Moles/Vol] 97 mmol/L Low 98-108 [facility] Emergency Department Summary on 12-06-2024 Emergency [address] [facility] Eosinophil percentageOrdered By: Rita Nowak on 12-06-2024 Eosinophils/100 WBC (Bld) 1.3 % 0-5 [facility] Erythrocyte distribution wid th ratioOrdered By: Rita Nowak on 12-06-2024 Erythrocyte distribution width (RBC) [Ratio] 12.9 % 11.6-14.6 [facility] Erythrocyte distribution wid th standard deviationOrdered By: Rita Nowak on 12-06-2024 Erythrocyte distribution width (RBC) [Entitic vol] 41.1 fL 35.1-43.9 [facility] Estimation of creatinine clemencia aranceOrdered By: Rita Nowak on 12-06-2024 Estimated Creatinine Clearance Calc 51.06 ml/min 50-250 [facility] GFR/1.73 sq M.predicted stephen g non-blacks MDRD (S/P/Bld) [Vol rate/Area]Ordered By: Rita Nowak on 12-06-2024 Estimated GFR (MDRD) Non-Af Amer 60 >60 [facility] Comment on above: mL/min/1.73m2 CKD-EP I Creatinine Equation (2020) H AND P Exam - Hospitaliston 12-06-2024 H&P Exam - Hospitalist Normal [facility] Hematocrit Auto (Bld) [Volum e fraction]Ordered By: Rita Nowak on 12-06-2024 Hematocrit (Bld) [Volume fraction] 40.5 % 37-47 [facility] Hemoglobin measurementOrdere d By: Rita Nowak on 12-06-2024 Hemoglobin (Bld) [Mass/Vol] 13.6 g/dL 12.0-15.0 [facility] Immature granulocytes/100 WB C Auto (Bld)Ordered By: Rita Nowak on 12-06-2024 Immature granulocytes/100 WBC (Bld) 0.500 % 0.0-0.9 [facility] Comment on above: IG% - Immature Granu locytes (promyelocytes, myelocytes and metamyelocytes) > 1% indicates that a LEFT SHIFT is Present. Knee 1 or 2 Viewson 12-07-19 25 Knee 1 or [address] [facility] L499.0042on 12-06-2024 Trop T High Sen 184 ng/L Invalid Interpretation Code <=14 [facility] Comment on above: Result Comment: Crit ical Result(s) Called at 12/06/2024-21:15 by Ga Chamberlain??Results read back by same. Performed By: #### L 499.0042 ####[facility] [address] [place], [address] Trop T High Sen 178 ng/L Invalid Interpretation Code <=14 [facility] Comment on above: Result Comment: Crit ical Result(s) Called at 12/06/2024-20:01 by Ga Ortiz??Results read back by same. Performed By: #### L 499.0042 ####[facility] [address] [place], [address] L499.0043on 12-06-2024 Trop T High Sen Normal <=14 [facility] Comment on above: Result Comment: Canc ellvalencia via OM: Ordered Performed By: #### L 499.0043 ####[facility] [address] [place], [address] Trop T High Sen Normal <=14 [facility] Comment on above: Result Comment: OKAY TO CANCEL PER WALLY VEGA PCU CHARGE Performed By: #### L 499.0043 ####[facility] [address] [place], [address] L501.4021on 12-06-2024 Trop T High Sen 108 ng/L Invalid Interpretation Code <=14 [facility] Comment on above: Result Comment: Crit ical Result(s) Called at 12/06/2024-17:35 by Ga Pena??Results read back by same. Performed By: #### L 501.4021 ####[facility] [address] [place], [address] Lymphocytes Auto (Unsp spec) [#/Vol]Ordered By: Rita Nowak on 12-06-2024 Lymphocytes (Bld) [#/Vol] 0.99 10*3/uL 0.83-4.51 [facility] Lymphocytes/100 WBC Auto (Un sp spec)Ordered By: Rita Nowak on 12-06-2024 Lymphocytes/100 WBC (Bld) 8.6 % Low 19-41 [facility] MCV (mean corpuscular volume ) determinationOrdered By: Rita Nowak on 12-06-2024 MCV (RBC) [Entitic vol] 87.7 fL 81-99 [facility] Mean corpuscular hemoglobin (MCH) determinationOrdered By: Rita Nowak on 12-06-2024 MCH (RBC) [Entitic mass] 29.4 pg 27.0-32.0 [facility] Mean corpuscular hemoglobin concentration (MCHC) determinationOrdered By: Rita Nowak on 12-06-2024 MCHC (RBC) [Mass/Vol] 33.6 g/dL 32-36 [facility] Mean platelet volume determi nationOrdered By: Rita Nowak on 12-06-2024 Platelet mean volume (Bld) [Entitic vol] 9.2 fL 6.2-12.0 [facility] Monocyte percentageOrdered B y: Rita Nowak on 12-06-2024 Monocytes/100 WBC (Bld) 4.0 % 0-10 [facility] Neutrophil percentageOrdered By: Rita Nowak on 12-06-2024 Neutrophils/100 WBC (Bld) 85.3 % High 47-70 [facility] No Panel InformationOrdered By: Rita Nowak on 12-06-2024 Troponin T High Sensitivity 108 ng/L High <14 [facility] Comment on above: Critical Result(s) C alled at 12/06/2024-17:35 by Ga Pate to Nabila Pena Results read back by same. Nucleated red blood cell per centageOrdered By: Rita Nowak on 12-06-2024 Nucleated RBC/100 WBC (Bld) [Ratio] 0 % 0-5 [facility] Platelet countOrdered By: Roselyn Nowak on 12-06-2024 Platelets (Bld) [#/Vol] 279 10*3/uL 150-450 [facility] Potassium (Unsp spec) [Mass/ Vol]Ordered By: Rita Nowak on 12-06-2024 Potassium [Moles/Vol] 4.3 mmol/L 3.3-5.1 [facility] RBC Auto (Bld) [#/Vol]Ordere d By: Rita Nowak on 12-06-2024 RBC (Bld) [#/Vol] 4.62 10*6/uL 4.2-5.4 [facility] Serum creatinine measurement (mass/volume)Ordered By: Rita Nowak on 12-06-2024 Creatinine [Mass/Vol] 0.96 mg/dL 0.70-1.20 [facility] Serum glucose measurement (m ass/volume)Ordered By: Rita Nowak on 12-06-2024 Glucose [Mass/Vol] 127 mg/dL High 70-99 [facility] Serum or plasma calcium cindy urement (mass/volume)Ordered By: Rita Nowak on 12-06-2024 Calcium [Mass/Vol] 9.5 mg/dL 7.6-11.0 [facility] Serum or plasma urea nitroge n measurement (mass/volume)Ordered By: Rita Nowak on 12-06-2024 Urea nitrogen [Mass/Vol] 16 mg/dL 4-19 [facility] Sinus/Facial Boneon 12-07-19 25 Sinus/Facial Bone Normal [facility] Sodium levelOrdered By: Rita Nowak on 12-06-2024 Sodium [Moles/Vol] 134 mmol/L 133-145 [facility] Spine Cervical without Contr ason 12-06-2024 Spine Cervical without Contras Normal [facility] Troponin T.cardiac High sens itivity method [Mass/Vol]Ordered By: Rita Nowak on 12-06-2024 Troponin T High Sensitivity 2 Hour 184 ng/L High <14 [facility] Comment on above: Critical Result(s) C alled at 12/06/2024-21:15 by Ga Pate to Sunni Chamberlain Results read back by same. White blood cell (WBC) count Ordered By: Rita Nowak on 12-06-2024 WBC (Bld) [#/Vol] 11.6 10*3/uL High 4.4-11.0 [facility] Cardiology Visit Reporton Cardiology Visit Report Normal [facility] .Auto Diffon 10-29-2024 Basophil, Absolute 0.0 10 3/mcL Normal 0.0-0.2 [facility] Comment on above: Performed By: #### T SHR, CBC, CMP, ADIFF, GFR, ANEU, FT4 #### [address] [address] Basophils/100 WBC (Bld) 0.6 % Normal 0.0-2.5 [facility] Comment on above: Performed By: #### T SHR, CBC, CMP, ADIFF, GFR, ANEU, FT4 #### [address] [address] Eosinophil, Absolute 0.2 10 3/mcL Normal 0.0-0.7 [facility] Comment on above: Performed By: #### T SHR, CBC, CMP, ADIFF, GFR, ANEU, FT4 #### [address] [address] Eosinophils/100 WBC (Bld) 2.6 % Normal 0.0-7.0 [facility] Comment on above: Performed By: #### T SHR, CBC, CMP, ADIFF, GFR, ANEU, FT4 #### [address] [address] Lymphocyte, Absolute 1.3 10 3/mcL Normal 0.9-4.3 [facility] Comment on above: Performed By: #### T SHR, CBC, CMP, ADIFF, GFR, ANEU, FT4 #### [address] [address] Lymphocytes/100 WBC (Bld) 21.2 % Normal 20.0-40.0 [facility] Comment on above: Performed By: #### T SHR, CBC, CMP, ADIFF, GFR, ANEU, FT4 #### [address] [address] Monocyte, Absolute 0.5 10 3/mcL Normal 0.1-1.4 [facility] Comment on above: Performed By: #### T SHR, CBC, CMP, ADIFF, GFR, ANEU, FT4 #### [address] [address] Monocytes/100 WBC (Bld) 7.5 % Normal 2.0-13.0 [facility] Comment on above: Performed By: #### T SHR, CBC, CMP, ADIFF, GFR, ANEU, FT4 #### [address] [address] Neutrophils/100 WBC (Bld) 68.1 % Normal 50.0-75.0 [facility] Comment on above: Performed By: #### T SHR, CBC, CMP, ADIFF, GFR, ANEU, FT4 #### [address] [address] .GFRon 10-29-2024 Estimated Glomerular Filtration Rate 53 ml/min/1.73sqm Normal [facility] Comment on above: Result Comment: Stages [...] V IDH, LIPID, CMP, GFR, TSH #### [address] [address] #### B12 #### [address] [address] .NEUABSon 10-29-2024 Neutrophil, Absolute 4.3 10 3/mcL Normal 2.3-8.1 [facility] Comment on above: Performed By: #### T SHR, CBC, CMP, ADIFF, GFR, ANEU, FT4 #### [address] [address] CBCon 10-29-2024 Erythrocyte distribution width (RBC) [Ratio] 13.8 % Normal 11.5-15.5 [facility] Comment on above: Performed By: #### T SHR, CBC, CMP, ADIFF, GFR, ANEU, FT4 #### [place] [address] Hematocrit (Bld) [Volume fraction] 41.6 % Normal 34.0-46.0 [facility] Comment on above: Performed By: #### T SHR, CBC, CMP, ADIFF, GFR, ANEU, FT4 #### [place] [address] Hgb 13.8 G/dL Normal 12.0-16.0 [facility] Comment on above: Performed By: #### T SHR, CBC, CMP, ADIFF, GFR, ANEU, FT4 #### [place] [address] MCH (RBC) [Entitic mass] 29.1 pg Normal 27.0-33.0 [facility] Comment on above: Performed By: #### T SHR, CBC, CMP, ADIFF, GFR, ANEU, FT4 #### [place] [address] MCHC 33.3 G/dL Normal 32.0-36.0 [facility] Comment on above: Performed By: #### T SHR, CBC, CMP, ADIFF, GFR, ANEU, FT4 #### [place] [address] MCV (RBC) [Entitic vol] 87.3 fL Normal 80.0-99.0 [facility] Comment on above: Performed By: #### T SHR, CBC, CMP, ADIFF, GFR, ANEU, FT4 #### [address] [address] Platelet 283 10 3/mcL Normal 150-450 [facility] Comment on above: Performed By: #### T SHR, CBC, CMP, ADIFF, GFR, ANEU, FT4 #### [address] [address] Platelet mean volume (Bld) [Entitic vol] 7.6 fL Normal 6.6-10.5 [facility] Comment on above: Performed By: #### T SHR, CBC, CMP, ADIFF, GFR, ANEU, FT4 #### [address] [address] RBC 4.76 10 6/mcL Normal 4.10-5.30 [facility] Comment on above: Performed By: #### T SHR, CBC, CMP, ADIFF, GFR, ANEU, FT4 #### [address] [address] WBC 6.3 10 3/mcL Normal 4.5-10.8 [facility] Comment on above: Performed By: #### T SHR, CBC, CMP, ADIFF, GFR, ANEU, FT4 #### [address] [address] CMPon 10-29-2024 Albumin Level 4.5 G/dL Normal 3.4-4.8 [facility] Comment on above: Performed By: #### V IDH, LIPID, CMP, GFR, TSH #### [address] [address] #### B12 #### [address] [address] Albumin/Globulin [Mass ratio] 1.5 {ratio} Normal 1.1-2.5 [facility] Comment on above: Performed By: #### V IDH, LIPID, CMP, GFR, TSH #### [address] [address] #### B12 #### [address] [address] ALP [Catalytic activity/Vol] 81 U/L Normal 40-135 [facility] Comment on above: Performed By: #### V IDH, LIPID, CMP, GFR, TSH #### [place] [address] #### B12 #### [address] [address] ALT [Catalytic activity/Vol] 22 U/L Normal 14-59 [facility] Comment on above: Performed By: #### V IDH, LIPID, CMP, GFR, TSH #### [place] [address] #### B12 #### [place] [address] AST [Catalytic activity/Vol] 21 U/L Normal 10-40 [facility] Comment on above: Performed By: #### V IDH, LIPID, CMP, GFR, TSH #### [place] [address] #### B12 #### [place] [address] Bili Total 0.5 mg/dL Normal 0.2-1.0 [facility] Comment on above: Result Comment: Use of this assay is not recommended for patients undergoing treatment with eltrombopag due to the potential for falsely elevated results. Performed By: #### V IDH, LIPID, CMP, GFR, TSH #### [place] [address] #### B12 #### [place] [address] BUN/Creatinine Ratio 15 ratio Normal 7-27 [facility] Comment on above: Performed By: #### V IDH, LIPID, CMP, GFR, TSH #### [place] [address] #### B12 #### [place] [address] Calcium [Mass/Vol] 10.2 mg/dL Normal 8.4-10.2 [facility] Comment on above: Performed By: #### V IDH, LIPID, CMP, GFR, TSH #### [address] [address] #### B12 #### [address] [address] Chloride [Moles/Vol] 100 mmol/L Normal 98-107 [facility] Comment on above: Performed By: #### V IDH, LIPID, CMP, GFR, TSH #### [address] [address] #### B12 #### [address] [address] CO2 [Moles/Vol] 31 mmol/L Normal 23-31 [facility] Comment on above: Performed By: #### V IDH, LIPID, CMP, GFR, TSH #### [place] [address] #### B12 #### [address] [address] Creatinine [Mass/Vol] 1.06 mg/dL High 0.55-1.02 [facility] Comment on above: Result Comment: Test ing performed on Siemens Dimension EXL analyzer using a modified kinetic Jana technique. Performed By: #### V IDH, LIPID, CMP, GFR, TSH #### [address] [address] #### B12 #### [address] [address] Electrolyte Balance 6.0 mEq/L Normal 4.0-15.0 [facility] Comment on above: Performed By: #### V IDH, LIPID, CMP, GFR, TSH #### [address] [address] #### B12 #### [address] [address] Globulin 3.0 G/dL Normal 1.5-3.8 [facility] Comment on above: Performed By: #### V IDH, LIPID, CMP, GFR, TSH #### [place] [address] #### B12 #### [address] [address] Glucose [Mass/Vol] 93 mg/dL Normal 83-110 [facility] Comment on above: Performed By: #### V IDH, LIPID, CMP, GFR, TSH #### [address] [address] #### B12 #### [address] [address] Potassium [Moles/Vol] 4.9 mmol/L Normal 3.5-5.1 [facility] Comment on above: Performed By: #### V IDH, LIPID, CMP, GFR, TSH #### [address] [address] #### B12 #### [address] [address] Sodium [Moles/Vol] 137 mmol/L Normal 136-145 [facility] Comment on above: Performed By: #### V IDH, LIPID, CMP, GFR, TSH #### [address] [address] #### B12 #### [address] [address] Total Protein 7.5 G/dL Normal 6.4-8.2 [facility] Comment on above: Performed By: #### V IDH, LIPID, CMP, GFR, TSH #### [address] [address] #### B12 #### [address] [address] Urea nitrogen [Mass/Vol] 16 mg/dL Normal 7-18 [facility] Comment on above: Performed By: #### V IDH, LIPID, CMP, GFR, TSH #### [address] [address] #### B12 #### [address] [address] FT4on 10-29-2024 Free T4 [Mass/Vol] 1.25 ng/dL Normal 0.76-1.46 [facility] Comment on above: Order Comment: Order ed by Discern Performed By: #### V IDH, LIPID, CMP, GFR, TSH #### [place] [address] [place], [place] [address] #### B12 #### [address] [address] LABORATORYOrdered By: SYSTEM SYSTEM on 10-29-2024 Albumin [...] 10-29-2024 TSH Qn 0.18 m[IU]/L Low 0.36-3.74 [facility] Comment on above: Performed By: #### V IDH, LIPID, CMP, GFR, TSH #### [facility] [address] [place], [place] [address] #### B12 #### [facility] [address] [place] [address] Cardiology Visit Reporton Cardiology Visit Report Normal [facility] BD BONE DENSITY DEXA AXIAL S [place] 08-25-2024 BD BONE DENSITY DEXA AXIAL S[place]TON [...] PM Ordering Provider: ARGELIA DARBY [facility] .GFRon 07-31-2024 GFR 65 ml/min/1.73sqm [facility] Comment on above: Result Comment: GFR Population [...] V IDH, LIPID, CMP, GFR, TSH #### [address] [address] #### B12 #### [address] [address] GFR Non- 53 ml/min/1.73sqm Normal [facility] Comment on above: Result Comment: GFR [...] V IDH, LIPID, CMP, GFR, TSH #### [address] [address] #### B12 #### [address] [address] B12on 07-31-2024 Cobalamin (Vitamin B12) [Mass/Vol] 431 pg/mL Normal 211-911 [facility] Comment on above: Performed By: #### V IDH, LIPID, CMP, GFR, TSH #### [address] [address] #### B12 #### [address] [address] CMPon 07-31-2024 Albumin Level 4.1 G/dL Normal 3.4-4.8 [facility] Comment on above: Performed By: #### V IDH, LIPID, CMP, GFR, TSH #### [address] [address] #### B12 #### [address] [address] Albumin/Globulin [Mass ratio] 1.5 {ratio} Normal 1.1-2.5 [facility] Comment on above: Performed By: #### V IDH, LIPID, CMP, GFR, TSH #### [address] [address] #### B12 #### [address] [address] ALP [Catalytic activity/Vol] 98 U/L Normal 40-135 [facility] Comment on above: Performed By: #### V IDH, LIPID, CMP, GFR, TSH #### [address] [address] #### B12 #### [address] [address] ALT [Catalytic activity/Vol] 26 U/L Normal 14-59 [facility] Comment on above: Performed By: #### V IDH, LIPID, CMP, GFR, TSH #### [address] [address] #### B12 #### [address] [address] AST [Catalytic activity/Vol] 18 U/L Normal 10-40 [facility] Comment on above: Performed By: #### V IDH, LIPID, CMP, GFR, TSH #### [address] [address] #### B12 #### [address] [address] Bili Total 0.4 mg/dL Normal 0.2-1.0 [facility] Comment on above: Result Comment: Use of this assay is not recommended for patients undergoing treatment with eltrombopag due to the potential for falsely elevated results. Performed By: #### V IDH, LIPID, CMP, GFR, TSH #### [place] [address] #### B12 #### [address] [address] BUN/Creatinine Ratio 21 ratio Normal 7-27 [facility] Comment on above: Performed By: #### V IDH, LIPID, CMP, GFR, TSH #### [place] [address] #### B12 #### [address] [address] Calcium [Mass/Vol] 9.6 mg/dL Normal 8.4-10.2 [facility] Comment on above: Performed By: #### V IDH, LIPID, CMP, GFR, TSH #### [place] [address] #### B12 #### [address] [address] Chloride [Moles/Vol] 101 mmol/L Normal 98-107 [facility] Comment on above: Performed By: #### V IDH, LIPID, CMP, GFR, TSH #### [place] [address] #### B12 #### [address] [address] CO2 [Moles/Vol] 29 mmol/L Normal 23-31 [facility] Comment on above: Performed By: #### V IDH, LIPID, CMP, GFR, TSH #### [place] [address] #### B12 #### [address] [address] Creatinine [Mass/Vol] 1.00 mg/dL Normal 0.55-1.02 [facility] Comment on above: Result Comment: Test ing performed on Siemens Dimension EXL analyzer using a modified kinetic Jana technique. Performed By: #### V IDH, LIPID, CMP, GFR, TSH #### [address] [address] #### B12 #### [address] [address] Electrolyte Balance 6.0 mEq/L Normal 4.0-15.0 [facility] Comment on above: Performed By: #### V IDH, LIPID, CMP, GFR, TSH #### [place] [address] #### B12 #### [address] [address] Globulin 2.8 G/dL Normal [facility] Comment on above: Performed By: #### V IDH, LIPID, CMP, GFR, TSH #### [place] [address] #### B12 #### [address] [address] Glucose [Mass/Vol] 107 mg/dL Normal 83-110 [facility] Comment on above: Performed By: #### V IDH, LIPID, CMP, GFR, TSH #### [place] [address] #### B12 #### [address] [address] Potassium [Moles/Vol] 4.9 mmol/L Normal 3.5-5.1 [facility] Comment on above: Performed By: #### V IDH, LIPID, CMP, GFR, TSH #### [address] [address] #### B12 #### [address] [address] Sodium [Moles/Vol] 136 mmol/L Normal 136-145 [facility] Comment on above: Performed By: #### V IDH, LIPID, CMP, GFR, TSH #### [address] [address] #### B12 #### [address] [address] Total Protein 6.9 G/dL Normal 6.4-8.2 [facility] Comment on above: Performed By: #### V IDH, LIPID, CMP, GFR, TSH #### [place] [address] [place], [place] [address] #### B12 #### [facility] [address] [place] [address] Urea nitrogen [Mass/Vol] 21 mg/dL High 7-18 [facility] Comment on above: Performed By: #### V IDH, LIPID, CMP, GFR, TSH #### [place] [address] [place], [place] [address] #### B12 #### [facility] [address] [place] [address] LABORATORYOrdered By: SYSTEM SYSTEM on 07-31-2024 25-hydroxyvitamin [...] 07-31-2024 Cholesterol [Mass/Vol] 156 mg/dL Normal 0-200 [facility] Comment on above: Result Comment: Chol esterol Reference Interval: Less than 200 Desirable 200-239 Borderline high risk 240 and above High risk Performed By: #### V IDH, LIPID, CMP, GFR, TSH #### [facility] [address] [place], [place] [address] #### B12 #### [facility] [address] [place] [address] Cholesterol in HDL [Mass/Vol] 84 mg/dL High 40-60 [facility] Comment on above: Performed By: #### V IDH, LIPID, CMP, GFR, TSH #### [place] [address] #### B12 #### [place] [address] Cholesterol in LDL [Mass/Vol] 64 mg/dL Normal 0-130 [facility] Comment on above: Performed By: #### V IDH, LIPID, CMP, GFR, TSH #### [place] [address] #### B12 #### [place] [address] Triglyceride [Mass/Vol] 41 mg/dL Normal 0-150 [facility] Comment on above: Result Comment: Trig lyceride Reference Interval: Less than 150 Normal 150-199 Borderline high risk 200-499 High risk 500 or higher Very high risk Performed By: #### V IDH, LIPID, CMP, GFR, TSH #### [place] [address] #### B12 #### [place] [address] TSHon 07-31-2024 TSH Qn 0.49 m[IU]/L Normal 0.36-3.74 [facility] Comment on above: Performed By: #### V IDH, LIPID, CMP, GFR, TSH #### [address] [address] #### B12 #### [place] [address] VIDHon 07-31-2024 Vit. D 25-Hydroxy 47.8 ng/mL Normal [facility] Comment on above: Result Comment: Inte rpretive Values Based on Total 25(OH) Vitamin D: Deficient <20 ng/mL Insufficient 20 - <30 ng/mL Sufficient 30-100 ng/mL Performed By: #### V IDH, LIPID, CMP, GFR, TSH #### [place] [address] #### B12 #### [place] [address] LABORATORYOrdered By: SYSTEM SYSTEM on 05-23-2024 Natriuretic peptide.B prohormone N-Terminal [Mass/Vol] 425 pg/mL Normal 0 - 450 pg/mL AO ADM SS Comment on above: Interpretive Data: N T-proBNP results of less than 300 pg/mL effectively rules out acute congestive heart failure with 99% negative predictive value. PBNPon 05-23-2024 Natriuretic peptide B (Bld) [Mass/Vol] 425 pg/mL Normal 0-450 [facility] ([place]) Comment on above: Result Comment: NT-p roBNP results of less than 300 pg/mL effectively rules out acute congestive heart failure with 99% negative predictive value. Performed By: #### C BC, MG, GFR, ANEU, MDW, ADIFF, DIMER, TROPHS, LIP, CMP #### [address] [address] .Auto Diffon 05-15-2024 Basophil, Absolute 0.0 10 3/mcL Normal 0.0-0.2 [facility] ([place]) Comment on above: Performed By: #### C BC, MG, GFR, ANEU, MDW, ADIFF, DIMER, TROPHS, LIP, CMP #### [address] [address] Basophils/100 WBC (Bld) 0.6 % Normal 0.0-2.5 [facility] ([place]) Comment on above: Performed By: #### C BC, MG, GFR, ANEU, MDW, ADIFF, DIMER, TROPHS, LIP, CMP #### [address] [address] Eosinophil, Absolute 0.4 10 3/mcL Normal 0.0-0.4 [facility] ([place]) Comment on above: Performed By: #### C BC, MG, GFR, ANEU, MDW, ADIFF, DIMER, TROPHS, LIP, CMP #### [address] [address] Eosinophils/100 WBC (Bld) 8.1 % High 0.0-7.0 [facility] ([place] Comment on above: Performed By: #### C BC, MG, GFR, ANEU, MDW, ADIFF, DIMER, TROPHS, LIP, CMP #### [address] [address] Lymphocyte, Absolute 1.1 10 3/mcL Normal 0.8-3.9 [facility] ([place] Comment on above: Performed By: #### C BC, MG, GFR, ANEU, MDW, ADIFF, DIMER, TROPHS, LIP, CMP #### [address] [address] Lymphocytes/100 WBC (Bld) 21.0 % Normal 10.0-50.0 [facility] ([place] Comment on above: Performed By: #### C BC, MG, GFR, ANEU, MDW, ADIFF, DIMER, TROPHS, LIP, CMP #### [address] [address] Monocyte, Absolute 0.5 10 3/mcL Normal 0.2-1.0 [facility] ([place] Comment on above: Performed By: #### C BC, MG, GFR, ANEU, MDW, ADIFF, DIMER, TROPHS, LIP, CMP #### [address] [address] Monocytes/100 WBC (Bld) 9.5 % Normal 1.7-13.0 [facility] ([place] Comment on above: Performed By: #### C BC, MG, GFR, ANEU, MDW, ADIFF, DIMER, TROPHS, LIP, CMP #### [address] [address] Neutrophils/100 WBC (Bld) 60.8 % Normal 37.0-80.0 [facility] ([place] Comment on above: Performed By: #### C BC, MG, GFR, ANEU, MDW, ADIFF, DIMER, TROPHS, LIP, CMP #### [address] [address] .GFRon 05-15-2024 GFR 62 ml/min/1.73sqm Normal [facility] ([place]) Comment on above: Result Comment: GFR Population [...] MDW, ADIFF, DIMER, TROPHS, LIP, CMP #### [address] [address] GFR Non- 51 ml/min/1.73sqm Normal [facility] ([place]) Comment on above: Result Comment: GFR Population [...] MDW, ADIFF, DIMER, TROPHS, LIP, CMP #### [address] [address] .NEUABSon 05-15-2024 Neutrophil, Absolute 3.3 10 3/mcL Normal 2.9-6.2 [facility] ([place] Comment on above: Performed By: #### C BC, MG, GFR, ANEU, MDW, ADIFF, DIMER, TROPHS, LIP, CMP #### [address] [address] CBCon 05-15-2024 Erythrocyte distribution width (RBC) [Ratio] 12.8 % Normal 11.5-14.5 [facility] ([place]) Comment on above: Performed By: #### C BC, MG, GFR, ANEU, MDW, ADIFF, DIMER, TROPHS, LIP, CMP #### [address] [address] Hematocrit (Bld) [Volume fraction] 40.5 % Normal 37.0-47.0 [facility] ([place]) Comment on above: Performed By: #### C BC, MG, GFR, ANEU, MDW, ADIFF, DIMER, TROPHS, LIP, CMP #### [place] [address] Hgb 13.6 G/dL Normal 12.0-16.0 [facility] ([place] Comment on above: Performed By: #### C BC, MG, GFR, ANEU, MDW, ADIFF, DIMER, TROPHS, LIP, CMP #### [place] [address] MCH (RBC) [Entitic mass] 29.9 pg Normal 27.0-31.2 [facility] ([place] Comment on above: Performed By: #### C BC, MG, GFR, ANEU, MDW, ADIFF, DIMER, TROPHS, LIP, CMP #### [place] [address] MCHC 33.7 G/dL Normal 33.0-37.0 [facility] ([place]) Comment on above: Performed By: #### C BC, MG, GFR, ANEU, MDW, ADIFF, DIMER, TROPHS, LIP, CMP #### [place] [address] MCV (RBC) [Entitic vol] 88.8 fL Normal 80.0-94.0 [facility] ([place] Comment on above: Performed By: #### C BC, MG, GFR, ANEU, MDW, ADIFF, DIMER, TROPHS, LIP, CMP #### [place] [address] Platelet 267 10 3/mcL Normal 130-400 [facility] ([place]) Comment on above: Performed By: #### C BC, MG, GFR, ANEU, MDW, ADIFF, DIMER, TROPHS, LIP, CMP #### [address] [address] Platelet mean volume (Bld) [Entitic vol] 7.7 fL Normal 7.4-10.4 [facility] ([place]) Comment on above: Performed By: #### C BC, MG, GFR, ANEU, MDW, ADIFF, DIMER, TROPHS, LIP, CMP #### [address] [address] RBC 4.56 10 6/mcL Normal 4.20-5.40 [facility] ([place]) Comment on above: Performed By: #### C BC, MG, GFR, ANEU, MDW, ADIFF, DIMER, TROPHS, LIP, CMP #### [address] [address] WBC 5.4 10 3/mcL Normal 4.6-10.8 [facility] ([place]) Comment on above: Performed By: #### C BC, MG, GFR, ANEU, MDW, ADIFF, DIMER, TROPHS, LIP, CMP #### [address] [address] CMPon 05-15-2024 Albumin Level 4.1 G/dL Normal 3.4-4.8 [facility] ([place]) Comment on above: Performed By: #### C BC, MG, GFR, ANEU, MDW, ADIFF, DIMER, TROPHS, LIP, CMP #### [address] [address] Albumin/Globulin [Mass ratio] 1.5 {ratio} Normal 1.1-2.5 [facility] ([place]) Comment on above: Performed By: #### C BC, MG, GFR, ANEU, MDW, ADIFF, DIMER, TROPHS, LIP, CMP #### [address] [address] ALP [Catalytic activity/Vol] 78 U/L Normal 40-135 [facility] ([place] Comment on above: Performed By: #### C BC, MG, GFR, ANEU, MDW, ADIFF, DIMER, TROPHS, LIP, CMP #### [address] [address] ALT [Catalytic activity/Vol] 26 U/L Normal 14-59 [facility] ([place]) Comment on above: Performed By: #### C BC, MG, GFR, ANEU, MDW, ADIFF, DIMER, TROPHS, LIP, CMP #### [address] [address] AST [Catalytic activity/Vol] 19 U/L Normal 10-40 [facility] ([place]) Comment on above: Performed By: #### C BC, MG, GFR, ANEU, MDW, ADIFF, DIMER, TROPHS, LIP, CMP #### [address] [address] Bili Total 0.6 mg/dL Normal 0.2-1.0 [facility] ([place]) Comment on above: Result Comment: Use of this assay is not recommended for patients undergoing treatment with eltrombopag due to the potential for falsely elevated results. Performed By: #### C BC, MG, GFR, ANEU, MDW, ADIFF, DIMER, TROPHS, LIP, CMP #### [address] [address] BUN/Creatinine Ratio 13 ratio Normal 7-27 [facility] ([place]) Comment on above: Performed By: #### C BC, MG, GFR, ANEU, MDW, ADIFF, DIMER, TROPHS, LIP, CMP #### [address] [address] Calcium [Mass/Vol] 9.7 mg/dL Normal 8.4-10.2 [facility] ([place]) Comment on above: Performed By: #### C BC, MG, GFR, ANEU, MDW, ADIFF, DIMER, TROPHS, LIP, CMP #### [address] [address] Chloride [Moles/Vol] 99 mmol/L Normal 98-107 [facility] ([place] Comment on above: Performed By: #### C BC, MG, GFR, ANEU, MDW, ADIFF, DIMER, TROPHS, LIP, CMP #### [address] [address] CO2 [Moles/Vol] 32 mmol/L High 23-31 [facility] ([place]) Comment on above: Performed By: #### C BC, MG, GFR, ANEU, MDW, ADIFF, DIMER, TROPHS, LIP, CMP #### [address] [address] Creatinine [Mass/Vol] 1.04 mg/dL High 0.55-1.02 [facility] ([place]) Comment on above: Performed By: #### C BC, MG, GFR, ANEU, MDW, ADIFF, DIMER, TROPHS, LIP, CMP #### [address] [address] Electrolyte Balance 5.0 mEq/L Normal 4.0-15.0 [facility] ([place]) Comment on above: Performed By: #### C BC, MG, GFR, ANEU, MDW, ADIFF, DIMER, TROPHS, LIP, CMP #### [address] [address] Globulin 2.8 G/dL Normal [facility] ([place]) Comment on above: Performed By: #### C BC, MG, GFR, ANEU, MDW, ADIFF, DIMER, TROPHS, LIP, CMP #### [address] [address] Glucose [Mass/Vol] 87 mg/dL Normal 83-110 [facility] ([place]) Comment on above: Performed By: #### C BC, MG, GFR, ANEU, MDW, ADIFF, DIMER, TROPHS, LIP, CMP #### [address] [address] Potassium [Moles/Vol] 4.6 mmol/L Normal 3.5-5.1 [facility] ([place]) Comment on above: Performed By: #### C BC, MG, GFR, ANEU, MDW, ADIFF, DIMER, TROPHS, LIP, CMP #### [address] [address] Sodium [Moles/Vol] 136 mmol/L Normal 136-145 [facility] ([place] Comment on above: Performed By: #### C BC, MG, GFR, ANEU, MDW, ADIFF, DIMER, TROPHS, LIP, CMP #### [address] [address] Total Protein 6.9 G/dL Normal 6.4-8.2 [facility] ([place]) Comment on above: Performed By: #### C BC, MG, GFR, ANEU, MDW, ADIFF, DIMER, TROPHS, LIP, CMP #### [address] [address] Urea nitrogen [Mass/Vol] 14 mg/dL Normal 7-18 [facility] ([place]) Comment on above: Performed By: #### C BC, MG, GFR, ANEU, MDW, ADIFF, DIMER, TROPHS, LIP, CMP #### [address] [address] [address] ANGIOGRAPHY HEAD W/ CONTR Cassie 05-15-2024 [...] 05/15/2024 9:48:09 AM Ordering Provider: ARGELIA DARBY [facility] ([place]) CT ANGIOGRAPHY NECK W/CONTRA Ronaldo 05-15-2024 CT [...] 05/15/2024 9:55:06 AM Ordering Provider: ARGELIA Horan [facility] ([place]) FT3on 05-15-2024 Free T3 [Mass/Vol] 2.69 pg/mL Normal 2.30-4.00 [facility] ([place]) Comment on above: Performed By: #### C BC, MG, GFR, ANEU, MDW, ADIFF, DIMER, TROPHS, LIP, CMP #### [place] [address] [address] FT4on 05-15-2024 Free T4 [Mass/Vol] 1.01 ng/dL Normal 0.76-1.46 [facility] ([place]) Comment on above: Performed By: #### C BC, MG, GFR, ANEU, MDW, ADIFF, DIMER, TROPHS, LIP, CMP #### [place] [address] [address] LABORATORYOrdered By: SYSTEM SYSTEM on 05-15-2024 Albumin [...] 05-15-2024 TSH Qn 0.64 m[IU]/L Normal 0.36-3.74 [facility] ([place]) Comment on above: Performed By: #### C BC, MG, GFR, DAVID, MDW, ADIFF, DIMER, TROPHS, LIP, CMP #### [address] [address] .GFRon 04-15-2024 GFR 56 ml/min/1.73sqm Normal [facility] ([place]) Comment on above: Result Comment: GFR Population [...] MDW, ADIFF, DIMER, TROPHS, LIP, CMP #### [address] [address] GFR Non- 46 ml/min/1.73sqm Normal [facility] ([place]) Comment on above: Result Comment: GFR Population [...] MDW, ADIFF, DIMER, TROPHS, LIP, CMP #### [address] [address] BMPon 04-15-2024 BUN/Creatinine Ratio 18 ratio Normal 7-27 [facility] ([place]) Comment on above: Performed By: #### C BC, MG, GFR, ANEU, MDW, ADIFF, DIMER, TROPHS, LIP, CMP #### [address] [address] Calcium [Mass/Vol] 9.8 mg/dL Normal 8.4-10.2 [facility] ([place]) Comment on above: Performed By: #### C BC, MG, GFR, ANEU, MDW, ADIFF, DIMER, TROPHS, LIP, CMP #### [address] [address] Chloride [Moles/Vol] 100 mmol/L Normal 98-107 [facility] ([place] Comment on above: Performed By: #### C BC, MG, GFR, ANEU, MDW, ADIFF, DIMER, TROPHS, LIP, CMP #### [address] [address] CO2 [Moles/Vol] 33 mmol/L High 23-31 [facility] ([place]) Comment on above: Performed By: #### C BC, MG, GFR, ANEU, MDW, ADIFF, DIMER, TROPHS, LIP, CMP #### [address] [address] Creatinine [Mass/Vol] 1.14 mg/dL High 0.55-1.02 [facility] ([place]) Comment on above: Performed By: #### C BC, MG, GFR, ANEU, MDW, ADIFF, DIMER, TROPHS, LIP, CMP #### [address] [address] Electrolyte Balance 3.0 mEq/L Low 4.0-15.0 [facility] ([place]) Comment on above: Performed By: #### C BC, MG, GFR, ANEU, MDW, ADIFF, DIMER, TROPHS, LIP, CMP #### [address] [address] Glucose [Mass/Vol] 82 mg/dL Low 83-110 [facility] ([place]) Comment on above: Performed By: #### C BC, MG, GFR, ANEU, MDW, ADIFF, DIMER, TROPHS, LIP, CMP #### [address] [address] Potassium [Moles/Vol] 5.0 mmol/L Normal 3.5-5.1 [facility] ([place]) Comment on above: Performed By: #### C BC, MG, GFR, ANEU, MDW, ADIFF, DIMER, TROPHS, LIP, CMP #### [address] [address] Sodium [Moles/Vol] 136 mmol/L Normal 136-145 [facility] ([place]) Comment on above: Performed By: #### C BC, MG, GFR, ANEU, MDW, ADIFF, DIMER, TROPHS, LIP, CMP #### [address] [address] Urea nitrogen [Mass/Vol] 20 mg/dL High 7-18 [facility] ([place]) Comment on above: Performed By: #### C BC, MG, GFR, ANEU, MDW, ADIFF, DIMER, TROPHS, LIP, CMP #### [address] [address] FT3on 04-15-2024 Free T3 [Mass/Vol] 2.83 pg/mL Normal 2.30-4.00 [facility] ([place]) Comment on above: Performed By: #### C BC, MG, GFR, ANEU, MDW, ADIFF, DIMER, TROPHS, LIP, CMP #### [place] [address] [address] FT4on 04-15-2024 Free T4 [Mass/Vol] 0.86 ng/dL Normal 0.76-1.46 [facility] ([place]) Comment on above: Performed By: #### C BC, MG, GFR, ANEU, MDW, ADIFF, DIMER, TROPHS, LIP, CMP #### [place] [address] [address] LABORATORYOrdered By: SYSTEM SYSTEM on 04-15-2024 Calcium [...] 04-15-2024 TSH Qn 0.97 m[IU]/L Normal 0.36-3.74 [facility] ([place]) Comment on above: Performed By: #### C BC, MG, GFR, ANEU, MDW, ADNELDA, DIMER, TROPHS, LIP, CMP #### [place] [address] [place], [place] [address] OSMOUon 03-04-2024 U Osmolality 246 mOsm/kg Low 390-1090 [facility] ([place]) Comment on above: Performed By: #### C BC, MG, GFR, ANEU, MDW, ADIFF, DIMER, TROPHS, LIP, CMP #### [address] [address] .GFRon 03-03-2024 GFR Non- 46 ml/min/1.73sqm Normal [facility] ([place]) Comment on above: Result Comment: GFR Population [...] MDW, ADIFF, DIMER, TROPHS, LIP, CMP #### [address] [address] GFR 56 ml/min/1.73sqm Normal [facility] ([place]) Comment on above: Result Comment: GFR Population [...] MDW, ADIFF, DIMER, TROPHS, LIP, CMP #### [address] [address] BMPon 03-03-2024 BUN/Creatinine Ratio 18 ratio Normal 7-27 [facility] ([place]) Comment on above: Performed By: #### C BC, MG, GFR, ANEU, MDW, ADIFF, DIMER, TROPHS, LIP, CMP #### [address] [address] Calcium [Mass/Vol] 9.2 mg/dL Normal 8.4-10.2 [facility] ([place]) Comment on above: Performed By: #### C BC, MG, GFR, ANEU, MDW, ADIFF, DIMER, TROPHS, LIP, CMP #### [place] [address] Chloride [Moles/Vol] 100 mmol/L Normal 98-107 [facility] ([place]) Comment on above: Performed By: #### C BC, MG, GFR, ANEU, MDW, ADIFF, DIMER, TROPHS, LIP, CMP #### [address] [address] CO2 [Moles/Vol] 31 mmol/L Normal 23-31 [facility] ([place]) Comment on above: Performed By: #### C BC, MG, GFR, ANEU, MDW, ADIFF, DIMER, TROPHS, LIP, CMP #### [address] [address] Creatinine [Mass/Vol] 1.13 mg/dL High 0.55-1.02 [facility] ([place]) Comment on above: Performed By: #### C BC, MG, GFR, ANEU, MDW, ADIFF, DIMER, TROPHS, LIP, CMP #### [address] [address] Electrolyte Balance 7.0 mEq/L Normal 4.0-15.0 [facility] ([place]) Comment on above: Performed By: #### C BC, MG, GFR, ANEU, MDW, ADIFF, DIMER, TROPHS, LIP, CMP #### [place] [id number] Glucose [Mass/Vol] 107 mg/dL Normal 83-110 [facility] ([place]) Comment on above: Performed By: #### C BC, MG, GFR, ANEU, MDW, ADIFF, DIMER, TROPHS, LIP, CMP #### [address] [address] Potassium [Moles/Vol] 5.0 mmol/L Normal 3.5-5.1 [facility] ([place]) Comment on above: Performed By: #### C BC, MG, GFR, ANEU, MDW, ADIFF, DIMER, TROPHS, LIP, CMP #### [address] [address] Sodium [Moles/Vol] 138 mmol/L Normal 136-145 [facility] ([place]) Comment on above: Performed By: #### C BC, MG, GFR, ANEU, MDW, ADIFF, DIMER, TROPHS, LIP, CMP #### [place] [address] Urea nitrogen [Mass/Vol] 20 mg/dL High 7-18 [facility] ([place]) Comment on above: Performed By: #### C BC, MG, GFR, ANEU, MDW, ADIFF, DIMER, TROPHS, LIP, CMP #### [place] [id number] FT3on 03-03-2024 Free T3 [Mass/Vol] 2.14 pg/mL Low 2.30-4.00 [facility] ([place]) Comment on above: Performed By: #### C BC, MG, GFR, ANEU, MDW, ADIFF, DIMER, TROPHS, LIP, CMP #### [address] [address] FT4on 03-03-2024 Free T4 [Mass/Vol] 0.84 ng/dL Normal 0.76-1.46 [facility] ([place]) Comment on above: Performed By: #### C BC, MG, GFR, ANEU, MDW, ADIFF, DIMER, TROPHS, LIP, CMP #### [place] [address] LABORATORYOrdered By: SYSTEM SYSTEM on 03-03-2024 Sodium [...] 03-03-2024 Magnesium [Mass/Vol] 2.1 mg/dL Normal 1.8-2.4 [facility] ([place]) Comment on above: Performed By: #### C BC, MG, GFR, ANEU, MDW, ADIFF, DIMER, TROPHS, LIP, CMP #### [place] [address] [address] NAURon 03-03-2024 Sodium [Moles/Vol] 55 mmol/L Normal 20-110 [facility] ([place]) Comment on above: Performed By: #### C BC, MG, GFR, ANEU, MDW, ADIFF, DIMER, TROPHS, LIP, CMP #### [place] [address] OSMOSon 03-03-2024 Osmolality [Osmolality] 289 mosm/kg Normal 275-300 [facility] ([place]) Comment on above: Performed By: #### C BC, MG, GFR, ANEU, MDW, ADIFF, DIMER, TROPHS, LIP, CMP #### [place] [address] THYABon 03-03-2024 anti-Thyroid Peroxidase 68 units/ml High 0-60 [facility] ([place]) Comment on above: Result Comment: No te - New Reference Range in effect 20 Performed By: #### C BC, MG, GFR, ANEU, MDW, ADIFF, DIMER, TROPHS, LIP, CMP #### [place] [address] Thyroglobulin Ab 21 units/ml Normal 15-60 [facility] ([place]) Comment on above: Result Comment: No te - New Reference Range in effect 20 Performed By: #### C BC, MG, GFR, ANEU, MDW, ADIFF, DIMER, TROPHS, LIP, CMP #### [place] [address] TSHon 03-03-2024 TSH Qn 17.88 m[IU]/L High 0.36-3.74 [facility] ([place]) Comment on above: Performed By: #### C BC, MG, GFR, ANEU, MDW, ADIFF, DIMER, TROPHS, LIP, CMP #### [place] [address] .GFRon 01-30-2024 GFR 54 ml/min/1.73sqm Normal [facility] ([place]) Comment on above: Result Comment: GFR Population [...] MDW, ADIFF, DIMER, TROPHS, LIP, CMP #### [address] [address] GFR Non- 45 ml/min/1.73sqm Normal [facility] ([place]) Comment on above: Result Comment: GFR Population [...] MDW, ADIFF, DIMER, TROPHS, LIP, CMP #### [address] [address] CMPon 01-30-2024 Albumin Level 4.4 G/dL Normal 3.4-4.8 [facility] ([place]) Comment on above: Performed By: #### C BC, MG, GFR, ANEU, MDW, ADIFF, DIMER, TROPHS, LIP, CMP #### [address] [address] Albumin/Globulin [Mass ratio] 1.4 {ratio} Normal 1.1-2.5 [facility] ([place]) Comment on above: Performed By: #### C BC, MG, GFR, ANEU, MDW, ADIFF, DIMER, TROPHS, LIP, CMP #### [address] [address] ALP [Catalytic activity/Vol] 78 U/L Normal 40-135 [facility] ([place]) Comment on above: Performed By: #### C BC, MG, GFR, ANEU, MDW, ADIFF, DIMER, TROPHS, LIP, CMP #### [address] [address] ALT [Catalytic activity/Vol] 21 U/L Normal 14-59 [facility] ([place]) Comment on above: Performed By: #### C BC, MG, GFR, ANEU, MDW, ADIFF, DIMER, TROPHS, LIP, CMP #### [address] [address] AST [Catalytic activity/Vol] 18 U/L Normal 10-40 [facility] ([place]) Comment on above: Performed By: #### C BC, MG, GFR, ANEU, MDW, ADIFF, DIMER, TROPHS, LIP, CMP #### [address] [address] Bili Total 0.4 mg/dL Normal 0.2-1.0 [facility] ([place]) Comment on above: Result Comment: Use of this assay is not recommended for patients undergoing treatment with eltrombopag due to the potential for falsely elevated results. Performed By: #### C BC, MG, GFR, ANEU, MDW, ADIFF, DIMER, TROPHS, LIP, CMP #### [address] [address] BUN/Creatinine Ratio 19 ratio Normal 7-27 [facility] ([place]) Comment on above: Performed By: #### C BC, MG, GFR, ANEU, MDW, ADIFF, DIMER, TROPHS, LIP, CMP #### [address] [address] Calcium [Mass/Vol] 9.3 mg/dL Normal 8.4-10.2 [facility] ([place] Comment on above: Performed By: #### C BC, MG, GFR, ANEU, MDW, ADIFF, DIMER, TROPHS, LIP, CMP #### [address] [address] Chloride [Moles/Vol] 98 mmol/L Normal 98-107 [facility] ([place] Comment on above: Performed By: #### C BC, MG, GFR, ANEU, MDW, ADIFF, DIMER, TROPHS, LIP, CMP #### [address] [address] CO2 [Moles/Vol] 27 mmol/L Normal 23-31 [facility] ([place]) Comment on above: Performed By: #### C BC, MG, GFR, ANEU, MDW, ADIFF, DIMER, TROPHS, LIP, CMP #### [place] [address] Creatinine [Mass/Vol] 1.17 mg/dL High 0.55-1.02 [facility] ([place]) Comment on above: Performed By: #### C BC, MG, GFR, ANEU, MDW, ADIFF, DIMER, TROPHS, LIP, CMP #### [address] [address] Electrolyte Balance 11.0 mEq/L Normal 4.0-15.0 [facility] ([place]) Comment on above: Performed By: #### C BC, MG, GFR, ANEU, MDW, ADIFF, DIMER, TROPHS, LIP, CMP #### [address] [address] Globulin 3.1 G/dL Normal [facility] ([place]) Comment on above: Performed By: #### C BC, MG, GFR, ANEU, MDW, ADIFF, DIMER, TROPHS, LIP, CMP #### [address] [address] Glucose [Mass/Vol] 86 mg/dL Normal 83-110 [facility] ([place]) Comment on above: Performed By: #### C BC, MG, GFR, ANEU, MDW, ADIFF, DIMER, TROPHS, LIP, CMP #### [address] [address] Potassium [Moles/Vol] 4.6 mmol/L Normal 3.5-5.1 [facility] ([place]) Comment on above: Performed By: #### C BC, MG, GFR, ANEU, MDW, ADIFF, DIMER, TROPHS, LIP, CMP #### [address] [address] Sodium [Moles/Vol] 136 mmol/L Normal 136-145 [facility] ([place]) Comment on above: Performed By: #### C BC, MG, GFR, ANEU, MDW, ADIFF, DIMER, TROPHS, LIP, CMP #### [address] [address] Total Protein 7.5 G/dL Normal 6.4-8.2 [facility] ([place]) Comment on above: Performed By: #### C BC, MG, GFR, ANEU, MDW, ADIFF, DIMER, TROPHS, LIP, CMP #### [address] [address] Urea nitrogen [Mass/Vol] 22 mg/dL High 7-18 [facility] ([place]) Comment on above: Performed By: #### C BC, MG, GFR, ANEU, MDW, ADIFF, DIMER, TROPHS, LIP, CMP #### [address] [address] MGon 01-30-2024 Magnesium [Mass/Vol] 2.0 mg/dL Normal 1.8-2.4 [facility] ([place]) Comment on above: Performed By: #### C BC, MG, GFR, ANEU, MDW, ADIFF, DIMER, TROPHS, LIP, CMP #### [address] [address] TSHon 01-30-2024 TSH Qn 29.66 m[IU]/L High 0.36-3.74 [facility] ([place]) Comment on above: Performed By: #### C BC, MG, GFR, ANEU, MDW, ADIFF, DIMER, TROPHS, LIP, CMP #### [address] [address] .GFRon 12-11-2023 GFR 55 ml/min/1.73sqm Normal [facility] ([place]) Comment on above: Result Comment: GFR Population [...] MDW, ADIFF, DIMER, TROPHS, LIP, CMP #### [address] [address] GFR Non- 45 ml/min/1.73sqm Normal [facility] ([place]) Comment on above: Result Comment: GFR Population [...] MDW, ADIFF, DIMER, TROPHS, LIP, CMP #### [address] [address] BMPon 12-11-2023 BUN/Creatinine Ratio 15 ratio Normal 7-27 [facility] ([place]) Comment on above: Performed By: #### C BC, MG, GFR, ANEU, MDW, ADIFF, DIMER, TROPHS, LIP, CMP #### [address] [address] Calcium [Mass/Vol] 9.4 mg/dL Normal 8.4-10.2 [facility] ([place]) Comment on above: Performed By: #### C BC, MG, GFR, ANEU, MDW, ADIFF, DIMER, TROPHS, LIP, CMP #### [address] [address] Chloride [Moles/Vol] 101 mmol/L Normal 98-107 [facility] ([place]) Comment on above: Performed By: #### C BC, MG, GFR, ANEU, MDW, ADIFF, DIMER, TROPHS, LIP, CMP #### [address] [address] CO2 [Moles/Vol] 31 mmol/L Normal 23-31 [facility] ([place]) Comment on above: Performed By: #### C BC, MG, GFR, ANEU, MDW, ADIFF, DIMER, TROPHS, LIP, CMP #### [address] [address] Creatinine [Mass/Vol] 1.15 mg/dL High 0.55-1.02 [facility] ([place]) Comment on above: Performed By: #### C BC, MG, GFR, ANEU, MDW, ADIFF, DIMER, TROPHS, LIP, CMP #### [address] [address] Electrolyte Balance 5.0 mEq/L Normal 4.0-15.0 [facility] ([place]) Comment on above: Performed By: #### C BC, MG, GFR, ANEU, MDW, ADIFF, DIMER, TROPHS, LIP, CMP #### [address] [address] Glucose [Mass/Vol] 93 mg/dL Normal 83-110 [facility] ([place]) Comment on above: Performed By: #### C BC, MG, GFR, ANEU, MDW, ADIFF, DIMER, TROPHS, LIP, CMP #### [address] [address] Potassium [Moles/Vol] 5.0 mmol/L Normal 3.5-5.1 [facility] ([place]) Comment on above: Performed By: #### C BC, MG, GFR, ANEU, MDW, ADIFF, DIMER, TROPHS, LIP, CMP #### [address] [address] Sodium [Moles/Vol] 137 mmol/L Normal 136-145 [facility] ([place]) Comment on above: Performed By: #### C BC, MG, GFR, ANEU, MDW, ADIFF, DIMER, TROPHS, LIP, CMP #### [address] [address] Urea nitrogen [Mass/Vol] 17 mg/dL Normal 7-18 [facility] ([place]) Comment on above: Performed By: #### C BC, MG, GFR, ANEU, MDW, ADIFF, DIMER, TROPHS, LIP, CMP #### [address] [address] LABORATORYOrdered By: SYSTEM SYSTEM on 12-11-2023 Calcium [...] SS .GFRon 12-04-2023 GFR 54 ml/min/1.73sqm Normal [facility] ([place]) Comment on above: Result Comment: GFR Population [...] MDW, ADIFF, DIMER, TROPHS, LIP, CMP #### [address] [address] GFR Non- 45 ml/min/1.73sqm Normal [facility] ([place]) Comment on above: Result Comment: GFR Population [...] MDW, ADIFF, DIMER, TROPHS, LIP, CMP #### [address] [address] BMPon 12-04-2023 BUN/Creatinine Ratio 18 ratio Normal 7-27 [facility] ([place]) Comment on above: Performed By: #### C BC, MG, GFR, ANEU, MDW, ADIFF, DIMER, TROPHS, LIP, CMP #### [address] [address] Calcium [Mass/Vol] 9.8 mg/dL Normal 8.4-10.2 [facility] ([place]) Comment on above: Performed By: #### C BC, MG, GFR, ANEU, MDW, ADIFF, DIMER, TROPHS, LIP, CMP #### [address] [address] Chloride [Moles/Vol] 100 mmol/L Normal 98-107 [facility] ([place]) Comment on above: Performed By: #### C BC, MG, GFR, ANEU, MDW, ADIFF, DIMER, TROPHS, LIP, CMP #### [address] [address] CO2 [Moles/Vol] 29 mmol/L Normal 23-31 [facility] ([place]) Comment on above: Performed By: #### C BC, MG, GFR, ANEU, MDW, ADIFF, DIMER, TROPHS, LIP, CMP #### [address] [address] Creatinine [Mass/Vol] 1.16 mg/dL High 0.55-1.02 [facility] ([place]) Comment on above: Performed By: #### C BC, MG, GFR, ANEU, MDW, ADIFF, DIMER, TROPHS, LIP, CMP #### [address] [address] Electrolyte Balance 8.0 mEq/L Normal 4.0-15.0 [facility] ([place]) Comment on above: Performed By: #### C BC, MG, GFR, ANEU, MDW, ADIFF, DIMER, TROPHS, LIP, CMP #### [address] [address] Glucose [Mass/Vol] 111 mg/dL High 83-110 [facility] ([place]) Comment on above: Performed By: #### C BC, MG, GFR, ANEU, MDW, ADIFF, DIMER, TROPHS, LIP, CMP #### [address] [address] Potassium [Moles/Vol] 4.2 mmol/L Normal 3.5-5.1 [facility] ([place]) Comment on above: Performed By: #### C BC, MG, GFR, ANEU, MDW, ADIFF, DIMER, TROPHS, LIP, CMP #### [address] [address] Sodium [Moles/Vol] 137 mmol/L Normal 136-145 [facility] ([place]) Comment on above: Performed By: #### C BC, MG, GFR, ANEU, MDW, ADIFF, DIMER, TROPHS, LIP, CMP #### [address] [address] Urea nitrogen [Mass/Vol] 21 mg/dL High 7-18 [facility] ([place]) Comment on above: Performed By: #### C BC, MG, GFR, ANEU, MDW, ADIFF, DIMER, TROPHS, LIP, CMP #### [address] [address] LABORATORYOrdered By: Juliet Celeste on 12-04-2023 Albumin [...] 12-04-2023 U Creatinine 18.9 mg/dL Low 28.0-117.0 [facility] ([place]) Comment on above: Performed By: #### C BC, MG, GFR, ANEU, MDW, ADIFF, DIMER, TROPHS, LIP, CMP #### [address] [address] U Microalb 870 mcg/dL Normal [facility] ([place]) Comment on above: Performed By: #### C BC, MG, GFR, ANEU, MDW, ADIFF, DIMER, TROPHS, LIP, CMP #### [address] [address] U Ratio Alb/Cre 46 mcg/mg High 0-30 [facility] ([place]) Comment on above: Performed By: #### C BC, MG, GFR, ANEU, MDW, ADIFF, DIMER, TROPHS, LIP, CMP #### [address] [address] .GFRon 10-10-2023 GFR 57 ml/min/1.73sqm Normal [facility] ([place]) Comment on above: Result Comment: GFR Population [...] MDW, ADIFF, DIMER, TROPHS, LIP, CMP #### [address] [address] GFR Non- 47 ml/min/1.73sqm Normal [facility] ([place]) Comment on above: Result Comment: GFR Population [...] MDW, ADIFF, DIMER, TROPHS, LIP, CMP #### [address] [address] BMPon 10-10-2023 BUN/Creatinine Ratio 15 ratio Normal 7-27 [facility] ([place]) Comment on above: Performed By: #### C BC, MG, GFR, ANEU, MDW, ADIFF, DIMER, TROPHS, LIP, CMP #### [address] [address] Calcium [Mass/Vol] 9.1 mg/dL Normal 8.4-10.2 [facility] ([place]) Comment on above: Performed By: #### C BC, MG, GFR, ANEU, MDW, ADIFF, DIMER, TROPHS, LIP, CMP #### [address] [address] Chloride [Moles/Vol] 100 mmol/L Normal 98-107 [facility] ([place]) Comment on above: Performed By: #### C BC, MG, GFR, ANEU, MDW, ADIFF, DIMER, TROPHS, LIP, CMP #### [address] [address] CO2 [Moles/Vol] 28 mmol/L Normal 23-31 [facility] ([place]) Comment on above: Performed By: #### C BC, MG, GFR, ANEU, MDW, ADIFF, DIMER, TROPHS, LIP, CMP #### [address] [address] Creatinine [Mass/Vol] 1.11 mg/dL High 0.55-1.02 [facility] ([place]) Comment on above: Performed By: #### C BC, MG, GFR, ANEU, MDW, ADIFF, DIMER, TROPHS, LIP, CMP #### [address] [address] Electrolyte Balance 9.0 mEq/L Normal 4.0-15.0 [facility] ([place]) Comment on above: Performed By: #### C BC, MG, GFR, ANEU, MDW, ADIFF, DIMER, TROPHS, LIP, CMP #### [place] [address] Glucose [Mass/Vol] 138 mg/dL High 83-110 [facility] ([place]) Comment on above: Performed By: #### C BC, MG, GFR, ANEU, MDW, ADIFF, DIMER, TROPHS, LIP, CMP #### [address] [address] Potassium [Moles/Vol] 4.4 mmol/L Normal 3.5-5.1 [facility] ([place]) Comment on above: Performed By: #### C BC, MG, GFR, ANEU, MDW, ADIFF, DIMER, TROPHS, LIP, CMP #### [address] [address] Sodium [Moles/Vol] 137 mmol/L Normal 136-145 [facility] ([place]) Comment on above: Performed By: #### C BC, MG, GFR, ANEU, MDW, ADIFF, DIMER, TROPHS, LIP, CMP #### [address] [address] Urea nitrogen [Mass/Vol] 17 mg/dL Normal 7-18 [facility] ([place]) Comment on above: Performed By: #### C BC, MG, GFR, ANEU, MDW, ADIFF, DIMER, TROPHS, LIP, CMP #### [address] [address] LABORATORYOrdered By: SYSTEM SYSTEM on 10-10-2023 Calcium [...] SS .GFRon 09-13-2023 GFR 62 ml/min/1.73sqm Normal [facility] ([place]) Comment on above: Result Comment: GFR Population [...] #### C BC, MG, GFR, ANEU, MDW, ADNELDA, DIMER, TROPHS, LIP, CMP #### [place] [address] [address] GFR Non- 51 ml/min/1.73sqm Normal [facility] ([place]) Comment on above: Result Comment: GFR Population [...] MDW, ADIFF, DIMER, TROPHS, LIP, CMP #### [address] [address] BMPon 09-13-2023 BUN/Creatinine Ratio 14 ratio Normal 7-27 [facility] ([place]) Comment on above: Performed By: #### C BC, MG, GFR, ANEU, MDW, ADIFF, DIMER, TROPHS, LIP, CMP #### [address] [address] Calcium [Mass/Vol] 9.3 mg/dL Normal 8.4-10.2 [facility] ([place]) Comment on above: Performed By: #### C BC, MG, GFR, ANEU, MDW, ADIFF, DIMER, TROPHS, LIP, CMP #### [address] [address] Chloride [Moles/Vol] 98 mmol/L Normal 98-107 [facility] ([place]) Comment on above: Performed By: #### C BC, MG, GFR, ANEU, MDW, ADIFF, DIMER, TROPHS, LIP, CMP #### [address] [address] CO2 [Moles/Vol] 28 mmol/L Normal 23-31 [facility] ([place]) Comment on above: Performed By: #### C BC, MG, GFR, ANEU, MDW, ADIFF, DIMER, TROPHS, LIP, CMP #### [address] [address] Creatinine [Mass/Vol] 1.04 mg/dL High 0.55-1.02 [facility] ([place]) Comment on above: Performed By: #### C BC, MG, GFR, ANEU, MDW, ADIFF, DIMER, TROPHS, LIP, CMP #### [address] [address] Electrolyte Balance 12.0 mEq/L Normal 4.0-15.0 [facility] ([place]) Comment on above: Performed By: #### C BC, MG, GFR, ANEU, MDW, ADIFF, DIMER, TROPHS, LIP, CMP #### [address] [address] Glucose [Mass/Vol] 107 mg/dL Normal 83-110 [facility] ([place]) Comment on above: Performed By: #### C BC, MG, GFR, ANEU, MDW, ADIFF, DIMER, TROPHS, LIP, CMP #### [address] [address] Potassium [Moles/Vol] 4.5 mmol/L Normal 3.5-5.1 [facility] ([place]) Comment on above: Performed By: #### C BC, MG, GFR, ANEU, MDW, ADIFF, DIMER, TROPHS, LIP, CMP #### [address] [address] Sodium [Moles/Vol] 138 mmol/L Normal 136-145 [facility] ([place] Comment on above: Performed By: #### C BC, MG, GFR, ANEU, MDW, ADIFF, DIMER, TROPHS, LIP, CMP #### [address] [address] Urea nitrogen [Mass/Vol] 15 mg/dL Normal 7-18 [facility] ([place]) Comment on above: Performed By: #### C BC, MG, GFR, ANEU, MDW, ADIFF, DIMER, TROPHS, LIP, CMP #### [address] [address] .GFRon 09-11-2023 GFR Non- 53 ml/min/1.73sqm Normal [facility] ([place] Comment on above: Result Comment: GFR Population [...] MDW, ADIFF, DIMER, TROPHS, LIP, CMP #### [address] [address] GFR 64 ml/min/1.73sqm Normal [facility] ([place]) Comment on above: Result Comment: GFR Population [...] MDW, ADIFF, DIMER, TROPHS, LIP, CMP #### [address] [address] CMPon 09-11-2023 Albumin Level 4.2 G/dL Normal 3.4-4.8 [facility] ([place]) Comment on above: Performed By: #### C BC, MG, GFR, ANEU, MDW, ADIFF, DIMER, TROPHS, LIP, CMP #### [address] [address] Albumin/Globulin [Mass ratio] 1.3 {ratio} Normal 1.1-2.5 [facility] ([place]) Comment on above: Performed By: #### C BC, MG, GFR, ANEU, MDW, ADIFF, DIMER, TROPHS, LIP, CMP #### [address] [address] ALP [Catalytic activity/Vol] 82 U/L Normal 40-135 [facility] ([place]) Comment on above: Performed By: #### C BC, MG, GFR, ANEU, MDW, ADIFF, DIMER, TROPHS, LIP, CMP #### [address] [address] ALT [Catalytic activity/Vol] 21 U/L Normal 14-59 [facility] ([place]) Comment on above: Performed By: #### C BC, MG, GFR, ANEU, MDW, ADIFF, DIMER, TROPHS, LIP, CMP #### [address] [address] AST [Catalytic activity/Vol] 15 U/L Normal 10-40 [facility] ([place]) Comment on above: Performed By: #### C BC, MG, GFR, ANEU, MDW, ADIFF, DIMER, TROPHS, LIP, CMP #### [address] [address] Bili Total 0.3 mg/dL Normal 0.2-1.0 [facility] ([place]) Comment on above: Result Comment: Use of this assay is not recommended for patients undergoing treatment with eltrombopag due to the potential for falsely elevated results. Performed By: #### C BC, MG, GFR, ANEU, MDW, ADIFF, DIMER, TROPHS, LIP, CMP #### [address] [address] BUN/Creatinine Ratio 15 ratio Normal 7-27 [facility] ([place]) Comment on above: Performed By: #### C BC, MG, GFR, ANEU, MDW, ADIFF, DIMER, TROPHS, LIP, CMP #### [address] [address] Calcium [Mass/Vol] 9.5 mg/dL Normal 8.4-10.2 [facility] ([place]) Comment on above: Performed By: #### C BC, MG, GFR, ANEU, MDW, ADIFF, DIMER, TROPHS, LIP, CMP #### [address] [address] Chloride [Moles/Vol] 96 mmol/L Low 98-107 [facility] ([place]) Comment on above: Performed By: #### C BC, MG, GFR, ANEU, MDW, ADIFF, DIMER, TROPHS, LIP, CMP #### [address] [address] CO2 [Moles/Vol] 31 mmol/L Normal 23-31 [facility] ([place]) Comment on above: Performed By: #### C BC, MG, GFR, ANEU, MDW, ADIFF, DIMER, TROPHS, LIP, CMP #### [address] [address] Creatinine [Mass/Vol] 1.01 mg/dL Normal 0.55-1.02 [facility] ([place]) Comment on above: Performed By: #### C BC, MG, GFR, ANEU, MDW, ADIFF, DIMER, TROPHS, LIP, CMP #### [address] [address] Electrolyte Balance 7.0 mEq/L Normal 4.0-15.0 [facility] ([place]) Comment on above: Performed By: #### C BC, MG, GFR, ANEU, MDW, ADIFF, DIMER, TROPHS, LIP, CMP #### [address] [address] Globulin 3.2 G/dL Normal [facility] ([place]) Comment on above: Performed By: #### C BC, MG, GFR, ANEU, MDW, ADIFF, DIMER, TROPHS, LIP, CMP #### [address] [address] Glucose [Mass/Vol] 107 mg/dL Normal 83-110 [facility] ([place]) Comment on above: Performed By: #### C BC, MG, GFR, ANEU, MDW, ADIFF, DIMER, TROPHS, LIP, CMP #### [address] [address] Potassium [Moles/Vol] 5.5 mmol/L High 3.5-5.1 [facility] ([place]) Comment on above: Performed By: #### C BC, MG, GFR, ANEU, MDW, ADIFF, DIMER, TROPHS, LIP, CMP #### [address] [address] Sodium [Moles/Vol] 134 mmol/L Low 136-145 [facility] ([place]) Comment on above: Performed By: #### C BC, MG, GFR, ANEU, MDW, ADIFF, DIMER, TROPHS, LIP, CMP #### [address] [address] Total Protein 7.4 G/dL Normal 6.4-8.2 [facility] ([place]) Comment on above: Performed By: #### C BC, MG, GFR, ANEU, MDW, ADIFF, DIMER, TROPHS, LIP, CMP #### [place] [address] Urea nitrogen [Mass/Vol] 15 mg/dL Normal 7-18 [facility] ([place]) Comment on above: Performed By: #### C BC, MG, GFR, ANEU, MDW, ADIFF, DIMER, TROPHS, LIP, CMP #### [address] [address] .Auto Diffon 09-02-2023 Basophil, Absolute 0.0 10 3/mcL Normal 0.0-0.2 [facility] ([place]) Comment on above: Performed By: #### C BC, MG, GFR, ANEU, MDW, ADIFF, DIMER, TROPHS, LIP, CMP #### [address] [address] Basophils/100 WBC (Bld) 0.4 % Normal 0.0-2.5 [facility] ([place]) Comment on above: Performed By: #### C BC, MG, GFR, ANEU, MDW, ADIFF, DIMER, TROPHS, LIP, CMP #### [address] [address] Eosinophil, Absolute 0.1 10 3/mcL Normal 0.0-0.4 [facility] ([place]) Comment on above: Performed By: #### C BC, MG, GFR, ANEU, MDW, ADIFF, DIMER, TROPHS, LIP, CMP #### [address] [address] Eosinophils/100 WBC (Bld) 1.4 % Normal 0.0-7.0 [facility] ([place]) Comment on above: Performed By: #### C BC, MG, GFR, ANEU, MDW, ADIFF, DIMER, TROPHS, LIP, CMP #### [address] [address] Lymphocyte, Absolute 0.9 10 3/mcL Normal 0.8-3.9 [facility] ([place]) Comment on above: Performed By: #### C BC, MG, GFR, ANEU, MDW, ADIFF, DIMER, TROPHS, LIP, CMP #### [address] [address] Lymphocytes/100 WBC (Bld) 15.7 % Normal 10.0-50.0 [facility] ([place]) Comment on above: Performed By: #### C BC, MG, GFR, ANEU, MDW, ADIFF, DIMER, TROPHS, LIP, CMP #### [address] [address] Monocyte, Absolute 0.4 10 3/mcL Normal 0.2-1.0 [facility] ([place]) Comment on above: Performed By: #### C BC, MG, GFR, ANEU, MDW, ADIFF, DIMER, TROPHS, LIP, CMP #### [address] [address] Monocytes/100 WBC (Bld) 7.9 % Normal 1.7-13.0 [facility] ([place]) Comment on above: Performed By: #### C BC, MG, GFR, ANEU, MDW, ADIFF, DIMER, TROPHS, LIP, CMP #### [address] [address] Neutrophils/100 WBC (Bld) 74.6 % Normal 37.0-80.0 [facility] ([place]) Comment on above: Performed By: #### C BC, MG, GFR, ANEU, MDW, ADIFF, DIMER, TROPHS, LIP, CMP #### [address] [address] .GFRon 09-02-2023 GFR 70 ml/min/1.73sqm Normal [facility] ([place]) Comment on above: Result Comment: GFR Population [...] MDW, ADIFF, DIMER, TROPHS, LIP, CMP #### [address] [address] GFR Non- 58 ml/min/1.73sqm Normal [facility] ([place]) Comment on above: Result Comment: GFR Population [...] MDW, ADIFF, DIMER, TROPHS, LIP, CMP #### [address] [address] .MDWon 09-02-2023 Monocyte Distribution Width 16.32 Normal 0.00-20.00 [facility] ([place]) Comment on above: Result Comment: For ED adult patients suspected of sepsis, MDW<=20.0 does not rule out sepsis or risk of sepsis Performed By: #### C BC, MG, GFR, ANEU, MDW, ADIFF, DIMER, TROPHS, LIP, CMP #### [address] [address] .NEUABSon 09-02-2023 Neutrophil, Absolute 4.2 10 3/mcL Normal 2.9-6.2 [facility] ([place]) Comment on above: Performed By: #### C BC, MG, GFR, ANEU, MDW, ADIFF, DIMER, TROPHS, LIP, CMP #### [address] [address] .Urinalysis Microscopic (AO) on 09-02-2023 UA RBC None Seen Normal None Seen [facility] ([place]) Comment on above: Performed By: #### U A, [place] ####[address] [address] UA Squam Epithelial 0-5 Abnormal None Seen [facility] ([place]) Comment on above: Performed By: #### U A, [place] ####[address] [address] UA WBC 0-5 Abnormal None Seen [facility] ([place]) Comment on above: Performed By: #### U A, [place] ####[address] [address] BMPon 09-02-2023 BUN/Creatinine Ratio 14 ratio Normal 7-27 [facility] ([place]) Comment on above: Performed By: #### C BC, MG, GFR, ANEU, MDW, ADIFF, DIMER, TROPHS, LIP, CMP #### [address] [address] Calcium [Mass/Vol] 9.3 mg/dL Normal 8.4-10.2 [facility] ([place]) Comment on above: Performed By: #### C BC, MG, GFR, ANEU, MDW, ADIFF, DIMER, TROPHS, LIP, CMP #### [address] [address] Chloride [Moles/Vol] 101 mmol/L Normal 98-107 [facility] ([place]) Comment on above: Performed By: #### C BC, MG, GFR, ANEU, MDW, ADIFF, DIMER, TROPHS, LIP, CMP #### [address] [address] CO2 [Moles/Vol] 27 mmol/L Normal 23-31 [facility] ([place]) Comment on above: Performed By: #### C BC, MG, GFR, ANEU, MDW, ADIFF, DIMER, TROPHS, LIP, CMP #### [address] [address] Creatinine [Mass/Vol] 0.93 mg/dL Normal 0.55-1.02 [facility] ([place]) Comment on above: Performed By: #### C BC, MG, GFR, ANEU, MDW, ADIFF, DIMER, TROPHS, LIP, CMP #### [address] [address] Electrolyte Balance 11.0 mEq/L Normal 4.0-15.0 [facility] ([place]) Comment on above: Performed By: #### C BC, MG, GFR, ANEU, MDW, ADIFF, DIMER, TROPHS, LIP, CMP #### [address] [address] Glucose [Mass/Vol] 101 mg/dL Normal 83-110 [facility] ([place]) Comment on above: Performed By: #### C BC, MG, GFR, ANEU, MDW, ADIFF, DIMER, TROPHS, LIP, CMP #### [address] [address] Potassium [Moles/Vol] 4.4 mmol/L Normal 3.5-5.1 [facility] ([place]) Comment on above: Performed By: #### C BC, MG, GFR, ANEU, MDW, ADIFF, DIMER, TROPHS, LIP, CMP #### [address] [address] Sodium [Moles/Vol] 139 mmol/L Normal 136-145 [facility] ([place]) Comment on above: Performed By: #### C BC, MG, GFR, ANEU, MDW, ADIFF, DIMER, TROPHS, LIP, CMP #### [place] [address] Urea nitrogen [Mass/Vol] 13 mg/dL Normal 7-18 [facility] ([place]) Comment on above: Performed By: #### C BC, MG, GFR, ANEU, MDW, ADIFF, DIMER, TROPHS, LIP, CMP #### [place] [address] CBCon 09-02-2023 Erythrocyte distribution width (RBC) [Ratio] 14.5 % Normal 11.5-14.5 [facility] ([place]) Comment on above: Performed By: #### C BC, MG, GFR, ANEU, MDW, ADIFF, DIMER, TROPHS, LIP, CMP #### [place] [phone] Hematocrit (Bld) [Volume fraction] 37.5 % Normal 37.0-47.0 [facility] ([place]) Comment on above: Performed By: #### C BC, MG, GFR, ANEU, MDW, ADIFF, DIMER, TROPHS, LIP, CMP #### [place] [phone] Hgb 12.8 G/dL Normal 12.0-16.0 [facility] ([place]) Comment on above: Performed By: #### C BC, MG, GFR, ANEU, MDW, ADIFF, DIMER, TROPHS, LIP, CMP #### [place] [phone] MCH (RBC) [Entitic mass] 29.5 pg Normal 27.0-31.2 [facility] ([place]) Comment on above: Performed By: #### C BC, MG, GFR, ANEU, MDW, ADIFF, DIMER, TROPHS, LIP, CMP #### [address] [address] MCHC 34.1 G/dL Normal 33.0-37.0 [facility] ([place]) Comment on above: Performed By: #### C BC, MG, GFR, ANEU, MDW, ADIFF, DIMER, TROPHS, LIP, CMP #### [place] [address] MCV (RBC) [Entitic vol] 86.5 fL Normal 80.0-94.0 [facility] ([place]) Comment on above: Performed By: #### C BC, MG, GFR, ANEU, MDW, ADIFF, DIMER, TROPHS, LIP, CMP #### [place] [address] Platelet 269 10 3/mcL Normal 130-400 [facility] ([place]) Comment on above: Performed By: #### C BC, MG, GFR, ANEU, MDW, ADIFF, DIMER, TROPHS, LIP, CMP #### [place] [address] Platelet mean volume (Bld) [Entitic vol] 7.5 fL Normal 7.4-10.4 [facility] ([place]) Comment on above: Performed By: #### C BC, MG, GFR, ANEU, MDW, ADIFF, DIMER, TROPHS, LIP, CMP #### [place] [address] RBC 4.34 10 6/mcL Normal 4.20-5.40 [facility] ([place]) Comment on above: Performed By: #### C BC, MG, GFR, ANEU, MDW, ADIFF, DIMER, TROPHS, LIP, CMP #### [place] [address] WBC 5.6 10 3/mcL Normal 4.6-10.8 [facility] ([place]) Comment on above: Performed By: #### C BC, MG, GFR, ANEU, MDW, ADIFF, DIMER, TROPHS, LIP, CMP #### [place] [phone] CT HEAD OR BRAIN W/O CONTRAS Ton [...] 09/02/2023 12:12:26 PM Ordering Provider: YAZMIN ANDERS [facility] ([place]) LABORATORYOrdered By: Suaypa Rock on 09-02-2023 Appearance (U) Clear (09/02/23 [...] 09-02-2023 Magnesium [Mass/Vol] 1.9 mg/dL Normal 1.8-2.4 [facility] ([place]) Comment on above: Performed By: #### C BC, MG, GFR, ANEU, MDW, ADIFF, DIMER, TROPHS, LIP, CMP #### [address] [address] TROPHSon 09-02-2023 Troponin I High Sensitivity 10.0 ng/L Normal 0.0-51.4 [facility] ([place]) Comment on above: Performed By: #### C BC, MG, GFR, ANEU, MDW, ADIFF, DIMER, TROPHS, LIP, CMP #### [address] [address] TSHon 09-02-2023 TSH Qn 0.37 m[IU]/L Normal 0.36-3.74 [facility] ([place]) Comment on above: Performed By: #### C BC, MG, GFR, DAVID, MDW, ADIFF, DIMER, TROPHS, LIP, CMP #### [address] [address] UAon 09-02-2023 Color (U) Yellow Normal [facility] ([place]) Comment on above: Performed By: #### U A, UAMICAO ####[address] [address] Glucose (U) [Mass/Vol] Negative Normal Negative [facility] ([place]) Comment on above: Performed By: #### U A, UAMICAO ####[address] [address] Ketones Ql (U) Negative Normal Negative [facility] ([place]) Comment on above: Performed By: #### U A, UAMICAO ####[address] [place], [place] [address] UA Appear Clear Normal Clear [facility] ([place]) Comment on above: Performed By: #### U A, UAMICAO ####[address] [place], [place] [address] UA Blood Negative Normal Negative [facility] ([place]) Comment on above: Performed By: #### U A, UAMICAO ####[address] [place], [place] [address] UA Leuk Est Small Abnormal Negative [facility] ([place]) Comment on above: Performed By: #### U A, UAMICAO ####[address] [place], [place] [address] UA Nitrite Negative Normal Negative [facility] ([place]) Comment on above: Performed By: #### U A, UAMICAO ####[address] [place] [phone] UA pH 7.0 Normal 5.0 - 8.0 [facility] ([place]) Comment on above: Performed By: #### U A, UAMICAO ####[address] [place] [address] UA Protein Negative Normal Negative [facility] ([place]) Comment on above: Performed By: #### U A UAMICAO ####[address] [place] [address] UA Spec Grav 1.010 Abnormal 1.015-1.025 [facility] ([place]) Comment on above: Performed By: #### U A UAMICAO ####[address] [place] [address] UA Specimen Type Clean Catch Normal [facility] ([place]) Comment on above: Performed By: #### U A, UAMICAO ####[address] [place] [phone] UA Urobilinogen 0.2 E.U./dL Normal 0.2-1.0 [facility] ([place]) Comment on above: Performed By: #### U A, UAMICAO ####[address] [place] [phone] Urobilinogen (U) [Mass/Vol] Negative Normal Negative [facility] ([place]) Comment on above: Performed By: #### U A, UAMICAO ####[address] [place] [phone] XR CHEST 1 VIEWon 09-02-2023 XR CHEST [...] 09/02/2023 12:13:24 PM Ordering Provider: YAZMIN ANDERS [facility] ([place]) .GFRon 08-30-2023 GFR 66 ml/min/1.73sqm [facility] ([place]) Comment on above: Result Comment: GFR Population [...] MDW, ADIFF, DIMER, TROPHS, LIP, CMP #### [address] [address] GFR Non- 54 ml/min/1.73sqm [facility] ([place]) Comment on above: Result Comment: GFR Population [...] MDW, ADIFF, DIMER, TROPHS, LIP, CMP #### [address] [address] CMPon 08-30-2023 Albumin Level 4.1 G/dL Normal 3.4-4.8 [facility] ([place]) Comment on above: Performed By: #### C BC, MG, GFR, ANEU, MDW, ADIFF, DIMER, TROPHS, LIP, CMP #### [address] [address] Albumin/Globulin [Mass ratio] 1.4 {ratio} Normal 1.1-2.5 [facility] ([place]) Comment on above: Performed By: #### C BC, MG, GFR, ANEU, MDW, ADIFF, DIMER, TROPHS, LIP, CMP #### [address] [address] ALP [Catalytic activity/Vol] 75 U/L Normal 40-135 [facility] ([place]) Comment on above: Performed By: #### C BC, MG, GFR, ANEU, MDW, ADIFF, DIMER, TROPHS, LIP, CMP #### [address] [address] ALT [Catalytic activity/Vol] 26 U/L Normal 14-59 [facility] ([place]) Comment on above: Performed By: #### C BC, MG, GFR, ANEU, MDW, ADIFF, DIMER, TROPHS, LIP, CMP #### [address] [address] AST [Catalytic activity/Vol] 15 U/L Normal 10-40 [facility] ([place]) Comment on above: Performed By: #### C BC, MG, GFR, ANEU, MDW, ADIFF, DIMER, TROPHS, LIP, CMP #### [address] [address] Bili Total 0.5 mg/dL Normal 0.2-1.0 [facility] ([place]) Comment on above: Result Comment: Use of this assay is not recommended for patients undergoing treatment with eltrombopag due to the potential for falsely elevated results. Performed By: #### C BC, MG, GFR, ANEU, MDW, ADIFF, DIMER, TROPHS, LIP, CMP #### [address] [address] BUN/Creatinine Ratio 14 ratio Normal 7-27 [facility] ([place]) Comment on above: Performed By: #### C BC, MG, GFR, ANEU, MDW, ADIFF, DIMER, TROPHS, LIP, CMP #### [address] [address] Calcium [Mass/Vol] 9.6 mg/dL Normal 8.4-10.2 [facility] ([place]) Comment on above: Performed By: #### C BC, MG, GFR, ANEU, MDW, ADIFF, DIMER, TROPHS, LIP, CMP #### [address] [address] Chloride [Moles/Vol] 100 mmol/L Normal 98-107 [facility] ([place]) Comment on above: Performed By: #### C BC, MG, GFR, ANEU, MDW, ADIFF, DIMER, TROPHS, LIP, CMP #### [address] [address] CO2 [Moles/Vol] 27 mmol/L Normal 23-31 [facility] ([place]) Comment on above: Performed By: #### C BC, MG, GFR, ANEU, MDW, ADIFF, DIMER, TROPHS, LIP, CMP #### [address] [address] Creatinine [Mass/Vol] 0.99 mg/dL Normal 0.55-1.02 [facility] ([place]) Comment on above: Performed By: #### C BC, MG, GFR, ANEU, MDW, ADIFF, DIMER, TROPHS, LIP, CMP #### [address] [address] Electrolyte Balance 9.0 mEq/L Normal 4.0-15.0 [facility] ([place]) Comment on above: Performed By: #### C BC, MG, GFR, ANEU, MDW, ADIFF, DIMER, TROPHS, LIP, CMP #### [address] [address] Globulin 2.9 G/dL Normal [facility] ([place]) Comment on above: Performed By: #### C BC, MG, GFR, ANEU, MDW, ADIFF, DIMER, TROPHS, LIP, CMP #### [address] [address] Glucose [Mass/Vol] 93 mg/dL Normal 83-110 [facility] ([place]) Comment on above: Performed By: #### C BC, MG, GFR, ANEU, MDW, ADIFF, DIMER, TROPHS, LIP, CMP #### [address] [address] Potassium [Moles/Vol] 4.1 mmol/L Normal 3.5-5.1 [facility] ([place]) Comment on above: Performed By: #### C BC, MG, GFR, ANEU, MDW, ADIFF, DIMER, TROPHS, LIP, CMP #### [address] [address] Sodium [Moles/Vol] 136 mmol/L Normal 136-145 [facility] ([place]) Comment on above: Performed By: #### C BC, MG, GFR, ANEU, MDW, ADIFF, DIMER, TROPHS, LIP, CMP #### [address] [address] Total Protein 7.0 G/dL Normal 6.4-8.2 [facility] ([place]) Comment on above: Performed By: #### C BC, MG, GFR, ANEU, MDW, ADIFF, DIMER, TROPHS, LIP, CMP #### [place] [address] [place], [place] [address] Urea nitrogen [Mass/Vol] 14 mg/dL Normal 7-18 [facility] ([place]) Comment on above: Performed By: #### C BC, MG, GFR, DAVID, W, ADIFF, DIMER, TROPHS, LIP, CMP #### [place] [address] [place], [place] [address] LABORATORYOrdered By: SYSTEM SYSTEM on 08-30-2023 Albumin [...] - 27 ratio AO ADM SS MGon 12-07-2023 Magnesium [Mass/Vol] 1.9 mg/dL Normal 1.8-2.4 [facility] ([place]) Comment on above: Performed By: #### C BC, MG, GFR, ANEU, MDW, ADIFF, DIMER, TROPHS, LIP, CMP #### [address] [address] .GFRon 08-21-2023 GFR 56 ml/min/1.73sqm Normal [facility] ([place]) Comment on above: Result Comment: GFR Population [...] MDW, ADIFF, DIMER, TROPHS, LIP, CMP #### [address] [address] GFR Non- 46 ml/min/1.73sqm Normal [facility] ([place]) Comment on above: Result Comment: GFR Population [...] MDW, ADIFF, DIMER, TROPHS, LIP, CMP #### [address] [address] CMPon 08-21-2023 Albumin Level 4.1 G/dL Normal 3.4-4.8 [facility] ([place]) Comment on above: Performed By: #### C BC, MG, GFR, ANEU, MDW, ADIFF, DIMER, TROPHS, LIP, CMP #### [address] [address] Albumin/Globulin [Mass ratio] 1.3 {ratio} Normal 1.1-2.5 [facility] ([place]) Comment on above: Performed By: #### C BC, MG, GFR, ANEU, MDW, ADIFF, DIMER, TROPHS, LIP, CMP #### [address] [address] ALP [Catalytic activity/Vol] 75 U/L Normal 40-135 [facility] ([place]) Comment on above: Performed By: #### C BC, MG, GFR, ANEU, MDW, ADIFF, DIMER, TROPHS, LIP, CMP #### [address] [address] ALT [Catalytic activity/Vol] 23 U/L Normal 14-59 [facility] ([place]) Comment on above: Performed By: #### C BC, MG, GFR, ANEU, MDW, ADIFF, DIMER, TROPHS, LIP, CMP #### [address] [address] AST [Catalytic activity/Vol] 16 U/L Normal 10-40 [facility] ([place]) Comment on above: Performed By: #### C BC, MG, GFR, ANEU, MDW, ADIFF, DIMER, TROPHS, LIP, CMP #### [address] [address] Bili Total 0.4 mg/dL Normal 0.2-1.0 [facility] ([place]) Comment on above: Result Comment: Use of this assay is not recommended for patients undergoing treatment with eltrombopag due to the potential for falsely elevated results. Performed By: #### C BC, MG, GFR, ANEU, MDW, ADIFF, DIMER, TROPHS, LIP, CMP #### [address] [address] BUN/Creatinine Ratio 17 ratio Normal 7-27 [facility] ([place]) Comment on above: Performed By: #### C BC, MG, GFR, ANEU, MDW, ADIFF, DIMER, TROPHS, LIP, CMP #### [address] [address] Calcium [Mass/Vol] 8.4 mg/dL Normal 8.4-10.2 [facility] ([place]) Comment on above: Performed By: #### C BC, MG, GFR, ANEU, MDW, ADIFF, DIMER, TROPHS, LIP, CMP #### [address] [address] Chloride [Moles/Vol] 100 mmol/L Normal 98-107 [facility] ([place]) Comment on above: Performed By: #### C BC, MG, GFR, ANEU, MDW, ADIFF, DIMER, TROPHS, LIP, CMP #### [address] [address] CO2 [Moles/Vol] 26 mmol/L Normal 23-31 [facility] ([place]) Comment on above: Performed By: #### C BC, MG, GFR, ANEU, MDW, ADIFF, DIMER, TROPHS, LIP, CMP #### [address] [address] Creatinine [Mass/Vol] 1.14 mg/dL High 0.55-1.02 [facility] ([place]) Comment on above: Performed By: #### C BC, MG, GFR, ANEU, MDW, ADIFF, DIMER, TROPHS, LIP, CMP #### [address] [address] Electrolyte Balance 10.0 mEq/L Normal 4.0-15.0 [facility] ([place]) Comment on above: Performed By: #### C BC, MG, GFR, ANEU, MDW, ADIFF, DIMER, TROPHS, LIP, CMP #### [address] [address] Globulin 3.1 G/dL Normal [facility] ([place]) Comment on above: Performed By: #### C BC, MG, GFR, ANEU, MDW, ADIFF, DIMER, TROPHS, LIP, CMP #### [address] [address] Glucose [Mass/Vol] 117 mg/dL High 83-110 [facility] ([place]) Comment on above: Performed By: #### C BC, MG, GFR, ANEU, MDW, ADIFF, DIMER, TROPHS, LIP, CMP #### [address] [address] Potassium [Moles/Vol] 4.7 mmol/L Normal 3.5-5.1 [facility] ([place]) Comment on above: Performed By: #### C BC, MG, GFR, ANEU, MDW, ADIFF, DIMER, TROPHS, LIP, CMP #### [address] [address] Sodium [Moles/Vol] 136 mmol/L Normal 136-145 [facility] ([place]) Comment on above: Performed By: #### C BC, MG, GFR, ANEU, MDW, ADIFF, DIMER, TROPHS, LIP, CMP #### [address] [address] Total Protein 7.2 G/dL Normal 6.4-8.2 [facility] ([place]) Comment on above: Performed By: #### C BC, MG, GFR, ANEU, MDW, ADIFF, DIMER, TROPHS, LIP, CMP #### [address] [address] Urea nitrogen [Mass/Vol] 19 mg/dL High 7-18 [facility] ([place]) Comment on above: Performed By: #### C BC, MG, GFR, ANEU, MDW, ADIFF, DIMER, TROPHS, LIP, CMP #### [place] [address] [place], [place] [address] MGon 08-21-2023 Magnesium [Mass/Vol] 2.1 mg/dL Normal 1.8-2.4 [facility] ([place]) Comment on above: Performed By: #### C BC, MG, GFR, ANEU, MDW, ADIFF, DIMER, TROPHS, LIP, CMP #### [place] [address] [place], [place] [address] Absolute lymphocyte countOrd ered By: Juan Diego Marks on 08-08-2023 Lymphocytes Auto (Unsp spec) [#/Vol] 1.62 10*3/uL 0.83-4.51 [facility] Basophil percentageOrdered B y: Juan Diego Marks on 08-08-2023 Basophils/100 WBC (Bld) 1.0 % 0-1 [facility] Chloride [Moles/Vol] 103 mmol/L 98-107 [facility] Eosinophils/100 WBC (Bld) 6.6 % 0-5 [facility] Glucose [Mass/Vol] 93 mg/dL 74-106 [facility] [place] Neutrophils (Bld) [#/Vol] 1.8 10*3/uL 2.0-7.7 [facility] Neutrophils/100 WBC (Bld) 43.2 % 47-70 [facility] Potassium [Moles/Vol] 4.3 mmol/L 3.5-5.1 [facility] [place] Sodium [Moles/Vol] 136 mmol/L 136-145 [facility] [place] WBC (Bld) [#/Vol] 4.1 10*3/uL 4.4-11.0 [facility] [place] Blood erythrocytes count (nu mber/volume)Ordered By: Juan Diego Marks on 08-08-2023 RBC (Bld) [#/Vol] 3.84 10*6/uL 4.2-5.4 [facility] Blood hemoglobin measurement (mass/volume)Ordered By: Juan Diego Marks on 08-08-2023 Hemoglobin (Bld) [Mass/Vol] 10.9 g/dL 12.0-15.0 [facility] Blood lymphocytes/100 leukoc ytesOrdered By: Juan Diego Marks on 08-08-2023 Lymphocytes/100 WBC (Bld) 39.3 % 19-41 [facility] Blood monocytes/100 leukocyt esOrdered By: Juan Diego Marks on 08-08-2023 Monocytes/100 WBC (Bld) 9.7 % 0-10 [facility] Blood platelet mean volumeOr dered By: Juan Diego Marks on 08-08-2023 Platelet mean volume (Bld) [Entitic vol] 9.2 fL 6.2-12.0 [facility] Determination of erythrocyte mean corpuscular volume (MCV)Ordered By: Juan Diego Marks on 08-08-2023 MCV (RBC) [Entitic vol] 89.6 fL 81-99 [facility] Hematocrit Auto (Bld) [Volum e fraction]Ordered By: Juan Diego Marks on 08-08-2023 Hematocrit (Bld) [Volume fraction] 34.4 % 37-47 [facility] Laboratory - Chemistry and C hemistry - challengeOrdered By: Juan Diego Marks 08-08-2023 CO2 [Moles/Vol] 32.0 mmol/L 21.0-32.0 [facility] Urea nitrogen/Creatinine [Mass ratio] 23.6 mg/mg 10-20 [facility] - Hematology and Cell countsOrdered By: Juan Diego Marks 08-08-2023 Erythrocyte distribution width (RBC) [Entitic vol] 43.2 fL 35.1-43.9 [facility] Erythrocyte distribution width (RBC) [Ratio] 13.3 % 11.6-14.6 [facility] Immature granulocytes/100 WBC (Bld) 0.200 % 0.0-0.9 [facility] Comment on above: IG% - Immature Granu locytes (promyelocytes, myelocytes and metamyelocytes) > 1% indicates that a LEFT SHIFT is Present. MCH (RBC) [Entitic mass] 28.4 pg 27.0-32.0 [facility] Nucleated RBC/100 WBC (Bld) [Ratio] 0 % 0-5 [facility] MCHC Auto (RBC) [Mass/Vol]Or dered By: Juan Diego Marks on 08-08-2023 MCHC (RBC) [Mass/Vol] 31.7 g/dL 32-36 [facility] [place] No Panel InformationOrdered By: Juan Diego Marks on 08-08-2023 Estimated Creatinine Clearance Calc 53.38 ml/min [facility] Estimated GFR (MDRD) Amer 88 mL/min >60 [facility] Comment on above: GFR Calc Estimated GFR (MDRD) Non-Af Amer 73 mL/min >60 [facility] Comment on above: Non- GFR Calc Platelets bldOrdered By: Juan Diego Marks on 08-08-2023 Platelets (Bld) [#/Vol] 291 10*3/uL 150-450 [facility] Serum or plasma calcium cindy urement (mass/volume)Ordered By: Juan Diego Marks on 08-08-2023 Calcium [Mass/Vol] 8.9 mg/dL 8.5-10.1 [facility] Serum or plasma creatinine m easurement (mass/volume)Ordered By: Juan Diego Marks on 08-08-2023 Creatinine [Mass/Vol] 0.80 mg/dL 0.55-1.02 [facility] [place] Comment on above: The validity of the calculated GFR & GFRAA in patients over 70 years has not been determined. Clinical correlation is essential. Serum or plasma urea nitroge n measurement (mass/volume)Ordered By: Juan Diego Marks on 08-08-2023 Urea nitrogen [Mass/Vol] 19 mg/dL 7-18 [facility] Thin prep Papanicolaou smear with manual screeningOrdered By: Juan Diego Marks on 08-08-2023 Thin prep Papanicolaou smear with manual screening 1 5-15 [facility] Absolute lymphocyte countOrd ered By: Natalya Wright on 07-31-2023 Lymphocytes Auto (Unsp spec) [#/Vol] 1.03 10*3/uL 0.83-4.51 [facility] Basophil percentageOrdered B y: Natalya Wright on 07-31-2023 Basophils/100 WBC (Bld) 0.4 % 0-1 [facility] Chloride [Moles/Vol] 102 mmol/L 98-107 [facility] Eosinophils/100 WBC (Bld) 2.2 % 0-5 [facility] Glucose [Mass/Vol] 94 mg/dL 74-106 [facility] Neutrophils (Bld) [#/Vol] 3.3 10*3/uL 2.0-7.7 [facility] Neutrophils/100 WBC (Bld) 67.4 % 47-70 [facility] Potassium [Moles/Vol] 3.2 mmol/L 3.5-5.1 [facility] [place] Sodium [Moles/Vol] 133 mmol/L 136-145 [facility] WBC (Bld) [#/Vol] 4.9 10*3/uL 4.4-11.0 [facility] Blood erythrocytes count (nu mber/volume)Ordered By: Natalya Wright on 07-31-2023 RBC (Bld) [#/Vol] 4.30 10*6/uL 4.2-5.4 [facility] Blood hemoglobin measurement (mass/volume)Ordered By: Natalya Wright on 07-31-2023 Hemoglobin (Bld) [Mass/Vol] 12.1 g/dL 12.0-15.0 [facility] Blood lymphocytes/100 leukoc ytesOrdered By: Natalya Wright on 07-31-2023 Lymphocytes/100 WBC (Bld) 21.0 % 19-41 [facility] Blood monocytes/100 leukocyt esOrdered By: Natalya Wright on 07-31-2023 Monocytes/100 WBC (Bld) 8.6 % 0-10 [facility] Blood platelet mean volumeOr dered By: Natalya Wright on 07-31-2023 Platelet mean volume (Bld) [Entitic vol] 9.8 fL 6.2-12.0 [facility] Determination of erythrocyte mean corpuscular volume (MCV)Ordered By: Natalya Wright on 07-31-2023 MCV (RBC) [Entitic vol] 84.7 fL 81-99 [facility] Comment on above: Delta: 80.0 on 07/28-0150 Hematocrit Auto (Bld) [Volum e fraction]Ordered By: Natalya Wright on 07-31-2023 Hematocrit (Bld) [Volume fraction] 36.4 % 37-47 [facility] - Chemistry and C hemistry - challengeOrdered By: Natalya Wright on 07-31-2023 CO2 [Moles/Vol] 25.0 mmol/L 21.0-32.0 [facility] Urea nitrogen/Creatinine [Mass ratio] 13.2 mg/mg 10-20 [facility] - Hematology and Cell countsOrdered By: Natalya Wright on 07-31-2023 Erythrocyte distribution width (RBC) [Entitic vol] 37.4 fL 35.1-43.9 [facility] Erythrocyte distribution width (RBC) [Ratio] 12.3 % 11.6-14.6 [facility] Immature granulocytes/100 WBC (Bld) 0.400 % 0.0-0.9 [facility] Comment on above: IG% - Immature Granu locytes (promyelocytes, myelocytes and metamyelocytes) > 1% indicates that a LEFT SHIFT is Present. MCH (RBC) [Entitic mass] 28.1 pg 27.0-32.0 [facility] Nucleated RBC/100 WBC (Bld) [Ratio] 0 % 0-5 [facility] MCHC Auto (RBC) [Mass/Vol]Or dered By: Natalya Wright on 07-31-2023 MCHC (RBC) [Mass/Vol] 33.2 g/dL 32-36 [facility] [place] Comment on above: Delta: 35.7 on 07/280 No Panel InformationOrdered By: Natalya Wright on 07-31-2023 Estimated Creatinine Clearance Calc 41.05 ml/min [facility] Estimated GFR (MDRD) Amer 123 mL/min >60 [facility] Comment on above: GFR Calc Estimated GFR (MDRD) Non-Af Amer 101 mL/min >60 [facility] Comment on above: Non- GFR Calc Platelets bldOrdered By: Mao Wright on 07-31-2023 Platelets (Bld) [#/Vol] 274 10*3/uL 150-450 [facility] Serum or plasma calcium cindy urement (mass/volume)Ordered By: Natalya Wright on 07-31-2023 Calcium [Mass/Vol] 8.3 mg/dL 8.5-10.1 [facility] Serum or plasma creatinine m easurement (mass/volume)Ordered By: Natalya Wright on 07-31-2023 Creatinine [Mass/Vol] 0.60 mg/dL 0.55-1.02 [facility] [place] Comment on above: The validity of the calculated GFR & GFRAA in patients over 70 years has not been determined. Clinical correlation is essential. Serum or plasma urea nitroge n measurement (mass/volume)Ordered By: Natalya Wright on 07-31-2023 Urea nitrogen [Mass/Vol] 8 mg/dL 7-18 [facility] Thin prep Papanicolaou smear with manual screeningOrdered By: Natalya Wright on 07-31-2023 Thin prep Papanicolaou smear with manual screening 6 5-15 [facility] Serum or plasma cortisol jyoti surement (mass/volume)Ordered By: Brooks Carcamo on 07-29-2023 Cortisol [Mass/Vol] 25.40 ug/dL 3.44-22.45 [facility] Comment on above: Adult (AM) 5.27 - 22 .45 ug/dL Adult (PM) 3.44 - 16.76 ug/dLPlease note revised CORTISOL reference range effective 2019. Basophil percentageOrdered B y: Madhavi Pate on 07-28-2023 Bilirubin [Mass/Vol] 0.60 mg/dL 0.20-1.00 [facility] Comment on above: For patients on eltr ombopag therapy, use of Dimension [place] [facility]IL is not recommended. Protein [Mass/Vol] 7.0 g/dL 6.4-8.2 [facility] LDH [Catalytic activity/Vol] 185 U/L 84-246 [facility] Blood manual differential co mment interpretation (narrative result)Ordered By: Madhavi Pate on 07-28-2023 Manual differential comment Michael (Bld) [Interp] SCANNED [facility] Comment on above: LYMPHOPENIA PRESENT Direct bilirubinOrdered By: Madhavi Pate on 07-28-2023 Bilirubin.direct [Mass/Vol] 0.19 mg/dL 0.00-0.30 [facility] Laboratory - Chemistry and C hemistry - challengeOrdered By: Madahvi Pate on 07-28-2023 Sodium (U) [Moles/Vol] 98 mmol/L Not Establ. [facility] ALP [Catalytic activity/Vol] 68 U/L 45-117 [facility] ALT [Catalytic activity/Vol] 23 U/L 13-56 [facility] Free T4 [Mass/Vol] 1.31 ng/dL 0.76-1.46 [facility] Globulin (S) [Mass/Vol] 3.2 g/dL 2.2-4.2 [facility] Magnesium [Mass/Vol] 2.1 mg/dL 1.6-2.6 [facility] CK [Catalytic activity/Vol] 229 U/L 26-192 [facility] Natriuretic peptide B (Bld) [Mass/Vol] 111.9 pg/mL 0-100 [facility] - Microbiology an d Antimicrobial susceptibilityOrdered By: Brooks Carcamo on 07-28-2023 SARS-CoV-2 (COVID-19) RNA YOLANDA+probe Ql (Unsp spec) SARS-CoV-2 (COVID 19 PCR) [facility] No Panel InformationOrdered By: Madhavi Pate on 07-28-2023 Thyroid Stimulating Hormone (TSH) 0.55 uIU/mL 0.358-3.74 [facility] D-Dimer Quantitative (PE/DVT) 0.68 FEU/ug/m 0.27-0.49 [facility] Comment on above: D-Dimer ELEVATED (>0 .49): Additional studies and clinicalassessments are indicated to conclude diagnosis of:Deep Vein Thrombosis (DVT) or Pulmonary Embolism (PE)CRITICAL VALUE VERIFIED. CALLED TO [id number]/04/23 0234 Costa Murillo.RESULTS READ BACK BY SAME. Troponin I High Sensitivity 28 pg/mL 3.0-54.0 [facility] Comment on above: Please Note: New Krysta t Units and Gender Specific Reference Ranges. For more information see Policy Stat Procedure [place] High Sensitivity Troponin (TNIH) and attachments. Serum or plasma C reactive p rotein measurement (mass/volume)Ordered By: Madhavi Pate on 07-28-2023 CRP [Mass/Vol] mg/L 0.0-3.0 [facility] Comment on above: C-Reactive Protein ( CRP) provides useful information for thediagnosis, therapy and monitoring of inflammatory processesand associated diseases. For the evaluation of Relative Riskfor Cardiovascular Disease, a High Sensitivity CRP (HSCRP)should be ordered. Serum or plasma albumin cindy urement (mass/volume)Ordered By: Madhavi Pate on 07-28-2023 Albumin [Mass/Vol] 3.8 g/dL 3.2-5.0 [facility] Serum or plasma ferritin jyoti surement (mass/volume)Ordered By: Madhavi Pate on 07-28-2023 Ferritin [Mass/Vol] 316 ng/mL 8-252 [facility] Serum procalcitonin measurem entOrdered By: Madhavi Pate on 07-28-2023 Procalcitonin [Mass/Vol] ng/mL 0.00-0.09 [facility] Comment on above: A procalcitonin (PCT [...] smear with manual screening 28 U/L 15-37 [facility] Urine creatinine measurement (mass/volume)Ordered By: Madhavi Pate on 07-28-2023 Creatinine (U) [Mass/Vol] 37.70 mg/dL NO RANGE EST. [facility] Urine osmolality measurement Ordered By: Madhavi Rio on 07-28-2023 Osmolality (U) [Osmolality] 366 mOsm/KG >50 [facility] Comment on above: Normal Urine Referen ce Ranges Random: 50 - 1200 mOsm/kg H20 depending on fluid intake Random: >850 mOsm/kg after 12 hour fluid restriction 24 hour: ~300 - 900 mOsm/kg H2O .Auto Diffon 07-27-2023 Basophil, Absolute 0.0 10 3/mcL Normal 0.0-0.2 [facility] ([place]) Comment on above: Performed By: #### C BC, MG, GFR, ANEU, MDW, ADIFF, DIMER, TROPHS, LIP, CMP #### [address] [address] Basophils/100 WBC (Bld) 0.4 % Normal 0.0-2.5 [facility] ([place]) Comment on above: Performed By: #### C BC, MG, GFR, ANEU, MDW, ADIFF, DIMER, TROPHS, LIP, CMP #### [address] [address] Eosinophil, Absolute 0.0 10 3/mcL Normal 0.0-0.4 [facility] ([place]) Comment on above: Performed By: #### C BC, MG, GFR, ANEU, MDW, ADIFF, DIMER, TROPHS, LIP, CMP #### [address] [address] Eosinophils/100 WBC (Bld) 1.0 % Normal 0.0-7.0 [facility] ([place]) Comment on above: Performed By: #### C BC, MG, GFR, ANEU, MDW, ADIFF, DIMER, TROPHS, LIP, CMP #### [address] [address] Lymphocyte, Absolute 0.8 10 3/mcL Normal 0.8-3.9 [facility] ([place]) Comment on above: Performed By: #### C BC, MG, GFR, ANEU, MDW, ADIFF, DIMER, TROPHS, LIP, CMP #### [address] [address] Lymphocytes/100 WBC (Bld) 21.7 % Normal 10.0-50.0 [facility] ([place]) Comment on above: Performed By: #### C BC, MG, GFR, ANEU, MDW, ADIFF, DIMER, TROPHS, LIP, CMP #### [address] [address] Monocyte, Absolute 0.3 10 3/mcL Normal 0.2-1.0 [facility] ([place]) Comment on above: Performed By: #### C BC, MG, GFR, ANEU, MDW, ADIFF, DIMER, TROPHS, LIP, CMP #### [address] [address] Monocytes/100 WBC (Bld) 8.9 % Normal 1.7-13.0 [facility] ([place]) Comment on above: Performed By: #### C BC, MG, GFR, DAVID, W, ADIFF, DIMER, TROPHS, LIP, CMP #### [address] [address] Neutrophils/100 WBC (Bld) 68.0 % Normal 37.0-80.0 [facility] ([place]) Comment on above: Performed By: #### C BC, MG, GFR, ANEU, MDW, ADIFF, DIMER, TROPHS, LIP, CMP #### [address] [address] .GFRon 07-27-2023 GFR Non- 65 ml/min/1.73sqm Normal [facility] ([place]) Comment on above: Result Comment: GFR Population [...] MDW, ADIFF, DIMER, TROPHS, LIP, CMP #### [address] [address] GFR 79 ml/min/1.73sqm Normal [facility] ([place]) Comment on above: Result Comment: GFR Population [...] MDW, ADIFF, DIMER, TROPHS, LIP, CMP #### [place] [address] [place], [place] [address] GFR Non- 53 ml/min/1.73sqm Normal [facility] ([place]) Comment on above: Result Comment: GFR Population [...] ANEU, MDW, ADIFF, DIMER, TROPHS, LIP, CMP ####[address] [address] GFR 65 ml/min/1.73sqm Normal [facility] ([place]) Comment on above: Result Comment: GFR Population [...] ANEU, MDW, ADIFF, DIMER, TROPHS, LIP, CMP ####[address] [address] .MDWon 07-27-2023 Monocyte Distribution Width 18.25 Normal 0.00-20.00 [facility] ([place]) Comment on above: Result Comment: For ED adult patients suspected of sepsis, MDW<=20.0 does not rule out sepsis or risk of sepsis Performed By: #### C BC, MG, GFR, ANEU, MDW, ADIFF, DIMER, TROPHS, LIP, CMP #### [address] [address] .NEUABSon 07-27-2023 Neutrophil, Absolute 2.6 10 3/mcL Low 2.9-6.2 [facility] ([place]) Comment on above: Performed By: #### C BC, MG, GFR, ANEU, MDW, ADIFF, DIMER, TROPHS, LIP, CMP #### [address] [address] BMPon 07-27-2023 BUN/Creatinine Ratio 8 ratio Normal 7-27 [facility] ([place]) Comment on above: Performed By: #### C BC, MG, GFR, ANEU, MDW, ADIFF, DIMER, TROPHS, LIP, CMP #### [address] [address] Calcium [Mass/Vol] 8.4 mg/dL Normal 8.4-10.2 [facility] ([place]) Comment on above: Performed By: #### C BC, MG, GFR, ANEU, MDW, ADIFF, DIMER, TROPHS, LIP, CMP #### [address] [address] Chloride [Moles/Vol] 83 mmol/L Low 98-107 [facility] ([place]) Comment on above: Performed By: #### C BC, MG, GFR, ANEU, MDW, ADIFF, DIMER, TROPHS, LIP, CMP #### [address] [address] CO2 [Moles/Vol] 25 mmol/L Normal 23-31 [facility] ([place]) Comment on above: Performed By: #### C BC, MG, GFR, ANEU, MDW, ADIFF, DIMER, TROPHS, LIP, CMP #### [address] [address] Creatinine [Mass/Vol] 0.84 mg/dL Normal 0.55-1.02 [facility] ([place]) Comment on above: Performed By: #### C BC, MG, GFR, ANEU, MDW, ADIFF, DIMER, TROPHS, LIP, CMP #### [address] [address] Electrolyte Balance 11.0 mEq/L Normal 4.0-15.0 [facility] ([place]) Comment on above: Performed By: #### C BC, MG, GFR, ANEU, MDW, ADIFF, DIMER, TROPHS, LIP, CMP #### [address] [address] Glucose [Mass/Vol] 133 mg/dL High 83-110 [facility] ([place]) Comment on above: Performed By: #### C BC, MG, GFR, ANEU, MDW, ADIFF, DIMER, TROPHS, LIP, CMP #### [address] [address] Potassium [Moles/Vol] 3.4 mmol/L Low 3.5-5.1 [facility] ([place]) Comment on above: Performed By: #### C BC, MG, GFR, ANEU, MDW, ADIFF, DIMER, TROPHS, LIP, CMP #### [address] [address] Sodium [Moles/Vol] 119 mmol/L Critically abnormal 136-145 [facility] ([place]) Comment on above: Performed By: #### C BC, MG, GFR, ANEU, MDW, ADIFF, DIMER, TROPHS, LIP, CMP #### [address] [address] Urea nitrogen [Mass/Vol] 7 mg/dL Normal 7-18 [facility] ([place]) Comment on above: Performed By: #### C BC, MG, GFR, ANEU, MDW, ADIFF, DIMER, TROPHS, LIP, CMP #### [place] [address] CBCon 07-27-2023 Erythrocyte distribution width (RBC) [Ratio] 12.8 % Normal 11.5-14.5 [facility] ([place]) Comment on above: Performed By: #### C BC, MG, GFR, ANEU, MDW, ADIFF, DIMER, TROPHS, LIP, CMP #### [place] [address] Hematocrit (Bld) [Volume fraction] 37.5 % Normal 37.0-47.0 [facility] ([place]) Comment on above: Performed By: #### C BC, MG, GFR, ANEU, MDW, ADIFF, DIMER, TROPHS, LIP, CMP #### [place] [address] Hgb 13.3 G/dL Normal 12.0-16.0 [facility] ([place]) Comment on above: Performed By: #### C BC, MG, GFR, ANEU, MDW, ADIFF, DIMER, TROPHS, LIP, CMP #### [place] [address] MCH (RBC) [Entitic mass] 28.6 pg Normal 27.0-31.2 [facility] ([place]) Comment on above: Performed By: #### C BC, MG, GFR, ANEU, MDW, ADIFF, DIMER, TROPHS, LIP, CMP #### [place] [address] MCHC 35.4 G/dL Normal 33.0-37.0 [facility] ([place]) Comment on above: Performed By: #### C BC, MG, GFR, ANEU, MDW, ADIFF, DIMER, TROPHS, LIP, CMP #### [place] [address] MCV (RBC) [Entitic vol] 80.7 fL Normal 80.0-94.0 A [facility] ([place]) Comment on above: Performed By: #### C BC, MG, GFR, ANEU, MDW, ADIFF, DIMER, TROPHS, LIP, CMP #### [address] [address] Platelet 282 10 3/mcL Normal 130-400 [facility] ([place]) Comment on above: Performed By: #### C BC, MG, GFR, ANEU, MDW, ADIFF, DIMER, TROPHS, LIP, CMP #### [address] [address] Platelet mean volume (Bld) [Entitic vol] 6.7 fL Low 7.4-10.4 [facility] ([place]) Comment on above: Performed By: #### C BC, MG, GFR, ANEU, MDW, ADIFF, DIMER, TROPHS, LIP, CMP #### [address] [address] RBC 4.64 10 6/mcL Normal 4.20-5.40 [facility] ([place]) Comment on above: Performed By: #### C BC, MG, GFR, ANEU, MDW, ADIFF, DIMER, TROPHS, LIP, CMP #### [address] [address] WBC 3.8 10 3/mcL Low 4.6-10.8 [facility] ([place]) Comment on above: Performed By: #### C BC, MG, GFR, ANEU, MDW, ADIFF, DIMER, TROPHS, LIP, CMP #### [address] [address] CMPon 07-27-2023 Albumin Level 4.2 G/dL Normal 3.4-4.8 [facility] ([place]) Comment on above: Performed By: #### C BC, MG, GFR, ANEU, MDW, ADIFF, DIMER, TROPHS, LIP, CMP ####[address] [address] Albumin/Globulin [Mass ratio] 1.4 {ratio} Normal 1.1-2.5 [facility] ([place]) Comment on above: Performed By: #### C BC, MG, GFR, ANEU, MDW, ADIFF, DIMER, TROPHS, LIP, CMP ####[address] [place], [place] [address] ALP [Catalytic activity/Vol] 78 U/L Normal 40-135 [facility] ([place]) Comment on above: Performed By: #### C BC, MG, GFR, ANEU, MDW, ADIFF, DIMER, TROPHS, LIP, CMP ####[address] [place], [place] [address] ALT [Catalytic activity/Vol] 19 U/L Normal 14-59 [facility] ([place]) Comment on above: Performed By: #### C BC, MG, GFR, ANEU, MDW, ADIFF, DIMER, TROPHS, LIP, CMP ####[address] [place], [place] [address] AST [Catalytic activity/Vol] 21 U/L Normal 10-40 [facility] ([place]) Comment on above: Performed By: #### C BC, MG, GFR, ANEU, MDW, ADIFF, DIMER, TROPHS, LIP, CMP ####[address] [place], [place] [address] Bili Total 0.6 mg/dL Normal 0.2-1.0 [facility] ([place]) Comment on above: Result Comment: Use of this assay is not recommended for patients undergoing treatment with eltrombopag due to the potential for falsely elevated results. Performed By: #### C BC, MG, GFR, ANEU, MDW, ADIFF, DIMER, TROPHS, LIP, CMP ####[address] [place], [place] [address] BUN/Creatinine Ratio 7 ratio Normal 7-27 [facility] ([place]) Comment on above: Performed By: #### C BC, MG, GFR, ANEU, MDW, ADIFF, DIMER, TROPHS, LIP, CMP ####[address] [place], [place] [address] Calcium [Mass/Vol] 9.1 mg/dL Normal 8.4-10.2 [facility] ([place]) Comment on above: Performed By: #### C BC, MG, GFR, ANEU, MDW, ADIFF, DIMER, TROPHS, LIP, CMP ####[address] [place], [place] [address] Chloride [Moles/Vol] 82 mmol/L Low 98-107 [facility] ([place]) Comment on above: Performed By: #### C BC, MG, GFR, ANEU, MDW, ADIFF, DIMER, TROPHS, LIP, CMP ####[address] [place], [place] [address] CO2 [Moles/Vol] 24 mmol/L Normal 23-31 [facility] ([place]) Comment on above: Performed By: #### C BC, MG, GFR, ANEU, MDW, ADIFF, DIMER, TROPHS, LIP, CMP ####[address] [place], [place] [address] Creatinine [Mass/Vol] 1.00 mg/dL Normal 0.55-1.02 [facility] ([place]) Comment on above: Performed By: #### C BC, MG, GFR, ANEU, MDW, ADIFF, DIMER, TROPHS, LIP, CMP ####[address] [place], [place] [address] Electrolyte Balance 13.0 mEq/L Normal 4.0-15.0 [facility] ([place]) Comment on above: Performed By: #### C BC, MG, GFR, ANEU, MDW, ADIFF, DIMER, TROPHS, LIP, CMP ####[address] [place], [place] [address] Globulin 2.9 G/dL Normal [facility] ([place]) Comment on above: Performed By: #### C BC, MG, GFR, ANEU, MDW, ADIFF, DIMER, TROPHS, LIP, CMP ####[address] [place], [place] [address] Glucose [Mass/Vol] 133 mg/dL High 83-110 [facility] ([place]) Comment on above: Performed By: #### C BC, MG, GFR, ANEU, MDW, ADIFF, DIMER, TROPHS, LIP, CMP ####[address] [place], [place] [address] Potassium [Moles/Vol] 3.5 mmol/L Normal 3.5-5.1 [facility] ([place]) Comment on above: Performed By: #### C BC, MG, GFR, ANEU, MDW, ADIFF, DIMER, TROPHS, LIP, CMP ####[address] [place], [place] [address] Sodium [Moles/Vol] 119 mmol/L Critically abnormal 136-145 [facility] ([place]) Comment on above: Performed By: #### C BC, MG, GFR, ANEU, MDW, ADIFF, DIMER, TROPHS, LIP, CMP ####[address] [place], [place] [address] Total Protein 7.1 G/dL Normal 6.4-8.2 [facility] ([place]) Comment on above: Performed By: #### C BC, MG, GFR, ANEU, MDW, ADIFF, DIMER, TROPHS, LIP, CMP ####[address] [place], [place] [address] Urea nitrogen [Mass/Vol] 7 mg/dL Normal 7-18 [facility] ([place]) Comment on above: Performed By: #### C BC, MG, GFR, ANEU, MDW, ADIFF, DIMER, TROPHS, LIP, CMP ####[address] [place], [place] [address] DIMERon 07-27-2023 D-Dimer 287 ng/mL D-DU High 0-230 [facility] ([place]) Comment on above: Result Comment: Resu lts [...] ADIFF, DIMER, TROPHS, LIP, CMP #### [address] [place] [address] [place] [address] LABORATORYOrdered By: SYSTEM SYSTEM on 07-27-2023 Calcium [...] Comment: Crit ical NA cvrb Vin Rn 1948 Troponin I.cardiac DL <= 0.01 ng/mL [Mass/Vol] [...] 07-27-2023 Lipase Level 33 U/L Normal 16-77 [facility] ([place]) Comment on above: Performed By: #### C BC, MG, GFR, ANEU, MDW, ADIFF, DIMER, TROPHS, LIP, CMP #### [address] [address] MGon 07-27-2023 Magnesium [Mass/Vol] 1.4 mg/dL Low 1.8-2.4 [facility]) Comment on above: Performed By: #### C BC, MG, GFR, ANEU, MDW, ADIFF, DIMER, TROPHS, LIP, CMP #### [address] [address] TROPHSon 07-27-2023 Troponin I High Sensitivity 15.6 ng/L Normal 0.0-51.4 [facility] ([place]) Comment on above: Performed By: #### C BC, MG, GFR, ANEU, MDW, ADIFF, DIMER, TROPHS, LIP, CMP #### [address] [address] Troponin I High Sensitivity 10.8 ng/L Normal 0.0-51.4 [facility] ([place]) Comment on above: Performed By: #### C BC, MG, GFR, ANEU, MDW, ADIFF, DIMER, TROPHS, LIP, CMP #### [address] [address] XR CHEST 2 VIEWSon 3 XR CHEST [...] 07/27/2023 8:42:35 PM Ordering Provider: RASHEL Horan [facility] ([place]) .Auto Diffon 07-26-2023 Basophil, Absolute 0.0 10 3/mcL Normal 0.0-0.2 [facility] ([place]) Comment on above: Performed By: #### C BC, MG, GFR, ANEU, MDW, ADIFF, DIMER, TROPHS, LIP, CMP #### [address] [address] Basophils/100 WBC (Bld) 0.2 % Normal 0.0-2.5 A [facility] ([place]) Comment on above: Performed By: #### C BC, MG, GFR, ANEU, MDW, ADIFF, DIMER, TROPHS, LIP, CMP #### [address] [address] Eosinophil, Absolute 0.1 10 3/mcL Normal 0.0-0.4 [facility] ([place]) Comment on above: Performed By: #### C BC, MG, GFR, ANEU, MDW, ADIFF, DIMER, TROPHS, LIP, CMP #### [address] [place] [address] Eosinophils/100 WBC (Bld) 3.1 % Normal 0.0-7.0 [facility] ([place]) Comment on above: Performed By: #### C BC, MG, GFR, ANEU, MDW, ADIFF, DIMER, TROPHS, LIP, CMP #### [address] [address] Lymphocyte, Absolute 1.2 10 3/mcL Normal 0.8-3.9 [facility] ([place]) Comment on above: Performed By: #### C BC, MG, GFR, ANEU, MDW, ADIFF, DIMER, TROPHS, LIP, CMP #### [address] [address] Lymphocytes/100 WBC (Bld) 36.0 % Normal 10.0-50.0 [facility] ([place]) Comment on above: Performed By: #### C BC, MG, GFR, ANEU, MDW, ADIFF, DIMER, TROPHS, LIP, CMP #### [address] [address] Monocyte, Absolute 0.3 10 3/mcL Normal 0.2-1.0 [facility] ([place]) Comment on above: Performed By: #### C BC, MG, GFR, ANEU, MDW, ADIFF, DIMER, TROPHS, LIP, CMP #### [address] [address] Monocytes/100 WBC (Bld) 10.6 % Normal 1.7-13.0 [facility] ([place]) Comment on above: Performed By: #### C BC, MG, GFR, ANEU, MDW, ADIFF, DIMER, TROPHS, LIP, CMP #### [address] [address] Neutrophils/100 WBC (Bld) 50.1 % Normal 37.0-80.0 [facility] ([place]) Comment on above: Performed By: #### C BC, MG, GFR, ANEU, MDW, ADIFF, DIMER, TROPHS, LIP, CMP #### [address] [address] .GFRon 07-26-2023 GFR 75 ml/min/1.73sqm Normal [facility] ([place]) Comment on above: Result Comment: GFR Population [...] MDW, ADIFF, DIMER, TROPHS, LIP, CMP #### [address] [address] GFR Non- 62 ml/min/1.73sqm Normal [facility] ([place]) Comment on above: Result Comment: GFR Population [...] MDW, ADIFF, DIMER, TROPHS, LIP, CMP #### [address] [address] .MDWon 07-26-2023 Monocyte Distribution Width 19.85 Normal 0.00-20.00 [facility] ([place]) Comment on above: Result Comment: For ED adult patients suspected of sepsis, MDW<=20.0 does not rule out sepsis or risk of sepsis Performed By: #### C BC, MG, GFR, ANEU, MDW, ADIFF, DIMER, TROPHS, LIP, CMP #### [address] [address] .NEUABSon 07-26-2023 Neutrophil, Absolute 1.6 10 3/mcL Low 2.9-6.2 [facility] ([place] Comment on above: Performed By: #### C BC, MG, GFR, ANEU, MDW, ADIFF, DIMER, TROPHS, LIP, CMP #### [address] [address] BMPon 07-26-2023 BUN/Creatinine Ratio 10 ratio Normal 7-27 [facility] ([place]) Comment on above: Performed By: #### C BC, MG, GFR, ANEU, MDW, ADIFF, DIMER, TROPHS, LIP, CMP #### [address] [address] Calcium [Mass/Vol] 8.8 mg/dL Normal 8.4-10.2 [facility] ([place]) Comment on above: Performed By: #### C BC, MG, GFR, ANEU, MDW, ADIFF, DIMER, TROPHS, LIP, CMP #### [address] [address] Chloride [Moles/Vol] 90 mmol/L Low 98-107 [facility] ([place]) Comment on above: Performed By: #### C BC, MG, GFR, ANEU, MDW, ADIFF, DIMER, TROPHS, LIP, CMP #### [address] [address] CO2 [Moles/Vol] 27 mmol/L Normal 23-31 [facility]) Comment on above: Performed By: #### C BC, MG, GFR, ANEU, MDW, ADIFF, DIMER, TROPHS, LIP, CMP #### [address] [address] Creatinine [Mass/Vol] 0.88 mg/dL Normal 0.55-1.02 [facility] ([place]) Comment on above: Performed By: #### C BC, MG, GFR, ANEU, MDW, ADIFF, DIMER, TROPHS, LIP, CMP #### [address] [address] Electrolyte Balance 10.0 mEq/L Normal 4.0-15.0 [facility] ([place]) Comment on above: Performed By: #### C BC, MG, GFR, ANEU, MDW, ADIFF, DIMER, TROPHS, LIP, CMP #### [address] [address] Glucose [Mass/Vol] 115 mg/dL High 83-110 [facility] ([place]) Comment on above: Performed By: #### C BC, MG, GFR, ANEU, MDW, ADIFF, DIMER, TROPHS, LIP, CMP #### [address] [address] Potassium [Moles/Vol] 3.7 mmol/L Normal 3.5-5.1 [facility] ([place]) Comment on above: Performed By: #### C BC, MG, GFR, ANEU, MDW, ADIFF, DIMER, TROPHS, LIP, CMP #### [address] [address] Sodium [Moles/Vol] 127 mmol/L Low 136-145 [facility] ([place]) Comment on above: Performed By: #### C BC, MG, GFR, ANEU, MDW, ADIFF, DIMER, TROPHS, LIP, CMP #### [address] [address] Urea nitrogen [Mass/Vol] 9 mg/dL Normal 7-18 [facility] ([place]) Comment on above: Performed By: #### C BC, MG, GFR, ANEU, MDW, ADIFF, DIMER, TROPHS, LIP, CMP #### [address] [address] CBCon 07-26-2023 Erythrocyte distribution width (RBC) [Ratio] 12.9 % Normal 11.5-14.5 [facility] ([place]) Comment on above: Performed By: #### C BC, MG, GFR, ANEU, MDW, ADIFF, DIMER, TROPHS, LIP, CMP #### [address] [address] Hematocrit (Bld) [Volume fraction] 37.4 % Normal 37.0-47.0 [facility] ([place]) Comment on above: Performed By: #### C BC, MG, GFR, ANEU, MDW, ADIFF, DIMER, TROPHS, LIP, CMP #### [address] [address] Hgb 13.0 G/dL Normal 12.0-16.0 [facility] ([place]) Comment on above: Performed By: #### C BC, MG, GFR, ANEU, MDW, ADIFF, DIMER, TROPHS, LIP, CMP #### [place] [address] MCH (RBC) [Entitic mass] 28.5 pg Normal 27.0-31.2 [facility] ([place]) Comment on above: Performed By: #### C BC, MG, GFR, ANEU, MDW, ADIFF, DIMER, TROPHS, LIP, CMP #### [place] [address] MCHC 34.7 G/dL Normal 33.0-37.0 [facility] ([place]) Comment on above: Performed By: #### C BC, MG, GFR, ANEU, MDW, ADIFF, DIMER, TROPHS, LIP, CMP #### [address] [address] MCV (RBC) [Entitic vol] 81.9 fL Normal 80.0-94.0 [facility] ([place]) Comment on above: Performed By: #### C BC, MG, GFR, ANEU, MDW, ADIFF, DIMER, TROPHS, LIP, CMP #### [address] [address] Platelet 241 10 3/mcL Normal 130-400 [facility] ([place]) Comment on above: Performed By: #### C BC, MG, GFR, ANEU, MDW, ADIFF, DIMER, TROPHS, LIP, CMP #### [address] [address] Platelet mean volume (Bld) [Entitic vol] 6.6 fL Low 7.4-10.4 [facility] ([place]) Comment on above: Performed By: #### C BC, MG, GFR, ANEU, MDW, ADIFF, DIMER, TROPHS, LIP, CMP #### [address] [address] RBC 4.56 10 6/mcL Normal 4.20-5.40 [facility] ([place]) Comment on above: Performed By: #### C BC, MG, GFR, ANEU, MDW, ADIFF, DIMER, TROPHS, LIP, CMP #### [address] [address] WBC 3.3 10 3/mcL Low 4.6-10.8 [facility] ([place]) Comment on above: Performed By: #### C BC, MG, GFR, ANEU, MDW, ADIFF, DIMER, TROPHS, LIP, CMP #### [address] [address] [id number] 07-24-2023 SARS-CoV-2 (COVID-19) RNA YOLANDA+probe Ql (Unsp spec) Positive Abnormal Negative [facility] ([place]) Comment on above: Performed By: #### C BC, MG, GFR, ANEU, MDW, ADIFF, DIMER, TROPHS, LIP, CMP #### [address] [address] SARS-CoV-2 (COVID-19) RNA YOLANDA+probe Ql (Unsp spec) Normal [facility] ([place]) Comment on above: Result Comment: Posi tive results are indicative of the presence of SARS-CoV-2 RNA; clinical correlation with patient history and other diagnostic information is necessary to determine patient infection status. Positive results do not rule out bacterial infection or co-infection with other viruses. The agent detected may not be the definite cause of disease. Laboratories within the [place] and its territories are required to [...] MDW, ADIFF, DIMER, TROPHS, LIP, CMP #### [address] [address] [id number] 07-24-2023 Flu A PCR (AO) Negative Normal Negative [facility] ([place]) Comment on above: Result Comment: Posi [...] virus (RSV) nucleic acid in nasopharyngeal swab (BINGO CHECKER) specimens from patients with signs and symptoms [...] JONATHAN, ADNELDA, DIMER, TROPHS, LIP, CMP #### [address] [address] Flu B PCR (AO) Negative Normal Negative [facility] ([place]) Comment on above: Result Comment: Posi tive [...] REPEAT COLLECTION AND TESTING IS RECOMMENDED. The [employer] Flu A/B & RSV Assay is a real-time polymerase chain reaction (PCR) based qualitative in vitro diagnostic test for the direct detection and differentiation of influenza A virus, influenza B virus, and respiratory syncytial virus (RSV) nucleic acid in nasopharyngeal swab (BINGO CHECKER) specimens from patients with signs and symptoms [...] JONATHAN, ADNELDA, DIMER, TROPHS, LIP, CMP #### [address] [address] RSV PCR (AO) Negative Normal Negative [facility] ([place]) Comment on above: Result Comment: Posi tive [...] virus (RSV) nucleic acid in nasopharyngeal swab (BINGO CHECKER) specimens from patients with signs and symptoms [...] MDW, ADIFF, DIMER, TROPHS, LIP, CMP #### [place] [id number] [place] [address] LABORATORYOrdered By: Marbella Lema on 07-24-2023 FLUAV [...] virus (RSV) nucleic acid in nasopharyngeal swab (BINGO CHECKER) specimens from patients with signs and symptoms [...] REPEAT COLLECTION AND TESTING IS RECOMMENDED. The [employer] Flu A/B & RSV Assay is a real-time polymerase chain reaction (PCR) based qualitative in vitro diagnostic test for the direct detection and differentiation of influenza A virus, influenza B virus, and respiratory syncytial virus (RSV) nucleic acid in nasopharyngeal swab (BINGO CHECKER) specimens from patients with signs and symptoms [...] virus (RSV) nucleic acid in nasopharyngeal swab (BINGO CHECKER) specimens from patients with signs and symptoms [...] definite cause of disease. Laboratories within the [facility] and its territories are required to report all positive results to the appropriate public health authorities.Detection of analyte target(s) does not imply that the corresponding virus(es) are infectious or are the causative agents for clinical symptoms.There is a risk of false positive values resulting from cross-contamination by target organisms, their nucleic acids or amplified product, or from non-specific signals in the assay.[employer] SARS-CoV-2 Assay is a Real-Time reverse-transcriptase polymerase [...] .GFRon 07-16-2023 GFR Non- 60 ml/min/1.73sqm Normal [facility] ([place]) Comment on above: Result Comment: GFR Population [...] MDW, ADIFF, DIMER, TROPHS, LIP, CMP #### [address] [address] GFR 73 ml/min/1.73sqm Normal [facility] ([place]) Comment on above: Result Comment: GFR Population [...] MDW, ADIFF, DIMER, TROPHS, LIP, CMP #### [address] [address] CMPon 07-16-2023 Albumin Level 2.6 G/dL Low 3.4-4.8 [facility] ([place]) Comment on above: Performed By: #### C BC, MG, GFR, ANEU, MDW, ADIFF, DIMER, TROPHS, LIP, CMP #### [address] [address] Albumin/Globulin [Mass ratio] 0.6 {ratio} Low 1.1-2.5 [facility] ([place]) Comment on above: Performed By: #### C BC, MG, GFR, ANEU, MDW, ADIFF, DIMER, TROPHS, LIP, CMP #### [address] [address] ALP [Catalytic activity/Vol] 82 U/L Normal 40-135 [facility] ([place]) Comment on above: Performed By: #### C BC, MG, GFR, ANEU, MDW, ADIFF, DIMER, TROPHS, LIP, CMP #### [address] [address] ALT [Catalytic activity/Vol] 21 U/L Normal 14-59 [facility] ([place]) Comment on above: Performed By: #### C BC, MG, GFR, ANEU, MDW, ADIFF, DIMER, TROPHS, LIP, CMP #### [place] [address] AST [Catalytic activity/Vol] 17 U/L Normal 10-40 [facility] ([place] Comment on above: Performed By: #### C BC, MG, GFR, ANEU, MDW, ADIFF, DIMER, TROPHS, LIP, CMP #### [address] [address] Bili Total 0.3 mg/dL Normal 0.2-1.0 [facility] ([place]) Comment on above: Result Comment: Use of this assay is not recommended for patients undergoing treatment with eltrombopag due to the potential for falsely elevated results. Performed By: #### C BC, MG, GFR, ANEU, MDW, ADIFF, DIMER, TROPHS, LIP, CMP #### [address] [address] BUN/Creatinine Ratio 9 ratio Normal 7-27 [facility] ([place]) Comment on above: Performed By: #### C BC, MG, GFR, ANEU, MDW, ADIFF, DIMER, TROPHS, LIP, CMP #### [place] [id number] Calcium [Mass/Vol] 9.0 mg/dL Normal 8.4-10.2 [facility] ([place]) Comment on above: Performed By: #### C BC, MG, GFR, ANEU, MDW, ADIFF, DIMER, TROPHS, LIP, CMP #### [address] [address] Chloride [Moles/Vol] 95 mmol/L Low 98-107 [facility] ([place] Comment on above: Performed By: #### C BC, MG, GFR, ANEU, MDW, ADIFF, DIMER, TROPHS, LIP, CMP #### [address] [address] CO2 [Moles/Vol] 30 mmol/L Normal 23-31 [facility] ([place] Comment on above: Performed By: #### C BC, MG, GFR, ANEU, MDW, ADIFF, DIMER, TROPHS, LIP, CMP #### [address] [address] Creatinine [Mass/Vol] 0.90 mg/dL Normal 0.55-1.02 [facility] ([place]) Comment on above: Performed By: #### C BC, MG, GFR, ANEU, MDW, ADIFF, DIMER, TROPHS, LIP, CMP #### [address] [address] Electrolyte Balance 9.0 mEq/L Normal 4.0-15.0 [facility] ([place]) Comment on above: Performed By: #### C BC, MG, GFR, ANEU, MDW, ADIFF, DIMER, TROPHS, LIP, CMP #### [address] [address] Globulin 4.5 G/dL Normal [facility] ([place]) Comment on above: Performed By: #### C BC, MG, GFR, ANEU, MDW, ADIFF, DIMER, TROPHS, LIP, CMP #### [address] [address] Glucose [Mass/Vol] 108 mg/dL Normal 83-110 [facility] ([place] Comment on above: Performed By: #### C BC, MG, GFR, ANEU, MDW, ADIFF, DIMER, TROPHS, LIP, CMP #### [address] [address] Potassium [Moles/Vol] 4.7 mmol/L Normal 3.5-5.1 [facility] ([place] Comment on above: Performed By: #### C BC, MG, GFR, ANEU, MDW, ADIFF, DIMER, TROPHS, LIP, CMP #### [address] [address] Sodium [Moles/Vol] 134 mmol/L Low 136-145 [facility] ([place] Comment on above: Performed By: #### C BC, MG, GFR, ANEU, MDW, ADIFF, DIMER, TROPHS, LIP, CMP #### [address] [address] Total Protein 7.1 G/dL Normal 6.4-8.2 [facility] ([place]) Comment on above: Performed By: #### C BC, MG, GFR, ANEU, MDW, ADIFF, DIMER, TROPHS, LIP, CMP #### [address] [address] Urea nitrogen [Mass/Vol] 8 mg/dL Normal 7-18 [facility] ([place]) Comment on above: Performed By: #### C BC, MG, GFR, ANEU, MDW, ADIFF, DIMER, TROPHS, LIP, CMP #### [address] [address] LABORATORYOrdered By: SYSTEM SYSTEM on 07-16-2023 Albumin [...] SS .GFRon 07-03-2023 GFR 65 ml/min/1.73sqm Normal [facility] ([place]) Comment on above: Result Comment: GFR Population [...] LIPID, VIDH, CMP, GFR, FT4, TSH ####[id number] [place], [place] [address]#### B12 ####[address] [address] GFR Non- 53 ml/min/1.73sqm Normal [facility] ([place]) Comment on above: Result Comment: GFR Population [...] FT3, LIPID, VIDH, CMP, GFR, FT4, TSH ####[address] [address]#### B12 ####[address] [address] B12on 07-03-2023 Cobalamin (Vitamin B12) [Mass/Vol] 711 pg/mL Normal 211-911 [facility] ([place]) Comment on above: Performed By: #### C BC, MG, GFR, ANEU, MDW, ADIFF, DIMER, TROPHS, LIP, CMP #### [address] [address] CMPon 07-03-2023 Albumin Level 4.1 G/dL Normal 3.4-4.8 [facility] ([place]) Comment on above: Performed By: #### C BC, MG, GFR, ANEU, MDW, ADIFF, DIMER, TROPHS, LIP, CMP #### [place] [address] [place], [place] [address] Albumin/Globulin [Mass ratio] 1.3 {ratio} Normal 1.1-2.5 [facility] ([place]) Comment on above: Performed By: #### C BC, MG, GFR, ANEU, MDW, ADIFF, DIMER, TROPHS, LIP, CMP #### [place] [address] [place], [place] [address] ALP [Catalytic activity/Vol] 78 U/L Normal 40-135 [facility] ([place]) Comment on above: Performed By: #### C BC, MG, GFR, ANEU, MDW, ADIFF, DIMER, TROPHS, LIP, CMP #### [address] [address] ALT [Catalytic activity/Vol] 23 U/L Normal 14-59 [facility] ([place]) Comment on above: Performed By: #### C BC, MG, GFR, ANEU, MDW, ADIFF, DIMER, TROPHS, LIP, CMP #### [address] [address] AST [Catalytic activity/Vol] 20 U/L Normal 10-40 [facility] ([place]) Comment on above: Performed By: #### C BC, MG, GFR, ANEU, MDW, ADIFF, DIMER, TROPHS, LIP, CMP #### [address] [address] Bili Total 0.5 mg/dL Normal 0.2-1.0 [facility] ([place]) Comment on above: Result Comment: Use of this assay is not recommended for patients undergoing treatment with eltrombopag due to the potential for falsely elevated results. Performed By: #### C BC, MG, GFR, ANEU, MDW, ADIFF, DIMER, TROPHS, LIP, CMP #### [address] [address] BUN/Creatinine Ratio 13 ratio Normal 7-27 [facility] ([place] Comment on above: Performed By: #### C BC, MG, GFR, ANEU, MDW, ADIFF, DIMER, TROPHS, LIP, CMP #### [address] [address] Calcium [Mass/Vol] 9.3 mg/dL Normal 8.4-10.2 [facility] ([place] Comment on above: Performed By: #### C BC, MG, GFR, ANEU, MDW, ADIFF, DIMER, TROPHS, LIP, CMP #### [address] [address] Chloride [Moles/Vol] 94 mmol/L Low 98-107 [facility] ([place] Comment on above: Performed By: #### C BC, MG, GFR, ANEU, MDW, ADIFF, DIMER, TROPHS, LIP, CMP #### [place] [address] CO2 [Moles/Vol] 32 mmol/L High 23-31 [facility] ([place]) Comment on above: Performed By: #### C BC, MG, GFR, ANEU, MDW, ADIFF, DIMER, TROPHS, LIP, CMP #### [place] [address] Creatinine [Mass/Vol] 1.00 mg/dL Normal 0.55-1.02 [facility] ([place]) Comment on above: Performed By: #### C BC, MG, GFR, ANEU, MDW, ADIFF, DIMER, TROPHS, LIP, CMP #### [place] [address] Electrolyte Balance 6.0 mEq/L Normal 4.0-15.0 [facility] ([place]) Comment on above: Performed By: #### C BC, MG, GFR, ANEU, MDW, ADIFF, DIMER, TROPHS, LIP, CMP #### [place] [address] Globulin 3.1 G/dL Normal [facility] ([place]) Comment on above: Performed By: #### C BC, MG, GFR, ANEU, MDW, ADIFF, DIMER, TROPHS, LIP, CMP #### [place] [address] Glucose [Mass/Vol] 96 mg/dL Normal 83-110 [facility] ([place] Comment on above: Performed By: #### C BC, MG, GFR, ANEU, MDW, ADIFF, DIMER, TROPHS, LIP, CMP #### [place] [address] Potassium [Moles/Vol] 4.4 mmol/L Normal 3.5-5.1 [facility] ([place] Comment on above: Performed By: #### C BC, MG, GFR, ANEU, MDW, ADIFF, DIMER, TROPHS, LIP, CMP #### [address] [address] Sodium [Moles/Vol] 132 mmol/L Low 136-145 [facility] ([place] Comment on above: Performed By: #### C BC, MG, GFR, ANEU, MDW, ADIFF, DIMER, TROPHS, LIP, CMP #### [address] [address] Total Protein 7.2 G/dL Normal 6.4-8.2 [facility] ([place]) Comment on above: Performed By: #### C BC, MG, GFR, ANEU, MDW, ADIFF, DIMER, TROPHS, LIP, CMP #### [address] [address] Urea nitrogen [Mass/Vol] 13 mg/dL Normal 7-18 [facility] ([place] Comment on above: Performed By: #### C BC, MG, GFR, ANEU, MDW, ADIFF, DIMER, TROPHS, LIP, CMP #### [address] [address] FT3on 07-03-2023 Free T3 [Mass/Vol] 2.76 pg/mL Normal 2.30-4.00 [facility] ([place]) Comment on above: Performed By: #### M G, FT3, LIPID, VIDH, CMP, GFR, FT4, TSH ####[place] [address]#### B12 ####[place] [address] FT4on 07-03-2023 Free T4 [Mass/Vol] 1.21 ng/dL Normal 0.76-1.46 [facility] ([place]) Comment on above: Performed By: #### M G, FT3, LIPID, VIDH, CMP, GFR, FT4, TSH ####[address] [address]#### B12 ####[place] [address] LIPIDon 07-03-2023 Cholesterol [Mass/Vol] 265 mg/dL High 0-200 [facility] ([place]) Comment on above: Result Comment: Chol esterol Reference Interval: Less than 200 Desirable 200-239 Borderline high risk 240 and above High risk Performed By: #### C BC, MG, GFR, ANEU, MDW, ADIFF, DIMER, TROPHS, LIP, CMP #### [address] [address] Cholesterol in HDL [Mass/Vol] 89 mg/dL High 40-60 [facility] ([place]) Comment on above: Performed By: #### C BC, MG, GFR, ANEU, MDW, ADIFF, DIMER, TROPHS, LIP, CMP #### [address] [address] Cholesterol in LDL [Mass/Vol] 167 mg/dL High 0-130 [facility] ([place]) Comment on above: Performed By: #### C BC, MG, GFR, ANEU, MDW, ADIFF, DIMER, TROPHS, LIP, CMP #### [address] [address] Triglyceride [Mass/Vol] 47 mg/dL Normal 0-150 [facility] ([place]) Comment on above: Result Comment: Trig lyceride Reference Interval: Less than 150 Normal 150-199 Borderline high risk 200-499 High risk 500 or higher Very high risk Performed By: #### C BC, MG, GFR, ANEU, MDW, ADIFF, DIMER, TROPHS, LIP, CMP #### [address] [address] MGon 07-03-2023 Magnesium [Mass/Vol] 1.8 mg/dL Normal 1.8-2.4 [facility] ([place] Comment on above: Performed By: #### M G, FT3, LIPID, VIDH, CMP, GFR, FT4, TSH ####[address] [address]#### B12 ####[address] [address] TSHon 07-03-2023 TSH Qn 0.71 m[IU]/L Normal 0.36-3.74 [facility] ([place]) Comment on above: Performed By: #### M G, FT3, LIPID, VIDH, CMP, GFR, FT4, TSH ####[id number] [place], [place] [address]#### B12 ####[place] [address] VIDHon 07-03-2023 Vit. D 25-Hydroxy 55.3 ng/mL Normal [facility] ([place]) Comment on above: Result Comment: Inte rpretive Values Based on Total 25(OH) Vitamin D: Deficient <20 ng/mL Insufficient 20 - <30 ng/mL Sufficient 30-100 ng/mL Performed By: #### M G, FT3, LIPID, VIDH, CMP, GFR, FT4, TSH ####[id number] [place], [place] [address]#### B12 ####[place] [address] LABORATORYOrdered By: SYSTEM SYSTEM on 03-21-2023 25-hydroxyvitamin [...] 27 ratio AO ADM SS LABORATORYOrdered By: [employer] SYSTEM on 10-06-2021 GFR 65 ml/min/1.73sqm Invalid [...] 27 ratio AO ADM SS LABORATORYOrdered By: [employer] SYSTEM on 07-06-2021 GFR 66 ml/min/1.73sqm Invalid Interpretation Code AO Chemistry S GFR Non- 54 ml/min/1.73sqm Inval id Interpretation Code AO Chemistry S Vital Signs Date Time Vital Sign Value Performing Clinician Facility 05-03-2025 20:02-0400 Body temperature 97.8 [degF] Dr. Argelia Darby DO Work Phone: [facility] 05-03-2025 20:02-0400 Diastolic blood pressure 87 mm[Hg] Dr. Argelia Darby DO Work Phone: [facility] 05-03-2025 20:02-0400 Heart rate 84 /min Dr. Argelia Darby DO Work Phone: [facility] 05-03-2025 20:02-0400 Respiratory rate 17 /min Dr. Argelia Darby DO Work Phone: [facility] 05-03-2025 20:02-0400 SaO2% (BldA) [Mass fraction] 98 % Dr. Argelia Darby DO Work Phone: [facility] 05-03-2025 20:02-0400 Systolic blood pressure 154 mm[Hg] Dr. Argelia Darby DO Work Phone: [facility] 05-03-2025 17:17-0400 Body height 167.[address] Argelia Darby DO Work Phone: [facility] 05-03-2025 17:17-0400 Body mass index (BMI) [Ratio] 28.3 kg/m2 Dr. Argelia Darby DO Work Phone: [facility] 05-03-2025 17:17-0400 Body weight 79.[address] Argelia Darby DO Work Phone: [facility] 03-02-2025 09:01-0400 Body weight 72.58 kg Artur Georges MD Work Phone: [facility] 03-02-2025 09:01-0400 Diastolic blood pressure 54 mm[Hg] Artur Georges MD Work Phone: [facility] 03-02-2025 09:01-0400 Heart rate 73 /min Artur Georges MD Work Phone: [facility] 03-02-2025 09:01-0400 Systolic blood pressure 121 mm[Hg] Artur Georges MD Work Phone: [facility] 01-22-2025 10:13-0400 Diastolic blood pressure 54 mm[Hg] [facility] HIDE OR SKIN BUFFER - ROAD ROLLER ENGINEER Work Phone: [facility] 01-22-2025 10:13-0400 Heart rate 66 /min [facility] HIDE OR SKIN BUFFER - ROAD ROLLER ENGINEER Work Phone: [facility] 01-22-2025 10:13-0400 Systolic blood pressure 110 mm[Hg[facility] - ROAD ROLLER ENGINEER Work Phone: [facility] 01-13-2025 10:00-0400 Body temperature 97.9 [degF] Dr. Argleia Darby DO Work Phone: [facility] 01-13-2025 10:00-0400 Diastolic blood pressure 60 mm[Hg] Dr. Argelia Darby DO Work Phone: [facility] 01-13-2025 10:00-0400 Heart rate 72 /min Dr. Argelia Darby DO Work Phone: [facility] 01-13-2025 10:00-0400 Respiratory rate 22 /min Dr. Argelia Darby DO Work Phone: [facility] 01-13-2025 10:00-0400 SaO2% (BldA) [Mass fraction] 96 % Dr. Argelia Darby DO Work Phone: [facility] 01-13-2025 10:00-0400 Systolic blood pressure 121 mm[Hg] Dr. Argelia Darby DO Work Phone: [facility] 01-11-2025 11:29-0400 Inhaled oxygen flow rate 2 L/min Dr. Argelia Darby DO Work Phone: [facility] 01-07-2025 13:11-0400 Body weight 78.[address] Argelia Darby DO Work Phone: [facility] 01-06-2025 10:38-0400 Body mass index (BMI) [Ratio] 28 kg/m2 Dr. Argelia Darby DO Work Phone: [facility] 12-11-2024 11:43-0400 Body temperature 97.7 [degF] Dr. Argelia Darby DO Work Phone: [facility] 12-11-2024 11:43-0400 Diastolic blood pressure 64 mm[Hg] Dr. Argelia Darby DO Work Phone: [facility] 12-11-2024 11:43-0400 Heart rate 62 /min Dr. Argelia Darby DO Work Phone: [facility] 12-11-2024 11:43-0400 Respiratory rate 18 /min Dr. Agrelia Darby DO Work Phone: [facility] 12-11-2024 11:43-0400 SaO2% (BldA) [Mass fraction] 98 % Dr. Argelia Darby DO Work Phone: [facility] 12-11-2024 11:43-0400 Systolic blood pressure 116 mm[Hg] Dr. Argelia Darby DO Work Phone: [facility] 12-11-2024 08:50-0400 Inhaled oxygen flow rate 2 L/min Dr. Argelia Darby DO Work Phone: [facility] 12-07-2024 11:38-0400 Body height 167.[address] Argelia Darby DO Work Phone: [facility] 12-07-2024 11:38-0400 Body weight 79.[address] Argelia Darby DO Work Phone: [facility] 12-06-2024 20:05-0400 Body mass index (BMI) [Ratio] 28.4 kg/m2 Dr. Argelia Darby DO Work Phone: [facility] 12-06-2024 19:02-0400 Body temperature 98.1 [degF] Dr. Argelia Darby DO Work Phone: [facility] 12-06-2024 19:02-0400 Diastolic blood pressure 91 mm[Hg] Dr. Argelia Darby DO Work Phone: [facility] 12-06-2024 19:02-0400 Heart rate 86 /min Dr. Argelia Darby DO Work Phone: [facility] 12-06-2024 19:02-0400 Respiratory rate 18 /min Dr. Argelia Darby DO Work Phone: [facility] 12-06-2024 19:02-0400 SaO2% (BldA) [Mass fraction] 100 % Dr. Argelia Darby DO Work Phone: [facility] 12-06-2024 19:02-0400 Systolic blood pressure 142 mm[Hg] Dr. Argelia Darby DO Work Phone: [facility] 12-06-2024 16:31-0400 Body height 167.[address] Argelia Darby DO Work Phone: [facility] 12-06-2024 16:31-0400 Body mass index (BMI) [Ratio] 30.9 kg/m2 Dr. Argelia Darby DO Work Phone: [facility] 12-06-2024 16:31-0400 Body weight [address] Argelia Darby DO Work Phone: [facility] 12-04-2024 14:48-0400 Body mass index (BMI) [Ratio] 18.7 kg/m2 Dr. Argelia Darby DO Work Phone: [facility] 12-04-2024 14:48-0400 Body weight 52.[address] Argelia Darby DO Work Phone: [facility] 12-04-2024 14:48-0400 Diastolic blood pressure 69 mm[Hg] Dr. Argelia Darby DO Work Phone: [facility] 12-04-2024 14:48-0400 Heart rate 61 /min Dr. Argelia Darby DO Work Phone: [facility] 12-04-2024 14:48-0400 Respiratory rate 18 /min Dr. Argelia Darby DO Work Phone: [facility] 12-04-2024 14:48-0400 Systolic blood pressure 155 mm[Hg] Dr. Argelia Darby DO Work Phone: [facility] 08-28-2024 08:54-0500 Body mass index (BMI) [Ratio] 29.5 kg/m2 Dr. Argelia Darby DO Work Phone: [facility] 08-28-2024 08:54-0500 Body weight [address] Argelia Darby DO Work Phone: [facility] 08-28-2024 08:54-0500 Diastolic blood pressure 73 mm[Hg] Dr. Argelia Darby DO Work Phone: [facility] 08-28-2024 08:54-0500 Heart rate 58 /min Dr. Argelia Darby DO Work Phone: [facility] 08-28-2024 08:54-0500 Respiratory rate 18 /min Dr. Argelia Darby DO Work Phone: [facility] 08-28-2024 08:54-0500 Systolic blood pressure 142 mm[Hg] Dr. Argelia Darby DO Work Phone: [facility] 09-04-2023 11:22-0500 Body height 167.[address] Madhavi Pate Work Phone: [facility] 09-04-2023 11:22-0500 Body mass index (BMI) [Ratio] 28.7 kg/m2 Dr. Madhavi Pate Work Phone: [facility] 09-04-2023 11:22-0500 Body weight 80.[address] Madhavi Pate Work Phone: [facility] 09-04-2023 11:22-0500 Diastolic blood pressure 70 mm[Hg] Dr. Madhavi Pate Work Phone: [facility] 09-04-2023 11:22-0500 Heart rate 61 /min Dr. Madhavi Pate Work Phone: [facility] 09-04-2023 11:22-0500 Respiratory rate 16 /min Dr. Madhavi Pate Work Phone: [facility] 09-04-2023 11:22-0500 Systolic blood pressure 150 mm[Hg] Dr. Madhavi Pate Work Phone: [facility] 09-02-2023 11:12-0500 Blood Pressure Location YAZMIN ANDERS DO [facility] 09-02-2023 11:12-0500 Body temperature 97.88 [degF] YAZMIN PACET DO [facility] 09-02-2023 11:12-0500 Diastolic Blood Pressure Non-Invasive 79 mm[Hg] YAZMIN PACET DO [facility] 09-02-2023 11:12-0500 Heart rate 60 /min YAZMIN SANJEEVT DO [facility] 09-02-2023 11:12-0500 Respiratory rate 16 /min YAZMIN PACET DO [facility] 09-02-2023 11:12-0500 Systolic Blood Pressure Non-Invasive 151 mm[Hg] YAZMIN SANJEEVT DO [facility] 08-14-2023 11:04-0500 Body temperature 97.2 [degF] Dr. Madhavi Pate Work Phone: [facility] 08-14-2023 11:04-0500 Diastolic blood pressure 58 mm[Hg] Dr. Madhavi Pate Work Phone: [facility] 08-14-2023 11:04-0500 Heart rate 61 /min Dr. Madhavi Pate Work Phone: [facility] 08-14-2023 11:04-0500 Respiratory rate 16 /min Dr. Madhavi Pate Work Phone: [facility] 08-14-2023 11:04-0500 SaO2% (BldA) [Mass fraction] 95 % Dr. Madhavi Pate Work Phone: [facility] 08-14-2023 11:04-0500 Systolic blood pressure 147 mm[Hg] Dr. Madhavi Pate Work Phone: [phone](667)[phone] [place] [address] 08-13-2023 06:00-0500 Body mass index (BMI) [Ratio] 29.1 kg/m2 Dr. Madhavi Pate Work Phone: [facility] 08-13-2023 06:00-0500 Body weight 81.[address] Madhavi Pate Work Phone: [phone](383)[phone] [place] [address] 08-08-2023 15:24-0500 Body height 167.[address] Madhavi Pate Work Phone: [facility] 08-07-2023 08:14-0500 Inhaled oxygen flow rate 1.5 L/min Dr. Madhavi Pate Work Phone: [facility] 07-31-2023 13:56-0500 Body temperature 98.5 [degF] Dr. Madhavi Pate Work Phone: 4(442)[phone] [place] [address] 07-31-2023 13:56-0500 Diastolic blood pressure 65 mm[Hg] Dr. Madhavi Pate Work Phone: [facility] 07-31-2023 13:56-0500 Heart rate 66 /min Dr. Madhavi Pate Work Phone: [facility] 07-31-2023 13:56-0500 Respiratory rate 18 /min Dr. Madhavi Pate Work Phone: [facility] 07-31-2023 13:56-0500 SaO2% (BldA) [Mass fraction] 100 % Dr. Madhavi Pate Work Phone: [facility] 07-31-2023 13:56-0500 Systolic blood pressure 160 mm[Hg] Dr. Madhavi Pate Work Phone: [facility] 07-31-2023 10:32-0500 Inhaled oxygen flow rate 2 L/min Dr. Madhavi Pate Work Phone: [facility] 07-31-2023 05:44-0500 Body mass index (BMI) [Ratio] 30.7 kg/m2 Dr. Madhavi Pate Work Phone: [facility] 07-31-2023 05:44-0500 Body weight 83.[address] Madhavi Pate Work Phone: [facility] 07-29-2023 09:43-0500 Body height 165.[address] Madhavi Pate Work Phone: [facility] 07-27-2023 22:38-0400 Diastolic Blood Pressure Non-Invasive 71 1 RASHEL SPANGLER DO [facility] 07-27-2023 22:38-0400 Heart rate 68 /min RASHELERNIE SPANGLER DO [facility] 07-27-2023 22:38-0400 Respiratory rate 18 /min RASHEL RADHAEDWIN DO [facility] 07-27-2023 22:38-0400 Systolic Blood Pressure Non-Invasive 133 1 RASHELERNIE SPANGLER DO [facility] 07-27-2023 22:12-0400 Diastolic Blood Pressure Non-Invasive 92 1 RASHELERNIE SPANGLER DO [facility] 07-27-2023 22:12-0400 Heart rate 91 /min RASHEL DURESKA DO [facility] 07-27-2023 22:12-0400 Respiratory rate 18 /min RASHEL DURESKA DO [facility] 07-27-2023 22:12-0400 Systolic Blood Pressure Non-Invasive 155 1 RASHEL DURESKA DO [facility] 07-27-2023 21:33-0400 Diastolic Blood Pressure Non-Invasive 68 1 RASHEL DURESKA DO [facility] 07-27-2023 21:33-0400 Heart rate 71 /min RASHEL DURESKA DO [facility] 07-27-2023 21:33-0400 Respiratory rate 18 /min RASHEL DURESKA DO [facility] 07-27-2023 21:33-0400 Systolic Blood Pressure Non-Invasive 163 1 RASHEL DURESKA DO [facility] 07-27-2023 19:48-0400 Body temperature 97.88 [degF] RASHEL DURESKA DO [facility] 07-27-2023 19:48-0400 Heart rate 66 /min RASHEL DURESKA DO [facility] Encounters Encounter Date Encounter Type Care Provider Facility Start: 08-03-2025 ambulatory Argelia Darby Facility :[facility] Start: 07-08-2025 ambulatory Argelia Darby Facility :[facility] Start: 05-18-2025 End: 05-19-2025 Telephone encounter Artur Georges MD Work Phone: [facility] Comment on above: Orders (Catheter ) Start: 05-03-2025 End: 05-03-2025 Emergency department patient visit Dr. Argelia Darby DO Work Phone: -Emergency Department Work Phone: Start: 04-21-2025 End: 04-21-2025 Telephone encounter [facility]ur [facility]es [facility] Comment on above: Orders Start: 04-09-2025 ambulatory Argelia Darby Facility :[facility] Start: 04-09-2025 Registered Referred [facility] Start: 03-02-2025 End: 03-02-2025 Office outpatient visit 25 minutes Artur Georges MD [facility] Comment on above: Urinary retention (P rimary Dx) Start: 03-02-2025 End: 03-02-2025 ambulatory [facility] Start: 02-18-2025 [facility] Start: 02-18-2025 Registered Referred [facility] -[facility] Start: 02-09-2025 ambulatory Gene PARHAM Facili ty:[facility] Start: 02-09-2025 Registered Referred Gene Duenas MD -[facility] Start: 02-06-2025 ambulatory Geneellis Duenas OLS Facili ty:[facility] Start: 02-06-2025 Registered Referred Gene Duenas MD -[facility] Start: 01-26-2025 ambulatory Gene PARHAM Facili ty:[facility] Start: 01-26-2025 Registered Referred Gene Duenas MD -[facility] Start: 01-23-2025 End: 01-26-2025 Telephone encounter Rosita Daniels CNP [facility] Comment on above: Appointment Request Start: 01-22-2025 End: 01-22-2025 Office outpatient new 45 minutes Rosita Resendiz APRN - [facility] Work [facility]: [facility] Comment on above: Urinary retention (P rimary Dx) Start: 01-22-2025 End: 01-22-2025 ambulatory [facility] Start: 01-22-2025 Registered Referred Gene Duenas MD -[facility] Start: 01-19-2025 End: 01-19-2025 Telephone encounter Artur Georges MD Work Phone: [facility] Clinical Communication Comment on above: Appointment Request Start: 01-19-2025 ambulatory Argelia Draby Facility :[facility] Start: 01-19-2025 Registered Referred Gene Duenas MD -[facility] Start: 12-19-2024 End: 12-19-2024 ambulatory [facility] Facility:[facility] Start: 12-19-2024 [facility]counter [facility] Start: 12-11-2024 End: 01-13-2025 Evaluation and management of inpatient Dr. Juan Diego Marks MD -Transitional Care Unit Start: 12-11-2024 Non-patient / Non-visit Dr. Garcia DO -[facility] Work Phone: Start: 12-10-2024 Non-patient / Non-visit Dr. Madhavi Pate MD -[facility] Work Phone: Start: 12-09-2024 Non-patient / Non-visit Dr. Montse Cabrera MD -[facility] Work Phone: Start: 12-08-2024 Non-patient / Non-visit Dr. Neela Dang MD -[facility] Start: 12-08-2024 Non-patient / Non-visit Dr. Montse Cabrera MD -[facility] Work Phone: Start: 12-07-[address] Wing Darby DO Work Phone: [facility] Start: 12-07-2024 Non-patient / Non-visit Dr. Montse Cabrera MD -[facility] Work Phone: Start: 12-06-2024 Non-patient / Non-visit Dr. Sandro Jackman MD -[facility] Work Phone: Start: 12-06-2024 End: 12-11-[address] Donovan Cano DO [facility] Start: 12-06-2024 End: 12-11-2024 Evaluation and management of inpatient Dr. Sandro Jackman MD -Progressive Care Unit Work Phone: Start: 12-06-2024 ambulatory Montse Cabrera Facility :[facility] Start: 12-04-2024 End: 12-04-[address] Kristy Andrew MD -[facility] Work Phone: Start: 12-04-2024 End: 12-04-2024 ambulatory Argeliademetrius Darby Facility:[facility] Start: 11-07-2024 ambulatory ARGELIA DARBY DO Facil ity:[facility] Start: 10-29-2024 End: 10-29-2024 ambulatory ARGELIA DARBY DO Facility[place] [place] Start: 10-29-2024 End: 10-29-2024 Patient encounter procedure ARGELIA DARBY DO [facility] Start: 09-06-2024 ambulatory Argelia Wilner Facility :[facility] Start: 09-06-2024 Non-patient / Non-visit Dr. Kristy jett MD -[facility] Work Phone: Start: 09-06-2024 ambulatory Argelia Darby Facility :[facility] Start: 09-06-[address] Kristy Andrew MD -Cardiovascular Services Work Phone: Start: 08-28-2024 End: 08-28-[address] Kristy Andrew MD -[facility] Work Phone: Start: 08-28-2024 End: 08-28-2024 ambulatory Argelia Darby Facility:[facility] Start: 08-25-2024 End: 08-25-2024 ambulatory ARGELIA DARBY DO Facility[place] [place] Start: 08-25-2024 End: 08-25-2024 Patient encounter procedure ARGELIA EASONY DO [facility] Start: 07-31-2024 End: 07-31-2024 ambulatory ARGELIA EASONY DO Facility:[facility] Start: 07-31-2024 End: 07-31-2024 Patient encounter procedure ARGELIA WILNER DO [facility] Start: 05-23-2024 End: 05-23-2024 ambulatory ARGELIA WILNER DO Facility:[facility] Start: 05-23-2024 End: 05-23-2024 Patient encounter procedure JESUS WOODARD HIDE OR SKIN BUFFER-ROAD ROLLER ENGINEER [facility] Start: 05-15-2024 End: 05-15-2024 ambulatory ARGELIA EASONY DO Facility:[facility] Start: 05-15-2024 End: 05-15-2024 Patient encounter procedure ARGELIA WILSONLAY DO [facility] Start: 04-15-2024 End: 04-15-2024 ambulatory ARGELIA WILNER DO Facility:B Start: 04-15-2024 End: 04-15-2024 Patient encounter procedure ARGELIA WILSONLAY DO [facility] Start: 03-03-2024 End: 03-03-2024 ambulatory ARGELIA WILNER DO Facility:B Start: 03-03-2024 End: 03-03-2024 Patient encounter procedure ARGELIA WILSONLAY DO [facility] Start: 01-30-2024 End: 01-30-2024 ambulatory ARGELIA EASONY DO Facility:B Start: 12-11-2023 End: 12-11-2023 ambulatory ARGELIA EASONY DO Facility:[facility] Start: 12-11-2023 End: 12-11-2023 Patient encounter procedure ARGELIA WILSONLAY DO [facility] Start: 12-04-2023 End: 12-08-2023 ambulatory ARGELIA DARBY DO Facility:B Start: 12-04-2023 End: 12-08-2023 Outreach Lab ARGELIA DARBY DO [facility] Start: 12-04-2023 End: 12-08-2023 ambulatory ARGELIA DRABY DO Facility:B Start: 12-04-2023 End: 12-08-2023 Outreach Lab ARGELIA DARBY DO [facility] Start: 10-10-2023 End: 10-10-2023 ambulatory ARGELIA DARBY DO Facility:[facility] Start: 10-10-2023 End: 10-10-[address] CATIE SNOWDEN MD [facility] Start: 09-26-2023 Non-patient / Non-visit Dr. Deidra Pate Work Phone: [facility] Work Phone: Start: 09-26-2023 Non-patient / Non-visit Dr. Deidra Pate Work Phone: [facility] Start: 09-26-2023 End: 09-26-[address] Madhavi Pate Work Phone: [facility] Work Phone: Start: 09-26-2023 End: 09-26-[address] Madhavi Pate Work Phone: [facility]-Cardiovascula r Services Work Phone: Start: 09-19-2023 End: 10-09-2023 ambulatory ARGELIA DARBY DO Facility:[facility] Start: 09-19-2023 End: 10-09-2023 Physical therapy management ARGELIA DARBY DO [facility] Start: 09-13-2023 End: 09-13-2023 ambulatory ARGELIA DARBY DO Facility:B Start: 09-11-2023 End: 09-11-2023 ambulatory ARGELIA DARBY DO Facility:[facility] Start: 09-04-2023 End: 09-04-[address] Madhavi Pate Work Phone: [facility] Work Phone: Start: 09-02-2023 End: 09-02-2023 Emergency department patient visit YAZMIN ANDERS DO [facility] Start: 08-30-2023 End: 08-30-2023 ambulatory ARGELIA DARBY DO Facility:[facility] Start: 08-30-2023 End: 08-30-2023 Patient encounter procedure ARGELIA Victoriano WILNER DO [facility] Start: 08-21-2023 End: 08-21-2023 ambulatory ARGELIA DARBY DO Facility:B Start: 07-31-2023 End: 08-14-2023 Evaluation and management of inpatient Dr. Madhavi Pate Work Phone: [facility]-Transitional Care Unit Start: 07-31-2023 Non-patient / Non-visit Dr. Deidra Pate Work Phone: [facility] Work Phone: Start: 07-30-2023 Non-patient / Non-visit Dr. Deidra Pate Work Phone: [facility] Work Phone: Start: 07-29-2023 Non-patient / Non-visit Dr. Deidra Pate Work Phone: [facility] Work Phone: Start: 07-28-2023 End: 07-31-2023 Evaluation and management of inpatient Dr. Madhavi Pate Work Phone: [facility]-Medical Surgical 3 Work Phone: Start: 07-28-2023 Non-patient / Non-visit Dr. Deidra Pate Work Phone: [facility] Work Phone: Start: 07-27-2023 End: 07-27-2023 Emergency department patient visit RASHEL JONATHANRENETTA DO [facility] Start: 07-26-2023 End: 07-26-2023 Emergency department patient visit ARGELIA DARBY DO Facility:B Start: 07-24-2023 End: 07-28-2023 ambulatory ARGELIA DARBY Facility:[facility] Start: 07-24-2023 End: 07-28-2023 Outreach Lab ARGELIA DARBY [facility] Start: 07-16-2023 End: 07-16-2023 ambulatory ARGELIA WILSONLAChristian ESTEVEZ Facility:B Start: 07-16-2023 End: 07-16-2023 Patient encounter procedure ARGELIA DARBY DO [facility] Start: 07-03-2023 End: 07-03-2023 ambulatory ARGELIA DARBY Facility:[facility] Start: 03-21-2023 End: 03-21-2023 Patient encounter procedure ARGELIA DARBY DO [facility] Start: 12-26-2022 End: 12-30-2022 Outreach Lab ARGELIA DARBY DO [facility] Start: 12-26-2022 End: 12-26-2022 Patient encounter procedure ARGELIA DARBY DO [facility] Start: 08-23-2022 End: 08-23-2022 Patient encounter procedure ARGELIA Pastrana WILNER DO [facility] Start: 04-19-2022 End: 04-19-2022 Patient encounter procedure ARGELIA Pastrana WILNER DO [facility] Start: 04-05-2022 End: 04-05-2022 Patient encounter procedure ARGELIA Pastrana WILNER DO [facility] Start: 12-09-2021 End: 01-25-2022 Physical therapy management ARGELIA Pastrana WILNER DO [facility] Start: 12-07-2021 End: 12-07-2021 Patient encounter procedure ARGELIA Pastrana WILNER DO [facility] Start: 10-20-2021 End: 10-20-2021 Patient encounter procedure ARGELIA Pastrana WILNER DO [facility] Start: 10-13-2021 End: 10-13-2021 Patient encounter procedure ARGELIA Pastrana WILNER DO [facility] Start: 10-06-2021 End: 10-06-2021 Patient encounter procedure ARGELIA Pastrana WILNER DO [facility] Start: 08-01-2021 End: 08-01-2021 Patient encounter procedure SHAYNE GONZALEZ HIDE OR SKIN BUFFER-ROAD ROLLER ENGINEER [facility] Start: 07-06-2021 End: 07-06-2021 Patient encounter procedure SHAYNE GONZALEZ HIDE OR SKIN BUFFER-ROAD ROLLER ENGINEER [facility] Procedures Date Procedure Procedure Detail [...] 02-18-[address] Burton in [place] DO Work Phone: Start: 02-18-2025 Urnls dip stick/tabl et reagent auto microscopy Dr. Argelia Darby DO Work Phone: Start: 01-22-[address] Burton in [place] DO Work Phone: Start: 01-22-2025 Urnls dip stick/tabl et reagent auto microscopy Dr. Argelia Darby DO Work Phone: Start: 01-11-[address] Argelia Darby DO Work Phone: Start: 01-05-2025 X-ray of knee, one o r two views Dr. Argelia Darby DO Work Phone: Start: 12-30-[address] Burton in [place] DO Work Phone: Start: 12-30-2024 Urnls dip stick/tabl [...] eye Start: 09-09-2020 Cardiac catheterization SHAYNE GONZALEZ HIDE OR SKIN BUFFER-ROAD ROLLER ENGINEER Start: 08-22-2010 Thyroidectomy SHAYNE Villagomez FIDELIA HIDE OR SKIN BUFFER-ROAD ROLLER ENGINEER Comment on above: Bilateral follicular thyroid nodule, cystic colloid nodule Start: 09-24-1994 Dilation and curetta ge of uterus SHAYNE GONZALEZ HIDE OR SKIN BUFFER-ROAD ROLLER ENGINEER Comment on above: cone biopsy Start: 09-24-1982 Ligation of fallopian tube SHAYNE GONZALEZ HIDE OR SKIN BUFFER-ROAD ROLLER ENGINEER Start: 09-24-1958 Tonsillectomy SHAYNE Villagomez FIDELIA HIDE OR SKIN BUFFER-ROAD ROLLER ENGINEER Colonoscopy SHAYNERAMU GONZALEZ DEVYN RN-ROAD ROLLER ENGINEER Endometrial biopsy SHAYNE Villagomez FIDELIA HIDE OR SKIN BUFFER-ROAD ROLLER ENGINEER Comment on above: 1992 & 1988 Tympanotomy SHAYNE CARLOS SHEPARD RN-ROAD ROLLER ENGINEER Comment on above: right ear Plan of Treatment Date Care Activity Detail Author Start: 12-06-2034 DTaP/Tdap/Td Vaccines (3 - Td or Tdap) DTaP/Tdap/Td Vaccines (3 - Td or Tdap) [facility] Start: 05-25-2025 Influenza vaccination [facility] Start: 05-03-2025 [facility] Start: 03-02-2025 End: 03-02-2025 Patient encounter procedure 03/02/2025 9:20 AM EDT Procedure Visit [facility] [address] [place] [address] Artur Georges MD [address] [place] [id number] [facility] Start: 01-22-2025 End: 01-22-2025 Patient encounter procedure 01/22/2025 10:00 AM EDT Office Visit [facility] [address] [place] [address] Rosita Resendiz HIDE OR SKIN BUFFER - ROAD ROLLER ENGINEER [address] [place] [address] [facility] Start: 01-13-[address] [facility] Start: 01-12-[address]25 Develop[address] treatment plan [facility] Start: 01-12-2025 Development of care plan [facility] Start: 01-11-[address] [facility] Start: 01-10-2025 Removal of urinary catheter [facility] Start: 01-08-2025 Developing a treatment plan [facility] Start: 01-08-2025 Development of care plan [facility] Start: 01-07-[address] [facility] Start: 01-05-2025 [facility] Start: 12-29-2024 Removal of urinary catheter [facility] Start: 12-17-2024 [facility] Start: 12-12-2024 Development of care plan [facility] Start: 12-12-2024 Speech therapy management [facility] Start: 12-12-2024 Developing a treatment plan [facility] Start: 12-12-2024 Speech therapy assessment [facility] Start: 12-12-2024 [facility] Start: 12-12-2024 [facility] Start: 12-11-2024 End: 12-12-2024 Patient referral to dietitian [facility] Start: 12-11-2024 Following clinical pathway protocol [facility] Start: 12-11-[address] [facility] Start: 12-11-2024 Introduction of urinary catheter [facility] Start: 12-11-2024 Measuring intake and output [facility] Start: 12-11-2024 Referral to occupational therapist [facility] Start: 12-11-[address] [facility] Start: 12-11-2024 Vital signs measurements [facility] Start: 12-11-2024 End: 12-11-2024 [facility] Start: 12-11-[address] [facility] Start: 12-10-[address] [facility] Start: 12-09-2024 Referral to license distributor [facility] Start: 12-07-2024 [facility] Start: 12-06-2024 Referral to freight and passenger agent [facility] Start: 12-06-2024 [facility] Start: 12-06-2024 Care planning and problem solving actions [facility] Start: 12-06-2024 Following clinical pathway protocol [facility] Start: 12-06-2024 Assessment of risk of venous thromboembolism [facility] Start: 12-06-[address] [facility] Start: 12-06-2024 Insertion of catheter into peripheral vein [facility] Start: 12-06-2024 Patient referral to dietitian [facility] Start: 12-06-2024 Providing care according to standard [facility] Start: 12-06-2024 Provision [address] privileges [facility] Start: 12-06-2024 Referral to occupational therapist [facility] Start: 12-06-[address] [facility] Start: 12-06-2024 [facility] Start: 12-06-[address] [facility] Start: 12-06-[address] [facility] Start: 12-06-2024 End: 12-06-2024 [facility] Start: 12-06-2024 Hospital admission, emergency, from emergency room, medical nature [facility] Start: 12-06-2024 End: 12-07-2024 [facility] Start: 05-25-2024 COVID-19 Vaccine ( season) COVID-19 Vaccine () [facility] Start: 05-25-2024 COVID-19 Vaccine ( season) COVID-19 Vaccine () [facility] Start: 09-12-[address] [facility] Start: 09-05-[address] [facility] Start: 08-29-[address] [facility] Start: 08-22-[address] [facility] Start: 08-15-[address] [facility] Start: 08-14-[address] [facility] Start: 08-13-2023 Development of care plan [facility] Start: 08-08-[address] [facility] Start: 08-06-[address] [facility] Start: 08-05-[address] [facility] Start: 08-04-[address] [facility] Start: 08-03-[address] [facility] Start: 08-02-[address] [facility] Start: 08-01-2023 Development of care plan [facility] Start: 08-01-2023 Developing a treatment plan [facility] Start: 08-01-[address] [facility] Start: 07-31-2023 Following clinical pathway protocol [facility] Start: 07-31-[address] [facility] Start: 07-31-[address]23 Me[address]uring intake and output [facility] Start: 07-31-2023 Patient referral to dietitian [facility] Start: 07-31-2023 Referral to occupational therapist [facility] Start: 07-31-[address] [facility] Start: 07-31-2023 Vital signs measurements [facility] Start: 07-31-2023 [facility] Start: 07-31-[address] [facility] Start: 07-29-[address] [facility] Start: 07-28-2023 [facility] Start: 07-28-[address] [facility] Start: 07-28-2023 Referral to license distributor [facility] Start: 07-28-2023 Following clinical pathway protocol [facility] Start: 07-28-[address] [facility] Start: 07-28-2023 Assessment of risk of venous thromboembolism [facility] Start: 07-28-2023 Insertion of catheter into peripheral vein [facility] Start: 07-28-2023 Providing care according to standard [facility] Start: 07-28-2023 Provision of activity privileges [facility] Start: 07-28-[address] [facility] Start: 07-28-2023 End: 07-28-2023 [facility] Start: 07-28-2023 Introduction of urinary catheter [facility] Start: 07-28-[address] [facility] Start: 07-28-2023 Referral to occupational therapist [facility] Start: 07-28-[address] [facility] Start: 07-28-2023 Measuring intake and output [facility] Start: 2018 RSV Immunization for Adults (1 - 1-dose 75+ series) RSV Immunization for Adults (1 - 1-dose 75+ series) [facility] Start: 06-08-2009 Zoster Vaccines (2 of 3) Zoster Vaccines (2 of 3) [facility] Start: 1993 Pneumococcal Vaccine: 50+ Years (1 of 1 - PCV) Pneumococcal Vaccine: 50+ Years (1 of 1 - PCV) [facility] Start: 1993 Zoster Vaccines (1 of 2) Zoster Vaccines (1 of 2) [facility] Start: 1962 DTaP/Tdap/Td Vaccines (1 - Tdap) DTaP/Tdap/Td Vaccines (1 - Tdap) [facility] Start: 1955 Depression Monitoring Depression Monitoring [facility] Start: 1955 Depression Screening Depression Screening [facility] Start: 1943 Lipid panel Lipid Panel [facility] Start: 1943 Medicare Annual Wellness (AWV) Medicare Annual Wellness (AWV) [facility] Start: 1943 Screening for osteoporosis Bone Density Scan [facility] Start: 1943 Thyroid stimulating hormone measurement TSH Level [facility] CT angiography of co ronary arteries [facility] CTA Heart and [place] ry arteries W contrast IV [facility] Patient Education [facility] Work Phone: Patient referral [facility] Work Phone: Troponin T.cardiac [Mass/volume] in Serum or Plasma by High sensitivity method [facility] Troponin T.cardiac [Mass/volume] in Serum or Plasma by High sensitivity method [facility] Troponin T.cardiac [Mass/volume] in Serum or Plasma by High sensitivity method [facility] Immunizations Immunization Date Immunization Notes Care Provider Fa [facility] 12-06-2024 tetanus toxoid, redu christopher diphtheria toxoid, and acellular pertussis vaccine, adsorbed Dr. Argelia Darby DO Work Phone: [facility] 07-11-2022 pneumococcal polysaccharide vaccine, 23 valent; Translations: [Pneumovax 23] ARGELIA DARBY DO [facility] 05-17-2021 SARS-CoV-2 (COVID-19 ) mRNA-1273 vaccine ARGELIA DARBY DO [facility] 04-16-2021 SARS-CoV-2 (COVID-19 ) mRNA-1273 vaccine ARGELIA DARBY DO [facility] 06-05-2019 influenza virus vacc ine, unspecified formulation SHAYNE FISH HIDE OR SKIN BUFFER-ROAD ROLLER ENGINEER [facility] 06-05-2019 Seasonal trivalent influenza vaccine, adjuvanted, preservative free Dr. Madhavi Pate Work Phone: [facility] 05-29-2018 influenza virus vacc ine, unspecified formulation SHAYNE FISH HIDE OR SKIN BUFFER-ROAD ROLLER ENGINEER [facility] 05-29-2018 Seasonal trivalent influenza vaccine, adjuvanted, preservative free Dr. Madhavi Pate Work Phone: [facility] 06-07-2017 influenza virus vacc ine, unspecified formulation SHAYNE FISH HIDE OR SKIN BUFFER-ROAD ROLLER ENGINEER [facility] 06-07-2017 Seasonal trivalent influenza vaccine, adjuvanted, preservative free Dr. Madhavi Pate Work Phone: [facility] 05-01-2017 pneumococcal conjuga te vaccine, 13 valent SHAYNE FISH HIDE OR SKIN BUFFER-ROAD ROLLER ENGINEER [facility] 06-21-2016 influenza virus vacc ine, unspecified formulation SHAYNE FISH HIDE OR SKIN BUFFER-ROAD ROLLER ENGINEER [facility] 06-21-2016 Influenza, high dose seasonal Dr. Argelia Darby DO Work Phone: [facility] 06-21-2016 influenza, high dose seasonal, preservative-free Dr. Madhavi Pate Work Phone: [facility] 05-25-2016 influenza virus vacc ine, unspecified formulation SHAYNE FISH HIDE OR SKIN BUFFER-ROAD ROLLER ENGINEER [facility] 05-25-2016 influenza, injectabl e, quadrivalent, preservative free Dr. Madhavi Pate Work Phone: [facility] 05-17-2015 influenza virus vacc ine, unspecified formulation SHAYNE GONZALEZ HIDE OR SKIN BUFFER-ROAD ROLLER ENGINEER [facility] 05-17-2015 Influenza, high dose seasonal Dr. Argelia Darby DO Work Phone: [facility] 05-17-2015 influenza, high dose seasonal, preservative-free Dr. Madhavi Pate Work Phone: [facility] 07-16-2014 influenza virus vacc ine, unspecified formulation SHAYNE CARLOS HIDE OR SKIN BUFFER-ROAD ROLLER ENGINEER [facility] 07-16-2014 Seasonal, quadrivale nt, recombinant, injectable influenza vaccine, preservative free Dr. Madhavi Pate Work Phone: [facility] 01-12-2011 tetanus toxoid, redu christopher diphtheria toxoid, and acellular pertussis vaccine, adsorbed SHAYNE GOZNALEZ HIDE OR SKIN BUFFER-ROAD ROLLER ENGINEER [facility] 04-13-2009 zoster vaccine, live SHAYNE GONZALEZ HIDE OR SKIN BUFFER-ROAD ROLLER ENGINEER [facility] Payers Date Payer Category Payer Self-pay [id number] 2021 Unknown [id number] 2016 Yogi Mondragon [facility] - O GONZALEZ CEVALLOS [id number]. 2.7.9.409990.125074.315 2009 Unknown [id number] 2008 Medicare [id number] 2008 Medicare [id number] 1945 Unknown [id number] .1.880457.3.579. 2. 1943 Unknown [id number] .1.824062.3.579. 2 1943 Unknown [id number] .1.101347.3.579. 2 1943 Unknown [id number] .1.170927.3.579. 2 1943 Unknown [id number] 11.09.830.1.746648.3.579. 2 1943 Unknown [id number] 11.09.830.1.015072.3.579. 2 1943 Unknown [id number] 11.09.830.1.478407.3.579. 2 1943 Unknown [id number] 11.09.830.1.966699.3.579. 2 1943 Unknown [id number] 840.1.785497.3.579. 2.627 1943 Unknown [id number] 2.16.840.1.461259.3.579. 2.627 1943 Unknown [id number] 2.16.840.1.404530.3.579. 2.627 1943 Unknown [id number] 2.16.840.1.963740.3.579. 2.627 1943 Unknown [id number] 2.16.840.1.819134.3.579. 2.627 1943 Unknown [id number] 2.16.840.1.056772.3.579. 2. 1943 Unknown [id number] 2.16.840.1.895996.3.579. 2. 1943 Unknown [id number] 2.16.840.1.826283.3.579. 2. 1943 Unknown [id number] 2.16.840.1.570508.3.579. 2.627 1943 Unknown [id number] 2.16.840.1.417153.3.579. 2. 1943 Unknown [id number] 2.16.840.1.520979.3.579. 2.627 1943 Unknown [id number] 2.16.840.1.591282.3.579. 2.62 1943 Unknown [id number] 2.16.840.1.719716.3.579. 2.627 1943 Unknown [id number] 2.16.840.1.778814.3.579. 2. 1943 Unknown [id number] 2.16.840.1.115080.3.579. 2.627 1943 Unknown [id number] 2.16.840.1.886876.3.579. 2. 1943 Unknown [id number] 2..840.1.375152.3.579. 2.627 1943 Unknown [id number] 2..840.1.292450.3.579. 2.627 Unknown [id number] 2.16.840.1.226042.3.579. 2.462 Unknown [id number] 2.840.1.106851.3.579. 2.462 Unknown [id number] 2.840.1.409978.3.579. 2.462 Unknown [id number] 2.840.1.963215.3.579. 2.462 Unknown [id number] 2.840.1.866423.3.579. 2.462 Unknown [id number] 2.840.1.758517.3.579. 2.462 Unknown [id number] 2.840.1.373717.3.579. 2.462 Unknown [id number] 2.840.1.236690.3.579. 2.462 Unknown [id number] 2.840.1.021048.3.579. 2.462 Unknown [id number] 2.840.1.498738.3.579. 2.462 Unknown [id number] 2.840.1.830147.3.579. 2.462 Unknown [id number] 2.840.1.199837.3.579. 2.462 Unknown [id number] 2.840.1.711338.3.579. 2.462 Unknown [id number] 2.840.1.245869.3.579. 2.462 Unknown [id number] 2.840.1.105429.3.579. 2.462 Unknown [id number] 2.840.1.789111.3.579. 2.462 Unknown [id number] 2.16.840.1.280762.3.579. 2.462 Unknown [id number] 2.16.840.1.515216.3.579. 2.462 Unknown [id number] 2.16.840.1.030981.3.579. 2.462 Unknown [id number] 2.16.840.1.832958.3.579. 2.462 Unknown [id number] 2.16.840.1.156727.3.579. 2.462 Unknown [id number] 2.16.840.1.505598.3.579. 2.462 Unknown [id number] 2.16.840.1.384991.3.579. 2.462 Unknown [id number] 2.16.840.1.942339.3.579. 2.462 Unknown [id number] 2.16.840.1.568509.3.579. 2.462 Social History Date Type Detail Facility Start: 06-30-2021 End: 05-03-2025 Never smoked tobacco (finding) [facility] Start: 1945 Sex Assigned At Female A [facility] Start: 07-28-2023 End: 09-04-2023 Tobacco smoking status NHIS Unknown if ever smoked [facility] Sexual Orientation [facility] Start: 03-19-2019 End: 01-19-2025 Sex Female (finding) [facility] Start: 1945 Sex assigned at Not on file S [facility] Gender identity Not on file [facility] Health Goals Date Patient Goal Desired Activity /State Functional Status Date Assessment Result Facility 01-13-2025 Functional status Activity Abili ty With Assist of 2 [facility] Work Phone: 01-12-2025 Functional status Back to bed;Stand and p ivot [facility] Work Phone: 01-11-2025 Functional status Tolerates Activity Well [facility] Work Phone: 12-11-2024 Functional status Ambulates [facility] Work Phone: 09-02-2023 Functional Status Independent Farnaz [facility] 08-14-2023 Functional status Up ad laura [facility] Work Phone: 07-31-2023 Functional status Ambulates [facility] Work Phone: 07-27-2023 Functional Status Standard Safet y ID band on, Call device within reach, Bed in low position, Wheels locked, Upper/Half-Length side-rails up, Bedside Cart Locked, Safety level maintained [facility] 12-09-2021 Functional Status [facility] Mental Status Date Assessment Result Facility 01-13-2025 Cognitive function Voice/Name [facility] Work Phone: 12-11-2024 Cognitive function Voice/Name [facility] Work Phone: 09-02-2023 Mental Status Orientation Oriented x 4 [facility] 09-02-2023 Mental Status [facility] 08-14-2023 Cognitive function Voice/Name [facility] Work Phone: 08-08-2023 Cognitive function Appropriate;Cooperativ e [facility] Work Phone: 07-31-2023 Cognitive function Voice/Name [facility] Work Phone: 07-27-2023 Mental Status Orientation Oriented x 4 [facility] Clinical Notes 08-23-2022 to 05-19-2025 Telephone Encounter - Maycol Staley RN - 05/19/2025 8:27 AM EDTTelephone Encounter - Maycol Staley RN - 05/19/2025 8:27 AM EDTTelephone Encounter - RomeroDORIS Lee CNP - 05/19/2025 7:35 AM EDT Note Date & Type Note Facility 05-19-2025 Telephone encounter Note Faxed cath order to [facility] for pt. [facility] 05-19-2025 Miscellaneous Notes Faxed cath order to [facility] for pt. Okay to provide standard letter. Changes every 4-6 weeks. Irrigation daily and as needed. The flushing should be done using the aspiration technique to actually remove the sediment. If patient tolerates, they could try a 20 barbadian to help with sediment. Diagnosis: Neurogenic bladder: N31.9 Name of caller: Laura ROMAIN Contact phone number: [phone] Relationship to Patient: [facility] Provider: Dr Georges Practice: Urology Chief Complaint/Reason for Call: Laura from [facility] called to request orders for Catheter. They have been frequently changing cath approximately 5-7 times a month. She now has a 18 barbadian with irrigation daily. Pt still has leaking [...] their call: Yes documented in this encounter [facility] 05-19-2025 Telephone encounter Note Okay to provide standard letter. Changes every 4-6 weeks. Irrigation daily and as needed. The flushing should be done using the aspiration technique to actually remove the sediment. If patient tolerates, they could try a 20 barbadian to help with sediment. Diagnosis: Neurogenic bladder: N31.[address] [facility] [employer] Work Phone: 05-18-2025 Telephone encounter Note Name of caller: Laura ROMAIN Contact phone number: [phone] Relationship to Patient: [facility] Provider: Dr Georges Practice: Urology Chief Complaint/Reason for Call: Laura from [facility] called to request orders for Catheter. They have been frequently changing cath approximately 5-7 times a month. She now has a 18 barbadian with irrigation daily. Pt still has leaking [...] business hours to return their call: Yes [facility] 05-04-2025 Telephone encounter Note Call placed to facility . Pt returned to facility with catheter in place from 03/02 appointment . NGB diagnosis provided to facility for justification of catheter [facility] 05-04-2025 Miscellaneous Notes Call placed to facility . Pt returned to facility with catheter in place from 03/02 appointment . NGB diagnosis provided to facility for justification of catheter Name of caller: Amie HOYOS Contact phone number: [phone] Relationship to Patient: [facility] Provider: Dr Georges Practice: Urology Chief Complaint/Reason for Call: Amie HOYOS from [facility] is still in need of Dx for catheter placement for pt. This is a medicare/medicaid facility and Dx of neurogenic or obstructive, reflux, neopathy bladder is required. Please call or fax [phone] to advise of Dx for catheter placement. Best time of day caller can be reached: Any Patient advised that office/PCP has 24-48 business hours to return their call: Yes Name of caller: Amie Contact phone number: [phone] Relationship to Patient: [facility] Provider: Dr. Georges Practice: Urology Chief Complaint/Reason for Call: Amie called advising for a diagnose for the catheter patient has in so they can noted on their end for the reason. Please call Amie back and advise. Best time of day caller can be reached: any Patient advised that office/PCP has 24-48 business hours to return their call: N/A documented in this encounter [facility] 05-04-2025 Telephone encounter Note Name of caller: Amie HOYOS Contact phone number: [phone] Relationship to Patient: [facility] Provider: Dr Georges Practice: Urology Chief Complaint/Reason for Call: Amie HOYOS from [facility] is still in need of Dx for catheter placement for pt. This is a medicare/medicaid facility and Dx of neurogenic or obstructive, reflux, neopathy bladder is required. Please call or fax [phone] to advise of Dx for catheter placement. Best time of day caller can be reached: Any Patient advised that office/PCP has 24-48 business hours to return their call: Yes [facility] 05-03-2025 Radiology Diagnostic study note [facility] Imaging Services [address] [place], [place] [address] Hand Min 3 Views MR#: [id number] Acct: [id number] Name: JERO LEWIS Rep #: [id number] : 1945 F 79 From: Annelise Diaz MD PCP: Dr. Argelia Darby DO Status: REG ER Study:Hand Min 3 Views Date of Exam: 07/18 Exam# [id number] Ordering Dr: Gi Herrera DO PROCEDURE: HAND MIN 3 VIEWS 05/03/2025 REASON FOR EXAM: INJURY TECHNIQUE: HAND MIN 3 VIEWS Laterality: Left COMPARISON: None. FINDINGS: Bones: Diffuse osseous demineralization. No obvious acute fracture. No aggressive osseous lesions. Joints: Normal alignment. Moderate-severe degenerative changes. Soft tissues: Soft tissues are unremarkable. RAD/Hand Min 3 Views IMPRESSION: DEGENERATIVE OSTEOARTHROSIS. NO ACUTE FINDINGS. Reading Location: [facility] CC: Dr. Argelia Darby DO; Dr. Adolph Herrera DO ~ Burning Machine Operator: Signed [facility] 05-03-2025 Radiology Diagnostic study note [facility] Imaging Services [address] [place], [place] [address] CT Chest, Abd, Pelvis WO Cont MR#: [id number] Acct: [id number] Name: JERO LEWIS Rep #: [id number] : 1945 F 79 From: Annelise Diaz MD PCP: Dr. Argelia Darby DO Status: REG ER Study:CT Chest, Abd, Pelvis WO Cont Date of E xam: 05/03/25 Exam# [id number] Ordering Dr: Gi Herrera DO PROCEDURE: CT [...] at 7:05 p.m. on 05/03/2025. Reading Location: [id number] CC: Dr. Argelia Darby DO; Dr. Adolph Herrera DO ~ Burning Machine Operator: Signed [facility] 05-03-2025 Radiology Diagnostic study note [facility] Imaging Services [address] [place] [place], [place] [id number] Spine Cervical without Contras MR#: [id number] Acct: [id number] Name: JERO LEWIS Rep #: [id number] : 1945 F 79 From: Annelise Diaz MD PCP: Dr. Argelia Darby DO Status: REG ER Study:Spine Cervical without Contras Date of Exam: 05/03/25 Exam# [id number] Ordering Dr: Gi Herrera DO PROCEDURE: SPINE [...] ACUTE CERVICAL FRACTURE. DEGENERATIVE CHANGES. Reading Location: [facility] CC: Dr. Argelia Darby DO; Dr. Adolph Herrera DO ~ Burning Machine Operator: Signed [facility] 05-03-2025 Radiology Diagnostic study note [facility] Imaging Services [address] [place] [address] Brain/Head without Contrast MR#: [id number] Acct: [id number] Name: JERO LEWIS Rep #: [id number] : 1945 F 79 From: Annelise Diaz MD PCP: Dr. Argelia Darby DO Status: REG ER Study:Brain/Head without Contrast Date of Exa m: 05/03/25 Exam# [id number] Ordering Dr: Gi Herrera DO EXAM: BRAIN/HEAD [...] finding. Chronic findings as described. Reading Location: [id number] CC: Dr. Argelia Darby, DO; Dr. Adolph Herrera DO ~ Burning Machine Operator: Signed [facility] 04-21-2025 Telephone encounter Note Name of caller: Amie Contact phone number: [phone] Relationship to Patient: [facility] Provider: Dr. Georges Practice: Urology Chief Complaint/Reason for Call: Amie called advising for a diagnose for the catheter patient has in so they can noted on their end for the reason. Please call Amie back and advise. Best time of day caller can be reached: any Patient advised that office/PCP has 24-48 business hours to return their call: N/A [facility] [employer] 03-02-2025 History of Presen t illness Narrative [...] history on file. documented in this encounter [facility] 03-02-2025 Note Cystoscopy Procedure Note Pre-operative Diagnosis: [...] well Plan: See E&M Artur Georges M.D. [facility] 01-27-2025 Telephone encounter Note Pt scheduled for cysto with Dr. Georges on 03/02 at 9:20am. This is the earliest facility can bring the patient in for appt as Pt under usp . Ayala aware someone has to come in with patient if transfer/ambulation help needed. [facility] 01-27-2025 Miscellaneous Notes Pt scheduled for cysto with Dr. Georges on 03/02 at 9:20am. This is the earliest facility can bring the patient in for appt as Pt under usp . Ayala aware someone has to come [...] next couple of weeks. Ayala with [facility] left a VM in regards to [...] performed and recommended. documented in this encounter [facility] [employer] 01-26-2025 Telephone encounter Note Message released to patient as written. Patient's further questions if applicable: message was released to Ayala and she would like to schedule cystoscopy Were all questions from office addressed or relayed to the patient from encounter: Yes [facility] 01-26-2025 Miscellaneous Notes Message released to patient as written. Patient's further questions if applicable: message was released to Ayala and she would like to schedule cystoscopy Were all questions from office addressed or relayed to the patient from encounter: Yes Keep gill and needs follow up for cystoscopy in the next couple of weeks. Ayala with [facility] left a VM in regards to [...] performed and recommended. documented in this encounter [facility] 01-23-2025 Telephone encounter Note Keep gill and needs follow up for cystoscopy in the next couple of weeks. [facility] [employer] Work Phone: 01-23-2025 Telephone encounter Note Ayala with [facility] left a VM in regards to [...] this is something still performed and recommended. [facility] 01-22-2025 History of Presen t illness Narrative . Urology Office Visit [facility] [address], [address] [facility] [address] Visit type: New Patient Reason for Visit: [...] for follow up after hospital admission at [facility] after falling and injuring her left [...] 100 cc immediately documented in this encounter [facility] 01-19-2025 Telephone encounter Note Returned the call to alf. Spoke with nurse Gorman. Will send fax documents of pt history and discharge information from [facility]. Scheduled new patient appt 01/22/25 10:00 AM sarah/Rosita for *hosp follow up [facility]/urinary retention/gill removal/voiding trial* Per Vita the patient failed one VT while in hospital unclear of date possibly 01/13/25. [facility] 01-19-2025 Miscellaneous Notes Returned the call to alf. Spoke with nurse Vita. Will send fax documents of pt history and discharge information from [facility]. Scheduled new patient appt 01/22/25 10:00 AM w/Rosita for *hosp follow up [facility]/urinary retention/gill removal/voiding trial* Per Vita the patient failed one VT while in hospital unclear of date possibly 01/13/25. Name of Caller: Obi Contact Reason for Appointment: Obi called in to get patient established for urinary retention and not being able to remove gill. Please be advised Office Name: [facility] documented in this encounter [facility] 01-19-2025 Telephone encounter Note Name of Caller: Obi Contact Reason for Appointment: Obi called in to get patient established for urinary retention and not being able to remove gill. Please be advised Office Name: [facility] 01-12-2025 Note [facility] 12-11-2024 Note [facility] 12-11-2024 Evaluation note Diagnosis Onset Date Resolution Allergic rhinitis acute November 232024 4:17pm BPPV (benign paroxysmal positional vertigo) acute December 11, 2024 4:17pm Debility acute December 11 4:17pm Depression acute December 11 4:17pm Essential (primary) hypertension acute December 11, 2024 4:17pm Hyponatremia acute December 11, 2024 4:17pm Hypothyroidism acute November 4:17pm Orthostatic hypotension acute M 2024 4:17pm Osteoarthritis acute November 4:17pm CAD (coronary artery disease) chronic December 11, 2024 4:17pm Hyperlipidemia chronic November 4:17pm Closed fracture of left patella inactive December 11, 2024 4:17pm Elevated troponin inactive November 232024 4:17pm Syncope inactive December 11 4:17pm [facility] Work Phone: 1(374) 890-700303-20-2025 Discharge summary Author Donovan Cano [facility] Note Date/Time December 11, 2024 11: 52am [facility] Medical Records Department [address] [place] [address] Discharge Summary 12/11/24 0948 MR#: [id number] Acct: [id number] Name: JERO LEWIS Rep #:[id number] : 1945 79 From: Donovan buchanan DO PCP: Dr. Argelia Darby DO Status:ADM IN Location: [place] [id number]- Providers Date of Admission: 12/06/24 Date of [...] weeks. calcium 600 mg-D3 800 unit-mag 40 ll-mhpb-bhab-joseph-boron chew tablet (Caltrate 600-D Plus Minerals) 1 [...] Patient is an 79-year-old female who presented [facility] ED on 12/06/2024 with left knee [...] history of recurrent syncope and follows with [facility] in the office. Notably had recent [...] 79.8 H, Lymph % (Auto) 9.1 L, [place] % (Auto) 8.5, Eos % (Auto) 1.5, [...] as she is being put on PO [id number] bid x 2 weeks for DVT prophylaxis. [...] in before D/C Order can be placed): [facility] Facility Charges/Coding Visit Charges Inpatient E&M: 44631 Disch Hosp >30min 12/11/24 1104 <Electronically signed [...] DO; Dr. Argelia Darby DO ~* Signed [facility] Work Phone: 1(969) 560-664703-20-2025 Consult note Author Marisa Najera [facility] Note Date/Time December 11, 2024 11: 44[facility] Medical Records Department [facility] [place] [address] Counseling Note - Pharmacy 12/11/24 1144 MR#: [id number] Acct: [id number] Name: JERO LEWIS Rep #:[id number] : 1945 79 From: Marisa Najera PCP: Dr. Argelia Dabry DO Status:ADM IN Y Location: [place] [address] Pharmacy [place] [facility] Recon[facility] Pharmacy Service has [...] weeks. calcium 600 mg-D3 800 unit-mag 40 yn-qfxl-ixrx-joseph-boron chew tablet (Caltrate 600-D Plus Minerals) 1 [...] Signature (if applicable): Date CC: ~ Signed [facility] Work Phone: 1(434) 140-304703-20-2025 Discharge summary Author Donovan Cano [facility] Note Date/Time December 11, 2024 11: 02am [facility] Medical Records Department [address] [place] [address] Transfer to Extended [facility] MR#: [id number] Acct: [id number] Name: JERO LEWIS Rep #:[id number] : 1945 79 From: Donovan buchanan DO PCP: Dr. Argelia Darby DO Status:ADM IN Certification of patient admission REQUIRED AT TIME OF ADMISSION. I CERTIFY THAT POST-HOSPITAL ECF SERVICES ARE REQUIRED TO BE GIVEN ON AN IN-PATIENT BASIS BECAUSE OF THE ABOVE NAMED PATIENT'S NEED FOR JAIL CARE ON A CONTINUING BASIS FOR THE [...] Patient is an 79-year-old female who presented [facility] ED on 12/06/2024 with left knee [...] history of recurrent syncope and follows with [facility] in the office. Notably had recent [...] as she is being put on PO [id number] bid x 2 weeks for DVT prophylaxis. [...] in before D/C Order can be placed): Penitentiary Facility (2) Syncope Qualifiers: Syncope type: unspecified Qualified Code(s): R55 - Syncope and collapse 12/11/24 1102 <Electronically signed by Donovan Cano DO> Cosigner Signature (if applicable): CC: [facility] - ATTN: DANIELLE COKER; Dr. Sandro Jackman MD; Dr. De Snowden MD; Dr. Argelia Darby DO; Dr. Michelle Dang MD; Dr. Montse Cabrera MD~ [facility] Work Phone: 1(284) 739-401103-20-2025 Discharge summary [facility] Medical Records Department [address] [place] [address] Discharge Summary 12/11/24 0948 MR#: [id number] Acct: [id number] Name: JERO LEWIS Rep #:[id number] : 1945 79 From: Donovan buchanan DO PCP: Dr. Argelia Darby DO Status:[facility]M [facility] Providers Date of Admission: 12/06/24 [...] weeks. calcium 600 mg-D3 800 unit-mag 40 au-enug-hxov-joseph-boron chew tablet (Caltrate 600-D Plus Minerals) 1 [...] Patient is an 79-year-old female who presented [facility] ED on 12/06/2024 with leftknee pain [...] history of recurrent syncope and follows with [facility] in the office. Notably had recent [...] 79.8 H, Lymph % (Auto) 9.1 L, [place] % (Auto) 8.5, Eos % (Auto) 1.5, [...] as she is being put on PO [id number] bid x 2 weeks forDVT prophylaxis. To [...] in before D/C Order can be placed): Penitentiary Facility Charges/Coding Visit Charges Inpatient E&M: 96187 Disch Hosp >30min 12/11/24 1104 Cosigner Signature [...] DO; Dr. Argelia Darby DO ~* Signed [facility]03-20-2025 Consult note [facility] Medical Records Department [address] [place] [address] Counseling Note - Pharmacy 12/11/24 1144 MR#: [id number] Acct: [id number] Name: JERO LEWIS Rep #:[id number] : 1945 79 From: Marisa Najera PCP: Dr. Argelia Darby DO Status:ADM IN Y Location: [place] [address] [place]acy [place] [facility] Recon[place] Pharm[facility] Service has [...] weeks. calcium 600 mg-D3 800 unit-mag 40 bp-skrr-byyo-joseph-boron chew tablet (Caltrate 600-D Plus Minerals) 1 [...] 12/11/24 12/11/24 1144 > Date _ Marisa Lauren Signature (if applicable): Date CC: ~ Signed [facility]03-20-2025 Discharge summary [facility] Medical Records Department [address] [place] [address] [facility] MR#: [id number] Acct: [id number] Name: JERO LEWIS Rep #:[id number] : 1945 79 From: Donovan buchanan DO PCP: Dr. Argelia Darby, DO Status:ADM IN Certification of patient admission REQUIRED AT TIME OF ADMISSION. I CERTIFY THAT POST-HOSPITAL ECF SERVICES ARE REQUIRED TO BE GIVEN ON AN IN-PATIENT BASIS BECAUSE OF THE ABOVE NAMED PATIENT'S NEED FOR JAIL CARE ON A CONTINUING BASIS FOR THE CONDITION(S) FOR WHICH HE/SHE WAS RECEIVING IN-PATIENT HOSPITAL SERVICES PRIOR TO HIS/HER TRANSFER TO THE [facility]. 12/11/24 1102 Diet Diet Order/Speech Therapy: [...] Patient is an 79-year-old female who presented [facility] ED on 12/06/2024 with leftknee pain [...] history of recurrent syncope and follows with [facility] in the office. Notably had recent [...] as she is being put on PO [id number] bid x 2 weeks forDVT prophylaxis. To [...] in before D/C Order can be placed): [facility]iary Facility (2) Syncope Qualifiers: Syncope type: unspecified Qualified Code(s): R55 - Syncope and collapse 12/11/24 1102 Cosigner Signature (if applicable): CC: [facility] - ATTN: DANIELLE COKER; Dr. Sandro Jackman MD; Dr. De Snowden MD; Dr. Argelia Darby DO; Dr. Michelle Dang MD; Dr. Montse Cabrera MD~ [facility]03-20-2025 [facility]03-19-2025 Progress note Author [facility]se [facility] Note Date/Time December 10, 2024 4:[address] [facility] Medical Records Department [address] [place] [address] Progress Note 12/10/24 1627 MR#: [id number] Acct: [id number] Name: JERO LEWIS Rep #:[id number] : 1945 79 From: Montse Cabrera MD PCP: Dr. Argelia Darby DO Status:ADM IN Location: [place] [address] Subjective Subjective Patient seen and examined. She [...] Total 1500 / 1900 2323.33 / 2323.33 1980. / 1980. Output Total 600 / 850 350 / [...] 76.0 H, Lymph % (Auto) 12.7 L, [place] % (Auto) 8.1, Eos % (Auto) 2.5, [...] which showed nonsustained vtach * followed with [facility] on outpatient basis * cardiology consulted; [...] no intubation. Charges/Coding Visit Charges Inpatient E&M: 53463 Subs Hosp L2 12/10/24 1637 <Electronically signed by Montse Cabrera MD> Montse Cabrera MD Cosigner Signature (if applicable): CC: ~ Signed [facility] Work Phone: 1(409) 171-944203-19-2025 Progress note [facility] Medical Records Department [address] [place] [address] Progress Note 12/10/24 1627 MR#: [id number] Acct: [id number] Name: JERO LEWIS E Rep #:[id number] : 1945 79 From: Montse Cabrera MD PCP: Dr. Argelia Darby, DO Status:ADM IN Location: [place] [address] Subjective Subjective Patient seen and examined. She [...] Total 1500 / 1900 2323.33 / 2323.33 1980.25 / 1980. Output Total 600 / 850 350 / [...] 76.0 H, Lymph % (Auto) 12.7 L, [place] % (Auto) 8.1, Eos % (Auto) 2.5, [...] which showed nonsustained vtach * followed with [facility] on outpatient basis * cardiology consulted; [...] no intubation. Charges/Coding Visit Charges Inpatient E&M: 71866 Subs Hosp L2 12/10/24 3271 Montse Cabrera MD Cosigner Signature (if applicable): CC: ~ Signed [facility]03-19-2025 Progress note Author Madhavi Pate [facility] Note Date/Time December 10, 2024 12: 42am [facility] Medical Records Department [address] [facility] [place] [address] Progress Note - Hospitalist 12/10/24 004 MR#: [id number] Acct: [id number] Name: JERO LEWIS Rep #:[id number] : 1945 79 From: Madhavi Pate MD PCP: Dr. Argelia Darby, DO Status:ADM IN Location: [place] [address] Hospitalist Note Called with repeat labs with [...] Cosigner Signature (if applicable): CC: ~ Signed [facility] Work Phone: 1(165) 420-161803-19-2025 Progress note [facility] Medical Records Department [address] [facility] [place] [address] Progress Note - Hospitalist 12/10/24 004 MR#: [id number] Acct: [id number] Name: JERO LEWIS Rep #:[id number] : 1945 79 From: Madhavi Pate MD PCP: Dr. Argelia Darby, DO Status:ADM IN Location: [place] [address] Hospitalist Note Called with repeat labs with [...] to nephrology for change. Continue BMP trending 12/10/24 0042 Cosigner Signature (if applicable): CC: ~ Signed [facility]03-18-2025 Progress note Author Montse Cabrera [facility] Note Date/Time December 09, 2024 6:5 7pm [facility] Medical Records Department [address] [place] [address] Progress Note 12/09/24 1854 MR#: [id number] Acct: [id number] Name: JERO LEWIS Rep #:[id number] : 1945 79 From: Montse Cabrera MD PCP: Dr. Argelia Darby, DO Status:ADM IN Location: [place] [id number]- [id number] Subjective Subjective Patient seen and examined. She [...] which showed nonsustained vtach * followed with [facility] on outpatient basis * cardiology consulted; [...] no intubation. Charges/Coding Visit Charges Inpatient E&M: 38501 Subs Hosp L2 12/09/241856 <Electronically signed by Montse Cabrera MD> Montse Cabrera MD Cosigner Signature (if applicable): CC: ~ Signed [facility] Work Phone: 1(270) 708-782803-18-2025 Progress note [facility] Medical Records Department [address] [place] [address] Progress Note 12/09/241853 MR#: [id number] Acct: [id number] Name: JERO LEWIS Rep #:[id number] : 1945 79 From: Montse Cabrera MD PCP: Dr. Argelia Darby, DO Status:ADM IN Location: [place] [address] Subjective Subjective Patient seen and examined. She [...] which showed nonsustained vtach * followed with [facility] on outpatient basis * cardiology consulted; [...] no intubation. Charges/Coding Visit Charges Inpatient E&M: 21136 Subs Hosp L2 12/09/24 2553 Montse Cabrera MD Cosigner Signature (if applicable): CC: ~ Signed [facility]03-18-2025 Consult note Author Shawna Carranza [facility] Note Date/Time December 09, 2024 4:1 8pm [facility] Medical Records Department [address] [place] [address] Counseling Note - Pharmacy 12/09/24 1618 MR#: [id number] Acct: [id number] Name: JERO LEWIS Rep #:[id number] : 1945 79 From: Shawna Carranza PCP: Dr. Argelia Darby, DO Status:ADM IN Y Location: [place] [address] [place] [facility] has [...] weeks. calcium 600 mg-D3 800 unit-mag 40 so-qbyg-skqg-joseph-boron chew tablet (Caltrate 600-D Plus Minerals) 1 [...] Signature (if applicable): Date CC: ~ Signed [facility] Work Phone: 1(324) 434-908803-18-2025 Consult note [facility] Medical Records Department [address] [place] [address] Counseling Note - Pharmacy 12/09/24 1618 MR#: [id number] Acct: [id number] Name: JERO LEWIS Rep #:[id number] : 1945 79 From: Shawna Carranza PCP: Dr. Argelia Darby, DO Status:ADM IN Y Location: [place] [address] [place] [facility] has [...] weeks. calcium 600 mg-D3 800 unit-mag 40 rv-nuus-ukxv-joseph-boron chew tablet (Caltrate 600-D Plus Minerals) 1 [...] Signature (if applicable): Date CC: ~ Signed [facility]03-18-2025 Discharge summary Author Montse Cabrera [facility] Note Date/Time December 09, 2024 2:[address] [facility] Medical Records Department [address] [place] [address] Discharge Summary 12/09/24 1317 MR#: [id number] Acct: [id number] Name: JERO LEWIS Rep #:[id number] : 1945 79 From: Montse Cabrera MD PCP: Dr. Argelia Darby DO Status:ADM IN Location: [place] [address] Providers Date of Admission: 12/06/24 Date of [...] which showed nonsustained vtach * followed with [facility] on outpatient basis * cardiology consulted; [...] weeks. calcium 600 mg-D3 800 unit-mag 40 pz-odro-syec-joseph-boron chew tablet (Caltrate 600-D Plus Minerals) 1 [...] needing skilled evaluation. [facility] She is follow-up with [...] as she is being put on PO [id number] bid x 2 weeks for DVT prophylaxis. [...] in before D/C Order can be placed): [facility] Facility Charges/Coding Visit Charges Inpatient E&M: 61344 Disch Hosp >30min 12/09/24 1418 <Electronically signed by Montse Cabrera MD> Cosigner Signature (if applicable): CC: Dr. Argelia Darby DO; Dr. Montse Cabrera MD~ Signed [facility] Work Phone: 1([phone]) 611-363503-18-2025 Discharge summary Author [facility] Note Date/Time December 09, 2024 1:1 7pm [facility] Medical Records Department [address] [place] [address] [facility] MR#: [id number] Acct: [id number] Name: JERO LEWIS Rep #:[id number] : 1945 79 From: Montse Cabrera MD PCP: Dr. Argelia Darby DO Status:ADM IN Certification of patient admission REQUIRED AT TIME OF ADMISSION. I CERTIFY THAT POST-HOSPITAL ECF SERVICES ARE REQUIRED TO BE GIVEN ON AN IN-PATIENT BASIS BECAUSE OF THE ABOVE NAMED PATIENT'S NEED FOR JAIL CARE ON A CONTINUING BASIS FOR THE CONDITION(S) FOR WHICH HE/SHE WAS RECEIVING IN-PATIENT HOSPITAL SERVICES PRIOR TO HIS/HER TRANSFER TO THE [facility]CF. 12/09/24 1317<Electronically signed by Montse Cabrera MD> [...] which showed nonsustained vtach * followed with [facility] on outpatient basis * cardiology consulted; [...] in before D/C Order can be placed): [facility] Facility Charges/Coding Visit Charges Inpatient E&M: 15354 Disch Hosp >30min (2) Syncope Qualifiers: Syncope type: unspecified Qualified Code(s): R55 - Syncope and collapse 12/09/24 1317 <Electronically signed by Montse Cabrera MD> Cosigner Signature (if applicable): CC: [facility] - ATTN: DANIELLE COKER; Dr. Sandro Jackman MD; Dr. Argelia Darby DO; Dr. Michelle Dang MD ~ [facility] Work Phone: 1([phone]) 602-760203-18-2025 Discharge summary [facility] Medical Records Department [address] [place] [address] Discharge Summary 12/09/24 1317 MR#: [id number] Acct: [id number] Name: JERO LEWIS Rep #:[id number] : 1945 79 From: Montse Cabrera MD PCP: Dr. Argelia Darby, DO Status:ADM IN Location: [place] [id number]- Providers Date of Admission: 12/06/24 Date of [...] which showed nonsustained vtach * followed with [facility] on outpatient basis * cardiology consulted; [...] weeks. calcium 600 mg-D3 800 unit-mag 40 eb-cscy-gqkm-joseph-boron chew tablet (Caltrate 600-D Plus Minerals) 1 [...] needing skilled evaluation. [facility]. She is follow-up with [...] as she is being put on PO [id number] bid x 2 weeks forDVT prophylaxis. To [...] in before D/C Order can be placed): [facility] Facility Charges/Coding Visit Charges Inpatient E&M: 39179 Disch Hosp >30min 12/09/24 1418 Cosigner Signature (if applicable): CC: Dr. Argelia Darby DO; Dr. Montse Cabrera MD~ Signed [facility]03-18-2025 Discharge summary [facility] Medical Records Department [address] [place] [address] Transfer to [facility] MR#: [id number] Acct: [id number] Name: JERO LEWIS Rep #:[id number] : 1945 79 From: Montse Cabrera MD PCP: Dr. Argelia Darby DO Status:ADM IN Certification of patient admission REQUIRED AT TIME OF ADMISSION. I CERTIFY THAT POST-HOSPITAL ECF SERVICES ARE REQUIRED TO BE GIVEN ON AN IN-PATIENT BASIS BECAUSE OF THE ABOVE NAMED PATIENT'S NEED FOR JAIL CARE ON A CONTINUING BASIS FOR THE CONDITION(S) FOR WHICH HE/SHE WAS RECEIVING IN-PATIENT HOSPITAL SERVICES PRIOR TO HIS/HER TRANSFER TO THE [facility]. 12/09/24 1317 Diet Diet Order/Speech Therapy: 12/06/24 [...] which showed nonsustained vtach * followed with [facility] on outpatient basis * cardiology consulted; [...] in before D/C Order can be placed): [facility] Facility Charges/Coding Visit Charges Inpatient E&M: 56213 Disch Hosp >30min (2) Syncope Qualifiers: Syncope type: unspecified Qualified Code(s): R55 - Syncope and collapse 12/09/24 1317 Cosigner Signature (if applicable): CC: [facility] - ATTN: DANIELLE COKER; Dr. Sandro Jackman MD; Dr. Argelia aDrby DO; Dr. Michelle Dang MD ~ [facility]03-18-2025 [facility]03-17-2025 Progress note Author [facility] Note Date/Time December 08, 2024 4:1 1pm [facility] Medical Records Department [address] [place] [address] Progress Note 12/08/24 1149 MR#: [id number] Acct: [id number] Name: JERO LEWIS Rep #:[id number] : 1945 79 From: Montse Cabrera MD PCP: Dr. Argelia Wilner, DO Status:ADM IN Location: [facility] [id number]- 1 Subjective Subjective Patient seen and examined. [...] 79.7 H, Lymph % (Auto) 11.2 L, [place] % (Auto) 7.2, Eos % (Auto) 1.4, [...] which showed nonsustained vtach * followed with [facility] on outpatient basis * cardiology consulted; [...] no intubation. Charges/Coding Visit Charges Inpatient E&M: 85576 Subs Hosp L2 12/08/24 1611 <Electronically signed by Montse Cabrera MD> Montse aCbrera MD Cosigner Signature (if applicable): CC: ~ Signed [facility] Work Phone: 1([phone] Progress note [facility] Medical Records Department [address] [place] [address] Progress Note 12/08/24 1149 MR#: [id number] Acct: [id number] Name: JERO LEWIS Rep #:[id number] : 1945 79 From: Montse Cabrera MD PCP: Dr. Argelia Darby, DO Status:ADM IN Location: [place] [address] Subjective Subjective Patient seen and examined. Pain [...] 79.7 H, Lymph % (Auto) 11.2 L, [place] % (Auto) 7.2, Eos % (Auto) 1.4, [...] which showed nonsustained vtach * followed with [facility] on outpatient basis * cardiology consulted; [...] no intubation. Charges/Coding Visit Charges Inpatient E&M: 47129 Subs Hosp L2 12/08/24 1611 Montse Cabrera MD Cosigner Signature (if applicable): CC: ~ Signed [facility]03-17-2025 Progress note Author Michelle Dang [facility] Note Date/Time December 08, 2024 1:[address] [facility] Medical Records Department [address] [place] [address] Progress Note - Cardiology 12/08/24 1326 MR#: [id number] Acct: [id number] Name: JERO LEWIS Rep #:[id number] : 1945 79 From: Michelle harrell MD PCP: Dr. Argelia Darby, DO Status:ADM IN Location: [place] [id number]- 1 Subjective Subjective Patient's dizziness is better [...] 79.7 H, Lymph % (Auto) 11.2 L, [place] % (Auto) 7.2, Eos % (Auto) 1.4, [...] 79.7 H, Lymph % (Auto) 11.2 L, [place] % (Auto) 7.2, Eos % (Auto) 1.4, [...] Cosigner Signature (if applicable): CC: ~ Signed [facility] Work Phone: 1(373) 741-761903-17-2025 Progress note [facility] Medical Records Department [address] [place] [address] Progress Note - Cardiology 12/08/24 1326 MR#: [id number] Acct: [id number] Name: JERO LEWIS Rep #:[id number] : 1945 79 From: Michelle harrell MD PCP: Dr. Argelia Darby, DO Status:ADM IN Location: [place] [address] Subjective Subjective Patient's dizziness is better after [...] 79.7 H, Lymph % (Auto) 11.2 L, [place] % (Auto) 7.2, Eos % (Auto) 1.4, [...] 79.7 H, Lymph % (Auto) 11.2 L, [place] % (Auto) 7.2, Eos % (Auto) 1.4, [...] Cosigner Signature (if applicable): CC: ~ Signed [facility]03-16-2025 Progress note Author Montseannmarie Cabrera [facility] Note Date/Time December 07, 2024 2:0 0pm [facility] Medical Records Department [address] [facility] [place] [address] Progress Note 12/07/241336 MR#: [id number] Acct: [id number] Name: JERO LEWIS Rep #:[id number] : 1945 79 From: Montse Cabrera MD PCP: Dr. Argelia Darby, DO Status:ADM IN Location: [place] [address] Subjective Subjective Patient seen and examined. Her [...] 85.3 H, Lymph % (Auto) 8.6 L, [place] % (Auto) 4.0, Eos % (Auto) 1.3, [...] 77.5 H, Lymph % (Auto) 13.1 L, [place] % (Auto) 8.3, Eos % (Auto) 0.4, [...] acute intracranial abnormality. Senescent changes. Reading Location: [facility] Cervical Spine CT 12/06/24 16:41 IMPRESSION: No evidence of acute cervical spine fracture. Demineralization does limit sensitivity One or more dose reduction techniques were used (e.g., Automated exposure control, adjustment of the mA and/or kV according to patient size, use of iterative reconstruction technique). Reading Location: [facility] Facial/Sinus 12/06/24 16:41 IMPRESSION: No evidence of acute facial fracture. Senescent changes. One or more dose reduction techniques were used (e.g., Automated exposure control, adjustment of the mA and/or kV according to patient size, use of iterative reconstruction technique). Reading Location: [facility] Chest X-Ray 12/06/24 17:10 IMPRESSION: No acute findings. Senescent changes. Mild cardiac enlargement. Reading Location: [facility] Knee X-Ray 12/06/24 17:10 IMPRESSION: Acute patellar fracture on background demineralization. Reading Location: [facility] Rhythm Strip Rhythm Strip: Being [...] which showed nonsustained vtach * followed with [facility] on outpatient basis * cardiology consulted; [...] full code Charges/Coding Visit Charges Inpatient E&M: 62882 Subs Hosp L2 12/07/24 1400 <Electronically signed by Montse Cabrera MD> Montse Cabrera MD Cosigner Signature (if applicable): CC: ~ Signed [facility] Work Phone: 1(877) 272-817803-16-2025 Consult note Author Michelle Dang [facility] Note Date/Time December 07, 2024 1:1 7pm [facility] Medical Records Department [address] [facility] [place] [address] Consultation - Cardiology 12/07/24 1310 MR#: [id number] Acct: [id number] Name: JERO LEWIS Rep #:[id number] : 1945 79 From: Michelle harrell MD PCP: Dr. Argelia Darby, DO Status:ADM IN Location: [place] [address] Assessment & Plan Assessment/Plan (1) Elevated troponin: [...] breath etc. Her troponin is mildly elevated. [facility] Medical History Vertigo PVCs (premature ventricular contractions) SOB (shortness of breath) Sleep apnea Vitamin D deficiency RLS (restless legs syndrome) Pulmonary hypertension Myalgia MVP (mitral valve prolapse) Dizziness CAD (coronary artery disease) Vitamin B12 deficiency Fatigue Osteoarthritis Depression Debility [place] disease History of endometrial biopsy COVID-19 Chronic [...] 1 tab PO BID 3 12/06/24 History si-fdww-zths-joseph-boron chew tablet (Caltrate 600-D Plus Minerals) cyanocobalamin [...] (cerebral vascular accident) Father Kimberlee disease Son [place] disease Brother Heart disease Hypertension Daughter Lupus [...] Applicable: No Charges/Coding Visit Charges Inpatient E&M: 84525 Init Hosp L2 Objective Data Vital Signs: [...] 85.3 H, Lymph % (Auto) 8.6 L, [place] % (Auto) 4.0, Eos % (Auto) 1.3, [...] 77.5 H, Lymph % (Auto) 13.1 L, [place] % (Auto) 8.3, Eos % (Auto) 0.4, [...] 85.3 H, Lymph % (Auto) 8.6 L, [place] % (Auto) 4.0, Eos % (Auto) 1.3, [...] 77.5 H, Lymph % (Auto) 13.1 L, [place] % (Auto) 8.3, Eos % (Auto) 0.4, [...] acute intracranial abnormality. Senescent changes. Reading Location: [facility] Cervical Spine CT 12/06/24 16:41 IMPRESSION: No evidence of acute cervical spine fracture. Demineralization does limit sensitivity One or more dose reduction techniques were used (e.g., Automated exposure control, adjustment of the mA and/or kV according to patient size, use of iterative reconstruction technique). Reading Location: [facility] Facial/Sinus 12/06/24 16:41 IMPRESSION: No evidence of acute facial fracture. Senescent changes. One or more dose reduction techniques were used (e.g., Automated exposure control, adjustment of the mA and/or kV according to patient size, use of iterative reconstruction technique). Reading Location: [facility] Chest X-Ray 12/06/24 17:10 IMPRESSION: No acute findings. Senescent changes. Mild cardiac enlargement. Reading Location: [facility] Knee X-Ray 12/06/24 17:10 IMPRESSION: Acute patellar fracture on background demineralization. Reading Location: [facility] 12/07/24 1317 <Electronically signed by Michelle Dang MD> Cosigner Signature (if applicable): CC: Dr. Argelia Darby, DO~ Signed [facility] Work Phone: 1(544) 519-339303-16-2025 Progress note [facility] Medical Records Department [address] [place] [address] Progress Note 12/07/24 1337 MR#: [id number] Acct: [id number] Name: JERO LEWIS Rep #:[id number] : 1945 79 From: Montse Cabrera MD PCP: Dr. Argelia Darby, DO Status:ADM IN Location: [place] [address] Subjective Subjective Patient seen and examined. Her [...] 85.3 H, Lymph % (Auto) 8.6 L, [place] % (Auto) 4.0, Eos % (Auto) 1.3, [...] 77.5 H, Lymph % (Auto) 13.1 L, [place] % (Auto) 8.3, Eos % (Auto) 0.4, [...] acute intracranial abnormality. Senescent changes. Reading Location: [facility] Cervical Spine CT 12/06/24 16:41 IMPRESSION: No evidence of acute cervical spine fracture. Demineralization does limit sensitivity One or more dose reduction techniques were used (e.g., Automated exposure control, adjustment of the mA and/or kV according to patient size, use of iterative reconstruction technique). Reading Location: [facility] Facial/Sinus 12/06/24 16:41 IMPRESSION: No evidence of acute facial fracture. Senescent changes. One or more dose reduction techniques were used (e.g., Automated exposure control, adjustment of the mA and/or kV according to patient size, use of iterative reconstruction technique). Reading Location: [facility] Chest X-Ray 12/06/24 17:10 IMPRESSION: No acute findings. Senescent changes. Mild cardiac enlargement. Reading Location: [facility] Knee X-Ray 12/06/24 17:10 IMPRESSION: Acute patellar fracture on background demineralization. Reading Location: [facility] Rhythm Strip Rhythm Strip: Being [...] which showed nonsustained vtach * followed with [facility] on outpatient basis * cardiology consulted; [...] full code Charges/Coding Visit Charges Inpatient E&M: 97757 Subs Hosp L2 12/07/24 1400 Montse Cabrera MD Cosigner Signature (if applicable): CC: ~ Signed [facility]03-16-2025 Consult note [facility] Medical Records Department [address] [place] [address] Consultation - Cardiology 12/07/24 1310 MR#: [id number] Acct: [id number] Name: JERO LEWIS Rep #:[id number] : 1945 79 From: Michelle harrell MD PCP: Dr. Argelia Darby, DO Status:ADM IN Location: [place] [id number]- 1 Assessment & Plan Assessment/Plan (1) Elevated [...] breath etc. Her troponin is mildly elevated. [facility] Medical History Vertigo PVCs (premature ventricular contractions) SOB (shortness of breath) Sleep apnea Vitamin D deficiency RLS (restless legs syndrome) Pulmonary hypertension Myalgia MVP (mitral valve prolapse) Dizziness CAD (coronary artery disease) Vitamin B12 deficiency Fatigue Osteoarthritis Depression Debility [place] disease History of endometrial biopsy COVID-19 Chronic [...] 1 tab PO BID 3 12/06/24 History jo-kkdf-izpu-joseph-boron chew tablet (Caltrate 600-D Plus Minerals) cyanocobalamin [...] Applicable: No Charges/Coding Visit Charges Inpatient E&M: 64832 Init Hosp L2 Objective Data Vital Signs: [...] 85.3 H, Lymph % (Auto) 8.6 L, [place] % (Auto) 4.0, Eos % (Auto) 1.3, [...] 77.5 H, Lymph % (Auto) 13.1 L, [place] % (Auto) 8.3, Eos % (Auto) 0.4, [...] 85.3 H, Lymph % (Auto) 8.6 L, [place] % (Auto) 4.0, Eos % (Auto) 1.3, [...] 77.5 H, Lymph % (Auto) 13.1 L, [place] % (Auto) 8.3, Eos % (Auto) 0.4, [...] acute intracranial abnormality. Senescent changes. Reading Location: [facility] Cervical Spine CT 12/06/24 16:41 IMPRESSION: No evidence of acute cervical spine fracture. Demineralization does limit sensitivity One or more dose reduction techniques were used (e.g., Automated exposure control, adjustment of the mA and/or kV according to patient size, use of iterative reconstruction technique). Reading Location: [facility] Facial/Sinus 12/06/24 16:41 IMPRESSION: No evidence of acute facial fracture. Senescent changes. One or more dose reduction techniques were used (e.g., Automated exposure control, adjustment of the mA and/or kV according to patient size, use of iterative reconstruction technique). Reading Location: [facility] Chest X-Ray 12/06/24 17:10 IMPRESSION: No acute findings. Senescent changes. Mild cardiac enlargement. Reading Location: [facility] Knee X-Ray 12/06/24 17:10 IMPRESSION: Acute patellar fracture on background demineralization. Reading Location: [facility] 12/07/24 1317 Cosigner Signature (if applicable): CC: Dr. Argelia Darby, DO~ Signed [facility]03-16-2025 Consult note Author Luis Dozier [facility] Note Date/Time December 07, 2024 8:5 5am [facility] Medical Records Department [address] [place] [address] Consultation - Orthopedics 12/07/24 0843 MR#: [id number] Acct: [id number] Name: JERO LEWIS Rep #:[id number] : 1945 79 From: Luis Cowart PCP: Dr. Argelia Darby, DO Status:ADM IN Location: [place] [address] HPI Consult Data Date of Consult: 12/07/24 [...] but does not use in the bathroom. [facility] Medical History Vertigo PVCs (premature ventricular contractions) [...] 1 tab PO BID 3 12/06/24 History wa-vvax-hyps-joseph-boron chew tablet (Caltrate 600-D Plus Minerals) cyanocobalamin [...] History Mother CVA (cerebral vascular accident) Father [place] disease Son [place] disease Brother Heart disease Hypertension Daughter Lupus [...] 85.3 H, Lymph % (Auto) 8.6 L, [place] % (Auto) 4.0, Eos % (Auto) 1.3, [...] 77.5 H, Lymph % (Auto) 13.1 L, [place] % (Auto) 8.3, Eos % (Auto) 0.4, [...] acute intracranial abnormality. Senescent changes. Reading Location: [facility] Cervical Spine CT 12/06/24 16:41 IMPRESSION: No evidence of acute cervical spine fracture. Demineralization does limit sensitivity One or more dose reduction techniques were used (e.g., Automated exposure control, adjustment of the mA and/or kV according to patient size, use of iterative reconstruction technique). Reading Location: [facility] Facial/Sinus 12/06/24 16:41 IMPRESSION: No evidence of acute facial fracture. Senescent changes. One or more dose reduction techniques were used (e.g., Automated exposure control, adjustment of the mA and/or kV according to patient size, use of iterative reconstruction technique). Reading Location: [facility] Chest X-Ray 12/06/24 17:10 IMPRESSION: No acute findings. Senescent changes. Mild cardiac enlargement. Reading Location: [facility] Knee X-Ray 12/06/24 17:10 IMPRESSION: Acute patellar fracture on background demineralization. Reading Location: [facility] Knee images independently reviewed. Minimally [...] Patient will likely need inpatient rehabilitation or usp as she acclimates to weightbearing restrictions and [...] is discharged. If she [facility] in a [facility] can follow x-rays on a weekly basis plan on weekly 2 views of the knee AP and lateral and contact physician to review results. Knee must remain in extension and the knee immobilizer until follow-up. [facility] Office: (2) Elevated troponin: (3) Syncope: (4) NSVT (nonsustained ventricular tachycardia): 12/07/24 0855 <Electronically signed by Lius Dozier MD> Cosigner Signature (if applicable): CC: Dr. Argelia Darby, DO~ Signed [facility] Work Phone: 1(418) 224-515303-16-2025 Consult note [facility] Medical Records Department [address] [place] [address] Consultation - Orthopedics 12/07/24 0843 MR#: [id number] Acct: [id number] Name: JERO LEWIS Rep #:[id number] : 1945 79 From: Luis Cowart PCP: Dr. Argelia Darby DO Status:ADM IN Location: [facility] [id number]- [id number] HPI Consult Data Date of Consult: [...] but does not use in the bathroom. [facility] Medical History Vertigo PVCs (premature ventricular contractions) SOB (shortness of breath) Sleep apnea Vitamin D deficiency RLS (restless legs syndrome) Pulmonary hypertension Myalgia MVP (mitral valve prolapse) Dizziness CAD (coronary artery disease) Vitamin B12 deficiency Fatigue Osteoarthritis Depression Debility [place] disease History of endometrial biopsy COVID-19 Chronic [...] 1 tab PO BID 3 12/06/24 History hi-eomy-txkp-joseph-boron chew tablet (Caltrate 600-D Plus Minerals) cyanocobalamin [...] (cerebral vascular accident) Father Kimberlee disease Son [place] disease Brother Heart disease Hypertension Daughter Lupus [...] Hematologic/Lymphatic Hematologic/Lymphatic: Reports other Details: History of [place] disease Allergic/Immunologic Allergic/Immunologic: Reports as per HPI [...] 85.3 H, Lymph % (Auto) 8.6 L, [place] % (Auto) 4.0, Eos % (Auto) 1.3, [...] 77.5 H, Lymph % (Auto) 13.1 L, [place] % (Auto) 8.3, Eos % (Auto) 0.4, [...] acute intracranial abnormality. Senescent changes. Reading Location: [facility] Cervical Spine CT 12/06/24 16:41 IMPRESSION: No evidence of acute cervical spine fracture. Demineralization does limit sensitivity One or more dose reduction techniques were used (e.g., Automated exposure control, adjustment of the mA and/or kV according to patient size, use of iterative reconstruction technique). Reading Location: [facility] Facial/Sinus 12/06/24 16:41 IMPRESSION: No evidence of acute facial fracture. Senescent changes. One or more dose reduction techniques were used (e.g., Automated exposure control, adjustment of the mA and/or kV according to patient size, use of iterative reconstruction technique). Reading Location: [facility] Chest X-Ray 12/06/24 17:10 IMPRESSION: No acute findings. Senescent changes. Mild cardiac enlargement. Reading Location: [facility] Knee X-Ray 12/06/24 17:10 IMPRESSION: Acute patellar fracture on background demineralization. Reading Location: [facility] Knee images independently reviewed. Minimally [...] Patient will likely need inpatient rehabilitation or usp as she acclimates to weightbearing restrictions and [...] she is discharged. If she remains[facility] a [facility] can follow x-rays on a weekly basis plan on weekly 2 views of the knee AP and lateral and contact physician to review results. Knee must remain in extension and the knee immobilizer until follow-up. [facility] Office: (2) Elevated troponin: (3) Syncope: (4) NSVT (nonsustained ventricular tachycardia): 12/07/24 0855 Cosigner Signature (if applicable): CC: Dr. Argelia Darby, DO~ Signed [facility]03-16-2025 Discharge summary Author Rita Nowak [facility] Note Date/Time December 06, 2024 10: 12pm [facility] Medical Records Department [address] [place] [address] Emergency Department Summary 12/06/24 MR#: [id number] Acct: [id number] Name: JERO LEWIS Rep #:[id number] : 1945 79 From: Rita GAMING PCP: Dr. Argelia Darby, DO Status:ADM IN Location: [place] [address] HPI <MEKHI Raza - Last Filed: 12/06/24 [...] Anxiety and depression CAD (coronary artery disease) [place] disease Chronic hyponatremia COVID-19 Debility Depression Dizziness [...] 1 tab PO BID 3 12/06/24 History hd-ixnn-qciq-joseph-boron chew tablet (Caltrate 600-D Plus Minerals) cyanocobalamin [...] History Mother CVA (cerebral vascular accident) Father [place] disease Son [place] disease Brother Heart disease Hypertension Daughter Lupus [...] 88 Pulse Ox 93 Oxygen Delivery Method [facility] <MEKHI Raza - Last Filed: 12/06/24 18:48> [facility] Narrative Medical decision making narrative: Differential [...] History is [79-year-old female went outside to berry picker packages when she bent over she [...] 85.3 H Lymph % (Auto) 8.6 L [place] % (Auto) 4.0 Eos % (Auto) 1.3 [...] acute intracranial abnormality. Senescent changes. Reading Location: [facility] Cervical Spine CT 12/06/24 16:41 IMPRESSION: No evidence of acute cervical spine fracture. Demineralization does limit sensitivity One or more dose reduction techniques were used (e.g., Automated exposure control, adjustment of the mA and/or kV according to patient size, use of iterative reconstruction technique). Reading Location: [facility] Facial/Sinus 12/06/24 16:41 IMPRESSION: No evidence of acute facial fracture. Senescent changes. One or more dose reduction techniques were used (e.g., Automated exposure control, adjustment of the mA and/or kV according to patient size, use of iterative reconstruction technique). Reading Location: [facility] Chest X-Ray 12/06/24 17:10 IMPRESSION: No acute findings. Senescent changes. Mild cardiac enlargement. Reading Location: [facility] Knee X-Ray 12/06/24 17:10 IMPRESSION: Acute patellar fracture on background demineralization. Reading Location: [facility] Chest x-ray portable, single view, interpreted by myself chronic changes no acute process. ED attending interpretation of left knee shows displaced patellar fracture. <Dr. Orville Cortez MD - Last Filed: 12/06/24 19:23> MDM MDM Narrative Medical decision making narrative: I have personally performed a face to face assessment of the patient and have reviewed the MEJIA Note. I performed a substantive portion of the visit including all aspects of the following. My gutierrez findings include: History is [79-year-old female went outside to berry picker packages when she bent over she [...] 85.3 H Lymph % (Auto) 8.6 L [place] % (Auto) 4.0 Eos % (Auto) 1.3 [...] acute intracranial abnormality. Senescent changes. Reading Location: [facility] Cervical Spine CT 12/06/24 16:41 IMPRESSION: No evidence of acute cervical spine fracture. Demineralization does limit sensitivity One or more dose reduction techniques were used (e.g., Automated exposure control, adjustment of the mA and/or kV according to patient size, use of iterative reconstruction technique). Reading Location: [facility] Facial/Sinus 12/06/24 16:41 IMPRESSION: No evidence of acute facial fracture. Senescent changes. One or more dose reduction techniques were used (e.g., Automated exposure control, adjustment of the mA and/or kV according to patient size, use of iterative reconstruction technique). Reading Location: [facility] Chest X-Ray 12/06/24 17:10 IMPRESSION: No acute findings. Senescent changes. Mild cardiac enlargement. Reading Location: [facility] Knee X-Ray 12/06/24 17:10 IMPRESSION: Acute patellar fracture on background demineralization. Reading Location: [facility] Chest x-ray portable, single view, [...] and Local Irrigated (ml): 250 Number of Sutures/[place]: 6 Suture Information: Ethilon, Simple and 5-0 [...] your Primary Care Provider. Call [facility] ([phone]) or report to the closest Emergency Room. Call 911 if necessary. 12/06/24 1848 <Electronically signed by Rita GAMING> Cosigner Signature (if applicable): 12/06/24 2212 <Electronically signed by Orville Cortez MD> CC: Dr. Argelia Darby, DO ~ Signed [facility] Work Phone: 1(335) 230-858303-15-2025 Discharge summary [facility] Medical Records Department [address] [place] [address] Emergency Department Summary 12/06/24 MR#: [id number] Acct: [id number] Name: JERO LEWIS Rep #:[id number] : 1945 79 From: Rita GAMING PCP: Dr. Argelia Darby, Status:ADM IN Location: [facility] [id number]- 1 HPI HPI - Fall History of [...] does not know the name or reason. [facility] Medical History Allergic rhinitis Anxiety and depression CAD (coronary artery disease) [place] disease Chronic hyponatremia COVID-19 Debility Depression Dizziness [...] 1 tab PO BID 3 12/06/24 History sv-lzyr-zoqg-joseph-boron chew tablet (Caltrate 600-D Plus Minerals) cyanocobalamin [...] History is [79-year-old female went outside to berry picker packages when she bent over she [...] 85.3 H Lymph % (Auto) 8.6 L [place] % (Auto) 4.0 Eos % (Auto) 1.3 [...] acute intracranial abnormality. Senescent changes. Reading Location: [facility] Cervical Spine CT 12/06/24 16:41 IMPRESSION: No evidence of acute cervical spine fracture. Demineralization does limit sensitivity One or more dose reduction techniques were used (e.g., Automated exposure control, adjustment of the mA and/or kV according to patient size, use of iterative reconstruction technique). Reading Location: [facility] Facial/Sinus 12/06/24 16:41 IMPRESSION: No evidence of acute facial fracture. Senescent changes. One or more dose reduction techniques were used (e.g., Automated exposure control, adjustment of the mA and/or kV according to patient size, use of iterative reconstruction technique). Reading Location: [facility] Chest X-Ray 12/06/24 17:10 IMPRESSION: No acute findings. Senescent changes. Mild cardiac enlargement. Reading Location: [facility] Knee X-Ray 12/06/24 17:10 IMPRESSION: Acute patellar fracture on background demineralization. Reading Location: [facility] Chest x-ray portable, single view, [...] History is [79-year-old female went outside to berry picker packages when she bent over she [...] 85.3 H Lymph % (Auto) 8.6 L [place] % (Auto) 4.0 Eos % (Auto) 1.3 [...] acute intracranial abnormality. Senescent changes. Reading Location: [facility] Cervical Spine CT 12/06/24 16:41 IMPRESSION: No evidence of acute cervical spine fracture. Demineralization does limit sensitivity One or more dose reduction techniques were used (e.g., Automated exposure control, adjustment of the mA and/or kV according to patient size, use of iterative reconstruction technique). Reading Location: [facility] Facial/Sinus 12/06/24 16:41 IMPRESSION: No evidence of acute facial fracture. Senescent changes. One or more dose reduction techniques were used (e.g., Automated exposure control, adjustment of the mA and/or kV according to patient size, use of iterative reconstruction technique). Reading Location: [facility] Chest X-Ray 12/06/24 17:10 IMPRESSION: No acute findings. Senescent changes. Mild cardiac enlargement. Reading Location: [facility] Knee X-Ray 12/06/24 17:10 IMPRESSION: Acute patellar fracture on background demineralization. Reading Location: [facility] Chest x-ray portable, single view, [...] your Primary Care Provider. Call [facility] ([phone]) or report to the closest Emergency Room. Call 911 if necessary. 12/06/24 1848 Cosigner Signature (if applicable): 12/06/24 2212 CC: Dr. Argelia Darby, DO ~ Signed [facility]03-15-2025 History and physical note Author Sandro Jackman [facility] Note Date/Time December 06, 2024 7:0 9pm [facility] Medical Records Department [address] [place] [address] H&P Exam - Hospitalist 12/06/24 1852 MR#: [id number] Acct: [id number] Name: JERO LEWIS Rep #:[id number] : 1945 79 From: Sandro Jackman MD PCP: Dr. Argelia Darby, DO Status:ADM IN Location: [facility] [id number]- 1 HPI - General General Date of [...] fracture, Cervical spine fracture, Or intracranial bleed [facility] Medical History Allergic rhinitis Anxiety and depression CAD (coronary artery disease) [place] disease Chronic hyponatremia COVID-19 Debility Depression Dizziness [...] 1 tab PO BID 3 Unknown History cg-demt-iaij-joseph-boron chew tablet (Caltrate 600-D Plus Minerals) cyanocobalamin [...] 85.3 H, Lymph % (Auto) 8.6 L, [place] % (Auto) 4.0, Eos % (Auto) 1.3, [...] acute intracranial abnormality. Senescent changes. Reading Location: [facility] Cervical Spine CT 12/06/24 16:41 IMPRESSION: No evidence of acute cervical spine fracture. Demineralization does limit sensitivity One or more dose reduction techniques were used (e.g., Automated exposure control, adjustment of the mA and/or kV according to patient size, use of iterative reconstruction technique). Reading Location: [facility] Facial/Sinus 12/06/24 16:41 IMPRESSION: No evidence of acute facial fracture. Senescent changes. One or more dose reduction techniques were used (e.g., Automated exposure control, adjustment of the mA and/or kV according to patient size, use of iterative reconstruction technique). Reading Location: [facility] Chest X-Ray 12/06/24 17:10 IMPRESSION: No acute findings. Senescent changes. Mild cardiac enlargement. Reading Location: [facility] Knee X-Ray 12/06/24 17:10 IMPRESSION: Acute patellar fracture on background demineralization. Reading Location: [facility] Echocardiogram 09/26/2023: Interpretation Summary The [...] 06/25/2024: Interpretation: There were a [place] 96110 beats recorded over the 24 hour period. [...] test. 7 DAY EVENT MONITOR 12/20/22-12/26/22: IMPRESSION monitoring specialist significant for normal sinus rhythm background and [...] be full code for the procedure 12/06/24 1905 <Electronically signed by Sandro Jackman MD> Cosigner Signature (if applicable): CC: Dr. Sandro Jackman MD; Dr. Argelia Darby, DO~ Signed [facility] Work Phone: 1(669) 251-805803-15-2025 History and physical note [facility] Medical Records Department [address] [place] [address] H&P Exam - Hospitalist 12/06/24 1852 MR#: [id number] Acct: [id number] Name: JERO LEWIS Rep #:[id number] : 1945 79 From: Sandro Jackman MD PCP: Dr. Argelia Darby, Status:ADM IN Location: [facility] [id number]- 1 HPI - General General Date of [...] fracture, Cervical spine fracture, Or intracranial bleed [facility] Medical History Allergic rhinitis Anxiety [...] 1 tab PO BID 3 Unknown History hx-ongq-vfgp-joseph-boron chew tablet (Caltrate 600-D Plus Minerals) cyanocobalamin [...] mg tablet 100 mg PO QDAY 06/18/24 Unkn own History levothyroxine 125 mcg tablet [...] History Mother CVA (cerebral vascular accident) Father [place] disease Son [place] disease Brother Heart disease Hypertension Daughter Lupus [...] 85.3 H, Lymph % (Auto) 8.6 L, [place] % (Auto) 4.0, Eos % (Auto) 1.3, [...] acute intracranial abnormality. Senescent changes. Reading Location: [facility] Cervical Spine CT 12/06/24 16:41 IMPRESSION: No evidence of acute cervical spine fracture. Demineralization does limit sensitivity One or more dose reduction techniques were used (e.g., Automated exposure control, adjustment of the mA and/or kV according to patient size, use of iterative reconstruction technique). Reading Location: [facility] Facial/Sinus 12/06/24 16:41 IMPRESSION: No evidence of acute facial fracture. Senescent changes. One or more dose reduction techniques were used (e.g., Automated exposure control, adjustment of the mA and/or kV according to patient size, use of iterative reconstruction technique). Reading Location: [facility] Chest X-Ray 12/06/24 17:10 IMPRESSION: No acute findings. Senescent changes. Mild cardiac enlargement. Reading Location: [facility] Knee X-Ray 12/06/24 17:10 IMPRESSION: Acute patellar fracture on background demineralization. Reading Location: [facility] Echocardiogram 09/26/2023: Interpretation Summary The [...] 06/25/2024: Interpretation: [place] 42496 beats recorded over the 24 hour period. [...] test. 7 DAY EVENT MONITOR 12/20/22-12/26/22: IMPRESSION monitoring specialist significant for normal sinus rhythm background and [...] Jackman MD; Dr. Argelia Darby DO~ Signed [facility]03-15-2025 Radiology Diagnostic study note [facility] Imaging Services [address] [place] [address] Chest 1 View (Portable) MR#: [id number] Acct: [id number] Name: JERO LEWIS Rep #: [id number] : 1945 F 79 From: Jean Claude Azevedo MD PCP: Dr. Argelia Darby DO Status: ADM IN Study:Chest 1 View (Portable) Date of Exam: 12/06/24 Exam# [id number] Ordering Dr: Rita Brice PROCEDURE: CHEST 1 VIEW (PORTABLE) 12/06/2024 REASON FOR EXAM: FALL TECHNIQUE: Frontal view of the chest. COMPARISON: None. FINDINGS: Mildly enlarged heart. Bronchial thickening. No localizing infiltrate, effusion or pneumothorax. Degenerative changes seen about the right shoulder. Tortuous thoracic aorta. RAD/Chest 1 View (Portable) IMPRESSION: No acute findings. Senescent changes. Mild cardiac enlargement. Reading Location: [id number] CC: Dr. Argelia Darby DO; MEKHI Raza ~ Burning Machine Operator: Signed [facility]03-15-2025 Radiology Diagnostic study note [facility] Imaging Services [address] [place] [id number] Sinus/Facial Bone MR#: [id number] Acct: [id number] Name: JERO LEWIS Rep #: [id number] : 1945 F 79 From: Jean Claude Azevedo MD PCP: Dr. Argelia Darby DO Status: REG ER Study:Sinus/Facial Bone Date of Exam: Exam# [id number] Ordering Dr: Rita Brice PROCEDURE: SINUS/FACIAL BONE [...] use of iterative reconstruction technique). Reading Location: [facility] CC: Dr. Argelia Darby DO; MEKHI Raza ~ Burning Machine Operator: Signed [facility]03-15-2025 Radiology Diagnostic study note [facility] Imaging Services [address] [place], [place] [id number] Knee 1 or 2 Views MR#: [id number] Acct: [id number] Name: JERO LEWIS Rep #: [id number] : 1945 F 79 From: Jean Claude Azevedo MD PCP: Dr. Argelia Darby DO Status: REG ER Study:Knee 1 or 2 Views Date of Exam: Exam# [id number] Ordering Dr: Rita Brice PROCEDURE: KNEE 1 OR 2 VIEWS REASON FOR EXAM: PAIN TECHNIQUE: Two-view left knee COMPARISON: None. FINDINGS: There is an acute fracture of the patellar body which is displaced approximately6 mm with a joint effusion. Demineralized bones. No dislocation RAD/Knee 1 or 2 Views IMPRESSION: Acute patellar fracture on background demineralization. Reading Location: [facility] CC: Dr. Argelia Darby DO; MEKHI Raza ~ Burning Machine Operator: Signed [facility]03-15-2025 Radiology Diagnostic study note [facility] Imaging Services [address] [place], [place] [id number] Spine Cervical without Contras MR#: [id number] Acct: [id number] Name: JERO LEWIS Rep #: [id number] : 1945 F 79 From: Jean Claude Azevedo MD PCP: Dr. Argelia Darby DO Status: REG ER Study:Spine Cervical without Contras Date of Exam: 12/06/24 Exam# [id number] Ordering Dr: Rita Brice PROCEDURE: SPINE CERVICAL [...] use of iterative reconstruction technique). Reading Location: [id number] CC: Dr. Argelia Darby DO; MEKHI Raza ~ Burning Machine Operator: Signed [facility]03-15-2025 Radiology Diagnostic study note [facility] Imaging Services [address] [place] [id number] Brain/Head without Contrast MR#: [id number] Acct: [id number] Name: JERO LEWIS Rep #: [id number] : 1945 F 79 From: Jean Claude Azevedo MD PCP: Dr. Argelia Darby DO Status: REG ER Study:Brain/Head without Contrast Date of Exa m: 12/06/24 Exam# [id number] Ordering Dr: Rita Brice EXAM: BRAIN/HEAD WITHOUT [...] acute intracranial abnormality. Senescent changes. Reading Location: [id number] CC: Dr. Argelia Darby DO; MEKHI Raza ~ Burning Machine Operator: Signed [facility]12-05-2024 Evaluation note* Diagnosis Onset Date Resolution [...] to ambulate acute December 06, 2024 6:05pm [facility] Work Phone: 1(241) 458-667812-05-2024 Evaluation note* Diagnosis Onset Date Resolution Status [...] ar tachycardia) chronic December 06, 2024 6:45pm [facility] Work Phone: 1(150) 543-206712-02-2024 Note* Exam Date Time Procedure Performing Provider Status 08/25/24 4:17 PM Echocardiogram, Adult - CV Auth (Verified) [facility] 12-02-2024 Note ORIGINAL EXAMINATION: BONE DENSITOMETRY 08/25/2024 [...] Sign Date: 08/25/2024 3:40:14 PM Ordering Provider: [facility]08-22-2024 Note ORIGINAL EXAMINATION: CT Angiogram [...] Sign Date: 05/15/2024 9:48:09 AM Ordering Provider: [facility]08-22-2024 Note ORIGINAL EXAMINATION: CTA neck: [...] Date: 05/15/2024 9:55:06 AM Ordering Provider: [facility]08-22-2024 Note* Exam Date Time Procedure Performing Provider Status 05/15/24 8:16 AM VL Carotid US/Dopple r Complete - CV Auth (Verified) [facility] 12-10-2023 Hospital Discharge instructions Patient Education 09/02/2023 [...] when standing up too quickly or straining 7722-0979 [employer]. [address] [place] [address]. All rights reserved. This information is not [...] about: All medicines you take, including prescription, stya-swi-vthsttj, herbs, and supplements Any other symptoms you [...] Chest, arm, neck, back, or jaw pain 3752-6076 [employer]. [address] [place] [address]. All rights reserved. This information is not intended as a substitute for professional medical care. Always follow yourhealthcare professional's instructions. Follow Up Care 09/02/2023 11:01:47 With:ARGELIA DARBY DO Address: [address] [place] [address] [phone] When:2-4 days [facility] 12-10-2023 Emergency department Discharge summary Discharge Instructions [...] DARBY DO When Within 2-4 days Where: [address] [place] [phone] Allergies ASA/caffeine/propoxyphene (Unknown) Darvon (vomiting) atorvastatin (Unknown) [...] when standing up too quickly or straining 7315-3905 [employer]. [address] [place] [address], [place] [address]. All rights reserved. This information is not intended as a substitute for professional medical care. Always follow yourhealthcare professional's instructions. Dizziness (Uncertain Cause) Dizziness is a common symptom. It may be described as lightheadedness, spinning, or feeling like you are going to faint. Dizziness can have many causes. Be sure to tell the healthcare provider about: All medicines you take, including prescription, brwx-ent-ozqwqvg, herbs, and supplements Any other symptoms you [...] Chest, arm, neck, back, or jaw pain 1384-9787 [employer]. [address] [place] [address]. All rights reserved. This information is not [...] are many vaccine clinic locations within the [facility]. For locations and available times, please visit www.gettheshot.coronavirus.[place].gov/. It is important to note that some COVID mobile vaccine clinics are held outdoors and may be canceled in rainy or stormy conditions. To learn more about pediatric vaccinations (ages 5-11), we invite you to visit the [facility] webpage. https://www.[facility].org/pages/7894-Llhoe-Ifciaeddglf-Kiylvhbyxn-Hzbiv-Gjj stions.htmlTo learn more about the COVID-19 vaccine, we invite you to visit the CDC website for a list of frequently asked questions. https://www.cdc.gov/coronavirus/2019-ncov/vaccines/faq.html [facility] Patient Portal Access Instructions: Stay connected with your healthcare team and access your personal medical information anytime with the [facility] Patient Portal. If you would like a full copy of your medical records please contact the [facility] Medical Records Department Sunday through Sunday between 8a.m. and 4:30p.m. Please follow the directions below to access the portal: 1.Access the email account you provided upon registration to the [facility].2.Look for an invitation email from [facility].3.Open the email and access the invitation link: Accept Invitation to [facility]4.Fill in the required french to create your account. Sign into [email or web address] with your username and password that you [...] you will allow to register on the [facility] Patient Portal for access to your information. You can also access the [facility] Patient Portal on the [employer]. Simply click on Health Records under rankurta and then click on the YouAppi logo. HOW TO SAFELY DISPOSE OF PRESCRIPTION [...] Call your local pharmacy or go to http://bit.DFine/6M0Sj1j to find one close to you.3.Make use of household items: Use cat litter or old coffee grounds to dispose medications if other options arenot available. Mix your drugs with these household products, seal them in an airtight container andthrow it into the garbage. Call [facility]: [phone] to be sure your drugs can be [...] aware that I should contact my doctor. Patient/Technology Officer Signature: Date/Time: Relationship to Patient: Witness Name/Signature: Date/Time: [facility]12-10-2023 Note ORIGINAL EXAMINATION: ONE XRAY VIEW OF [...] Date: 09/02/2023 12:13:24 PM Ordering Provider: YAZMIN [facility]12-10-2023 Note ORIGINAL EXAMINATION: CT OF THE HEAD [...] Date: 09/02/2023 12:12:26 PM [facility]ing [facility] NoteSinus rhythm Borderline left axis deviation Anteroseptal infarct, old Compared to ECG at 07/27/2023 20:20:02 BORDERLINE ECG Electronic Signature: HAVENALICIAYAZMIN Maurice DO 09/02/2023 11:44:59[facility] 11-15-2023 Discharge summary Author Juan Diego Marks [facility] August 08, 2023 7:38pm Note Date/Time August 08, 2023 7:34pm [facility] Medical Records Department [address] [place] [address] [place] [address] Discharge Summary 08/08/231931 MR#: [id number] Acct: [id number] Name: JERO LEWIS Rep #:[id number] : 1945 77 From: Juan Diego Marks MD PCP: Dr. Argelia Darby DO Status:ADM IN Location: [place] [address] Providers Date of Admission: 07/31/23 Primary Care [...] discharge home alone. Discharge home alone 08/14/2023, Radius PT, [facility] [place]. Physical Exam Const alert [...] (Auto) 43.2 L, Lymph % (Auto) 39.3, [place] % (Auto) 9.7, Eos % (Auto) 6.6 [...] pain Additional Instructions: Discharge home alone 08/14/2023, [facility], [employer] [facility]. Please Follow Up With: Dr. Snowden Meaningful Use Info Meaningful Use Diagnoses (Choose all that apply): None applicable Discharge Plan Admission Admit Date/Time: 07/31/23 15:21 Primary Reason for Your Visit: Debility. Attending Provider: Juan Diego Marks [facility] Primary Care Provider: Argelia Darby Instructions Additional Instructions / Restrictions: Discharge home alone 08/14/2023, [facility], [employer] [place]. Discharge Orders/Prescriptions Prescriptions: New acetaminophen 500 [...] DO; Dr. Juan Diego Marks MD~ Signed [facility] Work Phone: 1(166) 411-943411-09-2023 Progress note Author Marisa Najera [facility] August 02, 2023 10:43am Note Date/Time August 02, 2023 1 0:11am [facility] Medical Records Department [address] [place] [address] Progress Note - Pharmacy 08/02/23 1006 MR#: [id number] Acct: [id number] Name: JERO LEWIS Rep #:[id number] : 1945 77 From: Marisa Najera PCP: Dr. Argelia Darby DO Status:ADM IN Location: [place] [address] TCU RX Drug Regimen Review Subjective/Objective Subjective/Objective: [...] 10:00 Menthol/Lanolin/Calamine/Znox 113 Gm Tube TOPICAL BID [facility] Protocol Enoxaparin Sodium 40 mg 08/01/23 06:00 [...] Mg Tablet PO 12.5 mg TID PRN [facility] Administration Miconazole Nitrate 1 applic 07/31/23 22:00 08/02/23 09:05 Miconazole Nitrate 43 Gm Bottle TOPICAL 1 applic BID [facility] Administration Protocol Potassium Chloride 20 meq 08/02/23 [...] Cosigner Signature (if applicable): CC: ~ Signed [facility] Work Phone: 1(430) 517-480411-08-2023 History and physical note Author Juan Diego Kendrick [facility] August 01, 2023 5:35pm Note Date/Time July 31, 2023 4 :23pm [facility] Medical Records Department [address] [place] [address] History & Physical Exam 07/31/23 1619 MR#: [id number] Acct: [id number] Name: JERO LEWIS Rep #:[id number] : 1945 77 From: Juan Diego Marks MD PCP: Dr. Argelia Darby, DO Status:ADM IN Location: [place] [address] HPI - General General Date of Admission: 07/31/23 Date of Service: 07/31/23 Chief Complaint: Here for rehabilitation. HPI Narrative JERO LEWIS, is a 77 Female who presents with followin07/28/2023 Admit to [facility] from [facility]. +covid 07/24/2023, fatigue, malaise, nausea/vomiting, dizziness, loose stools, sore throat, myalgias, chills. Sodium 119, chronic hyponatremia on sodium chloride tablets, Chest X-ray negative. [facility] Emergency department gave normal saline 750ml iv, KCL 40meq,Magnesium 2gm iv, Zofran 4mg iv, Morphine 2mg iv, Tylenol 650mg x 1. IV fluids for hyponatremia, dehydration. Repeat magnesium level. 07/28/2023 Pulsox 100% on room air. Consult Nephrology for hyponatremia. 07/29/2023 Doing well. Stop HCTZ for hyponatremia. Magnesium level 2.1. 07/30/2023 Weak, unsafe to go home to [facility] home, recommend SNF. Decadron not necessary for covid. Sodium chloride 1gm bid, stop Lasix, stop HCTZ, stop Sertraline for hyponatremia. 07/31/2023 Admit to TCU with debility, here for rehabilitation, strengthening, prior to discharge home with . [facility] Medical History (Updated 07/31/23 @ 16:[address] Juan Diego Marks MD) Allergic rhinitis Anxiety and depression [place] disease Chronic hyponatremia COVID-19 History of endometrial [...] Depression - Sertraline 50mg daily, stable chronic alf use, GDR not recommended, monitor sodium. 08/01/23 1735<Electronically signed by Juan Diego Marks MD> Cosigner Signature (if applicable): cc: Dr. Argelia Darby DO; Dr. Juan Diego Marks MD ~* Signed [facility] Work Phone: 1(131) 515-898311-07-2023 Progress note Author De Snowden [facility] July 31, 2023 12:46pm Note Date/Time July 31, 2023 1 2:46pm [facility] Medical Records Department [address] [place] [address] Progress Note - Nephrology 07/31/23 1244 MR#: [id number] Acct: [id number] Name: JERO LEWIS Rep #:[id number] : 1945 77 From: De arenas MD PCP: Dr. Argelia Darby DO Status:ADM IN Location: [place] [address] Subjective Subjective No new events Objective Data [...] % (Auto) 67.4, Lymph % (Auto) 21.0, [place]% (Auto) 8.6, Eos % (Auto) 2.2, Baso [...] hospitalist 07/31/23 1246 <Electronically signed by De Snowden MD> Cosigner Signature (if applicable): CC: ~ Signed [facility] Work Phone: 1(505) 247-412911-06-2023 Progress note Author Natalya Wright [facility] July 30, 2023 5:01pm Note Date/Time July 30, 2023 5 :01pm [facility] Medical Records Department [address] [place] [address] Progress Note - Hospitalist 07/30/23 1658 MR#: [id number] Acct: [id number] Name: JERO LEWIS Rep #:[id number] : 1945 77 From: Natalya Wright MD PCP: Dr. Argelia Darby, DO Status:ADM IN [facility] Reason for Visit Reason for Visit: Diagnoses [...] replacement was given repeat serum potassium normal. Side Puller consulted. 07/29/2023: Awaiting lab work today, she [...] temporally hold as could be contributing. #8. [place] disease carrier status: Patient with family history of [place] disease, noted to be a carrier herself only. #9. Allergic rhinitis: If needed may add patient azelastine nasal spray. DVT: Lovenox Time spent in the patient's overall evaluation,decision-making process, review of diagnostic data, adjustment of management, discussion with other providers, nursing nursing and ancillary staff involved in patient's care documentation, 37minutes Charges/Coding Visit Charges Inpatient E&M: 59222 Subs Hosp L2 07/30/23 1701 <Electronically signed by Natalya Wright MD> Cosigner Signature (if applicable): CC: ~ Signed [facility] Work Phone: 1(263) 857-344611-05-2023 Progress note Author Trever Viveros [facility] July 29, 2023 8:34am Note Date/Time July 29, 2023 8 :29am [facility] Medical Records Department [address] [place] [address] Progress Note - Hospitalist 07/29/2325 MR#: [id number] Acct: [id number] Name: JERO LEWIS Rep #:[id number] : 1945 77 From: Trever pickering MD PCP: Dr. Argelia Darby, DO Status:ADM IN Location: [place] IQ290-6 Subjective Subjective Normal doing well, no issues [...] replacement was given repeat serum potassium normal. Side Puller consulted. 07/29/2023: Awaiting lab work today, she [...] DVT: Lovenox Charges/Coding Visit Charges Inpatient E&M: 94724 Subs Hosp L2 07/29/23 0834 <Electronically signed by Trever Viveros MD> Cosigner Signature (if applicable): CC: ~ Signed [facility] Work Phone: 1(342) 964-888611-04-2023 Consult note Author De Snowden [facility] July 28, 2023 1:08pm Note Date/Time July 28, 2023 1 :08pm [facility] Medical Records Department [address] [place] [address] Consultation - Nephrology 07/28/23 1305 MR#: [id number] Acct: [id number] Name: JERO LEWIS Rep #:[id number] : 1945 77 From: De arenas MD PCP: Dr. Argelia Darby, DO Status:ADM [facility] Location: [place] [address] Assessment & Plan Assessment/Plan (1) Hyponatremia: PLAN: [...] loss or gain recently. No significant edema. [facility] Medical History Allergic rhinitis Anxiety and depression [place] disease Chronic hyponatremia COVID-19 History of endometrial [...] (cerebral vascular accident) Father Kimberlee disease Son [place] disease Brother Heart disease Hypertension Daughter Lupus [...] 86.0 H, Lymph % (Auto) 10.1 L, [place] % (Auto) 3.1, Eos % (Auto) 0.2, [...] Dr. De Snowden MD; Dr. Argelia Darby DO~ Signed [facility] Work Phone: 1(284) 257-942311-04-2023 Progress note Author Brooks Carcamo [facility] July 28, 2023 11:52am Note Date/Time July 28, 2023 7 :32am [facility] Medical Records Department [address] [place] [address] Progress Note - Hospitalist 07/28/23729 MR#: [id number] Acct: [id number] Name: JERO LEWIS Rep #:[id number] : 1945 77 From: Brooks Cowart PCP: Dr. Argelia Darby, DO Status:ADM JON Location: [place] EE324-1 Reason for Visit Reason for Visit: Diagnoses [...] 86.0 H, Lymph % (Auto) 10.1 L, [place] % (Auto) 3.1, Eos % (Auto) 0.2, [...] tablets by PCP. She does not follow license distributor. Physical exam General: Alert, Oriented x3, Cooperative [...] was directly admitted on [facility] floor from [facility] on 07/28/23 admitted with persistent cough [...] replacement was given repeat serum potassium normal. Side Puller consulted. #3. Hypomagnesia: Magnesium from outside facility [...] temporally hold as could be contributing. #8. [place] disease carrier status: Patient with family history of [place] disease, noted to be a carrier herself [...] intubation status. Charges/Coding Visit Charges Inpatient E&M: 36234 Subs Hosp L2 07/28/23 1152 <Electronically signed by Brooks Carcamo MD> Cosigner Signature (if applicable): CC: ~ Signed [facility] Work Phone: 1(940) 712-291311-04-2023 History and physical note Author Madhavi Pate [facility] July 28, 2023 1:30am Note Date/Time July 28, 2023 1 2:22am [facility] Medical Records Department [address] [place] [address] H&P Exam - Hospitalist 07/28/23 0038 MR#: [id number] Acct: [id number] Name: JERO LEWIS Rep #:[id number] : 1945 77 From: Madhavi Pate MD PCP: Dr. Argelia Darby, DO Status:ADM JON Location: [place] [address] HPI - General General Date of Admission: 07/28/23 Date of Service: 07/28/23 Chief Complaint: Cough, N/V, + COVID diagnosis HPI Narrative The patient is a 77 y/o F w/ PMHx: Chronic hyponatremia (prior rx ordered for sodium tablets but no obvious labs consistent with hyponatremia upon review of outside records thus unclear), Hypothyroidism, HLD, HTN, Anxiety and Depression who presents to the [facility] as a direct admission from [facility] on 07/28/23 w/ history of COVID [...] congestion. Patient presented to the outside facility [facility] ED on 07/27/2023 and work-up at [...] mg po x 1. Home medications per [facility] most recent records (unverified): Amlodipine 5 mg [...] except 2 tablets on Sunday, Sunday, Sunday [facility] Medical History Allergic rhinitis Anxiety [...] Anxiety and Depression who presents to the [facility] as a direct admission from [facility] on 07/28/23 w/ history of COVID [...] carrier status: Patient with family history of [place] disease, noted to be a carrier herself [...] 16 minutes. Charges/Coding Visit Charges Inpatient E&M: 30904 Init Hosp L3 Procedures Hospitalists Procedures: 53923 Advncd Care Plan 30 Min 07/28/23 0130 <Electronically signed by Madhavi Pate MD> Cosigner Signature (if applicable): CC: Dr. Madhavi Pate MD; Dr. Argelia Darby, DO~ Signed [facility] Work Phone: 1(678) 981-777811-03-2023 Note ORIGINAL EXAMINATION: TWO XRAY VIEWS OF [...] Date: 07/27/2023 8:42:35 PM [facility] Note Sinus rhythm Borderline left axis deviation Anteroseptal infarct, old Nonspecific repol abnormality, diffuse leads Compared to ECG at 06/20/2021 17:38:08 Electronic Signature: RASHEL SPANGLER DO 07/27/2023 20:35:36[facility] 10-31-2023 SARS-CoV-2 (COVID-19) RNA YOLANDA+probe Ql (Nph) Positive *ABN* (07/24/23 2:06 PM)AO Auto Urine [id number] Note ORIGINAL EXAMINATION: BONE DENSITOMETRY 08/23/2022 11:52 [...] Date: 08/23/2022 1:33:00 PM Ordering Provider: ARGELIA WILNER [facility]11-30-2022 Note ORIGINAL EXAMINATION: BONE DENSITOMETRY [...] Date: 08/23/2022 1:33:00 PM [facility]ing [facility] Author Joni Funk [facility] July 31, 2023 2:11pm Note Date/Time July 31, 2023 2 :11pm [facility] Medical Records Department [address] [place] [address] Counseling Note - Pharmacy 07/31/23 1410 MR#: [id number] Acct: [id number] Name: JERO LEWIS Rep #:[id number] : 1945 77 From: Joni Funk PCP: Dr. Argelia Darby, DO Status:ADM IN Y Location: [place] ZA741-4 [place]acy [place] [facility]con[facility] Pharmacy Service has [...] signed by Joni warren> Date _ Joni Wellsigner Signature (if applicable): Date CC: ~ Signed [facility] Work Phone: Discharge summary Author Natalya Wright [facility] July 31, 2023 2:04pm Note Date/Time July 31, 2023 2 :01pm [facility] Medical Records Department [address] [place] [address] [facility] MR#: [id number] Acct: [id number] Name: JERO LEWIS Rep #:[id number] : 1945 77 From: Natalya Wright MD PCP: Dr. Argelia Darby, DO Status:ADM IN Certification of patient admission REQUIRED AT TIME OF ADMISSION. I CERTIFY THAT POST-HOSPITAL ECF SERVICES ARE REQUIRED TO BE GIVEN ON AN IN-PATIENT BASIS BECAUSE OF THE ABOVE NAMED PATIENT'S NEED FOR JAIL CARE ON A CONTINUING BASIS FOR THE [...] Anxiety and Depression who presents to the [facility] as a direct admission from [facility] on 07/28/23 for a sodium of [...] to 1 g twice daily by the license distributor and zoloft has been discontinued to help [...] [facility]. Please call their office [...] to 1 g twice daily by the license distributor and zoloft has been discontinued to help [...] sodium in 2 to [facility]. Please call their office [...] in before D/C Order can be placed): [facility] 07/31/234 <Electronically signed by Natalya Wright MD> Cosigner Signature (if applicable): CC: Dr. Madhavi Pate MD; Dr. De Snowden MD; Dr. Argelia Darby DO; Dr. Trever Viveros MD; Dr. Natalya Wright MD; Dr. Brooks Carcamo MD ~ [facility] Work Phone: Discharge summary Author Natalya Wright [facility] July 31, 2023 2:05pm Note Date/Time July 31, 2023 2 :05pm [facility] Medical Records Department [address] [place] [address] Discharge Summary 07/31/23 1404 MR#: [id number] Acct: [id number] Name: JERO LEWIS Rep #:[id number] : 1945 77 From: Natalya Wright MD PCP: Dr. Argelia Wilner, DO Status:ADM IN Location: [place] FP531-9 Providers Date of Admission: 07/28/23 Date of Discharge: 07/31/23 Primary Care Physician: Dr. Argelia Darby, Consultations 07/28/23 07:32 Consult: Nephrology Routine Consulting [...] Anxiety and Depression who presents to the [facility] as a direct admission from [facility] on 07/28/23 for a sodium of [...] to 1 g twice daily by the license distributor and zoloft has been discontinued to help [...] sodium in 2 to [facility] Please call their office [...] % (Auto) 67.4, Lymph % (Auto) 21.0, [place]% (Auto) 8.6, Eos % (Auto) 2.2, Baso [...] to 1 g twice daily by the license distributor and zoloft has been discontinued to help [...] sodium in 2 to [facility]. Please call their office [...] in before D/C Order can be placed): [facility] Charges/Coding Visit Charges Inpatient E&M: 98633 Disch Hosp >30min 07/31/23 1405 <Electronically signed by Natalya Wright MD> Cosigner Signature (if applicable): CC: Dr. Argelia Darby DO; Dr. Natalya Wright MD~ Signed [facility] Work Phone: Evaluation + Plan note Future Appointments Appointment Date:07/27/2021 02:00:00 PM Scheduled Provider:SHAYNE GONZALEZ Location:[facility] Appointment Type:CV OV Appointment Date:09/13/2021 10:00:00 AM Scheduled Provider:ARGELIA DARBY DO Location:[facility] Appointment Type:PC OV Appointment Date:09/29/2021 11:30:00 AM Scheduled Provider:SHAYNE GONZALEZ Location:[facility] Appointment Type:CV OV [facility] Evaluation + Plan note Future Appointments Appointment Date:08/31/2021 02:00:00 PM Scheduled Provider:SHAYNE GONZALEZ Location:[facility] Appointment Type:CV OV Appointment Date:09/13/2021 10:00:00 AM Scheduled Provider:ARGELIA DARBY DO Location:[facility] Appointment Type:PC OV Appointment Date:09/29/2021 11:30:00 AM Scheduled Provider:SHAYNE GONZALEZ Location:[facility] Appointment Type: OV [facility] Evaluation + Plan note Future Appointments Appointment Date:03/01/2022 01:15:00 PM Scheduled Provider:SHAYNE GONZALEZ Location:[facility] Appointment Type:CV OV Appointment Date:04/05/2022 11:00:00 AM Scheduled Provider:ARGELIA DARBY DO Location:[facility] Appointment Type:PC OV Future Scheduled Tests Laboratory* Basic Metabolic Panel 10/06/21 * Thyroid Stimulating Hormone 12/04/21 [facility] Evaluation + Plan note Future Appointments Appointment Date:03/01/2022 01:15:00 PM Scheduled Provider:SHAYNE GONZALEZ Location:[facility] Appointment Type:CV OV Appointment Date:04/05/2022 11:00:00 AM Scheduled Provider:ARGELIA DARBY DO Location:[facility] Appointment Type:PC OV Future Scheduled Tests Laboratory* Basic Metabolic Panel 10/13/21 * Thyroid Stimulating Hormone 12/04/21 [facility] Evaluation + Plan note Future Appointments Appointment Date:03/01/2022 01:15:00 PM Scheduled Provider:SHAYNE GONZALEZ Location:[facility] Appointment Type:CV OV Appointment Date:04/05/2022 11:00:00 AM Scheduled Provider:ARGELIA DARBY DO Location:[facility] Appointment Type:PC OV Future Scheduled Tests Laboratory* Thyroid Stimulating Hormone 12/04/21 [facility] Evaluation + Plan note Future Appointments Appointment Date:12/09/2021 09:30:00 AM Scheduled Provider: Location:[facility] Appointment Type:PT Outpatient Evaluation Appointment Date:03/01/2022 01:15:00 PM Scheduled Provider:SHAYNE GONZALEZ Location:[facility] Appointment Type:CV OV Appointment Date:04/05/2022 11:00:00 AM Scheduled Provider:ARGELIA DARBY DO Location:[facility] Appointment Type:PC OV [facility] Evaluation + Plan note Future Appointments Appointment Date:03/01/2022 01:15:00 PM Scheduled Provider:SHAYNE GONZALEZ Location:[facility] Appointment Type:CV OV Appointment Date:04/05/2022 11:00:00 AM Scheduled Provider:ARGELIA DARBY DO Location:[facility] Appointment Type:PC OV [facility] Evaluation + Plan note Future Appointments Appointment Date:07/11/2022 11:30:00 AM Scheduled Provider:ARGELIA DARBY DO Location:[facility] Appointment Type:PC Wellness Medicare Appointment Date:09/06/2022 01:00:00 PM Scheduled Provider:SHAYNE GONZALEZ Location:[facility] Appointment Type:CV OV Appointment Date:10/10/2022 11:00:00 AM Scheduled Provider:ARGELIA DARBY DO Location:[facility] Appointment Type:PC OV Follow Up Future Scheduled Tests Laboratory* Basic Metabolic Panel 04/19/22 [facility] Evaluation + Plan note Future Appointments Appointment Date:07/11/2022 11:30:00 AM Scheduled Provider:ARGELIA DARBY DO Location:[facility] Appointment Type:PC Wellness Medicare Appointment Date:09/06/2022 01:00:00 PM Scheduled Provider:SHAYNE GONZALEZ Location:[facility] Appointment Type:CV OV Appointment Date:10/10/2022 11:00:00 AM Scheduled Provider:ARGELIA DARBY DO Location:[facility] Appointment Type:PC OV Follow Up [facility] Evaluation + Plan note Future Appointments Appointment Date:09/06/2022 01:00:00 PM Scheduled Provider:SHAYNE GONZALEZ Location:[facility] Appointment Type:CV OV Appointment Date:12/26/2022 11:00:00 AM Scheduled Provider:ARGELIA DARBY DO Location:[facility] Appointment Type:PC OV Follow Up [facility] Evaluation + Plan note Future Appointments Appointment Date:01/29/2023 01:30:00 PM Scheduled Provider:SHAYNE GONZALEZ Location:[facility] Appointment Type:CV OV [facility] evaluation + Plan note Future Appointments Appointment Date:01/29/2023 01:30:00 PM Scheduled Provider:SHAYNE GONZALEZ Location:[facility] Appointment Type:CV OV Future Scheduled Tests Laboratory* Complete Metabolic Panel 02/26/23 [facility] Evaluation + Plan note Future Appointments Appointment Date:05/01/2023 01:00:00 PM Scheduled Provider:SHAYNE GONZALEZ Location:[facility] Appointment Type:CV OV Appointment Date:07/13/2023 02:00:00 PM Scheduled Provider:ARGELIA DARBY DO Location:[facility] Appointment Type:PC Wellness Medicare Future Scheduled Tests Laboratory* Complete Metabolic Panel 02/26/23 [facility] Evaluation + Plan note Future Appointments Appointment Date:07/24/2023 10:45:00 AM Scheduled Provider: Location:[facility] Appointment Type:PC Nurse Injection Appointment Date:09/07/2023 11:30:00 AM Scheduled Provider:ARGELIA DARBY DO Location:[facility] Appointment Type:PC OV Appointment Date:11/13/2023 01:00:00 PM Scheduled Provider:SHAYNE GONZALEZ Location:[facility] Appointment Type:CV OV Future Scheduled Tests Laboratory* Complete Metabolic Panel 02/26/23 [facility] Evaluation + Plan note Future Appointments Appointment Date:08/21/2023 10:45:00 AM Scheduled Provider: Location:[facility] Appointment Type:PC Nurse Appointment Date:09/07/2023 11:30:00 AM Scheduled Provider:ARGELIA DARBY DO Location:[facility] Appointment Type:PC OV Appointment Date:11/13/2023 01:00:00 PM Scheduled Provider:SHAYNE GONZALEZ Location:[facility] Appointment Type:CV OV Diagnostic Tests Pending * Urinalysis 07/27/23 Future Scheduled Tests Laboratory* Complete Metabolic Panel 02/26/23 [facility] Evaluation + Plan note Future Appointments Appointment Date:08/21/2023 10:45:00 AM Scheduled Provider: Location:[facility] Appointment Type:PC Nurse Appointment Date:09/07/2023 11:30:00 AM Scheduled Provider:ARGELIA DARBY DO Location:[facility] Appointment Type:PC OV Appointment Date:11/13/2023 01:00:00 PM Scheduled Provider:SHAYNE GONZALEZ Location:[facility] Appointment Type:CV OV Future Scheduled Tests Laboratory* Complete Metabolic Panel 02/26/23 [facility] Evaluation + Plan note Future Appointments Appointment Date:09/07/2023 11:30:00 AM Scheduled Provider:ARGELIA DARBY DO Location:[facility] Appointment Type:PC OV Appointment Date:09/25/2023 11:30:00 AM Scheduled Provider: Location:[facility] Appointment Type:PC Nurse Appointment Date:11/13/2023 01:00:00 PM Scheduled Provider:SHAYNE GONZALEZ Location:[facility] Appointment Type:CV OV Future Scheduled Tests Laboratory* Complete Metabolic Panel 08/22/23 [facility] Evaluation + Plan note Future Appointments Appointment Date:11/13/2023 01:00:00 PM Scheduled Provider:SHAYNE GONZALEZ Location:[facility] Appointment Type:CV OV [facility] Evaluation + Plan note Future Appointments Appointment Date:12/19/2023 02:15:00 PM Scheduled Provider: Location:[facility] Appointment Type:PC Nurse Injection Appointment Date:01/24/2024 02:30:00 PM Scheduled Provider:ARGELIA DARBY DO Location:[facility] Appointment Type:PC OV Future Scheduled Tests Laboratory* Basic Metabolic Panel 12/05/23 [facility] Evaluation + Plan note Future Appointments Appointment Date:12/19/2023 02:15:00 PM Scheduled Provider: Location:[facility] Appointment Type:PC Nurse Injection Appointment Date:01/24/2024 02:30:00 PM Scheduled Provider:ARGELIA DARBY DO Location:[facility] Appointment Type:PC OV [facility] Evaluation + Plan note Future Appointments Appointment Date:03/13/2024 03:00:00 PM Scheduled Provider:ARGELIA DARBY DO Location:[facility] Appointment Type:PC OV Future Scheduled Tests Laboratory* Basic Metabolic Panel 03/13/24 [facility] Evaluation + Plan note Future Appointments Appointment Date:03/13/2024 03:00:00 PM Scheduled Provider:ARGELIA DARBY DO Location:[facility] Appointment Type:PC OV Diagnostic Tests Pending * Osmolality Urine 03/03/24 Future Scheduled Tests Laboratory* Basic Metabolic Panel 03/13/24 [facility] Evaluation + Plan note Future Appointments Appointment Date:04/24/2024 02:30:00 PM Scheduled Provider:ARGELIA DARBY DO Location:[facility] Appointment Type:PC OV Future Scheduled Tests Laboratory* Basic Metabolic Panel 03/13/24 [facility] evaluation + Plan note Future Appointments Appointment Date:06/10/2024 01:00:00 PM Scheduled Provider:ARGELIA DARBY DO Location:[facility] Appointment Type:PC OV Future Scheduled Tests Laboratory* Basic Metabolic Panel 03/13/24 [facility] Evaluation + Plan note Future Appointments Appointment Date:08/01/2024 12:30:00 PM Scheduled Provider:ARGELIA DARBY DO Location:[facility] Appointment Type:PC Wellness Medicare Future Scheduled Tests Laboratory* Basic Metabolic Panel 03/13/24 [facility] evaluation + Plan note Future Appointments Appointment Date:10/03/2024 01:30:00 PM Scheduled Provider:ARGELIA DARBY DO Location:[facility] Appointment Type:PC OV Future Scheduled Tests Laboratory* Basic Metabolic Panel 03/13/24 [facility] evaluation + Plan note Future Appointments Appointment Date:12/18/2024 02:30:00 PM Scheduled Provider:ARGELIA DARBY DO Location:[facility] Appointment Type:PC OV Future Scheduled Tests Laboratory* Basic Metabolic Panel 03/13/24 [facility] evaluation note* Diagnosis Onset Date Resolution Status COVID-[address] [facility] Work Phone: evaluation note* Diagnosis Onset Date Resolution Status COVID-19 acute Hyponatremia acute Anxiety acute COVID-19 acute Debility acute Depression acute Hyperlipidemia acute Hypomagnesemia acute Hyponatremia acute Osteoarthritis acute HTN (hypertension) chronic [facility] Work Phone: evaluation note* Diagnosis Onset Date Resolution Status COVID-19 resolved Hyponatremia resolved HTN (hypertension) chronic Hyperlipidemia chronic Anxiety resolved COVID-19 resolved Hypomagnesemia resolved Hyponatremia resolved Vertigo acute CAD (coronary artery disease) chronic HTN (hypertension) chronic Hyperlipidemia chronic [facility] Work Phone: evaluation note* Diagnosis Urinary retention- Primary Unspecified retention of urine [facility] Urinary retention- Primary Unspecified retention of urine [facility] encounter [facility] Author Sandro Jackman [facility] Note Date/Time December 06, 2024 7:0 9pm [facility] Medical Records Department [address] [place] [address] H&P Exam - Hospitalist 12/06/24 1852 MR#: [id number] Acct: [id number] Name: JERO LEWIS Meenakshi Rep #:[id number] : 1945 79 From: Sandro Jackman MD PCP: Dr. Argelia Darby DO Status:ADM IN Location: [facility] [id number] HPI - General General Date of Admission: 12/06/24 Date of Service: 12/06/24 Chief Complaint: Acute fall HPI Narrative JERO XI, is a 79 F with past medical [...] fracture, Cervical spine fracture, Or intracranial bleed [facility] Medical History Allergic rhinitis Anxiety and depression CAD (coronary artery disease) [place] disease Chronic hyponatremia COVID-19 Debility Depression Dizziness [...] 1 tab PO BID 3 Unknown History rv-fxem-ezim-joseph-boron chew tablet (Caltrate 600-D Plus Minerals) cyanocobalamin [...] (cerebral vascular accident) Father Kimberlee disease Son [place] disease Brother Heart disease Hypertension Daughter Lupus [...] 85.3 H, Lymph % (Auto) 8.6 L, [place] % (Auto) 4.0, Eos % (Auto) 1.3, [...] acute intracranial abnormality. Senescent changes. Reading Location: [facility] Cervical Spine CT 12/06/24 16:41 IMPRESSION: No evidence of acute cervical spine fracture. Demineralization does limit sensitivity One or more dose reduction techniques were used (e.g., Automated exposure control, adjustment of the mA and/or kV according to patient size, use of iterative reconstruction technique). Reading Location: [facility] Facial/Sinus 12/06/24 16:41 IMPRESSION: No evidence of acute facial fracture. Senescent changes. One or more dose reduction techniques were used (e.g., Automated exposure control, adjustment of the mA and/or kV according to patient size, use of iterative reconstruction technique). Reading Location: [facility] Chest X-Ray 12/06/24 17:10 IMPRESSION: No acute findings. Senescent changes. Mild cardiac enlargement. Reading Location: [facility] Knee X-Ray 12/06/24 17:10 IMPRESSION: Acute patellar fracture on background demineralization. Reading Location: [facility] Echocardiogram 09/26/2023: Interpretation Summary The [...] 06/25/2024: Interpretation: [place] a [place] 46776 beats recorded over the 24 hour period. [...] test. 7 DAY EVENT MONITOR 12/20/22-12/26/22: IMPRESSION monitoring specialist significant for normal sinus rhythm background and [...] Jackman MD; Dr. Argelia Darby, DO~ Signed [facility] Work Phone: Hospital course Narrative No data available for this section [facility] Discharge instructions No data available for this section [facility] Discharge instructions Additional Instructions Discharge home alone 08/14/2023, Radius PT, [facility] Work Phone: Progress note No data available for this section [facility] Reason for referral (narrative)No reason for referral information [facility]WS[facility] Work Phone: Chief Complaint and [...] COVID HYPONATREMIA, COVID HYPONATREMIA, COVID HYPONATREMIA/COVID HTN ([facility] / SELF) Atherosclerotic heart disease of [place] coronary a Amb Documentation Reason for Visit [...] m LABOWRK February 18, 2025 5:00a m [facility] April 09, 2025 5: 00am [...] Date/ Time Name of Medical Power of Manager Salt maxim lewis July 27, 2023 11:57pm Advance Directives Yes July 26, 2015 7:47am Living Will Yes July 27 11:57pm Power of Manager Salt Yes July 27, 2023 11:57pm Advance Directive Response Recorded Date/ Time Name of Medical Power of Manager Salt Maxim Lewis, son August 01, 2023 4:35pm Advance Directives Yes July 26, 2015 7:47am Living Will Yes August 01 4:35pm Power of Manager Salt Yes August 01, 2023 4:35pm Name of Medical Power of Manager Salt maxim lewis July 27, 2023 11:57pm Advance Directive Response Recorded Date/ Time Advance Directives Yes July 26, 2015 8:47am Advance Directive Response Recorded Date/ Time Living Will Yes December 06, 2024 8:05pm Do you have a Healthcare Power of Manager Salt? Yes December 06, 2024 8:05pm Name of Medical Power of Manager Salt Maxim Jeffries December 06, 2024 8:05pm Advance Directives Yes July 26, 2015 8:47am Advance Directive Response Recorded Date/ Time Do you have a Healthcare Pow er of Manager Salt? Yes May 03, 2025 5:21pm Living Will Yes December 12, 2024 12:07pm Do you have a Healthcare Pow er of Manager Salt? Yes December 12, 2024 12:07pm Name of Medical Power of Manager Salt Maxim Lewis, son December 12, 2024 12:07pm Advance Directives Yes [...] DO Primary Care Provider Active Jesus Woodard MACHINE PACK ASSEMBLER, MACHINE PACK ASSEMBLER-C Attending Provider Active Team Status: Inactive Member [...] 2024 End: December 11, 2024 Dr. Orville Coretz MD Emergency Provider Active S tart: December [...] Provider Active St art: December 11, 2024 Senior Officer Relationship Specialty Start Date End Date Artur Georges MD [address] [place] [address] Surgeon Urology 01/19/25 Senior Officer Relationship Specialty Start Date End Date Artur Georges MD [address] [place] [address] Surgeon Urology 01/19/25 Senior Officer Relationship Specialty Start Date End Date Artur Georges MD [address] [place] [address] Surgeon Urology 01/19/25 Senior Officer Relationship Specialty Start Date End Date Artur Georges MD [address] [place] [address] Surgeon Urology 01/19/25 Team Status: Active Member [...] Darby DO Primary Care Provider Active Start: April [...] Nurse Med Service: Active Provider Member Role: Farebox Repairer Address: Address: [address] [place] [address] [place] [address]- Name: ARGELIA DARBY DO Position: P4 Physician - Primary Care Med Service: Active Provider Member Role: Primary Care Physician Address: Address: [address] [facility] [place] [address]- [place] Name: KRISTIN REYES MD Position: Physician Med Service: Orthopedic Member Role: Orthopaedist Address: Address: [address] [place] [address] [place] [address]- [place] Name: JONEL MALIN Member Role: Construction Scheduler Care Team Related Persons Name: MAXIM LEWIS Name: REJI LEWIS Care Team Personnel Name: SHAYNE GONZALEZ Position: P4 Advanced Practice Nurse Med Service: Active Provider Member Role: Farebox Repairer Address: Address: [address] [place] [address] Name: ARGELIA DARBY DO Position: P4 Physician - Primary Care Med Service: Active Provider Member Role: Primary Care Physician Address: Address: [address] [place] [address] Name: KRISTIN REYES MD Position: Physician Med Service: Orthopedic Member Role: Orthopaedist Address: Address: [address] [place] [address] Name: JONEL MALIN Role: Construction Scheduler Care Team Related Persons Name: MAXIM LEWIS Name: REJI LEWIS Care Team Personnel Name: SHAYNE GONZALEZ Position: P4 Advanced Practice Nurse Member Role: Farebox Repairer Address: Address: [address] [place] [address] Name: ARGELIA DARBY DO Position: P4 Physician - Primary Care Member Role: Primary Care Physician Address: Address: [address] [place] [address] Name: KRISTIN REYES MD Position: Physician Member Role: Orthopaedist Address: Address: [address] [place] [address] Name: JONEL MALIN Role: Construction Scheduler Care Team Related Persons Name: MAXIM LEWIS Name: REJI LEWIS INFORMATION SOURCE (unrecogn ized section and content) DATE CREATED AUTHOR 05/24/2024 [facility] DATE CREATED AUTHOR AUTHOR'S ORGANIZ ATION 11/09/2024 [facility] DATE CREATED AUTHOR AUTHOR'S ORGANIZ ATION 05/20/2025 [facility] DATE CREATED AUTHOR AUTHOR'S ORGANIZ ATION 08/03/2025 [facility] Goals (unrecognized section and content) Goals [...] BE BASED ON THE PRIMARY CLINICAL RECORDS. [facility]. provides no warranty or guarantee of the accuracy or completeness of information in this document.
[2025-09-08 09:26] LABS: Hematocrit 36.3 % (37-47); Hemoglobin 11.8 g/dL (12.0-15.0); Mean Corp Hgb Conc 32.5 g/dL (32-36); Mean Corpuscular Volume 91.4 fL (81-99); Mean Platelet Vol. 9.9 fl (6.2-12.0); Platelet Count 284 K/mm3 (150-450); RBC Distribution Width CV 12.7 % (11.6-14.6); RBC Distribution Width SD 42.3 fl (35.1-43.9); Red Blood Count 3.97 M/mm3 (4.2-5.4); White Blood Count 4.3 K/mm3 (4.4-11.0)
[2025-09-08 09:32] LABS: AST(SGOT) 18 U/L (<=31); Alanine Aminotransfer ALT/SGPT 12 U/L (<=34); Albumin, Serum 3.5 g/dL (3.4-4.8); Alkaline Phosphatase 60 U/L (35-104); Anion Gap 6 (5-15); BUN 18 mg/dL (4-19); BUN/Creat Ratio 37.2 RATIO (10-20); Calcium,Total 9.2 mg/dL (7.6-11.0); Carbon Dioxide 28.2 mmol/L (21.0-32.0); Chloride 105 mmol/L (98-108); Globulin 2.4 g/dL (2.2-4.2); Glucose 93 mg/dL (70-99); Potassium 3.8 mmol/L (3.3-5.1)
== END ==
LOC: OLS.ACH 04:00
PROVIDERS: PCP Family Medicine; Referring Provider Internal Medicine; Visit Provider Internal Medicine
DX: E87.1 Hypo-osmolality and hyponatremia (principal); D51.9 Vitamin B12 deficiency anemia, unspecified
CPT/HCPCS: 36415; 80053; 85027